=== PATIENT | female | born 2000 | race Native Hawaiian/Other Pacific Islander ===

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

== ENCOUNTER 2019-01-27 11:50 | Inpatient (IN) | payer OTHER ==
[~2019-01-27] VITALS: Ht 147.3 cm; Wt 37.6 kg
--- OUTSIDE RECORDS SUMMARY | ~2019-01-27 | XMS | Encounter Summary ---
Demographics + + + | Address | [address] | | | [place] [address] | + + + | Home Phone | | + + + | Preferred Language | Unknown | + + + | Marital Status | Single | + + + | Latter-Day Affiliation | Unknown | + + + | Race | or | + + + | Ethnic Group | Not or | + + + Author + + + | Author | [facility] | + + + | Organization | [facility] | + + + | Address | Unknown | + + + | Phone | Unavailable | + + + Support + + +---------+ + | Name | Relationship | Address | Phone | + + +---------+ + | Jolie Hudson | ECON | Unknown | Unavailable | + + +---------+ + Care Team Providers + +------+ + | Care Medical Records Director Name | Role | Phone | + +------+ + | No Pcp Per Patient | PCP | Unavailable | + +------+ + Reason for Referral PROC - Outpatient Surgery (Routine) +--------+---------+ + + + + | Status | Reason | Specialty | Diagnoses / | Referred By | Referred To | | | | | Procedures | Contact | Contact | +--------+---------+ + + + + | Closed | Coded | Otolaryngolog | Diagnoses | Hullar, | Hullar, | | | | y | Perforation | Gareth E, | Gareth E, MD | | | | | of both | MD [address] | [address] | | | | | tympanic | [address] | [address] | | | | | membranes | [address] | Rd | | | | | Conductive | [place] | | | | | hearing | [phone] | [address] | | | | | loss, | Phone: | Phone: | | | | | bilateral | [phone] | [phone] | | | | | Other | Fax: | Fax: | | | | | specified | [phone] | [phone] | | | | | disorders of [...] | | | | | | | TELEGRAPH REPEATER INSTALLER | | | | | | | [place] | | | | | | | TYMPANOPLAST | | | | | | | Y [place] | | | | | | | TYMPANOPLAS/ | | | | | | | ANTROTOMY | | | | | | | [place] | | | | | | | TYMPANOPLAS/ | | | | | | | MASTOIDEC,IN | | | | | | | TACT WALL | | | | | | | [place] | | | | | | | TYMPANOPLAST | | | | | | | Y,REBLD | | | | | | | OSSIC | | | | | | | CHAIN+PROS | | | | | | | [place] | | | | | | | TYMPANOPLAS/ | | | | | | | ANTROT,REBLD | | | | | | | OSSIC+PROST | | | | | | | [place] | | | | | | | TYMPANOPLAS/ | | | | | | | MASTOID,INTC | | | | | | | T WALL,REBLD | | | | | | | [place] EAR | | | | | | | CARTILAGE | | | | | | | GRAFT TO | | | | | | | FACE [place] | | | | | | | APPL SKIN | | | | | | | GRFT FACE | | | | | | | HNDS FT TO | | | | | | | 100 SQ CM | | | | | | | FIRST 25 S* | | | | | | | [place] CREATE | | | | | | | EARDRUM | | | | | | | OPENING,GEN | | | | | | | ANESTH 90 G | | | +--------+---------+ + + + + Reason for Visit + + + | Reason | Comments | + + + | Ear problem | new pt here for ear eval | + + + Benefits Check (Routine) +--------+--------+ + + + + | Status | Reason | Specialty | Diagnoses / | Referred By | Referred To | | | | | Procedures | Contact | Contact | +--------+--------+ + + + + | Closed | | Otolaryngolog | Diagnoses | Kentrell, | Agapito, | | | | y | Acute | MD Reyes | Gareth Arevalo MD | | | | | mastoiditis | [address] | | | | | with other | Nakul Gan | [address] | | | | | complication | [place], | Rd | | | | | s, bilateral | [place] [address] | [facility], [place] | | | | | Central | Phone: | [phone] | | | | | perforation | [phone] | Phone: | | | | | of tympanic | Fax: | [phone] | | | | | membrane, | [phone] | Fax: | | | | | bilateral | | [phone] | | | | | Mixed | [...] | | ENT OTOLOGY | | | +--------+--------+ + + + + Encounter Details +--------+---------+ [...] [address] | [facility] | (Primary Dx); | | | | [facility] | [place], [place] | Conductive hearing | | | | Mailcode: PV01 | [address] | loss, bilateral | | | | [facility] | [phone] | | | | | [place], [place] | | | | | | [address] | | | | | | [phone] | | | +--------+---------+ + + + [...] on file | | + + + + + + + | Job Start Date | Occupation | Industry | + + + + | Not on file | Not on file | Not on file | + + + + + + + + | Travel History | Travel Start | Travel End | + + + + + + | No recent travel history available. | + + documented as of this encounter Last Filed Vital Signs + + + + + | Vital Sign | Reading | Time Taken | Comments | + + + + + | Blood Pressure | - | - | | + + + + + | Pulse | - | - | | + + + + + | Temperature | - | - | | + + + + + | Respiratory Rate | - | - | | + + + + + | Oxygen Saturation | - | - | | + + + + + | Inhaled Oxygen | - | - | | | Concentration | | | | + + + + + | Weight | 39 kg (86 lb) | 10/17/2017 9:06 AM | | | | | PST | | + + + + + | Height | - | - | | + + + + + | Body Mass Index | - | - | | + + + + + documented in this encounter Progress Notes Gareth Farris MD - 10/17/2017 9:30 AM PSTFormatting of this note might be different f rom the original. Division of Otology, Neurotology, and Skull Base Surgery Department of Otolaryngology/Head and Neck Surgery [facility] Patient: Milly Kelley Referring Provider: No Referring Provider Per Patient Author: GARETH FARRIS MD Consultation Date: 10/17/2017 REASON FOR VISIT: Bilateral hearing loss. HISTORY OF PRESENT ILLNESS: History of leukemia with full-body radiation. Had ear infecti ons and tubes starting at that time, . Hearing worse on the right. PAST MEDICAL HISTORY: Past Medical History: Diagnosis Date ALL (acute lymphoid leukemia) in remission ([facility]) ALL (acute lymphoid leukemia) in remission ([facility]) Cataracts, bilateral Conductive hearing loss DM (diabetes mellitus) ([facility]) Eustachian tube disorder, bilateral Radiation adverse effect [...] Program Department of Otolaryngology-Head and Neck Surgery [address], [address] [address] tel: [phone] fax: [phone] [email or web address] documented in this encounter Plan of Treatment Not on filedocumented as of this encounter Procedures + +--------+ + + + | Procedure Name | Priori | Date/Time | Associated Diagnosis | Comments | | | ty | | | | + +--------+ + + + | [place] EAR MICROSCOPY | Routin | 10/18/2017 | Perforation of | | | EXAMINATION | e | 1:04 PM | both tympanic | | | | | PST | membranes | | | | | | Conductive hearing | | | | | | loss, bilateral | | + +--------+ + + + documented in this encounter Visit Diagnoses + + | Diagnosis | + + | Perforation of both tympanic membranes - Primary Perforation of tympanic membrane, | | unspecified | + + | Conductive hearing loss, bilateral | + + documented in this encounter"
--- OUTSIDE RECORDS SUMMARY | ~2019-01-27 | XMS | Encounter Summary ---
Demographics + + + | Address | [address] | | | [place] [address] | + + + | Home Phone | | + + + | Preferred Language | Unknown | + + + | Marital Status | Single | + + + | Roman Catholic Affiliation | Unknown | + + + | Race | or | + + + | Ethnic Group | Not or | + + + Author + + + | Author | [facility] | + + + | Organization | [facility] | + + + | Address | Unknown | + + + | Phone | Unavailable | + + + Support + + +---------+ + | Name | Relationship | Address | Phone | + + +---------+ + | Jolie Hudson | ECON | Unknown | Unavailable | + + +---------+ + Care Team Providers + +------+ + | Care Industrial Electrical Engineer Name | Role | Phone | + +------+ + | No Pcp Per Patient | PCP | Unavailable | + +------+ + Encounter Details +--------+ + + + + | Date | Type | Department | Care Team | Description | +--------+ + + + + | 09/18/ | Documentati | Otolaryngology | Otology, Ent [address] | | | 2018 | on | Otology Services at | [facility] | | | | | PPV [address] [facility] | Road [place], [place] | | | | | [address] | [address] | | | | | Mailcode: [address] | | | | | | [facility] | | | | | | [place], [place] | | | | | | [address] | | | | | | [phone] | | | +--------+ + + + + Social History + +-------+ +--------+------+ | Tobacco Use | Types | Packs/Day | Years | Date | | | | | Used | | + +-------+ +--------+------+ | Never Assessed | | | | | + +-------+ +--------+------+ + + + | Sex Assigned at [...] + + documented as of this encounter Plan of Treatment Not on filedocumented as of this encounter Visit Diagnoses Not on filedocumented in this encounter"
--- OUTSIDE RECORDS SUMMARY | ~2019-01-27 | XMS | Encounter Summary ---
Demographics + + + | Address | [address] | | | [place] [address] | + + + | Home Phone | | + + + | Preferred Language | Unknown | + + + | Marital Status | Single | + + + | Mosque Affiliation | Unknown | + + + | Race | or | + + + | Ethnic Group | Not or | + + + Author + + + | Author | [facility] | + + + | Organization | [facility] | + + + | Address | Unknown | + + + | Phone | Unavailable | + + + Support + + +---------+ + | Name | Relationship | Address | Phone | + + +---------+ + | Jolie Hudson | ECON | Unknown | Unavailable | + + +---------+ + Care Team Providers + +------+ + | Care Microsoft Dynamics Ax Developer Name | Role | Phone | + +------+ + | No Pcp Per Patient | PCP | Unavailable | + +------+ + Encounter Details +--------+ + + + + | Date | Type | Department | Care Team | Description | +--------+ + + + + | 08/14/ | Document-Sc | Health Information | Unknown . | | | 2017 | anned | Services [address] | | | | | | [address] | | | | | | Road Mailcode: | | | | | | [address] [place] [address] | | | | | | [facility] | | | | | | [place], [place] | | | | | | [address] | | | | | | [phone] | | | +--------+ + + + [...] | + +--------+ + + + | RADIOLOGY | | 08/14/2017 | | Results for this | | | | 12:00 AM | | procedure are in the | | | | PST | | results section. | + +--------+ + + + documented in this encounter Results RADIOLOGY (08/14/2017 12:00 AM PST) + + + | Narrative | Performed At | + + + | | | + + + documented in this encounter Visit Diagnoses Not on filedocumented in this encounter"
--- OUTSIDE RECORDS SUMMARY | ~2019-01-27 | XMS | Encounter Summary ---
Demographics + + + | Address | [address] | | | [place] [address] | + + + | Home Phone | | + + + | Preferred Language | Unknown | + + + | Marital Status | Single | + + + | Spiritism Affiliation | Unknown | + + + | Race | or | + + + | Ethnic Group | Not or | + + + Author + + + | Author | [facility] | + + + | Organization | [facility] | + + + | Address | Unknown | + + + | Phone | Unavailable | + + + Support + + +---------+ + | Name | Relationship | Address | Phone | + + +---------+ + | Jolie Hudson | ECON | Unknown | Unavailable | + + +---------+ + Care Team Providers + +------+ + | Care Nutrition Partner Name | Role | Phone | + +------+ + | No Pcp Per Patient | PCP | Unavailable | + +------+ + Encounter Details +--------+ + + + + | Date | Type | Department | Care Team | Description | +--------+ + + + + | 11/28/ | Document-Sc | Health Information | Unknown . | | | 2017 | anned | Services [address] | | | | | | [address] | | | | | | Road Mailcode: | | | | | | [address] [place] [address] | | | | | | [place] | | | | | | [place], [place] | | | | | | [address] | | | | | | [phone] | | | +--------+ + + + [...] + + + | RADIOLOGY | | 11/28/2016 | | Results for this | | | | 12:00 AM | | procedure are in the | | | | PDT | | results section. | + +--------+ + + + | RADIOLOGY | | 11/28/2016 | | Results for this | | | | 12:00 AM | | procedure are in the | | | | PDT | | results section. | + +--------+ + + + documented in this encounter Results RADIOLOGY (11/28/2016 12:00 AM PDT) + + + | Narrative | Performed At | + + + | | | + + + RADIOLOGY (11/28/2016 12:00 AM PDT) + + + | Narrative | Performed At | + + + | | | + + + documented in this encounter Visit Diagnoses Not on filedocumented in this encounter"
--- OUTSIDE RECORDS SUMMARY | ~2019-01-27 | XMS | Encounter Summary ---
Demographics + + + | Address | [address] | | | [place] [address] | + + + | Home Phone | | + + + | Preferred Language | Unknown | + + + | Marital Status | Single | + + + | Moravian Affiliation | Unknown | + + + | Race | or | + + + | Ethnic Group | Not or | + + + Author + + + | Author | [facility] | + + + | Organization | [facility] | + [...] Team Providers + +------+ + | Care Junior Art Director Name | Role | Phone | [...] | | 2017 | anned | Services [address] | | | | | | [address] | | | | | | Road Mailcode: | | | | | | [address] [place] [address] | | | | | | [facility] | | | | | | [place], [place] | | | | | | [address] | | | | | | [phone] | | | +--------+ + + + [...]
--- OUTSIDE RECORDS SUMMARY | ~2019-01-27 | XMS | Clinical Summary ---
Demographics + + + | Address | [address] | | | [place] [address] | + + + | Home Phone | | + + + | Preferred Language | Unknown | + + + | Marital Status | Single | + + + | Restorationist Affiliation | Unknown | + + + [...] Team Providers + +------+ + | Care Financial Report Service Sales Agent Name | Role | Phone | + +------+ + | No Pcp Per Patient | PP | Unavailable | + +------+ + Source Comments GABRIELLA is fully live on both [facility] and [facility] Allergies + + + + + [...] | + + + + + + Medications + + + +---------+------+------+-------+ | Medication | Sig | Dispensed | Refills | Star | End | Statu | | | | | | t | Date | s | | | | | | Date | | | + + + +---------+------+------+-------+ | HUMALOG KWIKPEN | inject 20 to [...] | ALL (acute lymphoid leukemia) in remission | | + + + Social History + +-------+ [...] recent travel history available. | + + Last Filed Vital Signs + [...] | | + + + + + Plan of Treatment + + + + + | Health Maintenance | Due Date | Last Done | Comments | + + + + + | Pneumococcal (Adult) | | | | | (1 of 3 - PCV13) | 8 | | | + + + + + | Influenza (Flu) | | | | | vaccination (Season | 9 | | | | Ended) | | | | + + + + + Results Not on filefrom Last 3 Months Insurance + +--------+ +--------+-------+---------+--------+ | Payer | Benefi | Subscriber | Effect | Phone | Address | Type | | | t Plan | ID | venkat | | | | | | / | | Dates | | | | | | Group | | | | | | + +--------+ +--------+-------+---------+--------+ | DELIVERY LEAD MEDICAID | DELIVERY LEAD | xxxxxxxx | | | | Medica | | | [place] | | [phone] | | | id | | | [place] | | esent | | | | + +--------+ +--------+-------+---------+--------+ + +--------+ +--------+ + + | Guarantor Name | Accoun | Relation to | Date | Phone | Billing Address | | | t Type | Patient | of | | | | | | | | | | + +--------+ +--------+ + + | Milly Kelley | Person | Self [birth year] | [address] | | | al/Fam | | 1999 | [phone] | [address] [place] | | | jackie | | | [address] (Home) | [address] | + +--------+ +--------+ + +"
--- OUTSIDE RECORDS SUMMARY | ~2019-01-27 | XMS | Clinical Summary ---
Demographics + + + | Address | [address] | | | [place] [address] | + + + | Home Phone | | + + + | Preferred Language | Unknown | + + + | Marital Status | Single | + + + | Shinto Affiliation | 1013 | + + + | Race | Unknown | + + + | Ethnic Group | Unknown | + + + Author + + + | Author | [facility] | | | and [place] | + + + | Organization | 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 | | | | | 18 | | + + + + + + | Penicillins | Hives | Low | 03/17/20 | | | | | | 14 | | + + + + + + | Sulfa Antibiotics | Hives, Shortness Of | High | 01/06/20 | Per mom Heather | | | Breath | | 18 | | + + + + + + | Insulin Degludec | Hives | Medium | 05/25/20 | Hives at injection | | | | | 18 | site | + + + + + + | Vancomycin | Other (See Comments) | | 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 | | | | | e | | (ADEKS) chewable | | | | | | | | tabletIndications: | | | | | | | | Recurrent | | | | | | | | pancreatitis | | | | | | | + + + +---------+------+------+-------+ | ergocalciferol | Take 1 capsule by | 30 | 0 | 04/3 | | Activ | | (VITAMIN D2) [id number] | mouth Once a week. | capsule | | 0/20 | | e | | units capsule | | | | 18 | | | + + + +---------+------+------+-------+ | fenofibrate | Take 1 tablet by | 30 | 0 | 04/2 | | Activ | | (LOFIBRA, TRIGLIDE) | mouth Daily. | tablet | | 6/20 | | e | | 160 mg tablet | | | | 18 | | | + + + +---------+------+------+-------+ | atorvaSTATin | Take 1 tablet by | 30 | 0 | 04/2 | | Activ | | (LIPITOR) 80 MG | mouth nightly. | tablet | | 5/20 | | e | | tablet | | | | 18 | | | + + + +---------+------+------+-------+ | ascorbic acid | Take 1 tablet by | 60 | 1 | 07/0 | | Activ | | (VITAMIN C) 500 MG | mouth 3 times daily. | tablet | | 4/20 | | e | | tablet | | | | 18 | | | + + + +---------+------+------+-------+ | cholecalciferol | Take 1 tablet by | 30 | 3 | 07/0 | | Activ | | (VITAMIN D-3) 2000 | mouth Daily. | tablet | | 5/20 | | e | | units TABS | | | | 18 | | | + + + +---------+------+------+-------+ | | Place 4 drops into | 30 mL | 0 | 07/0 | | Activ | | ciprofloxacin-dexame | the right ear 2 | | | 4/20 | | e | | thasone (CIPRODEX) | times daily. | | | 18 | | | | otic suspension | | | | | | | + + + +---------+------+------+-------+ | phenazopyridine | Take 1 tablet by | 30 | 0 | 07/0 | | Activ | | (PYRIDIUM) 200 mg | mouth 3 times daily | tablet | | 4/20 | | e | | tablet | as needed for | | | 18 | | | | | Urinary Symptoms. | | | | | | + + + +---------+------+------+-------+ | simethicone | Take 1 tablet by | 90 | 0 | 07/0 | | Activ | | (MYLICON) 80 mg | mouth 4 times daily | tablet | | 4/20 | | e | | chewable tablet | as needed for Gas. | | | 18 | | | + + + +---------+------+------+-------+ | atorvaSTATin | Take 1 tablet by | 30 | 0 | 07/0 | | Activ | | (LIPITOR) 80 MG | mouth nightly. | tablet | | 4/20 | | e | | tablet | | | | 18 | | | + + + +---------+------+------+-------+ | insulin detemir | Inject 20 Units | 15 mL | 0 | 07/0 | | Activ | | (LEVEMIR FLEXPEN) | under the skin | | | 4/20 | | e | | 100 units/mL | nightly. | | | 18 | | | | injection (pen) | | | | | | | + + + +---------+------+------+-------+ | insulin lispro | Inject 7 Units under | 15 mL | 0 | 07/0 | | Activ | | (HUMALOG KWIKPEN) | the skin 3 times | | | 4/20 | | e | | 100 units/mL | daily (before | | | 18 | | | | injection (pen) | meals). | | | | | | + + + +---------+------+------+-------+ | ONE TOUCH | by Does not apply | 100 | 11 | 07/0 | | Activ | | ULTRASOFT LANCETS | route 4 times daily. | each | | 4/20 | | e | | MISC | | | | 18 | | | + + + +---------+------+------+-------+ | glucose blood | ... | 100 | 0 | 07/0 | | Activ | | test strips strip | | each | | 4/20 | | e | | | | | | 18 | | | + + + +---------+------+------+-------+ | rosuvastatin | Take 10 mg by mouth | | 0 | | | Activ | | (CRESTOR) 10 mg | nightly. | | | | | e | | tablet | | | | | | | + + + +---------+------+------+-------+ | estradiol | Take 1 tablet by | 30 | 6 | 04/17 | 04/17 | Activ | | (ESTRACE) 1 mg | mouth Daily. | tablet | | 0/20 | 0/20 | e | | tabletIndications: | | | | 18 | 19 | | | Uncontrolled type 1 | [...] Noted Date | + + + | Diabetic ketoacidosis with coma associated with type 1 diabetes | 03/14/2018 | | mellitus | | + + + + + | Last Assessment & Plan: | + + + + + | History of acute pancreatitis | 03/14/2018 | + + + + + | Overview: recurrent; associated with elevated triglycerides | | Last Assessment & Plan: | + + + + + | Diabetic ketoacidosis without coma associated with type 1 | 01/05/2018 | | diabetes mellitus | | + + + | Abnormal renal function | 01/04/2018 | + + + | Acute pancreatitis | 01/03/2018 | + + + + + | Last Assessment & Plan: The patient has had 24 hours of | | severe abdominal pain with intractable nausea and vomiting. She | | has a history of recurrent pancreatitis and has been hospitalized | | a couple different times in the past for this. She is | | transferred from [facility] facility with elevated lipase of 3900. | | Her triglycerides are elevated at 13,000 after 4 dilutions. She | | has been transferred here for therapeutic apheresis and | | nephrology has been consulted. In the interim the patient will | | be vigorously IV fluid resuscitated. She's been placed on | | insulin drip. She will be kept nothing by mouth. Analgesia and | | antiemetics will be offered. I have also ordered a CT scan of | | the abdomen and pelvis for further characterization of the | | abdominal pain. | + + + + + | SIRS (systemic inflammatory response syndrome) | 01/03/2018 | + + + + + | Last Assessment & Plan: The patient meets qualifiers for | | systemic inflammatory response syndrome secondary to her | | pancreatitis. She is quite tachycardic and uncomfortable. Rule | | out definitive sepsis as able. Blood cultures and urine will be | | collected. | + + + + + | Noncompliance with therapeutic plan | 01/03/2018 | + + + + + | Last Assessment & Plan: Per note dictation by endocrinology | | the patient appears to be relatively noncompliant. I question | | whether there may be difficulty with comprehension of the | | therapeutic plan. Will order diabetic education while she is | | here again. | + + + + + | Hyponatremia | 01/03/2018 | + + + + + | Last Assessment & Plan: Hypovolemic hyponatremia related to | | dehydration and hyperglycemia. This appears relatively acute. | | Vigorous volume resuscitation will ensue. | + + + + + | Hypertriglyceridemia | 01/03/2018 | + + + + + | Last Assessment & Plan: | + + + + + | BLANK (acute kidney injury) | 01/03/2018 | + + + + + | Last Assessment & Plan: | + + + + + | Metabolic acidosis | 01/03/2018 | + + + | Vitamin D deficiency | 04/25/2014 | + + + + + | Last Assessment & Plan: Reinstitute vitamin D as she has been | | deficient in the past. Levels will also be reassessed. | + + + + + | Dyslipidemia | 03/24/2014 | + + + + + | Last Assessment & Plan: The patient has a long-standing | | history of dyslipidemia with elevated total cholesterol and | | elevated triglycerides. She was supposed to be taking Lipitor | | but is never filled this prescription. She was started on | | high-dose Lipitor here. We'll also add separate after she is | | starting to feel better. She will need dietary discussions | | ongoing. | + + + + + | Type I (juvenile type) diabetes mellitus without mention of | 03/17/2014 | | complication, uncontrolled | | + + + + + | Overview: ICD-10 Record update Last Assessment & Plan: | | Type I diabetic with poor compliance and hemoglobin A1c of 14. 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 | | Hemoglobin A1c has repeatedly been greater than 14. Please see | | endocrinology notes. Diabetic education will be ordered. | | Currently insulin drip will be instituted. | + + + + + | Recurrent pancreatitis | 03/17/2014 | + + + | Short stature | 03/17/2014 | + + + | Other anterior pituitary disorders | 03/17/2014 | + + + Encounters +--------+ + + + + | Date | Type | Specialty | Care Team | Description | +--------+ + + + + | 11/06/ | Telephone | | [place], | Diabetes | | 2019 | | | MD [facility] | | +--------+ + + + + from [...] | | | + +---+---+---+ + + +---------+ + | Alcohol Use | Drinks/We | oz/Week | Comments | | | ek | | | + + +---------+ + | No | | | | + + +---------+ + + + + | Sex Assigned at [...] + + + | Blood Pressure | 110/68 | 05/14/2018 1506 PDT | + + + + | Pulse | 100 | 05/14/20181505 PDT | + + + + | Temperature | 36 C (96.8 F) | 03/18/20181528 PDT | + + + + | Respiratory Rate | 18 | 03/18/20181528 PDT | + + + + | Oxygen Saturation | 98% | 03/18/20181528 PDT | + + + + | Inhaled Oxygen | - | - | | Concentration | | | + + + + | Weight | 39.8 kg (87 lb 12.8 | 05/14/20181505 PDT | | | oz) | | + + + + | Height | 151 cm (4' 11.45") | 05/14/2018 1506 PDT | + + + + | Body Mass Index | 17.47 | 05/14/20186 PDT | + + + + Plan of Treatment +--------+---------+ + + + | Date | Type | Specialty | Care Team | Description | +--------+---------+ + + + | 02/04/ | Office | | Mario Mathur, | | | 2018 | Visit | | [place] [address] | | | | | | [place] | | | | | | [address] | | | | | | | | +--------+---------+ + + + | 02/04/ | Office | | | | | 2019 | Visit | | | | +--------+---------+ + + + + + + + + | Health Maintenance | Due Date | Last Done | Comments | + + + + + | Well Child Check | | | | | | 2 | | | + + + + + | Vaccine: HPV (1 - | | | | | Female 3-dose | 4 | | | | series) | | | | + + + + + | Diabetic Eye Exam | | | | | | 7 | | | + + + + + | Diabetic Foot Exam | | | | | | 7 | | | + + + + + | Vaccine: | | | | | Dtap/Tdap/Td (1 - | 8 | | | | Tdap) | | | | + + + + + | Vaccine: | | | | | Pneumococcal 19-64 | 8 | | | | (PPSV23 only) Medium | | | | | Risk (1 of 1 - | | | | | PPSV23) | | | | + + + + + | Hemoglobin A1c | | 05/14/2018, 01/03/2018, | | | Screening | 8 | 07/17/2017, Additional history | | | | | exists | | + + + + + | Vaccine: Influenza | | | | | (Season Ended) | 9 | | | + + + + + Results Not on filefrom Last 3 Months Insurance + +--------+ +--------+ +---------+--------+ | Payer | Benefi | Subscriber | Effect | Phone | Address | Type | | | t Plan | ID | venkat | | | | | | / | | Dates | | | | | | Group | | | | | | + +--------+ +--------+ +---------+--------+ | [employer] | MODA | [id number] | | [phone] | | Medica | | MEDICAID HMO | HEALTH | | 018-Pr | 1 | | id | | | MDCD | | esent | | | | | | [place]MO [place] | | | | | | + +--------+ +--------+ +---------+--------+ | [employer] | IHS | [id number] | | | | Indemn | | SERVICE | YELLOW | | 999-Pr | | | ity | | | HAWK | | esent | | | | + +--------+ +--------+ +---------+--------+ + +--------+ +--------+ + + | Guarantor Name | Accoun | Relation to | Date | Phone | Billing Address | | | t Type | Patient | of | | | | | | | | | | + +--------+ +--------+ + + | HEATHER HUASIN | Person | Mother | [birth year] | [address] | | | al/Fam | | 1979 | [phone] | [address] [place] | | | jackie | | | 5 (Home) | [address] | + +--------+ +--------+ + + Advance Directives Patient has advance care planning documents, and code status on file. For more information, please contact:[facility] [place] [place] [address] + + + + + | Code Status | Date | Date | Comments | | | Activated | Inactivated | | + + + + + | Full Code | 03/17/2018 | 03/18/2018 | | | | 12:12 | 19:32 | | + + + + + + + + +---+ | | | | | + + + +---+ | Full Code | 03/14/2018 | 03/17/2018 | | | by default | 20:51 | 12:12 | | | - TBD | | | | + + + +---+ + + + +---+ | | | | | + + + +---+ | Full Code | 01/03/2018 | 01/07/2018 | | | | 16:31 | 13:27 | | + + + +---+
--- OUTSIDE RECORDS SUMMARY | ~2019-01-27 | XMS | Encounter Summary ---
Demographics + + + | Address | [address] | | | [place] [address] | + + + | Home Phone | | + + + | Preferred Language | Unknown | + + + | Marital Status | Single | + + + | Anabaptist Affiliation | Unknown | + + + | Race | or | + + + | Ethnic Group | Not or | + + + Author + + + | Author | [facility] | + + + | Organization | [facility] | + [...] Team Providers + +------+ + | Care Dowel Pin Man Name | Role | Phone | + [...] | | 2017 | anned | Services [address] | | | | | | [address] [place] | | | | | | Road Mailcode: | | | | | | [address] [place] [address] | | | | | | [facility] | | | | | | [place], [place] | | | | | | [address] | | | | | | [phone] | | | +--------+ + + + [...]
--- OUTSIDE RECORDS SUMMARY | ~2019-01-27 | XMS | Encounter Summary ---
Demographics + + + | Address | [address] | | | [place] [address] | + + + | Home Phone | | + + + | Preferred Language | Unknown | + + + | Marital Status | Single | + + + | Confucianist Affiliation | Unknown | + + + | Race | or | + + + | Ethnic Group | Not or | + + + Author + + + | Author | [facility] | + + + | Organization | [facility] | + [...] Team Providers + +------+ + | Care Clamshell Operator Name | Role | Phone | [...] on | Otology Services at | [facility] | | | | | PPV [address] [facility] | Road [place], [place] | | | | | [facility] [address] | [address] | | | | | Mailcode: PV01 | | | | | | [facility] | | | | | | [place], [place] | | | | | | [address] | | | | | | [phone] | | | +--------+ + + + [...]
--- OUTSIDE RECORDS SUMMARY | ~2019-01-27 | XMS | Encounter Summary ---
Demographics + + + | Address | [address] | | | [place] [address] | + + + | Home Phone | | + + + | Preferred Language | Unknown | + + + | Marital Status | Single | + + + | Voodoo Affiliation | Unknown | + + + | Race | or | + + + | Ethnic Group | Not or | + + + Author + + + | Author | [facility] | + + + | Organization | [facility] | + [...] Team Providers + +------+ + | Care Wagon Washer Name | Role | Phone | + [...] | | | | | hearing | [phone] | [address] | | | | | loss, | Phone: | Phone: | | | | | bilateral | [phone] | [phone] | | | | | Other | Fax: | Fax: | | | | | specified | [phone] | [phone] | | | | | disorders of [...] | | | | | | | BANQUET [place] COOK | | | | | | | [place] | | | | | | | TYMPANOPLAST | | | | | | | Y [place] | | | | | | | TYMPANOPLAS/ | | | | | | | ANTROTOMY | | | | | | | [place] | | | | | | | TYMPANOPLAS/ | | | | | | | MASTOIDEC,IN | | | | | | | TACT WALL | | | | | | | [place] | | | | | | | TYMPANOPLAST | | | | | | | Y,REBLD | | | | | | | OSSIC | | | | | | | CHAIN+PROS | | | | | | | [place] | | | | | | | TYMPANOPLAS/ | | | | | | | ANTROT,REBLD | | | | | | | OSSIC+PROST | | | | | | | [place] | | | | | | | TYMPANOPLAS/ | | | | | | | MASTOID,INTC | | | | | | | T WALL,REBLD | | | | | | | NC EAR | | | | | | | CARTILAGE | | | | | | | GRAFT TO | | | | | | | FACE NC | | | | | | | APPL SKIN | | | | | | | GRFT FACE | | | | | | | HNDS FT TO | | | | | | | 100 SQ CM | | | | | | | FIRST 25 S* | | | | | | | NC CREATE | | | | | | [...] | | | | | complication | [place], | Rd | | | | | s, bilateral | [place] [address] | [facility], [place] | | | | | Central | Phone: | [phone] | | | | | perforation | [phone] | Phone: | | | | | of tympanic | Fax: | [phone] | | | | | membrane, | [phone] | Fax: | | | | | bilateral | | [phone] | | | | | Mixed | [...] | PPV [address] | [facility] | (Primary Dx); | | | | [facility] | [place], [place] | Conductive hearing | | | | Mailcode: PV01 | [phone] | loss, bilateral | | | | [facility] | [phone] | | | | | [place], [place] | | | | | | [address] | | | | | | [phone] | | | +--------+---------+ + + + [...] Surgery Department of Otolaryngology/Head and Neck Surgery [facility] Patient: Milly Kelley Referring Provider: [...] (acute lymphoid leukemia) in remission ([facility]) ALL (acute lymphoid leukemia) in remission ([facility]) Cataracts, bilateral Conductive hearing loss DM (diabetes mellitus) ([facility]) Eustachian tube disorder, bilateral Radiation [...] Program Department of Otolaryngology-Head and Neck Surgery [address], [address] [address] tel: [phone] fax: [phone] [email or web address] documented in this encounter Plan of Treatment Not on filedocumented as of this encounter Procedures + +--------+ + + + | Procedure Name | Priori | Date/Time | Associated Diagnosis | Comments | | | ty | | | | + +--------+ + + + | NC EAR MICROSCOPY | Routin | 10/18/2017 | [...]
--- OUTSIDE RECORDS SUMMARY | ~2019-01-27 | XMS | Encounter Summary ---
Demographics + + + | Address | [address] | | | [place] [address] | + + + | Home Phone | | + + + | Preferred Language | Unknown | + + + | Marital Status | Single | + + + | Mandaeism Affiliation | 1013 | + + + | Race | Unknown | + + + | Ethnic Group | Unknown | + + + Author + + + | Author | [facility] | | | and [place] | + + + | Organization | [facility] | | | and [place] | + + + | Address | Unknown | + + + | Phone | Unavailable | + + + Support + + + + + | Name | Relationship | Address | Phone | + + + + + | Nino Vasquez | [place] | [address] | | | | | [place] | | | | | [address] | | + + + + + Care Team Providers + +------+ + | Care President Educational Institution Name | Role | Phone | + +------+ + | Kashif Saldana DO | PCP | | + +------+ + Reason for Visit + + + | Reason | Comments | + + + | Diabetes | | + + + Encounter Details +--------+ + + + + | Date | Type | Department | Care Team | Description | +--------+ + + + + | 11/06/ | Telephone | Pediatric | [place], | Diabetes | | 2019 | | Endocrinology & | MD [facility] [address] | | | | Diabetes [address] | | | | | [address] | [place] [address] | | | | | [place], [place] | [phone] | | | | | [address] | | | | | | [phone] | | | +--------+ + + + [...] + + documented as of this encounter Functional Status + + + + | Functional Status | Response | Date of Assessment | + + + + | Are you deaf or do you have serious | No | 03/16/2018 | | difficulty hearing? | | | + + + + | Are you blind or do you have serious | No | 03/16/2018 | | difficulty seeing, even when wearing | | | | glasses? | | | + + + + | Do you have serious difficulty walking or | No | 03/16/2018 | | climbing stairs? (5 years old or older) | | | + + + + | Do you have difficulty dressing or bathing? | No | 03/16/2018 | | (5 years old or older) | | | + + + + | Because of a physical, mental, or emotional | Yes | 03/16/2018 | | condition, do you have difficulty doing | | | | errands alone such as visiting a doctor's | | | | office or shopping? [15 years old or | | | | older)] | | | + + + + + + + + | Cognitive Status | Response | Date of Assessment | + + + + | Because of a physical, mental, or emotional | No | 03/16/2018 | | condition, do you have serious difficulty | | | | concentrating, remembering, or making | | | | decisions? (5 years old or older) | | | + + + + documented as of this encounter Plan of Treatment +--------+---------+ + + + | Date | Type | Specialty | Care Team | Description | +--------+---------+ + + + | 02/04/ | Office | Endocrinology | Mario Mathur, | | | 2018 | Visit | | [place] [address] | | | | | | [place] | | | | | | [address] | | | | | | | | +--------+---------+ + + + | 02/04/ | Office | Endocrinology | | | | 2019 | Visit | | | | +--------+---------+ + + + documented as of this encounter Visit Diagnoses Not on filedocumented in this encounter"
--- OUTSIDE RECORDS SUMMARY | ~2019-01-27 | XMS | Encounter Summary ---
Demographics + + + | Address | [address] | | | [place] [address] | + + + | Home Phone | | + + + | Preferred Language | Unknown | + + + | Marital Status | Single | + + + | Episcopalian Affiliation | Unknown | + + + | Race | or | + + + | Ethnic Group | Not or | + + + Author + + + | Author | [facility] | + + + | Organization | [facility] | + + + | Address | Unknown | + + + | Phone | Unavailable | + + + Support + + +---------+ + | Name | Relationship | Address | Phone | + + +---------+ + | Jolei Hudson | ECON | Unknown | Unavailable | + + +---------+ + Care Team Providers + +------+ + | Care Reel Film Inspector Name | Role | Phone | + [...] on | Otology Services at | [facility] | | | | | P[facility] [address] [facility] | Road [place], [place] | | | | | [facility] [address] [address] | [address] | | | | | Mailcode: PV01 | | | | | | [facility] | | | | | | [place], [place] | | | | | | [address] | | | | | | [phone] | | | +--------+ + + + [...]
--- OUTSIDE RECORDS SUMMARY | ~2019-01-27 | XMS | Encounter Summary ---
Demographics + + + | Address | [address] | | | [place] [address] | + + + | Home Phone | | + + + | Preferred Language | Unknown | + + + | Marital Status | Single | + + + | Sikh Affiliation | Unknown | + + + | Race | or | + + + | Ethnic Group | Not or | + + + Author + + + | Author | [facility] | + + + | Organization | [facility] | + + [...] Team Providers + +------+ + | Care Birthing Nurse Name | Role | Phone | + [...] | | 2017 | anned | Services [address] | | | | | | [address] | | | | | | Road Mailcode: | | | | | | [address] [place] [address] | | | | | | [facility] | | | | | | [place], [place] | | | | | | [address] | | | | | | [phone] | | | +--------+ + + + [...]
--- OUTSIDE RECORDS SUMMARY | ~2019-01-27 | XMS | Encounter Summary ---
Demographics + + + | Address | [address] | | | [place] [address] | + + + | Home Phone [...] + + | Author | [facility] | + + + | Organization | [facility] | + + + | Address | Unknown | + + + | Phone | Unavailable | + + + Support + + +---------+ + | Name | Relationship | Address | Phone | + + +---------+ + | Jolie Hudson | ECON | Unknown | Unavailable | + + +---------+ + Care Team Providers + +------+ + | Care Hand Etcher Helper Name | Role | Phone | [...] | | | | | hearing | [phone] | [phone] | | | | | loss, | Phone: | Phone: | | | | | bilateral | [phone] | [phone] | | | | | Other | Fax: | Fax: | | | | | specified | [phone] | [phone] | | | | | disorders of [...] | | | | | | | ARTIFICIAL LEATHER CALENDER OPERATOR | | | | | | | [...] | | | | | complication | [place], | Rd | | | | | s, bilateral | [place] [address] | [facility], [place] | | | | | Central | Phone: | [phone] | | | | | perforation | [phone] | Phone: | | | | | of tympanic | Fax: | [phone] | | | | | membrane, | [phone] | Fax: | | | | | bilateral | | [phone] | | | | | Mixed | [...] | [facility] [address] | [facility] | (Primary Dx); | | | | [facility] | [place], [place] | Conductive hearing | | | | Mailcode: PV01 | [phone] | loss, bilateral | | | | [facility] | [phone] | | | | | [place], [place] | | | | | | [address] | | | | | | [phone] | | | +--------+---------+ + + + [...] Surgery Department of Otolaryngology/Head and Neck Surgery [facility] Patient: Milly Kelley Referring Provider: [...] Program Department of Otolaryngology-Head and Neck Surgery [address], [address] [address] tel: [phone] fax: [phone] [email or web address] documented in this encounter Plan of Treatment [...]
--- OUTSIDE RECORDS SUMMARY | ~2019-01-27 | XMS | Encounter Summary ---
Demographics + + + | Address | [address] | | | [place] [address] | + + + | Home Phone | | + + + | Preferred Language | Unknown | + + + | Marital Status | Single | + + + | Mu-Ism Affiliation | 1013 | + + + | Race | Unknown | + + + | Ethnic Group | Unknown | + + + Author + + + | Author | [facility] | | | and [place] | + + + | Organization | [facility] | | | and [place] | + + + | Address | Unknown | + + + | Phone | Unavailable | + + + Support + + + + + | Name | Relationship | Address | Phone | + + + + + | Nino Vasquez | [place] | [address] | | | | | [place] | | | | | [address] | | + + + + + Care Team Providers + +------+ + | Care Coil Winding Machines Set Up Mechanic Name | Role | Phone | + [...] | [address] | [place] [address] | | | | | [place], [place] | [phone] | | | | | [address] | | | | | | [phone] | | | +--------+ + + + [...] [place] | | | | | | [address] | | | | | | | | +--------+---------+ + + + | 02/04/ | Office | Endocrinology | | | | 2019 | Visit | | | | +--------+---------+ + + + documented as of this encounter Visit Diagnoses Not on filedocumented in this encounter"
--- OUTSIDE RECORDS SUMMARY | ~2019-01-27 | XMS | Clinical Summary ---
Demographics + + + | Address | [address] | | | [place] [address] | + + + | Home Phone | | + + + | Preferred Language | Unknown | + + + | Marital Status | Single | + + + | Zoroastrianism Affiliation | 1013 | + + + | Race | Unknown | + + + | Ethnic Group | Unknown | + + + Author + + + | Author | [facility] | | | and [place] | + + + | Organization | [facility] | | | and [place] | + + + | Address | Unknown | + + + | Phone | Unavailable | + + + Support + + + + + | Name | Relationship | Address | Phone | + + + + + | Nino Vasquez | [place] | [address] | | | | | [place] | | | | | [address] | | + + + + + Care Team Providers + +------+ + | Care Rollway Man Name | Role | Phone | [...] | | Activ | | (VITAMIN D2) 49080 | mouth Once a week. | capsule [...] this. She is | | transferred from [facility] facility with elevated lipase of 3900. | [...] [place] | | | | | | [address] | | | | | | | [...] | [employer] | MODA | [id number] | | [phone] | | Medica | | MEDICAID HMO | HEALTH | | 018-Pr | 1 | | id | | | MDCD | | esent | | | | | | [place]MO [place] | | | | | | + +--------+ +--------+ +---------+--------+ | [facility] | IHS | [id number] | | | | Indemn | | [...] + +--------+ +--------+ + + | HEATHER HUSAIN | Person | Mother | [birth year] | [address] | | | al/Fam | | 1979 | [phone] | [address] [place] | | | jackie | | | 5 (Home) | [address] | + +--------+ +--------+ + + Advance Directives Patient has advance care planning documents, and code status on file. For more information, please contact:[facility] vane [place] [address] + + + + + | Code [...]
--- OUTSIDE RECORDS SUMMARY | ~2019-01-27 | XMS | Clinical Summary ---
Demographics + + + | Address | [address] | | | [place] [address] | + + + | Home Phone | | + + + | Preferred Language | Unknown | + + + | Marital Status | Single | + + + | Jehovah'S Witness Affiliation | Unknown | + + + [...] Team Providers + +------+ + | Care Home Service Technician Name | Role | Phone | + +------+ + | No Pcp Per Patient | PP | Unavailable | + +------+ + Source Comments GABRIELLA is fully live on both [facility] and [facility] Allergies + + + [...] | | | + +--------+ +--------+-------+---------+--------+ | DIRECTOR OF PUBLIC RELATIONS MEDICAID | DIRECTOR OF PUBLIC RELATIONS | xxxxxxxx | | | | Medica [...] Person | Self | [birth year] | [address] | | | al/Fam | | 1999 | [phone] | [address] [place] | | | jackie | | | 5 (Home) | [address] | + +--------+ +--------+ + +"
--- OUTSIDE RECORDS SUMMARY | ~2019-01-27 | XMS | Encounter Summary ---
Demographics + + + | Address | [address] | | | [place] [address] | + + + | Home Phone | | + + + | Preferred Language | Unknown | + + + | Marital Status | Single | + + + | Catholic Affiliation | Unknown | + + + | Race | or | + + + | Ethnic Group | Not or | + + + Author + + + | Author | [facility] | + + + | Organization | [facility] | + + + | Address | Unknown | + + + | Phone | Unavailable | + + + Support + + +---------+ + | Name | Relationship | Address | Phone | + + +---------+ + | Jolie Hudson | ECON | Unknown | Unavailable | + + +---------+ + Care Team Providers + +------+ + | Care Instrument/Control Technician Name | Role | Phone | [...] | | 2017 | anned | Services [address] | | | | | | [place] | | | | | | Road Mailcode: | | | | | | [address] [place] [address] | | | | | | [facility] | | | | | | [place], [place] | | | | | | [address] | | | | | | [phone] | | | +--------+ + + + [...]
--- OUTSIDE RECORDS SUMMARY | ~2019-01-27 | XMS | Clinical Summary ---
Demographics + + + | Address | [address] | | | [place] [address] | + + + | Home Phone | | + + + | Preferred Language | Unknown | + + + | Marital Status | Single | + + + | Gnosticism Affiliation | 1013 | + + + | Race | Unknown | + + + | Ethnic Group | Unknown | + + + Author + + + | Author | [facility] | | | and [place] | + + + | Organization | [facility] | | | and [place] | + + + | Address | Unknown | + + + | Phone | Unavailable | + + + Support + + + + + | Name | Relationship | Address | Phone | + + + + + | Nino Vasquez | [place] | [address] | | | | | [place] | | | | | [address] | | + + + + + Care Team Providers + +------+ + | Care Technical Buyer Name | Role | Phone | + [...] | | Activ | | (VITAMIN D2) 85148 | mouth Once a week. | capsule [...] this. She is | | transferred from [facility] facility with elevated lipase of 3900. | [...] [place] | | | | | | [address] | | | | | | | [...] | [employer] | MODA | [id number] | | [phone] | | Medica | | MEDICAID HMO | HEALTH | | 018-Pr | 1 | | id | | | MDCD | | esent | | | | | | HMO [place] | | | | | | + +--------+ +--------+ +---------+--------+ | [facility] | IHS | [id number] | | | | Indemn | | [...] Person | Mother | [birth year] | | [address] | | | al/Fam | | 1979 | [phone] | [address] [place] | | | jackie | | | 5 (Home) | [address] | + +--------+ +--------+ + + Advance Directives Patient has advance care planning documents, and code status on file. For more information, please contact:[facility] vane [place] [address] + + + + + | Code [...]
--- OUTSIDE RECORDS SUMMARY | ~2019-01-27 | XMS | Clinical Summary ---
Demographics + + + | Address | [address] | | | [place] [address] | + + + | Home Phone [...] Team Providers + +------+ + | Care Electronic Equipment Repairer Name | Role | Phone | + +------+ + | No Pcp Per Patient | PP | Unavailable | + +------+ + Source Comments GABRIELLA is fully live on both [facility] Allergies + + + + + [...] | | | + +--------+ +--------+-------+---------+--------+ | [employer] | [employer] | xxxxxxxx | | | | Medica [...] Person | Self | [birth year] | | [address] | | | al/Fam | | 1999 | [phone] | [address] [place] | | | jackie | | | 5 (Home) | [address] | + +--------+ +--------+ + +"
--- OUTSIDE RECORDS SUMMARY | ~2019-01-27 | XMS | Encounter Summary ---
Demographics + + + | Address | [address] | | | [place] [address] | + + + | Home Phone | | + + + | Preferred Language | Unknown | + + + | Marital Status | Single | + + + | Confucianist Affiliation | 1013 | + + + | Race | Unknown | + + + | Ethnic Group | Unknown | + + + Author + + + | Author | [facility] | | | and [place] | + + + | Organization | [facility] | | | and [place] | + + + | Address | Unknown | + + + | Phone | Unavailable | + + + Support + + + + + | Name | Relationship | Address | Phone | + + + + + | Nino Vasquez | [place] | [address] | | | | | [place] | | | | | [address] | | + + + + + Care Team Providers + +------+ + | Care Floorworker Name | Role | Phone | + [...] | [address] | [place] [address] | | | | | [place], [place] | [phone] | | | | | [address] | | | | | | [phone] | | | +--------+ + + + [...] [place] | | | | | | [address] | | | | | | | | +--------+---------+ + + + | 02/04/ | Office | Endocrinology | | | | 2019 | Visit | | | | +--------+---------+ + + + documented as of this encounter Visit Diagnoses Not on filedocumented in this encounter"
[~2019-01-27 11:50] MED LIST changes: +CRESTOR10 MG PO; +FENOFIBRATE160 M1 PO; +FISH OIL 1,0001 EAC2 PO; -HUMALOG100 UNIT/2; +HUMALOG100 UNIT/2 SUB-Q; +LEVEMIR100 UNIT/1 SUB-Q; +ZOFRAN4 MG PO
--- NOTE | 2019-01-27 15:28 | NUR ---
PT ARRIVED TO THE UNIT C/O PAIN IN HER LEFT ARM IV SITE R/T THE POTASSIUM IV RUNNING. DECREASED THE K+ RIDER DRIP TO 75MLS/HR AND THEN PLACED THE FLUIDED TO RUN IN PRIMARY IV LINE TO HELP DECREASE THE PAIN WITH INFUSION. PT DENIES PAIN AT THIS TIME. PT DOES HAVE CLEAR FLUID DRAINING FROM HER RIGHT EAR AT THIS TIME.
--- NOTE | 2019-01-27 16:15 | NUR ---
DR SMILEY WAS IN THE DEPARTMENT AND WE DISCUSSED THE INSULIN DRIP. WE ARE TO USE THE INSULIN DRIP CHART TO TRITATE THE DRIP. WHEN PT CBG IS LESS THAN 200 CHANGE IV FLUIDS TO D5LR AT 125MLS/HR. STARTED A 500MLS BOLUS OF LR AND WILL CHANGE FLUIDS AT THIS TIME TO LR AT 125MLS/HR TILL CBG IS LESS THAN 200.
--- NOTE | 2019-01-27 16:44 | NUR ---
PT APPEARS TO BE RESTING INBETWEEN Q 1 HOUR CGB NEEDED FOR THE INSULIN DRIP. IT REMAINS AT 4.2 UNITS/HR PER INSULIN SCALE CHART. FAMILY REMAINS AT THE BEDSIDE. PT WAS WANTING ICE CHIPS EVEN AFTER SHE HAD EMINES OF ABOUT 50MLS.
--- NOTE | 2019-01-27 17:19 | NUR ---
LAB HERE TO OBTAIN SAMPLE. PT MOTHER IS HERE ALSO AT THIS TIME. AND STONEMASON SUPERVISOR ORDER PT SOME JELLO AND SOME PUDDING ALL SUGAR FREE. EXPLAINED TO GO SLOW WITH FLUIDS AND FOOD DUE TO HER VOMETING AND NAUSEA.
--- NOTE | 2019-01-27 17:39 | NUR ---
LAB UNABLE TO OBTAIN SAMPLE SO THIS METAL FRAMER OBTAINED SAMPLE FOR THEM. 5MLS FROM LAC.
--- NOTE | 2019-01-27 18:18 | NUR ---
PT CBG UNDER 200 AT THIS TIME SO IV FLUIDS CHANGED TO D5LR, PT ALSO C/O PAIN 04/24 AND WAS MEDICATED WITH DIDLUAD 0.5MG IVP AT THIS TIME. PT TRIED TO EAT BUT BECAME NAUSEADED. TOO SOON TO MEDICATED AT THIS TIME. LEFT TRAY AT THE BEDSIDE. IN CASE SHE WANTS TO TRY LATER. PT MOTHER REMAINS AT THE BEDSIDE.
--- NOTE | 2019-01-27 20:08 | NUR ---
PATIENT SLEEPING SOUNDLY. RR 15. APPEARS COMFORTABLE. MOTHER AT BEDSIDE. PATIENT WOKE EASILY TO VOICE, DENIED ANY NEEDS. TOLERATING ROOM AIR. D5LR INFUSING AT 125ML/HR PER ORDER. CURRENT INSULIN RATE AT 5.1 UNIT/HR. NEW BLOOD GLUCOSE 228, INSULIN TITRATED 6.8 UNIT/HR. VERFIED WITH EMPERATRIZ RUDD.
--- NOTE | 2019-01-27 21:00 | NUR ---
INSULIN RATE AT 6.8 UNIT/HR. CURRENT BLOOD GLUCOSE 208. TITRATED TO 5.6 UNIT/HR. VERFIED WITH SECOND NURSE, EMPERATRIZ RUDD. PATIENT REPORTS 7/10 PAIN IN ABD AND SLIGHT NAUSEA. DILAUDID 0.5 PROVIDED WITH PRN ZOFRAN. WARM BLANKET PROVIDED. PATIENT RESTING SOUNDLY IN BED. CALL LIGHT IN REACH.
--- NOTE | 2019-01-27 22:00 | NUR ---
CURRENT BLOOD GLUCOSE 173. INSULIN INFUSING AT 5.6 UNIT/HR, TITRATED TO 4.8 UNIT/HR. VERIFIED WITH EMPERATRIZ RUDD. CHERRIE APPEARS TO BE RESTING COMFORTABLY. DENIES NEEDS. CALL LIGHT IN REACH.
--- NOTE | 2019-01-27 23:06 | NUR ---
CURRENT BLOOD GLUCOSE 142. INSULIN TITRATED FROM 4.8 UNIT/HR TO 2.7 UNIT/HR. VERIFIED WITH EVA RUDD.
--- NOTE | 2019-01-27 23:36 | NUR ---
PATIENT HAD SMALL AMOUNT OF EMESIS WITH ONGOING DRY HEAVES. PRN ZOFRAN PREVIOUSLY PROVIDED. DISCUSSED OPTIONS WITH MD FOR FURTHER TREATMENT OF NAUSEA. NEW ORDERS RECEIVED AND VERIFIED VIA REPEAT BACK. THESE INCLUDED CHANGES TO PRN PAIN MEDS TO PREVENT WORSENING OF NUASEA SYMPTOMS.
--- NOTE | 2019-01-28 00:05 | NUR ---
PATIENT SLEEPING SOUNDLY. RR 12. CURRENT BLOOD GLUCOSE 143, TITRATED INSULIN FROM 2.7 UNIT/HR TO 1.8 UNIT/HR. VERIFIED WITH EMPERATRIZ RUDD.
--- NOTE | 2019-01-28 00:59 | NUR ---
PATIENT UP TO THE BSC. PATIENT APPEARS STEADY. UA COLLECTED AND SENT TO THE LAB. PATIENT REPORTS MILD PAIN, PRN TORADOL PROVIDED. PATIENT STATES SHE HAS MILD NAUSEA NOW BUT NO EMESIS. CURRENT BLOOD GLUCOSE 141, INSULIN TITRATED FROM 1.8 UNITS/HR TO 0.9 UNITS/HR. VERIFIED WITH EVA RUDD.
--- NOTE | 2019-01-28 02:02 | NUR ---
CB, NO TITRATION OF INSULIN DRIP REQUIRED AT THIS TIME. DRIP CONTINUES AT 0.9 UNITS/HR.
--- NOTE | 2019-01-28 02:28 | NUR ---
PATIENT APPEARS TO BE SLEEPING SOUNDLY. RR 18. CALL LIGHT IN REACH.
--- NOTE | 2019-01-28 03:06 | NUR ---
PATIENT SLEEPING SOUNDLY. RR 14. CURRENT BLOOD GLUCOSE 156. INSULIN TITRATED FROM 0.9 UNIT/HR TO 1 UNIT/HR. VERIFIED WITH EMPERATRIZ RUDD.
--- NOTE | 2019-01-28 03:42 | NUR ---
ASSISTED PATIENT UP TO THE BSC. PATIENT INCONTINENT OF URINE. FRESH BED LINEN PROVIDED. ATTENDS IN PLACE. PATIENT ASSISTED BACK INTO BED. APPEARS COMFORTABLE.
--- NOTE | 2019-01-28 04:00 | NUR ---
BLOOD GLUCOSE 161. NO TITRATION REQUIRED. INSULIN CONTINUED AT 1 UNIT/HR. VERIFIED WITH SECOND NURSE, EMPERATRIZ RUDD.
--- NOTE | 2019-01-28 04:43 | NUR ---
PATIENT REPORTS 8/10 PAIN AND APPEARS RESTLESS. PRN MORPHINE AND ZOFRAN PROVIDED. PATIENT APPEARS TO BE RESTING AFTER MEDS AND WARM BLANKET PROVIDED.
--- NOTE | 2019-01-28 05:15 | NUR ---
CB, INSULIN DRIP TITRATED TO 1.2 UNITS/HR, VERIFIED WITH BLAIRE CARLTON. PT SLEEPING AT THIS TIME, DOES NOT APPEAR TO BE IN ANY DISTRESS. RESPIRATIONS EVEN AND UNLABORED, RR:13, HR:84.
--- NOTE | 2019-01-28 06:13 | NUR ---
BLOOD GLUCOSE 167, NO TITRATION REQUIRED. REMAINS AT 1.2 UNITS/HR. VERIFIED WITH EVA RUDD. PATIENT SLEPT THROUGH ASSESSMENT. VS STABLE. CALL LIGHT IN REACH.
--- NOTE | 2019-01-28 07:01 | NUR ---
CB, INSULIN DRIP TITRATED TO 1 UNIT/HR PER PROTOCOL, VERIFIED WITH BLAIRE CARLTON. PT IS CURRENTLY SLEEPING, NO APPARENT DISTRESS. RR:21, HR: 87.
--- NOTE | 2019-01-28 08:00 | NUR ---
titrated insulin drip to 1.2 units/hr per the insulin protocol.
--- NOTE | 2019-01-28 09:05 | NUR ---
IN TO ASSESS PT, PT SLEEPING UNABLE TO DO ASSESSMENT AT THIS TIME, WILL RETURN WHEN PT MORE AWAKE AND ALERT.
[2019-01-28] MEDS ORDERED: ESTRACE1 MG PO (09:26)
--- NOTE | 2019-01-28 11:03 | NUR ---
titrated insulin drip to 3.4 units/hr per insulin protocol.
--- NOTE | 2019-01-28 11:16 | NUR ---
PATIENT IS LETHARGIC AND STATES "I DON'T WANT TO FEEL THIS WAY." CONVINCED PATIENT TO DRINK SOME APPLE JUICE WHILE TAKING ORAL MEDICATION. PATIENT SWALLOWED ORAL MEDICATIONS AND IS SITTING UP IN BED WATCHING TV.
--- NOTE | 2019-01-28 11:19 | NUR ---
PATIENT HAS AMBULATED FROM BED TO BED SIDE COMMODE TWICE THIS MORNING. UPON RETURNING TO BED SHE FELL BACK ASLEEP. PATIENT STATES SHE IS IN PAIN BUT WILL NOT GRADE THE PAIN ON A 0-10 SCALE. FACE SCALE USED ON PATIENT AND 0 OUT OF 10 PAIN RECORDED. PATIENT DENIES ANY NAUSEA.
--- NOTE | 2019-01-28 12:05 | NUR ---
titrated insulin drip to 6.3 units/hr per the insulin protocol.
--- NOTE | 2019-01-28 12:15 | NUR ---
PATIENT IS SLEEPING IN THE BED WITH FAMILY IN THE ROOM. PATIENT IS AROUSABLE BUT AGITATED WHEN AROUSED. LUNCH HAS BEEN ORDERED FOR THIS PATIENT. PATIENT DOES NOT APPEAR TO BE IN ANY PAIN USING FACE SCALE ASSESSMENT.
--- NOTE | 2019-01-28 12:31 | NUR ---
PATIENT IS SITTING UP IN BED. PATIENT WAS AGITATED WHEN WOKEN UP BUT HAS SETTLED AND STARTED TO EAT LUNCH THAT WAS DELIVERED. PATIENT DENIES PAIN AND NAUSEA AT THIS TIME. FAMILY IS IN ROOM WITH PATIENT.
--- NOTE | 2019-01-28 13:00 | NUR ---
insulin titrated to 4.2 units/hour per insulin protocol.
--- NOTE | 2019-01-28 14:05 | NUR ---
titrated insulin drip to 3.6 units/hr per insulin protocol.
--- NOTE | 2019-01-28 14:11 | NUR ---
PATIENT WAS SLEEPING IN BED AND DID NOT WAKE UP WHEN CHECKING BLOOD GLUCOSE. PATIENT REFUSES TO WAKE UP. ALL VITAL SIGNS ARE WITHIN NORMAL LIMITS.
[2019-01-28] MEDS ORDERED: VITAMIN C500 M1 PO (15:37)
[2019-01-28] MEDS ORDERED: ZOFRAN4 MG PO (15:38)
--- NOTE | 2019-01-28 15:39 | NUR ---
MED REC COMPLETE
--- NOTE | 2019-01-28 15:46 | NUR ---
PT CALLED WITH CALL LIGHT. WHEN IN ROOM PT TEARFUL, CRIES "I'M SO RESTLESS, CAN'T YOU GIVE ME SOMETHING?" THIS RN INFORMED THE PT THAT THERE IS NO MEDICATION PERSCRIBED FOR RESTLESSNESS. PT CRIES, "I WANT MY MOM". ATTEMPTED TO CALL PT MOTHER ALLYSSA, LEFT A VOICEMAIL. ASSISTED PT UP TO THE CHAIR, GAVE WARM BLANKET AND POPSICLE. CHANGED PT LINENS ON BED. PT REQUESTED AND WAS GIVEN A GLASS OF APPLE JUICE. PT THEN REQUESTS TO GET BACK TO BED. CALL LIGHT WITHIN REACH.
--- NOTE | 2019-01-28 16:08 | NUR ---
PT CBG IS 144 NO INSULIN DRIP TITRATION REQUIRED AT THIS TIME, DRIP IS CURRENTLY RUNNING AT 1.8 UNITS/HR.
--- NOTE | 2019-01-28 16:33 | NUR ---
PT IS NOTED TO BEHAVE/COMMUNICATE IN THE MANOR OF A 9 YEAR OLD CHILD.
--- NOTE | 2019-01-28 17:05 | NUR ---
CBG IS 138, INSULIN DRIP TITRATED TO 0.8 UNITS/HOUR PER INSULIN PROTOCOL.
--- NOTE | 2019-01-28 17:15 | NUR ---
PATIENT IS SITTING UP IN BED TALKING WITH FAMILY. PATIENT DENIES PAIN AND NAUSEA AT THIS TIME. PATIENT ORDERED GRILLED SALMON FOR DINNER. PATIENT HAS NO OTHER REQUESTS OR CONCERNS AT THIS TIME.
--- NOTE | 2019-01-28 17:24 | NUR ---
PATIENT IS RESTING IN BED AND DENIES ANY PAIN. PATIENT COMPLAINED OF FEELING "UNCOMFORTABLE AND RESTLESS". A PILLOW WAS PLACED UNDER THE PATIENTS KNEES AND SHE STATED THAT FEELS BETTER. PATIENT IS RESTING IN BED WATCHING TV WITH FAMILY IN THE ROOM.
--- NOTE | 2019-01-28 18:07 | NUR ---
insulin drip titrated to 2.8 units/hr per insulin protocol. CBG is 206.
--- NOTE | 2019-01-28 19:45 | NUR ---
Patient ambulated to bathroom, SBA, gait steady. HR noted to be 120 with ambulation. Now resting in bed again, breathing is even and unlabored, denies further needs at this time. HR returned to 90s at rest. Patient has flat affect, does not answer most questions, unwilling to cooperate with staff. HR and BP WNL at rest, peripheral pulses well felt in all extremities. Breathing is even and unlabored, RR WNL, lungs clear, 97% SpO2 on RA. Abdomen is tender to palpation, denies pain, denies nausea. Skin intact, IV patent x2, IVF infusing per order. Call light within reach, family at bedside.
--- NOTE | 2019-01-28 20:08 | NUR ---
CBG 159, insulin gtt titrated to 1 unit/hr. Patient remains restful with eyes closed, call light within reach.
--- NOTE | 2019-01-28 21:09 | NUR ---
CBG 196, insulin gtt titrated to 1.4 units/hr. Patient remains restful with eyes closed vitals WNL. Call light within reach.
--- NOTE | 2019-01-28 22:01 | NUR ---
CBG 225, insulin gtt titrated to 3.4 units/hr. Remains restful with eyes closed, vitals WNL. Call light WNL.
--- NOTE | 2019-01-28 23:11 | NUR ---
CBG 178, insulin gtt titrated to 2.4 units/hr. Remains restful with eyes closed, vitals WNL. Call light within reach.
--- NOTE | 2019-01-29 00:10 | NUR ---
CBG 154, insulin gtt titrated to 2 units/hr. Assessment done, no acute change from previous, vitals WNL. Denies abdominal pain, no nausea. Denies needs at this time. Call light within reach.
--- NOTE | 2019-01-29 01:07 | NUR ---
CBG 148, insulin gtt titrated to 0.9 units/hr.
--- NOTE | 2019-01-29 03:10 | NUR ---
CBG 168, insulin gtt remains at 1.2 units/hr. Patient remains restful, vitals WNL. Call light within reach.
--- NOTE | 2019-01-29 05:10 | NUR ---
CBG 189, insulin gtt titrated to 1.4 units/hr. Remains restful, denies needs. Call light within reach.
--- NOTE | 2019-01-29 06:08 | NUR ---
CBG 201, insulin gtt titrated to 2.8 units/hr.
--- NOTE | 2019-01-29 07:02 | NUR ---
Insulin gtt titrated to 2.4 units/hr, CBG 165.
--- NOTE | 2019-01-29 08:05 | NUR ---
INSULIN DRIP TITRATED TO 0.8 UNITS/HR PER INSULIN PROTOCOL.
--- NOTE | 2019-01-29 08:18 | NUR ---
PATIENT IS SITTING UP IN BED EATING BREAKFAST. PATIENT WAS GIVENA WARM BLANKET UPON REQUEST. PATIENT HAS A FLAT AFFECT AND MINIMAL INTERACTION WITH STAFF. PATIENT DENIES ANY PAIN OR NAUSEA. PATIENT IS WATCHING TV WITH CALL LIGHT IN REACH AND HAS BEEN INSTRUCTED TO USE CALL LIGHT FOR ASSISTANCE.
--- NOTE | 2019-01-29 09:05 | NUR ---
INSULIN DRIP TITRATED TO 2.8 UNITS/HR PER INSULIN PROTOCOL.
--- NOTE | 2019-01-29 09:18 | NUR ---
26 UNITS LANTUS GIVEN.
--- NOTE | 2019-01-29 09:25 | NUR ---
PATIENT IS RESTING IN BED AFTER EATING BREAKFAST. PATIENT WAS CURIOUS ABOUT 9 OCLOCK MEDICATIONS. PATIENT DOES NOT WANT ANYTHING TO MAKE HER DROWSY AND SHE WAS INFOMED THAT THE MEDS SHE WAS RECEIVING CARLTON NOT MAKE HER DROWSY. PATIENT STATED THAT SHE IS HARD OF HEARING BECAUSE OF THE DRAINAGE FROM HER RIGHT EAR DUE TO AN ILLNESS. PATIENT STATES HAVING EAR DRAINAGE IN THE PAST. PATIENT DOES NOT HAVE PAIN OR NAUSEA AT THIS TIME AND NO FURTHER REQUESTS OR QUESTIONS.
--- NOTE | 2019-01-29 10:12 | NUR ---
INSULIN DRIP TITRATED TO 5.1 UNITS/HR PER INSULIN PROTOCOL.
--- NOTE | 2019-01-29 10:13 | NUR ---
PATIENT IS LAYING IN BED WATCHING TV. WARNER WAS CURIOUS WHEN SHE WOULD BE ABLE TO GO HOME. PATIENT WAS INFORMED THAT THE DR. WOULD BE IN TO ASSESS HER AND MAKE THE DECISION. PATIENT DENIES PAIN AND NAUSEA AND DOES NOT HAVE ANY FURTHER QUESTIONS OR REQUESTS.
--- NOTE | 2019-01-29 10:22 | NUR ---
PATIENT STATED SHE WANTED TO GET UP AND PERFORM ADL'S. PATIENT WAS DISCONNECTED FROM MONITOR AND INSTRUCTED TO USE CALL LIGHT WHEN BACK IN BED TO BE HOOKED BACK UP TO MONITORS. PATIENT STATED UNDERSTANDING.
--- NOTE | 2019-01-29 10:40 | NUR ---
PATIENT IS BACK IN BED AND REATTACHED TO 5 LEAD HEART MONITOR. PATIENT STATED THAT IT FELT GOOD TO GET UP AND CLEAN HER FACE AND BRUSH TEETH. PATIENT REQUESTED A CHOCOLATTE PUDDING AND NO OTHER REQUESTS. PATIENT HAS CALL LIGHT IN REACH.
--- NOTE | 2019-01-29 11:04 | NUR ---
PATIENT IS SITTING UP IN BED WATCHING TV. PATIENT WANTED TO ORDER A CRACKER TRAY BUT WAS EASILY CONVINCED TO ORDER LUNCH. PATIENT'S LUNCH ORDER WAS MADE. PATIENT WAS CURIOUS WHEN SHE COULD TRANFERED FROM CCU TO MED/SURG FLOOR AND WAS INFORMED THAT DR. RHODES WILL MAKE THAT DECISION WHEN HE MAKES HIS ROUNDS. PATIENT HAS NO FURTHER QUESTIONS OR REQUESTS AT THIS TIME.
--- NOTE | 2019-01-29 12:22 | NUR ---
PATIENT IS SITTING UP IN BED EATING LUNCH WITH FAMILY IN THE ROOM. PATIENT WAS CURIOUS IF SHE WILL BE ABLE TO GO HOME OR TO MED/SURG FLOOR. INFORMED PATIENT THAT DR. RHODES WILL MAKE THAT DECISION WHEN HE COMES TO ASSESS PATIENT.
--- NOTE | 2019-01-29 14:56 | NUR ---
CONSULT RECEIVED FOR SMALL BODY SIZE FOR AGE AND TYPE 1 DM. PATIENT HAS BEEN TYPE 1 DIABETIC SINCE 6 YRS OLD (PER PATIENT). SHE DOES COUNT CARBS AND TAKES 10 UNITS OF INSULIN BEFORE SHE EATS. SHE AND HER MOM WORK TOGETHER ON HER DIET. SHE SAYS HER WEIGHT STAYS BETWEEN 79-83 LBS. HER BLOOD SUGARS STAY IN GOOD CONTROL MOST OF THE TIME, EXCEPT WHEN SHE IS SICK. SHE ASKED IF WE HAVE ANY DIABETES CLASSES HERE. I GAVE HER A BROCHURE EXPLAINING OUR NUTRITION AND DIABETES SERVICES. SHE DOES NOT FOLLOW UP WITH A DIETITIAN REGULARLY. I TOLD HER IF SHE NEEDED SOME HELP WITH DIET AND/OR DIABETES EDUCATION, SHE CAN GIVE US A CALL.
== END 2019-01-29 15:30 | disposition home or self-care (01) | DRG 438 ==
LOC: ED 11:50 → CCU 14:19
PROVIDERS: ADMIT Internal Medicine
DX: K85.90 Acute pancreatitis without necrosis or infection, unspecified (principal); E10.10 Type 1 diabetes mellitus with ketoacidosis without coma; E78.1 Pure hyperglyceridemia; Z85.6 Personal history of leukemia; Z79.4 Long term (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; Z79.899 Other long term (current) 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; Z88.1 Allergy status to other antibiotic agents; Z88.0 Allergy status to penicillin; Z88.2 Allergy status to sulfonamides
CPT/HCPCS: 36415; 80048; 80053; 80061; 81001; 82010; 82800; 83540; 83690; 83735; 84100; 84132; 84466; 84478; 84703; 85025; 96361; 96374; 96375; 96376; 99285-25; C9113; J0780; J1170; J1650; J1815; J1885; J2270; J2405; J3475; J3480; J7030; J7040; J7060; J7120

== ENCOUNTER 2019-03-18 02:25 | Emergency (ER) | payer OTHER ==
[~2019-03-18] VITALS: Ht 147.3 cm; Wt 39.5 kg
[~2019-03-18 02:25] MED LIST changes: +ESTRACE1 MG PO; +VITAMIN C500 M1 PO
--- OUTSIDE RECORDS SUMMARY | 2019-03-18 02:28 | XMS ---
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 Jef has no Care Guidelines for this patient. [place] VISIT COUNT (12 MO.) [address] TOTAL 4 NOTE: Visits indicate total known visits. ED/[facility] [place] [place] VISIT TRACKING (12 MO.) [facility] [place] [facility] [facility] COMPLAINT: - CHEST PAIN 03/10/2019 21:41 [facility] TYPE: Emergency COMPLAINT: - CHEST PAIN 01/27/2019 11:51 [facility] TYPE: Emergency COMPLAINT: - RIGHT SIDE ABDOMENAL PAIN 10/15/2018 14:48 [facility] TYPE: Emergency COMPLAINT: - PANCREATITIS INPATIENT VISIT TRACKING (12 MO.) 03/11/2019 00:07 [facility] TYPE: Acute Care COMPLAINT: - CHEST PAIN DIAGNOSES: 0. Acute kidney failure, unspecified 2. Acidosis 3. Type 2 diabetes mellitus with hyperglycemia 4. 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 Hyperkalemia 6. Dehydration 7. Other chest pain 8. Shortness of breath 9. Pure hyperglyceridemia 10. Personal history of sudden cardiac arrest 11. Personal history of leukemia 01/27/2019 14:19 [facility] [place] TYPE: Critical Care COMPLAINT: - PANCREATITIS DIAGNOSES: - snf (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 - Personal history of leukemia - Allergy status to other antibiotic agents status - Upper abdominal pain, unspecified - Allergy status to other antibiotic agents status - Acute pancreatitis without necrosis or infection, unspecified - Allergy status to penicillin - Pure hyperglyceridemia - Type 1 diabetes mellitus with ketoacidosis without coma - Pure hyperglyceridemia - Other halfway (current) 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 - supervisor 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s (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 - Allergy status to sulfonamides status - Allergy status to penicillin - Type 1 diabetes mellitus with ketoacidosis without coma - Acute pancreatitis without necrosis or infection, unspecified - 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 - Allergy status to sulfonamides status - Personal history of leukemia 10/16/2018 14:21 [facility] [place] TYPE: Medical Surgical COMPLAINT: - PANCREATITIS DIAGNOSES: - supervisor 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s (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 - supervisor 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s (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 - Allergy status to penicillin - Acute pancreatitis without necrosis or infection, unspecified - Type 1 diabetes mellitus without complications - Allergy status to penicillin - Allergy status to other antibiotic agents status - Personal history of leukemia - Type 1 diabetes mellitus without complications - Allergy status to other antibiotic agents status - Personal history of leukemia - Pure hyperglyceridemia - Allergy status to sulfonamides status - Pure hyperglyceridemia - Allergy status to sulfonamides status [email or web address]
[2019-03-18] MEDS ORDERED: LISINOPRIL10 MG PO (02:46)
--- NOTE | 2019-03-18 11:40 | EKG ---
[facility] [address] [place], [place] [address] Signed Normal sinus rhythm Normal ECG No previous ECGs available Confirmed by KARINA SMILEY DO ([id number]) on 03/18/2019 11:39:56 AM Electronically Signed By: KARINA SMILEY DO 03/18/19 1140 PATIENT NAME: MONTSE GUTIERREZ Electrocardiogram DATE OF : 89 PHYSICIAN: KARINA SMILEY DO REPORT #: [id number] REPORT IS CONFIDENTIAL AND NOT TO BE RELEASED WITHOUT AUTHORIZATION
== END 2019-03-18 04:04 | disposition home or self-care (01) ==
LOC: ED 02:25
DX: R07.89 Other chest pain (principal); E11.9 Type 2 diabetes mellitus without complications; Z90.49 Acquired absence of other specified parts of digestive tract; Z88.0 Allergy status to penicillin; Z88.1 Allergy status to other antibiotic agents; Z88.2 Allergy status to sulfonamides; Z79.4 Long term (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; Z79.899 Other long term (current) 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
CPT/HCPCS: 71046; 80053; 83735; 84484; 85025; 85379; 93005; 93010; 96374; 99285-25; J1885

== ENCOUNTER 2021-01-18 15:45 | Emergency (ER) | payer OTHER ==
[~2021-01-18] VITALS: Ht 149.9 cm; Wt 35.4 kg
[~2021-01-18 15:45] MED LIST changes: +LISINOPRIL10 MG PO
[2021-01-18] MEDS ORDERED: MONO-LINYAH1 EACH PO (16:19)
[2021-01-18] MEDS ORDERED: ZOFRAN4 MG PO (18:32)
[2021-01-18] MEDS ORDERED: PEPCID20 MG PO (18:32)
== END 2021-01-18 18:43 | disposition home or self-care (01) ==
LOC: ED 15:45
DX: E11.65 Type 2 diabetes mellitus with hyperglycemia (principal); E86.0 Dehydration; N17.9 Acute kidney failure, unspecified; E78.1 Pure hyperglyceridemia; Z88.2 Allergy status to sulfonamides; Z88.1 Allergy status to other antibiotic agents; Z88.0 Allergy status to penicillin; Z79.899 Other long term (current) 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; Z79.4 Long term (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; E10.10 Type 1 diabetes mellitus with ketoacidosis without coma
CPT/HCPCS: 80053; 81001; 83690; 84703; 85025; 96361; 96374; 96375; 99284-25; J1885; J2405; J7030

== ENCOUNTER 2021-01-20 18:07 | Emergency (ER) | payer OTHER ==
[~2021-01-20] VITALS: Ht 149.9 cm; Wt 35.4 kg
[~2021-01-20 18:07] MED LIST changes: +MONO-LINYAH1 EACH PO; +PEPCID20 MG PO
--- OUTSIDE RECORDS SUMMARY | 2021-01-20 18:10 | XMS ---
PreManage Notification: MONTSE GUTIERREZ Security Video Control Engineer Events No recent Security Events currently on file CRITERIA MET - [facility] - 2 Visits in 30 Days CARE PROVIDERS SAUL THORPE Physician Sld Teacher 03/19/2019-Current PHONE: Unknown Jef has no Care Guidelines for this patient. Care History Medical/Surgical 03/19/2019 [facility] \T\middot;\T\nbsp; PATIENT IS A [employer] MEMBER. \T\middot;\T\nbsp; PLEASE REFER PATIENT TO [facility] FOR NON EMERGENT MEDICAL NEEDS. \T\middot;\ T\nbsp; [facility] CAN SEE PATIENTS SAME DAY FOR APTS IF PATIENT CALLS FIRST THING IN THE MORNING. E.D. VISIT COUNT (12 MO.) 1 [facility] 2 [facility] TOTAL 3 NOTE: Visits indicate total known visits. ED/UCC VISIT TRACKING (12 MO.) 01/20/2021 18:07 [facility] TYPE: Emergency COMPLAINT: - STOMACH PAIN 01/18/2021 15:46 [facility] [place] TYPE: Emergency COMPLAINT: - HIGH BLOOD SUGAR, ABD/CHEST PAIN 11/06/2020 23:42 [facility] TYPE: Emergency COMPLAINT: - BLOOD SUGAR ISSUE DIAGNOSES: 1. Calculus of bile duct without cholangitis or cholecystitis without obstruction 2. Type 2 diabetes mellitus with hyperglycemia 3. detention (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 4. Acute lymphoblastic leukemia, in remission INPATIENT VISIT TRACKING (12 MO.) No inpatient visits to display in this time frame [email or web address]
[2021-01-22] MEDS ORDERED: HYDROCODON-ACE1 EA10 PO (17:27)
[2021-01-22] MEDS ORDERED: FLOMAX0.4 MG PO (17:27)
== END 2021-01-21 00:06 | disposition home or self-care (01) ==
LOC: ED 18:07
DX: E10.65 Type 1 diabetes mellitus with hyperglycemia (principal); R33.9 Retention of urine, unspecified; E78.5 Hyperlipidemia, unspecified; Z88.2 Allergy status to sulfonamides; Z88.0 Allergy status to penicillin; Z88.1 Allergy status to other antibiotic agents; Z79.899 Other long term (current) 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; Z79.4 Long term (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; E10.10 Type 1 diabetes mellitus with ketoacidosis without coma
CPT/HCPCS: 51702; 51798; 74176; 80053; 81001; 82010; 82800; 83690; 85025; 99285-25; C9113; J1170; J1815; J2405; J7030; U0003

== ENCOUNTER 2021-01-22 14:22 | Emergency (ER) | payer OTHER ==
[~2021-01-22] VITALS: Ht 149.9 cm; Wt 35.4 kg
--- OUTSIDE RECORDS SUMMARY | 2021-01-22 14:24 | XMS ---
PreManage Notification: MONTSE GUTIERREZ Security Finishing Range Feeder Events No recent Security Events currently on file CRITERIA MET - [facility] - Has Care Guidelines - [facility] - 2 Visits in 30 Days CARE PROVIDERS SAUL THORPE Physician 03/19/2019-[facility] PHONE: Unknown [facility] 01/22/2021-[facility] PHONE: [phone] Jef has no Care Guidelines for this patient. Care History Medical/Surgical 03/19/2019 [facility] - PATIENT IS GABINOSARHA ELIGIBLE, \T\middot;\T\nbsp; PLEASE REFER PATIENT TO [facility] FOR NON EMERGENT MEDICAL NEEDS. \T\middot;\T\nbsp; [facility] CAN SEE PATIENTS SAME DAY FOR APTS IF PATIENT CALLS FIRST THING IN THE MORNING. E.D. VISIT COUNT (12 MO.) 1 [facility] [address] [facility] TOTAL 4 NOTE: Visits indicate total known visits. ED/UCC VISIT TRACKING (12 MO.) 01/22/2021 14:23 [facility] [place] TYPE: Emergency COMPLAINT: - ABDOM PAIN 01/20/2021 18:07 [facility] [place] TYPE: Emergency COMPLAINT: - STOMACH PAIN 01/18/2021 15:46 [facility] [place] TYPE: Emergency COMPLAINT: - HIGH BLOOD SUGAR, ABD/CHEST PAIN DIAGNOSES: - Other intermodal customer service (current) 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 - Dehydration - Right upper quadrant pain - Allergy status to sulfonamides - Dizziness and giddiness - Type 2 diabetes mellitus with hyperglycemia - Pure hyperglyceridemia - Acute kidney failure, unspecified - Allergy status to penicillin - MCC (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 - Allergy status to other antibiotic agents - Type 1 diabetes mellitus with ketoacidosis without coma 11/06/2020 23:42 [facility] TYPE: Emergency COMPLAINT: - BLOOD SUGAR ISSUE DIAGNOSES: 1. Calculus of bile duct without cholangitis or cholecystitis without obstruction 2. Type 2 diabetes mellitus with hyperglycemia 3. MCC (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 4. Acute lymphoblastic leukemia, in remission INPATIENT VISIT TRACKING (12 MO.) No inpatient visits to display in this time frame [email or web address]
[2021-01-22] MEDS ORDERED: HYDROCODON-ACE1 EA10 PO (17:27)
[2021-01-22] MEDS ORDERED: FLOMAX0.4 MG PO (17:27)
== END 2021-01-22 17:56 | disposition home or self-care (01) ==
LOC: ED 14:22
DX: R33.9 Retention of urine, unspecified (principal); E78.5 Hyperlipidemia, unspecified; E11.10 Type 2 diabetes mellitus with ketoacidosis without coma; Z88.2 Allergy status to sulfonamides; Z88.1 Allergy status to other antibiotic agents; Z88.0 Allergy status to penicillin; Z79.899 Other long term (current) 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; Z79.4 Long term (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
CPT/HCPCS: 51702; 51798; 81001; 99284-25

== ENCOUNTER 2021-01-29 12:46 | Emergency (ER) | payer OTHER ==
[~2021-01-29] VITALS: Ht 149.9 cm; Wt 35.4 kg
[~2021-01-29 12:46] MED LIST changes: +FLOMAX0.4 MG PO; +HYDROCODON-ACE1 EA10 PO
--- OUTSIDE RECORDS SUMMARY | 2021-01-29 12:52 | XMS ---
PreManage Notification: MONTSE GUTIERREZ Security Scene And Lighting Design Lecturer Events No recent Security Events currently on file CRITERIA MET - [facility] - Has Care Guidelines - [facility] - 2 Visits in 30 Days CARE PROVIDERS SAUL THORPE Physician Hostess Host 03/19/2019-Current PHONE: Unknown [facility] 01/22/2021-[facility] PHONE: [phone] Jef has no Care Guidelines for this patient. Care History Medical/Surgical 01/25/2021 [facility] VOIDING TRIAL SCHEDULED WITH DR CHRISTENSEN UROLOGIST 02/06/21 01/23/2021 [facility] - PATIENT UNIT OPERATOR- DR HAMMOND : NEXT APT FEBRUARY 2021-POSSIBLE PUMP -Address: [address] [place] [id number] UROLOGY REFERRAL SENT TO DR CHRISTENSEN -URGENT RE[facility] 03/19/2019 [facility] - PATIENT IS LINA ELIGIBLE, \T\middot;\T\nbsp; PLEASE REFER PATIENT TO [facility] FOR NON EMERGENT MEDICAL NEEDS. \T\middot;\T\nbsp; [facility] CAN SEE PATIENTS SAME DAY FOR APTS IF PATIENT CALLS FIRST THING IN THE MORNING. [place] VISIT COUNT (12 MO.) 1 [place] [address] [facility] [address] TOTAL 5 NOTE: Visits indicate total known visits. ED/UCC VISIT TRACKING (12 MO.) 01/29/2021 12:46 [facility] [place] TYPE: Emergency COMPLAINT: - CATHETER PROBLEM 01/22/2021 14:[address] [facility] [place] [facility] [place] TYPE: Emergency COMPLAINT: - ABDOM PAIN DIAGNOSES: - Generalized abdominal pain - Allergy status to sulfonamides - Type 2 diabetes mellitus with ketoacidosis without coma - Allergy status to other antibiotic agents - long-term (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 - Hyperlipidemia, unspecified - Retention of urine, unspecified - Allergy status to penicillin - Other penitentiary (current) 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 01/20/2021 18:[address] [facility] [place] [facility] [place] TYPE: Emergency COMPLAINT: - STOMACH PAIN DIAGNOSES: - Allergy status to penicillin - Type 1 diabetes mellitus with hyperglycemia - Retention of urine, unspecified - termite exterminator (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 - Type 1 diabetes mellitus with ketoacidosis without coma - Other penitentiary (current) 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 - Generalized abdominal pain - Allergy status to sulfonamides - Allergy status to other antibiotic agents - Hyperlipidemia, unspecified 01/18/2021 15:[address] [facility] [place] [facility] [place] TYPE: Emergency COMPLAINT: - HIGH BLOOD SUGAR, ABD/CHEST PAIN DIAGNOSES: - Other terminal operator (current) 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 - Dehydration - Right upper quadrant pain - Allergy status to sulfonamides - Dizziness and giddiness - Type 2 diabetes mellitus with hyperglycemia - Pure hyperglyceridemia - Acute kidney failure, unspecified - Allergy status to penicillin - long-term (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 - Allergy status to other antibiotic agents - Type 1 diabetes mellitus with ketoacidosis without coma 11/06/2020 23:42 [facility] TYPE: Emergency COMPLAINT: - BLOOD SUGAR ISSUE DIAGNOSES: 1. Calculus of bile duct without cholangitis or cholecystitis without obstruction 2. Type 2 diabetes mellitus with hyperglycemia 3. long-term (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 4. Acute lymphoblastic leukemia, in remission INPATIENT VISIT TRACKING (12 MO.) No inpatient visits to display in this time frame [id number]
== END 2021-01-29 14:00 | disposition home or self-care (01) ==
LOC: ED 12:46
DX: Z46.6 Encounter for fitting and adjustment of urinary device (principal); E78.5 Hyperlipidemia, unspecified; E11.10 Type 2 diabetes mellitus with ketoacidosis without coma; Z88.2 Allergy status to sulfonamides; Z88.0 Allergy status to penicillin; Z88.1 Allergy status to other antibiotic agents; Z79.899 Other long term (current) 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; Z79.4 Long term (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
CPT/HCPCS: 99283

== ENCOUNTER 2021-02-02 10:48 | Emergency (ER) | payer OTHER ==
[~2021-02-02] VITALS: Ht 149.9 cm; Wt 42.2 kg
--- OUTSIDE RECORDS SUMMARY | 2021-02-02 10:54 | XMS ---
PreManage Notification: MONTSE GUTIERREZ Security Math And Physics Instructor Events No recent Security Events currently on file CRITERIA MET - 6 ED Visits in 6 Months - [facility] - Has Care Guidelines - [facility] - 2 Visits in 30 Days CARE PROVIDERS SAUL THORPE Physician Dial Brusher 03/19/2019-Current PHONE: Unknown [facility] 01/22/2021-[facility] PHONE: [phone] Jef has no Care Guidelines for this patient. Care History Medical/Surgical 01/25/2021 [facility] VOIDING TRIAL SCHEDULED WITH DR CHRISTENSEN UROLOGIST 02/06/21 01/23/2021 [facility] - PATIENT CUT OUT AND MARKING MACHINE OPERATOR- DR HAMMOND : NEXT APT FEBRUARY 2021-POSSIBLE PUMP -Address: [address] [place] [id number] UROLOGY REFERRAL SENT TO DR CHRISTENSEN -URGENT REQUEST 01/23/21 FROM [facility] PROVIDER. 03/19/2019 [facility] - PATIENT IS LINA ELIGIBLE, \T\middot;\T\nbsp; PLEASE REFER PATIENT TO [facility] FOR NON EMERGENT MEDICAL NEEDS. \T\middot;\T\nbsp; [facility] CAN SEE PATIENTS SAME DAY FOR APTS IF PATIENT CALLS FIRST THING IN THE MORNING. E.D. VISIT COUNT (12 MO.) 1 [facility] [place] TOTAL 7 NOTE: Visits indicate total known visits. ED/UCC VISIT TRACKING (12 MO.) 02[facility]21 10[facility] COMPLAINT: - ABD PAIN 01/29/2021 21:23 [facility] [place] TYPE: Emergency COMPLAINT: - ABDOMINAL PAIN 01/29/2021 12:46 [facility] [place] TYPE: Emergency COMPLAINT: - CATHETER PROBLEM DIAGNOSES: - Hyperlipidemia, unspecified - Encounter for fitting and adjustment of urinary device - Allergy status to penicillin - Type 2 diabetes mellitus with ketoacidosis without coma - Allergy status to other antibiotic agents - Other correction (current) 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 - Allergy status to sulfonamides - FDC (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 01/22/2021 14:23 [facility] [place] TYPE: Emergency COMPLAINT: - ABDOM PAIN DIAGNOSES: - Generalized abdominal pain - Allergy status to sulfonamides - Type 2 diabetes mellitus with ketoacidosis without coma - Allergy status to other antibiotic agents - watermelon inspector (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 - Hyperlipidemia, unspecified - Retention of urine, unspecified - Allergy status to penicillin - Other correction (current) 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 01/20/2021 18:07 [facility] [place] TYPE: Emergency COMPLAINT: - STOMACH PAIN DIAGNOSES: - Allergy status to penicillin - Type 1 diabetes mellitus with hyperglycemia - Retention of urine, unspecified - watermelon inspector (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 - Type 1 diabetes mellitus with ketoacidosis without coma - Other rat exterminator (current) 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 - Generalized abdominal pain - Allergy status to sulfonamides - Allergy status to other antibiotic agents - Hyperlipidemia, unspecified 01/18/2021 15:46 [facility] TYPE: Emergency COMPLAINT: - HIGH BLOOD SUGAR, ABD/CHEST PAIN DIAGNOSES: - Other correction (current) 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 - Dehydration - Right upper quadrant pain - Allergy status to sulfonamides - Dizziness and giddiness - Type 2 diabetes mellitus with hyperglycemia - Pure hyperglyceridemia - Acute kidney failure, unspecified - Allergy status to penicillin - watermelon inspector (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 - Allergy status to other antibiotic agents - Type 1 diabetes mellitus with ketoacidosis without coma 11/06/2020 23:42 [facility] TYPE: Emergency COMPLAINT: - BLOOD SUGAR ISSUE DIAGNOSES: 1. Calculus of bile duct without cholangitis or cholecystitis without obstruction 2. Type 2 diabetes mellitus with hyperglycemia 3. FDC (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 4. Acute lymphoblastic leukemia, in remission INPATIENT VISIT TRACKING (12 MO.) No inpatient visits to display in this time frame [id number]
== END 2021-02-02 15:20 | disposition home or self-care (01) ==
LOC: ED 10:48
PROC: 4A0D7LZ Measurement of Urinary Volume, Via Natural or Artificial Opening (ICD-10-PCS; principal; 2021-02-02)
DX: E10.65 Type 1 diabetes mellitus with hyperglycemia (principal); R11.2 Nausea with vomiting, unspecified; R10.10 Upper abdominal pain, unspecified; E78.5 Hyperlipidemia, unspecified; Z88.2 Allergy status to sulfonamides; Z88.1 Allergy status to other antibiotic agents; Z79.899 Other long term (current) 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; Z79.4 Long term (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
CPT/HCPCS: 51798; 80053; 81001; 82010; 82803; 83690; 84703; 85025; 99284-25; J1815; J1885; J7030

== ENCOUNTER 2021-03-01 17:02 | Emergency (ER) | payer OTHER ==
[~2021-03-01] VITALS: Ht 149.9 cm; Wt 42.2 kg
--- OUTSIDE RECORDS SUMMARY | 2021-03-01 17:12 | XMS ---
PreManage Notification: MONTSE GUTIERREZ Security Epic Ambulatory Analyst Events No recent Security Events currently on file CRITERIA MET - [facility] - Has Care Guidelines - [facility] - 2 Visits in 30 Days - 6 ED Visits in 6 Months CARE PROVIDERS SAUL THORPE Physician Territory Sales Manager 03/19/2019-[facility] PHONE: Unknown [facility] 01/22/2021-[facility] PHONE: [phone] Jef has no Care Guidelines for this patient. Care History Medical/Surgical 02/05/2021 [facility] - [facility] CALLED AND SPOKE WITH ASP NET DEVELOPER WALDEMAR- DISCUSSED RECENT ED VISITS- PRIMARY CARE PHYSICIAN REVIEWED PATIENT RECENT ED VISITS AND DID CONTACT PATIENT-THEY HAVE INSTRUCTED PATIENT TO CONTACT CHIEF DEPUTY COURT CLERK DR HAMMOND TO SCHEDULE AND EARLIER APT IF POSSIBLE. PATIENT HAS TO MAKE THE APT FOR FOLLOW UP THE CLINIC CAN\T\#39;T SCHEDULE THE APT FOR THE PATIENT. - PATIENT HAS AN APT 02/06/[address] CHRISTENSEN. 01/25/2021 [facility] VOIDING TRIAL SCHEDULED WITH DR CHRISTENSEN UROLOGIST 02/06/21 01/23/2021 [facility] - PATIENT CHIEF DEPUTY COURT CLERK- DR HAMMOND : NEXT APT FEBRUARY 2021-POSSIBLE PUMP -Address: [address] [place] [address] UROLOGY REFERRAL SENT TO DR CHRISTENSEN -URGENT REQUEST 01/23/21 FROM [facility] PROVIDER. [place] VISIT COUNT (12 MO.) [address] [place] [address] [facility] TOTAL 8 NOTE: Visits indicate total known visits. ED/UCC VISIT TRACKING (12 MO.) 03/01/2021 17:[facility] [place] TYPE: Emergency COMPLAINT: - ABDOMINAL PAIN 02/02/2021 10:48 [facility] [place] TYPE: Emergency COMPLAINT: - ABD PAIN DIAGNOSES: - Upper abdominal pain, unspecified - Allergy status to sulfonamides - Nausea with vomiting, unspecified - terminal worker (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 - Type 1 diabetes mellitus with hyperglycemia - Hyperlipidemia, unspecified - Type 2 diabetes mellitus with ketoacidosis without coma - Type 1 diabetes mellitus with ketoacidosis without coma - Allergy status to other antibiotic agents - Type 2 diabetes mellitus with hyperglycemia - Other snf (current) 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 01/29/2021 21:23 [facility] [place] TYPE: Emergency COMPLAINT: - ABDOMINAL PAIN 01/29/2021 12:46 [facility] [place] TYPE: Emergency COMPLAINT: - CATHETER PROBLEM DIAGNOSES: - Hyperlipidemia, unspecified - Encounter for fitting and adjustment of urinary device - Allergy status to penicillin - Type 2 diabetes mellitus with ketoacidosis without coma - Allergy status to other antibiotic agents - Other terminal worker (current) 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 - Allergy status to sulfonamides - assisted (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 01/22/2021 14:23 [facility] [place] TYPE: Emergency COMPLAINT: - ABDOM PAIN DIAGNOSES: - Generalized abdominal pain - Allergy status to sulfonamides - Type 2 diabetes mellitus with ketoacidosis without coma - Allergy status to other antibiotic agents - assisted (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 - Hyperlipidemia, unspecified - Retention of urine, unspecified - Allergy status to penicillin - Other terminal worker (current) 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 01/20/2021 18:07 [facility] [place] TYPE: Emergency COMPLAINT: - STOMACH PAIN DIAGNOSES: - Allergy status to penicillin - Type 1 diabetes mellitus with hyperglycemia - Retention of urine, unspecified - terminal worker (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 - Type 1 diabetes mellitus with ketoacidosis without coma - Other snf (current) 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 - Generalized abdominal pain - Allergy status to sulfonamides - Allergy status to other antibiotic agents - Hyperlipidemia, unspecified 01/18/2021 15:46 [facility] [place] TYPE: Emergency COMPLAINT: - HIGH BLOOD SUGAR, ABD/CHEST PAIN DIAGNOSES: - Other snf (current) 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 - Dehydration - Right upper quadrant pain - Allergy status to sulfonamides - Dizziness and giddiness - Type 2 diabetes mellitus with hyperglycemia - Pure hyperglyceridemia - Acute kidney failure, unspecified - Allergy status to penicillin - assisted (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 - Allergy status to other antibiotic agents - Type 1 diabetes mellitus with ketoacidosis without coma 11/06/2020 23:42 [facility] TYPE: Emergency COMPLAINT: - BLOOD SUGAR ISSUE DIAGNOSES: 1. Calculus of bile duct without cholangitis or cholecystitis without obstruction 2. Type 2 diabetes mellitus with hyperglycemia 3. terminal worker (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 4. Acute lymphoblastic leukemia, in remission INPATIENT VISIT TRACKING (12 MO.) No inpatient visits to display in this time frame [id number]
[2021-03-01] MEDS ORDERED: PYRIDIUM200 MG PO (20:14)
[2021-03-01] MEDS ORDERED: CEPHALEXIN500 MG PO (20:14)
== END 2021-03-01 20:32 | disposition home or self-care (01) ==
LOC: ED 17:02
DX: N39.0 Urinary tract infection, site not specified (principal); E78.5 Hyperlipidemia, unspecified; Z88.2 Allergy status to sulfonamides; Z88.1 Allergy status to other antibiotic agents; Z88.0 Allergy status to penicillin; Z79.899 Other long term (current) 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; Z79.4 Long term (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
CPT/HCPCS: 51701; 51798; 81001; 84703; 87077; 87088; 87186; 99283

== ENCOUNTER 2021-05-16 02:28 | Emergency (ER) | payer OTHER ==
[~2021-05-16] VITALS: Ht 149.9 cm; Wt 42.2 kg
[~2021-05-16 02:28] MED LIST changes: +CEPHALEXIN500 MG PO; +PYRIDIUM200 MG PO
--- OUTSIDE RECORDS SUMMARY | 2021-05-16 02:30 | XMS ---
PreManage Notification: MONTSE GUTIERREZ Security Ore Feeder Events No recent Security Events currently on file CRITERIA MET - 6 ED Visits in 6 Months - [facility] - Has Care Guidelines CARE PROVIDERS SAUL THORPE Physician Supervisor Bonding 03/19/2019-[facility] PHONE: Unknown [facility] 01/22/2021-[facility] PHONE: [phone] Jef has no Care Guidelines for this patient. Care History Medical/Surgical 02/05/2021 [facility] - CHW CALLED AND SPOKE WITH DECKHAND FISHING VESSEL WALDEMAR- DISCUSSED RECENT ED VISITS- PRIMARY CARE PHYSICIAN REVIEWED PATIENT RECENT ED VISITS AND DID CONTACT PATIENT-THEY HAVE INSTRUCTED PATIENT TO CONTACT MAINFRAME CONSULTANT DR HAMMOND TO SCHEDULE AND EARLIER APT IF POSSIBLE. PATIENT HAS TO MAKE THE APT FOR FOLLOW UP THE CLINIC CAN\T\#39;T SCHEDULE THE APT FOR THE PATIENT. - PATIENT HAS AN APT 02/06/[address] CHRISTENSEN. 01/25/2021 [facility] VOIDING TRIAL SCHEDULED WITH DR CHRISTENSEN UROLOGIST 02/06/21 01/23/2021 [facility] - PATIENT MAINFRAME CONSULTANT- DR HAMMOND : NEXT February 2021-POSSIBLE PUMP -Address: [address] [place], [place] [id number] UROLOGY REFERRAL SENT TO DR CHRISTENSEN -URGENT REQUEST 01/23/21 FROM [facility] PROVIDER. [place] VISIT COUNT (12 MO.) [address] [place], [place] [address]ony [place] TOTAL 9 NOTE: Visits indicate total known visits. ED/UCC VISIT TRACKING (12 MO.) 05/16/2021 02:28 [facility] [place] TYPE: Emergency COMPLAINT: - ABDOMINAL PAIN 03/01/2021 17:02 [facility] [place] TYPE: Emergency COMPLAINT: - ABDOMINAL PAIN DIAGNOSES: - Allergy status to other antibiotic agents - Allergy status to penicillin - Allergy status to sulfonamides - Urinary tract infection, site not specified - carpet inspector (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 - Dysuria - Hyperlipidemia, unspecified - Other skilled nursing (current) 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 02/02/2021 10:48 [facility] [place] TYPE: Emergency COMPLAINT: - ABD PAIN DIAGNOSES: - Upper abdominal pain, unspecified - Allergy status to sulfonamides - Nausea with vomiting, unspecified - halfway (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 - Type 1 diabetes mellitus with hyperglycemia - Hyperlipidemia, unspecified - Type 2 diabetes mellitus with ketoacidosis without coma - Type 1 diabetes mellitus with ketoacidosis without coma - Allergy status to other antibiotic agents - Type 2 diabetes mellitus with hyperglycemia - Other skilled nursing (current) 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 01/29/2021 21:23 [facility] [place] TYPE: Emergency COMPLAINT: - ABDOMINAL PAIN 01/29/2021 12:46 [facility] [place] TYPE: Emergency COMPLAINT: - CATHETER PROBLEM DIAGNOSES: - Hyperlipidemia, unspecified - Encounter for fitting and adjustment of urinary device - Allergy status to penicillin - Type 2 diabetes mellitus with ketoacidosis without coma - Allergy status to other antibiotic agents - Other burring wheel operator (current) 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 - Allergy status to sulfonamides - carpet inspector (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 01/22/2021 14:23 [facility] [place] TYPE: Emergency COMPLAINT: - ABDOM PAIN DIAGNOSES: - Generalized abdominal pain - Allergy status to sulfonamides - Type 2 diabetes mellitus with ketoacidosis without coma - Allergy status to other antibiotic agents - carpet inspector (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 - Hyperlipidemia, unspecified - Retention of urine, unspecified - Allergy status to penicillin - Other burring wheel operator (current) 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 01/20/2021 18:07 [facility] [place] TYPE: Emergency COMPLAINT: - STOMACH PAIN DIAGNOSES: - Allergy status to penicillin - Type 1 diabetes mellitus with hyperglycemia - Retention of urine, unspecified - carpet inspector (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 - Type 1 diabetes mellitus with ketoacidosis without coma - Other skilled nursing (current) 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 - Generalized abdominal pain - Allergy status to sulfonamides - Allergy status to other antibiotic agents - Hyperlipidemia, unspecified 01/18/2021 15:46 [facility] [place] TYPE: Emergency COMPLAINT: - HIGH BLOOD SUGAR, ABD/CHEST PAIN DIAGNOSES: - Other burring wheel operator (current) 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 - Dehydration - Right upper quadrant pain - Allergy status to sulfonamides - Dizziness and giddiness - Type 2 diabetes mellitus with hyperglycemia - Pure hyperglyceridemia - Acute kidney failure, unspecified - Allergy status to penicillin - carpet inspector (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 - Allergy status to other antibiotic agents - Type 1 diabetes mellitus with ketoacidosis without coma 11/06/2020 23:42 [facility] TYPE: Emergency COMPLAINT: - BLOOD SUGAR ISSUE DIAGNOSES: 1. Calculus of bile duct without cholangitis or cholecystitis without obstruction 2. Type 2 diabetes mellitus with hyperglycemia 3. halfway (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 4. Acute lymphoblastic leukemia, in remission INPATIENT VISIT TRACKING (12 MO.) No inpatient visits to display in this time frame [id number]
== END 2021-05-16 05:32 | disposition home or self-care (01) ==
LOC: ED 02:28
DX: N28.9 Disorder of kidney and ureter, unspecified (principal); R33.9 Retention of urine, unspecified; E11.9 Type 2 diabetes mellitus without complications; E78.1 Pure hyperglyceridemia; Z88.2 Allergy status to sulfonamides; Z88.1 Allergy status to other antibiotic agents; Z88.0 Allergy status to penicillin; Z79.899 Other long term (current) 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; Z79.4 Long term (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
CPT/HCPCS: 51702; 51798; 74176; 80053; 81001; 83690; 84703; 85025; 99284-25

== ENCOUNTER 2021-07-21 20:01 | Emergency (ER) | payer OTHER ==
[~2021-07-21] VITALS: Ht 149.9 cm; Wt 45.4 kg
--- OUTSIDE RECORDS SUMMARY | 2021-07-21 20:04 | XMS ---
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 Care History Medical/Surgical 02/05/2021 [facility] - CHW CALLED AND SPOKE WITH ART GILDER WALDEMAR- DISCUSSED RECENT ED VISITS- PRIMARY CARE PHYSICIAN REVIEWED PATIENT RECENT ED VISITS AND DID CONTACT PATIENT-THEY HAVE INSTRUCTED PATIENT TO CONTACT CLAIMS EXAMINER DR HAMMOND TO SCHEDULE AND EARLIER APT IF POSSIBLE. PATIENT HAS TO MAKE THE APT FOR FOLLOW UP THE CLINIC CAN\T\#39;T SCHEDULE THE APT FOR THE PATIENT. - PATIENT HAS AN APT 02/06/[address] CHRISTENSEN. 01/25/2021 [facility] VOIDING TRIAL SCHEDULED WITH DR CHRISTENSEN UROLOGIST 02/06/21 01/23/2021 [facility] - PATIENT CLAIMS EXAMINER- DR HAMMOND : NEXT APT FEBRUARY 2021-POSSIBLE PUMP -Address: [address] [place], [place] [phone] UROLOGY REFERRAL SENT TO DR CHRISTENSEN -[facility]GENT RE[facility] (12 MO.) 1 [facility] 2 [facility] 10 [facility] TOTAL 13 NOTE: Visits indicate total known visits. ED/UCC VISIT TRACKING (12 MO.) 07[facility]21[facility]2021 [facility] COMPLAINT: - CHEST PAIN 07/13/2021 23:40 [facility] [place] TYPE: Emergency COMPLAINT: - ABD PAIN DIAGNOSES: - Allergy status to other antibiotic agents - Left upper quadrant pain - Other fpc (current) 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 - Type 2 diabetes mellitus with ketoacidosis without coma - Allergy status to sulfonamides - Hyperlipidemia, unspecified - Allergy status to narcotic agent - Urinary tract infection, site not specified - Allergy status to penicillin - Pure hyperglyceridemia - skilled nursing (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 07/13/2021 21:19 [facility] TYPE: Emergency DIAGNOSES: - abd pain 05/17/2021 17:57 [facility] TYPE: Emergency DIAGNOSES: - Abd pain - Unspecified abdominal pain - Acute cystitis without hematuria - Abdominal Pain 05/16/2021 02:28 [facility] [place] TYPE: Emergency COMPLAINT: - ABDOMINAL PAIN DIAGNOSES: - Allergy status to penicillin - Pure hyperglyceridemia - 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 - Type 2 diabetes mellitus without complications - Lower abdominal pain, unspecified - Disorder of kidney and ureter, unspecified - Allergy status to other antibiotic agents - Other fpc (current) 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 - Allergy status to sulfonamides - Retention of urine, unspecified 03/01/2021 17:02 [facility] [place] TYPE: Emergency COMPLAINT: - ABDOMINAL PAIN DIAGNOSES: - Allergy status to other antibiotic agents - Allergy status to penicillin - Allergy status to sulfonamides - Urinary tract infection, site not specified - 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 - Dysuria - Hyperlipidemia, unspecified - Other parts counterman (current) 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 02/02/2021 10:48 [facility] [place] TYPE: Emergency COMPLAINT: - ABD PAIN DIAGNOSES: - Upper abdominal pain, unspecified - Allergy status to sulfonamides - Nausea with vomiting, unspecified - skilled nursing (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 - Type 1 diabetes mellitus with hyperglycemia - Hyperlipidemia, unspecified - Type 2 diabetes mellitus with ketoacidosis without coma - Type 1 diabetes mellitus with ketoacidosis without coma - Allergy status to other antibiotic agents - Type 2 diabetes mellitus with hyperglycemia - Other fpc (current) 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 01/29/2021 21:23 [facility] [place] TYPE: Emergency COMPLAINT: - ABDOMINAL PAIN 01/29/2021 12:46 [facility] [place] TYPE: Emergency COMPLAINT: - CATHETER PROBLEM DIAGNOSES: - Hyperlipidemia, unspecified - Encounter for fitting and adjustment of urinary device - Allergy status to penicillin - Type 2 diabetes mellitus with ketoacidosis without coma - Allergy status to other antibiotic agents - Other parts counterman (current) 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 - Allergy status to sulfonamides - 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 01/22/2021 14:23 [facility] [place] TYPE: Emergency COMPLAINT: - ABDOM PAIN DIAGNOSES: - Generalized abdominal pain - Allergy status to sulfonamides - Type 2 diabetes mellitus with ketoacidosis without coma - Allergy status to other antibiotic agents - skilled nursing (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 - Hyperlipidemia, unspecified - Retention of urine, unspecified - Allergy status to penicillin - Other parts counterman (current) 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 01/20/2021 18:07 [facility] [place] TYPE: Emergency COMPLAINT: - STOMACH PAIN DIAGNOSES: - Allergy status to penicillin - Type 1 diabetes mellitus with hyperglycemia - Retention of urine, unspecified - skilled nursing (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 - Type 1 diabetes mellitus with ketoacidosis without coma - Other parts counterman (current) 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 - Generalized abdominal pain - Allergy status to sulfonamides - Allergy status to other antibiotic agents - Hyperlipidemia, unspecified 01/18/2021 15:46 [facility] TYPE: Emergency COMPLAINT: - HIGH BLOOD SUGAR, ABD/CHEST PAIN DIAGNOSES: - Other fpc (current) 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 - Dehydration - Right upper quadrant pain - Allergy status to sulfonamides - Dizziness and giddiness - Type 2 diabetes mellitus with hyperglycemia - Pure hyperglyceridemia - Acute kidney failure, unspecified - Allergy status to penicillin - 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 Calculus of bile duct without cholangitis or cholecystitis without obstruction 2. Type 2 diabetes mellitus with hyperglycemia 3. 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 Acute lymphoblastic leukemia, in remission INPATIENT VISIT TRACKING (12 MO.) No inpatient visits to display in this time frame [id number]
--- NOTE | 2021-07-23 13:40 | EKG ---
[facility] [address] [facility] [place], [place] [address] Signed Sinus tachycardia Otherwise normal ECG When compared with ECG of 18-MAR-2019 02:34, No significant change was found Confirmed by CISCO VASQUEZ MD ([id number]) on 07/23/2021 1:40:42 PM Electronically Signed By: CISCO VASQUEZ MD 07/23/21 1340 PATIENT NAME: MONTSE GUTIERREZ Electrocardiogram DATE OF : 89 PHYSICIAN: CISCO VASQUEZ MD REPORT #: [id number] REPORT IS CONFIDENTIAL AND NOT TO BE RELEASED WITHOUT AUTHORIZATION
== END 2021-07-21 22:36 | disposition home or self-care (01) ==
LOC: ED 20:01
DX: R07.89 Other chest pain (principal); E11.9 Type 2 diabetes mellitus without complications; E78.5 Hyperlipidemia, unspecified; E78.1 Pure hyperglyceridemia; Z88.2 Allergy status to sulfonamides; Z88.1 Allergy status to other antibiotic agents; Z88.0 Allergy status to penicillin; Z88.5 Allergy status to narcotic agent; Z79.899 Other long term (current) 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; Z79.4 Long term (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
CPT/HCPCS: 71045; 80053; 83605; 83735; 84484; 85025; 87040; 93005; 93010; 99285-25

== ENCOUNTER 2021-07-31 11:37 | Emergency (ER) | payer OTHER ==
[~2021-07-31] VITALS: Ht 149.9 cm; Wt 44.0 kg
--- OUTSIDE RECORDS SUMMARY | 2021-07-31 11:44 | XMS ---
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 PHONE: [phone] Jef has no Care Guidelines for this patient. Care History Medical/Surgical 02/05/2021 [facility] - CHW CALLED AND SPOKE WITH HAND TOUCH UP PAINTER WALDEMAR- DISCUSSED RECENT ED VISITS- PRIMARY CARE PHYSICIAN REVIEWED PATIENT RECENT ED VISITS AND DID CONTACT PATIENT-THEY HAVE INSTRUCTED PATIENT TO CONTACT FILLER ROOM ATTENDANT DR HAMMOND TO SCHEDULE AND EARLIER APT IF POSSIBLE. PATIENT HAS TO MAKE THE APT FOR FOLLOW UP THE CLINIC CAN\T\#39;T SCHEDULE THE APT FOR THE PATIENT. - PATIENT HAS AN APT 02/06/[address] CHRISTENSEN. 01/25/2021 [facility] VOIDING TRIAL SCHEDULED WITH DR CHRISTENSEN UROLOGIST 02/06/21 01/23/2021 [facility] - PATIENT FILLER ROOM ATTENDANT- DR HAMMOND : NEXT APT FEBRUARY 2021-POSSIBLE PUMP -Address: [address] [place], [place] [phone] UROLOGY REFERRAL SENT TO DR CHRISTENSEN -[facility] V[facility] (12 MO.) 1 [facility] 3 [facility] 11 [facility] TOTAL 15 NOTE: Visits indicate total known visits. 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 - Type 2 diabetes mellitus without complications - Allergy status to narcotic agent - Pain in left shoulder - Allergy status to sulfonamides - Hyperlipidemia, unspecified - Allergy status to penicillin - Other chest pain - Pure hyperglyceridemia 07/13/2021 23:40 [facility] [place] TYPE: Emergency COMPLAINT: - ABD PAIN DIAGNOSES: - Allergy status to other antibiotic agents - Left upper quadrant pain - Other intermission coordinator (current) 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 - Type 2 diabetes mellitus with ketoacidosis without coma - Allergy status to sulfonamides - Hyperlipidemia, unspecified - Allergy status to narcotic agent - Urinary tract infection, site not specified - Allergy status to penicillin - Pure hyperglyceridemia - termite control service representative (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 07/13/2021 [facility] DIAGNOSES: - abd pain 05/17/2021 17:57 [facility] TYPE: Emergency DIAGNOSES: - Abd pain - Unspecified abdominal pain - Acute cystitis without hematuria - Abdominal Pain 05/16/2021 02[facility] COMPLAINT: - ABDOMINAL PAIN DIAGNOSES: - Allergy status to penicillin - Pure hyperglyceridemia - group home (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 - Type 2 diabetes mellitus without complications - Lower abdominal pain, unspecified - Disorder of kidney and ureter, unspecified - Allergy status to other antibiotic agents - Other shelter (current) 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 - Allergy status to sulfonamides - Retention of urine, unspecified 03/01/2021 17:02 [facility] [place] TYPE: Emergency COMPLAINT: - ABDOMINAL PAIN DIAGNOSES: - Allergy status to other antibiotic agents - Allergy status to penicillin - Allergy status to sulfonamides - Urinary tract infection, site not specified - termite control service representative (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 - Dysuria - Hyperlipidemia, unspecified - Other shelter (current) 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 02/02/2021 10:48 [facility] [place] TYPE: Emergency COMPLAINT: - ABD PAIN DIAGNOSES: - Upper abdominal pain, unspecified - Allergy status to sulfonamides - Nausea with vomiting, unspecified - termite control service representative (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 - Type 1 diabetes mellitus with hyperglycemia - Hyperlipidemia, unspecified - Type 2 diabetes mellitus with ketoacidosis without coma - Type 1 diabetes mellitus with ketoacidosis without coma - Allergy status to other antibiotic agents - Type 2 diabetes mellitus with hyperglycemia - Other shelter (current) 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 01/29/2021 21:23 [facility] [place] TYPE: Emergency COMPLAINT: - ABDOMINAL PAIN 01/29/2021 12:46 [facility] [place] TYPE: Emergency COMPLAINT: - CATHETER PROBLEM DIAGNOSES: - Hyperlipidemia, unspecified - Encounter for fitting and adjustment of urinary device - Allergy status to penicillin - Type 2 diabetes mellitus with ketoacidosis without coma - Allergy status to other antibiotic agents - Other intermission coordinator (current) 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 - Allergy status to sulfonamides - group home (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 01/22/2021 14:23 [facility] [place] TYPE: Emergency COMPLAINT: - ABDOM PAIN DIAGNOSES: - Generalized abdominal pain - Allergy status to sulfonamides - Type 2 diabetes mellitus with ketoacidosis without coma - Allergy status to other antibiotic agents - group home (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 - Hyperlipidemia, unspecified - Retention of urine, unspecified - Allergy status to penicillin - Other shelter (current) 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 01/20/2021 18:07 [facility] [place] TYPE: Emergency COMPLAINT: - STOMACH PAIN DIAGNOSES: - Allergy status to penicillin - Type 1 diabetes mellitus with hyperglycemia - Retention of urine, unspecified - termite control service representative (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 - Type 1 diabetes mellitus with ketoacidosis without coma - Other intermission coordinator (current) 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 - Generalized abdominal pain - Allergy status to sulfonamides - Allergy status to other antibiotic agents - Hyperlipidemia, unspecified 01/18/2021 15:46 [facility] [place] TYPE: Emergency COMPLAINT: - HIGH BLOOD SUGAR, ABD/CHEST PAIN DIAGNOSES: - Other shelter (current) 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 - Dehydration - Right upper quadrant pain - Allergy status to sulfonamides - Dizziness and giddiness - Type 2 diabetes mellitus with hyperglycemia - Pure hyperglyceridemia - Acute kidney failure, unspecified - Allergy status to penicillin - group home (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 - Allergy status to other antibiotic agents - Type 1 diabetes mellitus with ketoacidosis without coma 11/06/2020 23:42 [facility] TYPE: Emergency COMPLAINT: - BLOOD SUGAR ISSUE DIAGNOSES: 1. Calculus of bile duct without cholangitis or cholecystitis without obstruction 2. Type 2 diabetes mellitus with hyperglycemia 3. 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 Acute lymphoblastic leukemia, in remission INPATIENT VISIT TRACKING (12 MO.) No inpatient visits to display in this time frame [id number]
[2021-07-31] MEDS ORDERED: REGLAN10 MG PO (16:20)
[2021-07-31] MEDS ORDERED: OMEPRAZOLE20 MG PO (16:20)
[2021-07-31] MEDS ORDERED: ONDANSETRON ODT4 MG PO (16:20)
== END 2021-07-31 16:41 | disposition home or self-care (01) ==
LOC: ED 11:37
PROC: 4A0D7LZ Measurement of Urinary Volume, Via Natural or Artificial Opening (ICD-10-PCS; principal; 2021-07-31)
DX: K29.00 Acute gastritis without bleeding (principal); E78.5 Hyperlipidemia, unspecified; E10.9 Type 1 diabetes mellitus without complications; E78.1 Pure hyperglyceridemia; Z88.2 Allergy status to sulfonamides; Z88.1 Allergy status to other antibiotic agents; Z85.6 Personal history of leukemia; Z88.5 Allergy status to narcotic agent; Z79.899 Other long term (current) 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
CPT/HCPCS: 51798; 76705; 80053; 81001; 83690; 84703; 85025; 87088; 99284-25; J1170; J2405; J2765; J7040

== ENCOUNTER 2021-09-09 20:54 | Emergency (ER) | payer OTHER ==
[~2021-09-09] VITALS: Ht 149.9 cm; Wt 48.2 kg
[~2021-09-09 20:54] MED LIST changes: +OMEPRAZOLE20 MG PO; +ONDANSETRON ODT4 MG PO; +REGLAN10 MG PO
--- OUTSIDE RECORDS SUMMARY | 2021-09-09 20:56 | XMS ---
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 Care History Medical/Surgical 02/05/2021 [facility] - CHW CALLED AND SPOKE WITH DATA DEVELOPER WALDEMAR- DISCUSSED RECENT ED VISITS- PRIMARY CARE PHYSICIAN REVIEWED PATIENT RECENT ED VISITS AND DID CONTACT PATIENT-THEY HAVE INSTRUCTED PATIENT TO CONTACT SENIOR INSTRUCTIONAL DESIGNER DR HAMMOND TO SCHEDULE AND EARLIER APT IF POSSIBLE. PATIENT HAS TO MAKE THE APT FOR FOLLOW UP THE CLINIC CAN\T\#39;T SCHEDULE THE APT FOR THE PATIENT. - PATIENT HAS AN APT 02/06/[address] CHRISTENSEN. 01/25/2021 [facility] VOIDING TRIAL SCHEDULED WITH DR CHRISTENSEN UROLOGIST 02/06/21 01/23/2021 [facility] - PATIENT SENIOR INSTRUCTIONAL DESIGNER- DR HAMMOND : NEXT February 2021-POSSIBLE PUMP -Address: [address] [place] [id number] UROLOGY REFERRAL SENT TO DR CHRISTENSEN -URGENT REQUEST 01/23/21 FROM [facility] PROVIDER. [place] VISIT COUNT (12 MO.) 1 [facility] 3 [facility] [address] [facility] [address] [facility] [place] TOTAL 16 NOTE: Visits indicate total known visits. ED/UCC VISIT TRACKING (12 MO.) 09/09/2021 20:54 [facility] [place] TYPE: Emergency COMPLAINT: - CHEST PAIN 07/31/2021 11:38 [facility] [place] TYPE: Emergency COMPLAINT: - ABDOMINAL PAIN DIAGNOSES: - Type 1 diabetes mellitus without complications - Pure hyperglyceridemia - Acute gastritis without bleeding - Allergy status to narcotic agent - Hyperlipidemia, unspecified - Personal history of leukemia - Allergy status to other antibiotic agents - Allergy status to sulfonamides - Other bag liner (current) 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 - Unspecified abdominal pain 07/27/2021 20:55 [facility] [place] TYPE: Emergency DIAGNOSES: - chest pain, left arm pain - Strain of unspecified muscle, fascia and tendon at shoulder and upper arm level, left arm, initial encounter - Chest Pain 07/21/2021 20:03 [facility] TYPE: Emergency COMPLAINT: - CHEST PAIN DIAGNOSES: - Other bag liner (current) 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 - Allergy status to other antibiotic agents - 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 - Type 2 [...] - Left upper quadrant pain - Other bag liner (current) 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 - Type 2 diabetes mellitus with ketoacidosis without coma - Allergy status to sulfonamides - Hyperlipidemia, unspecified - Allergy status to narcotic agent - Urinary tract infection, site not specified - Allergy status to penicillin - Pure hyperglyceridemia - 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 07/13/2021 21:19 [facility]: [facility] DIAGNOSES: - abd pain 05/17/2021 17:57 [facility] DIAGNOSES: - Abd pain - Unspecified abdominal pain - Acute cystitis without hematuria - Abdominal Pain 05/16/2021 02:28 [facility] [place] TYPE: Emergency COMPLAINT: - ABDOMINAL PAIN DIAGNOSES: - Allergy status to penicillin - Pure hyperglyceridemia - 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 - Type 2 diabetes mellitus without complications - Lower abdominal pain, unspecified - Disorder of kidney and ureter, unspecified - Allergy status to other antibiotic agents - Other bag liner (current) 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 - Allergy status to sulfonamides - Retention of urine, unspecified 03/01/2021 17:02 [facility] [place] TYPE: Emergency COMPLAINT: - ABDOMINAL PAIN DIAGNOSES: - Allergy status to other antibiotic agents - Allergy status to penicillin - Allergy status to sulfonamides - Urinary tract infection, site not specified - 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 - Dysuria - Hyperlipidemia, unspecified - Other bag liner (current) 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 02/02/2021 10:48 [facility] [place] TYPE: Emergency COMPLAINT: - ABD PAIN DIAGNOSES: - Upper abdominal pain, unspecified - Allergy status to sulfonamides - Nausea with vomiting, unspecified - 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 - Type 1 diabetes mellitus with hyperglycemia - Hyperlipidemia, unspecified - Type 2 diabetes mellitus with ketoacidosis without coma - Type 1 diabetes mellitus with ketoacidosis without coma - Allergy status to other antibiotic agents - Type 2 diabetes mellitus with hyperglycemia - Other bag liner (current) 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 01/29/2021 21:23 [facility] [place] TYPE: Emergency COMPLAINT: - ABDOMINAL PAIN 01/29/2021 12:46 [facility] [place] TYPE: Emergency COMPLAINT: - CATHETER PROBLEM DIAGNOSES: - Hyperlipidemia, unspecified - Encounter for fitting and adjustment of urinary device - Allergy status to penicillin - Type 2 diabetes mellitus with ketoacidosis without coma - Allergy status to other antibiotic agents - Other bag liner (current) 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 - Allergy status to sulfonamides - MCC (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 01/22/2021 14:23 [facility] [place] TYPE: Emergency COMPLAINT: - ABDOM PAIN DIAGNOSES: - Generalized abdominal pain - Allergy status to sulfonamides - Type 2 diabetes mellitus with ketoacidosis without coma - Allergy status to other antibiotic agents - MCC (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 - Hyperlipidemia, unspecified - Retention of urine, unspecified - Allergy status to penicillin - Other senior care (current) 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 01/20/2021 18:07 [facility] [place] TYPE: Emergency COMPLAINT: - STOMACH PAIN DIAGNOSES: - Allergy status to penicillin - Type 1 diabetes mellitus with hyperglycemia - Retention of urine, unspecified - MCC (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 - Type 1 diabetes mellitus with ketoacidosis without coma - Other bag liner (current) 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 - Generalized abdominal pain - Allergy status to sulfonamides - Allergy status to other antibiotic agents - Hyperlipidemia, unspecified 01/18/2021 15:46 [facility] TYPE: Emergency COMPLAINT: - HIGH BLOOD SUGAR, ABD/CHEST PAIN DIAGNOSES: - Other bag liner (current) 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 - Dehydration - Right upper quadrant pain - Allergy status to sulfonamides - Dizziness and giddiness - Type 2 diabetes mellitus with hyperglycemia - Pure hyperglyceridemia - Acute kidney failure, unspecified - Allergy status to penicillin - 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 Calculus of bile duct without cholangitis or cholecystitis without obstruction 2. Type 2 diabetes mellitus with hyperglycemia 3. MCC (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 4. Acute lymphoblastic leukemia, in remission INPATIENT VISIT TRACKING (12 MO.) No inpatient visits to display in this time frame [email or web address]
--- NOTE | 2021-09-10 18:00 | EKG ---
[facility] [address] [facility] [place], [place] [address] Signed Sinus tachycardia Otherwise normal ECG When compared with ECG of 21-JUL-2021 20:15, No significant change was found Confirmed by KARINA SMILEY DO ([id number]) on 09/10/2021 6:00:19 PM Electronically Signed By: KARINA SMILEY DO 09/10/21 1800 PATIENT NAME: GUILLERMO GUTIERREZSABRINA KAHN Electrocardiogram DATE OF : 89 PHYSICIAN: KARINA SMILEY DO REPORT #: [id number] REPORT IS CONFIDENTIAL AND NOT TO BE RELEASED WITHOUT AUTHORIZATION
== END 2021-09-09 22:48 | disposition home or self-care (01) ==
LOC: ED 20:54
DX: R07.89 Other chest pain (principal); E11.9 Type 2 diabetes mellitus without complications; E78.5 Hyperlipidemia, unspecified; Z88.2 Allergy status to sulfonamides; Z88.1 Allergy status to other antibiotic agents; Z88.0 Allergy status to penicillin; Z88.5 Allergy status to narcotic agent; Z79.899 Other long term (current) 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; Z79.4 Long term (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
CPT/HCPCS: 71046; 84484; 85379; 93005; 93010; 99285-25

== ENCOUNTER 2021-09-27 21:09 | Emergency (ER) | payer OTHER ==
[~2021-09-27] VITALS: Ht 149.9 cm; Wt 48.2 kg
--- OUTSIDE RECORDS SUMMARY | 2021-09-27 21:12 | XMS ---
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 Care History Medical/Surgical 09/24/2021 [facility] Contacted Gerri RUDDlicensed practical nurse clinic nurseLehurpp-Fvkmio-xmlhyore of recent ED visits. They will follow up with the patient. 02/05/2021 [facility] - W CALLED AND SPOKE WITH PSYCHOLOGICAL ANTHROPOLOGIST WALDEMAR- DISCUSSED RECENT ED VISITS- PRIMARY CARE PHYSICIAN REVIEWED PATIENT RECENT ED VISITS AND DID CONTACT PATIENT-THEY HAVE INSTRUCTED PATIENT TO CONTACT ROUGH CARPENTER DR HAMMOND TO SCHEDULE AND EARLIER APT IF POSSIBLE. PATIENT HAS TO MAKE THE APT FOR FOLLOW UP THE CLINIC CAN\T\#39;T SCHEDULE THE APT FOR THE PATIENT. - PATIENT HAS AN APT 02/06/[address] CHRISTENSEN. 01/25/2021 [facility] VOIDING TRIAL SCHEDULED WITH DR CHRISTENSEN UROLOGIST 02/06/21 [place] VISIT COUNT (12 MO.) 1 [facility] 3 [facility] 13 [place] TOTAL 17 NOTE: Visits indicate total known visits. ED/UCC VISIT TRACKING (12 MO.) 09/27/2021 21:10 [facility] [place] TYPE: Emergency COMPLAINT: - ALLERGIC REACTION, SOB 09/09/2021 20:54 [facility] [place] TYPE: Emergency COMPLAINT: - CHEST PAIN DIAGNOSES: - Allergy status to other antibiotic agents - Type 2 diabetes mellitus without complications - termite exterminator (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 - Other chest pain - Hyperlipidemia, unspecified - Other termite inspector (current) 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 - Allergy status to sulfonamides - Allergy status to penicillin - Allergy status to narcotic agent 07/31/2021 11:[address] [facility] [place] TYPE: Emergency COMPLAINT: - ABDOMINAL PAIN DIAGNOSES: - Type 1 diabetes mellitus without complications - Pure hyperglyceridemia - Acute gastritis without bleeding - Allergy status to narcotic agent - Hyperlipidemia, unspecified - Personal history of leukemia - Allergy status to other antibiotic agents - Allergy status to sulfonamides - Other termite inspector (current) 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 - Unspecified abdominal pain 07/27/2021 20:55 [facility] [place] TYPE: Emergency DIAGNOSES: - chest pain, left arm pain - Strain of unspecified muscle, fascia and tendon at shoulder and upper arm level, left arm, initial encounter - Chest Pain 07/21/2021 20:03 [facility] [place] TYPE: Emergency COMPLAINT: - CHEST PAIN DIAGNOSES: - Other senior living (current) 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 - Allergy status to other antibiotic agents - jail (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 - Type 2 diabetes mellitus without complications - Allergy status to narcotic agent - Pain in left shoulder - Allergy status to sulfonamides - Hyperlipidemia, unspecified - Allergy status to penicillin - Other chest pain - Pure hyperglyceridemia 07/13/2021 23:40 [facility] TYPE: Emergency COMPLAINT: - ABD PAIN DIAGNOSES: - Allergy status to other antibiotic agents - Left upper quadrant pain - Other termite inspector (current) 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 - Type 2 diabetes mellitus with ketoacidosis without coma - Allergy status to sulfonamides - Hyperlipidemia, unspecified - Allergy status to narcotic agent - Urinary tract infection, site not specified - Allergy status to penicillin - Pure hyperglyceridemia - termite exterminator (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 07/13/2021 21:19 [facility] [place] TYPE: Emergency DIAGNOSES: - abd pain 05/17/2021 17:57 [facility] [place] TYPE: Emergency DIAGNOSES: - Abd pain - Unspecified abdominal pain - Acute cystitis without hematuria - Abdominal Pain 05/16/2021 02:28 [facility] TYPE: Emergency COMPLAINT: - ABDOMINAL PAIN DIAGNOSES: - Allergy status to penicillin - Pure hyperglyceridemia - 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 exterminator (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 - Type 2 diabetes mellitus without complications - Lower abdominal pain, unspecified - Disorder of kidney and ureter, unspecified - Allergy status to other antibiotic agents - Other senior living (current) 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 - Allergy status to sulfonamides - Retention of urine, unspecified 03/01/2021 17:02 [facility] TYPE: Emergency COMPLAINT: - ABDOMINAL PAIN DIAGNOSES: - Allergy status to other antibiotic agents - Allergy status to penicillin - Allergy status to sulfonamides - Urinary tract infection, site not specified - termite exterminator (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 - Dysuria - Hyperlipidemia, unspecified - Other termite inspector (current) 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 02/02/2021 10:48 [facility] [place] TYPE: Emergency COMPLAINT: - ABD PAIN DIAGNOSES: - Upper abdominal pain, unspecified - Allergy status to sulfonamides - Nausea with vomiting, unspecified - jail (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 - Type 1 diabetes mellitus with hyperglycemia - Hyperlipidemia, unspecified - Type 2 diabetes mellitus with ketoacidosis without coma - Type 1 diabetes mellitus with ketoacidosis without coma - Allergy status to other antibiotic agents - Type 2 diabetes mellitus with hyperglycemia - Other senior living (current) 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 01/29/2021 21:23 [facility] [place] TYPE: Emergency COMPLAINT: - ABDOMINAL PAIN 01/29/2021 12:46 [facility] [place] TYPE: Emergency COMPLAINT: - CATHETER PROBLEM DIAGNOSES: - Hyperlipidemia, unspecified - Encounter for fitting and adjustment of urinary device - Allergy status to penicillin - Type 2 diabetes mellitus with ketoacidosis without coma - Allergy status to other antibiotic agents - Other termite inspector (current) 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 - Allergy status to sulfonamides - termite exterminator (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 01/22/2021 14:23 [facility] [place] TYPE: Emergency COMPLAINT: - ABDOM PAIN DIAGNOSES: - Generalized abdominal pain - Allergy status to sulfonamides - Type 2 diabetes mellitus with ketoacidosis without coma - Allergy status to other antibiotic agents - jail (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 - Hyperlipidemia, unspecified - Retention of urine, unspecified - Allergy status to penicillin - Other termite inspector (current) 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 01/20/2021 18:07 [facility] [place] TYPE: Emergency COMPLAINT: - STOMACH PAIN DIAGNOSES: - Allergy status to penicillin - Type 1 diabetes mellitus with hyperglycemia - Retention of urine, unspecified - termite exterminator (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 - Type 1 diabetes mellitus with ketoacidosis without coma - Other senior living (current) 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 - Generalized abdominal pain - Allergy status to sulfonamides - Allergy status to other antibiotic agents - Hyperlipidemia, unspecified 01/18/2021 15:46 [facility] [place] TYPE: Emergency COMPLAINT: - HIGH BLOOD SUGAR, ABD/CHEST PAIN DIAGNOSES: - Other termite inspector (current) 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 - Dehydration - Right upper quadrant pain - Allergy status to sulfonamides - Dizziness and giddiness - Type 2 diabetes mellitus with hyperglycemia - Pure hyperglyceridemia - Acute kidney failure, unspecified - Allergy status to penicillin - termite exterminator (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 - Allergy status to other antibiotic agents - Type 1 diabetes mellitus with ketoacidosis without coma 11/06/2020 23:42 [facility] TYPE: Emergency COMPLAINT: - BLOOD SUGAR ISSUE DIAGNOSES: 1. Calculus of bile duct without cholangitis or cholecystitis without obstruction 2. Type 2 diabetes mellitus with hyperglycemia 3. termite exterminator (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 4. Acute lymphoblastic leukemia, in remission INPATIENT VISIT TRACKING (12 MO.) No inpatient visits to display in this time frame [email or web address]
== END 2021-09-27 23:20 | disposition home or self-care (01) ==
LOC: ED 21:09
DX: R22.0 Localized swelling, mass and lump, head (principal); T46.4X5A Adverse effect of angiotensin-converting-enzyme inhibitors, initial encounter; E11.22 Type 2 diabetes mellitus with diabetic chronic kidney disease; E78.5 Hyperlipidemia, unspecified; N18.9 Chronic kidney disease, unspecified; Z88.2 Allergy status to sulfonamides; Z88.8 Allergy status to other drugs, medicaments and biological substances; Z88.1 Allergy status to other antibiotic agents; Z88.0 Allergy status to penicillin; Z88.5 Allergy status to narcotic agent; Z79.899 Other long term (current) 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; Z79.4 Long term (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
CPT/HCPCS: 71045; 96374; 96375; 99283-25; J1100; J1200

== ENCOUNTER 2021-10-24 21:04 | Emergency (ER) | payer OTHER ==
[~2021-10-24] VITALS: Ht 149.9 cm; Wt 46.0 kg
--- OUTSIDE RECORDS SUMMARY | 2021-10-24 21:06 | XMS ---
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 Care History Medical/Surgical 09/24/2021 [facility] Contacted Gerri RUDDdinkey driverSmcaqvd-Kfeyba-awsclmur of recent ED visits. They will follow up with the patient. 02/05/2021 [facility] - W CALLED AND SPOKE WITH BLACKJACK SUPERVISOR WALDEMAR- DISCUSSED RECENT ED VISITS- PRIMARY CARE PHYSICIAN REVIEWED PATIENT RECENT ED VISITS AND DID CONTACT PATIENT-THEY HAVE INSTRUCTED PATIENT TO CONTACT LOOP TENDER DR HAMMOND TO SCHEDULE AND EARLIER APT IF POSSIBLE. PATIENT HAS TO MAKE THE APT FOR FOLLOW UP THE CLINIC CAN\T\#39;T SCHEDULE THE APT FOR THE PATIENT. - PATIENT HAS AN APT 02/06/[address] CHRISTENSEN. 01/25/2021 [facility] VOIDING TRIAL SCHEDULED WITH DR CHRISTENSEN UROLOGIST 02/06/21 [place] VISIT COUNT (12 MO.) 1 [facility] 3 [facility] [place] [facility] 18 NOTE: Visits indicate total known visits. ED/UCC VISIT TRACKING (12 MO.) 10/24/2021 21:04 [facility] [place] [facility]: Emergency COMPLAINT: - ABD AND BACK PAIN 09/27/2021 21:10 [facility] [place] TYPE: Emergency COMPLAINT: - ALLERGIC REACTION, SOB DIAGNOSES: - Localized swelling, mass and lump, head - Allergy status to other drugs, medicaments and biological substances - Allergy status to narcotic agent - Hyperlipidemia, unspecified - Allergy status to sulfonamides - Adverse effect of suoiyyhpght-bbpqthnqxn-lbcfra inhibitors, initial encounter - Chronic kidney disease, unspecified - Other care home (current) 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 - Type 2 diabetes mellitus with diabetic chronic kidney disease - tank terminal gauger (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 - Allergy status to other antibiotic agents - Allergy status to penicillin 09/09/2021 20:54 [facility] [place] TYPE: Emergency COMPLAINT: - CHEST PAIN DIAGNOSES: - Allergy status to other antibiotic agents - Type 2 diabetes mellitus without complications - tank terminal gauger (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 - Other chest pain - Hyperlipidemia, unspecified - Other care home (current) 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 - Allergy status to sulfonamides - Allergy status to penicillin - Allergy status to narcotic agent 07/31/2021 11:38 [facility] [place] TYPE: Emergency COMPLAINT: - ABDOMINAL PAIN DIAGNOSES: - Type 1 diabetes mellitus without complications - Pure hyperglyceridemia - Acute gastritis without bleeding - Allergy status to narcotic agent - Hyperlipidemia, unspecified - Personal history of leukemia - Allergy status to other antibiotic agents - Allergy status to sulfonamides - Other care home (current) 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 - Unspecified abdominal pain 07/27/2021 20:[facility] DIAGNOSES: - chest pain, left arm pain - Strain of unspecified muscle, fascia and tendon at shoulder and upper arm level, left arm, initial encounter - Chest Pain 07/21/2021 20:03 [facility] TYPE: Emergency COMPLAINT: - CHEST PAIN DIAGNOSES: - Other 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 frame tender (current) 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 - Allergy status to other antibiotic agents - skilled nursing (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 - Type 2 [...] - Left upper quadrant pain - Other 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 frame tender (current) 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 - Type 2 diabetes mellitus with ketoacidosis without coma - Allergy status to sulfonamides - Hyperlipidemia, unspecified - Allergy status to narcotic agent - Urinary tract infection, site not specified - Allergy status to penicillin - Pure hyperglyceridemia - skilled nursing (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 07/13/2021 21:19 [facility] [place]: Emergency DIAGNOSES: - abd pain 05/17/2021 17:57 [facility] [place] [facility]: Emergency DIAGNOSES: - Abd pain - Unspecified abdominal pain - Acute cystitis without hematuria - Abdominal Pain 05/16/2021 02:28 [facility] TYPE: Emergency COMPLAINT: - ABDOMINAL PAIN DIAGNOSES: - Allergy status to penicillin - Pure hyperglyceridemia - skilled nursing (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 - Type 2 diabetes mellitus without complications - Lower abdominal pain, unspecified - Disorder of kidney and ureter, unspecified - Allergy status to other antibiotic agents - Other 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 frame tender (current) 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 - Allergy status to sulfonamides - Retention of urine, unspecified 03/01/2021 17:02 [facility] [place] TYPE: Emergency COMPLAINT: - ABDOMINAL PAIN DIAGNOSES: - Allergy status to other antibiotic agents - Allergy status to penicillin - Allergy status to sulfonamides - Urinary tract infection, site not specified - tank terminal gauger (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 - Dysuria - Hyperlipidemia, unspecified - Other 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 frame tender (current) 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 02/02/2021 10:48 W[facility] Lynch [...] 2 diabetes mellitus with hyperglycemia - Other 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 frame tender (current) 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 01/29/2021 21:23 [facility] [place] TYPE: Emergency COMPLAINT: - ABDOMINAL PAIN 01/29/2021 12:46 [facility] [place] TYPE: Emergency COMPLAINT: - CATHETER PROBLEM DIAGNOSES: - Hyperlipidemia, unspecified - Encounter for fitting and adjustment of urinary device - Allergy status to penicillin - Type 2 diabetes mellitus with ketoacidosis without coma - Allergy status to other antibiotic agents - Other 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 frame tender (current) 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 - Allergy status to sulfonamides - skilled nursing (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 01/22/2021 14:23 [facility] [place] TYPE: Emergency COMPLAINT: - ABDOM PAIN DIAGNOSES: - Generalized abdominal pain - Allergy status to sulfonamides - Type 2 diabetes mellitus with ketoacidosis without coma - Allergy status to other antibiotic agents - tank terminal gauger (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 - Hyperlipidemia, unspecified - Retention of urine, unspecified - Allergy status to penicillin - Other 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 frame tender (current) 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 01/20/2021 18:07 [facility] [place] TYPE: Emergency COMPLAINT: - STOMACH PAIN DIAGNOSES: - Allergy status to penicillin - Type 1 diabetes mellitus with hyperglycemia - Retention of urine, unspecified - skilled nursing (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 - Type 1 diabetes mellitus with ketoacidosis without coma - Other 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 frame tender (current) 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 - Generalized abdominal pain - Allergy status to sulfonamides - Allergy status to other antibiotic agents - Hyperlipidemia, unspecified 01/18/2021 15:46 [facility] [place] TYPE: Emergency COMPLAINT: - HIGH BLOOD SUGAR, ABD/CHEST PAIN DIAGNOSES: - Other 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 frame tender (current) 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 - Dehydration - Right upper quadrant pain - Allergy status to sulfonamides - Dizziness and giddiness - Type 2 diabetes mellitus with hyperglycemia - Pure hyperglyceridemia - Acute kidney failure, unspecified - Allergy status to penicillin - tank terminal gauger (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 - Allergy status to other antibiotic agents - Type 1 diabetes mellitus with ketoacidosis without coma 11/06/2020 23:42 [facility] TYPE: Emergency COMPLAINT: - BLOOD SUGAR ISSUE DIAGNOSES: 1. Calculus of bile duct without cholangitis or cholecystitis without obstruction 2. Type 2 diabetes mellitus with hyperglycemia 3. skilled nursing (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 4. Acute lymphoblastic leukemia, in remission INPATIENT VISIT TRACKING (12 MO.) No inpatient visits to display in this time frame [email or web address]
[2021-10-25] MEDS ORDERED: CEPHALEXIN500 MG PO (00:54)
== END 2021-10-25 01:10 | disposition home or self-care (01) ==
LOC: ED 21:04
DX: N39.0 Urinary tract infection, site not specified (principal); R10.12 Left upper quadrant pain; E78.5 Hyperlipidemia, unspecified; E11.22 Type 2 diabetes mellitus with diabetic chronic kidney disease; N18.9 Chronic kidney disease, unspecified; Z88.2 Allergy status to sulfonamides; Z88.5 Allergy status to narcotic agent; Z88.0 Allergy status to penicillin; Z88.1 Allergy status to other antibiotic agents; Z79.4 Long term (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; Z79.899 Other long term (current) 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
CPT/HCPCS: 36415; 74176; 80053; 81001; 83690; 84703; 85025; 87088; 96365; 96375; 99284-25; J0696; J1885

== ENCOUNTER 2021-11-02 23:59 | Emergency (ER) | payer OTHER ==
[~2021-11-02] VITALS: Ht 149.9 cm; Wt 45.8 kg
--- OUTSIDE RECORDS SUMMARY | 2021-11-03 00:02 | XMS ---
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 Care History Medical/Surgical 09/24/2021 [facility] Contacted Gerri RUDDchemical unit operatorDfrfvgn-[id number]-[id number] of recent ED visits. They will follow up with the patient. 02/05/2021 [facility] - W CALLED AND SPOKE WITH MACHINE TAPER WALDEMAR- DISCUSSED RECENT ED VISITS- PRIMARY CARE PHYSICIAN REVIEWED PATIENT RECENT ED VISITS AND DID CONTACT PATIENT-THEY HAVE INSTRUCTED PATIENT TO CONTACT MANAGER METROLOGY DR HAMMOND TO SCHEDULE AND EARLIER APT IF POSSIBLE. PATIENT HAS TO MAKE THE APT FOR FOLLOW UP THE CLINIC CAN\T\#39;T SCHEDULE THE APT FOR THE PATIENT. - PATIENT HAS AN APT 02/06/[address] CHRISTENSEN. 01/25/2021 [facility] VOIDING TRIAL SCHEDULED WITH DR CHRISTENSEN UROLOGIST 02/06/21 [place] VISIT COUNT (12 MO.) 1 [facility] 3 [facility] 15 [facility] [place] TOTAL 19 NOTE: Visits indicate total known visits. ED/UCC VISIT TRACKING (12 MO.) 11/02/2021 23:59 [facility] [place] TYPE: Emergency COMPLAINT: - CHEST PAIN 10/24/2021 21:04 [facility] [place] TYPE: Emergency COMPLAINT: - ABDOMINAL PAIN DIAGNOSES: - Allergy status to narcotic agent - Type 2 diabetes mellitus with diabetic chronic kidney disease - Allergy status to penicillin - Allergy status to other antibiotic agents - Urinary tract infection, site not specified - Other 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 designer (current) 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 - Hyperlipidemia, unspecified - shelter (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 - Left upper quadrant pain - Allergy status to sulfonamides - Chronic kidney disease, unspecified - Unspecified abdominal pain 09/27/2021 21:10 [facility] [place] TYPE: Emergency COMPLAINT: - ALLERGIC REACTION, SOB DIAGNOSES: - Localized swelling, mass and lump, head - Allergy status to other drugs, medicaments and biological substances - Allergy status to narcotic agent - Hyperlipidemia, unspecified - Allergy status to sulfonamides - Adverse effect of gdrhpsjqbea-brhkedbojh-akdtvi inhibitors, initial encounter - Chronic kidney disease, unspecified - Other group home (current) 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 - Type 2 diabetes mellitus with diabetic chronic kidney disease - shelter (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 - Allergy status to other antibiotic agents - Allergy status to penicillin 09/09/2021 20:54 [facility] [place] TYPE: Emergency COMPLAINT: - CHEST PAIN DIAGNOSES: - Allergy status to other antibiotic agents - Type 2 diabetes mellitus without complications - 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 - Other chest pain - Hyperlipidemia, unspecified - Other 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 designer (current) 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 - Allergy status to sulfonamides - Allergy status to penicillin - Allergy status to narcotic agent 07/31/2021 11:38 [facility] TYPE: Emergency COMPLAINT: - ABDOMINAL PAIN DIAGNOSES: - Type 1 diabetes mellitus without complications - Pure hyperglyceridemia - Acute gastritis without bleeding - Allergy status to narcotic agent - Hyperlipidemia, unspecified - Personal history of leukemia - Allergy status to other antibiotic agents - Allergy status to sulfonamides - Other group home (current) 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 - Unspecified abdominal pain 07/27/2021 20:55 [facility] [place] TYPE: Emergency DIAGNOSES: - chest pain, left arm pain - Strain of unspecified muscle, fascia and tendon at shoulder and upper arm level, left arm, initial encounter - Chest Pain 07/21/2021 20:03 [facility] 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 [facility] DIAGNOSES: - abd pain 05/17/2021 17:57 [facility] DIAGNOSES: - Abd pain - Unspecified abdominal pain - Acute cystitis without hematuria - Abdominal Pain 05/16/2021 02:28 [facility] [place] TYPE: Emergency COMPLAINT: - ABDOMINAL PAIN DIAGNOSES: - Allergy status to penicillin - Pure hyperglyceridemia - shelter (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 - Type 2 diabetes mellitus without complications - Lower abdominal pain, unspecified - Disorder of kidney and ureter, unspecified - Allergy status to other antibiotic agents - Other 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 designer (current) 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 - Allergy status to sulfonamides - Retention of urine, unspecified 03/01/2021 17:02 [facility] [place] TYPE: Emergency COMPLAINT: - ABDOMINAL PAIN DIAGNOSES: - Allergy status to other antibiotic agents - Allergy status to penicillin - Allergy status to sulfonamides - Urinary tract infection, site not specified - 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 - Dysuria - Hyperlipidemia, unspecified - Other 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 designer (current) 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 02/02/2021 10:48 [facility] [place] TYPE: Emergency COMPLAINT: - ABD PAIN DIAGNOSES: - Upper abdominal pain, unspecified - Allergy status to sulfonamides - Nausea with vomiting, unspecified - 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 - Type 1 diabetes mellitus with hyperglycemia - Hyperlipidemia, unspecified - Type 2 diabetes mellitus with ketoacidosis without coma - Type 1 diabetes mellitus with ketoacidosis without coma - Allergy status to other antibiotic agents - Type 2 diabetes mellitus with hyperglycemia - Other 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 designer (current) 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 01/29/2021 21:23 [facility] [place] TYPE: Emergency COMPLAINT: - ABDOMINAL PAIN 01/29/2021 12:46 [facility] [place] TYPE: Emergency COMPLAINT: - CATHETER PROBLEM DIAGNOSES: - Hyperlipidemia, unspecified - Encounter for fitting and adjustment of urinary device - Allergy status to penicillin - Type 2 diabetes mellitus with ketoacidosis without coma - Allergy status to other antibiotic agents - Other 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 designer (current) 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 - Allergy status to sulfonamides - shelter (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 01/22/2021 14:23 [facility] [place] TYPE: Emergency COMPLAINT: - ABDOM PAIN DIAGNOSES: - Generalized abdominal pain - Allergy status to sulfonamides - Type 2 diabetes mellitus with ketoacidosis without coma - Allergy status to other antibiotic agents - shelter (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 - Hyperlipidemia, unspecified - Retention of urine, unspecified - Allergy status to penicillin - Other 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 designer (current) 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 01/20/2021 18:07 [facility] [place] TYPE: Emergency COMPLAINT: - STOMACH PAIN DIAGNOSES: - Allergy status to penicillin - Type 1 diabetes mellitus with hyperglycemia - Retention of urine, unspecified - shelter (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 - Type 1 diabetes mellitus with ketoacidosis without coma - Other 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 designer (current) 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 - Generalized abdominal pain - Allergy status to sulfonamides - Allergy status to other antibiotic agents - Hyperlipidemia, unspecified 01/18/2021 15:46 [facility] [place] TYPE: Emergency COMPLAINT: - HIGH BLOOD SUGAR, ABD/CHEST PAIN DIAGNOSES: - Other 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 designer (current) 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 - Dehydration - Right upper quadrant pain - Allergy status to sulfonamides - Dizziness and giddiness - Type 2 diabetes mellitus with hyperglycemia - Pure hyperglyceridemia - Acute kidney failure, unspecified - Allergy status to penicillin - 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 Calculus of bile duct without cholangitis or cholecystitis without obstruction 2. Type 2 diabetes mellitus with hyperglycemia 3. shelter (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 4. Acute lymphoblastic leukemia, in remission INPATIENT VISIT TRACKING (12 MO.) No inpatient visits to display in this time frame [id number]
--- NOTE | 2021-11-06 13:42 | EKG ---
[facility] [address] [facility] [place] [address] Signed Normal sinus rhythm Normal ECG When compared with ECG of 09-SEP-2021 20:58, No significant change was found Confirmed by CISCO VASQUEZ MD ([id number]) on 11/06/2021 1:42:04 PM Electronically Signed By: CISCO VASQUEZ MD 11/06/212 PATIENT NAME: GUILLERMO GUTIERREZSABRINA KAHN Electrocardiogram DATE OF : 89 PHYSICIAN: CISCO VASQUEZ MD REPORT #: [id number] REPORT IS CONFIDENTIAL AND NOT TO BE RELEASED WITHOUT AUTHORIZATION
== END 2021-11-03 01:39 | disposition home or self-care (01) ==
LOC: ED 23:59
DX: R07.89 Other chest pain (principal); E11.9 Type 2 diabetes mellitus without complications; E78.5 Hyperlipidemia, unspecified; I10 Essential (primary) hypertension; Z88.2 Allergy status to sulfonamides; Z88.8 Allergy status to other drugs, medicaments and biological substances; Z88.1 Allergy status to other antibiotic agents; Z88.0 Allergy status to penicillin; Z79.899 Other long term (current) 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; Z79.4 Long term (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; Z88.5 Allergy status to narcotic agent
CPT/HCPCS: 36415; 71045; 84484; 85025; 85379; 93005; 93010; 99285-25

== ENCOUNTER 2021-11-08 00:36 | Emergency (ER) | payer OTHER ==
[~2021-11-08] VITALS: Ht 149.9 cm; Wt 46.0 kg
--- OUTSIDE RECORDS SUMMARY | 2021-11-08 00:38 | XMS ---
PreManage Notification: MONTSE GUTIERREZ Security Diabetes Nurse Events No recent Security Events currently on file CRITERIA MET - [facility] - 2 Visits in 30 Days - 6 ED Visits in 6 Months - [facility] - Has Care Guidelines CARE PROVIDERS SAUL THORPE Physician Carpenters Supervisor 03/19/2019-[facility] PHONE: Unknown [facility] 01/22/2021-[facility] PHONE: [phone] Jef has no Care Guidelines for this patient. Care History Medical/Surgical 09/24/2021 [facility] Contacted Gerri RUDDcomputer networkerBauntae-Tpfgxk-wlplwqwd of recent ED visits. They will follow up with the patient. 02/05/2021 [facility] - W CALLED AND SPOKE WITH EASEMENT WORKER WALDEMAR- DISCUSSED RECENT ED VISITS- PRIMARY CARE PHYSICIAN REVIEWED PATIENT RECENT ED VISITS AND DID CONTACT PATIENT-THEY HAVE INSTRUCTED PATIENT TO CONTACT INNOVATIONS PARAPROFESSIONAL DR HAMMOND TO SCHEDULE AND EARLIER APT IF POSSIBLE. PATIENT HAS TO MAKE THE APT FOR FOLLOW UP THE CLINIC CAN\T\#39;T SCHEDULE THE APT FOR THE PATIENT. - PATIENT HAS AN APT 02/06/[address] CHRISTENSEN. 01/25/2021 [facility] VOIDING TRIAL SCHEDULED WITH DR CHRISTENSEN UROLOGIST 02/06/21 [place] VISIT COUNT (12 MO.) 3 [facility] NOTE: Visits indicate total known visits. ED/UCC VISIT TRACKING (12 MO.) [facility] [place] [facility] COMPLAINT: - HIGH BP, DIZZY 11/02/2021 23:59 [facility] [place] TYPE: Emergency COMPLAINT: - CHEST PAIN DIAGNOSES: - Allergy status to narcotic agent - Allergy status to sulfonamides - Allergy status to penicillin - custodial (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 - Other long term care phlebotomist (current) 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 - Essential (primary) hypertension - Hyperlipidemia, unspecified - Type 2 diabetes mellitus without complications - Other chest pain - Allergy status to other drugs, medicaments and biological substances - Allergy status to other antibiotic agents 10/24/2021 21:04 [facility] [place] TYPE: Emergency COMPLAINT: - ABDOMINAL PAIN DIAGNOSES: - Allergy status to narcotic agent - Type 2 diabetes mellitus with diabetic chronic kidney disease - Allergy status to penicillin - Allergy status to other antibiotic agents - Urinary tract infection, site not specified - Other residential (current) 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 - Hyperlipidemia, unspecified - supervisor 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s (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 - Left upper [...] status to sulfonamides - Adverse effect of ogoivpnctwh-ljfawprwkh-zgmkjm inhibitors, initial encounter - Chronic kidney disease, unspecified - Other long term care phlebotomist (current) 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 - Type 2 diabetes mellitus with diabetic chronic kidney disease - custodial (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 - Allergy status to other antibiotic agents - Allergy status to penicillin 09/09/2021 20:54 [facility] [place] TYPE: Emergency COMPLAINT: - CHEST PAIN DIAGNOSES: - Allergy status to other antibiotic agents - Type 2 diabetes mellitus without complications - custodial (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 - Other chest pain - Hyperlipidemia, unspecified - Other long term care phlebotomist (current) 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 - Allergy status to [...] - Allergy status to sulfonamides - Other long term care phlebotomist (current) 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 - Unspecified abdominal pain 07/27/2021 20:55 [facility] [place] TYPE: Emergency DIAGNOSES: - chest pain, left arm pain - Strain of unspecified muscle, fascia and tendon at shoulder and upper arm level, left arm, initial encounter - Chest Pain 07/21/2021 20:03 [facility] TYPE: Emergency COMPLAINT: - CHEST PAIN DIAGNOSES: - Other residential (current) 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 - Allergy status to other antibiotic agents - supervisor 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s (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 - Type 2 [...] - Left upper quadrant pain - Other long term care phlebotomist (current) 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 - Type 2 diabetes mellitus with ketoacidosis without coma - Allergy status to sulfonamides - Hyperlipidemia, unspecified - Allergy status to narcotic agent - Urinary tract infection, site not specified - Allergy status to penicillin - Pure hyperglyceridemia - custodial (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 07/13/2021 21:19 [facility] [place] TYPE: Emergency DIAGNOSES: - abd pain 05/17/2021 17[facility] [facility] [place] [facility]: Emergency DIAGNOSES: - Abd pain - Unspecified abdominal pain - Acute cystitis without hematuria - Abdominal Pain 05/16/2021 02:28 [facility] TYPE: Emergency COMPLAINT: - ABDOMINAL PAIN DIAGNOSES: - Allergy status to penicillin - Pure hyperglyceridemia - supervisor 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s (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 - Type 2 diabetes mellitus without complications - Lower abdominal pain, unspecified - Disorder of kidney and ureter, unspecified - Allergy status to other antibiotic agents - Other residential (current) 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 - Allergy status to sulfonamides - Retention of urine, unspecified 03/01/2021 17:02 [facility] TYPE: Emergency COMPLAINT: - ABDOMINAL PAIN DIAGNOSES: - Allergy status to other antibiotic agents - Allergy status to penicillin - Allergy status to sulfonamides - Urinary tract infection, site not specified - custodial (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 - Dysuria - Hyperlipidemia, unspecified - Other residential (current) 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 02/02/2021 10:48 [facility] [place] TYPE: Emergency COMPLAINT: - ABD PAIN DIAGNOSES: - Upper abdominal pain, unspecified - Allergy status to sulfonamides - Nausea with vomiting, unspecified - custodial (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 - Type 1 diabetes mellitus with hyperglycemia - Hyperlipidemia, unspecified - Type 2 diabetes mellitus with ketoacidosis without coma - Type 1 diabetes mellitus with ketoacidosis without coma - Allergy status to other antibiotic agents - Type 2 diabetes mellitus with hyperglycemia - Other residential (current) 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 01/29/2021 21:23 [facility] [place] TYPE: Emergency COMPLAINT: - ABDOMINAL PAIN 01/29/2021 12:46 [facility] [place] TYPE: Emergency COMPLAINT: - CATHETER PROBLEM DIAGNOSES: - Hyperlipidemia, unspecified - Encounter for fitting and adjustment of urinary device - Allergy status to penicillin - Type 2 diabetes mellitus with ketoacidosis without coma - Allergy status to other antibiotic agents - Other long term care phlebotomist (current) 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 - Allergy status to sulfonamides - supervisor 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s (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 01/22/2021 14:23 [facility] [place] TYPE: Emergency COMPLAINT: - ABDOM PAIN DIAGNOSES: - Generalized abdominal pain - Allergy status to sulfonamides - Type 2 diabetes mellitus with ketoacidosis without coma - Allergy status to other antibiotic agents - supervisor 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s (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 - Hyperlipidemia, unspecified - Retention of urine, unspecified - Allergy status to penicillin - Other residential (current) 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 01/20/2021 18:07 [facility] [place] TYPE: Emergency COMPLAINT: - STOMACH PAIN DIAGNOSES: - Allergy status to penicillin - Type 1 diabetes mellitus with hyperglycemia - Retention of urine, unspecified - custodial (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 - Type 1 diabetes mellitus with ketoacidosis without coma - Other residential (current) 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 - Generalized abdominal pain - Allergy status to sulfonamides - Allergy status to other antibiotic agents - Hyperlipidemia, unspecified 01/18/2021 15:[address] [facility] [place] TYPE: Emergency COMPLAINT: - HIGH BLOOD SUGAR, ABD/CHEST PAIN DIAGNOSES: - Other residential (current) 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 - Dehydration - Right upper quadrant pain - Allergy status to sulfonamides - Dizziness and giddiness - Type 2 diabetes mellitus with hyperglycemia - Pure hyperglyceridemia - Acute kidney failure, unspecified - Allergy status to penicillin - custodial (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 - Allergy status to other antibiotic agents - Type 1 diabetes mellitus with ketoacidosis without coma INPATIENT VISIT TRACKING (12 MO.) No inpatient visits to display in this time frame [email or web address]
[2021-11-08] MEDS ORDERED: PEPCID20 MG PO (00:49)
--- NOTE | 2021-11-08 16:22 | EKG ---
[facility] [address] [facility] [address] [place], [place] [address] Signed Normal sinus rhythm Normal ECG When compared with ECG of 03-NOV-2021 00:04, No significant change was found Confirmed by KARINA SMILEY DO ([id number]) on 11/08/2021 4:22:09 PM Electronically Signed By: KARINA SMILEY DO 11/08/211621 PATIENT NAME: RASHMI GUTIERREZADDY KHAN Electrocardiogram DATE OF : 89 PHYSICIAN: KARINA SMILEY DO REPORT #: [id number] REPORT IS CONFIDENTIAL AND NOT TO BE RELEASED WITHOUT AUTHORIZATION
== END 2021-11-08 02:45 | disposition home or self-care (01) ==
LOC: ED 00:36
DX: R07.89 Other chest pain (principal); R06.00 Dyspnea, unspecified; R42 Dizziness and giddiness; E78.00 Pure hypercholesterolemia, unspecified; I10 Essential (primary) hypertension; E11.10 Type 2 diabetes mellitus with ketoacidosis without coma; E11.22 Type 2 diabetes mellitus with diabetic chronic kidney disease; I12.9 Hypertensive chronic kidney disease with stage 1 through stage 4 chronic kidney disease, or unspecified chronic kidney disease; N18.9 Chronic kidney disease, unspecified; Z88.2 Allergy status to sulfonamides; Z88.8 Allergy status to other drugs, medicaments and biological substances; Z88.0 Allergy status to penicillin; Z88.1 Allergy status to other antibiotic agents; Z88.5 Allergy status to narcotic agent; Z79.84 Long term (current) use of oral hypoglycemic drugs; Z79.899 Other long term (current) 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
CPT/HCPCS: 36415; 71046; 80053; 84484; 84703; 85025; 85379; 93005; 93010; 96374; 99285-25; A9270; J2060

== ENCOUNTER 2021-11-26 22:29 | Emergency (ER) | payer OTHER ==
[~2021-11-26] VITALS: Ht 149.9 cm; Wt 47.2 kg
--- OUTSIDE RECORDS SUMMARY | 2021-11-26 22:32 | XMS ---
PreManage Notification: MONTSE GUTIERREZ Security Code Official Events No recent Security Events currently on file CRITERIA MET - [facility] - 2 Visits in 30 Days - 6 ED Visits in 6 Months - [facility] - Has Care Guidelines CARE PROVIDERS SAUL THORPE Physician Dental Hygienist 03/19/2019-[facility] PHONE: Unknown [facility] 01/22/2021-[facility] PHONE: [phone] Jef has no Care Guidelines for this patient. Care History Medical/Surgical 09/24/2021 [facility] Contacted Gerri RUDDpowder coaterZwkvtfa-Hkeddg-kqtzrupm of recent ED visits. They will follow up with the patient. 02/05/2021 [facility] - W CALLED AND SPOKE WITH BUILDING CONSTRUCTION PROFESSOR WALDEMAR- DISCUSSED RECENT ED VISITS- PRIMARY CARE PHYSICIAN REVIEWED PATIENT RECENT ED VISITS AND DID CONTACT PATIENT-THEY HAVE INSTRUCTED PATIENT TO CONTACT PROCESSES CHEMICAL DESIGN ENGINEER DR HAMMOND TO SCHEDULE AND EARLIER APT IF POSSIBLE. PATIENT HAS TO MAKE THE APT FOR FOLLOW UP THE CLINIC CAN\T\#39;T SCHEDULE THE APT FOR THE PATIENT. - PATIENT HAS AN APT 02/06/[address] CHRISTENSEN. 01/25/2021 [facility] VOIDING TRIAL SCHEDULED WITH DR CHRISTENSEN UROLOGIST 02/06/21 [place] VISIT COUNT (12 MO.) [address] Nita Odonnell [address] [facility] [facility] TOTAL 20 NOTE: Visits indicate total known visits. ED/UCC VISIT TRACKING (12 MO.) 11/26/2021 22:29 [facility] [place]: Emergency COMPLAINT: - ABD SWELLING, URINE PROBLEM 11/08/2021 00:36 [facility] [place] TYPE: Emergency COMPLAINT: - HIGH BP, DIZZY DIAGNOSES: - Allergy status to narcotic agent - Allergy status to penicillin - Hypertensive chronic kidney disease with stage 1 through stage 4 chronic kidney disease, or unspecified chronic kidney disease - Allergy status to other drugs, medicaments and biological substances - skilled nursing (current) use of oral hypoglycemic drugs - Type 2 diabetes mellitus with ketoacidosis without coma - Other 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 (current) 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 - Allergy status to sulfonamides - Chronic kidney disease, unspecified - Other chest pain - Type 2 diabetes mellitus with diabetic chronic kidney disease - Pure hypercholesterolemia, unspecified - Essential (primary) hypertension - Allergy status to other antibiotic agents - Dizziness and giddiness - Dyspnea, unspecified 11/02/2021 23:59 [facility] [place] TYPE: Emergency COMPLAINT: - CHEST PAIN DIAGNOSES: - Allergy status to narcotic agent - Allergy status to sulfonamides - Allergy status to penicillin - skilled nursing (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 - Other 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 (current) 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 - Essential (primary) hypertension [...] tract infection, site not specified - Other intermission coordinator (current) 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 - Hyperlipidemia, unspecified - terminal manager (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 - Left upper [...] status to sulfonamides - Adverse effect of jfaoqzmhuhu-nkvjcojjys-qsbtee inhibitors, initial encounter - Chronic kidney disease, unspecified - Other intermission coordinator (current) 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 - Type 2 diabetes mellitus with diabetic chronic kidney disease - terminal manager (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 - Allergy status to other antibiotic agents - Allergy status to penicillin 09/09/2021 20:54 [facility] [place] TYPE: Emergency COMPLAINT: - CHEST PAIN DIAGNOSES: - Allergy status to other antibiotic agents - Type 2 diabetes mellitus without complications - terminal manager (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 - Other chest pain - Hyperlipidemia, unspecified - Other 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 (current) 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 - Allergy status to [...] - Allergy status to sulfonamides - Other intermission coordinator (current) 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 - Unspecified abdominal pain 07/27/2021 20:55 [facility] Nita LEÓN TYPE: Emergency DIAGNOSES: - chest pain, left arm pain - Strain of unspecified muscle, fascia and tendon at shoulder and upper arm level, left arm, initial encounter - Chest Pain 07/21/2021 20:03 WARD Price TYPE: Emergency COMPLAINT: - CHEST PAIN DIAGNOSES: - Other intermission coordinator (current) 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 - Allergy status to other antibiotic agents - terminal manager (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 - Type 2 [...] status to penicillin - Pure hyperglyceridemia - terminal manager (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 [facility]2021 [facility] DIAGNOSES: - abd pain 05/17/2021 17:57 [facility]: Emergency DIAGNOSES: - Abd pain - Unspecified abdominal pain - Acute cystitis without hematuria - Abdominal Pain 05/16/2021 02:28 [facility] [place] TYPE: Emergency COMPLAINT: - ABDOMINAL PAIN DIAGNOSES: - Allergy status to penicillin - Pure hyperglyceridemia - terminal manager (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 - Type 2 [...] Urinary tract infection, site not specified - skilled nursing (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 - Dysuria - Hyperlipidemia, unspecified - Other intermission coordinator (current) 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 02/02/2021 10:48 WARD Lynch [...] diabetes mellitus with hyperglycemia - Other 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 (current) 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 01/29/2021 21:23 [facility] [place] TYPE: Emergency COMPLAINT: - ABDOMINAL PAIN 01/29/2021 12:46 [facility] Lynch [place] TYPE: Emergency COMPLAINT: - CATHETER PROBLEM DIAGNOSES: - Hyperlipidemia, unspecified - Encounter for fitting and adjustment of urinary device - Allergy status to penicillin - Type 2 diabetes mellitus with ketoacidosis without coma - Allergy status to other antibiotic agents - Other 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 (current) 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 - Allergy status to sulfonamides - skilled nursing (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 01/22/2021 14:23 [facility] [place] TYPE: Emergency COMPLAINT: - ABDOM PAIN DIAGNOSES: - Generalized abdominal pain - Allergy status to sulfonamides - Type 2 diabetes mellitus with ketoacidosis without coma - Allergy status to other antibiotic agents - terminal manager (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 - Hyperlipidemia, unspecified - Retention of urine, unspecified - Allergy status to penicillin - Other intermission coordinator (current) 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 01/20/2021 18:07 WARD Lynch [...] SUGAR, ABD/CHEST PAIN DIAGNOSES: - Other 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 (current) 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 - Dehydration - Right upper quadrant pain - Allergy status to sulfonamides - Dizziness and giddiness - Type 2 diabetes mellitus with hyperglycemia - Pure hyperglyceridemia - Acute kidney failure, unspecified - Allergy status to penicillin - terminal manager (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 - Allergy status to other antibiotic agents - Type 1 diabetes mellitus with ketoacidosis without coma INPATIENT VISIT TRACKING (12 MO.) No inpatient visits to display in this time frame [id number]
== END 2021-11-27 00:44 | disposition home or self-care (01) ==
LOC: ED 22:29
DX: E11.9 Type 2 diabetes mellitus without complications (principal); I10 Essential (primary) hypertension; E78.5 Hyperlipidemia, unspecified; Z88.2 Allergy status to sulfonamides; Z88.8 Allergy status to other drugs, medicaments and biological substances; Z88.1 Allergy status to other antibiotic agents; Z88.5 Allergy status to narcotic agent; Z79.4 Long term (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; Z79.899 Other long term (current) 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
CPT/HCPCS: 51798; 80053; 81001; 83735; 84703; 85025; 96374; 99283-25; J2405; J7040

== ENCOUNTER 2021-12-04 20:12 | Emergency (ER) | payer OTHER ==
[~2021-12-04] VITALS: Ht 149.9 cm; Wt 46.7 kg
--- OUTSIDE RECORDS SUMMARY | 2021-12-04 20:14 | XMS ---
PreManage Notification: MONTSE GUTIERREZ Security Fermentation Operator Events No recent Security Events currently on file CRITERIA MET - [facility] - 2 Visits in 30 Days - [facility] - Has Care Guidelines - 6 ED Visits in 6 Months CARE PROVIDERS SAUL THORPE Physician Service Liaison Representative 03/19/2019-[facility] PHONE: Unknown [facility] 01/22/2021-[facility] PHONE: [phone] Jef has no Care Guidelines for this patient. Care History Medical/Surgical 09/24/2021 [facility] Contacted Gerri URDDbinder coverstitchSbmnkdp-Thlayk-czlyfhpw of recent ED visits. They will follow up with the patient. 02/05/2021 [facility] - W CALLED AND SPOKE WITH ASSEMBLER MUSICAL EQUIPMENT WALDEMAR- DISCUSSED RECENT ED VISITS- PRIMARY CARE PHYSICIAN REVIEWED PATIENT RECENT ED VISITS AND DID CONTACT PATIENT-THEY HAVE INSTRUCTED PATIENT TO CONTACT DELIVERER OUTSIDE DR HAMMOND TO SCHEDULE AND EARLIER APT IF POSSIBLE. PATIENT HAS TO MAKE THE APT FOR FOLLOW UP THE CLINIC CAN\T\#39;T SCHEDULE THE APT FOR THE PATIENT. - PATIENT HAS AN APT 02/06/[address] CHRISTENSEN. 01/25/2021 [facility] VOIDING TRIAL SCHEDULED WITH DR CHRISTENSEN UROLOGIST 02/06/21 [place] VISIT COUNT (12 MO.) [address] [facility]ita [facility]donnell [facility] T[facility] NOTE: Visits indicate total known visits. ED/UCC VISIT TRACKING (12 MO.) 12/04/2021 20:12 [facility] [place] [facility] COMPLAINT: - EYE SWELLING 11/26/2021 22:29 [facility] [place] TYPE: Emergency COMPLAINT: - ABD SWELLING, URINE PROBLEM DIAGNOSES: - Type 2 diabetes mellitus without complications - Dysuria - Hyperlipidemia, unspecified - terminologist (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 - Essential (primary) hypertension - Allergy status to other drugs, medicaments and biological substances - Allergy status to narcotic agent - Allergy status to other antibiotic agents - Allergy status to sulfonamides - Other terminal gauger supervisor (current) 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 11/08/2021 00:36 [facility] [place] TYPE: Emergency COMPLAINT: - HIGH BP, DIZZY DIAGNOSES: - Allergy status to narcotic agent - Allergy status to penicillin - Hypertensive chronic kidney disease with stage 1 through stage 4 chronic kidney disease, or unspecified chronic kidney disease - Allergy status to other drugs, medicaments and biological substances - FDC (current) use of oral hypoglycemic drugs - Type 2 diabetes mellitus with ketoacidosis without coma - Other assisted (current) 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 - Allergy status to [...] sulfonamides - Allergy status to penicillin - terminologist (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 - Other assisted (current) 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 - Essential (primary) hypertension [...] tract infection, site not specified - Other assisted (current) 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 - Hyperlipidemia, unspecified - FDC (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 - Left upper [...] status to sulfonamides - Adverse effect of bzdhuazlfib-ccxxekjttr-npouxs inhibitors, initial encounter - Chronic kidney disease, unspecified - Other terminal gauger supervisor (current) 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 - Type 2 diabetes mellitus with diabetic chronic kidney disease - FDC (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 - Allergy status to other antibiotic agents - Allergy status to penicillin 09/09/2021 20:54 [facility] Price TYPE: Emergency COMPLAINT: - CHEST PAIN DIAGNOSES: - Allergy status to other antibiotic agents - Type 2 diabetes mellitus without complications - terminologist (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 - Other chest pain - Hyperlipidemia, unspecified - Other assisted (current) 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 - Allergy status to sulfonamides - Allergy status to penicillin - Allergy status to narcotic agent 07/31/2021 11:38 WAD[facility] Price TYPE: Emergency COMPLAINT: - ABDOMINAL PAIN DIAGNOSES: - Type 1 diabetes mellitus without complications - Pure hyperglyceridemia - Acute gastritis without bleeding - Allergy status to narcotic agent - Hyperlipidemia, unspecified - Personal history of leukemia - Allergy status to other antibiotic agents - Allergy status to sulfonamides - Other terminal gauger supervisor (current) 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 - Unspecified abdominal pain 07/27/2021 20:[address] [facility] [place] LE[place]N TYPE: Emergency DIAGNOSES: - chest pain, left arm pain - Strain of unspecified muscle, fascia and tendon at shoulder and upper arm level, left arm, initial encounter - Chest Pain 07/21/2021 20:03 [facility] [place] TYPE: Emergency COMPLAINT: - CHEST PAIN DIAGNOSES: - Other assisted (current) 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 - Allergy status to other antibiotic agents - terminologist (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 - Type 2 [...] - Left upper quadrant pain - Other terminal gauger supervisor (current) 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 - Type 2 diabetes mellitus with ketoacidosis without coma - Allergy status to sulfonamides - Hyperlipidemia, unspecified - Allergy status to narcotic agent - Urinary tract infection, site not specified - Allergy status to penicillin - Pure hyperglyceridemia - terminologist (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 07/13/2021 21:19 [facility]: Emergency DIAGNOSES: - abd pain 05/17/2021 17:57 [facility]: Emergency DIAGNOSES: - Abd pain - Unspecified abdominal pain - Acute cystitis without hematuria - Abdominal Pain 05/16/2021 02:28 WARD Price TYPE: Emergency COMPLAINT: - ABDOMINAL PAIN DIAGNOSES: - Allergy status to penicillin - Pure hyperglyceridemia - FDC (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 - Type 2 diabetes mellitus without complications - Lower abdominal pain, unspecified - Disorder of kidney and ureter, unspecified - Allergy status to other antibiotic agents - Other terminal gauger supervisor (current) 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 - Allergy status to sulfonamides - Retention of urine, unspecified 03/01/2021 17:02 WARD Price TYPE: Emergency COMPLAINT: - ABDOMINAL PAIN DIAGNOSES: - Allergy status to other antibiotic agents - Allergy status to penicillin - Allergy status to sulfonamides - Urinary tract infection, site not specified - terminologist (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 - Dysuria - Hyperlipidemia, unspecified - Other terminal gauger supervisor (current) 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 02/02/2021 10:48 [facility] [place] TYPE: Emergency COMPLAINT: - ABD PAIN DIAGNOSES: - Upper abdominal pain, unspecified - Allergy status to sulfonamides - Nausea with vomiting, unspecified - terminologist (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 - Type 1 diabetes mellitus with hyperglycemia - Hyperlipidemia, unspecified - Type 2 diabetes mellitus with ketoacidosis without coma - Type 1 diabetes mellitus with ketoacidosis without coma - Allergy status to other antibiotic agents - Type 2 diabetes mellitus with hyperglycemia - Other assisted (current) 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 01/29/2021 21:23 [facility] [place] TYPE: Emergency COMPLAINT: - ABDOMINAL PAIN 01/29/2021 12:46 [facility] [place] TYPE: Emergency COMPLAINT: - CATHETER PROBLEM DIAGNOSES: - Hyperlipidemia, unspecified - Encounter for fitting and adjustment of urinary device - Allergy status to penicillin - Type 2 diabetes mellitus with ketoacidosis without coma - Allergy status to other antibiotic agents - Other terminal gauger supervisor (current) 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 - Allergy status to sulfonamides - terminologist (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 01/22/2021 14:23 [facility] [place] TYPE: Emergency COMPLAINT: - ABDOM PAIN DIAGNOSES: - Generalized abdominal pain - Allergy status to sulfonamides - Type 2 diabetes mellitus with ketoacidosis without coma - Allergy status to other antibiotic agents - terminologist (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 - Hyperlipidemia, unspecified - Retention of urine, unspecified - Allergy status to penicillin - Other assisted (current) 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 01/20/2021 18:07 [facility] [place] TYPE: Emergency COMPLAINT: - STOMACH PAIN DIAGNOSES: - Allergy status to penicillin - Type 1 diabetes mellitus with hyperglycemia - Retention of urine, unspecified - FDC (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 - Type 1 diabetes mellitus with ketoacidosis without coma - Other terminal gauger supervisor (current) 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 - Generalized abdominal pain - Allergy status to sulfonamides - Allergy status to other antibiotic agents - Hyperlipidemia, unspecified Plus 1 More Visit INPATIENT VISIT TRACKING (12 MO.) No inpatient visits to display in this time frame [id number]
[2021-12-04] MEDS ORDERED: AMLODIPINE BES2.5 MG PO (22:19)
== END 2021-12-05 01:37 | disposition home or self-care (01) ==
LOC: ED 20:12
DX: H00.015 Hordeolum externum left lower eyelid (principal); H60.92 Unspecified otitis externa, left ear; E78.2 Mixed hyperlipidemia; I12.9 Hypertensive chronic kidney disease with stage 1 through stage 4 chronic kidney disease, or unspecified chronic kidney disease; E11.22 Type 2 diabetes mellitus with diabetic chronic kidney disease; N18.9 Chronic kidney disease, unspecified; Z88.2 Allergy status to sulfonamides; Z88.0 Allergy status to penicillin; Z88.8 Allergy status to other drugs, medicaments and biological substances; Z88.1 Allergy status to other antibiotic agents; Z79.4 Long term (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; Z79.899 Other long term (current) 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
CPT/HCPCS: 99283

== ENCOUNTER 2021-12-23 14:50 | Emergency (ER) | payer OTHER ==
[~2021-12-23] VITALS: Ht 149.9 cm; Wt 43.6 kg
[~2021-12-23 14:50] MED LIST changes: +AMLODIPINE BES2.5 MG PO
--- OUTSIDE RECORDS SUMMARY | 2021-12-23 14:52 | XMS ---
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 Care History Medical/Surgical 09/24/2021 [facility] Contacted Gerri RUDDsupervisor cartographyWrxlktb-Fdkbht-rgcghqag of recent ED visits. They will follow up with the patient. 02/05/2021 [facility] - W CALLED AND SPOKE WITH NUCLEAR CARDIOLOGY TECHNOLOGIST WALDEMAR- DISCUSSED RECENT ED VISITS- PRIMARY CARE PHYSICIAN REVIEWED PATIENT RECENT ED VISITS AND DID CONTACT PATIENT-THEY HAVE INSTRUCTED PATIENT TO CONTACT BED CONTROL SPECIALIST DR HAMMOND TO SCHEDULE AND EARLIER APT IF POSSIBLE. PATIENT HAS TO MAKE THE APT FOR FOLLOW UP THE CLINIC CAN\T\#39;T SCHEDULE THE APT FOR THE PATIENT. - PATIENT HAS AN APT 02/06/[address] CHRISTENSEN. 01/25/2021 [facility] VOIDING TRIAL SCHEDULED WITH DR CHRISTENSEN UROLOGIST 02/06/21 [place] VISIT COUNT (12 MO.) 3 [facility] T[facility] NOTE: Visits indicate total known visits. 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 - Hordeolum externum left lower eyelid - Chronic kidney disease, unspecified - Allergy status to penicillin - Allergy status to other antibiotic agents - Hypertensive chronic kidney disease with stage 1 through stage 4 chronic kidney disease, or unspecified chronic kidney disease - Type 2 diabetes mellitus with diabetic chronic kidney disease - Other specified disorders of eye and adnexa - Allergy status to other drugs, medicaments and biological substances - Other rn long term care (current) 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 11/26/2021 22:29 [facility] [place] TYPE: Emergency COMPLAINT: - ABD SWELLING, URINE PROBLEM DIAGNOSES: - Type 2 diabetes mellitus without complications - Dysuria - Hyperlipidemia, unspecified - senior living (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 - Essential (primary) hypertension - Allergy status to other drugs, medicaments and biological substances - Allergy status to narcotic agent - Allergy status to other antibiotic agents - Allergy status to sulfonamides - Other rn long term care (current) 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 11/08/2021 00:36 [facility] [place] TYPE: Emergency COMPLAINT: - HIGH BP, DIZZY DIAGNOSES: - Allergy status to narcotic agent - Allergy status to penicillin - Hypertensive chronic kidney disease with stage 1 through stage 4 chronic kidney disease, or unspecified chronic kidney disease - Allergy status to other drugs, medicaments and biological substances - keno terminal operator (current) use of oral hypoglycemic drugs - Type 2 diabetes mellitus with ketoacidosis without coma - Other custodial (current) 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 - Allergy status to [...] sulfonamides - Allergy status to penicillin - senior living (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 - Other custodial (current) 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 - Essential (primary) hypertension [...] tract infection, site not specified - Other rn long term care (current) 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 - Hyperlipidemia, unspecified - keno terminal operator (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 - Left upper [...] status to sulfonamides - Adverse effect of jmlupkmydox-onkjjeraks-ymxeas inhibitors, initial encounter - Chronic kidney disease, unspecified - Other custodial (current) 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 - Type 2 diabetes mellitus with diabetic chronic kidney disease - senior living (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 - Allergy status to other antibiotic agents - Allergy status to penicillin 09/09/2021 20:54 [facility] [place] TYPE: Emergency COMPLAINT: - CHEST PAIN DIAGNOSES: - Allergy status to other antibiotic agents - Type 2 diabetes mellitus without complications - senior living (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 - Other chest pain - Hyperlipidemia, unspecified - Other rn long term care (current) 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 - Allergy status to [...] - Allergy status to sulfonamides - Other custodial (current) 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 - Unspecified abdominal pain 07/27/2021 20:55 [facility] [place]N TYPE: Emergency DIAGNOSES: - chest pain, left arm pain - Strain of unspecified muscle, fascia and tendon at shoulder and upper arm level, left arm, initial encounter - Chest Pain 07/21/2021 20:03 [facility] Price TYPE: Emergency COMPLAINT: - CHEST PAIN DIAGNOSES: - Other rn long term care (current) 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 - Allergy status to other antibiotic agents - keno terminal operator (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 - Type 2 [...] - Left upper quadrant pain - Other custodial (current) 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 - Type 2 diabetes mellitus with ketoacidosis without coma - Allergy status to sulfonamides - Hyperlipidemia, unspecified - Allergy status to narcotic agent - Urinary tract infection, site not specified - Allergy status to penicillin - Pure hyperglyceridemia - keno terminal operator (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 07/13/2021 21:19 [facility] DIAGNOSES: - abd pain 05/17/2021 17:57 [facility]: [facility] DIAGNOSES: - Abd pain - Unspecified abdominal pain - Acute cystitis without hematuria - Abdominal Pain 05/16/2021 02:28 W[facility] Price TYPE: Emergency COMPLAINT: - ABDOMINAL PAIN DIAGNOSES: - Allergy status to penicillin - Pure hyperglyceridemia - keno terminal operator (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 - Type 2 diabetes mellitus without complications - Lower abdominal pain, unspecified - Disorder of kidney and ureter, unspecified - Allergy status to other antibiotic agents - Other custodial (current) 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 - Allergy status to sulfonamides - Retention of urine, unspecified 03/01/2021 17:02 [facility] [place] TYPE: Emergency COMPLAINT: - ABDOMINAL PAIN DIAGNOSES: - Allergy status to other antibiotic agents - Allergy status to penicillin - Allergy status to sulfonamides - Urinary tract infection, site not specified - keno terminal operator (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 - Dysuria - Hyperlipidemia, unspecified - Other custodial (current) 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 02/02/2021 10:48 [facility] [place] TYPE: Emergency COMPLAINT: - ABD PAIN DIAGNOSES: - Upper abdominal pain, unspecified - Allergy status to sulfonamides - Nausea with vomiting, unspecified - keno terminal operator (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 - Type 1 diabetes mellitus with hyperglycemia - Hyperlipidemia, unspecified - Type 2 diabetes mellitus with ketoacidosis without coma - Type 1 diabetes mellitus with ketoacidosis without coma - Allergy status to other antibiotic agents - Type 2 diabetes mellitus with hyperglycemia - Other custodial (current) 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 01/29/2021 21:23 [place] [place] TYPE: Emergency COMPLAINT: - ABDOMINAL PAIN 01/29/2021 12:46 [facility] [place] TYPE: Emergency COMPLAINT: - CATHETER PROBLEM DIAGNOSES: - Hyperlipidemia, unspecified - Encounter for fitting and adjustment of urinary device - Allergy status to penicillin - Type 2 diabetes mellitus with ketoacidosis without coma - Allergy status to other antibiotic agents - Other custodial (current) 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 - Allergy status to sulfonamides - keno terminal operator (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 01/22/2021 14:23 [facility] [place] TYPE: Emergency COMPLAINT: - ABDOM PAIN DIAGNOSES: - Generalized abdominal pain - Allergy status to sulfonamides - Type 2 diabetes mellitus with ketoacidosis without coma - Allergy status to other antibiotic agents - keno terminal operator (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 - Hyperlipidemia, unspecified - Retention of urine, unspecified - Allergy status to penicillin - Other custodial (current) 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 Plus 2 More Visits INPATIENT VISIT TRACKING (12 MO.) No inpatient visits to display in this time frame [email or web address]
[2021-12-23] MEDS ORDERED: PROTONIX40 MG PO (20:51)
[2021-12-23] MEDS ORDERED: ONDANSETRON ODT8 MG PO (20:51)
== END 2021-12-23 21:16 | disposition home or self-care (01) ==
LOC: ED 14:50
DX: R10.9 Unspecified abdominal pain (principal); E11.9 Type 2 diabetes mellitus without complications; E78.5 Hyperlipidemia, unspecified; I10 Essential (primary) hypertension; Z88.2 Allergy status to sulfonamides; Z88.8 Allergy status to other drugs, medicaments and biological substances; Z88.1 Allergy status to other antibiotic agents; Z88.5 Allergy status to narcotic agent; Z79.4 Long term (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; Z79.899 Other long term (current) 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
CPT/HCPCS: 74176; 80053; 81001; 82010; 82803; 83690; 84703; 85025; 96374; 96375; 99284-25; A9270; C9803; J1885; J2405; J7030; U0003

== ENCOUNTER 2022-02-07 23:34 | Emergency (ER) | payer OTHER ==
[~2022-02-07] VITALS: Ht 149.9 cm; Wt 46.0 kg
[~2022-02-07 23:34] MED LIST changes: +ONDANSETRON ODT8 MG PO; +PROTONIX40 MG PO
--- OUTSIDE RECORDS SUMMARY | 2022-02-07 23:36 | XMS ---
PreManage Notification: MONTSE GUTIERREZ Security [employer] Events No recent Security Events currently on file CRITERIA MET - 6 ED Visits in 6 Months - [facility] - Has Care Guidelines - [facility] - 2 Visits in 30 Days CARE PROVIDERS SAUL THORPE Physician Marketing Senior Recruiter 03/19/2019-[facility] PHONE: Unknown [facility] 01/22/2021- PHONE: [phone] Jef has no Care Guidelines for this patient. Care History Medical/Surgical 09/24/2021 [facility] Contacted Gerri RUDDbleacher operatorJujtpox-Cdhqgc-npkqlgbl of recent ED visits. They will follow up with the patient. 02/05/2021 [facility] - W CALLED AND SPOKE WITH LMFT WALDEMAR- DISCUSSED RECENT ED VISITS- PRIMARY CARE PHYSICIAN REVIEWED PATIENT RECENT ED VISITS AND DID CONTACT PATIENT-THEY HAVE INSTRUCTED PATIENT TO CONTACT SUPPORT SERVICE TECH DR HAMMOND TO SCHEDULE AND EARLIER APT IF POSSIBLE. PATIENT HAS TO MAKE THE APT FOR FOLLOW UP THE CLINIC CAN\T\#39;T SCHEDULE THE APT FOR THE PATIENT. - PATIENT HAS AN APT 02/06/[address] CHRISTENSEN. 01/25/2021 [facility] VOIDING TRIAL SCHEDULED WITH DR CHRISTENSEN UROLOGIST 02/06/21 [place] VISIT COUNT (12 MO.) [address] [facility] T[facility] NOTE: Visits indicate total known visits. ED/UCC VISIT TRACKING (12 MO.) 02/07[facility]2022 23[facility] [place] [facility] COMPLAINT: - LEFT KNEE INJ 01/26/2022 15:43 [facility] [place] [facility] DIAGNOSES: - Upper abdominal pain, unspecified - Acute pancreatitis without necrosis or infection, unspecified - Tachycardia, unspecified - Abdominal Pain - Emesis 01/08/2022 15:43 [facility] Joshua [place] TYPE: Emergency DIAGNOSES: - Acute pancreatitis without necrosis or infection, unspecified - Abdominal Pain 12/23/2021 14:51 [facility] [place] TYPE: Emergency COMPLAINT: - ABD PAIN DIAGNOSES: - Allergy status to other antibiotic agents - Contact with and (suspected) exposure to COVID-19 - Hyperlipidemia, unspecified - Allergy status to narcotic agent - Type 2 diabetes mellitus without complications - FDC (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 - Unspecified abdominal pain - Allergy status to sulfonamides - 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 - Allergy status to other drugs, medicaments and biological substances - Essential (primary) hypertension 12/04/2021 20:12 [facility] [place] TYPE: Emergency COMPLAINT: - EYE SWELLING DIAGNOSES: - Mixed hyperlipidemia - Allergy status to sulfonamides - Unspecified otitis externa, left ear - FDC (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 - Hordeolum externum [...] drugs, medicaments and biological substances - Other detention (current) 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 11/26/2021 22:29 [facility] [place] TYPE: Emergency COMPLAINT: - ABD SWELLING, URINE PROBLEM DIAGNOSES: - Type 2 diabetes mellitus without complications - Dysuria - Hyperlipidemia, unspecified - FDC (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 - Essential (primary) hypertension - Allergy status to other drugs, medicaments and biological substances - Allergy status to narcotic agent - Allergy status to other antibiotic agents - Allergy status to sulfonamides - Other detention (current) 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 11/08/2021 00:36 [facility] [...] mellitus with ketoacidosis without coma - Other buttermilk drier operator (current) drug [...] sulfonamides - Allergy status to penicillin - FDC (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 - Other detention (current) 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 - Essential (primary) hypertension [...] tract infection, site not specified - 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 - Hyperlipidemia, unspecified - [...] status to sulfonamides - Adverse effect of nmdqvgsojpg-ttaqtgiqug-iqiltz inhibitors, initial encounter - Chronic kidney disease, unspecified - 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 - Type 2 diabetes mellitus with diabetic chronic kidney disease - assistant terminal manager (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 - Allergy status to other antibiotic agents - Allergy status to penicillin 09/09/2021 20:54 [facility] [place] TYPE: Emergency COMPLAINT: - CHEST PAIN DIAGNOSES: - Allergy status to other antibiotic agents - Type 2 diabetes mellitus without complications - FDC (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 - Other chest pain - Hyperlipidemia, unspecified - Other buttermilk drier operator (current) [...] - Allergy status to sulfonamides - Other detention (current) 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 - Unspecified abdominal pain 07/27[facility]2021 [facility] DIAGNOSES: - chest pain, left arm pain - Strain of unspecified muscle, fascia and tendon at shoulder and upper arm level, left arm, initial encounter - Chest Pain 07/21/2021 20:03 [facility] [place] TYPE: Emergency COMPLAINT: - CHEST PAIN DIAGNOSES: - 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 - Allergy status to other antibiotic agents - assistant terminal manager (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 - [...] - Left upper quadrant pain - Other detention (current) 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 - Type 2 diabetes mellitus with ketoacidosis without coma - Allergy status to sulfonamides - Hyperlipidemia, unspecified - Allergy status to narcotic agent - Urinary tract infection, site not specified - Allergy status to penicillin - Pure hyperglyceridemia - FDC (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 07/13/2021 21:19 [facility] DIAGNOSES: - abd pain 05/17/2021 17:57 [facility] DIAGNOSES: - Abd pain [...] status to other antibiotic agents - 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 - Allergy status to sulfonamides - Retention of urine, unspecified 03/01/2021 17:02 [facility] TYPE: Emergency COMPLAINT: - ABDOMINAL PAIN DIAGNOSES: - Allergy status to other antibiotic agents - Allergy status to penicillin - Allergy status to sulfonamides - Urinary tract infection, site not specified - assistant terminal manager (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 - Dysuria - Hyperlipidemia, unspecified - 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 INPATIENT VISIT TRACKING (12 MO.) 01/26/2022 15:43 [facility] DIAGNOSES: - Acute pancreatitis without necrosis or infection, unspecified - FDC (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 - Chronic kidney disease, stage 3b - Tachycardia, unspecified - 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 - Type 1 diabetes mellitus with hyperglycemia - Upper abdominal pain, unspecified - Chronic kidney disease, stage 3a 01/08/2022 15:43 [facility] [place] TYPE: Medical Surgical DIAGNOSES: - FDC (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 - Idiopathic acute pancreatitis without necrosis or infection - Chronic kidney disease, stage 3b - Personal history of leukemia - 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
== END 2022-02-08 00:20 | disposition home or self-care (01) ==
LOC: ED 23:34
DX: S80.02XA Contusion of left knee, initial encounter (principal); E11.9 Type 2 diabetes mellitus without complications; E78.5 Hyperlipidemia, unspecified; I12.9 Hypertensive chronic kidney disease with stage 1 through stage 4 chronic kidney disease, or unspecified chronic kidney disease; E11.22 Type 2 diabetes mellitus with diabetic chronic kidney disease; N18.9 Chronic kidney disease, unspecified; Z88.2 Allergy status to sulfonamides; Z88.8 Allergy status to other drugs, medicaments and biological substances; Z88.1 Allergy status to other antibiotic agents; Z88.0 Allergy status to penicillin; Z88.5 Allergy status to narcotic agent; Z79.899 Other long term (current) 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; Z79.4 Long term (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; W01.0XXA Fall on same level from slipping, tripping and stumbling without subsequent striking against object, initial encounter
CPT/HCPCS: 73560; 99283-25

== ENCOUNTER 2022-02-13 20:20 | Emergency (ER) | payer OTHER ==
[~2022-02-13] VITALS: Ht 149.9 cm; Wt 45.8 kg
--- OUTSIDE RECORDS SUMMARY | 2022-02-13 20:24 | XMS ---
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 PHONE: [phone] Jef has no Care Guidelines for this patient. Care History Medical/Surgical 09/24/2021 [facility] Contacted Gerri RUDDengraver letterQxblqjq-Cralio-viisbmxo of recent ED visits. They will follow up with the patient. 02/05/2021 [facility] - W CALLED AND SPOKE WITH GLUTEN SETTLING TENDER WALDEMAR- DISCUSSED RECENT ED VISITS- PRIMARY CARE PHYSICIAN REVIEWED PATIENT RECENT ED VISITS AND DID CONTACT PATIENT-THEY HAVE INSTRUCTED PATIENT TO CONTACT CARDIOLOGY PHYSICIAN DR HAMOMND TO SCHEDULE AND EARLIER APT IF POSSIBLE. PATIENT HAS TO MAKE THE APT FOR FOLLOW UP THE CLINIC CAN\T\#39;T SCHEDULE THE APT FOR THE PATIENT. - PATIENT HAS AN APT 02/06/[address] CHRISTENSEN. 01/25/2021 [facility] VOIDING TRIAL SCHEDULED WITH DR CHRISTENSEN UROLOGIST 02/06/21 [place] VISIT COUNT (12 MO.) [address] Nita Odonnell 15 [facility] TOTAL 20 NOTE: Visits indicate total known visits. ED/UCC VISIT TRACKING (12 MO.) 02/13/2022 20:21 [facility] [place] Emergency COMPLAINT: - ABD PAIN 02/07/2022 23:34 [facility] [place] TYPE: Emergency COMPLAINT: - LEFT KNEE INJ DIAGNOSES: - Allergy status to narcotic agent - Fall on same level from slipping, tripping and stumbling without subsequent striking against object, initial encounter - Hypertensive chronic kidney disease with stage 1 through stage 4 chronic kidney disease, or unspecified chronic kidney disease - alf (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 - Allergy status to other antibiotic agents - Pain in left knee - Other terminal make up operator (current) 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 - Allergy status to penicillin - Allergy status to sulfonamides - Allergy status to other drugs, medicaments and biological substances - Contusion of left knee, initial encounter - Chronic kidney disease, unspecified - Hyperlipidemia, unspecified - Type 2 diabetes mellitus with diabetic chronic kidney disease - Type 2 diabetes mellitus without complications 01/26/2022 15:43 [facility] DIAGNOSES: - Upper abdominal pain, unspecified - Acute pancreatitis without necrosis or infection, unspecified - Tachycardia, unspecified - Abdominal Pain - Emesis 01/08/2022 15:43 [facility] DIAGNOSES: - Acute pancreatitis without necrosis or infection, unspecified - Abdominal Pain 12/23/2021 14:51 [facility] [place] TYPE: Emergency COMPLAINT: - ABD PAIN DIAGNOSES: - Allergy status to other antibiotic agents - Contact with and (suspected) exposure to COVID-19 - Hyperlipidemia, unspecified - Allergy status to narcotic agent - Type 2 diabetes mellitus without complications - 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 - Unspecified abdominal pain - Allergy status to sulfonamides - Other shelter (current) 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 - Allergy status to other drugs, medicaments and biological substances - Essential (primary) hypertension 12/04/2021 20:12 [facility] [place] TYPE: Emergency COMPLAINT: - EYE SWELLING DIAGNOSES: - Mixed hyperlipidemia - Allergy status to sulfonamides - Unspecified otitis externa, left ear - alf (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 - Hordeolum externum [...] drugs, medicaments and biological substances - Other terminal make up operator (current) 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 11/26/2021 22:29 [facility] [place] TYPE: Emergency COMPLAINT: - ABD SWELLING, URINE PROBLEM DIAGNOSES: - Type 2 diabetes mellitus without complications - Dysuria - Hyperlipidemia, unspecified - alf (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 - Essential (primary) hypertension - Allergy status to other drugs, medicaments and biological substances - Allergy status to narcotic agent - Allergy status to other antibiotic agents - Allergy status to sulfonamides - Other shelter (current) 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 11/08/2021 00:36 [facility] [place] TYPE: Emergency COMPLAINT: - HIGH BP, DIZZY DIAGNOSES: - Allergy status to narcotic agent - Allergy status to penicillin - Hypertensive chronic kidney disease with stage 1 through stage 4 chronic kidney disease, or unspecified chronic kidney disease - Allergy status to other drugs, medicaments and biological substances - alf (current) use of oral hypoglycemic drugs - Type 2 diabetes mellitus with ketoacidosis without coma - Other shelter (current) 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 - [...] sulfonamides - Allergy status to penicillin - alf (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 - Other terminal make up operator (current) 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 - Essential (primary) hypertension [...] tract infection, site not specified - Other shelter (current) 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 - Hyperlipidemia, unspecified - alf (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 - Left upper [...] status to sulfonamides - Adverse effect of jajrtlxnkts-ygukgekmiu-ceysan inhibitors, initial encounter - Chronic kidney disease, unspecified - Other terminal make up operator (current) 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 - Type 2 diabetes mellitus with diabetic chronic kidney disease - 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 [facility] [place] TYPE: Emergency COMPLAINT: - ABDOMINAL PAIN DIAGNOSES: - Type 1 diabetes mellitus without complications - Pure hyperglyceridemia - Acute gastritis without bleeding - Allergy status to narcotic agent - Hyperlipidemia, unspecified - Personal history of leukemia - Allergy status to other antibiotic agents - Allergy status to sulfonamides - Other terminal make up operator (current) 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 - Unspecified abdominal pain 07/27/2021 20:55 [facility] Nita [place] TYPE: Emergency DIAGNOSES: - chest pain, left arm pain - Strain of unspecified muscle, fascia and tendon at shoulder and upper arm level, left arm, initial encounter - Chest Pain 07/21/2021 20:03 [facility] [place] TYPE: Emergency COMPLAINT: - CHEST PAIN DIAGNOSES: - Other terminal make up operator (current) 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 - Allergy status to other antibiotic agents - 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 - Type 2 [...] - Left upper quadrant pain - Other shelter (current) 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 - Type 2 diabetes mellitus with ketoacidosis without coma - Allergy status to sulfonamides - Hyperlipidemia, unspecified - Allergy status to narcotic agent - Urinary tract infection, site not specified - Allergy status to penicillin - Pure hyperglyceridemia - alf (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 07/13/2021 21:19 [facility] Nita [place] TYPE: Emergency DIAGNOSES: - abd pain 05/17/2021 17:57 [facility] [place]: Emergency DIAGNOSES: - Abd pain - Unspecified abdominal pain - Acute cystitis without hematuria - Abdominal Pain 05/16/2021 02:28 [facility] TYPE: Emergency COMPLAINT: - ABDOMINAL PAIN DIAGNOSES: - Allergy status to penicillin - Pure hyperglyceridemia - 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 - Type 2 diabetes mellitus without complications - Lower abdominal pain, unspecified - Disorder of kidney and ureter, unspecified - Allergy status to other antibiotic agents - Other terminal make up operator (current) 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 - Allergy status to sulfonamides - Retention of urine, unspecified 03/01/2021 17:02 [facility] TYPE: Emergency COMPLAINT: - ABDOMINAL PAIN DIAGNOSES: - Allergy status to other antibiotic agents - Allergy status to penicillin - Allergy status to sulfonamides - Urinary tract infection, site not specified - alf (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 - Dysuria - Hyperlipidemia, unspecified - Other shelter (current) 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 INPATIENT VISIT TRACKING (12 MO.) 01/26/2022 15:43 [facility] [place] TYPE: Surgical Services DIAGNOSES: - Acute pancreatitis without necrosis or infection, unspecified - alf (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 - Chronic kidney disease, stage 3b - Tachycardia, unspecified - 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 - Type 1 diabetes mellitus with hyperglycemia - Upper abdominal pain, unspecified - Chronic kidney disease, stage 3a 01/08/2022 15:43 [facility] DIAGNOSES: - 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
[2022-02-13] MEDS ORDERED: ONDANSETRON ODT8 MG PO (23:38)
[2022-02-14] MEDS ORDERED: CEPHALEXIN500 MG PO (00:10)
== END 2022-02-13 23:45 | disposition home or self-care (01) ==
LOC: ED 20:20
DX: K85.90 Acute pancreatitis without necrosis or infection, unspecified (principal); N39.0 Urinary tract infection, site not specified; E78.5 Hyperlipidemia, unspecified; I12.9 Hypertensive chronic kidney disease with stage 1 through stage 4 chronic kidney disease, or unspecified chronic kidney disease; E10.22 Type 1 diabetes mellitus with diabetic chronic kidney disease; N18.9 Chronic kidney disease, unspecified; Z88.1 Allergy status to other antibiotic agents; Z88.5 Allergy status to narcotic agent; Z88.2 Allergy status to sulfonamides; Z88.8 Allergy status to other drugs, medicaments and biological substances; Z79.4 Long term (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; Z79.899 Other long term (current) 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
CPT/HCPCS: 36415; 74176; 80053; 81001; 83690; 84703; 85025; 96374; 96375; 99284-25; A9270; J1170; J2405; J7030

== ENCOUNTER 2022-03-04 15:27 | Emergency (ER) | payer OTHER ==
[~2022-03-04] VITALS: Ht 149.9 cm; Wt 44.1 kg
--- OUTSIDE RECORDS SUMMARY | 2022-03-04 15:30 | XMS ---
PreManage Notification: MONTSE GUTIERREZ Security Waste Specialist Events No recent Security Events currently on file CRITERIA MET - [facility] - Has Care Guidelines - [facility] - 2 Visits in 30 Days - 6 ED Visits in 6 Months CARE PROVIDERS SAUL THORPE Physician Home Health Travel Ot 03/19/2019-[facility] PHONE: Unknown [facility] 01/22/2021-[facility] PHONE: [phone] Jef has no Care Guidelines for this patient. Care History Medical/Surgical 09/24/2021 [facility] Contacted Gerri RUDDdirect care [id number] of recent ED visits. They will follow up with the patient. 02/05/2021 [facility] - W CALLED AND SPOKE WITH PRESS SHOP SUPERVISOR WALDEMAR- DISCUSSED RECENT ED VISITS- PRIMARY CARE PHYSICIAN REVIEWED PATIENT RECENT ED VISITS AND DID CONTACT PATIENT-THEY HAVE INSTRUCTED PATIENT TO CONTACT STORES ASSISTANT DR HAMMOND TO SCHEDULE AND EARLIER APT IF POSSIBLE. PATIENT HAS TO MAKE THE APT FOR FOLLOW UP THE CLINIC CAN\T\#39;T SCHEDULE THE APT FOR THE PATIENT. - PATIENT HAS AN APT 02/06/[address] CHRISTENSEN. 01/25/2021 [facility] VOIDING TRIAL SCHEDULED WITH DR CHRISTENSEN UROLOGIST 02/06/21 [place] VISIT COUNT (12 MO.) 5 [place] [facility] NOTE: Visits indicate total known visits. ED/UCC VISIT TRACKING (12 MO.) [facility]22 [facility] [place] [facility] COMPLAINT: - ABDOMINAL PAIN 02/17/2022 03:45 [facility] [place] TYPE: Emergency COMPLAINT: - LOW BLOOD SUGARS DIAGNOSES: - Allergy status to narcotic agent - Adverse effect of insulin and oral hypoglycemic [antidiabetic] drugs, initial encounter - Allergy status to penicillin - Allergy status to other antibiotic agents - Hypoglycemia, unspecified - Allergy status to sulfonamides - Chronic kidney disease, unspecified - watermelon inspector (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 - Type 2 diabetes mellitus with hypoglycemia without coma - Hypertensive chronic kidney disease with stage 1 through stage 4 chronic kidney disease, or unspecified chronic kidney disease - Type 2 diabetes mellitus with diabetic chronic kidney disease - Allergy status to other drugs, medicaments and biological substances 02/13/2022 20:21 [facility] [place] TYPE: Emergency COMPLAINT: - ABD PAIN DIAGNOSES: - Chronic kidney disease, unspecified - Type 1 diabetes mellitus with diabetic chronic kidney disease - watermelon inspector (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 - Unspecified abdominal pain - Hyperlipidemia, unspecified - Acute pancreatitis without necrosis or infection, unspecified - Urinary tract infection, site not specified - Allergy status to sulfonamides - Allergy status to other drugs, medicaments and biological substances - Other vermin exterminator (current) 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 - Hypertensive chronic kidney disease with stage 1 through stage 4 chronic kidney disease, or unspecified chronic kidney disease - Allergy status to other antibiotic agents - Allergy status to narcotic agent 02/07/2022 23:34 [facility] [place] TYPE: Emergency COMPLAINT: - LEFT KNEE INJ DIAGNOSES: - Allergy status to narcotic agent - Fall on same level from slipping, tripping and stumbling without subsequent striking against object, initial encounter - Hypertensive chronic kidney disease with stage 1 through stage 4 chronic kidney disease, or unspecified chronic kidney disease - watermelon inspector (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 - Allergy status to other antibiotic agents - Pain in left knee - Other care home (current) 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 - Allergy status to penicillin - Allergy status to sulfonamides - Allergy status to other drugs, medicaments and biological substances - Contusion of left knee, initial encounter - Chronic kidney disease, unspecified - Hyperlipidemia, unspecified - Type 2 diabetes mellitus with diabetic chronic kidney disease - Type 2 diabetes mellitus without complications 01/26/2022 15:43 [facility] [place] TYPE: Emergency DIAGNOSES: - Upper abdominal pain, unspecified - Acute pancreatitis without necrosis or infection, unspecified - Tachycardia, unspecified - Abdominal Pain - Emesis 01/08/2022 15:[facility] [place] [facility]: [facility] DIAGNOSES: - Acute pancreatitis without necrosis or infection, unspecified - Abdominal Pain 12/23/2021 14:51 [facility] [place] TYPE: Emergency COMPLAINT: - ABD PAIN DIAGNOSES: - Allergy status to other antibiotic agents - Contact with and (suspected) exposure to COVID-19 - Hyperlipidemia, unspecified - Allergy status to narcotic agent - Type 2 diabetes mellitus without complications - watermelon inspector (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 - Unspecified abdominal pain - Allergy status to sulfonamides - Other care home (current) 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 - Allergy status to other drugs, medicaments and biological substances - Essential (primary) hypertension 12/04/2021 20:12 [facility] [place] TYPE: Emergency COMPLAINT: - EYE SWELLING DIAGNOSES: - Mixed hyperlipidemia - Allergy status to sulfonamides - Unspecified otitis externa, left ear - detention (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 - Hordeolum externum [...] drugs, medicaments and biological substances - Other care home (current) 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 11/26/2021 22:29 [facility] [place] TYPE: Emergency COMPLAINT: - ABD SWELLING, URINE PROBLEM DIAGNOSES: - Type 2 diabetes mellitus without complications - Dysuria - Hyperlipidemia, unspecified - watermelon inspector (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 - Essential (primary) hypertension - Allergy status to other drugs, medicaments and biological substances - Allergy status to narcotic agent - Allergy status to other antibiotic agents - Allergy status to sulfonamides - Other vermin exterminator (current) 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 11/08/2021 00:36 [facility] [place] TYPE: Emergency COMPLAINT: - HIGH BP, DIZZY DIAGNOSES: - Allergy status to narcotic agent - Allergy status to penicillin - Hypertensive chronic kidney disease with stage 1 through stage 4 chronic kidney disease, or unspecified chronic kidney disease - Allergy status to other drugs, medicaments and biological substances - detention (current) use of oral hypoglycemic drugs - Type 2 diabetes mellitus with ketoacidosis without coma - Other care home (current) 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 [...] sulfonamides - Allergy status to penicillin - watermelon inspector (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 - Other care home (current) 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 - Essential (primary) hypertension [...] tract infection, site not specified - Other vermin exterminator (current) 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 - Hyperlipidemia, unspecified - detention (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 - Left upper [...] status to sulfonamides - Adverse effect of gkjizmtsdpc-xswqbpkxns-bkfgvv inhibitors, initial encounter - Chronic kidney disease, unspecified - Other vermin exterminator (current) 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 - Type 2 diabetes mellitus with diabetic chronic kidney disease - detention (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 - Allergy status to other antibiotic agents - Allergy status to penicillin 09/09/2021 20:54 [facility] TYPE: Emergency COMPLAINT: - CHEST PAIN DIAGNOSES: - Allergy status to other antibiotic agents - Type 2 diabetes mellitus without complications - detention (current) use of insulin - Other chest [...] - Allergy status to sulfonamides - Other vermin exterminator (current) 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 - Unspecified abdominal pain 07/27/2021 20:55 [facility] [place] TYPE: Emergency DIAGNOSES: - chest pain, left arm pain - Strain of unspecified muscle, fascia and tendon at shoulder and upper arm level, left arm, initial encounter - Chest Pain 07/21/2021 20:03 [facility] TYPE: Emergency COMPLAINT: - CHEST PAIN DIAGNOSES: - Other vermin exterminator (current) 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 - Allergy status to other antibiotic agents - detention (current) use of insulin - Type 2 [...] - Left upper quadrant pain - Other care home (current) 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 - Type 2 diabetes mellitus with ketoacidosis without coma - Allergy status to sulfonamides - Hyperlipidemia, unspecified - Allergy status to narcotic agent - Urinary tract infection, site not specified - Allergy status to penicillin - Pure hyperglyceridemia - detention (current) use of insulin 07/13/2021 21:19 [facility] [place] TYPE: Emergency DIAGNOSES: - abd pain 05/17/2021 17:57 [facility] [facility] DIAGNOSES: - Abd pain - Unspecified abdominal pain - Acute cystitis without hematuria - Abdominal Pain Plus 1 More Visit INPATIENT VISIT TRACKING (12 MO.) 01/26/2022 15:43 [facility] [place] [facility] DIAGNOSES: - Acute pancreatitis without necrosis or infection, unspecified - watermelon inspector (current) use of insulin - Chronic kidney disease, stage 3b - Tachycardia, unspecified - 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
[2022-03-04] MEDS ORDERED: ONDANSETRON ODT4 MG PO (21:06)
[2022-03-04] MEDS ORDERED: CEFPODOXIME PR200 MG PO (21:06)
== END 2022-03-04 21:27 | disposition home or self-care (01) ==
LOC: ED 15:27
DX: N39.0 Urinary tract infection, site not specified (principal); R10.10 Upper abdominal pain, unspecified; R11.2 Nausea with vomiting, unspecified; E78.5 Hyperlipidemia, unspecified; I10 Essential (primary) hypertension; E10.22 Type 1 diabetes mellitus with diabetic chronic kidney disease; Z20.822 Contact with and (suspected) exposure to COVID-19; Z79.4 Long term (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; Z79.899 Other long term (current) 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; Z88.5 Allergy status to narcotic agent; Z88.0 Allergy status to penicillin; Z88.2 Allergy status to sulfonamides; Z88.8 Allergy status to other drugs, medicaments and biological substances
CPT/HCPCS: 76705; 80053; 81001; 82010; 82140; 82803; 83690; 84703; 85025; 87502; C9803; J0696; J1170; J2405; J2550; J7030; U0003

== ENCOUNTER 2022-03-07 00:39 | Emergency (ER) | payer OTHER ==
[~2022-03-07] VITALS: Ht 149.9 cm; Wt 43.0 kg
[~2022-03-07 00:39] MED LIST changes: +CEFPODOXIME PR200 MG PO
--- OUTSIDE RECORDS SUMMARY | 2022-03-07 00:40 | XMS ---
PreManage Notification: MONTSE GUTIERREZ Security Floor Director Events No recent Security Events currently on file CRITERIA MET - [facility] - Has Care Guidelines - [facility] - 2 Visits in 30 Days - 6 ED Visits in 6 Months CARE PROVIDERS SAUL THORPE Physician Dietary Service Aide 03/19/2019-[facility] PHONE: Unknown [facility] 01/22/2021-[facility] PHONE: [phone] Jef has no Care Guidelines for this patient. Care History Medical/Surgical 09/24/2021 [facility] Contacted Gerri RUDDpharmaceutical development [id number] of recent ED visits. They will follow up with the patient. 02/05/2021 [facility] - W CALLED AND SPOKE WITH ROLL ON MAN WALDEMAR- DISCUSSED RECENT ED VISITS- PRIMARY CARE PHYSICIAN REVIEWED PATIENT RECENT ED VISITS AND DID CONTACT PATIENT-THEY HAVE INSTRUCTED PATIENT TO CONTACT GEOSCIENCE SPECIALIST DR HAMMOND TO SCHEDULE AND EARLIER APT IF POSSIBLE. PATIENT HAS TO MAKE THE APT FOR FOLLOW UP THE CLINIC CAN\T\#39;T SCHEDULE THE APT FOR THE PATIENT. - PATIENT HAS AN APT 02/06/[address] CHRISTENSEN. 01/25/2021 [facility] VOIDING TRIAL SCHEDULED WITH DR CHRISTENSEN UROLOGIST 02/06/21 [place] VISIT COUNT (12 MO.) 5 [place] [facility] T[facility] NOTE: Visits indicate total known visits. ED/UCC VISIT TRACKING (12 MO.) 03/07/2022 00[facility]39 [facility] [place] [facility] COMPLAINT: - ABD PAIN, VOMITING 03/04/2022 15:28 [facility] [place] TYPE: Emergency COMPLAINT: - ABDOMINAL PAIN DIAGNOSES: - Allergy status to other drugs, medicaments and biological substances - Hyperlipidemia, unspecified - long term (current) use of insulin - Allergy status to penicillin - Allergy status to narcotic agent - Allergy status to sulfonamides - Essential (primary) hypertension - Other moth exterminator (current) drug therapy - Contact with and (suspected) exposure to COVID-19 - Type 1 diabetes mellitus with diabetic chronic kidney disease - Upper abdominal pain, unspecified - Nausea with vomiting, unspecified - Urinary tract infection, site not specified 02/17/2022 03:45 [facility] [place] TYPE: Emergency COMPLAINT: - LOW BLOOD SUGARS DIAGNOSES: - Allergy status to narcotic agent - Adverse effect of insulin and oral hypoglycemic [antidiabetic] drugs, initial encounter - Allergy status to penicillin - Allergy status to other antibiotic agents - Hypoglycemia, unspecified - Allergy status to sulfonamides - Chronic kidney disease, unspecified - FPC (current) use of insulin - Type 2 [...] mellitus with diabetic chronic kidney disease - long term (current) use of insulin - Unspecified abdominal pain - Hyperlipidemia, unspecified - Acute pancreatitis without necrosis or infection, unspecified - Urinary tract infection, site not specified - Allergy status to sulfonamides - Allergy status to other drugs, medicaments and biological substances - Other moth exterminator (current) drug therapy - Hypertensive chronic [...] disease, or unspecified chronic kidney disease - long term (current) use of insulin - Allergy status to other antibiotic agents - Pain in left knee - Other moth exterminator (current) drug therapy - Allergy status to penicillin - Allergy status to sulfonamides - Allergy status to other drugs, medicaments and biological substances - Contusion of left knee, initial encounter - Chronic kidney disease, unspecified - Hyperlipidemia, unspecified - Type 2 diabetes mellitus with diabetic chronic kidney disease - Type 2 diabetes mellitus without complications 01/26/2022 15:43 [facility] [place] [facility]: [facility] DIAGNOSES: - Upper abdominal pain, unspecified - Acute pancreatitis without necrosis or infection, unspecified - Tachycardia, unspecified - Abdominal Pain - Emesis 01/08/2022 15:43 [facility] [place] TYPE: Emergency DIAGNOSES: - Acute pancreatitis without necrosis or infection, unspecified - Abdominal Pain 12/23/2021 14:51 [facility] [place] TYPE: Emergency COMPLAINT: - ABD PAIN DIAGNOSES: - Allergy status to other antibiotic agents - Contact with and (suspected) exposure to COVID-19 - Hyperlipidemia, unspecified - Allergy status to narcotic agent - Type 2 diabetes mellitus without complications - FPC (current) use of insulin - Unspecified abdominal pain - Allergy status to sulfonamides - Other fci (current) drug therapy - Allergy status to other drugs, medicaments and biological substances - Essential (primary) hypertension 12/04/2021 20:12 [facility] [place] TYPE: Emergency COMPLAINT: - EYE SWELLING DIAGNOSES: - Mixed hyperlipidemia - Allergy status to sulfonamides - Unspecified otitis externa, left ear - FPC (current) use of insulin - Hordeolum externum [...] drugs, medicaments and biological substances - Other fci (current) drug therapy 11/26/2021 22:29 [facility] [place] TYPE: Emergency COMPLAINT: - ABD SWELLING, URINE PROBLEM DIAGNOSES: - Type 2 diabetes mellitus without complications - Dysuria - Hyperlipidemia, unspecified - FPC (current) use of insulin - Essential (primary) hypertension - Allergy status to other drugs, medicaments and biological substances - Allergy status to narcotic agent - Allergy status to other antibiotic agents - Allergy status to sulfonamides - Other fci (current) drug therapy 11/08/2021 00:36 [facility] [place] TYPE: Emergency COMPLAINT: - HIGH BP, DIZZY DIAGNOSES: - Allergy status to narcotic agent - Allergy status to penicillin - Hypertensive chronic kidney disease with stage 1 through stage 4 chronic kidney disease, or unspecified chronic kidney disease - Allergy status to other drugs, medicaments and biological substances - long term (current) use of oral hypoglycemic drugs - Type 2 diabetes mellitus with ketoacidosis without coma - Other moth exterminator (current) drug therapy - Allergy status [...] sulfonamides - Allergy status to penicillin - FPC (current) use of insulin - Other fci (current) drug therapy - Essential (primary) hypertension [...] tract infection, site not specified - Other moth exterminator (current) drug therapy - Hyperlipidemia, unspecified - FPC (current) use of insulin - Left upper [...] status to sulfonamides - Adverse effect of shpagkawlcv-zzlqugvuic-befeow inhibitors, initial encounter - Chronic kidney disease, unspecified - Other moth exterminator (current) drug therapy - Type 2 diabetes mellitus with diabetic chronic kidney disease - long term (current) use of insulin - Allergy status to other antibiotic agents - Allergy status to penicillin 09/09/2021 20:54 [facility] [place] TYPE: Emergency COMPLAINT: - CHEST PAIN DIAGNOSES: - Allergy status to other antibiotic agents - Type 2 diabetes mellitus without complications - FPC (current) use of insulin - Other chest pain - Hyperlipidemia, unspecified - Other moth exterminator (current) drug therapy - Allergy status [...] - Allergy status to sulfonamides - Other fci (current) drug therapy - Unspecified abdominal pain 07/27/2021 20:55 [facility] [facility] DIAGNOSES: - chest pain, left arm pain - Strain of unspecified muscle, fascia and tendon at shoulder and upper arm level, left arm, initial encounter - Chest Pain 07/21/2021 20:03 [facility] TYPE: Emergency COMPLAINT: - CHEST PAIN DIAGNOSES: - Other moth exterminator (current) drug therapy - Allergy status to other antibiotic agents - FPC (current) use of insulin - Type 2 [...] - Left upper quadrant pain - Other fci (current) drug therapy - Type 2 diabetes mellitus with ketoacidosis without coma - Allergy status to sulfonamides - Hyperlipidemia, unspecified - Allergy status to narcotic agent - Urinary tract infection, site not specified - Allergy status to penicillin - Pure hyperglyceridemia - long term (current) use of insulin 07/13/2021 21:19 [facility] [facility] DIAGNOSES: - abd pain Plus 2 More Visits INPATIENT VISIT TRACKING (12 MO.) 01/26/2022 15:43 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
[2022-03-07] MEDS ORDERED: PEPCID20 MG PO (03:06)
[2022-03-07] MEDS ORDERED: ONDANSETRON ODT4 MG PO (03:06)
== END 2022-03-07 03:42 | disposition home or self-care (01) ==
LOC: ED 00:39
DX: R10.10 Upper abdominal pain, unspecified (principal); R11.2 Nausea with vomiting, unspecified; E11.9 Type 2 diabetes mellitus without complications; E78.5 Hyperlipidemia, unspecified; I10 Essential (primary) hypertension; Z88.2 Allergy status to sulfonamides; Z88.8 Allergy status to other drugs, medicaments and biological substances; Z88.5 Allergy status to narcotic agent; Z88.1 Allergy status to other antibiotic agents; Z79.899 Other long term (current) 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; Z79.4 Long term (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
CPT/HCPCS: 36415; 80053; 81001; 82010; 82803; 83690; 84703; 85025; 96374; 96375; 96376; 99284-25; J1170; J2405

== ENCOUNTER 2022-03-12 02:19 | Emergency (ER) | payer OTHER ==
[~2022-03-12] VITALS: Ht 149.9 cm; Wt 44.0 kg
--- OUTSIDE RECORDS SUMMARY | 2022-03-12 02:23 | XMS ---
PreManage Notification: MONTSE GUTIERREZ Security 3Rd Pressman Events No recent Security Events currently on file CRITERIA MET - [facility] - 2 Visits in 30 Days - [facility] - Has Care Guidelines - 6 ED Visits in 6 Months CARE PROVIDERS SAUL THORPE Physician Steam And Gas Turbines Assembler 03/19/2019-[facility] PHONE: Unknown [facility] 01/22/2021-[facility] PHONE: [phone] Jef has no Care Guidelines for this patient. Care History Medical/Surgical 09/24/2021 [facility] Contacted Gerri RUDDputty tinter makerArzcuwj-Bdyahx-rsytugwf of recent ED visits. They will follow up with the patient. 02/05/2021 [facility] - W CALLED AND SPOKE WITH DIRECTOR OF ELEMENTARY EDUCATION WALDEMAR- DISCUSSED RECENT ED VISITS- PRIMARY CARE PHYSICIAN REVIEWED PATIENT RECENT ED VISITS AND DID CONTACT PATIENT-THEY HAVE INSTRUCTED PATIENT TO CONTACT PRECISION GRINDER DR HAMMOND TO SCHEDULE AND EARLIER APT IF POSSIBLE. PATIENT HAS TO MAKE THE APT FOR FOLLOW UP THE CLINIC CAN\T\#39;T SCHEDULE THE APT FOR THE PATIENT. - PATIENT HAS AN APT 02/06/[address] CHRISTENSEN. 01/25/2021 [facility] VOIDING TRIAL SCHEDULED WITH DR CHRISTENSEN UROLOGIST 02/06/21 [place] VISIT COUNT (12 MO.) 5 [place] [facility] NOTE: Visits indicate total known visits. ED/UCC VISIT TRACKING (12 MO.) [facility]22 [facility] [place] [facility] COMPLAINT: - URINE PROBLEM 03/07/2022 00:39 [facility] [place] TYPE: Emergency COMPLAINT: - ABD PAIN, VOMITING DIAGNOSES: - Nausea with vomiting, unspecified - Allergy status to other drugs, medicaments and biological substances - jail (current) use of insulin - Allergy status to other antibiotic agents - Type 2 diabetes mellitus without complications - Allergy status to narcotic agent - Hyperlipidemia, unspecified - Allergy status to sulfonamides - Essential (primary) hypertension - Other group home (current) drug therapy - Upper abdominal pain, unspecified 03/04/2022 15:28 [facility] [place] TYPE: Emergency COMPLAINT: - ABDOMINAL PAIN DIAGNOSES: - Allergy status to other drugs, medicaments and biological substances - Hyperlipidemia, unspecified - terminal operations supervisor (current) use of insulin - Allergy status to penicillin - Allergy status to narcotic agent - Allergy status to sulfonamides - Essential (primary) hypertension - Other filler leaf cutter long (current) drug therapy - Contact with and [...] sulfonamides - Chronic kidney disease, unspecified - jail (current) use of insulin [...] mellitus with diabetic chronic kidney disease - jail (current) use of insulin - Unspecified abdominal pain - Hyperlipidemia, unspecified - Acute pancreatitis without necrosis or infection, unspecified - Urinary tract infection, site not specified - Allergy status to sulfonamides - Allergy status to other drugs, medicaments and biological substances - Other filler leaf cutter long (current) drug therapy - Hypertensive chronic kidney [...] disease, or unspecified chronic kidney disease - jail (current) use of insulin - Allergy status to other antibiotic agents - Pain in left knee - Other group home (current) drug therapy - Allergy status to penicillin - Allergy status to sulfonamides - Allergy status to other drugs, medicaments and biological substances - Contusion of left knee, initial encounter - Chronic kidney disease, unspecified - Hyperlipidemia, unspecified - Type 2 diabetes mellitus with diabetic chronic kidney disease - Type 2 diabetes mellitus without complications [facility]22 [facility] DIAGNOSES: - Upper abdominal pain, unspecified - Acute pancreatitis without necrosis or infection, unspecified - Tachycardia, unspecified - Abdominal Pain - Emesis 01/08/2022 15:43 [facility] DIAGNOSES: - Acute pancreatitis without necrosis or infection, unspecified - Abdominal Pain 12/23/2021 14:51 [facility] TYPE: Emergency COMPLAINT: - ABD PAIN DIAGNOSES: - Allergy status to other antibiotic agents - Contact with and (suspected) exposure to COVID-19 - Hyperlipidemia, unspecified - Allergy status to narcotic agent - Type 2 diabetes mellitus without complications - terminal operations supervisor (current) use of insulin - Unspecified abdominal pain - Allergy status to sulfonamides - Other group home (current) drug therapy - Allergy status to other drugs, medicaments and biological substances - Essential (primary) hypertension 12/04/2021 20:12 [facility] [place] TYPE: Emergency COMPLAINT: - EYE SWELLING DIAGNOSES: - Mixed hyperlipidemia - Allergy status to sulfonamides - Unspecified otitis externa, left ear - terminal operations supervisor (current) use of insulin - Hordeolum externum [...] drugs, medicaments and biological substances - Other group home (current) drug therapy 11/26/2021 22:29 [facility] [place] TYPE: Emergency COMPLAINT: - ABD SWELLING, URINE PROBLEM DIAGNOSES: - Type 2 diabetes mellitus without complications - Dysuria - Hyperlipidemia, unspecified - jail (current) use of insulin - Essential (primary) hypertension - Allergy status to other drugs, medicaments and biological substances - Allergy status to narcotic agent - Allergy status to other antibiotic agents - Allergy status to sulfonamides - Other filler leaf cutter long (current) drug therapy 11/08/2021 00:36 [facility] [place] TYPE: Emergency COMPLAINT: - HIGH BP, DIZZY DIAGNOSES: - Allergy status to narcotic agent - Allergy status to penicillin - Hypertensive chronic kidney disease with stage 1 through stage 4 chronic kidney disease, or unspecified chronic kidney disease - Allergy status to other drugs, medicaments and biological substances - terminal operations supervisor (current) use of oral hypoglycemic drugs - Type 2 diabetes mellitus with ketoacidosis without coma - Other filler leaf cutter long (current) drug therapy - Allergy status to [...] sulfonamides - Allergy status to penicillin - jail (current) use of insulin - Other filler leaf cutter long (current) drug therapy - Essential (primary) hypertension [...] tract infection, site not specified - Other filler leaf cutter long (current) drug therapy - Hyperlipidemia, unspecified - jail (current) use of insulin - Left upper [...] status to sulfonamides - Adverse effect of jwcppmfosjt-jjrmovgrwv-dtfywl inhibitors, initial encounter - Chronic kidney disease, unspecified - Other filler leaf cutter long (current) drug therapy - Type 2 diabetes mellitus with diabetic chronic kidney disease - jail (current) use of insulin - Allergy status to other antibiotic agents - Allergy status to penicillin 09/09/2021 20:54 [facility] [place] TYPE: Emergency COMPLAINT: - CHEST PAIN DIAGNOSES: - Allergy status to other antibiotic agents - Type 2 diabetes mellitus without complications - terminal operations supervisor (current) use of insulin - Other chest pain - Hyperlipidemia, unspecified - Other group home (current) drug [...] therapy - Unspecified abdominal pain 07/27/2021 20:55 [facility] [place] TYPE: Emergency DIAGNOSES: - [...] chest pain - Pure hyperglyceridemia 07/13/2021 23:[address] [facility] [place] TYPE: Emergency COMPLAINT: - ABD PAIN DIAGNOSES: - Allergy status to other antibiotic agents - Left upper quadrant pain - Other group home (current) drug therapy - Type 2 diabetes mellitus with ketoacidosis without coma - Allergy status to sulfonamides - Hyperlipidemia, unspecified - Allergy status to narcotic agent - Urinary tract infection, site not specified - Allergy status to penicillin - Pure hyperglyceridemia - terminal operations supervisor (current) use of insulin Plus 3 More Visits INPATIENT VISIT TRACKING (12 MO.) 01/26/2022 15:43 [facility] [place] TYPE: Surgical Services DIAGNOSES: - Acute pancreatitis without necrosis or infection, unspecified - jail (current) use of insulin - Chronic kidney disease, stage 3b - Tachycardia, unspecified - 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 - Type 1 diabetes mellitus with hyperglycemia - Upper abdominal pain, unspecified - Chronic kidney disease, stage 3a 01/08/2022 15:43 [facility] [place] TYPE: Medical Surgical DIAGNOSES: - jail (current) use of insulin - Idiopathic acute pancreatitis without necrosis or infection - Chronic kidney disease, stage 3b - Personal history of leukemia - 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
[2022-03-12] MEDS ORDERED: DIFLUCAN150 MG PO (03:18)
== END 2022-03-12 03:45 | disposition home or self-care (01) ==
LOC: ED 02:19
DX: B37.3 Candidiasis of vulva and vagina (principal); E11.9 Type 2 diabetes mellitus without complications; E78.5 Hyperlipidemia, unspecified; I10 Essential (primary) hypertension; Z88.2 Allergy status to sulfonamides; Z88.8 Allergy status to other drugs, medicaments and biological substances; Z88.1 Allergy status to other antibiotic agents; Z88.0 Allergy status to penicillin; Z88.5 Allergy status to narcotic agent; Z79.899 Other long term (current) 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; Z79.4 Long term (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
CPT/HCPCS: 81001; 84703; 99283

== ENCOUNTER 2022-03-16 07:38 | Inpatient (IN) | payer OTHER ==
[~2022-03-16] VITALS: Ht 149.9 cm; Wt 43.5 kg
[~2022-03-16 07:38] MED LIST changes: +DIFLUCAN150 MG PO; +LEVEMIR FL100 UNIT/2 SUB-Q; -LEVEMIR100 UNIT/1 SUB-Q
--- OUTSIDE RECORDS SUMMARY | 2022-03-16 07:40 | XMS ---
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 PHONE: Unknown [facility] 01/22/2021-[facility] PHONE: [phone] Jef has no Care Guidelines for this patient. Care History Medical/Surgical 09/24/2021 [facility] Contacted Gerri RUDDfinance assistantCipkkjt-Fpvvkb-jardyxzi of recent ED visits. They will follow up with the patient. 02/05/2021 [facility] - W CALLED AND SPOKE WITH ENGLISH HORN PLAYER WALDEMAR- DISCUSSED RECENT ED VISITS- PRIMARY CARE PHYSICIAN REVIEWED PATIENT RECENT ED VISITS AND DID CONTACT PATIENT-THEY HAVE INSTRUCTED PATIENT TO CONTACT FIREARMS MODEL MAKER DR HAMMOND TO SCHEDULE AND EARLIER APT IF POSSIBLE. PATIENT HAS TO MAKE THE APT FOR FOLLOW UP THE CLINIC CAN\T\#39;T SCHEDULE THE APT FOR THE PATIENT. - PATIENT HAS AN APT 02/06/[address] CHRISTENSEN. 01/25/2021 [facility] VOIDING TRIAL SCHEDULED WITH DR CHRISTENSEN UROLOGIST 02/06/21 [place] VISIT COUNT (12 MO.) 5 [place] [facility] NOTE: Visits indicate total known visits. ED/UCC VISIT TRACKING (12 MO.) 03/16/2022 07[facility]38 [facility] [place] [facility] COMPLAINT: - ABDOMINAL PAIN 03/12/2022 02:19 [facility] [place] TYPE: Emergency COMPLAINT: - URINE PROBLEM DIAGNOSES: - Hyperlipidemia, unspecified - Allergy status to sulfonamides - Dysuria - Essential (primary) hypertension - Other exterminator helper termite (current) drug therapy - Allergy status to other antibiotic agents - Allergy status to narcotic agent - Allergy status to other drugs, medicaments and biological substances - Type 2 diabetes mellitus without complications - Candidiasis of vulva and vagina - Allergy status to penicillin - roasterman (current) use of insulin 03/07/2022 00:39 [facility] [place] TYPE: Emergency COMPLAINT: - ABD PAIN, VOMITING DIAGNOSES: - Nausea with vomiting, unspecified - Allergy status to other drugs, medicaments and biological substances - [facility] (current) use of insulin - Allergy status to other antibiotic agents - Type 2 diabetes mellitus without complications - Allergy status to narcotic agent - Hyperlipidemia, unspecified - Allergy status to sulfonamides - Essential (primary) hypertension - Other exterminator helper termite (current) drug therapy - Upper abdominal pain, unspecified 03/04/2022 15:28 [facility] [place] TYPE: Emergency COMPLAINT: - ABDOMINAL PAIN DIAGNOSES: - Allergy status to other drugs, medicaments and biological substances - Hyperlipidemia, unspecified - [facility] (current) use of insulin - Allergy status to penicillin - Allergy status to narcotic agent - Allergy status to sulfonamides - Essential (primary) hypertension - Other penitentiary (current) drug therapy - Contact with and [...] sulfonamides - Chronic kidney disease, unspecified - roasterman (current) use of insulin - Type 2 [...] mellitus with diabetic chronic kidney disease - [facility] (current) use of insulin - Unspecified abdominal pain - Hyperlipidemia, unspecified - Acute pancreatitis without necrosis or infection, unspecified - Urinary tract infection, site not specified - Allergy status to sulfonamides - Allergy status to other drugs, medicaments and biological substances - Other exterminator helper termite (current) drug therapy - Hypertensive chronic kidney disease with stage 1 through stage 4 chronic kidney disease, or unspecified chronic kidney disease - Allergy status to other antibiotic agents - Allergy status to narcotic agent 02/07/2022 23:34 [facility] TYPE: Emergency COMPLAINT: - LEFT KNEE INJ DIAGNOSES: - Allergy status to narcotic agent - Fall on same level from slipping, tripping and stumbling without subsequent striking against object, initial encounter - Hypertensive chronic kidney disease with stage 1 through stage 4 chronic kidney disease, or unspecified chronic kidney disease - roasterman (current) use of insulin - Allergy status to other antibiotic agents - Pain in left knee - Other penitentiary (current) drug therapy - Allergy status to penicillin - Allergy status to sulfonamides - Allergy status to other drugs, medicaments and biological substances - Contusion of left knee, initial encounter - Chronic kidney disease, unspecified - Hyperlipidemia, unspecified - Type 2 diabetes mellitus with diabetic chronic kidney disease - Type 2 diabetes mellitus without complications 01/26/2022 15:43 [facility] [place] TYPE: Emergency DIAGNOSES: - Upper abdominal pain, unspecified - Acute pancreatitis without necrosis or infection, unspecified - Tachycardia, unspecified - Abdominal Pain - Emesis 01/08/2022 15:43 [facility] [place] TYPE: Emergency DIAGNOSES: - Acute pancreatitis [...] - Allergy status to sulfonamides - Other penitentiary (current) drug therapy - Allergy status to other drugs, medicaments and biological substances - Essential (primary) hypertension 12/04/2021 20:12 [facility] TYPE: Emergency COMPLAINT: - EYE SWELLING DIAGNOSES: - Mixed hyperlipidemia - Allergy status to sulfonamides - Unspecified otitis externa, left ear - roasterman (current) use of insulin - Hordeolum externum [...] drugs, medicaments and biological substances - Other exterminator helper termite (current) drug therapy 11/26/2021 22:29 [facility] [...] - Allergy status to sulfonamides - Other penitentiary (current) drug therapy 11/08/2021 00:36 [facility] [place] TYPE: Emergency COMPLAINT: - HIGH BP, DIZZY DIAGNOSES: - Allergy status to narcotic agent - Allergy status to penicillin - Hypertensive chronic kidney disease with stage 1 through stage 4 chronic kidney disease, or unspecified chronic kidney disease - Allergy status to other drugs, medicaments and biological substances - FPC (current) use of oral hypoglycemic drugs - Type 2 diabetes mellitus with ketoacidosis without coma - Other exterminator helper termite (current) drug therapy - Allergy status to [...] sulfonamides - Allergy status to penicillin - roasterman (current) use of insulin - Other penitentiary (current) drug therapy - Essential (primary) hypertension [...] tract infection, site not specified - Other penitentiary (current) drug therapy - Hyperlipidemia, unspecified - roasterman (current) use of insulin - Left upper [...] status to sulfonamides - Adverse effect of xsgkjcdnliw-abqrimndme-nzbetk inhibitors, initial encounter - Chronic kidney disease, unspecified - Other penitentiary (current) drug therapy - Type 2 diabetes mellitus with diabetic chronic kidney disease - FPC (current) use of insulin - Allergy status to other antibiotic agents - Allergy status to penicillin 09/09/2021 20:54 [facility] [place] TYPE: Emergency COMPLAINT: - CHEST PAIN DIAGNOSES: - Allergy status to other antibiotic agents - Type 2 diabetes mellitus without complications - roasterman (current) use of insulin - Other chest pain - Hyperlipidemia, unspecified - Other penitentiary (current) drug therapy - Allergy status to [...] - Allergy status to sulfonamides - Other penitentiary (current) drug therapy - Unspecified abdominal pain 07/27/2021 20:55 [facility] [place] TYPE[place] Emergency DIAGNOSES: - chest pain, left arm pain - Strain of unspecified muscle, fascia and tendon at shoulder and upper arm level, left arm, initial encounter - Chest Pain 07/21/2021 20:03 [facility] TYPE: Emergency COMPLAINT: - CHEST PAIN DIAGNOSES: - Other exterminator helper termite (current) drug therapy - Allergy status to other antibiotic agents - roasterman (current) use of insulin - Type 2 diabetes mellitus without complications - Allergy status to narcotic agent - Pain in left shoulder - Allergy status to sulfonamides - Hyperlipidemia, unspecified - Allergy status to penicillin - Other chest pain - Pure hyperglyceridemia Plus 4 More Visits INPATIENT VISIT TRACKING (12 MO.) 01/26/2022 [facility] DIAGNOSES: - Acute pancreatitis without necrosis or infection, unspecified - FPC (current) use of insulin - Chronic kidney disease, stage 3b - Tachycardia, unspecified - 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
--- NOTE | 2022-03-16 12:29 | NUR ---
THIS RN ASSUMED CARE OF PT AT 1145. PT RESTING IN BED. PT ON ROOM AIR, LUNG SOUNDS CLEAR, DENIES SOB. PT RATING ABD PAIN 5/10, GIVEN 0.5MG IV DIALUDID, ABD TENDER TO PALPATE. PT WITH MILD NAUSEA, DENIES NEED FOR ANTIEMETIC, BOWEL TONES ACTIVE. CMS INTACT, WITHOUT EDEMA. IV FLUIDS STARTED LR AT 125 TO LEFT FOREARM. DISCUSSED PLAN OF CARE AND PAIN MANAGEMENT. PT PROVIDED WITH ICE CHIPS PER ORDER, TOOK SMALL SIP OF WATER WITH PROTONIX. PT DENIES OTHER NEEDS AT THIS TIME. SPOUSE SLEEPING IN RECLINING CHAIR. MESSAGE LEFT WITH [facility] FOR RECENT MEDICAL RECORDS.
--- NOTE | 2022-03-16 13:08 | NUR ---
PT REPORT OF PURITIS, RECALLS THAT SHE NEEDED BENADRYL DURING PREVIOUS ADMISSION FOR PURITIS FROM PAIN MEDICATION. DISCUSSED WITH DR. RAIN, NEW ORDER FOR IV BENADRYL. 25MG IV BENADRYL ADMINISTERED. PT DENIESOTHER NEEDS AT THIS TIME.
--- NOTE | 2022-03-16 14:50 | NUR ---
PT REPORTING 7/10 ABDOMINAL PAIN. 0.5MG DILAUDID. BLOOD SUGAR ASSESSED 171. PT REPROTS FAST DROPS IN BLOOD SUGAR AND REFUSED INSULIN. HEAT PACK PROVIDED. REPORT RECIEVED FROM GANESH RUDD. WILL BE TAKING OVER CARES. CALL LIGHT IN REACH.
[2022-03-16] MEDS ORDERED: TYLENOL325 MG PO (15:51)
--- NOTE | 2022-03-16 16:13 | NUR ---
MED REC COMPLETE
--- NOTE | 2022-03-16 16:14 | NUR ---
ROUNDED ON PT TO ASSESS BLOOD SUGAR. VALUE WAS 102. DR VASQUEZ NOTIFIED. ORDER FOR D5LR TO START AT 125ML/HR. FLUIDS STARTED. PT REPORTING 9/10 ABDOMINAL PAIN. 0.5MG DILAUDID ADMINSTERED. PT RESING IN BED NOW. DENIES FURTHER NEEDS. CALL LIGHT IN REACH
--- NOTE | 2022-03-16 18:10 | NUR ---
CALL LIGHT ANSWERED. PT REPORTING 10/10 ABDOMINAL PAIN. 1 TAB OXYCODONE ADMISNTERED. PT REPORTS ALSO SLIGHT NAUSEA. ZOFRAN GIVEN. PT AMBUALTED TO BATHROOM FOR 300ML VOID THEN BACK TO BED. BLOOD SUGAR 166. 1 UNIT INSULIN ADMISNTERED. HEAT PACK PROVIDED. WILL CONTINUE TO MONITOR. CALL LIGHT AND PERSONAL ITEMS WITHIN REACH.
--- NOTE | 2022-03-16 19:13 | NUR ---
PT REPORTS 8/10 ABD PAIN AND ITCHING. PRN PAIN AND ITCHING MEDS PROVIDED. FAMILY IN ROOM. IV WNL, IV FLUIDS INFUSING PER ORDER. NO OTHER NEEDS AT THIS TIME. CALL LIGHT IN REACH.
--- NOTE | 2022-03-16 19:36 | NUR ---
RECEIVED REPORT FROM DAY SHIFT RN. PATIENT IS RESTING IN BED. FAMILY PRESNET IN ROOM. HUANG RN IN TO ADMIN PAIN MEDICATION.
--- NOTE | 2022-03-16 21:00 | NUR ---
PATIENT ASSESMENT COMPLETED. INTAKE AND OUTPUT RECORDED. VITALS TAKEN AND RECORDED. PATIENT RATES PAIN AT A 6/10 AND DENIES THE NEED FOR PAIN MEDICATION AT THIS TIME. PATIENT PROVIDED WITH X2 WARM PACK FOR ABD. PM MEDS GIVEN PER ORDER. PATIENTS IV INFUSING PER ORDER. PRN NAUSEA MEDS GIVEN PER ORDER. ACTIVE BOWEL TONES NOTED. NO FURTHER NEEDS NOTED. CALL LIGHT IN REACH.
--- NOTE | 2022-03-16 23:05 | NUR ---
PATIENT IS RESTING IN BED WITH EYES CLOSED, RR 15. CALL LIGHT IN REACH.
--- NOTE | 2022-03-17 00:25 | NUR ---
PATIENT ASSISTED TO THE RESTROOM A SBA. PATIENT ABLE TO VOID. PATIENT IS BACK IN BED RESTING. PATIENT RATES PAIN AT A 5/10, PRN PAIN MEDICATION GIVEN PER ORDER. IV INFUSING PER ORDER. PATIENT DENIES ANY NAUSEA. NO FURTHER NEEDS NOTED. CALL LIGHT IN REACH.
--- NOTE | 2022-03-17 01:49 | NUR ---
PATIENTS VITALS TAKEN AND RECORDED. INTAKE AND OUTPUT RECORDED. BS OBTAINED AND SS GIVEN PER ORDER. PATIENT RATES PAIN AT A 4/10 AND DNEIES THE NEED FOR PAIN MEDICATION AT THIS TIME. PATIENT DENIES ANY NAUSEA. PATIENT REPORTS "ITCHING ALL OVER", PRN MEDICATION GIVEN PER ORDER. IV INFSUING PER ORDER. WARM PACKS PROVIDED FOR PATIENTS ABD PAIN. PATIENT DENIES ANY FURTHER NEEDS CALL LIGHT IN REACH. PRESENT AT THE BEDSIDE.
--- NOTE | 2022-03-17 02:20 | NUR ---
PATIENT IS RESTING IN BED WITH EYES CLSOED, RR 16. CALL LIGHT IN REACH.
--- NOTE | 2022-03-17 04:45 | NUR ---
PATIENT IS RESTING IN BED WITH EYES CLOSED, RR 16. CALL LIGHT IN REACH. ASLEEP ON COUCH.
--- NOTE | 2022-03-17 06:25 | NUR ---
PATIENTS VITALS TAKEN AND RECORDED. INTAKE AND OUTPUT RECORDED. IV INFUSING PER ORDER. AM LABS DRAWN AND SENT TO LAB. PATIENT RATES PAIN AT A 4/10, PRN PAIN MEDICATION GIVEN PER ORDER. PATIENT DENIES ANY NAUSEA. BS CHECKEDN AND SS ADMINISTERED PER ORDER. WARM PACK X2 APPLIED TO ABD PER PATIENT REQUEST. NO FURTHER NEEDS NOTED. CALL LIGHT IN REACH.
--- NOTE | 2022-03-17 08:31 | NUR ---
MORNIGN ASSESSMENT COMPLETE. ABD MILDLY DISTENDED, ACTIVE BOWEL TONES, SLIGHT TENDERNESS. PT STATES PAIN HAS IMPROVED TO 2/10. PT DENIES FUIRTHER NEEDS AT THIS TIME. CALL LIGHT WITH REACH. AT BEDSIDE.
--- NOTE | 2022-03-17 10:29 | NUR ---
PT C/O 04/24 ABD PAIN, GIVEN PRN OXYCODONE 10MG. PT DENIES FURTHER NEEDS AT THIS TIME. CALL LIGHT IN REACH.
--- NOTE | 2022-03-17 11:58 | NUR ---
ROUNDING ON PT, REQUESTED BENADRYL, EXPLAINED IT COULD NOT BE GIVEN UNTIL 1430, PT VERBALIZED UNDERSTANDING. PT STATES PAIN HAS IMPROVED. REQUESTING SHOWER LATER TODAY. DENIES FURTHER NEEDS AT THIS TIME. CALL LIGHT IN REACH.
--- NOTE | 2022-03-17 12:47 | NUR ---
pt c/o 04/24 abd pain. prn dliaudid given. pt denies nausea. denies further needs at this time. call light in reach.
--- NOTE | 2022-03-17 14:48 | NUR ---
PT C/O ITCHING AND 6/10 ABD PAIN, PRN BENADRYL AND OXYCODONE GIEVEN. PT DENIES FURTHER NEEDS AT THIS TIME. CALL LIGHT IN REACH.
--- NOTE | 2022-03-17 14:49 | NUR ---
LAB COMPLETED, SENT. PT REQUESTS AMANDA, PRIMARY RN NOTIFIED. NO OTHER NEEDS. CALL LIGHT IN REACH.
--- NOTE | 2022-03-17 16:49 | NUR ---
PT AWAKE IN BED, STATES PAIN 3/10. DENIES NEED FOR INTERVENTION OR FURTHER NEEDS AT THIS TIME. FRESH ICE WATER AND DIET SHIRA PROVIDED. CALL LIGHT IN REACH, AT BEDSIDE.
--- NOTE | 2022-03-17 17:15 | NUR ---
PT SITTING UP IN BED EATING DINNER. DENIES NEEDS AT THIS TIME. CALL LIGHT IN REACH.
--- NOTE | 2022-03-17 19:28 | NUR ---
RECEIVED REPORT FROM DAY SHIFT RN. PATIENT IS RESTING IN BED WITH EYES CLOSED, RR 17, CALL LIGHT IN REACH.
--- NOTE | 2022-03-17 20:22 | NUR ---
PATIENT IS SL FOR SHOWER. PATIENT PROVIDED WITH TOWELS AND SOAP TO SHOWER. PRESENT IN THE ROOM. PATIENT IS SHOWERING AT THIS TIME. PATIENT WILL FABRIZIO WHEN SHOWER COMPLETED.
--- NOTE | 2022-03-17 20:45 | NUR ---
PATIENT CALLED STATED SHE IS DONE OUT OF SHOWER. THIS X RAY OPERATOR WENT IN AND PICKED UP USED TOWELS AND DRIED THE BATHROOM. CHANGED BED LINEN. IN THE ROOM. V/S AND I&O'S TAKEN AND CHARTED BY PRIMARY RN ANTONIETA.. PATIENT CHECKED HER OWN BLOOD SUGAR. WARM BLANKET PROVIDED.
--- NOTE | 2022-03-17 20:45 | NUR ---
PATIENTS IV FLUIDS ARE BACK INFUSING AFTER SHOWER.
--- NOTE | 2022-03-17 21:32 | NUR ---
VITALS TAKEN AND RECORDED. INTAKE AND OUTPUT RECORDED. IV INFUSING PER ORDER. PATIENT RATES PAIN AT A 7/10, PRN PAIN MEDICATION GIVEN PER ORDER. PATIENT REPORTS NAUSEA, PRN NAUSEA MEDICATION GIVEN PER ORDER. PM MEDS GIVEN PER ORER. PATIENT ASSESMENT COMPLETED. PATIENT PROVIDED X2 WARM PACKS FOR ABD. PATIENT DENIES ANY FURTHER NEEDS. PRESENT IN THE ROOM. CALL LIGHT IN REACH.
--- NOTE | 2022-03-17 23:19 | NUR ---
PATIENT GIVEN PRN PAIN MEDICATION FOR 7/10 PAIN IN HER ABD. X2 WARM PACKS PROVIDED. PRN BENADRYL GIVEN FOR COMPLAINTS OF ITCHING. NO FURTHER NEEDS NOTED. CALL LIGHT IN REACH.
--- NOTE | 2022-03-18 00:17 | NUR ---
PATIENT IS RESTING IN BED WITH EYES CLOSED, RR 16. CALL LIGHT IN REACH. HSBAND ASLEEP ON COUCH. IV INFUSING PER ORDER.
--- NOTE | 2022-03-18 01:10 | NUR ---
TAKING OVER CARE OF PT, PT USED CALL LIGHT, C/O ITCHING, RECEIVED BENADRYL AT 2242. DIET POP GIVEN ON REQUESTS, VERY DROWSY, ALERT AND ORIENTED. IVF INFUSING W/O PROBLEMS, ROOMING IN
--- NOTE | 2022-03-18 02:34 | NUR ---
CALL LIGHT ANSWERED. WARM BLANKET AND WARM PACK PROVIDED.
--- NOTE | 2022-03-18 03:09 | NUR ---
Pt very drowsy, c/o 05/25 abd pain, medicated wth oxyodone 10mg po and tylenol 650mg po. c/o itching, will bring benadryl when due in a couple hours since she received Benadryl at 2242, explained to pt, coop. declines lotion to skin. goes back to sleep very quickly. coop with assessment. on room air. IVF infusing w/o problems. Up to BSC and voiding clear urine QS. no c/o n/v or emesis. tolerating liquids well.
--- NOTE | 2022-03-18 04:45 | NUR ---
C/O ITCHING ALL OVER, MEDICATED WITH BENADRYL 25MG IV, COOP WITH VITALS. TOLERATING LIQUIDS, NO C/O N/V
--- NOTE | 2022-03-18 05:03 | NUR ---
Has bilat hearing aids, [place]. on room air,lungs clear bilat. c/o itching all over medicated with Benadryl 25mg IV x2, mildly effective. declines lotion very drowsy most of this shift but continues to c/o chronic and constant abd pain. medicated with Dilaudid x1 and Oxycodone 10mg x2, tylenol 650mg x1 as of this time states fair to mild pain control "its better not to have pain, I do not want to feel pain"stated. IVF infusing LFA patent. Up to BSC, voiding QS. declines to walk up to br "It hurts too much, I do not like pain". has tolerating clear fluids well. no emesis. did c/o feeling nauseated at beging of shift and was medicated with zofran, no further c/o. CBG 104 at begining of shift. "I want to go home where I have what can make me feel better", no further explanation. at bedside
--- NOTE | 2022-03-18 07:20 | NUR ---
SHIFT REPORT RECEIVED SHIFT REPORT FROM BLAIRE SIMENTAL. PATIENT DENIES PAIN AT THIS TIME AND DID NOT WANT PAIN MEDICATION AND JUST WANTED TO REST. PATIENT'S ASLEEP ON THE COUCH. PATIENT HAS NO NURSING CARE NEEDS AT THIS TIME. CALL LIGHT IN REACH.
--- NOTE | 2022-03-18 08:06 | NUR ---
PATIENT HAS C/O 6/10 ABD PAIN AND GIVEN PO OXYCODONE WITH AM MEDS. AM ASSESSMENT COMPLETE. PATIENT CONTINUOUSLY ASKING WHEN THE MD WILL BE HERE SHE WANTS TO LEAVE. INFOMED THE PATIENT I WOULD LET HER KNOW SOON ARRIVES. CALL LIGHT IN REACH.
--- NOTE | 2022-03-18 09:33 | NUR ---
PATIENT CALLING AGAIN TO SEE IF ARRIVED SHE WANTS TO GO HOME. INFORMED PATIENT I WOULD LET HER KNOW SOON ARRIVED. PATIENT VERBALIZED UNDERSTANDING.
--- NOTE | 2022-03-18 10:09 | NUR ---
PATIENT RESTING QUIETLY, EYES CLOSED, RESPIRATIONS ARE REGULAR AND EVEN, CALL LIGHT IN REACH.
[2022-03-18] MEDS ORDERED: FENOFIBRATE48 MG PO (10:31)
[2022-03-18] MEDS ORDERED: OXYCODONE HCL5 MG PO (10:34)
[2022-03-18] MEDS ORDERED: PROCHLORPERAZINE5 MG PO (10:36)
--- NOTE | 2022-03-18 11:36 | NUR ---
THIS RN TRIED TO HELP PATIENT GET READY TO GO HOME, BUT PATIENT DIDN'T REALLY WANT ANY ASSISTANCE AND WAS IN A HURRY TO LEAVE. TIA, MAILROOM MANAGER ALSO TRIED TO HELP PATIENT GET HER THINGS TOGETHER AND PATIENT WAS NOT ACCEPTING ANY HELP FROM TIA EITHER. PATIENT LEFT SOME SHAMPOO AND LOTION IN THE ROOM THAT HAS BEEN DISPOSED OF BY ES AND PATIENT ALSO LEFT HER FOLLOW UP AND DC INSTRUCTIONS IN THE ROOM.
== END 2022-03-18 11:20 | disposition home or self-care (01) | DRG 439 ==
LOC: ED 07:38 → MS 10:31
PROVIDERS: ADMIT Internal Medicine; ATTEND Internal Medicine
DX: K85.00 Idiopathic acute pancreatitis without necrosis or infection (principal); N17.9 Acute kidney failure, unspecified; E78.1 Pure hyperglyceridemia; Z20.822 Contact with and (suspected) exposure to COVID-19; I12.9 Hypertensive chronic kidney disease with stage 1 through stage 4 chronic kidney disease, or unspecified chronic kidney disease; E10.22 Type 1 diabetes mellitus with diabetic chronic kidney disease; N18.32 Chronic kidney disease, stage 3b; D63.1 Anemia in chronic kidney disease; E83.42 Hypomagnesemia; H91.91 Unspecified hearing loss, right ear; E78.5 Hyperlipidemia, unspecified; Z98.890 Other specified postprocedural states; R74.01 Elevation of levels of liver transaminase levels; Z90.49 Acquired absence of other specified parts of digestive tract; Z86.14 Personal history of Methicillin resistant Staphylococcus aureus infection; Z88.0 Allergy status to penicillin; Z88.1 Allergy status to other antibiotic agents; Z88.2 Allergy status to sulfonamides; Z88.6 Allergy status to analgesic agent; Z88.8 Allergy status to other drugs, medicaments and biological substances; Z79.899 Other long term (current) 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
CPT/HCPCS: 36415; 80053; 80061; 81001; 82306; 82607; 82728; 83036; 83540; 83550; 83690; 83735; 84703; 85025; 87502; 96361; 96374; 96375; 96376; 99284-25; A9270; C9803; J0780; J1170; J1200; J1650; J1815; J2405; J3475; J7030; J7042; J7121; U0003

== ENCOUNTER 2022-03-19 06:54 | Inpatient (IN) | payer OTHER ==
[~2022-03-19] VITALS: Ht 149.9 cm; Wt 49.4 kg
[~2022-03-19 06:54] MED LIST changes: +FENOFIBRATE48 MG PO; +OXYCODONE HCL5 MG PO; +PROCHLORPERAZINE5 MG PO; +TYLENOL325 MG PO
--- OUTSIDE RECORDS SUMMARY | 2022-03-19 06:56 | XMS ---
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 Care History Medical/Surgical 09/24/2021 [facility] Contacted Gerri RUDDmarine [id number] of recent ED visits. They will follow up with the patient. 02/05/2021 [facility] - W CALLED AND SPOKE WITH PRESS TENDER INCENDIARY GRENADE WALDEMAR- DISCUSSED RECENT ED VISITS- PRIMARY CARE PHYSICIAN REVIEWED PATIENT RECENT ED VISITS AND DID CONTACT PATIENT-THEY HAVE INSTRUCTED PATIENT TO CONTACT FOOD PROCESSOR DR HAMMOND TO SCHEDULE AND EARLIER APT IF POSSIBLE. PATIENT HAS TO MAKE THE APT FOR FOLLOW UP THE CLINIC CAN\T\#39;T SCHEDULE THE APT FOR THE PATIENT. - PATIENT HAS AN APT 02/06/[address] CHRISTENSEN. 01/25/2021 [facility] VOIDING TRIAL SCHEDULED WITH DR CHRISTENSEN UROLOGIST 02/06/21 [place] VISIT COUNT (12 MO.) 5 [facility] NOTE: Visits indicate total known visits. ED/UCC VISIT TRACKING (12 MO.) 03[facility]19[facility]2022 06:55 [facility] [place] [place] COMPLAINT: - ABD PAIN, VOMITING 03/16/2022 07:38 [facility] [place] TYPE: Emergency COMPLAINT: - ABDOMINAL PAIN 03/12/2022 02:19 [facility] [place] TYPE: Emergency COMPLAINT: - URINE PROBLEM DIAGNOSES: - Hyperlipidemia, unspecified - Allergy status to sulfonamides - Dysuria - Essential (primary) hypertension - Other termite treater helper (current) drug therapy - Allergy status to other antibiotic agents - Allergy status to narcotic agent - Allergy status to other drugs, medicaments and biological substances - Type 2 diabetes mellitus without complications - Candidiasis of vulva and vagina - Allergy status to penicillin - halfway (current) use of insulin 03/07/2022 00:39 [facility] [place] TYPE: Emergency COMPLAINT: - ABD PAIN, VOMITING DIAGNOSES: - Nausea with vomiting, unspecified - Allergy status to other drugs, medicaments and biological substances - termite exterminator (current) use of insulin - Allergy status to other antibiotic agents - Type 2 diabetes mellitus without complications - Allergy status to narcotic agent - Hyperlipidemia, unspecified - Allergy status to sulfonamides - Essential (primary) hypertension - Other termite treater helper (current) drug therapy - Upper abdominal pain, unspecified 03/04/2022 15:28 [facility] [place] TYPE: Emergency COMPLAINT: - ABDOMINAL PAIN DIAGNOSES: - Allergy status to other drugs, medicaments and biological substances - Hyperlipidemia, unspecified - termite exterminator (current) use of insulin - Allergy status to penicillin - Allergy status to narcotic agent - Allergy status to sulfonamides - Essential (primary) hypertension - Other termite treater helper (current) drug therapy - Contact with and [...] sulfonamides - Chronic kidney disease, unspecified - halfway (current) use of insulin - Type 2 [...] mellitus with diabetic chronic kidney disease - termite exterminator (current) use of insulin - Unspecified abdominal pain - Hyperlipidemia, unspecified - Acute pancreatitis without necrosis or infection, unspecified - Urinary tract infection, site not specified - Allergy status to sulfonamides - Allergy status to other drugs, medicaments and biological substances - Other 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 (current) drug therapy - Hypertensive chronic kidney [...] disease, or unspecified chronic kidney disease - halfway (current) use of insulin - Allergy status to other antibiotic agents - Pain in left knee - Other 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 (current) drug therapy - Allergy status to penicillin - Allergy status to sulfonamides - Allergy status to other drugs, medicaments and biological substances - Contusion of left knee, initial encounter - Chronic kidney disease, unspecified - Hyperlipidemia, unspecified - Type 2 diabetes mellitus with diabetic chronic kidney disease - Type 2 diabetes mellitus without complications [facility] [place] [facility] DIAGNOSES: - Upper abdominal pain, unspecified - Acute pancreatitis without necrosis or infection, unspecified - Tachycardia, unspecified - Abdominal Pain - Emesis 01/08/2022 15[facility] [place] [facility] Emergency DIAGNOSES: - Acute pancreatitis without necrosis or infection, unspecified - Abdominal Pain 12/23/2021 14:51 [facility] TYPE: Emergency COMPLAINT: - ABD PAIN DIAGNOSES: - Allergy status to other antibiotic agents - Contact with and (suspected) exposure to COVID-19 - Hyperlipidemia, unspecified - Allergy status to narcotic agent - Type 2 diabetes mellitus without complications - halfway (current) use of insulin - Unspecified abdominal pain - Allergy status to sulfonamides - Other 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 (current) drug therapy - Allergy status to other drugs, medicaments and biological substances - Essential (primary) hypertension 12/04/2021 20:12 [facility] [place] TYPE: Emergency COMPLAINT: - EYE SWELLING DIAGNOSES: - Mixed hyperlipidemia - Allergy status to sulfonamides - Unspecified otitis externa, left ear - halfway (current) use of insulin - Hordeolum externum [...] drugs, medicaments and biological substances - Other 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 (current) drug therapy 11/26/2021 22:29 [facility] [place] TYPE: Emergency COMPLAINT: - ABD SWELLING, URINE PROBLEM DIAGNOSES: - Type 2 diabetes mellitus without complications - Dysuria - Hyperlipidemia, unspecified - termite exterminator (current) use of insulin - Essential (primary) hypertension - Allergy status to other drugs, medicaments and biological substances - Allergy status to narcotic agent - Allergy status to other antibiotic agents - Allergy status to sulfonamides - Other termite treater helper (current) drug therapy 11/08/2021 00:36 [facility] [place] TYPE: Emergency COMPLAINT: - HIGH BP, DIZZY DIAGNOSES: - Allergy status to narcotic agent - Allergy status to penicillin - Hypertensive chronic kidney disease with stage 1 through stage 4 chronic kidney disease, or unspecified chronic kidney disease - Allergy status to other drugs, medicaments and biological substances - termite exterminator (current) use of oral hypoglycemic drugs - [...] sulfonamides - Allergy status to penicillin - halfway (current) use of insulin - Other 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 [...] infection, site not specified - Other 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 (current) drug therapy - Hyperlipidemia, unspecified - halfway (current) use of insulin - Left upper [...] status to sulfonamides - Adverse effect of orubtbfpnxp-qrjuqpljax-hyssqt inhibitors, initial encounter - Chronic kidney disease, unspecified - Other 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 (current) drug therapy - Type 2 diabetes mellitus with diabetic chronic kidney disease - termite exterminator (current) use of insulin [...] Allergy status to sulfonamides - Other termite treater helper (current) drug therapy - Unspecified abdominal pain 07/27/2021 20:55 [facility] Nita LEÓN TYPE: Emergency DIAGNOSES: - chest pain, left arm pain - Strain of unspecified muscle, fascia and tendon at shoulder and upper arm level, left arm, initial encounter - Chest Pain Plus 5 More Visits INPATIENT VISIT TRACKING (12 MO.) 03/16/2022 10:31 [facility] [place] TYPE: Medical Surgical COMPLAINT: - ACUTE PANCREATITIS 01/26/2022 15:43 [facility] Joshua LEÓ[place] TYPE: Surgical Services DIAGNOSES: - Acute pancreatitis without necrosis or infection, unspecified - halfway (current) use of insulin - Chronic kidney disease, stage 3b - Tachycardia, unspecified - 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 - Type 1 diabetes mellitus with hyperglycemia - Upper abdominal pain, unspecified - Chronic kidney disease, stage 3a 01/08/2022 15:43 [facility] Joshua LEÓN TYPE: Medical Surgical DIAGNOSES: - halfway (current) use of insulin - Idiopathic acute pancreatitis without necrosis or infection - Chronic kidney disease, stage 3b - Personal history of leukemia - 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
--- NOTE | 2022-03-20 18:40 | CONS ---
[facility] [address], [place] [address] Signed DATE OF CONSULTATION: 03/19/2022 REQUESTING PHYSICIAN: Dr. Vasquez. PROBLEM: Left-sided colitis. HISTORY OF PRESENT ILLNESS: This 21-year-old [place] woman, who is accompanied by her mother and has been admitted to the intensive care unit. The patient was admitted to the hospital between March 16 and March 18, 2022, for pancreatitis based on elevated lipase. She has had pancreatitis in the past. She does retain her gallbladder, but there was no evidence of stones. She was evaluated and treated in [place] at that time. The patient was discharged on March 18, but within a few hours of returning began having left-sided abdominal pain. She therefore came to the emergency room, was evaluated by Dr. Casper by CT scan and found to have left-sided colitis. She was admitted for further evaluation and care under the direction of Dr. Vasquez. PAST MEDICAL HISTORY: Notable for type 1 diabetes since age 8, a recent hemoglobin A1c was 10.8. She does have chronic kidney disease stage 3, the creatinine running 1.8. She has hypertension and hyperlipidemia. 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 She recovered from that fully and has no ongoing concerns regarding leukemia. ALLERGIES: She has allergies to sulfa, lisinopril, vancomycin, amoxicillin, clindamycin, and morphine. CURRENT MEDICATIONS: Her medicines at home include amlodipine, Humalog insulin, Crestor, Pepcid, Tylenol, Zofran, oxycodone, and fluconazole. At present, her pain is entirely on the left side. REVIEW OF SYSTEMS: She denies any diarrhea or blood per rectum in recent times. She has had no hematemesis. PHYSICAL EXAMINATION: GENERAL: This is a pleasant 21-year-old woman, who looks likely stunted as regards Electronically Signed By: WENDI SUTHERLAND MD 03/20/22 1840 PATIENT NAME: MONTSE GUTIERREZ CONSULTATION DATE OF : 99 REPORT #: [id number] PHYSICIAN: WENDI SUTHERLAND MD PCP: [facility] REPORT IS CONFIDENTIAL AND NOT TO BE RELEASED WITHOUT AUTHORIZATION [facility] [address], [place] [address] Signed normal development, no doubt related to her prior chemotherapy regimen and so on. HEENT: She is hard of hearing in one ear. She has somewhat dry mucous membranes. Trachea is midline. CHEST: Clear. HEART: Regular. ABDOMEN: Nondistended. There is only mild tenderness on the left side. She has no ascites. EXTREMITIES: Showed no clubbing, cyanosis, or edema. LABORATORY STUDIES: Today showed a white count of 15.0, hematocrit 26.3, platelets 365,000. Chem profile at the time of admission showed a creatinine of 2.23, bilirubin of 0.5, alkaline phosphatase 164, albumin 3.4. Serology was negative for COVID. Urinalysis was essentially normal, except for urine protein of 100 mg/dL. She had a large amount of glucose. Tox screen was negative though oxycodone was positive. Chest x-ray and CT scan were reviewed showing concentric thickening of the descending colon on the left side, there is no evidence of free air. ASSESSMENT: The patient is postulated to have possible ischemic colitis; this may be possible. However, normally speaking, I would have expected at least some blood per rectum or other similar concurrent symptom. It is notable that she had recent hyperlipasemia and hospitalized for 2 days in [place] for presumptive pancreatitis. In most situations, such pancreatitis would be related to microlithiasis since gallbladder ultrasound was normal, however, she is known to have significant hyperlipidemia and although her recent lipid level was less than 1000 that may account for her recent pancreatitis. She seems not to have any clinical or chemical evidence of pancreatitis currently. I would recommend a bowel prep as tolerated tonight and consideration for colonoscopy tomorrow to better affirm the type of colitis noted on the CT scan. Ischemic colitis versus inflammatory bowel disease (for which she may be at increased risks) would be notably different as regards management approaches. The risks of bleeding, infection, and perforation were reviewed with the patient and her mother, who attends to her. They understand and wished to proceed. MD CHHAYA Deutsch/MODL Electronically Signed By: WENDI SUTHERLAND MD 03/20/22 1840 PATIENT NAME: MONTSE GUTIERREZ CONSULTATION DATE OF : 99 REPORT #: [id number] PHYSICIAN: WENDI SUTHERLAND MD PCP: [facility] REPORT IS CONFIDENTIAL AND NOT TO BE RELEASED WITHOUT AUTHORIZATION [facility] [address], [place] [address] Signed /[id number] cc: [facility] Dr. Tremayne Vasquez MD Copies: [facility] CISCO VASQUEZ MD ~ Electronically Signed By: WENDI SUTHERLAND MD 03/20/22 1840 PATIENT NAME: MONTSE GUTIERREZ CONSULTATION DATE OF : 99 REPORT #: [id number] PHYSICIAN: WENDI SUTHERLAND MD PCP: [facility] REPORT IS CONFIDENTIAL AND NOT TO BE RELEASED WITHOUT AUTHORIZATION
--- NOTE | 2022-03-20 18:40 | OR ---
[facility] [address], [place] [address] Signed DATE OF OPERATION: 03/20/2022 SURGEON: Wendi Sutherland MD PREOPERATIVE DIAGNOSES: 1. Left-sided colitis; anemia. 2. Long-standing type 1 diabetes and significant advanced peripheral vascular disease. POSTOPERATIVE DIAGNOSES: Inflammation and edema of left colon including sigmoid with scattered white plaques/aphthous lesions. PROCEDURE: Total colonoscopy to cecum with multiple biopsies. ANESTHESIA: Intravenous sedation, fentanyl 100 mcg and Versed 2 mg. INDICATION: This 21-year-old Ethiopian woman is admitted to the hospital by Dr. Vasquez on March 19, 2022 with a left-sided abdominal pain. She had recently been discharged from the hospital with presumed pancreatitis only two days before as manifested by significant hyperlipasemia. She is known to have elevated lipids. She has had no stones noted in the gallbladder and has not undergone cholecystectomy. A CT scan was performed under the direction of Dr. Casper showing left-sided colitis. She was also noted to have significant visceral atherosclerotic disease. She has underlying problems of type 1 diabetes with hemoglobin A1c of 10.8, kidney disease, stage IIIB, baseline creatinine 1.8, hypertension, hyperlipidemia, and severe hypertriglyceridemia and a distant history in childhood of leukemia treated with chemotherapy. She is noted to have anemia with a hemoglobin of only 6.4, and has undergone transfusion of 1 unit of blood today. Colonoscopy has been recommended to better define the type of colitis noted on the CT scan. The risks of bleeding, infection, and perforation have been reviewed with her, she understands and wished to proceed. FINDINGS: Her prep was adequate for the purpose at hand. Complete colonoscopy was undertaken to the cecum. She definitely had edema and inflammatory changes of the sigmoid and left colon, but this was not at all typical of ischemic colitis. She had scattered small white plaques variably described as aphthous lesions, but more likely plaque-like lesions. This may be medical field representative of Crohn disease, though it is uncertain. She did Electronically Signed By: WENDI SUTHERLAND MD 03/20/22 1840 PATIENT NAME: MONTSE GUTIERREZ OPERATIVE REPORT DATE OF : 99 REPORT #: [id number] PHYSICIAN: WENDI SUTHERLAND MD PCP: [facility] REPORT IS CONFIDENTIAL AND NOT TO BE RELEASED WITHOUT AUTHORIZATION [facility] [address] [place], [place] [address] Signed not have the numerous closely spaced plaques typical of pseudomembranous colitis. The rectum appeared to be spared of the plaques but did have mild inflammation. Biopsies were taken of the rectum, the cecum, the sigmoid and transverse colon. There was a small inflammatory polyp of the sigmoid, which was excised with hot snare technique. Unfortunately, that polyp specimen was lost. Good hemostasis was noted to the site of excision. PROCEDURE IN DETAIL: The patient was brought to the endoscopy suite and placed in lateral decubitus position and given intravenous sedation to the point of slurred speech and nystagmus with full cardiopulmonary monitoring. Digital rectal examination was essentially normal. An Olympus video colonoscope was passed in the rectum and manipulated throughout the colon. She was noted to have edematous changes and small plaque-like changes of the sigmoid and left colon. Aphthous type appearance was less dominant and plaque-like changes. They were not coalesced, they were not numerous, but they were definitely present in the sigmoid and left colon. Scope was advanced ultimately to the cecum. The right colon and cecum appeared reasonably normal. Biopsies were taken of the cecum and further withdrawal to the transverse colon to allow for biopsy there as well. Upon emerging the left colon, edematous changes were once again noted and small white plaque-like lesions also identified. A medical field representative of such lesion was excised and labeled as "aphthoid lesion, though in truth it was more plaque-like actually." Further withdrawal of scope showed similar findings on left colon and sigmoid. Additional biopsies were obtained. Biopsy was taken of the rectum, though it did not appear to be particularly involved. The scope was removed. The patient was taken to the recovery room in good condition. CONCLUDING DIAGNOSIS: Left-sided colitis is of uncertain etiology. This may represent Crohn's colitis. This did not have typical appearance of ischemic colitis by any means. The possibility of other considered including microscopic colitis, though more typically no significant findings are noted. I did not see anything to suggest malignancy. Not mentioned previously was hot snare polypectomy of a single inflammatory polyp of the sigmoid. This polyp was lost and unable to be retrieved despite efforts to do so. PLAN: We will discuss with Dr. Vasquez. It may be best to initiate mesalamine pending the pathology reports. We will additionally check C difficile titer and microbiology of stool on the possibility this represents an infectious etiology and less likely a pseudomembranous colitis etiology. Electronically Signed By: WENDI SUTHERLAND MD 03/20/22 1840 PATIENT NAME: MONTSE GUTIERREZ OPERATIVE REPORT DATE OF : 99 REPORT #: [id number] PHYSICIAN: WENDI SUTHERLAND MD PCP: [facility] REPORT IS CONFIDENTIAL AND NOT TO BE RELEASED WITHOUT AUTHORIZATION [address] [address] Signed MD CHHAYA Deutsch/MODL /[id number] cc: Cisco Vasquez MD [facility] Copies: CISCO VASQUEZ MD [facility] ~ Electronically Signed By: WENDI SUTHERLAND MD 03/20/22 1840 PATIENT NAME: MONTSE GUTIERREZ OPERATIVE REPORT DATE OF : 99 REPORT #: [id number] PHYSICIAN: WENDI SUTHERLAND MD PCP: [facility] REPORT IS CONFIDENTIAL AND NOT TO BE RELEASED WITHOUT AUTHORIZATION
[2022-03-22] MEDS ORDERED: METRONIDAZOLE250 MG PO (11:16)
[2022-03-22] MEDS ORDERED: FERROUS SULFAT325 M2 PO (11:16)
[2022-03-22] MEDS ORDERED: PEPCID20 MG PO (11:17)
[2022-03-22] MEDS ORDERED: DELZICOL400 M1 PO (11:18)
[2022-03-22] MEDS ORDERED: VITAMIN D21250 MCG PO (11:18)
--- NOTE | 2022-03-22 17:14 | PATH ---
[facility] [address] [place], [place] [address] Signed SPECIMEN(S): A CECUM BIOPSY SPECIMEN(S): B RIGHT COLON BIOPSY SPECIMEN(S): C LEFT COLON BIOPSY SPECIMEN(S): D LEFT COLON POLYP SPECIMEN(S): E SIGMOID BIOPSY SPECIMEN(S): F RECTAL BIOPSY SPECIMEN SOURCE: A. CECUM BIOPSY B. RIGHT COLON BIOPSY C. LEFT COLON BIOPSY D. LEFT COLON POLYP E. SIGMOID BIOPSY F. RECTAL BIOPSY CLINICAL HISTORY: Acute ischemic colitis. Postop Dx: Left sided colitis, aphthous lesion. FINAL PATHOLOGIC DIAGNOSIS: A. Colon, cecum, biopsy: - Active colitis. - Negative for granulomas, dysplasia, or malignancy. B. Colon, right, biopsy: - Focal minimal active colitis. - Negative for granulomas, dysplasia, or malignancy. C. Colon, left, biopsy: - Active colitis with mucosal ulceration and necrosis, see Comment. - Material morphologically consistent with kayexalate crystals present. - Negative for granulomas, dysplasia, or malignancy. D. Colon, left, polyp, polypectomy: - Active colitis with focal mucosal ulceration and pseudomembrane formation. - Negative for granulomas, dysplasia, or malignancy. E. Colon, sigmoid, biopsy: - Active colitis with mucosal necrosis, see Comment. - Material morphologically consistent with kayexalate crystals present. - Negative for granulomas, dysplasia, or malignancy. F. Rectum, biopsy: - Active colitis. - Negative for granulomas, dysplasia, or malignancy. COMMENT: PATIENT NAME: MONTSE GUTIERREZ PATHOLOGY DATE OF : 89 REPORT #: [id number] PHYSICIAN: LOGAN MONROE [facility] REPORT IS CONFIDENTIAL AND NOT TO BE RELEASED WITHOUT AUTHORIZATION [facility] [address] [place], [place] [address] Signed The histologic changes of the mucosa in the left and sigmoid colon biopsies (specimens C and E) are compatible with an ischemic pattern of injury. Pill material, consistent with kayexalate, are present adjacent to and within the ulcer. Kayexalate can cause an ischemic pattern of injury and may be the cause of injury or secondarily trapped within the ulcer. The differential diagnosis also includes infectious etiologies. NAL:cml:C2NR MICROSCOPIC EXAMINATION: Histologic sections of all submitted blocks are examined by light microscopy. These findings, together with the gross examination, support the pathologic diagnosis. GROSS DESCRIPTION: Six specimens are received in six containers, labeled "MB." A. The specimen, labeled "MB, cecum biopsy," is received in formalin and consists of two ulloa soft tissue fragments that measure 0.1-0.2 cm in greatest dimension. The specimen is entirely submitted in cassette (A1). B. The specimen, labeled "MB, right colon biopsy," is received in formalin and consists of four ulloa soft tissue fragments that measure 0.1-0.2 cm in greatest dimension. The specimen is entirely submitted in cassette (B1). C. The specimen, labeled "MB, left colon biopsy," is received in formalin and consists of three ulloa soft tissue fragments that measure 0.1-0.2 cm in greatest dimension. The specimen is entirely submitted in cassette (C1). D. The specimen, labeled "MB, random left colon biopsy," is received in formalin and consists of three ulloa soft tissue fragments that measure 0.2 cm in greatest dimension. The specimen is entirely submitted in cassette (D1). E. The specimen, labeled "MB, sigmoid colon biopsy," is received in formalin and consists of three ulloa soft tissue fragments that measure 0.1-0.2 cm in greatest dimension. The specimen is entirely submitted in cassette (E1). F. The specimen, labeled "MB, rectal biopsy," is received in formalin and consists of two ulloa soft tissue fragments that measure 0.2 cm in greatest dimension. The specimen is entirely submitted in cassette (F1). JS (under the direct supervision of a pathologist) PATIENT NAME: MONTSE GUTIERREZ PATHOLOGY DATE OF : [birth year] REPORT #: [id number] PHYSICIAN: LOGAN MONROE PCP: [facility] REPORT IS CONFIDENTIAL AND NOT TO BE RELEASED WITHOUT AUTHORIZATION [facility] [address] [place], [place] [address] Signed The Gross Description was prepared using a voice recognition system. The report was reviewed for accuracy; however, sound-alike word errors, addition and/or deletions may occur. If there is any question about this report, please contact Client Services. PERFORMING LABORATORY: The technical component was performed by [facility], [address] [place] [id number] (CLIA# [id number]). [facility], [address] [place] [address] [place] [address] (IA# [id number]). Diagnostician: Estefany Brannon MD Pathologist Electronically Signed 03/22/2022 Copies: ~ PATIENT NAME: MONTSE GUTIERREZ PATHOLOGY DATE OF : [birth year] REPORT #: [id number] PHYSICIAN: LOGAN MONROE PCP: [facility] REPORT IS CONFIDENTIAL AND NOT TO BE RELEASED WITHOUT AUTHORIZATION
[2022-05-23] MEDS ORDERED: PEPCID20 MG PO (01:17)
== END 2022-03-22 11:51 | disposition home or self-care (01) | DRG 386 ==
LOC: ED 06:54 → MS 10:01 → CCU 10:01 → MS 03-20 14:50
PROVIDERS: Surgery; ADMIT Internal Medicine; ATTEND Internal Medicine
PROC: 0DBH8ZX Excision of Cecum, Via Natural or Artificial Opening Endoscopic, Diagnostic (ICD-10-PCS; 2022-03-20)
PROC: 0DBN8ZX Excision of Sigmoid Colon, Via Natural or Artificial Opening Endoscopic, Diagnostic (ICD-10-PCS; 2022-03-20)
PROC: 0DBP8ZX Excision of Rectum, Via Natural or Artificial Opening Endoscopic, Diagnostic (ICD-10-PCS; 2022-03-20)
PROC: 0DBF8ZX Excision of Right Large Intestine, Via Natural or Artificial Opening Endoscopic, Diagnostic (ICD-10-PCS; 2022-03-20)
PROC: 0DBG8ZX Excision of Left Large Intestine, Via Natural or Artificial Opening Endoscopic, Diagnostic (ICD-10-PCS; 2022-03-20)
PROC: 30233N1 Transfusion of Nonautologous Red Blood Cells into Peripheral Vein, Percutaneous Approach (ICD-10-PCS; principal; 2022-03-20 10:00)
DX: K51.50 Left sided colitis without complications (principal); N17.9 Acute kidney failure, unspecified; I12.9 Hypertensive chronic kidney disease with stage 1 through stage 4 chronic kidney disease, or unspecified chronic kidney disease; E10.22 Type 1 diabetes mellitus with diabetic chronic kidney disease; E78.5 Hyperlipidemia, unspecified; Z20.822 Contact with and (suspected) exposure to COVID-19; N18.32 Chronic kidney disease, stage 3b; D63.1 Anemia in chronic kidney disease; E78.00 Pure hypercholesterolemia, unspecified; E55.9 Vitamin D deficiency, unspecified; H91.91 Unspecified hearing loss, right ear; Z97.4 Presence of external hearing-aid; Z86.14 Personal history of Methicillin resistant Staphylococcus aureus infection; Z88.0 Allergy status to penicillin; Z88.1 Allergy status to other antibiotic agents; Z88.2 Allergy status to sulfonamides; Z88.6 Allergy status to analgesic agent; Z79.4 Long term (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; Z79.891 Long term (current) use of opiate analgesic; Z79.899 Other long term (current) 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
CPT/HCPCS: 36415; 36430; 71045; 74176; 80048; 80053; 80061; 81001; 83605; 83690; 83735; 85025; 86850; 86900; 86901; 86922; 87040; 87177; 87493; 87502; 88305; 96361; 96374; 96375; 96376; 99153; 99285-25; A9270; C9113; C9803; G0500; J0696; J0780; J1170; J1200; J1650; J1815; J2250; J2405; J3010; J3475; J7030; J7121; P9016; U0003

== ENCOUNTER 2022-03-26 06:58 | Emergency (ER) | payer OTHER ==
[~2022-03-26] VITALS: Ht 149.9 cm; Wt 49.0 kg
[~2022-03-26 06:58] MED LIST changes: +DELZICOL400 M1 PO; +FERROUS SULFAT325 M2 PO; +METRONIDAZOLE250 MG PO; +VITAMIN D21250 MCG PO
--- OUTSIDE RECORDS SUMMARY | 2022-03-26 07:00 | XMS ---
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 Care History Medical/Surgical 09/24/2021 [facility] Contacted Gerri RUDDpaint mixer [id number] of recent ED visits. They will follow up with the patient. 02/05/2021 [facility] - W CALLED AND SPOKE WITH [employer] BUSINESS INTELLIGENCE DEVELOPER WALDEMAR- DISCUSSED RECENT ED VISITS- PRIMARY CARE PHYSICIAN REVIEWED PATIENT RECENT ED VISITS AND DID CONTACT PATIENT-THEY HAVE INSTRUCTED PATIENT TO CONTACT SURFACE ROOM SHOP OPTICIAN DR HAMMOND TO SCHEDULE AND EARLIER APT IF POSSIBLE. PATIENT HAS TO MAKE THE APT FOR FOLLOW UP THE CLINIC CAN\T\#39;T SCHEDULE THE APT FOR THE PATIENT. - PATIENT HAS AN APT 02/06/[address] CHRISTENSEN. 01/25/2021 [facility] VOIDING TRIAL SCHEDULED WITH DR CHRISTENSEN UROLOGIST 02/06/21 [place] [facility] ([facility] MO.) [facility] NOTE: Visits indicate total known visits. ED/UCC VISIT TRACKING (12 MO.) [facility]22 [facility] [place] [facility] COMPLAINT: - CHEST PAIN 03/19/2022 06:55 [facility] [place] TYPE: Emergency COMPLAINT: - ABD PAIN, VOMITING 03/16/2022 07:[address] [facility] [place] TYPE: Emergency COMPLAINT: - ABDOMINAL PAIN 03/12/2022 02:[address] [facility] [place] TYPE: Emergency COMPLAINT: - URINE PROBLEM DIAGNOSES: - Hyperlipidemia, unspecified - Allergy status to sulfonamides - Dysuria - Essential (primary) hypertension - Other snf (current) drug therapy - Allergy status to other antibiotic agents - Allergy status to narcotic agent - Allergy status to other drugs, medicaments and biological substances - Type 2 diabetes mellitus without complications - Candidiasis of vulva and vagina - Allergy status to penicillin - 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 frame tender (current) use of insulin 03/07/2022 00:[address] [facility] [facility] [place] TYPE: Emergency COMPLAINT: - ABD PAIN, VOMITING DIAGNOSES: - Nausea with vomiting, unspecified - Allergy status to other drugs, medicaments and biological substances - [facility]CI (current) use of insulin - Allergy status to other antibiotic agents - Type 2 diabetes mellitus without complications - Allergy status to narcotic agent - Hyperlipidemia, unspecified - Allergy status to sulfonamides - Essential (primary) hypertension - Other snf (current) drug therapy - Upper abdominal pain, unspecified 03/04/2022 15:28 [facility] [place] TYPE: Emergency COMPLAINT: - ABDOMINAL PAIN DIAGNOSES: - Allergy status to other drugs, medicaments and biological substances - Hyperlipidemia, unspecified - 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 frame tender (current) use of insulin - Allergy status to penicillin - Allergy status to narcotic agent - Allergy status to sulfonamides - Essential (primary) hypertension - Other snf (current) drug therapy - Contact with and [...] sulfonamides - Chronic kidney disease, unspecified - 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 frame tender (current) use of insulin - Type 2 [...] with diabetic chronic kidney disease - 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 frame tender (current) use of insulin - Unspecified abdominal pain - Hyperlipidemia, unspecified - Acute pancreatitis without necrosis or infection, unspecified - Urinary tract infection, site not specified - Allergy status to sulfonamides - Allergy status to other drugs, medicaments and biological substances - Other snf (current) drug therapy - Hypertensive chronic kidney [...] disease, or unspecified chronic kidney disease - [facility]CI (current) use of insulin - Allergy status to other antibiotic agents - Pain in left knee - Other termite inspector (current) drug therapy - Allergy status to penicillin - Allergy status to sulfonamides - Allergy status to other drugs, medicaments and biological substances - Contusion of left knee, initial encounter - Chronic kidney disease, unspecified - Hyperlipidemia, unspecified - Type 2 diabetes mellitus with diabetic chronic kidney disease - Type 2 diabetes mellitus without complications 01/26/2022 15:43 [facility] [place] TYPE: Emergency DIAGNOSES: - Upper abdominal pain, unspecified - Acute pancreatitis without necrosis or infection, unspecified - Tachycardia, unspecified - Abdominal Pain - Emesis 01/08/2022 15:43 [facility] [place] TYPE: Emergency DIAGNOSES: - Acute pancreatitis without necrosis or infection, unspecified - Abdominal Pain 12/23/2021 14:51 [facility] [place] TYPE: Emergency COMPLAINT: - ABD PAIN DIAGNOSES: - Allergy status to other antibiotic agents - Contact with and (suspected) exposure to COVID-19 - Hyperlipidemia, unspecified - Allergy status to narcotic agent - Type 2 diabetes mellitus without complications - [facility]CI (current) use of insulin - Unspecified abdominal pain - Allergy status to sulfonamides - Other snf (current) drug therapy - Allergy status to other drugs, medicaments and biological substances - Essential (primary) hypertension 12/04/2021 20:12 [facility] [place] TYPE: Emergency COMPLAINT: - EYE SWELLING DIAGNOSES: - Mixed hyperlipidemia - Allergy status to sulfonamides - Unspecified otitis externa, left ear - [facility]CI (current) use of insulin - Hordeolum externum [...] drugs, medicaments and biological substances - Other termite inspector (current) drug therapy 11/26/2021 22:29 [facility] [place] TYPE: Emergency COMPLAINT: - ABD SWELLING, URINE PROBLEM DIAGNOSES: - Type 2 diabetes mellitus without complications - Dysuria - Hyperlipidemia, unspecified - 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 frame tender (current) use of insulin - Essential (primary) hypertension - Allergy status to other drugs, medicaments and biological substances - Allergy status to narcotic agent - Allergy status to other antibiotic agents - Allergy status to sulfonamides - Other termite inspector (current) drug therapy 11/08/2021 00:36 [facility] [place] TYPE: Emergency COMPLAINT: - HIGH BP, DIZZY DIAGNOSES: - Allergy status to narcotic agent - Allergy status to penicillin - Hypertensive chronic kidney disease with stage 1 through stage 4 chronic kidney disease, or unspecified chronic kidney disease - Allergy status to other drugs, medicaments and biological substances - [facility] (current) use of oral hypoglycemic drugs - Type 2 diabetes mellitus with ketoacidosis without coma - Other termite inspector (current) drug therapy [...] sulfonamides - Allergy status to penicillin - [facility]CI (current) use of insulin - Other snf (current) drug therapy - Essential (primary) hypertension [...] tract infection, site not specified - Other termite inspector (current) drug therapy - Hyperlipidemia, unspecified - 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 frame tender (current) use of insulin - Left upper [...] status to sulfonamides - Adverse effect of fokvhedqtvv-bkzcswjour-vflnit inhibitors, initial encounter - Chronic kidney disease, unspecified - Other termite inspector (current) drug therapy - Type 2 diabetes mellitus with diabetic chronic kidney disease - FCI (current) use of insulin - Allergy status to other antibiotic agents - Allergy status to penicillin 09/09/2021 20:54 [facility] [place] TYPE: Emergency COMPLAINT: - CHEST PAIN DIAGNOSES: - Allergy status to other antibiotic agents - Type 2 diabetes mellitus without complications - FCI (current) use of insulin - Other chest pain - Hyperlipidemia, unspecified - Other snf (current) drug therapy - Allergy status to [...] - Allergy status to sulfonamides - Other snf (current) drug therapy - Unspecified abdominal pain Plus 6 More Visits INPATIENT VISIT TRACKING (12 MO.) 03/19/2022 10:01 [facility] [place] TYPE: Medical Surgical COMPLAINT: - ACUTE ISCHEMIC COLITIS DIAGNOSES: - 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 frame tender (current) use of opiate analgesic - Vitamin D deficiency, unspecified - Left sided colitis without complications - Unspecified hearing loss, right ear - Type 1 diabetes mellitus with diabetic chronic kidney disease - Hyperlipidemia, unspecified - Allergy status to sulfonamides - Acute kidney failure, unspecified - Allergy status to sulfonamides - Acute kidney failure, unspecified - 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 frame tender (current) use of insulin - Acute (reversible) ischemia of large intestine, extent unspecified - Contact with and (suspected) exposure to COVID-19 - Unspecified hearing loss, right ear - Allergy status to penicillin - Type 1 diabetes mellitus with diabetic chronic kidney disease - Chronic kidney disease, stage 3b - Chronic kidney disease, stage 3b - Personal history of Methicillin resistant Staphylococcus aureus infection - Allergy status to analgesic agent - Personal history of Methicillin resistant Staphylococcus aureus infection - Contact with and (suspected) exposure to COVID-19 - Anemia in chronic kidney disease - Pure hypercholesterolemia, unspecified - Left sided colitis without complications - Allergy status to other antibiotic agents - Allergy status to penicillin - Hyperlipidemia, unspecified - Anemia in chronic kidney disease - Other snf (current) drug therapy - Hypertensive chronic kidney disease with stage 1 through stage 4 chronic kidney disease, or unspecified chronic kidney disease - Presence of external hearing-aid - Presence of external hearing-aid - Allergy status to analgesic agent - Vitamin D deficiency, unspecified - Pure hypercholesterolemia, unspecified - 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 frame tender (current) use of opiate analgesic - Hypertensive chronic kidney disease with stage 1 through stage 4 chronic kidney disease, or unspecified chronic kidney disease - Allergy status to other antibiotic agents - FCI (current) use of insulin - Other snf (current) drug therapy 03/16/2022 10:[address] [facility] [place] TYPE: Medical Surgical COMPLAINT: - ACUTE PANCREATITIS DIAGNOSES: - Acquired absence of other specified parts of digestive tract - Pure hyperglyceridemia - Idiopathic acute pancreatitis without necrosis or infection - Hypomagnesemia - Acquired absence of other specified parts of digestive tract - Other termite inspector (current) drug therapy - Hyperlipidemia, unspecified - Contact with and (suspected) exposure to COVID-19 - Allergy status to other antibiotic agents - Hyperlipidemia, unspecified - Anemia in chronic kidney disease - Unspecified hearing loss, right ear - Chronic kidney disease, stage 3b - Anemia in chronic kidney disease - Unspecified hearing loss, right ear - Hypertensive chronic kidney disease with stage 1 through stage 4 chronic kidney disease, or unspecified chronic kidney disease - Allergy status to analgesic agent - Other termite inspector (current) drug therapy - Allergy status to penicillin - Hypomagnesemia - Pure hyperglyceridemia - Acute kidney failure, unspecified - Chronic kidney disease, stage 3b - Type 1 diabetes mellitus with diabetic chronic kidney disease - Allergy status to other drugs, medicaments and biological substances - Allergy status to other drugs, medicaments and biological substances - Elevation of levels of liver transaminase levels - Hypertensive chronic kidney disease with stage 1 through stage 4 chronic kidney disease, or unspecified chronic kidney disease - Personal history of Methicillin resistant Staphylococcus aureus infection - Other specified postprocedural states - Elevation of levels of liver transaminase levels - Personal history of Methicillin resistant Staphylococcus aureus infection - Allergy status to penicillin - Other specified postprocedural states - Allergy status to analgesic agent - Allergy status to sulfonamides - Contact with and (suspected) exposure to COVID-19 - Acute kidney failure, unspecified - Allergy status to sulfonamides - Allergy status to other antibiotic agents - Type 1 diabetes mellitus with diabetic chronic kidney disease 01/26/2022 15:43 [facility] [place] TYPE: Surgical Services DIAGNOSES: - Acute pancreatitis without necrosis or infection, unspecified - FCI (current) use of insulin - Chronic kidney disease, stage 3b - Tachycardia, unspecified - 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 - Type 1 diabetes mellitus with hyperglycemia - Upper abdominal pain, unspecified - Chronic kidney disease, stage 3a 01/08/2022 15:43 [facility] DIAGNOSES: - [facility]CI (current) use of insulin - Idiopathic acute pancreatitis without necrosis or infection - Chronic kidney disease, stage 3b - Personal history of leukemia - 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 - Acute pancreatitis without necrosis or infection, unspecified [email or web address]
--- NOTE | 2022-03-26 12:57 | EKG ---
[facility] [address] [facility] [place] [address] Signed Normal sinus rhythm Normal ECG When compared with ECG of 08-NOV-2021 01:01, No significant change was found Confirmed by CISCO VASQUEZ MD ([id number]) on 03/26/2022 12:56:53 PM Electronically Signed By: CISCO VASQUEZ MD 03/26/22 [id number] PATIENT NAME: MONTSE GUTIERREZRAJ Electrocardiogram DATE OF : [birth year] PHYSICIAN: CISCO VASQUEZ MD REPORT #: [id number] REPORT IS CONFIDENTIAL AND NOT TO BE RELEASED WITHOUT AUTHORIZATION
== END 2022-03-26 09:32 | disposition home or self-care (01) ==
LOC: ED 06:58
DX: R07.9 Chest pain, unspecified (principal); Z20.822 Contact with and (suspected) exposure to COVID-19; E11.22 Type 2 diabetes mellitus with diabetic chronic kidney disease; N18.32 Chronic kidney disease, stage 3b; E78.5 Hyperlipidemia, unspecified; I12.9 Hypertensive chronic kidney disease with stage 1 through stage 4 chronic kidney disease, or unspecified chronic kidney disease; Z88.2 Allergy status to sulfonamides; Z88.8 Allergy status to other drugs, medicaments and biological substances; Z88.1 Allergy status to other antibiotic agents; Z88.0 Allergy status to penicillin; Z88.5 Allergy status to narcotic agent; Z79.899 Other long term (current) 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; Z79.4 Long term (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
CPT/HCPCS: 36415; 71045; 80053; 84484; 85025; 85379; 87502; 93005; 93010; 96374; 99285-25; C9803; J1885; U0003

== ENCOUNTER 2022-04-21 07:10 | Emergency (ER) | payer OTHER ==
[~2022-04-21] VITALS: Ht 149.9 cm; Wt 46.1 kg
--- OUTSIDE RECORDS SUMMARY | 2022-04-21 07:12 | XMS ---
PreManage Notification: MONTSE GUTIERREZ [employer] Events No recent Security Events currently on file CRITERIA MET - [facility] - 2 Visits in 30 Days - [facility] - Has Care Guidelines - 6 ED Visits in 6 Months CARE PROVIDERS SAUL THORPE Physician Ticket Scheduler 03/19/2019-[facility] PHONE: Unknown [facility] 01/22/2021-[facility] PHONE: [phone] Jef has no Care Guidelines for this patient. Care History Medical/Surgical 09/24/2021 [facility] Contacted Gerri RUDDcontent [id number] of recent ED visits. They will follow up with the patient. 02/05/2021 [facility] - W CALLED AND SPOKE WITH HYDRAULIC REPAIRER WALDEMAR- DISCUSSED RECENT ED VISITS- PRIMARY CARE PHYSICIAN REVIEWED PATIENT RECENT ED VISITS AND DID CONTACT PATIENT-THEY HAVE INSTRUCTED PATIENT TO CONTACT GRADE TEACHER DR HAMMNOD TO SCHEDULE AND EARLIER APT IF POSSIBLE. PATIENT HAS TO MAKE THE APT FOR FOLLOW UP THE CLINIC CAN\T\#39;T SCHEDULE THE APT FOR THE PATIENT. - PATIENT HAS AN APT 02/06/[address] CHRISTENSEN. 01/25/2021 [facility] VOIDING TRIAL SCHEDULED WITH DR CHRISTENSEN UROLOGIST 02/06/21 [place] VISIT COUNT (12 MO.) 5 [place] [facility] T[facility] NOTE: Visits indicate total known visits. ED/UCC VISIT TRACKING (12 MO.) 04/21/2022 07:11 [facility] COMPLAINT: - ABD PAIN 03/26/2022 06:58 [facility] [place] TYPE: Emergency COMPLAINT: - CHEST PAIN DIAGNOSES: - Other jail (current) drug therapy - Allergy status to penicillin - Chest pain, unspecified - Hyperlipidemia, unspecified - Allergy status to other drugs, medicaments and biological substances - Allergy status to sulfonamides - Type 2 diabetes mellitus with diabetic chronic kidney disease - Chronic kidney disease, stage 3b - snf (current) use of insulin - Hypertensive chronic kidney disease with stage 1 through stage 4 chronic kidney disease, or unspecified chronic kidney disease - Allergy status to other antibiotic agents - Contact with and (suspected) exposure to COVID-19 - Allergy status to narcotic agent 03/19/2022 06:55 [facility] [place] TYPE: Emergency COMPLAINT: - ABD PAIN, VOMITING 03/16/2022 07:38 [facility] [place] TYPE: Emergency COMPLAINT: - ABDOMINAL PAIN 03/12/2022 02:19 [facility] [place] TYPE: Emergency COMPLAINT: - URINE PROBLEM DIAGNOSES: - Hyperlipidemia, unspecified - Allergy status to sulfonamides - Dysuria - Essential (primary) hypertension - Other bed bug exterminator (current) drug therapy - Allergy status to other antibiotic agents - Allergy status to narcotic agent - Allergy status to other drugs, medicaments and biological substances - Type 2 diabetes mellitus without complications - Candidiasis of vulva and vagina - Allergy status to penicillin - supervisor 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s (current) use of insulin 03/07/2022 00:39 [facility] [place] TYPE: Emergency COMPLAINT: - ABD PAIN, VOMITING DIAGNOSES: - Nausea with vomiting, unspecified - Allergy status to other drugs, medicaments and biological substances - snf (current) use of insulin - Allergy status to other antibiotic agents - Type 2 diabetes mellitus without complications - Allergy status to narcotic agent - Hyperlipidemia, unspecified - Allergy status to sulfonamides - Essential (primary) hypertension - Other jail (current) drug therapy - Upper abdominal pain, unspecified 03/04/2022 15:28 [facility] TYPE: Emergency COMPLAINT: - ABDOMINAL PAIN DIAGNOSES: - Allergy status to other drugs, medicaments and biological substances - Hyperlipidemia, unspecified - supervisor 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s (current) use of insulin - Allergy status to penicillin - Allergy status to narcotic agent - Allergy status to sulfonamides - Essential (primary) hypertension - Other jail (current) drug therapy - Contact with and [...] sulfonamides - Chronic kidney disease, unspecified - snf (current) use of insulin - Type 2 [...] mellitus with diabetic chronic kidney disease - supervisor 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s (current) use of insulin - Unspecified abdominal pain - Hyperlipidemia, unspecified - Acute pancreatitis without necrosis or infection, unspecified - Urinary tract infection, site not specified - Allergy status to sulfonamides - Allergy status to other drugs, medicaments and biological substances - Other jail (current) drug therapy - Hypertensive chronic kidney [...] disease, or unspecified chronic kidney disease - snf (current) use of insulin - Allergy status to other antibiotic agents - Pain in left knee - Other jail (current) drug therapy - Allergy status to penicillin - Allergy status to sulfonamides - Allergy status to other drugs, medicaments and biological substances - Contusion of left knee, initial encounter - Chronic kidney disease, unspecified - Hyperlipidemia, unspecified - Type 2 diabetes mellitus with diabetic chronic kidney disease - Type 2 diabetes mellitus without complications 01/26/2022 15:43 [facility] TYPE: Emergency DIAGNOSES: - Upper abdominal pain, unspecified - Acute pancreatitis without necrosis or infection, unspecified - Tachycardia, unspecified - Abdominal Pain - Emesis [facility]2022 15[facility] DIAGNOSES: - Acute pancreatitis without necrosis or infection, unspecified - Abdominal Pain 12/23/2021 14:51 [facility] [place] TYPE: Emergency COMPLAINT: - ABD PAIN DIAGNOSES: - Allergy status to other antibiotic agents - Contact with and (suspected) exposure to COVID-19 - Hyperlipidemia, unspecified - Allergy status to narcotic agent - Type 2 diabetes mellitus without complications - snf (current) use of insulin - Unspecified abdominal pain - Allergy status to sulfonamides - Other bed bug exterminator (current) drug therapy - Allergy status to other drugs, medicaments and biological substances - Essential (primary) hypertension 12/04/2021 20:12 [facility] TYPE: Emergency COMPLAINT: - EYE SWELLING DIAGNOSES: - Mixed hyperlipidemia - Allergy status to sulfonamides - Unspecified otitis externa, left ear - snf (current) use of insulin - Hordeolum externum [...] drugs, medicaments and biological substances - Other bed bug exterminator (current) drug therapy 11/26/2021 22:29 [facility] TYPE: Emergency COMPLAINT: - ABD SWELLING, URINE PROBLEM DIAGNOSES: - Type 2 diabetes mellitus without complications - Dysuria - Hyperlipidemia, unspecified - supervisor 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s (current) use of insulin - Essential (primary) hypertension - Allergy status to other drugs, medicaments and biological substances - Allergy status to narcotic agent - Allergy status to other antibiotic agents - Allergy status to sulfonamides - Other jail (current) drug therapy 11/08/2021 00:36 [facility] TYPE: Emergency COMPLAINT: - HIGH BP, DIZZY DIAGNOSES: - Allergy status to narcotic agent - Allergy status to penicillin - Hypertensive chronic kidney disease with stage 1 through stage 4 chronic kidney disease, or unspecified chronic kidney disease - Allergy status to other drugs, medicaments and biological substances - snf (current) use of oral hypoglycemic drugs - Type 2 diabetes mellitus with ketoacidosis without coma - Other jail (current) drug therapy - Allergy status to [...] sulfonamides - Allergy status to penicillin - snf (current) use of insulin - Other bed bug exterminator (current) drug therapy - Essential (primary) hypertension [...] tract infection, site not specified - Other bed bug exterminator (current) drug therapy - Hyperlipidemia, unspecified - snf (current) use of insulin - Left upper [...] status to sulfonamides - Adverse effect of mvdepvnpatg-eyknjcnchm-ovfrfu inhibitors, initial encounter - Chronic kidney disease, unspecified - Other bed bug exterminator (current) drug therapy - Type 2 diabetes mellitus with diabetic chronic kidney disease - supervisor 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s (current) use of insulin - Allergy status to other antibiotic agents - Allergy status to penicillin 09/09/2021 20:54 [facility] TYPE: Emergency COMPLAINT: - CHEST PAIN DIAGNOSES: - Allergy status to other antibiotic agents - Type 2 diabetes mellitus without complications - supervisor 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s (current) use of insulin - Other chest pain - Hyperlipidemia, unspecified - Other jail (current) drug therapy - Allergy status to sulfonamides - Allergy status to penicillin - Allergy status to narcotic agent Plus 7 More Visits INPATIENT VISIT TRACKING (12 MO.) 03/19/2022 10:01 [facility] TYPE: Medical Surgical COMPLAINT: - ACUTE ISCHEMIC COLITIS DIAGNOSES: - snf (current) use of opiate analgesic - Vitamin D deficiency, unspecified - Left sided colitis without complications - Unspecified hearing loss, right ear - Type 1 diabetes mellitus with diabetic chronic kidney disease - Hyperlipidemia, unspecified - Allergy status to sulfonamides - Acute kidney failure, unspecified - Allergy status to sulfonamides - Acute kidney failure, unspecified - snf (current) use of insulin - Acute (reversible) [...] Anemia in chronic kidney disease - Other bed bug exterminator (current) drug therapy - Hypertensive chronic kidney disease with stage 1 through stage 4 chronic kidney disease, or unspecified chronic kidney disease - Presence of external hearing-aid - Presence of external hearing-aid - Allergy status to analgesic agent - Vitamin D deficiency, unspecified - Pure hypercholesterolemia, unspecified - supervisor 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s (current) use of opiate analgesic - Hypertensive chronic kidney disease with stage 1 through stage 4 chronic kidney disease, or unspecified chronic kidney disease - Allergy status to other antibiotic agents - supervisor 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s (current) use of insulin - Other jail (current) drug therapy 03/16/2022 10:[address] [facility] [place] TYPE: Medical Surgical COMPLAINT: - ACUTE PANCREATITIS DIAGNOSES: - Acquired absence of other specified parts of digestive tract - Pure hyperglyceridemia - Idiopathic acute pancreatitis without necrosis or infection - Hypomagnesemia - Acquired absence of other specified parts of digestive tract - Other jail (current) drug therapy - Hyperlipidemia, unspecified - [...] Allergy status to analgesic agent - Other jail (current) drug therapy - Allergy status to [...] with diabetic chronic kidney disease 01/26/2022 15:43 [facility] DIAGNOSES: - Acute pancreatitis without necrosis or infection, unspecified - supervisor 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s (current) use of insulin - Chronic kidney disease, stage 3b - Tachycardia, unspecified - 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
[2022-04-21] MEDS ORDERED: HYDROCODON-ACE1 EA10 PO (10:21)
== END 2022-04-21 10:36 | disposition home or self-care (01) ==
LOC: ED 07:10
DX: R10.13 Epigastric pain (principal); E10.22 Type 1 diabetes mellitus with diabetic chronic kidney disease; E78.5 Hyperlipidemia, unspecified; I12.9 Hypertensive chronic kidney disease with stage 1 through stage 4 chronic kidney disease, or unspecified chronic kidney disease; E78.00 Pure hypercholesterolemia, unspecified; Z88.2 Allergy status to sulfonamides; Z88.8 Allergy status to other drugs, medicaments and biological substances; Z88.1 Allergy status to other antibiotic agents; Z88.0 Allergy status to penicillin; Z88.5 Allergy status to narcotic agent; Z79.899 Other long term (current) 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; Z79.4 Long term (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
CPT/HCPCS: 36415; 80053; 81001; 82010; 82803; 83690; 84703; 85025; 96361; 96374; 99284-25; J2405; J7030

== ENCOUNTER 2022-05-26 18:09 | Emergency (ER) | payer OTHER ==
[~2022-05-26] VITALS: Ht 149.9 cm; Wt 41.7 kg
--- OUTSIDE RECORDS SUMMARY | 2022-05-26 18:12 | XMS ---
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 Care History Medical/Surgical 09/24/2021 [facility] Contacted Gerri RUDDjboss developerAclefxn-Ksiwaw-fpsuehop of recent ED visits. They will follow up with the patient. 02/05/2021 [facility] - W CALLED AND SPOKE WITH REGISTERED PHLEBOTOMIST PART TIME WALDEMAR- DISCUSSED RECENT ED VISITS- PRIMARY CARE PHYSICIAN REVIEWED PATIENT RECENT ED VISITS AND DID CONTACT PATIENT-THEY HAVE INSTRUCTED PATIENT TO CONTACT PIZZA MAKER DR HAMMOND TO SCHEDULE AND EARLIER APT IF POSSIBLE. PATIENT HAS TO MAKE THE APT FOR FOLLOW UP THE CLINIC CAN\T\#39;T SCHEDULE THE APT FOR THE PATIENT. - PATIENT HAS AN APT 02/06/[address] CHRISTENSEN. 01/25/2021 [facility] VOIDING TRIAL SCHEDULED WITH DR CHRISTENSEN UROLOGIST 02/06/21 [facility] VISIT COUNT (12 MO.) [facility] NOTE: Visits indicate total known visits. ED/UCC VISIT TRACKING (12 MO.) 05/26[facility]2022 18:[facility] COMPLAINT: - RECTAL BLEEDING 05/22/2022 22:48 [facility] [place] TYPE: Emergency COMPLAINT: - CHEST PAIN DIAGNOSES: - Hyperlipidemia, unspecified - Allergy status to narcotic agent - Allergy status to other drugs, medicaments and biological substances - Other penitentiary (current) drug therapy - penitentiary (current) use of insulin - Other chest pain - Type 2 diabetes mellitus without complications - Allergy status to other antibiotic agents - Chest pain, unspecified - Allergy status to sulfonamides - Essential (primary) hypertension 04/21/2022 07:11 [facility] [place] TYPE: Emergency COMPLAINT: - ABD PAIN DIAGNOSES: - Allergy status to sulfonamides - Allergy status to penicillin - Epigastric pain - Allergy status to narcotic agent - Hyperlipidemia, unspecified - Hypertensive chronic kidney disease with stage 1 through stage 4 chronic kidney disease, or unspecified chronic kidney disease - Other penitentiary (current) drug therapy - Pure hypercholesterolemia, unspecified - Allergy status to other antibiotic agents - Type 1 diabetes mellitus with diabetic chronic kidney disease - penitentiary (current) use of insulin - Allergy status to other drugs, medicaments and biological substances 03/26/2022 06:58 [facility] [place] TYPE: Emergency COMPLAINT: - CHEST PAIN DIAGNOSES: - Allergy status to penicillin - penitentiary (current) use of insulin - Type 2 diabetes mellitus with diabetic chronic kidney disease - Allergy status to other drugs, medicaments and biological substances - Contact with and (suspected) exposure to COVID-19 - Chest pain, unspecified - Hypertensive chronic kidney disease with stage 1 through stage 4 chronic kidney disease, or unspecified chronic kidney disease - Other penitentiary (current) drug therapy - Chronic kidney disease, stage 3b - Allergy status to sulfonamides - Allergy status to narcotic agent - Hyperlipidemia, unspecified - Allergy status to other antibiotic agents 03/19/2022 06:55 [facility] TYPE: Emergency COMPLAINT: - ABD PAIN, VOMITING 03/16/2022 07:38 [facility] TYPE: Emergency COMPLAINT: - ABDOMINAL PAIN 03/12/2022 02:19 [facility] TYPE: Emergency COMPLAINT: - URINE PROBLEM DIAGNOSES: - Allergy status to sulfonamides - Type 2 diabetes mellitus without complications - Allergy status to narcotic agent - 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 regional forester (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) 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 - penitentiary (current) use of insulin - Dysuria - Candidiasis of vulva and vagina - Hyperlipidemia, unspecified - Allergy status to other drugs, medicaments and biological substances - Allergy status to other antibiotic agents - Essential (primary) hypertension - Allergy status to penicillin 03/07/2022 00:39 [facility] TYPE: Emergency COMPLAINT: - ABD PAIN, VOMITING DIAGNOSES: - Allergy status to other drugs, medicaments and biological substances - Essential (primary) hypertension - Hyperlipidemia, unspecified - Type 2 diabetes mellitus without complications - penitentiary (current) use of insulin - Other regional forester (current) drug therapy - Nausea with vomiting, unspecified - Allergy status to sulfonamides - Allergy status to narcotic agent - Allergy status to other antibiotic agents - Upper abdominal pain, unspecified 03/04/2022 15:28 [facility] TYPE: Emergency COMPLAINT: - ABDOMINAL PAIN DIAGNOSES: - Hyperlipidemia, unspecified - Contact with and (suspected) exposure to COVID-19 - Essential (primary) hypertension - Allergy status to narcotic agent - Nausea with vomiting, unspecified - penitentiary (current) use of insulin - Type 1 diabetes mellitus with diabetic chronic kidney disease - Allergy status to other drugs, medicaments and biological substances - Other penitentiary (current) drug therapy - Allergy status to sulfonamides - Urinary tract infection, site not specified - Allergy status to penicillin - Upper abdominal pain, unspecified 02/17/2022 03:45 [facility] [place] TYPE: Emergency COMPLAINT: - LOW BLOOD SUGARS DIAGNOSES: - Adverse effect of insulin and oral hypoglycemic [antidiabetic] drugs, initial encounter - Type 2 diabetes mellitus with hypoglycemia without coma - Chronic kidney disease, unspecified - Hypoglycemia, unspecified - Allergy status to other drugs, medicaments and biological substances - Allergy status to penicillin - Hypertensive chronic kidney disease with stage 1 through stage 4 chronic kidney disease, or unspecified chronic kidney disease - Allergy status to narcotic agent - penitentiary (current) use of insulin - Allergy status to sulfonamides - Allergy status to other antibiotic agents - Type 2 diabetes mellitus with diabetic chronic kidney disease 02/13/2022 20:21 [facility] TYPE: Emergency COMPLAINT: - ABD PAIN DIAGNOSES: - Type 1 diabetes mellitus with diabetic chronic kidney disease - Allergy status to other drugs, medicaments and biological substances - Urinary tract infection, site not specified - Hyperlipidemia, unspecified - Allergy status to other antibiotic agents - 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 - Other regional forester (current) drug therapy - Chronic kidney disease, unspecified - Allergy status to sulfonamides - Acute pancreatitis without necrosis or infection, unspecified - Allergy status to narcotic agent - Unspecified abdominal pain - Hypertensive chronic kidney disease with stage 1 through stage 4 chronic kidney disease, or unspecified chronic kidney disease 02/07/2022 23:34 [facility] TYPE: Emergency COMPLAINT: - LEFT KNEE INJ DIAGNOSES: - Fall on same level from slipping, tripping and stumbling without subsequent striking against object, initial encounter - Allergy status to sulfonamides - Other penitentiary (current) drug therapy - Type 2 diabetes mellitus with diabetic chronic kidney disease - Allergy status to other antibiotic agents - Chronic kidney disease, unspecified - Hypertensive chronic kidney disease with stage 1 through stage 4 chronic kidney disease, or unspecified chronic kidney disease - Allergy status to other drugs, medicaments and biological substances - Allergy status to narcotic agent - Allergy status to penicillin - Type 2 diabetes mellitus without complications - Pain in left knee - Hyperlipidemia, unspecified - penitentiary (current) use of insulin - Contusion of left knee, initial encounter [facility] 15[facility] DIAGNOSES: - Acute pancreatitis without necrosis or infection, unspecified - Emesis - Tachycardia, unspecified - Upper abdominal pain, unspecified - Abdominal Pain 01/08/2022 15:43 [facility] DIAGNOSES: - Abdominal Pain - Acute pancreatitis without necrosis or infection, unspecified 12/23/2021 14:51 [facility] [place] TYPE: Emergency COMPLAINT: - ABD PAIN DIAGNOSES: - Contact with and (suspected) exposure to COVID-19 - Other penitentiary (current) drug therapy - Unspecified abdominal pain - Type 2 diabetes mellitus without complications - Hyperlipidemia, unspecified - Allergy status to other drugs, medicaments and biological substances - Allergy status to other antibiotic agents - Allergy status to sulfonamides - penitentiary (current) use of insulin - Allergy status to narcotic agent - Essential (primary) hypertension 12/04/2021 20:12 [facility] [place] TYPE: Emergency COMPLAINT: - EYE SWELLING DIAGNOSES: - Allergy status to sulfonamides - Hypertensive chronic kidney disease with stage 1 through stage 4 chronic kidney disease, or unspecified chronic kidney disease - Allergy status to penicillin - Hordeolum externum left lower eyelid - Allergy status to other drugs, medicaments and biological substances - Unspecified otitis externa, left ear - Type 2 diabetes mellitus with diabetic chronic kidney disease - Mixed hyperlipidemia - Allergy status to other antibiotic agents - Chronic kidney disease, unspecified - Other regional forester (current) drug therapy - penitentiary (current) use of insulin - Other specified disorders of eye and adnexa 11/26/2021 22:29 [facility] TYPE: Emergency COMPLAINT: - ABD SWELLING, URINE PROBLEM DIAGNOSES: - Dysuria - Allergy status to sulfonamides - Allergy status to narcotic agent - Essential (primary) hypertension - Hyperlipidemia, unspecified - Other regional forester (current) drug therapy - Type 2 diabetes mellitus without complications - Allergy status to other antibiotic agents - Allergy status to other drugs, medicaments and biological substances - 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 11/08/2021 00:36 [facility] TYPE: Emergency COMPLAINT: - HIGH BP, DIZZY DIAGNOSES: - Allergy status to penicillin - Chronic kidney disease, unspecified - Dyspnea, unspecified - Other regional forester (current) drug therapy - Allergy status to other antibiotic agents - penitentiary (current) use of oral hypoglycemic drugs - Pure hypercholesterolemia, unspecified - Hypertensive chronic kidney disease with stage 1 through stage 4 chronic kidney disease, or unspecified chronic kidney disease - Other chest pain - Allergy status to narcotic agent - Allergy status to sulfonamides - Dizziness and giddiness - Type 2 diabetes mellitus with ketoacidosis without coma - Essential (primary) hypertension - Allergy status to other drugs, medicaments and biological substances - Type 2 diabetes mellitus with diabetic chronic kidney disease 11/02/2021 23:59 [facility] TYPE: Emergency COMPLAINT: - CHEST PAIN DIAGNOSES: - Allergy status to sulfonamides - Other chest pain - Hyperlipidemia, unspecified - Other regional forester (current) drug therapy - Allergy status to penicillin - Allergy status to other drugs, medicaments and biological substances - Allergy status to narcotic agent - Type 2 diabetes mellitus without complications - Essential (primary) hypertension - penitentiary (current) use of insulin - Allergy status to other antibiotic agents 10/24/2021 21:04 [facility] TYPE: Emergency COMPLAINT: - ABDOMINAL PAIN DIAGNOSES: - Type 2 diabetes mellitus with diabetic chronic kidney disease - Left upper quadrant pain - Hyperlipidemia, unspecified - Urinary tract infection, site not specified - Unspecified abdominal pain - Allergy status to penicillin - Allergy status to sulfonamides - Allergy status to narcotic agent - penitentiary (current) use of insulin - Other regional forester (current) drug therapy - Allergy status to other antibiotic agents - Chronic kidney disease, unspecified Plus 7 More Visits INPATIENT VISIT TRACKING (12 MO.) 03/19/2022 10:01 [facility] TYPE: Medical Surgical COMPLAINT: - ACUTE ISCHEMIC COLITIS DIAGNOSES: - Anemia in chronic kidney disease - Allergy status to other antibiotic agents - Unspecified hearing loss, right ear - Other penitentiary (current) drug therapy - Type 1 diabetes mellitus with diabetic chronic kidney disease - Personal history of Methicillin resistant Staphylococcus aureus infection - real estate portfolio manager (current) use of opiate analgesic - real estate portfolio manager (current) use of opiate analgesic - Hyperlipidemia, unspecified - Left sided colitis without complications - Personal history of Methicillin resistant Staphylococcus aureus infection - Vitamin D deficiency, unspecified - Acute kidney failure, unspecified - Allergy status to other antibiotic agents - Acute (reversible) ischemia of large intestine, extent unspecified - Chronic kidney disease, stage 3b - Presence of external hearing-aid - Acute kidney failure, unspecified - Pure hypercholesterolemia, unspecified - 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 - Allergy status to penicillin - Hypertensive chronic kidney disease with stage 1 through stage 4 chronic kidney disease, or unspecified chronic kidney disease - Hyperlipidemia, unspecified - Presence of external hearing-aid - Hypertensive chronic kidney disease with stage 1 through stage 4 chronic kidney disease, or unspecified chronic kidney disease - Contact with and (suspected) exposure to COVID-19 - Anemia in chronic kidney disease - Unspecified hearing loss, right ear - Allergy status to analgesic agent - Pure hypercholesterolemia, unspecified - penitentiary (current) use of insulin - Allergy status to penicillin - Vitamin D deficiency, unspecified - Chronic kidney disease, stage 3b - Allergy status to analgesic agent - Allergy status to sulfonamides - Left sided colitis without complications - Other regional forester (current) drug therapy - Type 1 diabetes mellitus with diabetic chronic kidney disease - Contact with and (suspected) exposure to COVID-19 - Allergy status to sulfonamides 03/16/2022 10:31 [facility] TYPE: Medical Surgical COMPLAINT: - ACUTE PANCREATITIS DIAGNOSES: - Chronic kidney disease, stage 3b - Allergy status to sulfonamides - Anemia in chronic kidney disease - Other specified postprocedural states - Acquired absence of other specified parts of digestive tract - Pure hyperglyceridemia - Contact with and (suspected) exposure to COVID-19 - Acquired absence of other specified parts of digestive tract - Hypertensive chronic kidney disease with stage 1 through stage 4 chronic kidney disease, or unspecified chronic kidney disease - Idiopathic acute pancreatitis without necrosis or infection - Allergy status to penicillin - Allergy status to analgesic agent - Hyperlipidemia, unspecified - Allergy status to other drugs, medicaments and biological substances - Unspecified hearing loss, right ear - Allergy status to analgesic agent - Allergy status to penicillin - Contact with and (suspected) exposure to COVID-19 - Type 1 diabetes mellitus with diabetic chronic kidney disease - Allergy status to other antibiotic agents - Unspecified hearing loss, right ear - Elevation of levels of liver transaminase levels - Other regional forester (current) drug therapy - Personal history of Methicillin resistant Staphylococcus aureus infection - Acute kidney failure, unspecified - Chronic kidney disease, stage 3b - Personal history of Methicillin resistant Staphylococcus aureus infection - Hypomagnesemia - Hypomagnesemia - Allergy status to sulfonamides - Anemia in chronic kidney disease - Elevation of levels of liver transaminase levels - Pure hyperglyceridemia - Other regional forester (current) drug therapy - Other specified postprocedural states - Allergy status to other antibiotic agents - Allergy status to other drugs, medicaments and biological substances - Type 1 diabetes mellitus with diabetic chronic kidney disease - Hypertensive chronic kidney disease with stage 1 through stage 4 chronic kidney disease, or unspecified chronic kidney disease - Acute kidney failure, unspecified - Hyperlipidemia, unspecified 01[facility]26[facility]2022 15:43 [facility] DIAGNOSES: - 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 - Upper abdominal pain, unspecified - 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 - Chronic kidney disease, stage 3b - Acute pancreatitis without necrosis or infection, unspecified - Chronic kidney disease, stage 3a - Type 1 diabetes mellitus with hyperglycemia - Tachycardia, unspecified 01/08/2022 15:43 [facility] DIAGNOSES: - Idiopathic acute pancreatitis without necrosis or infection - 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 - Chronic kidney disease, stage 3b - penitentiary (current) use of insulin - Acute pancreatitis without necrosis or infection, unspecified - Personal history of leukemia [email or web address]
== END 2022-05-26 21:55 | disposition home or self-care (01) ==
LOC: ED 18:09
DX: R30.0 Dysuria (principal); R10.9 Unspecified abdominal pain; E11.9 Type 2 diabetes mellitus without complications; I10 Essential (primary) hypertension; Z88.2 Allergy status to sulfonamides; Z88.8 Allergy status to other drugs, medicaments and biological substances; Z88.1 Allergy status to other antibiotic agents; Z88.5 Allergy status to narcotic agent; Z79.4 Long term (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
CPT/HCPCS: 36415; 74176; 80048; 81001; 84703; 85025; A9270

== ENCOUNTER 2022-06-21 12:01 | Observation (INO) | payer OTHER ==
[~2022-06-21] VITALS: Ht 149.9 cm; Wt 43.6 kg
--- OUTSIDE RECORDS SUMMARY | 2022-06-21 12:05 | XMS ---
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 PHONE: [phone] Jef has no Care Guidelines for this patient. Care History Medical/Surgical 09/24/2021 [facility] Contacted Gerri RUDDmakeup sales advisorKujosss-[id number] of recent ED visits. They will follow up with the patient. 02/05/2021 [facility] - W CALLED AND SPOKE WITH AERIAL ERECTOR WALDEMAR- DISCUSSED RECENT ED VISITS- PRIMARY CARE PHYSICIAN REVIEWED PATIENT RECENT ED VISITS AND DID CONTACT PATIENT-THEY HAVE INSTRUCTED PATIENT TO CONTACT MANAGER STORY DR HAMMOND TO SCHEDULE AND EARLIER APT IF POSSIBLE. PATIENT HAS TO MAKE THE APT FOR FOLLOW UP THE CLINIC CAN\T\#39;T SCHEDULE THE APT FOR THE PATIENT. - PATIENT HAS AN APT 02/06/[address] CHRISTENSEN. 01/25/2021 [facility] VOIDING TRIAL SCHEDULED WITH DR CHRISTENSEN UROLOGIST 02/06/21 [place] VISIT COUNT (12 MO.) 4 [facility] NOTE: Visits indicate total known visits. ED/UCC VISIT TRACKING (12 MO.) 06[facility]21/2022 12:[facility] [place] [facility] COMPLAINT: - ABD PAIN, R FLANK PAIN 06/18/2022 11:42 [facility] [place] TYPE: Emergency COMPLAINT: - ABD PAIN, HIGH SUGAR/NO INSULIN 05/26/2022 18:10 [facility] [place] TYPE: Emergency COMPLAINT: - RECTAL BLEEDING DIAGNOSES: - roasterman (current) use of insulin - Allergy status to other antibiotic agents - Unspecified abdominal pain - Allergy status to narcotic agent - Type 2 diabetes mellitus without complications - Dysuria - Essential (primary) hypertension - Allergy status to other drugs, medicaments and biological substances - Allergy status to sulfonamides 05/22/2022 22:48 [facility] [place] TYPE: Emergency COMPLAINT: - CHEST PAIN DIAGNOSES: - Chest pain, unspecified - Allergy status to sulfonamides - Essential (primary) hypertension - Hyperlipidemia, unspecified - Allergy status to narcotic agent - Allergy status to other drugs, medicaments and biological substances - Other press tender long goods (current) drug therapy - retirement (current) use of insulin - Other chest pain - Type 2 diabetes mellitus without complications - Allergy status to other antibiotic agents 04/21/2022 07:11 [facility] [place] TYPE: Emergency COMPLAINT: - ABD PAIN DIAGNOSES: - Type 1 diabetes mellitus with diabetic chronic kidney disease - roasterman (current) use of insulin - Allergy status to other drugs, medicaments and biological substances - Allergy status to sulfonamides - Allergy status to penicillin - Epigastric pain - Allergy status to narcotic agent - Hyperlipidemia, unspecified - Hypertensive chronic kidney disease with stage 1 through stage 4 chronic kidney disease, or unspecified chronic kidney disease - Other senior living (current) drug therapy - Pure hypercholesterolemia, unspecified - Allergy status to other antibiotic agents 03/26/2022 06:58 [facility] [place] TYPE: Emergency COMPLAINT: - CHEST PAIN DIAGNOSES: - Allergy status to sulfonamides - Allergy status to narcotic agent - Hyperlipidemia, unspecified - Allergy status to other antibiotic agents - Allergy status to penicillin - retirement (current) use of insulin - Type 2 diabetes mellitus with diabetic chronic kidney disease - Allergy status to other drugs, medicaments and biological substances - Contact with and (suspected) exposure to COVID-19 - Chest pain, unspecified - Hypertensive chronic kidney disease with stage 1 through stage 4 chronic kidney disease, or unspecified chronic kidney disease - Other press tender long goods (current) drug therapy - Chronic kidney disease, stage 3b 03/19/2022 06:[address] [facility] [place] TYPE: Emergency COMPLAINT: - ABD PAIN, VOMITING 03/16/2022 07:[address] [facility] [place] TYPE: Emergency COMPLAINT: - ABDOMINAL PAIN 03/12/2022 02:[address] [facility] [place] TYPE: Emergency COMPLAINT: - URINE PROBLEM DIAGNOSES: - Allergy status to other antibiotic agents - Essential (primary) hypertension - Allergy status to penicillin - Allergy status to sulfonamides - Type 2 diabetes mellitus without complications - Allergy status to narcotic agent - Other senior living (current) drug therapy - retirement (current) use of insulin - Dysuria - Candidiasis of vulva and vagina - Hyperlipidemia, unspecified - Allergy status to other drugs, medicaments and biological substances 03/07/2022 00:[address] [facility] [place] TYPE: Emergency COMPLAINT: - ABD PAIN, VOMITING DIAGNOSES: - Allergy status to narcotic agent - Allergy status to other antibiotic agents - Upper abdominal pain, unspecified - Allergy status to other drugs, medicaments and biological substances - Essential (primary) hypertension - Hyperlipidemia, unspecified - Type 2 diabetes mellitus without complications - roasterman (current) use of insulin - Other senior living (current) drug therapy - Nausea with vomiting, unspecified - Allergy status to sulfonamides 03/04/2022 15:28 [facility] [place] TYPE: Emergency COMPLAINT: - ABDOMINAL PAIN DIAGNOSES: - Allergy status to sulfonamides - Urinary tract infection, site not specified - Allergy status to penicillin - Upper abdominal pain, unspecified - Hyperlipidemia, unspecified - Contact with and (suspected) exposure to COVID-19 - Essential (primary) hypertension - Allergy status to narcotic agent - Nausea with vomiting, unspecified - roasterman (current) use of insulin - Type 1 diabetes mellitus with diabetic chronic kidney disease - Allergy status to other drugs, medicaments and biological substances - Other press tender long goods (current) drug therapy 02/17/2022 03:45 [facility] [place] TYPE: Emergency COMPLAINT: - LOW BLOOD SUGARS DIAGNOSES: - Allergy status to sulfonamides - Allergy status to other antibiotic agents - Type 2 diabetes mellitus with diabetic chronic kidney disease - Adverse effect of insulin and oral [...] - Allergy status to narcotic agent - retirement (current) use of insulin 02/13/2022 20:21 [facility] [place] TYPE: Emergency COMPLAINT: - ABD PAIN DIAGNOSES: - Acute pancreatitis without necrosis or infection, unspecified - Allergy status to narcotic agent - Unspecified abdominal pain - Hypertensive chronic kidney disease with stage 1 through stage 4 chronic kidney disease, or unspecified chronic kidney disease - Type 1 diabetes mellitus with diabetic chronic kidney disease - Allergy status to other drugs, medicaments and biological substances - Urinary tract infection, site not specified - Hyperlipidemia, unspecified - Allergy status to other antibiotic agents - retirement (current) use of insulin - Other press tender long goods (current) drug therapy - Chronic kidney disease, unspecified - Allergy status to sulfonamides 02/07/2022 23:34 [facility] [place] TYPE: Emergency COMPLAINT: - LEFT KNEE INJ DIAGNOSES: - Type 2 diabetes mellitus without complications - Pain in left knee - Hyperlipidemia, unspecified - roasterman (current) use of insulin - Contusion of left knee, initial encounter - Fall on same level from slipping, tripping and stumbling without subsequent striking against object, initial encounter - Allergy status to sulfonamides - Other senior living (current) drug therapy - Type 2 diabetes [...] narcotic agent - Allergy status to penicillin [facility] [place] [facility] DIAGNOSES: - Abdominal Pain - Acute pancreatitis without necrosis or infection, unspecified - Emesis - Tachycardia, unspecified - Upper abdominal pain, unspecified 01/08[facility]2022 15[facility] DIAGNOSES: - Abdominal Pain - Acute pancreatitis without necrosis or infection, unspecified 12/23/2021 14:51 [facility] [place] TYPE: Emergency COMPLAINT: - ABD PAIN DIAGNOSES: - retirement (current) use of insulin - Allergy status to narcotic agent - Essential (primary) hypertension - Contact with and (suspected) exposure to COVID-19 - Other press tender long goods (current) drug therapy - Unspecified abdominal pain - Type 2 diabetes mellitus without complications - Hyperlipidemia, unspecified - Allergy status to other drugs, medicaments and biological substances - Allergy status to other antibiotic agents - Allergy status to sulfonamides 12/04/2021 20:12 [facility] [place] TYPE: Emergency COMPLAINT: - EYE SWELLING DIAGNOSES: - Chronic kidney disease, unspecified - Other press tender long goods (current) drug therapy - retirement (current) use of insulin - Other specified disorders of eye and adnexa - Allergy status to sulfonamides - Hypertensive [...] - Allergy status to other antibiotic agents 11/26/2021 22:29 [facility] [place] TYPE: Emergency COMPLAINT: - ABD SWELLING, URINE PROBLEM DIAGNOSES: - Allergy status to other drugs, medicaments and biological substances - roasterman (current) use of insulin - Dysuria - Allergy status to sulfonamides - Allergy status to narcotic agent - Essential (primary) hypertension - Hyperlipidemia, unspecified - Other press tender long goods (current) drug therapy - Type 2 diabetes mellitus without complications - Allergy status to other antibiotic agents 11/08/2021 00:36 [facility] [place] TYPE: Emergency COMPLAINT: - HIGH BP, DIZZY DIAGNOSES: - Dizziness and giddiness - Type 2 diabetes mellitus with ketoacidosis without coma - Essential (primary) hypertension - Allergy status to other drugs, medicaments and biological substances - Type 2 diabetes mellitus with diabetic chronic kidney disease - Allergy status to penicillin - Chronic kidney disease, unspecified - Dyspnea, unspecified - Other press tender long goods (current) drug therapy - Allergy status to other antibiotic agents - retirement (current) use of oral hypoglycemic drugs - Pure hypercholesterolemia, unspecified - Hypertensive chronic kidney disease with stage 1 through stage 4 chronic kidney disease, or unspecified chronic kidney disease - Other chest pain - Allergy status to narcotic agent - Allergy status to sulfonamides Plus 9 More Visits INPATIENT VISIT TRACKING (12 MO.) 03/19/2022 10:01 [facility] [place] TYPE: Medical Surgical COMPLAINT: - ACUTE ISCHEMIC COLITIS DIAGNOSES: - Pure hypercholesterolemia, unspecified - roasterman (current) use of insulin - Vitamin D deficiency, unspecified - Chronic kidney disease, stage 3b - Allergy status to penicillin - Allergy status to analgesic agent - Allergy status to sulfonamides - Other senior living (current) drug therapy - Type 1 diabetes mellitus with diabetic chronic kidney disease - Left sided colitis without complications - Contact with and (suspected) exposure to COVID-19 - Allergy status to sulfonamides - Allergy status to other antibiotic agents - Unspecified hearing loss, right ear - Anemia in chronic kidney disease - Other senior living (current) drug therapy - Type 1 diabetes mellitus with diabetic chronic kidney disease - Personal history of Methicillin resistant Staphylococcus aureus infection - roasterman (current) use of opiate analgesic - retirement (current) use of opiate analgesic - Left sided colitis without complications - Personal history of Methicillin resistant Staphylococcus aureus infection - Hyperlipidemia, unspecified - Vitamin D deficiency, unspecified - Acute kidney failure, unspecified - Acute (reversible) ischemia of large intestine, extent unspecified - Chronic kidney disease, stage 3b - Allergy status to other antibiotic agents - Presence of external hearing-aid - Acute kidney failure, unspecified - retirement (current) use of insulin - Allergy status to penicillin - Pure hypercholesterolemia, unspecified - Hypertensive chronic kidney disease with stage 1 through stage 4 chronic kidney disease, or unspecified chronic kidney disease - Hyperlipidemia, unspecified - Hypertensive chronic kidney disease with stage 1 through stage 4 chronic kidney disease, or unspecified chronic kidney disease - Contact with and (suspected) exposure to COVID-19 - Presence of external hearing-aid - Anemia in chronic kidney disease - Unspecified hearing loss, right ear - Allergy status to analgesic agent 03/16/2022 10:[address] [facility] [place] TYPE: Medical Surgical COMPLAINT: - ACUTE PANCREATITIS DIAGNOSES: - Allergy status to sulfonamides - Anemia in chronic kidney disease - Pure hyperglyceridemia - Other senior living (current) drug therapy - Elevation of levels of liver transaminase levels - Other specified postprocedural states - Allergy status to other antibiotic agents - Type 1 diabetes mellitus with diabetic chronic kidney disease - Hypertensive chronic kidney disease with stage 1 through stage 4 chronic kidney disease, or unspecified chronic kidney disease - Allergy status to other drugs, medicaments and biological substances - Acute kidney failure, unspecified - Hyperlipidemia, unspecified - Allergy status to sulfonamides - Anemia in chronic kidney disease - Chronic kidney disease, stage 3b - Other specified postprocedural states - Acquired absence of other specified parts of digestive tract - Pure hyperglyceridemia - Contact with and (suspected) exposure to COVID-19 - Acquired absence of other specified parts of digestive tract - Idiopathic acute pancreatitis without necrosis or infection - Allergy status to penicillin - Hypertensive chronic kidney disease with stage 1 through stage 4 chronic kidney disease, or unspecified chronic kidney disease - Allergy status to analgesic agent - Hyperlipidemia, unspecified - Unspecified hearing loss, right ear - Allergy status to analgesic agent - Allergy status to other drugs, medicaments and biological substances - Allergy status to penicillin - Contact with and (suspected) exposure to COVID-19 - Allergy status to other antibiotic agents - Unspecified hearing loss, right ear - Type 1 diabetes mellitus with diabetic chronic kidney disease - Elevation of levels of liver transaminase levels - Other senior living (current) drug therapy - Acute kidney failure, unspecified - Chronic kidney disease, stage 3b - Personal history of Methicillin resistant Staphylococcus aureus infection - Personal history of Methicillin resistant Staphylococcus aureus infection - Hypomagnesemia - Hypomagnesemia 01/26/2022 15:43 [facility] [place] TYPE: Surgical Services DIAGNOSES: - Type 1 diabetes mellitus with hyperglycemia - Tachycardia, unspecified - retirement (current) use of insulin - Upper abdominal pain, unspecified - 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 - Chronic kidney disease, stage 3b - Acute pancreatitis without necrosis or infection, unspecified - Chronic kidney disease, stage 3a 01/08/2022 15:43 [facility] [place] TYPE: Medical Surgical DIAGNOSES: - Acute pancreatitis without necrosis or infection, unspecified - Personal history of leukemia - Idiopathic acute pancreatitis without necrosis or infection - 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
--- NOTE | 2022-06-21 17:41 | NUR ---
ADMISSION ASSESSMENT COMPLETE. PT STATES PAIN 7/10, STARTS IN BACK RADIATES TO THE ABD. PRN TYLENOL GIVEN PER [facility]. HEAT PAD PROVIDED. LUNG SOUNDS CLEAR, HR REGULAR, BOWEL TONES ACTIVE IN ALL QUADRANTS. NO EDEMA NOTED. PT HAS HEARING AIDS BILAT. HAS HEARING LOSS IN BOTH. STATES "RIGHT EAR IS THE WORST OF THE TWO". PT RESTING COMFORTABLY AFTER PAIN MEDS GIVEN. AT BEDSIDE. EDUCATED ON USE OF CALL LIGHT, AND WITHIN REACH. NO FURTHER NEEDS AT THIS TIME.
[2022-06-21] MEDS ORDERED: INSULIN LI100 UNIT/2 SUB-Q (17:56)
[2022-06-21] MEDS ORDERED: FENOFIBRATE160 MG PO (17:58)
[2022-06-21] MEDS ORDERED: VITAMIN D3125 MC1 PO (17:59)
--- NOTE | 2022-06-21 18:15 | NUR ---
DINNER TRAY ORDERED. PT RESTING IN BED, EYES CLOSED. AT BEDSIDE. CALL LIGHT WITHIN REACH.
--- NOTE | 2022-06-21 18:26 | NUR ---
NOTICED ABX WERE NOT ORDERED IN [facility]. CONTACTED CLAIRIFYING IF HE WANTED ABX GIVEN. DR. SIMMONS STATED NO ABX TONIGHT DUE TO THE ER GIVING IT TONIGHT. ALSO STATED RUN THE 250 ML/HR NORMAL SALINE FIRST THEN, RUN 125 ML/HR CONTIUNOUSLY AFTER. NO NEW ORDERS AT THIS TIME.
--- NOTE | 2022-06-21 20:05 | NUR ---
Patient resting in bed. Lab collecting blood at this time. 2 PRN norco tabs administered for abd/back pain. in room. Call light within reach.
--- NOTE | 2022-06-21 20:45 | NUR ---
in to get vs, pt up to the toliet with , accu check taken, reported to the rn, ice water filled, no furhter need at this time
--- NOTE | 2022-06-22 01:11 | NUR ---
Patient sleeping in bed. sleeping at bedside. Call light within reach of patient.
--- NOTE | 2022-06-22 02:00 | NUR ---
IN TO GET VS, PT VOIDED RECENTLY, PT C/O PAIN, RN INFORMED
--- NOTE | 2022-06-22 04:08 | NUR ---
Uneventful shift. Alert and oriented. KOTZEBUE. Complaints of abd/back pain effectively treated w/PRN norco. Itchiness resulting from nocro treated w/benedryl. Lungs clear. On RA. Bowel sounds active. Adequate I&O's. Infusing NS at rate of 125. remains at bedside. Ambulates independently.
--- NOTE | 2022-06-22 07:25 | NUR ---
RECEIEVED SHIFT REPORT. PT RESTING IN BED, EYES CLOSED. AT BEDSIDE. CALL LIGHT WITHIN REACH.
--- NOTE | 2022-06-22 08:21 | NUR ---
PT LAYING IN BED WATCHING TV. PT STATED PAIN "IS THERE" BUT RATES IT 1/. PT ALSO STATED SHE FELT ITCHY AFTER GIVIN PRN NORCO FROM THIS MORNING. BENADRYL GIVEN PER EM[facility]. CALL LIGHT WITHIN REACH. AT BEDSIDE.
--- NOTE | 2022-06-22 08:50 | NUR ---
PATIENT INDEPENDENT, SPOUSE IN ROOM. PT HAS NO OTHER NEEDS AT THIS TIME. CALL LIGHT WITHIN REACH.
--- NOTE | 2022-06-22 09:45 | NUR ---
PATIENT IN BED AFTER MEAL. PT IS INDEPENDENT IN ROOM, SPOUSE ALSO IN ROOM. PT HAS NO OTHER NEEDS AT THIS TIME. CALL LIGHT IN REACH.
[2022-06-22] MEDS ORDERED: CRESTOR10 MG PO (10:24)
[2022-06-22] MEDS ORDERED: CEFDINIR300 MG PO (10:30)
== END 2022-06-22 11:30 | disposition home or self-care (01) ==
LOC: ED 12:01 → MS 12:02
PROVIDERS: ADMIT Family Medicine; ATTEND Family Medicine
DX: E10.65 Type 1 diabetes mellitus with hyperglycemia (principal); N28.9 Disorder of kidney and ureter, unspecified; N18.9 Chronic kidney disease, unspecified; E10.22 Type 1 diabetes mellitus with diabetic chronic kidney disease; N39.0 Urinary tract infection, site not specified; Z88.2 Allergy status to sulfonamides; Z88.5 Allergy status to narcotic agent; Z88.0 Allergy status to penicillin; Z88.8 Allergy status to other drugs, medicaments and biological substances; Z20.822 Contact with and (suspected) exposure to COVID-19
CPT/HCPCS: 36415; 74176; 80048; 80053; 81001; 82010; 82803; 83036; 83690; 83735; 84703; 85025; 87077; 87088; 87502; 96361; 96365; 96372; 96375; 99285-25; A9270; C9803; G0378; J0696; J1200; J1650; J1815; J2405; J3010; J7030; U0003

== ENCOUNTER 2022-07-03 05:55 | Emergency (ER) | payer OTHER ==
[~2022-07-03] VITALS: Ht 149.9 cm; Wt 42.9 kg
[~2022-07-03 05:55] MED LIST changes: +CEFDINIR300 MG PO; +FENOFIBRATE160 MG PO; +INSULIN LI100 UNIT/2 SUB-Q; +VITAMIN D3125 MC1 PO
--- OUTSIDE RECORDS SUMMARY | 2022-07-03 05:58 | XMS ---
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 PHONE: [phone] Jef has no Care Guidelines for this patient. Care History Medical/Surgical 09/24/2021 [facility] Contacted Gerri RUDDcrew [id number] of recent ED visits. They will follow up with the patient. 02/05/2021 [facility] - W CALLED AND SPOKE WITH CURRICULUM ADVISORY TEACHER WALDEMAR- DISCUSSED RECENT ED VISITS- PRIMARY CARE PHYSICIAN REVIEWED PATIENT RECENT ED VISITS AND DID CONTACT PATIENT-THEY HAVE INSTRUCTED PATIENT TO CONTACT HEAD OF SALES DR HAMMOND TO SCHEDULE AND EARLIER APT IF POSSIBLE. PATIENT HAS TO MAKE THE APT FOR FOLLOW UP THE CLINIC CAN\T\#39;T SCHEDULE THE APT FOR THE PATIENT. - PATIENT HAS AN APT 02/06/[address] CHRISTENSEN. 01/25/2021 [facility] VOIDING TRIAL SCHEDULED WITH DR CHRISTENSEN UROLOGIST 02/06/21 [facility] VISIT COUNT (12 MO.) [facility] TOTAL 30 NOTE: Visits indicate total known visits. ED/UCC VISIT TRACKING (12 MO.) [facility] COMPLAINT: - ABD PAIN, NAUSEA 06/21/2022 12:01 [facility] [place] TYPE: Emergency COMPLAINT: - ABD PAIN, R FLANK PAIN 06/18/2022 11:42 [facility] [place] TYPE: Emergency COMPLAINT: - ABD PAIN, HIGH SUGAR/NO INSULIN 05/26/2022 18:10 [facility] [place] TYPE: Emergency COMPLAINT: - RECTAL BLEEDING DIAGNOSES: - Unspecified abdominal pain - Allergy status to narcotic agent - Type 2 diabetes mellitus without complications - Dysuria - Essential (primary) hypertension - Allergy status to other drugs, medicaments and biological substances - Allergy status to sulfonamides - FDC (current) use of insulin - Allergy status to other antibiotic agents 05/22/2022 22:48 [facility] [place] TYPE: Emergency COMPLAINT: - CHEST PAIN DIAGNOSES: - Essential (primary) hypertension - Hyperlipidemia, unspecified - Allergy status to narcotic agent - Allergy status to other drugs, medicaments and biological substances - Other termite exterminator helper (current) drug therapy - 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 accountant (current) use of insulin - Other chest pain - Type 2 diabetes mellitus without complications - Allergy status to other antibiotic agents - Chest pain, unspecified - Allergy status to sulfonamides 04/21/2022 07:11 [facility] [place] TYPE: Emergency [...] or unspecified chronic kidney disease - Other mcc (current) drug therapy - Pure hypercholesterolemia, unspecified - Allergy status to other antibiotic agents - Type 1 diabetes mellitus with diabetic chronic kidney disease - 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 accountant (current) use of insulin 03/26/2022 06:58 [facility] [place] TYPE: Emergency COMPLAINT: - CHEST PAIN DIAGNOSES: - Allergy status to other antibiotic agents - Allergy status to penicillin - FDC [...] or unspecified chronic kidney disease - Other termite exterminator helper (current) drug therapy - Chronic kidney disease, stage 3b - Allergy status to sulfonamides - Allergy status to narcotic agent - Hyperlipidemia, unspecified 03/19/2022 06:[address] [facility] [place] TYPE: Emergency COMPLAINT: - ABD PAIN, VOMITING 03/16/2022 07:[address] [facility] [place] TYPE: Emergency COMPLAINT: - ABDOMINAL PAIN 03/12/2022 02:19 [facility] TYPE: Emergency COMPLAINT: - URINE PROBLEM DIAGNOSES: - Allergy status to penicillin - Allergy status to sulfonamides - Type 2 diabetes mellitus without complications - Allergy status to narcotic agent - Other termite exterminator helper (current) drug therapy - 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 accountant (current) use of insulin - Dysuria - Candidiasis of vulva and vagina - Hyperlipidemia, unspecified - Allergy status to other drugs, medicaments and biological substances - Allergy status to other antibiotic agents - Essential (primary) hypertension 03/07/2022 00:39 [facility] [place] TYPE: Emergency COMPLAINT: - ABD PAIN, VOMITING DIAGNOSES: - Upper abdominal pain, unspecified - Allergy status to other drugs, medicaments and biological substances - Essential (primary) hypertension - Hyperlipidemia, unspecified - Type 2 diabetes mellitus without complications - 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 accountant (current) use of insulin - Other mcc (current) drug therapy - Nausea with vomiting, unspecified - Allergy status to sulfonamides - Allergy status to narcotic agent - Allergy status to other antibiotic agents 03/04/2022 15:28 [facility] [place] TYPE: Emergency COMPLAINT: - ABDOMINAL PAIN DIAGNOSES: - Upper abdominal pain, unspecified - Hyperlipidemia, unspecified - Contact with and (suspected) exposure to COVID-19 - Essential (primary) hypertension - Allergy status to narcotic agent - Nausea with vomiting, unspecified - FDC (current) use of insulin - Type 1 diabetes mellitus with diabetic chronic kidney disease - Allergy status to other drugs, medicaments and biological substances - Other termite exterminator helper (current) drug therapy - Allergy status to sulfonamides - Urinary tract infection, site not specified - Allergy status to penicillin 02/17/2022 03:45 [facility] [place] TYPE: Emergency COMPLAINT: - LOW BLOOD SUGARS DIAGNOSES: - Type 2 diabetes mellitus with [...] - Allergy status to narcotic agent - 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 accountant (current) use of insulin - Allergy status to sulfonamides - Allergy status to other antibiotic agents 02/13/2022 20:21 [facility] [place] TYPE: Emergency COMPLAINT: - ABD PAIN DIAGNOSES: - Hypertensive chronic kidney disease with stage 1 through stage 4 chronic kidney disease, or unspecified chronic kidney disease - Type 1 diabetes mellitus with diabetic chronic kidney disease - Allergy status to other drugs, medicaments and biological substances - Urinary tract infection, site not specified - Hyperlipidemia, unspecified - Allergy status to other antibiotic agents - FDC (current) use of insulin - Other mcc (current) drug therapy - Chronic kidney disease, unspecified - Allergy status to sulfonamides - Acute pancreatitis without necrosis or infection, unspecified - Allergy status to narcotic agent - Unspecified abdominal pain 02/07/2022 23:34 [facility] [place] TYPE: Emergency COMPLAINT: - LEFT KNEE INJ DIAGNOSES: - Contusion of left knee, initial encounter - Fall on same level from slipping, tripping and stumbling without subsequent striking against object, initial encounter - Allergy status to sulfonamides - Other mcc (current) drug therapy - Type 2 diabetes [...] in left knee - Hyperlipidemia, unspecified - FDC (current) use of insulin [facility] DIAGNOSES: - Acute pancreatitis without necrosis or infection, unspecified - Emesis - Tachycardia, unspecified - Upper abdominal pain, unspecified - Abdominal Pain 01/08/2022 15[facility]43 [facility] DIAGNOSES: - Abdominal Pain - Acute pancreatitis without necrosis or infection, unspecified 12/23/2021 14:51 [facility] [place] TYPE: Emergency COMPLAINT: - ABD PAIN DIAGNOSES: - Essential (primary) hypertension - Contact with and (suspected) exposure to COVID-19 - Other mcc (current) drug therapy - Unspecified abdominal pain - Type 2 diabetes mellitus without complications - Hyperlipidemia, unspecified - Allergy status to other drugs, medicaments and biological substances - Allergy status to other antibiotic agents - Allergy status to sulfonamides - FDC (current) use of insulin - Allergy status to narcotic agent 12/04/2021 20:12 [facility] [place] TYPE: Emergency COMPLAINT: - EYE SWELLING DIAGNOSES: - Other specified disorders of eye and [...] Chronic kidney disease, unspecified - Other termite exterminator helper (current) drug therapy - 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 accountant (current) use of insulin 11/26/2021 22:29 [facility] TYPE: Emergency COMPLAINT: - ABD SWELLING, URINE PROBLEM DIAGNOSES: - Dysuria - Allergy status to sulfonamides - Allergy status to narcotic agent - Essential (primary) hypertension - Hyperlipidemia, unspecified - Other mcc (current) drug therapy - Type 2 diabetes mellitus without complications - Allergy status to other antibiotic agents - Allergy status to other drugs, medicaments and biological substances - FDC (current) use of insulin Plus 10 More Visits INPATIENT VISIT TRACKING (12 MO.) 06/21/2022 12:02 [facility] [place] TYPE: Observation COMPLAINT: - ACUTE ON CHRONIC KIDNEY DISEASE, UTI 03/19/2022 10:01 [facility] [place] TYPE: Medical Surgical COMPLAINT: - ACUTE ISCHEMIC COLITIS DIAGNOSES: - Contact with and (suspected) exposure to COVID-19 - Allergy status to sulfonamides - Anemia in chronic kidney disease - Allergy status to other antibiotic agents - Unspecified hearing loss, right ear - Other mcc (current) drug therapy - Type 1 diabetes mellitus with diabetic chronic kidney disease - Personal history of Methicillin resistant Staphylococcus aureus infection - 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 accountant (current) use of opiate analgesic - 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 accountant (current) use of opiate analgesic - Hyperlipidemia, [...] failure, unspecified - Pure hypercholesterolemia, unspecified - FDC (current) use of insulin [...] analgesic agent - Pure hypercholesterolemia, unspecified - 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 accountant (current) use of insulin - Allergy status to penicillin - Vitamin D deficiency, unspecified - Chronic kidney disease, stage 3b - Allergy status to analgesic agent - Allergy status to sulfonamides - Left sided colitis without complications - Other termite exterminator helper (current) drug therapy - Type 1 diabetes mellitus with diabetic chronic kidney disease 03/16/2022 10:[address] [facility] [place] TYPE: Medical Surgical COMPLAINT: - ACUTE PANCREATITIS DIAGNOSES: - Acute kidney failure, unspecified - Hyperlipidemia, unspecified - Chronic kidney disease, stage 3b [...] levels of liver transaminase levels - Other mcc (current) drug therapy - Personal history of Methicillin resistant Staphylococcus aureus infection - Acute kidney failure, unspecified - Chronic kidney disease, stage 3b - Personal history of Methicillin resistant Staphylococcus aureus infection - Hypomagnesemia - Hypomagnesemia - Allergy status to sulfonamides - Anemia in chronic kidney disease - Elevation of levels of liver transaminase levels - Pure hyperglyceridemia - Other termite exterminator helper (current) drug therapy - Other specified postprocedural states - Allergy status to other antibiotic agents - Allergy status to other drugs, medicaments and biological substances - Type 1 diabetes mellitus with diabetic chronic kidney disease - Hypertensive chronic kidney disease with stage 1 through stage 4 chronic kidney disease, or unspecified chronic kidney disease 01/26/2022 15:43 [facility] DIAGNOSES: - 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 accountant (current) use of insulin - Upper abdominal pain, unspecified - 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 - Chronic kidney disease, stage 3b - Acute pancreatitis without necrosis or infection, unspecified - Chronic kidney disease, stage 3a - Type 1 diabetes mellitus with hyperglycemia - Tachycardia, unspecified 01/08/2022 15:43 [facility] DIAGNOSES: - Idiopathic acute pancreatitis without necrosis or infection - 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
[2022-07-03] MEDS ORDERED: NAPROSYN500 MG PO (08:47)
[2022-07-03] MEDS ORDERED: ONDANSETRON ODT4 MG PO (08:47)
== END 2022-07-03 08:57 | disposition home or self-care (01) ==
LOC: ED 05:55
DX: R10.11 Right upper quadrant pain (principal); I12.9 Hypertensive chronic kidney disease with stage 1 through stage 4 chronic kidney disease, or unspecified chronic kidney disease; E11.22 Type 2 diabetes mellitus with diabetic chronic kidney disease; N18.9 Chronic kidney disease, unspecified; Z20.822 Contact with and (suspected) exposure to COVID-19; Z88.2 Allergy status to sulfonamides; Z88.0 Allergy status to penicillin; Z88.5 Allergy status to narcotic agent; Z88.8 Allergy status to other drugs, medicaments and biological substances; Z88.1 Allergy status to other antibiotic agents; Z79.4 Long term (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; Z79.899 Other long term (current) 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
CPT/HCPCS: 36415; 76705; 80053; 81001; 83690; 84703; 85025; 87502; J2405; J3010; J7030; U0003

== ENCOUNTER 2022-07-29 08:41 | Emergency (ER) | payer OTHER ==
[~2022-07-29] VITALS: Ht 149.9 cm; Wt 40.1 kg
[~2022-07-29 08:41] MED LIST changes: +NAPROSYN500 MG PO
--- OUTSIDE RECORDS SUMMARY | 2022-07-29 08:57 | XMS ---
PreManage Notification: MONTSE GUTIERREZ Security Discovery Manager Events 1 event(s) in the past 18 months Most recent security events: Elopement at [facility] 07/08/2022 22:03 - Patient eloped before treatment completed. - Patient with suicidal and/or homicidal ideations eloped. - Patient eloped with IV in place. 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 PHONE: [phone] Jef has no Care Guidelines for this patient. Care History Medical/Surgical 09/24/2021 [facility] Contacted Gerri RUDDpreanalytics team [id number] of recent ED visits. They will follow up with the patient. 02/05/2021 [facility] - CHW CALLED AND SPOKE WITH GANTRY RIGGER WALDEMAR- DISCUSSED RECENT ED VISITS- PRIMARY CARE PHYSICIAN REVIEWED PATIENT RECENT ED VISITS AND DID CONTACT PATIENT-THEY HAVE INSTRUCTED PATIENT TO CONTACT SPECIALTY MOLDER DR HAMMOND TO SCHEDULE AND EARLIER APT IF POSSIBLE. PATIENT HAS TO MAKE THE APT FOR FOLLOW UP THE CLINIC CAN\T\#39;T SCHEDULE THE APT FOR THE PATIENT. - PATIENT HAS AN APT 02/06/[address] CHRISTENSEN. 01/25/2021 [facility] VOIDING TRIAL SCHEDULED WITH DR CHRISTENSEN UROLOGIST 02/06/21 [place] VISIT COUNT (12 MO.) 4 [facility] 27 [facility] TOTAL 31 NOTE: Visits indicate total known visits. ED/UCC VISIT TRACKING (12 MO.) 07/29/2022 08:41 [facility] [place] COMPLAINT: - UPPER ABD PAIN, NAUSEA 07/27/2022 00:25 [facility] [place] TYPE: Emergency COMPLAINT: - ABD PAIN 07/18/2022 [facility] [facility] [address] DIAGNOSES: - Unspecified abdominal pain - abd pain - Abdominal Pain 07/12/2022 11:28 [facility] [place] TYPE: Emergency DIAGNOSES: - Calculus of gallbladder without cholecystitis without obstruction - Abdominal Pain - Nausea - back,pain,abd pain, chronic kidney pain - Calculus of bile duct without cholangitis or cholecystitis without obstruction 07/08/2022 22:03 [facility] [place] TYPE: Emergency COMPLAINT: - URINE PROBLEM 07/03/2022 05:56 [facility] [place] TYPE: Emergency COMPLAINT: - ABD PAIN, NAUSEA DIAGNOSES: - [facility] (current) use of insulin - Other jail (current) drug therapy - Contact with and (suspected) exposure to COVID-19 - Allergy status to penicillin - Allergy status to other antibiotic agents - Chronic kidney disease, unspecified - Hypertensive chronic kidney disease with stage 1 through stage 4 chronic kidney disease, or unspecified chronic kidney disease - Right upper quadrant pain - Type 2 diabetes mellitus with diabetic chronic kidney disease - Allergy status to sulfonamides - Allergy status to narcotic agent - Allergy status to other drugs, medicaments and biological substances 06/21/2022 12:01 [facility] [place] TYPE: Emergency COMPLAINT: - ABD PAIN, R FLANK PAIN 06/18/2022 11:42 [facility] [place] TYPE: Emergency COMPLAINT: - ABD PAIN, HIGH SUGAR/NO INSULIN DIAGNOSES: - Hyperlipidemia, unspecified - Nausea - Allergy status to sulfonamides - Essential (primary) hypertension - Allergy status to narcotic agent - Allergy status to other drugs, medicaments and biological substances - Other terminal press operator (current) drug therapy - long term care phlebotomist (current) use of insulin - Type 1 diabetes mellitus with hyperglycemia - Allergy status to other antibiotic agents 05/26/2022 18:10 [facility] [place] TYPE: Emergency COMPLAINT: - RECTAL BLEEDING DIAGNOSES: - Allergy status to other drugs, medicaments and biological substances - Allergy status to sulfonamides - long term care phlebotomist (current) use of insulin - Allergy status to other antibiotic agents - Unspecified abdominal pain - Allergy status to narcotic agent - Type 2 diabetes mellitus without complications - Dysuria - Essential (primary) hypertension 05/22/2022 22:48 [facility] [place] TYPE: Emergency COMPLAINT: - CHEST PAIN DIAGNOSES: - Type 2 diabetes mellitus without complications - Allergy status to other antibiotic agents - Chest pain, unspecified - Allergy status to sulfonamides - Essential (primary) hypertension - Hyperlipidemia, unspecified - Allergy status to narcotic agent - Allergy status to other drugs, medicaments and biological substances - Other terminal press operator (current) drug therapy - long term care phlebotomist (current) use of insulin - Other chest pain 04/21/2022 07:11 [facility] [place] TYPE: Emergency COMPLAINT: - ABD PAIN DIAGNOSES: - Pure hypercholesterolemia, unspecified - Allergy status to other antibiotic agents - Type 1 diabetes mellitus with diabetic chronic kidney disease - long term care phlebotomist (current) use of insulin - Allergy status to other drugs, medicaments and biological substances - Allergy status to sulfonamides - Allergy status to penicillin - Epigastric pain - Allergy status to narcotic agent - Hyperlipidemia, unspecified - Hypertensive chronic kidney disease with stage 1 through stage 4 chronic kidney disease, or unspecified chronic kidney disease - Other jail (current) drug therapy 03/26/2022 06:58 [facility] [place] TYPE: Emergency COMPLAINT: - CHEST PAIN DIAGNOSES: - Other terminal press operator (current) drug therapy - Chronic kidney disease, stage 3b - Allergy status to sulfonamides - Allergy status to narcotic agent - Hyperlipidemia, unspecified - Allergy status to other antibiotic agents - Allergy status to penicillin - long term care phlebotomist (current) use of insulin - Type 2 diabetes mellitus with diabetic chronic kidney disease - Allergy status to other drugs, medicaments and biological substances - Contact with and (suspected) exposure to COVID-19 - Chest pain, unspecified - Hypertensive chronic kidney disease with stage 1 through stage 4 chronic kidney disease, or unspecified chronic kidney disease 03/19/2022 06:55 [facility] [place] COMPLAINT: - ABD PAIN, VOMITING 03/16/2022 07:38 [facility] [place]: Emergency COMPLAINT: - ABDOMINAL PAIN 03/12/2022 02:19 [facility] [place] TYPE: Emergency COMPLAINT: - URINE PROBLEM DIAGNOSES: - Hyperlipidemia, unspecified - Allergy status to other drugs, medicaments and biological substances - Allergy status to other antibiotic agents - Essential (primary) hypertension - Allergy status to penicillin - Allergy status to sulfonamides - Type 2 diabetes mellitus without complications - Allergy status to narcotic agent - Other terminal press operator (current) drug therapy - long term care phlebotomist (current) use of insulin - Dysuria - Candidiasis of vulva and vagina 03/07/2022 00:39 [facility] [place] TYPE: Emergency COMPLAINT: - ABD PAIN, VOMITING DIAGNOSES: - Nausea with vomiting, unspecified - Allergy status to sulfonamides - Allergy status to narcotic agent - Allergy status to other antibiotic agents - Upper abdominal pain, unspecified - Allergy status to other drugs, medicaments and biological substances - Essential (primary) hypertension - Hyperlipidemia, unspecified - Type 2 diabetes mellitus without complications - [facility] (current) use of insulin - Other terminal press operator (current) drug therapy 03/04/2022 15:28 [facility] [place] TYPE: Emergency [...] agent - Nausea with vomiting, unspecified - [facility] (current) use of insulin - Type 1 diabetes mellitus with diabetic chronic kidney disease 02/17/2022 03:45 [facility] [place] TYPE: Emergency COMPLAINT: - LOW BLOOD SUGARS DIAGNOSES: - Allergy status to narcotic agent - [facility] (current) use of insulin - Allergy status [...] kidney disease, or unspecified chronic kidney disease 02/13/2022 20:21 [facility] [place] TYPE: Emergency COMPLAINT: - ABD PAIN DIAGNOSES: - Chronic kidney disease, unspecified - Allergy [...] Allergy status to other antibiotic agents - [facility] (current) use of insulin - Other jail (current) drug therapy 02/07/2022 23:34 [facility] [place] TYPE: Emergency COMPLAINT: - LEFT KNEE INJ DIAGNOSES: - Allergy status to narcotic agent - Allergy status to penicillin - Type 2 diabetes mellitus without complications - Pain in left knee - Hyperlipidemia, unspecified - long term care phlebotomist (current) use of insulin - Contusion of left knee, initial encounter - Fall on same level from slipping, tripping and stumbling without subsequent striking against object, initial encounter - Allergy status to sulfonamides - Other jail (current) drug therapy - Type 2 diabetes mellitus with diabetic chronic kidney disease - Allergy status to other antibiotic agents - Chronic kidney disease, unspecified - Hypertensive chronic kidney disease with stage 1 through stage 4 chronic kidney disease, or unspecified chronic kidney disease - Allergy status to other drugs, medicaments and biological substances Plus 11 More Visits INPATIENT VISIT TRACKING (12 MO.) 06/21/2022 12:02 [facility] [place] TYPE: Observation COMPLAINT: - ACUTE ON CHRONIC KIDNEY DISEASE, UTI DIAGNOSES: - Urinary tract infection, site not specified - Type 1 diabetes mellitus with hyperglycemia - Allergy status to other drugs, medicaments and biological substances - Type 1 diabetes mellitus with diabetic chronic kidney disease - Contact with and (suspected) exposure to COVID-19 - Allergy status to narcotic agent - Allergy status to penicillin - Disorder of kidney and ureter, unspecified - Chronic kidney disease, unspecified - Allergy status to sulfonamides 03/19/2022 10:01 [facility] [place] TYPE: Medical Surgical COMPLAINT: - ACUTE ISCHEMIC COLITIS DIAGNOSES: - Presence of external hearing-aid - Hypertensive chronic kidney disease with stage 1 through stage 4 chronic kidney disease, or unspecified chronic kidney disease - Contact with and (suspected) exposure to COVID-19 - Anemia in chronic kidney disease - Unspecified hearing loss, right ear - Allergy status to analgesic agent - Pure hypercholesterolemia, unspecified - [facility] (current) use of insulin - Allergy status to penicillin - Vitamin D deficiency, unspecified - Chronic kidney disease, stage 3b - Allergy status to analgesic agent - Allergy status to sulfonamides - Left sided colitis without complications - Other jail (current) drug therapy - Type 1 diabetes mellitus with diabetic chronic kidney disease - Contact with and (suspected) exposure to COVID-19 - Allergy status to sulfonamides - Anemia in chronic kidney disease - Allergy status to other antibiotic agents - Unspecified hearing loss, right ear - Other terminal press operator (current) drug therapy - Type 1 diabetes mellitus with diabetic chronic kidney disease - Personal history of Methicillin resistant Staphylococcus aureus infection - long term care phlebotomist (current) use of opiate analgesic - long term care phlebotomist (current) use of opiate analgesic - Hyperlipidemia, [...] failure, unspecified - Pure hypercholesterolemia, unspecified - [facility] (current) use of insulin - Allergy status to penicillin - Hypertensive chronic kidney disease with stage 1 through stage 4 chronic kidney disease, or unspecified chronic kidney disease - Hyperlipidemia, unspecified 03/16/2022 10:[address] [facility] [place] TYPE: Medical Surgical COMPLAINT: - ACUTE PANCREATITIS DIAGNOSES: - Personal history of Methicillin resistant Staphylococcus aureus infection - Acute kidney failure, unspecified - Chronic kidney disease, stage 3b - Personal history of Methicillin resistant Staphylococcus aureus infection - Hypomagnesemia - Hypomagnesemia - Allergy status to sulfonamides - Anemia in chronic kidney disease - Elevation of levels of liver transaminase levels - Pure hyperglyceridemia - Other terminal press operator (current) drug therapy - Other specified postprocedural [...] levels of liver transaminase levels - Other terminal press operator (current) drug therapy 01/26/2022 15:43 [facility] [place] TYPE: Surgical Services DIAGNOSES: - Acute pancreatitis without necrosis or infection, unspecified - Chronic kidney disease, stage 3a - Type 1 diabetes mellitus with hyperglycemia - Tachycardia, unspecified - long term care phlebotomist (current) use of insulin - Upper abdominal pain, unspecified - 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 - Chronic kidney disease, stage 3b 01/08/2022 15:43 [facility] [place] TYPE: Medical Surgical DIAGNOSES: - long term care phlebotomist (current) use of insulin - Acute pancreatitis without necrosis or infection, unspecified - Personal history of leukemia - Idiopathic acute pancreatitis without necrosis or infection - 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 - Chronic kidney disease, stage 3b [email or web address]
== END 2022-07-29 11:13 | disposition home or self-care (01) ==
LOC: ED 08:41
DX: R10.10 Upper abdominal pain, unspecified (principal); E78.5 Hyperlipidemia, unspecified; I12.9 Hypertensive chronic kidney disease with stage 1 through stage 4 chronic kidney disease, or unspecified chronic kidney disease; N18.9 Chronic kidney disease, unspecified; E11.22 Type 2 diabetes mellitus with diabetic chronic kidney disease; Z88.2 Allergy status to sulfonamides; Z88.8 Allergy status to other drugs, medicaments and biological substances; Z88.0 Allergy status to penicillin; Z88.1 Allergy status to other antibiotic agents; Z88.5 Allergy status to narcotic agent; Z79.899 Other long term (current) 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; Z79.4 Long term (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
CPT/HCPCS: 36415; 80053; 83690; 84703; 85025; 96374; 96375; 99284-25; J1170; J1885; J2405; J7030

== ENCOUNTER 2022-09-22 21:54 | Emergency (ER) | payer OTHER ==
[~2022-09-22] VITALS: Ht 149.9 cm; Wt 42.5 kg
[~2022-09-22 21:54] MED LIST changes: +HUMALOG KW200 UNIT/1 SUB-Q; +KAPSPARGO SPRIN25 MG PO
--- OUTSIDE RECORDS SUMMARY | 2022-09-22 21:56 | XMS ---
PreManage Notification: MONTSE GUTIERREZ Security Service Advocate Contact Events 2 event(s) in the past 18 months Most recent security events: Elopement at [facility] 08/17/2022 17:10 - Patient eloped before treatment completed. - Patient with suicidal and/or homicidal ideations eloped. - Patient eloped with IV in place. Details: Patient LWBS. Elopement at [facility] 07/08/2022 22:03 - Patient eloped before treatment completed. - Patient with suicidal and/or homicidal ideations eloped. - Patient eloped with IV in place. Details: PATIENT LWBS CRITERIA MET - [facility] - 2 Visits in 30 Days - [facility] - [facility] - Has Care Guidelines - 6 ED Visits in 6 Months CARE PROVIDERS SAUL THORPE 03/19/2019-Current PHONE: Unknown [facility] 01/22/2021-[facility] PHONE: [phone] Jef has no Care Guidelines for this patient. Care History Medical/Surgical 09/24/2021 [facility] Contacted Gerri RUDDprogrammer [id number] of recent ED visits. They will follow up with the patient. 02/05/2021 [facility] - [facility]W CALLED AND SPOKE WITH BALL THREAD MACHINE TENDER WALDEMAR- DISCUSSED RECENT ED VISITS- PRIMARY CARE PHYSICIAN REVIEWED PATIENT RECENT ED VISITS AND DID CONTACT PATIENT-THEY HAVE INSTRUCTED PATIENT TO CONTACT CHANNEL DIRECTOR DR HAMMOND TO SCHEDULE AND EARLIER APT IF POSSIBLE. PATIENT HAS TO MAKE THE APT FOR FOLLOW UP THE CLINIC CAN\T\#39;T SCHEDULE THE APT FOR THE PATIENT. - PATIENT HAS AN APT 02/06/[address] CHRISTENSEN. 01/25/2021 [facility] VOIDING TRIAL SCHEDULED WITH DR CHRISTENSEN UROLOGIST 02/06/21 [facility] ([address] [facility]. TOTAL 34 NOTE: Visits indicate total known visits. ED/UCC VISIT TRACKING (12 MO.) 09/22/2022 21:55 [facility] [place] TYPE: Emergency COMPLAINT: - DIABETIC ISSUES 09/14/2022 10:28 [facility] [place] TYPE: Emergency COMPLAINT: - CHEST PAIN DIAGNOSES: - Hypertensive chronic kidney disease with stage 1 through stage 4 chronic kidney disease, or unspecified chronic kidney disease - Hyperlipidemia, unspecified - Chronic kidney disease, unspecified - Allergy status to other antibiotic agents - Other chest pain - Type 2 diabetes mellitus with ketoacidosis without coma - Allergy status to sulfonamides - Allergy status to other drugs, medicaments and biological substances - Allergy status to narcotic agent - Type 2 diabetes mellitus with diabetic chronic kidney disease 08/17/2022 17:10 [facility] [place] TYPE: Emergency COMPLAINT: - ABDOMINAL PAIN 08/03/2022 12:33 [facility] TYPE: Emergency COMPLAINT: - BLOOD SUGAR PROBLEM DIAGNOSES: - Hypertensive chronic kidney disease with stage 1 through stage 4 chronic kidney disease, or unspecified chronic kidney disease - Other care home (current) drug therapy - Hyperlipidemia, unspecified - Chronic kidney disease, unspecified - Allergy status to sulfonamides - Hyperkalemia - Essential (primary) hypertension - Type 2 diabetes mellitus with ketoacidosis without coma - Allergy status to other antibiotic agents - Encounter for issue of repeat prescription - Allergy status to other drugs, medicaments and biological substances - Type 2 diabetes mellitus with diabetic chronic kidney disease - Allergy status to narcotic agent [facility] DIAGNOSES: - Right upper quadrant pain - Abdominal Pain - abd, back pain 07/29/2022 08:41 [facility] TYPE: Emergency COMPLAINT: - UPPER ABD PAIN, NAUSEA DIAGNOSES: - Allergy status to other antibiotic agents - Allergy status to sulfonamides - Hyperlipidemia, unspecified - Type 2 diabetes mellitus with diabetic chronic kidney disease - Upper abdominal pain, unspecified - Allergy status to other drugs, medicaments and biological substances - Allergy status to narcotic agent - Allergy status to penicillin - Chronic kidney disease, unspecified - Hypertensive chronic kidney disease with stage 1 through stage 4 chronic kidney disease, or unspecified chronic kidney disease - care home (current) use of insulin - Other exterminator helper termite (current) drug therapy 07/27/2022 00:25 [facility] [place] TYPE: Emergency COMPLAINT: - ABD PAIN DIAGNOSES: - Calculus of bile duct without cholangitis or cholecystitis without obstruction - Allergy status to sulfonamides - Allergy status to other drugs, medicaments and biological substances - Hyperlipidemia, unspecified - Chronic kidney disease, unspecified - Allergy status to other antibiotic agents - Right upper quadrant pain - Allergy status to narcotic agent - Hypertensive chronic kidney disease with stage 1 through stage 4 chronic kidney disease, or unspecified chronic kidney disease - Other exterminator helper termite (current) drug therapy - Type 2 diabetes mellitus with diabetic chronic kidney disease - Type 2 diabetes mellitus with ketoacidosis without coma 07/18[facility]2022 11[facility] DIAGNOSES: - Abdominal Pain - Unspecified abdominal pain - abd pain 07/12/2022 11:[facility] DIAGNOSES: - back,pain,abd pain, chronic kidney pain - Calculus of bile duct without cholangitis or cholecystitis without obstruction - Calculus of gallbladder without cholecystitis without obstruction - Abdominal Pain - Nausea 07/08/2022 22:03 [facility] [place] TYPE: Emergency COMPLAINT: - URINE PROBLEM 07/03/2022 05:56 [facility] [place] TYPE: Emergency COMPLAINT: - ABD PAIN, NAUSEA DIAGNOSES: - Right upper quadrant pain - Type 2 diabetes mellitus with diabetic chronic kidney disease - Allergy status to sulfonamides - Allergy status to narcotic agent - Allergy status to other drugs, medicaments and biological substances - termite control service representative (current) use of insulin - Other exterminator helper termite (current) drug therapy - Contact with and (suspected) exposure to COVID-19 - Allergy status to penicillin - Allergy status to other antibiotic agents - Chronic kidney disease, unspecified - Hypertensive chronic kidney disease with stage 1 through stage 4 chronic kidney disease, or unspecified chronic kidney disease 06/21/2022 12:01 [facility] [place] TYPE: Emergency COMPLAINT: - ABD PAIN, R FLANK PAIN 06/18/2022 11:42 [facility] [place] [facility]: Emergency COMPLAINT: - ABD PAIN, HIGH SUGAR/NO INSULIN DIAGNOSES: - Other care home (current) drug therapy - termite control service representative (current) use of insulin - Type 1 diabetes mellitus with hyperglycemia - Allergy status to other antibiotic agents - Hyperlipidemia, unspecified - Nausea - Allergy status to sulfonamides - Essential (primary) hypertension - Allergy status to narcotic agent - Allergy status to other drugs, medicaments and biological substances 05/26/2022 18:10 [facility] [place] [facility] [place] [facility] COMPLAINT: - RECTAL BLEEDING DIAGNOSES: - Type 2 diabetes mellitus without complications - Dysuria - Essential (primary) hypertension - Allergy status to other drugs, medicaments and biological substances - Allergy status to sulfonamides - care home (current) use of insulin - Allergy status to other antibiotic agents - Unspecified abdominal pain - Allergy status to narcotic agent 05/22/2022 22:48 [facility] [place] [facility] [place] TYPE: Emergency COMPLAINT: - CHEST PAIN DIAGNOSES: - Allergy status to other drugs, medicaments and biological substances - Other care home (current) drug therapy - care home (current) use of insulin - Other chest pain - Type 2 diabetes mellitus without complications - Allergy status to other antibiotic agents - Chest pain, unspecified - Allergy status to sulfonamides - Essential (primary) hypertension - Hyperlipidemia, unspecified - Allergy status to narcotic agent 04/21/2022 07:11 [facility] [place] TYPE: Emergency COMPLAINT: - ABD PAIN DIAGNOSES: - Epigastric pain - Allergy status to narcotic agent - Hyperlipidemia, unspecified - Hypertensive chronic kidney disease with stage 1 through stage 4 chronic kidney disease, or unspecified chronic kidney disease - Other care home (current) drug therapy - Pure hypercholesterolemia, unspecified - Allergy status to other antibiotic agents - Type 1 diabetes mellitus with diabetic chronic kidney disease - care home (current) use of insulin - Allergy status to other drugs, medicaments and biological substances - Allergy status to sulfonamides - Allergy status to penicillin 03/26/2022 06:58 [facility] [place] TYPE: Emergency [...] or unspecified chronic kidney disease - Other exterminator helper termite (current) drug therapy - Chronic kidney disease, stage 3b - Allergy status to sulfonamides - Allergy status to narcotic agent - Hyperlipidemia, unspecified - Allergy status to other antibiotic agents - Allergy status to penicillin - care home (current) use of insulin 03/19/2022 06:55 [facility] [place] TYPE: Emergency COMPLAINT: - ABD PAIN, VOMITING 03/16/2022 07:[address] [facility] [place] [facility]: Emergency COMPLAINT: - ABDOMINAL PAIN 03/12/2022 02:19 [facility] [place] [facility] [place] TYPE: Emergency COMPLAINT: - URINE PROBLEM DIAGNOSES: - Allergy status to narcotic agent - Other care home (current) drug therapy - care home (current) use of insulin - Dysuria - Candidiasis of vulva and vagina - Hyperlipidemia, unspecified - Allergy status to other drugs, medicaments and biological substances - Allergy status to other antibiotic agents - Essential (primary) hypertension - Allergy status to penicillin - Allergy status to sulfonamides - Type 2 diabetes mellitus without complications Plus 14 More Visits INPATIENT VISIT TRACKING (12 MO.) 06/21/2022 12:02 [facility] [place] TYPE: Observation COMPLAINT: - ACUTE ON CHRONIC KIDNEY DISEASE, UTI DIAGNOSES: - Allergy status to penicillin - Disorder of kidney and ureter, unspecified - Chronic kidney disease, unspecified - Allergy status to sulfonamides - Urinary tract infection, site not specified - Type 1 diabetes mellitus with hyperglycemia - Allergy status to other drugs, medicaments and biological substances - Type 1 diabetes mellitus with diabetic chronic kidney disease - Contact with and (suspected) exposure to COVID-19 - Allergy status to narcotic agent 03/19/2022 10:01 [facility] [place] TYPE: Medical Surgical COMPLAINT: - ACUTE ISCHEMIC COLITIS DIAGNOSES: - termite control service representative (current) use of opiate analgesic - termite control service representative (current) use of opiate analgesic - Personal history of Methicillin resistant Staphylococcus aureus infection - Hyperlipidemia, unspecified - Left sided colitis without complications - Acute kidney failure, unspecified - Vitamin D deficiency, unspecified - Chronic kidney disease, stage 3b - Allergy status to other antibiotic agents - Acute (reversible) ischemia of large intestine, extent unspecified - Presence of external hearing-aid - Acute kidney failure, unspecified - Allergy status to penicillin - Pure hypercholesterolemia, unspecified - care home (current) use of insulin - Hypertensive chronic kidney disease with stage 1 through stage 4 chronic kidney disease, or unspecified chronic kidney disease - Hyperlipidemia, unspecified - Contact with and (suspected) exposure to COVID-19 - Presence of external hearing-aid - Hypertensive chronic kidney disease with stage 1 through stage 4 chronic kidney disease, or unspecified chronic kidney disease - Allergy status to analgesic agent - Anemia in chronic kidney disease - Unspecified hearing loss, right ear - care home (current) use of insulin - Pure hypercholesterolemia, unspecified - Chronic kidney disease, stage 3b - Allergy status to penicillin - Vitamin D deficiency, unspecified - Allergy status to sulfonamides - Allergy status to analgesic agent - Type 1 diabetes mellitus with diabetic chronic kidney disease - Left sided colitis without complications - Other exterminator helper termite (current) drug therapy - Contact with and (suspected) exposure to COVID-19 - Allergy status to sulfonamides - Unspecified hearing loss, right ear - Anemia in chronic kidney disease - Allergy status to other antibiotic agents - Personal history of Methicillin resistant Staphylococcus aureus infection - Other care home (current) drug therapy - Type 1 diabetes mellitus with diabetic chronic kidney disease 03/16/2022 10:[address] [facility] [place] TYPE: Medical Surgical COMPLAINT: - ACUTE PANCREATITIS DIAGNOSES: - Acquired absence of other specified parts of digestive tract - Contact with and (suspected) exposure to COVID-19 - Allergy status to penicillin - Hypertensive chronic kidney disease with stage 1 through stage 4 chronic kidney disease, or unspecified chronic kidney disease - Idiopathic acute pancreatitis without necrosis or infection - Hyperlipidemia, unspecified - Allergy status to analgesic agent - Allergy status to analgesic agent - Allergy status to other drugs, medicaments and biological substances - Unspecified hearing loss, right ear - Allergy status to penicillin - Contact with and (suspected) exposure to COVID-19 - Unspecified hearing loss, right ear - Type 1 diabetes mellitus with diabetic chronic kidney disease - Allergy status to other antibiotic agents - Elevation of levels of liver transaminase levels - Other care home (current) drug therapy - Chronic kidney disease, stage 3b - Personal history of Methicillin resistant Staphylococcus aureus infection - Acute kidney failure, unspecified - Hypomagnesemia - Personal history of Methicillin resistant Staphylococcus aureus infection - Hypomagnesemia - Anemia in chronic kidney disease - Allergy status to sulfonamides - Other care home (current) drug therapy - Elevation of levels of liver transaminase levels - Pure hyperglyceridemia - Allergy status to other antibiotic agents - Other specified postprocedural states - Hypertensive chronic kidney disease with stage 1 through stage 4 chronic kidney disease, or unspecified chronic kidney disease - Allergy status to other drugs, medicaments and biological substances - Type 1 diabetes mellitus with diabetic chronic kidney disease - Acute kidney failure, unspecified - Hyperlipidemia, unspecified - Anemia in chronic kidney disease - Chronic kidney disease, stage 3b - Allergy status to sulfonamides - Pure hyperglyceridemia - Other specified postprocedural states - Acquired absence of other specified parts of digestive tract 01/26/2022 15[facility]43 [facility] DIAGNOSES: - Upper abdominal pain, unspecified - 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 - Chronic kidney disease, stage 3b - Acute pancreatitis without necrosis or infection, unspecified - Chronic kidney disease, stage 3a - Type 1 diabetes mellitus with hyperglycemia - Tachycardia, unspecified - care home (current) use of insulin 01/08/2022 15:43 [facility] DIAGNOSES: - 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 - Chronic kidney disease, stage 3b - termite control service representative (current) use of insulin - Acute pancreatitis without necrosis or infection, unspecified - Personal history of leukemia - Idiopathic acute pancreatitis without necrosis or infection [email or web address]
[2022-09-23] MEDS ORDERED: ONDANSETRON ODT4 MG PO (01:47)
[2022-09-23] MEDS ORDERED: MACROBID 100 M100 MG PO (01:47)
[2022-09-24] MEDS ORDERED: NAPROXEN500 MG PO (14:25)
== END 2022-09-23 02:15 | disposition home or self-care (01) ==
LOC: ED 21:54
DX: N39.0 Urinary tract infection, site not specified (principal); E11.9 Type 2 diabetes mellitus without complications; E78.5 Hyperlipidemia, unspecified; I10 Essential (primary) hypertension; Z88.2 Allergy status to sulfonamides; Z88.1 Allergy status to other antibiotic agents; Z88.0 Allergy status to penicillin; Z88.5 Allergy status to narcotic agent; Z79.899 Other long term (current) 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; Z79.4 Long term (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; Z20.822 Contact with and (suspected) exposure to COVID-19
CPT/HCPCS: 36415; 80053; 81001; 82010; 82803; 84703; 85025; 87077; 87088; 87186; 87502; 96361; 96374; 99284-25; A9270; J2405; J7121; U0003

== ENCOUNTER 2022-10-06 04:47 | Emergency (ER) | payer OTHER ==
[~2022-10-06] VITALS: Ht 149.9 cm; Wt 42.5 kg
[~2022-10-06 04:47] MED LIST changes: +MACROBID 100 M100 MG PO; +NAPROXEN500 MG PO
--- OUTSIDE RECORDS SUMMARY | 2022-10-06 04:52 | XMS ---
PreManage Notification: MONTSE GUTIERREZ Security Scheduling Agent Events 2 event(s) in the past 18 months Most recent security events: Elopement at [facility] 08/17/2022 17:10 - Patient eloped before treatment completed. - Patient with suicidal and/or homicidal ideations eloped. - Patient eloped with IV in place. Details: Patient LWBS. Elopement at [facility] 07/08/2022 22:03 - Patient eloped before treatment completed. - Patient with suicidal and/or homicidal ideations eloped. - Patient eloped with IV in place. Details: PATIENT LWBS CRITERIA MET - 6 ED Visits in 6 Months - [facility] - 2 Visits in 30 Days - [facility] - [facility] - Has Care Guidelines CARE PROVIDERS SAUL THORPE 03/19/2019-Current PHONE: Unknown [facility] 01/22/2021-[facility] PHONE: [phone] Jef has no Care Guidelines for this patient. Care History Medical/Surgical 09/24/2021 [facility] Contacted Gerri RUDDhand i blockerIpixhee-Vrdyfw-aqwnkemy of recent ED visits. They will follow up with the patient. 02/05/2021 [facility] - CHW CALLED AND SPOKE WITH TURBINE OPERATOR WALDEMAR- DISCUSSED RECENT ED VISITS- PRIMARY CARE PHYSICIAN REVIEWED PATIENT RECENT ED VISITS AND DID CONTACT PATIENT-THEY HAVE INSTRUCTED PATIENT TO CONTACT DIPPER AND DRIER DR HAMMOND TO SCHEDULE AND EARLIER APT IF POSSIBLE. PATIENT HAS TO MAKE THE APT FOR FOLLOW UP THE CLINIC CAN\T\#39;T SCHEDULE THE APT FOR THE PATIENT. - PATIENT HAS AN APT 02/06/[address] CHRISTENSEN. 01/25/2021 [facility] VOIDING TRIAL SCHEDULED WITH DR CHRISTENSEN UROLOGIST 02/06/21 [facility] (12 MO.) [facility]. TOTAL 34 NOTE: Visits indicate total known visits. ED/UCC VISIT TRACKING (12 MO.) 10/06/2022 04:49 [facility] [place] TYPE: Emergency COMPLAINT: - N/V POSS UTI 09/22/2022 21:55 [facility] [place] TYPE: Emergency COMPLAINT: - DIABETIC ISSUES DIAGNOSES: - Allergy status to narcotic agent - Essential (primary) hypertension - medical nurse (current) use of insulin - Urinary tract infection, site not specified - Other mail carrier and clerk (current) drug therapy - Allergy status to sulfonamides - Contact with and (suspected) exposure to COVID-19 - Hyperlipidemia, unspecified - Allergy status to other antibiotic agents - Unspecified abdominal pain - Allergy status to penicillin - Type 2 diabetes mellitus without complications 09/14/2022 10:28 [facility] [place] TYPE: Emergency COMPLAINT: - CHEST PAIN DIAGNOSES: - Other chest pain - Type 2 [...] - Allergy status to other antibiotic agents 08/17/2022 17:10 [facility] TYPE: Emergency COMPLAINT: - ABDOMINAL PAIN 08/03/2022 12:33 [facility] TYPE: Emergency COMPLAINT: - BLOOD SUGAR PROBLEM DIAGNOSES: - Hyperkalemia - Essential (primary) hypertension - [...] or unspecified chronic kidney disease - Other mail carrier and clerk (current) drug therapy - Hyperlipidemia, unspecified - Chronic kidney disease, unspecified - Allergy status to sulfonamides 07/31/2022 10:[address] [place] TYPE: Emergency DIAGNOSES: - Abdominal Pain - abd, back pain - Right upper quadrant pain 07/29/2022 08:41 [facility] [place] TYPE: Emergency COMPLAINT: - UPPER ABD PAIN, NAUSEA DIAGNOSES: - Allergy status to other drugs, medicaments and biological substances - Allergy status to narcotic agent - Allergy status to penicillin - Chronic kidney disease, unspecified - Hypertensive chronic kidney disease with stage 1 through stage 4 chronic kidney disease, or unspecified chronic kidney disease - residential (current) use of insulin - Other alf (current) drug therapy - Allergy status to other antibiotic agents - Allergy status to sulfonamides - Hyperlipidemia, unspecified - Type 2 diabetes mellitus with diabetic chronic kidney disease - Upper abdominal pain, unspecified 07/27/2022 00:25 [facility] [place] TYPE: Emergency COMPLAINT: - ABD PAIN DIAGNOSES: - Allergy status to other antibiotic agents - Right upper quadrant pain - Allergy status to narcotic agent - Hypertensive chronic kidney disease with stage 1 through stage 4 chronic kidney disease, or unspecified chronic kidney disease - Other mail carrier and clerk (current) drug therapy - Type 2 diabetes mellitus with diabetic chronic kidney disease - Type 2 diabetes mellitus with ketoacidosis without coma - Calculus of bile duct without cholangitis or cholecystitis without obstruction - Allergy status to sulfonamides - Allergy status to other drugs, medicaments and biological substances - Hyperlipidemia, unspecified - Chronic kidney disease, unspecified 07/18/2022 11:06 [facility] [place] TYPE: Emergency DIAGNOSES: - Unspecified abdominal pain - abd pain - Abdominal Pain 07/12/2022 11:28 [facility] [place] TYPE: Emergency DIAGNOSES: - Calculus of gallbladder without cholecystitis without obstruction - Abdominal Pain - Nausea - back,pain,abd pain, chronic kidney pain - Calculus of bile duct without cholangitis or cholecystitis without obstruction 07/08/2022 22:03 [facility] TYPE: Emergency COMPLAINT: - URINE PROBLEM 07/03/2022 05:56 [facility] TYPE: Emergency COMPLAINT: - ABD PAIN, NAUSEA DIAGNOSES: - medical nurse (current) use of insulin - Other alf (current) drug therapy - Contact with and [...] drugs, medicaments and biological substances - Other mail carrier and clerk (current) drug therapy - medical nurse (current) use of insulin - Type 1 diabetes mellitus with hyperglycemia - Allergy status to other antibiotic agents 05/26/2022 18:10 [facility] [place] TYPE: Emergency COMPLAINT: - RECTAL BLEEDING DIAGNOSES: - Allergy status to other drugs, medicaments and biological substances - Allergy status to sulfonamides - residential (current) use of insulin - Allergy status [...] drugs, medicaments and biological substances - Other alf (current) drug therapy - residential (current) use of insulin - Other chest pain 04/21/2022 07:11 [facility] [place] TYPE: Emergency COMPLAINT: - ABD PAIN DIAGNOSES: - Pure hypercholesterolemia, unspecified - Allergy status to other antibiotic agents - Type 1 diabetes mellitus with diabetic chronic kidney disease - medical nurse (current) use of insulin - Allergy status to other drugs, medicaments and biological substances - Allergy status to sulfonamides - Allergy status to penicillin - Epigastric pain - Allergy status to narcotic agent - Hyperlipidemia, unspecified - Hypertensive chronic kidney disease with stage 1 through stage 4 chronic kidney disease, or unspecified chronic kidney disease - Other mail carrier and clerk (current) drug therapy 03/26/2022 06:58 [facility] [place] TYPE: Emergency COMPLAINT: - CHEST PAIN DIAGNOSES: - Other mail carrier and clerk (current) drug therapy - Chronic kidney disease, stage 3b - Allergy status to sulfonamides - Allergy status to narcotic agent - Hyperlipidemia, unspecified - Allergy status to other antibiotic agents - Allergy status to penicillin - residential (current) use of insulin - Type 2 diabetes mellitus with diabetic chronic kidney disease - Allergy status to other drugs, medicaments and biological substances - Contact with and (suspected) exposure to COVID-19 - Chest pain, unspecified - Hypertensive chronic kidney disease with stage 1 through stage 4 chronic kidney disease, or unspecified chronic kidney disease 03/19/2022 06:55 [facility] [place] TYPE: Emergency COMPLAINT: - ABD PAIN, VOMITING 03/16/2022 07:38 [facility] [place] TYPE: Emergency COMPLAINT: - ABDOMINAL PAIN Plus 14 More Visits INPATIENT VISIT TRACKING [...] - Unspecified hearing loss, right ear - residential (current) use of insulin - Pure hypercholesterolemia, unspecified - Chronic kidney disease, stage 3b - Allergy status to penicillin - Vitamin D deficiency, unspecified - Allergy status to sulfonamides - Allergy status to analgesic agent - Type 1 diabetes mellitus with diabetic chronic kidney disease - Left sided colitis without complications - Other mail carrier and clerk (current) drug therapy - Allergy status to sulfonamides - Contact with and (suspected) exposure to COVID-19 - Unspecified hearing loss, right ear - Anemia in chronic kidney disease - Allergy status to other antibiotic agents - Type 1 diabetes mellitus with diabetic chronic kidney disease - Personal history of Methicillin resistant Staphylococcus aureus infection - Other alf (current) drug therapy - residential (current) use of opiate analgesic - medical nurse (current) use of opiate analgesic - Personal history of Methicillin resistant Staphylococcus aureus infection - Hyperlipidemia, unspecified - Left sided colitis without complications - Acute kidney failure, unspecified - Vitamin D deficiency, unspecified - Chronic kidney disease, stage 3b - Allergy status to other antibiotic agents - Acute (reversible) ischemia of large intestine, extent unspecified - Acute kidney failure, unspecified - Presence of external hearing-aid - Allergy status to penicillin - Pure hypercholesterolemia, unspecified - residential (current) use of insulin - Hyperlipidemia, unspecified - Hypertensive chronic kidney disease with stage 1 through stage 4 chronic kidney disease, or unspecified chronic kidney disease 03/16/2022 10:[address] [...] - Allergy status to sulfonamides - Other alf (current) drug therapy - Elevation of levels [...] chronic kidney disease - Hyperlipidemia, unspecified - Acute kidney failure, unspecified - Anemia in chronic kidney disease - Chronic kidney disease, stage 3b - Allergy status to sulfonamides - Acquired absence of other specified parts of digestive tract - Pure hyperglyceridemia - Other specified postprocedural [...] - Unspecified hearing loss, right ear - Contact with and (suspected) exposure to COVID-19 - Allergy status to penicillin - Unspecified hearing loss, right ear - Type 1 diabetes mellitus with diabetic chronic kidney disease - Allergy status to other antibiotic agents - Other mail carrier and clerk (current) drug therapy - Elevation of levels of liver transaminase levels 01/26/2022 15:43 [facility] TYPE: Surgical Services DIAGNOSES: - Acute pancreatitis without necrosis or infection, unspecified - Chronic kidney disease, stage 3a - Type 1 diabetes mellitus with hyperglycemia - Tachycardia, unspecified - medical nurse (current) use of insulin - Upper abdominal pain, unspecified - 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 - Chronic kidney disease, stage 3b 01/08/2022 15:43 [facility] TYPE: Medical Surgical DIAGNOSES: - medical nurse (current) use of insulin - Acute pancreatitis without necrosis or infection, unspecified - Personal history of leukemia - Idiopathic acute pancreatitis without necrosis or infection - 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 - Chronic kidney disease, stage 3b [email or web address]
[2022-10-06] MEDS ORDERED: ONDANSETRON ODT4 MG PO (06:17)
[2022-10-06] MEDS ORDERED: DIFLUCAN150 MG PO (06:17)
== END 2022-10-06 06:50 | disposition home or self-care (01) ==
LOC: ED 04:47
DX: R30.0 Dysuria (principal); I12.9 Hypertensive chronic kidney disease with stage 1 through stage 4 chronic kidney disease, or unspecified chronic kidney disease; E11.22 Type 2 diabetes mellitus with diabetic chronic kidney disease; N18.9 Chronic kidney disease, unspecified; E78.5 Hyperlipidemia, unspecified; Z20.822 Contact with and (suspected) exposure to COVID-19; Z88.2 Allergy status to sulfonamides; Z88.8 Allergy status to other drugs, medicaments and biological substances; Z88.1 Allergy status to other antibiotic agents; Z88.0 Allergy status to penicillin; Z88.5 Allergy status to narcotic agent; Z79.899 Other long term (current) 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; Z79.4 Long term (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
CPT/HCPCS: 36415; 80048; 81001; 82010; 82803; 84703; 85025; 87502; 99284; A9270; C9803; U0003

== ENCOUNTER 2022-10-10 22:40 | Emergency (ER) | payer OTHER ==
[~2022-10-10] VITALS: Ht 149.9 cm; Wt 42.5 kg
--- OUTSIDE RECORDS SUMMARY | 2022-10-10 22:42 | XMS ---
PreManage Notification: MONTSE GUTIERREZ Security Conventional Machinist Events 2 event(s) in the past 18 months Most recent security events: Elopement at [facility] 08/17/2022 17:10 - Patient eloped before treatment completed. - Patient with suicidal and/or homicidal ideations eloped. - Patient eloped with IV in place. Details: Patient LWBS. Elopement at [facility] 07/08/2022 22:03 - Patient eloped before treatment completed. - Patient with suicidal and/or homicidal ideations eloped. - Patient eloped with IV in place. Details: PATIENT LWBS CRITERIA MET - 6 ED Visits in 6 Months - - Has Care Guidelines - - 2 Visits in 30 Days - [facility] CARE PROVIDERS SAUL THORPE Physician 03/19/2019-Current PHONE: Unknown [facility] 01/22/2021-[facility] PHONE: [phone] Jef has no Care Guidelines for this patient. Care History Medical/Surgical 09/24/2021 [facility] Contacted Gerri RUDDchair inspector and [id number]-[id number] of recent ED visits. They will follow up with the patient. 02/05/2021 [facility] - CHW CALLED AND SPOKE WITH ENFORCEMENT SAFETY OFFICER WALDEMAR- DISCUSSED RECENT ED VISITS- PRIMARY CARE PHYSICIAN REVIEWED PATIENT RECENT ED VISITS AND DID CONTACT PATIENT-THEY HAVE INSTRUCTED PATIENT TO CONTACT TALENT ACQUISITION ADMINISTRATOR DR HAMMOND TO SCHEDULE AND EARLIER APT IF POSSIBLE. PATIENT HAS TO MAKE THE APT FOR FOLLOW UP THE CLINIC CAN\T\#39;T SCHEDULE THE APT FOR THE PATIENT. - PATIENT HAS AN APT 02/06/[address] CHRISTENSEN. 01/25/2021 [facility] VOIDING TRIAL SCHEDULED WITH DR CHRISTENSEN UROLOGIST 02/06/21 [facility] VISIT COUNT (12 MO.) 5 [facility] 30 [facility]. TOTAL 35 NOTE: Visits indicate total known visits. ED/UCC VISIT TRACKING (12 MO.) 10/10/2022 22:40 [facility] [place] TYPE: Emergency COMPLAINT: - ABD PAIN, BLOOD SUGAR PROBLEM 10/06/2022 04:49 [facility] [place] TYPE: Emergency COMPLAINT: - N/V POSS UTI DIAGNOSES: - penitentiary (current) use of insulin - Dysuria - Chronic kidney disease, unspecified - Allergy status to sulfonamides - Other senior care (current) drug therapy - Hypertensive chronic kidney disease with stage 1 through stage 4 chronic kidney disease, or unspecified chronic kidney disease - Allergy status to penicillin - Type 2 diabetes mellitus with diabetic chronic kidney disease - Allergy status to narcotic agent - Hyperlipidemia, unspecified - Allergy status to other antibiotic agents - Contact with and (suspected) exposure to COVID-19 - Allergy status to other drugs, medicaments and biological substances 09/22/2022 21:55 [facility] [place] TYPE: Emergency COMPLAINT: - DIABETIC ISSUES DIAGNOSES: - Allergy status to penicillin - Type 2 diabetes mellitus without complications - Allergy status to narcotic agent - Essential (primary) hypertension - crossing gateman (current) use of insulin - Urinary tract infection, site not specified - Other sales effectiveness manager (current) drug therapy - Allergy status to sulfonamides - Contact with and (suspected) exposure to COVID-19 - Hyperlipidemia, unspecified - Allergy status to other antibiotic agents - Unspecified abdominal pain 09/14/2022 10:28 [facility] [place] TYPE: Emergency COMPLAINT: - CHEST PAIN DIAGNOSES: - Chronic kidney disease, unspecified [...] unspecified chronic kidney disease - Hyperlipidemia, unspecified 08/17/2022 17:10 [facility] [place] TYPE: Emergency COMPLAINT: - ABDOMINAL PAIN 08/03/2022 12:33 [facility] [place] TYPE: Emergency COMPLAINT: - BLOOD SUGAR PROBLEM DIAGNOSES: - Chronic kidney disease, unspecified - [...] unspecified chronic kidney disease - Other senior care (current) drug therapy - Hyperlipidemia, unspecified 07/31/2022 10:34 [facility] [place] TYPE: Emergency DIAGNOSES: - Right upper quadrant pain - Abdominal Pain - abd, back pain 07/29/2022 08:41 [facility] [place] TYPE: Emergency COMPLAINT: - UPPER ABD PAIN, NAUSEA DIAGNOSES: - Type 2 diabetes mellitus with diabetic chronic kidney disease - Upper abdominal pain, unspecified - Allergy status to other drugs, medicaments and biological substances - Allergy status to narcotic agent - Allergy status to penicillin - Chronic kidney disease, unspecified - Hypertensive chronic kidney disease with stage 1 through stage 4 chronic kidney disease, or unspecified chronic kidney disease - crossing gateman (current) use of insulin - Other senior care (current) drug therapy - Allergy status to other antibiotic agents - Allergy status to sulfonamides - Hyperlipidemia, unspecified 07/27/2022 00:25 [facility] [place] TYPE: Emergency COMPLAINT: - ABD PAIN DIAGNOSES: - Hyperlipidemia, unspecified - Chronic kidney disease, unspecified - Allergy status to other antibiotic agents - Right upper quadrant pain - Allergy status to narcotic agent - Hypertensive chronic kidney disease with stage 1 through stage 4 chronic kidney disease, or unspecified chronic kidney disease - Other sales effectiveness manager (current) drug therapy - Type 2 diabetes mellitus with diabetic chronic kidney disease - Type 2 diabetes mellitus with ketoacidosis without coma - Calculus of bile duct without cholangitis or cholecystitis without obstruction - Allergy status to sulfonamides - Allergy status to other drugs, medicaments and biological substances 07/18/2022 11:[facility] DIAGNOSES: - Abdominal Pain - Unspecified abdominal pain - abd pain 07/12/2022 11:28 [facility] [place] TYPE: Emergency DIAGNOSES: - Calculus of bile duct without cholangitis or cholecystitis without obstruction - Calculus of gallbladder without cholecystitis without obstruction - Abdominal Pain - Nausea - back,pain,abd pain, chronic kidney pain 07/08/2022 22:03 [facility] [place] TYPE: Emergency COMPLAINT: - URINE PROBLEM 07/03/2022 05:56 [facility] [place] TYPE: Emergency COMPLAINT: - ABD PAIN, NAUSEA DIAGNOSES: - Allergy status to narcotic agent - Allergy status to other drugs, medicaments and biological substances - crossing gateman (current) use of insulin - Other senior care (current) drug therapy - Contact with and [...] kidney disease - Allergy status to sulfonamides 06/21/2022 12:01 [facility] [place] TYPE: Emergency COMPLAINT: - ABD PAIN, R FLANK PAIN 06/18/2022 11:42 [facility] [place] TYPE: Emergency COMPLAINT: - ABD PAIN, HIGH SUGAR/NO INSULIN DIAGNOSES: - Type 1 diabetes mellitus with hyperglycemia - Allergy status to other antibiotic agents - Hyperlipidemia, unspecified - Nausea - Allergy status to sulfonamides - Essential (primary) hypertension - Allergy status to narcotic agent - Allergy status to other drugs, medicaments and biological substances - Other senior care (current) drug therapy - penitentiary (current) use of insulin 05/26/2022 18:10 [facility] [place] TYPE: Emergency COMPLAINT: - RECTAL BLEEDING DIAGNOSES: - Essential (primary) hypertension - Allergy status to other drugs, medicaments and biological substances - Allergy status to sulfonamides - penitentiary (current) use of insulin - Allergy status to other antibiotic agents - Unspecified abdominal pain - Allergy status to narcotic agent - Type 2 diabetes mellitus without complications - Dysuria 05/22/2022 22:48 [facility] [place] TYPE: Emergency COMPLAINT: - CHEST PAIN DIAGNOSES: - penitentiary (current) use of insulin - Other chest pain - Type 2 diabetes mellitus without complications - Allergy status to other antibiotic agents - Chest pain, unspecified - Allergy status to sulfonamides - Essential (primary) hypertension - Hyperlipidemia, unspecified - Allergy status to narcotic agent - Allergy status to other drugs, medicaments and biological substances - Other senior care (current) drug therapy 04/21/2022 07:11 [facility] [place] TYPE: Emergency COMPLAINT: - ABD PAIN DIAGNOSES: - Hypertensive chronic kidney disease with stage 1 through stage 4 chronic kidney disease, or unspecified chronic kidney disease - Other sales effectiveness manager (current) drug therapy - Pure hypercholesterolemia, unspecified - Allergy status to other antibiotic agents - Type 1 diabetes mellitus with diabetic chronic kidney disease - penitentiary (current) use of insulin - Allergy status to other drugs, medicaments and biological substances - Allergy status to sulfonamides - Allergy status to penicillin - Epigastric pain - Allergy status to narcotic agent - Hyperlipidemia, unspecified 03/26/2022 06:58 [facility] [place] TYPE: Emergency COMPLAINT: - CHEST PAIN DIAGNOSES: - Chest pain, unspecified - Hypertensive chronic kidney disease with stage 1 through stage 4 chronic kidney disease, or unspecified chronic kidney disease - Other senior care (current) drug therapy - Chronic kidney disease, stage 3b - Allergy status to sulfonamides - Allergy status to narcotic agent - Hyperlipidemia, unspecified - Allergy status to other antibiotic agents - Allergy status to penicillin - penitentiary (current) use of insulin - Type 2 diabetes mellitus with diabetic chronic kidney disease - Allergy status to other drugs, medicaments and biological substances - Contact with and (suspected) exposure to COVID-19 03/19/2022 06:55 [facility] [place] TYPE: Emergency COMPLAINT: - ABD PAIN, VOMITING Plus 15 More Visits INPATIENT VISIT TRACKING (12 MO.) 06/21/2022 12:02 [facility] [place] TYPE: Observation COMPLAINT: - ACUTE ON CHRONIC KIDNEY DISEASE, UTI DIAGNOSES: - Chronic kidney disease, unspecified - [...] - Disorder of kidney and ureter, unspecified 03/19/2022 10:01 [facility] [place] TYPE: Medical Surgical COMPLAINT: - ACUTE ISCHEMIC COLITIS DIAGNOSES: - Pure hypercholesterolemia, unspecified - penitentiary (current) [...] Left sided colitis without complications - Other sales effectiveness manager (current) drug therapy - Type 1 diabetes mellitus with diabetic chronic kidney disease - Contact with and (suspected) exposure to COVID-19 - Allergy status to sulfonamides - Anemia in chronic kidney disease - Allergy status to other antibiotic agents - Unspecified hearing loss, right ear - Other sales effectiveness manager (current) drug therapy - Type 1 diabetes mellitus with diabetic chronic kidney disease - Personal history of Methicillin resistant Staphylococcus aureus infection - crossing gateman (current) use of opiate analgesic - crossing gateman (current) use of opiate analgesic - Hyperlipidemia, [...] external hearing-aid - Acute kidney failure, unspecified 03/16/2022 10:31 [facility] [place] TYPE: Medical Surgical COMPLAINT: - ACUTE PANCREATITIS DIAGNOSES: - Type 1 diabetes mellitus with diabetic chronic kidney disease - Allergy status to other antibiotic agents - Unspecified hearing loss, right ear - Elevation of levels of liver transaminase levels - Other sales effectiveness manager (current) drug therapy - Personal history of Methicillin resistant Staphylococcus aureus infection - Acute kidney failure, unspecified - Chronic kidney disease, stage 3b - Personal history of Methicillin resistant Staphylococcus aureus infection - Hypomagnesemia - Hypomagnesemia - Allergy status to sulfonamides - Anemia in chronic kidney disease - Elevation of levels of liver transaminase levels - Pure hyperglyceridemia - Other senior care (current) drug therapy - Other specified postprocedural [...] Contact with and (suspected) exposure to COVID-19 01/26/2022 15:43 [facility] [place] TYPE: Surgical Services DIAGNOSES: - Chronic kidney disease, stage 3b - Acute pancreatitis without necrosis or infection, unspecified - Chronic kidney disease, stage 3a - Type 1 diabetes mellitus with hyperglycemia - Tachycardia, unspecified - penitentiary (current) use of insulin - Upper abdominal pain, unspecified - 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 [facility]08[facility]2022 15[facility] DIAGNOSES: - Chronic kidney disease, stage 3b - crossing gateman (current) use of insulin - Acute pancreatitis without necrosis or infection, unspecified - Personal history of leukemia - Idiopathic acute pancreatitis without necrosis or infection - 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 [id number]
[2022-10-11] MEDS ORDERED: FREESTYLE LIBR1 EAC4 SUB-Q (00:29)
--- NOTE | 2022-10-11 07:48 | EKG ---
[facility] [address] [place], [place] [address] Signed Normal sinus rhythm Normal ECG When compared with ECG of 14-SEP-2022 10:39, No significant change was found Confirmed by GUTIERREZ RAIN MD ([id number]) on 10/11/2022 7:47:48 AM Electronically Signed By: GUTIERREZ RAIN MD 10/11/22 0748 PATIENT NAME: GUILLERMO GUTIERREZSABRINA KAHN Electrocardiogram DATE OF : 89 PHYSICIAN: GUTIERREZ RAIN MD REPORT #: [id number] REPORT IS CONFIDENTIAL AND NOT TO BE RELEASED WITHOUT AUTHORIZATION
== END 2022-10-11 02:10 | disposition home or self-care (01) ==
LOC: ED 22:40
DX: E10.65 Type 1 diabetes mellitus with hyperglycemia (principal); I12.9 Hypertensive chronic kidney disease with stage 1 through stage 4 chronic kidney disease, or unspecified chronic kidney disease; E10.22 Type 1 diabetes mellitus with diabetic chronic kidney disease; N18.9 Chronic kidney disease, unspecified; E78.5 Hyperlipidemia, unspecified; Z88.2 Allergy status to sulfonamides; Z88.8 Allergy status to other drugs, medicaments and biological substances; Z88.1 Allergy status to other antibiotic agents; Z88.5 Allergy status to narcotic agent; Z79.899 Other long term (current) 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; Z79.4 Long term (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
CPT/HCPCS: 36415; 80053; 81001; 82010; 83690; 85025; 93005; 93010; 96361; 96374; 99285-25; J1815; J1885; J7030

== ENCOUNTER 2022-10-30 01:11 | Emergency (ER) | payer OTHER ==
[~2022-10-30] VITALS: Ht 149.9 cm; Wt 42.6 kg
[~2022-10-30 01:11] MED LIST changes: +FREESTYLE LIBR1 EAC4 SUB-Q
--- OUTSIDE RECORDS SUMMARY | 2022-10-30 05:04 | XMS ---
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 - Patient with suicidal and/or homicidal ideations eloped. - Patient eloped with IV in place. Details: Patient LWBS. Elopement at [facility] 07/08/2022 22:03 - Patient eloped before treatment completed. - Patient with suicidal and/or homicidal ideations eloped. - Patient eloped with IV in place. Details: PATIENT LWBS CRITERIA MET - [facility] C[facility] PROVIDERS SAUL THORPE Physician 03/19/2019-Current PHONE: Unknown [facility] 01/22/2021-[facility] PHONE: [phone] Jef has no Care Guidelines for this patient. Care History Medical/Surgical 09/24/2021 [facility] Contacted [employer] jump roll operatorSrhxkdd-Xyyild-tfrbfyia of recent ED visits. They will follow up with the patient. 02/05/2021 [facility] - [facility] CALLED AND SPOKE WITH MANAGER SOCIAL WORK WALDEMAR- DISCUSSED RECENT ED VISITS- PRIMARY CARE PHYSICIAN REVIEWED PATIENT RECENT ED VISITS AND DID CONTACT PATIENT-THEY HAVE INSTRUCTED PATIENT TO CONTACT V BELT CURER DR HAMMOND TO SCHEDULE AND EARLIER APT IF POSSIBLE. PATIENT HAS TO MAKE THE APT FOR FOLLOW UP THE CLINIC CAN\T\#39;T SCHEDULE THE APT FOR THE PATIENT. - PATIENT HAS AN APT 02/06/[address] CHRISTENSEN. 01/25/2021 [facility] VOIDING TRIAL SCHEDULED WITH DR CHRISTENSEN UROLOGIST 02/06/21 E[facility] VISIT COUNT (12 MO.) 5 [facility] 30 [facility]. TOTAL 35 NOTE: Visits indicate total known visits. ED/UCC VISIT TRACKING (12 MO.) 10/30/2022 01:11 [facility] [place] TYPE: Emergency COMPLAINT: - CHEST TIGHTNESS,LIGHT HEADED 10/10/2022 22:40 [facility] [place] TYPE: Emergency COMPLAINT: - ABD PAIN, BLOOD SUGAR PROBLEM DIAGNOSES: - Allergy status to sulfonamides - Chronic kidney disease, unspecified - Type 1 diabetes mellitus with hyperglycemia - Hyperlipidemia, unspecified - Other half-way (current) drug therapy - half-way (current) use of insulin - Unspecified abdominal pain - Allergy status to other drugs, medicaments and biological substances - Hypertensive chronic kidney disease with stage 1 through stage 4 chronic kidney disease, or unspecified chronic kidney disease - Allergy status to narcotic agent - Allergy status to other antibiotic agents - Type 1 diabetes mellitus with diabetic chronic kidney disease 10/06/2022 04:49 [facility] [place] TYPE: Emergency COMPLAINT: - N/V POSS UTI DIAGNOSES: - Allergy status to sulfonamides - Other half-way (current) drug therapy - Hypertensive chronic kidney [...] other drugs, medicaments and biological substances - rat exterminator (current) use of insulin - Dysuria - Chronic kidney disease, unspecified 09/22/2022 21:55 [facility] [place] TYPE: Emergency COMPLAINT: - DIABETIC ISSUES DIAGNOSES: - Essential (primary) hypertension - rat exterminator (current) use of insulin - Urinary tract infection, site not specified - Other half-way (current) drug therapy - Allergy status to sulfonamides - Contact with and (suspected) exposure to COVID-19 - Hyperlipidemia, unspecified - Allergy status to other antibiotic agents - Unspecified abdominal pain - Allergy status to penicillin - Type 2 diabetes mellitus without complications - Allergy status to narcotic agent 09/14/2022 10:28 [facility] [place] TYPE: Emergency COMPLAINT: - CHEST PAIN DIAGNOSES: - Type 2 diabetes mellitus with ketoacidosis [...] other antibiotic agents - Other chest pain 08/17/2022 17:10 [facility] TYPE: Emergency COMPLAINT: - ABDOMINAL PAIN 08/03/2022 12:33 [facility] TYPE: Emergency COMPLAINT: - BLOOD SUGAR PROBLEM DIAGNOSES: - Essential (primary) hypertension - Type 2 [...] or unspecified chronic kidney disease - Other long wall mining machine tender (current) drug therapy - Hyperlipidemia, unspecified - Chronic kidney disease, unspecified - Allergy status to sulfonamides - Hyperkalemia 07/31/2022 10:34 [facility] [place] TYPE: Emergency DIAGNOSES: - abd, back pain - Right upper quadrant pain - Abdominal Pain 07/29/2022 08:41 [facility] [place] TYPE: Emergency COMPLAINT: - UPPER ABD PAIN, NAUSEA DIAGNOSES: - Allergy status to narcotic agent - Allergy status to penicillin - Chronic kidney disease, unspecified - Hypertensive chronic kidney disease with stage 1 through stage 4 chronic kidney disease, or unspecified chronic kidney disease - half-way (current) use of insulin - Other half-way (current) drug therapy - Allergy status to other antibiotic agents - Allergy status to sulfonamides - Hyperlipidemia, unspecified - Type 2 diabetes mellitus with diabetic chronic kidney disease - Upper abdominal pain, unspecified - Allergy status to other drugs, medicaments and biological substances 07/27/2022 00:25 [facility] TYPE: Emergency COMPLAINT: - ABD PAIN DIAGNOSES: - Right upper quadrant pain - Allergy status to narcotic agent - Hypertensive chronic kidney disease with stage 1 through stage 4 chronic kidney disease, or unspecified chronic kidney disease - Other long wall mining machine tender (current) drug therapy - Type 2 [...] - Allergy status to other antibiotic agents 07/18/2022 11:06 [facility] [place] TYPE: Emergency DIAGNOSES: - abd pain - Abdominal Pain - Unspecified abdominal pain 07[facility]22 [facility] DIAGNOSES: - Abdominal Pain - Nausea - back,pain,abd pain, chronic kidney pain - Calculus of bile duct without cholangitis or cholecystitis without obstruction - Calculus of gallbladder without cholecystitis without obstruction 07/08/2022 22:03 [facility] TYPE: Emergency COMPLAINT: - URINE PROBLEM 07/03/2022 05:56 [facility] TYPE: Emergency COMPLAINT: - ABD PAIN, NAUSEA DIAGNOSES: - Other long wall mining machine tender (current) drug therapy - Contact with and [...] other drugs, medicaments and biological substances - half-way (current) use of insulin 06/21/2022 12:01 [facility] [place] TYPE: Emergency COMPLAINT: - ABD PAIN, R FLANK PAIN 06/18/2022 11:42 [facility] [place] TYPE: Emergency COMPLAINT: - ABD PAIN, HIGH SUGAR/NO INSULIN DIAGNOSES: - Nausea - Allergy status to sulfonamides - Essential (primary) hypertension - Allergy status to narcotic agent - Allergy status to other drugs, medicaments and biological substances - Other half-way (current) drug therapy - rat exterminator (current) use of insulin - Type 1 diabetes mellitus with hyperglycemia - Allergy status to other antibiotic agents - Hyperlipidemia, unspecified 05/26/2022 18:10 [facility] [place] TYPE: Emergency COMPLAINT: - RECTAL BLEEDING DIAGNOSES: - Allergy status to sulfonamides - rat exterminator (current) use of insulin - Allergy status to other antibiotic agents - Unspecified abdominal pain - Allergy status to narcotic agent - Type 2 diabetes mellitus without complications - Dysuria - Essential (primary) hypertension - Allergy status to other drugs, medicaments and biological substances 05/22/2022 22:48 [facility] [place] TYPE: Emergency COMPLAINT: - CHEST PAIN DIAGNOSES: - Allergy status to other antibiotic agents - Chest pain, unspecified - Allergy status to sulfonamides - Essential (primary) hypertension - Hyperlipidemia, unspecified - Allergy status to narcotic agent - Allergy status to other drugs, medicaments and biological substances - Other long wall mining machine tender (current) drug therapy - rat exterminator (current) use of insulin - Other chest pain - Type 2 diabetes mellitus without complications 04/21/2022 07:11 [facility] [place] TYPE: Emergency COMPLAINT: - ABD PAIN DIAGNOSES: - Allergy status to other antibiotic agents - Type 1 diabetes mellitus with diabetic chronic kidney disease - half-way (current) use of insulin - Allergy status to other drugs, medicaments and biological substances - Allergy status to sulfonamides - Allergy status to penicillin - Epigastric pain - Allergy status to narcotic agent - Hyperlipidemia, unspecified - Hypertensive chronic kidney disease with stage 1 through stage 4 chronic kidney disease, or unspecified chronic kidney disease - Other half-way (current) drug therapy - Pure hypercholesterolemia, unspecified 03/26/2022 06:58 [facility] [place] TYPE: Emergency COMPLAINT: - CHEST PAIN DIAGNOSES: - Chronic kidney disease, stage 3b - Allergy status to sulfonamides - Allergy status to narcotic agent - Hyperlipidemia, unspecified - Allergy status to other antibiotic agents - Allergy status to penicillin - rat exterminator (current) use of insulin - Type 2 diabetes mellitus with diabetic chronic kidney disease - Allergy status to other drugs, medicaments and biological substances - Contact with and (suspected) exposure to COVID-19 - Chest pain, unspecified - Hypertensive chronic kidney disease with stage 1 through stage 4 chronic kidney disease, or unspecified chronic kidney disease - Other half-way (current) drug therapy Plus 15 More Visits INPATIENT VISIT TRACKING (12 MO.) 06/21/2022 12:02 [facility] [place] TYPE: Observation COMPLAINT: - ACUTE ON CHRONIC KIDNEY DISEASE, UTI DIAGNOSES: - Type 1 diabetes mellitus with [...] - Urinary tract infection, site not specified 03/19/2022 10:01 [facility] [place] TYPE: Medical Surgical COMPLAINT: - ACUTE ISCHEMIC COLITIS DIAGNOSES: - Allergy status to analgesic agent - Anemia in chronic kidney disease - Unspecified hearing loss, right ear - rat exterminator (current) use of insulin - Pure hypercholesterolemia, unspecified - Chronic kidney disease, stage 3b - Allergy status to penicillin - Vitamin D deficiency, unspecified - Allergy status to sulfonamides - Allergy status to analgesic agent - Type 1 diabetes mellitus with diabetic chronic kidney disease - Left sided colitis without complications - Other long wall mining machine tender (current) drug therapy - Allergy status to sulfonamides - Contact with and (suspected) exposure to COVID-19 - Unspecified hearing loss, right ear - Anemia in chronic kidney disease - Allergy status to other antibiotic agents - Personal history of Methicillin resistant Staphylococcus aureus infection - Other long wall mining machine tender (current) drug therapy - Type 1 diabetes mellitus with diabetic chronic kidney disease - rat exterminator (current) use of opiate analgesic - half-way (current) use of opiate analgesic - Personal [...] to penicillin - Pure hypercholesterolemia, unspecified - half-way (current) use of insulin - Hypertensive chronic [...] Surgical COMPLAINT: - ACUTE PANCREATITIS DIAGNOSES: - Hypomagnesemia - Personal history of Methicillin resistant Staphylococcus aureus infection - Hypomagnesemia - Anemia in chronic kidney disease - Allergy status to sulfonamides - Other long wall mining machine tender (current) drug therapy - Elevation of levels [...] other specified parts of digestive tract - Acquired absence of other specified parts [...] levels of liver transaminase levels - Other long wall mining machine tender (current) drug therapy - Chronic kidney disease, stage 3b - Personal history of Methicillin resistant Staphylococcus aureus infection - Acute kidney failure, unspecified 01/26/2022 15:43 [facility] [place] TYPE: Surgical Services DIAGNOSES: - Chronic kidney disease, stage 3a - Type 1 diabetes mellitus with hyperglycemia - Tachycardia, unspecified - half-way (current) use of insulin - Upper abdominal pain, unspecified - 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 - Chronic kidney disease, stage 3b - Acute pancreatitis without necrosis or infection, unspecified 01/08/2022 15:43 [facility] [place] TYPE: Medical Surgical DIAGNOSES: - Acute pancreatitis without necrosis or infection, unspecified - Personal history of leukemia - Idiopathic acute pancreatitis without necrosis or infection - 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 - Chronic kidney disease, stage 3b - rat exterminator (current) use of insulin [email or web address]
--- NOTE | 2022-10-30 07:15 | EKG ---
[facility] [address] [place], [place] [address] Signed Normal sinus rhythm Normal ECG When compared with ECG of 10-OCT-2022 23:16, No significant change was found Confirmed by GUTIERREZ RAIN MD ([id number]) on 10/30/2022 7:15:32 AM Electronically Signed By: GUTIERREZ RAIN MD 10/30/22 0715 PATIENT NAME: GUILLERMO GUTIERREZSABRINA KAHN Electrocardiogram DATE OF : 89 PHYSICIAN: GUTIERREZ RAIN MD REPORT #: [id number] REPORT IS CONFIDENTIAL AND NOT TO BE RELEASED WITHOUT AUTHORIZATION
== END 2022-10-30 08:22 | disposition home or self-care (01) ==
LOC: ED 01:11
DX: R07.2 Precordial pain (principal); E87.5 Hyperkalemia; I12.9 Hypertensive chronic kidney disease with stage 1 through stage 4 chronic kidney disease, or unspecified chronic kidney disease; E11.22 Type 2 diabetes mellitus with diabetic chronic kidney disease; N18.9 Chronic kidney disease, unspecified; E11.10 Type 2 diabetes mellitus with ketoacidosis without coma; E78.00 Pure hypercholesterolemia, unspecified; Z88.2 Allergy status to sulfonamides; Z88.8 Allergy status to other drugs, medicaments and biological substances; Z88.1 Allergy status to other antibiotic agents; Z88.5 Allergy status to narcotic agent; Z79.4 Long term (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; Z79.899 Other long term (current) 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
CPT/HCPCS: 36415; 71045; 80053; 81001; 83735; 84484; 84703; 85025; 85379; 93005; 93010; 96361; 96374; 96375; 99285-25; J1200; J1815; J2270; J2405; J7030

== ENCOUNTER 2022-12-07 16:49 | Inpatient (IN) | payer OTHER ==
[~2022-12-07] VITALS: Ht 149.9 cm; Wt 43.6 kg
[~2022-12-07 16:49] MED LIST changes: +DICYCLOMINE HCL20 MG PO
--- OUTSIDE RECORDS SUMMARY | 2022-12-07 16:52 | XMS ---
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 - Patient with suicidal and/or homicidal ideations eloped. - Patient eloped with IV in place. Details: Patient LWBS. Elopement at [facility] 07/08/2022 22:03 - Patient eloped before treatment completed. - Patient with suicidal and/or homicidal ideations eloped. - Patient eloped with IV in place. Details: PATIENT LWBS CRITERIA MET - [facility] - Has Care Guidelines - 6 ED Visits in 6 Months - [facility] - [facility] - 2 Visits in 30 Days CARE PROVIDERS SAUL THORPE Physician 03/19/2019-Current PHONE: Unknown [facility] 01/22/2021-[facility] PHONE: [phone] Jef has no Care Guidelines for this patient. Care History Medical/Surgical 09/24/2021 [facility] Contacted Gerri RUDDfood operations managerHuduzyr-Cohtxq-yjzgkiqn of recent ED visits. They will follow up with the patient. 02/05/2021 [facility] - [facility] CALLED AND SPOKE WITH PASTORAL MINISTRIES PROFESSOR WALDEMAR- DISCUSSED RECENT ED VISITS- PRIMARY CARE PHYSICIAN REVIEWED PATIENT RECENT ED VISITS AND DID CONTACT PATIENT-THEY HAVE INSTRUCTED PATIENT TO CONTACT WET MILLING WHEEL OPERATOR DR HAMMOND TO SCHEDULE AND EARLIER APT IF POSSIBLE. PATIENT HAS TO MAKE THE APT FOR FOLLOW UP THE CLINIC CAN\T\#39;T SCHEDULE THE APT FOR THE PATIENT. - PATIENT HAS AN APT 02/06/[address] CHRISTENSEN. 01/25/2021 [facility] VOIDING TRIAL SCHEDULED WITH DR CHRISTENSEN UROLOGIST 02/06/21 [place] VISIT COUNT (12 MO.) 7 [facility] [address] [facility]. TOTAL 35 NOTE: Visits indicate total known visits. ED/UCC VISIT TRACKING (12 MO.) 12/07/2022 16:50 [facility] TYPE: Emergency COMPLAINT: - ABDOMINAL PAIN 11/24/2022 20:55 [facility] TYPE: Emergency COMPLAINT: - HIGH BLOOD SUGAR DIAGNOSES: - Essential (primary) hypertension - Allergy status to other drugs, medicaments and biological substances - Hyperlipidemia, unspecified - Allergy status to sulfonamides - Other chronic pain - Allergy status to penicillin - Type 2 diabetes mellitus with hyperglycemia - Allergy status to other antibiotic agents - termite control technician (current) use of insulin - Allergy status to narcotic agent - Other superintendent container terminal (current) drug therapy - Unspecified abdominal pain 11/14/2022 19:46 [facility] [place] TYPE: Emergency DIAGNOSES: - Type 2 diabetes mellitus with hyperglycemia - abd pain - Generalized abdominal pain - Abdominal Pain 11/05/2022 21:56 [facility] [place] TYPE: Emergency DIAGNOSES: - unable to urinate and back pain - Flank Pain - Unspecified abdominal pain - Type 2 diabetes mellitus with hyperglycemia 10/30/2022 01:11 [facility] [place] TYPE: Emergency COMPLAINT: - CHEST TIGHTNESS,LIGHT HEADED DIAGNOSES: - Type 2 diabetes mellitus with ketoacidosis without coma - Other residential (current) drug therapy - Hypertensive chronic kidney disease with stage 1 through stage 4 chronic kidney disease, or unspecified chronic kidney disease - Chronic kidney disease, unspecified - Allergy status to other antibiotic agents - Precordial pain - Hyperkalemia - Allergy status to narcotic agent - Type 2 diabetes mellitus with diabetic chronic kidney disease - Essential (primary) hypertension - Allergy status to sulfonamides - Allergy status to other drugs, medicaments and biological substances - Pure hypercholesterolemia, unspecified - snf (current) use of insulin - Type 2 diabetes mellitus without complications 10/10/2022 22:40 [facility] [place] TYPE: Emergency COMPLAINT: - ABD PAIN, BLOOD SUGAR PROBLEM DIAGNOSES: - Allergy status to narcotic agent - Allergy status to other antibiotic agents - Type 1 diabetes mellitus with diabetic chronic kidney disease - Allergy status to sulfonamides - Chronic kidney disease, unspecified - Type 1 diabetes mellitus with hyperglycemia - Hyperlipidemia, unspecified - Other residential (current) drug therapy - termite control technician (current) use of insulin - Unspecified abdominal pain - Allergy status to other drugs, medicaments and biological substances - Hypertensive chronic kidney disease with stage 1 through stage 4 chronic kidney disease, or unspecified chronic kidney disease 10/06/2022 04:49 [facility] [place] TYPE: Emergency COMPLAINT: - N/V POSS UTI DIAGNOSES: - snf (current) use of insulin - Dysuria - Chronic kidney disease, unspecified - Allergy status to sulfonamides - Other residential (current) drug therapy - Hypertensive chronic kidney [...] narcotic agent - Essential (primary) hypertension - snf (current) use of insulin - Urinary tract [...] or unspecified chronic kidney disease - Other superintendent container terminal (current) drug therapy - Hyperlipidemia, unspecified 07/31/2022 10:[facility] DIAGNOSES: - Right upper [...] snf (current) use of insulin - Other residential (current) drug therapy - Allergy status to other antibiotic agents - Allergy status to sulfonamides - Hyperlipidemia, unspecified 07/27/2022 00:25 [facility] TYPE: Emergency COMPLAINT: - ABD PAIN DIAGNOSES: - Hyperlipidemia, unspecified - Chronic kidney disease, unspecified - Allergy status to other antibiotic agents - Right upper quadrant pain - Allergy status to narcotic agent - Hypertensive chronic kidney disease with stage 1 through stage 4 chronic kidney disease, or unspecified chronic kidney disease - Other superintendent container terminal (current) drug therapy - Type 2 diabetes mellitus with diabetic chronic kidney disease - Type 2 diabetes mellitus with ketoacidosis without coma - Calculus of bile duct without cholangitis or cholecystitis without obstruction - Allergy status to sulfonamides - Allergy status to other drugs, medicaments and biological substances 07/18/2022 11:06 [facility] [place] TYPE: Emergency DIAGNOSES: - Abdominal Pain - Unspecified abdominal pain - abd pain 07/12/2022 11:28 [facility] [place] TYPE: Emergency DIAGNOSES: - Calculus [...] snf (current) use of insulin - Other superintendent container terminal (current) drug therapy - Contact with and [...] drugs, medicaments and biological substances - Other superintendent container terminal (current) drug therapy - snf (current) use of insulin Plus 15 More Visits INPATIENT VISIT TRACKING [...] COLITIS DIAGNOSES: - Pure hypercholesterolemia, unspecified - snf (current) use of insulin [...] analgesic agent - Pure hypercholesterolemia, unspecified - termite control technician (current) use of insulin - Allergy status to penicillin - Vitamin D deficiency, unspecified - Chronic kidney disease, stage 3b - Allergy status to analgesic agent - Allergy status to sulfonamides - Left sided colitis without complications - Other superintendent container terminal (current) drug therapy - Type 1 diabetes mellitus with diabetic chronic kidney disease - Contact with and (suspected) exposure to COVID-19 - Allergy status to sulfonamides - Anemia in chronic kidney disease - Allergy status to other antibiotic agents - Unspecified hearing loss, right ear - Other superintendent container terminal (current) drug therapy - Type 1 diabetes mellitus with diabetic chronic kidney disease - Personal history of Methicillin resistant Staphylococcus aureus infection - termite control technician (current) use of opiate analgesic - termite control technician (current) use of opiate analgesic - Hyperlipidemia, [...] levels of liver transaminase levels - Other superintendent container terminal (current) drug therapy - Personal history of Methicillin resistant Staphylococcus aureus infection - Acute kidney failure, unspecified - Chronic kidney disease, stage 3b - Personal history of Methicillin resistant Staphylococcus aureus infection - Hypomagnesemia - Hypomagnesemia - Allergy status to sulfonamides - Anemia in chronic kidney disease - Elevation of levels of liver transaminase levels - Pure hyperglyceridemia - Other residential (current) drug therapy - Other specified postprocedural [...] and (suspected) exposure to COVID-19 01/26/2022 15:43 [facility] [place] TYPE: Surgical Services DIAGNOSES: - Chronic kidney disease, stage 3b - Acute pancreatitis without necrosis or infection, unspecified - Chronic kidney disease, stage 3a - Type 1 diabetes mellitus with hyperglycemia - Tachycardia, unspecified - snf (current) use of insulin - Upper abdominal pain, unspecified - 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 01/08/2022 15:43 [facility]: Medical Surgical DIAGNOSES: - Chronic kidney disease, stage 3b - snf (current) use of insulin - Acute pancreatitis without necrosis or infection, unspecified - Personal history of leukemia - Idiopathic acute pancreatitis without necrosis or infection - 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 [email or web address]
--- NOTE | 2022-12-07 18:55 | NUR ---
PT ARRIVED TO [facility] VIA WHEELCHAIR. BEDSIDE REPORT RECIEVED FROM BLAIRE BERMAN. PT ORIENTED TO CALL LIGHT, WITHIN REACH.
--- NOTE | 2022-12-07 21:02 | NUR ---
ASSESSED PATIENT. GAVE PAIN MEDICATION PER PATIENT REPORT OF PAIN. VS STABLE.
--- NOTE | 2022-12-08 02:35 | NUR ---
PT CALLS TO USE BR, PROVIDED. URINE SAMPLE COLLECTED AND SENT TO LAB. IV FLUIDS INFUSING PER ORDER. NO OTHER NEEDS STATED AT THIS TIME. CALL LIGHT IN REACH. FAMILY IN ROOM.
--- NOTE | 2022-12-08 03:21 | NUR ---
IN ROOM TO OBTAIN VITALS AND BG. PT RESTING IN BED WITH EYES CLOSED. RR EVEN AND UNLABORED. PT RESPONDS WHEN ADDRESSED. VITALS AND I&Os COMPLETE. SLIDING SCALE INSULIN ADMINISTERED, SEE MAR. FAMILY MEMBER ON COUCH. PT RESTING IN BED WITH EYES CLOSED. RR EVEN AND UNLABORED. NO OTHER NEEDS IDENTIFIED AT THIS TIME. CALL LIGHT IN REACH.
--- NOTE | 2022-12-08 03:56 | NUR ---
PATIENT IS RESTING IN BED WITH EYES CLOSED, RR 17. CALL LIGHT IN REACH. ASLEEP ON COUCH. IV INFUSING PER ORDER.
--- NOTE | 2022-12-08 05:28 | NUR ---
PATIENT ASSESMENT COMPLETED. PATIENTS VITALS TAKEN AND RECORDED. INTAKE AND OUTPUT RECORDED. PATIENT RATES PAIN AT A 8/10, PRN MEDICATION GIVEN PER ORDER. PATIENT DENIES ANY NAUSEA. PATIENTS IV INFUSING PER ORDER. PATIENT DENIES ANY FURTHER NEEDS. CALL LIGHT IN REEACH. ASLEEP ON THE COUCH. PATIENT
--- NOTE | 2022-12-08 07:52 | NUR ---
MORNING ASSESSMENT IS COMPLETE. PATIENT REPORTS ITCHING AND HAS PREVIOUSLY HAD BENADRYL AT 0500, MENTIONED TO DR. RAIN, PATIENT IS SLEEPY, NO HIVES NOTED. 1MG IV DILAUDID GIVEN FOR 5/10 ABD PAIN. BG IS 246 WITH 5 UNITS OF INSULIN COVERAGE. SPOUSE IS SLEEPING ON THE COUCH. NO OTHER NEEDS NOTED AT THIS TIME.
--- NOTE | 2022-12-08 09:35 | NUR ---
PATIENT IS SLEEPING SOUNDLY, REGULAR RESPIRATIONS NOTED.
--- NOTE | 2022-12-08 10:24 | NUR ---
PATIENT SLEEPING WITH REGULAR RESP. VITALS DONE AND ARE STABLE. PATIENT REQUESTED PAIN AND NAUSEA MEDICATIONS.
--- NOTE | 2022-12-08 10:40 | NUR ---
PATIENT GIVEN BENADRYL IV, PRIOR TO IV DILAUDID FOR 5/10 ABD PAIN.
--- NOTE | 2022-12-08 10:48 | NUR ---
DR. RAIN IN TO SEE PATIENT. PATIENT IS HAVING 250ML FLUID BOLUS, PULSE IS 125.
--- NOTE | 2022-12-08 10:51 | NUR ---
PATIENT IS ON 1L OF OXYGEN FOR 97%
--- NOTE | 2022-12-08 11:36 | NUR ---
PATIENT UP TO BATHROOM TO VOID, NEEDS TO BE ENCOURAGED TO KEEP O2 ON.
--- NOTE | 2022-12-08 14:00 | NUR ---
PATIENT GIVEN 1400 MEDICATIONS. BG IS 176 AND COVERED WITH 3 UNITS OF INSULIN. VITALS ARE STABLE, PULSE REMAINS AT 110 AND PATIENT GIVEN 2ND DOSE OF IV METOPROLOL. BED ALARM IS ON, SPOUSE WILL BE LEAVING SOON.
--- NOTE | 2022-12-08 14:26 | NUR ---
PATIENT IS RESTING IN BED, RESPIRATIONS ARE REGULAR. PULSE IS 105 AT THIS TIME.
--- NOTE | 2022-12-08 15:24 | NUR ---
PATIENT IS SLEEPING, RESPIRATIONS ARE REGULAR.
--- NOTE | 2022-12-08 16:02 | NUR ---
PATIENT UP TO RESTROOM TO VOID, RATES ABD PAIN 9/10 AND GIVEN 0.5MG OF IV DILAUDID. 1L OF O2 IS ON FOR 97% AND PATIENT IS RESTING IN BED. BED ALARM IS ON.
--- NOTE | 2022-12-08 17:35 | NUR ---
EVENING VITALS ARE COMPLETE. PATIENT IS SLEEPING, EASILY AWAKENS. NO COMPLAINTS OF PAIN ON THIS TIME.
--- NOTE | 2022-12-08 18:09 | NUR ---
PATIENT GIVEN 25MG OF IV BENADRYL FOR ITCHING. 1L OF O2 PLACED BACK ON PATIENT. PATIENT REPORTS THAT HER PAIN, "COMES AND GOES," BUT FELL IMMEDIATELY ASLEEP.
--- NOTE | 2022-12-08 19:25 | NUR ---
REPORT RECEIVED FROM DAY SHIFT RN. PT LYING IN BED DOZING ON AND OFF. DENIES NEEDS. SpO2 99% ON RA. TELE #7. HR LOW 100'S. WHITE BOARD UPDATED. CALL LIGHT IN REACH.
--- NOTE | 2022-12-08 21:03 | NUR ---
EVENING ASSESSMENT COMPLETE. SCHEDULED MEDS ADMIN PER EMAR. PRN ADMIN FOR 5/10 ABD PAIN. PT DENIES NAUSEA. BLOOD SUGAR 84 AND PT C/O EXTERNAL VAGINAL ITCHING. DR. RAIN NOTIFIED. TELEPHONE ORDERS RECEIVED VERIFIED WITH READBACK METHOD. PT ADVANCED TO CLEAR LIQUID DIET. JUICE PROVIDED. DISCUSSED WITH PT AND MD, LONG ACTING INSULIN ADMIN PER ORDER. 1L/NC IN PLACE AFTER PRN FOR PAIN ADMIN. SpO2 HIGH 90'S. PT DENIES FURTHER NEEDS AT THIS TIME. CALL LIGHT IN REACH.
--- NOTE | 2022-12-08 22:00 | NUR ---
PT RESTING WITH EYES CLOSED. AWAKENS EASILY. NAYAN JUICE WELL. SELF-MONITORING BLOOD SUGAR CHECK BCHTVA=[id number]. PT DENIES SX OF HYPOGLYCEMIA. SUGAR FREE SODA PROVIDED PER REQUEST. BED ALARM FOR SAFETY. CALL LIGHT IN REACH.
--- NOTE | 2022-12-08 22:33 | NUR ---
CALL LIGHT ANSWERED. PT REPORTS ABD PAIN 12/23. PRN FOR PAIN AND VAGINAL ITCHING ADMIN PER EMAR. UP TO BR WITH MINIMAL SBA TO VOID. GAIT STEADY. BACK TO BED, NAYAN WELL. DENIES NAUSEA. NO FURTHER NEEDS. BED ALARM FOR SAFETY. CALL LIGHT IN REACH.
--- NOTE | 2022-12-08 23:39 | NUR ---
PT CALLS TO REQUEST SINGH ACKERMAN. NO OTHER NEEDS AT THIS TIME. CALL LIGHT IN REACH.
--- NOTE | 2022-12-09 00:19 | NUR ---
CALL LIGHT ANSWERED. PT REQUESTING "SOMETHING FOR PAIN AND ITCHING." PRN FOR 710 ABD PAIN AND ITCHING PROVIDED. 1L/NC IN PLACE. SpO2 98%. TELE #7. HR LOW 100'S. NO FURTHER NEEDS. VISITOR IN ROOM TO SPEND THE NIGHT.
--- NOTE | 2022-12-09 02:01 | NUR ---
VS AND BLOOD SUGAR OBTAINED. SCHEDULED MEDS ADMIN PER EMAR. PT DROWSY. REMOVED OXYGEN. SpO2 88% ON RA. PT C/O DRY NOSE. HUMIDIFIER ADDED. 1L/NC IN PLACE. SpO2 98%. RESPIRATIONS SHALLOW. PT REPORTS FEELING ITCHY. NO HIVES OR SKIN IRRITATION NOTED. REMINDED PT PRN FOR ITCHING WAS ADMIN APPROX TWO HOURS AGO. ICE CHIPS PROVIDED PER REQUEST. BED ALARM FOR SAFETY. VISITOR IN ROOM.
--- NOTE | 2022-12-09 02:19 | NUR ---
BED ALARM SOUNDING. PT SITTING ON SIDE OF BED. SBA TO BR TO VOID. GAIT STEADY. BACK TO BED. OXYGEN IN PLACE. BED ALARM FOR SAFETY.
--- NOTE | 2022-12-09 03:09 | NUR ---
BED ALARM SOUNDING. PT UP TO BR WITH MINIMAL SBA TO VOID AN UNMEASURED AMOUNT. BACK TO BED, NAYAN WELL. NO FURTHER NEEDS.
--- NOTE | 2022-12-09 04:14 | NUR ---
bed alarm sounding. pt at side of bed with s/o. to br to void. clean pad and mesh underwear provided. back to bed. encouraged pt to use call light for safety when oob. reports abd pain 5/10. prn for pain admin per request. warm blanket provided. no further needs. bed alarm for safety.
--- NOTE | 2022-12-09 05:30 | NUR ---
LAB IN ROOM FOR MORNING DRAW. VS AND I&O OBTAINED. PT C/O ITCHING. DISCUSSED TOO SOON FOR PRN. PT AGREEABLE TO WAIT. PT DROWSY, DOZING ON AND OFF DURING CONVERSATION. BED ALARM FOR SAFETY. S/O SLEEPING ON COUCH. CALL LIGHT IN REACH.
--- NOTE | 2022-12-09 06:18 | NUR ---
PT CALLS TO USE BR, PROVIDED. WARM BLANKET PROVIDED. PT ASKS IF SHE CAN HAVE BENADRYL SOON. PRIMARY RN NOTIFIED. NO OTHER NEEDS. CALL LIGHT IN REACH.
--- NOTE | 2022-12-09 07:20 | NUR ---
REPORT FROM BLAIRE SALDIVAR
--- NOTE | 2022-12-09 07:20 | NUR ---
PT CALLED FOR ASSISTACE TO RESTROOM. SHE WAS ABLE TO AMBULATE INDEPENDELTY TO THE BATHROOM. PT WAS ABLE TO PERFORM OWN DELGADO CARE, APPLY CREAM TO VAGINAL AREA, PERFORMED HANDWASHING. THIS YARN TEXTURE MACHINE OPERATOR CHANGED BED LINENS, DOCUMENTED VOID. PT BACK IN BED W/WARM BLAKET, BED ALARM SET. PT ASKED REQUESTED "SOMETHING FOR PAIN", RN NOTIFIED.
--- NOTE | 2022-12-09 08:31 | NUR ---
PATIENT IS SLEEPING. WILL RETURN LATER TO DO THE PATIENT ASSESSMENT.
--- NOTE | 2022-12-09 09:19 | NUR ---
PATIENT GIVEN 0.5MG OF IV DILAUDID, AND ONCE AGAIN, REMINDED TO LEAVE HER O2 1L IN PLACE.
--- NOTE | 2022-12-09 09:49 | NUR ---
PATIENT IS SALINE LOCKED FOR A SHOWER. PAIN IS 4/10
--- NOTE | 2022-12-09 09:56 | NUR ---
SPOKE TO PATIENT ABOUT THE PATIENT'S DISCHARGE PLAN. PATIENT PLANS TO GO HOME WITH HER . PATIENT HAS SUPPORTIVE PARENTS THAT CAN HELP NEEDED. PATIENT'S FOLLOW UP CARE WILL BE AT [facility]. PATIENT DOES NOT NEED DME. PATIENT STATES SHE IS ABLE TO AFFORD FOOD AND UTILITIES AND MEDICATIONS.
--- NOTE | 2022-12-09 10:03 | NUR ---
PATIENT IS UP TO THE SHOWER.
--- NOTE | 2022-12-09 10:26 | NUR ---
PT SET UP FOR SHOWER, IV/TELE COVERED, NEW GOWN/SOCKS, LINENS CHANGED, PT ABLE TO PERFORM OWN CARES. THIS TRANSPLANT COORDINATOR FIXED LEADS AFTER SHOWER. WARM BLANKETS GIVEN, PT LAYING IN BED, WATCHING TV. ASKED FOR DIET SODA, S/O IN ROOM W/PT. NO OTHER REQUESTS AT THIS TIME. CALL LIGHT IN REACH.
--- NOTE | 2022-12-09 10:43 | NUR ---
IVF RESUMED AFTER SHOWER. PATIENT REPORTED HER PAIN, "IS FINE." PATIENT IS IN BED AND WEARING HER O2.
--- NOTE | 2022-12-09 11:14 | NUR ---
PATIENT GIVEN BEEF BROTH, IS MORE AWAKE TODAY, REPORTS LESS PAIN TODAY. PATIENT WOULD LKE HER BENADRYL WHEN AVAILABLE (NOON).
--- NOTE | 2022-12-09 12:07 | NUR ---
PATIENT GIVEN 25MG OF IV BENADRYL FOR ITCHING.
--- NOTE | 2022-12-09 12:58 | NUR ---
PATIENT GIVEN 0.5MG OF IV DILAUDID FOR 5/10 ABD PAIN. PATIENT UP TO BATHROOM TO VOID WITH 1PA. WARM BLANKETS PROVIDED.
--- NOTE | 2022-12-09 14:13 | NUR ---
PT VITALS/I&O'S/CBG TAKEN & DOCUMENTED. PT BS WAS 79, B/P HIGH RN SVETA NOTIFIED OF BOTH. APPLE JUICE GIVEM W/SUGAR PER DR. PT DRANK IT, WILL RECHECK BS. NO OTHER REQUESTS AT THIS TIME. PT RESTING IN BED ALONE IN ROOM. CALL LIGHT IN REACH.
--- NOTE | 2022-12-09 14:45 | NUR ---
PATIENT HAS REQUESTED A TURKEY SANDWICH. DIET ADVANCED TO ADA. PATIENT ADVISED TO GO SLOWLY WITH THE FOOD AND MONITOR FOR INCREASED PAIN, PATIENT AGREED.
--- NOTE | 2022-12-09 16:37 | NUR ---
PATIENT TOLERATED HALF OF A TURKEY SANDWICH, HER PAIN IS 3/10. TYLENOL GIVEN FOR THIS. PATIENT MAY GET TO GO HOME TOMORROW, DISCUSSED THIS WITH PATIENT AND PATIENT UNDERSTANDS. VITICULTURIST IN TO START A NEW IV.
--- NOTE | 2022-12-09 17:53 | NUR ---
PATIENT GIVEN 25MG OF IV BENADRYL FOR ITCHING. PATIENT REPORTS THAT HER ABDOMINAL PAIN REMAINS AT 3/10 AFTER PO TYLENOL. PATIENT HAS NEW ULTRASOUND GUIDED #20 IV TO RIGHT ARM, IVF IS RESUMED. PATIENT DENIES NAUSEA. WARM BLANKETS PROVIDED.
--- NOTE | 2022-12-09 18:50 | NUR ---
PATIENT GIVEN 0.25 OF IV DILAUDID FOR 5/10 ABD PAIN.
--- NOTE | 2022-12-09 19:16 | NUR ---
REPORT RECEIVED FROM BLAIRE BANGURA. pt RESTING IN BED SLEEPING, 1L OXYGEN BY NC IN PLACE. pt AWAKENS TO RN REPLACING TELE LEAD. pt STATES "I DON'T THINK THE DILAUDID WORKED". RATES PAIN 01/22, STATES "IT'S STILL THERE". pt CLOSES EYES RN LEAVES ROOM. BED ALARM ON.
--- NOTE | 2022-12-09 20:21 | NUR ---
CALL LIGHT ANSWERED. WARM BLANKET PROVIDED. pt COMPLAINS OF 6/10 ABDOMINAL PAIN, PRN PAIN MEDICATION ADMINISTERED. EDUCATION PROVIDED. ATTEMPT TO TITRATE pt TO RA, SPO2 DROPS TO 88% ON RA. 1L OXYGEN BY NC IN PLACE. ASSESSMENT COMPLETE. SCHEDULED MEDICATIONS PROVIDED. DIET SODA PROVIDED. WARM PACK FOR ABDOMEN. SBA TO RESTROOM FOR VOID AND BACK TO BED. CALL LIGHT NEXT TO pt. BED IN LOW POSITION, BED ALARM ON.
--- NOTE | 2022-12-09 22:25 | NUR ---
CALL LIGHT ANSWERED. pt COMPLAINS OF 6/10 ABDOMINAL PAIN. REFUSES PRN TYLENOL OFFERED. PRN DILAUDID IV ADMINISTERED WNL. IVF INFUSING ORDERED. SBA TO RESTROOM AND BACK TO BED. WARM BLANKET PROVIDED. CALL LIGHT IN REACH.
--- NOTE | 2022-12-09 23:13 | NUR ---
CALL LIGHT ANSWERED. pt COMPLAINS OF NAUSEA. STATES SMALL AMT OF EMESIS, IN MOUTH. NO EMESIS NOTED. FRESH EMESIS BAG PROVIDED. CALL LIGHT IN REACH.
--- NOTE | 2022-12-10 00:03 | NUR ---
CALL LIGHT ANSWERED. PRN BENADRYL ADMINSITERED FOR REPORTED ITCHING. SBA TO RESTROOM FOR VOID AND BACK TO BED. IVF INFUSING WNL. NO ADDITIONAL REQUESTS. TRAY TABLE CLEARED. LIGHTS OFF IN ROOM. CALL LIGHT IN REACH.
--- NOTE | 2022-12-10 01:30 | NUR ---
CALL LIGHT ANSWERED. pt COMPLAINS OF 7/10 PAIN IN ABDOMEN. PRN PAIN MEDICATION ADMINISTERED. ASSESSMENT AND VS COMPLETE. IVF INFUSING WNL. RN LEAVES ROOM AND pt CALLS COMPLAINING OF NAUSEA. PRN NAUSEA MEDICATION ADMINISTERED. CALL LIGHT IN REACH.
--- NOTE | 2022-12-10 04:35 | NUR ---
PRN PAIN MEDICATION ADMINISTERED REQUESTED FOR 03/24 PAIN IN ABDOMEN AT 0405. CCU PHONED AT 0432 TO NOTIFY pt WITH SINUS BRADYCARDIA ON TELE, HR 42. IN ROOM TO CHECK ON pt. pt SLEEPING, DIFFICULTY AROUSING BY VOICE , [place] AND [place]. pt WAKES EASILY TO TOUCH. OXYGEN OFF, pt WAS UP TO RESTROOM INDEPENDENTLY. URINE EMPTIED FROM HAT. OXYGEN APPLIED, 1L BY NC. BED ALARM ON. pt DENIES ANY NEEDS. HR INCREASES TO 70S ON TELE 7. IN ROOM RESTING ON COUCH.
--- NOTE | 2022-12-10 05:39 | NUR ---
BED ALARM SOUNDING. pt STANDING AT SIDE OF BED. INTEGRATED MARKETING MANAGER IN ROOM. SBA TO RESTROOM FOR VOID. pt BACK IN BED, CLOSES EYES. APNIC BREATHING NOTED, RR 12. pt MUMBLING "THERE ARE GHOSTS AT [facility]". ASKED pt WHAT SHE WAS REFERRING TO AND SHE STATES "[facility] I'M DREAMING". pt DROWSY. WARM BLAKET PROVIDED REQUESTED. VSS. 1L OXYGEN BY NC APPLIED SPO2 DROPS TO 80S WITH OBSERVED APNEA. SPO2 INCREASES TO WNL. BED ALARM BACK ON.
--- NOTE | 2022-12-10 07:17 | NUR ---
PHONE CALL TO , NOTIFIED OF 2ND DEGREE TYPE 1 BLOCKS FROM [phone] ACCORDING TO CCU RN. TO REVIEW MEDICATIONS.
--- NOTE | 2022-12-10 07:36 | NUR ---
PT RESTING IN BED AT TIME OF SHIFT REPORT, PRESENT ON THE COUCH. CALL LIGHT AND NEEDED ITEMS AT BEDSIDE. PT MAKES NO REQUESTS OR COMPLAINTS.
--- NOTE | 2022-12-10 09:12 | NUR ---
DR RAIN IN TO SEE PT
[2022-12-10] MEDS ORDERED: HYDROCODON-ACE1 EA10 PO (09:18)
--- NOTE | 2022-12-10 09:37 | NUR ---
LEFT VM FOR PCP TO CALL US BACK TO SCHEDULE FU FOR PT
--- NOTE | 2022-12-10 10:36 | NUR ---
THIS CHARGER PRESENT FOR HOSPITALIST ASSESSMENT. ASKED PT HOW SHE IS PT INSISTS SHE WANT'S TO GO HOME. 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 COOPERATES WITH PT REQUESTS
== END 2022-12-10 10:00 | disposition home or self-care (01) | DRG 440 ==
LOC: ED 16:49 → MS 16:51
PROVIDERS: ADMIT Internal Medicine; ATTEND Internal Medicine
DX: K85.90 Acute pancreatitis without necrosis or infection, unspecified (principal); Z20.822 Contact with and (suspected) exposure to COVID-19; E78.1 Pure hyperglyceridemia; H91.91 Unspecified hearing loss, right ear; I12.9 Hypertensive chronic kidney disease with stage 1 through stage 4 chronic kidney disease, or unspecified chronic kidney disease; N18.9 Chronic kidney disease, unspecified; E10.22 Type 1 diabetes mellitus with diabetic chronic kidney disease; E87.6 Hypokalemia; Z97.4 Presence of external hearing-aid; Z86.16 Personal history of COVID-19; Z90.49 Acquired absence of other specified parts of digestive tract; Z98.818 Other dental procedure status; Z85.6 Personal history of leukemia; Z88.0 Allergy status to penicillin; Z88.1 Allergy status to other antibiotic agents; Z88.2 Allergy status to sulfonamides; Z88.6 Allergy status to analgesic agent; Z88.8 Allergy status to other drugs, medicaments and biological substances; Z79.4 Long term (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; Z79.899 Other long term (current) 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
CPT/HCPCS: 36415; 80048; 80053; 80061; 81001; 83690; 83735; 84703; 85025; 87502; 94762; 96374; 96375; 96376; A9270; C9113; G0378; J0780; J1170; J1200; J1815; J2270; J2405; J3480; J7030; J7121; U0003

== ENCOUNTER 2023-01-20 23:39 | Emergency (ER) | payer OTHER ==
[~2023-01-20] VITALS: Ht 149.9 cm; Wt 41.6 kg
[~2023-01-20 23:39] MED LIST changes: +DILAUDID2 MG PO
--- OUTSIDE RECORDS SUMMARY | 2023-01-20 23:42 | XMS ---
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 - Patient with suicidal and/or homicidal ideations eloped. - Patient eloped with IV in place. Details: Patient left AMA Elopement at [facility] 08/17/2022 17:10 - Patient eloped before treatment completed. - Patient with suicidal and/or homicidal ideations eloped. - Patient eloped with IV in place. Details: Patient LWBS. Elopement at [facility] 07/08/2022 22:03 - Patient eloped before treatment completed. - Patient with suicidal and/or homicidal ideations eloped. - Patient eloped with IV in place. Details: PATIENT LWBS CRITERIA MET - [facility] - Has Care Guidelines - [facility] - 2 Visits in 30 Days - 6 ED Visits in 6 Months - [facility] SAUL THORPE Physician 03/19/2019-Current PHONE: Unknown [facility] 01/22/2021-[facility] PHONE: [phone] Jef has no Care Guidelines for this patient. Care History Medical/Surgical 09/24/2021 [facility] Contacted Gerri RUDDemergency managerFiwocuc-[id number] of recent ED visits. They will follow up with the patient. 02/05/2021 [facility] - [facility] CALLED AND SPOKE WITH CORRECTIONAL GUARD WALDEMAR- DISCUSSED RECENT ED VISITS- PRIMARY CARE PHYSICIAN REVIEWED PATIENT RECENT ED VISITS AND DID CONTACT PATIENT-THEY HAVE INSTRUCTED PATIENT TO CONTACT DIALS INSPECTOR DR HAMMOND TO SCHEDULE AND EARLIER APT IF POSSIBLE. PATIENT HAS TO MAKE THE APT FOR FOLLOW UP THE CLINIC CAN\T\#39;T SCHEDULE THE APT FOR THE PATIENT. - PATIENT HAS AN APT 02/06/[address] CHRISTENSEN. 01/25/2021 [facility] VOIDING TRIAL SCHEDULED WITH DR CHRISTENSEN UROLOGIST 02/06/21 [facility] VISIT COUNT (12 MO.) [address] [facility]. TOTAL 36 NOTE: Visits indicate total known visits. ED/UCC VISIT TRACKING (12 MO.) 01/20/2023 23:40 [facility] [place] TYPE: Emergency COMPLAINT: - FLANK PAIN,MITCHELL TO URINATE 01/03/2023 20:27 [facility] [place] TYPE: Emergency COMPLAINT: - ABDOMINAL PAIN 01/03/2023 12:12 [facility] [place] TYPE: Emergency COMPLAINT: - ABD PAIN, FLANK PAIN BOTH SIDES DIAGNOSES: - Allergy status to narcotic agent - Allergy status to other antibiotic agents - Allergy status to other drugs, medicaments and biological substances - Allergy status to penicillin - Allergy status to sulfonamides - Chronic kidney disease, unspecified - Hypertensive chronic kidney disease with stage 1 through stage 4 chronic kidney disease, or unspecified chronic kidney disease - Procedure and treatment not carried out because of patient's decision for other reasons - Right upper quadrant pain - Type 2 diabetes mellitus with diabetic chronic kidney disease 12/07/2022 16:50 [facility] TYPE: Emergency COMPLAINT: - ABDOMINAL PAIN 11/24/2022 20:55 [facility] TYPE: Emergency COMPLAINT: - HIGH BLOOD SUGAR DIAGNOSES: - Allergy status to narcotic agent - Allergy status to other antibiotic agents - Allergy status to other drugs, medicaments and biological substances - Allergy status to penicillin - Allergy status to sulfonamides - Essential (primary) hypertension - Hyperlipidemia, unspecified - FPC (current) use of insulin - Other chronic pain - Other penitentiary (current) drug therapy - Type 2 diabetes mellitus with hyperglycemia - Unspecified abdominal pain 11/14/2022 19:46 [facility] Nita [facility] TYPE: Emergency DIAGNOSES: - Generalized abdominal pain - Type 2 diabetes mellitus with hyperglycemia - abd pain - Abdominal Pain 11/05/2022 21:56 [facility] [place] TYPE: Emergency DIAGNOSES: - Type 2 diabetes mellitus with hyperglycemia - Unspecified abdominal pain - Flank Pain - unable to urinate and back pain 10/30/2022 01:11 [facility] [place] TYPE: Emergency COMPLAINT: - CHEST TIGHTNESS,LIGHT HEADED DIAGNOSES: - Allergy status to narcotic agent - Allergy status to other antibiotic agents - Allergy status to other drugs, medicaments and biological substances - Allergy status to sulfonamides - Chronic kidney disease, unspecified - Essential (primary) hypertension - Hyperkalemia - Hypertensive chronic kidney disease with stage 1 through stage 4 chronic kidney disease, or unspecified chronic kidney disease - 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 card tender (current) use of insulin - Other penitentiary (current) drug therapy - Precordial pain - Pure hypercholesterolemia, unspecified - Type 2 diabetes mellitus with diabetic chronic kidney disease - Type 2 diabetes mellitus with ketoacidosis without coma - Type 2 diabetes mellitus without complications 10/10/2022 22:40 [facility] [place] TYPE: Emergency COMPLAINT: - ABD PAIN, BLOOD SUGAR PROBLEM DIAGNOSES: - Allergy status to narcotic agent - Allergy status to other antibiotic agents - Allergy status to other drugs, medicaments and biological substances - Allergy status to sulfonamides - Chronic kidney disease, unspecified - Hyperlipidemia, unspecified - Hypertensive chronic kidney disease with stage 1 through stage 4 chronic kidney disease, or unspecified chronic kidney disease - FPC (current) use of insulin - Other penitentiary (current) drug therapy - Type 1 diabetes mellitus with diabetic chronic kidney disease - Type 1 diabetes mellitus with hyperglycemia - Unspecified abdominal pain 10/06/2022 04:49 [facility] [place] TYPE: Emergency COMPLAINT: - N/V POSS UTI DIAGNOSES: - Allergy status to narcotic agent - Allergy status to other antibiotic agents - Allergy status to other drugs, medicaments and biological substances - Allergy status to penicillin - Allergy status to sulfonamides - Chronic kidney disease, unspecified - Contact with and (suspected) exposure to COVID-19 - Dysuria - Hyperlipidemia, unspecified - Hypertensive chronic kidney disease with stage 1 through stage 4 chronic kidney disease, or unspecified chronic kidney disease - FPC (current) use of insulin - Other termite control representative (current) drug therapy - Type 2 diabetes mellitus with diabetic chronic kidney disease 09/22/2022 21:55 [facility] [place] TYPE: Emergency COMPLAINT: - DIABETIC ISSUES DIAGNOSES: - Allergy status to narcotic agent - Allergy status to other antibiotic agents - Allergy status to penicillin - Allergy status to sulfonamides - Contact with and (suspected) exposure to COVID-19 - Essential (primary) hypertension - Hyperlipidemia, unspecified - 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 card tender (current) use of insulin - Other penitentiary (current) drug therapy - Type 2 diabetes mellitus without complications - Unspecified abdominal pain - Urinary tract infection, site not specified 09/14/2022 10:28 [facility] [place] TYPE: Emergency COMPLAINT: - CHEST PAIN DIAGNOSES: - Allergy status to narcotic agent - Allergy status to other antibiotic agents - Allergy status to other drugs, medicaments and biological substances - Allergy status to sulfonamides - Chronic kidney disease, unspecified - Hyperlipidemia, unspecified - Hypertensive chronic kidney disease with stage 1 through stage 4 chronic kidney disease, or unspecified chronic kidney disease - Other chest pain - Type 2 diabetes mellitus with diabetic chronic kidney disease - Type 2 diabetes mellitus with ketoacidosis without coma 08/17/2022 17:10 [facility] [place] TYPE: Emergency COMPLAINT: - ABDOMINAL PAIN 08/03/2022 12:33 [facility] [place] TYPE: Emergency COMPLAINT: - BLOOD SUGAR PROBLEM DIAGNOSES: - Allergy status to narcotic agent - Allergy status to other antibiotic agents - Allergy status to other drugs, medicaments and biological substances - Allergy status to sulfonamides - Chronic kidney disease, unspecified - Encounter for issue of repeat prescription - Essential (primary) hypertension - Hyperkalemia - Hyperlipidemia, unspecified - Hypertensive chronic kidney disease with stage 1 through stage 4 chronic kidney disease, or unspecified chronic kidney disease - Other termite control representative (current) drug therapy - Type 2 diabetes mellitus with diabetic chronic kidney disease - Type 2 diabetes mellitus with ketoacidosis without coma [facility] DIAGNOSES: - Right upper quadrant pain - abd, back pain - Abdominal Pain 07/29/2022 08:41 [facility] TYPE: Emergency COMPLAINT: - UPPER ABD PAIN, NAUSEA DIAGNOSES: - Allergy status to narcotic agent - Allergy status to other antibiotic agents - Allergy status to other drugs, medicaments and biological substances - Allergy status to penicillin - Allergy status to sulfonamides - Chronic kidney disease, unspecified - Hyperlipidemia, unspecified - Hypertensive chronic kidney disease with stage 1 through stage 4 chronic kidney disease, or unspecified chronic kidney disease - 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 card tender (current) use of insulin - Other termite control representative (current) drug therapy - Type 2 diabetes mellitus with diabetic chronic kidney disease - Upper abdominal pain, unspecified 07/27/2022 00:25 [facility] TYPE: Emergency COMPLAINT: - ABD PAIN DIAGNOSES: - Allergy status to narcotic agent - Allergy status to other antibiotic agents - Allergy status to other drugs, medicaments and biological substances - Allergy status to sulfonamides - Calculus of bile duct without cholangitis or cholecystitis without obstruction - Chronic kidney disease, unspecified - Hyperlipidemia, unspecified - Hypertensive chronic kidney disease with stage 1 through stage 4 chronic kidney disease, or unspecified chronic kidney disease - Other termite control representative (current) drug therapy - Right upper quadrant pain - Type 2 diabetes mellitus with diabetic chronic kidney disease - Type 2 diabetes mellitus with ketoacidosis without coma [facility] DIAGNOSES: - Unspecified abdominal pain - abd pain - Abdominal Pain 07/12/2022 11:28 [facility] DIAGNOSES: - Calculus of bile duct without cholangitis or cholecystitis without obstruction - Calculus of gallbladder without cholecystitis without obstruction - Abdominal Pain - back,pain,abd pain, chronic kidney pain - Nausea 07/08/2022 22:[address] [facility] [place] TYPE: Emergency COMPLAINT: - URINE PROBLEM Plus 16 More Visits INPATIENT VISIT TRACKING (12 MO.) 01/03/2023 20:28 [facility] [place] TYPE: Observation COMPLAINT: - ACUTE PANCREATITIS DIAGNOSES: - Acute kidney failure, unspecified - Acute pancreatitis without necrosis or infection, unspecified - Allergy status to narcotic agent - Allergy status to other antibiotic agents - Allergy status to other drugs, medicaments and biological substances - Allergy status to penicillin - Allergy status to sulfonamides - Contact with and (suspected) exposure to COVID-19 - Hyperlipidemia, unspecified - Other chronic pancreatitis - Patient's noncompliance with other medical treatment and regimen due to unspecified reason - Type 1 diabetes mellitus with ketoacidosis without coma 12/08/2022 11:00 [facility] [place] TYPE: Medical Surgical COMPLAINT: - ACUTE PANCREATITIS DIAGNOSES: - Acquired absence of other specified parts of digestive tract - Acquired absence of other specified parts of digestive tract - Acute pancreatitis without necrosis or infection, unspecified - Allergy status to analgesic agent - Allergy status to analgesic agent - Allergy status to other antibiotic agents - Allergy status to other antibiotic agents - Allergy status to other drugs, medicaments and biological substances - Allergy status to other drugs, medicaments and biological substances - Allergy status to penicillin - Allergy status to penicillin - Allergy status to sulfonamides - Allergy status to sulfonamides - Chronic kidney disease, unspecified - Chronic kidney disease, unspecified - Contact with and (suspected) exposure to COVID-19 - Contact with and (suspected) exposure to COVID-19 - Hyperlipidemia, unspecified - Hypertensive chronic kidney disease with stage 1 through stage 4 chronic kidney disease, or unspecified chronic kidney disease - Hypertensive chronic kidney disease with stage 1 through stage 4 chronic kidney disease, or unspecified chronic kidney disease - Hypokalemia - Hypokalemia - FPC (current) use of insulin - 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 card tender (current) use of insulin - Other dental procedure status - Other dental procedure status - Other penitentiary (current) drug therapy - Other penitentiary (current) drug therapy - Personal history of COVID-19 - Personal history of COVID-19 - Personal history of leukemia - Personal history of leukemia - Presence of external hearing-aid - Presence of external hearing-aid - Pure hyperglyceridemia - Pure hyperglyceridemia - Type 1 diabetes mellitus with diabetic chronic kidney disease - Type 1 diabetes mellitus with diabetic chronic kidney disease - Unspecified hearing loss, right ear - Unspecified hearing loss, right ear 06/21/2022 12:02 [facility] [place] TYPE: Observation COMPLAINT: - ACUTE ON CHRONIC KIDNEY DISEASE, UTI DIAGNOSES: - Allergy status to narcotic agent - Allergy status to other drugs, medicaments and biological substances - Allergy status to penicillin - Allergy status to sulfonamides - Chronic kidney disease, unspecified - Contact with and (suspected) exposure to COVID-19 - Disorder of kidney and ureter, unspecified - Type 1 diabetes mellitus with diabetic chronic kidney disease - Type 1 diabetes mellitus with hyperglycemia - Urinary tract infection, site not specified 03/19/2022 10:01 [facility] [place] TYPE: Medical Surgical COMPLAINT: - ACUTE ISCHEMIC COLITIS DIAGNOSES: - Acute (reversible) ischemia of large intestine, extent unspecified - Acute kidney failure, unspecified - Acute kidney failure, unspecified - Allergy status to analgesic agent - Allergy status to analgesic agent - Allergy status to other antibiotic agents - Allergy status to other antibiotic agents - Allergy status to penicillin - Allergy status to penicillin - Allergy status to sulfonamides - Allergy status to sulfonamides - Anemia in chronic kidney disease - Anemia in chronic kidney disease - Chronic kidney disease, stage 3b - Chronic kidney disease, stage 3b - Contact with and (suspected) exposure to COVID-19 - Contact with and (suspected) exposure to COVID-19 - Hyperlipidemia, unspecified - Hyperlipidemia, unspecified - Hypertensive chronic kidney disease with stage 1 through stage 4 chronic kidney disease, or unspecified chronic kidney disease - Hypertensive chronic kidney disease with stage 1 through stage 4 chronic kidney disease, or unspecified chronic kidney disease - Left sided colitis without complications - Left sided colitis without complications - 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 card tender (current) use of insulin - 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 card tender (current) use of insulin - 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 card tender (current) use of opiate analgesic - FPC (current) use of opiate analgesic - Other penitentiary (current) drug therapy - Other termite control representative (current) drug therapy - Personal history of Methicillin resistant Staphylococcus aureus infection - Personal history of Methicillin resistant Staphylococcus aureus infection - Presence of external hearing-aid - Presence of external hearing-aid - Pure hypercholesterolemia, unspecified - Pure hypercholesterolemia, unspecified - Type 1 diabetes mellitus with diabetic chronic kidney disease - Type 1 diabetes mellitus with diabetic chronic kidney disease - Unspecified hearing loss, right ear - Unspecified hearing loss, right ear - Vitamin D deficiency, unspecified - Vitamin D deficiency, unspecified 03/16/2022 10:[address] [facility] [place] TYPE: Medical Surgical COMPLAINT: - ACUTE PANCREATITIS DIAGNOSES: - Acquired absence of other specified parts of digestive tract - Acquired absence of other specified parts of digestive tract - Acute kidney failure, unspecified - Acute kidney failure, unspecified - Allergy status to analgesic agent - Allergy status to analgesic agent - Allergy status to other antibiotic agents - Allergy status to other antibiotic agents - Allergy status to other drugs, medicaments and biological substances - Allergy status to other drugs, medicaments and biological substances - Allergy status to penicillin - Allergy status to penicillin - Allergy status to sulfonamides - Allergy status to sulfonamides - Anemia in chronic kidney disease - Anemia in chronic kidney disease - Chronic kidney disease, stage 3b - Chronic kidney disease, stage 3b - Contact with and (suspected) exposure to COVID-19 - Contact with and (suspected) exposure to COVID-19 - Elevation of levels of liver transaminase levels - Elevation of levels of liver transaminase levels - Hyperlipidemia, unspecified - Hyperlipidemia, unspecified - Hypertensive chronic kidney disease with stage 1 through stage 4 chronic kidney disease, or unspecified chronic kidney disease - Hypertensive chronic kidney disease with stage 1 through stage 4 chronic kidney disease, or unspecified chronic kidney disease - Hypomagnesemia - Hypomagnesemia - Idiopathic acute pancreatitis without necrosis or infection - Other termite control representative (current) drug therapy - Other termite control representative (current) drug therapy - Other specified postprocedural states - Other specified postprocedural states - Personal history of Methicillin resistant Staphylococcus aureus infection - Personal history of Methicillin resistant Staphylococcus aureus infection - Pure hyperglyceridemia - Pure hyperglyceridemia - Type 1 diabetes mellitus with diabetic chronic kidney disease - Type 1 diabetes mellitus with diabetic chronic kidney disease - Unspecified hearing loss, right ear - Unspecified hearing loss, right ear 01/26/2022 15:43 [facility]N TYPE: Surgical Services DIAGNOSES: - Acute pancreatitis without necrosis or infection, unspecified - Chronic kidney disease, stage 3a - Chronic kidney disease, stage 3b - 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 - FPC (current) use of insulin - Tachycardia, unspecified - Type 1 diabetes mellitus with hyperglycemia - Upper abdominal pain, unspecified [email or web address]
[2023-01-21] MEDS ORDERED: CEPHALEXIN500 M1 PO (01:22)
[2023-01-21 01:34] VITALS: BP 139/96
== END 2023-01-21 01:35 | disposition home or self-care (01) ==
LOC: ED 23:39
DX: N39.0 Urinary tract infection, site not specified (principal); E11.9 Type 2 diabetes mellitus without complications; I10 Essential (primary) hypertension; Z88.0 Allergy status to penicillin; Z88.8 Allergy status to other drugs, medicaments and biological substances; Z88.5 Allergy status to narcotic agent; Z79.4 Long term (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; Z88.2 Allergy status to sulfonamides
CPT/HCPCS: 36415; 80053; 81001; 84703; 85025; 99283; A9270

== ENCOUNTER 2023-02-02 00:04 | Emergency (ER) | payer OTHER ==
[~2023-02-02] VITALS: Ht 149.9 cm; Wt 41.7 kg
[~2023-02-02 00:04] MED LIST changes: +CEPHALEXIN500 M1 PO
--- OUTSIDE RECORDS SUMMARY | 2023-02-02 00:08 | XMS ---
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 - Patient with suicidal and/or homicidal ideations eloped. - Patient eloped with IV in place. Details: Patient left AMA Elopement at [facility] 08/17/2022 17:10 - Patient eloped before treatment completed. - Patient with suicidal and/or homicidal ideations eloped. - Patient eloped with IV in place. Details: Patient LWBS. Elopement at [facility] 07/08/2022 22:03 - Patient eloped before treatment completed. - Patient with suicidal and/or homicidal ideations eloped. - Patient eloped with IV in place. Details: PATIENT LWBS CRITERIA MET - 6 ED Visits in 6 Months - [facility] - [facility] - 2 Visits in 30 Days - [facility] - Has Care Guidelines CARE PROVIDERS SAUL THORPE Physician 03/19/2019-Current PHONE: Unknown [facility] 01/22/2021-[facility] PHONE: [phone] Jef has no Care Guidelines for this patient. Care History Medical/Surgical 09/24/2021 [facility] Contacted Gerri RUDDjava mobile developerKnaobvh-Tujeuy-zwtersur of recent ED visits. They will follow up with the patient. 02/05/2021 [facility] - [facility] CALLED AND SPOKE WITH IRON PLASTIC BULLET MAKER WALDEMAR- DISCUSSED RECENT ED VISITS- PRIMARY CARE PHYSICIAN REVIEWED PATIENT RECENT ED VISITS AND DID CONTACT PATIENT-THEY HAVE INSTRUCTED PATIENT TO CONTACT ACCOUNTING POLICY CONSULTANT DR HAMMOND TO SCHEDULE AND EARLIER APT IF POSSIBLE. PATIENT HAS TO MAKE THE APT FOR FOLLOW UP THE CLINIC CAN\T\#39;T SCHEDULE THE APT FOR THE PATIENT. - PATIENT HAS AN APT 02/06/[address] CHRISTENSEN. 01/25/2021 [facility] VOIDING TRIAL SCHEDULED WITH DR CHRISTENSEN UROLOGIST 02/06/21 [place] VISIT COUNT (12 MO.) 5 [facility] 32 [facility]. TOTAL 37 NOTE: Visits indicate total known visits. ED/UCC VISIT TRACKING (12 MO.) 02/02/2023 00:06 [facility] [place] TYPE: Emergency COMPLAINT: - ABD PAIN AND HEAVY CHEST PRESSURE 01/26/2023 21:48 [facility] [place] TYPE: Emergency COMPLAINT: - FLANK PAIN DIAGNOSES: - Allergy status to narcotic agent - Allergy status to other antibiotic agents - Allergy status to other drugs, medicaments and biological substances - Allergy status to sulfonamides - Chronic kidney disease, unspecified - Hyperlipidemia, unspecified - Hypertensive chronic kidney disease with stage 1 through stage 4 chronic kidney disease, or unspecified chronic kidney disease - terminal clerk (current) use of insulin - Type 1 diabetes mellitus with diabetic chronic kidney disease - Unspecified abdominal pain 01/20/2023 23:40 [facility] [place] TYPE: Emergency COMPLAINT: - FLANK PAIN,MITCHELL TO URINATE DIAGNOSES: - Allergy status to narcotic agent - Allergy status to other drugs, medicaments and biological substances - Allergy status to penicillin - Allergy status to sulfonamides - Dysuria - Essential (primary) hypertension - nursing home (current) use of insulin - Type 2 diabetes mellitus without complications - Urinary tract infection, site not specified 01/03/2023 20:27 [facility] [place] TYPE: Emergency [...] diabetic chronic kidney disease 12/07/2022 16:50 [facility] [place] TYPE: Emergency COMPLAINT: - ABDOMINAL PAIN 11/24/2022 20:55 [facility] [place] TYPE: Emergency COMPLAINT: - HIGH BLOOD SUGAR DIAGNOSES: - Allergy status to narcotic agent - Allergy status to other antibiotic agents - Allergy status to other drugs, medicaments and biological substances - Allergy status to penicillin - Allergy status to sulfonamides - Essential (primary) hypertension - Hyperlipidemia, unspecified - nursing home (current) use of insulin - Other chronic pain - Other residential (current) drug therapy - Type 2 diabetes mellitus with hyperglycemia - Unspecified abdominal pain [facility] DIAGNOSES: - Generalized abdominal pain - Type 2 diabetes mellitus with hyperglycemia - abd pain - Abdominal Pain 11/05/2022 21:56 [facility] DIAGNOSES: - Type 2 [...] disease, or unspecified chronic kidney disease - nursing home (current) use of insulin - Other residential (current) drug therapy - Precordial pain - [...] disease, or unspecified chronic kidney disease - terminal clerk (current) use of insulin - Other keno terminal operator (current) drug therapy - Type 1 [...] disease, or unspecified chronic kidney disease - terminal clerk (current) use of insulin - Other residential (current) drug therapy - Type 2 diabetes [...] Essential (primary) hypertension - Hyperlipidemia, unspecified - nursing home (current) use of insulin - Other residential (current) drug therapy - Type 2 diabetes [...] or unspecified chronic kidney disease - Other residential (current) drug therapy - Type 2 diabetes mellitus with diabetic chronic kidney disease - Type 2 diabetes mellitus with ketoacidosis without coma 07/31/2022 10:34 [facility] DIAGNOSES: - Right upper [...] disease, or unspecified chronic kidney disease - nursing home (current) use of insulin - Other keno terminal operator (current) drug therapy - Type 2 [...] or unspecified chronic kidney disease - Other residential (current) drug therapy - Right upper quadrant pain - Type 2 diabetes mellitus with diabetic chronic kidney disease - Type 2 diabetes mellitus with ketoacidosis without coma 07/18/2022 11:06 [place] LE[facility]N TYPE: Emergency DIAGNOSES: - Unspecified abdominal pain - abd pain - Abdominal Pain Plus 17 More Visits INPATIENT VISIT TRACKING (12 MO.) [...] kidney disease - Hypokalemia - Hypokalemia - terminal clerk (current) use of insulin - terminal clerk (current) use of insulin - Other dental procedure status - Other dental procedure status - Other residential (current) drug therapy - Other residential (current) drug therapy - Personal history of [...] - Left sided colitis without complications - nursing home (current) use of insulin - terminal clerk (current) use of insulin - nursing home (current) use of opiate analgesic - terminal clerk (current) use of opiate analgesic - Other residential (current) drug therapy - Other keno terminal operator (current) drug therapy - Personal history of [...] pancreatitis without necrosis or infection - Other residential (current) drug therapy - Other keno terminal operator (current) drug therapy - Other specified [...] ear - Unspecified hearing loss, right ear [email or web address]
[2023-02-02 02:29] VITALS: BP 146/102
== END 2023-02-02 02:30 | disposition home or self-care (01) ==
LOC: ED 00:04
DX: R10.9 Unspecified abdominal pain (principal); G89.29 Other chronic pain; I12.9 Hypertensive chronic kidney disease with stage 1 through stage 4 chronic kidney disease, or unspecified chronic kidney disease; E11.22 Type 2 diabetes mellitus with diabetic chronic kidney disease; N18.9 Chronic kidney disease, unspecified; E78.5 Hyperlipidemia, unspecified; Z79.4 Long term (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; Z88.2 Allergy status to sulfonamides; Z88.8 Allergy status to other drugs, medicaments and biological substances; Z88.0 Allergy status to penicillin; Z88.1 Allergy status to other antibiotic agents; Z88.5 Allergy status to narcotic agent
CPT/HCPCS: 36415; 71046; 80053; 81001; 82010; 82800; 83690; 84703; 85025; 96374; 96375; 99284-25; J1885; J2405; J7030

== ENCOUNTER 2023-02-11 00:32 | Emergency (ER) | payer OTHER ==
[~2023-02-11] VITALS: Ht 149.9 cm; Wt 42.7 kg
--- OUTSIDE RECORDS SUMMARY | 2023-02-11 00:34 | XMS ---
PreManage Notification: MONTSE GUTIERREZ Security Traffic Recorder Events 3 event(s) in the past 18 months Most recent security events: Elopement at [facility] 01/03/2023 12:12 - Patient eloped before treatment completed. - Patient with suicidal and/or homicidal ideations eloped. - Patient eloped with IV in place. Details: Patient left AMA Elopement at [facility] 08/17/2022 17:10 - Patient eloped before treatment completed. - Patient with suicidal and/or homicidal ideations eloped. - Patient eloped with IV in place. Details: Patient LWBS. Elopement at [facility] 07/08/2022 22:03 - Patient eloped before treatment completed. - Patient with suicidal and/or homicidal ideations eloped. - Patient eloped with IV in place. Details: PATIENT LWBS CRITERIA MET - 6 ED Visits in 6 Months - [facility] - [facility] - 2 Visits in 30 Days - [facility] - Has Care Guidelines CARE PROVIDERS SAUL THORPE Physician 03/19/2019-Current PHONE: Unknown [facility] 01/22/20[facility] PHONE: [phone] Jef has no Care Guidelines for this patient. Care History Medical/Surgical 09/24/2021 [facility] Contacted Gerri RUDDhand lasterWjkrpwt-Xmaplu-xtfdcagi of recent ED visits. They will follow up with the patient. 02/05/2021 [facility] - [facility] CALLED AND SPOKE WITH CENTER RECEPTIONIST WALDEMAR- DISCUSSED RECENT ED VISITS- PRIMARY CARE PHYSICIAN REVIEWED PATIENT RECENT ED VISITS AND DID CONTACT PATIENT-THEY HAVE INSTRUCTED PATIENT TO CONTACT RETAIL SOLAR ADVISOR DR HAMMOND TO SCHEDULE AND EARLIER APT IF POSSIBLE. PATIENT HAS TO MAKE THE APT FOR FOLLOW UP THE CLINIC CAN\T\#39;T SCHEDULE THE APT FOR THE PATIENT. - PATIENT HAS AN APT 02/06/[address] CHRISTENSEN. 01/25/2021 [facility] VOIDING TRIAL SCHEDULED WITH DR CHRISTENSEN UROLOGIST 02/06/21 [place] VISIT COUNT (12 MO.) 6 [facility] 32 [facility]. TOTAL 38 NOTE: Visits indicate total known visits. ED/UCC VISIT TRACKING (12 MO.) 02/11/2023 00:33 [facility] [place] TYPE: Emergency COMPLAINT: - ABD PAIN,NAUSEA 02/07/2023 00:38 [facility] DIAGNOSES: - Generalized abdominal pain - Type 2 diabetes mellitus with hyperglycemia - Abdominal Pain - flank pain 02/02/2023 00:06 [facility] [place] TYPE: Emergency COMPLAINT: - ABD PAIN AND HEAVY CHEST PRESSURE DIAGNOSES: - Allergy status to narcotic agent - Allergy status to other antibiotic agents - Allergy status to other drugs, medicaments and biological substances - Allergy status to penicillin - Allergy status to sulfonamides - Chronic kidney disease, unspecified - Hyperlipidemia, unspecified - Hypertensive chronic kidney disease with stage 1 through stage 4 chronic kidney disease, or unspecified chronic kidney disease - 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 - Other chronic pain - Type 2 diabetes mellitus with diabetic chronic kidney disease - Unspecified abdominal pain 01/26/2023 21:48 [facility] [place] TYPE: Emergency [...] disease, or unspecified chronic kidney disease - shelter (current) use [...] - Dysuria - Essential (primary) hypertension - shelter (current) use of insulin - [...] Essential (primary) hypertension - Hyperlipidemia, unspecified - 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 - Other chronic pain - Other mcc (current) drug therapy - Type 2 diabetes mellitus with hyperglycemia - Unspecified abdominal pain 11/14/2022 19:46 [facility] [place] TYPE: Emergency DIAGNOSES: - Generalized abdominal pain - Type 2 diabetes mellitus with hyperglycemia - abd pain - Abdominal Pain 11/05/2022 21:56 [facility] [place] TYPE: Emergency DIAGNOSES: - Type 2 diabetes [...] disease, or unspecified chronic kidney disease - 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 - Other terminal carman (current) drug therapy - Precordial pain - [...] disease, or unspecified chronic kidney disease - 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 - Other terminal carman (current) drug therapy - Type 1 diabetes [...] disease, or unspecified chronic kidney disease - 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 - Other mcc [...] Essential (primary) hypertension - Hyperlipidemia, unspecified - shelter (current) use of insulin - Other mcc [...] mellitus with ketoacidosis without coma 07/31/2022 10:34 [facility] Nita LE[facility]N TYPE: Emergency DIAGNOSES: - Right [...] disease, or unspecified chronic kidney disease - shelter (current) use of insulin - Other mcc (current) drug therapy - Type 2 diabetes mellitus with diabetic chronic kidney disease - Upper abdominal pain, unspecified Plus 18 More Visits INPATIENT VISIT TRACKING (12 MO.) 01/03/2023 20:[address] [facility] [place] TYPE: Observation COMPLAINT: - ACUTE PANCREATITIS [...] kidney disease - Hypokalemia - Hypokalemia - shelter (current) use of insulin - 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 - Other dental procedure status - Other dental procedure status - Other mcc (current) drug therapy - Other terminal carman (current) drug therapy - Personal history of [...] - Left sided colitis without complications - shelter (current) use of insulin - 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 - shelter (current) use of opiate analgesic - shelter (current) use of opiate analgesic - Other mcc (current) drug therapy - Other terminal carman (current) drug therapy - Personal history of [...] pancreatitis without necrosis or infection - Other terminal carman (current) drug therapy - Other terminal carman (current) drug therapy - Other specified postprocedural [...] ear - Unspecified hearing loss, right ear [email or web address]
[2023-02-11] MEDS ORDERED: VITAFOL-OB+DHA1 EACH PO (02:06)
[2023-02-11 02:39] VITALS: BP 180/104
== END 2023-02-11 02:41 | disposition home or self-care (01) ==
LOC: ED 00:32
DX: O26.891 Other specified pregnancy related conditions, first trimester (principal); R10.12 Left upper quadrant pain; Z3A.01 Less than 8 weeks gestation of pregnancy; O10.211 Pre-existing hypertensive chronic kidney disease complicating pregnancy, first trimester; I12.9 Hypertensive chronic kidney disease with stage 1 through stage 4 chronic kidney disease, or unspecified chronic kidney disease; N18.9 Chronic kidney disease, unspecified; O24.311 Unspecified pre-existing diabetes mellitus in pregnancy, first trimester; E11.22 Type 2 diabetes mellitus with diabetic chronic kidney disease; Z88.2 Allergy status to sulfonamides; Z88.8 Allergy status to other drugs, medicaments and biological substances; Z88.1 Allergy status to other antibiotic agents; Z88.5 Allergy status to narcotic agent; Z79.4 Long term (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; Z79.899 Other long term (current) 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
CPT/HCPCS: 36415; 80053; 81001; 83690; 84702; 84703; 85025; J1170; J1200; J2405; J7121

== ENCOUNTER 2023-03-20 13:04 | Emergency (ER) | payer OTHER ==
[~2023-03-20] VITALS: Ht 149.9 cm; Wt 40.9 kg
--- OUTSIDE RECORDS SUMMARY | ~2023-03-20 | XMS | Continuity of Care Document ---
Demographics + + + | Address | [address] | | | [place] [address] | + + + | Preferred Language | Unknown | + + + | Marital Status | | + + + | Adventism Affiliation | Unknown | + + + | Race | or | + + + | Ethnic Group | Not or | + + + Author + + + | Author | [facility] [place] [facility] | + + + | Organization | [facility] | + + + | Address | [address] [place] [address] | | | [place] [address] | + + + | Phone | | + + + Care Team Providers + + + + | Care Mobile Product Manager Name | Role | Phone | + + + + Unavailable | Unavailable | + + + + Unavailable | Unavailable | + + + + Unavailable | Unavailable | + + + + Allergies and Intolerances + + + + + | date | description | facility | type | + + + + + | (no date) | Lisinopril | [facility] | | + + + + + | (no date) | Vancomycin | [facility] ([facility] | | + + + + + | (no date) | vancomycin | [facility] ([facility] | | + + + + + | (no date) | Urticaria | [facility] (unknown[facility] | [facility] | | + + + + + | (no date) | Headache | [facility] | (unknown) | | [facility] | Hospital | | + + + + + | (no date) | Mild | [facility] (unknown) | | [facility] Hospital | | + + + + + | (no date) | Clindamycin | [facility] (unknown) [facility] Hospital | | + + + + + | (no date) | clindamycin | [facility] (unknown) | | | | Hospital | | + + + + + | (no date) | Rash | [facility] | (unknown) | | | | Hospital | | + + + + + | (no date) | Amoxicillin | [facility] (unknown[facility] | [facility] Hospital | | + + + + + | (no date) | Facial swelling | [facility] (unknown) | | | [facility] Hospital | | + + + + + | (no date) | Lisinopril | [facility] (unknown[facility] | | + + + + + | (no date) | lisinopril | [facility] (unknown[facility] | | | Hospital | | + + + + + | (no date) | Hydromorphone | [facility] | (unknown) | | | | Hospital | | + + + + + | (no date) | Vancomycin | [facility] (unknown) | | [facility] | Hospital | | + + + + + | (no date) | Clindamycin | [facility] (unknown) | | | | Hospital | | + + + + + | (no date) | Fentanyl | [facility] (unknown) | | | | Hospital | | + + + + + | (no date) | Morphine | [facility] (unknown) | | | | Hospital | | + + + + + | (no date) | Clindamycin | [facility] (unknown) | | | | Hospital | | + + + + + | (no date) | Hydromorphone | [facility] (unknown) | | | | Hospital | | + + + + + | (no date) | Itching | [facility] | (unknown) | | | | Hospital | | + + + + + | (no date) | Fentanyl | [facility] (unknown) | | | | Hospital | | + + + + + | (no date) | Vancomycin | [facility] (unknown) | | | | Hospital | | + + + + + | (no date) | Morphine | [facility] (unknown) | | | | Hospital | | + + + + + | (no date) | morphine | [facility] (unknown) | | | | Hospital | | + + + + + | (no date) | Amoxicillin | [facility] (unknown) | | | | Hospital | | + + + + + | (no date) | amoxicillin | [facility] (unknown) | | | | Hospital | | + + + + + | (no date) | Morphine | [facility] (unknown) | | | | Hospital | | + + + + + | (no date) | Amoxicillin | [facility] (unknown) | | | | Hospital | | + + + + + | (no date) | Lisinopril | [facility] ([facility] | | | [facility] | | + + + + + | (no date) | Sulfa (Sulfonamide | [facility] | (unknown) | | | Antibiotics) | | | + + + + + | (no date) | lisinopril | [facility] | (unknown) | + + + + + | (no date) | morphine | [facility] | (unknown) | + + + + + | (no date) | clindamycin | [facility] | (unknown) | + + + + + | (no date) | fentanyl | [facility] | (unknown) | + + + + + | (no date) | amoxicillin | [facility] | (unknown) | + + + + + | (no date) | hydromorphone | [facility] | (unknown) | + + + + + | (no date) | vancomycin | [facility] | (unknown) | + + + + + | (no date) | Hydromorphone | [facility] ([facility] | | [facility] | | + + + + + | (no date) | Fentanyl | [facility] (unknown[facility] | | | | [facility] | | + + + + + Encounters No information. Functional Status No information. Immunizations + + + + | date | description | facility | + + + + | 2022-03-22 00:00 | No vaccine administered | [facility] | + + + + Medications + + + + | date | description | facility | + + + + | 2021-01-18 00:00 | FAMOTIDINE | [facility] | + + + + | 2022-03-22 00:00 | FAMOTIDINE | [facility] | + + + + | 2022-03-23 00:00 | FAMOTIDINE | [facility] | + + + + | 2022-03-25 00:00 | FAMOTIDINE | [facility] | + + + + | 2022-03-27 00:00 | FAMOTIDINE | [facility] | + + + + | 2022-03-28 00:00 | FAMOTIDINE | [facility] | + + + + | 2022-05-23 00:00 | FAMOTIDINE | [facility] | + + + + | 2022-06-18 00:00 | FAMOTIDINE | [facility] | + + + + | 2022-06-22 00:00 | FAMOTIDINE | [facility] | + + + + | 2022-07-03 00:00 | FAMOTIDINE | [facility] | + + + + | 2022-07-08 00:00 | FAMOTIDINE | [facility] | + + + + | 2022-07-29 00:00 | FAMOTIDINE | [facility] | + + + + | 2022-08-03 00:00 | FAMOTIDINE | [facility] | + + + + | 2022-08-05 00:00 | FAMOTIDINE | [facility] | + + + + | 2022-08-17 00:00 | FAMOTIDINE | [facility] | + + + + | 2022-09-14 00:00 | FAMOTIDINE | [facility] | + + + + | 2022-09-23 00:00 | FAMOTIDINE | [facility] | + + + + | 2022-10-08 00:00 | FAMOTIDINE | [facility] | + + + + | 2022-10-11 00:00 | FAMOTIDINE | [facility] | + + + + | 2022-10-30 00:00 | FAMOTIDINE | [facility] | + + + + | 2022-11-24 00:00 | FAMOTIDINE | [facility] | + + + + | 2022-12-10 00:00 | FAMOTIDINE | [facility] | + + + + | 2023-01-03 00:00 | FAMOTIDINE | [facility] | + + + + | 2023-01-05 00:00 | FAMOTIDINE | [facility] | + + + + | 2023-01-21 00:00 | FAMOTIDINE | [facility] | + + + + | 2023-01-27 00:00 | FAMOTIDINE | [facility] | + + + + | 2023-02-02 00:00 | FAMOTIDINE | [facility] | + + + + | 2023-02-11 00:00 | FAMOTIDINE | [facility] | + + + + | 2023-02-23 00:00 | FAMOTIDINE | [facility] | + + + + | 2023-03-05 00:00 | FAMOTIDINE | [facility] | + + + + | 2023-03-12 00:00 | FAMOTIDINE | [facility] | + + + + | 2021-01-18 00:00 | famotidine 20 MG Oral | [facility] | | | Tablet [Pepcid] | | + + + + | 2022-03-22 00:00 | famotidine 20 MG Oral | [facility] | | | Tablet [Pepcid] | | + + + + | 2022-03-07 00:00 | ONDANSETRON | [facility] | + + + + | 2022-07-03 00:00 | ONDANSETRON | [facility] | + + + + | 2022-09-23 00:00 | ONDANSETRON | [facility] | + + + + | 2022-10-06 00:00 | ONDANSETRON | [facility] | + + + + | 2022-03-07 00:00 | ondansetron 4 MG | [facility] | | | Disintegrating Oral Tablet | | + + + + | 2018-10-19 00:00 | ONDANSETRON HCL | [facility] | + + + + | 2021-01-18 00:00 | ONDANSETRON HCL | [facility] | + + + + | 2022-03-23 00:00 | ONDANSETRON HCL | [facility] | + + + + | 2022-03-25 00:00 | ONDANSETRON HCL | [facility] | + + + + | 2022-03-27 00:00 | ONDANSETRON HCL | [facility] | + + + + | 2022-03-28 00:00 | ONDANSETRON HCL | [facility] | + + + + | 2022-06-18 00:00 | ONDANSETRON HCL | [facility] | + + + + | 2022-06-22 00:00 | ONDANSETRON HCL | [facility] | + + + + | 2022-07-03 00:00 | ONDANSETRON HCL | [facility] | + + + + | 2022-07-08 00:00 | ONDANSETRON HCL | [facility] | + + + + | 2022-07-29 00:00 | ONDANSETRON HCL | [facility] | + + + + | 2022-08-03 00:00 | ONDANSETRON HCL | [facility] | + + + + | 2022-08-05 00:00 | ONDANSETRON HCL | [facility] | + + + + | 2022-08-17 00:00 | ONDANSETRON HCL | [facility] | + + + + | 2022-09-14 00:00 | ONDANSETRON HCL | [facility] | + + + + | 2022-09-23 00:00 | ONDANSETRON HCL | [facility] | + + + + | 2022-10-08 00:00 | ONDANSETRON HCL | [facility] | + + + + | 2022-10-11 00:00 | ONDANSETRON HCL | [facility] | + + + + | 2022-10-30 00:00 | ONDANSETRON HCL | [facility] | + + + + | 2022-11-24 00:00 | ONDANSETRON HCL | [facility] | + + + + | 2022-12-10 00:00 | ONDANSETRON HCL | [facility] | + + + + | 2023-01-03 00:00 | ONDANSETRON HCL | [facility] | + + + + | 2023-01-05 00:00 | ONDANSETRON HCL | [facility] | + + + + | 2023-01-21 00:00 | ONDANSETRON HCL | [facility] | + + + + | 2023-01-27 00:00 | ONDANSETRON HCL | [facility] | + + + + | 2023-02-02 00:00 | ONDANSETRON HCL | [facility] | + + + + | 2023-02-11 00:00 | ONDANSETRON HCL | [facility] | + + + + | 2023-02-23 00:00 | ONDANSETRON HCL | [facility] | + + + + | 2023-03-05 00:00 | ONDANSETRON HCL | [facility] | + + + + | 2023-03-12 00:00 | ONDANSETRON HCL | [facility] | + + + + | 2018-10-19 00:00 | ondansetron 4 MG Oral | [facility] | | | Tablet [Zofran] | | + + + + | 2021-01-18 00:00 | ondansetron 4 MG Oral | [facility] | | | Tablet [Zofran] | | + + + + | 2022-03-22 00:00 | ondansetron 4 MG Oral | [facility] | | | Tablet [Zofran] | | + + + + | 2022-03-18 00:00 | OXYCODONE HCL | [facility] | + + + + | 2022-03-18 00:00 | oxycodone hydrochloride 5 | [facility] | | | MG Oral Tablet | | + + + + | 2022-07-03 00:00 | NAPROXEN | [facility] | + + + + | 2021-03-01 00:00 | PHENAZOPYRIDINE HCL | [facility] | + + + + | 2021-07-14 00:00 | PHENAZOPYRIDINE HCL | [facility] | + + + + | 2021-03-01 00:00 | phenazopyridine | [facility] | | | hydrochloride 200 MG Oral | | | | Tablet [Pyridium] | | + + + + | 2021-07-14 00:00 | phenazopyridine | [facility] | | | hydrochloride 200 MG Oral | | | | Tablet [Pyridium] | | + + + + | 2022-03-22 00:00 | [place] 28 Day Pack | [facility] | + + + + | 2022-03-23 00:00 | NORGESTIMATE-ETHINYL | [facility] | | | ESTRADIOL | | + + + + | 2022-03-25 00:00 | NORGESTIMATE-ETHINYL | [facility] | | | ESTRADIOL | | + + + + | 2022-03-27 00:00 | NORGESTIMATE-ETHINYL | [facility] | | | ESTRADIOL | | + + + + | 2022-03-28 00:00 | NORGESTIMATE-ETHINYL | [facility] | | | ESTRADIOL | | + + + + | 2022-06-18 00:00 | NORGESTIMATE-ETHINYL | [facility] | | | ESTRADIOL | | + + + + | 2022-06-22 00:00 | NORGESTIMATE-ETHINYL | [facility] | | | ESTRADIOL | | + + + + | 2022-07-03 00:00 | NORGESTIMATE-ETHINYL | [facility] | | | ESTRADIOL | | + + + + | 2022-07-08 00:00 | NORGESTIMATE-ETHINYL | [facility] | | | ESTRADIOL | | + + + + | 2022-07-29 00:00 | NORGESTIMATE-ETHINYL | [facility] | | | ESTRADIOL | | + + + + | 2022-08-03 00:00 | NORGESTIMATE-ETHINYL | [facility] | | | ESTRADIOL | | + + + + | 2022-08-05 00:00 | NORGESTIMATE-ETHINYL | [facility] | | | ESTRADIOL | | + + + + | 2022-08-17 00:00 | NORGESTIMATE-ETHINYL | [facility] | | | ESTRADIOL | | + + + + | 2022-09-14 00:00 | NORGESTIMATE-ETHINYL | [facility] | | | ESTRADIOL | | + + + + | 2022-09-23 00:00 | NORGESTIMATE-ETHINYL | [facility] | | | ESTRADIOL | | + + + + | 2022-10-08 00:00 | NORGESTIMATE-ETHINYL | [facility] | | | ESTRADIOL | | + + + + | 2022-10-11 00:00 | NORGESTIMATE-ETHINYL | [facility] | | | ESTRADIOL | | + + + + | 2022-10-30 00:00 | NORGESTIMATE-ETHINYL | [facility] | | | ESTRADIOL | | + + + + | 2022-11-24 00:00 | NORGESTIMATE-ETHINYL | [facility] | | | ESTRADIOL | | + + + + | 2022-12-10 00:00 | NORGESTIMATE-ETHINYL | [facility] | | | ESTRADIOL | | + + + + | 2023-01-03 00:00 | NORGESTIMATE-ETHINYL | [facility] | | | ESTRADIOL | | + + + + | 2023-01-05 00:00 | NORGESTIMATE-ETHINYL | [facility] | | | ESTRADIOL | | + + + + | 2023-01-21 00:00 | NORGESTIMATE-ETHINYL | [facility] | | | ESTRADIOL | | + + + + | 2023-01-27 00:00 | NORGESTIMATE-ETHINYL | [facility] | | | ESTRADIOL | | + + + + | 2023-02-02 00:00 | NORGESTIMATE-ETHINYL | [facility] | | | ESTRADIOL | | + + + + | 2023-02-11 00:00 | NORGESTIMATE-ETHINYL | [facility] | | | ESTRADIOL | | + + + + | 2023-02-23 00:00 | NORGESTIMATE-ETHINYL | [facility] | | | ESTRADIOL | | + + + + | 2023-03-05 00:00 | NORGESTIMATE-ETHINYL | [facility] | | | ESTRADIOL | | + + + + | 2023-03-12 00:00 | NORGESTIMATE-ETHINYL | [facility] | | | ESTRADIOL | | + + + + | 2022-03-23 00:00 | ERGOCALCIFEROL (VITAMIN | [facility] | | | D2) | | + + + + | 2022-03-25 00:00 | ERGOCALCIFEROL (VITAMIN | [facility] | | | D2) | | + + + + | 2022-03-27 00:00 | ERGOCALCIFEROL (VITAMIN | [facility] | | | D2) | | + + + + | 2022-03-28 00:00 | ERGOCALCIFEROL (VITAMIN | [facility] | | | D2) | | + + + + | 2022-06-18 00:00 | ERGOCALCIFEROL (VITAMIN | [facility] | | | D2) | | + + + + | 2022-06-22 00:00 | ERGOCALCIFEROL (VITAMIN | [facility] | | | D2) | | + + + + | 2022-07-03 00:00 | ERGOCALCIFEROL (VITAMIN | [facility] | | | D2) | | + + + + | 2022-07-08 00:00 | ERGOCALCIFEROL (VITAMIN | [facility] | | | D2) | | + + + + | 2022-07-29 00:00 | ERGOCALCIFEROL (VITAMIN | [facility] | | | D2) | | + + + + | 2022-08-03 00:00 | ERGOCALCIFEROL (VITAMIN | [facility] | | | D2) | | + + + + | 2022-08-05 00:00 | ERGOCALCIFEROL (VITAMIN | [facility] | | | D2) | | + + + + | 2022-08-17 00:00 | ERGOCALCIFEROL (VITAMIN | [facility] | | | D2) | | + + + + | 2022-09-14 00:00 | ERGOCALCIFEROL (VITAMIN | [facility] | | | D2) | | + + + + | 2022-09-23 00:00 | ERGOCALCIFEROL (VITAMIN | [facility] | | | D2) | | + + + + | 2022-10-08 00:00 | ERGOCALCIFEROL (VITAMIN | [facility] | | | D2) | | + + + + | 2022-10-11 00:00 | ERGOCALCIFEROL (VITAMIN | [facility] | | | D2) | | + + + + | 2022-10-30 00:00 | ERGOCALCIFEROL (VITAMIN | [facility] | | | D2) | | + + + + | 2022-11-24 00:00 | ERGOCALCIFEROL (VITAMIN | [facility] | | | D2) | | + + + + | 2022-12-10 00:00 | ERGOCALCIFEROL (VITAMIN | [facility] | | | D2) | | + + + + | 2023-01-03 00:00 | ERGOCALCIFEROL (VITAMIN | [facility] | | | D2) | | + + + + | 2023-01-05 00:00 | ERGOCALCIFEROL (VITAMIN | [facility] | | | D2) | | + + + + | 2023-01-21 00:00 | ERGOCALCIFEROL (VITAMIN | [facility] | | | D2) | | + + + + | 2023-01-27 00:00 | ERGOCALCIFEROL (VITAMIN | [facility] | | | D2) | | + + + + | 2023-02-02 00:00 | ERGOCALCIFEROL (VITAMIN | [facility] | | | D2) | | + + + + | 2023-02-11 00:00 | ERGOCALCIFEROL (VITAMIN | [facility] | | | D2) | | + + + + | 2023-02-23 00:00 | ERGOCALCIFEROL (VITAMIN | [facility] | | | D2) | | + + + + | 2023-03-05 00:00 | ERGOCALCIFEROL (VITAMIN | [facility] | | | D2) | | + + + + | 2023-03-12 00:00 | ERGOCALCIFEROL (VITAMIN | [facility] | | | D2) | | + + + + | 2022-03-22 00:00 | Ergocalciferol (Vitamin | [facility] | | | D2) | | + + + + | 2022-03-22 00:00 | ergocalciferol 1.25 MG | [facility] | | | Oral Capsule | | + + + + | 2022-03-22 00:00 | Mesalamine | [facility] | + + + + | 2022-03-22 00:00 | mesalamine 400 MG Delayed | [facility] | | | Release Oral Capsule | | | | [Delzicol] | | + + + + | 2023-03-12 00:00 | DOXYCYCLINE HYCLATE | [facility] | + + + + | 2022-08-03 00:00 | INSULIN LISPRO | [facility] | + + + + | 2022-06-22 00:00 | Insulin Lispro | [facility] | + + + + | 2022-07-03 00:00 | Insulin Lispro | [facility] | + + + + | 2022-07-08 00:00 | Insulin Lispro | [facility] | + + + + | 2022-07-29 00:00 | Insulin Lispro | [facility] | + + + + | 2022-08-03 00:00 | Insulin Lispro | [facility] | + + + + | 2022-08-05 00:00 | Insulin Lispro | [facility] | + + + + | 2022-03-22 00:00 | 3 ML insulin lispro 100 | [facility] | | | UNT/ML Pen Injector | | | | [Humalog] | | + + + + | 2022-03-23 00:00 | INSULIN LISPRO | [facility] | + + + + | 2022-03-25 00:00 | INSULIN LISPRO | [facility] | + + + + | 2022-03-27 00:00 | INSULIN LISPRO | [facility] | + + + + | 2022-03-28 00:00 | INSULIN LISPRO | [facility] | + + + + | 2022-06-18 00:00 | INSULIN LISPRO | [facility] | + + + + | 2022-03-22 00:00 | 3 ML insulin aspart, human | [facility] | | | 100 UNT/ML Pen Injector | | | | [NovoLog] | | + + + + | 2022-03-23 00:00 | INSULIN ASPART | [facility] | + + + + | 2022-03-25 00:00 | INSULIN ASPART | [facility] | + + + + | 2022-03-27 00:00 | INSULIN ASPART | [facility] | + + + + | 2022-03-28 00:00 | INSULIN ASPART | [facility] | + + + + | 2022-06-18 00:00 | INSULIN ASPART | [facility] | + + + + | 2022-06-22 00:00 | INSULIN ASPART | [facility] | + + + + | 2022-07-03 00:00 | INSULIN ASPART | [facility] | + + + + | 2022-07-08 00:00 | INSULIN ASPART | [facility] | + + + + | 2022-07-29 00:00 | INSULIN ASPART | [facility] | + + + + | 2022-08-03 00:00 | INSULIN ASPART | [facility] | + + + + | 2022-08-05 00:00 | INSULIN ASPART | [facility] | + + + + | 2022-08-17 00:00 | INSULIN ASPART | [facility] | + + + + | 2022-09-14 00:00 | INSULIN ASPART | [facility] | + + + + | 2022-09-23 00:00 | INSULIN ASPART | [facility] | + + + + | 2022-10-08 00:00 | INSULIN ASPART | [facility] | + + + + | 2022-10-11 00:00 | INSULIN ASPART | [facility] | + + + + | 2022-10-30 00:00 | INSULIN ASPART | [facility] | + + + + | 2022-11-24 00:00 | INSULIN ASPART | [facility] | + + + + | 2022-12-10 00:00 | INSULIN ASPART | [facility] | + + + + | 2023-01-03 00:00 | INSULIN ASPART | [facility] | + + + + | 2023-01-05 00:00 | INSULIN ASPART | [facility] | + + + + | 2023-01-21 00:00 | INSULIN ASPART | [facility] | + + + + | 2023-01-27 00:00 | INSULIN ASPART | [facility] | + + + + | 2023-02-02 00:00 | INSULIN ASPART | [facility] | + + + + | 2023-02-11 00:00 | INSULIN ASPART | [facility] | + + + + | 2023-02-23 00:00 | INSULIN ASPART | [facility] | + + + + | 2023-03-05 00:00 | INSULIN ASPART | [facility] | + + + + | 2023-03-12 00:00 | INSULIN ASPART | [facility] | + + + + | 2023-01-21 00:00 | CEPHALEXIN | [facility] | + + + + | 2022-03-23 00:00 | ESTRADIOL | [facility] | + + + + | 2022-03-25 00:00 | ESTRADIOL | [facility] | + + + + | 2022-03-27 00:00 | ESTRADIOL | [facility] | + + + + | 2022-03-28 00:00 | ESTRADIOL | [facility] | + + + + | 2022-06-18 00:00 | ESTRADIOL | [facility] | + + + + | 2022-06-22 00:00 | ESTRADIOL | [facility] | + + + + | 2022-07-03 00:00 | ESTRADIOL | [facility] | + + + + | 2022-07-08 00:00 | ESTRADIOL | [facility] | + + + + | 2022-07-29 00:00 | ESTRADIOL | [facility] | + + + + | 2022-08-03 00:00 | ESTRADIOL | [facility] | + + + + | 2022-08-05 00:00 | ESTRADIOL | [facility] | + + + + | 2022-08-17 00:00 | ESTRADIOL | [facility] | + + + + | 2022-09-14 00:00 | ESTRADIOL | [facility] | + + + + | 2022-09-23 00:00 | ESTRADIOL | [facility] | + + + + | 2022-10-08 00:00 | ESTRADIOL | [facility] | + + + + | 2022-10-11 00:00 | ESTRADIOL | [facility] | + + + + | 2022-10-30 00:00 | ESTRADIOL | [facility] | + + + + | 2022-11-24 00:00 | ESTRADIOL | [facility] | + + + + | 2022-12-10 00:00 | ESTRADIOL | [facility] | + + + + | 2023-01-03 00:00 | ESTRADIOL | [facility] | + + + + | 2023-01-05 00:00 | ESTRADIOL | [facility] | + + + + | 2023-01-21 00:00 | ESTRADIOL | [facility] | + + + + | 2023-01-27 00:00 | ESTRADIOL | [facility] | + + + + | 2023-02-02 00:00 | ESTRADIOL | [facility] | + + + + | 2023-02-11 00:00 | ESTRADIOL | [facility] | + + + + | 2023-02-23 00:00 | ESTRADIOL | [facility] | + + + + | 2023-03-05 00:00 | ESTRADIOL | [facility] | + + + + | 2023-03-12 00:00 | ESTRADIOL | [facility] | + + + + | 2022-03-22 00:00 | estradiol 2 MG Oral Tablet | [facility] | | | | | + + + + | 2022-10-08 00:00 | NAPROXEN | [facility] | + + + + | 2021-07-31 00:00 | OMEPRAZOLE | [facility] | + + + + | 2021-07-31 00:00 | omeprazole 20 MG Delayed | [facility] | | | Release Oral Capsule | | + + + + | 2023-03-12 00:00 | ONDANSETRON HCL | [facility] | + + + + | 2022-06-22 00:00 | CEFDINIR | [facility] | + + + + | 2022-09-14 00:00 | Metoprolol Succinate | [facility] | + + + + | 2022-09-23 00:00 | Metoprolol Succinate | [facility] | + + + + | 2022-10-08 00:00 | Metoprolol Succinate | [facility] | + + + + | 2022-10-11 00:00 | Metoprolol Succinate | [facility] | + + + + | 2022-10-30 00:00 | Metoprolol Succinate | [facility] | + + + + | 2022-11-24 00:00 | Metoprolol Succinate | [facility] | + + + + | 2022-12-10 00:00 | Metoprolol Succinate | [facility] | + + + + | 2023-01-03 00:00 | Metoprolol Succinate | [facility] | + + + + | 2023-01-05 00:00 | Metoprolol Succinate | [facility] | + + + + | 2023-01-21 00:00 | Metoprolol Succinate | [facility] | + + + + | 2023-01-27 00:00 | Metoprolol Succinate | [facility] | + + + + | 2023-02-02 00:00 | Metoprolol Succinate | [facility] | + + + + | 2023-02-11 00:00 | Metoprolol Succinate | [facility] | + + + + | 2023-02-23 00:00 | Metoprolol Succinate | [facility] | + + + + | 2023-03-05 00:00 | Metoprolol Succinate | [facility] | + + + + | 2023-03-12 00:00 | Metoprolol Succinate | [facility] | + + + + | 2022-03-23 00:00 | ESTRADIOL | [facility] | + + + + | 2022-03-25 00:00 | ESTRADIOL | [facility] | + + + + | 2022-03-27 00:00 | ESTRADIOL | [facility] | + + + + | 2022-03-28 00:00 | ESTRADIOL | [facility] | + + + + | 2022-06-18 00:00 | ESTRADIOL | [facility] | + + + + | 2022-06-22 00:00 | ESTRADIOL | [facility] | + + + + | 2022-07-03 00:00 | ESTRADIOL | [facility] | + + + + | 2022-07-08 00:00 | ESTRADIOL | [facility] | + + + + | 2022-07-29 00:00 | ESTRADIOL | [facility] | + + + + | 2022-08-03 00:00 | ESTRADIOL | [facility] | + + + + | 2022-08-05 00:00 | ESTRADIOL | [facility] | + + + + | 2022-08-17 00:00 | ESTRADIOL | [facility] | + + + + | 2022-09-14 00:00 | ESTRADIOL | [facility] | + + + + | 2022-09-23 00:00 | ESTRADIOL | [facility] | + + + + | 2022-10-08 00:00 | ESTRADIOL | [facility] | + + + + | 2022-10-11 00:00 | ESTRADIOL | [facility] | + + + + | 2022-10-30 00:00 | ESTRADIOL | [facility] | + + + + | 2022-11-24 00:00 | ESTRADIOL | [facility] | + + + + | 2022-12-10 00:00 | ESTRADIOL | [facility] | + + + + | 2023-01-03 00:00 | ESTRADIOL | [facility] | + + + + | 2023-01-05 00:00 | ESTRADIOL | [facility] | + + + + | 2023-01-21 00:00 | ESTRADIOL | [facility] | + + + + | 2023-01-27 00:00 | ESTRADIOL | [facility] | + + + + | 2023-02-02 00:00 | ESTRADIOL | [facility] | + + + + | 2023-02-11 00:00 | ESTRADIOL | [facility] | + + + + | 2023-02-23 00:00 | ESTRADIOL | [facility] | + + + + | 2023-03-05 00:00 | ESTRADIOL | [facility] | + + + + | 2023-03-12 00:00 | ESTRADIOL | [facility] | + + + + | 2022-03-22 00:00 | estradiol 1 MG Oral Tablet | [facility] | | | [Estrace] | | + + + + | 2022-10-06 00:00 | FLUCONAZOLE | [facility] | + + + + | 2021-07-31 00:00 | METOCLOPRAMIDE HCL | [facility] | + + + + | 2021-07-31 00:00 | metoclopramide 10 MG Oral | [facility] | | | Tablet [Reglan] | | + + + + | 2022-06-22 00:00 | Cholecalciferol (Vitamin | [facility] | | | D3) | | + + + + | 2022-07-03 00:00 | Cholecalciferol (Vitamin | [facility] | | | D3) | | + + + + | 2022-07-08 00:00 | Cholecalciferol (Vitamin | [facility] | | | D3) | | + + + + | 2022-07-29 00:00 | Cholecalciferol (Vitamin | [facility] | | | D3) | | + + + + | 2022-08-03 00:00 | Cholecalciferol (Vitamin | [facility] | | | D3) | | + + + + | 2022-08-05 00:00 | Cholecalciferol (Vitamin | [facility] | | | D3) | | + + + + | 2022-03-23 00:00 | ASCORBIC ACID | [facility] | + + + + | 2022-03-25 00:00 | ASCORBIC ACID | [facility] | + + + + | 2022-03-27 00:00 | ASCORBIC ACID | [facility] | + + + + | 2022-03-28 00:00 | ASCORBIC ACID | [facility] | + + + + | 2022-06-18 00:00 | ASCORBIC ACID | [facility] | + + + + | 2022-06-22 00:00 | ASCORBIC ACID | [facility] | + + + + | 2022-07-03 00:00 | ASCORBIC ACID | [facility] | + + + + | 2022-07-08 00:00 | ASCORBIC ACID | [facility] | + + + + | 2022-07-29 00:00 | ASCORBIC ACID | [facility] | + + + + | 2022-08-03 00:00 | ASCORBIC ACID | [facility] | + + + + | 2022-08-05 00:00 | ASCORBIC ACID | [facility] | + + + + | 2022-08-17 00:00 | ASCORBIC ACID | [facility] | + + + + | 2022-09-14 00:00 | ASCORBIC ACID | [facility] | + + + + | 2022-09-23 00:00 | ASCORBIC ACID | [facility] | + + + + | 2022-10-08 00:00 | ASCORBIC ACID | [facility] | + + + + | 2022-10-11 00:00 | ASCORBIC ACID | [facility] | + + + + | 2022-10-30 00:00 | ASCORBIC ACID | [facility] | + + + + | 2022-11-24 00:00 | ASCORBIC ACID | [facility] | + + + + | 2022-12-10 00:00 | ASCORBIC ACID | [facility] | + + + + | 2023-01-03 00:00 | ASCORBIC ACID | [facility] | + + + + | 2023-01-05 00:00 | ASCORBIC ACID | [facility] | + + + + | 2023-01-21 00:00 | ASCORBIC ACID | [facility] | + + + + | 2023-01-27 00:00 | ASCORBIC ACID | [facility] | + + + + | 2023-02-02 00:00 | ASCORBIC ACID | [facility] | + + + + | 2023-02-11 00:00 | ASCORBIC ACID | [facility] | + + + + | 2023-02-23 00:00 | ASCORBIC ACID | [facility] | + + + + | 2023-03-05 00:00 | ASCORBIC ACID | [facility] | + + + + | 2023-03-12 00:00 | ASCORBIC ACID | [facility] | + + + + | 2022-03-22 00:00 | ascorbic acid 500 MG Oral | [facility] | | | Tablet | | + + + + | 2022-03-23 00:00 | AMLODIPINE BESYLATE | [facility] | + + + + | 2022-03-25 00:00 | AMLODIPINE BESYLATE | [facility] | + + + + | 2022-03-27 00:00 | AMLODIPINE BESYLATE | [facility] | + + + + | 2022-03-28 00:00 | AMLODIPINE BESYLATE | [facility] | + + + + | 2022-06-18 00:00 | AMLODIPINE BESYLATE | [facility] | + + + + | 2022-06-22 00:00 | AMLODIPINE BESYLATE | [facility] | + + + + | 2022-07-03 00:00 | AMLODIPINE BESYLATE | [facility] | + + + + | 2022-07-08 00:00 | AMLODIPINE BESYLATE | [facility] | + + + + | 2022-07-29 00:00 | AMLODIPINE BESYLATE | [facility] | + + + + | 2022-08-03 00:00 | AMLODIPINE BESYLATE | [facility] | + + + + | 2022-08-05 00:00 | AMLODIPINE BESYLATE | [facility] | + + + + | 2022-08-17 00:00 | AMLODIPINE BESYLATE | [facility] | + + + + | 2022-09-14 00:00 | AMLODIPINE BESYLATE | [facility] | + + + + | 2022-09-23 00:00 | AMLODIPINE BESYLATE | [facility] | + + + + | 2022-10-08 00:00 | AMLODIPINE BESYLATE | [facility] | + + + + | 2022-10-11 00:00 | AMLODIPINE BESYLATE | [facility] | + + + + | 2022-10-30 00:00 | AMLODIPINE BESYLATE | [facility] | + + + + | 2022-11-24 00:00 | AMLODIPINE BESYLATE | [facility] | + + + + | 2022-12-10 00:00 | AMLODIPINE BESYLATE | [facility] | + + + + | 2023-01-03 00:00 | AMLODIPINE BESYLATE | [facility] | + + + + | 2023-01-05 00:00 | AMLODIPINE BESYLATE | [facility] | + + + + | 2023-01-21 00:00 | AMLODIPINE BESYLATE | [facility] | + + + + | 2023-01-27 00:00 | AMLODIPINE BESYLATE | [facility] | + + + + | 2023-02-02 00:00 | AMLODIPINE BESYLATE | [facility] | + + + + | 2023-02-11 00:00 | AMLODIPINE BESYLATE | [facility] | + + + + | 2023-02-23 00:00 | AMLODIPINE BESYLATE | [facility] | + + + + | 2023-03-05 00:00 | AMLODIPINE BESYLATE | [facility] | + + + + | 2023-03-12 00:00 | AMLODIPINE BESYLATE | [facility] | + + + + | 2022-03-22 00:00 | amlodipine 2.5 MG Oral | [facility] | | | Tablet | | + + + + | 2021-03-01 00:00 | CEPHALEXIN | [facility] | + + + + | 2021-07-14 00:00 | CEPHALEXIN | [facility] | + + + + | 2021-10-25 00:00 | CEPHALEXIN | [facility] | + + + + | 2022-02-14 00:00 | CEPHALEXIN | [facility] | + + + + | 2021-03-01 00:00 | cephalexin 500 MG Oral | [facility] | | | Capsule | | + + + + | 2021-07-14 00:00 | cephalexin 500 MG Oral | [facility] | | | Capsule | | + + + + | 2021-10-25 00:00 | cephalexin 500 MG Oral | [facility] | | | Capsule | | + + + + | 2022-02-14 00:00 | cephalexin 500 MG Oral | [facility] | | | Capsule | | + + + + | 2022-03-22 00:00 | Ferrous Sulfate | [facility] | + + + + | 2022-03-22 00:00 | ferrous sulfate 325 MG | [facility] | | | Oral Tablet | | + + + + | 2022-02-13 00:00 | ONDANSETRON | [facility] | + + + + | 2023-01-05 00:00 | ONDANSETRON | [facility] | + + + + | 2022-02-13 00:00 | ondansetron 8 MG | [facility] | | | Disintegrating Oral Tablet | | + + + + | 2022-03-18 00:00 | PROCHLORPERAZINE MALEATE | [facility] | + + + + | 2022-03-18 00:00 | prochlorperazine 5 MG Oral | [facility] | | | Tablet | | + + + + | 2022-03-23 00:00 | ACETAMINOPHEN | [facility] | + + + + | 2022-03-25 00:00 | ACETAMINOPHEN | [facility] | + + + + | 2022-03-27 00:00 | ACETAMINOPHEN | [facility] | + + + + | 2022-03-28 00:00 | ACETAMINOPHEN | [facility] | + + + + | 2022-03-22 00:00 | acetaminophen 325 MG Oral | [facility] | | | Tablet | | + + + + | 2022-03-23 00:00 | LISINOPRIL | [facility] | + + + + | 2022-03-25 00:00 | LISINOPRIL | [facility] | + + + + | 2022-03-27 00:00 | LISINOPRIL | [facility] | + + + + | 2022-03-28 00:00 | LISINOPRIL | [facility] | + + + + | 2022-06-18 00:00 | LISINOPRIL | [facility] | + + + + 2022-06-22 00:00 | LISINOPRIL | [facility] | + + + + | 2022-07-03 00:00 | LISINOPRIL | [facility] | + + + + | 2022-07-08 00:00 | LISINOPRIL | [facility] | + + + + | 2022-07-29 00:00 | LISINOPRIL | [facility] | + + + + | 2022-08-03 00:00 | LISINOPRIL | [facility] | + + + + | 2022-08-05 00:00 | LISINOPRIL | [facility] | + + + + | 2022-08-17 00:00 | LISINOPRIL | [facility] | + + + + | 2022-09-14 00:00 | LISINOPRIL | [facility] | + + + + | 2022-09-23 00:00 | LISINOPRIL | [facility] | + + + + | 2022-10-08 00:00 | LISINOPRIL | [facility] | + + + + | 2022-10-11 00:00 | LISINOPRIL | [facility] | + + + + | 2022-10-30 00:00 | LISINOPRIL | [facility] | + + + + | 2022-11-24 00:00 | LISINOPRIL | [facility] | + + + + | 2022-12-10 00:00 | LISINOPRIL | [facility] | + + + + | 2023-01-03 00:00 | LISINOPRIL | [facility] | + + + + | 2023-01-05 00:00 | LISINOPRIL | [facility] | + + + + | 2023-01-21 00:00 | LISINOPRIL | [facility] | + + + + | 2023-01-27 00:00 | LISINOPRIL | [facility] | + + + + | 2023-02-02 00:00 | LISINOPRIL | [facility] | + + + + | 2023-02-11 00:00 | LISINOPRIL | [facility] | + + + + | 2023-02-23 00:00 | LISINOPRIL | [facility] | + + + + | 2023-03-05 00:00 | LISINOPRIL | [facility] | + + + + | 2023-03-12 00:00 | LISINOPRIL | [facility] | + + + + | 2022-03-22 00:00 | lisinopril 10 MG Oral | [facility] | | | Tablet | | + + + + | 2022-03-22 00:00 | METRONIDAZOLE | [facility] | + + + + | 2022-03-22 00:00 | metronidazole 250 MG Oral | [facility] | | | Tablet | | + + + + | 2022-06-22 00:00 | FENOFIBRATE | [facility] | + + + + | 2022-07-03 00:00 | FENOFIBRATE | [facility] | + + + + | 2022-07-08 00:00 | FENOFIBRATE | [facility] | + + + + | 2022-07-29 00:00 | FENOFIBRATE | [facility] | + + + + | 2022-08-03 00:00 | FENOFIBRATE | [facility] | + + + + | 2022-08-05 00:00 | FENOFIBRATE | [facility] | + + + + | 2022-08-17 00:00 | FENOFIBRATE | [facility] | + + + + | 2022-09-14 00:00 | FENOFIBRATE | [facility] | + + + + | 2022-09-23 00:00 | FENOFIBRATE | [facility] | + + + + | 2022-10-08 00:00 | FENOFIBRATE | [facility] | + + + + | 2022-10-11 00:00 | FENOFIBRATE | [facility] | + + + + | 2022-10-30 00:00 | FENOFIBRATE | [facility] | + + + + | 2022-11-24 00:00 | FENOFIBRATE | [facility] | + + + + | 2022-12-10 00:00 | FENOFIBRATE | [facility] | + + + + | 2023-01-03 00:00 | FENOFIBRATE | [facility] | + + + + | 2023-01-05 00:00 | FENOFIBRATE | [facility] | + + + + | 2023-01-21 00:00 | FENOFIBRATE | [facility] | + + + + | 2023-01-27 00:00 | FENOFIBRATE | [facility] | + + + + | 2023-02-02 00:00 | FENOFIBRATE | [facility] | + + + + | 2023-02-11 00:00 | FENOFIBRATE | [facility] | + + + + | 2023-02-23 00:00 | FENOFIBRATE | [facility] | + + + + | 2023-03-05 00:00 | FENOFIBRATE | [facility] | + + + + | 2023-03-12 00:00 | FENOFIBRATE | [facility] | + + + + | 2022-03-23 00:00 | Fenofibrate | [facility] | | | Nanocrystallized | | + + + + | 2022-03-25 00:00 | Fenofibrate | [facility] | | | Nanocrystallized | | + + + + | 2022-03-27 00:00 | Fenofibrate | [facility] | | | Nanocrystallized | | + + + + | 2022-03-28 00:00 | Fenofibrate | [facility] | | | Nanocrystallized | | + + + + | 2022-06-18 00:00 | Fenofibrate | [facility] | | | Nanocrystallized | | + + + + | 2022-06-22 00:00 | Fenofibrate | [facility] | | | Nanocrystallized | | + + + + | 2022-07-03 00:00 | Fenofibrate | [facility] | | | Nanocrystallized | | + + + + | 2022-07-08 00:00 | Fenofibrate | [facility] | | | Nanocrystallized | | + + + + | 2022-07-29 00:00 | Fenofibrate | [facility] | | | Nanocrystallized | | + + + + | 2022-08-03 00:00 | Fenofibrate | [facility] | | | Nanocrystallized | | + + + + | 2022-08-05 00:00 | Fenofibrate | [facility] | | | Nanocrystallized | | + + + + | 2022-08-17 00:00 | Fenofibrate | [facility] | | | Nanocrystallized | | + + + + | 2022-09-14 00:00 | Fenofibrate | [facility] | | | Nanocrystallized | | + + + + | 2022-09-23 00:00 | Fenofibrate | [facility] | | | Nanocrystallized | | + + + + | 2022-10-08 00:00 | Fenofibrate | [facility] | | | Nanocrystallized | | + + + + | 2022-10-11 00:00 | Fenofibrate | [facility] | | | Nanocrystallized | | + + + + | 2022-10-30 00:00 | Fenofibrate | [facility] | | | Nanocrystallized | | + + + + | 2022-11-24 00:00 | Fenofibrate | [facility] | | | Nanocrystallized | | + + + + | 2022-12-10 00:00 | Fenofibrate | [facility] | | | Nanocrystallized | | + + + + | 2023-01-03 00:00 | Fenofibrate | [facility] | | | Nanocrystallized | | + + + + | 2023-01-05 00:00 | Fenofibrate | [facility] | | | Nanocrystallized | | + + + + | 2023-01-21 00:00 | Fenofibrate | [facility] | | | Nanocrystallized | | + + + + | 2023-01-27 00:00 | Fenofibrate | [facility] | | | Nanocrystallized | | + + + + | 2023-02-02 00:00 | Fenofibrate | [facility] | | | Nanocrystallized | | + + + + | 2023-02-11 00:00 | Fenofibrate | [facility] | | | Nanocrystallized | | + + + + | 2023-02-23 00:00 | Fenofibrate | [facility] | | | Nanocrystallized | | + + + + | 2023-03-05 00:00 | Fenofibrate | [facility] | | | Nanocrystallized | | + + + + | 2023-03-12 00:00 | Fenofibrate | [facility] | | | Nanocrystallized | | + + + + | 2022-03-22 00:00 | fenofibrate 160 MG Oral | [facility] | | | Tablet | | + + + + | 2016-02-03 00:00 | CIPROFLOXACIN HCL/DEXAMETH | [facility] | | | | | + + + + | 2016-02-03 00:00 | ciprofloxacin 3 MG/ML / | [facility] | | | dexamethasone 1 MG/ML Otic | | | | Suspensio | | + + + + | 2022-03-18 00:00 | FENOFIBRATE | [facility] | | | NANOCRYSTALLIZED | | + + + + | 2022-03-18 00:00 | fenofibrate 48 MG Oral | [facility] | | | Tablet | | + + + + | 2022-09-23 00:00 | NITROFURANTOIN MONOHYD | [facility] | | | MACROCR | | + + + + | 2022-03-22 00:00 | 3 ML insulin glargine 100 | [facility] | | | UNT/ML Pen Injector | | | | [Lantus] | | + + + + | 2022-03-23 00:00 | INSULIN | [facility] | | | HUM. VIVIANRECAPOORVALOG | | + + + + | 2022-03-25 00:00 | INSULIN | [facility] | | | GLAALESSIAHUMOrlandoRECOrlandoANLOG | | + + + + | 2022-03-27 00:00 | INSULIN | [facility] | | | GLARGINE,HUM.REC.ANLOG | | + + + + | 2022-03-28 00:00 | INSULIN | [facility] | | | GLARGINE,HUM.REC.ANLOG | | + + + + | 2022-06-18 00:00 | INSULIN | [facility] | | | GLARGINE,HUM.REC.ANLOG | | + + + + | 2022-06-22 00:00 | INSULIN | [facility] | | | GLARGINE,HUM.REC.ANLOG | | + + + + | 2022-07-03 00:00 | INSULIN | [facility] | | | GLARGINE,HUM.REC.ANLOG | | + + + + | 2022-07-08 00:00 | INSULIN | [facility] | | | GLAFARRUKHE,HUM.REC.ANLOG | | + + + + | 2022-07-29 00:00 | INSULIN | [facility] | | | GLAFARRUKHE,HUM.REC.ANLOG | | + + + + | 2022-08-03 00:00 | INSULIN | [facility] | | | GLARDAWOODE,HUM.REC.ANLOG | | + + + + | 2022-08-05 00:00 | INSULIN | [facility] | | | GLARGINE,HUM.REC.ANLOG | | + + + + | 2022-08-17 00:00 | INSULIN | [facility] | | | [facility]ANLOG | | + + + + | 2022-09-14 00:00 | INSULIN | [facility] | | | HUM. VIVIANRECOrlandoANLOG | | + + + + | 2022-09-23 00:00 | INSULIN | [facility] | | | HUM. VIVIANRECOrlandoANLOG | | + + + + | 2022-10-08 00:00 | INSULIN | [facility] | | | HUM. VIVIANRECOrlandoANLOG | | + + + + | 2022-10-11 00:00 | INSULIN | [facility] | | | GLARGINE,HUM.REC.ANLOG | | + + + + | 2022-10-30 00:00 | INSULIN | [facility] | | | GLARGINE,HUM.REC.ANLOG | | + + + + | 2022-11-24 00:00 | INSULIN | [facility] | | | GLARGINE,HUM.REC.ANLOG | | + + + + | 2022-12-10 00:00 | INSULIN | [facility] | | | GLARGINE,HUM.REC.ANLOG | | + + + + | 2023-01-03 00:00 | INSULIN | [facility] | | | GLARGINE,HUM.REC.ANLOG | | + + + + | 2023-01-05 00:00 | INSULIN | [facility] | | | GLAFARRUKHEHUM.REC.ANLOG | | + + + + | 2023-01-21 00:00 | INSULIN | [facility] | | | GLAALESSIA,HUM.REC.ANLOG | | + + + + | 2023-01-27 00:00 | INSULIN | [facility] | | | GLAFARRUKHEHUM.REC.ANLOG | | + + + + | 2023-02-02 00:00 | INSULIN | [facility] | | | GLARGINE,HUM.REC.ANLOG | | + + + + | 2023-02-11 00:00 | INSULIN | [facility] | | | [facility] | | + + + + | 2023-02-23 00:00 | INSULIN | [facility] | | | [facility]REC[facility]ANLOG | | + + + + | 2023-03-05 00:00 | INSULIN | [facility] | | | [facility]REC[facility] | | + + + + | 2023-03-12 00:00 | INSULIN | [facility] | | | VIVIANHUMOrlandoRECOrlandoANLOG | | + + + + | 2022-03-22 00:00 | 3 ML insulin detemir 100 | [facility] | | | UNT/ML Pen Injector | | | | [Levemir] | | + + + + | 2022-03-23 00:00 | INSULIN DETEMIR | [facility] | + + + + | 2022-03-25 00:00 | INSULIN DETEMIR | [facility] | + + + + | 2022-03-27 00:00 | INSULIN DETEMIR | [facility] | + + + + | 2022-03-28 00:00 | INSULIN DETEMIR | [facility] | + + + + | 2022-06-18 00:00 | INSULIN DETEMIR | [facility] | + + + + | 2022-06-22 00:00 | INSULIN DETEMIR | [facility] | + + + + | 2022-07-03 00:00 | INSULIN DETEMIR | [facility] | + + + + | 2022-07-08 00:00 | INSULIN DETEMIR | [facility] | + + + + | 2022-07-29 00:00 | INSULIN DETEMIR | [facility] | + + + + | 2022-08-03 00:00 | INSULIN DETEMIR | [facility] | + + + + | 2022-08-05 00:00 | INSULIN DETEMIR | [facility] | + + + + | 2022-08-17 00:00 | INSULIN DETEMIR | [facility] | + + + + | 2022-09-14 00:00 | INSULIN DETEMIR | [facility] | + + + + | 2022-09-23 00:00 | INSULIN DETEMIR | [facility] | + + + + | 2022-10-08 00:00 | INSULIN DETEMIR | [facility] | + + + + | 2022-10-11 00:00 | INSULIN DETEMIR | [facility] | + + + + | 2022-10-30 00:00 | INSULIN DETEMIR | [facility] | + + + + | 2022-11-24 00:00 | INSULIN DETEMIR | [facility] | + + + + | 2022-12-10 00:00 | INSULIN DETEMIR | [facility] | + + + + | 2023-01-03 00:00 | INSULIN DETEMIR | [facility] | + + + + | 2023-01-05 00:00 | INSULIN DETEMIR | [facility] | + + + + | 2023-01-21 00:00 | INSULIN DETEMIR | [facility] | + + + + | 2023-01-27 00:00 | INSULIN DETEMIR | [facility] | + + + + | 2023-02-02 00:00 | INSULIN DETEMIR | [facility] | + + + + | 2023-02-11 00:00 | INSULIN DETEMIR | [facility] | + + + + | 2023-02-23 00:00 | INSULIN DETEMIR | [facility] | + + + + | 2023-03-05 00:00 | INSULIN DETEMIR | [facility] | + + + + | 2023-03-12 00:00 | INSULIN DETEMIR | [facility] | + + + + | 2021-01-22 00:00 | HYDROCODONE | [facility] | | | BIT/ACETAMINOPHEN | | + + + + | 2022-12-10 00:00 | HYDROCODONE | [facility] | | | BIT/ACETAMINOPHEN | | + + + + | 2021-01-22 00:00 | acetaminophen 325 MG / | [facility] | | | hydrocodone bitartrate 5 MG | | | | Oral Tabl | | + + + + | 2022-03-23 00:00 | ROSUVASTATIN CALCIUM | [facility] | + + + + | 2022-03-25 00:00 | ROSUVASTATIN CALCIUM | [facility] | + + + + | 2022-03-27 00:00 | ROSUVASTATIN CALCIUM | [facility] | + + + + | 2022-03-28 00:00 | ROSUVASTATIN CALCIUM | [facility] | + + + + | 2022-06-18 00:00 | ROSUVASTATIN CALCIUM | [facility] | + + + + | 2022-06-22 00:00 | ROSUVASTATIN CALCIUM | [facility] | + + + + | 2022-07-03 00:00 | ROSUVASTATIN CALCIUM | [facility] | + + + + | 2022-07-08 00:00 | ROSUVASTATIN CALCIUM | [facility] | + + + + | 2022-07-29 00:00 | ROSUVASTATIN CALCIUM | [facility] | + + + + | 2022-08-03 00:00 | ROSUVASTATIN CALCIUM | [facility] | + + + + | 2022-08-05 00:00 | ROSUVASTATIN CALCIUM | [facility] | + + + + | 2022-08-17 00:00 | ROSUVASTATIN CALCIUM | [facility] | + + + + | 2022-09-14 00:00 | ROSUVASTATIN CALCIUM | [facility] | + + + + | 2022-09-23 00:00 | ROSUVASTATIN CALCIUM | [facility] | + + + + | 2022-10-08 00:00 | ROSUVASTATIN CALCIUM | [facility] | + + + + | 2022-10-11 00:00 | ROSUVASTATIN CALCIUM | [facility] | + + + + | 2022-10-30 00:00 | ROSUVASTATIN CALCIUM | [facility] | + + + + | 2022-11-24 00:00 | ROSUVASTATIN CALCIUM | [facility] | + + + + | 2022-12-10 00:00 | ROSUVASTATIN CALCIUM | [facility] | + + + + | 2023-01-03 00:00 | ROSUVASTATIN CALCIUM | [facility] | + + + + | 2023-01-05 00:00 | ROSUVASTATIN CALCIUM | [facility] | + + + + | 2023-01-21 00:00 | ROSUVASTATIN CALCIUM | [facility] | + + + + | 2023-01-27 00:00 | ROSUVASTATIN CALCIUM | [facility] | + + + + | 2023-02-02 00:00 | ROSUVASTATIN CALCIUM | [facility] | + + + + | 2023-02-11 00:00 | ROSUVASTATIN CALCIUM | [facility] | + + + + | 2023-02-23 00:00 | ROSUVASTATIN CALCIUM | [facility] | + + + + | 2023-03-05 00:00 | ROSUVASTATIN CALCIUM | [facility] | + + + + | 2023-03-12 00:00 | ROSUVASTATIN CALCIUM | [facility] | + + + + | 2022-03-22 00:00 | rosuvastatin calcium 10 MG | [facility] | | | Oral Tablet [Crestor] | | + + + + | 2021-01-22 00:00 | TAMSULOSIN HCL | [facility] | + + + + | 2021-01-22 00:00 | tamsulosin hydrochloride | [facility] | | | 0.4 MG Oral Capsule | | | | [Flomax] | | + + + + | 2022-03-23 00:00 | LIPASE/PROTEASE/AMYLASE | [facility] | + + + + | 2022-03-25 00:00 | LIPASE/PROTEASE/AMYLASE | [facility] | + + + + | 2022-03-27 00:00 | LIPASE/PROTEASE/AMYLASE | [facility] | + + + + | 2022-03-28 00:00 | LIPASE/PROTEASE/AMYLASE | [facility] | + + + + | 2022-06-18 00:00 | LIPASE/PROTEASE/AMYLASE | [facility] | + + + + | 2022-06-22 00:00 | LIPASE/PROTEASE/AMYLASE | [facility] | + + + + | 2022-07-03 00:00 | LIPASE/PROTEASE/AMYLASE | [facility] | + + + + | 2022-07-08 00:00 | LIPASE/PROTEASE/AMYLASE | [facility] | + + + + | 2022-07-29 00:00 | LIPASE/PROTEASE/AMYLASE | [facility] | + + + + | 2022-08-03 00:00 | LIPASE/PROTEASE/AMYLASE | [facility] | + + + + | 2022-08-05 00:00 | LIPASE/PROTEASE/AMYLASE | [facility] | + + + + | 2022-08-17 00:00 | LIPASE/PROTEASE/AMYLASE | [facility] | + + + + | 2022-09-14 00:00 | LIPASE/PROTEASE/AMYLASE | [facility] | + + + + | 2022-09-23 00:00 | LIPASE/PROTEASE/AMYLASE | [facility] | + + + + | 2022-10-08 00:00 | LIPASE/PROTEASE/AMYLASE | [facility] | + + + + | 2022-10-11 00:00 | LIPASE/PROTEASE/AMYLASE | [facility] | + + + + | 2022-10-30 00:00 | LIPASE/PROTEASE/AMYLASE | [facility] | + + + + | 2022-11-24 00:00 | LIPASE/PROTEASE/AMYLASE | [facility] | + + + + | 2022-12-10 00:00 | LIPASE/PROTEASE/AMYLASE | [facility] | + + + + | 2023-01-03 00:00 | LIPASE/PROTEASE/AMYLASE | [facility] | + + + + | 2023-01-05 00:00 | LIPASE/PROTEASE/AMYLASE | [facility] | + + + + | 2023-01-21 00:00 | LIPASE/PROTEASE/AMYLASE | [facility] | + + + + | 2023-01-27 00:00 | LIPASE/PROTEASE/AMYLASE | [facility] | + + + + | 2023-02-02 00:00 | LIPASE/PROTEASE/AMYLASE | [facility] | + + + + | 2023-02-11 00:00 | LIPASE/PROTEASE/AMYLASE | [facility] | + + + + | 2023-02-23 00:00 | LIPASE/PROTEASE/AMYLASE | [facility] | + + + + | 2023-03-05 00:00 | LIPASE/PROTEASE/AMYLASE | [facility] | + + + + | 2023-03-12 00:00 | LIPASE/PROTEASE/AMYLASE | [facility] | + + + + | 2022-03-22 00:00 | amylase [id number] UNT / lipase | [facility] | | | 6000 UNT / protease [id number] | | | | UNT Del | | + + + + | 2023-01-05 00:00 | HYDROMORPHONE HCL | [facility] | + + + + | 2022-11-24 00:00 | DICYCLOMINE HCL | [facility] | + + + + | 2022-12-10 00:00 | DICYCLOMINE HCL | [facility] | + + + + | 2023-01-03 00:00 | DICYCLOMINE HCL | [facility] | + + + + | 2023-01-05 00:00 | DICYCLOMINE HCL | [facility] | + + + + | 2023-01-21 00:00 | DICYCLOMINE HCL | [facility] | + + + + | 2023-01-27 00:00 | DICYCLOMINE HCL | [facility] | + + + + | 2023-02-02 00:00 | DICYCLOMINE HCL | [facility] | + + + + | 2023-02-11 00:00 | DICYCLOMINE HCL | [facility] | + + + + | 2023-02-23 00:00 | DICYCLOMINE HCL | [facility] | + + + + | 2023-03-05 00:00 | DICYCLOMINE HCL | [facility] | + + + + | 2023-03-12 00:00 | DICYCLOMINE HCL | [facility] | + + + + Problems + + + + | date | description | facility | + + + + | 2014-05-31 00:00 | DKA (diabetic | [facility] | | | ketoacidoses) | | + + + + | 2014-05-31 00:00 | Sepsis | [facility] | + + + + | 2014-05-31 00:00 | Diabetes mellitus with | [facility] | | | ketoacidosis | | + + + + | 2014-05-31 00:00 | Dehydration | [facility] | + + + + | 2016-02-03 00:00 | Bilateral otitis externa | [facility] | + + + + | 2016-02-03 00:00 | Acute otitis media of both | [facility] | | | ears with perforation | | + + + + | 2018-01-03 00:00 | DKA (diabetic | [facility] | | | ketoacidoses) | | + + + + | 2018-01-03 00:00 | Diabetic ketoacidosis | [facility] | + + + + | 2018-01-03 00:00 | Hypertriglyceridemia | [facility] | + + + + | 2018-01-03 00:00 | Hypokalemia | [facility] | + + + + | 2018-01-03 00:00 | Pancreatitis | [facility] | + + + + | 2018-03-14 00:00 | DKA, type 1 | [facility] | + + + + | 2018-03-14 00:00 | Type 1 diabetes mellitus | [facility] | | | with ketoacidosis | | + + + + | 2019-03-18 00:00 | Chest wall pain | [facility] | + + + + | 2021-01-20 00:00 | Urinary retention | [facility] | + + + + | 2021-01-20 00:00 | Retention of urine | [facility] | + + + + | 2021-01-20 00:00 | Hyperglycemia | [facility] | + + + + | 2021-01-29 00:00 | Encounter for medical | [facility] | | | screening examination | | + + + + | 2021-01-29 00:00 | Encounter for Ellis | [facility] | | | catheter removal | | + + + + | 2021-02-02 00:00 | Abdominal pain | [facility] | + + + + | 2021-02-02 00:00 | Nausea and vomiting | [facility] | + + + + | 2021-03-01 00:00 | UTI (urinary tract | [facility] | | | infection) | | + + + + | 2021-03-01 00:00 | Urinary tract infection | [facility] | + + + + | 2021-07-21 00:00 | Acute chest wall pain | [facility] | + + + + | 2021-07-31 00:00 | Acute gastritis | [facility] | + + + + | [...] + + | 2021-07-31 11:38 | OTHER ASSISTED (CURRENT) | [facility] | | | DRUG [...] + + + | 2021-09-09 20:54 | 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 | [facility] | | | INSULIN | | + + + + | 2021-09-09 20:54 | OTHER ASSISTED (CURRENT) | [facility] | | | DRUG [...] 2021-09-27 00:00 | Allergic reaction caused | [facility] | | | by a drug | | + + + + | 2021-09-27 00:00 | Allergic reaction to drug | [facility] | + + + + | [...] EFFECT OF | [facility] | | | [id number]-[id number] | | | | INHIBITORS, INIT | | + + + + | 2021-09-27 21:10 | ASSISTED (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 OF | [facility] | | | INSULIN | | + + + + | 2021-09-27 21:10 | OTHER ASSISTED (CURRENT) | [facility] | | | DRUG [...] + + + | 2021-10-24 21:04 | 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 | [facility] | | | 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 | | + + + + | 2021-10-24 21:04 | OTHER ASSISTED (CURRENT) | [facility] | | | DRUG [...] + + + | 2021-11-02 23:59 | 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 | [facility] | | | 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 | | + + + + | 2021-11-02 23:59 | OTHER ASSISTED (CURRENT) | [facility] | | | DRUG [...] + | 2021-11-08 00:00 | Lightheaded | [facility] | + + + + | 2021-11-08 00:00 | Dyspnea | [facility] | + + + + | 2021-11-08 00:00 | Non-cardiac chest pain | [facility] | + + + + | 2021-11-08 00:00 | Lightheadedness | [facility] | + + + + | [...] + + + | 2021-11-08 00:36 | 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 | [facility] | | | ORAL HYPOGLYCEMIC DRUGS | | + + + + | 2021-11-08 00:36 | OTHER ASSISTED (CURRENT) | [facility] | | | DRUG [...] + + + | 2021-11-26 22:29 | 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 | [facility] | | | 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 | | + + + + | 2021-11-26 22:29 | 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) | [facility] | | | DRUG [...] + | 2021-11-27 00:00 | Hypertension | [facility] | + + + + | 2021-11-27 00:00 | Insulin dependent diabetes | [facility] | | | mellitus | | + + + + | 2021-11-27 00:00 | Resolved abdominal pain | [facility] | + + + + | [...] + + + | 2021-12-04 20:12 | ASSISTED (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 OF | [facility] | | | INSULIN | | + + + + | 2021-12-04 20:12 | OTHER ASSISTED (CURRENT) | [facility] | | | DRUG [...] 2021-12-05 00:00 | Hordeolum externum left | [facility] | | | lower eyelid | | + + + + | 2021-12-05 00:00 | Hordeolum externum of left | [facility] | | | lower eyelid | | + + + + | 2021-12-05 00:00 | Otitis externa | [facility] | + + + + | [...] + + + | 2021-12-23 14:51 | ASSISTED (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 OF | [facility] | | | INSULIN | | + + + + | 2021-12-23 14:51 | 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) | [facility] | | | DRUG [...] + + + | 2022-02-07 23:34 | ASSISTED (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 OF | [facility] | | | INSULIN | | + + + + | 2022-02-07 23:34 | 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) | [facility] | | | DRUG [...] | Contusion of left knee | [facility] | + + + + | 2022-02-13 [...] + + + | 2022-02-13 20:21 | 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 | [facility] | | | 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 | | + + + + | 2022-02-13 20:21 | OTHER ASSISTED (CURRENT) | [facility] | | | DRUG [...] 2022-02-17 00:00 | Hypoglycemia due to | [facility] | | | insulin | | + + + + | 2022-02-17 00:00 | Hypoglycemic reaction to | [facility] | | | insulin | | [...] + + + | 2022-02-17 03:45 | ASSISTED (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 OF | [facility] | | [...] + + + | 2022-03-04 15:28 | 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 | [facility] | | | 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 | | + + + + | 2022-03-04 15:28 | 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) | [facility] | | | DRUG [...] 2022-03-07 00:00 | Upper abdominal pain | [facility] | + + + + | 2022-03-07 00:00 | Pain of upper abdomen | [facility] | + + + + | [...] + + + | 2022-03-07 00:39 | ASSISTED (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 OF | [facility] | | | INSULIN | | + + + + | 2022-03-07 00:39 | OTHER ASSISTED (CURRENT) | [facility] | | | DRUG [...] 2022-03-12 00:00 | Candidiasis of genitalia | [facility] | + + + + | [...] + + + | 2022-03-12 02:19 | ASSISTED (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 OF | [facility] | | | INSULIN | | + + + + | 2022-03-12 02:19 | 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) | [facility] | | | DRUG [...] 2022-03-16 00:00 | CRI (chronic renal | [facility] | | | insufficiency) | | + + + + | 2022-03-16 00:00 | Diabetes | [facility] | + + + + | 2022-03-16 00:00 | Diabetes mellitus | [facility] | + + + + | 2022-03-16 00:00 | Chronic renal impairment | [facility] | + + + + | [...] + + | 2022-03-16 10:31 | 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) | [facility] | | | DRUG [...] 00:00 | Type 1 diabetes mellitus | [facility] | + + + + | 2022-03-19 00:00 | Colitis | [facility] | + + + + | [...] + + + | 2022-03-19 10:01 | ASSISTED (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 OF | [facility] | | | INSULIN | | + + + + | 2022-03-19 10:01 | ASSISTED (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 OF | [facility] | | | OPIATE ANALGESIC | | + + + + | 2022-03-19 10:01 | 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) | [facility] | | | DRUG [...] | 2022-03-26 00:00 | Chest pain | [facility] | + + + + | [...] + + + | 2022-03-26 06:58 | 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 | [facility] | | | INSULIN | | + + + + | 2022-03-26 06:58 | 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) | [facility] | | | DRUG [...] | 2022-04-21 00:00 | Epigastric pain | [facility] | + + + + | [...] + + + | 2022-04-21 07:11 | 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 | [facility] | | | INSULIN | | + + + + | 2022-04-21 07:11 | 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) | [facility] | | | DRUG [...] + + + | 2022-05-22 22:48 | ASSISTED (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 OF | [facility] | | | INSULIN | | + + + + | 2022-05-22 22:48 | OTHER ASSISTED (CURRENT) | [facility] | | | DRUG [...] 2022-05-23 00:00 | Atypical chest pain | [facility] | + + + + | [...] + + + | 2022-05-26 18:10 | 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 | [facility] | | [...] + + + | 2022-06-18 11:42 | ASSISTED (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 OF | [facility] | | | INSULIN | | + + + + | 2022-06-18 11:42 | OTHER ASSISTED (CURRENT) | [facility] | | | DRUG [...] 2022-06-21 00:00 | Acute kidney injury | [facility] | + + + + | [...] + | 2022-06-22 00:00 | Acidosis | [facility] | + + + + | 2022-07-03 00:00 | Right upper quadrant | [facility] | | | abdominal pain | [...] + + + | 2022-07-03 05:56 | ASSISTED (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 OF | [facility] | | | INSULIN | | + + + + | 2022-07-03 05:56 | OTHER ASSISTED (CURRENT) | [facility] | | | DRUG [...] 00:00 | Patient left without being | [facility] | | | seen | | + + + + | 2022-07-27 00:00 | Biliary colic | [facility] | + + + + | [...] + + | 2022-07-27 00:25 | 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) | [facility] | | | DRUG [...] + + + | 2022-07-29 08:41 | 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 | [facility] | | | INSULIN | | + + + + | 2022-07-29 08:41 | 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) | [facility] | | | DRUG [...] + | 2022-08-03 00:00 | Hyperkalemia | [facility] | + + + + | 2022-08-03 00:00 | Encounter for medication | [facility] | | | refill | | [...] + + | 2022-08-03 12:33 | OTHER ASSISTED (CURRENT) | [facility] | | | DRUG [...] + + + | 2022-09-22 21:55 | ASSISTED (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 OF | [facility] | | | INSULIN | | + + + + | 2022-09-22 21:55 | OTHER ASSISTED (CURRENT) | [facility] | | | DRUG [...] + | 2022-10-06 00:00 | Dysuria | [facility] | + + + + | [...] + + + | 2022-10-06 04:49 | ASSISTED (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 OF | [facility] | | | INSULIN | | + + + + | 2022-10-06 04:49 | OTHER ASSISTED (CURRENT) | [facility] | | | DRUG [...] + + + | 2022-10-10 22:40 | 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 | [facility] | | | INSULIN | | + + + + | 2022-10-10 22:40 | 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) | [facility] | | | DRUG [...] 00:00 | Type 1 diabetes mellitus | [facility] | | | with hyperglycemia | | + + + + | 2022-10-30 00:00 | Renal insufficiency | [facility] | + + + + | [...] + + + | 2022-10-30 01:11 | ASSISTED (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 OF | [facility] | | | INSULIN | | + + + + | 2022-10-30 01:11 | OTHER ASSISTED (CURRENT) | [facility] | | | DRUG [...] 2022-11-24 00:00 | Chronic abdominal pain | [facility] | + + + + | [...] + + + | 2022-11-24 20:55 | 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 | [facility] | | | INSULIN | | + + + + | 2022-11-24 20:55 | 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) | [facility] | | | DRUG [...] | 2022-12-07 00:00 | Acute pancreatitis | [facility] | + + + + | [...] + + + | 2022-12-08 11:00 | 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 | [facility] | | | INSULIN | | + + + + | 2022-12-08 11:00 | 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) | [facility] | | | DRUG [...] | 2023-01-03 00:00 | Recurrent pancreatitis | [facility] | + + + + | 2023-01-03 00:00 | Abdominal bloating | [facility] | + + + + | 2023-01-03 00:00 | Left against medical | [facility] | | | advice | | + [...] + + + | 2023-01-20 23:40 | ASSISTED (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 OF | [facility] | | [...] + + + | 2023-01-26 21:48 | 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 | [facility] | | [...] + + + | 2023-02-02 00:06 | ASSISTED (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 OF | [facility] | | [...] | 2023-02-11 00:00 | Positive blood | [facility] | | | test | | + + + + | 2023-02-11 00:00 | | [facility] | + + + + | [...] + + + | 2023-02-11 00:33 | 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 | [facility] | | | INSULIN | | + + + + | 2023-02-11 00:33 | 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) | [facility] | | | DRUG [...] + + + | 2023-02-23 00:40 | 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 | [facility] | | | INSULIN | | + + + + | 2023-02-23 00:40 | 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) | [facility] | | | DRUG [...] + + + | 2023-03-04 21:44 | 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 | [facility] | | | INSULIN | | + + + + | 2023-03-04 21:44 | OTHER ASSISTED (CURRENT) | [facility] | | | DRUG [...] 2023-03-12 00:00 | Poorly controlled diabetes | [facility] | | | mellitus | | [...] + + + | 2023-03-12 11:46 | ASSISTED (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 OF | [facility] | | [...] 00:00 | EXCISION OF RIGHT LARGE | [facility] | | | INTESTINE, ENDO, DIAGN | | + + + + | 2022-03-20 00:00 | EXCISION OF LEFT LARGE | [facility] | | | INTESTINE, ENDO, DIAGN | | + + + + | 2022-03-20 00:00 | EXCISION OF CECUM, ENDO, | [facility] | | | DIAGN | | + + + + | 2022-03-20 00:00 | EXCISION OF SIGMOID COLON, | [facility] | | | ENDO, DIAGN | | + + + + | 2022-03-20 00:00 | EXCISION OF RECTUM, ENDO, | [facility] | | | DIAGN | | + + + + | 2022-03-20 00:00 | TRANSFUSE NONAUT RED BLOOD | [facility] | | | CELLS IN PERIPH VEIN, PERC | | | | | | + + + + | 2022-03-20 00:00 | Colonoscopy with biopsy of | [facility] | | | colon | | + + + + Results/Labs +--------+--------+ + +---------+--------+ + | test | date | author | facility | value | unit | | | | | | | | | interpreta | | | | | | | | tion | +--------+--------+ + +---------+--------+ + + + | Result panel 1 | + + + + + + +---------+ + + | (unknown) | (no date) | (unknown) | [facility] | (no | (units | (unknown) | | | | [facility] | value) | unknown) | | | | | [facility] | | | | + + + + +---------+ + + + + | Result panel 2 | + + + + + + +---------+ + + | (unknown) | (no date) | (unknown) | [facility] | (no | (units | (unknown) | | | | [facility] | value) | unknown) | | | | | [facility] | | | | + + + + +---------+ + + + + | Result panel 3 | + + + + + + +---------+ + + | (unknown) | (no date) | (unknown) | [facility] | (no | (units | (unknown) | | | | | [facility] | value) | unknown) | | | | | [facility] | | | | + + + + +---------+ + + + + | Result panel 4 | + + + + + + +---------+ + + | (unknown) | (no date) | (unknown) | [facility] | (no | (units | (unknown) | | | | [facility] | value) | unknown) | | | | | [facility] | | | | + + + + +---------+ + + + + | Result panel 5 | + + + + + + +---------+ + + | (unknown) | (no date) | (unknown) | [facility] | (no | (units | (unknown) | | | | | [facility] | value) | unknown) | | | | | [facility] | | | | + + + + +---------+ + + + + | Result panel 6 | + + + + + + +---------+ + + | (unknown) | (no date) | (unknown) | [facility] | (no | (units | (unknown) | | | | | [facility] | value) | unknown) | | | | | [facility] | | | | + + + + +---------+ + + + + | Result panel 7 | + + + + + + +---------+ + + | (unknown) | (no date) | (unknown) | [facility] | (no | (units | (unknown) | | | | | [facility] | value) | unknown) | | | | | [facility] | | | | + + + + +---------+ + + + + | Result panel 8 | + + + + + + +---------+ + + | (unknown) | (no date) | (unknown) | [facility] | (no | (units | (unknown) | | | | | [facility] | value) | unknown) | | | | | [facility] | | | | + + + + +---------+ + + + + | Result panel 9 | + + + + + + +---------+ + + | (unknown) | (no date) | (unknown) | [facility] | (no | (units | (unknown) | | | | | [facility] | value) | unknown) | | | | | [facility] | | | | + + + + +---------+ + + + + | Result panel 10 | + + + + + + +---------+ + + | (unknown) | (no date) | (unknown) | [facility] | (no | (units | (unknown) | | | | | [facility] | value) | unknown) | | | | | [facility] | | | | + + + + +---------+ + + + + | Result panel 11 | + + + + + + +---------+ + + | (unknown) | (no date) | (unknown) | [facility] | (no | (units | (unknown) | | | | | [facility] | value) | unknown) | | | | | [facility] | | | | + + + + +---------+ + + + + | Result panel 12 | + + + + + + +---------+ + + | (unknown) | (no date) | (unknown) | [facility] | (no | (units | (unknown) | | | | | [facility] | value) | unknown) | | | | | [facility] | | | | + + + + +---------+ + + + + | Result panel 13 | + + + + + + +---------+ + + | (unknown) | (no date) | (unknown) | [facility] | (no | (units | (unknown) | | | | | [facility] | value) | unknown) | | | | | [facility] | | | | + + + + +---------+ + + + + | Result panel 14 | + + + + + + +---------+ + + | (unknown) | (no date) | (unknown) | [facility] | (no | (units | (unknown) | | | | | [facility] | value) | unknown) | | | | | [facility] | | | | + + + + +---------+ + + + + | Result panel 15 | + + + + + + +---------+ + + | (unknown) | (no date) | (unknown) | [facility] | (no | (units | (unknown) | | | | | [facility] | value) | unknown) | | | | | [facility] | | | | + + + + +---------+ + + + + | Result panel 16 | + + + + + + +---------+ + + | (unknown) | (no date) | (unknown) | [facility] | (no | (units | (unknown) | | | | | [facility] | value) | unknown) | | | | | [facility] | | | | + + + + +---------+ + + + + | Result panel 17 | + + + + + + +---------+ + + | (unknown) | (no date) | (unknown) | [facility] | (no | (units | (unknown) | | | | | [facility] | value) | unknown) | | | | | [facility] | | | | + + + + +---------+ + + + + | Result panel 18 | + + + + + + +---------+ + + | (unknown) | (no date) | (unknown) | [facility] | (no | (units | (unknown) | | | | | [facility] | value) | unknown) | | | | | [facility] | | | | + + + + +---------+ + + + + | Result panel 19 | + + + + + + +---------+ + + | (unknown) | (no date) | (unknown) | [facility] | (no | (units | (unknown) | | | | [facility] | value) | unknown) | | | | | [facility] | | | | + + + + +---------+ + + + + | Result panel 20 | + + + + + + +---------+ + + | (unknown) | (no date) | (unknown) | [facility] | (no | (units | (unknown) | | | | [facility] | value) | unknown) | | | | | [facility] | | | | + + + + +---------+ + + + + | Result panel 21 | + + + + + + +---------+ + + | (unknown) | (no date) | (unknown) | [facility] | (no | (units | (unknown) | | | | | [facility] | value) | unknown) | | | | | [facility] | | | | + + + + +---------+ + + + + | Result panel 22 | + + + + + + +---------+ + + | (unknown) | (no date) | (unknown) | [facility] | (no | (units | (unknown) | | | | | [facility] | value) | unknown) | | | | | [facility] | | | | + + + + +---------+ + + + + | Result panel 23 | + + + + + + +---------+ + + | (unknown) | (no date) | (unknown) | [facility] | (no | (units | (unknown) | | | | | [facility] | value) | unknown) | | | | | [facility] | | | | + + + + +---------+ + + + + | Result panel 24 | + + + + + + +---------+ + + | (unknown) | (no date) | (unknown) | [facility] | (no | (units | (unknown) | | | | [facility] | value) | unknown) | | | | [facility] | | | | + + + + +---------+ + + + + | Result panel 25 | + + + + + + +---------+ + + | (unknown) | (no date) | (unknown) | [facility] | (no | (units | (unknown) | | | | [facility] | value) | unknown) | | | | [facility] | | | | + + + + +---------+ + + + + | Result panel 26 | + + + + + + +---------+ + + | (unknown) | (no date) | (unknown) | [facility] | (no | (units | (unknown) | | | | [facility] | value) | unknown) | | | | [facility] | | | | + + + + +---------+ + + + + | Result panel 27 | + + + + + + +---------+ + + | (unknown) | (no date) | (unknown) | [facility] | (no | (units | (unknown) | | | | [facility] | value) | unknown) | | | | [facility] | | | | + + + + +---------+ + + + + | Result panel 28 | + + + + + + +---------+ + + | (unknown) | (no date) | (unknown) | [facility] | (no | (units | (unknown) | | | | [facility] | value) | unknown) | | | | [facility] | | | | + + + + +---------+ + + + + | Result panel 29 | + + + + + + +---------+ + + | (unknown) | (no date) | (unknown) | [facility] | (no | (units | (unknown) | | | | [facility] | value) | unknown) | | | | [facility] | | | | + + + + +---------+ + + + + | Result panel 30 | + + + + + + +---------+ + + | (unknown) | (no date) | (unknown) | [facility] | (no | (units | (unknown) | | | | [facility] | value) | unknown) | | | | [facility] | | | | + + + + +---------+ + + + + | Result panel 31 | + + + + + + +---------+ + + | (unknown) | (no date) | (unknown) | [facility] | (no | (units | (unknown) | | | | [facility] | value) | unknown) | | | | [facility] | | | | + + + + +---------+ + + + + | Result panel 32 | + + + + + + +---------+ + + | (unknown) | (no date) | (unknown) | [facility] | (no | (units | (unknown) | | | | [facility] | value) | unknown) | | | | [facility] | | | | + + + + +---------+ + + + + | Result panel 33 | + + + + + + +---------+ + + | (unknown) | (no date) | (unknown) | [facility] | (no | (units | (unknown) | | | | | [facility] | value) | unknown) | | | | | | [facility] | | | | + + + + +---------+ + + + + | Result panel 34 | + + + + + + +---------+ + + | (unknown) | (no date) | (unknown) | [facility] | (no | (units | (unknown) | | | | | [facility] | value) | unknown) | | | | | | [facility] | | | | + + + + +---------+ + + + + | Result panel 35 | + + + + + + +---------+ + + | (unknown) | (no date) | (unknown) | [facility] | (no | (units | (unknown) | | | | | [facility] | value) | unknown) | | | | | | [facility] | | | | + + + + +---------+ + + + + | Result panel 36 | + + + + + + +---------+ + + | (unknown) | (no date) | (unknown) | [facility] | (no | (units | (unknown) | | | | | [facility] | value) | unknown) | | | | | | [facility] | | | | + + + + +---------+ + + + + | Result panel 37 | + + + + + + +---------+ + + | (unknown) | (no date) | (unknown) | [facility] | (no | (units | (unknown) | | | | | [facility] | value) | unknown) | | | | | | [facility] | | | | + + + + +---------+ + + + + | Result panel 38 | + + + + + + +---------+ + + | (unknown) | (no date) | (unknown) | [facility] | (no | (units | (unknown) | | | | | [facility] | value) | unknown) | | | | | | [facility] | | | | + + + + +---------+ + + + + | Result panel 39 | + + + + + + +---------+ + + | (unknown) | (no date) | (unknown) | [facility] | (no | (units | (unknown) | | | | | [facility] | value) | unknown) | | | | | | [facility] | | | | + + + + +---------+ + + + + | Result panel 40 | + + + + + + +---------+ + + | (unknown) | (no date) | (unknown) | [facility] | (no | (units | (unknown) | | | | | [facility] | value) | unknown) | | | | | | [facility] | | | | + + + + +---------+ + + + + | Result panel 41 | + + + + + + +---------+ + + | (unknown) | (no date) | (unknown) | [facility] | (no | (units | (unknown) | | | | | [facility] value) | unknown) | | | | | [facility] | | | | + + + + +---------+ + + + + | Result panel 42 | + + + + + + +---------+ + + | (unknown) | (no date) | (unknown) | [facility] | (no | (units | (unknown) | | | | | [facility] value) | unknown) | | | [facility] | | | | + + + + +---------+ + + + + | Result panel 43 | + + + + + + +---------+ + + | (unknown) | (no date) | (unknown) | [facility] | (no | (units | (unknown) | | | | | [facility] | unknown) | | [facility] | | | | + + + + +---------+ + + + + | Result panel 44 | + + + + + + +---------+ + + | (unknown) | (no date) | (unknown) | [facility] | (no | (units | (unknown) | | | | | [facility] value[facility] | unknown) | | [facility] | | | | + + + + +---------+ + + + + | Result panel 45 | + + + + + + +---------+ + + | (unknown) | (no date) | (unknown) | [facility] | (no | (units | (unknown) | | | | | [facility] value) | unknown) | | [facility] | | | | + + + + +---------+ + + + + | Result panel 46 | + + + + + + +---------+ + + | (unknown) | (no date) | (unknown) | [facility] | (no | (units | (unknown) | | | | | [facility] value) | unknown) | | [facility] | | | | + + + + +---------+ + + + + | Result panel 47 | + + + + + + +---------+ + + | (unknown) | (no date) | (unknown) | [facility] | (no | (units | (unknown) | | | | | [facility] value) | unknown) | | [facility] | | | | + + + + +---------+ + + + + | Result panel 48 | + + + + + + +---------+ + + | (unknown) | (no date) | (unknown) | [facility] | (no | (units | (unknown) | | | | | [facility] value) | unknown) | | | [facility] | | | | + + + + +---------+ + + + + | Result panel 49 | + + + + + + +---------+ + + | (unknown) | (no date) | (unknown) | [facility] | (no | (units | (unknown) | | | | | [facility] value) | unknown) | | | [facility] | | | | + + + + +---------+ + + + + | Result panel 50 | + + + + + + +---------+ + + | (unknown) | (no date) | (unknown) | [facility] | (no | (units | (unknown) | | | | | [facility] value) | unknown) | | [facility] | | | | + + + + +---------+ + + + + | Result panel 51 | + + + + + + +---------+ + + | (unknown) | (no date) | (unknown) | [facility] | (no | (units | (unknown) | | | | | [facility] value) | unknown) | | | [facility] | | | | + + + + +---------+ + + + + | Result panel 52 | + + + + + + +---------+ + + | (unknown) | (no date) | (unknown) | [facility] | (no | (units | (unknown) | | | | | [facility] value) | unknown) | | | [facility] | | | | + + + + +---------+ + + + + | Result panel 53 | + + + + + + +---------+ + + | (unknown) | (no date) | (unknown) | [facility] | (no | (units | (unknown) | | | | | [facility] value) | unknown) | | | [facility] | | | | + + + + +---------+ + + + + | Result panel 54 | + + + + + + +---------+ + + | (unknown) | (no date) | (unknown) | [facility] | (no | (units | (unknown) | | | | | [facility] value) | unknown) | | [facility] | | | | + + + + +---------+ + + + + | Result panel 55 | + + + + + + +---------+ + + | (unknown) | (no date) | (unknown) | [facility] | (no | (units | (unknown) | | | | | [facility] value) | unknown) | | | [facility] | | | | + + + + +---------+ + + + + | Result panel 56 | + + + + + + +---------+ + + | (unknown) | (no date) | (unknown) | [facility] | (no | (units | (unknown) | | | | | [facility] value) | unknown) | | | [facility] | | | | + + + + +---------+ + + + + | Result panel 57 | + + + + + + +---------+ + + | (unknown) | (no date) | (unknown) | [facility] | (no | (units | (unknown) | | | | | [facility] value) | unknown) | | | [facility] | | | | + + + + +---------+ + + + + | Result panel 58 | + + + + + + +---------+ + + | (unknown) | (no date) | (unknown) | [facility] | (no | (units | (unknown) | | | | | [facility] value) | unknown) | | | [facility] | | | | + + + + +---------+ + + + + | Result panel 59 | + + + + + + +---------+ + + | (unknown) | (no date) | (unknown) | [facility] | (no | (units | (unknown) | | | | | [facility] | value) | unknown) | | | [facility] | | | | + + + + +---------+ + + + + | Result panel 60 | + + + + + + +---------+ + + | (unknown) | (no date) | (unknown) | [facility] | (no | (units | (unknown) | | | | | [facility] value) | unknown) | | | [facility] | | | | + + + + +---------+ + + + + | Result panel 61 | + + + + + + +---------+ + + | (unknown) | (no date) | (unknown) | [facility] | (no | (units | (unknown) | | | | | [facility] value) | unknown) | | | [facility] | | | | + + + + +---------+ + + + + | Result panel 62 | + + + + + + +---------+ + + | (unknown) | (no date) | (unknown) | [facility] | (no | (units | (unknown) | | | | | [facility] value) | unknown) | | | [facility] | | | | + + + + +---------+ + + + + | Result panel 63 | + + + + + + +---------+ + + | (unknown) | (no date) | (unknown) | [facility] | (no | (units | (unknown) | | | | | [facility] | value) | unknown) | | | | [facility] | | | | + + + + +---------+ + + + + | Result panel 64 | + + + + + + +---------+ + + | (unknown) | (no date) | (unknown) | [facility] | (no | (units | (unknown) | | | | | [facility] value) | unknown) | | | | [facility] | | | | + + + + +---------+ + + + + | Result panel 65 | + + + + + + +---------+ + + | (unknown) | (no date) | (unknown) | [facility] | (no | (units | (unknown) | | | | | [facility] value) | unknown) | | [facility] | | | | + + + + +---------+ + + + + | Result panel 66 | + + + + + + +---------+ + + | (unknown) | (no date) | (unknown) | [facility] | (no | (units | (unknown) | | | | | [facility] value) | unknown) | | | | [facility] | | | | + + + + +---------+ + + + + | Result panel 67 | + + + + + + +---------+ + + | (unknown) | (no date) | (unknown) | [facility] | (no | (units | (unknown) | | | | | [facility] | value) | unknown) | | [facility] | | | | + + + + +---------+ + + + + | Result panel 68 | + + + + + + +---------+ + + | (unknown) | (no date) | (unknown) | [facility] | (no | (units | (unknown) | | | | | [facility] | value) | unknown) | | | [facility] | | | | + + + + +---------+ + + + + | Result panel 69 | + + + + + + +---------+ + + | (unknown) | (no date) | (unknown) | [facility] | (no | (units | (unknown) | | | | | [facility] | value) | unknown) | | | [facility] | | | | + + + + +---------+ + + + + | Result panel 70 | + + + + + + +---------+ + + | (unknown) | (no date) | (unknown) | [facility] | (no | (units | (unknown) | | | | | [facility] value) | unknown) | | | | [facility] | | | | + + + + +---------+ + + + + | Result panel 71 | + + + + + + +---------+ + + | (unknown) | (no date) | (unknown) | [facility] | (no | (units | (unknown) | | | | | [facility] value) | unknown) | | | [facility] | | | | + + + + +---------+ + + + + | Result panel 72 | + + + + + + +---------+ + + | (unknown) | (no date) | (unknown) | [facility] | (no | (units | (unknown) | | | | | [facility] value) | unknown) | | | | [facility] | | | | + + + + +---------+ + + + + | Result panel 73 | + + + + + + +---------+ + + | (unknown) | (no date) | (unknown) | [facility] | (no | (units | (unknown) | | | | | [facility] value) | unknown) | | | [facility] | | | | + + + + +---------+ + + + + | Result panel 74 | + + + + + + +---------+ + + | (unknown) | (no date) | (unknown) | [facility] | (no | (units | (unknown) | | | | | [facility] | value) | unknown) | | | | [facility] | | | | + + + + +---------+ + + + + | Result panel 75 | + + + + + + +---------+ + + | (unknown) | (no date) | (unknown) | [facility] | (no | (units | (unknown) | | | | | [facility] value) | unknown) | | [facility] | [facility] | | | | + + + + +---------+ + + + + | Result panel 76 | + + + + + + +---------+ + + | (unknown) | (no date) | (unknown) | [facility] | (no | (units | (unknown) | | | | | [facility] | value) | unknown) | | | | [facility] | | | | + + + + +---------+ + + + + | Result panel 77 | + + + + + + +---------+ + + | (unknown) | (no date) | (unknown) | [facility] | (no | (units | (unknown) | | | | | [facility] | value) | unknown) | | [facility] | [facility] | | | | + + + + +---------+ + + + + | Result panel 78 | + + + + + + +---------+ + + | (unknown) | (no date) | (unknown) | [facility] | (no | (units | (unknown) | | | | | [facility] | value) | unknown) | | | | [facility] | | | | + + + + +---------+ + + + + | Result panel 79 | + + + + + + +---------+ + + | (unknown) | (no date) | (unknown) | [facility] | (no | (units | (unknown) | | | | | [facility] | value) | unknown) | | | | [facility] | | | | + + + + +---------+ + + + + | Result panel 80 | + + + + + + +---------+ + + | (unknown) | (no date) | (unknown) | [facility] | (no | (units | (unknown) | | | | | [facility] | value) | unknown) | | | | [facility] | | | | + + + + +---------+ + + + + | Result panel 81 | + + + + + + +---------+ + + | (unknown) | (no date) | (unknown) | [facility] | (no | (units | (unknown) | | | | | [facility] | value) | unknown) | | [facility] | | | | + + + + +---------+ + + + + | Result panel 82 | + + + + + + +---------+ + + | (unknown) | (no date) | (unknown) | [facility] | (no | (units | (unknown) | | | | | [facility] | value) | unknown) | | | | [facility] | | | | + + + + +---------+ + + + + | Result panel 83 | + + + + + + +---------+ + + | (unknown) | (no date) | (unknown) | [facility] | (no | (units | (unknown) | | | | | [facility] | value) | unknown) | | | | [facility] | | | | + + + + +---------+ + + + + | Result panel 84 | + + + + + + +---------+ + + | (unknown) | (no date) | (unknown) | [facility] | (no | (units | (unknown) | | | | | [facility] | value) | unknown) | | | | [facility] | | | | + + + + +---------+ + + + + | Result panel 85 | + + + + + + +---------+ + + | (unknown) | (no date) | (unknown) | [facility] | (no | (units | (unknown) | | | | | [facility] | value) | unknown) | | | | [facility] | | | | + + + + +---------+ + + + + | Result panel 86 | + + + + + + +---------+ + + | (unknown) | (no date) | (unknown) | [facility] | (no | (units | (unknown) | | | | | [facility] value) | unknown) | | | | [facility] | | | | + + + + +---------+ + + + + | Result panel 87 | + + + + + + +---------+ + + | (unknown) | (no date) | (unknown) | [facility] | (no | (units | (unknown) | | | | | [facility] value) | unknown) | | | | [facility] | | | | + + + + +---------+ + + + + | Result panel 88 | + + + + + + +---------+ + + | (unknown) | (no date) | (unknown) | [facility] | (no | (units | (unknown) | | | | | [facility] | value) | unknown) | | | | [facility] | | | | + + + + +---------+ + + + + | Result panel 89 | + + + + + + +---------+ + + | (unknown) | (no date) | (unknown) | [facility] | (no | (units | (unknown) | | | | | [facility] | value) | unknown) | | [facility] | | | | + + + + +---------+ + + + + | Result panel 90 | + + + + + + +---------+ + + | (unknown) | (no date) | (unknown) | [facility] | (no | (units | (unknown) | | | | | [facility] | value) | unknown) | | [facility] | | | | + + + + +---------+ + + + + | Result panel 91 | + + + + + + +---------+ + + | (unknown) | (no date) | (unknown) | [facility] | (no | (units | (unknown) | | | | | [facility] value) | unknown) | | [facility] | | | | + + + + +---------+ + + + + | Result panel 92 | + + + + + + +---------+ + + | (unknown) | (no date) | (unknown) | [facility] | (no | (units | (unknown) | | | | | [facility] | value) | unknown) | | | | [facility] | | | | + + + + +---------+ + + + + | Result panel 93 | + + + + + + +---------+ + + | (unknown) | (no date) | (unknown) | [facility] | (no | (units | (unknown) | | | | | [facility] | value) | unknown) | | | | [facility] | | | | + + + + +---------+ + + + + | Result panel 94 | + + + + + + +---------+ + + | (unknown) | (no date) | (unknown) | [facility] | (no | (units | (unknown) | | | | | [facility] value) | unknown) | | | | [facility] | | | | + + + + +---------+ + + + + | Result panel 95 | + + + + + + +---------+ + + | (unknown) | (no date) | (unknown) | [facility] | (no | (units | (unknown) | | | | | [facility] value) | unknown) | [facility] | | | | + + + + +---------+ + + + + | Result panel 96 | + + + + + + +---------+ + + | (unknown) | (no date) | (unknown) | [facility] | (no | (units | (unknown) | | | | | [facility] value) | unknown) | | | | [facility] | | | | + + + + +---------+ + + + + | Result panel 97 | + + + + + + +---------+ + + | (unknown) | (no date) | (unknown) | [facility] | (no | (units | (unknown) | | | | | [facility] value) | unknown) | | | [facility] | | | | + + + + +---------+ + + + + | Result panel 98 | + + + + + + +---------+ + + | (unknown) | (no date) | (unknown) | [facility] | (no | (units | (unknown) | | | | | [facility] | value) | unknown) | | | | [facility] | | | | + + + + +---------+ + + + + | Result panel 99 | + + + + + + +---------+ + + | (unknown) | (no date) | (unknown) | [facility] | (no | (units | (unknown) | | | | | [facility] value) | unknown) | | | [facility] | | | | + + + + +---------+ + + + + | Result panel 100 | + + + + + + +---------+ + + | (unknown) | (no date) | (unknown) | [facility] | (no | (units | (unknown) | | | | | [facility] value) | unknown) | | | [facility] | | | | + + + + +---------+ + + + + | Result panel 101 | + + + + + + +---------+ + + | (unknown) | (no date) | (unknown) | [facility] | (no | (units | (unknown) | | | | | [facility] value) | unknown) | | | [facility] | | | | + + + + +---------+ + + + + | Result panel 102 | + + + + + + +---------+ + + | (unknown) | (no date) | (unknown) | [facility] | (no | (units | (unknown) | | | | | [facility] value) | unknown) | | | | [facility] | | | | + + + + +---------+ + + + + | Result panel 103 | + + + + + + +---------+ + + | (unknown) | (no date) | (unknown) | [facility] | (no | (units | (unknown) | | | | | [facility] | value) | unknown) | | [facility] | | | | + + + + +---------+ + + + + | Result panel 104 | + + + + + + +---------+ + + | (unknown) | (no date) | (unknown) | [facility] | (no | (units | (unknown) | | | | | [facility] | value) | unknown) | | | [facility] | | | | + + + + +---------+ + + + + | Result panel 105 | + + + + + + +---------+ + + | (unknown) | (no date) | (unknown) | [facility] | (no | (units | (unknown) | | | | | [facility] | value) | unknown) | | | [facility] | | | | + + + + +---------+ + + + + | Result panel 106 | + + + + + + +---------+ + + | (unknown) | (no date) | (unknown) | [facility] | (no | (units | (unknown) | | | | | [facility] value) | unknown) | | | [facility] | | | | + + + + +---------+ + + + + | Result panel 107 | + + + + + + +---------+ + + | (unknown) | (no date) | (unknown) | [facility] | (no | (units | (unknown) | | | | | [facility] | value) | unknown) | | | | [facility] | | | | + + + + +---------+ + + + + | Result panel 108 | + + + + + + +---------+ + + | (unknown) | (no date) | (unknown) | [facility] | (no | (units | (unknown) | | | | | [facility] | value) | unknown) | | | | [facility] | | | | + + + + +---------+ + + + + | Result panel 109 | + + + + + + +---------+ + + | (unknown) | (no date) | (unknown) | [facility] | (no | (units | (unknown) | | | | | [facility] value) | unknown) | | | [facility] | | | | + + + + +---------+ + + + + | Result panel 110 | + + + + + + +---------+ + + | (unknown) | (no date) | (unknown) | [facility] | (no | (units | (unknown) | | | | | [facility] value) | unknown) | | | [facility] | | | | + + + + +---------+ + + + + | Result panel 111 | + + + + + + +---------+ + + | (unknown) | (no date) | (unknown) | [facility] | (no | (units | (unknown) | | | | | [facility] | value) | unknown) | | | [facility] | | | | + + + + +---------+ + + + + | Result panel 112 | + + + + + + +---------+ + + | (unknown) | (no date) | (unknown) | [facility] | (no | (units | (unknown) | | | | | [facility] value) | unknown) | | | [facility] | | | | + + + + +---------+ + + + + | Result panel 113 | + + + + + + +---------+ + + | (unknown) | (no date) | (unknown) | [facility] | (no | (units | (unknown) | | | | | [facility] | value) | unknown) | | | [facility] | | | | + + + + +---------+ + + + + | Result panel 114 | + + + + + + +---------+ + + | (unknown) | (no date) | (unknown) | [facility] | (no | (units | (unknown) | | | | | [facility] | value) | unknown) | | | [facility] | | | | + + + + +---------+ + + + + | Result panel 115 | + + + + + + +---------+ + + | (unknown) | (no date) | (unknown) | [facility] | (no | (units | (unknown) | | | | | [facility] value) | unknown) | | | [facility] | | | | + + + + +---------+ + + + + | Result panel 116 | + + + + + + +---------+ + + | (unknown) | (no date) | (unknown) | [facility] | (no | (units | (unknown) | | | | | [facility] value) | unknown) | | | [facility] | | | | + + + + +---------+ + + + + | Result panel 117 | + + + + + + +---------+ + + | (unknown) | (no date) | (unknown) | [facility] | (no | (units | (unknown) | | | | | [facility] | value) | unknown) | | | [facility] | | | | + + + + +---------+ + + + + | Result panel 118 | + + + + + + +---------+ + + | (unknown) | (no date) | (unknown) | [facility] | (no | (units | (unknown) | | | | | [facility] | value) | unknown) | | | [facility] | | | | + + + + +---------+ + + + + | Result panel 119 | + + + + + + +---------+ + + | (unknown) | (no date) | (unknown) | [facility] | (no | (units | (unknown) | | | | | [facility] | value) | unknown) | | | | [facility] | | | | + + + + +---------+ + + + + | Result panel 120 | + + + + + + +---------+ + + | (unknown) | (no date) | (unknown) | [facility] | (no | (units | (unknown) | | | | | [facility] | value) | unknown) | | | | [facility] | | | | + + + + +---------+ + + + + | Result panel 121 | + + + + + + +---------+ + + | (unknown) | (no date) | (unknown) | [facility] | (no | (units | (unknown) | | | | | [facility] | value) | unknown) | | | | [facility] | | | | + + + + +---------+ + + + + | Result panel 122 | + + + + + + +---------+ + + | (unknown) | (no date) | (unknown) | [facility] | (no | (units | (unknown) | | | | | [facility] | value) | unknown) | | | | [facility] | | | | + + + + +---------+ + + + + | Result panel 123 | + + + + + + +---------+ + + | (unknown) | (no date) | (unknown) | [facility] | (no | (units | (unknown) | | | | | [facility] | value) | unknown) | | | | [facility] | | | | + + + + +---------+ + + + + | Result panel 124 | + + + + + + +---------+ + + | (unknown) | (no date) | (unknown) | [facility] | (no | (units | (unknown) | | | | | [facility] | value) | unknown) | | | | [facility] | | | | + + + + +---------+ + + + + | Result panel 125 | + + + + + + +---------+ + + | (unknown) | (no date) | (unknown) | [facility] | (no | (units | (unknown) | | | | | [facility] | value) | unknown) | | | [facility] | | | | + + + + +---------+ + + + + | Result panel 126 | + + + + + + +---------+ + + | (unknown) | (no date) | (unknown) | [facility] | (no | (units | (unknown) | | | | | [facility] | value) | unknown) | | | | [facility] | | | | + + + + +---------+ + + + + | Result panel 127 | + + + + + + +---------+ + + | (unknown) | (no date) | (unknown) | [facility] | (no | (units | (unknown) | | | | | [facility] | value) | unknown) | | | | [facility] | | | | + + + + +---------+ + + + + | Result panel 128 | + + + + + + +---------+ + + | (unknown) | (no date) | (unknown) | [facility] | (no | (units | (unknown) | | | | | [facility] | value) | unknown) | | | | [facility] | | | | + + + + +---------+ + + + + | Result panel 129 | + + + + + + +---------+ + + | (unknown) | (no date) | (unknown) | [facility] | (no | (units | (unknown) | | | | | [facility] | value) | unknown) | | | | [facility] | | | | + + + + +---------+ + + + + | Result panel 130 | + + + + + + +---------+ + + | (unknown) | (no date) | (unknown) | [facility] | (no | (units | (unknown) | | | | | [facility] | value) | unknown) | | | | [facility] | | | | + + + + +---------+ + + + + | Result panel 131 | + + + + + + +---------+ + + | (unknown) | (no date) | (unknown) | [facility] | (no | (units | (unknown) | | | | | [facility] | value) | unknown) | | [facility] | [facility] | | | | + + + + +---------+ + + + + | Result panel 132 | + + + + + + +---------+ + + | (unknown) | (no date) | (unknown) | [facility] | (no | (units | (unknown) | | | | | [facility] | value) | unknown) | | | | [facility] | | | | + + + + +---------+ + + + + | Result panel 133 | + + + + + + +---------+ + + | (unknown) | (no date) | (unknown) | [facility] | (no | (units | (unknown) | | | | | [facility] | value) | unknown) | | [facility] | | | | + + + + +---------+ + + + + | Result panel 134 | + + + + + + +---------+ + + | (unknown) | (no date) | (unknown) | [facility] | (no | (units | (unknown) | | | | | [facility] | value) | unknown) | | | | [facility] | | | | + + + + +---------+ + + + + | Result panel 135 | + + + + + + +---------+ + + | (unknown) | (no date) | (unknown) | [facility] | (no | (units | (unknown) | | | | | [facility] | value) | unknown) | | | [facility] | | | | + + + + +---------+ + + + + | Result panel 136 | + + + + + + +---------+ + + | (unknown) | (no date) | (unknown) | [facility] | (no | (units | (unknown) | | | | | [facility] | value) | unknown) | | | | [facility] | | | | + + + + +---------+ + + + + | Result panel 137 | + + + + + + +---------+ + + | (unknown) | (no date) | (unknown) | [facility] | (no | (units | (unknown) | | | | | [facility] | value) | unknown) | | | | [facility] | | | | + + + + +---------+ + + + + | Result panel 138 | + + + + + + +---------+ + + | (unknown) | (no date) | (unknown) | [facility] | (no | (units | (unknown) | | | | | [facility] | value) | unknown) | [facility] | | [facility] | | | | + + + + +---------+ + + + + | Result panel 139 | + + + + + + +---------+ + + | (unknown) | (no date) | (unknown) | [facility] | (no | (units | (unknown) | | | | | [facility] | value) | unknown) | | [facility] | | | | + + + + +---------+ + + + + | Result panel 140 | + + + + + + +---------+ + + | (unknown) | (no date) | (unknown) | [facility] | (no | (units | (unknown) | | | | | [facility] | value) | unknown) | | [facility] | | | | + + + + +---------+ + + + + | Result panel 141 | + + + + + + +---------+ + + | (unknown) | (no date) | (unknown) | [facility] | (no | (units | (unknown) | | | | | [facility] | value) | unknown) | [facility] | [facility] | | | | + + + + +---------+ + + + + | Result panel 142 | + + + + + + +---------+ + + | (unknown) | (no date) | (unknown) | [facility] | (no | (units | (unknown) | | | | | [facility] | value) | unknown) | | [facility] | | | | + + + + +---------+ + + + + | Result panel 143 | + + + + + + +---------+ + + | (unknown) | (no date) | (unknown) | [facility] | (no | (units | (unknown) | | | | | [facility] | value) | unknown) | | | | [facility] | | | | + + + + +---------+ + + + + | Result panel 144 | + + + + + + +---------+ + + | (unknown) | (no date) | (unknown) | [facility] | (no | (units | (unknown) | | | | | [facility] | value) | unknown) | [facility] | [facility] | | | | + + + + +---------+ + + + + | Result panel 145 | + + + + + + +---------+ + + | (unknown) | (no date) | (unknown) | [facility] | (no | (units | (unknown) | | | | | [facility] | value) | unknown) | | | | | | [facility] | | | | + + + + +---------+ + + + + | Result panel 146 | + + + + + + +---------+ + + | (unknown) | (no date) | (unknown) | [facility] | (no | (units | (unknown) | | | | | [facility] | value) | unknown) | | | | | | [facility] | | | | + + + + +---------+ + + + + | Result panel 147 | + + + + + + +---------+ + + | (unknown) | (no date) | (unknown) | [facility] | (no | (units | (unknown) | | | | | [facility] | value) | unknown) | | | | | | [facility] | | | | + + + + +---------+ + + + + | Result panel 148 | + + + + + + +---------+ + + | (unknown) | (no date) | (unknown) | [facility] | (no | (units | (unknown) | | | | | [facility] | value) | unknown) | | | | | | [facility] | | | | + + + + +---------+ + + + + | Result panel 149 | + + + + + + +---------+ + + | (unknown) | (no date) | (unknown) | [facility] | (no | (units | (unknown) | | | | | [facility] | value) | unknown) | | | | | | [facility] | | | | + + + + +---------+ + + + + | Result panel 150 | + + + + + + +---------+ + + | (unknown) | (no date) | (unknown) | [facility] | (no | (units | (unknown) | | | | | [facility] | value) | unknown) | | | | | [facility] | | | | + + + + +---------+ + + + + | Result panel 151 | + + + + + + +---------+ + + | (unknown) | (no date) | (unknown) | [facility] | (no | (units | (unknown) | | | | | [facility] | value) | unknown) | | | | | | [facility] | | | | + + + + +---------+ + + + + | Result panel 152 | + + + + + + +---------+ + + | (unknown) | (no date) | (unknown) | [facility] | (no | (units | (unknown) | | | | | [facility] | value) | unknown) | | | | | | [facility] | | | | + + + + +---------+ + + + + | Result panel 153 | + + + + + + +---------+ + + | (unknown) | (no date) | (unknown) | [facility] | (no | (units | (unknown) | | | | [facility] value[facility] | unknown) | | | [facility] | | | | + + + + +---------+ + + + + | Result panel 154 | + + + + + + +---------+ + + | (unknown) | (no date) | (unknown) | [facility] | (no | (units | (unknown) | | | | [facility] value) | unknown) | | [facility] | | | | + + + + +---------+ + + + + | Result panel 155 | + + + + + + +---------+ + + | (unknown) | (no date) | (unknown) | [facility] | (no | (units | (unknown) | | | | [facility] value) | unknown) | | [facility] | | | | + + + + +---------+ + + + + | Result panel 156 | + + + + + + +---------+ + + | (unknown) | (no date) | (unknown) | [facility] | (no | (units | (unknown) | | | | [facility] value) | unknown) | | [facility] | | | | + + + + +---------+ + + + + | Result panel 157 | + + + + + + +---------+ + + | (unknown) | (no date) | (unknown) | [facility] | (no | (units | (unknown) | | | | [facility] value) | unknown) | | [facility] | | | | + + + + +---------+ + + + + | Result panel 158 | + + + + + + +---------+ + + | (unknown) | (no date) | (unknown) | [facility] | (no | (units | (unknown) | | | | [facility] value) | unknown) | [facility] | | | | + + + + +---------+ + + + + | Result panel 159 | + + + + + + +---------+ + + | (unknown) | (no date) | (unknown) | [facility] | (no | (units | (unknown) | | | | [facility] value) | unknown) | | [facility] | | | | + + + + +---------+ + + + + | Result panel 160 | + + + + + + +---------+ + + | (unknown) | (no date) | (unknown) | [facility] | (no | (units | (unknown) | | | | [facility] value) | unknown) | [facility] | | | | + + + + +---------+ + + + + | Result panel 161 | + + + + + + +---------+ + + | (unknown) | (no date) | (unknown) | [facility] | (no | (units | (unknown) | | | | [facility] value) | unknown) | [facility] | | | | + + + + +---------+ + + + + | Result panel 162 | + + + + + + +---------+ + + | (unknown) | (no date) | (unknown) | [facility] | (no | (units | (unknown) | | | | [facility] value) | unknown) | [facility] | | | | + + + + +---------+ + + + + | Result panel 163 | + + + + + + +---------+ + + | (unknown) | (no date) | (unknown) | [facility] | (no | (units | (unknown) | | | | [facility] value) | unknown) | [facility] | | | | + + + + +---------+ + + + + | Result panel 164 | + + + + + + +---------+ + + | (unknown) | (no date) | (unknown) | [facility] | (no | (units | (unknown) | | | | [facility] value) | unknown) | | [facility] | | | | + + + + +---------+ + + + + | Result panel 165 | + + + + + + +---------+ + + | (unknown) | (no date) | (unknown) | [facility] | (no | (units | (unknown) | | | | | [facility] value) | unknown) | | [facility] | | | | + + + + +---------+ + + + + | Result panel 166 | + + + + + + +---------+ + + | (unknown) | (no date) | (unknown) | [facility] | (no | (units | (unknown) | | | | | [facility] value) | unknown) | | | [facility] | | | | + + + + +---------+ + + + + | Result panel 167 | + + + + + + +---------+ + + | (unknown) | (no date) | (unknown) | [facility] | (no | (units | (unknown) | | | | | [facility] value) | unknown) | | | [facility] | | | | + + + + +---------+ + + + + | Result panel 168 | + + + + + + +---------+ + + | (unknown) | (no date) | (unknown) | [facility] | (no | (units | (unknown) | | | | | [facility] | value) | unknown) | [facility] | | | | + + + + +---------+ + + + + | Result panel 169 | + + + + + + +---------+ + + | (unknown) | (no date) | (unknown) | [facility] | (no | (units | (unknown) | | | | | [facility] | value) | unknown) | | | [facility] | | | | + + + + +---------+ + + + + | Result panel 170 | + + + + + + +---------+ + + | (unknown) | (no date) | (unknown) | [facility] | (no | (units | (unknown) | | | | | [facility] | value) | unknown) | | | [facility] | | | | + + + + +---------+ + + + + | Result panel 171 | + + + + + + +---------+ + + | (unknown) | (no date) | (unknown) | [facility] | (no | (units | (unknown) | | | | | [facility] | value) | unknown) | | [facility] | | | | + + + + +---------+ + + + + | Result panel 172 | + + + + + + +---------+ + + | (unknown) | (no date) | (unknown) | [facility] | (no | (units | (unknown) | | | | | [facility] value) | unknown) | [facility] | [facility] | | | | + + + + +---------+ + + + + | Result panel 173 | + + + + + + +---------+ + + | (unknown) | (no date) | (unknown) | [facility] | (no | (units | (unknown) | | | | | [facility] | value) | unknown) | | | [facility] | | | | + + + + +---------+ + + + + | Result panel 174 | + + + + + + +---------+ + + | (unknown) | (no date) | (unknown) | [facility] | (no | (units | (unknown) | | | | | [facility] | value) | unknown) | | | [facility] | | | | + + + + +---------+ + + + + | Result panel 175 | + + + + + + +---------+ + + | (unknown) | (no date) | (unknown) | [facility] | (no | (units | (unknown) | | | | | [facility] | value) | unknown) | | | | [facility] | | | | + + + + +---------+ + + + + | Result panel 176 | + + + + + + +---------+ + + | (unknown) | (no date) | (unknown) | [facility] | (no | (units | (unknown) | | | | | [facility] | value) | unknown) | | [facility] | | | | + + + + +---------+ + + + + | Result panel 177 | + + + + + + +---------+ + + | (unknown) | (no date) | (unknown) | [facility] | (no | (units | (unknown) | | | | | [facility] | value) | unknown) | | | [facility] | | | | + + + + +---------+ + + + + | Result panel 178 | + + + + + + +---------+ + + | (unknown) | (no date) | (unknown) | [facility] | (no | (units | (unknown) | | | | | [facility] | value) | unknown) | | | [facility] | | | | + + + + +---------+ + + + + | Result panel 179 | + + + + + + +---------+ + + | (unknown) | (no date) | (unknown) | [facility] | (no | (units | (unknown) | | | | | [facility] | value) | unknown) | | | | [facility] | | | | + + + + +---------+ + + + + | Result panel 180 | + + + + + + +---------+ + + | (unknown) | (no date) | (unknown) | [facility] | (no | (units | (unknown) | | | | | [facility] | value) | unknown) | | [facility] | | | | + + + + +---------+ + + + + | Result panel 181 | + + + + + + +---------+ + + | (unknown) | (no date) | (unknown) | [facility] | (no | (units | (unknown) | | | | | [facility] | value) | unknown) | | | [facility] | | | | + + + + +---------+ + + + + | Result panel 182 | + + + + + + +---------+ + + | (unknown) | (no date) | (unknown) | [facility] | (no | (units | (unknown) | | | | | [facility] | value) | unknown) | | [facility] | | | | + + + + +---------+ + + + + | Result panel 183 | + + + + + + +---------+ + + | (unknown) | (no date) | (unknown) | [facility] | (no | (units | (unknown) | | | | | [facility] | value) | unknown) | | | | [facility] | | | | + + + + +---------+ + + + + | Result panel 184 | + + + + + + +---------+ + + | (unknown) | (no date) | (unknown) | [facility] | (no | (units | (unknown) | | | | | [facility] | value) | unknown) | | | | [facility] | | | | + + + + +---------+ + + + + | Result panel 185 | + + + + + + +---------+ + + | (unknown) | (no date) | (unknown) | [facility] | (no | (units | (unknown) | | | | | [facility] | value) | unknown) | | [facility] | [facility] | | | | + + + + +---------+ + + + + | Result panel 186 | + + + + + + +---------+ + + | (unknown) | (no date) | (unknown) | [facility] | (no | (units | (unknown) | | | | | [facility] | value) | unknown) | | | | [facility] | | | | + + + + +---------+ + + + + | Result panel 187 | + + + + + + +---------+ + + | (unknown) | (no date) | (unknown) | [facility] | (no | (units | (unknown) | | | | | [facility] | value) | unknown) | | | | [facility] | | | | + + + + +---------+ + + + + | Result panel 188 | + + + + + + +---------+ + + | (unknown) | (no date) | (unknown) | [facility] | (no | (units | (unknown) | | | | | [facility] | value) | unknown) | | | | [facility] | | | | + + + + +---------+ + + + + | Result panel 189 | + + + + + + +---------+ + + | (unknown) | (no date) | (unknown) | [facility] | (no | (units | (unknown) | | | | | [facility] | value) | unknown) | | [facility] | [facility] | | | | + + + + +---------+ + + + + | Result panel 190 | + + + + + + +---------+ + + | (unknown) | (no date) | (unknown) | [facility] | (no | (units | (unknown) | | | | | [facility] | value) | unknown) | | [facility] | | | | + + + + +---------+ + + + + | Result panel 191 | + + + + + + +---------+ + + | (unknown) | (no date) | (unknown) | [facility] | (no | (units | (unknown) | | | | | [facility] | value) | unknown) | [facility] | [facility] | | | | + + + + +---------+ + + + + | Result panel 192 | + + + + + + +---------+ + + | (unknown) | (no date) | (unknown) | [facility] | (no | (units | (unknown) | | | | | [facility] | value) | unknown) | | | | [facility] | | | | + + + + +---------+ + + + + | Result panel 193 | + + + + + + +---------+ + + | (unknown) | (no date) | (unknown) | [facility] | (no | (units | (unknown) | | | | | [facility] | value) | unknown) | | [facility] | [facility] | | | | + + + + +---------+ + + + + | Result panel 194 | + + + + + + +---------+ + + | (unknown) | (no date) | (unknown) | [facility] | (no | (units | (unknown) | | | | | [facility] | value) | unknown) | | | | [facility] | | | | + + + + +---------+ + + + + | Result panel 195 | + + + + + + +---------+ + + | (unknown) | (no date) | (unknown) | [facility] | (no | (units | (unknown) | | | | | [facility] | value) | unknown) | | | | [facility] | | | | + + + + +---------+ + + + + | Result panel 196 | + + + + + + +---------+ + + | (unknown) | (no date) | (unknown) | [facility] | (no | (units | (unknown) | | | | | [facility] | value) | unknown) | | | | | [facility] | | | | + + + + +---------+ + + + + | Result panel 197 | + + + + + + +---------+ + + | (unknown) | (no date) | (unknown) | [facility] | (no | (units | (unknown) | | | | | [facility] | value) | unknown) | | | | | [facility] | | | | + + + + +---------+ + + + + | Result panel 198 | + + + + + + +---------+ + + | (unknown) | (no date) | (unknown) | [facility] | (no | (units | (unknown) | | | | | [facility] | value) | unknown) | | | | | [facility] | | | | + + + + +---------+ + + + + | Result panel 199 | + + + + + + +---------+ + + | (unknown) | (no date) | (unknown) | [facility] | (no | (units | (unknown) | | | | | [facility] | value) | unknown) | | | | [facility] | | | | + + + + +---------+ + + + + | Result panel 200 | + + + + + + +---------+ + + | (unknown) | (no date) | (unknown) | [facility] | (no | (units | (unknown) | | | | | [facility] | value) | unknown) | | | | [facility] | | | | + + + + +---------+ + + + + | Result panel 201 | + + + + + + +---------+ + + | (unknown) | (no date) | (unknown) | [facility] | (no | (units | (unknown) | | | | | [facility] | value) | unknown) | | | | [facility] | | | | + + + + +---------+ + + + + | Result panel 202 | + + + + + + +---------+ + + | (unknown) | (no date) | (unknown) | [facility] | (no | (units | (unknown) | | | | | [facility] | value) | unknown) | | | | [facility] | | | | + + + + +---------+ + + + + | Result panel 203 | + + + + + + +---------+ + + | (unknown) | (no date) | (unknown) | [facility] | (no | (units | (unknown) | | | | | [facility] | value) | unknown) | | | | | [facility] | | | | + + + + +---------+ + + + + | Result panel 204 | + + + + + + +---------+ + + | (unknown) | (no date) | (unknown) | [facility] | (no | (units | (unknown) | | | | | [facility] | value) | unknown) | | | | [facility] | | | | + + + + +---------+ + + + + | Result panel 205 | + + + + + + +---------+ + + | (unknown) | (no date) | (unknown) | [facility] | (no | (units | (unknown) | | | | | [facility] | value) | unknown) | | | | [facility] | | | | + + + + +---------+ + + + + | Result panel 206 | + + + + + + +---------+ + + | (unknown) | (no date) | (unknown) | [facility] | (no | (units | (unknown) | | | | | [facility] | value) | unknown) | | | | [facility] | | | | + + + + +---------+ + + + + | Result panel 207 | + + + + + + +---------+ + + | (unknown) | (no date) | (unknown) | [facility] | (no | (units | (unknown) | | | | | [facility] | value) | unknown) | | | | [facility] | | | | + + + + +---------+ + + + + | Result panel 208 | + + + + + + +---------+ + + | (unknown) | (no date) | (unknown) | [facility] | (no | (units | (unknown) | | | | | [facility] | value) | unknown) | | | | [facility] | | | | + + + + +---------+ + + + + | Result panel 209 | + + + + + + +---------+ + + | (unknown) | (no date) | (unknown) | [facility] | (no | (units | (unknown) | | | | | [facility] | value) | unknown) | | | | [facility] | | | | + + + + +---------+ + + + + | Result panel 210 | + + + + + + +---------+ + + | (unknown) | (no date) | (unknown) | [facility] | (no | (units | (unknown) | | | | | [facility] | value) | unknown) | | [facility] | [facility] | | | | + + + + +---------+ + + + + | Result panel 211 | + + + + + + +---------+ + + | (unknown) | (no date) | (unknown) | [facility] | (no | (units | (unknown) | | | | | [facility] | value) | unknown) | | | | [facility] | | | | + + + + +---------+ + + + + | Result panel 212 | + + + + + + +---------+ + + | (unknown) | (no date) | (unknown) | [facility] | (no | (units | (unknown) | | | | | [facility] | value) | unknown) | | [facility] | [facility] | | | | + + + + +---------+ + + + + | Result panel 213 | + + + + + + +---------+ + + | (unknown) | (no date) | (unknown) | [facility] | (no | (units | (unknown) | | | | | [facility] | value) | unknown) | | | | [facility] | | | | + + + + +---------+ + + + + | Result panel 214 | + + + + + + +---------+ + + | (unknown) | (no date) | (unknown) | [facility] | (no | (units | (unknown) | | | | | [facility] | value) | unknown) | | | | [facility] | | | | + + + + +---------+ + + + + | Result panel 215 | + + + + + + +---------+ + + | (unknown) | (no date) | (unknown) | [facility] | (no | (units | (unknown) | | | | | [facility] | value) | unknown) | | | | [facility] | | | | + + + + +---------+ + + + + | Result panel 216 | + + + + + + +---------+ + + | (unknown) | (no date) | (unknown) | [facility] | (no | (units | (unknown) | | | | | [facility] | value) | unknown) | | | [facility] | | | | + + + + +---------+ + + + + | Result panel 217 | + + + + + + +---------+ + + | (unknown) | (no date) | (unknown) | [facility] | (no | (units | (unknown) | | | | | [facility] | value) | unknown) | | | | [facility] | | | | + + + + +---------+ + + + + | Result panel 218 | + + + + + + +---------+ + + | (unknown) | (no date) | (unknown) | [facility] | (no | (units | (unknown) | | | | | [facility] | value) | unknown) | | | | [facility] | | | | + + + + +---------+ + + + + | Result panel 219 | + + + + + + +---------+ + + | (unknown) | (no date) | (unknown) | [facility] | (no | (units | (unknown) | | | | | [facility] | value) | unknown) | | | | [facility] | | | | + + + + +---------+ + + + + | Result panel 220 | + + + + + + +---------+ + + | (unknown) | (no date) | (unknown) | [facility] | (no | (units | (unknown) | | | | | [facility] | value) | unknown) | | | | [facility] | | | | + + + + +---------+ + + + + | Result panel 221 | + + + + + + +---------+ + + | (unknown) | (no date) | (unknown) | [facility] | (no | (units | (unknown) | | | | | [facility] | value) | unknown) | | | [facility] | | | | + + + + +---------+ + + + + | Result panel 222 | + + + + + + +---------+ + + | (unknown) | (no date) | (unknown) | [facility] | (no | (units | (unknown) | | | | | [facility] | value) | unknown) | | | | [facility] | | | | + + + + +---------+ + + + + | Result panel 223 | + + + + + + +---------+ + + | (unknown) | (no date) | (unknown) | [facility] | (no | (units | (unknown) | | | | | [facility] | value) | unknown) | [facility] | [facility] | | | | + + + + +---------+ + + + + | Result panel 224 | + + + + + + +---------+ + + | (unknown) | (no date) | (unknown) | [facility] | (no | (units | (unknown) | | | | | [facility] | value) | unknown) | | | | [facility] | | | | + + + + +---------+ + + + + | Result panel 225 | + + + + + + +---------+ + + | (unknown) | (no date) | (unknown) | [facility] | (no | (units | (unknown) | | | | | [facility] | value) | unknown) | | | | [facility] | | | | + + + + +---------+ + + + + | Result panel 226 | + + + + + + +---------+ + + | (unknown) | (no date) | (unknown) | [facility] | (no | (units | (unknown) | | | | | [facility] | value) | unknown) | | | | [facility] | | | | + + + + +---------+ + + + + | Result panel 227 | + + + + + + +---------+ + + | (unknown) | (no date) | (unknown) | [facility] | (no | (units | (unknown) | | | | | [facility] | value) | unknown) | | [facility] | [facility] | | | | + + + + +---------+ + + + + | Result panel 228 | + + + + + + +---------+ + + | (unknown) | (no date) | (unknown) | [facility] | (no | (units | (unknown) | | | | | [facility] | value) | unknown) | | | | [facility] | | | | + + + + +---------+ + + + + | Result panel 229 | + + + + + + +---------+ + + | (unknown) | (no date) | (unknown) | [facility] | (no | (units | (unknown) | | | | | [facility] | value) | unknown) | | | | [facility] | | | | + + + + +---------+ + + + + | Result panel 230 | + + + + + + +---------+ + + | (unknown) | (no date) | (unknown) | [facility] | (no | (units | (unknown) | | | | | [facility] | value) | unknown) | | | | [facility] | | | | + + + + +---------+ + + + + | Result panel 231 | + + + + + + +---------+ + + | (unknown) | (no date) | (unknown) | [facility] | (no | (units | (unknown) | | | | | [facility] | value) | unknown) | | | | [facility] | | | | + + + + +---------+ + + + + | Result panel 232 | + + + + + + +---------+ + + | (unknown) | (no date) | (unknown) | [facility] | (no | (units | (unknown) | | | | | [facility] | value) | unknown) | | | | [facility] | | | | + + + + +---------+ + + + + | Result panel 233 | + + + + + + +---------+ + + | (unknown) | (no date) | (unknown) | [facility] | (no | (units | (unknown) | | | | | [facility] | value) | unknown) | | | | [facility] | | | | + + + + +---------+ + + + + | Result panel 234 | + + + + + + +---------+ + + | (unknown) | (no date) | (unknown) | [facility] | (no | (units | (unknown) | | | | | [facility] | value) | unknown) | | | | [facility] | | | | + + + + +---------+ + + + + | Result panel 235 | + + + + + + +---------+ + + | (unknown) | (no date) | (unknown) | [facility] | (no | (units | (unknown) | | | | | [facility] | value) | unknown) | | | | [facility] | | | | + + + + +---------+ + + + + | Result panel 236 | + + + + + + +---------+ + + | (unknown) | (no date) | (unknown) | [facility] | (no | (units | (unknown) | | | | | [facility] | value) | unknown) | | | | [facility] | | | | + + + + +---------+ + + + + | Result panel 237 | + + + + + + +---------+ + + | (unknown) | (no date) | (unknown) | [facility] | (no | (units | (unknown) | | | | | [facility] | value) | unknown) | | | | [facility] | | | | + + + + +---------+ + + + + | Result panel 238 | + + + + + + +---------+ + + | (unknown) | (no date) | (unknown) | [facility] | (no | (units | (unknown) | | | | | [facility] | value) | unknown) | | | | [facility] | | | | + + + + +---------+ + + + + | Result panel 239 | + + + + + + +---------+ + + | (unknown) | (no date) | (unknown) | [facility] | (no | (units | (unknown) | | | | | [facility] | value) | unknown) | | | | [facility] | | | | + + + + +---------+ + + + + | Result panel 240 | + + + + + + +---------+ + + | (unknown) | (no date) | (unknown) | [facility] | (no | (units | (unknown) | | | | | [facility] | value) | unknown) | | | | [facility] | | | | + + + + +---------+ + + + + | Result panel 241 | + + + + + + +---------+ + + | (unknown) | (no date) | (unknown) | [facility] | (no | (units | (unknown) | | | | | [facility] | value) | unknown) | | | | [facility] | | | | + + + + +---------+ + + + + | Result panel 242 | + + + + + + +---------+ + + | (unknown) | (no date) | (unknown) | [facility] | (no | (units | (unknown) | | | | | [facility] | value) | unknown) | | | | [facility] | | | | + + + + +---------+ + + + + | Result panel 243 | + + + + + + +---------+ + + | (unknown) | (no date) | (unknown) | [facility] | (no | (units | (unknown) | | | | | [facility] | value) | unknown) | | | | [facility] | | | | + + + + +---------+ + + + + | Result panel 244 | + + + + + + +---------+ + + | (unknown) | (no date) | (unknown) | [facility] | (no | (units | (unknown) | | | | | [facility] | value) | unknown) | | | | [facility] | | | | + + + + +---------+ + + + + | Result panel 245 | + + + + + + +---------+ + + | (unknown) | (no date) | (unknown) | [facility] | (no | (units | (unknown) | | | | | [facility] | value) | unknown) | | | | [facility] | | | | + + + + +---------+ + + + + | Result panel 246 | + + + + + + +---------+ + + | (unknown) | (no date) | (unknown) | [facility] | (no | (units | (unknown) | | | | | [facility] | value) | unknown) | | | | [facility] | | | | + + + + +---------+ + + + + | Result panel 247 | + + + + + + +---------+ + + | (unknown) | (no date) | (unknown) | [facility] | (no | (units | (unknown) | | | | | [facility] | value) | unknown) | | | | [facility] | | | | + + + + +---------+ + + + + | Result panel 248 | + + + + + + +---------+ + + | (unknown) | (no date) | (unknown) | [facility] | (no | (units | (unknown) | | | | | [facility] | value) | unknown) | | | | [facility] | | | | + + + + +---------+ + + + + | Result panel 249 | + + + + + + +---------+ + + | (unknown) | (no date) | (unknown) | [facility] | (no | (units | (unknown) | | | | | [facility] | value) | unknown) | | | | [facility] | | | | + + + + +---------+ + + + + | Result panel 250 | + + + + + + +---------+ + + | (unknown) | (no date) | (unknown) | [facility] | (no | (units | (unknown) | | | | | [facility] | value) | unknown) | | | | [facility] | | | | + + + + +---------+ + + + + | Result panel 251 | + + + + + + +---------+ + + | (unknown) | (no date) | (unknown) | [facility] | (no | (units | (unknown) | | | | | [facility] | value) | unknown) | | | | [facility] | | | | + + + + +---------+ + + + + | Result panel 252 | + + + + + + +---------+ + + | (unknown) | (no date) | (unknown) | [facility] | (no | (units | (unknown) | | | | | [facility] | value) | unknown) | [facility] | | [facility] | | | | + + + + +---------+ + + + + | Result panel 253 | + + + + + + +---------+ + + | (unknown) | (no date) | (unknown) | [facility] | (no | (units | (unknown) | | | | | [facility] | value) | unknown) | | | | [facility] | | | | + + + + +---------+ + + + + | Result panel 254 | + + + + + + +---------+ + + | (unknown) | (no date) | (unknown) | [facility] | (no | (units | (unknown) | | | | | [facility] | value) | unknown) | | | | [facility] | | | | + + + + +---------+ + + + + | Result panel 255 | + + + + + + +---------+ + + | (unknown) | (no date) | (unknown) | [facility] | (no | (units | (unknown) | | | | | [facility] | value) | unknown) | [facility] | | | | + + + + +---------+ + + + + | Result panel 256 | + + + + + + +---------+ + + | (unknown) | (no date) | (unknown) | [facility] | (no | (units | (unknown) | | | | | [facility] | value) | unknown) | | | | | | [facility] | | | | + + + + +---------+ + + + + | Result panel 257 | + + + + + + +---------+ + + | (unknown) | (no date) | (unknown) | [facility] | (no | (units | (unknown) | | | | | [facility] | value) | unknown) | | | | | | [facility] | | | | + + + + +---------+ + + + + | Result panel 258 | + + + + + + +---------+ + + | (unknown) | (no date) | (unknown) | [facility] | (no | (units | (unknown) | | | | | [facility] | value) | unknown) | | | | | | [facility] | | | | + + + + +---------+ + + + + | Result panel 259 | + + + + + + +---------+ + + | (unknown) | (no date) | (unknown) | [facility] | (no | (units | (unknown) | | | | | [facility] | value) | unknown) | | | | | | [facility] | | | | + + + + +---------+ + + + + | Result panel 260 | + + + + + + +---------+ + + | (unknown) | (no date) | (unknown) | [facility] | (no | (units | (unknown) | | | | | [facility] | value) | unknown) | | | | | | [facility] | | | | + + + + +---------+ + + + + | Result panel 261 | + + + + + + +---------+ + + | (unknown) | (no date) | (unknown) | [facility] | (no | (units | (unknown) | | | | | [facility] | value) | unknown) | | | | | | [facility] | | | | + + + + +---------+ + + + + | Result panel 262 | + + + + + + +---------+ + + | (unknown) | (no date) | (unknown) | [facility] | (no | (units | (unknown) | | | | | [facility] | value) | unknown) | | | | | | [facility] | | | | + + + + +---------+ + + + + | Result panel 263 | + + + + + + +---------+ + + | (unknown) | (no date) | (unknown) | [facility] | (no | (units | (unknown) | | | | | [facility] | value) | unknown) | | | | | | [facility] | | | | + + + + +---------+ + + + + | Result panel 264 | + + + + + + +---------+ + + | (unknown) | (no date) | (unknown) | [facility] | (no | (units | (unknown) | | | | [facility] value) | unknown) | | | [facility] | | | | + + + + +---------+ + + + + | Result panel 265 | + + + + + + +---------+ + + | (unknown) | (no date) | (unknown) | [facility] | (no | (units | (unknown) | | | | | [facility] | value) | unknown) | | | | [facility] | | | | + + + + +---------+ + + + + | Result panel 266 | + + + + + + +---------+ + + | (unknown) | (no date) | (unknown) | [facility] | (no | (units | (unknown) | | | | | [facility] | value) | unknown) | | | [facility] | | | | + + + + +---------+ + + + + | Result panel 267 | + + + + + + +---------+ + + | (unknown) | (no date) | (unknown) | [facility] | (no | (units | (unknown) | | | | | [facility] | value) | unknown) | | | | [facility] | | | | + + + + +---------+ + + + + | Result panel 268 | + + + + + + +---------+ + + | (unknown) | (no date) | (unknown) | [facility] | (no | (units | (unknown) | | | | | [facility] | value) | unknown) | | | [facility] | | | | + + + + +---------+ + + + + | Result panel 269 | + + + + + + +---------+ + + | (unknown) | (no date) | (unknown) | [facility] | (no | (units | (unknown) | | | | | [facility] | value) | unknown) | | | [facility] | | | | + + + + +---------+ + + + + | Result panel 270 | + + + + + + +---------+ + + | (unknown) | (no date) | (unknown) | [facility] | (no | (units | (unknown) | | | | | [facility] | value) | unknown) | | | [facility] | | | | + + + + +---------+ + + + + | Result panel 271 | + + + + + + +---------+ + + | (unknown) | (no date) | (unknown) | [facility] | (no | (units | (unknown) | | | | | [facility] | value) | unknown) | | | [facility] | | | | + + + + +---------+ + + + + | Result panel 272 | + + + + + + +---------+ + + | (unknown) | (no date) | (unknown) | [facility] | (no | (units | (unknown) | | | | | [facility] | value) | unknown) | | | [facility] | | | | + + + + +---------+ + + + + | Result panel 273 | + + + + + + +---------+ + + | (unknown) | (no date) | (unknown) | [facility] | (no | (units | (unknown) | | | | | [facility] | value) | unknown) | | | [facility] | | | | + + + + +---------+ + + + + | Result panel 274 | + + + + + + +---------+ + + | (unknown) | (no date) | (unknown) | [facility] | (no | (units | (unknown) | | | | | [facility] | value) | unknown) | | | [facility] | | | | + + + + +---------+ + + + + | Result panel 275 | + + + + + + +---------+ + + | (unknown) | (no date) | (unknown) | [facility] | (no | (units | (unknown) | | | | | [facility] | value) | unknown) | | | | [facility] | | | | + + + + +---------+ + + + + | Result panel 276 | + + + + + + +---------+ + + | (unknown) | (no date) | (unknown) | [facility] | (no | (units | (unknown) | | | | | [facility] | value) | unknown) | | | | [facility] | | | | + + + + +---------+ + + + + | Result panel 277 | + + + + + + +---------+ + + | (unknown) | (no date) | (unknown) | [facility] | (no | (units | (unknown) | | | | | [facility] | value) | unknown) | | | | [facility] | | | | + + + + +---------+ + + + + | Result panel 278 | + + + + + + +---------+ + + | (unknown) | (no date) | (unknown) | [facility] | (no | (units | (unknown) | | | | | [facility] | value) | unknown) | | | | [facility] | | | | + + + + +---------+ + + + + | Result panel 279 | + + + + + + +---------+ + + | (unknown) | (no date) | (unknown) | [facility] | (no | (units | (unknown) | | | | | [facility] | value) | unknown) | | | | [facility] | | | | + + + + +---------+ + + + + | Result panel 280 | + + + + + + +---------+ + + | (unknown) | (no date) | (unknown) | [facility] | (no | (units | (unknown) | | | | | [facility] | value) | unknown) | | [facility] | [facility] | | | | + + + + +---------+ + + + + | Result panel 281 | + + + + + + +---------+ + + | (unknown) | (no date) | (unknown) | [facility] | (no | (units | (unknown) | | | | | [facility] | value) | unknown) | | | [facility] | | | | + + + + +---------+ + + + + | Result panel 282 | + + + + + + +---------+ + + | (unknown) | (no date) | (unknown) | [facility] | (no | (units | (unknown) | | | | | [facility] | value) | unknown) | [facility] | | | | + + + + +---------+ + + + + | Result panel 283 | + + + + + + +---------+ + + | (unknown) | (no date) | (unknown) | [facility] | (no | (units | (unknown) | | | | | [facility] | value) | unknown) | | [facility] | | | | + + + + +---------+ + + + + | Result panel 284 | + + + + + + +---------+ + + | (unknown) | (no date) | (unknown) | [facility] | (no | (units | (unknown) | | | | | [facility] | value) | unknown) | | | | [facility] | | | | + + + + +---------+ + + + + | Result panel 285 | + + + + + + +---------+ + + | (unknown) | (no date) | (unknown) | [facility] | (no | (units | (unknown) | | | | | [facility] | value) | unknown) | [facility] | [facility] | | | | + + + + +---------+ + + + + | Result panel 286 | + + + + + + +---------+ + + | (unknown) | (no date) | (unknown) | [facility] | (no | (units | (unknown) | | | | | [facility] | value) | unknown) | [facility] | | [facility] | | | | + + + + +---------+ + + + + | Result panel 287 | + + + + + + +---------+ + + | (unknown) | (no date) | (unknown) | [facility] | (no | (units | (unknown) | | | | | [facility] | value) | unknown) | | | | [facility] | | | | + + + + +---------+ + + + + | Result panel 288 | + + + + + + +---------+ + + | (unknown) | (no date) | (unknown) | [facility] | (no | (units | (unknown) | | | | | [facility] | value) | unknown) | | | | [facility] | | | | + + + + +---------+ + + + + | Result panel 289 | + + + + + + +---------+ + + | (unknown) | (no date) | (unknown) | [facility] | (no | (units | (unknown) | | | | | [facility] | value) | unknown) | [facility] | | [facility] | | | | + + + + +---------+ + + + + | Result panel 290 | + + + + + + +---------+ + + | (unknown) | (no date) | (unknown) | [facility] | (no | (units | (unknown) | | | | | [facility] | value) | unknown) | [facility] | | [facility] | | | | + + + + +---------+ + + + + | Result panel 291 | + + + + + + +---------+ + + | (unknown) | (no date) | (unknown) | [facility] | (no | (units | (unknown) | | | | | [facility] | value) | unknown) | | | | [facility] | | | | + + + + +---------+ + + + + | Result panel 292 | + + + + + + +---------+ + + | (unknown) | (no date) | (unknown) | [facility] | (no | (units | (unknown) | | | | | [facility] | value) | unknown) | | | | [facility] | | | | + + + + +---------+ + + + + | Result panel 293 | + + + + + + +---------+ + + | (unknown) | (no date) | (unknown) | [facility] | (no | (units | (unknown) | | | | | [facility] | value) | unknown) | | | | [facility] | | | | + + + + +---------+ + + + + | Result panel 294 | + + + + + + +---------+ + + | (unknown) | (no date) | (unknown) | [facility] | (no | (units | (unknown) | | | | | [facility] | value) | unknown) | | | | | [facility] | | | | + + + + +---------+ + + + + | Result panel 295 | + + + + + + +---------+ + + | (unknown) | (no date) | (unknown) | [facility] | (no | (units | (unknown) | | | | | [facility] | value) | unknown) | | | | | [facility] | | | | + + + + +---------+ + + + + | Result panel 296 | + + + + + + +---------+ + + | (unknown) | (no date) | (unknown) | [facility] | (no | (units | (unknown) | | | | | [facility] | value) | unknown) | | | | [facility] | | | | + + + + +---------+ + + + + | Result panel 297 | + + + + + + +---------+ + + | (unknown) | (no date) | (unknown) | [facility] | (no | (units | (unknown) | | | | | [facility] | value) | unknown) | | | | | [facility] | | | | + + + + +---------+ + + + + | Result panel 298 | + + + + + + +---------+ + + | (unknown) | (no date) | (unknown) | [facility] | (no | (units | (unknown) | | | | | [facility] | value) | unknown) | | | | [facility] | | | | + + + + +---------+ + + + + | Result panel 299 | + + + + + + +---------+ + + | (unknown) | (no date) | (unknown) | [facility] | (no | (units | (unknown) | | | | | [facility] | value) | unknown) | | | | | [facility] | | | | + + + + +---------+ + + + + | Result panel 300 | + + + + + + +---------+ + + | (unknown) | (no date) | (unknown) | [facility] | (no | (units | (unknown) | | | | | [facility] | value) | unknown) | | [facility] | [facility] | | | | + + + + +---------+ + + + + | Result panel 301 | + + + + + + +---------+ + + | (unknown) | (no date) | (unknown) | [facility] | (no | (units | (unknown) | | | | | [facility] | value) | unknown) | | [facility] | [facility] | | | | + + + + +---------+ + + + + | Result panel 302 | + + + + + + +---------+ + + | (unknown) | (no date) | (unknown) | [facility] | (no | (units | (unknown) | | | | | [facility] | value) | unknown) | | [facility] | [facility] | | | | + + + + +---------+ + + + + | Result panel 303 | + + + + + + +---------+ + + | (unknown) | (no date) | (unknown) | [facility] | (no | (units | (unknown) | | | | | [facility] | value) | unknown) | [facility] | | [facility] | | | | + + + + +---------+ + + + + | Result panel 304 | + + + + + + +---------+ + + | (unknown) | (no date) | (unknown) | [facility] | (no | (units | (unknown) | | | | | [facility] | value) | unknown) | | [facility] | [facility] | | | | + + + + +---------+ + + + + | Result panel 305 | + + + + + + +---------+ + + | (unknown) | (no date) | (unknown) | [facility] | (no | (units | (unknown) | | | | | [facility] | value) | unknown) | | | | [facility] | | | | + + + + +---------+ + + + + | Result panel 306 | + + + + + + +---------+ + + | (unknown) | (no date) | (unknown) | [facility] | (no | (units | (unknown) | | | | | [facility] | value) | unknown) | | [facility] | [facility] | | | | + + + + +---------+ + + + + | Result panel 307 | + + + + + + +---------+ + + | (unknown) | (no date) | (unknown) | [facility] | (no | (units | (unknown) | | | | | [facility] | value) | unknown) | | | | | [facility] | | | | + + + + +---------+ + + + + | Result panel 308 | + + + + + + +---------+ + + | (unknown) | (no date) | (unknown) | [facility] | (no | (units | (unknown) | | | | | [facility] | value) | unknown) | | | | | [facility] | | | | + + + + +---------+ + + + + | Result panel 309 | + + + + + + +---------+ + + | (unknown) | (no date) | (unknown) | [facility] | (no | (units | (unknown) | | | | | [facility] | value) | unknown) | | | | [facility] | | | | + + + + +---------+ + + + + | Result panel 310 | + + + + + + +---------+ + + | (unknown) | (no date) | (unknown) | [facility] | (no | (units | (unknown) | | | | | [facility] | value) | unknown) | [facility] | [facility] | | | | + + + + +---------+ + + + + | Result panel 311 | + + + + + + +---------+ + + | (unknown) | (no date) | (unknown) | [facility] | (no | (units | (unknown) | | | | | [facility] | value) | unknown) | [facility] | | [facility] | | | | + + + + +---------+ + + + + | Result panel 312 | + + + + + + +---------+ + + | (unknown) | (no date) | (unknown) | [facility] | (no | (units | (unknown) | | | | | [facility] | value) | unknown) | | | | [facility] | | | | + + + + +---------+ + + + + | Result panel 313 | + + + + + + +---------+ + + | (unknown) | (no date) | (unknown) | [facility] | (no | (units | (unknown) | | | | | [facility] | value) | unknown) | | [facility] | [facility] | | | | + + + + +---------+ + + + + | Result panel 314 | + + + + + + +---------+ + + | (unknown) | (no date) | (unknown) | [facility] | (no | (units | (unknown) | | | | | [facility] | value) | unknown) | | | | | [facility] | | | | + + + + +---------+ + + + + | Result panel 315 | + + + + + + +---------+ + + | (unknown) | (no date) | (unknown) | [facility] | (no | (units | (unknown) | | | | | [facility] | value) | unknown) | | | | [facility] | | | | + + + + +---------+ + + + + | Result panel 316 | + + + + + + +---------+ + + | (unknown) | (no date) | (unknown) | [facility] | (no | (units | (unknown) | | | | | [facility] | value) | unknown) | | | | | [facility] | | | | + + + + +---------+ + + + + | Result panel 317 | + + + + + + +---------+ + + | (unknown) | (no date) | (unknown) | [facility] | (no | (units | (unknown) | | | | | [facility] | value) | unknown) | | | | [facility] | | | | + + + + +---------+ + + + + | Result panel 318 | + + + + + + +---------+ + + | (unknown) | (no date) | (unknown) | [facility] | (no | (units | (unknown) | | | | | [facility] | value) | unknown) | | | | [facility] | | | | + + + + +---------+ + + + + | Result panel 319 | + + + + + + +---------+ + + | (unknown) | (no date) | (unknown) | [facility] | (no | (units | (unknown) | | | | | [facility] | value) | unknown) | | | | | [facility] | | | | + + + + +---------+ + + + + | Result panel 320 | + + + + + + +---------+ + + | (unknown) | (no date) | (unknown) | [facility] | (no | (units | (unknown) | | | | | [facility] | value) | unknown) | | | | | [facility] | | | | + + + + +---------+ + + + + | Result panel 321 | + + + + + + +---------+ + + | (unknown) | (no date) | (unknown) | [facility] | (no | (units | (unknown) | | | | | [facility] | value) | unknown) | | | | [facility] | | | | + + + + +---------+ + + + + | Result panel 322 | + + + + + + +---------+ + + | (unknown) | (no date) | (unknown) | [facility] | (no | (units | (unknown) | | | | | [facility] | value) | unknown) | | | | | [facility] | | | | + + + + +---------+ + + + + | Result panel 323 | + + + + + + +---------+ + + | (unknown) | (no date) | (unknown) | [facility] | (no | (units | (unknown) | | | | | [facility] | value) | unknown) | | | | [facility] | | | | + + + + +---------+ + + + + | Result panel 324 | + + + + + + +---------+ + + | (unknown) | (no date) | (unknown) | [facility] | (no | (units | (unknown) | | | | | [facility] | value) | unknown) | | | | [facility] | | | | + + + + +---------+ + + + + | Result panel 325 | + + + + + + +---------+ + + | (unknown) | (no date) | (unknown) | [facility] | (no | (units | (unknown) | | | | | [facility] | value) | unknown) | | | | | [facility] | | | | + + + + +---------+ + + + + | Result panel 326 | + + + + + + +---------+ + + | (unknown) | (no date) | (unknown) | [facility] | (no | (units | (unknown) | | | | | [facility] | value) | unknown) | [facility] | | [facility] | | | | + + + + +---------+ + + + + | Result panel 327 | + + + + + + +---------+ + + | (unknown) | (no date) | (unknown) | [facility] | (no | (units | (unknown) | | | | | [facility] | value) | unknown) | | | | | [facility] | | | | + + + + +---------+ + + + + | Result panel 328 | + + + + + + +---------+ + + | (unknown) | (no date) | (unknown) | [facility] | (no | (units | (unknown) | | | | | [facility] | value) | unknown) | | | | [facility] | | | | + + + + +---------+ + + + + | Result panel 329 | + + + + + + +---------+ + + | (unknown) | (no date) | (unknown) | [facility] | (no | (units | (unknown) | | | | | [facility] | value) | unknown) | | | | [facility] | | | | + + + + +---------+ + + + + | Result panel 330 | + + + + + + +---------+ + + | (unknown) | (no date) | (unknown) | [facility] | (no | (units | (unknown) | | | | | [facility] | value) | unknown) | | | | | [facility] | | | | + + + + +---------+ + + + + | Result panel 331 | + + + + + + +---------+ + + | (unknown) | (no date) | (unknown) | [facility] | (no | (units | (unknown) | | | | | [facility] | value) | unknown) | | | | [facility] | | | | + + + + +---------+ + + + + | Result panel 332 | + + + + + + +---------+ + + | (unknown) | (no date) | (unknown) | [facility] | (no | (units | (unknown) | | | | | [facility] | value) | unknown) | | | | [facility] | | | | + + + + +---------+ + + + + | Result panel 333 | + + + + + + +---------+ + + | (unknown) | (no date) | (unknown) | [facility] | (no | (units | (unknown) | | | | | [facility] | value) | unknown) | | | | [facility] | | | | + + + + +---------+ + + + + | Result panel 334 | + + + + + + +---------+ + + | (unknown) | (no date) | (unknown) | [facility] | (no | (units | (unknown) | | | | | [facility] | value) | unknown) | | | | [facility] | | | | + + + + +---------+ + + + + | Result panel 335 | + + + + + + +---------+ + + | (unknown) | (no date) | (unknown) | [facility] | (no | (units | (unknown) | | | | | [facility] | value) | unknown) | | | | [facility] | | | | + + + + +---------+ + + + + | Result panel 336 | + + + + + + +---------+ + + | (unknown) | (no date) | (unknown) | [facility] | (no | (units | (unknown) | | | | | [facility] | value) | unknown) | | | | [facility] | | | | + + + + +---------+ + + + + | Result panel 337 | + + + + + + +---------+ + + | (unknown) | (no date) | (unknown) | [facility] | (no | (units | (unknown) | | | | | [facility] | value) | unknown) | | | | [facility] | | | | + + + + +---------+ + + + + | Result panel 338 | + + + + + + +---------+ + + | (unknown) | (no date) | (unknown) | [facility] | (no | (units | (unknown) | | | | | [facility] | value) | unknown) | | | | [facility] | | | | + + + + +---------+ + + + + | Result panel 339 | + + + + + + +---------+ + + | (unknown) | (no date) | (unknown) | [facility] | (no | (units | (unknown) | | | | | [facility] | value) | unknown) | | [facility] | [facility] | | | | + + + + +---------+ + + + + | Result panel 340 | + + + + + + +---------+ + + | (unknown) | (no date) | (unknown) | [facility] | (no | (units | (unknown) | | | | | [facility] | value) | unknown) | [facility] | | [facility] | | | | + + + + +---------+ + + + + | Result panel 341 | + + + + + + +---------+ + + | (unknown) | (no date) | (unknown) | [facility] | (no | (units | (unknown) | | | | | [facility] | value) | unknown) | | | | [facility] | | | | + + + + +---------+ + + + + | Result panel 342 | + + + + + + +---------+ + + | (unknown) | (no date) | (unknown) | [facility] | (no | (units | (unknown) | | | | | [facility] | value) | unknown) | | | | [facility] | | | | + + + + +---------+ + + + + | Result panel 343 | + + + + + + +---------+ + + | (unknown) | (no date) | (unknown) | [facility] | (no | (units | (unknown) | | | | | [facility] | value) | unknown) | | | | [facility] | | | | + + + + +---------+ + + + + | Result panel 344 | + + + + + + +---------+ + + | (unknown) | (no date) | (unknown) | [facility] | (no | (units | (unknown) | | | | | [facility] | value) | unknown) | | | | | [facility] | | | | + + + + +---------+ + + + + | Result panel 345 | + + + + + + +---------+ + + | (unknown) | (no date) | (unknown) | [facility] | (no | (units | (unknown) | | | | | [facility] | value) | unknown) | | | | [facility] | | | | + + + + +---------+ + + + + | Result panel 346 | + + + + + + +---------+ + + | (unknown) | (no date) | (unknown) | [facility] | (no | (units | (unknown) | | | | | [facility] | value) | unknown) | | | | [facility] | | | | + + + + +---------+ + + + + | Result panel 347 | + + + + + + +---------+ + + | (unknown) | (no date) | (unknown) | [facility] | (no | (units | (unknown) | | | | | [facility] | value) | unknown) | | | | | [facility] | | | | + + + + +---------+ + + + + | Result panel 348 | + + + + + + +---------+ + + | (unknown) | (no date) | (unknown) | [facility] | (no | (units | (unknown) | | | | | [facility] | value) | unknown) | | | | [facility] | | | | + + + + +---------+ + + + + | Result panel 349 | + + + + + + +---------+ + + | (unknown) | (no date) | (unknown) | [facility] | (no | (units | (unknown) | | | | | [facility] | value) | unknown) | | | | | [facility] | | | | + + + + +---------+ + + + + | Result panel 350 | + + + + + + +---------+ + + | (unknown) | (no date) | (unknown) | [facility] | (no | (units | (unknown) | | | | | [facility] | value) | unknown) | | | | | [facility] | | | | + + + + +---------+ + + + + | Result panel 351 | + + + + + + +---------+ + + | (unknown) | (no date) | (unknown) | [facility] | (no | (units | (unknown) | | | | | [facility] | value) | unknown) | | | | | [facility] | | | | + + + + +---------+ + + + + | Result panel 352 | + + + + + + +---------+ + + | (unknown) | (no date) | (unknown) | [facility] | (no | (units | (unknown) | | | | | [facility] | value) | unknown) | | | | | [facility] | | | | + + + + +---------+ + + + + | Result panel 353 | + + + + + + +---------+ + + | (unknown) | (no date) | (unknown) | [facility] | (no | (units | (unknown) | | | | | [facility] | value) | unknown) | | | | | [facility] | | | | + + + + +---------+ + + + + | Result panel 354 | + + + + + + +---------+ + + | (unknown) | (no date) | (unknown) | [facility] | (no | (units | (unknown) | | | | | [facility] | value) | unknown) | | [facility] | [facility] | | | | + + + + +---------+ + + + + | Result panel 355 | + + + + + + +---------+ + + | (unknown) | (no date) | (unknown) | [facility] | (no | (units | (unknown) | | | | | [facility] | value) | unknown) | | | | | [facility] | | | | + + + + +---------+ + + + + | Result panel 356 | + + + + + + +---------+ + + | (unknown) | (no date) | (unknown) | [facility] | (no | (units | (unknown) | | | | | [facility] | value) | unknown) | | | | | [facility] | | | | + + + + +---------+ + + + + | Result panel 357 | + + + + + + +---------+ + + | (unknown) | (no date) | (unknown) | [facility] | (no | (units | (unknown) | | | | | [facility] | value) | unknown) | | | | | [facility] | | | | + + + + +---------+ + + + + | Result panel 358 | + + + + + + +---------+ + + | (unknown) | (no date) | (unknown) | [facility] | (no | (units | (unknown) | | | | | [facility] | value) | unknown) | | [facility] | | [facility] | | | | + + + + +---------+ + + + + | Result panel 359 | + + + + + + +---------+ + + | (unknown) | (no date) | (unknown) | [facility] | (no | (units | (unknown) | | | | | [facility] | value) | unknown) | | | | | [facility] | | | | + + + + +---------+ + + + + | Result panel 360 | + + + + + + +---------+ + + | (unknown) | (no date) | (unknown) | [facility] | (no | (units | (unknown) | | | | | [facility] | value) | unknown) | | | | | [facility] | | | | + + + + +---------+ + + + + | Result panel 361 | + + + + + + +---------+ + + | (unknown) | (no date) | (unknown) | [facility] | (no | (units | (unknown) | | | | | [facility] | value) | unknown) | | | | | [facility] | | | | + + + + +---------+ + + + + | Result panel 362 | + + + + + + +---------+ + + | (unknown) | (no date) | (unknown) | [facility] | (no | (units | (unknown) | | | | | [facility] | value) | unknown) | [facility] | | [facility] | | | | + + + + +---------+ + + + + | Result panel 363 | + + + + + + +---------+ + + | (unknown) | (no date) | (unknown) | [facility] | (no | (units | (unknown) | | | | | [facility] | value) | unknown) | [facility] | | | [facility] | | | | + + + + +---------+ + + + + | Result panel 364 | + + + + + + +---------+ + + | (unknown) | (no date) | (unknown) | [facility] | (no | (units | (unknown) | | | | | [facility] | value) | unknown) | | | | | [facility] | | | | + + + + +---------+ + + + + | Result panel 365 | + + + + + + +---------+ + + | (unknown) | (no date) | (unknown) | [facility] | (no | (units | (unknown) | | | | | [facility] | value) | unknown) | | | | | [facility] | | | | + + + + +---------+ + + + + | Result panel 366 | + + + + + + +---------+ + + | (unknown) | (no date) | (unknown) | [facility] | (no | (units | (unknown) | | | | | [facility] | value) | unknown) | | | | | [facility] | | | | + + + + +---------+ + + + + | Result panel 367 | + + + + + + +---------+ + + | (unknown) | (no date) | (unknown) | [facility] | (no | (units | (unknown) | | | | | [facility] | value) | unknown) | | | | | | [facility] | | | | + + + + +---------+ + + + + | Result panel 368 | + + + + + + +---------+ + + | (unknown) | (no date) | (unknown) | [facility] | (no | (units | (unknown) | | | | | [facility] | value) | unknown) | | | | | | [facility] | | | | + + + + +---------+ + + + + | Result panel 369 | + + + + + + +---------+ + + | (unknown) | (no date) | (unknown) | [facility] | (no | (units | (unknown) | | | | | [facility] | value) | unknown) | | | | | | [facility] | | | | + + + + +---------+ + + + + | Result panel 370 | + + + + + + +---------+ + + | (unknown) | (no date) | (unknown) | [facility] | (no | (units | (unknown) | | | | | [facility] | value) | unknown) | | | | | | [facility] | | | | + + + + +---------+ + + + + | Result panel 371 | + + + + + + +---------+ + + | (unknown) | (no date) | (unknown) | [facility] | (no | (units | (unknown) | | | | | [facility] | value) | unknown) | | | | | | [facility] | | | | + + + + +---------+ + + + + | Result panel 372 | + + + + + + +---------+ + + | (unknown) | (no date) | (unknown) | [facility] | (no | (units | (unknown) | | | | | [facility] | value) | unknown) | | | | | | [facility] | | | | + + + + +---------+ + + + + | Result panel 373 | + + + + + + +---------+ + + | (unknown) | (no date) | (unknown) | [facility] | (no | (units | (unknown) | | | | | [facility] | value) | unknown) | | | | | [facility] | | | | + + + + +---------+ + + + + | Result panel 374 | + + + + + + +---------+ + + | (unknown) | (no date) | (unknown) | [facility] | (no | (units | (unknown) | | | | | [facility] | value) | unknown) | | | | | | [facility] | | | | + + + + +---------+ + + + + | Result panel 375 | + + + + + + +---------+ + + | (unknown) | (no date) | (unknown) | [facility] | (no | (units | (unknown) | | | | [facility] value[facility] | unknown) | | | [facility] | | | | + + + + +---------+ + + + + | Result panel 376 | + + + + + + +---------+ + + | (unknown) | (no date) | (unknown) | [facility] | (no | (units | (unknown) | | | | | [facility] | value) | unknown) | | | [facility] | | | | + + + + +---------+ + + + + | Result panel 377 | + + + + + + +---------+ + + | (unknown) | (no date) | (unknown) | [facility] | (no | (units | (unknown) | | | | | [facility] | value) | unknown) | | | [facility] | | | | + + + + +---------+ + + + + | Result panel 378 | + + + + + + +---------+ + + | (unknown) | (no date) | (unknown) | [facility] | (no | (units | (unknown) | | | | | [facility] | value) | unknown) | | | [facility] | | | | + + + + +---------+ + + + + | Result panel 379 | + + + + + + +---------+ + + | (unknown) | (no date) | (unknown) | [facility] | (no | (units | (unknown) | | | | | [facility] | value) | unknown) | | | [facility] | | | | + + + + +---------+ + + + + | Result panel 380 | + + + + + + +---------+ + + | (unknown) | (no date) | (unknown) | [facility] | (no | (units | (unknown) | | | | | [facility] | value) | unknown) | | | [facility] | | | | + + + + +---------+ + + + + | Result panel 381 | + + + + + + +---------+ + + | (unknown) | (no date) | (unknown) | [facility] | (no | (units | (unknown) | | | | | [facility] | value) | unknown) | | | [facility] | | | | + + + + +---------+ + + + + | Result panel 382 | + + + + + + +---------+ + + | (unknown) | (no date) | (unknown) | [facility] | (no | (units | (unknown) | | | | | [facility] | value) | unknown) | | | [facility] | | | | + + + + +---------+ + + + + | Result panel 383 | + + + + + + +---------+ + + | (unknown) | (no date) | (unknown) | [facility] | (no | (units | (unknown) | | | | | [facility] | value) | unknown) | | | [facility] | | | | + + + + +---------+ + + + + | Result panel 384 | + + + + + + +---------+ + + | (unknown) | (no date) | (unknown) | [facility] | (no | (units | (unknown) | | | | | [facility] value) | unknown) | | | [facility] | | | | + + + + +---------+ + + + + | Result panel 385 | + + + + + + +---------+ + + | (unknown) | (no date) | (unknown) | [facility] | (no | (units | (unknown) | | | | | [facility] value) | unknown) | | | [facility] | | | | + + + + +---------+ + + + + | Result panel 386 | + + + + + + +---------+ + + | (unknown) | (no date) | (unknown) | [facility] | (no | (units | (unknown) | | | | | [facility] | value) | unknown) | | | [facility] | | | | + + + + +---------+ + + + + | Result panel 387 | + + + + + + +---------+ + + | (unknown) | (no date) | (unknown) | [facility] | (no | (units | (unknown) | | | | | [facility] | value) | unknown) | | | [facility] | | | | + + + + +---------+ + + + + | Result panel 388 | + + + + + + +---------+ + + | (unknown) | (no date) | (unknown) | [facility] | (no | (units | (unknown) | | | | | [facility] | value) | unknown) | | | | [facility] | | | | + + + + +---------+ + + + + | Result panel 389 | + + + + + + +---------+ + + | (unknown) | (no date) | (unknown) | [facility] | (no | (units | (unknown) | | | | | [facility] | value) | unknown) | | | | [facility] | | | | + + + + +---------+ + + + + | Result panel 390 | + + + + + + +---------+ + + | (unknown) | (no date) | (unknown) | [facility] | (no | (units | (unknown) | | | | | [facility] | value) | unknown) | | | [facility] | | | | + + + + +---------+ + + + + | Result panel 391 | + + + + + + +---------+ + + | (unknown) | (no date) | (unknown) | [facility] | (no | (units | (unknown) | | | | | [facility] | value) | unknown) | | [facility] | [facility] | | | | + + + + +---------+ + + + + | Result panel 392 | + + + + + + +---------+ + + | (unknown) | (no date) | (unknown) | [facility] | (no | (units | (unknown) | | | | | [facility] | value) | unknown) | [facility] | | | | + + + + +---------+ + + + + | Result panel 393 | + + + + + + +---------+ + + | (unknown) | (no date) | (unknown) | [facility] | (no | (units | (unknown) | | | | | [facility] | value) | unknown) | | | [facility] | | | | + + + + +---------+ + + + + | Result panel 394 | + + + + + + +---------+ + + | (unknown) | (no date) | (unknown) | [facility] | (no | (units | (unknown) | | | | | [facility] | value) | unknown) | | [facility] | | | | + + + + +---------+ + + + + | Result panel 395 | + + + + + + +---------+ + + | (unknown) | (no date) | (unknown) | [facility] | (no | (units | (unknown) | | | | | [facility] | value) | unknown) | | | [facility] | | | | + + + + +---------+ + + + + | Result panel 396 | + + + + + + +---------+ + + | (unknown) | (no date) | (unknown) | [facility] | (no | (units | (unknown) | | | | | [facility] | value) | unknown) | | | | [facility] | | | | + + + + +---------+ + + + + | Result panel 397 | + + + + + + +---------+ + + | (unknown) | (no date) | (unknown) | [facility] | (no | (units | (unknown) | | | | | [facility] | value) | unknown) | | | | [facility] | | | | + + + + +---------+ + + + + | Result panel 398 | + + + + + + +---------+ + + | (unknown) | (no date) | (unknown) | [facility] | (no | (units | (unknown) | | | | | [facility] | value) | unknown) | | | | [facility] | | | | + + + + +---------+ + + + + | Result panel 399 | + + + + + + +---------+ + + | (unknown) | (no date) | (unknown) | [facility] | (no | (units | (unknown) | | | | | [facility] | value) | unknown) | [facility] | | [facility] | | | | + + + + +---------+ + + + + | Result panel 400 | + + + + + + +---------+ + + | (unknown) | (no date) | (unknown) | [facility] | (no | (units | (unknown) | | | | | [facility] | value) | unknown) | | | | [facility] | | | | + + + + +---------+ + + + + | Result panel 401 | + + + + + + +---------+ + + | (unknown) | (no date) | (unknown) | [facility] | (no | (units | (unknown) | | | | | [facility] | value) | unknown) | | | | | [facility] | | | | + + + + +---------+ + + + + | Result panel 402 | + + + + + + +---------+ + + | (unknown) | (no date) | (unknown) | [facility] | (no | (units | (unknown) | | | | | [facility] | value) | unknown) | | [facility] | [facility] | | | | + + + + +---------+ + + + + | Result panel 403 | + + + + + + +---------+ + + | (unknown) | (no date) | (unknown) | [facility] | (no | (units | (unknown) | | | | | [facility] | value) | unknown) | | | | [facility] | | | | + + + + +---------+ + + + + | Result panel 404 | + + + + + + +---------+ + + | (unknown) | (no date) | (unknown) | [facility] | (no | (units | (unknown) | | | | | [facility] | value) | unknown) | | | | [facility] | | | | + + + + +---------+ + + + + | Result panel 405 | + + + + + + +---------+ + + | (unknown) | (no date) | (unknown) | [facility] | (no | (units | (unknown) | | | | | [facility] | value) | unknown) | | | | | [facility] | | | | + + + + +---------+ + + + + | Result panel 406 | + + + + + + +---------+ + + | (unknown) | (no date) | (unknown) | [facility] | (no | (units | (unknown) | | | | | [facility] | value) | unknown) | | | | [facility] | | | | + + + + +---------+ + + + + | Result panel 407 | + + + + + + +---------+ + + | (unknown) | (no date) | (unknown) | [facility] | (no | (units | (unknown) | | | | | [facility] | value) | unknown) | | | | [facility] | | | | + + + + +---------+ + + + + | Result panel 408 | + + + + + + +---------+ + + | (unknown) | (no date) | (unknown) | [facility] | (no | (units | (unknown) | | | | | [facility] | value) | unknown) | | | | [facility] | | | | + + + + +---------+ + + + + | Result panel 409 | + + + + + + +---------+ + + | (unknown) | (no date) | (unknown) | [facility] | (no | (units | (unknown) | | | | | [facility] | value) | unknown) | | | | [facility] | | | | + + + + +---------+ + + + + | Result panel 410 | + + + + + + +---------+ + + | (unknown) | (no date) | (unknown) | [facility] | (no | (units | (unknown) | | | | | [facility] | value) | unknown) | | | | | [facility] | | | | + + + + +---------+ + + + + | Result panel 411 | + + + + + + +---------+ + + | (unknown) | (no date) | (unknown) | [facility] | (no | (units | (unknown) | | | | | [facility] | value) | unknown) | | | | [facility] | | | | + + + + +---------+ + + + + | Result panel 412 | + + + + + + +---------+ + + | (unknown) | (no date) | (unknown) | [facility] | (no | (units | (unknown) | | | | | [facility] | value) | unknown) | | | | | [facility] | | | | + + + + +---------+ + + + + | Result panel 413 | + + + + + + +---------+ + + | (unknown) | (no date) | (unknown) | [facility] | (no | (units | (unknown) | | | | | [facility] | value) | unknown) | | [facility] | [facility] | | | | + + + + +---------+ + + + + | Result panel 414 | + + + + + + +---------+ + + | (unknown) | (no date) | (unknown) | [facility] | (no | (units | (unknown) | | | | | [facility] | value) | unknown) | | [facility] | [facility] | | | | + + + + +---------+ + + + + | Result panel 415 | + + + + + + +---------+ + + | (unknown) | (no date) | (unknown) | [facility] | (no | (units | (unknown) | | | | | [facility] | value) | unknown) | | | | [facility] | | | | + + + + +---------+ + + + + | Result panel 416 | + + + + + + +---------+ + + | (unknown) | (no date) | (unknown) | [facility] | (no | (units | (unknown) | | | | | [facility] | value) | unknown) | | | | [facility] | | | | + + + + +---------+ + + + + | Result panel 417 | + + + + + + +---------+ + + | (unknown) | (no date) | (unknown) | [facility] | (no | (units | (unknown) | | | | | [facility] | value) | unknown) | | | | [facility] | | | | + + + + +---------+ + + + + | Result panel 418 | + + + + + + +---------+ + + | (unknown) | (no date) | (unknown) | [facility] | (no | (units | (unknown) | | | | | [facility] | value) | unknown) | | | | | [facility] | | | | + + + + +---------+ + + + + | Result panel 419 | + + + + + + +---------+ + + | (unknown) | (no date) | (unknown) | [facility] | (no | (units | (unknown) | | | | | [facility] | value) | unknown) | | | | | [facility] | | | | + + + + +---------+ + + + + | Result panel 420 | + + + + + + +---------+ + + | (unknown) | (no date) | (unknown) | [facility] | (no | (units | (unknown) | | | | | [facility] | value) | unknown) | | | | | [facility] | | | | + + + + +---------+ + + + + | Result panel 421 | + + + + + + +---------+ + + | (unknown) | (no date) | (unknown) | [facility] | (no | (units | (unknown) | | | | | [facility] | value) | unknown) | [facility] | | [facility] | | | | + + + + +---------+ + + + + | Result panel 422 | + + + + + + +---------+ + + | (unknown) | (no date) | (unknown) | [facility] | (no | (units | (unknown) | | | | | [facility] | value) | unknown) | | [facility] | [facility] | | | | + + + + +---------+ + + + + | Result panel 423 | + + + + + + +---------+ + + | (unknown) | (no date) | (unknown) | [facility] | (no | (units | (unknown) | | | | | [facility] | value) | unknown) | [facility] | | [facility] | | | | + + + + +---------+ + + + + | Result panel 424 | + + + + + + +---------+ + + | (unknown) | (no date) | (unknown) | [facility] | (no | (units | (unknown) | | | | | [facility] | value) | unknown) | | [facility] | [facility] | | | | + + + + +---------+ + + + + | Result panel 425 | + + + + + + +---------+ + + | (unknown) | (no date) | (unknown) | [facility] | (no | (units | (unknown) | | | | | [facility] | value) | unknown) | | [facility] | [facility] | | | | + + + + +---------+ + + + + | Result panel 426 | + + + + + + +---------+ + + | (unknown) | (no date) | (unknown) | [facility] | (no | (units | (unknown) | | | | | [facility] | value) | unknown) | | | | [facility] | | | | + + + + +---------+ + + + + | Result panel 427 | + + + + + + +---------+ + + | (unknown) | (no date) | (unknown) | [facility] | (no | (units | (unknown) | | | | | [facility] | value) | unknown) | | | | | [facility] | | | | + + + + +---------+ + + + + | Result panel 428 | + + + + + + +---------+ + + | (unknown) | (no date) | (unknown) | [facility] | (no | (units | (unknown) | | | | | [facility] | value) | unknown) | | | | [facility] | | | | + + + + +---------+ + + + + | Result panel 429 | + + + + + + +---------+ + + | (unknown) | (no date) | (unknown) | [facility] | (no | (units | (unknown) | | | | | [facility] | value) | unknown) | | | | [facility] | | | | + + + + +---------+ + + + + | Result panel 430 | + + + + + + +---------+ + + | (unknown) | (no date) | (unknown) | [facility] | (no | (units | (unknown) | | | | | [facility] | value) | unknown) | | | | | [facility] | | | | + + + + +---------+ + + + + | Result panel 431 | + + + + + + +---------+ + + | (unknown) | (no date) | (unknown) | [facility] | (no | (units | (unknown) | | | | | [facility] | value) | unknown) | | | | [facility] | | | | + + + + +---------+ + + + + | Result panel 432 | + + + + + + +---------+ + + | (unknown) | (no date) | (unknown) | [facility] | (no | (units | (unknown) | | | | | [facility] | value) | unknown) | | | | | [facility] | | | | + + + + +---------+ + + + + | Result panel 433 | + + + + + + +---------+ + + | (unknown) | (no date) | (unknown) | [facility] | (no | (units | (unknown) | | | | | [facility] | value) | unknown) | | | | | [facility] | | | | + + + + +---------+ + + + + | Result panel 434 | + + + + + + +---------+ + + | (unknown) | (no date) | (unknown) | [facility] | (no | (units | (unknown) | | | | | [facility] | value) | unknown) | | | | [facility] | | | | + + + + +---------+ + + + + | Result panel 435 | + + + + + + +---------+ + + | (unknown) | (no date) | (unknown) | [facility] | (no | (units | (unknown) | | | | | [facility] | value) | unknown) | | | | [facility] | | | | + + + + +---------+ + + + + | Result panel 436 | + + + + + + +---------+ + + | (unknown) | (no date) | (unknown) | [facility] | (no | (units | (unknown) | | | | | [facility] | value) | unknown) | | | | [facility] | | | | + + + + +---------+ + + + + | Result panel 437 | + + + + + + +---------+ + + | (unknown) | (no date) | (unknown) | [facility] | (no | (units | (unknown) | | | | | [facility] | value) | unknown) | | | | [facility] | | | | + + + + +---------+ + + + + | Result panel 438 | + + + + + + +---------+ + + | (unknown) | (no date) | (unknown) | [facility] | (no | (units | (unknown) | | | | | [facility] | value) | unknown) | | | | [facility] | | | | + + + + +---------+ + + + + | Result panel 439 | + + + + + + +---------+ + + | (unknown) | (no date) | (unknown) | [facility] | (no | (units | (unknown) | | | | | [facility] | value) | unknown) | | [facility] | [facility] | | | | + + + + +---------+ + + + + | Result panel 440 | + + + + + + +---------+ + + | (unknown) | (no date) | (unknown) | [facility] | (no | (units | (unknown) | | | | | [facility] | value) | unknown) | | | | [facility] | | | | + + + + +---------+ + + + + | Result panel 441 | + + + + + + +---------+ + + | (unknown) | (no date) | (unknown) | [facility] | (no | (units | (unknown) | | | | | [facility] | value) | unknown) | | | | | [facility] | | | | + + + + +---------+ + + + + | Result panel 442 | + + + + + + +---------+ + + | (unknown) | (no date) | (unknown) | [facility] | (no | (units | (unknown) | | | | | [facility] | value) | unknown) | | | | [facility] | | | | + + + + +---------+ + + + + | Result panel 443 | + + + + + + +---------+ + + | (unknown) | (no date) | (unknown) | [facility] | (no | (units | (unknown) | | | | | [facility] | value) | unknown) | | | | [facility] | | | | + + + + +---------+ + + + + | Result panel 444 | + + + + + + +---------+ + + | (unknown) | (no date) | (unknown) | [facility] | (no | (units | (unknown) | | | | | [facility] | value) | unknown) | [facility] | | | | + + + + +---------+ + + + + | Result panel 445 | + + + + + + +---------+ + + | (unknown) | (no date) | (unknown) | [facility] | (no | (units | (unknown) | | | | | [facility] | value) | unknown) | | | | [facility] | | | | + + + + +---------+ + + + + | Result panel 446 | + + + + + + +---------+ + + | (unknown) | (no date) | (unknown) | [facility] | (no | (units | (unknown) | | | | | [facility] | value) | unknown) | | [facility] | | | | + + + + +---------+ + + + + | Result panel 447 | + + + + + + +---------+ + + | (unknown) | (no date) | (unknown) | [facility] | (no | (units | (unknown) | | | | | [facility] | value) | unknown) | | | | | [facility] | | | | + + + + +---------+ + + + + | Result panel 448 | + + + + + + +---------+ + + | (unknown) | (no date) | (unknown) | [facility] | (no | (units | (unknown) | | | | | [facility] | value) | unknown) | | | | [facility] | | | | + + + + +---------+ + + + + | Result panel 449 | + + + + + + +---------+ + + | (unknown) | (no date) | (unknown) | [facility] | (no | (units | (unknown) | | | | | [facility] | value) | unknown) | | | | [facility] | | | | + + + + +---------+ + + + + | Result panel 450 | + + + + + + +---------+ + + | (unknown) | (no date) | (unknown) | [facility] | (no | (units | (unknown) | | | | | [facility] | value) | unknown) | | [facility] | [facility] | | | | + + + + +---------+ + + + + | Result panel 451 | + + + + + + +---------+ + + | (unknown) | (no date) | (unknown) | [facility] | (no | (units | (unknown) | | | | | [facility] | value) | unknown) | | | | [facility] | | | | + + + + +---------+ + + + + | Result panel 452 | + + + + + + +---------+ + + | (unknown) | (no date) | (unknown) | [facility] | (no | (units | (unknown) | | | | | [facility] | value) | unknown) | | | | [facility] | | | | + + + + +---------+ + + + + | Result panel 453 | + + + + + + +---------+ + + | (unknown) | (no date) | (unknown) | [facility] | (no | (units | (unknown) | | | | | [facility] | value) | unknown) | | | | | [facility] | | | | + + + + +---------+ + + + + | Result panel 454 | + + + + + + +---------+ + + | (unknown) | (no date) | (unknown) | [facility] | (no | (units | (unknown) | | | | | [facility] | value) | unknown) | | | | [facility] | | | | + + + + +---------+ + + + + | Result panel 455 | + + + + + + +---------+ + + | (unknown) | (no date) | (unknown) | [facility] | (no | (units | (unknown) | | | | | [facility] | value) | unknown) | | | | [facility] | | | | + + + + +---------+ + + + + | Result panel 456 | + + + + + + +---------+ + + | (unknown) | (no date) | (unknown) | [facility] | (no | (units | (unknown) | | | | | [facility] | value) | unknown) | [facility] | | [facility] | | | | + + + + +---------+ + + + + | Result panel 457 | + + + + + + +---------+ + + | (unknown) | (no date) | (unknown) | [facility] | (no | (units | (unknown) | | | | | [facility] | value) | unknown) | | | | [facility] | | | | + + + + +---------+ + + + + | Result panel 458 | + + + + + + +---------+ + + | (unknown) | (no date) | (unknown) | [facility] | (no | (units | (unknown) | | | | | [facility] | value) | unknown) | | | | [facility] | | | | + + + + +---------+ + + + + | Result panel 459 | + + + + + + +---------+ + + | (unknown) | (no date) | (unknown) | [facility] | (no | (units | (unknown) | | | | | [facility] | value) | unknown) | | [facility] | [facility] | | | | + + + + +---------+ + + + + | Result panel 460 | + + + + + + +---------+ + + | (unknown) | (no date) | (unknown) | [facility] | (no | (units | (unknown) | | | | | [facility] | value) | unknown) | | | | | [facility] | | | | + + + + +---------+ + + + + | Result panel 461 | + + + + + + +---------+ + + | (unknown) | (no date) | (unknown) | [facility] | (no | (units | (unknown) | | | | | [facility] | value) | unknown) | | | | | [facility] | | | | + + + + +---------+ + + + + | Result panel 462 | + + + + + + +---------+ + + | (unknown) | (no date) | (unknown) | [facility] | (no | (units | (unknown) | | | | | [facility] | value) | unknown) | | | | | [facility] | | | | + + + + +---------+ + + + + | Result panel 463 | + + + + + + +---------+ + + | (unknown) | (no date) | (unknown) | [facility] | (no | (units | (unknown) | | | | | [facility] | value) | unknown) | | | | | [facility] | | | | + + + + +---------+ + + + + | Result panel 464 | + + + + + + +---------+ + + | (unknown) | (no date) | (unknown) | [facility] | (no | (units | (unknown) | | | | | [facility] | value) | unknown) | | | | | [facility] | | | | + + + + +---------+ + + + + | Result panel 465 | + + + + + + +---------+ + + | (unknown) | (no date) | (unknown) | [facility] | (no | (units | (unknown) | | | | | [facility] | value) | unknown) | | | | [facility] | | | | + + + + +---------+ + + + + | Result panel 466 | + + + + + + +---------+ + + | (unknown) | (no date) | (unknown) | [facility] | (no | (units | (unknown) | | | | | [facility] | value) | unknown) | | [facility] | [facility] | | | | + + + + +---------+ + + + + | Result panel 467 | + + + + + + +---------+ + + | (unknown) | (no date) | (unknown) | [facility] | (no | (units | (unknown) | | | | | [facility] | value) | unknown) | | [facility] | [facility] | | | | + + + + +---------+ + + + + | Result panel 468 | + + + + + + +---------+ + + | (unknown) | (no date) | (unknown) | [facility] | (no | (units | (unknown) | | | | | [facility] | value) | unknown) | | | | | [facility] | | | | + + + + +---------+ + + + + | Result panel 469 | + + + + + + +---------+ + + | (unknown) | (no date) | (unknown) | [facility] | (no | (units | (unknown) | | | | | [facility] | value) | unknown) | | | | [facility] | | | | + + + + +---------+ + + + + | Result panel 470 | + + + + + + +---------+ + + | (unknown) | (no date) | (unknown) | [facility] | (no | (units | (unknown) | | | | | [facility] | value) | unknown) | | | | | [facility] | | | | + + + + +---------+ + + + + | Result panel 471 | + + + + + + +---------+ + + | (unknown) | (no date) | (unknown) | [facility] | (no | (units | (unknown) | | | | | [facility] | value) | unknown) | | | | [facility] | | | | + + + + +---------+ + + + + | Result panel 472 | + + + + + + +---------+ + + | (unknown) | (no date) | (unknown) | [facility] | (no | (units | (unknown) | | | | | [facility] | value) | unknown) | | [facility] | [facility] | | | | + + + + +---------+ + + + + | Result panel 473 | + + + + + + +---------+ + + | (unknown) | (no date) | (unknown) | [facility] | (no | (units | (unknown) | | | | | [facility] | value) | unknown) | | | | [facility] | | | | + + + + +---------+ + + + + | Result panel 474 | + + + + + + +---------+ + + | (unknown) | (no date) | (unknown) | [facility] | (no | (units | (unknown) | | | | | [facility] | value) | unknown) | | | | [facility] | | | | + + + + +---------+ + + + + | Result panel 475 | + + + + + + +---------+ + + | (unknown) | (no date) | (unknown) | [facility] | (no | (units | (unknown) | | | | | [facility] | value) | unknown) | | [facility] | [facility] | | | | + + + + +---------+ + + + + | Result panel 476 | + + + + + + +---------+ + + | (unknown) | (no date) | (unknown) | [facility] | (no | (units | (unknown) | | | | | [facility] | value) | unknown) | | | | [facility] | | | | + + + + +---------+ + + + + | Result panel 477 | + + + + + + +---------+ + + | (unknown) | (no date) | (unknown) | [facility] | (no | (units | (unknown) | | | | | [facility] | value) | unknown) | | [facility] | [facility] | | | | + + + + +---------+ + + + + | Result panel 478 | + + + + + + +---------+ + + | (unknown) | (no date) | (unknown) | [facility] | (no | (units | (unknown) | | | | | [facility] | value) | unknown) | | | | | | [facility] | | | | + + + + +---------+ + + + + | Result panel 479 | + + + + + + +---------+ + + | (unknown) | (no date) | (unknown) | [facility] | (no | (units | (unknown) | | | | | [facility] | value) | unknown) | | | | | [facility] | | | | + + + + +---------+ + + + + | Result panel 480 | + + + + + + +---------+ + + | (unknown) | (no date) | (unknown) | [facility] | (no | (units | (unknown) | | | | | [facility] | value) | unknown) | | | | | [facility] | | | | + + + + +---------+ + + + + | Result panel 481 | + + + + + + +---------+ + + | (unknown) | (no date) | (unknown) | [facility] | (no | (units | (unknown) | | | | | [facility] | value) | unknown) | | | | | [facility] | | | | + + + + +---------+ + + + + | Result panel 482 | + + + + + + +---------+ + + | (unknown) | (no date) | (unknown) | [facility] | (no | (units | (unknown) | | | | | [facility] | value) | unknown) | | | | | [facility] | | | | + + + + +---------+ + + + + | Result panel 483 | + + + + + + +---------+ + + | (unknown) | (no date) | (unknown) | [facility] | (no | (units | (unknown) | | | | | [facility] | value) | unknown) | | | | | [facility] | | | | + + + + +---------+ + + + + | Result panel 484 | + + + + + + +---------+ + + | (unknown) | (no date) | (unknown) | [facility] | (no | (units | (unknown) | | | | | [facility] | value) | unknown) | | | | | [facility] | | | | + + + + +---------+ + + + + | Result panel 485 | + + + + + + +---------+ + + | (unknown) | (no date) | (unknown) | [facility] | (no | (units | (unknown) | | | | | [facility] | value) | unknown) | | | | | [facility] | | | | + + + + +---------+ + + + + | Result panel 486 | + + + + + + +---------+ + + | (unknown) | (no date) | (unknown) | [facility] | (no | (units | (unknown) | | | | [facility] value[facility] | unknown) | | | [facility] | | | | + + + + +---------+ + + + + | Result panel 487 | + + + + + + +---------+ + + | (unknown) | (no date) | (unknown) | [facility] | (no | (units | (unknown) | | | | | [facility] | value) | unknown) | | | [facility] | | | | + + + + +---------+ + + + + | Result panel 488 | + + + + + + +---------+ + + | (unknown) | (no date) | (unknown) | [facility] | (no | (units | (unknown) | | | | | [facility] | value) | unknown) | | | [facility] | | | | + + + + +---------+ + + + + | Result panel 489 | + + + + + + +---------+ + + | (unknown) | (no date) | (unknown) | [facility] | (no | (units | (unknown) | | | | | [facility] | value) | unknown) | | | [facility] | | | | + + + + +---------+ + + + + | Result panel 490 | + + + + + + +---------+ + + | (unknown) | (no date) | (unknown) | [facility] | (no | (units | (unknown) | | | | | [facility] | value) | unknown) | | | [facility] | | | | + + + + +---------+ + + + + | Result panel 491 | + + + + + + +---------+ + + | (unknown) | (no date) | (unknown) | [facility] | (no | (units | (unknown) | | | | | [facility] | value) | unknown) | | | [facility] | | | | + + + + +---------+ + + + + | Result panel 492 | + + + + + + +---------+ + + | (unknown) | (no date) | (unknown) | [facility] | (no | (units | (unknown) | | | | | [facility] | value) | unknown) | | | [facility] | | | | + + + + +---------+ + + + + | Result panel 493 | + + + + + + +---------+ + + | (unknown) | (no date) | (unknown) | [facility] | (no | (units | (unknown) | | | | | [facility] | value) | unknown) | | | [facility] | | | | + + + + +---------+ + + + + | Result panel 494 | + + + + + + +---------+ + + | (unknown) | (no date) | (unknown) | [facility] | (no | (units | (unknown) | | | | | [facility] | value) | unknown) | | | [facility] | | | | + + + + +---------+ + + + + | Result panel 495 | + + + + + + +---------+ + + | (unknown) | (no date) | (unknown) | [facility] | (no | (units | (unknown) | | | | | [facility] value) | unknown) | | | [facility] | | | | + + + + +---------+ + + + + | Result panel 496 | + + + + + + +---------+ + + | (unknown) | (no date) | (unknown) | [facility] | (no | (units | (unknown) | | | | | [facility] value) | unknown) | | | [facility] | | | | + + + + +---------+ + + + + | Result panel 497 | + + + + + + +---------+ + + | (unknown) | (no date) | (unknown) | [facility] | (no | (units | (unknown) | | | | | [facility] | value) | unknown) | | | [facility] | | | | + + + + +---------+ + + + + | Result panel 498 | + + + + + + +---------+ + + | (unknown) | (no date) | (unknown) | [facility] | (no | (units | (unknown) | | | | | [facility] | value) | unknown) | | | | [facility] | | | | + + + + +---------+ + + + + | Result panel 499 | + + + + + + +---------+ + + | (unknown) | (no date) | (unknown) | [facility] | (no | (units | (unknown) | | | | | [facility] | value) | unknown) | | | | [facility] | | | | + + + + +---------+ + + + + | Result panel 500 | + + + + + + +---------+ + + | (unknown) | (no date) | (unknown) | [facility] | (no | (units | (unknown) | | | | | [facility] | value) | unknown) | | [facility] | [facility] | | | | + + + + +---------+ + + + + | Result panel 501 | + + + + + + +---------+ + + | (unknown) | (no date) | (unknown) | [facility] | (no | (units | (unknown) | | | | | [facility] | value) | unknown) | | | | [facility] | | | | + + + + +---------+ + + + + | Result panel 502 | + + + + + + +---------+ + + | (unknown) | (no date) | (unknown) | [facility] | (no | (units | (unknown) | | | | | [facility] | value) | unknown) | | | | [facility] | | | | + + + + +---------+ + + + + | Result panel 503 | + + + + + + +---------+ + + | (unknown) | (no date) | (unknown) | [facility] | (no | (units | (unknown) | | | | | [facility] | value) | unknown) | | | [facility] | | | | + + + + +---------+ + + + + | Result panel 504 | + + + + + + +---------+ + + | (unknown) | (no date) | (unknown) | [facility] | (no | (units | (unknown) | | | | | [facility] | value) | unknown) | | [facility] | | | | + + + + +---------+ + + + + | Result panel 505 | + + + + + + +---------+ + + | (unknown) | (no date) | (unknown) | [facility] | (no | (units | (unknown) | | | | | [facility] | value) | unknown) | [facility] | [facility] | | | | + + + + +---------+ + + + + | Result panel 506 | + + + + + + +---------+ + + | (unknown) | (no date) | (unknown) | [facility] | (no | (units | (unknown) | | | | | [facility] | value) | unknown) | | | | [facility] | | | | + + + + +---------+ + + + + | Result panel 507 | + + + + + + +---------+ + + | (unknown) | (no date) | (unknown) | [facility] | (no | (units | (unknown) | | | | | [facility] | value) | unknown) | | | | [facility] | | | | + + + + +---------+ + + + + | Result panel 508 | + + + + + + +---------+ + + | (unknown) | (no date) | (unknown) | [facility] | (no | (units | (unknown) | | | | | [facility] | value) | unknown) | [facility] | | [facility] | | | | + + + + +---------+ + + + + | Result panel 509 | + + + + + + +---------+ + + | (unknown) | (no date) | (unknown) | [facility] | (no | (units | (unknown) | | | | | [facility] | value) | unknown) | | | | [facility] | | | | + + + + +---------+ + + + + | Result panel 510 | + + + + + + +---------+ + + | (unknown) | (no date) | (unknown) | [facility] | (no | (units | (unknown) | | | | | [facility] | value) | unknown) | | | | [facility] | | | | + + + + +---------+ + + + + | Result panel 511 | + + + + + + +---------+ + + | (unknown) | (no date) | (unknown) | [facility] | (no | (units | (unknown) | | | | | [facility] | value) | unknown) | | | | [facility] | | | | + + + + +---------+ + + + + | Result panel 512 | + + + + + + +---------+ + + | (unknown) | (no date) | (unknown) | [facility] | (no | (units | (unknown) | | | | | [facility] | value) | unknown) | | | | | [facility] | | | | + + + + +---------+ + + + + | Result panel 513 | + + + + + + +---------+ + + | (unknown) | (no date) | (unknown) | [facility] | (no | (units | (unknown) | | | | | [facility] | value) | unknown) | | | | | [facility] | | | | + + + + +---------+ + + + + | Result panel 514 | + + + + + + +---------+ + + | (unknown) | (no date) | (unknown) | [facility] | (no | (units | (unknown) | | | | | [facility] | value) | unknown) | | | | [facility] | | | | + + + + +---------+ + + + + | Result panel 515 | + + + + + + +---------+ + + | (unknown) | (no date) | (unknown) | [facility] | (no | (units | (unknown) | | | | | [facility] | value) | unknown) | | | | [facility] | | | | + + + + +---------+ + + + + | Result panel 516 | + + + + + + +---------+ + + | (unknown) | (no date) | (unknown) | [facility] | (no | (units | (unknown) | | | | | [facility] | value) | unknown) | | | | | [facility] | | | | + + + + +---------+ + + + + | Result panel 517 | + + + + + + +---------+ + + | (unknown) | (no date) | (unknown) | [facility] | (no | (units | (unknown) | | | | | [facility] | value) | unknown) | | | | [facility] | | | | + + + + +---------+ + + + + | Result panel 518 | + + + + + + +---------+ + + | (unknown) | (no date) | (unknown) | [facility] | (no | (units | (unknown) | | | | | [facility] | value) | unknown) | | | | | [facility] | | | | + + + + +---------+ + + + + | Result panel 519 | + + + + + + +---------+ + + | (unknown) | (no date) | (unknown) | [facility] | (no | (units | (unknown) | | | | | [facility] | value) | unknown) | | | | [facility] | | | | + + + + +---------+ + + + + | Result panel 520 | + + + + + + +---------+ + + | (unknown) | (no date) | (unknown) | [facility] | (no | (units | (unknown) | | | | | [facility] | value) | unknown) | | [facility] | [facility] | | | | + + + + +---------+ + + + + | Result panel 521 | + + + + + + +---------+ + + | (unknown) | (no date) | (unknown) | [facility] | (no | (units | (unknown) | | | | | [facility] | value) | unknown) | | | | | [facility] | | | | + + + + +---------+ + + + + | Result panel 522 | + + + + + + +---------+ + + | (unknown) | (no date) | (unknown) | [facility] | (no | (units | (unknown) | | | | | [facility] | value) | unknown) | | | | | [facility] | | | | + + + + +---------+ + + + + | Result panel 523 | + + + + + + +---------+ + + | (unknown) | (no date) | (unknown) | [facility] | (no | (units | (unknown) | | | | | [facility] | value) | unknown) | | | | | [facility] | | | | + + + + +---------+ + + + + | Result panel 524 | + + + + + + +---------+ + + | (unknown) | (no date) | (unknown) | [facility] | (no | (units | (unknown) | | | | | [facility] | value) | unknown) | | | | | [facility] | | | | + + + + +---------+ + + + + | Result panel 525 | + + + + + + +---------+ + + | (unknown) | (no date) | (unknown) | [facility] | (no | (units | (unknown) | | | | | [facility] | value) | unknown) | | | | | [facility] | | | | + + + + +---------+ + + + + | Result panel 526 | + + + + + + +---------+ + + | (unknown) | (no date) | (unknown) | [facility] | (no | (units | (unknown) | | | | | [facility] | value) | unknown) | | | | [facility] | | | | + + + + +---------+ + + + + | Result panel 527 | + + + + + + +---------+ + + | (unknown) | (no date) | (unknown) | [facility] | (no | (units | (unknown) | | | | | [facility] | value) | unknown) | | | | [facility] | | | | + + + + +---------+ + + + + | Result panel 528 | + + + + + + +---------+ + + | (unknown) | (no date) | (unknown) | [facility] | (no | (units | (unknown) | | | | | [facility] | value) | unknown) | | | | [facility] | | | | + + + + +---------+ + + + + | Result panel 529 | + + + + + + +---------+ + + | (unknown) | (no date) | (unknown) | [facility] | (no | (units | (unknown) | | | | | [facility] | value) | unknown) | [facility] | | | [facility] | | | | + + + + +---------+ + + + + | Result panel 530 | + + + + + + +---------+ + + | (unknown) | (no date) | (unknown) | [facility] | (no | (units | (unknown) | | | | | [facility] | value) | unknown) | | | | | [facility] | | | | + + + + +---------+ + + + + | Result panel 531 | + + + + + + +---------+ + + | (unknown) | (no date) | (unknown) | [facility] | (no | (units | (unknown) | | | | | [facility] | value) | unknown) | | | | | [facility] | | | | + + + + +---------+ + + + + | Result panel 532 | + + + + + + +---------+ + + | (unknown) | (no date) | (unknown) | [facility] | (no | (units | (unknown) | | | | | [facility] | value) | unknown) | | | | | [facility] | | | | + + + + +---------+ + + + + | Result panel 533 | + + + + + + +---------+ + + | (unknown) | (no date) | (unknown) | [facility] | (no | (units | (unknown) | | | | | [facility] | value) | unknown) | | | | | [facility] | | | | + + + + +---------+ + + + + | Result panel 534 | + + + + + + +---------+ + + | (unknown) | (no date) | (unknown) | [facility] | (no | (units | (unknown) | | | | | [facility] | value) | unknown) | | | | | [facility] | | | | + + + + +---------+ + + + + | Result panel 535 | + + + + + + +---------+ + + | (unknown) | (no date) | (unknown) | [facility] | (no | (units | (unknown) | | | | | [facility] | value) | unknown) | | [facility] | [facility] | | | | + + + + +---------+ + + + + | Result panel 536 | + + + + + + +---------+ + + | (unknown) | (no date) | (unknown) | [facility] | (no | (units | (unknown) | | | | | [facility] | value) | unknown) | | [facility] | [facility] | | | | + + + + +---------+ + + + + | Result panel 537 | + + + + + + +---------+ + + | (unknown) | (no date) | (unknown) | [facility] | (no | (units | (unknown) | | | | | [facility] | value) | unknown) | [facility] | | [facility] | | | | + + + + +---------+ + + + + | Result panel 538 | + + + + + + +---------+ + + | (unknown) | (no date) | (unknown) | [facility] | (no | (units | (unknown) | | | | | [facility] | value) | unknown) | | | | | [facility] | | | | + + + + +---------+ + + + + | Result panel 539 | + + + + + + +---------+ + + | (unknown) | (no date) | (unknown) | [facility] | (no | (units | (unknown) | | | | | [facility] | value) | unknown) | | | | | [facility] | | | | + + + + +---------+ + + + + | Result panel 540 | + + + + + + +---------+ + + | (unknown) | (no date) | (unknown) | [facility] | (no | (units | (unknown) | | | | | [facility] | value) | unknown) | | | | [facility] | | | | + + + + +---------+ + + + + | Result panel 541 | + + + + + + +---------+ + + | (unknown) | (no date) | (unknown) | [facility] | (no | (units | (unknown) | | | | | [facility] | value) | unknown) | | | | | [facility] | | | | + + + + +---------+ + + + + | Result panel 542 | + + + + + + +---------+ + + | (unknown) | (no date) | (unknown) | [facility] | (no | (units | (unknown) | | | | | [facility] | value) | unknown) | | | | | [facility] | | | | + + + + +---------+ + + + + | Result panel 543 | + + + + + + +---------+ + + | (unknown) | (no date) | (unknown) | [facility] | (no | (units | (unknown) | | | | | [facility] | value) | unknown) | | | | | [facility] | | | | + + + + +---------+ + + + + | Result panel 544 | + + + + + + +---------+ + + | (unknown) | (no date) | (unknown) | [facility] | (no | (units | (unknown) | | | | | [facility] | value) | unknown) | | | | | [facility] | | | | + + + + +---------+ + + + + | Result panel 545 | + + + + + + +---------+ + + | (unknown) | (no date) | (unknown) | [facility] | (no | (units | (unknown) | | | | | [facility] | value) | unknown) | | | | | [facility] | | | | + + + + +---------+ + + + + | Result panel 546 | + + + + + + +---------+ + + | (unknown) | (no date) | (unknown) | [facility] | (no | (units | (unknown) | | | | | [facility] | value) | unknown) | | | | | [facility] | | | | + + + + +---------+ + + + + | Result panel 547 | + + + + + + +---------+ + + | (unknown) | (no date) | (unknown) | [facility] | (no | (units | (unknown) | | | | | [facility] | value) | unknown) | | | | | [facility] | | | | + + + + +---------+ + + + + | Result panel 548 | + + + + + + +---------+ + + | (unknown) | (no date) | (unknown) | [facility] | (no | (units | (unknown) | | | | | [facility] | value) | unknown) | | | | | [facility] | | | | + + + + +---------+ + + + + | Result panel 549 | + + + + + + +---------+ + + | (unknown) | (no date) | (unknown) | [facility] | (no | (units | (unknown) | | | | | [facility] | value) | unknown) | | | | [facility] | | | | + + + + +---------+ + + + + | Result panel 550 | + + + + + + +---------+ + + | (unknown) | (no date) | (unknown) | [facility] | (no | (units | (unknown) | | | | | [facility] | value) | unknown) | | | | [facility] | | | | + + + + +---------+ + + + + | Result panel 551 | + + + + + + +---------+ + + | (unknown) | (no date) | (unknown) | [facility] | (no | (units | (unknown) | | | | | [facility] | value) | unknown) | | | | [facility] | | | | + + + + +---------+ + + + + | Result panel 552 | + + + + + + +---------+ + + | (unknown) | (no date) | (unknown) | [facility] | (no | (units | (unknown) | | | | | [facility] | value) | unknown) | | | | | [facility] | | | | + + + + +---------+ + + + + | Result panel 553 | + + + + + + +---------+ + + | (unknown) | (no date) | (unknown) | [facility] | (no | (units | (unknown) | | | | | [facility] | value) | unknown) | | | | [facility] | | | | + + + + +---------+ + + + + | Result panel 554 | + + + + + + +---------+ + + | (unknown) | (no date) | (unknown) | [facility] | (no | (units | (unknown) | | | | | [facility] | value) | unknown) | | | | [facility] | | | | + + + + +---------+ + + + + | Result panel 555 | + + + + + + +---------+ + + | (unknown) | (no date) | (unknown) | [facility] | (no | (units | (unknown) | | | | | [facility] | value) | unknown) | | | | [facility] | | | | + + + + +---------+ + + + + | Result panel 556 | + + + + + + +---------+ + + | (unknown) | (no date) | (unknown) | [facility] | (no | (units | (unknown) | | | | | [facility] | value) | unknown) | | | | [facility] | | | | + + + + +---------+ + + + + | Result panel 557 | + + + + + + +---------+ + + | (unknown) | (no date) | (unknown) | [facility] | (no | (units | (unknown) | | | | | [facility] | value) | unknown) | [facility] | | [facility] | | | | + + + + +---------+ + + + + | Result panel 558 | + + + + + + +---------+ + + | (unknown) | (no date) | (unknown) | [facility] | (no | (units | (unknown) | | | | | [facility] | value) | unknown) | | | | [facility] | | | | + + + + +---------+ + + + + | Result panel 559 | + + + + + + +---------+ + + | (unknown) | (no date) | (unknown) | [facility] | (no | (units | (unknown) | | | | | [facility] | value) | unknown) | [facility] | | [facility] | | | | + + + + +---------+ + + + + | Result panel 560 | + + + + + + +---------+ + + | (unknown) | (no date) | (unknown) | [facility] | (no | (units | (unknown) | | | | | [facility] | value) | unknown) | | | | | [facility] | | | | + + + + +---------+ + + + + | Result panel 561 | + + + + + + +---------+ + + | (unknown) | (no date) | (unknown) | [facility] | (no | (units | (unknown) | | | | | [facility] | value) | unknown) | [facility] | | [facility] | | | | + + + + +---------+ + + + + | Result panel 562 | + + + + + + +---------+ + + | (unknown) | (no date) | (unknown) | [facility] | (no | (units | (unknown) | | | | | [facility] | value) | unknown) | | | | [facility] | | | | + + + + +---------+ + + + + | Result panel 563 | + + + + + + +---------+ + + | (unknown) | (no date) | (unknown) | [facility] | (no | (units | (unknown) | | | | | [facility] | value) | unknown) | [facility] | | [facility] | | | | + + + + +---------+ + + + + | Result panel 564 | + + + + + + +---------+ + + | (unknown) | (no date) | (unknown) | [facility] | (no | (units | (unknown) | | | | | [facility] | value) | unknown) | | | | | [facility] | | | | + + + + +---------+ + + + + | Result panel 565 | + + + + + + +---------+ + + | (unknown) | (no date) | (unknown) | [facility] | (no | (units | (unknown) | | | | | [facility] | value) | unknown) | | | | | [facility] | | | | + + + + +---------+ + + + + | Result panel 566 | + + + + + + +---------+ + + | (unknown) | (no date) | (unknown) | [facility] | (no | (units | (unknown) | | | | | [facility] | value) | unknown) | [facility] | | [facility] | | | | + + + + +---------+ + + + + | Result panel 567 | + + + + + + +---------+ + + | (unknown) | (no date) | (unknown) | [facility] | (no | (units | (unknown) | | | | | [facility] | value) | unknown) | | | | | [facility] | | | | + + + + +---------+ + + + + | Result panel 568 | + + + + + + +---------+ + + | (unknown) | (no date) | (unknown) | [facility] | (no | (units | (unknown) | | | | | [facility] | value) | unknown) | | [facility] | [facility] | | | | + + + + +---------+ + + + + | Result panel 569 | + + + + + + +---------+ + + | (unknown) | (no date) | (unknown) | [facility] | (no | (units | (unknown) | | | | | [facility] | value) | unknown) | | | | | [facility] | | | | + + + + +---------+ + + + + | Result panel 570 | + + + + + + +---------+ + + | (unknown) | (no date) | (unknown) | [facility] | (no | (units | (unknown) | | | | | [facility] | value) | unknown) | | | | | [facility] | | | | + + + + +---------+ + + + + | Result panel 571 | + + + + + + +---------+ + + | (unknown) | (no date) | (unknown) | [facility] | (no | (units | (unknown) | | | | | [facility] | value) | unknown) | | [facility] | [facility] | | | | + + + + +---------+ + + + + | Result panel 572 | + + + + + + +---------+ + + | (unknown) | (no date) | (unknown) | [facility] | (no | (units | (unknown) | | | | | [facility] | value) | unknown) | | | | | [facility] | | | | + + + + +---------+ + + + + | Result panel 573 | + + + + + + +---------+ + + | (unknown) | (no date) | (unknown) | [facility] | (no | (units | (unknown) | | | | | [facility] | value) | unknown) | | | | | [facility] | | | | + + + + +---------+ + + + + | Result panel 574 | + + + + + + +---------+ + + | (unknown) | (no date) | (unknown) | [facility] | (no | (units | (unknown) | | | | | [facility] | value) | unknown) | | | | | [facility] | | | | + + + + +---------+ + + + + | Result panel 575 | + + + + + + +---------+ + + | (unknown) | (no date) | (unknown) | [facility] | (no | (units | (unknown) | | | | | [facility] | value) | unknown) | | | | | [facility] | | | | + + + + +---------+ + + + + | Result panel 576 | + + + + + + +---------+ + + | (unknown) | (no date) | (unknown) | [facility] | (no | (units | (unknown) | | | | | [facility] | value) | unknown) | | [facility] | | [facility] | | | | + + + + +---------+ + + + + | Result panel 577 | + + + + + + +---------+ + + | (unknown) | (no date) | (unknown) | [facility] | (no | (units | (unknown) | | | | | [facility] | value) | unknown) | | | | | [facility] | | | | + + + + +---------+ + + + + | Result panel 578 | + + + + + + +---------+ + + | (unknown) | (no date) | (unknown) | [facility] | (no | (units | (unknown) | | | | | [facility] | value) | unknown) | | | | | [facility] | | | | + + + + +---------+ + + + + | Result panel 579 | + + + + + + +---------+ + + | (unknown) | (no date) | (unknown) | [facility] | (no | (units | (unknown) | | | | | [facility] | value) | unknown) | | | | | [facility] | | | | + + + + +---------+ + + + + | Result panel 580 | + + + + + + +---------+ + + | (unknown) | (no date) | (unknown) | [facility] | (no | (units | (unknown) | | | | | [facility] | value) | unknown) | | | | | [facility] | | | | + + + + +---------+ + + + + | Result panel 581 | + + + + + + +---------+ + + | (unknown) | (no date) | (unknown) | [facility] | (no | (units | (unknown) | | | | | [facility] | value) | unknown) | | | | | [facility] | | | | + + + + +---------+ + + + + | Result panel 582 | + + + + + + +---------+ + + | (unknown) | (no date) | (unknown) | [facility] | (no | (units | (unknown) | | | | | [facility] | value) | unknown) | | | | | [facility] | | | | + + + + +---------+ + + + + | Result panel 583 | + + + + + + +---------+ + + | (unknown) | (no date) | (unknown) | [facility] | (no | (units | (unknown) | | | | | [facility] | value) | unknown) | | [facility] | [facility] | | | | + + + + +---------+ + + + + | Result panel 584 | + + + + + + +---------+ + + | (unknown) | (no date) | (unknown) | [facility] | (no | (units | (unknown) | | | | | [facility] | value) | unknown) | [facility] | [facility] | | | | + + + + +---------+ + + + + | Result panel 585 | + + + + + + +---------+ + + | (unknown) | (no date) | (unknown) | [facility] | (no | (units | (unknown) | | | | | [facility] | value) | unknown) | | | | | [facility] | | | | + + + + +---------+ + + + + | Result panel 586 | + + + + + + +---------+ + + | (unknown) | (no date) | (unknown) | [facility] | (no | (units | (unknown) | | | | | [facility] | value) | unknown) | | [facility] | | [facility] | | | | + + + + +---------+ + + + + | Result panel 587 | + + + + + + +---------+ + + | (unknown) | (no date) | (unknown) | [facility] | (no | (units | (unknown) | | | | | [facility] | value) | unknown) | | | | | [facility] | | | | + + + + +---------+ + + + + | Result panel 588 | + + + + + + +---------+ + + | (unknown) | (no date) | (unknown) | [facility] | (no | (units | (unknown) | | | | | [facility] | value) | unknown) | | | | | [facility] | | | | + + + + +---------+ + + + + | Result panel 589 | + + + + + + +---------+ + + | (unknown) | (no date) | (unknown) | [facility] | (no | (units | (unknown) | | | | | [facility] | value) | unknown) | | | | | | [facility] | | | | + + + + +---------+ + + + + | Result panel 590 | + + + + + + +---------+ + + | (unknown) | (no date) | (unknown) | [facility] | (no | (units | (unknown) | | | | | [facility] | value) | unknown) | | | | | | [facility] | | | | + + + + +---------+ + + + + | Result panel 591 | + + + + + + +---------+ + + | (unknown) | (no date) | (unknown) | [facility] | (no | (units | (unknown) | | | | | [facility] | value) | unknown) | | | | | | [facility] | | | | + + + + +---------+ + + + + | Result panel 592 | + + + + + + +---------+ + + | (unknown) | (no date) | (unknown) | [facility] | (no | (units | (unknown) | | | | | [facility] | value) | unknown) | | | | | | [facility] | | | | + + + + +---------+ + + + + | Result panel 593 | + + + + + + +---------+ + + | (unknown) | (no date) | (unknown) | [facility] | (no | (units | (unknown) | | | | | [facility] | value) | unknown) | | | | | | [facility] | | | | + + + + +---------+ + + + + | Result panel 594 | + + + + + + +---------+ + + | (unknown) | (no date) | (unknown) | [facility] | (no | (units | (unknown) | | | | | [facility] | value) | unknown) | | | | | | [facility] | | | | + + + + +---------+ + + + + | Result panel 595 | + + + + + + +---------+ + + | (unknown) | (no date) | (unknown) | [facility] | (no | (units | (unknown) | | | | | [facility] | value) | unknown) | | | | | | [facility] | | | | + + + + +---------+ + + + + | Result panel 596 | + + + + + + +---------+ + + | (unknown) | (no date) | (unknown) | [facility] | (no | (units | (unknown) | | | | | [facility] | value) | unknown) | | | | | | [facility] | | | | + + + + +---------+ + + + + | Result panel 597 | + + + + + + +---------+ + + | (unknown) | (no date) | (unknown) | [facility] | (no | (units | (unknown) | | | | [facility] value) | unknown) | | | | [facility] | | | | + + + + +---------+ + + + + | Result panel 598 | + + + + + + +---------+ + + | (unknown) | (no date) | (unknown) | [facility] | (no | (units | (unknown) | | | | | [facility] | value) | unknown) | | | | | [facility] | | | | + + + + +---------+ + + + + | Result panel 599 | + + + + + + +---------+ + + | (unknown) | (no date) | (unknown) | [facility] | (no | (units | (unknown) | | | | | [facility] | value) | unknown) | | | | [facility] | | | | + + + + +---------+ + + + + | Result panel 600 | + + + + + + +---------+ + + | (unknown) | (no date) | (unknown) | [facility] | (no | (units | (unknown) | | | | | [facility] | value) | unknown) | | | | [facility] | | | | + + + + +---------+ + + + + | Result panel 601 | + + + + + + +---------+ + + | (unknown) | (no date) | (unknown) | [facility] | (no | (units | (unknown) | | | | | [facility] | value) | unknown) | | | | [facility] | | | | + + + + +---------+ + + + + | Result panel 602 | + + + + + + +---------+ + + | (unknown) | (no date) | (unknown) | [facility] | (no | (units | (unknown) | | | | | [facility] | value) | unknown) | | | | [facility] | | | | + + + + +---------+ + + + + | Result panel 603 | + + + + + + +---------+ + + | (unknown) | (no date) | (unknown) | [facility] | (no | (units | (unknown) | | | | | [facility] | value) | unknown) | | | | [facility] | | | | + + + + +---------+ + + + + | Result panel 604 | + + + + + + +---------+ + + | (unknown) | (no date) | (unknown) | [facility] | (no | (units | (unknown) | | | | | [facility] | value) | unknown) | | | | [facility] | | | | + + + + +---------+ + + + + | Result panel 605 | + + + + + + +---------+ + + | (unknown) | (no date) | (unknown) | [facility] | (no | (units | (unknown) | | | | | [facility] | value) | unknown) | | | | [facility] | | | | + + + + +---------+ + + + + | Result panel 606 | + + + + + + +---------+ + + | (unknown) | (no date) | (unknown) | [facility] | (no | (units | (unknown) | | | | | [facility] | value) | unknown) | | | [facility] | | | | + + + + +---------+ + + + + | Result panel 607 | + + + + + + +---------+ + + | (unknown) | (no date) | (unknown) | [facility] | (no | (units | (unknown) | | | | | [facility] | value) | unknown) | | | | | [facility] | | | | + + + + +---------+ + + + + | Result panel 608 | + + + + + + +---------+ + + | (unknown) | (no date) | (unknown) | [facility] | (no | (units | (unknown) | | | | | [facility] | value) | unknown) | | [facility] | [facility] | | | | + + + + +---------+ + + + + | Result panel 609 | + + + + + + +---------+ + + | (unknown) | (no date) | (unknown) | [facility] | (no | (units | (unknown) | | | | | [facility] | value) | unknown) | | | | [facility] | | | | + + + + +---------+ + + + + | Result panel 610 | + + + + + + +---------+ + + | (unknown) | (no date) | (unknown) | [facility] | (no | (units | (unknown) | | | | | [facility] | value) | unknown) | | | | | [facility] | | | | + + + + +---------+ + + + + | Result panel 611 | + + + + + + +---------+ + + | (unknown) | (no date) | (unknown) | [facility] | (no | (units | (unknown) | | | | | [facility] | value) | unknown) | [facility] | | | [facility] | | | | + + + + +---------+ + + + + | Result panel 612 | + + + + + + +---------+ + + | (unknown) | (no date) | (unknown) | [facility] | (no | (units | (unknown) | | | | | [facility] | value) | unknown) | | | | | [facility] | | | | + + + + +---------+ + + + + | Result panel 613 | + + + + + + +---------+ + + | (unknown) | (no date) | (unknown) | [facility] | (no | (units | (unknown) | | | | | [facility] | value) | unknown) | | | | | [facility] | | | | + + + + +---------+ + + + + | Result panel 614 | + + + + + + +---------+ + + | (unknown) | (no date) | (unknown) | [facility] | (no | (units | (unknown) | | | | | [facility] | value) | unknown) | | | | | [facility] | | | | + + + + +---------+ + + + + | Result panel 615 | + + + + + + +---------+ + + | (unknown) | (no date) | (unknown) | [facility] | (no | (units | (unknown) | | | | | [facility] | value) | unknown) | | | | [facility] | | | | + + + + +---------+ + + + + | Result panel 616 | + + + + + + +---------+ + + | (unknown) | (no date) | (unknown) | [facility] | (no | (units | (unknown) | | | | | [facility] | value) | unknown) | [facility] | | [facility] | | | | + + + + +---------+ + + + + | Result panel 617 | + + + + + + +---------+ + + | (unknown) | (no date) | (unknown) | [facility] | (no | (units | (unknown) | | | | | [facility] | value) | unknown) | | | | [facility] | | | | + + + + +---------+ + + + + | Result panel 618 | + + + + + + +---------+ + + | (unknown) | (no date) | (unknown) | [facility] | (no | (units | (unknown) | | | | | [facility] | value) | unknown) | | | | | [facility] | | | | + + + + +---------+ + + + + | Result panel 619 | + + + + + + +---------+ + + | (unknown) | (no date) | (unknown) | [facility] | (no | (units | (unknown) | | | | | [facility] | value) | unknown) | | | | | [facility] | | | | + + + + +---------+ + + + + | Result panel 620 | + + + + + + +---------+ + + | (unknown) | (no date) | (unknown) | [facility] | (no | (units | (unknown) | | | | | [facility] | value) | unknown) | | | | | [facility] | | | | + + + + +---------+ + + + + | Result panel 621 | + + + + + + +---------+ + + | (unknown) | (no date) | (unknown) | [facility] | (no | (units | (unknown) | | | | | [facility] | value) | unknown) | | | | | [facility] | | | | + + + + +---------+ + + + + | Result panel 622 | + + + + + + +---------+ + + | (unknown) | (no date) | (unknown) | [facility] | (no | (units | (unknown) | | | | | [facility] | value) | unknown) | | | | | [facility] | | | | + + + + +---------+ + + + + | Result panel 623 | + + + + + + +---------+ + + | (unknown) | (no date) | (unknown) | [facility] | (no | (units | (unknown) | | | | | [facility] | value) | unknown) | | | | | [facility] | | | | + + + + +---------+ + + + + | Result panel 624 | + + + + + + +---------+ + + | (unknown) | (no date) | (unknown) | [facility] | (no | (units | (unknown) | | | | | [facility] | value) | unknown) | | | | | [facility] | | | | + + + + +---------+ + + + + | Result panel 625 | + + + + + + +---------+ + + | (unknown) | (no date) | (unknown) | [facility] | (no | (units | (unknown) | | | | | [facility] | value) | unknown) | | [facility] | [facility] | | | | + + + + +---------+ + + + + | Result panel 626 | + + + + + + +---------+ + + | (unknown) | (no date) | (unknown) | [facility] | (no | (units | (unknown) | | | | | [facility] | value) | unknown) | | | | | [facility] | | | | + + + + +---------+ + + + + | Result panel 627 | + + + + + + +---------+ + + | (unknown) | (no date) | (unknown) | [facility] | (no | (units | (unknown) | | | | | [facility] | value) | unknown) | | | | | [facility] | | | | + + + + +---------+ + + + + | Result panel 628 | + + + + + + +---------+ + + | (unknown) | (no date) | (unknown) | [facility] | (no | (units | (unknown) | | | | | [facility] | value) | unknown) | | | | | [facility] | | | | + + + + +---------+ + + + + | Result panel 629 | + + + + + + +---------+ + + | (unknown) | (no date) | (unknown) | [facility] | (no | (units | (unknown) | | | | | [facility] | value) | unknown) | | | | | [facility] | | | | + + + + +---------+ + + + + | Result panel 630 | + + + + + + +---------+ + + | (unknown) | (no date) | (unknown) | [facility] | (no | (units | (unknown) | | | | | [facility] | value) | unknown) | [facility] | | | [facility] | | | | + + + + +---------+ + + + + | Result panel 631 | + + + + + + +---------+ + + | (unknown) | (no date) | (unknown) | [facility] | (no | (units | (unknown) | | | | | [facility] | value) | unknown) | | | | | [facility] | | | | + + + + +---------+ + + + + | Result panel 632 | + + + + + + +---------+ + + | (unknown) | (no date) | (unknown) | [facility] | (no | (units | (unknown) | | | | | [facility] | value) | unknown) | | | | | [facility] | | | | + + + + +---------+ + + + + | Result panel 633 | + + + + + + +---------+ + + | (unknown) | (no date) | (unknown) | [facility] | (no | (units | (unknown) | | | | | [facility] | value) | unknown) | | | | | [facility] | | | | + + + + +---------+ + + + + | Result panel 634 | + + + + + + +---------+ + + | (unknown) | (no date) | (unknown) | [facility] | (no | (units | (unknown) | | | | | [facility] | value) | unknown) | | | | | [facility] | | | | + + + + +---------+ + + + + | Result panel 635 | + + + + + + +---------+ + + | (unknown) | (no date) | (unknown) | [facility] | (no | (units | (unknown) | | | | | [facility] | value) | unknown) | | | | | [facility] | | | | + + + + +---------+ + + + + | Result panel 636 | + + + + + + +---------+ + + | (unknown) | (no date) | (unknown) | [facility] | (no | (units | (unknown) | | | | | [facility] | value) | unknown) | | | | | [facility] | | | | + + + + +---------+ + + + + | Result panel 637 | + + + + + + +---------+ + + | (unknown) | (no date) | (unknown) | [facility] | (no | (units | (unknown) | | | | | [facility] | value) | unknown) | | | | | [facility] | | | | + + + + +---------+ + + + + | Result panel 638 | + + + + + + +---------+ + + | (unknown) | (no date) | (unknown) | [facility] | (no | (units | (unknown) | | | | | [facility] | value) | unknown) | | | | | [facility] | | | | + + + + +---------+ + + + + | Result panel 639 | + + + + + + +---------+ + + | (unknown) | (no date) | (unknown) | [facility] | (no | (units | (unknown) | | | | | [facility] | value) | unknown) | | | | | [facility] | | | | + + + + +---------+ + + + + | Result panel 640 | + + + + + + +---------+ + + | (unknown) | (no date) | (unknown) | [facility] | (no | (units | (unknown) | | | | | [facility] | value) | unknown) | | | | | [facility] | | | | + + + + +---------+ + + + + | Result panel 641 | + + + + + + +---------+ + + | (unknown) | (no date) | (unknown) | [facility] | (no | (units | (unknown) | | | | | [facility] | value) | unknown) | | | | | [facility] | | | | + + + + +---------+ + + + + | Result panel 642 | + + + + + + +---------+ + + | (unknown) | (no date) | (unknown) | [facility] | (no | (units | (unknown) | | | | | [facility] | value) | unknown) | | | | | [facility] | | | | + + + + +---------+ + + + + | Result panel 643 | + + + + + + +---------+ + + | (unknown) | (no date) | (unknown) | [facility] | (no | (units | (unknown) | | | | | [facility] | value) | unknown) | | | | | [facility] | | | | + + + + +---------+ + + + + | Result panel 644 | + + + + + + +---------+ + + | (unknown) | (no date) | (unknown) | [facility] | (no | (units | (unknown) | | | | | [facility] | value) | unknown) | | | | | [facility] | | | | + + + + +---------+ + + + + | Result panel 645 | + + + + + + +---------+ + + | (unknown) | (no date) | (unknown) | [facility] | (no | (units | (unknown) | | | | | [facility] | value) | unknown) | | | | | [facility] | | | | + + + + +---------+ + + + + | Result panel 646 | + + + + + + +---------+ + + | (unknown) | (no date) | (unknown) | [facility] | (no | (units | (unknown) | | | | | [facility] | value) | unknown) | | | | [facility] | | | | + + + + +---------+ + + + + | Result panel 647 | + + + + + + +---------+ + + | (unknown) | (no date) | (unknown) | [facility] | (no | (units | (unknown) | | | | | [facility] | value) | unknown) | | | | | [facility] | | | | + + + + +---------+ + + + + | Result panel 648 | + + + + + + +---------+ + + | (unknown) | (no date) | (unknown) | [facility] | (no | (units | (unknown) | | | | | [facility] | value) | unknown) | | | | | [facility] | | | | + + + + +---------+ + + + + | Result panel 649 | + + + + + + +---------+ + + | (unknown) | (no date) | (unknown) | [facility] | (no | (units | (unknown) | | | | | [facility] | value) | unknown) | | | | | [facility] | | | | + + + + +---------+ + + + + | Result panel 650 | + + + + + + +---------+ + + | (unknown) | (no date) | (unknown) | [facility] | (no | (units | (unknown) | | | | | [facility] | value) | unknown) | | | | | [facility] | | | | + + + + +---------+ + + + + | Result panel 651 | + + + + + + +---------+ + + | (unknown) | (no date) | (unknown) | [facility] | (no | (units | (unknown) | | | | | [facility] | value) | unknown) | | | | | [facility] | | | | + + + + +---------+ + + + + | Result panel 652 | + + + + + + +---------+ + + | (unknown) | (no date) | (unknown) | [facility] | (no | (units | (unknown) | | | | | [facility] | value) | unknown) | | | | [facility] | | | | + + + + +---------+ + + + + | Result panel 653 | + + + + + + +---------+ + + | (unknown) | (no date) | (unknown) | [facility] | (no | (units | (unknown) | | | | | [facility] | value) | unknown) | | | | | [facility] | | | | + + + + +---------+ + + + + | Result panel 654 | + + + + + + +---------+ + + | (unknown) | (no date) | (unknown) | [facility] | (no | (units | (unknown) | | | | | [facility] | value) | unknown) | | | | | [facility] | | | | + + + + +---------+ + + + + | Result panel 655 | + + + + + + +---------+ + + | (unknown) | (no date) | (unknown) | [facility] | (no | (units | (unknown) | | | | | [facility] | value) | unknown) | | | | | [facility] | | | | + + + + +---------+ + + + + | Result panel 656 | + + + + + + +---------+ + + | (unknown) | (no date) | (unknown) | [facility] | (no | (units | (unknown) | | | | | [facility] | value) | unknown) | | | | | [facility] | | | | + + + + +---------+ + + + + | Result panel 657 | + + + + + + +---------+ + + | (unknown) | (no date) | (unknown) | [facility] | (no | (units | (unknown) | | | | | [facility] | value) | unknown) | | | | | [facility] | | | | + + + + +---------+ + + + + | Result panel 658 | + + + + + + +---------+ + + | (unknown) | (no date) | (unknown) | [facility] | (no | (units | (unknown) | | | | | [facility] | value) | unknown) | | | | | [facility] | | | | + + + + +---------+ + + + + | Result panel 659 | + + + + + + +---------+ + + | (unknown) | (no date) | (unknown) | [facility] | (no | (units | (unknown) | | | | | [facility] | value) | unknown) | [facility] | | | [facility] | | | | + + + + +---------+ + + + + | Result panel 660 | + + + + + + +---------+ + + | (unknown) | (no date) | (unknown) | [facility] | (no | (units | (unknown) | | | | | [facility] | value) | unknown) | | | | | [facility] | | | | + + + + +---------+ + + + + | Result panel 661 | + + + + + + +---------+ + + | (unknown) | (no date) | (unknown) | [facility] | (no | (units | (unknown) | | | | | [facility] | value) | unknown) | | | | | [facility] | | | | + + + + +---------+ + + + + | Result panel 662 | + + + + + + +---------+ + + | (unknown) | (no date) | (unknown) | [facility] | (no | (units | (unknown) | | | | | [facility] | value) | unknown) | | | | | [facility] | | | | + + + + +---------+ + + + + | Result panel 663 | + + + + + + +---------+ + + | (unknown) | (no date) | (unknown) | [facility] | (no | (units | (unknown) | | | | | [facility] | value) | unknown) | | | | | [facility] | | | | + + + + +---------+ + + + + | Result panel 664 | + + + + + + +---------+ + + | (unknown) | (no date) | (unknown) | [facility] | (no | (units | (unknown) | | | | | [facility] | value) | unknown) | | | | | [facility] | | | | + + + + +---------+ + + + + | Result panel 665 | + + + + + + +---------+ + + | (unknown) | (no date) | (unknown) | [facility] | (no | (units | (unknown) | | | | | [facility] | value) | unknown) | | | | | [facility] | | | | + + + + +---------+ + + + + | Result panel 666 | + + + + + + +---------+ + + | (unknown) | (no date) | (unknown) | [facility] | (no | (units | (unknown) | | | | | [facility] | value) | unknown) | [facility] | | [facility] | | | | + + + + +---------+ + + + + | Result panel 667 | + + + + + + +---------+ + + | (unknown) | (no date) | (unknown) | [facility] | (no | (units | (unknown) | | | | | [facility] | value) | unknown) | | | | | [facility] | | | | + + + + +---------+ + + + + | Result panel 668 | + + + + + + +---------+ + + | (unknown) | (no date) | (unknown) | [facility] | (no | (units | (unknown) | | | | | [facility] | value) | unknown) | | | | | [facility] | | | | + + + + +---------+ + + + + | Result panel 669 | + + + + + + +---------+ + + | (unknown) | (no date) | (unknown) | [facility] | (no | (units | (unknown) | | | | | [facility] | value) | unknown) | | | | | [facility] | | | | + + + + +---------+ + + + + | Result panel 670 | + + + + + + +---------+ + + | (unknown) | (no date) | (unknown) | [facility] | (no | (units | (unknown) | | | | | [facility] | value) | unknown) | | | | | [facility] | | | | + + + + +---------+ + + + + | Result panel 671 | + + + + + + +---------+ + + | (unknown) | (no date) | (unknown) | [facility] | (no | (units | (unknown) | | | | | [facility] | value) | unknown) | | | | [facility] | | | | + + + + +---------+ + + + + | Result panel 672 | + + + + + + +---------+ + + | (unknown) | (no date) | (unknown) | [facility] | (no | (units | (unknown) | | | | | [facility] | value) | unknown) | [facility] | | [facility] | | | | + + + + +---------+ + + + + | Result panel 673 | + + + + + + +---------+ + + | (unknown) | (no date) | (unknown) | [facility] | (no | (units | (unknown) | | | | | [facility] | value) | unknown) | | | | | [facility] | | | | + + + + +---------+ + + + + | Result panel 674 | + + + + + + +---------+ + + | (unknown) | (no date) | (unknown) | [facility] | (no | (units | (unknown) | | | | | [facility] | value) | unknown) | | | | | [facility] | | | | + + + + +---------+ + + + + | Result panel 675 | + + + + + + +---------+ + + | (unknown) | (no date) | (unknown) | [facility] | (no | (units | (unknown) | | | | | [facility] | value) | unknown) | | | | | [facility] | | | | + + + + +---------+ + + + + | Result panel 676 | + + + + + + +---------+ + + | (unknown) | (no date) | (unknown) | [facility] | (no | (units | (unknown) | | | | | [facility] | value) | unknown) | | | | | [facility] | | | | + + + + +---------+ + + + + | Result panel 677 | + + + + + + +---------+ + + | (unknown) | (no date) | (unknown) | [facility] | (no | (units | (unknown) | | | | | [facility] | value) | unknown) | | [facility] | [facility] | | | | + + + + +---------+ + + + + | Result panel 678 | + + + + + + +---------+ + + | (unknown) | (no date) | (unknown) | [facility] | (no | (units | (unknown) | | | | | [facility] | value) | unknown) | | | | | [facility] | | | | + + + + +---------+ + + + + | Result panel 679 | + + + + + + +---------+ + + | (unknown) | (no date) | (unknown) | [facility] | (no | (units | (unknown) | | | | | [facility] | value) | unknown) | | | | [facility] | | | | + + + + +---------+ + + + + | Result panel 680 | + + + + + + +---------+ + + | (unknown) | (no date) | (unknown) | [facility] | (no | (units | (unknown) | | | | | [facility] | value) | unknown) | | | | | [facility] | | | | + + + + +---------+ + + + + | Result panel 681 | + + + + + + +---------+ + + | (unknown) | (no date) | (unknown) | [facility] | (no | (units | (unknown) | | | | | [facility] | value) | unknown) | | | | | [facility] | | | | + + + + +---------+ + + + + | Result panel 682 | + + + + + + +---------+ + + | (unknown) | (no date) | (unknown) | [facility] | (no | (units | (unknown) | | | | | [facility] | value) | unknown) | | | | | [facility] | | | | + + + + +---------+ + + + + | Result panel 683 | + + + + + + +---------+ + + | (unknown) | (no date) | (unknown) | [facility] | (no | (units | (unknown) | | | | | [facility] | value) | unknown) | | | | | [facility] | | | | + + + + +---------+ + + + + | Result panel 684 | + + + + + + +---------+ + + | (unknown) | (no date) | (unknown) | [facility] | (no | (units | (unknown) | | | | | [facility] | value) | unknown) | | | | | [facility] | | | | + + + + +---------+ + + + + | Result panel 685 | + + + + + + +---------+ + + | (unknown) | (no date) | (unknown) | [facility] | (no | (units | (unknown) | | | | | [facility] | value) | unknown) | | | | | [facility] | | | | + + + + +---------+ + + + + | Result panel 686 | + + + + + + +---------+ + + | (unknown) | (no date) | (unknown) | [facility] | (no | (units | (unknown) | | | | | [facility] | value) | unknown) | [facility] | | | [facility] | | | | + + + + +---------+ + + + + | Result panel 687 | + + + + + + +---------+ + + | (unknown) | (no date) | (unknown) | [facility] | (no | (units | (unknown) | | | | | [facility] | value) | unknown) | | | | | [facility] | | | | + + + + +---------+ + + + + | Result panel 688 | + + + + + + +---------+ + + | (unknown) | (no date) | (unknown) | [facility] | (no | (units | (unknown) | | | | | [facility] | value) | unknown) | | | | | [facility] | | | | + + + + +---------+ + + + + | Result panel 689 | + + + + + + +---------+ + + | (unknown) | (no date) | (unknown) | [facility] | (no | (units | (unknown) | | | | | [facility] | value) | unknown) | | | | | [facility] | | | | + + + + +---------+ + + + + | Result panel 690 | + + + + + + +---------+ + + | (unknown) | (no date) | (unknown) | [facility] | (no | (units | (unknown) | | | | | [facility] | value) | unknown) | | | | | [facility] | | | | + + + + +---------+ + + + + | Result panel 691 | + + + + + + +---------+ + + | (unknown) | (no date) | (unknown) | [facility] | (no | (units | (unknown) | | | | | [facility] | value) | unknown) | [facility] | | | [facility] | | | | + + + + +---------+ + + + + | Result panel 692 | + + + + + + +---------+ + + | (unknown) | (no date) | (unknown) | [facility] | (no | (units | (unknown) | | | | | [facility] | value) | unknown) | | | | | [facility] | | | | + + + + +---------+ + + + + | Result panel 693 | + + + + + + +---------+ + + | (unknown) | (no date) | (unknown) | [facility] | (no | (units | (unknown) | | | | | [facility] | value) | unknown) | | | | | [facility] | | | | + + + + +---------+ + + + + | Result panel 694 | + + + + + + +---------+ + + | (unknown) | (no date) | (unknown) | [facility] | (no | (units | (unknown) | | | | | [facility] | value) | unknown) | [facility] | | | [facility] | | | | + + + + +---------+ + + + + | Result panel 695 | + + + + + + +---------+ + + | (unknown) | (no date) | (unknown) | [facility] | (no | (units | (unknown) | | | | | [facility] | value) | unknown) | | | | | [facility] | | | | + + + + +---------+ + + + + | Result panel 696 | + + + + + + +---------+ + + | (unknown) | (no date) | (unknown) | [facility] | (no | (units | (unknown) | | | | | [facility] | value) | unknown) | [facility] | [facility] | | | | + + + + +---------+ + + + + | Result panel 697 | + + + + + + +---------+ + + | (unknown) | (no date) | (unknown) | [facility] | (no | (units | (unknown) | | | | | [facility] | value) | unknown) | | | | [facility] | | | | + + + + +---------+ + + + + | Result panel 698 | + + + + + + +---------+ + + | (unknown) | (no date) | (unknown) | [facility] | (no | (units | (unknown) | | | | | [facility] | value) | unknown) | [facility] | [facility] | | | | + + + + +---------+ + + + + | Result panel 699 | + + + + + + +---------+ + + | (unknown) | (no date) | (unknown) | [facility] | (no | (units | (unknown) | | | | | [facility] | value) | unknown) | | | | [facility] | | | | + + + + +---------+ + + + + | Result panel 700 | + + + + + + +---------+ + + | (unknown) | (no date) | (unknown) | [facility] | (no | (units | (unknown) | | | | | [facility] | value) | unknown) | | | | | | [facility] | | | | + + + + +---------+ + + + + | Result panel 701 | + + + + + + +---------+ + + | (unknown) | (no date) | (unknown) | [facility] | (no | (units | (unknown) | | | | | [facility] | value) | unknown) | | | | | | [facility] | | | | + + + + +---------+ + + + + | Result panel 702 | + + + + + + +---------+ + + | (unknown) | (no date) | (unknown) | [facility] | (no | (units | (unknown) | | | | | [facility] | value) | unknown) | | | | | [facility] | | | | + + + + +---------+ + + + + | Result panel 703 | + + + + + + +---------+ + + | (unknown) | (no date) | (unknown) | [facility] | (no | (units | (unknown) | | | | | [facility] | value) | unknown) | | | | | [facility] | | | | + + + + +---------+ + + + + | Result panel 704 | + + + + + + +---------+ + + | (unknown) | (no date) | (unknown) | [facility] | (no | (units | (unknown) | | | | | [facility] | value) | unknown) | | | | | | [facility] | | | | + + + + +---------+ + + + + | Result panel 705 | + + + + + + +---------+ + + | (unknown) | (no date) | (unknown) | [facility] | (no | (units | (unknown) | | | | | [facility] | value) | unknown) | | | | | [facility] | | | | + + + + +---------+ + + + + | Result panel 706 | + + + + + + +---------+ + + | (unknown) | (no date) | (unknown) | [facility] | (no | (units | (unknown) | | | | | [facility] | value) | unknown) | | | | | [facility] | | | | + + + + +---------+ + + + + | Result panel 707 | + + + + + + +---------+ + + | (unknown) | (no date) | (unknown) | [facility] | (no | (units | (unknown) | | | | | [facility] | value) | unknown) | | | | | | [facility] | | | | + + + + +---------+ + + + + | Result panel 708 | + + + + + + +---------+ + + | (unknown) | (no date) | (unknown) | [facility] | (no | (units | (unknown) | | | | | [facility] value) | unknown) | | | | | [facility] | | | | + + + + +---------+ + + + + | Result panel 709 | + + + + + + +---------+ + + | (unknown) | (no date) | (unknown) | [facility] | (no | (units | (unknown) | | | | | [facility] | value) | unknown) | | | [facility] | | | | + + + + +---------+ + + + + | Result panel 710 | + + + + + + +---------+ + + | (unknown) | (no date) | (unknown) | [facility] | (no | (units | (unknown) | | | | | [facility] value) | unknown) | | | [facility] | | | | + + + + +---------+ + + + + | Result panel 711 | + + + + + + +---------+ + + | (unknown) | (no date) | (unknown) | [facility] | (no | (units | (unknown) | | | | | [facility] | value) | unknown) | | | [facility] | | | | + + + + +---------+ + + + + | Result panel 712 | + + + + + + +---------+ + + | (unknown) | (no date) | (unknown) | [facility] | (no | (units | (unknown) | | | | | [facility] | value) | unknown) | | | [facility] | | | | + + + + +---------+ + + + + | Result panel 713 | + + + + + + +---------+ + + | (unknown) | (no date) | (unknown) | [facility] | (no | (units | (unknown) | | | | | [facility] | value) | unknown) | | | [facility] | | | | + + + + +---------+ + + + + | Result panel 714 | + + + + + + +---------+ + + | (unknown) | (no date) | (unknown) | [facility] | (no | (units | (unknown) | | | | | [facility] | value) | unknown) | | | [facility] | | | | + + + + +---------+ + + + + | Result panel 715 | + + + + + + +---------+ + + | (unknown) | (no date) | (unknown) | [facility] | (no | (units | (unknown) | | | | | [facility] | value) | unknown) | | | [facility] | | | | + + + + +---------+ + + + + | Result panel 716 | + + + + + + +---------+ + + | (unknown) | (no date) | (unknown) | [facility] | (no | (units | (unknown) | | | | | [facility] | value) | unknown) | | | [facility] | | | | + + + + +---------+ + + + + | Result panel 717 | + + + + + + +---------+ + + | (unknown) | (no date) | (unknown) | [facility] | (no | (units | (unknown) | | | | | [facility] value) | unknown) | | | [facility] | | | | + + + + +---------+ + + + + | Result panel 718 | + + + + + + +---------+ + + | (unknown) | (no date) | (unknown) | [facility] | (no | (units | (unknown) | | | | | [facility] | value) | unknown) | | | [facility] | | | | + + + + +---------+ + + + + | Result panel 719 | + + + + + + +---------+ + + | (unknown) | (no date) | (unknown) | [facility] | (no | (units | (unknown) | | | | | [facility] value) | unknown) | | | [facility] | | | | + + + + +---------+ + + + + | Result panel 720 | + + + + + + +---------+ + + | (unknown) | (no date) | (unknown) | [facility] | (no | (units | (unknown) | | | | | [facility] | value) | unknown) | [facility] | | | | + + + + +---------+ + + + + | Result panel 721 | + + + + + + +---------+ + + | (unknown) | (no date) | (unknown) | [facility] | (no | (units | (unknown) | | | | | [facility] | value) | unknown) | | | [facility] | | | | + + + + +---------+ + + + + | Result panel 722 | + + + + + + +---------+ + + | (unknown) | (no date) | (unknown) | [facility] | (no | (units | (unknown) | | | | | [facility] | value) | unknown) | | | | [facility] | | | | + + + + +---------+ + + + + | Result panel 723 | + + + + + + +---------+ + + | (unknown) | (no date) | (unknown) | [facility] | (no | (units | (unknown) | | | | | [facility] | value) | unknown) | | [facility] | | | | + + + + +---------+ + + + + | Result panel 724 | + + + + + + +---------+ + + | (unknown) | (no date) | (unknown) | [facility] | (no | (units | (unknown) | | | | | [facility] | value) | unknown) | | [facility] | [facility] | | | | + + + + +---------+ + + + + | Result panel 725 | + + + + + + +---------+ + + | (unknown) | (no date) | (unknown) | [facility] | (no | (units | (unknown) | | | | | [facility] | value) | unknown) | | | [facility] | | | | + + + + +---------+ + + + + | Result panel 726 | + + + + + + +---------+ + + | (unknown) | (no date) | (unknown) | [facility] | (no | (units | (unknown) | | | | | [facility] | value) | unknown) | | | [facility] | | | | + + + + +---------+ + + + + | Result panel 727 | + + + + + + +---------+ + + | (unknown) | (no date) | (unknown) | [facility] | (no | (units | (unknown) | | | | | [facility] | value) | unknown) | | | [facility] | | | | + + + + +---------+ + + + + | Result panel 728 | + + + + + + +---------+ + + | (unknown) | (no date) | (unknown) | [facility] | (no | (units | (unknown) | | | | | [facility] | value) | unknown) | | | | [facility] | | | | + + + + +---------+ + + + + | Result panel 729 | + + + + + + +---------+ + + | (unknown) | (no date) | (unknown) | [facility] | (no | (units | (unknown) | | | | | [facility] | value) | unknown) | | | | [facility] | | | | + + + + +---------+ + + + + | Result panel 730 | + + + + + + +---------+ + + | (unknown) | (no date) | (unknown) | [facility] | (no | (units | (unknown) | | | | | [facility] | value) | unknown) | | | | [facility] | | | | + + + + +---------+ + + + + | Result panel 731 | + + + + + + +---------+ + + | (unknown) | (no date) | (unknown) | [facility] | (no | (units | (unknown) | | | | | [facility] | value) | unknown) | | | | [facility] | | | | + + + + +---------+ + + + + | Result panel 732 | + + + + + + +---------+ + + | (unknown) | (no date) | (unknown) | [facility] | (no | (units | (unknown) | | | | | [facility] | value) | unknown) | | | | [facility] | | | | + + + + +---------+ + + + + | Result panel 733 | + + + + + + +---------+ + + | (unknown) | (no date) | (unknown) | [facility] | (no | (units | (unknown) | | | | | [facility] | value) | unknown) | | | | [facility] | | | | + + + + +---------+ + + + + | Result panel 734 | + + + + + + +---------+ + + | (unknown) | (no date) | (unknown) | [facility] | (no | (units | (unknown) | | | | | [facility] | value) | unknown) | | | | [facility] | | | | + + + + +---------+ + + + + | Result panel 735 | + + + + + + +---------+ + + | (unknown) | (no date) | (unknown) | [facility] | (no | (units | (unknown) | | | | | [facility] | value) | unknown) | | [facility] | | | | + + + + +---------+ + + + + | Result panel 736 | + + + + + + +---------+ + + | (unknown) | (no date) | (unknown) | [facility] | (no | (units | (unknown) | | | | | [facility] | value) | unknown) | | | | [facility] | | | | + + + + +---------+ + + + + | Result panel 737 | + + + + + + +---------+ + + | (unknown) | (no date) | (unknown) | [facility] | (no | (units | (unknown) | | | | | [facility] | value) | unknown) | | | | [facility] | | | | + + + + +---------+ + + + + | Result panel 738 | + + + + + + +---------+ + + | (unknown) | (no date) | (unknown) | [facility] | (no | (units | (unknown) | | | | | [facility] | value) | unknown) | | | | [facility] | | | | + + + + +---------+ + + + + | Result panel 739 | + + + + + + +---------+ + + | (unknown) | (no date) | (unknown) | [facility] | (no | (units | (unknown) | | | | | [facility] | value) | unknown) | | [facility] | [facility] | | | | + + + + +---------+ + + + + | Result panel 740 | + + + + + + +---------+ + + | (unknown) | (no date) | (unknown) | [facility] | (no | (units | (unknown) | | | | | [facility] | value) | unknown) | | | | | [facility] | | | | + + + + +---------+ + + + + | Result panel 741 | + + + + + + +---------+ + + | (unknown) | (no date) | (unknown) | [facility] | (no | (units | (unknown) | | | | | [facility] | value) | unknown) | | [facility] | [facility] | | | | + + + + +---------+ + + + + | Result panel 742 | + + + + + + +---------+ + + | (unknown) | (no date) | (unknown) | [facility] | (no | (units | (unknown) | | | | | [facility] | value) | unknown) | | | | [facility] | | | | + + + + +---------+ + + + + | Result panel 743 | + + + + + + +---------+ + + | (unknown) | (no date) | (unknown) | [facility] | (no | (units | (unknown) | | | | | [facility] | value) | unknown) | | | | | [facility] | | | | + + + + +---------+ + + + + | Result panel 744 | + + + + + + +---------+ + + | (unknown) | (no date) | (unknown) | [facility] | (no | (units | (unknown) | | | | | [facility] | value) | unknown) | [facility] | | [facility] | | | | + + + + +---------+ + + + + | Result panel 745 | + + + + + + +---------+ + + | (unknown) | (no date) | (unknown) | [facility] | (no | (units | (unknown) | | | | | [facility] | value) | unknown) | | | | [facility] | | | | + + + + +---------+ + + + + | Result panel 746 | + + + + + + +---------+ + + | (unknown) | (no date) | (unknown) | [facility] | (no | (units | (unknown) | | | | | [facility] | value) | unknown) | | | | [facility] | | | | + + + + +---------+ + + + + | Result panel 747 | + + + + + + +---------+ + + | (unknown) | (no date) | (unknown) | [facility] | (no | (units | (unknown) | | | | | [facility] | value) | unknown) | | [facility] | | | | + + + + +---------+ + + + + | Result panel 748 | + + + + + + +---------+ + + | (unknown) | (no date) | (unknown) | [facility] | (no | (units | (unknown) | | | | | [facility] | value) | unknown) | | | | [facility] | | | | + + + + +---------+ + + + + | Result panel 749 | + + + + + + +---------+ + + | (unknown) | (no date) | (unknown) | [facility] | (no | (units | (unknown) | | | | | [facility] | value) | unknown) | [facility] | | [facility] | | | | + + + + +---------+ + + + + | Result panel 750 | + + + + + + +---------+ + + | (unknown) | (no date) | (unknown) | [facility] | (no | (units | (unknown) | | | | | [facility] | value) | unknown) | | | | [facility] | | | | + + + + +---------+ + + + + | Result panel 751 | + + + + + + +---------+ + + | (unknown) | (no date) | (unknown) | [facility] | (no | (units | (unknown) | | | | | [facility] | value) | unknown) | | | | [facility] | | | | + + + + +---------+ + + + + | Result panel 752 | + + + + + + +---------+ + + | (unknown) | (no date) | (unknown) | [facility] | (no | (units | (unknown) | | | | | [facility] | value) | unknown) | | | | | [facility] | | | | + + + + +---------+ + + + + | Result panel 753 | + + + + + + +---------+ + + | (unknown) | (no date) | (unknown) | [facility] | (no | (units | (unknown) | | | | | [facility] | value) | unknown) | | [facility] | [facility] | | | | + + + + +---------+ + + + + | Result panel 754 | + + + + + + +---------+ + + | (unknown) | (no date) | (unknown) | [facility] | (no | (units | (unknown) | | | | | [facility] | value) | unknown) | | | | [facility] | | | | + + + + +---------+ + + + + | Result panel 755 | + + + + + + +---------+ + + | (unknown) | (no date) | (unknown) | [facility] | (no | (units | (unknown) | | | | | [facility] | value) | unknown) | | | | [facility] | | | | + + + + +---------+ + + + + | Result panel 756 | + + + + + + +---------+ + + | (unknown) | (no date) | (unknown) | [facility] | (no | (units | (unknown) | | | | | [facility] | value) | unknown) | [facility] | | [facility] | | | | + + + + +---------+ + + + + | Result panel 757 | + + + + + + +---------+ + + | (unknown) | (no date) | (unknown) | [facility] | (no | (units | (unknown) | | | | | [facility] | value) | unknown) | | [facility] | [facility] | | | | + + + + +---------+ + + + + | Result panel 758 | + + + + + + +---------+ + + | (unknown) | (no date) | (unknown) | [facility] | (no | (units | (unknown) | | | | | [facility] | value) | unknown) | | | | [facility] | | | | + + + + +---------+ + + + + | Result panel 759 | + + + + + + +---------+ + + | (unknown) | (no date) | (unknown) | [facility] | (no | (units | (unknown) | | | | | [facility] | value) | unknown) | | | | [facility] | | | | + + + + +---------+ + + + + | Result panel 760 | + + + + + + +---------+ + + | (unknown) | (no date) | (unknown) | [facility] | (no | (units | (unknown) | | | | | [facility] | value) | unknown) | | | | [facility] | | | | + + + + +---------+ + + + + | Result panel 761 | + + + + + + +---------+ + + | (unknown) | (no date) | (unknown) | [facility] | (no | (units | (unknown) | | | | | [facility] | value) | unknown) | | | | [facility] | | | | + + + + +---------+ + + + + | Result panel 762 | + + + + + + +---------+ + + | (unknown) | (no date) | (unknown) | [facility] | (no | (units | (unknown) | | | | | [facility] | value) | unknown) | | | | [facility] | | | | + + + + +---------+ + + + + | Result panel 763 | + + + + + + +---------+ + + | (unknown) | (no date) | (unknown) | [facility] | (no | (units | (unknown) | | | | | [facility] | value) | unknown) | | | | [facility] | | | | + + + + +---------+ + + + + | Result panel 764 | + + + + + + +---------+ + + | (unknown) | (no date) | (unknown) | [facility] | (no | (units | (unknown) | | | | | [facility] | value) | unknown) | | | | [facility] | | | | + + + + +---------+ + + + + | Result panel 765 | + + + + + + +---------+ + + | (unknown) | (no date) | (unknown) | [facility] | (no | (units | (unknown) | | | | | [facility] | value) | unknown) | | | | [facility] | | | | + + + + +---------+ + + + + | Result panel 766 | + + + + + + +---------+ + + | (unknown) | (no date) | (unknown) | [facility] | (no | (units | (unknown) | | | | | [facility] | value) | unknown) | | | | [facility] | | | | + + + + +---------+ + + + + | Result panel 767 | + + + + + + +---------+ + + | (unknown) | (no date) | (unknown) | [facility] | (no | (units | (unknown) | | | | | [facility] | value) | unknown) | | | | [facility] | | | | + + + + +---------+ + + + + | Result panel 768 | + + + + + + +---------+ + + | (unknown) | (no date) | (unknown) | [facility] | (no | (units | (unknown) | | | | | [facility] | value) | unknown) | | | | [facility] | | | | + + + + +---------+ + + + + | Result panel 769 | + + + + + + +---------+ + + | (unknown) | (no date) | (unknown) | [facility] | (no | (units | (unknown) | | | | | [facility] | value) | unknown) | [facility] | [facility] | | | | + + + + +---------+ + + + + | Result panel 770 | + + + + + + +---------+ + + | (unknown) | (no date) | (unknown) | [facility] | (no | (units | (unknown) | | | | | [facility] | value) | unknown) | | | | [facility] | | | | + + + + +---------+ + + + + | Result panel 771 | + + + + + + +---------+ + + | (unknown) | (no date) | (unknown) | [facility] | (no | (units | (unknown) | | | | | [facility] | value) | unknown) | | | | [facility] | | | | + + + + +---------+ + + + + | Result panel 772 | + + + + + + +---------+ + + | (unknown) | (no date) | (unknown) | [facility] | (no | (units | (unknown) | | | | | [facility] | value) | unknown) | | | | [facility] | | | | + + + + +---------+ + + + + | Result panel 773 | + + + + + + +---------+ + + | (unknown) | (no date) | (unknown) | [facility] | (no | (units | (unknown) | | | | | [facility] | value) | unknown) | | | | [facility] | | | | + + + + +---------+ + + + + | Result panel 774 | + + + + + + +---------+ + + | (unknown) | (no date) | (unknown) | [facility] | (no | (units | (unknown) | | | | | [facility] | value) | unknown) | | | | [facility] | | | | + + + + +---------+ + + + + | Result panel 775 | + + + + + + +---------+ + + | (unknown) | (no date) | (unknown) | [facility] | (no | (units | (unknown) | | | | | [facility] | value) | unknown) | | | | [facility] | | | | + + + + +---------+ + + + + | Result panel 776 | + + + + + + +---------+ + + | (unknown) | (no date) | (unknown) | [facility] | (no | (units | (unknown) | | | | | [facility] | value) | unknown) | | | | [facility] | | | | + + + + +---------+ + + + + | Result panel 777 | + + + + + + +---------+ + + | (unknown) | (no date) | (unknown) | [facility] | (no | (units | (unknown) | | | | | [facility] | value) | unknown) | | | | [facility] | | | | + + + + +---------+ + + + + | Result panel 778 | + + + + + + +---------+ + + | (unknown) | (no date) | (unknown) | [facility] | (no | (units | (unknown) | | | | | [facility] | value) | unknown) | | | | [facility] | | | | + + + + +---------+ + + + + | Result panel 779 | + + + + + + +---------+ + + | (unknown) | (no date) | (unknown) | [facility] | (no | (units | (unknown) | | | | | [facility] | value) | unknown) | | | | [facility] | | | | + + + + +---------+ + + + + | Result panel 780 | + + + + + + +---------+ + + | (unknown) | (no date) | (unknown) | [facility] | (no | (units | (unknown) | | | | | [facility] | value) | unknown) | | | | [facility] | | | | + + + + +---------+ + + + + | Result panel 781 | + + + + + + +---------+ + + | (unknown) | (no date) | (unknown) | [facility] | (no | (units | (unknown) | | | | | [facility] | value) | unknown) | | | | [facility] | | | | + + + + +---------+ + + + + | Result panel 782 | + + + + + + +---------+ + + | (unknown) | (no date) | (unknown) | [facility] | (no | (units | (unknown) | | | | | [facility] | value) | unknown) | | | | [facility] | | | | + + + + +---------+ + + + + | Result panel 783 | + + + + + + +---------+ + + | (unknown) | (no date) | (unknown) | [facility] | (no | (units | (unknown) | | | | | [facility] | value) | unknown) | | | | [facility] | | | | + + + + +---------+ + + + + | Result panel 784 | + + + + + + +---------+ + + | (unknown) | (no date) | (unknown) | [facility] | (no | (units | (unknown) | | | | | [facility] | value) | unknown) | | | | [facility] | | | | + + + + +---------+ + + + + | Result panel 785 | + + + + + + +---------+ + + | (unknown) | (no date) | (unknown) | [facility] | (no | (units | (unknown) | | | | | [facility] | value) | unknown) | | | | [facility] | | | | + + + + +---------+ + + + + | Result panel 786 | + + + + + + +---------+ + + | (unknown) | (no date) | (unknown) | [facility] | (no | (units | (unknown) | | | | | [facility] | value) | unknown) | | | | [facility] | | | | + + + + +---------+ + + + + | Result panel 787 | + + + + + + +---------+ + + | (unknown) | (no date) | (unknown) | [facility] | (no | (units | (unknown) | | | | | [facility] | value) | unknown) | | | | [facility] | | | | + + + + +---------+ + + + + | Result panel 788 | + + + + + + +---------+ + + | (unknown) | (no date) | (unknown) | [facility] | (no | (units | (unknown) | | | | | [facility] | value) | unknown) | | [facility] | | | | + + + + +---------+ + + + + | Result panel 789 | + + + + + + +---------+ + + | (unknown) | (no date) | (unknown) | [facility] | (no | (units | (unknown) | | | | | [facility] | value) | unknown) | | | | [facility] | | | | + + + + +---------+ + + + + | Result panel 790 | + + + + + + +---------+ + + | (unknown) | (no date) | (unknown) | [facility] | (no | (units | (unknown) | | | | | [facility] | value) | unknown) | | | | [facility] | | | | + + + + +---------+ + + + + | Result panel 791 | + + + + + + +---------+ + + | (unknown) | (no date) | (unknown) | [facility] | (no | (units | (unknown) | | | | | [facility] | value) | unknown) | | | | [facility] | | | | + + + + +---------+ + + + + | Result panel 792 | + + + + + + +---------+ + + | (unknown) | (no date) | (unknown) | [facility] | (no | (units | (unknown) | | | | | [facility] | value) | unknown) | | | | [facility] | | | | + + + + +---------+ + + + + | Result panel 793 | + + + + + + +---------+ + + | (unknown) | (no date) | (unknown) | [facility] | (no | (units | (unknown) | | | | | [facility] | value) | unknown) | | | | [facility] | | | | + + + + +---------+ + + + + | Result panel 794 | + + + + + + +---------+ + + | (unknown) | (no date) | (unknown) | [facility] | (no | (units | (unknown) | | | | | [facility] | value) | unknown) | | | | [facility] | | | | + + + + +---------+ + + + + | Result panel 795 | + + + + + + +---------+ + + | (unknown) | (no date) | (unknown) | [facility] | (no | (units | (unknown) | | | | | [facility] | value) | unknown) | | | | [facility] | | | | + + + + +---------+ + + + + | Result panel 796 | + + + + + + +---------+ + + | (unknown) | (no date) | (unknown) | [facility] | (no | (units | (unknown) | | | | | [facility] | value) | unknown) | [facility] | | [facility] | | | | + + + + +---------+ + + + + | Result panel 797 | + + + + + + +---------+ + + | (unknown) | (no date) | (unknown) | [facility] | (no | (units | (unknown) | | | | | [facility] | value) | unknown) | | | | [facility] | | | | + + + + +---------+ + + + + | Result panel 798 | + + + + + + +---------+ + + | (unknown) | (no date) | (unknown) | [facility] | (no | (units | (unknown) | | | | | [facility] | value) | unknown) | | | | [facility] | | | | + + + + +---------+ + + + + | Result panel 799 | + + + + + + +---------+ + + | (unknown) | (no date) | (unknown) | [facility] | (no | (units | (unknown) | | | | | [facility] | value) | unknown) | | | | [facility] | | | | + + + + +---------+ + + + + | Result panel 800 | + + + + + + +---------+ + + | (unknown) | (no date) | (unknown) | [facility] | (no | (units | (unknown) | | | | | [facility] | value) | unknown) | | | | [facility] | | | | + + + + +---------+ + + + + | Result panel 801 | + + + + + + +---------+ + + | (unknown) | (no date) | (unknown) | [facility] | (no | (units | (unknown) | | | | | [facility] | value) | unknown) | | | | [facility] | | | | + + + + +---------+ + + + + | Result panel 802 | + + + + + + +---------+ + + | (unknown) | (no date) | (unknown) | [facility] | (no | (units | (unknown) | | | | | [facility] | value) | unknown) | | | | [facility] | | | | + + + + +---------+ + + + + | Result panel 803 | + + + + + + +---------+ + + | (unknown) | (no date) | (unknown) | [facility] | (no | (units | (unknown) | | | | | [facility] | value) | unknown) | | | | [facility] | | | | + + + + +---------+ + + + + | Result panel 804 | + + + + + + +---------+ + + | (unknown) | (no date) | (unknown) | [facility] | (no | (units | (unknown) | | | | | [facility] | value) | unknown) | | | | [facility] | | | | + + + + +---------+ + + + + | Result panel 805 | + + + + + + +---------+ + + | (unknown) | (no date) | (unknown) | [facility] | (no | (units | (unknown) | | | | | [facility] | value) | unknown) | | | | [facility] | | | | + + + + +---------+ + + + + | Result panel 806 | + + + + + + +---------+ + + | (unknown) | (no date) | (unknown) | [facility] | (no | (units | (unknown) | | | | | [facility] | value) | unknown) | | | | [facility] | | | | + + + + +---------+ + + + + | Result panel 807 | + + + + + + +---------+ + + | (unknown) | (no date) | (unknown) | [facility] | (no | (units | (unknown) | | | | | [facility] | value) | unknown) | | | | [facility] | | | | + + + + +---------+ + + + + | Result panel 808 | + + + + + + +---------+ + + | (unknown) | (no date) | (unknown) | [facility] | (no | (units | (unknown) | | | | | [facility] | value) | unknown) | [facility] | | | | + + + + +---------+ + + + + | Result panel 809 | + + + + + + +---------+ + + | (unknown) | (no date) | (unknown) | [facility] | (no | (units | (unknown) | | | | | [facility] | value) | unknown) | | | | [facility] | | | | + + + + +---------+ + + + + | Result panel 810 | + + + + + + +---------+ + + | (unknown) | (no date) | (unknown) | [facility] | (no | (units | (unknown) | | | | | [facility] | value) | unknown) | | | | | | [facility] | | | | + + + + +---------+ + + + + | Result panel 811 | + + + + + + +---------+ + + | (unknown) | (no date) | (unknown) | [facility] | (no | (units | (unknown) | | | | | [facility] | value) | unknown) | | | | | | [facility] | | | | + + + + +---------+ + + + + | Result panel 812 | + + + + + + +---------+ + + | (unknown) | (no date) | (unknown) | [facility] | (no | (units | (unknown) | | | | | [facility] | value) | unknown) | | | | | | [facility] | | | | + + + + +---------+ + + + + | Result panel 813 | + + + + + + +---------+ + + | (unknown) | (no date) | (unknown) | [facility] | (no | (units | (unknown) | | | | | [facility] | value) | unknown) | | | | | | [facility] | | | | + + + + +---------+ + + + + | Result panel 814 | + + + + + + +---------+ + + | (unknown) | (no date) | (unknown) | [facility] | (no | (units | (unknown) | | | | | [facility] | value) | unknown) | | | | | [facility] | | | | + + + + +---------+ + + + + | Result panel 815 | + + + + + + +---------+ + + | (unknown) | (no date) | (unknown) | [facility] | (no | (units | (unknown) | | | | | [facility] | value) | unknown) | | | | | | [facility] | | | | + + + + +---------+ + + + + | Result panel 816 | + + + + + + +---------+ + + | (unknown) | (no date) | (unknown) | [facility] | (no | (units | (unknown) | | | | | [facility] | value) | unknown) | | | | | | [facility] | | | | + + + + +---------+ + + + + | Result panel 817 | + + + + + + +---------+ + + | (unknown) | (no date) | (unknown) | [facility] | (no | (units | (unknown) | | | | | [facility] | value) | unknown) | | | | | | [facility] | | | | + + + + +---------+ + + + + | Result panel 818 | + + + + + + +---------+ + + | (unknown) | (no date) | (unknown) | [facility] | (no | (units | (unknown) | | | | | [facility] | value) | unknown) | | | | | | [facility] | | | | + + + + +---------+ + + + + | Result panel 819 | + + + + + + +---------+ + + | (unknown) | (no date) | (unknown) | [facility] | (no | (units | (unknown) | | | | | [facility] value) | unknown) | | | | | [facility] | | | | + + + + +---------+ + + + + | Result panel 820 | + + + + + + +---------+ + + | (unknown) | (no date) | (unknown) | [facility] | (no | (units | (unknown) | | | | | [facility] | value) | unknown) | | | | [facility] | | | | + + + + +---------+ + + + + | Result panel 821 | + + + + + + +---------+ + + | (unknown) | (no date) | (unknown) | [facility] | (no | (units | (unknown) | | | | | [facility] value) | unknown) | | [facility] | | | | + + + + +---------+ + + + + | Result panel 822 | + + + + + + +---------+ + + | (unknown) | (no date) | (unknown) | [facility] | (no | (units | (unknown) | | | | | [facility] value) | unknown) | | | [facility] | | | | + + + + +---------+ + + + + | Result panel 823 | + + + + + + +---------+ + + | (unknown) | (no date) | (unknown) | [facility] | (no | (units | (unknown) | | | | | [facility] value) | unknown) | [facility] | | | | + + + + +---------+ + + + + | Result panel 824 | + + + + + + +---------+ + + | (unknown) | (no date) | (unknown) | [facility] | (no | (units | (unknown) | | | | | [facility] | value) | unknown) | | | [facility] | | | | + + + + +---------+ + + + + | Result panel 825 | + + + + + + +---------+ + + | (unknown) | (no date) | (unknown) | [facility] | (no | (units | (unknown) | | | | | [facility] value) | unknown) | | | [facility] | | | | + + + + +---------+ + + + + | Result panel 826 | + + + + + + +---------+ + + | (unknown) | (no date) | (unknown) | [facility] | (no | (units | (unknown) | | | | | [facility] | value) | unknown) | | | [facility] | | | | + + + + +---------+ + + + + | Result panel 827 | + + + + + + +---------+ + + | (unknown) | (no date) | (unknown) | [facility] | (no | (units | (unknown) | | | | | [facility] value) | unknown) | | [facility] | | | | + + + + +---------+ + + + + | Result panel 828 | + + + + + + +---------+ + + | (unknown) | (no date) | (unknown) | [facility] | (no | (units | (unknown) | | | | | [facility] value) | unknown) | | [facility] | | | | + + + + +---------+ + + + + | Result panel 829 | + + + + + + +---------+ + + | (unknown) | (no date) | (unknown) | [facility] | (no | (units | (unknown) | | | | | [facility] value) | unknown) | | | | [facility] | | | | + + + + +---------+ + + + + | Result panel 830 | + + + + + + +---------+ + + | (unknown) | (no date) | (unknown) | [facility] | (no | (units | (unknown) | | | | | [facility] value) | unknown) | | [facility] | | | | + + + + +---------+ + + + + | Result panel 831 | + + + + + + +---------+ + + | (unknown) | (no date) | (unknown) | [facility] | (no | (units | (unknown) | | | | | [facility] value) | unknown) | | [facility] | | | | + + + + +---------+ + + + + | Result panel 832 | + + + + + + +---------+ + + | (unknown) | (no date) | (unknown) | [facility] | (no | (units | (unknown) | | | | | [facility] value) | unknown) | | | [facility] | | | | + + + + +---------+ + + + + | Result panel 833 | + + + + + + +---------+ + + | (unknown) | (no date) | (unknown) | [facility] | (no | (units | (unknown) | | | | | [facility] value) | unknown) | [facility] | | | | + + + + +---------+ + + + + | Result panel 834 | + + + + + + +---------+ + + | (unknown) | (no date) | (unknown) | [facility] | (no | (units | (unknown) | | | | | [facility] | value) | unknown) | | [facility] | | | | + + + + +---------+ + + + + | Result panel 835 | + + + + + + +---------+ + + | (unknown) | (no date) | (unknown) | [facility] | (no | (units | (unknown) | | | | | [facility] | value) | unknown) | | | [facility] | | | | + + + + +---------+ + + + + | Result panel 836 | + + + + + + +---------+ + + | (unknown) | (no date) | (unknown) | [facility] | (no | (units | (unknown) | | | | | [facility] | value) | unknown) | | | [facility] | | | | + + + + +---------+ + + + + | Result panel 837 | + + + + + + +---------+ + + | (unknown) | (no date) | (unknown) | [facility] | (no | (units | (unknown) | | | | | [facility] value) | unknown) | [facility] | | | | + + + + +---------+ + + + + | Result panel 838 | + + + + + + +---------+ + + | (unknown) | (no date) | (unknown) | [facility] | (no | (units | (unknown) | | | | | [facility] | value) | unknown) | | | | | [facility] | | | | + + + + +---------+ + + + + | Result panel 839 | + + + + + + +---------+ + + | (unknown) | (no date) | (unknown) | [facility] | (no | (units | (unknown) | | | | | [facility] value) | unknown) | | | [facility] | | | | + + + + +---------+ + + + + | Result panel 840 | + + + + + + +---------+ + + | (unknown) | (no date) | (unknown) | [facility] | (no | (units | (unknown) | | | | | [facility] | value) | unknown) | | [facility] | | | | + + + + +---------+ + + + + | Result panel 841 | + + + + + + +---------+ + + | (unknown) | (no date) | (unknown) | [facility] | (no | (units | (unknown) | | | | | [facility] | value) | unknown) | | | | [facility] | | | | + + + + +---------+ + + + + | Result panel 842 | + + + + + + +---------+ + + | (unknown) | (no date) | (unknown) | [facility] | (no | (units | (unknown) | | | | | [facility] | value) | unknown) | [facility] | [facility] | | | | + + + + +---------+ + + + + | Result panel 843 | + + + + + + +---------+ + + | (unknown) | (no date) | (unknown) | [facility] | (no | (units | (unknown) | | | | | [facility] | value) | unknown) | | | | [facility] | | | | + + + + +---------+ + + + + | Result panel 844 | + + + + + + +---------+ + + | (unknown) | (no date) | (unknown) | [facility] | (no | (units | (unknown) | | | | | [facility] | value) | unknown) | | | [facility] | | | | + + + + +---------+ + + + + | Result panel 845 | + + + + + + +---------+ + + | (unknown) | (no date) | (unknown) | [facility] | (no | (units | (unknown) | | | | | [facility] | value) | unknown) | | | | [facility] | | | | + + + + +---------+ + + + + | Result panel 846 | + + + + + + +---------+ + + | (unknown) | (no date) | (unknown) | [facility] | (no | (units | (unknown) | | | | | [facility] | value) | unknown) | | | | [facility] | | | | + + + + +---------+ + + + + | Result panel 847 | + + + + + + +---------+ + + | (unknown) | (no date) | (unknown) | [facility] | (no | (units | (unknown) | | | | | [facility] | value) | unknown) | | | [facility] | | | | + + + + +---------+ + + + + | Result panel 848 | + + + + + + +---------+ + + | (unknown) | (no date) | (unknown) | [facility] | (no | (units | (unknown) | | | | | [facility] | value) | unknown) | | | [facility] | | | | + + + + +---------+ + + + + | Result panel 849 | + + + + + + +---------+ + + | (unknown) | (no date) | (unknown) | [facility] | (no | (units | (unknown) | | | | | [facility] | value) | unknown) | | | | [facility] | | | | + + + + +---------+ + + + + | Result panel 850 | + + + + + + +---------+ + + | (unknown) | (no date) | (unknown) | [facility] | (no | (units | (unknown) | | | | | [facility] | value) | unknown) | | | | [facility] | | | | + + + + +---------+ + + + + | Result panel 851 | + + + + + + +---------+ + + | (unknown) | (no date) | (unknown) | [facility] | (no | (units | (unknown) | | | | | [facility] | value) | unknown) | | | | [facility] | | | | + + + + +---------+ + + + + | Result panel 852 | + + + + + + +---------+ + + | (unknown) | (no date) | (unknown) | [facility] | (no | (units | (unknown) | | | | | [facility] | value) | unknown) | | | | [facility] | | | | + + + + +---------+ + + + + | Result panel 853 | + + + + + + +---------+ + + | (unknown) | (no date) | (unknown) | [facility] | (no | (units | (unknown) | | | | | [facility] | value) | unknown) | | | | [facility] | | | | + + + + +---------+ + + + + | Result panel 854 | + + + + + + +---------+ + + | (unknown) | (no date) | (unknown) | [facility] | (no | (units | (unknown) | | | | | [facility] | value) | unknown) | | | | [facility] | | | | + + + + +---------+ + + + + | Result panel 855 | + + + + + + +---------+ + + | (unknown) | (no date) | (unknown) | [facility] | (no | (units | (unknown) | | | | | [facility] | value) | unknown) | [facility] | | | | + + + + +---------+ + + + + | Result panel 856 | + + + + + + +---------+ + + | (unknown) | (no date) | (unknown) | [facility] | (no | (units | (unknown) | | | | | [facility] | value) | unknown) | | | | [facility] | | | | + + + + +---------+ + + + + | Result panel 857 | + + + + + + +---------+ + + | (unknown) | (no date) | (unknown) | [facility] | (no | (units | (unknown) | | | | | [facility] | value) | unknown) | | [facility] | [facility] | | | | + + + + +---------+ + + + + | Result panel 858 | + + + + + + +---------+ + + | (unknown) | (no date) | (unknown) | [facility] | (no | (units | (unknown) | | | | | [facility] | value) | unknown) | | | | [facility] | | | | + + + + +---------+ + + + + | Result panel 859 | + + + + + + +---------+ + + | (unknown) | (no date) | (unknown) | [facility] | (no | (units | (unknown) | | | | | [facility] | value) | unknown) | | | | [facility] | | | | + + + + +---------+ + + + + | Result panel 860 | + + + + + + +---------+ + + | (unknown) | (no date) | (unknown) | [facility] | (no | (units | (unknown) | | | | | [facility] | value) | unknown) | | | | [facility] | | | | + + + + +---------+ + + + + | Result panel 861 | + + + + + + +---------+ + + | (unknown) | (no date) | (unknown) | [facility] | (no | (units | (unknown) | | | | | [facility] | value) | unknown) | | | | [facility] | | | | + + + + +---------+ + + + + | Result panel 862 | + + + + + + +---------+ + + | (unknown) | (no date) | (unknown) | [facility] | (no | (units | (unknown) | | | | | [facility] | value) | unknown) | | | | [facility] | | | | + + + + +---------+ + + + + | Result panel 863 | + + + + + + +---------+ + + | (unknown) | (no date) | (unknown) | [facility] | (no | (units | (unknown) | | | | | [facility] | value) | unknown) | | | | | [facility] | | | | + + + + +---------+ + + + + | Result panel 864 | + + + + + + +---------+ + + | (unknown) | (no date) | (unknown) | [facility] | (no | (units | (unknown) | | | | | [facility] | value) | unknown) | [facility] | | | | + + + + +---------+ + + + + | Result panel 865 | + + + + + + +---------+ + + | (unknown) | (no date) | (unknown) | [facility] | (no | (units | (unknown) | | | | | [facility] | value) | unknown) | | | | [facility] | | | | + + + + +---------+ + + + + | Result panel 866 | + + + + + + +---------+ + + | (unknown) | (no date) | (unknown) | [facility] | (no | (units | (unknown) | | | | | [facility] | value) | unknown) | | | | [facility] | | | | + + + + +---------+ + + + + | Result panel 867 | + + + + + + +---------+ + + | (unknown) | (no date) | (unknown) | [facility] | (no | (units | (unknown) | | | | | [facility] | value) | unknown) | | [facility] | [facility] | | | | + + + + +---------+ + + + + | Result panel 868 | + + + + + + +---------+ + + | (unknown) | (no date) | (unknown) | [facility] | (no | (units | (unknown) | | | | [facility] | value) | unknown) | | | | | [facility] | | | | + + + + +---------+ + + + + | Result panel 869 | + + + + + + +---------+ + + | (unknown) | (no date) | (unknown) | [facility] | (no | (units | (unknown) | | | | | [facility] value) | unknown) | | | [facility] | | | | + + + + +---------+ + + + + | Result panel 870 | + + + + + + +---------+ + + | (unknown) | (no date) | (unknown) | [facility] | (no | (units | (unknown) | | | | | [facility] | value) | unknown) | | | | [facility] | | | | + + + + +---------+ + + + + | Result panel 871 | + + + + + + +---------+ + + | (unknown) | (no date) | (unknown) | [facility] | (no | (units | (unknown) | | | | | [facility] | value) | unknown) | | | | [facility] | | | | + + + + +---------+ + + + + | Result panel 872 | + + + + + + +---------+ + + | (unknown) | (no date) | (unknown) | [facility] | (no | (units | (unknown) | | | | | [facility] | value) | unknown) | | | | [facility] | | | | + + + + +---------+ + + + + | Result panel 873 | + + + + + + +---------+ + + | (unknown) | (no date) | (unknown) | [facility] | (no | (units | (unknown) | | | | | [facility] | value) | unknown) | | [facility] | [facility] | | | | + + + + +---------+ + + + + | Result panel 874 | + + + + + + +---------+ + + | (unknown) | (no date) | (unknown) | [facility] | (no | (units | (unknown) | | | | | [facility] | value) | unknown) | [facility] | | [facility] | | | | + + + + +---------+ + + + + | Result panel 875 | + + + + + + +---------+ + + | (unknown) | (no date) | (unknown) | [facility] | (no | (units | (unknown) | | | | | [facility] | value) | unknown) | | [facility] | [facility] | | | | + + + + +---------+ + + + + | Result panel 876 | + + + + + + +---------+ + + | (unknown) | (no date) | (unknown) | [facility] | (no | (units | (unknown) | | | | | [facility] | value) | unknown) | [facility] | | | | + + + + +---------+ + + + + | Result panel 877 | + + + + + + +---------+ + + | (unknown) | (no date) | (unknown) | [facility] | (no | (units | (unknown) | | | | | [facility] | value) | unknown) | | [facility] | [facility] | | | | + + + + +---------+ + + + + | Result panel 878 | + + + + + + +---------+ + + | (unknown) | (no date) | (unknown) | [facility] | (no | (units | (unknown) | | | | | [facility] | value) | unknown) | | | | [facility] | | | | + + + + +---------+ + + + + | Result panel 879 | + + + + + + +---------+ + + | (unknown) | (no date) | (unknown) | [facility] | (no | (units | (unknown) | | | | | [facility] | value) | unknown) | | [facility] | [facility] | | | | + + + + +---------+ + + + + | Result panel 880 | + + + + + + +---------+ + + | (unknown) | (no date) | (unknown) | [facility] | (no | (units | (unknown) | | | | | [facility] | value) | unknown) | [facility] | [facility] | | | | + + + + +---------+ + + + + | Result panel 881 | + + + + + + +---------+ + + | (unknown) | (no date) | (unknown) | [facility] | (no | (units | (unknown) | | | | | [facility] | value) | unknown) | | | | [facility] | | | | + + + + +---------+ + + + + | Result panel 882 | + + + + + + +---------+ + + | (unknown) | (no date) | (unknown) | [facility] | (no | (units | (unknown) | | | | | [facility] | value) | unknown) | | | | [facility] | | | | + + + + +---------+ + + + + | Result panel 883 | + + + + + + +---------+ + + | (unknown) | (no date) | (unknown) | [facility] | (no | (units | (unknown) | | | | | [facility] | value) | unknown) | | | | | [facility] | | | | + + + + +---------+ + + + + | Result panel 884 | + + + + + + +---------+ + + | (unknown) | (no date) | (unknown) | [facility] | (no | (units | (unknown) | | | | | [facility] | value) | unknown) | | | | | [facility] | | | | + + + + +---------+ + + + + | Result panel 885 | + + + + + + +---------+ + + | (unknown) | (no date) | (unknown) | [facility] | (no | (units | (unknown) | | | | | [facility] | value) | unknown) | | | | | [facility] | | | | + + + + +---------+ + + + + | Result panel 886 | + + + + + + +---------+ + + | (unknown) | (no date) | (unknown) | [facility] | (no | (units | (unknown) | | | | | [facility] | value) | unknown) | | | | | [facility] | | | | + + + + +---------+ + + + + | Result panel 887 | + + + + + + +---------+ + + | (unknown) | (no date) | (unknown) | [facility] | (no | (units | (unknown) | | | | | [facility] | value) | unknown) | | | | [facility] | | | | + + + + +---------+ + + + + | Result panel 888 | + + + + + + +---------+ + + | (unknown) | (no date) | (unknown) | [facility] | (no | (units | (unknown) | | | | | [facility] | value) | unknown) | | | | [facility] | | | | + + + + +---------+ + + + + | Result panel 889 | + + + + + + +---------+ + + | (unknown) | (no date) | (unknown) | [facility] | (no | (units | (unknown) | | | | | [facility] | value) | unknown) | [facility] | | [facility] | | | | + + + + +---------+ + + + + | Result panel 890 | + + + + + + +---------+ + + | (unknown) | (no date) | (unknown) | [facility] | (no | (units | (unknown) | | | | | [facility] | value) | unknown) | | | | [facility] | | | | + + + + +---------+ + + + + | Result panel 891 | + + + + + + +---------+ + + | (unknown) | (no date) | (unknown) | [facility] | (no | (units | (unknown) | | | | | [facility] | value) | unknown) | | | | [facility] | | | | + + + + +---------+ + + + + | Result panel 892 | + + + + + + +---------+ + + | (unknown) | (no date) | (unknown) | [facility] | (no | (units | (unknown) | | | | | [facility] | value) | unknown) | | | | [facility] | | | | + + + + +---------+ + + + + | Result panel 893 | + + + + + + +---------+ + + | (unknown) | (no date) | (unknown) | [facility] | (no | (units | (unknown) | | | | | [facility] | value) | unknown) | [facility] | | [facility] | | | | + + + + +---------+ + + + + | Result panel 894 | + + + + + + +---------+ + + | (unknown) | (no date) | (unknown) | [facility] | (no | (units | (unknown) | | | | | [facility] | value) | unknown) | | | | [facility] | | | | + + + + +---------+ + + + + | Result panel 895 | + + + + + + +---------+ + + | (unknown) | (no date) | (unknown) | [facility] | (no | (units | (unknown) | | | | | [facility] | value) | unknown) | | | | [facility] | | | | + + + + +---------+ + + + + | Result panel 896 | + + + + + + +---------+ + + | (unknown) | (no date) | (unknown) | [facility] | (no | (units | (unknown) | | | | | [facility] | value) | unknown) | | | | [facility] | | | | + + + + +---------+ + + + + | Result panel 897 | + + + + + + +---------+ + + | (unknown) | (no date) | (unknown) | [facility] | (no | (units | (unknown) | | | | | [facility] | value) | unknown) | [facility] | [facility] | | | | + + + + +---------+ + + + + | Result panel 898 | + + + + + + +---------+ + + | (unknown) | (no date) | (unknown) | [facility] | (no | (units | (unknown) | | | | | [facility] | value) | unknown) | | [facility] | [facility] | | | | + + + + +---------+ + + + + | Result panel 899 | + + + + + + +---------+ + + | (unknown) | (no date) | (unknown) | [facility] | (no | (units | (unknown) | | | | | [facility] | value) | unknown) | | | | [facility] | | | | + + + + +---------+ + + + + | Result panel 900 | + + + + + + +---------+ + + | (unknown) | (no date) | (unknown) | [facility] | (no | (units | (unknown) | | | | | [facility] | value) | unknown) | | | | [facility] | | | | + + + + +---------+ + + + + | Result panel 901 | + + + + + + +---------+ + + | (unknown) | (no date) | (unknown) | [facility] | (no | (units | (unknown) | | | | | [facility] | value) | unknown) | [facility] | [facility] | | | | + + + + +---------+ + + + + | Result panel 902 | + + + + + + +---------+ + + | (unknown) | (no date) | (unknown) | [facility] | (no | (units | (unknown) | | | | | [facility] | value) | unknown) | | | | [facility] | | | | + + + + +---------+ + + + + | Result panel 903 | + + + + + + +---------+ + + | (unknown) | (no date) | (unknown) | [facility] | (no | (units | (unknown) | | | | | [facility] | value) | unknown) | | | | [facility] | | | | + + + + +---------+ + + + + | Result panel 904 | + + + + + + +---------+ + + | (unknown) | (no date) | (unknown) | [facility] | (no | (units | (unknown) | | | | | [facility] | value) | unknown) | [facility] | | [facility] | | | | + + + + +---------+ + + + + | Result panel 905 | + + + + + + +---------+ + + | (unknown) | (no date) | (unknown) | [facility] | (no | (units | (unknown) | | | | | [facility] | value) | unknown) | | | | [facility] | | | | + + + + +---------+ + + + + | Result panel 906 | + + + + + + +---------+ + + | (unknown) | (no date) | (unknown) | [facility] | (no | (units | (unknown) | | | | | [facility] | value) | unknown) | [facility] | | | [facility] | | | | + + + + +---------+ + + + + | Result panel 907 | + + + + + + +---------+ + + | (unknown) | (no date) | (unknown) | [facility] | (no | (units | (unknown) | | | | | [facility] | value) | unknown) | | [facility] | | [facility] | | | | + + + + +---------+ + + + + | Result panel 908 | + + + + + + +---------+ + + | (unknown) | (no date) | (unknown) | [facility] | (no | (units | (unknown) | | | | | [facility] | value) | unknown) | | [facility] | [facility] | | | | + + + + +---------+ + + + + | Result panel 909 | + + + + + + +---------+ + + | (unknown) | (no date) | (unknown) | [facility] | (no | (units | (unknown) | | | | | [facility] | value) | unknown) | | | | | [facility] | | | | + + + + +---------+ + + + + | Result panel 910 | + + + + + + +---------+ + + | (unknown) | (no date) | (unknown) | [facility] | (no | (units | (unknown) | | | | | [facility] | value) | unknown) | | | | | [facility] | | | | + + + + +---------+ + + + + | Result panel 911 | + + + + + + +---------+ + + | (unknown) | (no date) | (unknown) | [facility] | (no | (units | (unknown) | | | | | [facility] | value) | unknown) | | [facility] | [facility] | | | | + + + + +---------+ + + + + | Result panel 912 | + + + + + + +---------+ + + | (unknown) | (no date) | (unknown) | [facility] | (no | (units | (unknown) | | | | | [facility] | value) | unknown) | | | | | [facility] | | | | + + + + +---------+ + + + + | Result panel 913 | + + + + + + +---------+ + + | (unknown) | (no date) | (unknown) | [facility] | (no | (units | (unknown) | | | | | [facility] | value) | unknown) | | | | | [facility] | | | | + + + + +---------+ + + + + | Result panel 914 | + + + + + + +---------+ + + | (unknown) | (no date) | (unknown) | [facility] | (no | (units | (unknown) | | | | | [facility] | value) | unknown) | | | | [facility] | | | | + + + + +---------+ + + + + | Result panel 915 | + + + + + + +---------+ + + | (unknown) | (no date) | (unknown) | [facility] | (no | (units | (unknown) | | | | | [facility] | value) | unknown) | | | | | [facility] | | | | + + + + +---------+ + + + + | Result panel 916 | + + + + + + +---------+ + + | (unknown) | (no date) | (unknown) | [facility] | (no | (units | (unknown) | | | | | [facility] | value) | unknown) | [facility] | | | | + + + + +---------+ + + + + | Result panel 917 | + + + + + + +---------+ + + | (unknown) | (no date) | (unknown) | [facility] | (no | (units | (unknown) | | | | | [facility] | value) | unknown) | | | | [facility] | | | | + + + + +---------+ + + + + | Result panel 918 | + + + + + + +---------+ + + | (unknown) | (no date) | (unknown) | [facility] | (no | (units | (unknown) | | | | | [facility] | value) | unknown) | | | | [facility] | | | | + + + + +---------+ + + + + | Result panel 919 | + + + + + + +---------+ + + | (unknown) | (no date) | (unknown) | [facility] | (no | (units | (unknown) | | | | | [facility] | value) | unknown) | | | | | [facility] | | | | + + + + +---------+ + + + + | Result panel 920 | + + + + + + +---------+ + + | (unknown) | (no date) | (unknown) | [facility] | (no | (units | (unknown) | | | | | [facility] | value) | unknown) | | | | | [facility] | | | | + + + + +---------+ + + + + | Result panel 921 | + + + + + + +---------+ + + | (unknown) | (no date) | (unknown) | [facility] | (no | (units | (unknown) | | | | | [facility] | value) | unknown) | | | | | | [facility] | | | | + + + + +---------+ + + + + | Result panel 922 | + + + + + + +---------+ + + | (unknown) | (no date) | (unknown) | [facility] | (no | (units | (unknown) | | | | | [facility] | value) | unknown) | | | | | [facility] | | | | + + + + +---------+ + + + + | Result panel 923 | + + + + + + +---------+ + + | (unknown) | (no date) | (unknown) | [facility] ([facility] | [facility] | ([facility]) | [facility] | value) | unknown) | | [facility] | | [facility] | | | | + + + + +---------+ + + + + | Result panel 924 | + + + + + + +---------+ + + | (unknown) | (no date) | (unknown) | [facility] | (no | (units | (unknown) | | | | | [facility] | value) | unknown) | | | | | [facility] | | | | + + + + +---------+ + + + + | Result panel 925 | + + + + + + +---------+ + + | (unknown) | (no date) | (unknown) | [facility] | (no | (units | (unknown) | | | | | [facility] | value) | unknown) | | | | | [facility] | | | | + + + + +---------+ + + + + | Result panel 926 | + + + + + + +---------+ + + | (unknown) | (no date) | (unknown) | [facility] | (no | (units | (unknown) | | | | | [facility] | value) | unknown) | | | | | | [facility] | | | | + + + + +---------+ + + + + | Result panel 927 | + + + + + + +---------+ + + | (unknown) | (no date) | (unknown) | [facility] | (no | (units | (unknown) | | | | | [facility] | value) | unknown) | | | | | | [facility] | | | | + + + + +---------+ + + + + | Result panel 928 | + + + + + + +---------+ + + | (unknown) | (no date) | (unknown) | [facility] | (no | (units | (unknown) | | | | | [facility] | value) | unknown) | | | | | | [facility] | | | | + + + + +---------+ + + + + | Result panel 929 | + + + + + + +---------+ + + | (unknown) | (no date) | (unknown) | [facility] | (no | (units | (unknown) | | | | | [facility] | value) | unknown) | | | | | | [facility] | | | | + + + + +---------+ + + + + | Result panel 930 | + + + + + + +---------+ + + | (unknown) | (no date) | (unknown) | [facility] | (no | (units | (unknown) | | | | | [facility] value) | unknown) | | | | | [facility] | | | | + + + + +---------+ + + + + | Result panel 931 | + + + + + + +---------+ + + | (unknown) | (no date) | (unknown) | [facility] | (no | (units | (unknown) | | | | | [facility] | value) | unknown) | | | | [facility] | | | | + + + + +---------+ + + + + | Result panel 932 | + + + + + + +---------+ + + | (unknown) | (no date) | (unknown) | [facility] | (no | (units | (unknown) | | | | | [facility] | value) | unknown) | | | | [facility] | | | | + + + + +---------+ + + + + | Result panel 933 | + + + + + + +---------+ + + | (unknown) | (no date) | (unknown) | [facility] | (no | (units | (unknown) | | | | | [facility] | value) | unknown) | | | | [facility] | | | | + + + + +---------+ + + + + | Result panel 934 | + + + + + + +---------+ + + | (unknown) | (no date) | (unknown) | [facility] | (no | (units | (unknown) | | | | | [facility] | value) | unknown) | | | | [facility] | | | | + + + + +---------+ + + + + | Result panel 935 | + + + + + + +---------+ + + | (unknown) | (no date) | (unknown) | [facility] | (no | (units | (unknown) | | | | | [facility] | value) | unknown) | | | [facility] | | | | + + + + +---------+ + + + + | Result panel 936 | + + + + + + +---------+ + + | (unknown) | (no date) | (unknown) | [facility] | (no | (units | (unknown) | | | | | [facility] | value) | unknown) | | | | [facility] | | | | + + + + +---------+ + + + + | Result panel 937 | + + + + + + +---------+ + + | (unknown) | (no date) | (unknown) | [facility] | (no | (units | (unknown) | | | | | [facility] | value) | unknown) | | | | | [facility] | | | | + + + + +---------+ + + + + | Result panel 938 | + + + + + + +---------+ + + | (unknown) | (no date) | (unknown) | [facility] | (no | (units | (unknown) | | | | | [facility] | value) | unknown) | | | | [facility] | | | | + + + + +---------+ + + + + | Result panel 939 | + + + + + + +---------+ + + | (unknown) | (no date) | (unknown) | [facility] | (no | (units | (unknown) | | | | | [facility] | value) | unknown) | | | | [facility] | | | | + + + + +---------+ + + + + | Result panel 940 | + + + + + + +---------+ + + | (unknown) | (no date) | (unknown) | [facility] | (no | (units | (unknown) | | | | | [facility] | value) | unknown) | | | | | [facility] | | | | + + + + +---------+ + + + + | Result panel 941 | + + + + + + +---------+ + + | (unknown) | (no date) | (unknown) | [facility] | (no | (units | (unknown) | | | | | [facility] | value) | unknown) | | | | [facility] | | | | + + + + +---------+ + + + + | Result panel 942 | + + + + + + +---------+ + + | (unknown) | (no date) | (unknown) | [facility] | (no | (units | (unknown) | | | | | [facility] | value) | unknown) | | | | [facility] | | | | + + + + +---------+ + + + + | Result panel 943 | + + + + + + +---------+ + + | (unknown) | (no date) | (unknown) | [facility] | (no | (units | (unknown) | | | | | [facility] | value) | unknown) | | | | [facility] | | | | + + + + +---------+ + + + + | Result panel 944 | + + + + + + +---------+ + + | (unknown) | (no date) | (unknown) | [facility] | (no | (units | (unknown) | | | | | [facility] | value) | unknown) | | [facility] | [facility] | | | | + + + + +---------+ + + + + | Result panel 945 | + + + + + + +---------+ + + | (unknown) | (no date) | (unknown) | [facility] | (no | (units | (unknown) | | | | | [facility] | value) | unknown) | | | | [facility] | | | | + + + + +---------+ + + + + | Result panel 946 | + + + + + + +---------+ + + | (unknown) | (no date) | (unknown) | [facility] | (no | (units | (unknown) | | | | | [facility] | value) | unknown) | | | | | [facility] | | | | + + + + +---------+ + + + + | Result panel 947 | + + + + + + +---------+ + + | (unknown) | (no date) | (unknown) | [facility] | (no | (units | (unknown) | | | | | [facility] | value) | unknown) | | | | [facility] | | | | + + + + +---------+ + + + + | Result panel 948 | + + + + + + +---------+ + + | (unknown) | (no date) | (unknown) | [facility] | (no | (units | (unknown) | | | | | [facility] | value) | unknown) | | | | [facility] | | | | + + + + +---------+ + + + + | Result panel 949 | + + + + + + +---------+ + + | (unknown) | (no date) | (unknown) | [facility] | (no | (units | (unknown) | | | | | [facility] | value) | unknown) | | | | [facility] | | | | + + + + +---------+ + + + + | Result panel 950 | + + + + + + +---------+ + + | (unknown) | (no date) | (unknown) | [facility] | (no | (units | (unknown) | | | | | [facility] | value) | unknown) | | | | [facility] | | | | + + + + +---------+ + + + + | Result panel 951 | + + + + + + +---------+ + + | (unknown) | (no date) | (unknown) | [facility] | (no | (units | (unknown) | | | | | [facility] | value) | unknown) | | | | | [facility] | | | | + + + + +---------+ + + + + | Result panel 952 | + + + + + + +---------+ + + | (unknown) | (no date) | (unknown) | [facility] | (no | (units | (unknown) | | | | | [facility] | value) | unknown) | | | | | [facility] | | | | + + + + +---------+ + + + + | Result panel 953 | + + + + + + +---------+ + + | (unknown) | (no date) | (unknown) | [facility] | (no | (units | (unknown) | | | | | [facility] | value) | unknown) | | | | | [facility] | | | | + + + + +---------+ + + + + | Result panel 954 | + + + + + + +---------+ + + | (unknown) | (no date) | (unknown) | [facility] | (no | (units | (unknown) | | | | | [facility] | value) | unknown) | [facility] | | [facility] | | | | + + + + +---------+ + + + + | Result panel 955 | + + + + + + +---------+ + + | (unknown) | (no date) | (unknown) | [facility] | (no | (units | (unknown) | | | | | [facility] | value) | unknown) | | | | [facility] | | | | + + + + +---------+ + + + + | Result panel 956 | + + + + + + +---------+ + + | (unknown) | (no date) | (unknown) | [facility] | (no | (units | (unknown) | | | | | [facility] | value) | unknown) | | | | [facility] | | | | + + + + +---------+ + + + + | Result panel 957 | + + + + + + +---------+ + + | (unknown) | (no date) | (unknown) | [facility] | (no | (units | (unknown) | | | | | [facility] | value) | unknown) | | | | | [facility] | | | | + + + + +---------+ + + + + | Result panel 958 | + + + + + + +---------+ + + | (unknown) | (no date) | (unknown) | [facility] | (no | (units | (unknown) | | | | | [facility] | value) | unknown) | | | | | [facility] | | | | + + + + +---------+ + + + + | Result panel 959 | + + + + + + +---------+ + + | (unknown) | (no date) | (unknown) | [facility] | (no | (units | (unknown) | | | | | [facility] | value) | unknown) | | | | | [facility] | | | | + + + + +---------+ + + + + | Result panel 960 | + + + + + + +---------+ + + | (unknown) | (no date) | (unknown) | [facility] | (no | (units | (unknown) | | | | | [facility] | value) | unknown) | | | | | [facility] | | | | + + + + +---------+ + + + + | Result panel 961 | + + + + + + +---------+ + + | (unknown) | (no date) | (unknown) | [facility] | (no | (units | (unknown) | | | | | [facility] | value) | unknown) | | | | | [facility] | | | | + + + + +---------+ + + + + | Result panel 962 | + + + + + + +---------+ + + | (unknown) | (no date) | (unknown) | [facility] | (no | (units | (unknown) | | | | | [facility] | value) | unknown) | | | | | [facility] | | | | + + + + +---------+ + + + + | Result panel 963 | + + + + + + +---------+ + + | (unknown) | (no date) | (unknown) | [facility] | (no | (units | (unknown) | | | | | [facility] | value) | unknown) | | | | | [facility] | | | | + + + + +---------+ + + + + | Result panel 964 | + + + + + + +---------+ + + | (unknown) | (no date) | (unknown) | [facility] | (no | (units | (unknown) | | | | | [facility] | value) | unknown) | | | | | [facility] | | | | + + + + +---------+ + + + + | Result panel 965 | + + + + + + +---------+ + + | (unknown) | (no date) | (unknown) | [facility] | (no | (units | (unknown) | | | | | [facility] | value) | unknown) | | | | | [facility] | | | | + + + + +---------+ + + + + | Result panel 966 | + + + + + + +---------+ + + | (unknown) | (no date) | (unknown) | [facility] | (no | (units | (unknown) | | | | | [facility] | value) | unknown) | | [facility] | [facility] | | | | + + + + +---------+ + + + + | Result panel 967 | + + + + + + +---------+ + + | (unknown) | (no date) | (unknown) | [facility] | (no | (units | (unknown) | | | | | [facility] | value) | unknown) | | | | | [facility] | | | | + + + + +---------+ + + + + | Result panel 968 | + + + + + + +---------+ + + | (unknown) | (no date) | (unknown) | [facility] | (no | (units | (unknown) | | | | | [facility] | value) | unknown) | | | | | [facility] | | | | + + + + +---------+ + + + + | Result panel 969 | + + + + + + +---------+ + + | (unknown) | (no date) | (unknown) | [facility] | (no | (units | (unknown) | | | | | [facility] | value) | unknown) | | | | [facility] | | | | + + + + +---------+ + + + + | Result panel 970 | + + + + + + +---------+ + + | (unknown) | (no date) | (unknown) | [facility] | (no | (units | (unknown) | | | | | [facility] | value) | unknown) | | [facility] | [facility] | | | | + + + + +---------+ + + + + | Result panel 971 | + + + + + + +---------+ + + | (unknown) | (no date) | (unknown) | [facility] | (no | (units | (unknown) | | | | | [facility] | value) | unknown) | | | | [facility] | | | | + + + + +---------+ + + + + | Result panel 972 | + + + + + + +---------+ + + | (unknown) | (no date) | (unknown) | [facility] | (no | (units | (unknown) | | | | | [facility] | value) | unknown) | | | | | [facility] | | | | + + + + +---------+ + + + + | Result panel 973 | + + + + + + +---------+ + + | (unknown) | (no date) | (unknown) | [facility] | (no | (units | (unknown) | | | | | [facility] | value) | unknown) | | | | | [facility] | | | | + + + + +---------+ + + + + | Result panel 974 | + + + + + + +---------+ + + | (unknown) | (no date) | (unknown) | [facility] | (no | (units | (unknown) | | | | | [facility] | value) | unknown) | [facility] | | | [facility] | | | | + + + + +---------+ + + + + | Result panel 975 | + + + + + + +---------+ + + | (unknown) | (no date) | (unknown) | [facility] | (no | (units | (unknown) | | | | | [facility] | value) | unknown) | [facility] | | [facility] | | | | + + + + +---------+ + + + + | Result panel 976 | + + + + + + +---------+ + + | (unknown) | (no date) | (unknown) | [facility] | (no | (units | (unknown) | | | | | [facility] | value) | unknown) | | | | | [facility] | | | | + + + + +---------+ + + + + | Result panel 977 | + + + + + + +---------+ + + | (unknown) | (no date) | (unknown) | [facility] | (no | (units | (unknown) | | | | | [facility] | value) | unknown) | | | | | [facility] | | | | + + + + +---------+ + + + + | Result panel 978 | + + + + + + +---------+ + + | (unknown) | (no date) | (unknown) | [facility] | (no | (units | (unknown) | | | | | [facility] | value) | unknown) | | | | | [facility] | | | | + + + + +---------+ + + + + | Result panel 979 | + + + + + + +---------+ + + | (unknown) | (no date) | (unknown) | [facility] | (no | (units | (unknown) | | | | | [facility] | value) | unknown) | | [facility] | [facility] | | | | + + + + +---------+ + + + + | Result panel 980 | + + + + + + +---------+ + + | (unknown) | (no date) | (unknown) | [facility] | (no | (units | (unknown) | | | | | [facility] | value) | unknown) | [facility] | [facility] | | | | + + + + +---------+ + + + + | Result panel 981 | + + + + + + +---------+ + + | (unknown) | (no date) | (unknown) | [facility] | (no | (units | (unknown) | | | | | [facility] | value) | unknown) | [facility] | | [facility] | | | | + + + + +---------+ + + + + | Result panel 982 | + + + + + + +---------+ + + | (unknown) | (no date) | (unknown) | [facility] | (no | (units | (unknown) | | | | | [facility] | value) | unknown) | | [facility] | [facility] | | | | + + + + +---------+ + + + + | Result panel 983 | + + + + + + +---------+ + + | (unknown) | (no date) | (unknown) | [facility] | (no | (units | (unknown) | | | | | [facility] | value) | unknown) | | | | | [facility] | | | | + + + + +---------+ + + + + | Result panel 984 | + + + + + + +---------+ + + | (unknown) | (no date) | (unknown) | [facility] | (no | (units | (unknown) | | | | | [facility] | value) | unknown) | [facility] | | [facility] | | | | + + + + +---------+ + + + + | Result panel 985 | + + + + + + +---------+ + + | (unknown) | (no date) | (unknown) | [facility] | (no | (units | (unknown) | | | | | [facility] | value) | unknown) | [facility] | | [facility] | | | | + + + + +---------+ + + + + | Result panel 986 | + + + + + + +---------+ + + | (unknown) | (no date) | (unknown) | [facility] | (no | (units | (unknown) | | | | | [facility] | value) | unknown) | | | | [facility] | | | | + + + + +---------+ + + + + | Result panel 987 | + + + + + + +---------+ + + | (unknown) | (no date) | (unknown) | [facility] | (no | (units | (unknown) | | | | | [facility] | value) | unknown) | | | | [facility] | | | | + + + + +---------+ + + + + | Result panel 988 | + + + + + + +---------+ + + | (unknown) | (no date) | (unknown) | [facility] | (no | (units | (unknown) | | | | | [facility] | value) | unknown) | | | | [facility] | | | | + + + + +---------+ + + + + | Result panel 989 | + + + + + + +---------+ + + | (unknown) | (no date) | (unknown) | [facility] | (no | (units | (unknown) | | | | | [facility] | value) | unknown) | | | | [facility] | | | | + + + + +---------+ + + + + | Result panel 990 | + + + + + + +---------+ + + | (unknown) | (no date) | (unknown) | [facility] | (no | (units | (unknown) | | | | | [facility] | value) | unknown) | | | | [facility] | | | | + + + + +---------+ + + + + | Result panel 991 | + + + + + + +---------+ + + | (unknown) | (no date) | (unknown) | [facility] | (no | (units | (unknown) | | | | | [facility] | value) | unknown) | | | | | [facility] | | | | + + + + +---------+ + + + + | Result panel 992 | + + + + + + +---------+ + + | (unknown) | (no date) | (unknown) | [facility] | (no | (units | (unknown) | | | | | [facility] | value) | unknown) | | | | [facility] | | | | + + + + +---------+ + + + + | Result panel 993 | + + + + + + +---------+ + + | (unknown) | (no date) | (unknown) | [facility] | (no | (units | (unknown) | | | | | [facility] | value) | unknown) | | | | [facility] | | | | + + + + +---------+ + + + + | Result panel 994 | + + + + + + +---------+ + + | (unknown) | (no date) | (unknown) | [facility] | (no | (units | (unknown) | | | | | [facility] | value) | unknown) | [facility] | [facility] | | | | + + + + +---------+ + + + + | Result panel 995 | + + + + + + +---------+ + + | (unknown) | (no date) | (unknown) | [facility] | (no | (units | (unknown) | | | | | [facility] | value) | unknown) | [facility] | | | [facility] | | | | + + + + +---------+ + + + + | Result panel 996 | + + + + + + +---------+ + + | (unknown) | (no date) | (unknown) | [facility] | (no | (units | (unknown) | | | | | [facility] | value) | unknown) | | | | | [facility] | | | | + + + + +---------+ + + + + | Result panel 997 | + + + + + + +---------+ + + | (unknown) | (no date) | (unknown) | [facility] | (no | (units | (unknown) | | | | | [facility] | value) | unknown) | [facility] | | [facility] | | | | + + + + +---------+ + + + + | Result panel 998 | + + + + + + +---------+ + + | (unknown) | (no date) | (unknown) | [facility] | (no | (units | (unknown) | | | | | [facility] | value) | unknown) | | | | [facility] | | | | + + + + +---------+ + + + + | Result panel 999 | + + + + + + +---------+ + + | (unknown) | (no date) | (unknown) | [facility] | (no | (units | (unknown) | | | | | [facility] | value) | unknown) | | | | | [facility] | | | | + + + + +---------+ + + + + | Result panel 1000 | + + + + + + +---------+ + + | (unknown) | (no date) | (unknown) | [facility] | (no | (units | (unknown) | | | | | [facility] | value) | unknown) | | | | [facility] | | | | + + + + +---------+ + + + + | Result panel 1001 | + + + + + + +---------+ + + | (unknown) | (no date) | (unknown) | [facility] | (no | (units | (unknown) | | | | | [facility] | value) | unknown) | | | | | [facility] | | | | + + + + +---------+ + + + + | Result panel 1002 | + + + + + + +---------+ + + | (unknown) | (no date) | (unknown) | [facility] | (no | (units | (unknown) | | | | | [facility] | value) | unknown) | | | | [facility] | | | | + + + + +---------+ + + + + | Result panel 1003 | + + + + + + +---------+ + + | (unknown) | (no date) | (unknown) | [facility] | (no | (units | (unknown) | | | | | [facility] | value) | unknown) | | | | [facility] | | | | + + + + +---------+ + + + + | Result panel 1004 | + + + + + + +---------+ + + | (unknown) | (no date) | (unknown) | [facility] | (no | (units | (unknown) | | | | | [facility] | value) | unknown) | | | | | [facility] | | | | + + + + +---------+ + + + + | Result panel 1005 | + + + + + + +---------+ + + | (unknown) | (no date) | (unknown) | [facility] | (no | (units | (unknown) | | | | | [facility] | value) | unknown) | | | | | [facility] | | | | + + + + +---------+ + + + + | Result panel 1006 | + + + + + + +---------+ + + | (unknown) | (no date) | (unknown) | [facility] | (no | (units | (unknown) | | | | | [facility] | value) | unknown) | | [facility] | [facility] | | | | + + + + +---------+ + + + + | Result panel 1007 | + + + + + + +---------+ + + | (unknown) | (no date) | (unknown) | [facility] | (no | (units | (unknown) | | | | | [facility] | value) | unknown) | | | | | [facility] | | | | + + + + +---------+ + + + + | Result panel 1008 | + + + + + + +---------+ + + | (unknown) | (no date) | (unknown) | [facility] | (no | (units | (unknown) | | | | | [facility] | value) | unknown) | | | | [facility] | | | | + + + + +---------+ + + + + | Result panel 1009 | + + + + + + +---------+ + + | (unknown) | (no date) | (unknown) | [facility] | (no | (units | (unknown) | | | | | [facility] | value) | unknown) | | | | | [facility] | | | | + + + + +---------+ + + + + | Result panel 1010 | + + + + + + +---------+ + + | (unknown) | (no date) | (unknown) | [facility] | (no | (units | (unknown) | | | | | [facility] | value) | unknown) | | | | | [facility] | | | | + + + + +---------+ + + + + | Result panel 1011 | + + + + + + +---------+ + + | (unknown) | (no date) | (unknown) | [facility] | (no | (units | (unknown) | | | | | [facility] | value) | unknown) | | [facility] | [facility] | | | | + + + + +---------+ + + + + | Result panel 1012 | + + + + + + +---------+ + + | (unknown) | (no date) | (unknown) | [facility] | (no | (units | (unknown) | | | | | [facility] | value) | unknown) | | | | | [facility] | | | | + + + + +---------+ + + + + | Result panel 1013 | + + + + + + +---------+ + + | (unknown) | (no date) | (unknown) | [facility] | (no | (units | (unknown) | | | | | [facility] | value) | unknown) | | [facility] | [facility] | | | | + + + + +---------+ + + + + | Result panel 1014 | + + + + + + +---------+ + + | (unknown) | (no date) | (unknown) | [facility] | (no | (units | (unknown) | | | | | [facility] | value) | unknown) | [facility] | | [facility] | | | | + + + + +---------+ + + + + | Result panel 1015 | + + + + + + +---------+ + + | (unknown) | (no date) | (unknown) | [facility] | (no | (units | (unknown) | | | | | [facility] | value) | unknown) | | | | | [facility] | | | | + + + + +---------+ + + + + | Result panel 1016 | + + + + + + +---------+ + + | (unknown) | (no date) | (unknown) | [facility] | (no | (units | (unknown) | | | | | [facility] | value) | unknown) | | | | [facility] | | | | + + + + +---------+ + + + + | Result panel 1017 | + + + + + + +---------+ + + | (unknown) | (no date) | (unknown) | [facility] | (no | (units | (unknown) | | | | | [facility] | value) | unknown) | | | | | [facility] | | | | + + + + +---------+ + + + + | Result panel 1018 | + + + + + + +---------+ + + | (unknown) | (no date) | (unknown) | [facility] | (no | (units | (unknown) | | | | | [facility] | value) | unknown) | | | | | [facility] | | | | + + + + +---------+ + + + + | Result panel 1019 | + + + + + + +---------+ + + | (unknown) | (no date) | (unknown) | [facility] | (no | (units | (unknown) | | | | | [facility] | value) | unknown) | | [facility] | | [facility] | | | | + + + + +---------+ + + + + | Result panel 1020 | + + + + + + +---------+ + + | (unknown) | (no date) | (unknown) | [facility] | (no | (units | (unknown) | | | | | [facility] | value) | unknown) | | | | | [facility] | | | | + + + + +---------+ + + + + | Result panel 1021 | + + + + + + +---------+ + + | (unknown) | (no date) | (unknown) | [facility] | (no | (units | (unknown) | | | | | [facility] | value) | unknown) | | [facility] | [facility] | | | | + + + + +---------+ + + + + | Result panel 1022 | + + + + + + +---------+ + + | (unknown) | (no date) | (unknown) | [facility] | (no | (units | (unknown) | | | | | [facility] | value) | unknown) | | | | [facility] | | | | + + + + +---------+ + + + + | Result panel 1023 | + + + + + + +---------+ + + | (unknown) | (no date) | (unknown) | [facility] | (no | (units | (unknown) | | | | | [facility] | value) | unknown) | | | | | [facility] | | | | + + + + +---------+ + + + + | Result panel 1024 | + + + + + + +---------+ + + | (unknown) | (no date) | (unknown) | [facility] | (no | (units | (unknown) | | | | | [facility] | value) | unknown) | | | | | [facility] | | | | + + + + +---------+ + + + + | Result panel 1025 | + + + + + + +---------+ + + | (unknown) | (no date) | (unknown) | [facility] | (no | (units | (unknown) | | | | | [facility] | value) | unknown) | | | | | [facility] | | | | + + + + +---------+ + + + + | Result panel 1026 | + + + + + + +---------+ + + | (unknown) | (no date) | (unknown) | [facility] | (no | (units | (unknown) | | | | | [facility] | value) | unknown) | | | | [facility] | | | | + + + + +---------+ + + + + | Result panel 1027 | + + + + + + +---------+ + + | (unknown) | (no date) | (unknown) | [facility] | (no | (units | (unknown) | | | | | [facility] | value) | unknown) | | [facility] | [facility] | | | | + + + + +---------+ + + + + | Result panel 1028 | + + + + + + +---------+ + + | (unknown) | (no date) | (unknown) | [facility] | (no | (units | (unknown) | | | | | [facility] | value) | unknown) | | | | [facility] | | | | + + + + +---------+ + + + + | Result panel 1029 | + + + + + + +---------+ + + | (unknown) | (no date) | (unknown) | [facility] | (no | (units | (unknown) | | | | | [facility] | value) | unknown) | | [facility] | [facility] | | | | + + + + +---------+ + + + + | Result panel 1030 | + + + + + + +---------+ + + | (unknown) | (no date) | (unknown) | [facility] | (no | (units | (unknown) | | | | | [facility] | value) | unknown) | | | | | [facility] | | | | + + + + +---------+ + + + + | Result panel 1031 | + + + + + + +---------+ + + | (unknown) | (no date) | (unknown) | [facility] | (no | (units | (unknown) | | | | | [facility] | value) | unknown) | | | | | [facility] | | | | + + + + +---------+ + + + + | Result panel 1032 | + + + + + + +---------+ + + | (unknown) | (no date) | (unknown) | [facility] | (no | (units | (unknown) | | | | | [facility] | value) | unknown) | [facility] | | | | [facility] | | | | + + + + +---------+ + + + + | Result panel 1033 | + + + + + + +---------+ + + | (unknown) | (no date) | (unknown) | [facility] | (no | (units | (unknown) | | | | | [facility] | value) | unknown) | | | | | | [facility] | | | | + + + + +---------+ + + + + | Result panel 1034 | + + + + + + +---------+ + + | (unknown) | (no date) | (unknown) | [facility] | (no | (units | (unknown) | | | | | [facility] | value) | unknown) | | | | | [facility] | | | | + + + + +---------+ + + + + | Result panel 1035 | + + + + + + +---------+ + + | (unknown) | (no date) | (unknown) | [facility] | (no | (units | (unknown) | | | | | [facility] | value) | unknown) | | | | | [facility] | | | | + + + + +---------+ + + + + | Result panel 1036 | + + + + + + +---------+ + + | (unknown) | (no date) | (unknown) | [facility] | (no | (units | (unknown) | | | | | [facility] | value) | unknown) | | | | | [facility] | | | | + + + + +---------+ + + + + | Result panel 1037 | + + + + + + +---------+ + + | (unknown) | (no date) | (unknown) | [facility] | (no | (units | (unknown) | | | | | [facility] | value) | unknown) | | | | | [facility] | | | | + + + + +---------+ + + + + | Result panel 1038 | + + + + + + +---------+ + + | (unknown) | (no date) | (unknown) | [facility] | (no | (units | (unknown) | | | | | [facility] | value) | unknown) | | | | | [facility] | | | | + + + + +---------+ + + + + | Result panel 1039 | + + + + + + +---------+ + + | (unknown) | (no date) | (unknown) | [facility] | (no | (units | (unknown) | | | | | [facility] | value) | unknown) | | | | | | [facility] | | | | + + + + +---------+ + + + + | Result panel 1040 | + + + + + + +---------+ + + | (unknown) | (no date) | (unknown) | [facility] | (no | (units | (unknown) | | | | | [facility] | value) | unknown) | | | | | | [facility] | | | | + + + + +---------+ + + + + | Result panel 1041 | + + + + + + +---------+ + + | (unknown) | (no date) | (unknown) | [facility] | (no | (units | (unknown) | | | | | [facility] | unknown) | | | | | [facility] | | | | + + + + +---------+ + + + + | Result panel 1042 | + + + + + + +---------+ + + | (unknown) | (no date) | (unknown) | [facility] | (no | (units | (unknown) | | | | | [facility] value) | unknown) | | | [facility] | | | | + + + + +---------+ + + + + | Result panel 1043 | + + + + + + +---------+ + + | (unknown) | (no date) | (unknown) | [facility] | (no | (units | (unknown) | | | | | [facility] | unknown) | [facility] | | | | + + + + +---------+ + + + + | Result panel 1044 | + + + + + + +---------+ + + | (unknown) | (no date) | (unknown) | [facility] | (no | (units | (unknown) | | | | | [facility] | unknown) | [facility] | | | | + + + + +---------+ + + + + | Result panel 1045 | + + + + + + +---------+ + + | (unknown) | (no date) | (unknown) | [facility] | (no | (units | (unknown) | | | | | [facility]) | unknown) | [facility] | | | | + + + + +---------+ + + + + | Result panel 1046 | + + + + + + +---------+ + + | (unknown) | (no date) | (unknown) | [facility] | (no | (units | (unknown) | | | | | [facility]) | unknown) | [facility] | | | | + + + + +---------+ + + + + | Result panel 1047 | + + + + + + +---------+ + + | (unknown) | (no date) | (unknown) | [facility] | (no | (units | (unknown) | | | | | [facility]) | unknown) | [facility] | | | | + + + + +---------+ + + + + | Result panel 1048 | + + + + + + +---------+ + + | (unknown) | (no date) | (unknown) | [facility] | (no | (units | (unknown) | | | | | [facility] value) | unknown) | | [facility] | | | | + + + + +---------+ + + + + | Result panel 1049 | + + + + + + +---------+ + + | (unknown) | (no date) | (unknown) | [facility] | (no | (units | (unknown) | | | | | [facility]) | unknown) | [facility] | | | | + + + + +---------+ + + + + | Result panel 1050 | + + + + + + +---------+ + + | (unknown) | (no date) | (unknown) | [facility] | (no | (units | (unknown) | | | | | [facility] | unknown) | [facility] | | | | + + + + +---------+ + + + + | Result panel 1051 | + + + + + + +---------+ + + | (unknown) | (no date) | (unknown) | [facility] | (no | (units | (unknown) | | | | | [facility]) | unknown) | [facility] | | | | + + + + +---------+ + + + + | Result panel 1052 | + + + + + + +---------+ + + | (unknown) | (no date) | (unknown) | [facility] | (no | (units | (unknown) | | | | | [facility]) | unknown) | [facility] | | | | + + + + +---------+ + + + + | Result panel 1053 | + + + + + + +---------+ + + | (unknown) | (no date) | (unknown) | [facility] | (no | (units | (unknown) | | | | | [facility] | unknown) | [facility] | | | | + + + + +---------+ + + + + | Result panel 1054 | + + + + + + +---------+ + + | (unknown) | (no date) | (unknown) | [facility] | (no | (units | (unknown) | | | | | [facility] | unknown) | [facility] | | | | + + + + +---------+ + + + + | Result panel 1055 | + + + + + + +---------+ + + | (unknown) | (no date) | (unknown) | [facility] | (no | (units | (unknown) | | | | | [facility] | unknown) | [facility] | | | | + + + + +---------+ + + + + | Result panel 1056 | + + + + + + +---------+ + + | (unknown) | (no date) | (unknown) | [facility] | (no | (units | (unknown) | | | | | [facility] value) | unknown) | [facility] | [facility] | | | | + + + + +---------+ + + + + | Result panel 1057 | + + + + + + +---------+ + + | (unknown) | (no date) | (unknown) | [facility] | (no | (units | (unknown) | | | | | [facility] value) | unknown) | | [facility] | | | | + + + + +---------+ + + + + | Result panel 1058 | + + + + + + +---------+ + + | (unknown) | (no date) | (unknown) | [facility] | (no | (units | (unknown) | | | | | [facility] value) | unknown) | [facility] | [facility] | | | | + + + + +---------+ + + + + | Result panel 1059 | + + + + + + +---------+ + + | (unknown) | (no date) | (unknown) | [facility] | (no | (units | (unknown) | | | | | [facility] value) | unknown) | [facility] | [facility] | | | | + + + + +---------+ + + + + | Result panel 1060 | + + + + + + +---------+ + + | (unknown) | (no date) | (unknown) | [facility] | (no | (units | (unknown) | | | | | [facility] value) | unknown) | | | [facility] | | | | + + + + +---------+ + + + + | Result panel 1061 | + + + + + + +---------+ + + | (unknown) | (no date) | (unknown) | [facility] | (no | (units | (unknown) | | | | | [facility] value[facility] | unknown) | | | [facility] | | | | + + + + +---------+ + + + + | Result panel 1062 | + + + + + + +---------+ + + | (unknown) | (no date) | (unknown) | [facility] | (no | (units | (unknown) | | | | | [facility] value) | unknown) | [facility] | [facility] | | | | + + + + +---------+ + + + + | Result panel 1063 | + + + + + + +---------+ + + | (unknown) | (no date) | (unknown) | [facility] | (no | (units | (unknown) | | | | | [facility] value) | unknown) | | | [facility] | | | | + + + + +---------+ + + + + | Result panel 1064 | + + + + + + +---------+ + + | (unknown) | (no date) | (unknown) | [facility] | (no | (units | (unknown) | | | | | [facility] value) | unknown) | [facility] | [facility] | | | | + + + + +---------+ + + + + | Result panel 1065 | + + + + + + +---------+ + + | (unknown) | (no date) | (unknown) | [facility] | (no | (units | (unknown) | | | | | [facility] value) | unknown) | | | [facility] | | | | + + + + +---------+ + + + + | Result panel 1066 | + + + + + + +---------+ + + | (unknown) | (no date) | (unknown) | [facility] | (no | (units | (unknown) | | | | | [facility] value) | unknown) | | | [facility] | | | | + + + + +---------+ + + + + | Result panel 1067 | + + + + + + +---------+ + + | (unknown) | (no date) | (unknown) | [facility] | (no | (units | (unknown) | | | | | [facility] value) | unknown) | | | [facility] | | | | + + + + +---------+ + + + + | Result panel 1068 | + + + + + + +---------+ + + | (unknown) | (no date) | (unknown) | [facility] | (no | (units | (unknown) | | | | | [facility] value) | unknown) | [facility] | [facility] | | | | + + + + +---------+ + + + + | Result panel 1069 | + + + + + + +---------+ + + | (unknown) | (no date) | (unknown) | [facility] | (no | (units | (unknown) | | | | | [facility] value) | unknown) | [facility] | | | | + + + + +---------+ + + + + | Result panel 1070 | + + + + + + +---------+ + + | (unknown) | (no date) | (unknown) | [facility] | (no | (units | (unknown) | | | | | [facility] value) | unknown) | | | [facility] | | | | + + + + +---------+ + + + + | Result panel 1071 | + + + + + + +---------+ + + | (unknown) | (no date) | (unknown) | [facility] | (no | (units | (unknown) | | | | | [facility] value) | unknown) | | [facility] | | | | + + + + +---------+ + + + + | Result panel 1072 | + + + + + + +---------+ + + | (unknown) | (no date) | (unknown) | [facility] | (no | (units | (unknown) | | | | | [facility] value) | unknown) | | [facility] | | | | + + + + +---------+ + + + + | Result panel 1073 | + + + + + + +---------+ + + | (unknown) | (no date) | (unknown) | [facility] | (no | (units | (unknown) | | | | | [facility] value) | unknown) | [facility] | | | | + + + + +---------+ + + + + | Result panel 1074 | + + + + + + +---------+ + + | (unknown) | (no date) | (unknown) | [facility] | (no | (units | (unknown) | | | | | [facility] value) | unknown) | | | [facility] | | | | + + + + +---------+ + + + + | Result panel 1075 | + + + + + + +---------+ + + | (unknown) | (no date) | (unknown) | [facility] | (no | (units | (unknown) | | | | | [facility] value) | unknown) | | [facility] | | | | + + + + +---------+ + + + + | Result panel 1076 | + + + + + + +---------+ + + | (unknown) | (no date) | (unknown) | [facility] | (no | (units | (unknown) | | | | | [facility] value) | unknown) | [facility] | | [facility] | | | | + + + + +---------+ + + + + | Result panel 1077 | + + + + + + +---------+ + + | (unknown) | (no date) | (unknown) | [facility] | (no | (units | (unknown) | | | | | [facility] value) | unknown) | | | [facility] | | | | + + + + +---------+ + + + + | Result panel 1078 | + + + + + + +---------+ + + | (unknown) | (no date) | (unknown) | [facility] | (no | (units | (unknown) | | | | | [facility] value) | unknown) | | | [facility] | | | | + + + + +---------+ + + + + | Result panel 1079 | + + + + + + +---------+ + + | (unknown) | (no date) | (unknown) | [facility] | (no | (units | (unknown) | | | | | [facility] value) | unknown) | [facility] | [facility] | | | | + + + + +---------+ + + + + | Result panel 1080 | + + + + + + +---------+ + + | (unknown) | (no date) | (unknown) | [facility] | (no | (units | (unknown) | | | | | [facility] | value) | unknown) | | | | [facility] | | | | + + + + +---------+ + + + + | Result panel 1081 | + + + + + + +---------+ + + | (unknown) | (no date) | (unknown) | [facility] | (no | (units | (unknown) | | | | | [facility] value) | unknown) | | | [facility] | | | | + + + + +---------+ + + + + | Result panel 1082 | + + + + + + +---------+ + + | (unknown) | (no date) | (unknown) | [facility] | (no | (units | (unknown) | | | | | [facility] | value) | unknown) | | | [facility] | | | | + + + + +---------+ + + + + | Result panel 1083 | + + + + + + +---------+ + + | (unknown) | (no date) | (unknown) | [facility] | (no | (units | (unknown) | | | | | [facility] | value) | unknown) | | | | [facility] | | | | + + + + +---------+ + + + + | Result panel 1084 | + + + + + + +---------+ + + | (unknown) | (no date) | (unknown) | [facility] | (no | (units | (unknown) | | | | | [facility] | value) | unknown) | | | | [facility] | | | | + + + + +---------+ + + + + | Result panel 1085 | + + + + + + +---------+ + + | (unknown) | (no date) | (unknown) | [facility] | (no | (units | (unknown) | | | | | [facility] value) | unknown) | | | [facility] | | | | + + + + +---------+ + + + + | Result panel 1086 | + + + + + + +---------+ + + | (unknown) | (no date) | (unknown) | [facility] | (no | (units | (unknown) | | | | | [facility] value) | unknown) | | | | [facility] | | | | + + + + +---------+ + + + + | Result panel 1087 | + + + + + + +---------+ + + | (unknown) | (no date) | (unknown) | [facility] | (no | (units | (unknown) | | | | | [facility] value) | unknown) | [facility] | [facility] | | | | + + + + +---------+ + + + + | Result panel 1088 | + + + + + + +---------+ + + | (unknown) | (no date) | (unknown) | [facility] | (no | (units | (unknown) | | | | | [facility] value) | unknown) | | | | [facility] | | | | + + + + +---------+ + + + + | Result panel 1089 | + + + + + + +---------+ + + | (unknown) | (no date) | (unknown) | [facility] | (no | (units | (unknown) | | | | | [facility] value) | unknown) | | [facility] | | | | + + + + +---------+ + + + + | Result panel 1090 | + + + + + + +---------+ + + | (unknown) | (no date) | (unknown) | [facility] | (no | (units | (unknown) | | | | | [facility] value) | unknown) | [facility] | | | | + + + + +---------+ + + + + | Result panel 1091 | + + + + + + +---------+ + + | (unknown) | (no date) | (unknown) | [facility] | (no | (units | (unknown) | | | | | [facility] value) | unknown) | | | [facility] | | | | + + + + +---------+ + + + + | Result panel 1092 | + + + + + + +---------+ + + | (unknown) | (no date) | (unknown) | [facility] | (no | (units | (unknown) | | | | | [facility] value) | unknown) | [facility] | [facility] | | | | + + + + +---------+ + + + + | Result panel 1093 | + + + + + + +---------+ + + | (unknown) | (no date) | (unknown) | [facility] | (no | (units | (unknown) | | | | | [facility] value) | unknown) | | | [facility] | | | | + + + + +---------+ + + + + | Result panel 1094 | + + + + + + +---------+ + + | (unknown) | (no date) | (unknown) | [facility] | (no | (units | (unknown) | | | | | [facility] value) | unknown) | | | [facility] | | | | + + + + +---------+ + + + + | Result panel 1095 | + + + + + + +---------+ + + | (unknown) | (no date) | (unknown) | [facility] | (no | (units | (unknown) | | | | | [facility] value) | unknown) | [facility] | [facility] | | | | + + + + +---------+ + + + + | Result panel 1096 | + + + + + + +---------+ + + | (unknown) | (no date) | (unknown) | [facility] | (no | (units | (unknown) | | | | | [facility] value) | unknown) | | | [facility] | | | | + + + + +---------+ + + + + | Result panel 1097 | + + + + + + +---------+ + + | (unknown) | (no date) | (unknown) | [facility] | (no | (units | (unknown) | | | | | [facility] value) | unknown) | [facility] | [facility] | | | | + + + + +---------+ + + + + | Result panel 1098 | + + + + + + +---------+ + + | (unknown) | (no date) | (unknown) | [facility] | (no | (units | (unknown) | | | | | [facility] value) | unknown) | [facility] | | | | + + + + +---------+ + + + + | Result panel 1099 | + + + + + + +---------+ + + | (unknown) | (no date) | (unknown) | [facility] | (no | (units | (unknown) | | | | | [facility] value) | unknown) | [facility] | | | | + + + + +---------+ + + + + | Result panel 1100 | + + + + + + +---------+ + + | (unknown) | (no date) | (unknown) | [facility] | (no | (units | (unknown) | | | | | [facility] value) | unknown) | [facility] | [facility] | | | | + + + + +---------+ + + + + | Result panel 1101 | + + + + + + +---------+ + + | (unknown) | (no date) | (unknown) | [facility] | (no | (units | (unknown) | | | | | [facility] value) | unknown) | | [facility] | | | | + + + + +---------+ + + + + | Result panel 1102 | + + + + + + +---------+ + + | (unknown) | (no date) | (unknown) | [facility] | (no | (units | (unknown) | | | | | [facility] value) | unknown) | | | [facility] | | | | + + + + +---------+ + + + + | Result panel 1103 | + + + + + + +---------+ + + | (unknown) | (no date) | (unknown) | [facility] | (no | (units | (unknown) | | | | | [facility] value) | unknown) | | | [facility] | | | | + + + + +---------+ + + + + | Result panel 1104 | + + + + + + +---------+ + + | (unknown) | (no date) | (unknown) | [facility] | (no | (units | (unknown) | | | | | [facility] value) | unknown) | [facility] | [facility] | | | | + + + + +---------+ + + + + | Result panel 1105 | + + + + + + +---------+ + + | (unknown) | (no date) | (unknown) | [facility] | (no | (units | (unknown) | | | | | [facility] value) | unknown) | [facility] | | | | + + + + +---------+ + + + + | Result panel 1106 | + + + + + + +---------+ + + | (unknown) | (no date) | (unknown) | [facility] | (no | (units | (unknown) | | | | | [facility] value) | unknown) | [facility] | | [facility] | | | | + + + + +---------+ + + + + | Result panel 1107 | + + + + + + +---------+ + + | (unknown) | (no date) | (unknown) | [facility] | (no | (units | (unknown) | | | | | [facility] value) | unknown) | [facility] | [facility] | | | | + + + + +---------+ + + + + | Result panel 1108 | + + + + + + +---------+ + + | (unknown) | (no date) | (unknown) | [facility] | (no | (units | (unknown) | | | | | [facility] value) | unknown) | | | [facility] | | | | + + + + +---------+ + + + + | Result panel 1109 | + + + + + + +---------+ + + | (unknown) | (no date) | (unknown) | [facility] | (no | (units | (unknown) | | | | | [facility] value) | unknown) | | | [facility] | | | | + + + + +---------+ + + + + | Result panel 1110 | + + + + + + +---------+ + + | (unknown) | (no date) | (unknown) | [facility] | (no | (units | (unknown) | | | | | [facility] value) | unknown) | | | [facility] | | | | + + + + +---------+ + + + + | Result panel 1111 | + + + + + + +---------+ + + | (unknown) | (no date) | (unknown) | [facility] | (no | (units | (unknown) | | | | | [facility] value) | unknown) | | | [facility] | | | | + + + + +---------+ + + + + | Result panel 1112 | + + + + + + +---------+ + + | (unknown) | (no date) | (unknown) | [facility] | (no | (units | (unknown) | | | | | [facility] value) | unknown) | [facility] | [facility] | | | | + + + + +---------+ + + + + | Result panel 1113 | + + + + + + +---------+ + + | (unknown) | (no date) | (unknown) | [facility] | (no | (units | (unknown) | | | | | [facility] value) | unknown) | | [facility] | | | | + + + + +---------+ + + + + | Result panel 1114 | + + + + + + +---------+ + + | (unknown) | (no date) | (unknown) | [facility] | (no | (units | (unknown) | | | | | [facility] value) | unknown) | | [facility] | | | | + + + + +---------+ + + + + | Result panel 1115 | + + + + + + +---------+ + + | (unknown) | (no date) | (unknown) | [facility] | (no | (units | (unknown) | | | | | [facility] value) | unknown) | | | [facility] | | | | + + + + +---------+ + + + + | Result panel 1116 | + + + + + + +---------+ + + | (unknown) | (no date) | (unknown) | [facility] | (no | (units | (unknown) | | | | | [facility] value) | unknown) | [facility] | [facility] | | | | + + + + +---------+ + + + + | Result panel 1117 | + + + + + + +---------+ + + | (unknown) | (no date) | (unknown) | [facility] | (no | (units | (unknown) | | | | | [facility] value) | unknown) | [facility] | | | | + + + + +---------+ + + + + | Result panel 1118 | + + + + + + +---------+ + + | (unknown) | (no date) | (unknown) | [facility] | (no | (units | (unknown) | | | | | [facility] value) | unknown) | | [facility] | | | | + + + + +---------+ + + + + | Result panel 1119 | + + + + + + +---------+ + + | (unknown) | (no date) | (unknown) | [facility] | (no | (units | (unknown) | | | | | [facility] | value) | unknown) | | | [facility] | | | | + + + + +---------+ + + + + | Result panel 1120 | + + + + + + +---------+ + + | (unknown) | (no date) | (unknown) | [facility] | (no | (units | (unknown) | | | | | [facility] value) | unknown) | | [facility] | [facility] | | | | + + + + +---------+ + + + + | Result panel 1121 | + + + + + + +---------+ + + | (unknown) | (no date) | (unknown) | [facility] | (no | (units | (unknown) | | | | | [facility] | value) | unknown) | | | | [facility] | | | | + + + + +---------+ + + + + | Result panel 1122 | + + + + + + +---------+ + + | (unknown) | (no date) | (unknown) | [facility] | (no | (units | (unknown) | | | | | [facility] value) | unknown) | | | [facility] | | | | + + + + +---------+ + + + + | Result panel 1123 | + + + + + + +---------+ + + | (unknown) | (no date) | (unknown) | [facility] | (no | (units | (unknown) | | | | | [facility] | value) | unknown) | | | [facility] | | | | + + + + +---------+ + + + + | Result panel 1124 | + + + + + + +---------+ + + | (unknown) | (no date) | (unknown) | [facility] | (no | (units | (unknown) | | | | | [facility] | value) | unknown) | | | [facility] | | | | + + + + +---------+ + + + + | Result panel 1125 | + + + + + + +---------+ + + | (unknown) | (no date) | (unknown) | [facility] | (no | (units | (unknown) | | | | | [facility] | value) | unknown) | | | | [facility] | | | | + + + + +---------+ + + + + | Result panel 1126 | + + + + + + +---------+ + + | (unknown) | (no date) | (unknown) | [facility] | (no | (units | (unknown) | | | | | [facility] | value) | unknown) | | | | [facility] | | | | + + + + +---------+ + + + + | Result panel 1127 | + + + + + + +---------+ + + | (unknown) | (no date) | (unknown) | [facility] | (no | (units | (unknown) | | | | | [facility] | value) | unknown) | | | | [facility] | | | | + + + + +---------+ + + + + | Result panel 1128 | + + + + + + +---------+ + + | (unknown) | (no date) | (unknown) | [facility] | (no | (units | (unknown) | | | | | [facility] | value) | unknown) | | | | [facility] | | | | + + + + +---------+ + + + + | Result panel 1129 | + + + + + + +---------+ + + | (unknown) | (no date) | (unknown) | [facility] | (no | (units | (unknown) | | | | | [facility] | value) | unknown) | | | | [facility] | | | | + + + + +---------+ + + + + | Result panel 1130 | + + + + + + +---------+ + + | (unknown) | (no date) | (unknown) | [facility] | (no | (units | (unknown) | | | | | [facility] | value) | unknown) | | [facility] | | | | + + + + +---------+ + + + + | Result panel 1131 | + + + + + + +---------+ + + | (unknown) | (no date) | (unknown) | [facility] | (no | (units | (unknown) | | | | | [facility] | value) | unknown) | | | [facility] | | | | + + + + +---------+ + + + + | Result panel 1132 | + + + + + + +---------+ + + | (unknown) | (no date) | (unknown) | [facility] | (no | (units | (unknown) | | | | | [facility] value) | unknown) | | | | [facility] | | | | + + + + +---------+ + + + + | Result panel 1133 | + + + + + + +---------+ + + | (unknown) | (no date) | (unknown) | [facility] | (no | (units | (unknown) | | | | | [facility] | value) | unknown) | | | | [facility] | | | | + + + + +---------+ + + + + | Result panel 1134 | + + + + + + +---------+ + + | (unknown) | (no date) | (unknown) | [facility] | (no | (units | (unknown) | | | | | [facility] value) | unknown) | | | | [facility] | | | | + + + + +---------+ + + + + | Result panel 1135 | + + + + + + +---------+ + + | (unknown) | (no date) | (unknown) | [facility] | (no | (units | (unknown) | | | | | [facility] value) | unknown) | | | [facility] | | | | + + + + +---------+ + + + + | Result panel 1136 | + + + + + + +---------+ + + | (unknown) | (no date) | (unknown) | [facility] | (no | (units | (unknown) | | | | | [facility] | value) | unknown) | | [facility] | | | | + + + + +---------+ + + + + | Result panel 1137 | + + + + + + +---------+ + + | (unknown) | (no date) | (unknown) | [facility] | (no | (units | (unknown) | | | | | [facility] value) | unknown) | [facility] | [facility] | | | | + + + + +---------+ + + + + | Result panel 1138 | + + + + + + +---------+ + + | (unknown) | (no date) | (unknown) | [facility] | (no | (units | (unknown) | | | | | [facility] value) | unknown) | | [facility] | | | | + + + + +---------+ + + + + | Result panel 1139 | + + + + + + +---------+ + + | (unknown) | (no date) | (unknown) | [facility] | (no | (units | (unknown) | | | | | [facility] value) | unknown) | | | | [facility] | | | | + + + + +---------+ + + + + | Result panel 1140 | + + + + + + +---------+ + + | (unknown) | (no date) | (unknown) | [facility] | (no | (units | (unknown) | | | | | [facility] value) | unknown) | | | [facility] | | | | + + + + +---------+ + + + + | Result panel 1141 | + + + + + + +---------+ + + | (unknown) | (no date) | (unknown) | [facility] | (no | (units | (unknown) | | | | | [facility] value) | unknown) | | [facility] | | | | + + + + +---------+ + + + + | Result panel 1142 | + + + + + + +---------+ + + | (unknown) | (no date) | (unknown) | [facility] | (no | (units | (unknown) | | | | | [facility] value) | unknown) | | | [facility] | | | | + + + + +---------+ + + + + | Result panel 1143 | + + + + + + +---------+ + + | (unknown) | (no date) | (unknown) | [facility] | (no | (units | (unknown) | | | | | [facility] | value) | unknown) | | | | | | [facility] | | | | + + + + +---------+ + + + + | Result panel 1144 | + + + + + + +---------+ + + | (unknown) | (no date) | (unknown) | [facility] | (no | (units | (unknown) | | | | | [facility] | value) | unknown) | | | | | [facility] | | | | + + + + +---------+ + + + + | Result panel 1145 | + + + + + + +---------+ + + | (unknown) | (no date) | (unknown) | [facility] | (no | (units | (unknown) | | | | | [facility] | value) | unknown) | | | | | [facility] | | | | + + + + +---------+ + + + + | Result panel 1146 | + + + + + + +---------+ + + | (unknown) | (no date) | (unknown) | [facility] | (no | (units | (unknown) | | | | | [facility] | value) | unknown) | | | | | [facility] | | | | + + + + +---------+ + + + + | Result panel 1147 | + + + + + + +---------+ + + | (unknown) | (no date) | (unknown) | [facility] | (no | (units | (unknown) | | | | | [facility] | value) | unknown) | | | | | [facility] | | | | + + + + +---------+ + + + + | Result panel 1148 | + + + + + + +---------+ + + | (unknown) | (no date) | (unknown) | [facility] | (no | (units | (unknown) | | | | | [facility] | value) | unknown) | | | | | | [facility] | | | | + + + + +---------+ + + + + | Result panel 1149 | + + + + + + +---------+ + + | (unknown) | (no date) | (unknown) | [facility] | (no | (units | (unknown) | | | | | [facility] | value) | unknown) | | | | | [facility] | | | | + + + + +---------+ + + + + | Result panel 1150 | + + + + + + +---------+ + + | (unknown) | (no date) | (unknown) | [facility] | (no | (units | (unknown) | | | | | [facility] | value) | unknown) | | | | | | [facility] | | | | + + + + +---------+ + + + + | Result panel 1151 | + + + + + + +---------+ + + | (unknown) | (no date) | (unknown) | [facility] | (no | (units | (unknown) | | | | | [facility] | value) | unknown) | | | | | | [facility] | | | | + + + + +---------+ + + + + | Result panel 1152 | + + + + + + +---------+ + + | (unknown) | (no date) | (unknown) | [facility] | (no | (units | (unknown) | | | | [facility] value) | unknown) | | | [facility] | | | | + + + + +---------+ + + + + | Result panel 1153 | + + + + + + +---------+ + + | (unknown) | (no date) | (unknown) | [facility] | (no | (units | (unknown) | | | | | [facility] | value) | unknown) | | | [facility] | | | | + + + + +---------+ + + + + | Result panel 1154 | + + + + + + +---------+ + + | (unknown) | (no date) | (unknown) | [facility] | (no | (units | (unknown) | | | | | [facility] | value) | unknown) | | | [facility] | | | | + + + + +---------+ + + + + | Result panel 1155 | + + + + + + +---------+ + + | (unknown) | (no date) | (unknown) | [facility] | (no | (units | (unknown) | | | | | [facility] | value) | unknown) | | | [facility] | | | | + + + + +---------+ + + + + | Result panel 1156 | + + + + + + +---------+ + + | (unknown) | (no date) | (unknown) | [facility] | (no | (units | (unknown) | | | | | [facility] | value) | unknown) | | | [facility] | | | | + + + + +---------+ + + + + | Result panel 1157 | + + + + + + +---------+ + + | (unknown) | (no date) | (unknown) | [facility] | (no | (units | (unknown) | | | | | [facility] | value) | unknown) | | | | [facility] | | | | + + + + +---------+ + + + + | Result panel 1158 | + + + + + + +---------+ + + | (unknown) | (no date) | (unknown) | [facility] | (no | (units | (unknown) | | | | | [facility] | value) | unknown) | | | | [facility] | | | | + + + + +---------+ + + + + | Result panel 1159 | + + + + + + +---------+ + + | (unknown) | (no date) | (unknown) | [facility] | (no | (units | (unknown) | | | | | [facility] | value) | unknown) | | | | [facility] | | | | + + + + +---------+ + + + + | Result panel 1160 | + + + + + + +---------+ + + | (unknown) | (no date) | (unknown) | [facility] | (no | (units | (unknown) | | | | | [facility] | value) | unknown) | | | | [facility] | | | | + + + + +---------+ + + + + | Result panel 1161 | + + + + + + +---------+ + + | (unknown) | (no date) | (unknown) | [facility] | (no | (units | (unknown) | | | | | [facility] | value) | unknown) | | | | [facility] | | | | + + + + +---------+ + + + + | Result panel 1162 | + + + + + + +---------+ + + | (unknown) | (no date) | (unknown) | [facility] | (no | (units | (unknown) | | | | | [facility] | value) | unknown) | | | | [facility] | | | | + + + + +---------+ + + + + | Result panel 1163 | + + + + + + +---------+ + + | (unknown) | (no date) | (unknown) | [facility] | (no | (units | (unknown) | | | | | [facility] | value) | unknown) | | | | [facility] | | | | + + + + +---------+ + + + + | Result panel 1164 | + + + + + + +---------+ + + | (unknown) | (no date) | (unknown) | [facility] | (no | (units | (unknown) | | | | | [facility] | value) | unknown) | | | | [facility] | | | | + + + + +---------+ + + + + | Result panel 1165 | + + + + + + +---------+ + + | (unknown) | (no date) | (unknown) | [facility] | (no | (units | (unknown) | | | | | [facility] | value) | unknown) | | | | [facility] | | | | + + + + +---------+ + + + + | Result panel 1166 | + + + + + + +---------+ + + | (unknown) | (no date) | (unknown) | [facility] | (no | (units | (unknown) | | | | | [facility] | value) | unknown) | | | | [facility] | | | | + + + + +---------+ + + + + | Result panel 1167 | + + + + + + +---------+ + + | (unknown) | (no date) | (unknown) | [facility] | (no | (units | (unknown) | | | | | [facility] | value) | unknown) | | | | [facility] | | | | + + + + +---------+ + + + + | Result panel 1168 | + + + + + + +---------+ + + | (unknown) | (no date) | (unknown) | [facility] | (no | (units | (unknown) | | | | | [facility] | value) | unknown) | | | | [facility] | | | | + + + + +---------+ + + + + | Result panel 1169 | + + + + + + +---------+ + + | (unknown) | (no date) | (unknown) | [facility] | (no | (units | (unknown) | | | | | [facility] | value) | unknown) | | | | [facility] | | | | + + + + +---------+ + + + + | Result panel 1170 | + + + + + + +---------+ + + | (unknown) | (no date) | (unknown) | [facility] | (no | (units | (unknown) | | | | | [facility] | value) | unknown) | | | | [facility] | | | | + + + + +---------+ + + + + | Result panel 1171 | + + + + + + +---------+ + + | (unknown) | (no date) | (unknown) | [facility] | (no | (units | (unknown) | | | | | [facility] | value) | unknown) | | | | [facility] | | | | + + + + +---------+ + + + + | Result panel 1172 | + + + + + + +---------+ + + | (unknown) | (no date) | (unknown) | [facility] | (no | (units | (unknown) | | | | | [facility] | value) | unknown) | [facility] | | [facility] | | | | + + + + +---------+ + + + + | Result panel 1173 | + + + + + + +---------+ + + | (unknown) | (no date) | (unknown) | [facility] | (no | (units | (unknown) | | | | | [facility] | value) | unknown) | [facility] | | [facility] | | | | + + + + +---------+ + + + + | Result panel 1174 | + + + + + + +---------+ + + | (unknown) | (no date) | (unknown) | [facility] | (no | (units | (unknown) | | | | | [facility] | value) | unknown) | [facility] | | [facility] | | | | + + + + +---------+ + + + + | Result panel 1175 | + + + + + + +---------+ + + | (unknown) | (no date) | (unknown) | [facility] | (no | (units | (unknown) | | | | | [facility] | value) | unknown) | | [facility] | [facility] | | | | + + + + +---------+ + + + + | Result panel 1176 | + + + + + + +---------+ + + | (unknown) | (no date) | (unknown) | [facility] | (no | (units | (unknown) | | | | | [facility] | value) | unknown) | | | | | [facility] | | | | + + + + +---------+ + + + + | Result panel 1177 | + + + + + + +---------+ + + | (unknown) | (no date) | (unknown) | [facility] | (no | (units | (unknown) | | | | | [facility] | value) | unknown) | [facility] | [facility] | | | | + + + + +---------+ + + + + | Result panel 1178 | + + + + + + +---------+ + + | (unknown) | (no date) | (unknown) | [facility] | (no | (units | (unknown) | | | | | [facility] | value) | unknown) | | | | [facility] | | | | + + + + +---------+ + + + + | Result panel 1179 | + + + + + + +---------+ + + | (unknown) | (no date) | (unknown) | [facility] | (no | (units | (unknown) | | | | | [facility] | value) | unknown) | | | | | [facility] | | | | + + + + +---------+ + + + + | Result panel 1180 | + + + + + + +---------+ + + | (unknown) | (no date) | (unknown) | [facility] | (no | (units | (unknown) | | | | | [facility] | value) | unknown) | | | | | [facility] | | | | + + + + +---------+ + + + + | Result panel 1181 | + + + + + + +---------+ + + | (unknown) | (no date) | (unknown) | [facility] | (no | (units | (unknown) | | | | | [facility] | value) | unknown) | | | | | [facility] | | | | + + + + +---------+ + + + + | Result panel 1182 | + + + + + + +---------+ + + | (unknown) | (no date) | (unknown) | [facility] | (no | (units | (unknown) | | | | | [facility] | value) | unknown) | | | | | [facility] | | | | + + + + +---------+ + + + + | Result panel 1183 | + + + + + + +---------+ + + | (unknown) | (no date) | (unknown) | [facility] | (no | (units | (unknown) | | | | | [facility] | value) | unknown) | | | | | [facility] | | | | + + + + +---------+ + + + + | Result panel 1184 | + + + + + + +---------+ + + | (unknown) | (no date) | (unknown) | [facility] | (no | (units | (unknown) | | | | | [facility] | value) | unknown) | | [facility] | | [facility] | | | | + + + + +---------+ + + + + | Result panel 1185 | + + + + + + +---------+ + + | (unknown) | (no date) | (unknown) | [facility] | (no | (units | (unknown) | | | | | [facility] | value) | unknown) | | | | | [facility] | | | | + + + + +---------+ + + + + | Result panel 1186 | + + + + + + +---------+ + + | (unknown) | (no date) | (unknown) | [facility] | (no | (units | (unknown) | | | | | [facility] | value) | unknown) | | [facility] | | [facility] | | | | + + + + +---------+ + + + + | Result panel 1187 | + + + + + + +---------+ + + | (unknown) | (no date) | (unknown) | [facility] | (no | (units | (unknown) | | | | | [facility] | value) | unknown) | [facility] | | [facility] | | | | + + + + +---------+ + + + + | Result panel 1188 | + + + + + + +---------+ + + | (unknown) | (no date) | (unknown) | [facility] | (no | (units | (unknown) | | | | | [facility] | value) | unknown) | | | | | [facility] | | | | + + + + +---------+ + + + + | Result panel 1189 | + + + + + + +---------+ + + | (unknown) | (no date) | (unknown) | [facility] | (no | (units | (unknown) | | | | | [facility] | value) | unknown) | | | | | [facility] | | | | + + + + +---------+ + + + + | Result panel 1190 | + + + + + + +---------+ + + | (unknown) | (no date) | (unknown) | [facility] | (no | (units | (unknown) | | | | | [facility] | value) | unknown) | | [facility] | | [facility] | | | | + + + + +---------+ + + + + | Result panel 1191 | + + + + + + +---------+ + + | (unknown) | (no date) | (unknown) | [facility] | (no | (units | (unknown) | | | | | [facility] | value) | unknown) | | | | | [facility] | | | | + + + + +---------+ + + + + | Result panel 1192 | + + + + + + +---------+ + + | (unknown) | (no date) | (unknown) | [facility] | (no | (units | (unknown) | | | | | [facility] | value) | unknown) | | | | | [facility] | | | | + + + + +---------+ + + + + | Result panel 1193 | + + + + + + +---------+ + + | (unknown) | (no date) | (unknown) | [facility] | (no | (units | (unknown) | | | | | [facility] | value) | unknown) | | | | | [facility] | | | | + + + + +---------+ + + + + | Result panel 1194 | + + + + + + +---------+ + + | (unknown) | (no date) | (unknown) | [facility] | (no | (units | (unknown) | | | | | [facility] | value) | unknown) | | | | | [facility] | | | | + + + + +---------+ + + + + | Result panel 1195 | + + + + + + +---------+ + + | (unknown) | (no date) | (unknown) | [facility] | (no | (units | (unknown) | | | | | [facility] | value) | unknown) | | | | | [facility] | | | | + + + + +---------+ + + + + | Result panel 1196 | + + + + + + +---------+ + + | (unknown) | (no date) | (unknown) | [facility] | (no | (units | (unknown) | | | | | [facility] | value) | unknown) | | | | | [facility] | | | | + + + + +---------+ + + + + | Result panel 1197 | + + + + + + +---------+ + + | (unknown) | (no date) | (unknown) | [facility] | (no | (units | (unknown) | | | | | [facility] | value) | unknown) | | | | | [facility] | | | | + + + + +---------+ + + + + | Result panel 1198 | + + + + + + +---------+ + + | (unknown) | (no date) | (unknown) | [facility] | (no | (units | (unknown) | | | | | [facility] | value) | unknown) | | | | | [facility] | | | | + + + + +---------+ + + + + | Result panel 1199 | + + + + + + +---------+ + + | (unknown) | (no date) | (unknown) | [facility] | (no | (units | (unknown) | | | | | [facility] | value) | unknown) | | | | | [facility] | | | | + + + + +---------+ + + + + | Result panel 1200 | + + + + + + +---------+ + + | (unknown) | (no date) | (unknown) | [facility] | (no | (units | (unknown) | | | | | [facility] | value) | unknown) | | | | | [facility] | | | | + + + + +---------+ + + + + | Result panel 1201 | + + + + + + +---------+ + + | (unknown) | (no date) | (unknown) | [facility] | (no | (units | (unknown) | | | | | [facility] | value) | unknown) | | | | | [facility] | | | | + + + + +---------+ + + + + | Result panel 1202 | + + + + + + +---------+ + + | (unknown) | (no date) | (unknown) | [facility] | (no | (units | (unknown) | | | | | [facility] | value) | unknown) | | | | | [facility] | | | | + + + + +---------+ + + + + | Result panel 1203 | + + + + + + +---------+ + + | (unknown) | (no date) | (unknown) | [facility] | (no | (units | (unknown) | | | | | [facility] | value) | unknown) | [facility] | | | [facility] | | | | + + + + +---------+ + + + + | Result panel 1204 | + + + + + + +---------+ + + | (unknown) | (no date) | (unknown) | [facility] | (no | (units | (unknown) | | | | | [facility] | value) | unknown) | | | | | [facility] | | | | + + + + +---------+ + + + + | Result panel 1205 | + + + + + + +---------+ + + | (unknown) | (no date) | (unknown) | [facility] | (no | (units | (unknown) | | | | | [facility] | value) | unknown) | | | | | [facility] | | | | + + + + +---------+ + + + + | Result panel 1206 | + + + + + + +---------+ + + | (unknown) | (no date) | (unknown) | [facility] | (no | (units | (unknown) | | | | | [facility] | value) | unknown) | | | | | [facility] | | | | + + + + +---------+ + + + + | Result panel 1207 | + + + + + + +---------+ + + | (unknown) | (no date) | (unknown) | [facility] | (no | (units | (unknown) | | | | | [facility] | value) | unknown) | | | | | [facility] | | | | + + + + +---------+ + + + + | Result panel 1208 | + + + + + + +---------+ + + | (unknown) | (no date) | (unknown) | [facility] | (no | (units | (unknown) | | | | | [facility] | value) | unknown) | | | | | [facility] | | | | + + + + +---------+ + + + + | Result panel 1209 | + + + + + + +---------+ + + | (unknown) | (no date) | (unknown) | [facility] | (no | (units | (unknown) | | | | [facility] | value) | unknown) | | | | | [facility] | | | | + + + + +---------+ + + + + | Result panel 1210 | + + + + + + +---------+ + + | (unknown) | (no date) | (unknown) | [facility] | (no | (units | (unknown) | | | | | [facility] | value) | unknown) | [facility] | | | [facility] | | | | + + + + +---------+ + + + + | Result panel 1211 | + + + + + + +---------+ + + | (unknown) | (no date) | (unknown) | [facility] | (no | (units | (unknown) | | | | | [facility] | value) | unknown) | | [facility] | | [facility] | | | | + + + + +---------+ + + + + | Result panel 1212 | + + + + + + +---------+ + + | (unknown) | (no date) | (unknown) | [facility] | (no | (units | (unknown) | | | | | [facility] | value) | unknown) | | [facility] | [facility] | | | | + + + + +---------+ + + + + | Result panel 1213 | + + + + + + +---------+ + + | (unknown) | (no date) | (unknown) | [facility] | (no | (units | (unknown) | | | | | [facility] | value) | unknown) | | | | | [facility] | | | | + + + + +---------+ + + + + | Result panel 1214 | + + + + + + +---------+ + + | (unknown) | (no date) | (unknown) | [facility] | (no | (units | (unknown) | | | | | [facility] | value) | unknown) | [facility] | | [facility] | | | | + + + + +---------+ + + + + | Result panel 1215 | + + + + + + +---------+ + + | (unknown) | (no date) | (unknown) | [facility] | (no | (units | (unknown) | | | | | [facility] | value) | unknown) | | | | | [facility] | | | | + + + + +---------+ + + + + | Result panel 1216 | + + + + + + +---------+ + + | (unknown) | (no date) | (unknown) | [facility] | (no | (units | (unknown) | | | | | [facility] | value) | unknown) | | | | | [facility] | | | | + + + + +---------+ + + + + | Result panel 1217 | + + + + + + +---------+ + + | (unknown) | (no date) | (unknown) | [facility] | (no | (units | (unknown) | | | | | [facility] | value) | unknown) | | | | | [facility] | | | | + + + + +---------+ + + + + | Result panel 1218 | + + + + + + +---------+ + + | (unknown) | (no date) | (unknown) | [facility] | (no | (units | (unknown) | | | | | [facility] | value) | unknown) | | | | | [facility] | | | | + + + + +---------+ + + + + | Result panel 1219 | + + + + + + +---------+ + + | (unknown) | (no date) | (unknown) | [facility] | (no | (units | (unknown) | | | | | [facility] | value) | unknown) | | | | | [facility] | | | | + + + + +---------+ + + + + | Result panel 1220 | + + + + + + +---------+ + + | (unknown) | (no date) | (unknown) | [facility] | (no | (units | (unknown) | | | | | [facility] | value) | unknown) | | | | | [facility] | | | | + + + + +---------+ + + + + | Result panel 1221 | + + + + + + +---------+ + + | (unknown) | (no date) | (unknown) | [facility] | (no | (units | (unknown) | | | | | [facility] | value) | unknown) | | | | | [facility] | | | | + + + + +---------+ + + + + | Result panel 1222 | + + + + + + +---------+ + + | (unknown) | (no date) | (unknown) | [facility] | (no | (units | (unknown) | | | | | [facility] | value) | unknown) | | | | | [facility] | | | | + + + + +---------+ + + + + | Result panel 1223 | + + + + + + +---------+ + + | (unknown) | (no date) | (unknown) | [facility] | (no | (units | (unknown) | | | | | [facility] | value) | unknown) | [facility] | | [facility] | | | | + + + + +---------+ + + + + | Result panel 1224 | + + + + + + +---------+ + + | (unknown) | (no date) | (unknown) | [facility] | (no | (units | (unknown) | | | | | [facility] | value) | unknown) | | | | | [facility] | | | | + + + + +---------+ + + + + | Result panel 1225 | + + + + + + +---------+ + + | (unknown) | (no date) | (unknown) | [facility] | (no | (units | (unknown) | | | | | [facility] | value) | unknown) | | | | | [facility] | | | | + + + + +---------+ + + + + | Result panel 1226 | + + + + + + +---------+ + + | (unknown) | (no date) | (unknown) | [facility] | (no | (units | (unknown) | | | | | [facility] | value) | unknown) | | | | | [facility] | | | | + + + + +---------+ + + + + | Result panel 1227 | + + + + + + +---------+ + + | (unknown) | (no date) | (unknown) | [facility] | (no | (units | (unknown) | | | | | [facility] | value) | unknown) | | | | | [facility] | | | | + + + + +---------+ + + + + | Result panel 1228 | + + + + + + +---------+ + + | (unknown) | (no date) | (unknown) | [facility] | (no | (units | (unknown) | | | | | [facility] | value) | unknown) | | | | | [facility] | | | | + + + + +---------+ + + + + | Result panel 1229 | + + + + + + +---------+ + + | (unknown) | (no date) | (unknown) | [facility] | (no | (units | (unknown) | | | | | [facility] | value) | unknown) | | | | | [facility] | | | | + + + + +---------+ + + + + | Result panel 1230 | + + + + + + +---------+ + + | (unknown) | (no date) | (unknown) | [facility] | (no | (units | (unknown) | | | | | [facility] | value) | unknown) | | | | | [facility] | | | | + + + + +---------+ + + + + | Result panel 1231 | + + + + + + +---------+ + + | (unknown) | (no date) | (unknown) | [facility] | (no | (units | (unknown) | | | | | [facility] | value) | unknown) | | | | | [facility] | | | | + + + + +---------+ + + + + | Result panel 1232 | + + + + + + +---------+ + + | (unknown) | (no date) | (unknown) | [facility] | (no | (units | (unknown) | | | | | [facility] | value) | unknown) | | | | | [facility] | | | | + + + + +---------+ + + + + | Result panel 1233 | + + + + + + +---------+ + + | (unknown) | (no date) | (unknown) | [facility] | (no | (units | (unknown) | | | | | [facility] | value) | unknown) | | | | | [facility] | | | | + + + + +---------+ + + + + | Result panel 1234 | + + + + + + +---------+ + + | (unknown) | (no date) | (unknown) | [facility] | (no | (units | (unknown) | | | | | [facility] | value) | unknown) | | | | | [facility] | | | | + + + + +---------+ + + + + | Result panel 1235 | + + + + + + +---------+ + + | (unknown) | (no date) | (unknown) | [facility] | (no | (units | (unknown) | | | | | [facility] | value) | unknown) | | | | | [facility] | | | | + + + + +---------+ + + + + | Result panel 1236 | + + + + + + +---------+ + + | (unknown) | (no date) | (unknown) | [facility] | (no | (units | (unknown) | | | | | [facility] | value) | unknown) | | | | | [facility] | | | | + + + + +---------+ + + + + | Result panel 1237 | + + + + + + +---------+ + + | (unknown) | (no date) | (unknown) | [facility] | (no | (units | (unknown) | | | | | [facility] | value) | unknown) | | | | | [facility] | | | | + + + + +---------+ + + + + | Result panel 1238 | + + + + + + +---------+ + + | (unknown) | (no date) | (unknown) | [facility] | (no | (units | (unknown) | | | | | [facility] | value) | unknown) | [facility] | | | [facility] | | | | + + + + +---------+ + + + + | Result panel 1239 | + + + + + + +---------+ + + | (unknown) | (no date) | (unknown) | [facility] | (no | (units | (unknown) | | | | | [facility] | value) | unknown) | | | | | [facility] | | | | + + + + +---------+ + + + + | Result panel 1240 | + + + + + + +---------+ + + | (unknown) | (no date) | (unknown) | [facility] | (no | (units | (unknown) | | | | | [facility] | value) | unknown) | | | | | [facility] | | | | + + + + +---------+ + + + + | Result panel 1241 | + + + + + + +---------+ + + | (unknown) | (no date) | (unknown) | [facility] | (no | (units | (unknown) | | | | | [facility] | value) | unknown) | | | | | [facility] | | | | + + + + +---------+ + + + + | Result panel 1242 | + + + + + + +---------+ + + | (unknown) | (no date) | (unknown) | [facility] | (no | (units | (unknown) | | | | | [facility] | value) | unknown) | | [facility] | | [facility] | | | | + + + + +---------+ + + + + | Result panel 1243 | + + + + + + +---------+ + + | (unknown) | (no date) | (unknown) | [facility] | (no | (units | (unknown) | | | | | [facility] | value) | unknown) | | | | | [facility] | | | | + + + + +---------+ + + + + | Result panel 1244 | + + + + + + +---------+ + + | (unknown) | (no date) | (unknown) | [facility] | (no | (units | (unknown) | | | | | [facility] | value) | unknown) | | | | | [facility] | | | | + + + + +---------+ + + + + | Result panel 1245 | + + + + + + +---------+ + + | (unknown) | (no date) | (unknown) | [facility] | (no | (units | (unknown) | | | | | [facility] | value) | unknown) | | | | | [facility] | | | | + + + + +---------+ + + + + | Result panel 1246 | + + + + + + +---------+ + + | (unknown) | (no date) | (unknown) | [facility] | (no | (units | (unknown) | | | | | [facility] | value) | unknown) | | | | | [facility] | | | | + + + + +---------+ + + + + | Result panel 1247 | + + + + + + +---------+ + + | (unknown) | (no date) | (unknown) | [facility] | (no | (units | (unknown) | | | | | [facility] | value) | unknown) | | | | | [facility] | | | | + + + + +---------+ + + + + | Result panel 1248 | + + + + + + +---------+ + + | (unknown) | (no date) | (unknown) | [facility] | (no | (units | (unknown) | | | | | [facility] | value) | unknown) | | | | | [facility] | | | | + + + + +---------+ + + + + | Result panel 1249 | + + + + + + +---------+ + + | (unknown) | (no date) | (unknown) | [facility] | (no | (units | (unknown) | | | | | [facility] | value) | unknown) | [facility] | | [facility] | | | | + + + + +---------+ + + + + | Result panel 1250 | + + + + + + +---------+ + + | (unknown) | (no date) | (unknown) | [facility] | (no | (units | (unknown) | | | | | [facility] | value) | unknown) | | | | | [facility] | | | | + + + + +---------+ + + + + | Result panel 1251 | + + + + + + +---------+ + + | (unknown) | (no date) | (unknown) | [facility] | (no | (units | (unknown) | | | | | [facility] | value) | unknown) | | | | | [facility] | | | | + + + + +---------+ + + + + | Result panel 1252 | + + + + + + +---------+ + + | (unknown) | (no date) | (unknown) | [facility] | (no | (units | (unknown) | | | | | [facility] | value) | unknown) | | | | | [facility] | | | | + + + + +---------+ + + + + | Result panel 1253 | + + + + + + +---------+ + + | (unknown) | (no date) | (unknown) | [facility] | (no | (units | (unknown) | | | | | [facility] | value) | unknown) | | | | | [facility] | | | | + + + + +---------+ + + + + | Result panel 1254 | + + + + + + +---------+ + + | (unknown) | (no date) | (unknown) | [facility] | (no | (units | (unknown) | | | | | [facility] | value) | unknown) | | | | | | [facility] | | | | + + + + +---------+ + + + + | Result panel 1255 | + + + + + + +---------+ + + | (unknown) | (no date) | (unknown) | [facility] | (no | (units | (unknown) | | | | | [facility] | value) | unknown) | | | | | [facility] | | | | + + + + +---------+ + + + + | Result panel 1256 | + + + + + + +---------+ + + | (unknown) | (no date) | (unknown) | [facility] | (no | (units | (unknown) | | | | | [facility] | value) | unknown) | | | | | [facility] | | | | + + + + +---------+ + + + + | Result panel 1257 | + + + + + + +---------+ + + | (unknown) | (no date) | (unknown) | [facility] | (no | (units | (unknown) | | | | | [facility] | value) | unknown) | | | | | [facility] | | | | + + + + +---------+ + + + + | Result panel 1258 | + + + + + + +---------+ + + | (unknown) | (no date) | (unknown) | [facility] | (no | (units | (unknown) | | | | | [facility] | value) | unknown) | | | | | [facility] | | | | + + + + +---------+ + + + + | Result panel 1259 | + + + + + + +---------+ + + | (unknown) | (no date) | (unknown) | [facility] | (no | (units | (unknown) | | | | | [facility] | value) | unknown) | | | | | | [facility] | | | | + + + + +---------+ + + + + | Result panel 1260 | + + + + + + +---------+ + + | (unknown) | (no date) | (unknown) | [facility] | (no | (units | (unknown) | | | | | [facility] | value) | unknown) | | | | | | [facility] | | | | + + + + +---------+ + + + + | Result panel 1261 | + + + + + + +---------+ + + | (unknown) | (no date) | (unknown) | [facility] | (no | (units | (unknown) | | | | | [facility] | value) | unknown) | | | | | | [facility] | | | | + + + + +---------+ + + + + | Result panel 1262 | + + + + + + +---------+ + + | (unknown) | (no date) | (unknown) | [facility] | (no | (units | (unknown) | | | | | [facility] | value) | unknown) | | | [facility] | | | | + + + + +---------+ + + + + | Result panel 1263 | + + + + + + +---------+ + + | (unknown) | (no date) | (unknown) | [facility] | (no | (units | (unknown) | | | | [facility] | value) | unknown) | | | | | [facility] | | | | + + + + +---------+ + + + + | Result panel 1264 | + + + + + + +---------+ + + | (unknown) | (no date) | (unknown) | [facility] | (no | (units | (unknown) | | | | | [facility] | value) | unknown) | | | | [facility] | | | | + + + + +---------+ + + + + | Result panel 1265 | + + + + + + +---------+ + + | (unknown) | (no date) | (unknown) | [facility] | (no | (units | (unknown) | | | | [facility] | value) | unknown) | | [facility] | | | | + + + + +---------+ + + + + | Result panel 1266 | + + + + + + +---------+ + + | (unknown) | (no date) | (unknown) | [facility] | (no | (units | (unknown) | | | | | [facility] | value) | unknown) | | [facility] | | | | + + + + +---------+ + + + + | Result panel 1267 | + + + + + + +---------+ + + | (unknown) | (no date) | (unknown) | [facility] | (no | (units | (unknown) | | | | | [facility] | value) | unknown) | | [facility] | | | | + + + + +---------+ + + + + | Result panel 1268 | + + + + + + +---------+ + + | (unknown) | (no date) | (unknown) | [facility] | (no | (units | (unknown) | | | | | [facility] | value) | unknown) | | [facility] | | | | + + + + +---------+ + + + + | Result panel 1269 | + + + + + + +---------+ + + | (unknown) | (no date) | (unknown) | [facility] | (no | (units | (unknown) | | | | | [facility] | value) | unknown) | | | [facility] | | | | + + + + +---------+ + + + + | Result panel 1270 | + + + + + + +---------+ + + | (unknown) | (no date) | (unknown) | [facility] | (no | (units | (unknown) | | | | | [facility] | value) | unknown) | | | | [facility] | | | | + + + + +---------+ + + + + | Result panel 1271 | + + + + + + +---------+ + + | (unknown) | (no date) | (unknown) | [facility] | (no | (units | (unknown) | | | | | [facility] | value) | unknown) | | | [facility] | | | | + + + + +---------+ + + + + | Result panel 1272 | + + + + + + +---------+ + + | (unknown) | (no date) | (unknown) | [facility] | (no | (units | (unknown) | | | | | [facility] | value) | unknown) | | | | [facility] | | | | + + + + +---------+ + + + + | Result panel 1273 | + + + + + + +---------+ + + | (unknown) | (no date) | (unknown) | [facility] | (no | (units | (unknown) | | | | | [facility] | value) | unknown) | | | | [facility] | | | | + + + + +---------+ + + + + | Result panel 1274 | + + + + + + +---------+ + + | (unknown) | (no date) | (unknown) | [facility] | (no | (units | (unknown) | | | | | [facility] | value) | unknown) | | | | [facility] | | | | + + + + +---------+ + + + + | Result panel 1275 | + + + + + + +---------+ + + | (unknown) | (no date) | (unknown) | [facility] | (no | (units | (unknown) | | | | | [facility] | value) | unknown) | | | | [facility] | | | | + + + + +---------+ + + + + | Result panel 1276 | + + + + + + +---------+ + + | (unknown) | (no date) | (unknown) | [facility] | (no | (units | (unknown) | | | | | [facility] | value) | unknown) | | | [facility] | | | | + + + + +---------+ + + + + | Result panel 1277 | + + + + + + +---------+ + + | (unknown) | (no date) | (unknown) | [facility] | (no | (units | (unknown) | | | | | [facility] | value) | unknown) | | | | [facility] | | | | + + + + +---------+ + + + + | Result panel 1278 | + + + + + + +---------+ + + | (unknown) | (no date) | (unknown) | [facility] | (no | (units | (unknown) | | | | | [facility] | value) | unknown) | | | | [facility] | | | | + + + + +---------+ + + + + | Result panel 1279 | + + + + + + +---------+ + + | (unknown) | (no date) | (unknown) | [facility] | (no | (units | (unknown) | | | | | [facility] | value) | unknown) | | | | [facility] | | | | + + + + +---------+ + + + + | Result panel 1280 | + + + + + + +---------+ + + | (unknown) | (no date) | (unknown) | [facility] | (no | (units | (unknown) | | | | | [facility] | value) | unknown) | | | [facility] | | | | + + + + +---------+ + + + + | Result panel 1281 | + + + + + + +---------+ + + | (unknown) | (no date) | (unknown) | [facility] | (no | (units | (unknown) | | | | | [facility] | value) | unknown) | [facility] | | [facility] | | | | + + + + +---------+ + + + + | Result panel 1282 | + + + + + + +---------+ + + | (unknown) | (no date) | (unknown) | [facility] | (no | (units | (unknown) | | | | | [facility] | value) | unknown) | [facility] | | | | + + + + +---------+ + + + + | Result panel 1283 | + + + + + + +---------+ + + | (unknown) | (no date) | (unknown) | [facility] | (no | (units | (unknown) | | | | | [facility] | value) | unknown) | | [facility] | | | | + + + + +---------+ + + + + | Result panel 1284 | + + + + + + +---------+ + + | (unknown) | (no date) | (unknown) | [facility] | (no | (units | (unknown) | | | | | [facility] | value) | unknown) | | | | [facility] | | | | + + + + +---------+ + + + + | Result panel 1285 | + + + + + + +---------+ + + | (unknown) | (no date) | (unknown) | [facility] | (no | (units | (unknown) | | | | | [facility] | value) | unknown) | | [facility] | | | | + + + + +---------+ + + + + | Result panel 1286 | + + + + + + +---------+ + + | (unknown) | (no date) | (unknown) | [facility] | (no | (units | (unknown) | | | | | [facility] | value) | unknown) | [facility] | | [facility] | | | | + + + + +---------+ + + + + | Result panel 1287 | + + + + + + +---------+ + + | (unknown) | (no date) | (unknown) | [facility] | (no | (units | (unknown) | | | | | [facility] | value) | unknown) | | | | [facility] | | | | + + + + +---------+ + + + + | Result panel 1288 | + + + + + + +---------+ + + | (unknown) | (no date) | (unknown) | [facility] | (no | (units | (unknown) | | | | | [facility] | value) | unknown) | | | | [facility] | | | | + + + + +---------+ + + + + | Result panel 1289 | + + + + + + +---------+ + + | (unknown) | (no date) | (unknown) | [facility] | (no | (units | (unknown) | | | | | [facility] | value) | unknown) | | | | [facility] | | | | + + + + +---------+ + + + + | Result panel 1290 | + + + + + + +---------+ + + | (unknown) | (no date) | (unknown) | [facility] | (no | (units | (unknown) | | | | | [facility] | value) | unknown) | | | | [facility] | | | | + + + + +---------+ + + + + | Result panel 1291 | + + + + + + +---------+ + + | (unknown) | (no date) | (unknown) | [facility] | (no | (units | (unknown) | | | | | [facility] | value) | unknown) | | | | | [facility] | | | | + + + + +---------+ + + + + | Result panel 1292 | + + + + + + +---------+ + + | (unknown) | (no date) | (unknown) | [facility] | (no | (units | (unknown) | | | | | [facility] | value) | unknown) | | | | | [facility] | | | | + + + + +---------+ + + + + | Result panel 1293 | + + + + + + +---------+ + + | (unknown) | (no date) | (unknown) | [facility] | (no | (units | (unknown) | | | | | [facility] | value) | unknown) | | | | | [facility] | | | | + + + + +---------+ + + + + | Result panel 1294 | + + + + + + +---------+ + + | (unknown) | (no date) | (unknown) | [facility] | (no | (units | (unknown) | | | | | [facility] | value) | unknown) | | | | | [facility] | | | | + + + + +---------+ + + + + | Result panel 1295 | + + + + + + +---------+ + + | (unknown) | (no date) | (unknown) | [facility] | (no | (units | (unknown) | | | | | [facility] | value) | unknown) | [facility] | | [facility] | | | | + + + + +---------+ + + + + | Result panel 1296 | + + + + + + +---------+ + + | (unknown) | (no date) | (unknown) | [facility] | (no | (units | (unknown) | | | | | [facility] | value) | unknown) | | | | | [facility] | | | | + + + + +---------+ + + + + | Result panel 1297 | + + + + + + +---------+ + + | (unknown) | (no date) | (unknown) | [facility] | (no | (units | (unknown) | | | | | [facility] | value) | unknown) | [facility] | | [facility] | | | | + + + + +---------+ + + + + | Result panel 1298 | + + + + + + +---------+ + + | (unknown) | (no date) | (unknown) | [facility] | (no | (units | (unknown) | | | | | [facility] | value) | unknown) | | | | | [facility] | | | | + + + + +---------+ + + + + | Result panel 1299 | + + + + + + +---------+ + + | (unknown) | (no date) | (unknown) | [facility] | (no | (units | (unknown) | | | | | [facility] | value) | unknown) | | | | | [facility] | | | | + + + + +---------+ + + + + | Result panel 1300 | + + + + + + +---------+ + + | (unknown) | (no date) | (unknown) | [facility] | (no | (units | (unknown) | | | | | [facility] | value) | unknown) | [facility] | | [facility] | | | | + + + + +---------+ + + + + | Result panel 1301 | + + + + + + +---------+ + + | (unknown) | (no date) | (unknown) | [facility] | (no | (units | (unknown) | | | | | [facility] | value) | unknown) | | | | | [facility] | | | | + + + + +---------+ + + + + | Result panel 1302 | + + + + + + +---------+ + + | (unknown) | (no date) | (unknown) | [facility] | (no | (units | (unknown) | | | | | [facility] | value) | unknown) | | | | | [facility] | | | | + + + + +---------+ + + + + | Result panel 1303 | + + + + + + +---------+ + + | (unknown) | (no date) | (unknown) | [facility] | (no | (units | (unknown) | | | | | [facility] | value) | unknown) | | | | [facility] | | | | + + + + +---------+ + + + + | Result panel 1304 | + + + + + + +---------+ + + | (unknown) | (no date) | (unknown) | [facility] | (no | (units | (unknown) | | | | | [facility] | value) | unknown) | | [facility] | [facility] | | | | + + + + +---------+ + + + + | Result panel 1305 | + + + + + + +---------+ + + | (unknown) | (no date) | (unknown) | [facility] | (no | (units | (unknown) | | | | | [facility] | value) | unknown) | | | | | [facility] | | | | + + + + +---------+ + + + + | Result panel 1306 | + + + + + + +---------+ + + | (unknown) | (no date) | (unknown) | [facility] | (no | (units | (unknown) | | | | | [facility] | value) | unknown) | | | | | [facility] | | | | + + + + +---------+ + + + + | Result panel 1307 | + + + + + + +---------+ + + | (unknown) | (no date) | (unknown) | [facility] | (no | (units | (unknown) | | | | | [facility] | value) | unknown) | | | | [facility] | | | | + + + + +---------+ + + + + | Result panel 1308 | + + + + + + +---------+ + + | (unknown) | (no date) | (unknown) | [facility] | (no | (units | (unknown) | | | | | [facility] | value) | unknown) | | | | | [facility] | | | | + + + + +---------+ + + + + | Result panel 1309 | + + + + + + +---------+ + + | (unknown) | (no date) | (unknown) | [facility] | (no | (units | (unknown) | | | | | [facility] | value) | unknown) | | | | | [facility] | | | | + + + + +---------+ + + + + | Result panel 1310 | + + + + + + +---------+ + + | (unknown) | (no date) | (unknown) | [facility] | (no | (units | (unknown) | | | | | [facility] | value) | unknown) | | | | | [facility] | | | | + + + + +---------+ + + + + | Result panel 1311 | + + + + + + +---------+ + + | (unknown) | (no date) | (unknown) | [facility] | (no | (units | (unknown) | | | | | [facility] | value) | unknown) | | | | | [facility] | | | | + + + + +---------+ + + + + | Result panel 1312 | + + + + + + +---------+ + + | (unknown) | (no date) | (unknown) | [facility] | (no | (units | (unknown) | | | | | [facility] | value) | unknown) | | | | | [facility] | | | | + + + + +---------+ + + + + | Result panel 1313 | + + + + + + +---------+ + + | (unknown) | (no date) | (unknown) | [facility] | (no | (units | (unknown) | | | | | [facility] | value) | unknown) | | | | [facility] | | | | + + + + +---------+ + + + + | Result panel 1314 | + + + + + + +---------+ + + | (unknown) | (no date) | (unknown) | [facility] | (no | (units | (unknown) | | | | | [facility] | value) | unknown) | [facility] | | [facility] | | | | + + + + +---------+ + + + + | Result panel 1315 | + + + + + + +---------+ + + | (unknown) | (no date) | (unknown) | [facility] | (no | (units | (unknown) | | | | | [facility] | value) | unknown) | | [facility] | [facility] | | | | + + + + +---------+ + + + + | Result panel 1316 | + + + + + + +---------+ + + | (unknown) | (no date) | (unknown) | [facility] | (no | (units | (unknown) | | | | | [facility] | value) | unknown) | | | | | [facility] | | | | + + + + +---------+ + + + + | Result panel 1317 | + + + + + + +---------+ + + | (unknown) | (no date) | (unknown) | [facility] | (no | (units | (unknown) | | | | | [facility] | value) | unknown) | | | | | [facility] | | | | + + + + +---------+ + + + + | Result panel 1318 | + + + + + + +---------+ + + | (unknown) | (no date) | (unknown) | [facility] | (no | (units | (unknown) | | | | | [facility] | value) | unknown) | | | | | [facility] | | | | + + + + +---------+ + + + + | Result panel 1319 | + + + + + + +---------+ + + | (unknown) | (no date) | (unknown) | [facility] | (no | (units | (unknown) | | | | | [facility] | value) | unknown) | | | | | [facility] | | | | + + + + +---------+ + + + + | Result panel 1320 | + + + + + + +---------+ + + | (unknown) | (no date) | (unknown) | [facility] | (no | (units | (unknown) | | | | | [facility] | value) | unknown) | | | | | [facility] | | | | + + + + +---------+ + + + + | Result panel 1321 | + + + + + + +---------+ + + | (unknown) | (no date) | (unknown) | [facility] | (no | (units | (unknown) | | | | | [facility] | value) | unknown) | [facility] | | [facility] | | | | + + + + +---------+ + + + + | Result panel 1322 | + + + + + + +---------+ + + | (unknown) | (no date) | (unknown) | [facility] | (no | (units | (unknown) | | | | | [facility] | value) | unknown) | [facility] | | [facility] | | | | + + + + +---------+ + + + + | Result panel 1323 | + + + + + + +---------+ + + | (unknown) | (no date) | (unknown) | [facility] | (no | (units | (unknown) | | | | | [facility] | value) | unknown) | | [facility] | [facility] | | | | + + + + +---------+ + + + + | Result panel 1324 | + + + + + + +---------+ + + | (unknown) | (no date) | (unknown) | [facility] | (no | (units | (unknown) | | | | | [facility] | value) | unknown) | | | | | [facility] | | | | + + + + +---------+ + + + + | Result panel 1325 | + + + + + + +---------+ + + | (unknown) | (no date) | (unknown) | [facility] | (no | (units | (unknown) | | | | | [facility] | value) | unknown) | | | | | [facility] | | | | + + + + +---------+ + + + + | Result panel 1326 | + + + + + + +---------+ + + | (unknown) | (no date) | (unknown) | [facility] | (no | (units | (unknown) | | | | | [facility] | value) | unknown) | | | | | [facility] | | | | + + + + +---------+ + + + + | Result panel 1327 | + + + + + + +---------+ + + | (unknown) | (no date) | (unknown) | [facility] | (no | (units | (unknown) | | | | | [facility] | value) | unknown) | | | | | [facility] | | | | + + + + +---------+ + + + + | Result panel 1328 | + + + + + + +---------+ + + | (unknown) | (no date) | (unknown) | [facility] | (no | (units | (unknown) | | | | | [facility] | value) | unknown) | | | | | [facility] | | | | + + + + +---------+ + + + + | Result panel 1329 | + + + + + + +---------+ + + | (unknown) | (no date) | (unknown) | [facility] | (no | (units | (unknown) | | | | | [facility] | value) | unknown) | | | | | [facility] | | | | + + + + +---------+ + + + + | Result panel 1330 | + + + + + + +---------+ + + | (unknown) | (no date) | (unknown) | [facility] | (no | (units | (unknown) | | | | | [facility] | value) | unknown) | | | | | [facility] | | | | + + + + +---------+ + + + + | Result panel 1331 | + + + + + + +---------+ + + | (unknown) | (no date) | (unknown) | [facility] | (no | (units | (unknown) | | | | | [facility] | value) | unknown) | | | | | [facility] | | | | + + + + +---------+ + + + + | Result panel 1332 | + + + + + + +---------+ + + | (unknown) | (no date) | (unknown) | [facility] | (no | (units | (unknown) | | | | | [facility] | value) | unknown) | | | | | [facility] | | | | + + + + +---------+ + + + + | Result panel 1333 | + + + + + + +---------+ + + | (unknown) | (no date) | (unknown) | [facility] | (no | (units | (unknown) | | | | | [facility] | value) | unknown) | | | | | [facility] | | | | + + + + +---------+ + + + + | Result panel 1334 | + + + + + + +---------+ + + | (unknown) | (no date) | (unknown) | [facility] | (no | (units | (unknown) | | | | | [facility] | value) | unknown) | | | | | [facility] | | | | + + + + +---------+ + + + + | Result panel 1335 | + + + + + + +---------+ + + | (unknown) | (no date) | (unknown) | [facility] | (no | (units | (unknown) | | | | | [facility] | value) | unknown) | | | | | [facility] | | | | + + + + +---------+ + + + + | Result panel 1336 | + + + + + + +---------+ + + | (unknown) | (no date) | (unknown) | [facility] | (no | (units | (unknown) | | | | | [facility] | value) | unknown) | | | | | [facility] | | | | + + + + +---------+ + + + + | Result panel 1337 | + + + + + + +---------+ + + | (unknown) | (no date) | (unknown) | [facility] | (no | (units | (unknown) | | | | | [facility] | value) | unknown) | | | | | [facility] | | | | + + + + +---------+ + + + + | Result panel 1338 | + + + + + + +---------+ + + | (unknown) | (no date) | (unknown) | [facility] | (no | (units | (unknown) | | | | | [facility] | value) | unknown) | [facility] | | | [facility] | | | | + + + + +---------+ + + + + | Result panel 1339 | + + + + + + +---------+ + + | (unknown) | (no date) | (unknown) | [facility] | (no | (units | (unknown) | | | | | [facility] | value) | unknown) | | | | | [facility] | | | | + + + + +---------+ + + + + | Result panel 1340 | + + + + + + +---------+ + + | (unknown) | (no date) | (unknown) | [facility] | (no | (units | (unknown) | | | | | [facility] | value) | unknown) | | [facility] | | [facility] | | | | + + + + +---------+ + + + + | Result panel 1341 | + + + + + + +---------+ + + | (unknown) | (no date) | (unknown) | [facility] | (no | (units | (unknown) | | | | | [facility] | value) | unknown) | | [facility] | | [facility] | | | | + + + + +---------+ + + + + | Result panel 1342 | + + + + + + +---------+ + + | (unknown) | (no date) | (unknown) | [facility] | (no | (units | (unknown) | | | | | [facility] | value) | unknown) | [facility] | | | [facility] | | | | + + + + +---------+ + + + + | Result panel 1343 | + + + + + + +---------+ + + | (unknown) | (no date) | (unknown) | [facility] | (no | (units | (unknown) | | | | | [facility] | value) | unknown) | | | | | [facility] | | | | + + + + +---------+ + + + + | Result panel 1344 | + + + + + + +---------+ + + | (unknown) | (no date) | (unknown) | [facility] | (no | (units | (unknown) | | | | | [facility] | value) | unknown) | | | | | [facility] | | | | + + + + +---------+ + + + + | Result panel 1345 | + + + + + + +---------+ + + | (unknown) | (no date) | (unknown) | [facility] | (no | (units | (unknown) | | | | | [facility] | value) | unknown) | | | | | [facility] | | | | + + + + +---------+ + + + + | Result panel 1346 | + + + + + + +---------+ + + | (unknown) | (no date) | (unknown) | [facility] | (no | (units | (unknown) | | | | | [facility] | value) | unknown) | | | | | [facility] | | | | + + + + +---------+ + + + + | Result panel 1347 | + + + + + + +---------+ + + | (unknown) | (no date) | (unknown) | [facility] | (no | (units | (unknown) | | | | | [facility] | value) | unknown) | | | | | [facility] | | | | + + + + +---------+ + + + + | Result panel 1348 | + + + + + + +---------+ + + | (unknown) | (no date) | (unknown) | [facility] | (no | (units | (unknown) | | | | | [facility] | value) | unknown) | | | | | [facility] | | | | + + + + +---------+ + + + + | Result panel 1349 | + + + + + + +---------+ + + | (unknown) | (no date) | (unknown) | [facility] | (no | (units | (unknown) | | | | | [facility] | value) | unknown) | | | | | [facility] | | | | + + + + +---------+ + + + + | Result panel 1350 | + + + + + + +---------+ + + | (unknown) | (no date) | (unknown) | [facility] | (no | (units | (unknown) | | | | | [facility] | value) | unknown) | | [facility] | | [facility] | | | | + + + + +---------+ + + + + | Result panel 1351 | + + + + + + +---------+ + + | (unknown) | (no date) | (unknown) | [facility] | (no | (units | (unknown) | | | | | [facility] | value) | unknown) | | | | | [facility] | | | | + + + + +---------+ + + + + | Result panel 1352 | + + + + + + +---------+ + + | (unknown) | (no date) | (unknown) | [facility] | (no | (units | (unknown) | | | | | [facility] | value) | unknown) | | [facility] | | [facility] | | | | + + + + +---------+ + + + + | Result panel 1353 | + + + + + + +---------+ + + | (unknown) | (no date) | (unknown) | [facility] | (no | (units | (unknown) | | | | | [facility] | value) | unknown) | [facility] | | | [facility] | | | | + + + + +---------+ + + + + | Result panel 1354 | + + + + + + +---------+ + + | (unknown) | (no date) | (unknown) | [facility] | (no | (units | (unknown) | | | | | [facility] | value) | unknown) | | | | | [facility] | | | | + + + + +---------+ + + + + | Result panel 1355 | + + + + + + +---------+ + + | (unknown) | (no date) | (unknown) | [facility] | (no | (units | (unknown) | | | | | [facility] | value) | unknown) | | | | | [facility] | | | | + + + + +---------+ + + + + | Result panel 1356 | + + + + + + +---------+ + + | (unknown) | (no date) | (unknown) | [facility] | (no | (units | (unknown) | | | | | [facility] | value) | unknown) | | | | | [facility] | | | | + + + + +---------+ + + + + | Result panel 1357 | + + + + + + +---------+ + + | (unknown) | (no date) | (unknown) | [facility] | (no | (units | (unknown) | | | | | [facility] | value) | unknown) | | | | | [facility] | | | | + + + + +---------+ + + + + | Result panel 1358 | + + + + + + +---------+ + + | (unknown) | (no date) | (unknown) | [facility] | (no | (units | (unknown) | | | | | [facility] | value) | unknown) | [facility] | | [facility] | | | | + + + + +---------+ + + + + | Result panel 1359 | + + + + + + +---------+ + + | (unknown) | (no date) | (unknown) | [facility] | (no | (units | (unknown) | | | | | [facility] | value) | unknown) | | | | | [facility] | | | | + + + + +---------+ + + + + | Result panel 1360 | + + + + + + +---------+ + + | (unknown) | (no date) | (unknown) | [facility] | (no | (units | (unknown) | | | | | [facility] | value) | unknown) | [facility] | [facility] | | | | + + + + +---------+ + + + + | Result panel 1361 | + + + + + + +---------+ + + | (unknown) | (no date) | (unknown) | [facility] | (no | (units | (unknown) | | | | | [facility] | value) | unknown) | | | | [facility] | | | | + + + + +---------+ + + + + | Result panel 1362 | + + + + + + +---------+ + + | (unknown) | (no date) | (unknown) | [facility] | (no | (units | (unknown) | | | | | [facility] | value) | unknown) | | [facility] | [facility] | | | | + + + + +---------+ + + + + | Result panel 1363 | + + + + + + +---------+ + + | (unknown) | (no date) | (unknown) | [facility] | (no | (units | (unknown) | | | | | [facility] | value) | unknown) | | [facility] | [facility] | | | | + + + + +---------+ + + + + | Result panel 1364 | + + + + + + +---------+ + + | (unknown) | (no date) | (unknown) | [facility] | (no | (units | (unknown) | | | | | [facility] | value) | unknown) | | | | | | [facility] | | | | + + + + +---------+ + + + + | Result panel 1365 | + + + + + + +---------+ + + | (unknown) | (no date) | (unknown) | [facility] | (no | (units | (unknown) | | | | | [facility] | value) | unknown) | | | | | | [facility] | | | | + + + + +---------+ + + + + | Result panel 1366 | + + + + + + +---------+ + + | (unknown) | (no date) | (unknown) | [facility] | (no | (units | (unknown) | | | | | [facility] | value) | unknown) | | | | | [facility] | | | | + + + + +---------+ + + + + | Result panel 1367 | + + + + + + +---------+ + + | (unknown) | (no date) | (unknown) | [facility] | (no | (units | (unknown) | | | | | [facility] | value) | unknown) | | | | | [facility] | | | | + + + + +---------+ + + + + | Result panel 1368 | + + + + + + +---------+ + + | (unknown) | (no date) | (unknown) | [facility] | (no | (units | (unknown) | | | | | [facility] | value) | unknown) | | | | | [facility] | | | | + + + + +---------+ + + + + | Result panel 1369 | + + + + + + +---------+ + + | (unknown) | (no date) | (unknown) | [facility] | (no | (units | (unknown) | | | | | [facility] | value) | unknown) | | | | | [facility] | | | | + + + + +---------+ + + + + | Result panel 1370 | + + + + + + +---------+ + + | (unknown) | (no date) | (unknown) | [facility] | (no | (units | (unknown) | | | | | [facility] | value) | unknown) | | | | | [facility] | | | | + + + + +---------+ + + + + | Result panel 1371 | + + + + + + +---------+ + + | (unknown) | (no date) | (unknown) | [facility] | (no | (units | (unknown) | | | | | [facility] | value) | unknown) | | | | | [facility] | | | | + + + + +---------+ + + + + | Result panel 1372 | + + + + + + +---------+ + + | (unknown) | (no date) | (unknown) | [facility] | (no | (units | (unknown) | | | | | [facility] | value) | unknown) | | | | | | [facility] | | | | + + + + +---------+ + + + + | Result panel 1373 | + + + + + + +---------+ + + | (unknown) | (no date) | (unknown) | [facility] | (no | (units | (unknown) | | | | [facility] value) | unknown) | | | | [facility] | | | | + + + + +---------+ + + + + | Result panel 1374 | + + + + + + +---------+ + + | (unknown) | (no date) | (unknown) | [facility] | (no | (units | (unknown) | | | | | [facility] | value) | unknown) | | | [facility] | | | | + + + + +---------+ + + + + | Result panel 1375 | + + + + + + +---------+ + + | (unknown) | (no date) | (unknown) | [facility] | (no | (units | (unknown) | | | | | [facility] value) | unknown) | | [facility] | | | | + + + + +---------+ + + + + | Result panel 1376 | + + + + + + +---------+ + + | (unknown) | (no date) | (unknown) | [facility] | (no | (units | (unknown) | | | | | [facility] | value) | unknown) | | [facility] | | | | + + + + +---------+ + + + + | Result panel 1377 | + + + + + + +---------+ + + | (unknown) | (no date) | (unknown) | [facility] | (no | (units | (unknown) | | | | | [facility] | value) | unknown) | | | [facility] | | | | + + + + +---------+ + + + + | Result panel 1378 | + + + + + + +---------+ + + | (unknown) | (no date) | (unknown) | [facility] | (no | (units | (unknown) | | | | | [facility] value) | unknown) | | | [facility] | | | | + + + + +---------+ + + + + | Result panel 1379 | + + + + + + +---------+ + + | (unknown) | (no date) | (unknown) | [facility] | (no | (units | (unknown) | | | | | [facility] value) | unknown) | | | [facility] | | | | + + + + +---------+ + + + + | Result panel 1380 | + + + + + + +---------+ + + | (unknown) | (no date) | (unknown) | [facility] | (no | (units | (unknown) | | | | | [facility] | value) | unknown) | | | [facility] | | | | + + + + +---------+ + + + + | Result panel 1381 | + + + + + + +---------+ + + | (unknown) | (no date) | (unknown) | [facility] | (no | (units | (unknown) | | | | | [facility] | value) | unknown) | | | [facility] | | | | + + + + +---------+ + + + + | Result panel 1382 | + + + + + + +---------+ + + | (unknown) | (no date) | (unknown) | [facility] | (no | (units | (unknown) | | | | | [facility] | value) | unknown) | | | [facility] | | | | + + + + +---------+ + + + + | Result panel 1383 | + + + + + + +---------+ + + | (unknown) | (no date) | (unknown) | [facility] | (no | (units | (unknown) | | | | | [facility] | value) | unknown) | | | [facility] | | | | + + + + +---------+ + + + + | Result panel 1384 | + + + + + + +---------+ + + | (unknown) | (no date) | (unknown) | [facility] | (no | (units | (unknown) | | | | | [facility] | value) | unknown) | | | [facility] | | | | + + + + +---------+ + + + + | Result panel 1385 | + + + + + + +---------+ + + | (unknown) | (no date) | (unknown) | [facility] | (no | (units | (unknown) | | | | | [facility] | value) | unknown) | | | [facility] | | | | + + + + +---------+ + + + + | Result panel 1386 | + + + + + + +---------+ + + | (unknown) | (no date) | (unknown) | [facility] | (no | (units | (unknown) | | | | | [facility] | value) | unknown) | | [facility] | | | | + + + + +---------+ + + + + | Result panel 1387 | + + + + + + +---------+ + + | (unknown) | (no date) | (unknown) | [facility] | (no | (units | (unknown) | | | | | [facility] | value) | unknown) | | [facility] | | | | + + + + +---------+ + + + + | Result panel 1388 | + + + + + + +---------+ + + | (unknown) | (no date) | (unknown) | [facility] | (no | (units | (unknown) | | | | | [facility] | value) | unknown) | | [facility] | | | | + + + + +---------+ + + + + | Result panel 1389 | + + + + + + +---------+ + + | (unknown) | (no date) | (unknown) | [facility] | (no | (units | (unknown) | | | | | [facility] | value) | unknown) | [facility] | [facility] | | | | + + + + +---------+ + + + + | Result panel 1390 | + + + + + + +---------+ + + | (unknown) | (no date) | (unknown) | [facility] | (no | (units | (unknown) | | | | | [facility] | value) | unknown) | | [facility] | | | | + + + + +---------+ + + + + | Result panel 1391 | + + + + + + +---------+ + + | (unknown) | (no date) | (unknown) | [facility] | (no | (units | (unknown) | | | | | [facility] | value) | unknown) | [facility] | [facility] | | | | + + + + +---------+ + + + + | Result panel 1392 | + + + + + + +---------+ + + | (unknown) | (no date) | (unknown) | [facility] | (no | (units | (unknown) | | | | | [facility] | value) | unknown) | | | | [facility] | | | | + + + + +---------+ + + + + | Result panel 1393 | + + + + + + +---------+ + + | (unknown) | (no date) | (unknown) | [facility] | (no | (units | (unknown) | | | | | [facility] | value) | unknown) | [facility] | [facility] | | | | + + + + +---------+ + + + + | Result panel 1394 | + + + + + + +---------+ + + | (unknown) | (no date) | (unknown) | [facility] | (no | (units | (unknown) | | | | | [facility] | value) | unknown) | | | | [facility] | | | | + + + + +---------+ + + + + | Result panel 1395 | + + + + + + +---------+ + + | (unknown) | (no date) | (unknown) | [facility] | (no | (units | (unknown) | | | | | [facility] | value) | unknown) | | | | [facility] | | | | + + + + +---------+ + + + + | Result panel 1396 | + + + + + + +---------+ + + | (unknown) | (no date) | (unknown) | [facility] | (no | (units | (unknown) | | | | | [facility] | value) | unknown) | | | | [facility] | | | | + + + + +---------+ + + + + | Result panel 1397 | + + + + + + +---------+ + + | (unknown) | (no date) | (unknown) | [facility] | (no | (units | (unknown) | | | | | [facility] | value) | unknown) | [facility] | | [facility] | | | | + + + + +---------+ + + + + | Result panel 1398 | + + + + + + +---------+ + + | (unknown) | (no date) | (unknown) | [facility] | (no | (units | (unknown) | | | | | [facility] | value) | unknown) | | | | [facility] | | | | + + + + +---------+ + + + + | Result panel 1399 | + + + + + + +---------+ + + | (unknown) | (no date) | (unknown) | [facility] | (no | (units | (unknown) | | | | | [facility] | value) | unknown) | | | | [facility] | | | | + + + + +---------+ + + + + | Result panel 1400 | + + + + + + +---------+ + + | (unknown) | (no date) | (unknown) | [facility] | (no | (units | (unknown) | | | | | [facility] | value) | unknown) | | | | [facility] | | | | + + + + +---------+ + + + + | Result panel 1401 | + + + + + + +---------+ + + | (unknown) | (no date) | (unknown) | [facility] | (no | (units | (unknown) | | | | | [facility] | value) | unknown) | | | | [facility] | | | | + + + + +---------+ + + + + | Result panel 1402 | + + + + + + +---------+ + + | (unknown) | (no date) | (unknown) | [facility] | (no | (units | (unknown) | | | | | [facility] | value) | unknown) | [facility] | | [facility] | | | | + + + + +---------+ + + + + | Result panel 1403 | + + + + + + +---------+ + + | (unknown) | (no date) | (unknown) | [facility] | (no | (units | (unknown) | | | | | [facility] | value) | unknown) | | | | | [facility] | | | | + + + + +---------+ + + + + | Result panel 1404 | + + + + + + +---------+ + + | (unknown) | (no date) | (unknown) | [facility] | (no | (units | (unknown) | | | | | [facility] | value) | unknown) | | | | | [facility] | | | | + + + + +---------+ + + + + | Result panel 1405 | + + + + + + +---------+ + + | (unknown) | (no date) | (unknown) | [facility] | (no | (units | (unknown) | | | | | [facility] | value) | unknown) | | [facility] | [facility] | | | | + + + + +---------+ + + + + | Result panel 1406 | + + + + + + +---------+ + + | (unknown) | (no date) | (unknown) | [facility] | (no | (units | (unknown) | | | | | [facility] | value) | unknown) | | [facility] | [facility] | | | | + + + + +---------+ + + + + | Result panel 1407 | + + + + + + +---------+ + + | (unknown) | (no date) | (unknown) | [facility] | (no | (units | (unknown) | | | | | [facility] | value) | unknown) | | | | | [facility] | | | | + + + + +---------+ + + + + | Result panel 1408 | + + + + + + +---------+ + + | (unknown) | (no date) | (unknown) | [facility] | (no | (units | (unknown) | | | | | [facility] | value) | unknown) | | | | | [facility] | | | | + + + + +---------+ + + + + | Result panel 1409 | + + + + + + +---------+ + + | (unknown) | (no date) | (unknown) | [facility] | (no | (units | (unknown) | | | | | [facility] | value) | unknown) | | | | [facility] | | | | + + + + +---------+ + + + + | Result panel 1410 | + + + + + + +---------+ + + | (unknown) | (no date) | (unknown) | [facility] | (no | (units | (unknown) | | | | | [facility] | value) | unknown) | | | | [facility] | | | | + + + + +---------+ + + + + | Result panel 1411 | + + + + + + +---------+ + + | (unknown) | (no date) | (unknown) | [facility] | (no | (units | (unknown) | | | | | [facility] | value) | unknown) | | | | | [facility] | | | | + + + + +---------+ + + + + | Result panel 1412 | + + + + + + +---------+ + + | (unknown) | (no date) | (unknown) | [facility] | (no | (units | (unknown) | | | | | [facility] | value) | unknown) | | | | | [facility] | | | | + + + + +---------+ + + + + | Result panel 1413 | + + + + + + +---------+ + + | (unknown) | (no date) | (unknown) | [facility] | (no | (units | (unknown) | | | | | [facility] | value) | unknown) | | | | | [facility] | | | | + + + + +---------+ + + + + | Result panel 1414 | + + + + + + +---------+ + + | (unknown) | (no date) | (unknown) | [facility] | (no | (units | (unknown) | | | | | [facility] | value) | unknown) | | | | | [facility] | | | | + + + + +---------+ + + + + | Result panel 1415 | + + + + + + +---------+ + + | (unknown) | (no date) | (unknown) | [facility] | (no | (units | (unknown) | | | | | [facility] | value) | unknown) | | | | [facility] | | | | + + + + +---------+ + + + + | Result panel 1416 | + + + + + + +---------+ + + | (unknown) | (no date) | (unknown) | [facility] | (no | (units | (unknown) | | | | | [facility] | value) | unknown) | | | | | [facility] | | | | + + + + +---------+ + + + + | Result panel 1417 | + + + + + + +---------+ + + | (unknown) | (no date) | (unknown) | [facility] | (no | (units | (unknown) | | | | | [facility] | value) | unknown) | | | | | [facility] | | | | + + + + +---------+ + + + + | Result panel 1418 | + + + + + + +---------+ + + | (unknown) | (no date) | (unknown) | [facility] | (no | (units | (unknown) | | | | | [facility] | value) | unknown) | | | | [facility] | | | | + + + + +---------+ + + + + | Result panel 1419 | + + + + + + +---------+ + + | (unknown) | (no date) | (unknown) | [facility] | (no | (units | (unknown) | | | | | [facility] | value) | unknown) | | | | | [facility] | | | | + + + + +---------+ + + + + | Result panel 1420 | + + + + + + +---------+ + + | (unknown) | (no date) | (unknown) | [facility] | (no | (units | (unknown) | | | | | [facility] | value) | unknown) | | | | [facility] | | | | + + + + +---------+ + + + + | Result panel 1421 | + + + + + + +---------+ + + | (unknown) | (no date) | (unknown) | [facility] | (no | (units | (unknown) | | | | | [facility] | value) | unknown) | | [facility] | [facility] | | | | + + + + +---------+ + + + + | Result panel 1422 | + + + + + + +---------+ + + | (unknown) | (no date) | (unknown) | [facility] | (no | (units | (unknown) | | | | | [facility] | value) | unknown) | | | | | [facility] | | | | + + + + +---------+ + + + + | Result panel 1423 | + + + + + + +---------+ + + | (unknown) | (no date) | (unknown) | [facility] | (no | (units | (unknown) | | | | | [facility] | value) | unknown) | | | | [facility] | | | | + + + + +---------+ + + + + | Result panel 1424 | + + + + + + +---------+ + + | (unknown) | (no date) | (unknown) | [facility] | (no | (units | (unknown) | | | | | [facility] | value) | unknown) | | | | [facility] | | | | + + + + +---------+ + + + + | Result panel 1425 | + + + + + + +---------+ + + | (unknown) | (no date) | (unknown) | [facility] | (no | (units | (unknown) | | | | | [facility] | value) | unknown) | | | | [facility] | | | | + + + + +---------+ + + + + | Result panel 1426 | + + + + + + +---------+ + + | (unknown) | (no date) | (unknown) | [facility] | (no | (units | (unknown) | | | | | [facility] | value) | unknown) | | | | [facility] | | | | + + + + +---------+ + + + + | Result panel 1427 | + + + + + + +---------+ + + | (unknown) | (no date) | (unknown) | [facility] | (no | (units | (unknown) | | | | | [facility] | value) | unknown) | | | | [facility] | | | | + + + + +---------+ + + + + | Result panel 1428 | + + + + + + +---------+ + + | (unknown) | (no date) | (unknown) | [facility] | (no | (units | (unknown) | | | | | [facility] | value) | unknown) | | | | [facility] | | | | + + + + +---------+ + + + + | Result panel 1429 | + + + + + + +---------+ + + | (unknown) | (no date) | (unknown) | [facility] | (no | (units | (unknown) | | | | | [facility] | value) | unknown) | [facility] | [facility] | | | | + + + + +---------+ + + + + | Result panel 1430 | + + + + + + +---------+ + + | (unknown) | (no date) | (unknown) | [facility] | (no | (units | (unknown) | | | | | [facility] | value) | unknown) | [facility] | | | | + + + + +---------+ + + + + | Result panel 1431 | + + + + + + +---------+ + + | (unknown) | (no date) | (unknown) | [facility] | (no | (units | (unknown) | | | | | [facility] | value) | unknown) | | | | [facility] | | | | + + + + +---------+ + + + + | Result panel 1432 | + + + + + + +---------+ + + | (unknown) | (no date) | (unknown) | [facility] | (no | (units | (unknown) | | | | | [facility] | value) | unknown) | | | | [facility] | | | | + + + + +---------+ + + + + | Result panel 1433 | + + + + + + +---------+ + + | (unknown) | (no date) | (unknown) | [facility] | (no | (units | (unknown) | | | | | [facility] | value) | unknown) | | | [facility] | | | | + + + + +---------+ + + + + | Result panel 1434 | + + + + + + +---------+ + + | (unknown) | (no date) | (unknown) | [facility] | (no | (units | (unknown) | | | | | [facility] | value) | unknown) | | | | [facility] | | | | + + + + +---------+ + + + + | Result panel 1435 | + + + + + + +---------+ + + | (unknown) | (no date) | (unknown) | [facility] | (no | (units | (unknown) | | | | | [facility] | value) | unknown) | | | | | [facility] | | | | + + + + +---------+ + + + + | Result panel 1436 | + + + + + + +---------+ + + | (unknown) | (no date) | (unknown) | [facility] | (no | (units | (unknown) | | | | | [facility] | value) | unknown) | | | | [facility] | | | | + + + + +---------+ + + + + | Result panel 1437 | + + + + + + +---------+ + + | (unknown) | (no date) | (unknown) | [facility] | (no | (units | (unknown) | | | | | [facility] | value) | unknown) | | | | | [facility] | | | | + + + + +---------+ + + + + | Result panel 1438 | + + + + + + +---------+ + + | (unknown) | (no date) | (unknown) | [facility] | (no | (units | (unknown) | | | | | [facility] | value) | unknown) | | | | | [facility] | | | | + + + + +---------+ + + + + | Result panel 1439 | + + + + + + +---------+ + + | (unknown) | (no date) | (unknown) | [facility] | (no | (units | (unknown) | | | | | [facility] | value) | unknown) | | | | [facility] | | | | + + + + +---------+ + + + + | Result panel 1440 | + + + + + + +---------+ + + | (unknown) | (no date) | (unknown) | [facility] | (no | (units | (unknown) | | | | | [facility] | value) | unknown) | | | | [facility] | | | | + + + + +---------+ + + + + | Result panel 1441 | + + + + + + +---------+ + + | (unknown) | (no date) | (unknown) | [facility] | (no | (units | (unknown) | | | | | [facility] | value) | unknown) | | | | [facility] | | | | + + + + +---------+ + + + + | Result panel 1442 | + + + + + + +---------+ + + | (unknown) | (no date) | (unknown) | [facility] | (no | (units | (unknown) | | | | | [facility] | value) | unknown) | | | | [facility] | | | | + + + + +---------+ + + + + | Result panel 1443 | + + + + + + +---------+ + + | (unknown) | (no date) | (unknown) | [facility] | (no | (units | (unknown) | | | | | [facility] | value) | unknown) | [facility] | | [facility] | | | | + + + + +---------+ + + + + | Result panel 1444 | + + + + + + +---------+ + + | (unknown) | (no date) | (unknown) | [facility] | (no | (units | (unknown) | | | | | [facility] | value) | unknown) | | | | [facility] | | | | + + + + +---------+ + + + + | Result panel 1445 | + + + + + + +---------+ + + | (unknown) | (no date) | (unknown) | [facility] | (no | (units | (unknown) | | | | | [facility] | value) | unknown) | | | | [facility] | | | | + + + + +---------+ + + + + | Result panel 1446 | + + + + + + +---------+ + + | (unknown) | (no date) | (unknown) | [facility] | (no | (units | (unknown) | | | | | [facility] | value) | unknown) | | | | [facility] | | | | + + + + +---------+ + + + + | Result panel 1447 | + + + + + + +---------+ + + | (unknown) | (no date) | (unknown) | [facility] | (no | (units | (unknown) | | | | | [facility] | value) | unknown) | | | | | [facility] | | | | + + + + +---------+ + + + + | Result panel 1448 | + + + + + + +---------+ + + | (unknown) | (no date) | (unknown) | [facility] | (no | (units | (unknown) | | | | | [facility] | value) | unknown) | | | | [facility] | | | | + + + + +---------+ + + + + | Result panel 1449 | + + + + + + +---------+ + + | (unknown) | (no date) | (unknown) | [facility] | (no | (units | (unknown) | | | | | [facility] | value) | unknown) | | | | [facility] | | | | + + + + +---------+ + + + + | Result panel 1450 | + + + + + + +---------+ + + | (unknown) | (no date) | (unknown) | [facility] | (no | (units | (unknown) | | | | | [facility] | value) | unknown) | | | | | [facility] | | | | + + + + +---------+ + + + + | Result panel 1451 | + + + + + + +---------+ + + | (unknown) | (no date) | (unknown) | [facility] | (no | (units | (unknown) | | | | | [facility] | value) | unknown) | | | | [facility] | | | | + + + + +---------+ + + + + | Result panel 1452 | + + + + + + +---------+ + + | (unknown) | (no date) | (unknown) | [facility] | (no | (units | (unknown) | | | | | [facility] | value) | unknown) | [facility] | | [facility] | | | | + + + + +---------+ + + + + | Result panel 1453 | + + + + + + +---------+ + + | (unknown) | (no date) | (unknown) | [facility] | (no | (units | (unknown) | | | | | [facility] | value) | unknown) | | | | [facility] | | | | + + + + +---------+ + + + + | Result panel 1454 | + + + + + + +---------+ + + | (unknown) | (no date) | (unknown) | [facility] | (no | (units | (unknown) | | | | | [facility] | value) | unknown) | [facility] | | [facility] | | | | + + + + +---------+ + + + + | Result panel 1455 | + + + + + + +---------+ + + | (unknown) | (no date) | (unknown) | [facility] | (no | (units | (unknown) | | | | | [facility] | value) | unknown) | | [facility] | [facility] | | | | + + + + +---------+ + + + + | Result panel 1456 | + + + + + + +---------+ + + | (unknown) | (no date) | (unknown) | [facility] | (no | (units | (unknown) | | | | | [facility] | value) | unknown) | [facility] | | [facility] | | | | + + + + +---------+ + + + + | Result panel 1457 | + + + + + + +---------+ + + | (unknown) | (no date) | (unknown) | [facility] | (no | (units | (unknown) | | | | | [facility] | value) | unknown) | | | | [facility] | | | | + + + + +---------+ + + + + | Result panel 1458 | + + + + + + +---------+ + + | (unknown) | (no date) | (unknown) | [facility] | (no | (units | (unknown) | | | | | [facility] | value) | unknown) | | | | | [facility] | | | | + + + + +---------+ + + + + | Result panel 1459 | + + + + + + +---------+ + + | (unknown) | (no date) | (unknown) | [facility] | (no | (units | (unknown) | | | | | [facility] | value) | unknown) | | | | | [facility] | | | | + + + + +---------+ + + + + | Result panel 1460 | + + + + + + +---------+ + + | (unknown) | (no date) | (unknown) | [facility] | (no | (units | (unknown) | | | | | [facility] | value) | unknown) | | | | | [facility] | | | | + + + + +---------+ + + + + | Result panel 1461 | + + + + + + +---------+ + + | (unknown) | (no date) | (unknown) | [facility] | (no | (units | (unknown) | | | | | [facility] | value) | unknown) | | | | | [facility] | | | | + + + + +---------+ + + + + | Result panel 1462 | + + + + + + +---------+ + + | (unknown) | (no date) | (unknown) | [facility] | (no | (units | (unknown) | | | | | [facility] | value) | unknown) | | | | | [facility] | | | | + + + + +---------+ + + + + | Result panel 1463 | + + + + + + +---------+ + + | (unknown) | (no date) | (unknown) | [facility] | (no | (units | (unknown) | | | | | [facility] | value) | unknown) | | | | [facility] | | | | + + + + +---------+ + + + + | Result panel 1464 | + + + + + + +---------+ + + | (unknown) | (no date) | (unknown) | [facility] | (no | (units | (unknown) | | | | | [facility] | value) | unknown) | | | | [facility] | | | | + + + + +---------+ + + + + | Result panel 1465 | + + + + + + +---------+ + + | (unknown) | (no date) | (unknown) | [facility] | (no | (units | (unknown) | | | | | [facility] | value) | unknown) | | | | [facility] | | | | + + + + +---------+ + + + + | Result panel 1466 | + + + + + + +---------+ + + | (unknown) | (no date) | (unknown) | [facility] | (no | (units | (unknown) | | | | | [facility] | value) | unknown) | | | | [facility] | | | | + + + + +---------+ + + + + | Result panel 1467 | + + + + + + +---------+ + + | (unknown) | (no date) | (unknown) | [facility] | (no | (units | (unknown) | | | | | [facility] | value) | unknown) | | | | [facility] | | | | + + + + +---------+ + + + + | Result panel 1468 | + + + + + + +---------+ + + | (unknown) | (no date) | (unknown) | [facility] | (no | (units | (unknown) | | | | | [facility] | value) | unknown) | | | | [facility] | | | | + + + + +---------+ + + + + | Result panel 1469 | + + + + + + +---------+ + + | (unknown) | (no date) | (unknown) | [facility] | (no | (units | (unknown) | | | | | [facility] | value) | unknown) | | | | [facility] | | | | + + + + +---------+ + + + + | Result panel 1470 | + + + + + + +---------+ + + | (unknown) | (no date) | (unknown) | [facility] | (no | (units | (unknown) | | | | | [facility] | value) | unknown) | | | | [facility] | | | | + + + + +---------+ + + + + | Result panel 1471 | + + + + + + +---------+ + + | (unknown) | (no date) | (unknown) | [facility] | (no | (units | (unknown) | | | | | [facility] | value) | unknown) | | | | | [facility] | | | | + + + + +---------+ + + + + | Result panel 1472 | + + + + + + +---------+ + + | (unknown) | (no date) | (unknown) | [facility] | (no | (units | (unknown) | | | | | [facility] | value) | unknown) | | [facility] | [facility] | | | | + + + + +---------+ + + + + | Result panel 1473 | + + + + + + +---------+ + + | (unknown) | (no date) | (unknown) | [facility] | (no | (units | (unknown) | | | | | [facility] | value) | unknown) | | [facility] | [facility] | | | | + + + + +---------+ + + + + | Result panel 1474 | + + + + + + +---------+ + + | (unknown) | (no date) | (unknown) | [facility] | (no | (units | (unknown) | | | | | [facility] | value) | unknown) | | [facility] | [facility] | | | | + + + + +---------+ + + + + | Result panel 1475 | + + + + + + +---------+ + + | (unknown) | (no date) | (unknown) | [facility] | (no | (units | (unknown) | | | | | [facility] | value) | unknown) | | | | | | [facility] | | | | + + + + +---------+ + + + + | Result panel 1476 | + + + + + + +---------+ + + | (unknown) | (no date) | (unknown) | [facility] | (no | (units | (unknown) | | | | | [facility] | value) | unknown) | | | | | | [facility] | | | | + + + + +---------+ + + + + | Result panel 1477 | + + + + + + +---------+ + + | (unknown) | (no date) | (unknown) | [facility] | (no | (units | (unknown) | | | | | [facility] | value) | unknown) | | | | | | [facility] | | | | + + + + +---------+ + + + + | Result panel 1478 | + + + + + + +---------+ + + | (unknown) | (no date) | (unknown) | [facility] | (no | (units | (unknown) | | | | | [facility] | value) | unknown) | | | | | | [facility] | | | | + + + + +---------+ + + + + | Result panel 1479 | + + + + + + +---------+ + + | (unknown) | (no date) | (unknown) | [facility] | (no | (units | (unknown) | | | | | [facility] | value) | unknown) | | | | | | [facility] | | | | + + + + +---------+ + + + + | Result panel 1480 | + + + + + + +---------+ + + | (unknown) | (no date) | (unknown) | [facility] | (no | (units | (unknown) | | | | | [facility] | value) | unknown) | | | | | | [facility] | | | | + + + + +---------+ + + + + | Result panel 1481 | + + + + + + +---------+ + + | (unknown) | (no date) | (unknown) | [facility] | (no | (units | (unknown) | | | | | [facility] | value) | unknown) | | | | | | [facility] | | | | + + + + +---------+ + + + + | Result panel 1482 | + + + + + + +---------+ + + | (unknown) | (no date) | (unknown) | [facility] | (no | (units | (unknown) | | | | | [facility] | value) | unknown) | | | | | | [facility] | | | | + + + + +---------+ + + + + | Result panel 1483 | + + + + + + +---------+ + + | (unknown) | (no date) | (unknown) | [facility] | (no | (units | (unknown) | | | | | [facility] | value) | unknown) | | | | | | [facility] | | | | + + + + +---------+ + + + + | Result panel 1484 | + + + + + + +---------+ + + | (unknown) | (no date) | (unknown) | [facility] | (no | (units | (unknown) | | | | [facility] value[facility] | unknown) | | [facility] | | | | + + + + +---------+ + + + + | Result panel 1485 | + + + + + + +---------+ + + | (unknown) | (no date) | (unknown) | [facility] | (no | (units | (unknown) | | | | | [facility] | value) | unknown) | | [facility] | | | | + + + + +---------+ + + + + | Result panel 1486 | + + + + + + +---------+ + + | (unknown) | (no date) | (unknown) | [facility] | (no | (units | (unknown) | | | | [facility] | value) | unknown) | | [facility] | | | | + + + + +---------+ + + + + | Result panel 1487 | + + + + + + +---------+ + + | (unknown) | (no date) | (unknown) | [facility] | (no | (units | (unknown) | | | | [facility] | value) | unknown) | | [facility] | | | | + + + + +---------+ + + + + | Result panel 1488 | + + + + + + +---------+ + + | (unknown) | (no date) | (unknown) | [facility] | (no | (units | (unknown) | | | | | [facility] | value) | unknown) | | [facility] | | | | + + + + +---------+ + + + + | Result panel 1489 | + + + + + + +---------+ + + | (unknown) | (no date) | (unknown) | [facility] | (no | (units | (unknown) | | | | | [facility] | value) | unknown) | | | [facility] | | | | + + + + +---------+ + + + + | Result panel 1490 | + + + + + + +---------+ + + | (unknown) | (no date) | (unknown) | [facility] | (no | (units | (unknown) | | | | | [facility] | value) | unknown) | | [facility] | | | | + + + + +---------+ + + + + | Result panel 1491 | + + + + + + +---------+ + + | (unknown) | (no date) | (unknown) | [facility] | (no | (units | (unknown) | | | | | [facility] | value) | unknown) | | | [facility] | | | | + + + + +---------+ + + + + | Result panel 1492 | + + + + + + +---------+ + + | (unknown) | (no date) | (unknown) | [facility] | (no | (units | (unknown) | | | | | [facility] | value) | unknown) | | [facility] | | | | + + + + +---------+ + + + + | Result panel 1493 | + + + + + + +---------+ + + | (unknown) | (no date) | (unknown) | [facility] | (no | (units | (unknown) | | | | [facility] | value) | unknown) | | | | [facility] | | | | + + + + +---------+ + + + + | Result panel 1494 | + + + + + + +---------+ + + | (unknown) | (no date) | (unknown) | [facility] | (no | (units | (unknown) | | | | | [facility] value) | unknown) | | [facility] | | | | + + + + +---------+ + + + + | Result panel 1495 | + + + + + + +---------+ + + | (unknown) | (no date) | (unknown) | [facility] | (no | (units | (unknown) | | | | | [facility] | value) | unknown) | | | [facility] | | | | + + + + +---------+ + + + + | Result panel 1496 | + + + + + + +---------+ + + | (unknown) | (no date) | (unknown) | [facility] | (no | (units | (unknown) | | | | | [facility] | value) | unknown) | | | [facility] | | | | + + + + +---------+ + + + + | Result panel 1497 | + + + + + + +---------+ + + | (unknown) | (no date) | (unknown) | [facility] | (no | (units | (unknown) | | | | | [facility] | value) | unknown) | [facility] | | | | + + + + +---------+ + + + + | Result panel 1498 | + + + + + + +---------+ + + | (unknown) | (no date) | (unknown) | [facility] | (no | (units | (unknown) | | | | | [facility] | value) | unknown) | | | | [facility] | | | | + + + + +---------+ + + + + | Result panel 1499 | + + + + + + +---------+ + + | (unknown) | (no date) | (unknown) | [facility] | (no | (units | (unknown) | | | | | [facility] | value) | unknown) | | | [facility] | | | | + + + + +---------+ + + + + | Result panel 1500 | + + + + + + +---------+ + + | (unknown) | (no date) | (unknown) | [facility] | (no | (units | (unknown) | | | | | [facility] | value) | unknown) | | [facility] | | | | + + + + +---------+ + + + + | Result panel 1501 | + + + + + + +---------+ + + | (unknown) | (no date) | (unknown) | [facility] | (no | (units | (unknown) | | | | | [facility] | value) | unknown) | | [facility] | | | | + + + + +---------+ + + + + | Result panel 1502 | + + + + + + +---------+ + + | (unknown) | (no date) | (unknown) | [facility] | (no | (units | (unknown) | | | | | [facility] | value) | unknown) | [facility] | [facility] | | | | + + + + +---------+ + + + + | Result panel 1503 | + + + + + + +---------+ + + | (unknown) | (no date) | (unknown) | [facility] | (no | (units | (unknown) | | | | | [facility] | value) | unknown) | | | | [facility] | | | | + + + + +---------+ + + + + | Result panel 1504 | + + + + + + +---------+ + + | (unknown) | (no date) | (unknown) | [facility] | (no | (units | (unknown) | | | | | [facility] | value) | unknown) | | | | [facility] | | | | + + + + +---------+ + + + + | Result panel 1505 | + + + + + + +---------+ + + | (unknown) | (no date) | (unknown) | [facility] | (no | (units | (unknown) | | | | | [facility] | value) | unknown) | | | | [facility] | | | | + + + + +---------+ + + + + | Result panel 1506 | + + + + + + +---------+ + + | (unknown) | (no date) | (unknown) | [facility] | (no | (units | (unknown) | | | | | [facility] | value) | unknown) | | | | [facility] | | | | + + + + +---------+ + + + + | Result panel 1507 | + + + + + + +---------+ + + | (unknown) | (no date) | (unknown) | [facility] | (no | (units | (unknown) | | | | | [facility] | value) | unknown) | | | | [facility] | | | | + + + + +---------+ + + + + | Result panel 1508 | + + + + + + +---------+ + + | (unknown) | (no date) | (unknown) | [facility] | (no | (units | (unknown) | | | | | [facility] | value) | unknown) | | | | | [facility] | | | | + + + + +---------+ + + + + | Result panel 1509 | + + + + + + +---------+ + + | (unknown) | (no date) | (unknown) | [facility] | (no | (units | (unknown) | | | | | [facility] | value) | unknown) | [facility] | | [facility] | | | | + + + + +---------+ + + + + | Result panel 1510 | + + + + + + +---------+ + + | (unknown) | (no date) | (unknown) | [facility] | (no | (units | (unknown) | | | | | [facility] | value) | unknown) | | | | [facility] | | | | + + + + +---------+ + + + + | Result panel 1511 | + + + + + + +---------+ + + | (unknown) | (no date) | (unknown) | [facility] | (no | (units | (unknown) | | | | | [facility] | value) | unknown) | | | | [facility] | | | | + + + + +---------+ + + + + | Result panel 1512 | + + + + + + +---------+ + + | (unknown) | (no date) | (unknown) | [facility] | (no | (units | (unknown) | | | | | [facility] | value) | unknown) | | | | | [facility] | | | | + + + + +---------+ + + + + | Result panel 1513 | + + + + + + +---------+ + + | (unknown) | (no date) | (unknown) | [facility] | (no | (units | (unknown) | | | | | [facility] | value) | unknown) | | | | [facility] | | | | + + + + +---------+ + + + + | Result panel 1514 | + + + + + + +---------+ + + | (unknown) | (no date) | (unknown) | [facility] | (no | (units | (unknown) | | | | | [facility] | value) | unknown) | | | | | [facility] | | | | + + + + +---------+ + + + + | Result panel 1515 | + + + + + + +---------+ + + | (unknown) | (no date) | (unknown) | [facility] | (no | (units | (unknown) | | | | | [facility] | value) | unknown) | | | | [facility] | | | | + + + + +---------+ + + + + | Result panel 1516 | + + + + + + +---------+ + + | (unknown) | (no date) | (unknown) | [facility] | (no | (units | (unknown) | | | | | [facility] | value) | unknown) | | [facility] | [facility] | | | | + + + + +---------+ + + + + | Result panel 1517 | + + + + + + +---------+ + + | (unknown) | (no date) | (unknown) | [facility] | (no | (units | (unknown) | | | | | [facility] | value) | unknown) | | | | [facility] | | | | + + + + +---------+ + + + + | Result panel 1518 | + + + + + + +---------+ + + | (unknown) | (no date) | (unknown) | [facility] | (no | (units | (unknown) | | | | | [facility] | value) | unknown) | [facility] | | [facility] | | | | + + + + +---------+ + + + + | Result panel 1519 | + + + + + + +---------+ + + | (unknown) | (no date) | (unknown) | [facility] | (no | (units | (unknown) | | | | | [facility] | value) | unknown) | [facility] | | [facility] | | | | + + + + +---------+ + + + + | Result panel 1520 | + + + + + + +---------+ + + | (unknown) | (no date) | (unknown) | [facility] | (no | (units | (unknown) | | | | | [facility] | value) | unknown) | | | | [facility] | | | | + + + + +---------+ + + + + | Result panel 1521 | + + + + + + +---------+ + + | (unknown) | (no date) | (unknown) | [facility] | (no | (units | (unknown) | | | | | [facility] | value) | unknown) | | [facility] | [facility] | | | | + + + + +---------+ + + + + | Result panel 1522 | + + + + + + +---------+ + + | (unknown) | (no date) | (unknown) | [facility] | (no | (units | (unknown) | | | | | [facility] | value) | unknown) | | | | [facility] | | | | + + + + +---------+ + + + + | Result panel 1523 | + + + + + + +---------+ + + | (unknown) | (no date) | (unknown) | [facility] | (no | (units | (unknown) | | | | | [facility] | value) | unknown) | | | | [facility] | | | | + + + + +---------+ + + + + | Result panel 1524 | + + + + + + +---------+ + + | (unknown) | (no date) | (unknown) | [facility] | (no | (units | (unknown) | | | | | [facility] | value) | unknown) | | | | [facility] | | | | + + + + +---------+ + + + + | Result panel 1525 | + + + + + + +---------+ + + | (unknown) | (no date) | (unknown) | [facility] | (no | (units | (unknown) | | | | | [facility] | value) | unknown) | | | | [facility] | | | | + + + + +---------+ + + + + | Result panel 1526 | + + + + + + +---------+ + + | (unknown) | (no date) | (unknown) | [facility] | (no | (units | (unknown) | | | | | [facility] | value) | unknown) | | | | | [facility] | | | | + + + + +---------+ + + + + | Result panel 1527 | + + + + + + +---------+ + + | (unknown) | (no date) | (unknown) | [facility] | (no | (units | (unknown) | | | | | [facility] | value) | unknown) | | | | | [facility] | | | | + + + + +---------+ + + + + | Result panel 1528 | + + + + + + +---------+ + + | (unknown) | (no date) | (unknown) | [facility] | (no | (units | (unknown) | | | | | [facility] | value) | unknown) | | | | | [facility] | | | | + + + + +---------+ + + + + | Result panel 1529 | + + + + + + +---------+ + + | (unknown) | (no date) | (unknown) | [facility] | (no | (units | (unknown) | | | | | [facility] | value) | unknown) | | | | [facility] | | | | + + + + +---------+ + + + + | Result panel 1530 | + + + + + + +---------+ + + | (unknown) | (no date) | (unknown) | [facility] | (no | (units | (unknown) | | | | | [facility] | value) | unknown) | | | | [facility] | | | | + + + + +---------+ + + + + | Result panel 1531 | + + + + + + +---------+ + + | (unknown) | (no date) | (unknown) | [facility] | (no | (units | (unknown) | | | | | [facility] | value) | unknown) | [facility] | | [facility] | | | | + + + + +---------+ + + + + | Result panel 1532 | + + + + + + +---------+ + + | (unknown) | (no date) | (unknown) | [facility] | (no | (units | (unknown) | | | | | [facility] | value) | unknown) | | | | [facility] | | | | + + + + +---------+ + + + + | Result panel 1533 | + + + + + + +---------+ + + | (unknown) | (no date) | (unknown) | [facility] | (no | (units | (unknown) | | | | | [facility] | value) | unknown) | | | | [facility] | | | | + + + + +---------+ + + + + | Result panel 1534 | + + + + + + +---------+ + + | (unknown) | (no date) | (unknown) | [facility] | (no | (units | (unknown) | | | | | [facility] | value) | unknown) | [facility] | | [facility] | | | | + + + + +---------+ + + + + | Result panel 1535 | + + + + + + +---------+ + + | (unknown) | (no date) | (unknown) | [facility] | (no | (units | (unknown) | | | | | [facility] | value) | unknown) | | | | | [facility] | | | | + + + + +---------+ + + + + | Result panel 1536 | + + + + + + +---------+ + + | (unknown) | (no date) | (unknown) | [facility] | (no | (units | (unknown) | | | | | [facility] | value) | unknown) | [facility] | | [facility] | | | | + + + + +---------+ + + + + | Result panel 1537 | + + + + + + +---------+ + + | (unknown) | (no date) | (unknown) | [facility] | (no | (units | (unknown) | | | | | [facility] | value) | unknown) | [facility] | | [facility] | | | | + + + + +---------+ + + + + | Result panel 1538 | + + + + + + +---------+ + + | (unknown) | (no date) | (unknown) | [facility] | (no | (units | (unknown) | | | | | [facility] | value) | unknown) | | | | | [facility] | | | | + + + + +---------+ + + + + | Result panel 1539 | + + + + + + +---------+ + + | (unknown) | (no date) | (unknown) | [facility] | (no | (units | (unknown) | | | | | [facility] | value) | unknown) | | [facility] | [facility] | | | | + + + + +---------+ + + + + | Result panel 1540 | + + + + + + +---------+ + + | (unknown) | (no date) | (unknown) | [facility] | (no | (units | (unknown) | | | | | [facility] | value) | unknown) | [facility] | | [facility] | | | | + + + + +---------+ + + + + | Result panel 1541 | + + + + + + +---------+ + + | (unknown) | (no date) | (unknown) | [facility] | (no | (units | (unknown) | | | | | [facility] | value) | unknown) | | | | [facility] | | | | + + + + +---------+ + + + + | Result panel 1542 | + + + + + + +---------+ + + | (unknown) | (no date) | (unknown) | [facility] | (no | (units | (unknown) | | | | | [facility] | value) | unknown) | | | | [facility] | | | | + + + + +---------+ + + + + | Result panel 1543 | + + + + + + +---------+ + + | (unknown) | (no date) | (unknown) | [facility] | (no | (units | (unknown) | | | | | [facility] | value) | unknown) | | | | [facility] | | | | + + + + +---------+ + + + + | Result panel 1544 | + + + + + + +---------+ + + | (unknown) | (no date) | (unknown) | [facility] | (no | (units | (unknown) | | | | | [facility] | value) | unknown) | | | | [facility] | | | | + + + + +---------+ + + + + | Result panel 1545 | + + + + + + +---------+ + + | (unknown) | (no date) | (unknown) | [facility] | (no | (units | (unknown) | | | | | [facility] | value) | unknown) | | | | [facility] | | | | + + + + +---------+ + + + + | Result panel 1546 | + + + + + + +---------+ + + | (unknown) | (no date) | (unknown) | [facility] | (no | (units | (unknown) | | | | | [facility] | value) | unknown) | | | | [facility] | | | | + + + + +---------+ + + + + | Result panel 1547 | + + + + + + +---------+ + + | (unknown) | (no date) | (unknown) | [facility] | (no | (units | (unknown) | | | | | [facility] | value) | unknown) | | | | [facility] | | | | + + + + +---------+ + + + + | Result panel 1548 | + + + + + + +---------+ + + | (unknown) | (no date) | (unknown) | [facility] | (no | (units | (unknown) | | | | | [facility] | value) | unknown) | | | | | [facility] | | | | + + + + +---------+ + + + + | Result panel 1549 | + + + + + + +---------+ + + | (unknown) | (no date) | (unknown) | [facility] | (no | (units | (unknown) | | | | | [facility] | value) | unknown) | | | | | [facility] | | | | + + + + +---------+ + + + + | Result panel 1550 | + + + + + + +---------+ + + | (unknown) | (no date) | (unknown) | [facility] | (no | (units | (unknown) | | | | | [facility] | value) | unknown) | | | | [facility] | | | | + + + + +---------+ + + + + | Result panel 1551 | + + + + + + +---------+ + + | (unknown) | (no date) | (unknown) | [facility] | (no | (units | (unknown) | | | | | [facility] | value) | unknown) | | | | | [facility] | | | | + + + + +---------+ + + + + | Result panel 1552 | + + + + + + +---------+ + + | (unknown) | (no date) | (unknown) | [facility] | (no | (units | (unknown) | | | | | [facility] | value) | unknown) | [facility] | | [facility] | | | | + + + + +---------+ + + + + | Result panel 1553 | + + + + + + +---------+ + + | (unknown) | (no date) | (unknown) | [facility] | (no | (units | (unknown) | | | | | [facility] | value) | unknown) | | | | [facility] | | | | + + + + +---------+ + + + + | Result panel 1554 | + + + + + + +---------+ + + | (unknown) | (no date) | (unknown) | [facility] | (no | (units | (unknown) | | | | | [facility] | value) | unknown) | | [facility] | | | | + + + + +---------+ + + + + | Result panel 1555 | + + + + + + +---------+ + + | (unknown) | (no date) | (unknown) | [facility] | (no | (units | (unknown) | | | | | [facility] | value) | unknown) | | | | [facility] | | | | + + + + +---------+ + + + + | Result panel 1556 | + + + + + + +---------+ + + | (unknown) | (no date) | (unknown) | [facility] | (no | (units | (unknown) | | | | | [facility] | value) | unknown) | | | | [facility] | | | | + + + + +---------+ + + + + | Result panel 1557 | + + + + + + +---------+ + + | (unknown) | (no date) | (unknown) | [facility] | (no | (units | (unknown) | | | | | [facility] | value) | unknown) | | | | [facility] | | | | + + + + +---------+ + + + + | Result panel 1558 | + + + + + + +---------+ + + | (unknown) | (no date) | (unknown) | [facility] | (no | (units | (unknown) | | | | | [facility] | value) | unknown) | [facility] | | [facility] | | | | + + + + +---------+ + + + + | Result panel 1559 | + + + + + + +---------+ + + | (unknown) | (no date) | (unknown) | [facility] | (no | (units | (unknown) | | | | | [facility] | value) | unknown) | [facility] | | [facility] | | | | + + + + +---------+ + + + + | Result panel 1560 | + + + + + + +---------+ + + | (unknown) | (no date) | (unknown) | [facility] | (no | (units | (unknown) | | | | | [facility] | value) | unknown) | | [facility] | [facility] | | | | + + + + +---------+ + + + + | Result panel 1561 | + + + + + + +---------+ + + | (unknown) | (no date) | (unknown) | [facility] | (no | (units | (unknown) | | | | | [facility] | value) | unknown) | | | | | [facility] | | | | + + + + +---------+ + + + + | Result panel 1562 | + + + + + + +---------+ + + | (unknown) | (no date) | (unknown) | [facility] | (no | (units | (unknown) | | | | | [facility] | value) | unknown) | | | | [facility] | | | | + + + + +---------+ + + + + | Result panel 1563 | + + + + + + +---------+ + + | (unknown) | (no date) | (unknown) | [facility] | (no | (units | (unknown) | | | | | [facility] | value) | unknown) | | | | [facility] | | | | + + + + +---------+ + + + + | Result panel 1564 | + + + + + + +---------+ + + | (unknown) | (no date) | (unknown) | [facility] | (no | (units | (unknown) | | | | | [facility] | value) | unknown) | | | | [facility] | | | | + + + + +---------+ + + + + | Result panel 1565 | + + + + + + +---------+ + + | (unknown) | (no date) | (unknown) | [facility] | (no | (units | (unknown) | | | | | [facility] | value) | unknown) | [facility] | | [facility] | | | | + + + + +---------+ + + + + | Result panel 1566 | + + + + + + +---------+ + + | (unknown) | (no date) | (unknown) | [facility] | (no | (units | (unknown) | | | | | [facility] | value) | unknown) | | | | [facility] | | | | + + + + +---------+ + + + + | Result panel 1567 | + + + + + + +---------+ + + | (unknown) | (no date) | (unknown) | [facility] | (no | (units | (unknown) | | | | | [facility] | value) | unknown) | | | | [facility] | | | | + + + + +---------+ + + + + | Result panel 1568 | + + + + + + +---------+ + + | (unknown) | (no date) | (unknown) | [facility] | (no | (units | (unknown) | | | | | [facility] | value) | unknown) | | | | | [facility] | | | | + + + + +---------+ + + + + | Result panel 1569 | + + + + + + +---------+ + + | (unknown) | (no date) | (unknown) | [facility] | (no | (units | (unknown) | | | | | [facility] | value) | unknown) | | | | | [facility] | | | | + + + + +---------+ + + + + | Result panel 1570 | + + + + + + +---------+ + + | (unknown) | (no date) | (unknown) | [facility] | (no | (units | (unknown) | | | | | [facility] | value) | unknown) | | [facility] | [facility] | | | | + + + + +---------+ + + + + | Result panel 1571 | + + + + + + +---------+ + + | (unknown) | (no date) | (unknown) | [facility] | (no | (units | (unknown) | | | | | [facility] | value) | unknown) | [facility] | | [facility] | | | | + + + + +---------+ + + + + | Result panel 1572 | + + + + + + +---------+ + + | (unknown) | (no date) | (unknown) | [facility] | (no | (units | (unknown) | | | | | [facility] | value) | unknown) | | | | [facility] | | | | + + + + +---------+ + + + + | Result panel 1573 | + + + + + + +---------+ + + | (unknown) | (no date) | (unknown) | [facility] | (no | (units | (unknown) | | | | | [facility] | value) | unknown) | | [facility] | [facility] | | | | + + + + +---------+ + + + + | Result panel 1574 | + + + + + + +---------+ + + | (unknown) | (no date) | (unknown) | [facility] | (no | (units | (unknown) | | | | | [facility] | value) | unknown) | | | | [facility] | | | | + + + + +---------+ + + + + | Result panel 1575 | + + + + + + +---------+ + + | (unknown) | (no date) | (unknown) | [facility] | (no | (units | (unknown) | | | | | [facility] | value) | unknown) | [facility] | | [facility] | | | | + + + + +---------+ + + + + | Result panel 1576 | + + + + + + +---------+ + + | (unknown) | (no date) | (unknown) | [facility] | (no | (units | (unknown) | | | | | [facility] | value) | unknown) | | | | [facility] | | | | + + + + +---------+ + + + + | Result panel 1577 | + + + + + + +---------+ + + | (unknown) | (no date) | (unknown) | [facility] | (no | (units | (unknown) | | | | | [facility] | value) | unknown) | | | | [facility] | | | | + + + + +---------+ + + + + | Result panel 1578 | + + + + + + +---------+ + + | (unknown) | (no date) | (unknown) | [facility] | (no | (units | (unknown) | | | | | [facility] | value) | unknown) | | | | [facility] | | | | + + + + +---------+ + + + + | Result panel 1579 | + + + + + + +---------+ + + | (unknown) | (no date) | (unknown) | [facility] | (no | (units | (unknown) | | | | | [facility] | value) | unknown) | [facility] | | [facility] | | | | + + + + +---------+ + + + + | Result panel 1580 | + + + + + + +---------+ + + | (unknown) | (no date) | (unknown) | [facility] | (no | (units | (unknown) | | | | | [facility] | value) | unknown) | | | | [facility] | | | | + + + + +---------+ + + + + | Result panel 1581 | + + + + + + +---------+ + + | (unknown) | (no date) | (unknown) | [facility] | (no | (units | (unknown) | | | | | [facility] | value) | unknown) | | | | [facility] | | | | + + + + +---------+ + + + + | Result panel 1582 | + + + + + + +---------+ + + | (unknown) | (no date) | (unknown) | [facility] | (no | (units | (unknown) | | | | | [facility] | value) | unknown) | | [facility] | [facility] | | | | + + + + +---------+ + + + + | Result panel 1583 | + + + + + + +---------+ + + | (unknown) | (no date) | (unknown) | [facility] | (no | (units | (unknown) | | | | | [facility] | value) | unknown) | [facility] | | | | + + + + +---------+ + + + + | Result panel 1584 | + + + + + + +---------+ + + | (unknown) | (no date) | (unknown) | [facility] | (no | (units | (unknown) | | | | | [facility] | value) | unknown) | | | | [facility] | | | | + + + + +---------+ + + + + | Result panel 1585 | + + + + + + +---------+ + + | (unknown) | (no date) | (unknown) | [facility] | (no | (units | (unknown) | | | | | [facility] | value) | unknown) | | | | [facility] | | | | + + + + +---------+ + + + + | Result panel 1586 | + + + + + + +---------+ + + | (unknown) | (no date) | (unknown) | [facility] | (no | (units | (unknown) | | | | | [facility] | value) | unknown) | | | | | | [facility] | | | | + + + + +---------+ + + + + | Result panel 1587 | + + + + + + +---------+ + + | (unknown) | (no date) | (unknown) | [facility] | (no | (units | (unknown) | | | | | [facility] | value) | unknown) | | | | | | [facility] | | | | + + + + +---------+ + + + + | Result panel 1588 | + + + + + + +---------+ + + | (unknown) | (no date) | (unknown) | [facility] | (no | (units | (unknown) | | | | | [facility] | value) | unknown) | | | | | [facility] | | | | + + + + +---------+ + + + + | Result panel 1589 | + + + + + + +---------+ + + | (unknown) | (no date) | (unknown) | [facility] | (no | (units | (unknown) | | | | | [facility] | value) | unknown) | | | | | [facility] | | | | + + + + +---------+ + + + + | Result panel 1590 | + + + + + + +---------+ + + | (unknown) | (no date) | (unknown) | [facility] | (no | (units | (unknown) | | | | | [facility] | value) | unknown) | | | | | | [facility] | | | | + + + + +---------+ + + + + | Result panel 1591 | + + + + + + +---------+ + + | (unknown) | (no date) | (unknown) | [facility] | (no | (units | (unknown) | | | | | [facility] | value) | unknown) | | | | | [facility] | | | | + + + + +---------+ + + + + | Result panel 1592 | + + + + + + +---------+ + + | (unknown) | (no date) | (unknown) | [facility] | (no | (units | (unknown) | | | | | [facility] | value) | unknown) | | | | | [facility] | | | | + + + + +---------+ + + + + | Result panel 1593 | + + + + + + +---------+ + + | (unknown) | (no date) | (unknown) | [facility] | (no | (units | (unknown) | | | | | [facility] | value) | unknown) | | | | | | [facility] | | | | + + + + +---------+ + + + + | Result panel 1594 | + + + + + + +---------+ + + | (unknown) | (no date) | (unknown) | [facility] | (no | (units | (unknown) | | | | | [facility] value[facility] | unknown) | | | | | [facility] | | | | + + + + +---------+ + + + + | Result panel 1595 | + + + + + + +---------+ + + | (unknown) | (no date) | (unknown) | [facility] | (no | (units | (unknown) | | | | | [facility] | value) | unknown) | | | [facility] | | | | + + + + +---------+ + + + + | Result panel 1596 | + + + + + + +---------+ + + | (unknown) | (no date) | (unknown) | [facility] | (no | (units | (unknown) | | | | | [facility] value[facility] | unknown) | | [facility] | | | | + + + + +---------+ + + + + | Result panel 1597 | + + + + + + +---------+ + + | (unknown) | (no date) | (unknown) | [facility] | (no | (units | (unknown) | | | | | [facility] value[facility] | unknown) | | [facility] | | | | + + + + +---------+ + + + + | Result panel 1598 | + + + + + + +---------+ + + | (unknown) | (no date) | (unknown) | [facility] | (no | (units | (unknown) | | | | | [facility] value) | unknown) | | [facility] | | | | + + + + +---------+ + + + + | Result panel 1599 | + + + + + + +---------+ + + | (unknown) | (no date) | (unknown) | [facility] | (no | (units | (unknown) | | | | | [facility] value) | unknown) | | | [facility] | | | | + + + + +---------+ + + + + | Result panel 1600 | + + + + + + +---------+ + + | (unknown) | (no date) | (unknown) | [facility] | (no | (units | (unknown) | | | | | [facility] value) | unknown) | | | [facility] | | | | + + + + +---------+ + + + + | Result panel 1601 | + + + + + + +---------+ + + | (unknown) | (no date) | (unknown) | [facility] | (no | (units | (unknown) | | | | | [facility] | value) | unknown) | | | [facility] | | | | + + + + +---------+ + + + + | Result panel 1602 | + + + + + + +---------+ + + | (unknown) | (no date) | (unknown) | [facility] | (no | (units | (unknown) | | | | | [facility] | value) | unknown) | | | [facility] | | | | + + + + +---------+ + + + + | Result panel 1603 | + + + + + + +---------+ + + | (unknown) | (no date) | (unknown) | [facility] | (no | (units | (unknown) | | | | | [facility]) | unknown) | | | [facility] | | | | + + + + +---------+ + + + + | Result panel 1604 | + + + + + + +---------+ + + | (unknown) | (no date) | (unknown) | [facility] | (no | (units | (unknown) | | | | | [facility] value) | unknown) | | | [facility] | | | | + + + + +---------+ + + + + | Result panel 1605 | + + + + + + +---------+ + + | (unknown) | (no date) | (unknown) | [facility] | (no | (units | (unknown) | | | | | [facility] value) | unknown) | | | [facility] | | | | + + + + +---------+ + + + + | Result panel 1606 | + + + + + + +---------+ + + | (unknown) | (no date) | (unknown) | [facility] | (no | (units | (unknown) | | | | | [facility] value) | unknown) | | | [facility] | | | | + + + + +---------+ + + + + | Result panel 1607 | + + + + + + +---------+ + + | (unknown) | (no date) | (unknown) | [facility] | (no | (units | (unknown) | | | | | [facility] value) | unknown) | | | [facility] | | | | + + + + +---------+ + + + + | Result panel 1608 | + + + + + + +---------+ + + | (unknown) | (no date) | (unknown) | [facility] | (no | (units | (unknown) | | | | | [facility] | value) | unknown) | | | | [facility] | | | | + + + + +---------+ + + + + | Result panel 1609 | + + + + + + +---------+ + + | (unknown) | (no date) | (unknown) | [facility] | (no | (units | (unknown) | | | | | [facility] | value) | unknown) | | | [facility] | | | | + + + + +---------+ + + + + | Result panel 1610 | + + + + + + +---------+ + + | (unknown) | (no date) | (unknown) | [facility] | (no | (units | (unknown) | | | | | [facility] value) | unknown) | | [facility] | | | | + + + + +---------+ + + + + | Result panel 1611 | + + + + + + +---------+ + + | (unknown) | (no date) | (unknown) | [facility] | (no | (units | (unknown) | | | | | [facility] | value) | unknown) | | | [facility] | | | | + + + + +---------+ + + + + | Result panel 1612 | + + + + + + +---------+ + + | (unknown) | (no date) | (unknown) | [facility] | (no | (units | (unknown) | | | | | [facility] value) | unknown) | | | [facility] | | | | + + + + +---------+ + + + + | Result panel 1613 | + + + + + + +---------+ + + | (unknown) | (no date) | (unknown) | [facility] | (no | (units | (unknown) | | | | | [facility] value) | unknown) | | [facility] | | | | + + + + +---------+ + + + + | Result panel 1614 | + + + + + + +---------+ + + | (unknown) | (no date) | (unknown) | [facility] | (no | (units | (unknown) | | | | | [facility] value) | unknown) | | | [facility] | | | | + + + + +---------+ + + + + | Result panel 1615 | + + + + + + +---------+ + + | (unknown) | (no date) | (unknown) | [facility] | (no | (units | (unknown) | | | | | [facility] | value) | unknown) | | | | [facility] | | | | + + + + +---------+ + + + + | Result panel 1616 | + + + + + + +---------+ + + | (unknown) | (no date) | (unknown) | [facility] | (no | (units | (unknown) | | | | | [facility] value) | unknown) | [facility] | | | | + + + + +---------+ + + + + | Result panel 1617 | + + + + + + +---------+ + + | (unknown) | (no date) | (unknown) | [facility] | (no | (units | (unknown) | | | | | [facility] | value) | unknown) | | | | [facility] | | | | + + + + +---------+ + + + + | Result panel 1618 | + + + + + + +---------+ + + | (unknown) | (no date) | (unknown) | [facility] | (no | (units | (unknown) | | | | | [facility] | value) | unknown) | [facility] | | [facility] | | | | + + + + +---------+ + + + + | Result panel 1619 | + + + + + + +---------+ + + | (unknown) | (no date) | (unknown) | [facility] | (no | (units | (unknown) | | | | | [facility] value) | unknown) | [facility] | [facility] | | | | + + + + +---------+ + + + + | Result panel 1620 | + + + + + + +---------+ + + | (unknown) | (no date) | (unknown) | [facility] | (no | (units | (unknown) | | | | | [facility] | value) | unknown) | [facility] | | | | + + + + +---------+ + + + + | Result panel 1621 | + + + + + + +---------+ + + | (unknown) | (no date) | (unknown) | [facility] | (no | (units | (unknown) | | | | | [facility] value) | unknown) | | [facility] | | | | + + + + +---------+ + + + + | Result panel 1622 | + + + + + + +---------+ + + | (unknown) | (no date) | (unknown) | [facility] | (no | (units | (unknown) | | | | | [facility] value) | unknown) | | [facility] | | | | + + + + +---------+ + + + + | Result panel 1623 | + + + + + + +---------+ + + | (unknown) | (no date) | (unknown) | [facility] | (no | (units | (unknown) | | | | | [facility] | value) | unknown) | | | | [facility] | | | | + + + + +---------+ + + + + | Result panel 1624 | + + + + + + +---------+ + + | (unknown) | (no date) | (unknown) | [facility] | (no | (units | (unknown) | | | | | [facility] value) | unknown) | | | | [facility] | | | | + + + + +---------+ + + + + | Result panel 1625 | + + + + + + +---------+ + + | (unknown) | (no date) | (unknown) | [facility] | (no | (units | (unknown) | | | | | [facility] | value) | unknown) | | | | [facility] | | | | + + + + +---------+ + + + + | Result panel 1626 | + + + + + + +---------+ + + | (unknown) | (no date) | (unknown) | [facility] | (no | (units | (unknown) | | | | | [facility] | value) | unknown) | | [facility] | [facility] | | | | + + + + +---------+ + + + + | Result panel 1627 | + + + + + + +---------+ + + | (unknown) | (no date) | (unknown) | [facility] | (no | (units | (unknown) | | | | | [facility] value) | unknown) | | [facility] | [facility] | | | | + + + + +---------+ + + + + | Result panel 1628 | + + + + + + +---------+ + + | (unknown) | (no date) | (unknown) | [facility] | (no | (units | (unknown) | | | | | [facility] | value) | unknown) | | | | [facility] | | | | + + + + +---------+ + + + + | Result panel 1629 | + + + + + + +---------+ + + | (unknown) | (no date) | (unknown) | [facility] | (no | (units | (unknown) | | | | | [facility] | value) | unknown) | | | | [facility] | | | | + + + + +---------+ + + + + | Result panel 1630 | + + + + + + +---------+ + + | (unknown) | (no date) | (unknown) | [facility] | (no | (units | (unknown) | | | | | [facility] | value) | unknown) | [facility] | | | | + + + + +---------+ + + + + | Result panel 1631 | + + + + + + +---------+ + + | (unknown) | (no date) | (unknown) | [facility] | (no | (units | (unknown) | | | | | [facility] | value) | unknown) | | | | [facility] | | | | + + + + +---------+ + + + + | Result panel 1632 | + + + + + + +---------+ + + | (unknown) | (no date) | (unknown) | [facility] | (no | (units | (unknown) | | | | | [facility] | value) | unknown) | | | | [facility] | | | | + + + + +---------+ + + + + | Result panel 1633 | + + + + + + +---------+ + + | (unknown) | (no date) | (unknown) | [facility] | (no | (units | (unknown) | | | | | [facility] value) | unknown) | | [facility] | | | | + + + + +---------+ + + + + | Result panel 1634 | + + + + + + +---------+ + + | (unknown) | (no date) | (unknown) | [facility] | (no | (units | (unknown) | | | | | [facility] | value) | unknown) | | | | [facility] | | | | + + + + +---------+ + + + + | Result panel 1635 | + + + + + + +---------+ + + | (unknown) | (no date) | (unknown) | [facility] | (no | (units | (unknown) | | | | | [facility] | value) | unknown) | | | | [facility] | | | | + + + + +---------+ + + + + | Result panel 1636 | + + + + + + +---------+ + + | (unknown) | (no date) | (unknown) | [facility] | (no | (units | (unknown) | | | | | [facility] | value) | unknown) | | | | [facility] | | | | + + + + +---------+ + + + + | Result panel 1637 | + + + + + + +---------+ + + | (unknown) | (no date) | (unknown) | [facility] | (no | (units | (unknown) | | | | | [facility] | value) | unknown) | | | | [facility] | | | | + + + + +---------+ + + + + | Result panel 1638 | + + + + + + +---------+ + + | (unknown) | (no date) | (unknown) | [facility] | (no | (units | (unknown) | | | | | [facility] | value) | unknown) | | | | [facility] | | | | + + + + +---------+ + + + + | Result panel 1639 | + + + + + + +---------+ + + | (unknown) | (no date) | (unknown) | [facility] | (no | (units | (unknown) | | | | | [facility] | value) | unknown) | | | | [facility] | | | | + + + + +---------+ + + + + | Result panel 1640 | + + + + + + +---------+ + + | (unknown) | (no date) | (unknown) | [facility] | (no | (units | (unknown) | | | | | [facility] | value) | unknown) | | | | [facility] | | | | + + + + +---------+ + + + + | Result panel 1641 | + + + + + + +---------+ + + | (unknown) | (no date) | (unknown) | [facility] | (no | (units | (unknown) | | | | | [facility] | value) | unknown) | | | | [facility] | | | | + + + + +---------+ + + + + | Result panel 1642 | + + + + + + +---------+ + + | (unknown) | (no date) | (unknown) | [facility] | (no | (units | (unknown) | | | | | [facility] | value) | unknown) | [facility] | [facility] | | | | + + + + +---------+ + + + + | Result panel 1643 | + + + + + + +---------+ + + | (unknown) | (no date) | (unknown) | [facility] | (no | (units | (unknown) | | | | | [facility] value) | unknown) | | | | [facility] | | | | + + + + +---------+ + + + + | Result panel 1644 | + + + + + + +---------+ + + | (unknown) | (no date) | (unknown) | [facility] | (no | (units | (unknown) | | | | | [facility] | value) | unknown) | [facility] | | | | + + + + +---------+ + + + + | Result panel 1645 | + + + + + + +---------+ + + | (unknown) | (no date) | (unknown) | [facility] | (no | (units | (unknown) | | | | | [facility] | value) | unknown) | | [facility] | [facility] | | | | + + + + +---------+ + + + + | Result panel 1646 | + + + + + + +---------+ + + | (unknown) | (no date) | (unknown) | [facility] | (no | (units | (unknown) | | | | | [facility] | value) | unknown) | | | | [facility] | | | | + + + + +---------+ + + + + | Result panel 1647 | + + + + + + +---------+ + + | (unknown) | (no date) | (unknown) | [facility] | (no | (units | (unknown) | | | | | [facility] value) | unknown) | | [facility] | | | | + + + + +---------+ + + + + | Result panel 1648 | + + + + + + +---------+ + + | (unknown) | (no date) | (unknown) | [facility] | (no | (units | (unknown) | | | | | [facility] value) | unknown) | [facility] | [facility] | | | | + + + + +---------+ + + + + | Result panel 1649 | + + + + + + +---------+ + + | (unknown) | (no date) | (unknown) | [facility] | (no | (units | (unknown) | | | | | [facility] | value) | unknown) | | | | [facility] | | | | + + + + +---------+ + + + + | Result panel 1650 | + + + + + + +---------+ + + | (unknown) | (no date) | (unknown) | [facility] | (no | (units | (unknown) | | | | | [facility] value) | unknown) | | [facility] | [facility] | | | | + + + + +---------+ + + + + | Result panel 1651 | + + + + + + +---------+ + + | (unknown) | (no date) | (unknown) | [facility] | (no | (units | (unknown) | | | | | [facility] | value) | unknown) | | | [facility] | | | | + + + + +---------+ + + + + | Result panel 1652 | + + + + + + +---------+ + + | (unknown) | (no date) | (unknown) | [facility] | (no | (units | (unknown) | | | | | [facility] value) | unknown) | | | [facility] | | | | + + + + +---------+ + + + + | Result panel 1653 | + + + + + + +---------+ + + | (unknown) | (no date) | (unknown) | [facility] | (no | (units | (unknown) | | | | | [facility] value) | unknown) | | | [facility] | | | | + + + + +---------+ + + + + | Result panel 1654 | + + + + + + +---------+ + + | (unknown) | (no date) | (unknown) | [facility] | (no | (units | (unknown) | | | | | [facility] value) | unknown) | | | [facility] | | | | + + + + +---------+ + + + + | Result panel 1655 | + + + + + + +---------+ + + | (unknown) | (no date) | (unknown) | [facility] | (no | (units | (unknown) | | | | | [facility] | value) | unknown) | | | [facility] | | | | + + + + +---------+ + + + + | Result panel 1656 | + + + + + + +---------+ + + | (unknown) | (no date) | (unknown) | [facility] | (no | (units | (unknown) | | | | | [facility] | value) | unknown) | | | | [facility] | | | | + + + + +---------+ + + + + | Result panel 1657 | + + + + + + +---------+ + + | (unknown) | (no date) | (unknown) | [facility] | (no | (units | (unknown) | | | | | [facility] | value) | unknown) | | | | [facility] | | | | + + + + +---------+ + + + + | Result panel 1658 | + + + + + + +---------+ + + | (unknown) | (no date) | (unknown) | [facility] | (no | (units | (unknown) | | | | | [facility] | value) | unknown) | | | | [facility] | | | | + + + + +---------+ + + + + | Result panel 1659 | + + + + + + +---------+ + + | (unknown) | (no date) | (unknown) | [facility] | (no | (units | (unknown) | | | | | [facility] | value) | unknown) | | | | [facility] | | | | + + + + +---------+ + + + + | Result panel 1660 | + + + + + + +---------+ + + | (unknown) | (no date) | (unknown) | [facility] | (no | (units | (unknown) | | | | | [facility] | value) | unknown) | | | | [facility] | | | | + + + + +---------+ + + + + | Result panel 1661 | + + + + + + +---------+ + + | (unknown) | (no date) | (unknown) | [facility] | (no | (units | (unknown) | | | | | [facility] | value) | unknown) | [facility] | | | | + + + + +---------+ + + + + | Result panel 1662 | + + + + + + +---------+ + + | (unknown) | (no date) | (unknown) | [facility] | (no | (units | (unknown) | | | | | [facility] value) | unknown) | | | | [facility] | | | | + + + + +---------+ + + + + | Result panel 1663 | + + + + + + +---------+ + + | (unknown) | (no date) | (unknown) | [facility] | (no | (units | (unknown) | | | | | [facility] | value) | unknown) | | | | [facility] | | | | + + + + +---------+ + + + + | Result panel 1664 | + + + + + + +---------+ + + | (unknown) | (no date) | (unknown) | [facility] | (no | (units | (unknown) | | | | | [facility] | value) | unknown) | | | | [facility] | | | | + + + + +---------+ + + + + | Result panel 1665 | + + + + + + +---------+ + + | (unknown) | (no date) | (unknown) | [facility] | (no | (units | (unknown) | | | | | [facility] value) | unknown) | | | [facility] | | | | + + + + +---------+ + + + + | Result panel 1666 | + + + + + + +---------+ + + | (unknown) | (no date) | (unknown) | [facility] | (no | (units | (unknown) | | | | | [facility] | value) | unknown) | [facility] | | [facility] | | | | + + + + +---------+ + + + + | Result panel 1667 | + + + + + + +---------+ + + | (unknown) | (no date) | (unknown) | [facility] | (no | (units | (unknown) | | | | | [facility] value) | unknown) | | | | [facility] | | | | + + + + +---------+ + + + + | Result panel 1668 | + + + + + + +---------+ + + | (unknown) | (no date) | (unknown) | [facility] | (no | (units | (unknown) | | | | | [facility] | value) | unknown) | | | | [facility] | | | | + + + + +---------+ + + + + | Result panel 1669 | + + + + + + +---------+ + + | (unknown) | (no date) | (unknown) | [facility] | (no | (units | (unknown) | | | | | [facility] | value) | unknown) | | | | [facility] | | | | + + + + +---------+ + + + + | Result panel 1670 | + + + + + + +---------+ + + | (unknown) | (no date) | (unknown) | [facility] | (no | (units | (unknown) | | | | | [facility] | value) | unknown) | | [facility] | [facility] | | | | + + + + +---------+ + + + + | Result panel 1671 | + + + + + + +---------+ + + | (unknown) | (no date) | (unknown) | [facility] | (no | (units | (unknown) | | | | | [facility] | value) | unknown) | | | | [facility] | | | | + + + + +---------+ + + + + | Result panel 1672 | + + + + + + +---------+ + + | (unknown) | (no date) | (unknown) | [facility] | (no | (units | (unknown) | | | | | [facility] | value) | unknown) | [facility] | [facility] | | | | + + + + +---------+ + + + + | Result panel 1673 | + + + + + + +---------+ + + | (unknown) | (no date) | (unknown) | [facility] | (no | (units | (unknown) | | | | | [facility] | value) | unknown) | | | | [facility] | | | | + + + + +---------+ + + + + | Result panel 1674 | + + + + + + +---------+ + + | (unknown) | (no date) | (unknown) | [facility] | (no | (units | (unknown) | | | | | [facility] | value) | unknown) | | | | [facility] | | | | + + + + +---------+ + + + + | Result panel 1675 | + + + + + + +---------+ + + | (unknown) | (no date) | (unknown) | [facility] | (no | (units | (unknown) | | | | | [facility] | value) | unknown) | | [facility] | [facility] | | | | + + + + +---------+ + + + + | Result panel 1676 | + + + + + + +---------+ + + | (unknown) | (no date) | (unknown) | [facility] | (no | (units | (unknown) | | | | | [facility] | value) | unknown) | | | | [facility] | | | | + + + + +---------+ + + + + | Result panel 1677 | + + + + + + +---------+ + + | (unknown) | (no date) | (unknown) | [facility] | (no | (units | (unknown) | | | | | [facility] | value) | unknown) | [facility] | [facility] | | | | + + + + +---------+ + + + + | Result panel 1678 | + + + + + + +---------+ + + | (unknown) | (no date) | (unknown) | [facility] | (no | (units | (unknown) | | | | | [facility] | value) | unknown) | | | | [facility] | | | | + + + + +---------+ + + + + | Result panel 1679 | + + + + + + +---------+ + + | (unknown) | (no date) | (unknown) | [facility] | (no | (units | (unknown) | | | | | [facility] | value) | unknown) | | | | [facility] | | | | + + + + +---------+ + + + + | Result panel 1680 | + + + + + + +---------+ + + | (unknown) | (no date) | (unknown) | [facility] | (no | (units | (unknown) | | | | | [facility] | value) | unknown) | | | | [facility] | | | | + + + + +---------+ + + + + | Result panel 1681 | + + + + + + +---------+ + + | (unknown) | (no date) | (unknown) | [facility] | (no | (units | (unknown) | | | | | [facility] | value) | unknown) | | | | [facility] | | | | + + + + +---------+ + + + + | Result panel 1682 | + + + + + + +---------+ + + | (unknown) | (no date) | (unknown) | [facility] | (no | (units | (unknown) | | | | | [facility] | value) | unknown) | | [facility] | [facility] | | | | + + + + +---------+ + + + + | Result panel 1683 | + + + + + + +---------+ + + | (unknown) | (no date) | (unknown) | [facility] | (no | (units | (unknown) | | | | | [facility] | value) | unknown) | | | | [facility] | | | | + + + + +---------+ + + + + | Result panel 1684 | + + + + + + +---------+ + + | (unknown) | (no date) | (unknown) | [facility] | (no | (units | (unknown) | | | | | [facility] | value) | unknown) | | | | [facility] | | | | + + + + +---------+ + + + + | Result panel 1685 | + + + + + + +---------+ + + | (unknown) | (no date) | (unknown) | [facility] | (no | (units | (unknown) | | | | | [facility] | value) | unknown) | | | | [facility] | | | | + + + + +---------+ + + + + | Result panel 1686 | + + + + + + +---------+ + + | (unknown) | (no date) | (unknown) | [facility] | (no | (units | (unknown) | | | | | [facility] | value) | unknown) | | [facility] | [facility] | | | | + + + + +---------+ + + + + | Result panel 1687 | + + + + + + +---------+ + + | (unknown) | (no date) | (unknown) | [facility] | (no | (units | (unknown) | | | | | [facility] | value) | unknown) | [facility] | | [facility] | | | | + + + + +---------+ + + + + | Result panel 1688 | + + + + + + +---------+ + + | (unknown) | (no date) | (unknown) | [facility] | (no | (units | (unknown) | | | | | [facility] | value) | unknown) | | | | [facility] | | | | + + + + +---------+ + + + + | Result panel 1689 | + + + + + + +---------+ + + | (unknown) | (no date) | (unknown) | [facility] | (no | (units | (unknown) | | | | | [facility] | value) | unknown) | | | | [facility] | | | | + + + + +---------+ + + + + | Result panel 1690 | + + + + + + +---------+ + + | (unknown) | (no date) | (unknown) | [facility] | (no | (units | (unknown) | | | | | [facility] | value) | unknown) | | | | [facility] | | | | + + + + +---------+ + + + + | Result panel 1691 | + + + + + + +---------+ + + | (unknown) | (no date) | (unknown) | [facility] | (no | (units | (unknown) | | | | | [facility] | value) | unknown) | | [facility] | | | | + + + + +---------+ + + + + | Result panel 1692 | + + + + + + +---------+ + + | (unknown) | (no date) | (unknown) | [facility] | (no | (units | (unknown) | | | | | [facility] | value) | unknown) | [facility] | | [facility] | | | | + + + + +---------+ + + + + | Result panel 1693 | + + + + + + +---------+ + + | (unknown) | (no date) | (unknown) | [facility] | (no | (units | (unknown) | | | | | [facility] | value) | unknown) | [facility] | | [facility] | | | | + + + + +---------+ + + + + | Result panel 1694 | + + + + + + +---------+ + + | (unknown) | (no date) | (unknown) | [facility] | (no | (units | (unknown) | | | | | [facility] | value) | unknown) | | | | [facility] | | | | + + + + +---------+ + + + + | Result panel 1695 | + + + + + + +---------+ + + | (unknown) | (no date) | (unknown) | [facility] | (no | (units | (unknown) | | | | | [facility] | value) | unknown) | | | | [facility] | | | | + + + + +---------+ + + + + | Result panel 1696 | + + + + + + +---------+ + + | (unknown) | (no date) | (unknown) | [facility] | (no | (units | (unknown) | | | | | [facility] | value) | unknown) | | | | | | [facility] | | | | + + + + +---------+ + + + + | Result panel 1697 | + + + + + + +---------+ + + | (unknown) | (no date) | (unknown) | [facility] | (no | (units | (unknown) | | | | | [facility] | value) | unknown) | | | | | [facility] | | | | + + + + +---------+ + + + + | Result panel 1698 | + + + + + + +---------+ + + | (unknown) | (no date) | (unknown) | [facility] | (no | (units | (unknown) | | | | | [facility] | value) | unknown) | | | | | [facility] | | | | + + + + +---------+ + + + + | Result panel 1699 | + + + + + + +---------+ + + | (unknown) | (no date) | (unknown) | [facility] | (no | (units | (unknown) | | | | | [facility] | value) | unknown) | | | | | [facility] | | | | + + + + +---------+ + + + + | Result panel 1700 | + + + + + + +---------+ + + | (unknown) | (no date) | (unknown) | [facility] | (no | (units | (unknown) | | | | | [facility] | value) | unknown) | | | | | [facility] | | | | + + + + +---------+ + + + + | Result panel 1701 | + + + + + + +---------+ + + | (unknown) | (no date) | (unknown) | [facility] | (no | (units | (unknown) | | | | | [facility] | value) | unknown) | | | | | [facility] | | | | + + + + +---------+ + + + + | Result panel 1702 | + + + + + + +---------+ + + | (unknown) | (no date) | (unknown) | [facility] | (no | (units | (unknown) | | | | | [facility] | value) | unknown) | | | | | [facility] | | | | + + + + +---------+ + + + + | Result panel 1703 | + + + + + + +---------+ + + | (unknown) | (no date) | (unknown) | [facility] | (no | (units | (unknown) | | | | | [facility] | value) | unknown) | | | | | [facility] | | | | + + + + +---------+ + + + + | Result panel 1704 | + + + + + + +---------+ + + | (unknown) | (no date) | (unknown) | [facility] | (no | (units | (unknown) | | | | | [facility] | value) | unknown) | | | | | | [facility] | | | | + + + + +---------+ + + + + | Result panel 1705 | + + + + + + +---------+ + + | (unknown) | (no date) | (unknown) | [facility] | (no | (units | (unknown) | | | | [facility] value[facility] | unknown) | | [facility] | | | | + + + + +---------+ + + + + | Result panel 1706 | + + + + + + +---------+ + + | (unknown) | (no date) | (unknown) | [facility] | (no | (units | (unknown) | | | | | [facility] | value) | unknown) | | | [facility] | | | | + + + + +---------+ + + + + | Result panel 1707 | + + + + + + +---------+ + + | (unknown) | (no date) | (unknown) | [facility] | (no | (units | (unknown) | | | | | [facility] value) | unknown) | | [facility] | | | | + + + + +---------+ + + + + | Result panel 1708 | + + + + + + +---------+ + + | (unknown) | (no date) | (unknown) | [facility] | (no | (units | (unknown) | | | | | [facility] value) | unknown) | | [facility] | | | | + + + + +---------+ + + + + | Result panel 1709 | + + + + + + +---------+ + + | (unknown) | (no date) | (unknown) | [facility] | (no | (units | (unknown) | | | | | [facility] | value) | unknown) | | [facility] | | | | + + + + +---------+ + + + + | Result panel 1710 | + + + + + + +---------+ + + | (unknown) | (no date) | (unknown) | [facility] | (no | (units | (unknown) | | | | | [facility] value) | unknown) | | [facility] | | | | + + + + +---------+ + + + + | Result panel 1711 | + + + + + + +---------+ + + | (unknown) | (no date) | (unknown) | [facility] | (no | (units | (unknown) | | | | | [facility] value) | unknown) | | [facility] | | | | + + + + +---------+ + + + + | Result panel 1712 | + + + + + + +---------+ + + | (unknown) | (no date) | (unknown) | [facility] | (no | (units | (unknown) | | | | | [facility] | value) | unknown) | | | [facility] | | | | + + + + +---------+ + + + + | Result panel 1713 | + + + + + + +---------+ + + | (unknown) | (no date) | (unknown) | [facility] | (no | (units | (unknown) | | | | | [facility] | value) | unknown) | | | [facility] | | | | + + + + +---------+ + + + + | Result panel 1714 | + + + + + + +---------+ + + | (unknown) | (no date) | (unknown) | [facility] | (no | (units | (unknown) | | | | | [facility] value) | unknown) | | | [facility] | | | | + + + + +---------+ + + + + | Result panel 1715 | + + + + + + +---------+ + + | (unknown) | (no date) | (unknown) | [facility] | (no | (units | (unknown) | | | | | [facility] | value) | unknown) | | | [facility] | | | | + + + + +---------+ + + + + | Result panel 1716 | + + + + + + +---------+ + + | (unknown) | (no date) | (unknown) | [facility] | (no | (units | (unknown) | | | | | [facility] | value) | unknown) | | | [facility] | | | | + + + + +---------+ + + + + | Result panel 1717 | + + + + + + +---------+ + + | (unknown) | (no date) | (unknown) | [facility] | (no | (units | (unknown) | | | | | [facility] value) | unknown) | [facility] | | | | + + + + +---------+ + + + + | Result panel 1718 | + + + + + + +---------+ + + | (unknown) | (no date) | (unknown) | [facility] | (no | (units | (unknown) | | | | | [facility] | value) | unknown) | | | [facility] | | | | + + + + +---------+ + + + + | Result panel 1719 | + + + + + + +---------+ + + | (unknown) | (no date) | (unknown) | [facility] | (no | (units | (unknown) | | | | | [facility] | value) | unknown) | | | [facility] | | | | + + + + +---------+ + + + + | Result panel 1720 | + + + + + + +---------+ + + | (unknown) | (no date) | (unknown) | [facility] | (no | (units | (unknown) | | | | | [facility] | value) | unknown) | | [facility] | | | | + + + + +---------+ + + + + | Result panel 1721 | + + + + + + +---------+ + + | (unknown) | (no date) | (unknown) | [facility] | (no | (units | (unknown) | | | | | [facility] | value) | unknown) | | | [facility] | | | | + + + + +---------+ + + + + | Result panel 1722 | + + + + + + +---------+ + + | (unknown) | (no date) | (unknown) | [facility] | (no | (units | (unknown) | | | | | [facility] | value) | unknown) | | | [facility] | | | | + + + + +---------+ + + + + | Result panel 1723 | + + + + + + +---------+ + + | (unknown) | (no date) | (unknown) | [facility] | (no | (units | (unknown) | | | | | [facility] | value) | unknown) | | | [facility] | | | | + + + + +---------+ + + + + | Result panel 1724 | + + + + + + +---------+ + + | (unknown) | (no date) | (unknown) | [facility] | (no | (units | (unknown) | | | | | [facility] | value) | unknown) | | [facility] | | | | + + + + +---------+ + + + + | Result panel 1725 | + + + + + + +---------+ + + | (unknown) | (no date) | (unknown) | [facility] | (no | (units | (unknown) | | | | | [facility] | value) | unknown) | | [facility] | | | | + + + + +---------+ + + + + | Result panel 1726 | + + + + + + +---------+ + + | (unknown) | (no date) | (unknown) | [facility] | (no | (units | (unknown) | | | | | [facility] | value) | unknown) | | | | [facility] | | | | + + + + +---------+ + + + + | Result panel 1727 | + + + + + + +---------+ + + | (unknown) | (no date) | (unknown) | [facility] | (no | (units | (unknown) | | | | | [facility] | value) | unknown) | | [facility] | | | | + + + + +---------+ + + + + | Result panel 1728 | + + + + + + +---------+ + + | (unknown) | (no date) | (unknown) | [facility] | (no | (units | (unknown) | | | | | [facility] | value) | unknown) | [facility] | [facility] | | | | + + + + +---------+ + + + + | Result panel 1729 | + + + + + + +---------+ + + | (unknown) | (no date) | (unknown) | [facility] | (no | (units | (unknown) | | | | | [facility] | value) | unknown) | | | [facility] | | | | + + + + +---------+ + + + + | Result panel 1730 | + + + + + + +---------+ + + | (unknown) | (no date) | (unknown) | [facility] | (no | (units | (unknown) | | | | | [facility] | value) | unknown) | [facility] | | | | + + + + +---------+ + + + + | Result panel 1731 | + + + + + + +---------+ + + | (unknown) | (no date) | (unknown) | [facility] | (no | (units | (unknown) | | | | | [facility] | value) | unknown) | | | | [facility] | | | | + + + + +---------+ + + + + | Result panel 1732 | + + + + + + +---------+ + + | (unknown) | (no date) | (unknown) | [facility] | (no | (units | (unknown) | | | | | [facility] | value) | unknown) | | | [facility] | | | | + + + + +---------+ + + + + | Result panel 1733 | + + + + + + +---------+ + + | (unknown) | (no date) | (unknown) | [facility] | (no | (units | (unknown) | | | | | [facility] | value) | unknown) | | | | [facility] | | | | + + + + +---------+ + + + + | Result panel 1734 | + + + + + + +---------+ + + | (unknown) | (no date) | (unknown) | [facility] | (no | (units | (unknown) | | | | | [facility] | value) | unknown) | | [facility] | | | | + + + + +---------+ + + + + | Result panel 1735 | + + + + + + +---------+ + + | (unknown) | (no date) | (unknown) | [facility] | (no | (units | (unknown) | | | | | [facility] | value) | unknown) | | | | | [facility] | | | | + + + + +---------+ + + + + | Result panel 1736 | + + + + + + +---------+ + + | (unknown) | (no date) | (unknown) | [facility] | (no | (units | (unknown) | | | | | [facility] | value) | unknown) | [facility] | [facility] | | | | + + + + +---------+ + + + + | Result panel 1737 | + + + + + + +---------+ + + | (unknown) | (no date) | (unknown) | [facility] | (no | (units | (unknown) | | | | | [facility] | value) | unknown) | [facility] | [facility] | | | | + + + + +---------+ + + + + | Result panel 1738 | + + + + + + +---------+ + + | (unknown) | (no date) | (unknown) | [facility] | (no | (units | (unknown) | | | | | [facility] | value) | unknown) | | | | [facility] | | | | + + + + +---------+ + + + + | Result panel 1739 | + + + + + + +---------+ + + | (unknown) | (no date) | (unknown) | [facility] | (no | (units | (unknown) | | | | | [facility] | value) | unknown) | | [facility] | [facility] | | | | + + + + +---------+ + + + + | Result panel 1740 | + + + + + + +---------+ + + | (unknown) | (no date) | (unknown) | [facility] | (no | (units | (unknown) | | | | | [facility] | value) | unknown) | | [facility] | [facility] | | | | + + + + +---------+ + + + + | Result panel 1741 | + + + + + + +---------+ + + | (unknown) | (no date) | (unknown) | [facility] | (no | (units | (unknown) | | | | | [facility] | value) | unknown) | | | | [facility] | | | | + + + + +---------+ + + + + | Result panel 1742 | + + + + + + +---------+ + + | (unknown) | (no date) | (unknown) | [facility] | (no | (units | (unknown) | | | | | [facility] | value) | unknown) | [facility] | | [facility] | | | | + + + + +---------+ + + + + | Result panel 1743 | + + + + + + +---------+ + + | (unknown) | (no date) | (unknown) | [facility] | (no | (units | (unknown) | | | | | [facility] | value) | unknown) | | | | | [facility] | | | | + + + + +---------+ + + + + | Result panel 1744 | + + + + + + +---------+ + + | (unknown) | (no date) | (unknown) | [facility] | (no | (units | (unknown) | | | | | [facility] | value) | unknown) | | | | [facility] | | | | + + + + +---------+ + + + + | Result panel 1745 | + + + + + + +---------+ + + | (unknown) | (no date) | (unknown) | [facility] | (no | (units | (unknown) | | | | | [facility] | value) | unknown) | | | | [facility] | | | | + + + + +---------+ + + + + | Result panel 1746 | + + + + + + +---------+ + + | (unknown) | (no date) | (unknown) | [facility] | (no | (units | (unknown) | | | | | [facility] | value) | unknown) | | | | | [facility] | | | | + + + + +---------+ + + + + | Result panel 1747 | + + + + + + +---------+ + + | (unknown) | (no date) | (unknown) | [facility] | (no | (units | (unknown) | | | | | [facility] | value) | unknown) | | | | | [facility] | | | | + + + + +---------+ + + + + | Result panel 1748 | + + + + + + +---------+ + + | (unknown) | (no date) | (unknown) | [facility] | (no | (units | (unknown) | | | | | [facility] | value) | unknown) | | | | [facility] | | | | + + + + +---------+ + + + + | Result panel 1749 | + + + + + + +---------+ + + | (unknown) | (no date) | (unknown) | [facility] | (no | (units | (unknown) | | | | | [facility] | value) | unknown) | | | | | [facility] | | | | + + + + +---------+ + + + + | Result panel 1750 | + + + + + + +---------+ + + | (unknown) | (no date) | (unknown) | [facility] | (no | (units | (unknown) | | | | | [facility] | value) | unknown) | | | | [facility] | | | | + + + + +---------+ + + + + | Result panel 175 | + + + + + + +---------+ + + | (unknown) | (no date) | (unknown) | [facility] | (no | (units | (unknown) | | | | | [facility] | value) | unknown) | | | | [facility] | | | | + + + + +---------+ + + + + | Result panel 175 | + + + + + + +---------+ + + | (unknown) | (no date) | (unknown) | [facility] | (no | (units | (unknown) | | | | | [facility] | value) | unknown) | | | | [facility] | | | | + + + + +---------+ + + + + | Result panel 1753 | + + + + + + +---------+ + + | (unknown) | (no date) | (unknown) | [facility] | (no | (units | (unknown) | | | | | [facility] | value) | unknown) | | | | [facility] | | | | + + + + +---------+ + + + + | Result panel 1754 | + + + + + + +---------+ + + | (unknown) | (no date) | (unknown) | [facility] | (no | (units | (unknown) | | | | | [facility] | value) | unknown) | | | | [facility] | | | | + + + + +---------+ + + + + | Result panel 1755 | + + + + + + +---------+ + + | (unknown) | (no date) | (unknown) | [facility] | (no | (units | (unknown) | | | | | [facility] | value) | unknown) | | | | | [facility] | | | | + + + + +---------+ + + + + | Result panel 1756 | + + + + + + +---------+ + + | (unknown) | (no date) | (unknown) | [facility] | (no | (units | (unknown) | | | | | [facility] | value) | unknown) | [facility] | | [facility] | | | | + + + + +---------+ + + + + | Result panel 1757 | + + + + + + +---------+ + + | (unknown) | (no date) | (unknown) | [facility] | (no | (units | (unknown) | | | | | [facility] | value) | unknown) | | | | [facility] | | | | + + + + +---------+ + + + + | Result panel 1758 | + + + + + + +---------+ + + | (unknown) | (no date) | (unknown) | [facility] | (no | (units | (unknown) | | | | | [facility] | value) | unknown) | | | | [facility] | | | | + + + + +---------+ + + + + | Result panel 1759 | + + + + + + +---------+ + + | (unknown) | (no date) | (unknown) | [facility] | (no | (units | (unknown) | | | | | [facility] | value) | unknown) | | | | [facility] | | | | + + + + +---------+ + + + + | Result panel 1760 | + + + + + + +---------+ + + | (unknown) | (no date) | (unknown) | [facility] | (no | (units | (unknown) | | | | | [facility] | value) | unknown) | | | | [facility] | | | | + + + + +---------+ + + + + | Result panel 1761 | + + + + + + +---------+ + + | (unknown) | (no date) | (unknown) | [facility] | (no | (units | (unknown) | | | | | [facility] | value) | unknown) | [facility] | | [facility] | | | | + + + + +---------+ + + + + | Result panel 1762 | + + + + + + +---------+ + + | (unknown) | (no date) | (unknown) | [facility] | (no | (units | (unknown) | | | | | [facility] | value) | unknown) | | | | [facility] | | | | + + + + +---------+ + + + + | Result panel 1763 | + + + + + + +---------+ + + | (unknown) | (no date) | (unknown) | [facility] | (no | (units | (unknown) | | | | | [facility] | value) | unknown) | | | | [facility] | | | | + + + + +---------+ + + + + | Result panel 1764 | + + + + + + +---------+ + + | (unknown) | (no date) | (unknown) | [facility] | (no | (units | (unknown) | | | | | [facility] | value) | unknown) | | | | [facility] | | | | + + + + +---------+ + + + + | Result panel 1765 | + + + + + + +---------+ + + | (unknown) | (no date) | (unknown) | [facility] | (no | (units | (unknown) | | | | | [facility] | value) | unknown) | [facility] | [facility] | | | | + + + + +---------+ + + + + | Result panel 1766 | + + + + + + +---------+ + + | (unknown) | (no date) | (unknown) | [facility] | (no | (units | (unknown) | | | | | [facility] | value) | unknown) | | | [facility] | | | | + + + + +---------+ + + + + | Result panel 1767 | + + + + + + +---------+ + + | (unknown) | (no date) | (unknown) | [facility] | (no | (units | (unknown) | | | | | [facility] | value) | unknown) | | | | [facility] | | | | + + + + +---------+ + + + + | Result panel 1768 | + + + + + + +---------+ + + | (unknown) | (no date) | (unknown) | [facility] | (no | (units | (unknown) | | | | | [facility] | value) | unknown) | | | | | [facility] | | | | + + + + +---------+ + + + + | Result panel 1769 | + + + + + + +---------+ + + | (unknown) | (no date) | (unknown) | [facility] | (no | (units | (unknown) | | | | | [facility] | value) | unknown) | | | | | [facility] | | | | + + + + +---------+ + + + + | Result panel 1770 | + + + + + + +---------+ + + | (unknown) | (no date) | (unknown) | [facility] | (no | (units | (unknown) | | | | | [facility] | value) | unknown) | | | | | [facility] | | | | + + + + +---------+ + + + + | Result panel 1771 | + + + + + + +---------+ + + | (unknown) | (no date) | (unknown) | [facility] | (no | (units | (unknown) | | | | | [facility] | value) | unknown) | | | | [facility] | | | | + + + + +---------+ + + + + | Result panel 1772 | + + + + + + +---------+ + + | (unknown) | (no date) | (unknown) | [facility] | (no | (units | (unknown) | | | | | [facility] | value) | unknown) | | | | [facility] | | | | + + + + +---------+ + + + + | Result panel 1773 | + + + + + + +---------+ + + | (unknown) | (no date) | (unknown) | [facility] | (no | (units | (unknown) | | | | | [facility] | value) | unknown) | | | | [facility] | | | | + + + + +---------+ + + + + | Result panel 1774 | + + + + + + +---------+ + + | (unknown) | (no date) | (unknown) | [facility] | (no | (units | (unknown) | | | | | [facility] | value) | unknown) | | | | [facility] | | | | + + + + +---------+ + + + + | Result panel 1775 | + + + + + + +---------+ + + | (unknown) | (no date) | (unknown) | [facility] | (no | (units | (unknown) | | | | | [facility] | value) | unknown) | | | | [facility] | | | | + + + + +---------+ + + + + | Result panel 1776 | + + + + + + +---------+ + + | (unknown) | (no date) | (unknown) | [facility] | (no | (units | (unknown) | | | | | [facility] | value) | unknown) | | [facility] | [facility] | | | | + + + + +---------+ + + + + | Result panel 1777 | + + + + + + +---------+ + + | (unknown) | (no date) | (unknown) | [facility] | (no | (units | (unknown) | | | | | [facility] | value) | unknown) | | | | [facility] | | | | + + + + +---------+ + + + + | Result panel 1778 | + + + + + + +---------+ + + | (unknown) | (no date) | (unknown) | [facility] | (no | (units | (unknown) | | | | | [facility] | value) | unknown) | [facility] | | [facility] | | | | + + + + +---------+ + + + + | Result panel 1779 | + + + + + + +---------+ + + | (unknown) | (no date) | (unknown) | [facility] | (no | (units | (unknown) | | | | | [facility] | value) | unknown) | | | | [facility] | | | | + + + + +---------+ + + + + | Result panel 1780 | + + + + + + +---------+ + + | (unknown) | (no date) | (unknown) | [facility] | (no | (units | (unknown) | | | | | [facility] | value) | unknown) | | | | [facility] | | | | + + + + +---------+ + + + + | Result panel 1781 | + + + + + + +---------+ + + | (unknown) | (no date) | (unknown) | [facility] | (no | (units | (unknown) | | | | | [facility] | value) | unknown) | | [facility] | [facility] | | | | + + + + +---------+ + + + + | Result panel 1782 | + + + + + + +---------+ + + | (unknown) | (no date) | (unknown) | [facility] | (no | (units | (unknown) | | | | | [facility] | value) | unknown) | | | | [facility] | | | | + + + + +---------+ + + + + | Result panel 1783 | + + + + + + +---------+ + + | (unknown) | (no date) | (unknown) | [facility] | (no | (units | (unknown) | | | | | [facility] | value) | unknown) | | | | [facility] | | | | + + + + +---------+ + + + + | Result panel 1784 | + + + + + + +---------+ + + | (unknown) | (no date) | (unknown) | [facility] | (no | (units | (unknown) | | | | | [facility] | value) | unknown) | | | | [facility] | | | | + + + + +---------+ + + + + | Result panel 1785 | + + + + + + +---------+ + + | (unknown) | (no date) | (unknown) | [facility] | (no | (units | (unknown) | | | | | [facility] | value) | unknown) | | | | [facility] | | | | + + + + +---------+ + + + + | Result panel 1786 | + + + + + + +---------+ + + | (unknown) | (no date) | (unknown) | [facility] | (no | (units | (unknown) | | | | | [facility] | value) | unknown) | | | | [facility] | | | | + + + + +---------+ + + + + | Result panel 1787 | + + + + + + +---------+ + + | (unknown) | (no date) | (unknown) | [facility] | (no | (units | (unknown) | | | | | [facility] | value) | unknown) | | | | | [facility] | | | | + + + + +---------+ + + + + | Result panel 1788 | + + + + + + +---------+ + + | (unknown) | (no date) | (unknown) | [facility] | (no | (units | (unknown) | | | | | [facility] | value) | unknown) | | | | | [facility] | | | | + + + + +---------+ + + + + | Result panel 1789 | + + + + + + +---------+ + + | (unknown) | (no date) | (unknown) | [facility] | (no | (units | (unknown) | | | | | [facility] | value) | unknown) | | | | | [facility] | | | | + + + + +---------+ + + + + | Result panel 1790 | + + + + + + +---------+ + + | (unknown) | (no date) | (unknown) | [facility] | (no | (units | (unknown) | | | | | [facility] | value) | unknown) | | | | | [facility] | | | | + + + + +---------+ + + + + | Result panel 1791 | + + + + + + +---------+ + + | (unknown) | (no date) | (unknown) | [facility] | (no | (units | (unknown) | | | | | [facility] | value) | unknown) | | | | [facility] | | | | + + + + +---------+ + + + + | Result panel 1792 | + + + + + + +---------+ + + | (unknown) | (no date) | (unknown) | [facility] | (no | (units | (unknown) | | | | | [facility] | value) | unknown) | | | | | [facility] | | | | + + + + +---------+ + + + + | Result panel 1793 | + + + + + + +---------+ + + | (unknown) | (no date) | (unknown) | [facility] | (no | (units | (unknown) | | | | | [facility] | value) | unknown) | | | | | [facility] | | | | + + + + +---------+ + + + + | Result panel 1794 | + + + + + + +---------+ + + | (unknown) | (no date) | (unknown) | [facility] | (no | (units | (unknown) | | | | | [facility] | value) | unknown) | | | | [facility] | | | | + + + + +---------+ + + + + | Result panel 1795 | + + + + + + +---------+ + + | (unknown) | (no date) | (unknown) | [facility] | (no | (units | (unknown) | | | | | [facility] | value) | unknown) | [facility] | | [facility] | | | | + + + + +---------+ + + + + | Result panel 1796 | + + + + + + +---------+ + + | (unknown) | (no date) | (unknown) | [facility] | (no | (units | (unknown) | | | | | [facility] | value) | unknown) | | | | | [facility] | | | | + + + + +---------+ + + + + | Result panel 1797 | + + + + + + +---------+ + + | (unknown) | (no date) | (unknown) | [facility] | (no | (units | (unknown) | | | | | [facility] | value) | unknown) | [facility] | | [facility] | | | | + + + + +---------+ + + + + | Result panel 1798 | + + + + + + +---------+ + + | (unknown) | (no date) | (unknown) | [facility] | (no | (units | (unknown) | | | | | [facility] | value) | unknown) | | | | | [facility] | | | | + + + + +---------+ + + + + | Result panel 1799 | + + + + + + +---------+ + + | (unknown) | (no date) | (unknown) | [facility] | (no | (units | (unknown) | | | | | [facility] | value) | unknown) | | | | | [facility] | | | | + + + + +---------+ + + + + | Result panel 1800 | + + + + + + +---------+ + + | (unknown) | (no date) | (unknown) | [facility] | (no | (units | (unknown) | | | | | [facility] | value) | unknown) | [facility] | | [facility] | | | | + + + + +---------+ + + + + | Result panel 1801 | + + + + + + +---------+ + + | (unknown) | (no date) | (unknown) | [facility] | (no | (units | (unknown) | | | | | [facility] | value) | unknown) | | | | [facility] | | | | + + + + +---------+ + + + + | Result panel 1802 | + + + + + + +---------+ + + | (unknown) | (no date) | (unknown) | [facility] | (no | (units | (unknown) | | | | | [facility] | value) | unknown) | | | | [facility] | | | | + + + + +---------+ + + + + | Result panel 1803 | + + + + + + +---------+ + + | (unknown) | (no date) | (unknown) | [facility] | (no | (units | (unknown) | | | | | [facility] | value) | unknown) | | [facility] | [facility] | | | | + + + + +---------+ + + + + | Result panel 1804 | + + + + + + +---------+ + + | (unknown) | (no date) | (unknown) | [facility] | (no | (units | (unknown) | | | | | [facility] | value) | unknown) | [facility] | | [facility] | | | | + + + + +---------+ + + + + | Result panel 1805 | + + + + + + +---------+ + + | (unknown) | (no date) | (unknown) | [facility] | (no | (units | (unknown) | | | | | [facility] | value) | unknown) | | | | [facility] | | | | + + + + +---------+ + + + + | Result panel 1806 | + + + + + + +---------+ + + | (unknown) | (no date) | (unknown) | [facility] | (no | (units | (unknown) | | | | | [facility] | value) | unknown) | | | | | [facility] | | | | + + + + +---------+ + + + + | Result panel 1807 | + + + + + + +---------+ + + | (unknown) | (no date) | (unknown) | [facility] | (no | (units | (unknown) | | | | | [facility] | value) | unknown) | | | | | | [facility] | | | | + + + + +---------+ + + + + | Result panel 1808 | + + + + + + +---------+ + + | (unknown) | (no date) | (unknown) | [facility] | (no | (units | (unknown) | | | | | [facility] | value) | unknown) | | | | | [facility] | | | | + + + + +---------+ + + + + | Result panel 1809 | + + + + + + +---------+ + + | (unknown) | (no date) | (unknown) | [facility] | (no | (units | (unknown) | | | | | [facility] | value) | unknown) | | | | | [facility] | | | | + + + + +---------+ + + + + | Result panel 1810 | + + + + + + +---------+ + + | (unknown) | (no date) | (unknown) | [facility] | (no | (units | (unknown) | | | | | [facility] | value) | unknown) | | | | | [facility] | | | | + + + + +---------+ + + + + | Result panel 1811 | + + + + + + +---------+ + + | (unknown) | (no date) | (unknown) | [facility] | (no | (units | (unknown) | | | | | [facility] | value) | unknown) | | | | | [facility] | | | | + + + + +---------+ + + + + | Result panel 1812 | + + + + + + +---------+ + + | (unknown) | (no date) | (unknown) | [facility] | (no | (units | (unknown) | | | | | [facility] | value) | unknown) | | | | | | [facility] | | | | + + + + +---------+ + + + + | Result panel 1813 | + + + + + + +---------+ + + | (unknown) | (no date) | (unknown) | [facility] | (no | (units | (unknown) | | | | | [facility] | value) | unknown) | | | | | | [facility] | | | | + + + + +---------+ + + + + | Result panel 1814 | + + + + + + +---------+ + + | (unknown) | (no date) | (unknown) | [facility] | (no | (units | (unknown) | | | | | [facility] | value) | unknown) | | | | | | [facility] | | | | + + + + +---------+ + + + + | Result panel 1815 | + + + + + + +---------+ + + | (unknown) | (no date) | (unknown) | [facility] | (no | (units | (unknown) | | | | | [facility] | value) | unknown) | | | | | [facility] | | | | + + + + +---------+ + + + + | Result panel 181 | + + + + + + +---------+ + + | (unknown) | (no date) | (unknown) | [facility] | (no | (units | (unknown) | | | | [facility] value) | unknown) | | | | | [facility] | | | | + + + + +---------+ + + + + | Result panel 181 | + + + + + + +---------+ + + | (unknown) | (no date) | (unknown) | [facility] | (no | (units | (unknown) | | | | [facility] | value) | unknown) | | | | | [facility] | | | | + + + + +---------+ + + + + | Result panel 1818 | + + + + + + +---------+ + + | (unknown) | (no date) | (unknown) | [facility] | (no | (units | (unknown) | | | | [facility] | value) | unknown) | | | | [facility] | | | | + + + + +---------+ + + + + | Result panel 181 | + + + + + + +---------+ + + | (unknown) | (no date) | (unknown) | [facility] | (no | (units | (unknown) | | | | [facility] | value) | unknown) | | | | | [facility] | | | | + + + + +---------+ + + + + | Result panel 1820 | + + + + + + +---------+ + + | (unknown) | (no date) | (unknown) | [facility] | (no | (units | (unknown) | | | | [facility] | value) | unknown) | | | | [facility] | | | | + + + + +---------+ + + + + | Result panel 1821 | + + + + + + +---------+ + + | (unknown) | (no date) | (unknown) | [facility] | (no | (units | (unknown) | | | | [facility] | value) | unknown) | | | [facility] | | | | + + + + +---------+ + + + + | Result panel 1822 | + + + + + + +---------+ + + | (unknown) | (no date) | (unknown) | [facility] | (no | (units | (unknown) | | | | [facility] value) | unknown) | | | [facility] | | | | + + + + +---------+ + + + + | Result panel 1823 | + + + + + + +---------+ + + | (unknown) | (no date) | (unknown) | [facility] | (no | (units | (unknown) | | | | [facility] | value) | unknown) | | | | [facility] | | | | + + + + +---------+ + + + + | Result panel 1824 | + + + + + + +---------+ + + | (unknown) | (no date) | (unknown) | [facility] | (no | (units | (unknown) | | | | [facility] | value) | unknown) | | | | [facility] | | | | + + + + +---------+ + + + + | Result panel 1825 | + + + + + + +---------+ + + | (unknown) | (no date) | (unknown) | [facility] | (no | (units | (unknown) | | | | [facility] | value) | unknown) | | | | | [facility] | | | | + + + + +---------+ + + + + | Result panel 1826 | + + + + + + +---------+ + + | (unknown) | (no date) | (unknown) | [facility] | (no | (units | (unknown) | | | | [facility] | value) | unknown) | | | | [facility] | | | | + + + + +---------+ + + + + | Result panel 1827 | + + + + + + +---------+ + + | (unknown) | (no date) | (unknown) | [facility] | (no | (units | (unknown) | | | | [facility] | value) | unknown) | | | | [facility] | | | | + + + + +---------+ + + + + | Result panel 1828 | + + + + + + +---------+ + + | (unknown) | (no date) | (unknown) | [facility] | (no | (units | (unknown) | | | | [facility] | value) | unknown) | | | | [facility] | | | | + + + + +---------+ + + + + | Result panel 1829 | + + + + + + +---------+ + + | (unknown) | (no date) | (unknown) | [facility] | (no | (units | (unknown) | | | | [facility] | value) | unknown) | | | | [facility] | | | | + + + + +---------+ + + + + | Result panel 1830 | + + + + + + +---------+ + + | (unknown) | (no date) | (unknown) | [facility] | (no | (units | (unknown) | | | | [facility] | value) | unknown) | | | | [facility] | | | | + + + + +---------+ + + + + | Result panel 1831 | + + + + + + +---------+ + + | (unknown) | (no date) | (unknown) | [facility] | (no | (units | (unknown) | | | | [facility] | value) | unknown) | | | | [facility] | | | | + + + + +---------+ + + + + | Result panel 1832 | + + + + + + +---------+ + + | (unknown) | (no date) | (unknown) | [facility] | (no | (units | (unknown) | | | | [facility] | value) | unknown) | | | | [facility] | | | | + + + + +---------+ + + + + | Result panel 1833 | + + + + + + +---------+ + + | (unknown) | (no date) | (unknown) | [facility] | (no | (units | (unknown) | | | | [facility] | value) | unknown) | | | | [facility] | | | | + + + + +---------+ + + + + | Result panel 1834 | + + + + + + +---------+ + + | (unknown) | (no date) | (unknown) | [facility] | (no | (units | (unknown) | | | | [facility] | value) | unknown) | | | | [facility] | | | | + + + + +---------+ + + + + | Result panel 1835 | + + + + + + +---------+ + + | (unknown) | (no date) | (unknown) | [facility] | (no | (units | (unknown) | | | | [facility] value) | unknown) | | | [facility] | | | | + + + + +---------+ + + + + | Result panel 1836 | + + + + + + +---------+ + + | (unknown) | (no date) | (unknown) | [facility] | (no | (units | (unknown) | | | | [facility] value) | unknown) | | | [facility] | | | | + + + + +---------+ + + + + | Result panel 1837 | + + + + + + +---------+ + + | (unknown) | (no date) | (unknown) | [facility] | (no | (units | (unknown) | | | | [facility] | value) | unknown) | | | [facility] | | | | + + + + +---------+ + + + + | Result panel 1838 | + + + + + + +---------+ + + | (unknown) | (no date) | (unknown) | [facility] | (no | (units | (unknown) | | | | [facility] | value) | unknown) | | | | [facility] | | | | + + + + +---------+ + + + + | Result panel 1839 | + + + + + + +---------+ + + | (unknown) | (no date) | (unknown) | [facility] | (no | (units | (unknown) | | | | [facility] | value) | unknown) | | | [facility] | | | | + + + + +---------+ + + + + | Result panel 1840 | + + + + + + +---------+ + + | (unknown) | (no date) | (unknown) | [facility] | (no | (units | (unknown) | | | | [facility] | value) | unknown) | | | [facility] | | | | + + + + +---------+ + + + + | Result panel 1841 | + + + + + + +---------+ + + | (unknown) | (no date) | (unknown) | [facility] | (no | (units | (unknown) | | | | [facility] | value) | unknown) | | [facility] | | | | + + + + +---------+ + + + + | Result panel 1842 | + + + + + + +---------+ + + | (unknown) | (no date) | (unknown) | [facility] | (no | (units | (unknown) | | | | [facility] | value) | unknown) | | | [facility] | | | | + + + + +---------+ + + + + | Result panel 1843 | + + + + + + +---------+ + + | (unknown) | (no date) | (unknown) | [facility] | (no | (units | (unknown) | | | | [facility] value) | unknown) | | [facility] | | | | + + + + +---------+ + + + + | Result panel 1844 | + + + + + + +---------+ + + | (unknown) | (no date) | (unknown) | [facility] | (no | (units | (unknown) | | | | [facility] | value) | unknown) | | | | [facility] | | | | + + + + +---------+ + + + + | Result panel 1845 | + + + + + + +---------+ + + | (unknown) | (no date) | (unknown) | [facility] | (no | (units | (unknown) | | | | [facility] value) | unknown) | | | [facility] | | | | + + + + +---------+ + + + + | Result panel 1846 | + + + + + + +---------+ + + | (unknown) | (no date) | (unknown) | [facility] | (no | (units | (unknown) | | | | [facility] value) | unknown) | | | | [facility] | | | | + + + + +---------+ + + + + | Result panel 1847 | + + + + + + +---------+ + + | (unknown) | (no date) | (unknown) | [facility] | (no | (units | (unknown) | | | | [facility] | value) | unknown) | | | | [facility] | | | | + + + + +---------+ + + + + | Result panel 1848 | + + + + + + +---------+ + + | (unknown) | (no date) | (unknown) | [facility] | (no | (units | (unknown) | | | | [facility] value) | unknown) | | | | [facility] | | | | + + + + +---------+ + + + + | Result panel 1849 | + + + + + + +---------+ + + | (unknown) | (no date) | (unknown) | [facility] | (no | (units | (unknown) | | | | [facility] | value) | unknown) | | | | [facility] | | | | + + + + +---------+ + + + + | Result panel 1850 | + + + + + + +---------+ + + | (unknown) | (no date) | (unknown) | [facility] | (no | (units | (unknown) | | | | [facility] value) | unknown) | | | | [facility] | | | | + + + + +---------+ + + + + | Result panel 1851 | + + + + + + +---------+ + + | (unknown) | (no date) | (unknown) | [facility] | (no | (units | (unknown) | | | | [facility] | value) | unknown) | | | | [facility] | | | | + + + + +---------+ + + + + | Result panel 185 | + + + + + + +---------+ + + | (unknown) | (no date) | (unknown) | [facility] | (no | (units | (unknown) | | | | [facility] | value) | unknown) | | | | [facility] | | | | + + + + +---------+ + + + + | Result panel 185 | + + + + + + +---------+ + + | (unknown) | (no date) | (unknown) | [facility] | (no | (units | (unknown) | | | | [facility] | value) | unknown) | | | | [facility] | | | | + + + + +---------+ + + + + | Result panel 185 | + + + + + + +---------+ + + | (unknown) | (no date) | (unknown) | [facility] | (no | (units | (unknown) | | | | [facility] | value) | unknown) | | | | [facility] | | | | + + + + +---------+ + + + + | Result panel 1855 | + + + + + + +---------+ + + | (unknown) | (no date) | (unknown) | [facility] | (no | (units | (unknown) | | | | [facility] | value) | unknown) | | | [facility] | | | | + + + + +---------+ + + + + | Result panel 1856 | + + + + + + +---------+ + + | (unknown) | (no date) | (unknown) | [facility] | (no | (units | (unknown) | | | | [facility] | value) | unknown) | | | [facility] | | | | + + + + +---------+ + + + + | Result panel 1857 | + + + + + + +---------+ + + | (unknown) | (no date) | (unknown) | [facility] | (no | (units | (unknown) | | | | [facility] | value) | unknown) | [facility] | [facility] | | | | + + + + +---------+ + + + + | Result panel 1858 | + + + + + + +---------+ + + | (unknown) | (no date) | (unknown) | [facility] | (no | (units | (unknown) | | | | [facility] value) | unknown) | [facility] | | | | + + + + +---------+ + + + + | Result panel 1859 | + + + + + + +---------+ + + | (unknown) | (no date) | (unknown) | [facility] | (no | (units | (unknown) | | | | [facility] value) | unknown) | [facility] | [facility] | | | | + + + + +---------+ + + + + | Result panel 1860 | + + + + + + +---------+ + + | (unknown) | (no date) | (unknown) | [facility] | (no | (units | (unknown) | | | | [facility] | value) | unknown) | | | | [facility] | | | | + + + + +---------+ + + + + | Result panel 1861 | + + + + + + +---------+ + + | (unknown) | (no date) | (unknown) | [facility] | (no | (units | (unknown) | | | | [facility] value) | unknown) | | | [facility] | | | | + + + + +---------+ + + + + | Result panel 1862 | + + + + + + +---------+ + + | (unknown) | (no date) | (unknown) | [facility] | (no | (units | (unknown) | | | | [facility] | value) | unknown) | | | [facility] | | | | + + + + +---------+ + + + + | Result panel 1863 | + + + + + + +---------+ + + | (unknown) | (no date) | (unknown) | [facility] | (no | (units | (unknown) | | | | [facility] | value) | unknown) | | | | [facility] | | | | + + + + +---------+ + + + + | Result panel 1864 | + + + + + + +---------+ + + | (unknown) | (no date) | (unknown) | [facility] | (no | (units | (unknown) | | | | [facility] | value) | unknown) | | | [facility] | | | | + + + + +---------+ + + + + | Result panel 1865 | + + + + + + +---------+ + + | (unknown) | (no date) | (unknown) | [facility] | (no | (units | (unknown) | | | | [facility] value) | unknown) | | | [facility] | | | | + + + + +---------+ + + + + | Result panel 1866 | + + + + + + +---------+ + + | (unknown) | (no date) | (unknown) | [facility] | (no | (units | (unknown) | | | | [facility] value) | unknown) | | | [facility] | | | | + + + + +---------+ + + + + | Result panel 1867 | + + + + + + +---------+ + + | (unknown) | (no date) | (unknown) | [facility] | (no | (units | (unknown) | | | | [facility] | value) | unknown) | | | [facility] | | | | + + + + +---------+ + + + + | Result panel 1868 | + + + + + + +---------+ + + | (unknown) | (no date) | (unknown) | [facility] | (no | (units | (unknown) | | | | [facility] value) | unknown) | | | [facility] | | | | + + + + +---------+ + + + + | Result panel 1869 | + + + + + + +---------+ + + | (unknown) | (no date) | (unknown) | [facility] | (no | (units | (unknown) | | | | [facility] value) | unknown) | [facility] | | | | + + + + +---------+ + + + + | Result panel 1870 | + + + + + + +---------+ + + | (unknown) | (no date) | (unknown) | [facility] | (no | (units | (unknown) | | | | [facility] value) | unknown) | | | [facility] | | | | + + + + +---------+ + + + + | Result panel 1871 | + + + + + + +---------+ + + | (unknown) | (no date) | (unknown) | [facility] | (no | (units | (unknown) | | | | [facility] value) | unknown) | | | [facility] | | | | + + + + +---------+ + + + + | Result panel 1872 | + + + + + + +---------+ + + | (unknown) | (no date) | (unknown) | [facility] | (no | (units | (unknown) | | | | [facility] value) | unknown) | | [facility] | | | | + + + + +---------+ + + + + | Result panel 1873 | + + + + + + +---------+ + + | (unknown) | (no date) | (unknown) | [facility] | (no | (units | (unknown) | | | | [facility] value) | unknown) | | [facility] | | | | + + + + +---------+ + + + + | Result panel 1874 | + + + + + + +---------+ + + | (unknown) | (no date) | (unknown) | [facility] | (no | (units | (unknown) | | | | [facility] value) | unknown) | | [facility] | | | | + + + + +---------+ + + + + | Result panel 1875 | + + + + + + +---------+ + + | (unknown) | (no date) | (unknown) | [facility] | (no | (units | (unknown) | | | | [facility] value[facility] | unknown) | | [facility] | | | | + + + + +---------+ + + + + | Result panel 1876 | + + + + + + +---------+ + + | (unknown) | (no date) | (unknown) | [facility] | (no | (units | (unknown) | | | | [facility] value[facility] | unknown) | | | [facility] | | | | + + + + +---------+ + + Social History + + + + | date | description | facility | + + + + | 2022-03-22 00:00 | Never smoker | [facility] | + + + + Vital Signs [...] 89 | lb | + + + +---------+"
--- OUTSIDE RECORDS SUMMARY | ~2023-03-20 | XMS | Continuity of Care Document ---
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 | Role | Phone | [...] | (no date) | Urticaria | [facility] (unknown[facility] | | + + + + + | (no date) | Headache | [facility] (unknown[facility] | [facility] | | + + + + + | (no date) | Mild | [facility] (unknown) | | [facility] | Hospital | | + + + + + | (no date) | Clindamycin | [facility] (unknown[facility] Hospital | | + + + + + | (no date) | clindamycin | [facility] (unknown[facility] Hospital | | + + + + + | (no date) | Rash | [facility] (unknown) | | | | Hospital | | + + + + + | (no date) | Amoxicillin | [facility] (unknown[facility] | [facility] | Hospital | | + + + + + | (no date) | Facial swelling | [facility] (unknown[facility] | [facility] | | + + + + + | (no date) | Lisinopril | [facility] ([facility] | | + + + + + | (no date) | lisinopril | [facility] ([facility] | | + + + + + | (no date) | Hydromorphone | [facility] (unknown[facility] | | | [facility] | | + + + + + | (no date) | Vancomycin | [facility] (unknown) [facility] | Hospital | | + + + + + | (no date) | Clindamycin | [facility] (unknown) [facility] | [facility] Hospital | | + + + + + | (no date) | Fentanyl | [facility] (unknown[facility] | Hospital | | + + + + + | (no date) | Morphine | [facility] (unknown[facility] Hospital | | + + + + + | (no date) | Clindamycin | [facility] (unknown[facility] | [facility] Hospital | | + + + + + | (no date) | Hydromorphone | [facility] (unknown[facility] | | + + + + + | (no date) | Itching | [facility] (unknown) | | | [facility] Hospital | | + + + + + | (no date) | Fentanyl | [facility] (unknown[facility] | | + + + + + | (no date) | Vancomycin | [facility] (unknown[facility] | | + + + + + | (no date) | Morphine | [facility] (unknown[facility] | | + + + + + | (no date) | morphine | [facility] (unknown[facility] | | + + + + + | (no date) | Amoxicillin | [facility] (unknown[facility] | | + + + + + | (no date) | amoxicillin | [facility] (unknown) | | | | Hospital | | + + + + + | (no date) | Morphine | [facility] (unknown) | | | | Hospital | | + + + + + | (no date) | Amoxicillin | [facility] | (unknown) | | | | Hospital [...] 2022-03-22 00:00 | No vaccine administered | [facility] | + + + + Medications + + + + | date | description | facility | + + + + | 2021-01-18 00:00 | FAMOTIDINE | [facility] | + + + + | 2022-03-22 00:00 | FAMOTIDINE | [facility] | + + + + | 2022-03-23 00:00 | FAMOTIDINE | [facility] | + + + + | 2022-03-25 00:00 | FAMOTIDINE | [facility] | + + + + | 2022-03-27 00:00 | FAMOTIDINE | [facility] | + + + + | 2022-03-28 00:00 | FAMOTIDINE | [facility] | + + + + | 2022-05-23 00:00 | FAMOTIDINE | [facility] | + + + + | 2022-06-18 00:00 | FAMOTIDINE | [facility] | + + + + | 2022-06-22 00:00 | FAMOTIDINE | [facility] | + + + + | 2022-07-03 00:00 | FAMOTIDINE | [facility] | + + + + | 2022-07-08 00:00 | FAMOTIDINE | [facility] | + + + + | 2022-07-29 00:00 | FAMOTIDINE | [facility] | + + + + | 2022-08-03 00:00 | FAMOTIDINE | [facility] | + + + + | 2022-08-05 00:00 | FAMOTIDINE | [facility] | + + + + | 2022-08-17 00:00 | FAMOTIDINE | [facility] | + + + + | 2022-09-14 00:00 | FAMOTIDINE | [facility] | + + + + | 2022-09-23 00:00 | FAMOTIDINE | [facility] | + + + + | 2022-10-08 00:00 | FAMOTIDINE | [facility] | + + + + | 2022-10-11 00:00 | FAMOTIDINE | [facility] | + + + + | 2022-10-30 00:00 | FAMOTIDINE | [facility] | + + + + | 2022-11-24 00:00 | FAMOTIDINE | [facility] | + + + + | 2022-12-10 00:00 | FAMOTIDINE | [facility] | + + + + | 2023-01-03 00:00 | FAMOTIDINE | [facility] | + + + + | 2023-01-05 00:00 | FAMOTIDINE | [facility] | + + + + | 2023-01-21 00:00 | FAMOTIDINE | [facility] | + + + + | 2023-01-27 00:00 | FAMOTIDINE | [facility] | + + + + | 2023-02-02 00:00 | FAMOTIDINE | [facility] | + + + + | 2023-02-11 00:00 | FAMOTIDINE | [facility] | + + + + | 2023-02-23 00:00 | FAMOTIDINE | [facility] | + + + + | 2023-03-05 00:00 | FAMOTIDINE | [facility] | + + + + | 2023-03-12 00:00 | FAMOTIDINE | [facility] | + + + + | 2021-01-18 00:00 | famotidine 20 MG Oral | [facility] | | | Tablet [Pepcid] | | + + + + | 2022-03-22 00:00 | famotidine 20 MG Oral | [facility] | | | Tablet [Pepcid] | | + + + + | 2022-03-07 00:00 | ONDANSETRON | [facility] | + + + + | 2022-07-03 00:00 | ONDANSETRON | [facility] | + + + + | 2022-09-23 00:00 | ONDANSETRON | [facility] | + + + + | 2022-10-06 00:00 | ONDANSETRON | [facility] | + + + + | 2022-03-07 00:00 | ondansetron 4 MG | [facility] | | | Disintegrating Oral Tablet | | + + + + | 2018-10-19 00:00 | ONDANSETRON HCL | [facility] | + + + + | 2021-01-18 00:00 | ONDANSETRON HCL | [facility] | + + + + | 2022-03-23 00:00 | ONDANSETRON HCL | [facility] | + + + + | 2022-03-25 00:00 | ONDANSETRON HCL | [facility] | + + + + | 2022-03-27 00:00 | ONDANSETRON HCL | [facility] | + + + + | 2022-03-28 00:00 | ONDANSETRON HCL | [facility] | + + + + | 2022-06-18 00:00 | ONDANSETRON HCL | [facility] | + + + + | 2022-06-22 00:00 | ONDANSETRON HCL | [facility] | + + + + | 2022-07-03 00:00 | ONDANSETRON HCL | [facility] | + + + + | 2022-07-08 00:00 | ONDANSETRON HCL | [facility] | + + + + | 2022-07-29 00:00 | ONDANSETRON HCL | [facility] | + + + + | 2022-08-03 00:00 | ONDANSETRON HCL | [facility] | + + + + | 2022-08-05 00:00 | ONDANSETRON HCL | [facility] | + + + + | 2022-08-17 00:00 | ONDANSETRON HCL | [facility] | + + + + | 2022-09-14 00:00 | ONDANSETRON HCL | [facility] | + + + + | 2022-09-23 00:00 | ONDANSETRON HCL | [facility] | + + + + | 2022-10-08 00:00 | ONDANSETRON HCL | [facility] | + + + + | 2022-10-11 00:00 | ONDANSETRON HCL | [facility] | + + + + | 2022-10-30 00:00 | ONDANSETRON HCL | [facility] | + + + + | 2022-11-24 00:00 | ONDANSETRON HCL | [facility] | + + + + | 2022-12-10 00:00 | ONDANSETRON HCL | [facility] | + + + + | 2023-01-03 00:00 | ONDANSETRON HCL | [facility] | + + + + | 2023-01-05 00:00 | ONDANSETRON HCL | [facility] | + + + + | 2023-01-21 00:00 | ONDANSETRON HCL | [facility] | + + + + | 2023-01-27 00:00 | ONDANSETRON HCL | [facility] | + + + + | 2023-02-02 00:00 | ONDANSETRON HCL | [facility] | + + + + | 2023-02-11 00:00 | ONDANSETRON HCL | [facility] | + + + + | 2023-02-23 00:00 | ONDANSETRON HCL | [facility] | + + + + | 2023-03-05 00:00 | ONDANSETRON HCL | [facility] | + + + + | 2023-03-12 00:00 | ONDANSETRON HCL | [facility] | + + + + | 2018-10-19 00:00 | ondansetron 4 MG Oral | [facility] | | | Tablet [Zofran] | | + + + + | 2021-01-18 00:00 | ondansetron 4 MG Oral | [facility] | | | Tablet [Zofran] | | + + + + | 2022-03-22 00:00 | ondansetron 4 MG Oral | [facility] | | | Tablet [Zofran] | | + + + + | 2022-03-18 00:00 | OXYCODONE HCL | [facility] | + + + + | 2022-03-18 00:00 | oxycodone hydrochloride 5 | [facility] | | | MG Oral Tablet | | + + + + | 2022-07-03 00:00 | NAPROXEN | [facility] | + + + + | 2021-03-01 00:00 | PHENAZOPYRIDINE HCL | [facility] | + + + + | 2021-07-14 00:00 | PHENAZOPYRIDINE HCL | [facility] | + + + + | 2021-03-01 00:00 | phenazopyridine | [facility] | | | hydrochloride 200 MG Oral | | | | Tablet [Pyridium] | | + + + + | 2021-07-14 00:00 | phenazopyridine | [facility] | | | hydrochloride 200 MG Oral | | | | Tablet [Pyridium] | | + + + + | 2022-03-22 00:00 | Ness-Linyah 28 Day Pack | [facility] | + + + + | 2022-03-23 00:00 | NORGESTIMATE-ETHINYL | [facility] | | | ESTRADIOL | | + + + + | 2022-03-25 00:00 | NORGESTIMATE-ETHINYL | [facility] | | | ESTRADIOL | | + + + + | 2022-03-27 00:00 | NORGESTIMATE-ETHINYL | [facility] | | | ESTRADIOL | | + + + + | 2022-03-28 00:00 | NORGESTIMATE-ETHINYL | [facility] | | | ESTRADIOL | | + + + + | 2022-06-18 00:00 | NORGESTIMATE-ETHINYL | [facility] | | | ESTRADIOL | | + + + + | 2022-06-22 00:00 | NORGESTIMATE-ETHINYL | [facility] | | | ESTRADIOL | | + + + + | 2022-07-03 00:00 | NORGESTIMATE-ETHINYL | [facility] | | | ESTRADIOL | | + + + + | 2022-07-08 00:00 | NORGESTIMATE-ETHINYL | [facility] | | | ESTRADIOL | | + + + + | 2022-07-29 00:00 | NORGESTIMATE-ETHINYL | [facility] | | | ESTRADIOL | | + + + + | 2022-08-03 00:00 | NORGESTIMATE-ETHINYL | [facility] | | | ESTRADIOL | | + + + + | 2022-08-05 00:00 | NORGESTIMATE-ETHINYL | [facility] | | | ESTRADIOL | | + + + + | 2022-08-17 00:00 | NORGESTIMATE-ETHINYL | [facility] | | | ESTRADIOL | | + + + + | 2022-09-14 00:00 | NORGESTIMATE-ETHINYL | [facility] | | | ESTRADIOL | | + + + + | 2022-09-23 00:00 | NORGESTIMATE-ETHINYL | [facility] | | | ESTRADIOL | | + + + + | 2022-10-08 00:00 | NORGESTIMATE-ETHINYL | [facility] | | | ESTRADIOL | | + + + + | 2022-10-11 00:00 | NORGESTIMATE-ETHINYL | [facility] | | | ESTRADIOL | | + + + + | 2022-10-30 00:00 | NORGESTIMATE-ETHINYL | [facility] | | | ESTRADIOL | | + + + + | 2022-11-24 00:00 | NORGESTIMATE-ETHINYL | [facility] | | | ESTRADIOL | | + + + + | 2022-12-10 00:00 | NORGESTIMATE-ETHINYL | [facility] | | | ESTRADIOL | | + + + + | 2023-01-03 00:00 | NORGESTIMATE-ETHINYL | [facility] | | | ESTRADIOL | | + + + + | 2023-01-05 00:00 | NORGESTIMATE-ETHINYL | [facility] | | | ESTRADIOL | | + + + + | 2023-01-21 00:00 | NORGESTIMATE-ETHINYL | [facility] | | | ESTRADIOL | | + + + + | 2023-01-27 00:00 | NORGESTIMATE-ETHINYL | [facility] | | | ESTRADIOL | | + + + + | 2023-02-02 00:00 | NORGESTIMATE-ETHINYL | [facility] | | | ESTRADIOL | | + + + + | 2023-02-11 00:00 | NORGESTIMATE-ETHINYL | [facility] | | | ESTRADIOL | | + + + + | 2023-02-23 00:00 | NORGESTIMATE-ETHINYL | [facility] | | | ESTRADIOL | | + + + + | 2023-03-05 00:00 | NORGESTIMATE-ETHINYL | [facility] | | | ESTRADIOL | | + + + + | 2023-03-12 00:00 | NORGESTIMATE-ETHINYL | [facility] | | | ESTRADIOL | | + + + + | 2022-03-23 00:00 | ERGOCALCIFEROL (VITAMIN | [facility] | | | D2) | | + + + + | 2022-03-25 00:00 | ERGOCALCIFEROL (VITAMIN | [facility] | | | D2) | | + + + + | 2022-03-27 00:00 | ERGOCALCIFEROL (VITAMIN | [facility] | | | D2) | | + + + + | 2022-03-28 00:00 | ERGOCALCIFEROL (VITAMIN | [facility] | | | D2) | | + + + + | 2022-06-18 00:00 | ERGOCALCIFEROL (VITAMIN | [facility] | | | D2) | | + + + + | 2022-06-22 00:00 | ERGOCALCIFEROL (VITAMIN | [facility] | | | D2) | | + + + + | 2022-07-03 00:00 | ERGOCALCIFEROL (VITAMIN | [facility] | | | D2) | | + + + + | 2022-07-08 00:00 | ERGOCALCIFEROL (VITAMIN | [facility] | | | D2) | | + + + + | 2022-07-29 00:00 | ERGOCALCIFEROL (VITAMIN | [facility] | | | D2) | | + + + + | 2022-08-03 00:00 | ERGOCALCIFEROL (VITAMIN | [facility] | | | D2) | | + + + + | 2022-08-05 00:00 | ERGOCALCIFEROL (VITAMIN | [facility] | | | D2) | | + + + + | 2022-08-17 00:00 | ERGOCALCIFEROL (VITAMIN | [facility] | | | D2) | | + + + + | 2022-09-14 00:00 | ERGOCALCIFEROL (VITAMIN | [facility] | | | D2) | | + + + + | 2022-09-23 00:00 | ERGOCALCIFEROL (VITAMIN | [facility] | | | D2) | | + + + + | 2022-10-08 00:00 | ERGOCALCIFEROL (VITAMIN | [facility] | | | D2) | | + + + + | 2022-10-11 00:00 | ERGOCALCIFEROL (VITAMIN | [facility] | | | D2) | | + + + + | 2022-10-30 00:00 | ERGOCALCIFEROL (VITAMIN | [facility] | | | D2) | | + + + + | 2022-11-24 00:00 | ERGOCALCIFEROL (VITAMIN | [facility] | | | D2) | | + + + + | 2022-12-10 00:00 | ERGOCALCIFEROL (VITAMIN | [facility] | | | D2) | | + + + + | 2023-01-03 00:00 | ERGOCALCIFEROL (VITAMIN | [facility] | | | D2) | | + + + + | 2023-01-05 00:00 | ERGOCALCIFEROL (VITAMIN | [facility] | | | D2) | | + + + + | 2023-01-21 00:00 | ERGOCALCIFEROL (VITAMIN | [facility] | | | D2) | | + + + + | 2023-01-27 00:00 | ERGOCALCIFEROL (VITAMIN | [facility] | | | D2) | | + + + + | 2023-02-02 00:00 | ERGOCALCIFEROL (VITAMIN | [facility] | | | D2) | | + + + + | 2023-02-11 00:00 | ERGOCALCIFEROL (VITAMIN | [facility] | | | D2) | | + + + + | 2023-02-23 00:00 | ERGOCALCIFEROL (VITAMIN | [facility] | | | D2) | | + + + + | 2023-03-05 00:00 | ERGOCALCIFEROL (VITAMIN | [facility] | | | D2) | | + + + + | 2023-03-12 00:00 | ERGOCALCIFEROL (VITAMIN | [facility] | | | D2) | | + + + + | 2022-03-22 00:00 | Ergocalciferol (Vitamin | [facility] | | | D2) | | + + + + | 2022-03-22 00:00 | ergocalciferol 1.25 MG | [facility] | | | Oral Capsule | | + + + + | 2022-03-22 00:00 | Mesalamine | [facility] | + + + + | 2022-03-22 00:00 | mesalamine 400 MG Delayed | [facility] | | | Release Oral Capsule | | | | [Delzicol] | | + + + + | 2023-03-12 00:00 | DOXYCYCLINE HYCLATE | [facility] | + + + + | 2022-08-03 00:00 | INSULIN LISPRO | [facility] | + + + + | 2022-06-22 00:00 | Insulin Lispro | [facility] | + + + + | 2022-07-03 00:00 | Insulin Lispro | [facility] | + + + + | 2022-07-08 00:00 | Insulin Lispro | [facility] | + + + + | 2022-07-29 00:00 | Insulin Lispro | [facility] | + + + + | 2022-08-03 00:00 | Insulin Lispro | [facility] | + + + + | 2022-08-05 00:00 | Insulin Lispro | [facility] | + + + + | 2022-03-22 00:00 | 3 ML insulin lispro 100 | [facility] | | | UNT/ML Pen Injector | | | | [Humalog] | | + + + + | 2022-03-23 00:00 | INSULIN LISPRO | [facility] | + + + + | 2022-03-25 00:00 | INSULIN LISPRO | [facility] | + + + + | 2022-03-27 00:00 | INSULIN LISPRO | [facility] | + + + + | 2022-03-28 00:00 | INSULIN LISPRO | [facility] | + + + + | 2022-06-18 00:00 | INSULIN LISPRO | [facility] | + + + + | 2022-03-22 00:00 | 3 ML insulin aspart, human | [facility] | | | 100 UNT/ML Pen Injector | | | | [NovoLog] | | + + + + | 2022-03-23 00:00 | INSULIN ASPART | [facility] | + + + + | 2022-03-25 00:00 | INSULIN ASPART | [facility] | + + + + | 2022-03-27 00:00 | INSULIN ASPART | [facility] | + + + + | 2022-03-28 00:00 | INSULIN ASPART | [facility] | + + + + | 2022-06-18 00:00 | INSULIN ASPART | [facility] | + + + + | 2022-06-22 00:00 | INSULIN ASPART | [facility] | + + + + | 2022-07-03 00:00 | INSULIN ASPART | [facility] | + + + + | 2022-07-08 00:00 | INSULIN ASPART | [facility] | + + + + | 2022-07-29 00:00 | INSULIN ASPART | [facility] | + + + + | 2022-08-03 00:00 | INSULIN ASPART | [facility] | + + + + | 2022-08-05 00:00 | INSULIN ASPART | [facility] | + + + + | 2022-08-17 00:00 | INSULIN ASPART | [facility] | + + + + | 2022-09-14 00:00 | INSULIN ASPART | [facility] | + + + + | 2022-09-23 00:00 | INSULIN ASPART | [facility] | + + + + | 2022-10-08 00:00 | INSULIN ASPART | [facility] | + + + + | 2022-10-11 00:00 | INSULIN ASPART | [facility] | + + + + | 2022-10-30 00:00 | INSULIN ASPART | [facility] | + + + + | 2022-11-24 00:00 | INSULIN ASPART | [facility] | + + + + | 2022-12-10 00:00 | INSULIN ASPART | [facility] | + + + + | 2023-01-03 00:00 | INSULIN ASPART | [facility] | + + + + | 2023-01-05 00:00 | INSULIN ASPART | [facility] | + + + + | 2023-01-21 00:00 | INSULIN ASPART | [facility] | + + + + | 2023-01-27 00:00 | INSULIN ASPART | [facility] | + + + + | 2023-02-02 00:00 | INSULIN ASPART | [facility] | + + + + | 2023-02-11 00:00 | INSULIN ASPART | [facility] | + + + + | 2023-02-23 00:00 | INSULIN ASPART | [facility] | + + + + | 2023-03-05 00:00 | INSULIN ASPART | [facility] | + + + + | 2023-03-12 00:00 | INSULIN ASPART | [facility] | + + + + | 2023-01-21 00:00 | CEPHALEXIN | [facility] | + + + + | 2022-03-23 00:00 | ESTRADIOL | [facility] | + + + + | 2022-03-25 00:00 | ESTRADIOL | [facility] | + + + + | 2022-03-27 00:00 | ESTRADIOL | [facility] | + + + + | 2022-03-28 00:00 | ESTRADIOL | [facility] | + + + + | 2022-06-18 00:00 | ESTRADIOL | [facility] | + + + + | 2022-06-22 00:00 | ESTRADIOL | [facility] | + + + + | 2022-07-03 00:00 | ESTRADIOL | [facility] | + + + + | 2022-07-08 00:00 | ESTRADIOL | [facility] | + + + + | 2022-07-29 00:00 | ESTRADIOL | [facility] | + + + + | 2022-08-03 00:00 | ESTRADIOL | [facility] | + + + + | 2022-08-05 00:00 | ESTRADIOL | [facility] | + + + + | 2022-08-17 00:00 | ESTRADIOL | [facility] | + + + + | 2022-09-14 00:00 | ESTRADIOL | [facility] | + + + + | 2022-09-23 00:00 | ESTRADIOL | [facility] | + + + + | 2022-10-08 00:00 | ESTRADIOL | [facility] | + + + + | 2022-10-11 00:00 | ESTRADIOL | [facility] | + + + + | 2022-10-30 00:00 | ESTRADIOL | [facility] | + + + + | 2022-11-24 00:00 | ESTRADIOL | [facility] | + + + + | 2022-12-10 00:00 | ESTRADIOL | [facility] | + + + + | 2023-01-03 00:00 | ESTRADIOL | [facility] | + + + + | 2023-01-05 00:00 | ESTRADIOL | [facility] | + + + + | 2023-01-21 00:00 | ESTRADIOL | [facility] | + + + + | 2023-01-27 00:00 | ESTRADIOL | [facility] | + + + + | 2023-02-02 00:00 | ESTRADIOL | [facility] | + + + + | 2023-02-11 00:00 | ESTRADIOL | [facility] | + + + + | 2023-02-23 00:00 | ESTRADIOL | [facility] | + + + + | 2023-03-05 00:00 | ESTRADIOL | [facility] | + + + + | 2023-03-12 00:00 | ESTRADIOL | [facility] | + + + + | 2022-03-22 00:00 | estradiol 2 MG Oral Tablet | [facility] | | | | | + + + + | 2022-10-08 00:00 | NAPROXEN | [facility] | + + + + | 2021-07-31 00:00 | OMEPRAZOLE | [facility] | + + + + | 2021-07-31 00:00 | omeprazole 20 MG Delayed | [facility] [facility] | | | Release Oral Capsule | | + + + + | 2023-03-12 00:00 | ONDANSETRON HCL | [facility] | + + + + | 2022-06-22 00:00 | CEFDINIR | [facility] | + + + + | 2022-09-14 00:00 | Metoprolol Succinate | [facility] | + + + + | 2022-09-23 00:00 | Metoprolol Succinate | [facility] | + + + + | 2022-10-08 00:00 | Metoprolol Succinate | [facility] | + + + + | 2022-10-11 00:00 | Metoprolol Succinate | [facility] | + + + + | 2022-10-30 00:00 | Metoprolol Succinate | [facility] | + + + + | 2022-11-24 00:00 | Metoprolol Succinate | [facility] | + + + + | 2022-12-10 00:00 | Metoprolol Succinate | [facility] | + + + + | 2023-01-03 00:00 | Metoprolol Succinate | [facility] | + + + + | 2023-01-05 00:00 | Metoprolol Succinate | [facility] | + + + + | 2023-01-21 00:00 | Metoprolol Succinate | [facility] | + + + + | 2023-01-27 00:00 | Metoprolol Succinate | [facility] | + + + + | 2023-02-02 00:00 | Metoprolol Succinate | [facility] | + + + + | 2023-02-11 00:00 | Metoprolol Succinate | [facility] | + + + + | 2023-02-23 00:00 | Metoprolol Succinate | [facility] | + + + + | 2023-03-05 00:00 | Metoprolol Succinate | [facility] | + + + + | 2023-03-12 00:00 | Metoprolol Succinate | [facility] | + + + + | 2022-03-23 00:00 | ESTRADIOL | [facility] | + + + + | 2022-03-25 00:00 | ESTRADIOL | [facility] | + + + + | 2022-03-27 00:00 | ESTRADIOL | [facility] | + + + + | 2022-03-28 00:00 | ESTRADIOL | [facility] | + + + + | 2022-06-18 00:00 | ESTRADIOL | [facility] | + + + + | 2022-06-22 00:00 | ESTRADIOL | [facility] | + + + + | 2022-07-03 00:00 | ESTRADIOL | [facility] | + + + + | 2022-07-08 00:00 | ESTRADIOL | [facility] | + + + + | 2022-07-29 00:00 | ESTRADIOL | [facility] | + + + + | 2022-08-03 00:00 | ESTRADIOL | [facility] | + + + + | 2022-08-05 00:00 | ESTRADIOL | [facility] | + + + + | 2022-08-17 00:00 | ESTRADIOL | [facility] | + + + + | 2022-09-14 00:00 | ESTRADIOL | [facility] | + + + + | 2022-09-23 00:00 | ESTRADIOL | [facility] | + + + + | 2022-10-08 00:00 | ESTRADIOL | [facility] | + + + + | 2022-10-11 00:00 | ESTRADIOL | [facility] | + + + + | 2022-10-30 00:00 | ESTRADIOL | [facility] | + + + + | 2022-11-24 00:00 | ESTRADIOL | [facility] | + + + + | 2022-12-10 00:00 | ESTRADIOL | [facility] | + + + + | 2023-01-03 00:00 | ESTRADIOL | [facility] | + + + + | 2023-01-05 00:00 | ESTRADIOL | [facility] | + + + + | 2023-01-21 00:00 | ESTRADIOL | [facility] | + + + + | 2023-01-27 00:00 | ESTRADIOL | [facility] | + + + + | 2023-02-02 00:00 | ESTRADIOL | [facility] | + + + + | 2023-02-11 00:00 | ESTRADIOL | [facility] | + + + + | 2023-02-23 00:00 | ESTRADIOL | [facility] | + + + + | 2023-03-05 00:00 | ESTRADIOL | [facility] | + + + + | 2023-03-12 00:00 | ESTRADIOL | [facility] | + + + + | 2022-03-22 00:00 | estradiol 1 MG Oral Tablet | [facility] | | | [Estrace] | | + + + + | 2022-10-06 00:00 | FLUCONAZOLE | [facility] | + + + + | 2021-07-31 00:00 | METOCLOPRAMIDE HCL | [facility] | + + + + | 2021-07-31 00:00 | metoclopramide 10 MG Oral | [facility] | | | Tablet [Reglan] | | + + + + | 2022-06-22 00:00 | Cholecalciferol (Vitamin | [facility] | | | D3) | | + + + + | 2022-07-03 00:00 | Cholecalciferol (Vitamin | [facility] | | | D3) | | + + + + | 2022-07-08 00:00 | Cholecalciferol (Vitamin | [facility] | | | D3) | | + + + + | 2022-07-29 00:00 | Cholecalciferol (Vitamin | [facility] | | | D3) | | + + + + | 2022-08-03 00:00 | Cholecalciferol (Vitamin | [facility] | | | D3) | | + + + + | 2022-08-05 00:00 | Cholecalciferol (Vitamin | [facility] | | | D3) | | + + + + | 2022-03-23 00:00 | ASCORBIC ACID | [facility] | + + + + | 2022-03-25 00:00 | ASCORBIC ACID | [facility] | + + + + | 2022-03-27 00:00 | ASCORBIC ACID | [facility] | + + + + | 2022-03-28 00:00 | ASCORBIC ACID | [facility] | + + + + | 2022-06-18 00:00 | ASCORBIC ACID | [facility] | + + + + | 2022-06-22 00:00 | ASCORBIC ACID | [facility] | + + + + | 2022-07-03 00:00 | ASCORBIC ACID | [facility] | + + + + | 2022-07-08 00:00 | ASCORBIC ACID | [facility] | + + + + | 2022-07-29 00:00 | ASCORBIC ACID | [facility] | + + + + | 2022-08-03 00:00 | ASCORBIC ACID | [facility] | + + + + | 2022-08-05 00:00 | ASCORBIC ACID | [facility] | + + + + | 2022-08-17 00:00 | ASCORBIC ACID | [facility] | + + + + | 2022-09-14 00:00 | ASCORBIC ACID | [facility] | + + + + | 2022-09-23 00:00 | ASCORBIC ACID | [facility] | + + + + | 2022-10-08 00:00 | ASCORBIC ACID | [facility] | + + + + | 2022-10-11 00:00 | ASCORBIC ACID | [facility] | + + + + | 2022-10-30 00:00 | ASCORBIC ACID | [facility] | + + + + | 2022-11-24 00:00 | ASCORBIC ACID | [facility] | + + + + | 2022-12-10 00:00 | ASCORBIC ACID | [facility] | + + + + | 2023-01-03 00:00 | ASCORBIC ACID | [facility] | + + + + | 2023-01-05 00:00 | ASCORBIC ACID | [facility] | + + + + | 2023-01-21 00:00 | ASCORBIC ACID | [facility] | + + + + | 2023-01-27 00:00 | ASCORBIC ACID | [facility] | + + + + | 2023-02-02 00:00 | ASCORBIC ACID | [facility] | + + + + | 2023-02-11 00:00 | ASCORBIC ACID | [facility] | + + + + | 2023-02-23 00:00 | ASCORBIC ACID | [facility] | + + + + | 2023-03-05 00:00 | ASCORBIC ACID | [facility] | + + + + | 2023-03-12 00:00 | ASCORBIC ACID | [facility] | + + + + | 2022-03-22 00:00 | ascorbic acid 500 MG Oral | [facility] | | | Tablet | | + + + + | 2022-03-23 00:00 | AMLODIPINE BESYLATE | [facility] | + + + + | 2022-03-25 00:00 | AMLODIPINE BESYLATE | [facility] | + + + + | 2022-03-27 00:00 | AMLODIPINE BESYLATE | [facility] | + + + + | 2022-03-28 00:00 | AMLODIPINE BESYLATE | [facility] | + + + + | 2022-06-18 00:00 | AMLODIPINE BESYLATE | [facility] | + + + + | 2022-06-22 00:00 | AMLODIPINE BESYLATE | [facility] | + + + + | 2022-07-03 00:00 | AMLODIPINE BESYLATE | [facility] | + + + + | 2022-07-08 00:00 | AMLODIPINE BESYLATE | [facility] | + + + + | 2022-07-29 00:00 | AMLODIPINE BESYLATE | [facility] | + + + + | 2022-08-03 00:00 | AMLODIPINE BESYLATE | [facility] | + + + + | 2022-08-05 00:00 | AMLODIPINE BESYLATE | [facility] | + + + + | 2022-08-17 00:00 | AMLODIPINE BESYLATE | [facility] | + + + + | 2022-09-14 00:00 | AMLODIPINE BESYLATE | [facility] | + + + + | 2022-09-23 00:00 | AMLODIPINE BESYLATE | [facility] | + + + + | 2022-10-08 00:00 | AMLODIPINE BESYLATE | [facility] | + + + + | 2022-10-11 00:00 | AMLODIPINE BESYLATE | [facility] | + + + + | 2022-10-30 00:00 | AMLODIPINE BESYLATE | [facility] | + + + + | 2022-11-24 00:00 | AMLODIPINE BESYLATE | [facility] | + + + + | 2022-12-10 00:00 | AMLODIPINE BESYLATE | [facility] | + + + + | 2023-01-03 00:00 | AMLODIPINE BESYLATE | [facility] | + + + + | 2023-01-05 00:00 | AMLODIPINE BESYLATE | [facility] | + + + + | 2023-01-21 00:00 | AMLODIPINE BESYLATE | [facility] | + + + + | 2023-01-27 00:00 | AMLODIPINE BESYLATE | [facility] | + + + + | 2023-02-02 00:00 | AMLODIPINE BESYLATE | [facility] | + + + + | 2023-02-11 00:00 | AMLODIPINE BESYLATE | [facility] | + + + + | 2023-02-23 00:00 | AMLODIPINE BESYLATE | [facility] | + + + + | 2023-03-05 00:00 | AMLODIPINE BESYLATE | [facility] | + + + + | 2023-03-12 00:00 | AMLODIPINE BESYLATE | [facility] | + + + + | 2022-03-22 00:00 | amlodipine 2.5 MG Oral | [facility] | | | Tablet | | + + + + | 2021-03-01 00:00 | CEPHALEXIN | [facility] | + + + + | 2021-07-14 00:00 | CEPHALEXIN | [facility] | + + + + | 2021-10-25 00:00 | CEPHALEXIN | [facility] | + + + + | 2022-02-14 00:00 | CEPHALEXIN | [facility] | + + + + | 2021-03-01 00:00 | cephalexin 500 MG Oral | [facility] | | | Capsule | | + + + + | 2021-07-14 00:00 | cephalexin 500 MG Oral | [facility] | | | Capsule | | + + + + | 2021-10-25 00:00 | cephalexin 500 MG Oral | [facility] | | | Capsule | | + + + + | 2022-02-14 00:00 | cephalexin 500 MG Oral | [facility] | | | Capsule | | + + + + | 2022-03-22 00:00 | Ferrous Sulfate | [facility] | + + + + | 2022-03-22 00:00 | ferrous sulfate 325 MG | [facility] | | | Oral Tablet | | + + + + | 2022-02-13 00:00 | ONDANSETRON | [facility] | + + + + | 2023-01-05 00:00 | ONDANSETRON | [facility] | + + + + | 2022-02-13 00:00 | ondansetron 8 MG | [facility] | | | Disintegrating Oral Tablet | | + + + + | 2022-03-18 00:00 | PROCHLORPERAZINE MALEATE | [facility] | + + + + | 2022-03-18 00:00 | prochlorperazine 5 MG Oral | [facility] | | | Tablet | | + + + + | 2022-03-23 00:00 | ACETAMINOPHEN | [facility] | + + + + | 2022-03-25 00:00 | ACETAMINOPHEN | [facility] | + + + + | 2022-03-27 00:00 | ACETAMINOPHEN | [facility] | + + + + | 2022-03-28 00:00 | ACETAMINOPHEN | [facility] | + + + + | 2022-03-22 00:00 | acetaminophen 325 MG Oral | [facility] | | | Tablet | | + + + + | 2022-03-23 00:00 | LISINOPRIL | [facility] | + + + + | 2022-03-25 00:00 | LISINOPRIL | [facility] | + + + + | 2022-03-27 00:00 | LISINOPRIL | [facility] | + + + + | 2022-03-28 00:00 | LISINOPRIL | [facility] | + + + + | 2022-06-18 00:00 | LISINOPRIL | [facility] | + + + + 2022-06-22 00:00 | LISINOPRIL | [facility] | + + + + | 2022-07-03 00:00 | LISINOPRIL | [facility] | + + + + | 2022-07-08 00:00 | LISINOPRIL | [facility] | + + + + | 2022-07-29 00:00 | LISINOPRIL | [facility] | + + + + | 2022-08-03 00:00 | LISINOPRIL | [facility] | + + + + | 2022-08-05 00:00 | LISINOPRIL | [facility] | + + + + | 2022-08-17 00:00 | LISINOPRIL | [facility] | + + + + | 2022-09-14 00:00 | LISINOPRIL | [facility] | + + + + | 2022-09-23 00:00 | LISINOPRIL | [facility] | + + + + | 2022-10-08 00:00 | LISINOPRIL | [facility] | + + + + | 2022-10-11 00:00 | LISINOPRIL | [facility] | + + + + | 2022-10-30 00:00 | LISINOPRIL | [facility] | + + + + | 2022-11-24 00:00 | LISINOPRIL | [facility] | + + + + | 2022-12-10 00:00 | LISINOPRIL | [facility] | + + + + | 2023-01-03 00:00 | LISINOPRIL | [facility] | + + + + | 2023-01-05 00:00 | LISINOPRIL | [facility] | + + + + | 2023-01-21 00:00 | LISINOPRIL | [facility] | + + + + | 2023-01-27 00:00 | LISINOPRIL | [facility] | + + + + | 2023-02-02 00:00 | LISINOPRIL | [facility] | + + + + | 2023-02-11 00:00 | LISINOPRIL | [facility] | + + + + | 2023-02-23 00:00 | LISINOPRIL | [facility] | + + + + | 2023-03-05 00:00 | LISINOPRIL | [facility] | + + + + | 2023-03-12 00:00 | LISINOPRIL | [facility] | + + + + | 2022-03-22 00:00 | lisinopril 10 MG Oral | [facility] | | | Tablet | | + + + + | 2022-03-22 00:00 | METRONIDAZOLE | [facility] | + + + + | 2022-03-22 00:00 | metronidazole 250 MG Oral | [facility] | | | Tablet | | + + + + | 2022-06-22 00:00 | FENOFIBRATE | [facility] | + + + + | 2022-07-03 00:00 | FENOFIBRATE | [facility] | + + + + | 2022-07-08 00:00 | FENOFIBRATE | [facility] | + + + + | 2022-07-29 00:00 | FENOFIBRATE | [facility] | + + + + | 2022-08-03 00:00 | FENOFIBRATE | [facility] | + + + + | 2022-08-05 00:00 | FENOFIBRATE | [facility] | + + + + | 2022-08-17 00:00 | FENOFIBRATE | [facility] | + + + + | 2022-09-14 00:00 | FENOFIBRATE | [facility] | + + + + | 2022-09-23 00:00 | FENOFIBRATE | [facility] | + + + + | 2022-10-08 00:00 | FENOFIBRATE | [facility] | + + + + | 2022-10-11 00:00 | FENOFIBRATE | [facility] | + + + + | 2022-10-30 00:00 | FENOFIBRATE | [facility] | + + + + | 2022-11-24 00:00 | FENOFIBRATE | [facility] | + + + + | 2022-12-10 00:00 | FENOFIBRATE | [facility] | + + + + | 2023-01-03 00:00 | FENOFIBRATE | [facility] | + + + + | 2023-01-05 00:00 | FENOFIBRATE | [facility] | + + + + | 2023-01-21 00:00 | FENOFIBRATE | [facility] | + + + + | 2023-01-27 00:00 | FENOFIBRATE | [facility] | + + + + | 2023-02-02 00:00 | FENOFIBRATE | [facility] | + + + + | 2023-02-11 00:00 | FENOFIBRATE | [facility] | + + + + | 2023-02-23 00:00 | FENOFIBRATE | [facility] | + + + + | 2023-03-05 00:00 | FENOFIBRATE | [facility] | + + + + | 2023-03-12 00:00 | FENOFIBRATE | [facility] | + + + + | 2022-03-23 00:00 | Fenofibrate | [facility] | | | Nanocrystallized | | + + + + | 2022-03-25 00:00 | Fenofibrate | [facility] | | | Nanocrystallized | | + + + + | 2022-03-27 00:00 | Fenofibrate | [facility] | | | Nanocrystallized | | + + + + | 2022-03-28 00:00 | Fenofibrate | [facility] | | | Nanocrystallized | | + + + + | 2022-06-18 00:00 | Fenofibrate | [facility] | | | Nanocrystallized | | + + + + | 2022-06-22 00:00 | Fenofibrate | [facility] | | | Nanocrystallized | | + + + + | 2022-07-03 00:00 | Fenofibrate | [facility] | | | Nanocrystallized | | + + + + | 2022-07-08 00:00 | Fenofibrate | [facility] | | | Nanocrystallized | | + + + + | 2022-07-29 00:00 | Fenofibrate | [facility] | | | Nanocrystallized | | + + + + | 2022-08-03 00:00 | Fenofibrate | [facility] | | | Nanocrystallized | | + + + + | 2022-08-05 00:00 | Fenofibrate | [facility] | | | Nanocrystallized | | + + + + | 2022-08-17 00:00 | Fenofibrate | [facility] | | | Nanocrystallized | | + + + + | 2022-09-14 00:00 | Fenofibrate | [facility] | | | Nanocrystallized | | + + + + | 2022-09-23 00:00 | Fenofibrate | [facility] | | | Nanocrystallized | | + + + + | 2022-10-08 00:00 | Fenofibrate | [facility] | | | Nanocrystallized | | + + + + | 2022-10-11 00:00 | Fenofibrate | [facility] | | | Nanocrystallized | | + + + + | 2022-10-30 00:00 | Fenofibrate | [facility] | | | Nanocrystallized | | + + + + | 2022-11-24 00:00 | Fenofibrate | [facility] | | | Nanocrystallized | | + + + + | 2022-12-10 00:00 | Fenofibrate | [facility] | | | Nanocrystallized | | + + + + | 2023-01-03 00:00 | Fenofibrate | [facility] | | | Nanocrystallized | | + + + + | 2023-01-05 00:00 | Fenofibrate | [facility] | | | Nanocrystallized | | + + + + | 2023-01-21 00:00 | Fenofibrate | [facility] | | | Nanocrystallized | | + + + + | 2023-01-27 00:00 | Fenofibrate | [facility] | | | Nanocrystallized | | + + + + | 2023-02-02 00:00 | Fenofibrate | [facility] | | | Nanocrystallized | | + + + + | 2023-02-11 00:00 | Fenofibrate | [facility] | | | Nanocrystallized | | + + + + | 2023-02-23 00:00 | Fenofibrate | [facility] | | | Nanocrystallized | | + + + + | 2023-03-05 00:00 | Fenofibrate | [facility] | | | Nanocrystallized | | + + + + | 2023-03-12 00:00 | Fenofibrate | [facility] | | | Nanocrystallized | | + + + + | 2022-03-22 00:00 | fenofibrate 160 MG Oral | [facility] | | | Tablet | | + + + + | 2016-02-03 00:00 | CIPROFLOXACIN HCL/DEXAMETH | [facility] | | | | | + + + + | 2016-02-03 00:00 | ciprofloxacin 3 MG/ML / | [facility] | | | dexamethasone 1 MG/ML Otic | | | | Suspensio | | + + + + | 2022-03-18 00:00 | FENOFIBRATE | [facility] | | | NANOCRYSTALLIZED | | + + + + | 2022-03-18 00:00 | fenofibrate 48 MG Oral | [facility] | | | Tablet | | + + + + | 2022-09-23 00:00 | NITROFURANTOIN MONOHYD | [facility] | | | MACROCR | | + + + + | 2022-03-22 00:00 | 3 ML insulin glargine 100 | [facility] | | | UNT/ML Pen Injector | | | | [Lantus] | | + + + + | 2022-03-23 00:00 | INSULIN | [facility] | | | HUM. VIVIANRECAPOORVALOG | | + + + + | 2022-03-25 00:00 | INSULIN | [facility] | | | GLAALESSIAHUMOrlandoRECOrlandoANLOG | | + + + + | 2022-03-27 00:00 | INSULIN | [facility] | | | GLARGINE,HUM.REC.ANLOG | | + + + + | 2022-03-28 00:00 | INSULIN | [facility] | | | GLARGINE,HUM.REC.ANLOG | | + + + + | 2022-06-18 00:00 | INSULIN | [facility] | | | GLARGINE,HUM.REC.ANLOG | | + + + + | 2022-06-22 00:00 | INSULIN | [facility] | | | GLARGINE,HUM.REC.ANLOG | | + + + + | 2022-07-03 00:00 | INSULIN | [facility] | | | GLARGINE,HUM.REC.ANLOG | | + + + + | 2022-07-08 00:00 | INSULIN | [facility] | | | GLAFARRUKHE,HUM.REC.ANLOG | | + + + + | 2022-07-29 00:00 | INSULIN | [facility] | | | GLAFARRUKHE,HUM.REC.ANLOG | | + + + + | 2022-08-03 00:00 | INSULIN | [facility] | | | GLARDAWOODE,HUM.REC.ANLOG | | + + + + | 2022-08-05 00:00 | INSULIN | [facility] | | | GLARGINE,HUM.REC.ANLOG | | + + + + | 2022-08-17 00:00 | INSULIN | [facility] | | | GLAALESSIADR. [facility]landoREC[facility]landoANLOG | | + + + + | 2022-09-14 00:00 | INSULIN | [facility] | | | HUM. VIVIANRECOrlandoANLOG | | + + + + | 2022-09-23 00:00 | INSULIN | [facility] | | | HUM. VIVIANRECOrlandoANLOG | | + + + + | 2022-10-08 00:00 | INSULIN | [facility] | | | HUM. VIVIANRECOrlandoANLOG | | + + + + | 2022-10-11 00:00 | INSULIN | [facility] | | | GLARGINE,HUM.REC.ANLOG | | + + + + | 2022-10-30 00:00 | INSULIN | [facility] | | | GLARGINE,HUM.REC.ANLOG | | + + + + | 2022-11-24 00:00 | INSULIN | [facility] | | | GLARGINE,HUM.REC.ANLOG | | + + + + | 2022-12-10 00:00 | INSULIN | [facility] | | | GLARGINE,HUM.REC.ANLOG | | + + + + | 2023-01-03 00:00 | INSULIN | [facility] | | | GLARGINE,HUM.REC.ANLOG | | + + + + | 2023-01-05 00:00 | INSULIN | [facility] | | | GLAFARRUKHEHUM.[email or web address] | | + + + + | 2023-01-21 00:00 | INSULIN | [facility] | | | GLAALESSIA,HUM.REC.ANLOG | | + + + + | 2023-01-27 00:00 | INSULIN | [facility] | | | GLAFARURKHEHUM.REC.ANLOG | | + + + + | 2023-02-02 00:00 | INSULIN | [facility] | | | GLARGINE,HUM.REC.ANLOG | | + + + + | 2023-02-11 00:00 | INSULIN | [facility] | | | [facility] | | + + + + | 2023-02-23 00:00 | INSULIN | [facility] | | | [facility]LOG | | + + + + | 2023-03-05 00:00 | INSULIN | [facility] | | | [facility]REC[facility]LOG | | + + + + | 2023-03-12 00:00 | INSULIN | [facility] | | | VIVIANHUMOrlandoRECOr[place]ANLOG | | + + + + | 2022-03-22 00:00 | 3 ML insulin detemir 100 | [facility] | | | UNT/ML Pen Injector | | | | [Levemir] | | + + + + | 2022-03-23 00:00 | INSULIN DETEMIR | [facility] | + + + + | 2022-03-25 00:00 | INSULIN DETEMIR | [facility] | + + + + | 2022-03-27 00:00 | INSULIN DETEMIR | [facility] | + + + + | 2022-03-28 00:00 | INSULIN DETEMIR | [facility] | + + + + | 2022-06-18 00:00 | INSULIN DETEMIR | [facility] | + + + + | 2022-06-22 00:00 | INSULIN DETEMIR | [facility] | + + + + | 2022-07-03 00:00 | INSULIN DETEMIR | [facility] | + + + + | 2022-07-08 00:00 | INSULIN DETEMIR | [facility] | + + + + | 2022-07-29 00:00 | INSULIN DETEMIR | [facility] | + + + + | 2022-08-03 00:00 | INSULIN DETEMIR | [facility] | + + + + | 2022-08-05 00:00 | INSULIN DETEMIR | [facility] | + + + + | 2022-08-17 00:00 | INSULIN DETEMIR | [facility] | + + + + | 2022-09-14 00:00 | INSULIN DETEMIR | [facility] | + + + + | 2022-09-23 00:00 | INSULIN DETEMIR | [facility] | + + + + | 2022-10-08 00:00 | INSULIN DETEMIR | [facility] | + + + + | 2022-10-11 00:00 | INSULIN DETEMIR | [facility] | + + + + | 2022-10-30 00:00 | INSULIN DETEMIR | [facility] | + + + + | 2022-11-24 00:00 | INSULIN DETEMIR | [facility] | + + + + | 2022-12-10 00:00 | INSULIN DETEMIR | [facility] | + + + + | 2023-01-03 00:00 | INSULIN DETEMIR | [facility] | + + + + | 2023-01-05 00:00 | INSULIN DETEMIR | [facility] | + + + + | 2023-01-21 00:00 | INSULIN DETEMIR | [facility] | + + + + | 2023-01-27 00:00 | INSULIN DETEMIR | [facility] | + + + + | 2023-02-02 00:00 | INSULIN DETEMIR | [facility] | + + + + | 2023-02-11 00:00 | INSULIN DETEMIR | [facility] | + + + + | 2023-02-23 00:00 | INSULIN DETEMIR | [facility] | + + + + | 2023-03-05 00:00 | INSULIN DETEMIR | [facility] | + + + + | 2023-03-12 00:00 | INSULIN DETEMIR | [facility] | + + + + | 2021-01-22 00:00 | HYDROCODONE | [facility] | | | BIT/ACETAMINOPHEN | | + + + + | 2022-12-10 00:00 | HYDROCODONE | [facility] | | | BIT/ACETAMINOPHEN | | + + + + | 2021-01-22 00:00 | acetaminophen 325 MG / | [facility] | | | hydrocodone bitartrate 5 MG | | | | Oral Tabl | | + + + + | 2022-03-23 00:00 | ROSUVASTATIN CALCIUM | [facility] | + + + + | 2022-03-25 00:00 | ROSUVASTATIN CALCIUM | [facility] | + + + + | 2022-03-27 00:00 | ROSUVASTATIN CALCIUM | [facility] | + + + + | 2022-03-28 00:00 | ROSUVASTATIN CALCIUM | [facility] | + + + + | 2022-06-18 00:00 | ROSUVASTATIN CALCIUM | [facility] | + + + + | 2022-06-22 00:00 | ROSUVASTATIN CALCIUM | [facility] | + + + + | 2022-07-03 00:00 | ROSUVASTATIN CALCIUM | [facility] | + + + + | 2022-07-08 00:00 | ROSUVASTATIN CALCIUM | [facility] | + + + + | 2022-07-29 00:00 | ROSUVASTATIN CALCIUM | [facility] | + + + + | 2022-08-03 00:00 | ROSUVASTATIN CALCIUM | [facility] | + + + + | 2022-08-05 00:00 | ROSUVASTATIN CALCIUM | [facility] | + + + + | 2022-08-17 00:00 | ROSUVASTATIN CALCIUM | [facility] | + + + + | 2022-09-14 00:00 | ROSUVASTATIN CALCIUM | [facility] | + + + + | 2022-09-23 00:00 | ROSUVASTATIN CALCIUM | [facility] | + + + + | 2022-10-08 00:00 | ROSUVASTATIN CALCIUM | [facility] | + + + + | 2022-10-11 00:00 | ROSUVASTATIN CALCIUM | [facility] | + + + + | 2022-10-30 00:00 | ROSUVASTATIN CALCIUM | [facility] | + + + + | 2022-11-24 00:00 | ROSUVASTATIN CALCIUM | [facility] | + + + + | 2022-12-10 00:00 | ROSUVASTATIN CALCIUM | [facility] | + + + + | 2023-01-03 00:00 | ROSUVASTATIN CALCIUM | [facility] | + + + + | 2023-01-05 00:00 | ROSUVASTATIN CALCIUM | [facility] | + + + + | 2023-01-21 00:00 | ROSUVASTATIN CALCIUM | [facility] | + + + + | 2023-01-27 00:00 | ROSUVASTATIN CALCIUM | [facility] | + + + + | 2023-02-02 00:00 | ROSUVASTATIN CALCIUM | [facility] | + + + + | 2023-02-11 00:00 | ROSUVASTATIN CALCIUM | [facility] | + + + + | 2023-02-23 00:00 | ROSUVASTATIN CALCIUM | [facility] | + + + + | 2023-03-05 00:00 | ROSUVASTATIN CALCIUM | [facility] | + + + + | 2023-03-12 00:00 | ROSUVASTATIN CALCIUM | [facility] | + + + + | 2022-03-22 00:00 | rosuvastatin calcium 10 MG | [facility] | | | Oral Tablet [Crestor] | | + + + + | 2021-01-22 00:00 | TAMSULOSIN HCL | [facility] | + + + + | 2021-01-22 00:00 | tamsulosin hydrochloride | [facility] | | | 0.4 MG Oral Capsule | | | | [Flomax] | | + + + + | 2022-03-23 00:00 | LIPASE/PROTEASE/AMYLASE | [facility] | + + + + | 2022-03-25 00:00 | LIPASE/PROTEASE/AMYLASE | [facility] | + + + + | 2022-03-27 00:00 | LIPASE/PROTEASE/AMYLASE | [facility] | + + + + | 2022-03-28 00:00 | LIPASE/PROTEASE/AMYLASE | [facility] | + + + + | 2022-06-18 00:00 | LIPASE/PROTEASE/AMYLASE | [facility] | + + + + | 2022-06-22 00:00 | LIPASE/PROTEASE/AMYLASE | [facility] | + + + + | 2022-07-03 00:00 | LIPASE/PROTEASE/AMYLASE | [facility] | + + + + | 2022-07-08 00:00 | LIPASE/PROTEASE/AMYLASE | [facility] | + + + + | 2022-07-29 00:00 | LIPASE/PROTEASE/AMYLASE | [facility] | + + + + | 2022-08-03 00:00 | LIPASE/PROTEASE/AMYLASE | [facility] | + + + + | 2022-08-05 00:00 | LIPASE/PROTEASE/AMYLASE | [facility] | + + + + | 2022-08-17 00:00 | LIPASE/PROTEASE/AMYLASE | [facility] | + + + + | 2022-09-14 00:00 | LIPASE/PROTEASE/AMYLASE | [facility] | + + + + | 2022-09-23 00:00 | LIPASE/PROTEASE/AMYLASE | [facility] | + + + + | 2022-10-08 00:00 | LIPASE/PROTEASE/AMYLASE | [facility] | + + + + | 2022-10-11 00:00 | LIPASE/PROTEASE/AMYLASE | [facility] | + + + + | 2022-10-30 00:00 | LIPASE/PROTEASE/AMYLASE | [facility] | + + + + | 2022-11-24 00:00 | LIPASE/PROTEASE/AMYLASE | [facility] | + + + + | 2022-12-10 00:00 | LIPASE/PROTEASE/AMYLASE | [facility] | + + + + | 2023-01-03 00:00 | LIPASE/PROTEASE/AMYLASE | [facility] | + + + + | 2023-01-05 00:00 | LIPASE/PROTEASE/AMYLASE | [facility] | + + + + | 2023-01-21 00:00 | LIPASE/PROTEASE/AMYLASE | [facility] | + + + + | 2023-01-27 00:00 | LIPASE/PROTEASE/AMYLASE | [facility] | + + + + | 2023-02-02 00:00 | LIPASE/PROTEASE/AMYLASE | [facility] | + + + + | 2023-02-11 00:00 | LIPASE/PROTEASE/AMYLASE | [facility] | + + + + | 2023-02-23 00:00 | LIPASE/PROTEASE/AMYLASE | [facility] | + + + + | 2023-03-05 00:00 | LIPASE/PROTEASE/AMYLASE | [facility] | + + + + | 2023-03-12 00:00 | LIPASE/PROTEASE/AMYLASE | [facility] | + + + + | 2022-03-22 00:00 | amylase 96320 UNT / lipase | [facility] | | | 6000 UNT / protease [id number] | | | | UNT Del | | + + + + | 2023-01-05 00:00 | HYDROMORPHONE HCL | [facility] | + + + + | 2022-11-24 00:00 | DICYCLOMINE HCL | [facility] | + + + + | 2022-12-10 00:00 | DICYCLOMINE HCL | [facility] | + + + + | 2023-01-03 00:00 | DICYCLOMINE HCL | [facility] | + + + + | 2023-01-05 00:00 | DICYCLOMINE HCL | [facility] | + + + + | 2023-01-21 00:00 | DICYCLOMINE HCL | [facility] | + + + + | 2023-01-27 00:00 | DICYCLOMINE HCL | [facility] | + + + + | 2023-02-02 00:00 | DICYCLOMINE HCL | [facility] | + + + + | 2023-02-11 00:00 | DICYCLOMINE HCL | [facility] | + + + + | 2023-02-23 00:00 | DICYCLOMINE HCL | [facility] | + + + + | 2023-03-05 00:00 | DICYCLOMINE HCL | [facility] | + + + + | 2023-03-12 00:00 | DICYCLOMINE HCL | [facility] | + + + + Problems + + + + | date | description | facility | + + + + | 2014-05-31 00:00 | DKA (diabetic | [facility] | | | ketoacidoses) | | + + + + | 2014-05-31 00:00 | Sepsis | [facility] | + + + + | 2014-05-31 00:00 | Diabetes mellitus with | [facility] | | | ketoacidosis | | + + + + | 2014-05-31 00:00 | Dehydration | [facility] | + + + + | 2016-02-03 00:00 | Bilateral otitis externa | [facility] | + + + + | 2016-02-03 00:00 | Acute otitis media of both | [facility] | | | ears with perforation | | + + + + | 2018-01-03 00:00 | DKA (diabetic | [facility] | | | ketoacidoses) | | + + + + | 2018-01-03 00:00 | Diabetic ketoacidosis | [facility] | + + + + | 2018-01-03 00:00 | Hypertriglyceridemia | [facility] | + + + + | 2018-01-03 00:00 | Hypokalemia | [facility] | + + + + | 2018-01-03 00:00 | Pancreatitis | [facility] | + + + + | 2018-03-14 00:00 | DKA, type 1 | [facility] | + + + + | 2018-03-14 00:00 | Type 1 diabetes mellitus | [facility] | | | with ketoacidosis | | + + + + | 2019-03-18 00:00 | Chest wall pain | [facility] | + + + + | 2021-01-20 00:00 | Urinary retention | [facility] | + + + + | 2021-01-20 00:00 | Retention of urine | [facility] | + + + + | 2021-01-20 00:00 | Hyperglycemia | [facility] | + + + + | 2021-01-29 00:00 | Encounter for medical | [facility] | | | screening examination | | + + + + | 2021-01-29 00:00 | Encounter for Ellis | [facility] | | | catheter removal | | + + + + | 2021-02-02 00:00 | Abdominal pain | [facility] | + + + + | 2021-02-02 00:00 | Nausea and vomiting | [facility] | + + + + | 2021-03-01 00:00 | UTI (urinary tract | [facility] | | | infection) | | + + + + | 2021-03-01 00:00 | Urinary tract infection | [facility] | + + + + | 2021-07-21 00:00 | Acute chest wall pain | [facility] | + + + + | 2021-07-31 00:00 | Acute gastritis | [facility] | + + + + [...] + + | 2021-07-31 11:38 | OTHER SKILLED NURSING (CURRENT) | [facility] [...] + + + | 2021-09-09 20:54 | LEADER WRITER (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 OF | [facility] | | [...] 2021-09-27 00:00 | Allergic reaction caused | [facility] | | | by a drug | | + + + + | 2021-09-27 00:00 | Allergic reaction to drug | [facility] | + + + + [...] EFFECT OF | [facility] | | | VOFJZRVHM-RZCDFVK-JALDXY | | | | INHIBITORS, INIT | | + + + + | 2021-09-27 21:10 | SKILLED NURSING (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 OF | [facility] | | | INSULIN | | + + + + | 2021-09-27 21:10 | OTHER SKILLED NURSING (CURRENT) | [facility] [...] + + + | 2021-10-24 21:04 | LEADER WRITER (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 OF | [facility] | | [...] + + + | 2021-11-02 23:59 | LEADER WRITER (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 OF | [facility] | | [...] + | 2021-11-08 00:00 | Lightheaded | [facility] | + + + + | 2021-11-08 00:00 | Dyspnea | [facility] | + + + + | 2021-11-08 00:00 | Non-cardiac chest pain | [facility] | + + + + | 2021-11-08 00:00 | Lightheadedness | [facility] | + + + + [...] + + + | 2021-11-08 00:36 | LEADER WRITER (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 OF | [facility] | | | ORAL HYPOGLYCEMIC DRUGS | | + + + + | 2021-11-08 00:36 | OTHER SKILLED NURSING (CURRENT) | [facility] [...] + + + | 2021-11-26 22:29 | LEADER WRITER (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 OF | [facility] | | | INSULIN | | + + + + | 2021-11-26 22:29 | OTHER LEADER WRITER (CURRENT) | [facility] | | | DRUG [...] + | 2021-11-27 00:00 | Hypertension | [facility] | + + + + | 2021-11-27 00:00 | Insulin dependent diabetes | [facility] | | | mellitus | | + + + + | 2021-11-27 00:00 | Resolved abdominal pain | [facility] | + + + + [...] + + + | 2021-12-04 20:12 | SKILLED NURSING (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 OF | [...] 2021-12-05 00:00 | Hordeolum externum left | [facility] | | | lower eyelid | | + + + + | 2021-12-05 00:00 | Hordeolum externum of left | [facility] | | | lower eyelid | | + + + + | 2021-12-05 00:00 | Otitis externa | [facility] | + + + + [...] + + + | 2021-12-23 14:51 | SKILLED NURSING (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 OF | [facility] | | | INSULIN | | + + + + | 2021-12-23 14:51 | OTHER LEADER WRITER (CURRENT) | [facility] | | | DRUG [...] + + + | 2022-02-07 23:34 | SKILLED NURSING (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 OF | [facility] | | | INSULIN | | + + + + | 2022-02-07 23:34 | OTHER LEADER WRITER (CURRENT) | [facility] | | | DRUG [...] | [facility] | + + + + | 2022-02-13 [...] + + + | 2022-02-13 20:21 | LEADER WRITER (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 OF | [facility] | | [...] 2022-02-17 00:00 | Hypoglycemia due to | [facility] | | | insulin | | + + + + | 2022-02-17 00:00 | Hypoglycemic reaction to | [facility] | | | insulin | [...] + + + | 2022-02-17 03:45 | SKILLED NURSING (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 OF | [...] + + + | 2022-03-04 15:28 | LEADER WRITER (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 OF | [facility] | | | INSULIN | | + + + + | 2022-03-04 15:28 | OTHER LEADER WRITER (CURRENT) | [facility] | | | DRUG [...] 2022-03-07 00:00 | Upper abdominal pain | [facility] | + + + + | 2022-03-07 00:00 | Pain of upper abdomen | [facility] | + + + + [...] + + | 2022-03-07 00:39 | OTHER SKILLED NURSING (CURRENT) | [facility] [...] 2022-03-12 00:00 | Candidiasis of genitalia | [facility] | + + + + [...] + + + | 2022-03-12 02:19 | SKILLED NURSING (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 OF | [facility] | | | INSULIN | | + + + + | 2022-03-12 02:19 | OTHER LEADER WRITER (CURRENT) | [facility] | | | DRUG [...] 2022-03-16 00:00 | CRI (chronic renal | [facility] | | | insufficiency) | | + + + + | 2022-03-16 00:00 | Diabetes | [facility] | + + + + | 2022-03-16 00:00 | Diabetes mellitus | [facility] | + + + + | 2022-03-16 00:00 | Chronic renal impairment | [facility] | + + + + [...] + + | 2022-03-16 10:31 | OTHER LEADER WRITER (CURRENT) | [facility] | | | DRUG [...] 00:00 | Type 1 diabetes mellitus | [facility] | + + + + | 2022-03-19 00:00 | Colitis | [facility] | + + + + [...] + + | 2022-03-19 10:01 | OTHER LEADER WRITER (CURRENT) | [facility] | | | DRUG [...] | 2022-03-26 00:00 | Chest pain | [facility] | + + + + [...] + + + | 2022-03-26 06:58 | LEADER WRITER (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 OF | [facility] | | | INSULIN | | + + + + | 2022-03-26 06:58 | OTHER LEADER WRITER (CURRENT) | [facility] | | | DRUG [...] | 2022-04-21 00:00 | Epigastric pain | [facility] | + + + + [...] + + + | 2022-04-21 07:11 | LEADER WRITER (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 OF | [facility] | | | INSULIN | | + + + + | 2022-04-21 07:11 | OTHER LEADER WRITER (CURRENT) | [facility] | | | DRUG [...] 2022-05-23 00:00 | Atypical chest pain | [facility] | + + + + [...] + + + | 2022-05-26 18:10 | LEADER WRITER (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 OF | [facility] | | [...] + + + | 2022-06-18 11:42 | SKILLED NURSING (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 OF | [...] 2022-06-21 00:00 | Acute kidney injury | [facility] | + + + + [...] + | 2022-06-22 00:00 | Acidosis | [facility] | + + + + | 2022-07-03 00:00 | Right upper quadrant | [facility] | | | abdominal pain [...] + + | 2022-07-03 05:56 | OTHER SKILLED NURSING (CURRENT) | [facility] [...] | [facility] | | | seen | | + + + + | 2022-07-27 00:00 | Biliary colic | [facility] | + + + + [...] + + | 2022-07-27 00:25 | OTHER LEADER WRITER (CURRENT) | [facility] | | | DRUG [...] + + + | 2022-07-29 08:41 | LEADER WRITER (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 OF | [facility] | | | INSULIN | | + + + + | 2022-07-29 08:41 | OTHER LEADER WRITER (CURRENT) | [facility] | | | DRUG [...] + | 2022-08-03 00:00 | Hyperkalemia | [facility] | + + + + | 2022-08-03 00:00 | Encounter for medication | [facility] | | | refill | [...] + + | 2022-08-03 12:33 | OTHER SKILLED NURSING (CURRENT) | [facility] [...] + + + | 2022-09-22 21:55 | SKILLED NURSING (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 OF | [...] + | 2022-10-06 00:00 | Dysuria | [facility] | + + + + [...] + + + | 2022-10-10 22:40 | LEADER WRITER (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 OF | [facility] | | | INSULIN | | + + + + | 2022-10-10 22:40 | OTHER LEADER WRITER (CURRENT) | [facility] | | | DRUG [...] 00:00 | Type 1 diabetes mellitus | [facility] | | | with hyperglycemia | | + + + + | 2022-10-30 00:00 | Renal insufficiency | [facility] | + + + + [...] + + + | 2022-10-30 01:11 | SKILLED NURSING (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 OF | [...] 2022-11-24 00:00 | Chronic abdominal pain | [facility] | + + + + [...] + + + | 2022-11-24 20:55 | LEADER WRITER (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 OF | [facility] | | | INSULIN | | + + + + | 2022-11-24 20:55 | OTHER LEADER WRITER (CURRENT) | [facility] | | | DRUG [...] | 2022-12-07 00:00 | Acute pancreatitis | [facility] | + + + + [...] + + + | 2022-12-08 11:00 | LEADER WRITER (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 OF | [facility] | | | INSULIN | | + + + + | 2022-12-08 11:00 | OTHER LEADER WRITER (CURRENT) | [facility] | | | DRUG [...] | 2023-01-03 00:00 | Recurrent pancreatitis | [facility] | + + + + | 2023-01-03 00:00 | Abdominal bloating | [facility] | + + + + | 2023-01-03 00:00 | Left against medical | [facility] | | | advice | | + [...] + + + | 2023-01-26 21:48 | LEADER WRITER (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 OF | [facility] | | [...] + + + | 2023-02-02 00:06 | SKILLED NURSING (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 OF | [...] | 2023-02-11 00:00 | Positive blood | [facility] | | | test | | + + + + | 2023-02-11 00:00 | | [facility] | + + + + [...] + + + | 2023-02-11 00:33 | LEADER WRITER (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 OF | [facility] | | | INSULIN | | + + + + | 2023-02-11 00:33 | OTHER LEADER WRITER (CURRENT) | [facility] | | | DRUG [...] + + + | 2023-02-23 00:40 | LEADER WRITER (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 OF | [facility] | | | INSULIN | | + + + + | 2023-02-23 00:40 | OTHER LEADER WRITER (CURRENT) | [facility] | | | DRUG [...] + + + | 2023-03-04 21:44 | LEADER WRITER (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 OF | [facility] | | | INSULIN | | + + + + | 2023-03-04 21:44 | OTHER SKILLED NURSING (CURRENT) | [facility] [...] 2023-03-12 00:00 | Poorly controlled diabetes | [facility] | | | mellitus | [...] + + + | 2023-03-12 11:46 | SKILLED NURSING (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 OF | [...] 00:00 | EXCISION OF RIGHT LARGE | [facility] | | | INTESTINE, ENDO, DIAGN | | + + + + | 2022-03-20 00:00 | EXCISION OF LEFT LARGE | [facility] | | | INTESTINE, ENDO, DIAGN | | + + + + | 2022-03-20 00:00 | EXCISION OF CECUM, ENDO, | [facility] | | | DIAGN | | + + + + | 2022-03-20 00:00 | EXCISION OF SIGMOID COLON, | [facility] | | | ENDO, DIAGN | | + + + + | 2022-03-20 00:00 | EXCISION OF RECTUM, ENDO, | [facility] | | | DIAGN | | + + + + | 2022-03-20 00:00 | TRANSFUSE NONAUT RED BLOOD | [facility] | | | CELLS IN PERIPH VEIN, PERC | | | | | | + + + + | 2022-03-20 00:00 | Colonoscopy with biopsy of | [facility] | | | colon | [...] | [facility] | + + + + Vital Signs [...]
[~2023-03-20 13:04] MED LIST changes: +DOXYCYCLINE HY100 MG PO; +ONDANSETRON HCL4 MG PO; +VITAFOL-OB+DHA1 EACH PO
--- OUTSIDE RECORDS SUMMARY | 2023-03-20 13:06 | XMS ---
PreManage Notification: MONTSE GUTIERREZ Security Control Technician Events 3 event(s) in the past 18 months Most recent security events: Elopement at [facility] 01/03/2023 12:12 - Patient eloped before treatment completed. - Patient with suicidal and/or homicidal ideations eloped. - Patient eloped with IV in place. Details: Patient left AMA Elopement at [facility] 08/17/2022 17:10 - Patient eloped before treatment completed. - Patient with suicidal and/or homicidal ideations eloped. - Patient eloped with IV in place. Details: Patient LWBS. Elopement at [facility] 07/08/2022 22:03 - Patient eloped before treatment completed. - Patient with suicidal and/or homicidal ideations eloped. - Patient eloped with IV in place. Details: PATIENT LWBS CRITERIA MET - 6 ED Visits in 6 Months - [facility] - [facility] - 2 Visits in 30 Days - [facility] - Has Care Guidelines CARE PROVIDERS SAUL THORPE Physician 03/19/2019-Current PHONE: Unknown [facility] 01/22/2021-[facility] PHONE: [phone] Jef has no Care Guidelines for this patient. Care History Medical/Surgical 09/24/2021 [facility] Contacted Gerri RUDDassistant professor of mathematicsBdxteao-Neuhwn-puxdaolx of recent ED visits. They will follow up with the patient. 02/05/2021 [facility] - [facility] CALLED AND SPOKE WITH REGULATORY AFFAIRS MANAGER WALDEMAR- DISCUSSED RECENT ED VISITS- PRIMARY CARE PHYSICIAN REVIEWED PATIENT RECENT ED VISITS AND DID CONTACT PATIENT-THEY HAVE INSTRUCTED PATIENT TO CONTACT PREFITTER DR HAMMOND TO SCHEDULE AND EARLIER APT IF POSSIBLE. PATIENT HAS TO MAKE THE APT FOR FOLLOW UP THE CLINIC CAN\T\#39;T SCHEDULE THE APT FOR THE PATIENT. - PATIENT HAS AN APT 02/06/[address] CHRISTENSEN. 01/25/2021 [facility] VOIDING TRIAL SCHEDULED WITH DR CHRISTENSEN UROLOGIST 02/06/21 [place] VISIT COUNT (12 MO.) 6 [facility] 29 [facility]. TOTAL 35 NOTE: Visits indicate total known visits. ED/UCC VISIT TRACKING (12 MO.) 03/20/2023 13:05 [facility] [place] TYPE: Emergency COMPLAINT: - ABD PAIN, RECTAL BLEEDING, BACK PAIN 03/12/2023 11:46 [facility] [place] TYPE: Emergency COMPLAINT: - ABD PAIN, NAUSEA, HIGH BLOOD SUGAR DIAGNOSES: - Acute kidney failure, unspecified - Allergy status to narcotic agent - Allergy status to other antibiotic agents - Allergy status to sulfonamides - Chronic kidney disease, unspecified - Contact with and (suspected) exposure to COVID-19 - Dehydration - Hypertensive chronic kidney disease with stage 1 through stage 4 chronic kidney disease, or unspecified chronic kidney disease - terminal operations supervisor (current) use of insulin - Nausea - Type 1 diabetes mellitus with diabetic chronic kidney disease - Type 1 diabetes mellitus with hyperglycemia 03/04/2023 21:44 [facility] [place] TYPE: Emergency COMPLAINT: - ABD PAIN DIAGNOSES: - Allergy status to narcotic agent - Allergy status to other antibiotic agents - Allergy status to other drugs, medicaments and biological substances - Allergy status to sulfonamides - Essential (primary) hypertension - terminal operations supervisor (current) use of insulin - Other chronic pain - Other long term care social worker (current) drug therapy - Right lower quadrant pain - Type 2 diabetes mellitus with hyperglycemia 02/23/2023 00:40 [facility] [place] TYPE: Emergency COMPLAINT: - [...] disease, or unspecified chronic kidney disease - correction (current) use of insulin - Other detention (current) drug therapy - Type 1 diabetes mellitus with diabetic chronic kidney disease - Type 1 diabetes mellitus with hyperglycemia 02/11/2023 00:33 [facility] [place] TYPE: Emergency COMPLAINT: - ABD PAIN,NAUSEA DIAGNOSES: - Allergy status to narcotic agent - Allergy status to other antibiotic agents - Allergy status to other drugs, medicaments and biological substances - Allergy status to sulfonamides - Chronic kidney disease, unspecified - Hypertensive chronic kidney disease with stage 1 through stage 4 chronic kidney disease, or unspecified chronic kidney disease - Left upper quadrant pain - Less than 8 weeks gestation of - correction (current) use of insulin - Other long term care social worker (current) drug therapy - Other specified related conditions, first trimester - Pre-existing hypertensive chronic kidney disease complicating , first trimester - Type 2 diabetes mellitus with diabetic chronic kidney disease - Unspecified pre-existing diabetes mellitus in , first trimester 02/07/2023 00:38 [facility] [place] TYPE: Emergency DIAGNOSES: - Generalized abdominal pain - Type 2 diabetes mellitus with hyperglycemia - Abdominal Pain - flank pain 02/02/2023 00:06 [facility] TYPE: Emergency COMPLAINT: - ABD PAIN AND [...] disease, or unspecified chronic kidney disease - correction (current) use of insulin - Other chronic pain - Type 2 diabetes mellitus with diabetic chronic kidney disease - Unspecified abdominal pain 01/26/2023 21:48 [facility] [place] TYPE: Emergency COMPLAINT: - FLANK PAIN [...] or unspecified chronic kidney disease - terminal operations supervisor (current) use of insulin - Type 1 [...] - Dysuria - Essential (primary) hypertension - terminal operations supervisor (current) use of insulin - Type 2 diabetes mellitus without complications - Urinary tract infection, site not specified 01/03/2023 20:27 [facility] [place] TYPE: Emergency COMPLAINT: - ABDOMINAL PAIN [...] Essential (primary) hypertension - Hyperlipidemia, unspecified - terminal operations supervisor (current) use of insulin - Other chronic pain - Other detention (current) drug therapy - Type 2 diabetes mellitus with hyperglycemia - Unspecified abdominal pain 11/14/2022 19:46 [facility] [place] TYPE: Emergency DIAGNOSES: - Generalized abdominal pain - Type 2 diabetes mellitus with hyperglycemia - abd pain - Abdominal Pain 11/05/2022 21:56 [facility] [place] TYPE: Emergency DIAGNOSES: - Type 2 diabetes mellitus with hyperglycemia - Unspecified abdominal pain - Flank Pain - unable to urinate and back pain 10/30/2022 01:11 [facility] TYPE: Emergency COMPLAINT: - CHEST TIGHTNESS,LIGHT HEADED [...] or unspecified chronic kidney disease - terminal operations supervisor (current) use of insulin - Other detention (current) drug therapy - Precordial pain - [...] or unspecified chronic kidney disease - terminal operations supervisor (current) use of insulin - Other long term care social worker (current) drug therapy - Type 1 diabetes [...] or unspecified chronic kidney disease - terminal operations supervisor (current) use of insulin - Other detention [...] Essential (primary) hypertension - Hyperlipidemia, unspecified - terminal operations supervisor (current) use of insulin - Other long term care social worker (current) drug therapy - Type 2 diabetes [...] 2 diabetes mellitus with ketoacidosis without coma Plus 15 More Visits INPATIENT VISIT TRACKING [...] kidney disease - Hypokalemia - Hypokalemia - correction (current) use of insulin - correction (current) use of insulin - Other dental procedure status - Other dental procedure status - Other detention (current) drug therapy - Other detention (current) drug therapy - Personal history of [...] - Urinary tract infection, site not specified [email or web address]
[2023-03-20] MEDS ORDERED: ONDANSETRON ODT8 MG PO (19:06)
[2023-03-20 19:25] VITALS: BP 129/91
== END 2023-03-20 19:28 | disposition home or self-care (01) ==
LOC: ED 13:04
DX: K85.90 Acute pancreatitis without necrosis or infection, unspecified (principal); Z88.2 Allergy status to sulfonamides; Z88.8 Allergy status to other drugs, medicaments and biological substances; Z88.5 Allergy status to narcotic agent; Z88.0 Allergy status to penicillin; Z88.1 Allergy status to other antibiotic agents; Z79.4 Long term (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; Z79.899 Other long term (current) 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
CPT/HCPCS: 36415; 80053; 81001; 83690; 84703; 85025; 96361; 96374; 96375; 96376; 99284 25; A9270; J1170; J1200; J1815; J2405; J2765; J7030

== ENCOUNTER 2023-04-09 01:29 | Observation (INO) | payer OTHER ==
[~2023-04-09] VITALS: Ht 149.9 cm; Wt 44.0 kg
[2023-04-09] VITALS (8 sets, daily range): BP systolic 104–130; BP diastolic 78–96
--- OUTSIDE RECORDS SUMMARY | 2023-04-09 01:32 | XMS ---
PreManage Notification: MONTSE GUTIERREZ Security Kardex Clerk Events 3 event(s) in the past 18 months Most recent security events: Elopement at [facility] 01/03/2023 12:12 - Patient eloped before treatment completed. - Patient with suicidal and/or homicidal ideations eloped. - Patient eloped with IV in place. Details: Patient left AMA Elopement at [facility] 08/17/2022 17:10 - Patient eloped before treatment completed. - Patient with suicidal and/or homicidal ideations eloped. - Patient eloped with IV in place. Details: Patient LWBS. Elopement at [facility] 07/08/2022 22:03 - Patient eloped before treatment completed. - Patient with suicidal and/or homicidal ideations eloped. - Patient eloped with IV in place. Details: PATIENT LWBS CRITERIA MET - 6 ED Visits in [address] [facility] - 2 Visits in 30 Days CARE PROVIDERS SAUL THORPE 03/19/2019-[facility] PHONE: Unknown [facility] 01/22/2021-[facility] PHONE: [phone] Jef has no Care Guidelines for this patient. Care History Medical/Surgical 09/24/2021 [facility] Contacted Gerri RUDDcigar head puncherMiwxqsl-Irghve-sbxsqqyi of recent ED visits. They will follow up with the patient. 02/05/2021 [facility] - [facility] CALLED AND SPOKE WITH PRIMER CHARGER WALDEMAR- DISCUSSED RECENT ED VISITS- PRIMARY CARE PHYSICIAN REVIEWED PATIENT RECENT ED VISITS AND DID CONTACT PATIENT-THEY HAVE INSTRUCTED PATIENT TO CONTACT GLASS PROCESSING WORKER DR HAMMOND TO SCHEDULE AND EARLIER APT IF POSSIBLE. PATIENT HAS TO MAKE THE APT FOR FOLLOW UP THE CLINIC CAN\T\#39;T SCHEDULE THE APT FOR THE PATIENT. - PATIENT HAS AN APT 02/06/[address] CHRISTENSEN. 01/25/2021 [facility] VOIDING TRIAL SCHEDULED WITH DR CHRISTENSEN UROLOGIST 02/06/21 [facility] 30 [facility] TOTAL 36 NOTE: Visits indicate total known visits. ED/UCC VISIT TRACKING (12 MO.) 04/09/2023 01:30 [facility] [place] TYPE: Emergency COMPLAINT: - ABD PAIN 04/08/2023 00:[address] [facility] [facility] [place] TYPE: Emergency COMPLAINT: - ABD PAIN,BACK PAIN 03/20/2023 13:[address] [facility] [address] [place] TYPE: Emergency COMPLAINT: - ABD PAIN, RECTAL BLEEDING, BACK PAIN DIAGNOSES: - Acute pancreatitis without necrosis or infection, unspecified - Allergy status to narcotic agent - Allergy status to other antibiotic agents - Allergy status to other drugs, medicaments and biological substances - Allergy status to penicillin - Allergy status to sulfonamides - ferry terminal supervisor (current) use of insulin - Other senior living (current) drug therapy - Upper abdominal pain, unspecified 03/12/2023 11:46 [facility] [place] TYPE: Emergency [...] disease, or unspecified chronic kidney disease - [facility] (current) use of insulin - Nausea - [...] to sulfonamides - Essential (primary) hypertension - ferry terminal supervisor (current) use of insulin - Other chronic pain - Other buttermaker (current) drug therapy - Right lower quadrant [...] disease, or unspecified chronic kidney disease - [facility] (current) use of insulin - Other buttermaker (current) drug therapy - Type 1 diabetes mellitus with diabetic chronic kidney disease - Type 1 diabetes mellitus with hyperglycemia 02/11/2023 00:33 [facility] TYPE: Emergency COMPLAINT: - ABD PAIN,NAUSEA DIAGNOSES: [...] Less than 8 weeks gestation of - ferry terminal supervisor (current) use of insulin - Other senior living (current) drug therapy - Other specified related conditions, first trimester - Pre-existing hypertensive chronic kidney disease complicating , first trimester - Type 2 diabetes mellitus with diabetic chronic kidney disease - Unspecified pre-existing diabetes mellitus in , first trimester 02/07/2023 00:38 [place] [facility] TYPE: Emergency DIAGNOSES: - Generalized abdominal [...] disease, or unspecified chronic kidney disease - ferry terminal supervisor (current) use of insulin - Other [...] disease, or unspecified chronic kidney disease - ferry terminal supervisor (current) use of insulin - Type [...] - Dysuria - Essential (primary) hypertension - ferry terminal supervisor (current) use of insulin - Type [...] diabetic chronic kidney disease 12/07/2022 16:50 [facility] [place] TYPE: Emergency COMPLAINT: - ABDOMINAL PAIN 11/24/2022 20:55 [facility] [place] [facility] TYPE: Emergency COMPLAINT: - HIGH BLOOD SUGAR DIAGNOSES: - Allergy status to narcotic agent - Allergy status to other antibiotic agents - Allergy status to other drugs, medicaments and biological substances - Allergy status to penicillin - Allergy status to sulfonamides - Essential (primary) hypertension - Hyperlipidemia, unspecified - [facility] (current) use of insulin - Other chronic pain - Other senior living (current) drug therapy - Type 2 diabetes mellitus with hyperglycemia - Unspecified abdominal pain [facility] DIAGNOSES: - Generalized abdominal pain - Type 2 diabetes mellitus with hyperglycemia - abd pain - Abdominal Pain 11/05/2022 21:56 [facility] TYPE: Emergency DIAGNOSES: - Type 2 [...] disease, or unspecified chronic kidney disease - ferry terminal supervisor (current) use of insulin - Other buttermaker (current) drug therapy - Precordial pain - [...] disease, or unspecified chronic kidney disease - [facility] (current) use of insulin - Other senior [...] disease, or unspecified chronic kidney disease - ferry terminal supervisor (current) use of insulin - Other buttermaker (current) drug therapy - Type 2 diabetes mellitus with diabetic chronic kidney disease Plus 16 More Visits INPATIENT VISIT TRACKING [...] kidney disease - Hypokalemia - Hypokalemia - ferry terminal supervisor (current) use of insulin - ferry terminal supervisor (current) use of insulin - Other dental procedure status - Other dental procedure status - Other senior living (current) drug therapy - Other senior living (current) drug therapy - Personal history of [...] - Urinary tract infection, site not specified [email or web address]
--- NOTE | 2023-04-09 07:30 | NUR ---
REPORT RECIEVED FROM POWDER BLENDER AND POURER RN. PATIENT RESTING IN BED WITH SIGNIFICANT OTHER IN THE ROOM. PATIENT REMAINS ON AN INSULIN GTT. WILL CHECK BLOOD SUGAR AT 0800 AND IF LESS THAN 200'S WILL DC THE INSULIN GTT AND TRANSITION TO EVERY 2 HOUR CHECKS.
--- NOTE | 2023-04-09 07:49 | NUR ---
PT IS A NEW ADMIT TO ICU. PT IS A&O X 4 WITH A GCS OF 15. V/S ASSESSED, PIV PATENT, AND PT PLACED ON OUTSIDE PRODUCTION INSPECTOR. SAFETY CHECKS PERFORMED AND CALL LIGHT PLACED IN PTS HAND. LAST LABS OBTAINED AT 0235. MD CONSULTED AND NEW LABS ORDERED. PT REMAINS ON INSULINE GTT AT 1 U/H. PT HAS BEEN ST, NORMOTENSIVE AND A-FEBRILE. PT ABLE TO STAND AND WALK TO BATHROOM. PT WITH UNMEASURED VOID.
--- NOTE | 2023-04-09 08:15 | NUR ---
PATIENTS BLOOD SUGAR CHECKED AND INSULIN GTT STOPPED AT THIS TIME PER MD VERBAL ORDER. WILL TRANSITION PATIENT TO SUB-Q INSULIN.
--- NOTE | 2023-04-09 09:14 | NUR ---
PATIENT RESTING, REFUSED BREAKFAST AT THIS TIME. S/O IN ROOM CALL LIGHT NAD PERSONAL ITEMS IN EASY REACH
--- NOTE | 2023-04-09 09:30 | NUR ---
GI COCKTAIL AND BENEDRYL GIVEN THIS AM PER MD VERBAL ORDERS. PATIENT REMAINS ITCHY FROM PRN PAIN MEDICATIONS. PATIENT STATES THIS IS A NORMAL ISSUES FOR HER AND PAIN MEDICATIONS. PATIENTS BLOOD SUGAR WAS 110 AT 0800. GTT STOPPED AND TRANSITIONED PATIENT TO A 60 CARB DIET PER MD AND SUB Q INSULIN. AWAITING ORDERS FOR INSULIN SUB-Q. MD WANTS TO DO SIMILAR INSULIN TREATMENT PATIENT DOES AT HOME WITH SLIDING SCALE INSULIN AND CARB COUNTING INSULIN. WILL MONITOR PATIENTS BLOOD SUGAR EVERY 2 HOURS FOR 2 CHECKS AND IF PATIENTS BLOOD SUGAR REMAINS STABLE WILL TRANSITION TO EVERY 4HR CHECKS PER MD. PATIENT IS ALERT AND ORIENTED. PATIENT HAS HEARING AIDS AT BEDSIDE. PATIENT REPORTS 8/10 ACUTE/CHRONIC PAIN. PATIENT FALLS ASLEEP UPON STAFF ENTERING/EXITING THE ROOM. FOOD PROVIDED FOR PATIENT AND PATIENT DENIES WANTING TO EAT ANTHING AT THSI TIME. JUICE GIVEN AT 0800 PER PATIENTS REQUEST OF FEELING LOW ON HER BLOOD SUGAR. PATIENT BOWELS ACTIVE. BREATH SOUNDS CLEAR. NO OTHER NEEDS AT THIS TIME.
--- NOTE | 2023-04-09 10:26 | NUR ---
PT REQUESTING PAIN MEDS. GIVEN 0.5 MG OF IV DILAUDID ON IV PUMP
--- NOTE | 2023-04-09 11:30 | NUR ---
PATIENT RESTING IN BED. BLOOD SUGAR CHECKED. INSULIN GIVEN PER ORDERS. PATIENT RESTING IN BED. SIGNIFICANT OTHER AT THE BESIDE.
--- NOTE | 2023-04-09 12:34 | NUR ---
PATIENT IS SLEEPING.MANAGER RN WILL CHECK BACK LATER TO DO A DISCHARGE NEEDS ASSESSMENT.
--- NOTE | 2023-04-09 13:23 | NUR ---
PATIENTS BLOOD SUGAR 200'S. PATIENT WILL TRANSITION TO Q4 HRS AT THIS TIME. PATIENT STARTED ON LONG ACTING INSULIN PER MD VERBAL ORDERS. PATIENT EATING LUNCH AT THIS TIME. PATIENT WANTING TO GO HOME THIS EVENING. MD UPDATED.
--- NOTE | 2023-04-09 14:10 | NUR ---
PT REQUESTS BENADRYL FOR ITCHING.
--- NOTE | 2023-04-09 14:31 | NUR ---
SPOKE TO PATIENT ABOUT THE DISCHARGE PLAN. PATIENT PLANS TO GO HOME WITH HER . PATIENT HAS FRIENDS AND FAMILY THAT CAN HELP IF NEEDED.PATIENT CAN DO HER OWN ADLS. PATIENT DOES NOT USE ANY DME.PATIENT STATES SHE HAS DM SUPPLIES. PATIENT CAN AFFORD FOOD AND HOUSING. PATIENT DOES NOT HAVE STAIRS TO CLIMB TO GET INTO THE PATIENT'S HOUSE. PATIENT'S WILL TRANSPORT PATIENT NEEDED. PATIENT WILL FOLLOW UP AT [facility] INSTRUCTED ON DISCHARGE. PATIENT MAY GO HOME THIS PM.
--- NOTE | 2023-04-09 15:10 | NUR ---
PATIENT UP TO THE BATHROOM ON HER OWN AND TOELRATED WELL. PATIENT DENIES ANY NEEDS AT THIS TIME. KARLO WORKING ON APTS FOR DISCHARGE.
--- NOTE | 2023-04-09 16:15 | NUR ---
TORRES IN TO DISCUSS PLAN OF CARE WITH PATIENT. IV FLUIDS STOPPED WILL HAVE PATIENT GET UP AND WALK AROUND. AFTERNOON LABS BETTER. MD DISCUSSED PLAN OF DISCHARGE WITH PATIENT. FOLLOW-UP APPTS MADE.
--- NOTE | 2023-04-09 17:15 | NUR ---
PATIENT BLOOD SUGAR DOWN TO 79. PATIENT AWAKE AND ALERT. PATIENT DOES NOT FEEL LOW. PATIENT AWAITING DINNER. ORANGE JUICE GIVEN AT THIS TIME. WILL RECHECK BS.
--- NOTE | 2023-04-09 17:21 | NUR ---
DISCHARTGE VITALS CHARTED, PATIENT SITTING AT SIDE OF BED. S/O IN CHAIR.
--- NOTE | 2023-04-09 17:47 | NUR ---
BLOOD SUGAR RE-CHECK IS 112. PATIENT READY TO DC. NOTIFIED MD TORRES. WILL PLACE DC ORDERS.
--- NOTE | 2023-04-09 18:15 | NUR ---
REVIEWED PATIENT DISCHARGE INSRUCTIONS WITH PATIENT AND HER . PATIENT AGREEABLE TO PLAN OF CARE. NO CHANGES TO HER MEDICATIONS. PATIENT WILL FOLLOW-UP WITH PRIMARY CARE AND GLAZE CARRIER TOMORROW. ENCOURAGED PATIENT TO TALK WITH MDS ABOUT HER INTERMIT. ABD PAIN. NO OTHER NEEDS AT THIS TIME. PATIENT DRESSED. IV DCD AND AKIL MANAGER OF COMPENSATION IN TO TAKE PATIENT TO THE FRONT VIA WHEELCHAIR. ALL BELONGINGS SENT WITH PATIENT.
== END 2023-04-09 18:15 | disposition home or self-care (01) ==
LOC: ED 01:29 → CCU 01:31
PROVIDERS: ADMIT Internal Medicine; ATTEND Internal Medicine
DX: E10.65 Type 1 diabetes mellitus with hyperglycemia (principal); Z88.2 Allergy status to sulfonamides; Z88.1 Allergy status to other antibiotic agents; Z88.5 Allergy status to narcotic agent; R10.9 Unspecified abdominal pain
CPT/HCPCS: 36415; 80048; 80053; 81001; 82010; 83690; 83735; 85025; 96361; 96374; 96375; 96376; 99284-25; A9270; G0378; J1170; J1200; J1815; J2405; J7030; J7121

== ENCOUNTER 2023-04-22 00:27 | Observation (INO) | payer OTHER | END 2023-04-23 16:20 | disposition home or self-care (01) | LOC: ED 00:27 → MS 00:28 | PROVIDERS: ADMIT Internal Medicine | DX: E10.65 Type 1 diabetes mellitus with hyperglycemia (principal); K85.90 Acute pancreatitis without necrosis or infection, unspecified; E87.1 Hypo-osmolality and hyponatremia; I12.9 Hypertensive chronic kidney disease with stage 1 through stage 4 chronic kidney disease, or unspecified chronic kidney disease; E10.22 Type 1 diabetes mellitus with diabetic chronic kidney disease; N18.9 Chronic kidney disease, unspecified; Z88.2 Allergy status to sulfonamides; Z88.1 Allergy status to other antibiotic agents; Z88.0 Allergy status to penicillin; Z88.8 Allergy status to other drugs, medicaments and biological substances; Z79.4 Long term (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; Z79.899 Other long term (current) 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 ==

== ENCOUNTER 2023-05-05 21:18 | Emergency (ER) | payer OTHER ==
[~2023-05-05] VITALS: Ht 149.9 cm; Wt 40.6 kg
--- OUTSIDE RECORDS SUMMARY | ~2023-05-05 | XMS | Continuity of Care Document ---
Demographics + + + | Address | [address] | | | [place] [address] | + + + | Preferred Language | Unknown | + + + | Marital Status | | + + + | Hoahaoism Affiliation | Unknown | + + + | Race | or | + + + | Ethnic Group | Not or | + + + Author + + + | Author | [facility] | + + + | Organization | [facility] | + + + | Address | [address] [place] [address] | | | [place] [address] | + + + | Phone | | + + + Care Team Providers + + + + | Care Dredge Pipe Installer Name | Role | Phone | [...] + | 2023-03-20 00:00 | FAMOTIDINE | [facility] | + + + + | 2023-04-08 00:00 | FAMOTIDINE | [facility] | + + + + | 2023-04-09 00:00 | FAMOTIDINE | [facility] [...] | 2023-03-20 00:00 | ONDANSETRON HCL | [facility] | + + + + | 2023-04-08 00:00 | ONDANSETRON HCL | [facility] | + + + + | 2023-04-09 00:00 | ONDANSETRON HCL | [facility] | + + + + | 2018-10-19 00:00 | ondansetron 4 MG Oral | [facility] | | | Tablet [Zofran] | [...] + + + | 2022-03-22 00:00 | Cotton-Linyah 28 Day Pack | [facility] [...] + | 2022-10-11 00:00 | NORGESTIMATE-ETHINYL | [facility] [...] + | 2023-03-20 00:00 | NORGESTIMATE-ETHINYL | [facility] | | | ESTRADIOL | | + + + + | 2023-04-08 00:00 | NORGESTIMATE-ETHINYL | [facility] | | | ESTRADIOL | | + + + + | 2023-04-09 00:00 | NORGESTIMATE-ETHINYL | [facility] [...] | 2022-06-18 00:00 | ERGOCALCIFEROL (VITAMIN | [facility] | | | D2) | | [...] | 2023-03-20 00:00 | ERGOCALCIFEROL (VITAMIN | [facility] | | | D2) | | + + + + | 2023-04-08 00:00 | ERGOCALCIFEROL (VITAMIN | [facility] | | | D2) | | + + + + | 2023-04-09 00:00 | ERGOCALCIFEROL (VITAMIN | [facility] [...] | 2022-03-27 00:00 | INSULIN ASPART | [facility] | + + + + | [...] | 2023-03-20 00:00 | INSULIN ASPART | [facility] | + + + + | 2023-04-08 00:00 | INSULIN ASPART | [facility] | + + + + | 2023-04-09 00:00 | INSULIN ASPART | [facility] [...] + | 2023-03-20 00:00 | ESTRADIOL | [facility] | + + + + | 2023-04-08 00:00 | ESTRADIOL | [facility] | + + + + | 2023-04-09 00:00 | ESTRADIOL | [facility] [...] | 2023-03-20 00:00 | Metoprolol Succinate | [facility] | + + + + | 2023-04-08 00:00 | Metoprolol Succinate | [facility] | + + + + | 2023-04-09 00:00 | Metoprolol Succinate | [facility] [...] + | 2023-03-20 00:00 | ESTRADIOL | [facility] | + + + + | 2023-04-08 00:00 | ESTRADIOL | [facility] | + + + + | 2023-04-09 00:00 | ESTRADIOL | [facility] [...] | 2023-03-20 00:00 | ASCORBIC ACID | [facility] | + + + + | 2023-04-08 00:00 | ASCORBIC ACID | [facility] | + + + + | 2023-04-09 00:00 | ASCORBIC ACID | [facility] [...] | 2023-03-20 00:00 | AMLODIPINE BESYLATE | [facility] | + + + + | 2023-04-08 00:00 | AMLODIPINE BESYLATE | [facility] | + + + + | 2023-04-09 00:00 | AMLODIPINE BESYLATE | [facility] [...] + | 2023-03-20 00:00 | ONDANSETRON | [facility] | + + + + | 2023-03-20 00:00 | ONDANSETRON | [facility] | + + + + 2022-06-18 00:00 | LISINOPRIL | [facility] | + + + + | 2022-06-22 00:00 | LISINOPRIL | [facility] [...] + | 2023-03-20 00:00 | LISINOPRIL | [facility] | + + + + | 2023-04-08 00:00 | LISINOPRIL | [facility] | + + + + | 2023-04-09 00:00 | LISINOPRIL | [facility] [...] + | 2023-03-20 00:00 | FENOFIBRATE | [facility] | + + + + | 2023-04-08 00:00 | FENOFIBRATE | [facility] | + + + + | 2023-04-09 00:00 | FENOFIBRATE | [facility] [...] + | 2023-03-20 00:00 | Fenofibrate | [facility] | | | Nanocrystallized | | + + + + | 2023-04-08 00:00 | Fenofibrate | [facility] | | | Nanocrystallized | | + + + + | 2023-04-09 00:00 | Fenofibrate | [facility] [...] | [facility] | | | GLARGINE,HUM.REC.CARLINLOG | | + + + + | 2022-03-25 00:00 | INSULIN | [facility] | | | [facility] | | + + + + | 2022-03-27 00:00 | INSULIN | [facility] | | | [facility] | | + + + [...] | [facility] | | | GLAAviGINE,HUM.REC.ANLOG | | + + + + | [...] | [facility] | | | [facility] | | + + + + | 2022-10-11 00:00 | INSULIN | [facility] | | | [facility] | | + + + + | 2022-10-30 00:00 | INSULIN | [facility] | | | [facility] | | + + + + | 2022-11-24 00:00 | INSULIN | [facility] | | | VIVIANHUM.RECOrlandoANLOG | | [...] | [facility] | | | GLAALESSIAHUM.REC.ANLOG | | + + + + | 2023-02-11 00:00 | INSULIN | [facility] | | | [facility] | | + + + + | 2023-02-23 00:00 | INSULIN | [facility] | | | GLAFARRUKHEHUM.REC.ANLOG | | + + + + | 2023-03-05 00:00 | INSULIN | [facility] | | | GLARDAWOODEHUM.REC.ANLOG | | + + + + | 2023-03-12 00:00 | INSULIN | [facility] | | | GLARGINE,[facility].REC[facility] | | + + + + | 2023-03-20 00:00 | INSULIN | [facility] | | | GLARGINE,[facility].REC.AN[facility] | | + + + + | 2023-04-08 00:00 | INSULIN | [facility] | | | GLARGINE,[facility] | | + + + + | 2023-04-09 00:00 | INSULIN | [facility] [...] | 2023-03-20 00:00 | INSULIN DETEMIR | [facility] | + + + + | 2023-04-08 00:00 | INSULIN DETEMIR | [facility] | + + + + | 2023-04-09 00:00 | INSULIN DETEMIR | [facility] | + + + + 2022-12-10 00:00 | ROSUVASTATIN CALCIUM | [facility] [...] | 2023-03-20 00:00 | ROSUVASTATIN CALCIUM | [facility] | + + + + | 2023-04-08 00:00 | ROSUVASTATIN CALCIUM | [facility] | + + + + | 2023-04-09 00:00 | ROSUVASTATIN CALCIUM | [facility] [...] + | 2023-03-12 00:00 | LIPASE/PROTEASE/AMYLASE | [facility] | + + + + | 2023-03-20 00:00 | LIPASE/PROTEASE/AMYLASE | [facility] | + + + + | 2023-04-08 00:00 | LIPASE/PROTEASE/AMYLASE | [facility] | + + + + | 2023-04-09 00:00 | LIPASE/PROTEASE/AMYLASE | [facility] | + + + + | 2022-03-22 00:00 | amylase [id number] UNT / lipase | [facility] | | | 6000 UNT / protease [id number] | | | | UNT Del | [...] | 2023-03-20 00:00 | DICYCLOMINE HCL | [facility] | + + + + | 2023-04-08 00:00 | DICYCLOMINE HCL | [facility] | + + + + | 2023-04-09 00:00 | DICYCLOMINE HCL | [facility] [...] + + | 2021-07-31 11:38 | OTHER BOILER REPAIR SUPERVISOR (CURRENT) | [facility] | | | DRUG [...] + + + | 2021-09-09 20:54 | BOILER REPAIR SUPERVISOR (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 OF | [facility] | | | INSULIN | | + + + + | 2021-09-09 20:54 | OTHER RESIDENTIAL (CURRENT) | [facility] | | | DRUG [...] EFFECT OF | [facility] | | | [id number] | | | | INHIBITORS, INIT | | + + + + | 2021-09-27 21:10 | BOILER REPAIR SUPERVISOR (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 OF | [facility] | | | INSULIN | | + + + + | 2021-09-27 21:10 | OTHER BOILER REPAIR SUPERVISOR (CURRENT) | [facility] | | | DRUG [...] + + + | 2021-10-24 21:04 | RESIDENTIAL (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 OF | [facility] | | | INSULIN | | + + + + | 2021-10-24 21:04 | OTHER RESIDENTIAL (CURRENT) | [facility] | | | DRUG [...] + + + | 2021-11-02 23:59 | RESIDENTIAL (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 OF | [facility] | | | INSULIN | | + + + + | 2021-11-02 23:59 | OTHER RESIDENTIAL (CURRENT) | [facility] | | | DRUG [...] + + + | 2021-11-08 00:00 | Abelino | [facility] | + + [...] + | 2021-11-08 00:00 | Lightheadedness | [facility] | + + + + | 2021-11-08 [...] + + + | 2021-11-08 00:36 | BOILER REPAIR SUPERVISOR (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 OF | [facility] | | | ORAL HYPOGLYCEMIC DRUGS | | + + + + | 2021-11-08 00:36 | OTHER BOILER REPAIR SUPERVISOR (CURRENT) | [facility] | | | DRUG [...] + + + | 2021-11-26 22:29 | RESIDENTIAL (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 OF | [facility] | | | INSULIN | | + + + + | 2021-11-26 22:29 | OTHER RESIDENTIAL (CURRENT) | [facility] | | | DRUG [...] + + + | 2021-12-04 20:12 | BOILER REPAIR SUPERVISOR (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 OF | [facility] | | | INSULIN | | + + + + | 2021-12-04 20:12 | OTHER RESIDENTIAL (CURRENT) | [facility] | | | DRUG [...] 2021-12-05 00:00 | Hordeolum externum left | [facility] | | | lower eyelid | | [...] + + + | 2021-12-23 14:51 | BOILER REPAIR SUPERVISOR (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 OF | [facility] | | | INSULIN | | + + + + | 2021-12-23 14:51 | OTHER BOILER REPAIR SUPERVISOR (CURRENT) | [facility] | | | DRUG [...] + + + | 2022-02-07 23:34 | BOILER REPAIR SUPERVISOR (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 OF | [facility] | | | INSULIN | | + + + + | 2022-02-07 23:34 | OTHER BOILER REPAIR SUPERVISOR (CURRENT) | [facility] | | | DRUG [...] 00:00 | Contusion of left knee | [facility] | + + + + | 2022-02-08 00:00 | Contusion of left knee | [facility] | + + [...] + + + | 2022-02-13 20:21 | BOILER REPAIR SUPERVISOR (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 OF | [facility] | | | INSULIN | | + + + + | 2022-02-13 20:21 | OTHER RESIDENTIAL (CURRENT) | [facility] | | | DRUG [...] + + + | 2022-02-17 03:45 | BOILER REPAIR SUPERVISOR (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 OF | [facility] | | [...] + + + | 2022-03-04 15:28 | RESIDENTIAL (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 OF | [facility] | | | INSULIN | | + + + + | 2022-03-04 15:28 | OTHER BOILER REPAIR SUPERVISOR (CURRENT) | [facility] | | | DRUG [...] + + + | 2022-03-07 00:39 | RESIDENTIAL (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 OF | [facility] | | | INSULIN | | + + + + | 2022-03-07 00:39 | OTHER BOILER REPAIR SUPERVISOR (CURRENT) | [facility] | | | DRUG [...] + + + | 2022-03-12 02:19 | BOILER REPAIR SUPERVISOR (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 OF | [facility] | | | INSULIN | | + + + + | 2022-03-12 02:19 | OTHER RESIDENTIAL (CURRENT) | [facility] | | | DRUG [...] + + | 2022-03-16 10:31 | OTHER BOILER REPAIR SUPERVISOR (CURRENT) | [facility] | | | DRUG [...] + + + | 2022-03-19 10:01 | RESIDENTIAL (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 OF | [facility] | | | INSULIN | | + + + + | 2022-03-19 10:01 | RESIDENTIAL (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 OF | [facility] | | | OPIATE ANALGESIC | | + + + + | 2022-03-19 10:01 | OTHER BOILER REPAIR SUPERVISOR (CURRENT) | [facility] | | | DRUG [...] + + + | 2022-03-26 06:58 | BOILER REPAIR SUPERVISOR (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 OF | [facility] | | | INSULIN | | + + + + | 2022-03-26 06:58 | OTHER BOILER REPAIR SUPERVISOR (CURRENT) | [facility] | | | DRUG [...] + + + | 2022-04-21 07:11 | BOILER REPAIR SUPERVISOR (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 OF | [facility] | | | INSULIN | | + + + + | 2022-04-21 07:11 | OTHER BOILER REPAIR SUPERVISOR (CURRENT) | [facility] | | | DRUG [...] + + + | 2022-05-22 22:48 | RESIDENTIAL (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 OF | [facility] | | | INSULIN | | + + + + | 2022-05-22 22:48 | OTHER RESIDENTIAL (CURRENT) | [facility] | | | DRUG [...] + + + | 2022-05-26 18:10 | RESIDENTIAL (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 OF | [facility] | | [...] + + + | 2022-06-18 11:42 | BOILER REPAIR SUPERVISOR (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 OF | [facility] | | | INSULIN | | + + + + | 2022-06-18 11:42 | OTHER RESIDENTIAL (CURRENT) | [facility] | | | DRUG [...] + | 2022-06-22 00:00 | Acidosis | [facility] | + + + + | 2022-06-22 [...] + + + | 2022-07-03 05:56 | RESIDENTIAL (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 OF | [facility] | | | INSULIN | | + + + + | 2022-07-03 05:56 | OTHER BOILER REPAIR SUPERVISOR (CURRENT) | [facility] | | | DRUG [...] 00:00 | Patient left without being | [facility] | | | seen | | + + + + | 2022-07-08 00:00 | Patient left without being | [facility] | | | seen | | [...] + + | 2022-07-27 00:25 | OTHER BOILER REPAIR SUPERVISOR (CURRENT) | [facility] | | | DRUG [...] + + + | 2022-07-29 08:41 | BOILER REPAIR SUPERVISOR (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 OF | [facility] | | | INSULIN | | + + + + | 2022-07-29 08:41 | OTHER BOILER REPAIR SUPERVISOR (CURRENT) | [facility] | | | DRUG [...] + + | 2022-08-03 12:33 | OTHER BOILER REPAIR SUPERVISOR (CURRENT) | [facility] | | | DRUG [...] + + + | 2022-09-22 21:55 | BOILER REPAIR SUPERVISOR (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 OF | [facility] | | | INSULIN | | + + + + | 2022-09-22 21:55 | OTHER RESIDENTIAL (CURRENT) | [facility] | | | DRUG [...] + + + | 2022-10-06 04:49 | RESIDENTIAL (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 OF | [facility] | | | [facility]ULIN | | + + + + | 2022-10-06 04:49 | OTHER RESIDENTIAL (CURRENT) | [facility] | | | DRUG [...] + + + | 2022-10-10 22:40 | BOILER REPAIR SUPERVISOR (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 OF | [facility] | | | [facility]ULIN | | + + + + | 2022-10-10 22:40 | OTHER RESIDENTIAL (CURRENT) | [facility] | | | DRUG [...] + + + | 2022-10-30 01:11 | BOILER REPAIR SUPERVISOR (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 OF | [facility] | | | INSULIN | | + + + + | 2022-10-30 01:11 | OTHER RESIDENTIAL (CURRENT) | [facility] | | | DRUG [...] + + + | 2022-11-24 20:55 | BOILER REPAIR SUPERVISOR (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 OF | [facility] | | | INSULIN | | + + + + | 2022-11-24 20:55 | OTHER RESIDENTIAL (CURRENT) | [facility] | | | DRUG [...] + + + | 2022-12-08 11:00 | BOILER REPAIR SUPERVISOR (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 OF | [facility] | | | INSULIN | | + + + + | 2022-12-08 11:00 | OTHER BOILER REPAIR SUPERVISOR (CURRENT) | [facility] | | | DRUG [...] 2023-01-03 00:00 | Left against medical | [facility] | | | advice | | + + + + | 2023-01-03 00:00 | Left against medical | [facility] | | | advice | | [...] + + + | 2023-01-20 23:40 | RESIDENTIAL (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 OF | [facility] | | [...] + + + | 2023-01-26 21:48 | RESIDENTIAL (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 OF | [facility] | | [...] + + + | 2023-02-02 00:06 | BOILER REPAIR SUPERVISOR (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 OF | [facility] | | [...] + + + | 2023-02-11 00:33 | BOILER REPAIR SUPERVISOR (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 OF | [facility] | | | INSULIN | | + + + + | 2023-02-11 00:33 | OTHER RESIDENTIAL (CURRENT) | [facility] | | | DRUG [...] + + + | 2023-02-23 00:40 | BOILER REPAIR SUPERVISOR (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 OF | [facility] | | | [facility]ULIN | | + + + + | 2023-02-23 00:40 | OTHER BOILER REPAIR SUPERVISOR (CURRENT) | [facility] | | | DRUG [...] + + + | 2023-03-04 21:44 | RESIDENTIAL (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 OF | [facility] | | | [facility]ULIN | | + + + + | 2023-03-04 21:44 | OTHER BOILER REPAIR SUPERVISOR (CURRENT) | [facility] | | | DRUG [...] + + + | 2023-03-12 11:46 | BOILER REPAIR SUPERVISOR (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 OF | [facility] | | [...] + + + | 2023-03-20 13:05 | RESIDENTIAL (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 OF | [facility] | | | INSULIN | | + + + + | 2023-03-20 13:05 | OTHER RESIDENTIAL (CURRENT) | [facility] | | | DRUG [...] + + + | 2023-04-08 00:15 | RESIDENTIAL (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 OF | [facility] | | [...] + + + | 2023-04-22 00:28 | BOILER REPAIR SUPERVISOR (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 OF | [facility] | | | INSULIN | | + + + + | 2023-04-22 00:28 | OTHER BOILER REPAIR SUPERVISOR (CURRENT) | [facility] | | | DRUG [...] | | (unavailable | | [facility] | [phone] | | | | ) | | [...] | | (unavailable | | [facility] | [phone] | | | | ) | | [...] | | (unavailable | | [facility] | [phone] | | | | ) | | [...] | | (unavailable | | [facility] | [phone] | | | | ) | | [...] (missing) | | erythrocyte | 06:08 | [facility] | | | | | distribution | | migel | | | | | width | [...] | | | | | | | Iraqi | | | | | | + [...] NEGATIVE | (missing) | (missing) | | [id number] | 07:45 | [facility] | | | [...] (missing) | | (unavailable | 07:45 | [facility] | | | | | [...] (missing) | | (unavailable | 07:35 | [facility] | | | | | [...] (missing) | | (unavailable | 06:12 | [facility] | | | | | [...] 1028 | + + + + + +--------+ [...] 1035 | + + + + + +-------+ + + | | 2022-09-14 | [facility] | 358 | (missing) | (missing) | | (unavailable | 11:00:08 | [facility] | | | | + + + +-------+ + + + + | Result panel 1036 | + + + + + +--------+ [...] 1039 | + + + + + +-------+ [...] 1041 | + + + + + +-------+---------+ + | | 2022-09-14 | [facility] | 424 | mg/dL | (missing) | | (unavailable | 11:00:08 | [facility] | | | | + + + +-------+---------+ + + + | Result panel 1042 | + + + + + +------+---------+ + | | 2022-09-14 | [facility] | 30 | mg/dL | (missing) | | (unavailable | 11:00:08 | [facility] | | | | + + + +------+---------+ + + + | Result panel 1043 | + + + + + +--------+---------+ + | | 2022-09-14 | [facility] | 1.85 | mg/dL | (missing) | | (unavailable | 11:00:08 | [facility] | | | | + + + +--------+---------+ + + + | Result panel 1044 | + + + + + +------+ + + | | 2022-09-14 | [facility] | 39 | (missing) | (missing) | | (unavailable | 11:00:08 | [facility] | | | | + + + +------+ + + + + | Result panel 1045 | + + + + + +---------+ + + | | 2022-09-14 | [facility] | 16.21 | (missing) | (missing) | | (unavailable | 11:00:08 | [facility] | | | | + + + +---------+ + + + + | Result panel 1046 | + + + + + +-------+ [...] 1049 | + + + + + +------+ + + | | 2022-09-14 | [facility] | 22 | (missing) | (missing) | | (unavailable | 11:00:08 | [facility] | | | | + + + +------+ + + + + | Result panel 1050 | + + + + + +--------+ + + | | 2022-09-14 | [facility] | 15.0 | (missing) | (missing) | | (unavailable | 11::08 | [facility] | | | | + + + +--------+ + + + + | Result panel 1051 | + + + + + +-------+---------+ + | | 2022-09-14 | [facility] | 9.2 | mg/dL | (missing) | | (unavailable | 11:00:08 | [facility] | | | | + + + +-------+---------+ + + + | Result panel 1052 | + + + + + +-------+ [...] 1055 | + + + + + +--------+ + + | | 2022-09-14 | [facility] | 0.82 | (missing) | (missing) | | (unavailable | 11:00:08 | [facility] | | | | + + + +--------+ + + + + | Result panel 1056 | + + + + + +-------+ + + | | 2022-09-14 | [facility] | 0.3 | (missing) | (missing) | | (unavailable | 11:00:08 | [facility] | | | | + + + +-------+ + + + + | Result panel 1057 | + + + + + +------+ [...] 1059 | + + + + + +-------+ [...] (missing) | | (unavailable | 00:01:08 | [facility] | | | | | [...] (missing) | (missing) | | (unavailable | 00:: | [facility] | | | | | [...] 1132 | + + + + + +---------+ [...] 1136 | + + + + + +---------+ [...] 1138 | + + + + + +-------+ + + | | 2022-10-06 | [facility] | 6.0 | (missing) | (missing) | | (unavailable | 05:00:08 | [facility] | | | | + + + +-------+ + + + + | Result panel 1139 | + + + + + +-------+ [...] 1143 | + + + + + +-------+ + + | | 2022-10-06 | [facility] | 2-3 | (missing) | (missing) | | (unavailable | 05:00:08 | [facility] | | | | + + + +-------+ + + + + | Result panel 1144 | + + + + + +-------+ + + | | 2022-10-06 | [facility] | 0-1 | (missing) | (missing) | | (unavailable | 05:00:08 | [facility] | | | | + + + +-------+ + + + + | Result panel 1145 | + + + + + +-----+ + + | | 2022-10-06 | [facility] | 0 | (missing) | (missing) | | (unavailable | 05:00:08 | [facility] | | | | + + + +-----+ + + + + | Result panel 1146 | + + + + + +------+ [...] 1162 | + + + + + +-------+ + + | | 2022-10-06 | [facility] | 6.5 | (missing) | (missing) | | (unavailable | 05:40:08 | [facility] | | | | + + + +-------+ + + + + | Result panel 1163 | + + + + + +--------+ + + | | 2022-10-06 | [facility] | 3.50 | (missing) | (missing) | | (unavailable | 05:40:08 | [facility] | | | | + + + +--------+ + + + + | Result panel 1164 | + + + + + +--------+ [...] 1170 | + + + + + +-------+ [...] 1172 | + + + + + +--------+ + + | | 2022-10-06 | [facility] | 39.7 | (missing) | (missing) | | (unavailable | 05:40:08 | [facility] | | | | + + + +--------+ + + + + | Result panel 1173 | + + + + + +-------+ + + | | 2022-10-06 | [facility] | 6.6 | (missing) | (missing) | | (unavailable | 05:40:08 | [facility] | | | | + + + +-------+ + + + + | Result panel 1174 | + + + + + +-------+ [...] 1176 | + + + + + +---------+ + + | | 2022-10-06 | [facility] | 7.301 | (missing) | (missing) | | (unavailable | 05:40:08 | [facility] | | | | + + + +---------+ + + + + | Result panel 1177 | + + + + + +-------+---------+ + | | 2022-10-06 | [facility] | 474 | mg/dL | (missing) | | (unavailable | 05:40:08 | [facility] | | | | + + + +-------+---------+ + + + | Result panel 1178 | + + + + + +------+---------+ + | | 2022-10-06 | [facility] | 47 | mg/dL | (missing) | | (unavailable | 05:40:08 | [facility] | | | | + + + +------+---------+ + + + | Result panel 1179 | + + + + + +--------+---------+ + | | 2022-10-06 | [facility] | 1.96 | mg/dL | (missing) | | (unavailable | 05:40:08 | [facility] | | | | + + + +--------+---------+ + + + | Result panel 1180 | + + + + + +------+ + + | | 2022-10-06 | [facility] | 36 | (missing) | (missing) | | (unavailable | 05:40:08 | [facility] | | | | + + + +------+ + + + + | Result panel 1181 | + + + + + +---------+ + + | | 2022-10-06 | [facility] | 23.97 | (missing) | (missing) | | (unavailable | 05:40:08 | [facility] | | | | + + + +---------+ + + + + | Result panel 1182 | + + + + + +-------+ + + | | 2022-10-06 | [facility] | 130 | (missing) | (missing) | | (unavailable | 05:40:08 | [facility] | | | | + + + +-------+ + + + + | Result panel 1183 | + + + + + +-------+ + + | | 2022-10-06 | [facility] | 4.4 | (missing) | (missing) | | (unavailable | 05:40:08 | [facility] | | | | + + + +-------+ + + + + | Result panel 1184 | + + + + + +------+ + + | | 2022-10-06 | [facility] | 98 | (missing) | (missing) | | (unavailable | 05:40:08 | [facility] | | | | + + + +------+ + + + + | Result panel 1185 | + + + + + +------+ + + | | 2022-10-06 | [facility] | 21 | (missing) | (missing) | | (unavailable | 05:40:08 | [facility] | | | | + + + +------+ + + + + | Result panel 1186 | + + + + + +--------+ + + | | 2022-10-06 | [facility] | 15.4 | (missing) | (missing) | | (unavailable | 05:40:08 | [facility] | | | | + + + +--------+ + + + + | Result panel 1187 | + + + + + +-------+---------+ + | | 2022-10-06 | [facility] | 9.1 | mg/dL | (missing) | | (unavailable | 05:40:08 | [facility] | | | | + + + +-------+---------+ + + + | Result panel 1188 [...] 1189 | + + + + + +---------+ + + | | 2022-10-06 | [facility] | 7.301 | (missing) | (missing) | | (unavailable | 05:40:08 | [facility] | | | | + + + +---------+ + + + + | Result panel 1190 | + + + + + +---------+ [...] 1192 | + + + + + +------+ + + | | 2022-10-10 | [facility] | 97 | (missing) | (missing) | | (unavailable | 23:38:08 | [facility] | | | | + + + +------+ + + + + | Result panel 1193 | + + + + + +------+ [...] 1195 | + + + + + +-------+---------+ + | | 2022-10-10 | [facility] | 9.2 | mg/dL | (missing) | | (unavailable | 23:38:08 | [facility] | | | | + + + +-------+---------+ + + + | Result panel 1196 | + + + + + +-------+ + + | | 2022-10-10 | [facility] | 8.5 | (missing) | (missing) | | (unavailable | 23:38:08 | [facility] | | | | + + + +-------+ + + + + | Result panel 1197 | + + + + + +-------+ + + | | 2022-10-10 | [facility] | 3.8 | (missing) | (missing) | | (unavailable | 23:38:08 | [facility] | | | | + + + +-------+ + + + + | Result panel 1198 | + + + + + +-------+ + + | | 2022-10-10 | [facility] | 4.7 | (missing) | (missing) | | (unavailable | 23:38:08 | [facility] | | | | + + + +-------+ + + + + | Result panel 1199 | + + + + + +--------+ + + | | 2022-10-10 | [facility] | 0.81 | (missing) | (missing) | | (unavailable | 23:38:08 | [facility] | | | | + + + +--------+ + + + + | Result panel 1200 | + + + + + +-------+ + + | | 2022-10-10 | [facility] | 0.3 | (missing) | (missing) | | (unavailable | 23:38:08 | [facility] | | | | + + + +-------+ + + + + | Result panel 1201 | + + + + + +------+ + + | | 2022-10-10 | [facility] | 30 | (missing) | (missing) | | (unavailable | 23:38:08 | [facility] | | | | + + + +------+ + + + + | Result panel 1202 | + + + + + +------+ [...] 1206 | + + + + + +-------+ [...] 1208 | + + + + + +-------+ + + | | 2022-10-10 | [facility] | 6.0 | (missing) | (missing) | | (unavailable | 23:38:08 | [facility] | | | | + + + +-------+ + + + + | Result panel 1209 | + + + + + +--------+ + + | | 2022-10-10 | [facility] | 3.74 | (missing) | (missing) | | (unavailable | 23:38:08 | [facility] | | | | + + + +--------+ + + + + | Result panel 1210 | + + + + + +--------+ + + | | 2022-10-10 | [facility] | 10.7 | (missing) | (missing) | | (unavailable | 23:38:08 | [facility] | | | | + + + +--------+ + + + + | Result panel 1211 | + + + + + +--------+ + + | | 2022-10-10 | [facility] | 33.9 | (missing) | (missing) | | (unavailable | 23:38:08 | [facility] | | | | + + + +--------+ + + + + | Result panel 1212 | + + + + + +--------+ + + | | 2022-10-10 | [facility] | 90.6 | (missing) | (missing) | | (unavailable | 23:38:08 | [facility] | | | + + + +--------+ + + + + | Result panel 1213 | + + + + + +--------+ [...] 1215 | + + + + + +--------+ + + | | 2022-10-10 | [facility] | 14.7 | (missing) | (missing) | | (unavailable | 23:38:08 | [facility] | | | + + + +--------+ + + + + | Result panel 1216 | + + + + + +-------+ + + | | 2022-10-10 | [facility] | 361 | (missing) | (missing) | | (unavailable | 23:38:08 | [facility] | | | + + + +-------+ + + + + | Result panel 1217 | + + + + + +--------+ + + | | 2022-10-10 | [facility] | 51.9 | (missing) | (missing) | | (unavailable | 23:38:08 | [facility] | | | + + + +--------+ + + + + | Result panel 1218 | + + + + + +--------+ + + | | 2022-10-10 | [facility] | 37.8 | (missing) | (missing) | | (unavailable | 23:38:08 | [facility] | | | + + + +--------+ + + + + | Result panel 1219 | + + + + + +-------+ [...] 1221 | + + + + + +-------+ + + | | 2022-10-10 | [facility] | 0.8 | (missing) | (missing) | | (unavailable | 23:38:08 | [facility] | | | + + + +-------+ + + + + | Result panel 1222 | + + + + + +-------+---------+ + | | 2022-10-10 | [facility] | 476 | mg/dL | (missing) | | (unavailable | 23:38:08 | [facility] | | | + + + +-------+---------+ + + + | Result panel 1223 | + + + + + +------+---------+ + | | 2022-10-10 | [facility] | 33 | mg/dL | (missing) | | (unavailable | 23:38:08 | [facility] | | | + + + +------+---------+ + + + | Result panel 1224 | + + + + + +--------+---------+ + | | 2022-10-10 | [facility] | 1.95 | mg/dL | (missing) | | (unavailable | 23:38:08 | [facility] | | | + + + +--------+---------+ + + + | Result panel 1225 | + + + + + +------+ + + | | 2022-10-10 | [facility] | 36 | (missing) | (missing) | | (unavailable | 23:38:08 | [facility] | | | + + + +------+ + + + + | Result panel 1226 | + + + + + +---------+ + + | | 2022-10-10 | [facility] | 16.92 | (missing) | (missing) | | (unavailable | 23:38:08 | [facility] | | | + + + +---------+ + + + + | Result panel 1227 | + + + + + +-------+ [...] (missing) | (missing) | | (unavailable | 00:: | [facility] | | | | | [...] mg/dL | (missing) | | (unavailable | 01::07 [...] 1280 | + + + + + +-------+ + + | | 2022-10-30 | [facility] | 7.3 | (missing) | (missing) | | (unavailable | 01:26:08 | [facility] | | | | + + + +-------+ + + + + | Result panel 1281 | + + + + + +--------+ + + | | 2022-10-30 | [facility] | 3.67 | (missing) | (missing) | | (unavailable | 01:26:08 | [facility] | | | | + + + +--------+ + + + + | Result panel 1282 | + + + + + +--------+ + + | | 2022-10-30 | [facility] | 11.1 | (missing) | (missing) | | (unavailable | 01:26:08 | [facility] | | | + + + +--------+ + + + + | Result panel 1283 | + + + + + +--------+ [...] 1288 | + + + + + +-------+ [...] 1292 | + + + + + +-------+ + + | | 2022-10-30 | [facility] | 1.4 | (missing) | (missing) | | (unavailable | ::08 | [facility] | | | + + + +-------+ + + + + | Result panel 1293 | + + + + + +-------+ [...] 1295 | + + + + + +-------+---------+ + | | 2022-10-30 | [facility] | 2.3 | mg/dL | (missing) | | (unavailable | 01::08 | [facility] | | | | + + + +-------+---------+ + + + | Result panel 1296 [...] 1303 | + + + + + +---------+ + + | | 2022-10-30 | [facility] | CLEAR | (missing) | (missing) | | (unavailable | 02:00:08 | [facility] | | | | + + + +---------+ + + + + | Result panel 1304 | + + + + + +---------+ [...] 1309 | + + + + + +-------+ + + | | 2022-10-30 | [facility] | 7.0 | (missing) | (missing) | | (unavailable | ::08 | [facility] | | | | + + + +-------+ + + + + | Result panel 1310 | + + + + + +-------+ [...] 1314 | + + + + + +-------+ + + | | 2022-10-30 | [facility] | 2-3 | (missing) | (missing) | | (unavailable | 02:00:08 | [facility] | | | | + + + +-------+ + + + + | Result panel 1315 | + + + + + +-------+ [...] 1320 | + + + + + +------+ [...] (missing) | | (unavailable | 06:38:08 | [facility] | | | | | [...] (missing) | | (unavailable | 02:30:07 | [facility] | | | | | [...] (missing) | (missing) | | (unavailable | 14:: | [facility] | | | | | [...] (missing) | | (unavailable | 05:35:07 | [facility] | | | | | ) | [...] 1623 | + + + + + +-------+ [...] 1657 | + + + + + +--------+ [...] +------+---------+ + + + | Result panel 1672 | + + + + + +--------+---------+ [...] 168 | + + + + + +--------+ [...] 1687 | + + + + + +------+ + + | | 2023-01-21 | [facility] | 32 | (missing) | (missing) | | (unavailable | 00:35:07 | [facility] | | | | + + + +------+ + + + + | Result panel 1688 | + + + + + +-------+ [...] 1693 | + + + + + +--------+ [...] 1711 | + + + + + +-------+ [...] (missing) | | (unavailable | 01:00:07 | [facility] | | | | | [...] 1750 | + + + + + +--------+ [...] (missing) | (missing) | | (unavailable | 01:: | [facility] | | | | [...] (missing) | (missing) | | (unavailable | 01:: | [facility] | | | | | [...] 177 | + + + + + +---------+ [...] 1782 | + + + + + +---------+ [...] 1784 | + + + + + +-------+ + + | | 2023-02-02 | [facility] | 3.5 | (missing) | (missing) | | (unavailable | 01:00:07 | [facility] | | | | + + + +-------+ + + + + | Result panel 1785 | + + + + + +------+ [...] 179 | + + + + + +--------+ [...] 1794 | + + + + + +------+ + + | | 2023-02-02 | [facility] | 29 | (missing) | (missing) | | (unavailable | 01:00:07 | [facility] | | | | + + + +------+ + + + + | Result panel 1795 | + + + + + +------+ [...] 1816 | + + + + + + [...] (missing) | (missing) | | (unavailable | 01:07 | [facility] | | | | + + + +--------+ + + + + | Result panel 182 | + + + + + +-------+ + + | | 2023-02-11 | [facility] | 9.8 | (missing) | (missing) | | (unavailable | 01:07 | [facility] | | | | | [...] 183 | + + + + + +--------+ [...] +-------+---------+ + + + | Result panel 1841 | + + + + + +------+---------+ + | | 2023-02-11 | [facility] | 34 | mg/dL | (missing) | | (unavailable | 01:11:07 | [facility] | | | | + + + +------+---------+ + + + | Result panel 1842 | + + + + + +--------+---------+ [...] 185 | + + + + + +-------+---------+ [...] 1861 | + + + + + +-----+ [...] 1864 | + + + + + +---------+ [...] 186 | + + + + + +-------+ [...] +--------+---------+ + + + | Result panel 1882 | + + + + + +------+ [...] + + + + | Result panel 1895 | + + + + + +-------+ [...] + + + + | Result panel 1913 | + + + + + + [...] (missing) | (missing) | | (unavailable | 11::07 | [facility] | | | | | [...] +-------+---------+ + + + | Result panel 193 [...] + + + + | Result panel 1936 | + + + + + +------+ [...] + + + + | Result panel 1947 | + + + + + +-------+ [...] (missing) | | (unavailable | 22:11:07 | [facility] | | | | | [...] + + + + | Result panel 1958 | + + + + + + [...] (missing) | (missing) | | (unavailable | :23:07 | [facility] | | | | | [...] 1979 | + + + + + +-------+ + + | | 2023-03-12 | [facility] | 5.6 | (missing) | (missing) | | (unavailable | 12:47:07 | [facility] | | | | + + + +-------+ + + + + | Result panel 1980 | + + + + + +--------+ [...] 1987 | + + + + + +-------+ [...] + + + + | Result panel 1990 | + + + + + +-------+ + + | | 2023-03-12 | [facility] | 5.6 | (missing) | (missing) | | (unavailable | 12:47:07 | [facility] | | | | + + + +-------+ + + + + | Result panel 1990 | + + + + + +-------+ [...] 1995 | + + + + + +--------+ [...] 1997 | + + + + + +------+ [...] 1999 | + + + + + +-------+ [...] 2001 | + + + + + + [...] + + + + | Result panel 2008 | + + + + + + [...] (missing) | | (unavailable | 14:12:07 | [facility] | | | | | [...] +-------+---------+ + + + | Result panel 2044 | + + + + + +------+---------+ [...] 2055 | + + + + + +---------+ + + | | 2023-03-20 | [facility] | CLEAR | (missing) | (missing) | | (unavailable | 13:50:07 | [facility] | | | | + + + +---------+ + + + + | Result panel 2056 | + + + + + + [...] 2058 | + + + + + +---------+ [...] 2060 | + + + + + + + + + | | 2023-03-20 | [facility] | TRACE-I | (missing) | (missing) | | (unavailable | 13:50:07 | [facility] | | | | + + + + + + + + + | Result panel 2061 | + + + + + +-------+ [...] 2063 | + + + + + + [...] + + + + | Result panel 2065 | + + + + + + + + + | | 2023-03-20 | [facility] | NEGATIVE | (missing) | (missing) | | (unavailable | 13:50:07 | [facility] | | | | + + + + + + + + + | Result panel 2066 | + + + + + +-------+ [...] 2068 | + + + + + + [...] 2072 | + + + + + +------+ + + | | 2023-03-20 | [facility] | No | (missing) | (missing) | | (unavailable | 13:50:07 | [facility] | | | | + + + +------+ + + + + | Result panel 2073 | + + + + + + [...] + + + + | Result panel 2080 | + + + + + +--------+ [...] +-------+---------+ + + + | Result panel 209 | + + + + + +------+---------+ [...] + + + + | Result panel 2096 | + + + + + +-------+ [...] 210 | + + + + + +-------+---------+ [...] + + + + | Result panel 2106 | + + + + + +-------+ [...] + + + + | Result panel 2112 | + + + + + +-------+ + + | | 2023-03-20 | [facility] | 314 | (missing) | (missing) | | (unavailable | 16:55:07 | [facility] | | | + + + +-------+ + + + + | Result panel 2113 | + + + + + +--------+ [...] 211 | + + + + + +------+ [...] 2117 | + + + + + +---------+ + + | | 2023-04-08 | [facility] | CLEAR | (missing) | (missing) | | (unavailable | 01:17:07 | [facility] | | | | + + + +---------+ + + + + | Result panel 2118 | + + + + + + [...] 212 | + + + + + +---------+ [...] 2126 | + + + + + + + + + | | 2023-04-08 | [facility] | NORMAL | (missing) | (missing) | | (unavailable | 01::07 | [facility] | | | | + + + + + + + + + | Result panel 2126 | + + + + + + [...] 2130 | + + + + + +---------+ [...] 2132 | + + + + + + + + + | | 2023-04-08 | [facility] | NONE SEEN | (missing) | (missing) | | (unavailable | 01:17:07 | [facility] | | | | + + + + + + + + + | Result panel 2133 | + + + + + + + + + | | 2023-04-08 | [facility] | NEGATIVE | (missing) | (missing) | | (unavailable | 02:05:07 | [facility] | | | | + + + + + + + + + | Result panel 2134 | + + + + + +-------+---------+ + | | 2023-04-08 | [facility] | 388 | mg/dL | (missing) | | (unavailable | 02::07 | [facility] | | | | + + + +-------+---------+ + + + | Result panel 2135 | + + + + + +------+---------+ + | | 2023-04-08 | [facility] | 44 | mg/dL | (missing) | | (unavailable | 02:05:07 | [facility] | | | | + + + +------+---------+ + + + | Result panel 2136 | + + + + + +--------+---------+ + | | 2023-04-08 | [facility] | 2.11 | mg/dL | (missing) | | (unavailable | 02:05:07 | [facility] | | | + + + +--------+---------+ + + + | Result panel 2137 | + + + + + +------+ [...] + + + + | Result panel 2140 | + + + + + +-------+ + + | | 2023-04-08 | [facility] | 4.0 | (missing) | (missing) | | (unavailable | 02:05:07 | [facility] | | | + + + +-------+ + + + + | Result panel 2141 | + + + + + +------+ [...] (missing) | (missing) | | (unavailable | 02: | [facility] | | | | + + + +--------+ + + + + | Result panel 2144 | + + + + + +-------+---------+ + | | 2023-04-08 | [facility] | 8.8 | mg/dL | (missing) | | (unavailable | : | [facility] | | | | + + + +-------+---------+ + + + | Result panel 2145 | + + + + + +-------+---------+ + | | 2023-04-08 | [facility] | 2.1 | mg/dL | (missing) | | (unavailable | 02: | [facility] | | | | + + + +-------+---------+ + + + | Result panel 214 | + + + + + +-------+ + + | | 2023-04-08 | [facility] | 7.7 | (missing) | (missing) | | (unavailable | 02:: | [facility] | | | | [...] 2148 | + + + + + +-------+ + + | | 2023-04-08 | [facility] | 4.1 | (missing) | (missing) | | (unavailable | 02::07 | [facility] | | | | + + + +-------+ + + + + | Result panel 2149 | + + + + + +--------+ + + | | 2023-04-08 | [facility] | 0.88 | (missing) | (missing) | | (unavailable | 02:05:07 | [facility] | | | | + + + +--------+ + + + + | Result panel 2150 | + + + + + +-------+ + + | | 2023-04-08 | [facility] | 0.3 | (missing) | (missing) | | (unavailable | 02:05:07 | [facility] | | | | + + + +-------+ + + + + | Result panel 2151 | + + + + + +------+ [...] 2154 | + + + + + +-------+ [...] (missing) | (missing) | | (unavailable | 02:34: | [facility] | | | | + + + +-------+ + + + + | Result panel 216 | + + + + + +-------+ + + | | 2023-04-08 | [facility] | 1.1 | (missing) | (missing) | | (unavailable | 02:: | [facility] | | | | [...] (missing) | (missing) | | (unavailable | 02:: | [facility] | | | | [...] + + + + | Result panel 2173 | + + + + + +--------+ [...] 2199 | + + + + + +--------+ [...] + + + + | Result panel 2201 | + + + + + +--------+ [...] 2204 | + + + + + +-------+ [...] + + + + | Result panel 2205 | + + + + + +--------+ [...] + + + + | Result panel 2208 | + + + + + +-------+ + + | | 2023-04-09 | [facility] | 0.7 | (missing) | (missing) | | (unavailable | 06:44:07 | [facility] | | | | + + + +-------+ + + + + | Result panel 2210 | + + + + + +-------+---------+ + | | 2023-04-09 | [facility] | 1.8 | mg/dL | (missing) | | (unavailable | :44:07 | [facility] | | | | + + + +-------+---------+ + + + | Result panel 2211 | + + + + + +-------+ + + | | 2023-04-09 | [facility] | 7.2 | (missing) | (missing) | | (unavailable | :44:07 | [facility] | | | + + + +-------+ + + + + | Result panel 2212 | + + + + + +--------+ [...] 2214 | + + + + + +-------+---------+ + | | 2023-04-09 | [facility] | 260 | mg/dL | (missing) | | (unavailable | 14:10:07 | [facility] | | | | + + + +-------+---------+ + + + | Result panel 2215 | + + + + + +------+---------+ + | | 2023-04-09 | [facility] | 35 | mg/dL | (missing) | | (unavailable | 14:10:07 | [facility] | | | | + + + +------+---------+ + + + | Result panel 2216 | + + + + + +--------+---------+ + | | 2023-04-09 | [facility] | 2.34 | mg/dL | (missing) | | (unavailable | 14:10:07 [facility] | | | | + + + +--------+---------+ + + + | Result panel 2217 | + + + + + +------+ + + | | 2023-04-09 | [facility] | 29 | (missing) | (missing) | | (unavailable | 14:10:07 | [facility] | | | | + + + +------+ + + + + | Result panel 2218 | + + + + + +---------+ [...] 2221 | + + + + + +-------+ + + | | 2023-04-09 | [facility] | 101 | (missing) | (missing) | | (unavailable | 14:10:07 | [facility] | | | | + + + +-------+ + + + + | Result panel 2222 | + + + + + +------+ + + | | 2023-04-09 | [facility] | 21 | (missing) | (missing) | | (unavailable | 14:10:07 [facility] | | | | + + + +------+ + + + + | Result panel 2223 | + + + + + +--------+ + + | | 2023-04-09 | [facility] | 16.4 | (missing) | (missing) | | (unavailable | 14:10:07 [facility] | | | | + + + +--------+ + + + + | Result panel 2224 [...] + +------+ + + + + | Rh blood [...] | trans packed | | [facility] | [phone] | | | | RBC | | [...] 2022-03-22 00:00 | Never smoker | [facility] | + + + + Vital Signs [...] 97 | lb | + + + +---------+"
--- OUTSIDE RECORDS SUMMARY | ~2023-05-05 | XMS | Continuity of Care Document ---
Demographics + + + | Address | [address] | | | [place] [address] | + + + | Preferred Language | Unknown | + + + | Marital Status | | + + + | Episcopalian Affiliation | Unknown | + + + | Race | or | + + + | Ethnic Group | Not or | + + + Author + + + | Author | [facility] | + + + | Organization | [facility] | + + + | Address | [address] [place] [address] | | | [place] [address] | + + + | Phone | | + + + Care Team Providers + + + + | Care Production Dispatcher Name | Role | Phone | + [...] 2022-03-22 00:00 | No vaccine administered | [facility] | + + + + Medications + + + + | date | description | facility | + + + + | 2021-01-18 00:00 | FAMOTIDINE | [facility] | + + + + | 2021-01-18 00:00 | FAMOTIDINE | [facility] | + + + + | 2022-03-22 00:00 | FAMOTIDINE | [facility] | + + + + | 2022-03-23 00:00 | FAMOTIDINE | [facility] | + + + + | 2022-03-25 00:00 | FAMOTIDINE | [facility] | + + + + | 2022-03-27 00:00 | FAMOTIDINE | [facility] | + + + + | 2022-03-28 00:00 | FAMOTIDINE | [facility] | + + + + | 2022-05-23 00:00 | FAMOTIDINE | [facility] | + + + + | 2022-06-18 00:00 | FAMOTIDINE | [facility] | + + + + | 2022-06-22 00:00 | FAMOTIDINE | [facility] | + + + + | 2022-07-03 00:00 | FAMOTIDINE | [facility] | + + + + | 2022-07-08 00:00 | FAMOTIDINE | [facility] | + + + + | 2022-07-29 00:00 | FAMOTIDINE | [facility] | + + + + | 2022-08-03 00:00 | FAMOTIDINE | [facility] | + + + + | 2022-08-05 00:00 | FAMOTIDINE | [facility] | + + + + | 2022-08-17 00:00 | FAMOTIDINE | [facility] | + + + + | 2022-09-14 00:00 | FAMOTIDINE | [facility] | + + + + | 2022-09-23 00:00 | FAMOTIDINE | [facility] | + + + + | 2022-10-08 00:00 | FAMOTIDINE | [facility] | + + + + | 2022-10-11 00:00 | FAMOTIDINE | [facility] | + + + + | 2022-10-30 00:00 | FAMOTIDINE | [facility] | + + + + | 2022-11-24 00:00 | FAMOTIDINE | [facility] | + + + + | 2022-12-10 00:00 | FAMOTIDINE | [facility] | + + + + | 2023-01-03 00:00 | FAMOTIDINE | [facility] | + + + + | 2023-01-05 00:00 | FAMOTIDINE | [facility] | + + + + | 2023-01-21 00:00 | FAMOTIDINE | [facility] | + + + + | 2023-01-27 00:00 | FAMOTIDINE | [facility] | + + + + | 2023-02-02 00:00 | FAMOTIDINE | [facility] | + + + + | 2023-02-11 00:00 | FAMOTIDINE | [facility] | + + + + | 2023-02-23 00:00 | FAMOTIDINE | [facility] | + + + + | 2023-03-05 00:00 | FAMOTIDINE | [facility] | + + + + | 2023-03-12 00:00 | FAMOTIDINE | [facility] | + + + + | 2023-03-20 00:00 | FAMOTIDINE | [facility] | + + + + | 2023-04-08 00:00 | FAMOTIDINE | [facility] | + + + + | 2023-04-09 00:00 | FAMOTIDINE | [facility] | + + + + | 2021-01-18 00:00 | famotidine 20 MG Oral | [facility] | | | Tablet [Pepcid] | | + + + + | 2022-03-22 00:00 | famotidine 20 MG Oral | [facility] | | | Tablet [Pepcid] | | + + + + | 2022-03-07 00:00 | ONDANSETRON | [facility] | + + + + | 2022-07-03 00:00 | ONDANSETRON | [facility] | + + + + | 2022-09-23 00:00 | ONDANSETRON | [facility] | + + + + | 2022-10-06 00:00 | ONDANSETRON | [facility] | + + + + | 2022-03-07 00:00 | ondansetron 4 MG | [facility] | | | Disintegrating Oral Tablet | | + + + + | 2018-10-19 00:00 | ONDANSETRON HCL | [facility] | + + + + | 2018-10-19 00:00 | ONDANSETRON HCL | [facility] | + + + + | 2021-01-18 00:00 | ONDANSETRON HCL | [facility] | + + + + | 2021-01-18 00:00 | ONDANSETRON HCL | [facility] | + + + + | 2022-03-23 00:00 | ONDANSETRON HCL | [facility] | + + + + | 2022-03-25 00:00 | ONDANSETRON HCL | [facility] | + + + + | 2022-03-27 00:00 | ONDANSETRON HCL | [facility] | + + + + | 2022-03-28 00:00 | ONDANSETRON HCL | [facility] | + + + + | 2022-06-18 00:00 | ONDANSETRON HCL | [facility] | + + + + | 2022-06-22 00:00 | ONDANSETRON HCL | [facility] | + + + + | 2022-07-03 00:00 | ONDANSETRON HCL | [facility] | + + + + | 2022-07-08 00:00 | ONDANSETRON HCL | [facility] | + + + + | 2022-07-29 00:00 | ONDANSETRON HCL | [facility] | + + + + | 2022-08-03 00:00 | ONDANSETRON HCL | [facility] | + + + + | 2022-08-05 00:00 | ONDANSETRON HCL | [facility] | + + + + | 2022-08-17 00:00 | ONDANSETRON HCL | [facility] | + + + + | 2022-09-14 00:00 | ONDANSETRON HCL | [facility] | + + + + | 2022-09-23 00:00 | ONDANSETRON HCL | [facility] | + + + + | 2022-10-08 00:00 | ONDANSETRON HCL | [facility] | + + + + | 2022-10-11 00:00 | ONDANSETRON HCL | [facility] | + + + + | 2022-10-30 00:00 | ONDANSETRON HCL | [facility] | + + + + | 2022-11-24 00:00 | ONDANSETRON HCL | [facility] | + + + + | 2022-12-10 00:00 | ONDANSETRON HCL | [facility] | + + + + | 2023-01-03 00:00 | ONDANSETRON HCL | [facility] | + + + + | 2023-01-05 00:00 | ONDANSETRON HCL | [facility] | + + + + | 2023-01-21 00:00 | ONDANSETRON HCL | [facility] | + + + + | 2023-01-27 00:00 | ONDANSETRON HCL | [facility] | + + + + | 2023-02-02 00:00 | ONDANSETRON HCL | [facility] | + + + + | 2023-02-11 00:00 | ONDANSETRON HCL | [facility] | + + + + | 2023-02-23 00:00 | ONDANSETRON HCL | [facility] | + + + + | 2023-03-05 00:00 | ONDANSETRON HCL | [facility] | + + + + | 2023-03-12 00:00 | ONDANSETRON HCL | [facility] | + + + + | 2023-03-20 00:00 | ONDANSETRON HCL | [facility] | + + + + | 2023-04-08 00:00 | ONDANSETRON HCL | [facility] | + + + + | 2023-04-09 00:00 | ONDANSETRON HCL | [facility] | + + + + | 2018-10-19 00:00 | ondansetron 4 MG Oral | [facility] | | | Tablet [Zofran] | | + + + + | 2021-01-18 00:00 | ondansetron 4 MG Oral | [facility] | | | Tablet [Zofran] | | + + + + | 2022-03-22 00:00 | ondansetron 4 MG Oral | [facility] | | | Tablet [Zofran] | | + + + + | 2022-03-18 00:00 | OXYCODONE HCL | [facility] | + + + + | 2022-03-18 00:00 | oxycodone hydrochloride 5 | [facility] | | | MG Oral Tablet | | + + + + | 2022-07-03 00:00 | NAPROXEN | [facility] | + + + + | 2022-07-03 00:00 | NAPROXEN | [facility] | + + + + | 2021-03-01 00:00 | PHENAZOPYRIDINE HCL | [facility] | + + + + | 2021-03-01 00:00 | PHENAZOPYRIDINE HCL | [facility] | + + + + | 2021-07-14 00:00 | PHENAZOPYRIDINE HCL | [facility] | + + + + | 2021-07-14 00:00 | PHENAZOPYRIDINE HCL | [facility] | + + + + | 2021-03-01 00:00 | phenazopyridine | [facility] | | | hydrochloride 200 MG Oral | | | | Tablet [Pyridium] | | + + + + | 2021-07-14 00:00 | phenazopyridine | [facility] | | | hydrochloride 200 MG Oral | | | | Tablet [Pyridium] | | + + + + | 2022-03-22 00:00 | [place] [facility] Day [facility] | [facility] | + + + + | 2022-03-23 00:00 | NORGESTIMATE-ETHINYL | [facility] | | | ESTRADIOL | | + + + + | 2022-03-25 00:00 | NORGESTIMATE-ETHINYL | [facility] | | | ESTRADIOL | | + + + + | 2022-03-27 00:00 | NORGESTIMATE-ETHINYL | [facility] | | | ESTRADIOL | | + + + + | 2022-03-28 00:00 | NORGESTIMATE-ETHINYL | [facility] | | | ESTRADIOL | | + + + + | 2022-06-18 00:00 | NORGESTIMATE-ETHINYL | [facility] | | | ESTRADIOL | | + + + + | 2022-06-22 00:00 | NORGESTIMATE-ETHINYL | [facility] | | | ESTRADIOL | | + + + + | 2022-07-03 00:00 | NORGESTIMATE-ETHINYL | [facility] | | | ESTRADIOL | | + + + + | 2022-07-08 00:00 | NORGESTIMATE-ETHINYL | [facility] | | | ESTRADIOL | | + + + + | 2022-07-29 00:00 | NORGESTIMATE-ETHINYL | [facility] | | | ESTRADIOL | | + + + + | 2022-08-03 00:00 | NORGESTIMATE-ETHINYL | [facility] | | | ESTRADIOL | | + + + + | 2022-08-05 00:00 | NORGESTIMATE-ETHINYL | [facility] | | | ESTRADIOL | | + + + + | 2022-08-17 00:00 | NORGESTIMATE-ETHINYL | [facility] | | | ESTRADIOL | | + + + + | 2022-09-14 00:00 | NORGESTIMATE-ETHINYL | [facility] | | | ESTRADIOL | | + + + + | 2022-09-23 00:00 | NORGESTIMATE-ETHINYL | [facility] | | | ESTRADIOL | | + + + + | 2022-10-08 00:00 | NORGESTIMATE-ETHINYL | [facility] | | | ESTRADIOL | | + + + + | 2022-10-11 00:00 | NORGESTIMATE-ETHINYL | [facility] | | | ESTRADIOL | | + + + + | 2022-10-30 00:00 | NORGESTIMATE-ETHINYL | [facility] | | | ESTRADIOL | | + + + + | 2022-11-24 00:00 | NORGESTIMATE-ETHINYL | [facility] | | | ESTRADIOL | | + + + + | 2022-12-10 00:00 | NORGESTIMATE-ETHINYL | [facility] | | | ESTRADIOL | | + + + + | 2023-01-03 00:00 | NORGESTIMATE-ETHINYL | [facility] | | | ESTRADIOL | | + + + + | 2023-01-05 00:00 | NORGESTIMATE-ETHINYL | [facility] | | | ESTRADIOL | | + + + + | 2023-01-21 00:00 | NORGESTIMATE-ETHINYL | [facility] | | | ESTRADIOL | | + + + + | 2023-01-27 00:00 | NORGESTIMATE-ETHINYL | [facility] | | | ESTRADIOL | | + + + + | 2023-02-02 00:00 | NORGESTIMATE-ETHINYL | [facility] | | | ESTRADIOL | | + + + + | 2023-02-11 00:00 | NORGESTIMATE-ETHINYL | [facility] | | | ESTRADIOL | | + + + + | 2023-02-23 00:00 | NORGESTIMATE-ETHINYL | [facility] | | | ESTRADIOL | | + + + + | 2023-03-05 00:00 | NORGESTIMATE-ETHINYL | [facility] | | | ESTRADIOL | | + + + + | 2023-03-12 00:00 | NORGESTIMATE-ETHINYL | [facility] | | | ESTRADIOL | | + + + + | 2023-03-20 00:00 | NORGESTIMATE-ETHINYL | [facility] | | | ESTRADIOL | | + + + + | 2023-04-08 00:00 | NORGESTIMATE-ETHINYL | [facility] | | | ESTRADIOL | | + + + + | 2023-04-09 00:00 | NORGESTIMATE-ETHINYL | [facility] | | | ESTRADIOL | | + + + + | 2022-03-23 00:00 | ERGOCALCIFEROL (VITAMIN | [facility] | | | D2) | | + + + + | 2022-03-25 00:00 | ERGOCALCIFEROL (VITAMIN | [facility] | | | D2) | | + + + + | 2022-03-27 00:00 | ERGOCALCIFEROL (VITAMIN | [facility] | | | D2) | | + + + + | 2022-03-28 00:00 | ERGOCALCIFEROL (VITAMIN | [facility] | | | D2) | | + + + + | 2022-06-18 00:00 | ERGOCALCIFEROL (VITAMIN | [facility] | | | D2) | | + + + + | 2022-06-22 00:00 | ERGOCALCIFEROL (VITAMIN | [facility] | | | D2) | | + + + + | 2022-07-03 00:00 | ERGOCALCIFEROL (VITAMIN | [facility] | | | D2) | | + + + + | 2022-07-08 00:00 | ERGOCALCIFEROL (VITAMIN | [facility] | | | D2) | | + + + + | 2022-07-29 00:00 | ERGOCALCIFEROL (VITAMIN | [facility] | | | D2) | | + + + + | 2022-08-03 00:00 | ERGOCALCIFEROL (VITAMIN | [facility] | | | D2) | | + + + + | 2022-08-05 00:00 | ERGOCALCIFEROL (VITAMIN | [facility] | | | D2) | | + + + + | 2022-08-17 00:00 | ERGOCALCIFEROL (VITAMIN | [facility] | | | D2) | | + + + + | 2022-09-14 00:00 | ERGOCALCIFEROL (VITAMIN | [facility] | | | D2) | | + + + + | 2022-09-23 00:00 | ERGOCALCIFEROL (VITAMIN | [facility] | | | D2) | | + + + + | 2022-10-08 00:00 | ERGOCALCIFEROL (VITAMIN | [facility] | | | D2) | | + + + + | 2022-10-11 00:00 | ERGOCALCIFEROL (VITAMIN | [facility] | | | D2) | | + + + + | 2022-10-30 00:00 | ERGOCALCIFEROL (VITAMIN | [facility] | | | D2) | | + + + + | 2022-11-24 00:00 | ERGOCALCIFEROL (VITAMIN | [facility] | | | D2) | | + + + + | 2022-12-10 00:00 | ERGOCALCIFEROL (VITAMIN | [facility] | | | D2) | | + + + + | 2023-01-03 00:00 | ERGOCALCIFEROL (VITAMIN | [facility] | | | D2) | | + + + + | 2023-01-05 00:00 | ERGOCALCIFEROL (VITAMIN | [facility] | | | D2) | | + + + + | 2023-01-21 00:00 | ERGOCALCIFEROL (VITAMIN | [facility] | | | D2) | | + + + + | 2023-01-27 00:00 | ERGOCALCIFEROL (VITAMIN | [facility] | | | D2) | | + + + + | 2023-02-02 00:00 | ERGOCALCIFEROL (VITAMIN | [facility] | | | D2) | | + + + + | 2023-02-11 00:00 | ERGOCALCIFEROL (VITAMIN | [facility] | | | D2) | | + + + + | 2023-02-23 00:00 | ERGOCALCIFEROL (VITAMIN | [facility] | | | D2) | | + + + + | 2023-03-05 00:00 | ERGOCALCIFEROL (VITAMIN | [facility] | | | D2) | | + + + + | 2023-03-12 00:00 | ERGOCALCIFEROL (VITAMIN | [facility] | | | D2) | | + + + + | 2023-03-20 00:00 | ERGOCALCIFEROL (VITAMIN | [facility] | | | D2) | | + + + + | 2023-04-08 00:00 | ERGOCALCIFEROL (VITAMIN | [facility] | | | D2) | | + + + + | 2023-04-09 00:00 | ERGOCALCIFEROL (VITAMIN | [facility] | | | D2) | | + + + + | 2022-03-22 00:00 | Ergocalciferol (Vitamin | [facility] | | | D2) | | + + + + | 2022-03-22 00:00 | ergocalciferol 1.25 MG | [facility] | | | Oral Capsule | | + + + + | 2022-03-22 00:00 | Mesalamine | [facility] | + + + + | 2022-03-22 00:00 | mesalamine 400 MG Delayed | [facility] | | | Release Oral Capsule | | | | [Delzicol] | | + + + + | 2023-03-12 00:00 | DOXYCYCLINE HYCLATE | [facility] | + + + + | 2023-03-12 00:00 | DOXYCYCLINE HYCLATE | [facility] | + + + + | 2022-08-03 00:00 | INSULIN LISPRO | [facility] | + + + + | 2022-08-03 00:00 | INSULIN LISPRO | [facility] | + + + + | 2022-06-22 00:00 | Insulin Lispro | [facility] | + + + + | 2022-07-03 00:00 | Insulin Lispro | [facility] | + + + + | 2022-07-08 00:00 | Insulin Lispro | [facility] | + + + + | 2022-07-29 00:00 | Insulin Lispro | [facility] | + + + + | 2022-08-03 00:00 | Insulin Lispro | [facility] | + + + + | 2022-08-05 00:00 | Insulin Lispro | [facility] | + + + + | 2022-03-22 00:00 | 3 ML insulin lispro 100 | [facility] | | | UNT/ML Pen Injector | | | | [Humalog] | | + + + + | 2022-03-23 00:00 | INSULIN LISPRO | [facility] | + + + + | 2022-03-25 00:00 | INSULIN LISPRO | [facility] | + + + + | 2022-03-27 00:00 | INSULIN LISPRO | [facility] | + + + + | 2022-03-28 00:00 | INSULIN LISPRO | [facility] | + + + + | 2022-06-18 00:00 | INSULIN LISPRO | [facility] | + + + + | 2022-03-22 00:00 | 3 ML insulin aspart, human | [facility] | | | 100 UNT/ML Pen Injector | | | | [NovoLog] | | + + + + | 2022-03-23 00:00 | INSULIN ASPART | [facility] | + + + + | 2022-03-25 00:00 | INSULIN ASPART | [facility] | + + + + | 2022-03-27 00:00 | INSULIN ASPART | [facility] | + + + + | 2022-03-28 00:00 | INSULIN ASPART | [facility] | + + + + | 2022-06-18 00:00 | INSULIN ASPART | [facility] | + + + + | 2022-06-22 00:00 | INSULIN ASPART | [facility] | + + + + | 2022-07-03 00:00 | INSULIN ASPART | [facility] | + + + + | 2022-07-08 00:00 | INSULIN ASPART | [facility] | + + + + | 2022-07-29 00:00 | INSULIN ASPART | [facility] | + + + + | 2022-08-03 00:00 | INSULIN ASPART | [facility] | + + + + | 2022-08-05 00:00 | INSULIN ASPART | [facility] | + + + + | 2022-08-17 00:00 | INSULIN ASPART | [facility] | + + + + | 2022-09-14 00:00 | INSULIN ASPART | [facility] | + + + + | 2022-09-23 00:00 | INSULIN ASPART | [facility] | + + + + | 2022-10-08 00:00 | INSULIN ASPART | [facility] | + + + + | 2022-10-11 00:00 | INSULIN ASPART | [facility] | + + + + | 2022-10-30 00:00 | INSULIN ASPART | [facility] | + + + + | 2022-11-24 00:00 | INSULIN ASPART | [facility] | + + + + | 2022-12-10 00:00 | INSULIN ASPART | [facility] | + + + + | 2023-01-03 00:00 | INSULIN ASPART | [facility] | + + + + | 2023-01-05 00:00 | INSULIN ASPART | [facility] | + + + + | 2023-01-21 00:00 | INSULIN ASPART | [facility] | + + + + | 2023-01-27 00:00 | INSULIN ASPART | [facility] | + + + + | 2023-02-02 00:00 | INSULIN ASPART | [facility] | + + + + | 2023-02-11 00:00 | INSULIN ASPART | [facility] | + + + + | 2023-02-23 00:00 | INSULIN ASPART | [facility] | + + + + | 2023-03-05 00:00 | INSULIN ASPART | [facility] | + + + + | 2023-03-12 00:00 | INSULIN ASPART | [facility] | + + + + | 2023-03-20 00:00 | INSULIN ASPART | [facility] | + + + + | 2023-04-08 00:00 | INSULIN ASPART | [facility] | + + + + | 2023-04-09 00:00 | INSULIN ASPART | [facility] | + + + + | 2023-01-21 00:00 | CEPHALEXIN | [facility] | + + + + | 2022-03-23 00:00 | ESTRADIOL | [facility] | + + + + | 2022-03-25 00:00 | ESTRADIOL | [facility] | + + + + | 2022-03-27 00:00 | ESTRADIOL | [facility] | + + + + | 2022-03-28 00:00 | ESTRADIOL | [facility] | + + + + | 2022-06-18 00:00 | ESTRADIOL | [facility] | + + + + | 2022-06-22 00:00 | ESTRADIOL | [facility] | + + + + | 2022-07-03 00:00 | ESTRADIOL | [facility] | + + + + | 2022-07-08 00:00 | ESTRADIOL | [facility] | + + + + | 2022-07-29 00:00 | ESTRADIOL | [facility] | + + + + | 2022-08-03 00:00 | ESTRADIOL | [facility] | + + + + | 2022-08-05 00:00 | ESTRADIOL | [facility] | + + + + | 2022-08-17 00:00 | ESTRADIOL | [facility] | + + + + | 2022-09-14 00:00 | ESTRADIOL | [facility] | + + + + | 2022-09-23 00:00 | ESTRADIOL | [facility] | + + + + | 2022-10-08 00:00 | ESTRADIOL | [facility] | + + + + | 2022-10-11 00:00 | ESTRADIOL | [facility] | + + + + | 2022-10-30 00:00 | ESTRADIOL | [facility] | + + + + | 2022-11-24 00:00 | ESTRADIOL | [facility] | + + + + | 2022-12-10 00:00 | ESTRADIOL | [facility] | + + + + | 2023-01-03 00:00 | ESTRADIOL | [facility] | + + + + | 2023-01-05 00:00 | ESTRADIOL | [facility] | + + + + | 2023-01-21 00:00 | ESTRADIOL | [facility] | + + + + | 2023-01-27 00:00 | ESTRADIOL | [facility] | + + + + | 2023-02-02 00:00 | ESTRADIOL | [facility] | + + + + | 2023-02-11 00:00 | ESTRADIOL | [facility] | + + + + | 2023-02-23 00:00 | ESTRADIOL | [facility] | + + + + | 2023-03-05 00:00 | ESTRADIOL | [facility] | + + + + | 2023-03-12 00:00 | ESTRADIOL | [facility] | + + + + | 2023-03-20 00:00 | ESTRADIOL | [facility] | + + + + | 2023-04-08 00:00 | ESTRADIOL | [facility] | + + + + | 2023-04-09 00:00 | ESTRADIOL | [facility] | + + + + | 2022-03-22 00:00 | estradiol 2 MG Oral Tablet | [facility] | | | | | + + + + | 2022-10-08 00:00 | NAPROXEN | [facility] | + + + + | 2021-07-31 00:00 | OMEPRAZOLE | [facility] | + + + + | 2021-07-31 00:00 | OMEPRAZOLE | [facility] | + + + + | 2021-07-31 00:00 | omeprazole 20 MG Delayed | [facility] | | | Release Oral Capsule | | + + + + | 2023-03-12 00:00 | ONDANSETRON HCL | [facility] | + + + + | 2023-03-12 00:00 | ONDANSETRON HCL | [facility] | + + + + | 2022-06-22 00:00 | CEFDINIR | [facility] | + + + + | 2022-06-22 00:00 | CEFDINIR | [facility] | + + + + | 2022-09-14 00:00 | Metoprolol Succinate | [facility] | + + + + | 2022-09-23 00:00 | Metoprolol Succinate | [facility] | + + + + | 2022-10-08 00:00 | Metoprolol Succinate | [facility] | + + + + | 2022-10-11 00:00 | Metoprolol Succinate | [facility] | + + + + | 2022-10-30 00:00 | Metoprolol Succinate | [facility] | + + + + | 2022-11-24 00:00 | Metoprolol Succinate | [facility] | + + + + | 2022-12-10 00:00 | Metoprolol Succinate | [facility] | + + + + | 2023-01-03 00:00 | Metoprolol Succinate | [facility] | + + + + | 2023-01-05 00:00 | Metoprolol Succinate | [facility] | + + + + | 2023-01-21 00:00 | Metoprolol Succinate | [facility] | + + + + | 2023-01-27 00:00 | Metoprolol Succinate | [facility] | + + + + | 2023-02-02 00:00 | Metoprolol Succinate | [facility] | + + + + | 2023-02-11 00:00 | Metoprolol Succinate | [facility] | + + + + | 2023-02-23 00:00 | Metoprolol Succinate | [facility] | + + + + | 2023-03-05 00:00 | Metoprolol Succinate | [facility] | + + + + | 2023-03-12 00:00 | Metoprolol Succinate | [facility] | + + + + | 2023-03-20 00:00 | Metoprolol Succinate | [facility] | + + + + | 2023-04-08 00:00 | Metoprolol Succinate | [facility] | + + + + | 2023-04-09 00:00 | Metoprolol Succinate | [facility] | + + + + | 2022-03-23 00:00 | ESTRADIOL | [facility] | + + + + | 2022-03-25 00:00 | ESTRADIOL | [facility] | + + + + | 2022-03-27 00:00 | ESTRADIOL | [facility] | + + + + | 2022-03-28 00:00 | ESTRADIOL | [facility] | + + + + | 2022-06-18 00:00 | ESTRADIOL | [facility] | + + + + | 2022-06-22 00:00 | ESTRADIOL | [facility] | + + + + | 2022-07-03 00:00 | ESTRADIOL | [facility] | + + + + | 2022-07-08 00:00 | ESTRADIOL | [facility] | + + + + | 2022-07-29 00:00 | ESTRADIOL | [facility] | + + + + | 2022-08-03 00:00 | ESTRADIOL | [facility] | + + + + | 2022-08-05 00:00 | ESTRADIOL | [facility] | + + + + | 2022-08-17 00:00 | ESTRADIOL | [facility] | + + + + | 2022-09-14 00:00 | ESTRADIOL | [facility] | + + + + | 2022-09-23 00:00 | ESTRADIOL | [facility] | + + + + | 2022-10-08 00:00 | ESTRADIOL | [facility] | + + + + | 2022-10-11 00:00 | ESTRADIOL | [facility] | + + + + | 2022-10-30 00:00 | ESTRADIOL | [facility] | + + + + | 2022-11-24 00:00 | ESTRADIOL | [facility] | + + + + | 2022-12-10 00:00 | ESTRADIOL | [facility] | + + + + | 2023-01-03 00:00 | ESTRADIOL | [facility] | + + + + | 2023-01-05 00:00 | ESTRADIOL | [facility] | + + + + | 2023-01-21 00:00 | ESTRADIOL | [facility] | + + + + | 2023-01-27 00:00 | ESTRADIOL | [facility] | + + + + | 2023-02-02 00:00 | ESTRADIOL | [facility] | + + + + | 2023-02-11 00:00 | ESTRADIOL | [facility] | + + + + | 2023-02-23 00:00 | ESTRADIOL | [facility] | + + + + | 2023-03-05 00:00 | ESTRADIOL | [facility] | + + + + | 2023-03-12 00:00 | ESTRADIOL | [facility] | + + + + | 2023-03-20 00:00 | ESTRADIOL | [facility] | + + + + | 2023-04-08 00:00 | ESTRADIOL | [facility] | + + + + | 2023-04-09 00:00 | ESTRADIOL | [facility] | + + + + | 2022-03-22 00:00 | estradiol 1 MG Oral Tablet | [facility] | | | [Estrace] | | + + + + | 2022-10-06 00:00 | FLUCONAZOLE | [facility] | + + + + | 2021-07-31 00:00 | METOCLOPRAMIDE HCL | [facility] | + + + + | 2021-07-31 00:00 | METOCLOPRAMIDE HCL | [facility] | + + + + | 2021-07-31 00:00 | metoclopramide 10 MG Oral | [facility] | | | Tablet [Reglan] | | + + + + | 2022-06-22 00:00 | Cholecalciferol (Vitamin | [facility] | | | D3) | | + + + + | 2022-07-03 00:00 | Cholecalciferol (Vitamin | [facility] | | | D3) | | + + + + | 2022-07-08 00:00 | Cholecalciferol (Vitamin | [facility] | | | D3) | | + + + + | 2022-07-29 00:00 | Cholecalciferol (Vitamin | [facility] | | | D3) | | + + + + | 2022-08-03 00:00 | Cholecalciferol (Vitamin | [facility] | | | D3) | | + + + + | 2022-08-05 00:00 | Cholecalciferol (Vitamin | [facility] | | | D3) | | + + + + | 2022-03-23 00:00 | ASCORBIC ACID | [facility] | + + + + | 2022-03-25 00:00 | ASCORBIC ACID | [facility] | + + + + | 2022-03-27 00:00 | ASCORBIC ACID | [facility] | + + + + | 2022-03-28 00:00 | ASCORBIC ACID | [facility] | + + + + | 2022-06-18 00:00 | ASCORBIC ACID | [facility] | + + + + | 2022-06-22 00:00 | ASCORBIC ACID | [facility] | + + + + | 2022-07-03 00:00 | ASCORBIC ACID | [facility] | + + + + | 2022-07-08 00:00 | ASCORBIC ACID | [facility] | + + + + | 2022-07-29 00:00 | ASCORBIC ACID | [facility] | + + + + | 2022-08-03 00:00 | ASCORBIC ACID | [facility] | + + + + | 2022-08-05 00:00 | ASCORBIC ACID | [facility] | + + + + | 2022-08-17 00:00 | ASCORBIC ACID | [facility] | + + + + | 2022-09-14 00:00 | ASCORBIC ACID | [facility] | + + + + | 2022-09-23 00:00 | ASCORBIC ACID | [facility] | + + + + | 2022-10-08 00:00 | ASCORBIC ACID | [facility] | + + + + | 2022-10-11 00:00 | ASCORBIC ACID | [facility] | + + + + | 2022-10-30 00:00 | ASCORBIC ACID | [facility] | + + + + | 2022-11-24 00:00 | ASCORBIC ACID | [facility] | + + + + | 2022-12-10 00:00 | ASCORBIC ACID | [facility] | + + + + | 2023-01-03 00:00 | ASCORBIC ACID | [facility] | + + + + | 2023-01-05 00:00 | ASCORBIC ACID | [facility] | + + + + | 2023-01-21 00:00 | ASCORBIC ACID | [facility] | + + + + | 2023-01-27 00:00 | ASCORBIC ACID | [facility] | + + + + | 2023-02-02 00:00 | ASCORBIC ACID | [facility] | + + + + | 2023-02-11 00:00 | ASCORBIC ACID | [facility] | + + + + | 2023-02-23 00:00 | ASCORBIC ACID | [facility] | + + + + | 2023-03-05 00:00 | ASCORBIC ACID | [facility] | + + + + | 2023-03-12 00:00 | ASCORBIC ACID | [facility] | + + + + | 2023-03-20 00:00 | ASCORBIC ACID | [facility] | + + + + | 2023-04-08 00:00 | ASCORBIC ACID | [facility] | + + + + | 2023-04-09 00:00 | ASCORBIC ACID | [facility] | + + + + | 2022-03-22 00:00 | ascorbic acid 500 MG Oral | [facility] | | | Tablet | | + + + + | 2022-03-23 00:00 | AMLODIPINE BESYLATE | [facility] | + + + + | 2022-03-25 00:00 | AMLODIPINE BESYLATE | [facility] | + + + + | 2022-03-27 00:00 | AMLODIPINE BESYLATE | [facility] | + + + + | 2022-03-28 00:00 | AMLODIPINE BESYLATE | [facility] | + + + + | 2022-06-18 00:00 | AMLODIPINE BESYLATE | [facility] | + + + + | 2022-06-22 00:00 | AMLODIPINE BESYLATE | [facility] | + + + + | 2022-07-03 00:00 | AMLODIPINE BESYLATE | [facility] | + + + + | 2022-07-08 00:00 | AMLODIPINE BESYLATE | [facility] | + + + + | 2022-07-29 00:00 | AMLODIPINE BESYLATE | [facility] | + + + + | 2022-08-03 00:00 | AMLODIPINE BESYLATE | [facility] | + + + + | 2022-08-05 00:00 | AMLODIPINE BESYLATE | [facility] | + + + + | 2022-08-17 00:00 | AMLODIPINE BESYLATE | [facility] | + + + + | 2022-09-14 00:00 | AMLODIPINE BESYLATE | [facility] | + + + + | 2022-09-23 00:00 | AMLODIPINE BESYLATE | [facility] | + + + + | 2022-10-08 00:00 | AMLODIPINE BESYLATE | [facility] | + + + + | 2022-10-11 00:00 | AMLODIPINE BESYLATE | [facility] | + + + + | 2022-10-30 00:00 | AMLODIPINE BESYLATE | [facility] | + + + + | 2022-11-24 00:00 | AMLODIPINE BESYLATE | [facility] | + + + + | 2022-12-10 00:00 | AMLODIPINE BESYLATE | [facility] | + + + + | 2023-01-03 00:00 | AMLODIPINE BESYLATE | [facility] | + + + + | 2023-01-05 00:00 | AMLODIPINE BESYLATE | [facility] | + + + + | 2023-01-21 00:00 | AMLODIPINE BESYLATE | [facility] | + + + + | 2023-01-27 00:00 | AMLODIPINE BESYLATE | [facility] | + + + + | 2023-02-02 00:00 | AMLODIPINE BESYLATE | [facility] | + + + + | 2023-02-11 00:00 | AMLODIPINE BESYLATE | [facility] | + + + + | 2023-02-23 00:00 | AMLODIPINE BESYLATE | [facility] | + + + + | 2023-03-05 00:00 | AMLODIPINE BESYLATE | [facility] | + + + + | 2023-03-12 00:00 | AMLODIPINE BESYLATE | [facility] | + + + + | 2023-03-20 00:00 | AMLODIPINE BESYLATE | [facility] | + + + + | 2023-04-08 00:00 | AMLODIPINE BESYLATE | [facility] | + + + + | 2023-04-09 00:00 | AMLODIPINE BESYLATE | [facility] | + + + + | 2022-03-22 00:00 | amlodipine 2.5 MG Oral | [facility] | | | Tablet | | + + + + | 2021-03-01 00:00 | CEPHALEXIN | [facility] | + + + + | 2021-03-01 00:00 | CEPHALEXIN | [facility] | + + + + | 2021-07-14 00:00 | CEPHALEXIN | [facility] | + + + + | 2021-07-14 00:00 | CEPHALEXIN | [facility] | + + + + | 2021-10-25 00:00 | CEPHALEXIN | [facility] | + + + + | 2021-10-25 00:00 | CEPHALEXIN | [facility] | + + + + | 2022-02-14 00:00 | CEPHALEXIN | [facility] | + + + + | 2022-02-14 00:00 | CEPHALEXIN | [facility] | + + + + | 2021-03-01 00:00 | cephalexin 500 MG Oral | [facility] | | | Capsule | | + + + + | 2021-07-14 00:00 | cephalexin 500 MG Oral | [facility] | | | Capsule | | + + + + | 2021-10-25 00:00 | cephalexin 500 MG Oral | [facility] | | | Capsule | | + + + + | 2022-02-14 00:00 | cephalexin 500 MG Oral | [facility] | | | Capsule | | + + + + | 2022-03-22 00:00 | Ferrous Sulfate | [facility] | + + + + | 2022-03-22 00:00 | ferrous sulfate 325 MG | [facility] | | | Oral Tablet | | + + + + | 2022-02-13 00:00 | ONDANSETRON | [facility] | + + + + | 2022-02-13 00:00 | ONDANSETRON | [facility] | + + + + | 2023-01-05 00:00 | ONDANSETRON | [facility] | + + + + | 2023-03-20 00:00 | ONDANSETRON | [facility] | + + + + | 2023-03-20 00:00 | ONDANSETRON | [facility] | + + + + | 2022-02-13 00:00 | ondansetron 8 MG | [facility] | | | Disintegrating Oral Tablet | | + + + + | 2022-03-18 00:00 | PROCHLORPERAZINE MALEATE | [facility] | + + + + | 2022-03-18 00:00 | prochlorperazine 5 MG Oral | [facility] | | | Tablet | | + + + + | 2022-03-23 00:00 | ACETAMINOPHEN | [facility] | + + + + | 2022-03-25 00:00 | ACETAMINOPHEN | [facility] | + + + + | 2022-03-27 00:00 | ACETAMINOPHEN | [facility] | + + + + | 2022-03-28 00:00 | ACETAMINOPHEN | [facility] | + + + + | 2022-03-22 00:00 | acetaminophen 325 MG Oral | [facility] | | | Tablet | | + + + + | 2022-03-23 00:00 | LISINOPRIL | [facility] | + + + + | 2022-03-25 00:00 | LISINOPRIL | [facility] | + + + + | 2022-03-27 00:00 | LISINOPRIL | [facility] | + + + + | 2022-03-28 00:00 | LISINOPRIL | [facility] | + + + + 2022-06-18 00:00 | LISINOPRIL | [facility] | + + + + | 2022-06-22 00:00 | LISINOPRIL | [facility] | + + + + | 2022-07-03 00:00 | LISINOPRIL | [facility] | + + + + | 2022-07-08 00:00 | LISINOPRIL | [facility] | + + + + | 2022-07-29 00:00 | LISINOPRIL | [facility] | + + + + | 2022-08-03 00:00 | LISINOPRIL | [facility] | + + + + | 2022-08-05 00:00 | LISINOPRIL | [facility] | + + + + | 2022-08-17 00:00 | LISINOPRIL | [facility] | + + + + | 2022-09-14 00:00 | LISINOPRIL | [facility] | + + + + | 2022-09-23 00:00 | LISINOPRIL | [facility] | + + + + | 2022-10-08 00:00 | LISINOPRIL | [facility] | + + + + | 2022-10-11 00:00 | LISINOPRIL | [facility] | + + + + | 2022-10-30 00:00 | LISINOPRIL | [facility] | + + + + | 2022-11-24 00:00 | LISINOPRIL | [facility] | + + + + | 2022-12-10 00:00 | LISINOPRIL | [facility] | + + + + | 2023-01-03 00:00 | LISINOPRIL | [facility] | + + + + | 2023-01-05 00:00 | LISINOPRIL | [facility] | + + + + | 2023-01-21 00:00 | LISINOPRIL | [facility] | + + + + | 2023-01-27 00:00 | LISINOPRIL | [facility] | + + + + | 2023-02-02 00:00 | LISINOPRIL | [facility] | + + + + | 2023-02-11 00:00 | LISINOPRIL | [facility] | + + + + | 2023-02-23 00:00 | LISINOPRIL | [facility] | + + + + | 2023-03-05 00:00 | LISINOPRIL | [facility] | + + + + | 2023-03-12 00:00 | LISINOPRIL | [facility] | + + + + | 2023-03-20 00:00 | LISINOPRIL | [facility] | + + + + | 2023-04-08 00:00 | LISINOPRIL | [facility] | + + + + | 2023-04-09 00:00 | LISINOPRIL | [facility] | + + + + | 2022-03-22 00:00 | lisinopril 10 MG Oral | [facility] | | | Tablet | | + + + + | 2022-03-22 00:00 | METRONIDAZOLE | [facility] | + + + + | 2022-03-22 00:00 | metronidazole 250 MG Oral | [facility] | | | Tablet | | + + + + | 2022-06-22 00:00 | FENOFIBRATE | [facility] | + + + + | 2022-07-03 00:00 | FENOFIBRATE | [facility] | + + + + | 2022-07-08 00:00 | FENOFIBRATE | [facility] | + + + + | 2022-07-29 00:00 | FENOFIBRATE | [facility] | + + + + | 2022-08-03 00:00 | FENOFIBRATE | [facility] | + + + + | 2022-08-05 00:00 | FENOFIBRATE | [facility] | + + + + | 2022-08-17 00:00 | FENOFIBRATE | [facility] | + + + + | 2022-09-14 00:00 | FENOFIBRATE | [facility] | + + + + | 2022-09-23 00:00 | FENOFIBRATE | [facility] | + + + + | 2022-10-08 00:00 | FENOFIBRATE | [facility] | + + + + | 2022-10-11 00:00 | FENOFIBRATE | [facility] | + + + + | 2022-10-30 00:00 | FENOFIBRATE | [facility] | + + + + | 2022-11-24 00:00 | FENOFIBRATE | [facility] | + + + + | 2022-12-10 00:00 | FENOFIBRATE | [facility] | + + + + | 2023-01-03 00:00 | FENOFIBRATE | [facility] | + + + + | 2023-01-05 00:00 | FENOFIBRATE | [facility] | + + + + | 2023-01-21 00:00 | FENOFIBRATE | [facility] | + + + + | 2023-01-27 00:00 | FENOFIBRATE | [facility] | + + + + | 2023-02-02 00:00 | FENOFIBRATE | [facility] | + + + + | 2023-02-11 00:00 | FENOFIBRATE | [facility] | + + + + | 2023-02-23 00:00 | FENOFIBRATE | [facility] | + + + + | 2023-03-05 00:00 | FENOFIBRATE | [facility] | + + + + | 2023-03-12 00:00 | FENOFIBRATE | [facility] | + + + + | 2023-03-20 00:00 | FENOFIBRATE | [facility] | + + + + | 2023-04-08 00:00 | FENOFIBRATE | [facility] | + + + + | 2023-04-09 00:00 | FENOFIBRATE | [facility] | + + + + | 2022-03-23 00:00 | Fenofibrate | [facility] | | | Nanocrystallized | | + + + + | 2022-03-25 00:00 | Fenofibrate | [facility] | | | Nanocrystallized | | + + + + | 2022-03-27 00:00 | Fenofibrate | [facility] | | | Nanocrystallized | | + + + + | 2022-03-28 00:00 | Fenofibrate | [facility] | | | Nanocrystallized | | + + + + | 2022-06-18 00:00 | Fenofibrate | [facility] | | | Nanocrystallized | | + + + + | 2022-06-22 00:00 | Fenofibrate | [facility] | | | Nanocrystallized | | + + + + | 2022-07-03 00:00 | Fenofibrate | [facility] | | | Nanocrystallized | | + + + + | 2022-07-08 00:00 | Fenofibrate | [facility] | | | Nanocrystallized | | + + + + | 2022-07-29 00:00 | Fenofibrate | [facility] | | | Nanocrystallized | | + + + + | 2022-08-03 00:00 | Fenofibrate | [facility] | | | Nanocrystallized | | + + + + | 2022-08-05 00:00 | Fenofibrate | [facility] | | | Nanocrystallized | | + + + + | 2022-08-17 00:00 | Fenofibrate | [facility] | | | Nanocrystallized | | + + + + | 2022-09-14 00:00 | Fenofibrate | [facility] | | | Nanocrystallized | | + + + + | 2022-09-23 00:00 | Fenofibrate | [facility] | | | Nanocrystallized | | + + + + | 2022-10-08 00:00 | Fenofibrate | [facility] | | | Nanocrystallized | | + + + + | 2022-10-11 00:00 | Fenofibrate | [facility] | | | Nanocrystallized | | + + + + | 2022-10-30 00:00 | Fenofibrate | [facility] | | | Nanocrystallized | | + + + + | 2022-11-24 00:00 | Fenofibrate | [facility] | | | Nanocrystallized | | + + + + | 2022-12-10 00:00 | Fenofibrate | [facility] | | | Nanocrystallized | | + + + + | 2023-01-03 00:00 | Fenofibrate | [facility] | | | Nanocrystallized | | + + + + | 2023-01-05 00:00 | Fenofibrate | [facility] | | | Nanocrystallized | | + + + + | 2023-01-21 00:00 | Fenofibrate | [facility] | | | Nanocrystallized | | + + + + | 2023-01-27 00:00 | Fenofibrate | [facility] | | | Nanocrystallized | | + + + + | 2023-02-02 00:00 | Fenofibrate | [facility] | | | Nanocrystallized | | + + + + | 2023-02-11 00:00 | Fenofibrate | [facility] | | | Nanocrystallized | | + + + + | 2023-02-23 00:00 | Fenofibrate | [facility] | | | Nanocrystallized | | + + + + | 2023-03-05 00:00 | Fenofibrate | [facility] | | | Nanocrystallized | | + + + + | 2023-03-12 00:00 | Fenofibrate | [facility] | | | Nanocrystallized | | + + + + | 2023-03-20 00:00 | Fenofibrate | [facility] | | | Nanocrystallized | | + + + + | 2023-04-08 00:00 | Fenofibrate | [facility] | | | Nanocrystallized | | + + + + | 2023-04-09 00:00 | Fenofibrate | [facility] | | | Nanocrystallized | | + + + + | 2022-03-22 00:00 | fenofibrate 160 MG Oral | [facility] | | | Tablet | | + + + + | 2016-02-03 00:00 | CIPROFLOXACIN HCL/DEXAMETH | [facility] | | | | | + + + + | 2016-02-03 00:00 | CIPROFLOXACIN HCL/DEXAMETH | [facility] | | | | | + + + + | 2016-02-03 00:00 | ciprofloxacin 3 MG/ML / | [facility] | | | dexamethasone 1 MG/ML Otic | | | | Suspensio | | + + + + | 2022-03-18 00:00 | FENOFIBRATE | [facility] | | | NANOCRYSTALLIZED | | + + + + | 2022-03-18 00:00 | fenofibrate 48 MG Oral | [facility] | | | Tablet | | + + + + | 2022-09-23 00:00 | NITROFURANTOIN MONOHYD | [facility] | | | MACROCR | | + + + + | 2022-03-22 00:00 | 3 ML insulin glargine 100 | [facility] | | | UNT/ML Pen Injector | | | | [Lantus] | | + + + + | 2022-03-23 00:00 | INSULIN | [facility] | | | GLARGINE,HUM.REC.CARLINLOG | | + + + + | 2022-03-25 00:00 | INSULIN | [facility] | | | [facility] | | + + + + | 2022-03-27 00:00 | INSULIN | [facility] | | | [facility] | | + + + + | 2022-03-28 00:00 | INSULIN | [facility] | | | HUM. VIV[place]REC[place]ANLOG | | + + + + | 2022-06-18 00:00 | INSULIN | [facility] | | | HUM. VIV[place]LOG | | + + + + | 2022-06-22 00:00 | INSULIN | [facility] | | | GLARGINE,HUM.REC.ANLOG | | + + + + | 2022-07-03 00:00 | INSULIN | [facility] | | | GLARGINE,HUM.REC.ANLOG | | + + + + | 2022-07-08 00:00 | INSULIN | [facility] | | | GLARGINE,HUM.REC.ANLOG | | + + + + | 2022-07-29 00:00 | INSULIN | [facility] | | | GLARGINE,HUM.REC.ANLOG | | + + + + | 2022-08-03 00:00 | INSULIN | [facility] | | | GLARGINE,HUM.REC.ANLOG | | + + + + | 2022-08-05 00:00 | INSULIN | [facility] | | | GLAAviGINE,HUM.REC.ANLOG | | + + + + | 2022-08-17 00:00 | INSULIN | [facility] | | | GLARDAWOODE,HUM.REC.ANLOG | | + + + + | 2022-09-14 00:00 | INSULIN | [facility] | | | GLARDAWOODE,HUM.REC.ANLOG | | + + + + | 2022-09-23 00:00 | INSULIN | [facility] | | | GLARGINE,HUM.REC.ANLOG | | + + + + | 2022-10-08 00:00 | INSULIN | [facility] | | | [facility] | | + + + + | 2022-10-11 00:00 | INSULIN | [facility] | | | [facility] | | + + + + | 2022-10-30 00:00 | INSULIN | [facility] | | | [facility] | | + + + + | 2022-11-24 00:00 | INSULIN | [facility] | | | VIVIAN[facility].REC[place]LOG | | + + + + | 2022-12-10 00:00 | INSULIN | [facility] | | | [place],HUM.REC.ANLOG | | + + + + | 2023-01-03 00:00 | INSULIN | [facility] | | | GLARGINE,HUM.REC.ANLOG | | + + + + | 2023-01-05 00:00 | INSULIN | [facility] | | | GLARGINE,HUM.REC.ANLOG | | + + + + | 2023-01-21 00:00 | INSULIN | [facility] | | | GLARGINE,HUM.REC.ANLOG | | + + + + | 2023-01-27 00:00 | INSULIN | [facility] | | | GLARGINE,HUM.REC.ANLOG | | + + + + | 2023-02-02 00:00 | INSULIN | [facility] | | | GLAALESSIAHUM.REC.ANLOG | | + + + + | 2023-02-11 00:00 | INSULIN | [facility] | | [facility] | | + + + + | 2023-02-23 00:00 | INSULIN | [facility] | | | GLAFARR[place]HEHUM.REC.ANLOG | | + + + + | 2023-03-05 00:00 | INSULIN | [facility] | | | GLARDAWOODEHUM.REC.ANLOG | | + + + + | 2023-03-12 00:00 | INSULIN | [facility] | | | GLARGINE,[facility].REC.ANLOG | | + + + + | 2023-03-20 00:00 | INSULIN | [facility] | | | GLARGINE,[facility].REC.ANLOG | | + + + + | 2023-04-08 00:00 | INSULIN | [facility] | | | GLARGINE,[facility].REC.ANLOG | | + + + + | 2023-04-09 00:00 | INSULIN | [facility] | | | GLARGINE,HUM.REC.ANLOG | | + + + + | 2022-03-22 00:00 | 3 ML insulin detemir 100 | [facility] | | | UNT/ML Pen Injector | | | | [Levemir] | | + + + + | 2022-03-23 00:00 | INSULIN DETEMIR | [facility] | + + + + | 2022-03-25 00:00 | INSULIN DETEMIR | [facility] | + + + + | 2022-03-27 00:00 | INSULIN DETEMIR | [facility] | + + + + | 2022-03-28 00:00 | INSULIN DETEMIR | [facility] | + + + + | 2022-06-18 00:00 | INSULIN DETEMIR | [facility] | + + + + | 2022-06-22 00:00 | INSULIN DETEMIR | [facility] | + + + + | 2022-07-03 00:00 | INSULIN DETEMIR | [facility] | + + + + | 2022-07-08 00:00 | INSULIN DETEMIR | [facility] | + + + + | 2022-07-29 00:00 | INSULIN DETEMIR | [facility] | + + + + | 2022-08-03 00:00 | INSULIN DETEMIR | [facility] | + + + + | 2022-08-05 00:00 | INSULIN DETEMIR | [facility] | + + + + | 2022-08-17 00:00 | INSULIN DETEMIR | [facility] | + + + + | 2022-09-14 00:00 | INSULIN DETEMIR | [facility] | + + + + | 2022-09-23 00:00 | INSULIN DETEMIR | [facility] | + + + + | 2022-10-08 00:00 | INSULIN DETEMIR | [facility] | + + + + | 2022-10-11 00:00 | INSULIN DETEMIR | [facility] | + + + + | 2022-10-30 00:00 | INSULIN DETEMIR | [facility] | + + + + | 2022-11-24 00:00 | INSULIN DETEMIR | [facility] | + + + + | 2022-12-10 00:00 | INSULIN DETEMIR | [facility] | + + + + | 2023-01-03 00:00 | INSULIN DETEMIR | [facility] | + + + + | 2023-01-05 00:00 | INSULIN DETEMIR | [facility] | + + + + | 2023-01-21 00:00 | INSULIN DETEMIR | [facility] | + + + + | 2023-01-27 00:00 | INSULIN DETEMIR | [facility] | + + + + | 2023-02-02 00:00 | INSULIN DETEMIR | [facility] | + + + + | 2023-02-11 00:00 | INSULIN DETEMIR | [facility] | + + + + | 2023-02-23 00:00 | INSULIN DETEMIR | [facility] | + + + + | 2023-03-05 00:00 | INSULIN DETEMIR | [facility] | + + + + | 2023-03-12 00:00 | INSULIN DETEMIR | [facility] | + + + + | 2023-03-20 00:00 | INSULIN DETEMIR | [facility] | + + + + | 2023-04-08 00:00 | INSULIN DETEMIR | [facility] | + + + + | 2023-04-09 00:00 | INSULIN DETEMIR | [facility] | + + + + | 2021-01-22 00:00 | HYDROCODONE | [facility] | | | BIT/ACETAMINOPHEN | | + + + + | 2021-01-22 00:00 | HYDROCODONE | [facility] | | | BIT/ACETAMINOPHEN | | + + + + | 2022-12-10 00:00 | HYDROCODONE | [facility] | | | BIT/ACETAMINOPHEN | | + + + + | 2021-01-22 00:00 | acetaminophen 325 MG / | [facility] | | | hydrocodone bitartrate 5 MG | | | | Oral Tabl | | + + + + | 2022-03-23 00:00 | ROSUVASTATIN CALCIUM | [facility] | + + + + | 2022-03-25 00:00 | ROSUVASTATIN CALCIUM | [facility] | + + + + | 2022-03-27 00:00 | ROSUVASTATIN CALCIUM | [facility] | + + + + | 2022-03-28 00:00 | ROSUVASTATIN CALCIUM | [facility] | + + + + | 2022-06-18 00:00 | ROSUVASTATIN CALCIUM | [facility] | + + + + | 2022-06-22 00:00 | ROSUVASTATIN CALCIUM | [facility] | + + + + | 2022-06-22 00:00 | ROSUVASTATIN CALCIUM | [facility] | + + + + | 2022-07-03 00:00 | ROSUVASTATIN CALCIUM | [facility] | + + + + | 2022-07-08 00:00 | ROSUVASTATIN CALCIUM | [facility] | + + + + | 2022-07-29 00:00 | ROSUVASTATIN CALCIUM | [facility] | + + + + | 2022-08-03 00:00 | ROSUVASTATIN CALCIUM | [facility] | + + + + | 2022-08-05 00:00 | ROSUVASTATIN CALCIUM | [facility] | + + + + | 2022-08-17 00:00 | ROSUVASTATIN CALCIUM | [facility] | + + + + | 2022-09-14 00:00 | ROSUVASTATIN CALCIUM | [facility] | + + + + | 2022-09-23 00:00 | ROSUVASTATIN CALCIUM | [facility] | + + + + | 2022-10-08 00:00 | ROSUVASTATIN CALCIUM | [facility] | + + + + | 2022-10-11 00:00 | ROSUVASTATIN CALCIUM | [facility] | + + + + | 2022-10-30 00:00 | ROSUVASTATIN CALCIUM | [facility] | + + + + | 2022-11-24 00:00 | ROSUVASTATIN CALCIUM | [facility] | + + + + 2022-12-10 00:00 | ROSUVASTATIN CALCIUM | [facility] | + + + + | 2023-01-03 00:00 | ROSUVASTATIN CALCIUM | [facility] | + + + + | 2023-01-05 00:00 | ROSUVASTATIN CALCIUM | [facility] | + + + + | 2023-01-21 00:00 | ROSUVASTATIN CALCIUM | [facility] | + + + + | 2023-01-27 00:00 | ROSUVASTATIN CALCIUM | [facility] | + + + + | 2023-02-02 00:00 | ROSUVASTATIN CALCIUM | [facility] | + + + + | 2023-02-11 00:00 | ROSUVASTATIN CALCIUM | [facility] | + + + + | 2023-02-23 00:00 | ROSUVASTATIN CALCIUM | [facility] | + + + + | 2023-03-05 00:00 | ROSUVASTATIN CALCIUM | [facility] | + + + + | 2023-03-12 00:00 | ROSUVASTATIN CALCIUM | [facility] | + + + + | 2023-03-20 00:00 | ROSUVASTATIN CALCIUM | [facility] | + + + + | 2023-04-08 00:00 | ROSUVASTATIN CALCIUM | [facility] | + + + + | 2023-04-09 00:00 | ROSUVASTATIN CALCIUM | [facility] | + + + + | 2022-03-22 00:00 | rosuvastatin calcium 10 MG | [facility] | | | Oral Tablet [Crestor] | | + + + + | 2021-01-22 00:00 | TAMSULOSIN HCL | [facility] | + + + + | 2021-01-22 00:00 | TAMSULOSIN HCL | [facility] | + + + + | 2021-01-22 00:00 | tamsulosin hydrochloride | [facility] | | | 0.4 MG Oral Capsule | | | | [Flomax] | | + + + + | 2022-03-23 00:00 | LIPASE/PROTEASE/AMYLASE | [facility] | + + + + | 2022-03-25 00:00 | LIPASE/PROTEASE/AMYLASE | [facility] | + + + + | 2022-03-27 00:00 | LIPASE/PROTEASE/AMYLASE | [facility] | + + + + | 2022-03-28 00:00 | LIPASE/PROTEASE/AMYLASE | [facility] | + + + + | 2022-06-18 00:00 | LIPASE/PROTEASE/AMYLASE | [facility] | + + + + | 2022-06-22 00:00 | LIPASE/PROTEASE/AMYLASE | [facility] | + + + + | 2022-07-03 00:00 | LIPASE/PROTEASE/AMYLASE | [facility] | + + + + | 2022-07-08 00:00 | LIPASE/PROTEASE/AMYLASE | [facility] | + + + + | 2022-07-29 00:00 | LIPASE/PROTEASE/AMYLASE | [facility] | + + + + | 2022-08-03 00:00 | LIPASE/PROTEASE/AMYLASE | [facility] | + + + + | 2022-08-05 00:00 | LIPASE/PROTEASE/AMYLASE | [facility] | + + + + | 2022-08-17 00:00 | LIPASE/PROTEASE/AMYLASE | [facility] | + + + + | 2022-09-14 00:00 | LIPASE/PROTEASE/AMYLASE | [facility] | + + + + | 2022-09-23 00:00 | LIPASE/PROTEASE/AMYLASE | [facility] | + + + + | 2022-10-08 00:00 | LIPASE/PROTEASE/AMYLASE | [facility] | + + + + | 2022-10-11 00:00 | LIPASE/PROTEASE/AMYLASE | [facility] | + + + + | 2022-10-30 00:00 | LIPASE/PROTEASE/AMYLASE | [facility] | + + + + | 2022-11-24 00:00 | LIPASE/PROTEASE/AMYLASE | [facility] | + + + + | 2022-12-10 00:00 | LIPASE/PROTEASE/AMYLASE | [facility] | + + + + | 2023-01-03 00:00 | LIPASE/PROTEASE/AMYLASE | [facility] | + + + + | 2023-01-05 00:00 | LIPASE/PROTEASE/AMYLASE | [facility] | + + + + | 2023-01-21 00:00 | LIPASE/PROTEASE/AMYLASE | [facility] | + + + + | 2023-01-27 00:00 | LIPASE/PROTEASE/AMYLASE | [facility] | + + + + | 2023-02-02 00:00 | LIPASE/PROTEASE/AMYLASE | [facility] | + + + + | 2023-02-11 00:00 | LIPASE/PROTEASE/AMYLASE | [facility] | + + + + | 2023-02-23 00:00 | LIPASE/PROTEASE/AMYLASE | [facility] | + + + + | 2023-03-05 00:00 | LIPASE/PROTEASE/AMYLASE | [facility] | + + + + | 2023-03-12 00:00 | LIPASE/PROTEASE/AMYLASE | [facility] | + + + + | 2023-03-20 00:00 | LIPASE/PROTEASE/AMYLASE | [facility] | + + + + | 2023-04-08 00:00 | LIPASE/PROTEASE/AMYLASE | [facility] | + + + + | 2023-04-09 00:00 | LIPASE/PROTEASE/AMYLASE | [facility] | + + + + | 2022-03-22 00:00 | amylase [id number] UNT / lipase | [facility] | | | 6000 UNT / protease [id number] | | | | UNT Del | | + + + + | 2023-01-05 00:00 | HYDROMORPHONE HCL | [facility] | + + + + | 2022-11-24 00:00 | DICYCLOMINE HCL | [facility] | + + + + | 2022-12-10 00:00 | DICYCLOMINE HCL | [facility] | + + + + | 2023-01-03 00:00 | DICYCLOMINE HCL | [facility] | + + + + | 2023-01-05 00:00 | DICYCLOMINE HCL | [facility] | + + + + | 2023-01-21 00:00 | DICYCLOMINE HCL | [facility] | + + + + | 2023-01-27 00:00 | DICYCLOMINE HCL | [facility] | + + + + | 2023-02-02 00:00 | DICYCLOMINE HCL | [facility] | + + + + | 2023-02-11 00:00 | DICYCLOMINE HCL | [facility] | + + + + | 2023-02-23 00:00 | DICYCLOMINE HCL | [facility] | + + + + | 2023-03-05 00:00 | DICYCLOMINE HCL | [facility] | + + + + | 2023-03-12 00:00 | DICYCLOMINE HCL | [facility] | + + + + | 2023-03-20 00:00 | DICYCLOMINE HCL | [facility] | + + + + | 2023-04-08 00:00 | DICYCLOMINE HCL | [facility] | + + + + | 2023-04-09 00:00 | DICYCLOMINE HCL | [facility] | + + + + Problems + + + + | date | description | facility | + + + + | 2014-05-31 00:00 | DKA (diabetic | [facility] | | | ketoacidoses) | | + + + + | 2014-05-31 00:00 | Sepsis | [facility] | + + + + | 2014-05-31 00:00 | Sepsis | [facility] | + + + + | 2014-05-31 00:00 | Diabetes mellitus with | [facility] | | | ketoacidosis | | + + + + | 2014-05-31 00:00 | Diabetes mellitus with | [facility] | | | ketoacidosis | | + + + + | 2014-05-31 00:00 | Dehydration | [facility] | + + + + | 2014-05-31 00:00 | Dehydration | [facility] | + + + + | 2016-02-03 00:00 | Bilateral otitis externa | [facility] | + + + + | 2016-02-03 00:00 | Bilateral otitis externa | [facility] | + + + + | 2016-02-03 00:00 | Acute otitis media of both | [facility] | | | ears with perforation | | + + + + | 2016-02-03 00:00 | Acute otitis media of both | [facility] | | | ears with perforation | | + + + + | 2018-01-03 00:00 | DKA (diabetic | [facility] | | | ketoacidoses) | | + + + + | 2018-01-03 00:00 | Diabetic ketoacidosis | [facility] | + + + + | 2018-01-03 00:00 | Diabetic ketoacidosis | [facility] | + + + + | 2018-01-03 00:00 | Hypertriglyceridemia | [facility] | + + + + | 2018-01-03 00:00 | Hypertriglyceridemia | [facility] | + + + + | 2018-01-03 00:00 | Hypokalemia | [facility] | + + + + | 2018-01-03 00:00 | Hypokalemia | [facility] | + + + + | 2018-01-03 00:00 | Pancreatitis | [facility] | + + + + | 2018-01-03 00:00 | Pancreatitis | [facility] | + + + + | 2018-03-14 00:00 | DKA, type 1 | [facility] | + + + + | 2018-03-14 00:00 | Type 1 diabetes mellitus | [facility] | | | with ketoacidosis | | + + + + | 2018-03-14 00:00 | Type 1 diabetes mellitus | [facility] | | | with ketoacidosis | | + + + + | 2019-03-18 00:00 | Chest wall pain | [facility] | + + + + | 2019-03-18 00:00 | Chest wall pain | [facility] | + + + + | 2021-01-20 00:00 | Urinary retention | [facility] | + + + + | 2021-01-20 00:00 | Retention of urine | [facility] | + + + + | 2021-01-20 00:00 | Retention of urine | [facility] | + + + + | 2021-01-20 00:00 | Hyperglycemia | [facility] | + + + + | 2021-01-20 00:00 | Hyperglycemia | [facility] | + + + + | 2021-01-29 00:00 | Encounter for medical | [facility] | | | screening examination | | + + + + | 2021-01-29 00:00 | Encounter for medical | [facility] | | | screening examination | | + + + + | 2021-01-29 00:00 | Encounter for Ellis | [facility] | | | catheter removal | | + + + + | 2021-01-29 00:00 | Encounter for Ellis | [facility] | | | catheter removal | | + + + + | 2021-02-02 00:00 | Abdominal pain | [facility] | + + + + | 2021-02-02 00:00 | Abdominal pain | [facility] | + + + + | 2021-02-02 00:00 | Nausea and vomiting | [facility] | + + + + | 2021-02-02 00:00 | Nausea and vomiting | [facility] | + + + + | 2021-03-01 00:00 | UTI (urinary tract | [facility] | | | infection) | | + + + + | 2021-03-01 00:00 | Urinary tract infection | [facility] | + + + + | 2021-03-01 00:00 | Urinary tract infection | [facility] | + + + + | 2021-07-21 00:00 | Acute chest wall pain | [facility] | + + + + | 2021-07-21 00:00 | Acute chest wall pain | [facility] | + + + + | 2021-07-31 00:00 | Acute gastritis | [facility] | + + + + | 2021-07-31 00:00 | Acute gastritis | [facility] | + + + + | [...] + + | 2021-07-31 11:38 | 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) | [facility] | | | 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 [...] + + + | 2021-09-09 20:54 | 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 | [facility] | | | INSULIN | | + + + + | 2021-09-09 20:54 | OTHER SKILLED NURSING (CURRENT) | [facility] | | | DRUG [...] 2021-09-27 00:00 | Allergic reaction caused | [facility] | | | by a drug | | + + + + | 2021-09-27 00:00 | Allergic reaction to drug | [facility] | + + + + | 2021-09-27 00:00 | Allergic reaction to drug | [facility] | + + + + | [...] EFFECT OF | [facility] | | | [id number] | | | | INHIBITORS, INIT | | + + + + | 2021-09-27 21:10 | 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 | [facility] | | | INSULIN | | + + + + | 2021-09-27 21:10 | 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) | [facility] | | | DRUG [...] + + + | 2021-10-24 21:04 | SKILLED NURSING (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 OF | [facility] | | | INSULIN | | + + + + | 2021-10-24 21:04 | OTHER SKILLED NURSING (CURRENT) | [facility] | | | DRUG [...] + + + | 2021-11-02 23:59 | SKILLED NURSING (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 OF | [facility] | | | INSULIN | | + + + + | 2021-11-02 23:59 | OTHER SKILLED NURSING (CURRENT) | [facility] | | | DRUG [...] + | 2021-11-08 00:00 | Abelino | [facility] | + + + + | 2021-11-08 00:00 | Dyspnea | [facility] | + + + + | 2021-11-08 00:00 | Dyspnea | [facility] | + + + + | 2021-11-08 00:00 | Non-cardiac chest pain | [facility] | + + + + | 2021-11-08 00:00 | Non-cardiac chest pain | [facility] | + + + + | 2021-11-08 00:00 | Lightheadedness | [facility] | + + + + | 2021-11-08 00:00 | Lightheadedness | [facility] | + + + + [...] + + + | 2021-11-08 00:36 | 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 | [facility] | | | ORAL HYPOGLYCEMIC DRUGS | | + + + + | 2021-11-08 00:36 | 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) | [facility] | | | DRUG [...] + + + | 2021-11-26 22:29 | SKILLED NURSING (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 OF | [facility] | | | INSULIN | | + + + + | 2021-11-26 22:29 | OTHER SKILLED NURSING (CURRENT) | [facility] | | | DRUG [...] 2021-11-27 00:00 | Insulin dependent diabetes | [facility] | | | mellitus | | + + + + | 2021-11-27 00:00 | Hypertension | [facility] | + + + + | 2021-11-27 00:00 | Hypertension | [facility] | + + + + | 2021-11-27 00:00 | Insulin dependent diabetes | [facility] | | | mellitus | | + + + + | 2021-11-27 00:00 | Resolved abdominal pain | [facility] | + + + + | 2021-11-27 00:00 | Resolved abdominal pain | [facility] | + + + + | [...] + + + | 2021-12-04 20:12 | 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 | [facility] | | | INSULIN | | + + + + | 2021-12-04 20:12 | OTHER SKILLED NURSING (CURRENT) | [facility] | | | DRUG [...] 00:00 | Hordeolum externum left | [facility] | | | lower eyelid | | + + + + | 2021-12-05 00:00 | Hordeolum externum of left | [facility] | | | lower eyelid | | + + + + | 2021-12-05 00:00 | Hordeolum externum of left | [facility] | | | lower eyelid | | + + + + | 2021-12-05 00:00 | Otitis externa | [facility] | + + + + | 2021-12-05 00:00 | Otitis externa | [facility] | + + + + | [...] + + + | 2021-12-23 14:51 | 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 | [facility] | | | INSULIN | | + + + + | 2021-12-23 14:51 | 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) | [facility] | | | DRUG [...] + + + | 2022-02-07 23:34 | 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 | [facility] | | | INSULIN | | + + + + | 2022-02-07 23:34 | 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) | [facility] | | | DRUG [...] 00:00 | Contusion of left knee | [facility] | + + + + | 2022-02-08 00:00 | Contusion of left knee | [facility] | + + + + | [...] + + + | 2022-02-13 20:21 | 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 | [facility] | | | INSULIN | | + + + + | 2022-02-13 20:21 | OTHER SKILLED NURSING (CURRENT) | [facility] | | | DRUG [...] 2022-02-17 00:00 | Hypoglycemia due to | [facility] | | | insulin | | + + + + | 2022-02-17 00:00 | Hypoglycemic reaction to | [facility] | | | insulin | | + + + + | 2022-02-17 00:00 | Hypoglycemic reaction to | [facility] | | | insulin | | [...] + + + | 2022-02-17 03:45 | 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 | [facility] | | [...] + + + | 2022-03-04 15:28 | SKILLED NURSING (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 OF | [facility] | | | INSULIN | | + + + + | 2022-03-04 15:28 | 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) | [facility] | | | DRUG [...] 2022-03-07 00:00 | Upper abdominal pain | [facility] | + + + + | 2022-03-07 00:00 | Pain of upper abdomen | [facility] | + + + + | 2022-03-07 00:00 | Pain of upper abdomen | [facility] | + + + + | [...] + + + | 2022-03-07 00:39 | SKILLED NURSING (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 OF | [facility] | | | INSULIN | | + + + + | 2022-03-07 00:39 | 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) | [facility] | | | DRUG [...] 2022-03-12 00:00 | Candidiasis of genitalia | [facility] | + + + + | 2022-03-12 00:00 | Candidiasis of genitalia | [facility] | + + + + | [...] + + + | 2022-03-12 02:19 | 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 | [facility] | | | INSULIN | | + + + + | 2022-03-12 02:19 | OTHER SKILLED NURSING (CURRENT) | [facility] | | | DRUG [...] 2022-03-16 00:00 | CRI (chronic renal | [facility] | | | insufficiency) | | + + + + | 2022-03-16 00:00 | Diabetes | [facility] | + + + + | 2022-03-16 00:00 | Diabetes mellitus | [facility] | + + + + | 2022-03-16 00:00 | Diabetes mellitus | [facility] | + + + + | 2022-03-16 00:00 | Chronic renal impairment | [facility] | + + + + | 2022-03-16 00:00 | Chronic renal impairment | [facility] | + + + + | [...] + + | 2022-03-16 10:31 | 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) | [facility] | | | DRUG [...] 00:00 | Type 1 diabetes mellitus | [facility] | + + + + | 2022-03-19 00:00 | Type 1 diabetes mellitus | [facility] | + + + + | 2022-03-19 00:00 | Colitis | [facility] | + + + + | 2022-03-19 00:00 | Colitis | [facility] | + + + + | [...] + + + | 2022-03-19 10:01 | SKILLED NURSING (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 OF | [facility] | | | INSULIN | | + + + + | 2022-03-19 10:01 | SKILLED NURSING (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 OF | [facility] | | | OPIATE ANALGESIC | | + + + + | 2022-03-19 10:01 | 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) | [facility] | | | DRUG [...] | 2022-03-26 00:00 | Chest pain | [facility] | + + + + | 2022-03-26 00:00 | Chest pain | [facility] | + + + + | [...] + + + | 2022-03-26 06:58 | 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 | [facility] | | | INSULIN | | + + + + | 2022-03-26 06:58 | 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) | [facility] | | | DRUG [...] | 2022-04-21 00:00 | Epigastric pain | [facility] | + + + + | 2022-04-21 00:00 | Epigastric pain | [facility] | + + + + | [...] + + + | 2022-04-21 07:11 | 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 | [facility] | | | INSULIN | | + + + + | 2022-04-21 07:11 | 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) | [facility] | | | DRUG [...] + + + | 2022-05-22 22:48 | SKILLED NURSING (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 OF | [facility] | | | INSULIN | | + + + + | 2022-05-22 22:48 | OTHER SKILLED NURSING (CURRENT) | [facility] | | | DRUG [...] 2022-05-23 00:00 | Atypical chest pain | [facility] | + + + + | 2022-05-23 00:00 | Atypical chest pain | [facility] | + + + + | [...] + + + | 2022-05-26 18:10 | SKILLED NURSING (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 OF | [facility] | | [...] + + + | 2022-06-18 11:42 | 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 | [facility] | | | INSULIN | | + + + + | 2022-06-18 11:42 | OTHER SKILLED NURSING (CURRENT) | [facility] | | | DRUG [...] 2022-06-21 00:00 | Acute kidney injury | [facility] | + + + + | 2022-06-21 00:00 | Acute kidney injury | [facility] | + + + + | [...] | 2022-06-22 00:00 | Acidosis | [facility] | + + + + | 2022-06-22 00:00 | Acidosis | [facility] | + + + + | 2022-07-03 00:00 | Right upper quadrant | [facility] | | | abdominal pain | | + + + + | 2022-07-03 00:00 | Right upper quadrant | [facility] | | | abdominal pain | [...] + + + | 2022-07-03 05:56 | SKILLED NURSING (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 OF | [facility] | | | INSULIN | | + + + + | 2022-07-03 05:56 | 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) | [facility] | | | DRUG [...] 00:00 | Patient left without being | [facility] | | | seen | | + + + + | 2022-07-08 00:00 | Patient left without being | [facility] | | | seen | | + + + + | 2022-07-27 00:00 | Biliary colic | [facility] | + + + + | 2022-07-27 00:00 | Biliary colic | [facility] | + + + + | [...] + + | 2022-07-27 00:25 | 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) | [facility] | | | DRUG [...] + + + | 2022-07-29 08:41 | 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 | [facility] | | | INSULIN | | + + + + | 2022-07-29 08:41 | 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) | SAH | | | DRUG [...] + | 2022-08-03 00:00 | Hyperkalemia | [facility] | + + + + | 2022-08-03 00:00 | Hyperkalemia | [facility] | + + + + | 2022-08-03 00:00 | Encounter for medication | [facility] | | | refill | | + + + + | 2022-08-03 00:00 | Encounter for medication | [facility] | | | refill | | [...] + + | 2022-08-03 12:33 | 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) | [facility] | | | DRUG [...] + + + | 2022-09-22 21:55 | 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 | [facility] | | | INSULIN | | + + + + | 2022-09-22 21:55 | OTHER SKILLED NURSING (CURRENT) | [facility] | | | DRUG [...] + | 2022-10-06 00:00 | Dysuria | [facility] | + + + + | 2022-10-06 00:00 | Dysuria | [facility] | + + + + | [...] + + + | 2022-10-06 04:49 | SKILLED NURSING (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 OF | [facility] | | | INSULIN | | + + + + | 2022-10-06 04:49 | OTHER SKILLED NURSING (CURRENT) | [facility] | | | DRUG [...] + + + | 2022-10-10 22:40 | 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 | [facility] | | | INSULIN | | + + + + | 2022-10-10 22:40 | OTHER SKILLED NURSING (CURRENT) | [facility] | | | DRUG [...] 00:00 | Type 1 diabetes mellitus | [facility] | | | with hyperglycemia | | + + + + | 2022-10-11 00:00 | Type 1 diabetes mellitus | [facility] | | | with hyperglycemia | | + + + + | 2022-10-30 00:00 | Renal insufficiency | [facility] | + + + + | 2022-10-30 00:00 | Renal insufficiency | [facility] | + + + + | [...] + + + | 2022-10-30 01:11 | 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 | [facility] | | | INSULIN | | + + + + | 2022-10-30 01:11 | OTHER SKILLED NURSING (CURRENT) | [facility] | | | DRUG [...] 2022-11-24 00:00 | Chronic abdominal pain | [facility] | + + + + | 2022-11-24 00:00 | Chronic abdominal pain | [facility] | + + + + | [...] + + + | 2022-11-24 20:55 | 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 | [facility] | | | INSULIN | | + + + + | 2022-11-24 20:55 | OTHER SKILLED NURSING (CURRENT) | [facility] | | | DRUG [...] | 2022-12-07 00:00 | Acute pancreatitis | [facility] | + + + + | 2022-12-07 00:00 | Acute pancreatitis | [facility] | + + + + | [...] + + + | 2022-12-08 11:00 | 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 | [facility] | | | INSULIN | | + + + + | 2022-12-08 11:00 | 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) | [facility] | | | DRUG [...] | 2023-01-03 00:00 | Recurrent pancreatitis | [facility] | + + + + | 2023-01-03 00:00 | Recurrent pancreatitis | [facility] | + + + + | 2023-01-03 00:00 | Abdominal bloating | [facility] | + + + + | 2023-01-03 00:00 | Abdominal bloating | [facility] | + + + + | 2023-01-03 00:00 | Left against medical | [facility] | | | advice | | + + + + | 2023-01-03 00:00 | Left against medical | [facility] | | | advice | | [...] + + + | 2023-01-20 23:40 | SKILLED NURSING (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 OF | [facility] | | [...] + + + | 2023-01-26 21:48 | SKILLED NURSING (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 OF | [facility] | | [...] + + + | 2023-02-02 00:06 | 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 | [facility] | | [...] | 2023-02-11 00:00 | Positive blood | [facility] | | | test | | + + + + | 2023-02-11 00:00 | Positive blood | [facility] | | | test | | + + + + | 2023-02-11 00:00 | | [facility] | + + + + | 2023-02-11 00:00 | | [facility] | + + + + | [...] + + + | 2023-02-11 00:33 | 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 | [facility] | | | INSULIN | | + + + + | 2023-02-11 00:33 | OTHER SKILLED NURSING (CURRENT) | [facility] | | | DRUG [...] + + + | 2023-02-23 00:40 | 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 | [facility] | | | INSULIN | | + + + + | 2023-02-23 00:40 | 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) | [facility] | | | DRUG [...] + + + | 2023-03-04 21:44 | SKILLED NURSING (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 OF | [facility] | | | INSULIN | | + + + + | 2023-03-04 21:44 | 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) | [facility] | | | DRUG [...] 2023-03-12 00:00 | Poorly controlled diabetes | [facility] | | | mellitus | | + + + + | 2023-03-12 00:00 | Poorly controlled diabetes | [facility] | | | mellitus | | [...] + + + | 2023-03-12 11:46 | 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 | [facility] | | [...] + + + | 2023-03-20 13:05 | SKILLED NURSING (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 OF | [facility] | | | INSULIN | | + + + + | 2023-03-20 13:05 | OTHER SKILLED NURSING (CURRENT) | [facility] | | | DRUG [...] + + + | 2023-04-08 00:15 | SKILLED NURSING (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 OF | [facility] | | [...] + + + | 2023-04-22 00:28 | 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 | [facility] | | | INSULIN | | + + + + | 2023-04-22 00:28 | 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) | [facility] | | | DRUG [...] 00:00 | EXCISION OF RIGHT LARGE | [facility] | | | INTESTINE, ENDO, DIAGN | | + + + + | 2022-03-20 00:00 | EXCISION OF LEFT LARGE | [facility] | | | INTESTINE, ENDO, DIAGN | | + + + + | 2022-03-20 00:00 | EXCISION OF CECUM, ENDO, | [facility] | | | DIAGN | | + + + + | 2022-03-20 00:00 | EXCISION OF SIGMOID COLON, | [facility] | | | ENDO, DIAGN | | + + + + | 2022-03-20 00:00 | EXCISION OF RECTUM, ENDO, | [facility] | | | DIAGN | | + + + + | 2022-03-20 00:00 | TRANSFUSE NONAUT RED BLOOD | [facility] | | | CELLS IN PERIPH VEIN, PERC | | | | | | + + + + | 2022-03-20 00:00 | Colonoscopy with biopsy of | [facility] | | | colon | | [...] | (missing) | | (unavailable | | [facility] | | | | ) | | [facility] | | | | + + + + + + + + + | Result panel 5 | + + + + + + + + + | | (no date) | [facility] | | (missing) | (missing) | | (unavailable | | Andrea | [phone] | | | | ) | | [...] | | (unavailable | | Andrea | [phone] | | | | ) | | [...] | | (unavailable | | Andrea | [phone] | | | | ) | | [...] | | (unavailable | | Andrea | [phone] | | | | ) | | [...] | | | | | | | Norwegian | | | | | | + [...] (missing) | | plasma | 06:08 | Andera | | | | | sodium | [...] NEGATIVE | (missing) | (missing) | | [id number] | 07:45 | Andrea | | | [...] (missing) | | (unavailable | 07:45 | Nadrea | | | [...] (missing) | | (unavailable | 12:20 | nAdrea | | | | | [...] (missing) | | (unavailable | 13:00 | Andrae | | | | | [...] (missing) | | (unavailable | 06:30 | Nadrea | | | | | [...] (missing) | | (unavailable | 05:20:08 | Andera | | | | | [...] (missing) | | (unavailable | 22:11:07 | Andrae | | | | | [...] (missing) | | (unavailable | 13:50:07 | Nadrea | | | | | [...] | trans packed | | Andrea | [phone] | | | | RBC | | [...] 2022-03-22 00:00 | Never smoker | [facility] | + + + + [...]
[~2023-05-05 21:18] MED LIST changes: -FENOFIBRATE160 MG PO; +FENOFIBRATE54 MG PO; +IRON325 M1 PO; -KAPSPARGO SPRIN25 MG PO; +TOPROL XL25 MG PO
--- OUTSIDE RECORDS SUMMARY | 2023-05-05 21:20 | XMS ---
PreManage Notification: MONTSE GUTIERREZ Security Track Laying Supervisor Events 3 event(s) in the past 18 months Most recent security events: Elopement at [facility] 01/03/2023 12:12 - Patient eloped before treatment completed. - Patient with suicidal and/or homicidal ideations eloped. - Patient eloped with IV in place. Details: Patient left AMA Elopement at [facility] 08/17/2022 17:10 - Patient eloped before treatment completed. - Patient with suicidal and/or homicidal ideations eloped. - Patient eloped with IV in place. Details: Patient LWBS. Elopement at [facility] 07/08/2022 22:03 - Patient eloped before treatment completed. - Patient with suicidal and/or homicidal ideations eloped. - Patient eloped with IV in place. Details: PATIENT LWBS CRITERIA MET - 6 ED Visits in 6 Months - [facility] - 2 Visits in [address] - [facility] - 3 Facilities in 90 Days CARE PROVIDERS JORDEN HAYWOOD Nurse Practitioner: Family 04/21/2023-Current PHONE: [phone] SAUL THORPE Physician Concrete Curer 03/19/2019-Current PHONE: Unknown [facility] 01/22/2021-[facility] PHONE: [phone] Jef has no Care Guidelines for this patient. Care History Medical/Surgical 09/24/2021 [facility] Contacted [facility] order processing [id number] of recent ED visits. They will follow up with the patient. 02/05/2021 [facility] - [facility] CALLED AND SPOKE WITH SEO MANAGER WALDEMAR- DISCUSSED RECENT ED VISITS- PRIMARY CARE PHYSICIAN REVIEWED PATIENT RECENT ED VISITS AND DID CONTACT PATIENT-THEY HAVE INSTRUCTED PATIENT TO CONTACT KINDERGARTEN PARAPROFESSIONAL DR HAMMOND TO SCHEDULE AND EARLIER APT IF POSSIBLE. PATIENT HAS TO MAKE THE APT FOR FOLLOW UP THE CLINIC CAN\T\#39;T SCHEDULE THE APT FOR THE PATIENT. - PATIENT HAS AN APT 02/06/[address] CHRISTENSEN. 01/25/2021 [facility] VOIDING TRIAL SCHEDULED WITH DR CHRISTENSEN UROLOGIST 02/06/21 [facility] V[facility] (12 MO.) [address] TOTAL 38 NOTE: Visits indicate total known visits. ED/UCC VISIT TRACKING (12 MO.) 05/05/2023 21:[address] [facility] [address] TYPE: Emergency COMPLAINT: - FLANK PAIN 04/22/2023 00:[address] [facility] [address] TYPE: Emergency COMPLAINT: - ABD PAIN 04/18/2023 17:16 [facility] TYPE: Emergency DIAGNOSES: - Acute pancreatitis without necrosis or infection, unspecified - Abdominal Pain 04/09/2023 01:30 [facility] [place] TYPE: Emergency COMPLAINT: - ABD PAIN 04/08/2023 00:15 [facility] [place] TYPE: Emergency COMPLAINT: - ABD PAIN,BACK PAIN DIAGNOSES: - Allergy status to narcotic agent - Allergy status to other antibiotic agents - Allergy status to other drugs, medicaments and biological substances - Allergy status to sulfonamides - Chronic kidney disease, unspecified - Hyperlipidemia, unspecified - Hypertensive chronic kidney disease with stage 1 through stage 4 chronic kidney disease, or unspecified chronic kidney disease - skilled nursing (current) use of insulin - Right upper quadrant pain - Type 1 diabetes mellitus with diabetic chronic kidney disease 03/20/2023 13:05 [facility] [place] TYPE: Emergency COMPLAINT: - ABD PAIN, RECTAL BLEEDING, BACK PAIN DIAGNOSES: - Acute pancreatitis without necrosis or infection, unspecified - Allergy status to narcotic agent - Allergy status to other antibiotic agents - Allergy status to other drugs, medicaments and biological substances - Allergy status to penicillin - Allergy status to sulfonamides - surface plate finisher (current) use of insulin - Other barkeep (current) drug therapy - Upper abdominal pain, [...] disease, or unspecified chronic kidney disease - skilled nursing (current) use of insulin - Nausea - [...] to sulfonamides - Essential (primary) hypertension - surface plate finisher (current) use of insulin - Other chronic pain - Other 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 (current) drug therapy - Right lower quadrant [...] disease, or unspecified chronic kidney disease - skilled nursing (current) use of insulin - Other 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 (current) drug therapy - Type 1 diabetes [...] Less than 8 weeks gestation of - skilled nursing (current) use of insulin - Other barkeep (current) drug therapy - Other specified related conditions, first trimester - Pre-existing hypertensive chronic kidney disease complicating , first trimester - Type 2 diabetes mellitus with diabetic chronic kidney disease - Unspecified pre-existing diabetes mellitus in , first trimester [facility] DIAGNOSES: - Generalized abdominal [...] disease, or unspecified chronic kidney disease - surface plate finisher (current) use of insulin - Other chronic [...] disease, or unspecified chronic kidney disease - skilled nursing (current) use of insulin [...] - Dysuria - Essential (primary) hypertension - skilled nursing (current) use of insulin [...] with diabetic chronic kidney disease 12/07/2022 16:50 [facility] [place] [facility] TYPE: Emergency COMPLAINT: - ABDOMINAL PAIN 11/24/2022 20:55 [facility] [facility] TYPE: Emergency COMPLAINT: - HIGH BLOOD SUGAR DIAGNOSES: - Allergy status to narcotic agent - Allergy status to other antibiotic agents - Allergy status to other drugs, medicaments and biological substances - Allergy status to penicillin - Allergy status to sulfonamides - Essential (primary) hypertension - Hyperlipidemia, unspecified - surface plate finisher (current) use of insulin - Other chronic pain - Other barkeep (current) drug therapy - Type 2 diabetes mellitus with hyperglycemia - Unspecified abdominal pain 11/14/2022 19:46 [facility] TYPE: Emergency DIAGNOSES: - Generalized abdominal pain - Type 2 diabetes mellitus with hyperglycemia - abd pain - Abdominal Pain 11/05/2022 21:56 [facility] TYPE: Emergency DIAGNOSES: - Type 2 diabetes mellitus with hyperglycemia - Unspecified abdominal pain - Flank Pain - unable to urinate and back pain Plus 18 More Visits INPATIENT VISIT TRACKING (12 MO.) 04/22/2023 00:28 [facility] [place] TYPE: Observation COMPLAINT: - HHS DIAGNOSES: - Acute pancreatitis without necrosis or infection, unspecified - Allergy status to other antibiotic agents - Allergy status to other drugs, medicaments and biological substances - Allergy status to penicillin - Allergy status to sulfonamides - Chronic kidney disease, unspecified - Hypertensive chronic kidney disease with stage 1 through stage 4 chronic kidney disease, or unspecified chronic kidney disease - Hypo-osmolality and hyponatremia - skilled nursing (current) use of insulin - Other 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 (current) drug therapy - Type 1 diabetes mellitus with diabetic chronic kidney disease - Type 1 diabetes mellitus with hyperglycemia 04/09/2023 01:31 [facility] [place] TYPE: Observation COMPLAINT: - HYPEROSMOLAR HYPERGLYCEMIA DIAGNOSES: - Allergy status to narcotic agent - Allergy status to other antibiotic agents - Allergy status to sulfonamides - Type 1 diabetes mellitus with hyperglycemia - Unspecified abdominal pain 01/03/2023 20:28 [facility] [place] TYPE: Observation [...] kidney disease - Hypokalemia - Hypokalemia - surface plate finisher (current) use of insulin - skilled nursing (current) use of insulin - Other dental procedure status - Other dental procedure status - Other barkeep (current) drug therapy - Other barkeep (current) drug therapy - Personal history of [...] - Urinary tract infection, site not specified [email or web address]
[2023-05-05 21:47] LABS: BILIRUBIN, URINE NEGATIVE (negative); BLOOD/HGB, URINE TRACE-I (Negative); KETONE, URINE TRACE (Negative); LEUK ESTERASE, URINE NEGATIVE (negative); NITRITE, URINE NEGATIVE (negative)
[2023-05-05 21:53] LABS: EPITHELIAL CELLS, URINE SQUAMOUS 2+ /lpf (0-1+)
[2023-05-05 21:54] LABS: BACTERIA, URINE RARE /hpf (negative); CASTS, URINE NONE SEEN \\lpf; CRYSTALS, URINE NONE SEEN (0-1+); REFLEX CULTURE, URINE No (No)
[2023-05-05] MEDS ORDERED: PYRIDIUM100 MG PO (22:45)
[2023-05-05 22:51] VITALS: BP 136/106
== END 2023-05-05 22:54 | disposition home or self-care (01) ==
LOC: ED 21:18
PROVIDERS: Internal Medicine
DX: R30.0 Dysuria (principal); R10.9 Unspecified abdominal pain; I12.9 Hypertensive chronic kidney disease with stage 1 through stage 4 chronic kidney disease, or unspecified chronic kidney disease; E11.22 Type 2 diabetes mellitus with diabetic chronic kidney disease; N18.9 Chronic kidney disease, unspecified; Z88.2 Allergy status to sulfonamides; Z88.1 Allergy status to other antibiotic agents; Z88.5 Allergy status to narcotic agent; Z88.8 Allergy status to other drugs, medicaments and biological substances; Z88.0 Allergy status to penicillin; Z79.4 Long term (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; Z79.899 Other long term (current) 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
CPT/HCPCS: 80053; 81001; 83690; 84703; 85025; A9270

== ENCOUNTER 2023-05-07 18:28 | Observation (INO) | payer OTHER ==
[~2023-05-07] VITALS: Ht 149.9 cm; Wt 39.0 kg
--- OUTSIDE RECORDS SUMMARY | ~2023-05-07 | XMS | Continuity of Care Document ---
Demographics + + + | Address | [address] | | | [place] [address] | + + + | Preferred Language | Unknown | + + + | Marital Status | | + + + | Jew Affiliation | Unknown | + + + | Race | or | + + + | Ethnic Group | Not or | + + + Author + + + | Author | [facility] | + + + | Organization | [facility] | + + + | Address | [address] [place] [address] | | | [place] [address] | + + + | Phone | | + + + Care Team Providers + + + + | Care Brim Presser Name | Role | Phone | + + + + Unavailable | Unavailable | + + + + Unavailable | Unavailable | + + + + Unavailable | Unavailable | + + + + Unavailable | Unavailable | + + + + Allergies and Intolerances + + + + + + | date | description | facility | reaction | severity | + + + + + + | (no date) | Lisinopril | [facility] | (no reaction) | (no severity) | [facility] | | + + + + + + | (no date) | Vancomycin | [facility] | (no reaction) | (no severity) | | [facility] | | | + + + + + + | (no date) | vancomycin | [facility] | (no reaction) | (no severity) | | [facility] | | | + + + + + + | (no date) | Urticaria | [facility] | (no reaction) | (no severity) | [facility] | | + + + + + + | (no date) | Headache | [facility] | (no reaction) | (no severity) | [facility] | | + + + + + + | (no date) | Mild | [facility] | (no reaction) | (no severity) | [facility] | | | + + + + + + | (no date) | Clindamycin | [facility] | (no reaction) | (no severity) | [facility] | | + + + + + + | (no date) | clindamycin | [facility] | (no reaction) | (no severity) | [facility] | | + + + + + + | (no date) | Rash | [facility] | (no reaction) | (no severity) | [facility] | | + + + + + + | (no date) | Amoxicillin | [facility] | (no reaction) | (no severity) | [facility] | | + + + + + + | (no date) | Facial | [facility] | (no reaction) | (no severity) | | | swelling | [facility] | | | + + + + + + | (no date) | Lisinopril | [facility] | (no reaction) | (no severity) | [facility] | | | + + + + + + | (no date) | lisinopril | [facility] | (no reaction) | (no severity) | [facility] | | + + + + + + | (no date) | Hydromorphone | [facility] | (no reaction) | (no severity) | [facility] | | + + + + + + | (no date) | Vancomycin | [facility] | (no reaction) | (no severity) | | [facility] | | + + + + + + | (no date) | Clindamycin | [facility] | (no reaction) | (no severity) | | [facility] | | + + + + + + | (no date) | Fentanyl | [facility] | (no reaction) | (no severity) | | [facility] | | + + + + + + | (no date) | Morphine | [facility] | (no reaction) | (no severity) | | [facility] | | + + + + + + | (no date) | Clindamycin | [facility] | (no reaction) | (no severity) | | [facility] | | + + + + + + | (no date) | Hydromorphone | [facility] | (no reaction) | (no severity) | | [facility] | | + + + + + + | (no date) | Itching | [facility] | (no reaction) | (no severity) | | [facility] | | | + + + + + + | (no date) | Fentanyl | [facility] | (no reaction) | (no severity) | | [facility] | | | + + + + + + | (no date) | Vancomycin | [facility] | (no reaction) | (no severity) | | [facility] | | | + + + + + + | (no date) | Morphine | [facility] | (no reaction) | (no severity) | | [facility] | | | + + + + + + | (no date) | morphine | [facility] | (no reaction) | (no severity) | | [facility] | | | + + + + + + | (no date) | Amoxicillin | [facility] | (no reaction) | (no severity) | | [facility] | | | + + + + + + | (no date) | amoxicillin | [facility] | (no reaction) | (no severity) | | [facility] | | | + + + + + + | (no date) | Morphine | [facility] | (no reaction) | (no severity) | | [facility] | | | + + + + + + | (no date) | Amoxicillin | [facility] | (no reaction) | (no severity) | | [facility] | | | + + + + + + | (no date) | Lisinopril | [facility] | (no reaction) | (no severity) | | [facility] | | | + + + + + + | (no date) | Sulfa | [facility] | (no reaction) | (no severity) | | | (Sulfonamide | | | | | | Antibiotics) | | | | + + + + + + | (no date) | lisinopril | [facility] | (no reaction) | (no severity) | + + + + + + | (no date) | morphine | [facility] | (no reaction) | (no severity) | + + + + + + | (no date) | clindamycin | [facility] | (no reaction) | (no severity) | + + + + + + | (no date) | fentanyl | [facility] | (no reaction) | (no severity) | + + + + + + | (no date) | amoxicillin | [facility] | (no reaction) | (no severity) | + + + + + + | (no date) | hydromorphone | [facility] | (no reaction) | (no severity) | + + + + + + | (no date) | vancomycin | [facility] | (no reaction) | (no severity) | + + + + + + | (no date) | Hydromorphone | [facility] | (no reaction) | (no severity) | [facility] | | | + + + + + + | (no date) | Fentanyl | [facility] | (no reaction) | (no severity) | | [facility] | | | + + + + + + Encounters No information. Functional Status No information. Immunizations + + + + | date | description | facility | + + + + | 2022-03-22 00:00 | No vaccine administered | [facility] | + + + + Medications + + + + | date | description | facility | + + + + | 2021-01-18 00:00 | FAMOTIDINE | [facility] | + + + + | 2021-01-18 00:00 | FAMOTIDINE | [facility] | + + + + | 2022-03-22 00:00 | FAMOTIDINE | [facility] | + + + + | 2022-03-23 00:00 | FAMOTIDINE | [facility] | + + + + | 2022-03-25 00:00 | FAMOTIDINE | [facility] | + + + + | 2022-03-27 00:00 | FAMOTIDINE | [facility] | + + + + | 2022-03-28 00:00 | FAMOTIDINE | [facility] | + + + + | 2022-05-23 00:00 | FAMOTIDINE | [facility] | + + + + | 2022-06-18 00:00 | FAMOTIDINE | [facility] | + + + + | 2022-06-22 00:00 | FAMOTIDINE | [facility] | + + + + | 2022-07-03 00:00 | FAMOTIDINE | [facility] | + + + + | 2022-07-08 00:00 | FAMOTIDINE | [facility] | + + + + | 2022-07-29 00:00 | FAMOTIDINE | [facility] | + + + + | 2022-08-03 00:00 | FAMOTIDINE | [facility] | + + + + | 2022-08-05 00:00 | FAMOTIDINE | [facility] | + + + + | 2022-08-17 00:00 | FAMOTIDINE | [facility] | + + + + | 2022-09-14 00:00 | FAMOTIDINE | [facility] | + + + + | 2022-09-23 00:00 | FAMOTIDINE | [facility] | + + + + | 2022-10-08 00:00 | FAMOTIDINE | [facility] | + + + + | 2022-10-11 00:00 | FAMOTIDINE | [facility] | + + + + | 2022-10-30 00:00 | FAMOTIDINE | [facility] | + + + + | 2022-11-24 00:00 | FAMOTIDINE | [facility] | + + + + | 2022-12-10 00:00 | FAMOTIDINE | [facility] | + + + + | 2023-01-03 00:00 | FAMOTIDINE | [facility] | + + + + | 2023-01-05 00:00 | FAMOTIDINE | [facility] | + + + + | 2023-01-21 00:00 | FAMOTIDINE | [facility] | + + + + | 2023-01-27 00:00 | FAMOTIDINE | [facility] | + + + + | 2023-02-02 00:00 | FAMOTIDINE | [facility] | + + + + | 2023-02-11 00:00 | FAMOTIDINE | [facility] | + + + + | 2023-02-23 00:00 | FAMOTIDINE | [facility] | + + + + | 2023-03-05 00:00 | FAMOTIDINE | [facility] | + + + + | 2023-03-12 00:00 | FAMOTIDINE | [facility] | + + + + | 2023-03-20 00:00 | FAMOTIDINE | [facility] | + + + + | 2023-04-08 00:00 | FAMOTIDINE | [facility] | + + + + | 2023-04-09 00:00 | FAMOTIDINE | [facility] | + + + + | 2023-05-05 00:00 | FAMOTIDINE | [facility] | + + + + | 2021-01-18 00:00 | famotidine 20 MG Oral | [facility] | | | Tablet [Pepcid] | | + + + + | 2022-03-22 00:00 | famotidine 20 MG Oral | [facility] | | | Tablet [Pepcid] | | + + + + | 2022-03-07 00:00 | ONDANSETRON | [facility] | + + + + | 2022-07-03 00:00 | ONDANSETRON | [facility] | + + + + | 2022-09-23 00:00 | ONDANSETRON | [facility] | + + + + | 2022-10-06 00:00 | ONDANSETRON | [facility] | + + + + | 2022-03-07 00:00 | ondansetron 4 MG | [facility] | | | Disintegrating Oral Tablet | | + + + + | 2018-10-19 00:00 | ONDANSETRON HCL | [facility] | + + + + | 2018-10-19 00:00 | ONDANSETRON HCL | [facility] | + + + + | 2021-01-18 00:00 | ONDANSETRON HCL | [facility] | + + + + | 2021-01-18 00:00 | ONDANSETRON HCL | [facility] | + + + + | 2022-03-23 00:00 | ONDANSETRON HCL | [facility] | + + + + | 2022-03-25 00:00 | ONDANSETRON HCL | [facility] | + + + + | 2022-03-27 00:00 | ONDANSETRON HCL | [facility] | + + + + | 2022-03-28 00:00 | ONDANSETRON HCL | [facility] | + + + + | 2022-06-18 00:00 | ONDANSETRON HCL | [facility] | + + + + | 2022-06-22 00:00 | ONDANSETRON HCL | [facility] | + + + + | 2022-07-03 00:00 | ONDANSETRON HCL | [facility] | + + + + | 2022-07-08 00:00 | ONDANSETRON HCL | [facility] | + + + + | 2022-07-29 00:00 | ONDANSETRON HCL | [facility] | + + + + | 2022-08-03 00:00 | ONDANSETRON HCL | [facility] | + + + + | 2022-08-05 00:00 | ONDANSETRON HCL | [facility] | + + + + | 2022-08-17 00:00 | ONDANSETRON HCL | [facility] | + + + + | 2022-09-14 00:00 | ONDANSETRON HCL | [facility] | + + + + | 2022-09-23 00:00 | ONDANSETRON HCL | [facility] | + + + + | 2022-10-08 00:00 | ONDANSETRON HCL | [facility] | + + + + | 2022-10-11 00:00 | ONDANSETRON HCL | [facility] | + + + + | 2022-10-30 00:00 | ONDANSETRON HCL | [facility] | + + + + | 2022-11-24 00:00 | ONDANSETRON HCL | [facility] | + + + + | 2022-12-10 00:00 | ONDANSETRON HCL | [facility] | + + + + | 2023-01-03 00:00 | ONDANSETRON HCL | [facility] | + + + + | 2023-01-05 00:00 | ONDANSETRON HCL | [facility] | + + + + | 2023-01-21 00:00 | ONDANSETRON HCL | [facility] | + + + + | 2023-01-27 00:00 | ONDANSETRON HCL | [facility] | + + + + | 2023-02-02 00:00 | ONDANSETRON HCL | [facility] | + + + + | 2023-02-11 00:00 | ONDANSETRON HCL | [facility] | + + + + | 2023-02-23 00:00 | ONDANSETRON HCL | [facility] | + + + + | 2023-03-05 00:00 | ONDANSETRON HCL | [facility] | + + + + | 2023-03-12 00:00 | ONDANSETRON HCL | [facility] | + + + + | 2023-03-20 00:00 | ONDANSETRON HCL | [facility] | + + + + | 2023-04-08 00:00 | ONDANSETRON HCL | [facility] | + + + + | 2023-04-09 00:00 | ONDANSETRON HCL | [facility] | + + + + | 2023-05-05 00:00 | ONDANSETRON HCL | [facility] | + + + + | 2018-10-19 00:00 | ondansetron 4 MG Oral | [facility] | | | Tablet [Zofran] | | + + + + | 2021-01-18 00:00 | ondansetron 4 MG Oral | [facility] | | | Tablet [Zofran] | | + + + + | 2022-03-22 00:00 | ondansetron 4 MG Oral | [facility] | | | Tablet [Zofran] | | + + + + | 2022-03-18 00:00 | OXYCODONE HCL | [facility] | + + + + | 2022-03-18 00:00 | oxycodone hydrochloride 5 | [facility] | | | MG Oral Tablet | | + + + + | 2022-07-03 00:00 | NAPROXEN | [facility] | + + + + | 2022-07-03 00:00 | NAPROXEN | [facility] | + + + + | 2023-05-05 00:00 | PHENAZOPYRIDINE HCL | [facility] | + + + + | 2021-03-01 00:00 | PHENAZOPYRIDINE HCL | [facility] | + + + + | 2021-03-01 00:00 | PHENAZOPYRIDINE HCL | [facility] | + + + + | 2021-07-14 00:00 | PHENAZOPYRIDINE HCL | [facility] | + + + + | 2021-07-14 00:00 | PHENAZOPYRIDINE HCL | [facility] | + + + + | 2021-03-01 00:00 | phenazopyridine | [facility] | | | hydrochloride 200 MG Oral | | | | Tablet [Pyridium] | | + + + + | 2021-07-14 00:00 | phenazopyridine | [facility] | | | hydrochloride 200 MG Oral | | | | Tablet [Pyridium] | | + + + + | 2022-03-22 00:00 | [place] 28 Day [facility] | [facility] | + + + + | 2022-03-23 00:00 | NORGESTIMATE-ETHINYL | [facility] | | | ESTRADIOL | | + + + + | 2022-03-25 00:00 | NORGESTIMATE-ETHINYL | [facility] | | | ESTRADIOL | | + + + + | 2022-03-27 00:00 | NORGESTIMATE-ETHINYL | [facility] | | | ESTRADIOL | | + + + + | 2022-03-28 00:00 | NORGESTIMATE-ETHINYL | [facility] | | | ESTRADIOL | | + + + + | 2022-06-18 00:00 | NORGESTIMATE-ETHINYL | [facility] | | | ESTRADIOL | | + + + + | 2022-06-22 00:00 | NORGESTIMATE-ETHINYL | [facility] | | | ESTRADIOL | | + + + + | 2022-07-03 00:00 | NORGESTIMATE-ETHINYL | [facility] | | | ESTRADIOL | | + + + + | 2022-07-08 00:00 | NORGESTIMATE-ETHINYL | [facility] | | | ESTRADIOL | | + + + + | 2022-07-29 00:00 | NORGESTIMATE-ETHINYL | [facility] | | | ESTRADIOL | | + + + + | 2022-08-03 00:00 | NORGESTIMATE-ETHINYL | [facility] | | | ESTRADIOL | | + + + + | 2022-08-05 00:00 | NORGESTIMATE-ETHINYL | [facility] | | | ESTRADIOL | | + + + + | 2022-08-17 00:00 | NORGESTIMATE-ETHINYL | [facility] | | | ESTRADIOL | | + + + + | 2022-09-14 00:00 | NORGESTIMATE-ETHINYL | [facility] | | | ESTRADIOL | | + + + + | 2022-09-23 00:00 | NORGESTIMATE-ETHINYL | [facility] | | | ESTRADIOL | | + + + + | 2022-10-08 00:00 | NORGESTIMATE-ETHINYL | [facility] | | | ESTRADIOL | | + + + + | 2022-10-11 00:00 | NORGESTIMATE-ETHINYL | [facility] | | | ESTRADIOL | | + + + + | 2022-10-30 00:00 | NORGESTIMATE-ETHINYL | [facility] | | | ESTRADIOL | | + + + + | 2022-11-24 00:00 | NORGESTIMATE-ETHINYL | [facility] | | | ESTRADIOL | | + + + + | 2022-12-10 00:00 | NORGESTIMATE-ETHINYL | [facility] | | | ESTRADIOL | | + + + + | 2023-01-03 00:00 | NORGESTIMATE-ETHINYL | [facility] | | | ESTRADIOL | | + + + + | 2023-01-05 00:00 | NORGESTIMATE-ETHINYL | [facility] | | | ESTRADIOL | | + + + + | 2023-01-21 00:00 | NORGESTIMATE-ETHINYL | [facility] | | | ESTRADIOL | | + + + + | 2023-01-27 00:00 | NORGESTIMATE-ETHINYL | [facility] | | | ESTRADIOL | | + + + + | 2023-02-02 00:00 | NORGESTIMATE-ETHINYL | [facility] | | | ESTRADIOL | | + + + + | 2023-02-11 00:00 | NORGESTIMATE-ETHINYL | [facility] | | | ESTRADIOL | | + + + + | 2023-02-23 00:00 | NORGESTIMATE-ETHINYL | [facility] | | | ESTRADIOL | | + + + + | 2023-03-05 00:00 | NORGESTIMATE-ETHINYL | [facility] | | | ESTRADIOL | | + + + + | 2023-03-12 00:00 | NORGESTIMATE-ETHINYL | [facility] | | | ESTRADIOL | | + + + + | 2023-03-20 00:00 | NORGESTIMATE-ETHINYL | [facility] | | | ESTRADIOL | | + + + + | 2023-04-08 00:00 | NORGESTIMATE-ETHINYL | [facility] | | | ESTRADIOL | | + + + + | 2023-04-09 00:00 | NORGESTIMATE-ETHINYL | [facility] | | | ESTRADIOL | | + + + + | 2023-05-05 00:00 | NORGESTIMATE-ETHINYL | [facility] | | | ESTRADIOL | | + + + + | 2022-03-23 00:00 | ERGOCALCIFEROL (VITAMIN | [facility] | | | D2) | | + + + + | 2022-03-25 00:00 | ERGOCALCIFEROL (VITAMIN | [facility] | | | D2) | | + + + + | 2022-03-27 00:00 | ERGOCALCIFEROL (VITAMIN | [facility] | | | D2) | | + + + + | 2022-03-28 00:00 | ERGOCALCIFEROL (VITAMIN | [facility] | | | D2) | | + + + + | 2022-06-18 00:00 | ERGOCALCIFEROL (VITAMIN | [facility] | | | D2) | | + + + + | 2022-06-22 00:00 | ERGOCALCIFEROL (VITAMIN | [facility] | | | D2) | | + + + + | 2022-07-03 00:00 | ERGOCALCIFEROL (VITAMIN | [facility] | | | D2) | | + + + + | 2022-07-08 00:00 | ERGOCALCIFEROL (VITAMIN | [facility] | | | D2) | | + + + + | 2022-07-29 00:00 | ERGOCALCIFEROL (VITAMIN | [facility] | | | D2) | | + + + + | 2022-08-03 00:00 | ERGOCALCIFEROL (VITAMIN | [facility] | | | D2) | | + + + + | 2022-08-05 00:00 | ERGOCALCIFEROL (VITAMIN | [facility] | | | D2) | | + + + + | 2022-08-17 00:00 | ERGOCALCIFEROL (VITAMIN | [facility] | | | D2) | | + + + + | 2022-09-14 00:00 | ERGOCALCIFEROL (VITAMIN | [facility] | | | D2) | | + + + + | 2022-09-23 00:00 | ERGOCALCIFEROL (VITAMIN | [facility] | | | D2) | | + + + + | 2022-10-08 00:00 | ERGOCALCIFEROL (VITAMIN | [facility] | | | D2) | | + + + + | 2022-10-11 00:00 | ERGOCALCIFEROL (VITAMIN | [facility] | | | D2) | | + + + + | 2022-10-30 00:00 | ERGOCALCIFEROL (VITAMIN | [facility] | | | D2) | | + + + + | 2022-11-24 00:00 | ERGOCALCIFEROL (VITAMIN | [facility] | | | D2) | | + + + + | 2022-12-10 00:00 | ERGOCALCIFEROL (VITAMIN | [facility] | | | D2) | | + + + + | 2023-01-03 00:00 | ERGOCALCIFEROL (VITAMIN | [facility] | | | D2) | | + + + + | 2023-01-05 00:00 | ERGOCALCIFEROL (VITAMIN | [facility] | | | D2) | | + + + + | 2023-01-21 00:00 | ERGOCALCIFEROL (VITAMIN | [facility] | | | D2) | | + + + + | 2023-01-27 00:00 | ERGOCALCIFEROL (VITAMIN | [facility] | | | D2) | | + + + + | 2023-02-02 00:00 | ERGOCALCIFEROL (VITAMIN | [facility] | | | D2) | | + + + + | 2023-02-11 00:00 | ERGOCALCIFEROL (VITAMIN | [facility] | | | D2) | | + + + + | 2023-02-23 00:00 | ERGOCALCIFEROL (VITAMIN | [facility] | | | D2) | | + + + + | 2023-03-05 00:00 | ERGOCALCIFEROL (VITAMIN | [facility] | | | D2) | | + + + + | 2023-03-12 00:00 | ERGOCALCIFEROL (VITAMIN | [facility] | | | D2) | | + + + + | 2023-03-20 00:00 | ERGOCALCIFEROL (VITAMIN | [facility] | | | D2) | | + + + + | 2023-04-08 00:00 | ERGOCALCIFEROL (VITAMIN | [facility] | | | D2) | | + + + + | 2023-04-09 00:00 | ERGOCALCIFEROL (VITAMIN | [facility] | | | D2) | | + + + + | 2023-05-05 00:00 | ERGOCALCIFEROL (VITAMIN | [facility] | | | D2) | | + + + + | 2022-03-22 00:00 | Ergocalciferol (Vitamin | [facility] | | | D2) | | + + + + | 2022-03-22 00:00 | ergocalciferol 1.25 MG | [facility] | | | Oral Capsule | | + + + + | 2022-03-22 00:00 | Mesalamine | [facility] | + + + + | 2022-03-22 00:00 | mesalamine 400 MG Delayed | [facility] | | | Release Oral Capsule | | | | [Delzicol] | | + + + + | 2023-03-12 00:00 | DOXYCYCLINE HYCLATE | [facility] | + + + + | 2023-03-12 00:00 | DOXYCYCLINE HYCLATE | [facility] | + + + + | 2022-08-03 00:00 | INSULIN LISPRO | [facility] | + + + + | 2022-08-03 00:00 | INSULIN LISPRO | [facility] | + + + + | 2022-06-22 00:00 | Insulin Lispro | [facility] | + + + + | 2022-07-03 00:00 | Insulin Lispro | [facility] | + + + + | 2022-07-08 00:00 | Insulin Lispro | [facility] | + + + + | 2022-07-29 00:00 | Insulin Lispro | [facility] | + + + + | 2022-08-03 00:00 | Insulin Lispro | [facility] | + + + + | 2022-08-05 00:00 | Insulin Lispro | [facility] | + + + + | 2023-05-05 00:00 | Insulin Lispro | [facility] | + + + + | 2022-03-22 00:00 | 3 ML insulin lispro 100 | [facility] | | | UNT/ML Pen Injector | | | | [Humalog] | | + + + + | 2022-03-23 00:00 | INSULIN LISPRO | [facility] | + + + + | 2022-03-25 00:00 | INSULIN LISPRO | [facility] | + + + + | 2022-03-27 00:00 | INSULIN LISPRO | [facility] | + + + + | 2022-03-28 00:00 | INSULIN LISPRO | [facility] | + + + + | 2022-06-18 00:00 | INSULIN LISPRO | [facility] | + + + + | 2022-03-22 00:00 | 3 ML insulin aspart, human | [facility] | | | 100 UNT/ML Pen Injector | | | | [NovoLog] | | + + + + | 2022-03-23 00:00 | INSULIN ASPART | [facility] | + + + + | 2022-03-25 00:00 | INSULIN ASPART | [facility] | + + + + | 2022-03-27 00:00 | INSULIN ASPART | [facility] | + + + + | 2022-03-28 00:00 | INSULIN ASPART | [facility] | + + + + | 2022-06-18 00:00 | INSULIN ASPART | [facility] | + + + + | 2022-06-22 00:00 | INSULIN ASPART | [facility] | + + + + | 2022-07-03 00:00 | INSULIN ASPART | [facility] | + + + + | 2022-07-08 00:00 | INSULIN ASPART | [facility] | + + + + | 2022-07-29 00:00 | INSULIN ASPART | [facility] | + + + + | 2022-08-03 00:00 | INSULIN ASPART | [facility] | + + + + | 2022-08-05 00:00 | INSULIN ASPART | [facility] | + + + + | 2022-08-17 00:00 | INSULIN ASPART | [facility] | + + + + | 2022-09-14 00:00 | INSULIN ASPART | [facility] | + + + + | 2022-09-23 00:00 | INSULIN ASPART | [facility] | + + + + | 2022-10-08 00:00 | INSULIN ASPART | [facility] | + + + + | 2022-10-11 00:00 | INSULIN ASPART | [facility] | + + + + | 2022-10-30 00:00 | INSULIN ASPART | [facility] | + + + + | 2022-11-24 00:00 | INSULIN ASPART | [facility] | + + + + | 2022-12-10 00:00 | INSULIN ASPART | [facility] | + + + + | 2023-01-03 00:00 | INSULIN ASPART | [facility] | + + + + | 2023-01-05 00:00 | INSULIN ASPART | [facility] | + + + + | 2023-01-21 00:00 | INSULIN ASPART | [facility] | + + + + | 2023-01-27 00:00 | INSULIN ASPART | [facility] | + + + + | 2023-02-02 00:00 | INSULIN ASPART | [facility] | + + + + | 2023-02-11 00:00 | INSULIN ASPART | [facility] | + + + + | 2023-02-23 00:00 | INSULIN ASPART | [facility] | + + + + | 2023-03-05 00:00 | INSULIN ASPART | [facility] | + + + + | 2023-03-12 00:00 | INSULIN ASPART | [facility] | + + + + | 2023-03-20 00:00 | INSULIN ASPART | [facility] | + + + + | 2023-04-08 00:00 | INSULIN ASPART | [facility] | + + + + | 2023-04-09 00:00 | INSULIN ASPART | [facility] | + + + + | 2023-05-05 00:00 | INSULIN ASPART | [facility] | + + + + | 2023-01-21 00:00 | CEPHALEXIN | [facility] | + + + + | 2022-03-23 00:00 | ESTRADIOL | [facility] [facility] | + + + + | 2022-03-25 00:00 | ESTRADIOL | [facility] | + + + + | 2022-03-27 00:00 | ESTRADIOL | [facility] | + + + + | 2022-03-28 00:00 | ESTRADIOL | [facility] | + + + + | 2022-06-18 00:00 | ESTRADIOL | [facility] | + + + + | 2022-06-22 00:00 | ESTRADIOL | [facility] | + + + + | 2022-07-03 00:00 | ESTRADIOL | [facility] | + + + + | 2022-07-08 00:00 | ESTRADIOL | [facility] | + + + + | 2022-07-29 00:00 | ESTRADIOL | [facility] | + + + + | 2022-08-03 00:00 | ESTRADIOL | [facility] | + + + + | 2022-08-05 00:00 | ESTRADIOL | [facility] | + + + + | 2022-08-17 00:00 | ESTRADIOL | [facility] | + + + + | 2022-09-14 00:00 | ESTRADIOL | [facility] | + + + + | 2022-09-23 00:00 | ESTRADIOL | [facility] | + + + + | 2022-10-08 00:00 | ESTRADIOL | [facility] | + + + + | 2022-10-11 00:00 | ESTRADIOL | [facility] | + + + + | 2022-10-30 00:00 | ESTRADIOL | [facility] | + + + + | 2022-11-24 00:00 | ESTRADIOL | [facility] | + + + + | 2022-12-10 00:00 | ESTRADIOL | [facility] | + + + + | 2023-01-03 00:00 | ESTRADIOL | [facility] | + + + + | 2023-01-05 00:00 | ESTRADIOL | [facility] | + + + + | 2023-01-21 00:00 | ESTRADIOL | [facility] | + + + + | 2023-01-27 00:00 | ESTRADIOL | [facility] | + + + + | 2023-02-02 00:00 | ESTRADIOL | [facility] | + + + + | 2023-02-11 00:00 | ESTRADIOL | [facility] | + + + + | 2023-02-23 00:00 | ESTRADIOL | [facility] | + + + + | 2023-03-05 00:00 | ESTRADIOL | [facility] | + + + + | 2023-03-12 00:00 | ESTRADIOL | [facility] | + + + + | 2023-03-20 00:00 | ESTRADIOL | [facility] | + + + + | 2023-04-08 00:00 | ESTRADIOL | [facility] | + + + + | 2023-04-09 00:00 | ESTRADIOL | [facility] | + + + + | 2023-05-05 00:00 | ESTRADIOL | [facility] | + + + + | 2022-03-22 00:00 | estradiol 2 MG Oral Tablet | [facility] | | | | | + + + + | 2022-10-08 00:00 | NAPROXEN | [facility] | + + + + | 2021-07-31 00:00 | OMEPRAZOLE | [facility] | + + + + | 2021-07-31 00:00 | OMEPRAZOLE | [facility] | + + + + | 2021-07-31 00:00 | omeprazole 20 MG Delayed | [facility] | | | Release Oral Capsule | | + + + + | 2023-03-12 00:00 | ONDANSETRON HCL | [facility] | + + + + | 2023-03-12 00:00 | ONDANSETRON HCL | [facility] | + + + + | 2022-06-22 00:00 | CEFDINIR | [facility] | + + + + | 2022-06-22 00:00 | CEFDINIR | [facility] | + + + + | 2022-09-14 00:00 | Metoprolol Succinate | [facility] | + + + + | 2022-09-23 00:00 | Metoprolol Succinate | [facility] | + + + + | 2022-10-08 00:00 | Metoprolol Succinate | [facility] | + + + + | 2022-10-11 00:00 | Metoprolol Succinate | [facility] | + + + + | 2022-10-30 00:00 | Metoprolol Succinate | [facility] | + + + + | 2022-11-24 00:00 | Metoprolol Succinate | [facility] | + + + + | 2022-12-10 00:00 | Metoprolol Succinate | [facility] | + + + + | 2023-01-03 00:00 | Metoprolol Succinate | [facility] | + + + + | 2023-01-05 00:00 | Metoprolol Succinate | [facility] | + + + + | 2023-01-21 00:00 | Metoprolol Succinate | [facility] | + + + + | 2023-01-27 00:00 | Metoprolol Succinate | [facility] | + + + + | 2023-02-02 00:00 | Metoprolol Succinate | [facility] | + + + + | 2023-02-11 00:00 | Metoprolol Succinate | [facility] | + + + + | 2023-02-23 00:00 | Metoprolol Succinate | [facility] | + + + + | 2023-03-05 00:00 | Metoprolol Succinate | [facility] | + + + + | 2023-03-12 00:00 | Metoprolol Succinate | [facility] | + + + + | 2023-03-20 00:00 | Metoprolol Succinate | [facility] | + + + + | 2023-04-08 00:00 | Metoprolol Succinate | [facility] | + + + + | 2023-04-09 00:00 | Metoprolol Succinate | [facility] | + + + + | 2022-03-23 00:00 | ESTRADIOL | [facility] | + + + + | 2022-03-25 00:00 | ESTRADIOL | [facility] | + + + + | 2022-03-27 00:00 | ESTRADIOL | [facility] | + + + + | 2022-03-28 00:00 | ESTRADIOL | [facility] | + + + + | 2022-06-18 00:00 | ESTRADIOL | [facility] | + + + + | 2022-06-22 00:00 | ESTRADIOL | [facility] | + + + + | 2022-07-03 00:00 | ESTRADIOL | [facility] | + + + + | 2022-07-08 00:00 | ESTRADIOL | [facility] | + + + + | 2022-07-29 00:00 | ESTRADIOL | [facility] | + + + + | 2022-08-03 00:00 | ESTRADIOL | [facility] | + + + + | 2022-08-05 00:00 | ESTRADIOL | [facility] | + + + + | 2022-08-17 00:00 | ESTRADIOL | [facility] | + + + + | 2022-09-14 00:00 | ESTRADIOL | [facility] | + + + + | 2022-09-23 00:00 | ESTRADIOL | [facility] | + + + + | 2022-10-08 00:00 | ESTRADIOL | [facility] | + + + + | 2022-10-11 00:00 | ESTRADIOL | [facility] | + + + + | 2022-10-30 00:00 | ESTRADIOL | [facility] | + + + + | 2022-11-24 00:00 | ESTRADIOL | [facility] | + + + + | 2022-12-10 00:00 | ESTRADIOL | [facility] | + + + + | 2023-01-03 00:00 | ESTRADIOL | [facility] | + + + + | 2023-01-05 00:00 | ESTRADIOL | [facility] | + + + + | 2023-01-21 00:00 | ESTRADIOL | [facility] | + + + + | 2023-01-27 00:00 | ESTRADIOL | [facility] | + + + + | 2023-02-02 00:00 | ESTRADIOL | [facility] | + + + + | 2023-02-11 00:00 | ESTRADIOL | [facility] | + + + + | 2023-02-23 00:00 | ESTRADIOL | [facility] | + + + + | 2023-03-05 00:00 | ESTRADIOL | [facility] | + + + + | 2023-03-12 00:00 | ESTRADIOL | [facility] | + + + + | 2023-03-20 00:00 | ESTRADIOL | [facility] | + + + + | 2023-04-08 00:00 | ESTRADIOL | [facility] | + + + + | 2023-04-09 00:00 | ESTRADIOL | [facility] | + + + + | 2023-05-05 00:00 | ESTRADIOL | [facility] | + + + + | 2022-03-22 00:00 | estradiol 1 MG Oral Tablet | [facility] | | | [Estrace] | | + + + + | 2022-10-06 00:00 | FLUCONAZOLE | [facility] | + + + + | 2021-07-31 00:00 | METOCLOPRAMIDE HCL | [facility] | + + + + | 2021-07-31 00:00 | METOCLOPRAMIDE HCL | [facility] | + + + + | 2021-07-31 00:00 | metoclopramide 10 MG Oral | [facility] | | | Tablet [Reglan] | | + + + + | 2022-06-22 00:00 | Cholecalciferol (Vitamin | [facility] | | | D3) | | + + + + | 2022-07-03 00:00 | Cholecalciferol (Vitamin | [facility] | | | D3) | | + + + + | 2022-07-08 00:00 | Cholecalciferol (Vitamin | [facility] | | | D3) | | + + + + | 2022-07-29 00:00 | Cholecalciferol (Vitamin | [facility] | | | D3) | | + + + + | 2022-08-03 00:00 | Cholecalciferol (Vitamin | [facility] | | | D3) | | + + + + | 2022-08-05 00:00 | Cholecalciferol (Vitamin | [facility] | | | D3) | | + + + + | 2022-03-23 00:00 | ASCORBIC ACID | [facility] | + + + + | 2022-03-25 00:00 | ASCORBIC ACID | [facility] | + + + + | 2022-03-27 00:00 | ASCORBIC ACID | [facility] | + + + + | 2022-03-28 00:00 | ASCORBIC ACID | [facility] | + + + + | 2022-06-18 00:00 | ASCORBIC ACID | [facility] | + + + + | 2022-06-22 00:00 | ASCORBIC ACID | [facility] | + + + + | 2022-07-03 00:00 | ASCORBIC ACID | [facility] | + + + + | 2022-07-08 00:00 | ASCORBIC ACID | [facility] | + + + + | 2022-07-29 00:00 | ASCORBIC ACID | [facility] | + + + + | 2022-08-03 00:00 | ASCORBIC ACID | [facility] | + + + + | 2022-08-05 00:00 | ASCORBIC ACID | [facility] | + + + + | 2022-08-17 00:00 | ASCORBIC ACID | [facility] | + + + + | 2022-09-14 00:00 | ASCORBIC ACID | [facility] | + + + + | 2022-09-23 00:00 | ASCORBIC ACID | [facility] | + + + + | 2022-10-08 00:00 | ASCORBIC ACID | [facility] | + + + + | 2022-10-11 00:00 | ASCORBIC ACID | [facility] | + + + + | 2022-10-30 00:00 | ASCORBIC ACID | [facility] | + + + + | 2022-11-24 00:00 | ASCORBIC ACID | [facility] | + + + + | 2022-12-10 00:00 | ASCORBIC ACID | [facility] | + + + + | 2023-01-03 00:00 | ASCORBIC ACID | [facility] | + + + + | 2023-01-05 00:00 | ASCORBIC ACID | [facility] | + + + + | 2023-01-21 00:00 | ASCORBIC ACID | [facility] | + + + + | 2023-01-27 00:00 | ASCORBIC ACID | [facility] | + + + + | 2023-02-02 00:00 | ASCORBIC ACID | [facility] | + + + + | 2023-02-11 00:00 | ASCORBIC ACID | [facility] | + + + + | 2023-02-23 00:00 | ASCORBIC ACID | [facility] | + + + + | 2023-03-05 00:00 | ASCORBIC ACID | [facility] | + + + + | 2023-03-12 00:00 | ASCORBIC ACID | [facility] | + + + + | 2023-03-20 00:00 | ASCORBIC ACID | [facility] | + + + + | 2023-04-08 00:00 | ASCORBIC ACID | [facility] | + + + + | 2023-04-09 00:00 | ASCORBIC ACID | [facility] | + + + + | 2023-05-05 00:00 | ASCORBIC ACID | [facility] | + + + + | 2022-03-22 00:00 | ascorbic acid 500 MG Oral | [facility] | | | Tablet | | + + + + | 2022-03-23 00:00 | AMLODIPINE BESYLATE | [facility] | + + + + | 2022-03-25 00:00 | AMLODIPINE BESYLATE | [facility] | + + + + | 2022-03-27 00:00 | AMLODIPINE BESYLATE | [facility] | + + + + | 2022-03-28 00:00 | AMLODIPINE BESYLATE | [facility] | + + + + | 2022-06-18 00:00 | AMLODIPINE BESYLATE | [facility] | + + + + | 2022-06-22 00:00 | AMLODIPINE BESYLATE | [facility] | + + + + | 2022-07-03 00:00 | AMLODIPINE BESYLATE | [facility] | + + + + | 2022-07-08 00:00 | AMLODIPINE BESYLATE | [facility] | + + + + | 2022-07-29 00:00 | AMLODIPINE BESYLATE | [facility] | + + + + | 2022-08-03 00:00 | AMLODIPINE BESYLATE | [facility] | + + + + | 2022-08-05 00:00 | AMLODIPINE BESYLATE | [facility] | + + + + | 2022-08-17 00:00 | AMLODIPINE BESYLATE | [facility] | + + + + | 2022-09-14 00:00 | AMLODIPINE BESYLATE | [facility] | + + + + | 2022-09-23 00:00 | AMLODIPINE BESYLATE | [facility] | + + + + | 2022-10-08 00:00 | AMLODIPINE BESYLATE | [facility] | + + + + | 2022-10-11 00:00 | AMLODIPINE BESYLATE | [facility] | + + + + | 2022-10-30 00:00 | AMLODIPINE BESYLATE | [facility] | + + + + | 2022-11-24 00:00 | AMLODIPINE BESYLATE | [facility] | + + + + | 2022-12-10 00:00 | AMLODIPINE BESYLATE | [facility] | + + + + | 2023-01-03 00:00 | AMLODIPINE BESYLATE | [facility] | + + + + | 2023-01-05 00:00 | AMLODIPINE BESYLATE | [facility] | + + + + | 2023-01-21 00:00 | AMLODIPINE BESYLATE | [facility] | + + + + | 2023-01-27 00:00 | AMLODIPINE BESYLATE | [facility] | + + + + | 2023-02-02 00:00 | AMLODIPINE BESYLATE | [facility] | + + + + | 2023-02-11 00:00 | AMLODIPINE BESYLATE | [facility] | + + + + | 2023-02-23 00:00 | AMLODIPINE BESYLATE | [facility] | + + + + | 2023-03-05 00:00 | AMLODIPINE BESYLATE | [facility] | + + + + | 2023-03-12 00:00 | AMLODIPINE BESYLATE | [facility] | + + + + | 2023-03-20 00:00 | AMLODIPINE BESYLATE | [facility] | + + + + | 2023-04-08 00:00 | AMLODIPINE BESYLATE | [facility] | + + + + | 2023-04-09 00:00 | AMLODIPINE BESYLATE | [facility] | + + + + | 2023-05-05 00:00 | AMLODIPINE BESYLATE | [facility] | + + + + | 2022-03-22 00:00 | amlodipine 2.5 MG Oral | [facility] | | | Tablet | | + + + + | 2021-03-01 00:00 | CEPHALEXIN | [facility] | + + + + | 2021-03-01 00:00 | CEPHALEXIN | [facility] | + + + + | 2021-07-14 00:00 | CEPHALEXIN | [facility] | + + + + | 2021-07-14 00:00 | CEPHALEXIN | [facility] | + + + + | 2021-10-25 00:00 | CEPHALEXIN | [facility] | + + + + | 2021-10-25 00:00 | CEPHALEXIN | [facility] | + + + + | 2022-02-14 00:00 | CEPHALEXIN | [facility] | + + + + | 2022-02-14 00:00 | CEPHALEXIN | [facility] | + + + + | 2021-03-01 00:00 | cephalexin 500 MG Oral | [facility] | | | Capsule | | + + + + | 2021-07-14 00:00 | cephalexin 500 MG Oral | [facility] | | | Capsule | | + + + + | 2021-10-25 00:00 | cephalexin 500 MG Oral | [facility] | | | Capsule | | + + + + | 2022-02-14 00:00 | cephalexin 500 MG Oral | [facility] | | | Capsule | | + + + + | 2023-05-05 00:00 | FERROUS SULFATE | [facility] | + + + + | 2022-03-22 00:00 | Ferrous Sulfate | [facility] | + + + + | 2022-03-22 00:00 | ferrous sulfate 325 MG | [facility] | | | Oral Tablet | | + + + + | 2022-02-13 00:00 | ONDANSETRON | [facility] | + + + + | 2022-02-13 00:00 | ONDANSETRON | [facility] | + + + + | 2023-01-05 00:00 | ONDANSETRON | [facility] | + + + + | 2023-03-20 00:00 | ONDANSETRON | [facility] | + + + + | 2023-03-20 00:00 | ONDANSETRON | [facility] | + + + + | 2023-05-05 00:00 | ONDANSETRON | [facility] | + + + + | 2022-02-13 00:00 | ondansetron 8 MG | [facility] | | | Disintegrating Oral Tablet | | + + + + | 2022-03-18 00:00 | PROCHLORPERAZINE MALEATE | [facility] | + + + + | 2022-03-18 00:00 | prochlorperazine 5 MG Oral | [facility] | | | Tablet | | + + + + | 2022-03-23 00:00 | ACETAMINOPHEN | [facility] | + + + + | 2022-03-25 00:00 | ACETAMINOPHEN | [facility] | + + + + | 2022-03-27 00:00 | ACETAMINOPHEN | [facility] | + + + + | 2022-03-28 00:00 | ACETAMINOPHEN | [facility] | + + + + | 2022-03-22 00:00 | acetaminophen 325 MG Oral | [facility] | | | Tablet | | + + + + | 2022-03-23 00:00 | LISINOPRIL | [facility] | + + + + | 2022-03-25 00:00 | LISINOPRIL | [facility] | + + + + | 2022-03-27 00:00 | LISINOPRIL | [facility] | + + + + | 2022-03-28 00:00 | LISINOPRIL | [facility] | + + + + | 2022-06-18 00:00 | LISINOPRIL | [facility] | + + + + | 2022-06-22 00:00 | LISINOPRIL | [facility] | + + + + | 2022-07-03 00:00 | LISINOPRIL | [facility] | + + + + | 2022-07-08 00:00 | LISINOPRIL | [facility] | + + + + | 2022-07-29 00:00 | LISINOPRIL | [facility] | + + + + | 2022-08-03 00:00 | LISINOPRIL | [facility] | + + + + | 2022-08-05 00:00 | LISINOPRIL | [facility] | + + + + | 2022-08-17 00:00 | LISINOPRIL | [facility] | + + + + | 2022-09-14 00:00 | LISINOPRIL | [facility] | + + + + | 2022-09-23 00:00 | LISINOPRIL | [facility] | + + + + | 2022-10-08 00:00 | LISINOPRIL | [facility] | + + + + | 2022-10-11 00:00 | LISINOPRIL | [facility] | + + + + | 2022-10-30 00:00 | LISINOPRIL | [facility] | + + + + | 2022-11-24 00:00 | LISINOPRIL | [facility] | + + + + | 2022-12-10 00:00 | LISINOPRIL | [facility] | + + + + | 2023-01-03 00:00 | LISINOPRIL | [facility] | + + + + | 2023-01-05 00:00 | LISINOPRIL | [facility] | + + + + | 2023-01-21 00:00 | LISINOPRIL | [facility] | + + + + | 2023-01-27 00:00 | LISINOPRIL | [facility] | + + + + | 2023-02-02 00:00 | LISINOPRIL | [facility] | + + + + | 2023-02-11 00:00 | LISINOPRIL | [facility] | + + + + | 2023-02-23 00:00 | LISINOPRIL | [facility] | + + + + | 2023-03-05 00:00 | LISINOPRIL | [facility] | + + + + | 2023-03-12 00:00 | LISINOPRIL | [facility] | + + + + | 2023-03-20 00:00 | LISINOPRIL | [facility] | + + + + | 2023-04-08 00:00 | LISINOPRIL | [facility] | + + + + | 2023-04-09 00:00 | LISINOPRIL | [facility] | + + + + | 2023-05-05 00:00 | LISINOPRIL | [facility] | + + + + | 2022-03-22 00:00 | lisinopril 10 MG Oral | [facility] | | | Tablet | | + + + + | 2022-03-22 00:00 | METRONIDAZOLE | [facility] | + + + + | 2022-03-22 00:00 | metronidazole 250 MG Oral | [facility] | | | Tablet | | + + + + | 2022-06-22 00:00 | FENOFIBRATE | [facility] | + + + + | 2022-07-03 00:00 | FENOFIBRATE | [facility] | + + + + | 2022-07-08 00:00 | FENOFIBRATE | [facility] | + + + + | 2022-07-29 00:00 | FENOFIBRATE | [facility] | + + + + | 2022-08-03 00:00 | FENOFIBRATE | [facility] | + + + + | 2022-08-05 00:00 | FENOFIBRATE | [facility] | + + + + | 2022-08-17 00:00 | FENOFIBRATE | [facility] | + + + + | 2022-09-14 00:00 | FENOFIBRATE | [facility] | + + + + | 2022-09-23 00:00 | FENOFIBRATE | [facility] | + + + + | 2022-10-08 00:00 | FENOFIBRATE | [facility] | + + + + | 2022-10-11 00:00 | FENOFIBRATE | [facility] | + + + + | 2022-10-30 00:00 | FENOFIBRATE | [facility] | + + + + | 2022-11-24 00:00 | FENOFIBRATE | [facility] | + + + + | 2022-12-10 00:00 | FENOFIBRATE | [facility] | + + + + | 2023-01-03 00:00 | FENOFIBRATE | [facility] | + + + + | 2023-01-05 00:00 | FENOFIBRATE | [facility] | + + + + | 2023-01-21 00:00 | FENOFIBRATE | [facility] | + + + + | 2023-01-27 00:00 | FENOFIBRATE | [facility] | + + + + | 2023-02-02 00:00 | FENOFIBRATE | [facility] | + + + + | 2023-02-11 00:00 | FENOFIBRATE | [facility] | + + + + | 2023-02-23 00:00 | FENOFIBRATE | [facility] | + + + + | 2023-03-05 00:00 | FENOFIBRATE | [facility] | + + + + | 2023-03-12 00:00 | FENOFIBRATE | [facility] | + + + + | 2023-03-20 00:00 | FENOFIBRATE | [facility] | + + + + | 2023-04-08 00:00 | FENOFIBRATE | [facility] | + + + + | 2023-04-09 00:00 | FENOFIBRATE | [facility] | + + + + | 2022-03-23 00:00 | Fenofibrate | [facility] | | | Nanocrystallized | | + + + + | 2022-03-25 00:00 | Fenofibrate | [facility] | | | Nanocrystallized | | + + + + | 2022-03-27 00:00 | Fenofibrate | [facility] | | | Nanocrystallized | | + + + + | 2022-03-28 00:00 | Fenofibrate | [facility] | | | Nanocrystallized | | + + + + | 2022-06-18 00:00 | Fenofibrate | [facility] | | | Nanocrystallized | | + + + + | 2022-06-22 00:00 | Fenofibrate | [facility] | | | Nanocrystallized | | + + + + | 2022-07-03 00:00 | Fenofibrate | [facility] | | | Nanocrystallized | | + + + + | 2022-07-08 00:00 | Fenofibrate | [facility] | | | Nanocrystallized | | + + + + | 2022-07-29 00:00 | Fenofibrate | [facility] | | | Nanocrystallized | | + + + + | 2022-08-03 00:00 | Fenofibrate | [facility] | | | Nanocrystallized | | + + + + | 2022-08-05 00:00 | Fenofibrate | [facility] | | | Nanocrystallized | | + + + + | 2022-08-17 00:00 | Fenofibrate | [facility] | | | Nanocrystallized | | + + + + | 2022-09-14 00:00 | Fenofibrate | [facility] | | | Nanocrystallized | | + + + + | 2022-09-23 00:00 | Fenofibrate | [facility] | | | Nanocrystallized | | + + + + | 2022-10-08 00:00 | Fenofibrate | [facility] | | | Nanocrystallized | | + + + + | 2022-10-11 00:00 | Fenofibrate | [facility] | | | Nanocrystallized | | + + + + | 2022-10-30 00:00 | Fenofibrate | [facility] | | | Nanocrystallized | | + + + + | 2022-11-24 00:00 | Fenofibrate | [facility] | | | Nanocrystallized | | + + + + | 2022-12-10 00:00 | Fenofibrate | [facility] | | | Nanocrystallized | | + + + + | 2023-01-03 00:00 | Fenofibrate | [facility] | | | Nanocrystallized | | + + + + | 2023-01-05 00:00 | Fenofibrate | [facility] | | | Nanocrystallized | | + + + + | 2023-01-21 00:00 | Fenofibrate | [facility] | | | Nanocrystallized | | + + + + | 2023-01-27 00:00 | Fenofibrate | [facility] | | | Nanocrystallized | | + + + + | 2023-02-02 00:00 | Fenofibrate | [facility] | | | Nanocrystallized | | + + + + | 2023-02-11 00:00 | Fenofibrate | [facility] | | | Nanocrystallized | | + + + + | 2023-02-23 00:00 | Fenofibrate | [facility] | | | Nanocrystallized | | + + + + | 2023-03-05 00:00 | Fenofibrate | [facility] | | | Nanocrystallized | | + + + + | 2023-03-12 00:00 | Fenofibrate | [facility] | | | Nanocrystallized | | + + + + | 2023-03-20 00:00 | Fenofibrate | [facility] | | | Nanocrystallized | | + + + + | 2023-04-08 00:00 | Fenofibrate | [facility] | | | Nanocrystallized | | + + + + | 2023-04-09 00:00 | Fenofibrate | [facility] | | | Nanocrystallized | | + + + + | 2023-05-05 00:00 | Fenofibrate | [facility] | | | Nanocrystallized | | + + + + | 2022-03-22 00:00 | fenofibrate 160 MG Oral | [facility] | | | Tablet | | + + + + | 2023-05-05 00:00 | FENOFIBRATE | [facility] | + + + + | 2016-02-03 00:00 | CIPROFLOXACIN HCL/DEXAMETH | [facility] | | | | | + + + + | 2016-02-03 00:00 | CIPROFLOXACIN HCL/DEXAMETH | [facility] | | | | | + + + + | 2016-02-03 00:00 | ciprofloxacin 3 MG/ML / | [facility] | | | dexamethasone 1 MG/ML Otic | | | | Suspensio | | + + + + | 2022-03-18 00:00 | FENOFIBRATE | [facility] | | | NANOCRYSTALLIZED | | + + + + | 2022-03-18 00:00 | fenofibrate 48 MG Oral | [facility] | | | Tablet | | + + + + | 2022-09-23 00:00 | NITROFURANTOIN MONOHYD | [facility] | | | MACROCR | | + + + + | 2022-03-22 00:00 | 3 ML insulin glargine 100 | [facility] | | | UNT/ML Pen Injector | | | | [Lantus] | | + + + + | 2022-03-23 00:00 | INSULIN | [facility] | | | [facility] | | + + + + | 2022-03-25 00:00 | INSULIN | [facility] | | | [place],[facility].REC.ANLOG | | + + + + | 2022-03-27 00:00 | INSULIN | [facility] | | | [place],[facility].REC.ANLOG | | + + + + | 2022-03-28 00:00 | INSULIN | [facility] | | | GLARGINE,HUM.REC.ANLOG | | + + + + | 2022-06-18 00:00 | INSULIN | [facility] | | | GLARGINE,HUM.REC.ANLOG | | + + + + | 2022-06-22 00:00 | INSULIN | [facility] | | | GLARGINE,HUM.REC.ANLOG | | + + + + | 2022-07-03 00:00 | INSULIN | [facility] | | | GLARGINE,HUM.REC.ANLOG | | + + + + | 2022-07-08 00:00 | INSULIN | [facility] | | | GLARGINE,HUM.REC.ANLOG | | + + + + | 2022-07-29 00:00 | INSULIN | [facility] | | | [place] | | + + + + | 2022-08-03 00:00 | INSULIN | [facility] | | | [place] | | + + + + | 2022-08-05 00:00 | INSULIN | [facility] | | | [place]UM[place] | | + + + + | 2022-08-17 00:00 | INSULIN | [facility] | | | [place] | | + + + + | 2022-09-14 00:00 | INSULIN | [facility] | | | GLARGINE,HUM.REC.ANLOG | | + + + + | 2022-09-23 00:00 | INSULIN | [facility] | | | GLARGINE,HUM.REC.ANLOG | | + + + + | 2022-10-08 00:00 | INSULIN | [facility] | | | GLARG[place],[facility].REC.ANLOG | | + + + + | 2022-10-11 00:00 | INSULIN | [facility] | | | GLARGINE,HUM.REC.ANLOG | | + + + + | 2022-10-30 00:00 | INSULIN | [facility] | | | GLARGINE,HUM.REC.ANLOG | | + + + + | 2022-11-24 00:00 | INSULIN | [facility] | | | GLARGINE,HUM.REC.ANLOG | | + + + + | 2022-12-10 00:00 | INSULIN | [facility] | | | GLARGINE,HUM.REC.ANLOG | | + + + + | 2023-01-03 00:00 | INSULIN | [facility] | | | GLARGINE,HUM.REC.ANLOG | | + + + + | 2023-01-05 00:00 | INSULIN | [facility] | | | GLARGINE,HUM.REC.ANLOG | | + + + + | 2023-01-21 00:00 | INSULIN | [facility] | | | [facility] | | + + + + | 2023-01-27 00:00 | INSULIN | [facility] | | | HUM. [place] | | + + + + | 2023-02-02 00:00 | INSULIN | [facility] | | | HUM. [place] | | + + + + | 2023-02-11 00:00 | INSULIN | [facility] | | | [place] | | + + + + | 2023-02-23 00:00 | INSULIN | [facility] | | | GLARGINE,HUM.REC.ANLOG | | + + + + | 2023-03-05 00:00 | INSULIN | [facility] | | | GLARGINE,HUM.REC.ANLOG | | + + + + | 2023-03-12 00:00 | INSULIN | [facility] | | | GLARGINE,HUM.REC.ANLOG | | + + + + | 2023-03-20 00:00 | INSULIN | [facility] | | | GLARGINE,HUM.REC.ANLOG | | + + + + | 2023-04-08 00:00 | INSULIN | [facility] | | | GLARGINE,HUM.REC.ANLOG | | + + + + | 2023-04-09 00:00 | INSULIN | [facility] | | | GLAALESSIA,HUM.REC.ANLOG | | + + + + | 2023-05-05 00:00 | INSULIN | [facility] | | | [place],HUM.REC.ANLOG | | + + + + | 2022-03-22 00:00 | 3 ML insulin detemir 100 | [facility] | | | UNT/ML Pen Injector | | | | [Levemir] | | + + + + | 2022-03-23 00:00 | INSULIN DETEMIR | [facility] | + + + + | 2022-03-25 00:00 | INSULIN DETEMIR | [facility] | + + + + | 2022-03-27 00:00 | INSULIN DETEMIR | [facility] | + + + + | 2022-03-28 00:00 | INSULIN DETEMIR | [facility] | + + + + | 2022-06-18 00:00 | INSULIN DETEMIR | [facility] | + + + + | 2022-06-22 00:00 | INSULIN DETEMIR | [facility] | + + + + | 2022-07-03 00:00 | INSULIN DETEMIR | [facility] | + + + + | 2022-07-08 00:00 | INSULIN DETEMIR | [facility] | + + + + | 2022-07-29 00:00 | INSULIN DETEMIR | [facility] | + + + + | 2022-08-03 00:00 | INSULIN DETEMIR | [facility] | + + + + | 2022-08-05 00:00 | INSULIN DETEMIR | [facility] | + + + + | 2022-08-17 00:00 | INSULIN DETEMIR | [facility] | + + + + | 2022-09-14 00:00 | INSULIN DETEMIR | [facility] | + + + + | 2022-09-23 00:00 | INSULIN DETEMIR | [facility] | + + + + | 2022-10-08 00:00 | INSULIN DETEMIR | [facility] | + + + + | 2022-10-11 00:00 | INSULIN DETEMIR | [facility] | + + + + | 2022-10-30 00:00 | INSULIN DETEMIR | [facility] | + + + + | 2022-11-24 00:00 | INSULIN DETEMIR | [facility] | + + + + | 2022-12-10 00:00 | INSULIN DETEMIR | [facility] | + + + + | 2023-01-03 00:00 | INSULIN DETEMIR | [facility] | + + + + | 2023-01-05 00:00 | INSULIN DETEMIR | [facility] | + + + + | 2023-01-21 00:00 | INSULIN DETEMIR | [facility] | + + + + | 2023-01-27 00:00 | INSULIN DETEMIR | [facility] | + + + + | 2023-02-02 00:00 | INSULIN DETEMIR | [facility] | + + + + | 2023-02-11 00:00 | INSULIN DETEMIR | [facility] | + + + + | 2023-02-23 00:00 | INSULIN DETEMIR | [facility] | + + + + | 2023-03-05 00:00 | INSULIN DETEMIR | [facility] | + + + + | 2023-03-12 00:00 | INSULIN DETEMIR | [facility] | + + + + | 2023-03-20 00:00 | INSULIN DETEMIR | [facility] | + + + + | 2023-04-08 00:00 | INSULIN DETEMIR | [facility] | + + + + | 2023-04-09 00:00 | INSULIN DETEMIR | [facility] | + + + + | 2023-05-05 00:00 | INSULIN DETEMIR | [facility] | + + + + | 2021-01-22 00:00 | HYDROCODONE | [facility] | | | BIT/ACETAMINOPHEN | | + + + + | 2021-01-22 00:00 | HYDROCODONE | [facility] | | | BIT/ACETAMINOPHEN | | + + + + | 2022-12-10 00:00 | HYDROCODONE | [facility] | | | BIT/ACETAMINOPHEN | | + + + + | 2021-01-22 00:00 | acetaminophen 325 MG / | [facility] | | | hydrocodone bitartrate 5 MG | | | | Oral Tabl | | + + + + | 2022-03-23 00:00 | ROSUVASTATIN CALCIUM | [facility] | + + + + | 2022-03-25 00:00 | ROSUVASTATIN CALCIUM | [facility] | + + + + | 2022-03-27 00:00 | ROSUVASTATIN CALCIUM | [facility] | + + + + | 2022-03-28 00:00 | ROSUVASTATIN CALCIUM | [facility] | + + + + | 2022-06-18 00:00 | ROSUVASTATIN CALCIUM | [facility] | + + + + | 2022-06-22 00:00 | ROSUVASTATIN CALCIUM | [facility] | + + + + | 2022-06-22 00:00 | ROSUVASTATIN CALCIUM | [facility] | + + + + | 2022-07-03 00:00 | ROSUVASTATIN CALCIUM | [facility] | + + + + | 2022-07-08 00:00 | ROSUVASTATIN CALCIUM | [facility] | + + + + | 2022-07-29 00:00 | ROSUVASTATIN CALCIUM | [facility] | + + + + | 2022-08-03 00:00 | ROSUVASTATIN CALCIUM | [facility] | + + + + | 2022-08-05 00:00 | ROSUVASTATIN CALCIUM | [facility] | + + + + | 2022-08-17 00:00 | ROSUVASTATIN CALCIUM | [facility] | + + + + | 2022-09-14 00:00 | ROSUVASTATIN CALCIUM | [facility] | + + + + | 2022-09-23 00:00 | ROSUVASTATIN CALCIUM | [facility] | + + + + | 2022-10-08 00:00 | ROSUVASTATIN CALCIUM | [facility] | + + + + | 2022-10-11 00:00 | ROSUVASTATIN CALCIUM | [facility] | + + + + | 2022-10-30 00:00 | ROSUVASTATIN CALCIUM | [facility] | + + + + | 2022-11-24 00:00 | ROSUVASTATIN CALCIUM | [facility] | + + + + | 2022-12-10 00:00 | ROSUVASTATIN CALCIUM | [facility] | + + + + | 2023-01-03 00:00 | ROSUVASTATIN CALCIUM | [facility] | + + + + | 2023-01-05 00:00 | ROSUVASTATIN CALCIUM | [facility] | + + + + | 2023-01-21 00:00 | ROSUVASTATIN CALCIUM | [facility] | + + + + | 2023-01-27 00:00 | ROSUVASTATIN CALCIUM | [facility] | + + + + | 2023-02-02 00:00 | ROSUVASTATIN CALCIUM | [facility] | + + + + | 2023-02-11 00:00 | ROSUVASTATIN CALCIUM | [facility] | + + + + | 2023-02-23 00:00 | ROSUVASTATIN CALCIUM | [facility] | + + + + | 2023-03-05 00:00 | ROSUVASTATIN CALCIUM | [facility] | + + + + | 2023-03-12 00:00 | ROSUVASTATIN CALCIUM | [facility] | + + + + | 2023-03-20 00:00 | ROSUVASTATIN CALCIUM | [facility] | + + + + | 2023-04-08 00:00 | ROSUVASTATIN CALCIUM | [facility] | + + + + | 2023-04-09 00:00 | ROSUVASTATIN CALCIUM | [facility] | + + + + | 2023-05-05 00:00 | ROSUVASTATIN CALCIUM | [facility] | + + + + | 2022-03-22 00:00 | rosuvastatin calcium 10 MG | [facility] | | | Oral Tablet [Crestor] | | + + + + | 2021-01-22 00:00 | TAMSULOSIN HCL | [facility] | + + + + | 2021-01-22 00:00 | TAMSULOSIN HCL | [facility] | + + + + | 2021-01-22 00:00 | tamsulosin hydrochloride | [facility] | | | 0.4 MG Oral Capsule | | | | [Flomax] | | + + + + | 2022-03-23 00:00 | LIPASE/PROTEASE/AMYLASE | [facility] | + + + + | 2022-03-25 00:00 | LIPASE/PROTEASE/AMYLASE | [facility] | + + + + | 2022-03-27 00:00 | LIPASE/PROTEASE/AMYLASE | [facility] | + + + + | 2022-03-28 00:00 | LIPASE/PROTEASE/AMYLASE | [facility] | + + + + | 2022-06-18 00:00 | LIPASE/PROTEASE/AMYLASE | [facility] | + + + + | 2022-06-22 00:00 | LIPASE/PROTEASE/AMYLASE | [facility] | + + + + | 2022-07-03 00:00 | LIPASE/PROTEASE/AMYLASE | [facility] | + + + + | 2022-07-08 00:00 | LIPASE/PROTEASE/AMYLASE | [facility] | + + + + | 2022-07-29 00:00 | LIPASE/PROTEASE/AMYLASE | [facility] | + + + + | 2022-08-03 00:00 | LIPASE/PROTEASE/AMYLASE | [facility] | + + + + | 2022-08-05 00:00 | LIPASE/PROTEASE/AMYLASE | [facility] | + + + + | 2022-08-17 00:00 | LIPASE/PROTEASE/AMYLASE | [facility] | + + + + | 2022-09-14 00:00 | LIPASE/PROTEASE/AMYLASE | [facility] | + + + + | 2022-09-23 00:00 | LIPASE/PROTEASE/AMYLASE | [facility] | + + + + | 2022-10-08 00:00 | LIPASE/PROTEASE/AMYLASE | [facility] | + + + + | 2022-10-11 00:00 | LIPASE/PROTEASE/AMYLASE | [facility] | + + + + | 2022-10-30 00:00 | LIPASE/PROTEASE/AMYLASE | [facility] | + + + + | 2022-11-24 00:00 | LIPASE/PROTEASE/AMYLASE | [facility] | + + + + | 2022-12-10 00:00 | LIPASE/PROTEASE/AMYLASE | [facility] | + + + + | 2023-01-03 00:00 | LIPASE/PROTEASE/AMYLASE | [facility] | + + + + | 2023-01-05 00:00 | LIPASE/PROTEASE/AMYLASE | [facility] | + + + + | 2023-01-21 00:00 | LIPASE/PROTEASE/AMYLASE | [facility] | + + + + | 2023-01-27 00:00 | LIPASE/PROTEASE/AMYLASE | [facility] | + + + + | 2023-02-02 00:00 | LIPASE/PROTEASE/AMYLASE | [facility] | + + + + | 2023-02-11 00:00 | LIPASE/PROTEASE/AMYLASE | [facility] | + + + + | 2023-02-23 00:00 | LIPASE/PROTEASE/AMYLASE | [facility] | + + + + | 2023-03-05 00:00 | LIPASE/PROTEASE/AMYLASE | [facility] | + + + + | 2023-03-12 00:00 | LIPASE/PROTEASE/AMYLASE | [facility] | + + + + | 2023-03-20 00:00 | LIPASE/PROTEASE/AMYLASE | [facility] | + + + + | 2023-04-08 00:00 | LIPASE/PROTEASE/AMYLASE | [facility] | + + + + | 2023-04-09 00:00 | LIPASE/PROTEASE/AMYLASE | [facility] | + + + + | 2023-05-05 00:00 | LIPASE/PROTEASE/AMYLASE | [facility] | + + + + | 2022-03-22 00:00 | amylase [id number] UNT / lipase | [facility] | | | 6000 UNT / protease [id number] | | | | UNT Del | | + + + + | 2023-05-05 00:00 | METOPROLOL SUCCINATE | [facility] | + + + + | 2023-01-05 00:00 | HYDROMORPHONE HCL | [facility] | + + + + | 2022-11-24 00:00 | DICYCLOMINE HCL | [facility] | + + + + | 2022-12-10 00:00 | DICYCLOMINE HCL | [facility] | + + + + | 2023-01-03 00:00 | DICYCLOMINE HCL | [facility] | + + + + | 2023-01-05 00:00 | DICYCLOMINE HCL | [facility] | + + + + | 2023-01-21 00:00 | DICYCLOMINE HCL | [facility] | + + + + | 2023-01-27 00:00 | DICYCLOMINE HCL | [facility] | + + + + | 2023-02-02 00:00 | DICYCLOMINE HCL | [facility] | + + + + | 2023-02-11 00:00 | DICYCLOMINE HCL | [facility] | + + + + | 2023-02-23 00:00 | DICYCLOMINE HCL | [facility] | + + + + | 2023-03-05 00:00 | DICYCLOMINE HCL | [facility] | + + + + | 2023-03-12 00:00 | DICYCLOMINE HCL | [facility] | + + + + | 2023-03-20 00:00 | DICYCLOMINE HCL | [facility] | + + + + | 2023-04-08 00:00 | DICYCLOMINE HCL | [facility] | + + + + | 2023-04-09 00:00 | DICYCLOMINE HCL | [facility] | + + + + | 2023-05-05 00:00 | DICYCLOMINE HCL | [facility] | + + + + Problems + + + + | date | description | facility | + + + + | 2014-05-31 00:00 | DKA (diabetic | [facility] | | | ketoacidoses) | | + + + + | 2014-05-31 00:00 | Sepsis | [facility] | + + + + | 2014-05-31 00:00 | Sepsis | [facility] | + + + + | 2014-05-31 00:00 | Diabetes mellitus with | [facility] | | | ketoacidosis | | + + + + | 2014-05-31 00:00 | Diabetes mellitus with | [facility] | | | ketoacidosis | | + + + + | 2014-05-31 00:00 | Dehydration | [facility] | + + + + | 2014-05-31 00:00 | Dehydration | [facility] | + + + + | 2016-02-03 00:00 | Bilateral otitis externa | [facility] | + + + + | 2016-02-03 00:00 | Bilateral otitis externa | [facility] | + + + + | 2016-02-03 00:00 | Acute otitis media of both | [facility] | | | ears with perforation | | + + + + | 2016-02-03 00:00 | Acute otitis media of both | [facility] | | | ears with perforation | | + + + + | 2018-01-03 00:00 | DKA (diabetic | [facility] | | | ketoacidoses) | | + + + + | 2018-01-03 00:00 | Diabetic ketoacidosis | [facility] | + + + + | 2018-01-03 00:00 | Diabetic ketoacidosis | [facility] | + + + + | 2018-01-03 00:00 | Hypertriglyceridemia | [facility] | + + + + | 2018-01-03 00:00 | Hypertriglyceridemia | [facility] | + + + + | 2018-01-03 00:00 | Hypokalemia | [facility] | + + + + | 2018-01-03 00:00 | Hypokalemia | [facility] | + + + + | 2018-01-03 00:00 | Pancreatitis | [facility] | + + + + | 2018-01-03 00:00 | Pancreatitis | [facility] | + + + + | 2018-03-14 00:00 | DKA, type 1 | [facility] | + + + + | 2018-03-14 00:00 | Type 1 diabetes mellitus | [facility] | | | with ketoacidosis | | + + + + | 2018-03-14 00:00 | Type 1 diabetes mellitus | [facility] | | | with ketoacidosis | | + + + + | 2019-03-18 00:00 | Chest wall pain | [facility] | + + + + | 2019-03-18 00:00 | Chest wall pain | [facility] | + + + + | 2021-01-20 00:00 | Urinary retention | [facility] | + + + + | 2021-01-20 00:00 | Retention of urine | [facility] | + + + + | 2021-01-20 00:00 | Retention of urine | [facility] | + + + + | 2021-01-20 00:00 | Hyperglycemia | [facility] | + + + + | 2021-01-20 00:00 | Hyperglycemia | [facility] | + + + + | 2021-01-29 00:00 | Encounter for medical | [facility] | | | screening examination | | + + + + | 2021-01-29 00:00 | Encounter for medical | [facility] | | | screening examination | | + + + + | 2021-01-29 00:00 | Encounter for Ellis | [facility] | | | catheter removal | | + + + + | 2021-01-29 00:00 | Encounter for Ellis | [facility] | | | catheter removal | | + + + + | 2021-02-02 00:00 | Abdominal pain | [facility] | + + + + | 2021-02-02 00:00 | Abdominal pain | [facility] | + + + + | 2021-02-02 00:00 | Nausea and vomiting | [facility] | + + + + | 2021-02-02 00:00 | Nausea and vomiting | [facility] | + + + + | 2021-03-01 00:00 | UTI (urinary tract | [facility] | | | infection) | | + + + + | 2021-03-01 00:00 | Urinary tract infection | [facility] | + + + + | 2021-03-01 00:00 | Urinary tract infection | [facility] | + + + + | 2021-07-21 00:00 | Acute chest wall pain | [facility] | + + + + | 2021-07-21 00:00 | Acute chest wall pain | [facility] | + + + + | 2021-07-31 00:00 | Acute gastritis | [facility] | + + + + | 2021-07-31 00:00 | Acute gastritis | [facility] | + + + + | 2021-07-31 11:38 | TYPE 1 DIABETES MELLITUS | [facility] | | | WITHOUT COMPLICATIONS | | + + + + | 2021-07-31 11:38 | PURE HYPERGLYCERIDEMIA | [facility] | + + + + | 2021-07-31 11:38 | HYPERLIPIDEMIA, | [facility] | | | UNSPECIFIED | | + + + + | 2021-07-31 11:38 | ACUTE GASTRITIS WITHOUT | [facility] | | | BLEEDING | | + + + + | 2021-07-31 11:38 | UNSPECIFIED ABDOMINAL PAIN | [facility] | | | | | + + + + | 2021-07-31 11:38 | OTHER USP (CURRENT) | [facility] | | | DRUG THERAPY | | + + + + | 2021-07-31 11:38 | PERSONAL HISTORY OF | [facility] | | | LEUKEMIA | | + + + + | 2021-07-31 11:38 | ALLERGY STATUS TO OTHER | [facility] | | | ANTIBIOTIC AGENTS STATUS | | + + + + | 2021-07-31 11:38 | ALLERGY STATUS TO | [facility] | | | SULFONAMIDES STATUS | | + + + + | 2021-07-31 11:38 | ALLERGY STATUS TO NARCOTIC | [facility] | | | AGENT STATUS | | + + + + | 2021-09-09 20:54 | TYPE 2 DIABETES MELLITUS | [facility] | | | WITHOUT COMPLICATIONS | | + + + + | 2021-09-09 20:54 | HYPERLIPIDEMIA, | [facility] | | | UNSPECIFIED | | + + + + | 2021-09-09 20:54 | OTHER CHEST PAIN | [facility] | + + + + | 2021-09-09 20:54 | USP (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 OF | [facility] | | | INSULIN | | + + + + | 2021-09-09 20:54 | OTHER YARD SWITCHER (CURRENT) | [facility] | | | DRUG THERAPY | | + + + + | 2021-09-09 20:54 | ALLERGY STATUS TO | [facility] | | | PENICILLIN | | + + + + | 2021-09-09 20:54 | ALLERGY STATUS TO OTHER | [facility] | | | ANTIBIOTIC AGENTS STATUS | | + + + + | 2021-09-09 20:54 | ALLERGY STATUS TO | [facility] | | | SULFONAMIDES STATUS | | + + + + | 2021-09-09 20:54 | ALLERGY STATUS TO NARCOTIC | [facility] | | | AGENT STATUS | | + + + + | 2021-09-27 00:00 | Allergic reaction caused | [facility] | | | by a drug | | + + + + | 2021-09-27 00:00 | Allergic reaction to drug | [facility] | + + + + | 2021-09-27 00:00 | Allergic reaction to drug | [facility] | + + + + | 2021-09-27 21:10 | TYPE 2 DIABETES MELLITUS W | [facility] | | | DIABETIC CHRONIC KIDNEY | | + + + + | 2021-09-27 21:10 | HYPERLIPIDEMIA, | [facility] | | | UNSPECIFIED | | + + + + | 2021-09-27 21:10 | CHRONIC KIDNEY DISEASE, | [facility] | | | UNSPECIFIED | | + + + + | 2021-09-27 21:10 | LOCALIZED SWELLING, MASS | [facility] | | | AND LUMP, HEAD | | + + + + | 2021-09-27 21:10 | ADVERSE EFFECT OF | [facility] | | | [id number] | | | | INHIBITORS, INIT | | + + + + | 2021-09-27 21:10 | YARD SWITCHER (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 OF | [facility] | | | INSULIN | | + + + + | 2021-09-27 21:10 | OTHER YARD SWITCHER (CURRENT) | [facility] | | | DRUG THERAPY | | + + + + | 2021-09-27 21:10 | ALLERGY STATUS TO | [facility] | | | PENICILLIN | | + + + + | 2021-09-27 21:10 | ALLERGY STATUS TO OTHER | [facility] | | | ANTIBIOTIC AGENTS STATUS | | + + + + | 2021-09-27 21:10 | ALLERGY STATUS TO | [facility] | | | SULFONAMIDES STATUS | | + + + + | 2021-09-27 21:10 | ALLERGY STATUS TO NARCOTIC | [facility] | | | AGENT STATUS | | + + + + | 2021-09-27 21:10 | ALLERGY STATUS TO OTH | [facility] | | | DRUG/MEDS/BIOL SUBST STATUS | | | | | | + + + + | 2021-10-24 21:04 | TYPE 2 DIABETES MELLITUS W | [facility] | | | DIABETIC CHRONIC KIDNEY | | + + + + | 2021-10-24 21:04 | HYPERLIPIDEMIA, | [facility] | | | UNSPECIFIED | | + + + + | 2021-10-24 21:04 | CHRONIC KIDNEY DISEASE, | [facility] | | | UNSPECIFIED | | + + + + | 2021-10-24 21:04 | URINARY TRACT INFECTION, | [facility] | | | SITE NOT SPECIFIED | | + + + + | 2021-10-24 21:04 | LEFT UPPER QUADRANT PAIN | [facility] | + + + + | 2021-10-24 21:04 | UNSPECIFIED ABDOMINAL PAIN | [facility] | | | | | + + + + | 2021-10-24 21:04 | USP (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 OF | [facility] | | | INSULIN | | + + + + | 2021-10-24 21:04 | OTHER YARD SWITCHER (CURRENT) | [facility] | | | DRUG THERAPY | | + + + + | 2021-10-24 21:04 | ALLERGY STATUS TO | [facility] | | | PENICILLIN | | + + + + | 2021-10-24 21:04 | ALLERGY STATUS TO OTHER | [facility] | | | ANTIBIOTIC AGENTS STATUS | | + + + + | 2021-10-24 21:04 | ALLERGY STATUS TO | [facility] | | | SULFONAMIDES STATUS | | + + + + | 2021-10-24 21:04 | ALLERGY STATUS TO NARCOTIC | [facility] | | | AGENT STATUS | | + + + + | 2021-11-02 23:59 | TYPE 2 DIABETES MELLITUS | [facility] | | | WITHOUT COMPLICATIONS | | + + + + | 2021-11-02 23:59 | HYPERLIPIDEMIA, | [facility] | | | UNSPECIFIED | | + + + + | 2021-11-02 23:59 | Essential (primary) | [facility] | | | hypertension | | + + + + | 2021-11-02 23:59 | OTHER CHEST PAIN | [facility] | + + + + | 2021-11-02 23:59 | USP (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 OF | [facility] | | | INSULIN | | + + + + | 2021-11-02 23:59 | OTHER USP (CURRENT) | [facility] | | | DRUG THERAPY | | + + + + | 2021-11-02 23:59 | ALLERGY STATUS TO | [facility] | | | PENICILLIN | | + + + + | 2021-11-02 23:59 | ALLERGY STATUS TO OTHER | [facility] | | | ANTIBIOTIC AGENTS STATUS | | + + + + | 2021-11-02 23:59 | ALLERGY STATUS TO | [facility] | | | SULFONAMIDES STATUS | | + + + + | 2021-11-02 23:59 | ALLERGY STATUS TO NARCOTIC | [facility] | | | AGENT STATUS | | + + + + | 2021-11-02 23:59 | ALLERGY STATUS TO OTH | [facility] | | | DRUG/MEDS/BIOL SUBST STATUS | | | | | | + + + + | 2021-11-08 00:00 | Lightheaded | [facility] | + + + + | 2021-11-08 00:00 | Dyspnea | [facility] | + + + + | 2021-11-08 00:00 | Dyspnea | [facility] | + + + + | 2021-11-08 00:00 | Non-cardiac chest pain | [facility] | + + + + | 2021-11-08 00:00 | Non-cardiac chest pain | [facility] | + + + + | 2021-11-08 00:00 | Lightheadedness | [facility] | + + + + | 2021-11-08 00:00 | Lightheadedness | [facility] | + + + + | 2021-11-08 00:36 | TYPE 2 DIABETES MELLITUS | [facility] | | | WITH KETOACIDOSIS WITHOUT | | + + + + | 2021-11-08 00:36 | TYPE 2 DIABETES MELLITUS W | [facility] | | | DIABETIC CHRONIC KIDNEY | | + + + + | 2021-11-08 00:36 | PURE HYPERCHOLESTEROLEMIA, | [facility] | | | UNSPECIFIED | | + + + + | 2021-11-08 00:36 | Essential (primary) | [facility] | | | hypertension | | + + + + | 2021-11-08 00:36 | HYPERTENSIVE CHRONIC | [facility] | | | KIDNEY DISEASE W [facility] | | | | 1-4/UNSP | | + + + + | 2021-11-08 00:36 | CHRONIC KIDNEY DISEASE, | [facility] | | | UNSPECIFIED | | + + + + | 2021-11-08 00:36 | DYSPNEA, UNSPECIFIED | [facility] | + + + + | 2021-11-08 00:36 | OTHER CHEST PAIN | [facility] | + + + + | 2021-11-08 00:36 | Dizziness and giddiness | [facility] | + + + + | 2021-11-08 00:36 | USP (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 OF | [facility] | | | ORAL HYPOGLYCEMIC DRUGS | | + + + + | 2021-11-08 00:36 | OTHER YARD SWITCHER (CURRENT) | [facility] | | | DRUG THERAPY | | + + + + | 2021-11-08 00:36 | ALLERGY STATUS TO | [facility] | | | PENICILLIN | | + + + + | 2021-11-08 00:36 | ALLERGY STATUS TO OTHER | [facility] | | | ANTIBIOTIC AGENTS STATUS | | + + + + | 2021-11-08 00:36 | ALLERGY STATUS TO | [facility] | | | SULFONAMIDES STATUS | | + + + + | 2021-11-08 00:36 | ALLERGY STATUS TO NARCOTIC | [facility] | | | AGENT STATUS | | + + + + | 2021-11-08 00:36 | ALLERGY STATUS TO OTH | [facility] | | | DRUG/MEDS/BIOL SUBST STATUS | | | | | | + + + + | 2021-11-26 22:29 | TYPE 2 DIABETES MELLITUS | [facility] | | | WITHOUT COMPLICATIONS | | + + + + | 2021-11-26 22:29 | HYPERLIPIDEMIA, | [facility] | | | UNSPECIFIED | | + + + + | 2021-11-26 22:29 | Essential (primary) | [facility] | | | hypertension | | + + + + | 2021-11-26 22:29 | DYSURIA | [facility] | + + + + | 2021-11-26 22:29 | YARD SWITCHER (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 OF | [facility] | | | INSULIN | | + + + + | 2021-11-26 22:29 | OTHER USP (CURRENT) | [facility] | | | DRUG THERAPY | | + + + + | 2021-11-26 22:29 | ALLERGY STATUS TO OTHER | [facility] | | | ANTIBIOTIC AGENTS STATUS | | + + + + | 2021-11-26 22:29 | ALLERGY STATUS TO | [facility] | | | SULFONAMIDES STATUS | | + + + + | 2021-11-26 22:29 | ALLERGY STATUS TO NARCOTIC | [facility] | | | AGENT STATUS | | + + + + | 2021-11-26 22:29 | ALLERGY STATUS TO OTH | [facility] | | | DRUG/MEDS/BIOL SUBST STATUS | | | | | | + + + + | 2021-11-27 00:00 | Insulin dependent diabetes | [facility] | | | mellitus | | + + + + | 2021-11-27 00:00 | Hypertension | [facility] | + + + + | 2021-11-27 00:00 | Hypertension | [facility] | + + + + | 2021-11-27 00:00 | Insulin dependent diabetes | [facility] | | | mellitus | | + + + + | 2021-11-27 00:00 | Resolved abdominal pain | [facility] | + + + + | 2021-11-27 00:00 | Resolved abdominal pain | [facility] | + + + + | 2021-12-04 20:12 | TYPE 2 DIABETES MELLITUS W | [facility] | | | DIABETIC CHRONIC KIDNEY | | + + + + | 2021-12-04 20:12 | MIXED HYPERLIPIDEMIA | [facility] | + + + + | 2021-12-04 20:12 | HORDEOLUM EXTERNUM LEFT | [facility] | | | LOWER EYELID | | + + + + | 2021-12-04 20:12 | OTHER SPECIFIED DISORDERS | [facility] | | | OF EYE AND ADNEXA | | + + + + | 2021-12-04 20:12 | UNSPECIFIED OTITIS | [facility] | | | EXTERNA, LEFT EAR | | + + + + | 2021-12-04 20:12 | HYPERTENSIVE CHRONIC | [facility] | | | KIDNEY DISEASE W STG | | | | 1-4/UNSP | | + + + + | 2021-12-04 20:12 | CHRONIC KIDNEY DISEASE, | [facility] | | | UNSPECIFIED | | + + + + | 2021-12-04 20:12 | USP (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 OF | [facility] | | | INSULIN | | + + + + | 2021-12-04 20:12 | OTHER YARD SWITCHER (CURRENT) | [facility] | | | DRUG THERAPY | | + + + + | 2021-12-04 20:12 | ALLERGY STATUS TO | [facility] | | | PENICILLIN | | + + + + | 2021-12-04 20:12 | ALLERGY STATUS TO OTHER | [facility] | | | ANTIBIOTIC AGENTS STATUS | | + + + + | 2021-12-04 20:12 | ALLERGY STATUS TO | [facility] | | | SULFONAMIDES STATUS | | + + + + | 2021-12-04 20:12 | ALLERGY STATUS TO OTH | [facility] | | | DRUG/MEDS/BIOL SUBST STATUS | | | | | | + + + + | 2021-12-05 00:00 | Hordeolum externum left | [facility] | | | lower eyelid | | + + + + | 2021-12-05 00:00 | Hordeolum externum of left | [facility] | | | lower eyelid | | + + + + | 2021-12-05 00:00 | Hordeolum externum of left | [facility] | | | lower eyelid | | + + + + | 2021-12-05 00:00 | Otitis externa | [facility] | + + + + | 2021-12-05 00:00 | Otitis externa | [facility] | + + + + | 2021-12-23 14:51 | TYPE 2 DIABETES MELLITUS | [facility] | | | WITHOUT COMPLICATIONS | | + + + + | 2021-12-23 14:51 | HYPERLIPIDEMIA, | [facility] | | | UNSPECIFIED | | + + + + | 2021-12-23 14:51 | Essential (primary) | [facility] | | | hypertension | | + + + + | 2021-12-23 14:51 | UNSPECIFIED ABDOMINAL PAIN | [facility] | | | | | + + + + | 2021-12-23 14:51 | YARD SWITCHER (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 OF | [facility] | | | INSULIN | | + + + + | 2021-12-23 14:51 | OTHER USP (CURRENT) | [facility] | | | DRUG THERAPY | | + + + + | 2021-12-23 14:51 | ALLERGY STATUS TO OTHER | [facility] | | | ANTIBIOTIC AGENTS STATUS | | + + + + | 2021-12-23 14:51 | ALLERGY STATUS TO | [facility] | | | SULFONAMIDES STATUS | | + + + + | 2021-12-23 14:51 | ALLERGY STATUS TO NARCOTIC | [facility] | | | AGENT STATUS | | + + + + | 2021-12-23 14:51 | ALLERGY STATUS TO OTH | [facility] | | | DRUG/MEDS/BIOL SUBST STATUS | | | | | | + + + + | 2022-02-07 23:34 | TYPE 2 DIABETES MELLITUS W | [facility] | | | DIABETIC CHRONIC KIDNEY | | + + + + | 2022-02-07 23:34 | TYPE 2 DIABETES MELLITUS | [facility] | | | WITHOUT COMPLICATIONS | | + + + + | 2022-02-07 23:34 | HYPERLIPIDEMIA, | [facility] | | | UNSPECIFIED | | + + + + | 2022-02-07 23:34 | HYPERTENSIVE CHRONIC | [facility] | | | KIDNEY DISEASE W STG | | | | 1-4/UNSP | | + + + + | 2022-02-07 23:34 | PAIN IN LEFT KNEE | [facility] | + + + + | 2022-02-07 23:34 | CHRONIC KIDNEY DISEASE, | [facility] | | | UNSPECIFIED | | + + + + | 2022-02-07 23:34 | CONTUSION OF LEFT KNEE, | [facility] | | | INITIAL ENCOUNTER | | + + + + | 2022-02-07 23:34 | FALL SAME LEV FROM | [facility] | | | SLIP/TRIP W/O STRIKE | | | | AGAINST OB | | + + + + | 2022-02-07 23:34 | USP (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 OF | [facility] | | | INSULIN | | + + + + | 2022-02-07 23:34 | OTHER USP (CURRENT) | [facility] | | | DRUG THERAPY | | + + + + | 2022-02-07 23:34 | ALLERGY STATUS TO | [facility] | | | PENICILLIN | | + + + + | 2022-02-07 23:34 | ALLERGY STATUS TO OTHER | [facility] | | | ANTIBIOTIC AGENTS STATUS | | + + + + | 2022-02-07 23:34 | ALLERGY STATUS TO | [facility] | | | SULFONAMIDES STATUS | | + + + + | 2022-02-07 23:34 | ALLERGY STATUS TO NARCOTIC | [facility] | | | AGENT STATUS | | + + + + | 2022-02-07 23:34 | ALLERGY STATUS TO OTH | [facility] | | | DRUG/MEDS/BIOL SUBST STATUS | | | | | | + + + + | 2022-02-08 00:00 | Contusion of left knee | [facility] | + + + + | 2022-02-08 00:00 | Contusion of left knee | [facility] | + + + + | 2022-02-13 20:21 | TYPE 1 DIABETES MELLITUS W | [facility] | | | DIABETIC CHRONIC KIDNEY | | + + + + | 2022-02-13 20:21 | HYPERLIPIDEMIA, | [facility] | | | UNSPECIFIED | | + + + + | 2022-02-13 20:21 | HYPERTENSIVE CHRONIC | [facility] | | | KIDNEY DISEASE W STG | | | | 1-4/UNSP | | + + + + | 2022-02-13 20:21 | ACUTE PANCREATITIS WITHOUT | [facility] | | | NECROSIS OR INFECTION, | | + + + + | 2022-02-13 20:21 | CHRONIC KIDNEY DISEASE, | [facility] | | | UNSPECIFIED | | + + + + | 2022-02-13 20:21 | URINARY TRACT INFECTION, | [facility] | | | SITE NOT SPECIFIED | | + + + + | 2022-02-13 20:21 | UNSPECIFIED ABDOMINAL PAIN | [facility] | | | | | + + + + | 2022-02-13 20:21 | USP (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 OF | [facility] | | | INSULIN | | + + + + | 2022-02-13 20:21 | OTHER YARD SWITCHER (CURRENT) | [facility] | | | DRUG THERAPY | | + + + + | 2022-02-13 20:21 | ALLERGY STATUS TO OTHER | [facility] | | | ANTIBIOTIC AGENTS STATUS | | + + + + | 2022-02-13 20:21 | ALLERGY STATUS TO | [facility] | | | SULFONAMIDES STATUS | | + + + + | 2022-02-13 20:21 | ALLERGY STATUS TO NARCOTIC | [facility] | | | AGENT STATUS | | + + + + | 2022-02-13 20:21 | ALLERGY STATUS TO OTH | [facility] | | | DRUG/MEDS/BIOL SUBST STATUS | | | | | | + + + + | 2022-02-17 00:00 | Hypoglycemia due to | [facility] | | | insulin | | + + + + | 2022-02-17 00:00 | Hypoglycemic reaction to | [facility] | | | insulin | | + + + + | 2022-02-17 00:00 | Hypoglycemic reaction to | [facility] | | | insulin | | + + + + | 2022-02-17 03:45 | TYPE 2 DIABETES MELLITUS W | [facility] | | | DIABETIC CHRONIC KIDNEY | | + + + + | 2022-02-17 03:45 | TYPE 2 DIABETES MELLITUS | [facility] | | | WITH HYPOGLYCEMIA WITHOUT | | + + + + | 2022-02-17 03:45 | HYPOGLYCEMIA, UNSPECIFIED | [facility] | + + + + | 2022-02-17 03:45 | HYPERTENSIVE CHRONIC | [facility] | | | KIDNEY DISEASE W STG | | | | 1-4/UNSP | | + + + + | 2022-02-17 03:45 | CHRONIC KIDNEY DISEASE, | [facility] | | | UNSPECIFIED | | + + + + | 2022-02-17 03:45 | ADVERSE EFFECT OF INSULIN | [facility] | | | AND ORAL HYPOGLYCEMIC DR | | + + + + | 2022-02-17 03:45 | USP (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 OF | [facility] | | | INSULIN | | + + + + | 2022-02-17 03:45 | ALLERGY STATUS TO | [facility] | | | PENICILLIN | | + + + + | 2022-02-17 03:45 | ALLERGY STATUS TO OTHER | [facility] | | | ANTIBIOTIC AGENTS STATUS | | + + + + | 2022-02-17 03:45 | ALLERGY STATUS TO | [facility] | | | SULFONAMIDES STATUS | | + + + + | 2022-02-17 03:45 | ALLERGY STATUS TO NARCOTIC | [facility] | | | AGENT STATUS | | + + + + | 2022-02-17 03:45 | ALLERGY STATUS TO OTH | [facility] | | | DRUG/MEDS/BIOL SUBST STATUS | | | | | | + + + + | 2022-03-04 15:28 | TYPE 1 DIABETES MELLITUS W | [facility] | | | DIABETIC CHRONIC KIDNEY | | + + + + | 2022-03-04 15:28 | HYPERLIPIDEMIA, | [facility] | | | UNSPECIFIED | | + + + + | 2022-03-04 15:28 | Essential (primary) | [facility] | | | hypertension | | + + + + | 2022-03-04 15:28 | URINARY TRACT INFECTION, | [facility] | | | SITE NOT SPECIFIED | | + + + + | 2022-03-04 15:28 | UPPER ABDOMINAL PAIN, | [facility] | | | UNSPECIFIED | | + + + + | 2022-03-04 15:28 | NAUSEA WITH VOMITING, | [facility] | | | UNSPECIFIED | | + + + + | 2022-03-04 15:28 | YARD SWITCHER (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 OF | [facility] | | | INSULIN | | + + + + | 2022-03-04 15:28 | OTHER USP (CURRENT) | [facility] | | | DRUG THERAPY | | + + + + | 2022-03-04 15:28 | ALLERGY STATUS TO | [facility] | | | PENICILLIN | | + + + + | 2022-03-04 15:28 | ALLERGY STATUS TO | [facility] | | | SULFONAMIDES STATUS | | + + + + | 2022-03-04 15:28 | ALLERGY STATUS TO NARCOTIC | [facility] | | | AGENT STATUS | | + + + + | 2022-03-04 15:28 | ALLERGY STATUS TO OTH | [facility] | | | DRUG/MEDS/BIOL SUBST STATUS | | | | | | + + + + | 2022-03-07 00:00 | Upper abdominal pain | [facility] | + + + + | 2022-03-07 00:00 | Pain of upper abdomen | [facility] | + + + + | 2022-03-07 00:00 | Pain of upper abdomen | [facility] | + + + + | 2022-03-07 00:39 | TYPE 2 DIABETES MELLITUS | [facility] | | | WITHOUT COMPLICATIONS | | + + + + | 2022-03-07 00:39 | HYPERLIPIDEMIA, | [facility] | | | UNSPECIFIED | | + + + + | 2022-03-07 00:39 | Essential (primary) | [facility] | | | hypertension | | + + + + | 2022-03-07 00:39 | UPPER ABDOMINAL PAIN, | [facility] | | | UNSPECIFIED | | + + + + | 2022-03-07 00:39 | NAUSEA WITH VOMITING, | [facility] | | | UNSPECIFIED | | + + + + | 2022-03-07 00:39 | USP (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 OF | [facility] | | | INSULIN | | + + + + | 2022-03-07 00:39 | OTHER USP (CURRENT) | [facility] | | | DRUG THERAPY | | + + + + | 2022-03-07 00:39 | ALLERGY STATUS TO OTHER | [facility] | | | ANTIBIOTIC AGENTS STATUS | | + + + + | 2022-03-07 00:39 | ALLERGY STATUS TO | [facility] | | | SULFONAMIDES STATUS | | + + + + | 2022-03-07 00:39 | ALLERGY STATUS TO NARCOTIC | [facility] | | | AGENT STATUS | | + + + + | 2022-03-07 00:39 | ALLERGY STATUS TO OTH | [facility] | | | DRUG/MEDS/BIOL SUBST STATUS | | | | | | + + + + | 2022-03-12 00:00 | Candidiasis of genitalia | [facility] | + + + + | 2022-03-12 00:00 | Candidiasis of genitalia | [facility] | + + + + | 2022-03-12 02:19 | CANDIDIASIS OF VULVA AND | [facility] | | | VAGINA | | + + + + | 2022-03-12 02:19 | TYPE 2 DIABETES MELLITUS | [facility] | | | WITHOUT COMPLICATIONS | | + + + + | 2022-03-12 02:19 | HYPERLIPIDEMIA, | [facility] | | | UNSPECIFIED | | + + + + | 2022-03-12 02:19 | Essential (primary) | [facility] | | | hypertension | | + + + + | 2022-03-12 02:19 | DYSURIA | [facility] | + + + + | 2022-03-12 02:19 | USP (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 OF | [facility] | | | INSULIN | | + + + + | 2022-03-12 02:19 | OTHER YARD SWITCHER (CURRENT) | [facility] | | | DRUG THERAPY | | + + + + | 2022-03-12 02:19 | ALLERGY STATUS TO | [facility] | | | PENICILLIN | | + + + + | 2022-03-12 02:19 | ALLERGY STATUS TO OTHER | [facility] | | | ANTIBIOTIC AGENTS STATUS | | + + + + | 2022-03-12 02:19 | ALLERGY STATUS TO | [facility] | | | SULFONAMIDES STATUS | | + + + + | 2022-03-12 02:19 | ALLERGY STATUS TO NARCOTIC | [facility] | | | AGENT STATUS | | + + + + | 2022-03-12 02:19 | ALLERGY STATUS TO OTH | [facility] | | | DRUG/MEDS/BIOL SUBST STATUS | | | | | | + + + + | 2022-03-16 00:00 | CRI (chronic renal | [facility] | | | insufficiency) | | + + + + | 2022-03-16 00:00 | Diabetes | [facility] | + + + + | 2022-03-16 00:00 | Diabetes mellitus | [facility] | + + + + | 2022-03-16 00:00 | Diabetes mellitus | [facility] | + + + + | 2022-03-16 00:00 | Chronic renal impairment | [facility] | + + + + | 2022-03-16 00:00 | Chronic renal impairment | [facility] | + + + + | 2022-03-16 10:31 | ANEMIA IN CHRONIC KIDNEY | [facility] | | | DISEASE | | + + + + | 2022-03-16 10:31 | TYPE 1 DIABETES MELLITUS W | [facility] | | | DIABETIC CHRONIC KIDNEY | | + + + + | 2022-03-16 10:31 | PURE HYPERGLYCERIDEMIA | [facility] | + + + + | 2022-03-16 10:31 | HYPERLIPIDEMIA, | [facility] | | | UNSPECIFIED | | + + + + | 2022-03-16 10:31 | HYPOMAGNESEMIA | [facility] | + + + + | 2022-03-16 10:31 | UNSPECIFIED HEARING LOSS, | [facility] | | | RIGHT EAR | | + + + + | 2022-03-16 10:31 | HYPERTENSIVE CHRONIC | [facility] | | | KIDNEY DISEASE W STG | | | | 1-4/UNSP | | + + + + | 2022-03-16 10:31 | IDIOPATHIC ACUTE | [facility] | | | PANCREATITIS WITHOUT | | | | NECROSIS OR INFECTION | | + + + + | 2022-03-16 10:31 | ACUTE KIDNEY FAILURE, | [facility] | | | UNSPECIFIED | | + + + + | 2022-03-16 10:31 | OTHER YARD SWITCHER (CURRENT) | [facility] | | | DRUG THERAPY | | + + + + | 2022-03-16 10:31 | PERSONAL HISTORY OF | [facility] | | | METHICILLIN RESIS STAPH | | | | INFECT | | + + + + | 2022-03-16 10:31 | ALLERGY STATUS TO | [facility] | | | PENICILLIN | | + + + + | 2022-03-16 10:31 | ALLERGY STATUS TO OTHER | [facility] | | | ANTIBIOTIC AGENTS STATUS | | + + + + | 2022-03-16 10:31 | ALLERGY STATUS TO | [facility] | | | SULFONAMIDES STATUS | | + + + + | 2022-03-16 10:31 | ALLERGY STATUS TO | [facility] | | | ANALGESIC AGENT STATUS | | + + + + | 2022-03-16 10:31 | ALLERGY STATUS TO OTH | [facility] | | | DRUG/MEDS/BIOL SUBST STATUS | | | | | | + + + + | 2022-03-16 10:31 | ACQUIRED ABSENCE OF OTHER | [facility] | | | SPECIFIED PARTS OF DIGES | | + + + + | 2022-03-16 10:31 | OTHER SPECIFIED | [facility] | | | POSTPROCEDURAL STATES | | + + + + | 2022-03-19 00:00 | Type 1 diabetes mellitus | [facility] | + + + + | 2022-03-19 00:00 | Type 1 diabetes mellitus | [facility] | + + + + | 2022-03-19 00:00 | Colitis | [facility] | + + + + | 2022-03-19 00:00 | Colitis | [facility] | + + + + | 2022-03-19 10:01 | ANEMIA IN CHRONIC KIDNEY | [facility] | | | DISEASE | | + + + + | 2022-03-19 10:01 | TYPE 1 DIABETES MELLITUS W | [facility] | | | DIABETIC CHRONIC KIDNEY | | + + + + | 2022-03-19 10:01 | VITAMIN D DEFICIENCY, | [facility] | | | UNSPECIFIED | | + + + + | 2022-03-19 10:01 | PURE HYPERCHOLESTEROLEMIA, | [facility] | | | UNSPECIFIED | | + + + + | 2022-03-19 10:01 | HYPERLIPIDEMIA, | [facility] | | | UNSPECIFIED | | + + + + | 2022-03-19 10:01 | UNSPECIFIED HEARING LOSS, | [facility] | | | RIGHT EAR | | + + + + | 2022-03-19 10:01 | HYPERTENSIVE CHRONIC | [facility] | | | KIDNEY DISEASE W STG | | | | 1-4/UNSP | | + + + + | 2022-03-19 10:01 | LEFT SIDED COLITIS WITHOUT | [facility] | | | COMPLICATIONS | | + + + + | 2022-03-19 10:01 | ACUTE ISCHEMIA OF LARGE | [facility] | | | INTESTINE, EXTENT | | | | UNSPECIFIED | | + + + + | 2022-03-19 10:01 | ACUTE KIDNEY FAILURE, | [facility] | | | UNSPECIFIED | | + + + + | 2022-03-19 10:01 | YARD SWITCHER (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 OF | [facility] | | | INSULIN | | + + + + | 2022-03-19 10:01 | USP (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 OF | [facility] | | | OPIATE ANALGESIC | | + + + + | 2022-03-19 10:01 | OTHER YARD SWITCHER (CURRENT) | [facility] | | | DRUG THERAPY | | + + + + | 2022-03-19 10:01 | PERSONAL HISTORY OF | [facility] | | | METHICILLIN RESIS STAPH | | | | INFECT | | + + + + | 2022-03-19 10:01 | ALLERGY STATUS TO | [facility] | | | PENICILLIN | | + + + + | 2022-03-19 10:01 | ALLERGY STATUS TO OTHER | [facility] | | | ANTIBIOTIC AGENTS STATUS | | + + + + | 2022-03-19 10:01 | ALLERGY STATUS TO | [facility] | | | SULFONAMIDES STATUS | | + + + + | 2022-03-19 10:01 | ALLERGY STATUS TO | [facility] | | | ANALGESIC AGENT STATUS | | + + + + | 2022-03-19 10:01 | PRESENCE OF EXTERNAL | [facility] | | | HEARING-AID | | + + + + | 2022-03-26 00:00 | Chest pain | [facility] | + + + + | 2022-03-26 00:00 | Chest pain | [facility] | + + + + | 2022-03-26 06:58 | TYPE 2 DIABETES MELLITUS W | [facility] | | | DIABETIC CHRONIC KIDNEY | | + + + + | 2022-03-26 06:58 | HYPERLIPIDEMIA, | [facility] | | | UNSPECIFIED | | + + + + | 2022-03-26 06:58 | HYPERTENSIVE CHRONIC | [facility] | | | KIDNEY DISEASE W STG | | | | 1-4/UNSP | | + + + + | 2022-03-26 06:58 | CHEST PAIN, UNSPECIFIED | [facility] | + + + + | 2022-03-26 06:58 | YARD SWITCHER (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 OF | [facility] | | | INSULIN | | + + + + | 2022-03-26 06:58 | OTHER YARD SWITCHER (CURRENT) | [facility] | | | DRUG THERAPY | | + + + + | 2022-03-26 06:58 | ALLERGY STATUS TO | [facility] | | | PENICILLIN | | + + + + | 2022-03-26 06:58 | ALLERGY STATUS TO OTHER | [facility] | | | ANTIBIOTIC AGENTS STATUS | | + + + + | 2022-03-26 06:58 | ALLERGY STATUS TO | [facility] | | | SULFONAMIDES STATUS | | + + + + | 2022-03-26 06:58 | ALLERGY STATUS TO NARCOTIC | [facility] | | | AGENT STATUS | | + + + + | 2022-03-26 06:58 | ALLERGY STATUS TO OTH | [facility] | | | DRUG/MEDS/BIOL SUBST STATUS | | | | | | + + + + | 2022-04-21 00:00 | Epigastric pain | [facility] | + + + + | 2022-04-21 00:00 | Epigastric pain | [facility] | + + + + | 2022-04-21 07:11 | TYPE 1 DIABETES MELLITUS W | [facility] | | | DIABETIC CHRONIC KIDNEY | | + + + + | 2022-04-21 07:11 | PURE HYPERCHOLESTEROLEMIA, | [facility] | | | UNSPECIFIED | | + + + + | 2022-04-21 07:11 | HYPERLIPIDEMIA, | [facility] | | | UNSPECIFIED | | + + + + | 2022-04-21 07:11 | HYPERTENSIVE CHRONIC | [facility] | | | KIDNEY DISEASE W STG | | | | 1-4/UNSP | | + + + + | 2022-04-21 07:11 | EPIGASTRIC PAIN | [facility] | + + + + | 2022-04-21 07:11 | YARD SWITCHER (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 OF | [facility] | | | INSULIN | | + + + + | 2022-04-21 07:11 | OTHER USP (CURRENT) | [facility] | | | DRUG THERAPY | | + + + + | 2022-04-21 07:11 | ALLERGY STATUS TO | [facility] | | | PENICILLIN | | + + + + | 2022-04-21 07:11 | ALLERGY STATUS TO OTHER | [facility] | | | ANTIBIOTIC AGENTS STATUS | | + + + + | 2022-04-21 07:11 | ALLERGY STATUS TO | [facility] | | | SULFONAMIDES STATUS | | + + + + | 2022-04-21 07:11 | ALLERGY STATUS TO NARCOTIC | [facility] | | | AGENT STATUS | | + + + + | 2022-04-21 07:11 | ALLERGY STATUS TO OTH | [facility] | | | DRUG/MEDS/BIOL SUBST STATUS | | | | | | + + + + | 2022-05-22 22:48 | TYPE 2 DIABETES MELLITUS | [facility] | | | WITHOUT COMPLICATIONS | | + + + + | 2022-05-22 22:48 | HYPERLIPIDEMIA, | [facility] | | | UNSPECIFIED | | + + + + | 2022-05-22 22:48 | Essential (primary) | [facility] | | | hypertension | | + + + + | 2022-05-22 22:48 | OTHER CHEST PAIN | [facility] | + + + + | 2022-05-22 22:48 | CHEST PAIN, UNSPECIFIED | [facility] | + + + + | 2022-05-22 22:48 | YARD SWITCHER (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 OF | [facility] | | | INSULIN | | + + + + | 2022-05-22 22:48 | OTHER USP (CURRENT) | [facility] | | | DRUG THERAPY | | + + + + | 2022-05-22 22:48 | ALLERGY STATUS TO OTHER | [facility] | | | ANTIBIOTIC AGENTS STATUS | | + + + + | 2022-05-22 22:48 | ALLERGY STATUS TO | [facility] | | | SULFONAMIDES STATUS | | + + + + | 2022-05-22 22:48 | ALLERGY STATUS TO NARCOTIC | [facility] | | | AGENT STATUS | | + + + + | 2022-05-22 22:48 | ALLERGY STATUS TO OTH | [facility] | | | DRUG/MEDS/BIOL SUBST STATUS | | | | | | + + + + | 2022-05-23 00:00 | Atypical chest pain | [facility] | + + + + | 2022-05-23 00:00 | Atypical chest pain | [facility] | + + + + | 2022-05-26 18:10 | TYPE 2 DIABETES MELLITUS | [facility] | | | WITHOUT COMPLICATIONS | | + + + + | 2022-05-26 18:10 | Essential (primary) | [facility] | | | hypertension | | + + + + | 2022-05-26 18:10 | UNSPECIFIED ABDOMINAL PAIN | [facility] | | | | | + + + + | 2022-05-26 18:10 | DYSURIA | [facility] | + + + + | 2022-05-26 18:10 | USP (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 OF | [facility] | | | INSULIN | | + + + + | 2022-05-26 18:10 | ALLERGY STATUS TO OTHER | [facility] | | | ANTIBIOTIC AGENTS STATUS | | + + + + | 2022-05-26 18:10 | ALLERGY STATUS TO | [facility] | | | SULFONAMIDES STATUS | | + + + + | 2022-05-26 18:10 | ALLERGY STATUS TO NARCOTIC | [facility] | | | AGENT STATUS | | + + + + | 2022-05-26 18:10 | ALLERGY STATUS TO OTH | [facility] | | | DRUG/MEDS/BIOL SUBST STATUS | | | | | | + + + + | 2022-06-18 11:42 | TYPE 1 DIABETES MELLITUS | [facility] | | | WITH HYPERGLYCEMIA | | + + + + | 2022-06-18 11:42 | HYPERLIPIDEMIA, | [facility] | | | UNSPECIFIED | | + + + + | 2022-06-18 11:42 | Essential (primary) | [facility] | | | hypertension | | + + + + | 2022-06-18 11:42 | NAUSEA | [facility] | + + + + | 2022-06-18 11:42 | YARD SWITCHER (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 OF | [facility] | | | INSULIN | | + + + + | 2022-06-18 11:42 | OTHER USP (CURRENT) | [facility] | | | DRUG THERAPY | | + + + + | 2022-06-18 11:42 | ALLERGY STATUS TO OTHER | [facility] | | | ANTIBIOTIC AGENTS STATUS | | + + + + | 2022-06-18 11:42 | ALLERGY STATUS TO | [facility] | | | SULFONAMIDES STATUS | | + + + + | 2022-06-18 11:42 | ALLERGY STATUS TO NARCOTIC | [facility] | | | AGENT STATUS | | + + + + | 2022-06-18 11:42 | ALLERGY STATUS TO OTH | [facility] | | | DRUG/MEDS/BIOL SUBST STATUS | | | | | | + + + + | 2022-06-21 00:00 | Acute kidney injury | [facility] | + + + + | 2022-06-21 00:00 | Acute kidney injury | [facility] | + + + + | 2022-06-21 12:02 | TYPE 1 DIABETES MELLITUS W | [facility] | | | DIABETIC CHRONIC KIDNEY | | + + + + | 2022-06-21 12:02 | TYPE 1 DIABETES MELLITUS | [facility] | | | WITH HYPERGLYCEMIA | | + + + + | 2022-06-21 12:02 | CHRONIC KIDNEY DISEASE, | [facility] | | | UNSPECIFIED | | + + + + | 2022-06-21 12:02 | DISORDER OF KIDNEY AND | [facility] | | | URETER, UNSPECIFIED | | + + + + | 2022-06-21 12:02 | URINARY TRACT INFECTION, | [facility] | | | SITE NOT SPECIFIED | | + + + + | 2022-06-21 12:02 | ALLERGY STATUS TO | [facility] | | | PENICILLIN | | + + + + | 2022-06-21 12:02 | ALLERGY STATUS TO | [facility] | | | SULFONAMIDES STATUS | | + + + + | 2022-06-21 12:02 | ALLERGY STATUS TO NARCOTIC | [facility] | | | AGENT STATUS | | + + + + | 2022-06-21 12:02 | ALLERGY STATUS TO OTH | [facility] | | | DRUG/MEDS/BIOL SUBST STATUS | | | | | | + + + + | 2022-06-22 00:00 | Acidosis | [facility] | + + + + | 2022-06-22 00:00 | Acidosis | [facility] | + + + + | 2022-07-03 00:00 | Right upper quadrant | [facility] | | | abdominal pain | | + + + + | 2022-07-03 00:00 | Right upper quadrant | [facility] | | | abdominal pain | | + + + + | 2022-07-03 05:56 | TYPE 2 DIABETES MELLITUS W | [facility] | | | DIABETIC CHRONIC KIDNEY | | + + + + | 2022-07-03 05:56 | HYPERTENSIVE CHRONIC | [facility] | | | KIDNEY DISEASE W [facility] | | | | 1-4/UNSP | | + + + + | 2022-07-03 05:56 | CHRONIC KIDNEY DISEASE, | [facility] | | | UNSPECIFIED | | + + + + | 2022-07-03 05:56 | RIGHT UPPER QUADRANT PAIN | [facility] | + + + + | 2022-07-03 05:56 | USP (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 OF | [facility] | | | INSULIN | | + + + + | 2022-07-03 05:56 | OTHER YARD SWITCHER (CURRENT) | [facility] | | | DRUG THERAPY | | + + + + | 2022-07-03 05:56 | ALLERGY STATUS TO | [facility] | | | PENICILLIN | | + + + + | 2022-07-03 05:56 | ALLERGY STATUS TO OTHER | [facility] | | | ANTIBIOTIC AGENTS STATUS | | + + + + | 2022-07-03 05:56 | ALLERGY STATUS TO | [facility] | | | SULFONAMIDES STATUS | | + + + + | 2022-07-03 05:56 | ALLERGY STATUS TO NARCOTIC | [facility] | | | AGENT STATUS | | + + + + | 2022-07-03 05:56 | ALLERGY STATUS TO OTH | [facility] | | | DRUG/MEDS/BIOL SUBST STATUS | | | | | | + + + + | 2022-07-08 00:00 | Patient left without being | [facility] | | | seen | | + + + + | 2022-07-08 00:00 | Patient left without being | [facility] | | | seen | | + + + + | 2022-07-27 00:00 | Biliary colic | [facility] | + + + + | 2022-07-27 00:00 | Biliary colic | [facility] | + + + + | 2022-07-27 00:25 | TYPE 2 DIABETES MELLITUS | [facility] | | | WITH KETOACIDOSIS WITHOUT | | + + + + | 2022-07-27 00:25 | TYPE 2 DIABETES MELLITUS W | [facility] | | | DIABETIC CHRONIC KIDNEY | | + + + + | 2022-07-27 00:25 | HYPERLIPIDEMIA, | [facility] | | | UNSPECIFIED | | + + + + | 2022-07-27 00:25 | HYPERTENSIVE CHRONIC | [facility] | | | KIDNEY DISEASE W [facility] | | | | 1-4/UNSP | | + + + + | 2022-07-27 00:25 | CALCULUS OF BILE DUCT W/O | [facility] | | | CHOLANGITIS OR CHOLECYST | | + + + + | 2022-07-27 00:25 | CHRONIC KIDNEY DISEASE, | [facility] | | | UNSPECIFIED | | + + + + | 2022-07-27 00:25 | RIGHT UPPER QUADRANT PAIN | [facility] | + + + + | 2022-07-27 00:25 | OTHER YARD SWITCHER (CURRENT) | [facility] | | | DRUG THERAPY | | + + + + | 2022-07-27 00:25 | ALLERGY STATUS TO OTHER | [facility] | | | ANTIBIOTIC AGENTS STATUS | | + + + + | 2022-07-27 00:25 | ALLERGY STATUS TO | [facility] | | | SULFONAMIDES STATUS | | + + + + | 2022-07-27 00:25 | ALLERGY STATUS TO NARCOTIC | [facility] | | | AGENT STATUS | | + + + + | 2022-07-27 00:25 | ALLERGY STATUS TO OTH | [facility] | | | DRUG/MEDS/BIOL SUBST STATUS | | | | | | + + + + | 2022-07-29 08:41 | TYPE 2 DIABETES MELLITUS W | [facility] | | | DIABETIC CHRONIC KIDNEY | | + + + + | 2022-07-29 08:41 | HYPERLIPIDEMIA, | [facility] | | | UNSPECIFIED | | + + + + | 2022-07-29 08:41 | HYPERTENSIVE CHRONIC | [facility] | | | KIDNEY DISEASE W STG | | | | 1-4/UNSP | | + + + + | 2022-07-29 08:41 | CHRONIC KIDNEY DISEASE, | [facility] | | | UNSPECIFIED | | + + + + | 2022-07-29 08:41 | UPPER ABDOMINAL PAIN, | [facility] | | | UNSPECIFIED | | + + + + | 2022-07-29 08:41 | USP (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 OF | [facility] | | | INSULIN | | + + + + | 2022-07-29 08:41 | OTHER USP (CURRENT) | [facility] | | | DRUG THERAPY | | + + + + | 2022-07-29 08:41 | ALLERGY STATUS TO | [facility] | | | PENICILLIN | | + + + + | 2022-07-29 08:41 | ALLERGY STATUS TO OTHER | [facility] | | | ANTIBIOTIC AGENTS STATUS | | + + + + | 2022-07-29 08:41 | ALLERGY STATUS TO | [facility] | | | SULFONAMIDES STATUS | | + + + + | 2022-07-29 08:41 | ALLERGY STATUS TO NARCOTIC | [facility] | | | AGENT STATUS | | + + + + | 2022-07-29 08:41 | ALLERGY STATUS TO OTH | [facility] | | | DRUG/MEDS/BIOL SUBST STATUS | | | | | | + + + + | 2022-08-01 10:10 | EPIGASTRIC PAIN | [facility] | + + + + | 2022-08-03 00:00 | Hyperkalemia | [facility] | + + + + | 2022-08-03 00:00 | Hyperkalemia | [facility] | + + + + | 2022-08-03 00:00 | Encounter for medication | [facility] | | | refill | | + + + + | 2022-08-03 00:00 | Encounter for medication | [facility] | | | refill | | + + + + | 2022-08-03 12:33 | TYPE 2 DIABETES MELLITUS | [facility] | | | WITH KETOACIDOSIS WITHOUT | | + + + + | 2022-08-03 12:33 | TYPE 2 DIABETES MELLITUS W | [facility] | | | DIABETIC CHRONIC KIDNEY | | + + + + | 2022-08-03 12:33 | HYPERLIPIDEMIA, | [facility] | | | UNSPECIFIED | | + + + + | 2022-08-03 12:33 | HYPERKALEMIA | [facility] | + + + + | 2022-08-03 12:33 | Essential (primary) | [facility] | | | hypertension | | + + + + | 2022-08-03 12:33 | HYPERTENSIVE CHRONIC | [facility] | | | KIDNEY DISEASE W STG | | | | 1-4/UNSP | | + + + + | 2022-08-03 12:33 | CHRONIC KIDNEY DISEASE, | [facility] | | | UNSPECIFIED | | + + + + | 2022-08-03 12:33 | ENCOUNTER FOR ISSUE OF | [facility] | | | REPEAT PRESCRIPTION | | + + + + | 2022-08-03 12:33 | OTHER USP (CURRENT) | [facility] | | | DRUG THERAPY | | + + + + | 2022-08-03 12:33 | ALLERGY STATUS TO OTHER | [facility] | | | ANTIBIOTIC AGENTS STATUS | | + + + + | 2022-08-03 12:33 | ALLERGY STATUS TO | [facility] | | | SULFONAMIDES STATUS | | + + + + | 2022-08-03 12:33 | ALLERGY STATUS TO NARCOTIC | [facility] | | | AGENT STATUS | | + + + + | 2022-08-03 12:33 | ALLERGY STATUS TO OTH | [facility] | | | DRUG/MEDS/BIOL SUBST STATUS | | | | | | + + + + | 2022-08-15 11:31 | EPIGASTRIC PAIN | [facility] | + + + + | 2022-08-15 11:31 | ENCOUNTER FOR | [facility] | | | PREPROCEDURAL LABORATORY | | | | EXAMINATION | | + + + + | 2022-09-14 10:28 | TYPE 2 DIABETES MELLITUS | [facility] | | | WITH KETOACIDOSIS WITHOUT | | + + + + | 2022-09-14 10:28 | TYPE 2 DIABETES MELLITUS W | [facility] | | | DIABETIC CHRONIC KIDNEY | | + + + + | 2022-09-14 10:28 | HYPERLIPIDEMIA, | [facility] | | | UNSPECIFIED | | + + + + | 2022-09-14 10:28 | HYPERTENSIVE CHRONIC | [facility] | | | KIDNEY DISEASE W STG | | | | 1-4/UNSP | | + + + + | 2022-09-14 10:28 | CHRONIC KIDNEY DISEASE, | [facility] | | | UNSPECIFIED | | + + + + | 2022-09-14 10:28 | OTHER CHEST PAIN | [facility] | + + + + | 2022-09-14 10:28 | ALLERGY STATUS TO OTHER | [facility] | | | ANTIBIOTIC AGENTS STATUS | | + + + + | 2022-09-14 10:28 | ALLERGY STATUS TO | [facility] | | | SULFONAMIDES STATUS | | + + + + | 2022-09-14 10:28 | ALLERGY STATUS TO NARCOTIC | [facility] | | | AGENT STATUS | | + + + + | 2022-09-14 10:28 | ALLERGY STATUS TO OTH | [facility] | | | DRUG/MEDS/BIOL SUBST STATUS | | | | | | + + + + | 2022-09-17 15:09 | CHRONIC CHOLECYSTITIS | [facility] | + + + + | 2022-09-17 15:09 | ENCOUNTER FOR | [facility] | | | PREPROCEDURAL LABORATORY | | | | EXAMINATION | | + + + + | 2022-09-22 21:55 | TYPE 2 DIABETES MELLITUS | [facility] | | | WITHOUT COMPLICATIONS | | + + + + | 2022-09-22 21:55 | HYPERLIPIDEMIA, | [facility] | | | UNSPECIFIED | | + + + + | 2022-09-22 21:55 | Essential (primary) | [facility] | | | hypertension | | + + + + | 2022-09-22 21:55 | URINARY TRACT INFECTION, | [facility] | | | SITE NOT SPECIFIED | | + + + + | 2022-09-22 21:55 | UNSPECIFIED ABDOMINAL PAIN | [facility] | | | | | + + + + | 2022-09-22 21:55 | USP (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 OF | [facility] | | | INSULIN | | + + + + | 2022-09-22 21:55 | OTHER USP (CURRENT) | [facility] | | | DRUG THERAPY | | + + + + | 2022-09-22 21:55 | ALLERGY STATUS TO | [facility] | | | PENICILLIN | | + + + + | 2022-09-22 21:55 | ALLERGY STATUS TO OTHER | [facility] | | | ANTIBIOTIC AGENTS STATUS | | + + + + | 2022-09-22 21:55 | ALLERGY STATUS TO | [facility] | | | SULFONAMIDES STATUS | | + + + + | 2022-09-22 21:55 | ALLERGY STATUS TO NARCOTIC | [facility] | | | AGENT STATUS | | + + + + | 2022-10-06 00:00 | Dysuria | [facility] | + + + + | 2022-10-06 00:00 | Dysuria | [facility] | + + + + | 2022-10-06 04:49 | TYPE 2 DIABETES MELLITUS W | [facility] | | | DIABETIC CHRONIC KIDNEY | | + + + + | 2022-10-06 04:49 | HYPERLIPIDEMIA, | [facility] | | | UNSPECIFIED | | + + + + | 2022-10-06 04:49 | HYPERTENSIVE CHRONIC | [facility] | | | KIDNEY DISEASE W STG | | | | 1-4/UNSP | | + + + + | 2022-10-06 04:49 | CHRONIC KIDNEY DISEASE, | [facility] | | | UNSPECIFIED | | + + + + | 2022-10-06 04:49 | DYSURIA | [facility] | + + + + | 2022-10-06 04:49 | USP (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 OF | [facility] | | | INSULIN | | + + + + | 2022-10-06 04:49 | OTHER YARD SWITCHER (CURRENT) | [facility] | | | DRUG THERAPY | | + + + + | 2022-10-06 04:49 | ALLERGY STATUS TO | [facility] | | | PENICILLIN | | + + + + | 2022-10-06 04:49 | ALLERGY STATUS TO OTHER | [facility] | | | ANTIBIOTIC AGENTS STATUS | | + + + + | 2022-10-06 04:49 | ALLERGY STATUS TO | [facility] | | | SULFONAMIDES STATUS | | + + + + | 2022-10-06 04:49 | ALLERGY STATUS TO NARCOTIC | [facility] | | | AGENT STATUS | | + + + + | 2022-10-06 04:49 | ALLERGY STATUS TO OTH | [facility] | | | DRUG/MEDS/BIOL SUBST STATUS | | | | | | + + + + | 2022-10-10 22:40 | TYPE 1 DIABETES MELLITUS W | [facility] | | | DIABETIC CHRONIC KIDNEY | | + + + + | 2022-10-10 22:40 | TYPE 1 DIABETES MELLITUS | [facility] | | | WITH HYPERGLYCEMIA | | + + + + | 2022-10-10 22:40 | HYPERLIPIDEMIA, | [facility] | | | UNSPECIFIED | | + + + + | 2022-10-10 22:40 | HYPERTENSIVE CHRONIC | [facility] | | | KIDNEY DISEASE W STG | | | | 1-4/UNSP | | + + + + | 2022-10-10 22:40 | CHRONIC KIDNEY DISEASE, | [facility] | | | UNSPECIFIED | | + + + + | 2022-10-10 22:40 | UNSPECIFIED ABDOMINAL PAIN | [facility] | | | | | + + + + | 2022-10-10 22:40 | USP (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 OF | [facility] | | | INSULIN | | + + + + | 2022-10-10 22:40 | OTHER USP (CURRENT) | [facility] | | | DRUG THERAPY | | + + + + | 2022-10-10 22:40 | ALLERGY STATUS TO OTHER | [facility] | | | ANTIBIOTIC AGENTS STATUS | | + + + + | 2022-10-10 22:40 | ALLERGY STATUS TO | [facility] | | | SULFONAMIDES STATUS | | + + + + | 2022-10-10 22:40 | ALLERGY STATUS TO NARCOTIC | [facility] | | | AGENT STATUS | | + + + + | 2022-10-10 22:40 | ALLERGY STATUS TO OTH | [facility] | | | DRUG/MEDS/BIOL SUBST STATUS | | | | | | + + + + | 2022-10-11 00:00 | Type 1 diabetes mellitus | [facility] | | | with hyperglycemia | | + + + + | 2022-10-11 00:00 | Type 1 diabetes mellitus | [facility] | | | with hyperglycemia | | + + + + | 2022-10-30 00:00 | Renal insufficiency | [facility] | + + + + | 2022-10-30 00:00 | Renal insufficiency | [facility] | + + + + | 2022-10-30 01:11 | TYPE 2 DIABETES MELLITUS | [facility] | | | WITH KETOACIDOSIS WITHOUT | | + + + + | 2022-10-30 01:11 | TYPE 2 DIABETES MELLITUS W | [facility] | | | DIABETIC CHRONIC KIDNEY | | + + + + | 2022-10-30 01:11 | PURE HYPERCHOLESTEROLEMIA, | [facility] | | | UNSPECIFIED | | + + + + | 2022-10-30 01:11 | HYPERKALEMIA | [facility] | + + + + | 2022-10-30 01:11 | HYPERTENSIVE CHRONIC | [facility] | | | KIDNEY DISEASE W STG | | | | 1-4/UNSP | | + + + + | 2022-10-30 01:11 | CHRONIC KIDNEY DISEASE, | [facility] | | | UNSPECIFIED | | + + + + | 2022-10-30 01:11 | PRECORDIAL PAIN | [facility] | + + + + | 2022-10-30 01:11 | YARD SWITCHER (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 OF | [facility] | | | INSULIN | | + + + + | 2022-10-30 01:11 | OTHER YARD SWITCHER (CURRENT) | [facility] | | | DRUG THERAPY | | + + + + | 2022-10-30 01:11 | ALLERGY STATUS TO OTHER | [facility] | | | ANTIBIOTIC AGENTS STATUS | | + + + + | 2022-10-30 01:11 | ALLERGY STATUS TO | [facility] | | | SULFONAMIDES STATUS | | + + + + | 2022-10-30 01:11 | ALLERGY STATUS TO NARCOTIC | [facility] | | | AGENT STATUS | | + + + + | 2022-10-30 01:11 | ALLERGY STATUS TO OTH | [facility] | | | DRUG/MEDS/BIOL SUBST STATUS | | | | | | + + + + | 2022-11-13 09:00 | CHRONIC CHOLECYSTITIS | [facility] | + + + + | 2022-11-24 00:00 | Chronic abdominal pain | [facility] | + + + + | 2022-11-24 00:00 | Chronic abdominal pain | [facility] | + + + + | 2022-11-24 20:55 | TYPE 2 DIABETES MELLITUS | [facility] | | | WITH HYPERGLYCEMIA | | + + + + | 2022-11-24 20:55 | HYPERLIPIDEMIA, | [facility] | | | UNSPECIFIED | | + + + + | 2022-11-24 20:55 | OTHER CHRONIC PAIN | [facility] | + + + + | 2022-11-24 20:55 | Essential (primary) | [facility] | | | hypertension | | + + + + | 2022-11-24 20:55 | UNSPECIFIED ABDOMINAL PAIN | [facility] | | | | | + + + + | 2022-11-24 20:55 | USP (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 OF | [facility] | | | INSULIN | | + + + + | 2022-11-24 20:55 | OTHER YARD SWITCHER (CURRENT) | [facility] | | | DRUG THERAPY | | + + + + | 2022-11-24 20:55 | ALLERGY STATUS TO | [facility] | | | PENICILLIN | | + + + + | 2022-11-24 20:55 | ALLERGY STATUS TO OTHER | [facility] | | | ANTIBIOTIC AGENTS STATUS | | + + + + | 2022-11-24 20:55 | ALLERGY STATUS TO | [facility] | | | SULFONAMIDES STATUS | | + + + + | 2022-11-24 20:55 | ALLERGY STATUS TO NARCOTIC | [facility] | | | AGENT STATUS | | + + + + | 2022-11-24 20:55 | ALLERGY STATUS TO OTH | [facility] | | | DRUG/MEDS/BIOL SUBST STATUS | | | | | | + + + + | 2022-12-07 00:00 | Acute pancreatitis | [facility] | + + + + | 2022-12-07 00:00 | Acute pancreatitis | [facility] | + + + + | 2022-12-08 11:00 | TYPE 1 DIABETES MELLITUS W | [facility] | | | DIABETIC CHRONIC KIDNEY | | + + + + | 2022-12-08 11:00 | PURE HYPERGLYCERIDEMIA | [facility] | + + + + | 2022-12-08 11:00 | HYPOKALEMIA | [facility] | + + + + | 2022-12-08 11:00 | UNSPECIFIED HEARING LOSS, | [facility] | | | RIGHT EAR | | + + + + | 2022-12-08 11:00 | HYPERTENSIVE CHRONIC | [facility] | | | KIDNEY DISEASE W STG | | | | 1-4/UNSP | | + + + + | 2022-12-08 11:00 | ACUTE PANCREATITIS WITHOUT | [facility] | | | NECROSIS OR INFECTION, | | | | UNSP | | + + + + | 2022-12-08 11:00 | CHRONIC KIDNEY DISEASE, | [facility] | | | UNSPECIFIED | | + + + + | 2022-12-08 11:00 | USP (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 OF | [facility] | | | INSULIN | | + + + + | 2022-12-08 11:00 | OTHER YARD SWITCHER (CURRENT) | [facility] | | | DRUG THERAPY | | + + + + | 2022-12-08 11:00 | PERSONAL HISTORY OF | [facility] | | | LEUKEMIA | | + + + + | 2022-12-08 11:00 | ALLERGY STATUS TO | [facility] | | | PENICILLIN | | + + + + | 2022-12-08 11:00 | ALLERGY STATUS TO OTHER | [facility] | | | ANTIBIOTIC AGENTS STATUS | | + + + + | 2022-12-08 11:00 | ALLERGY STATUS TO | [facility] | | | SULFONAMIDES STATUS | | + + + + | 2022-12-08 11:00 | ALLERGY STATUS TO | [facility] | | | ANALGESIC AGENT STATUS | | + + + + | 2022-12-08 11:00 | ALLERGY STATUS TO OTH | [facility] | | | DRUG/MEDS/BIOL SUBST STATUS | | | | | | + + + + | 2022-12-08 11:00 | ACQUIRED ABSENCE OF OTHER | [facility] | | | SPECIFIED PARTS OF DIGES | | + + + + | 2022-12-08 11:00 | PRESENCE OF EXTERNAL | [facility] | | | HEARING-AID | | + + + + | 2022-12-08 11:00 | OTHER DENTAL PROCEDURE | [facility] | | | STATUS | | + + + + | 2023-01-03 00:00 | Recurrent pancreatitis | [facility] | + + + + | 2023-01-03 00:00 | Recurrent pancreatitis | [facility] | + + + + | 2023-01-03 00:00 | Abdominal bloating | [facility] | + + + + | 2023-01-03 00:00 | Abdominal bloating | [facility] | + + + + | 2023-01-03 00:00 | Left against medical | [facility] | | | advice | | + + + + | 2023-01-03 00:00 | Left against medical | [facility] | | | advice | | + + + + | 2023-01-03 12:12 | TYPE 2 DIABETES MELLITUS W | [facility] | | | DIABETIC CHRONIC KIDNEY | | + + + + | 2023-01-03 12:12 | HYPERTENSIVE CHRONIC | [facility] | | | KIDNEY DISEASE W STG | | | | 1-4/UNSP | | + + + + | 2023-01-03 12:12 | CHRONIC KIDNEY DISEASE, | [facility] | | | UNSPECIFIED | | + + + + | 2023-01-03 12:12 | RIGHT UPPER QUADRANT PAIN | [facility] | + + + + | 2023-01-03 12:12 | PROC/TRTMT NOT CRD OUT BEC | [facility] | | | PT DECISION FOR OTH FIFI | | + + + + | 2023-01-03 12:12 | ALLERGY STATUS TO | [facility] | | | PENICILLIN | | + + + + | 2023-01-03 12:12 | ALLERGY STATUS TO OTHER | [facility] | | | ANTIBIOTIC AGENTS STATUS | | + + + + | 2023-01-03 12:12 | ALLERGY STATUS TO | [facility] | | | SULFONAMIDES STATUS | | + + + + | 2023-01-03 12:12 | ALLERGY STATUS TO NARCOTIC | [facility] | | | AGENT STATUS | | + + + + | 2023-01-03 12:12 | ALLERGY STATUS TO OTH | [facility] | | | DRUG/MEDS/BIOL SUBST STATUS | | | | | | + + + + | 2023-01-03 20:28 | TYPE 1 DIABETES MELLITUS | [facility] | | | WITH KETOACIDOSIS WITHOUT | | + + + + | 2023-01-03 20:28 | HYPERLIPIDEMIA, | [facility] | | | UNSPECIFIED | | + + + + | 2023-01-03 20:28 | ACUTE PANCREATITIS WITHOUT | [facility] | | | NECROSIS OR INFECTION, | | | | UNSP | | + + + + | 2023-01-03 20:28 | OTHER CHRONIC PANCREATITIS | [facility] | | | | | + + + + | 2023-01-03 20:28 | ACUTE KIDNEY FAILURE, | [facility] | | | UNSPECIFIED | | + + + + | 2023-01-03 20:28 | ALLERGY STATUS TO | [facility] | | | PENICILLIN | | + + + + | 2023-01-03 20:28 | ALLERGY STATUS TO OTHER | [facility] | | | ANTIBIOTIC AGENTS STATUS | | + + + + | 2023-01-03 20:28 | ALLERGY STATUS TO | [facility] | | | SULFONAMIDES STATUS | | + + + + | 2023-01-03 20:28 | ALLERGY STATUS TO NARCOTIC | [facility] | | | AGENT STATUS | | + + + + | 2023-01-03 20:28 | ALLERGY STATUS TO OTH | [facility] | | | DRUG/MEDS/BIOL SUBST STATUS | | | | | | + + + + | 2023-01-03 20:28 | PT NONCOMPL WITH OTHER MED | [facility] | | | TRTMT AND REGIMEN D/T U | | + + + + | 2023-01-20 23:40 | TYPE 2 DIABETES MELLITUS | [facility] | | | WITHOUT COMPLICATIONS | | + + + + | 2023-01-20 23:40 | Essential (primary) | [facility] | | | hypertension | | + + + + | 2023-01-20 23:40 | URINARY TRACT INFECTION, | [facility] | | | SITE NOT SPECIFIED | | + + + + | 2023-01-20 23:40 | DYSURIA | [facility] | + + + + | 2023-01-20 23:40 | USP (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 OF | [facility] | | | INSULIN | | + + + + | 2023-01-20 23:40 | ALLERGY STATUS TO | [facility] | | | PENICILLIN | | + + + + | 2023-01-20 23:40 | ALLERGY STATUS TO | [facility] | | | SULFONAMIDES STATUS | | + + + + | 2023-01-20 23:40 | ALLERGY STATUS TO NARCOTIC | [facility] | | | AGENT STATUS | | + + + + | 2023-01-20 23:40 | ALLERGY STATUS TO OTH | [facility] | | | DRUG/MEDS/BIOL SUBST STATUS | | | | | | + + + + | 2023-01-26 21:48 | TYPE 1 DIABETES MELLITUS W | [facility] | | | DIABETIC CHRONIC KIDNEY | | + + + + | 2023-01-26 21:48 | HYPERLIPIDEMIA, | [facility] | | | UNSPECIFIED | | + + + + | 2023-01-26 21:48 | HYPERTENSIVE CHRONIC | [facility] | | | KIDNEY DISEASE W STG | | | | 1-4/UNSP | | + + + + | 2023-01-26 21:48 | CHRONIC KIDNEY DISEASE, | [facility] | | | UNSPECIFIED | | + + + + | 2023-01-26 21:48 | UNSPECIFIED ABDOMINAL PAIN | [facility] | | | | | + + + + | 2023-01-26 21:48 | USP (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 OF | [facility] | | | INSULIN | | + + + + | 2023-01-26 21:48 | ALLERGY STATUS TO OTHER | [facility] | | | ANTIBIOTIC AGENTS STATUS | | + + + + | 2023-01-26 21:48 | ALLERGY STATUS TO | [facility] | | | SULFONAMIDES STATUS | | + + + + | 2023-01-26 21:48 | ALLERGY STATUS TO NARCOTIC | [facility] | | | AGENT STATUS | | + + + + | 2023-01-26 21:48 | ALLERGY STATUS TO OTH | [facility] | | | DRUG/MEDS/BIOL SUBST STATUS | | | | | | + + + + | 2023-02-02 00:06 | TYPE 2 DIABETES MELLITUS W | [facility] | | | DIABETIC CHRONIC KIDNEY | | + + + + | 2023-02-02 00:06 | HYPERLIPIDEMIA, | [facility] | | | UNSPECIFIED | | + + + + | 2023-02-02 00:06 | OTHER CHRONIC PAIN | [facility] | + + + + | 2023-02-02 00:06 | HYPERTENSIVE CHRONIC | [facility] | | | KIDNEY DISEASE W STG | | | | 1-4/UNSP | | + + + + | 2023-02-02 00:06 | CHRONIC KIDNEY DISEASE, | [facility] | | | UNSPECIFIED | | + + + + | 2023-02-02 00:06 | UNSPECIFIED ABDOMINAL PAIN | [facility] | | | | | + + + + | 2023-02-02 00:06 | USP (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 OF | [facility] | | | INSULIN | | + + + + | 2023-02-02 00:06 | ALLERGY STATUS TO | [facility] | | | PENICILLIN | | + + + + | 2023-02-02 00:06 | ALLERGY STATUS TO OTHER | [facility] | | | ANTIBIOTIC AGENTS STATUS | | + + + + | 2023-02-02 00:06 | ALLERGY STATUS TO | [facility] | | | SULFONAMIDES STATUS | | + + + + | 2023-02-02 00:06 | ALLERGY STATUS TO NARCOTIC | [facility] | | | AGENT STATUS | | + + + + | 2023-02-02 00:06 | ALLERGY STATUS TO OTH | [facility] | | | DRUG/MEDS/BIOL SUBST STATUS | | | | | | + + + + | 2023-02-11 00:00 | Positive blood | [facility] | | | test | | + + + + | 2023-02-11 00:00 | Positive blood | [facility] | | | test | | + + + + | 2023-02-11 00:00 | | [facility] | + + + + | 2023-02-11 00:00 | | [facility] | + + + + | 2023-02-11 00:33 | TYPE 2 DIABETES MELLITUS W | [facility] | | | DIABETIC CHRONIC KIDNEY | | + + + + | 2023-02-11 00:33 | HYPERTENSIVE CHRONIC | [facility] | | | KIDNEY DISEASE W STG | | | | 1-4/UNSP | | + + + + | 2023-02-11 00:33 | CHRONIC KIDNEY DISEASE, | [facility] | | | UNSPECIFIED | | + + + + | 2023-02-11 00:33 | PRE-EXIST HYP CHRONIC | [facility] | | | KIDNEY DISEASE COMP PREG, | | | | FI | | + + + + | 2023-02-11 00:33 | UNSP PRE-EXISTING DIABETES | [facility] | | | IN , FIRST TRI | | + + + + | 2023-02-11 00:33 | OTH RELATED | [facility] | | | CONDITIONS, FIRST TRIMESTER | | | | | | + + + + | 2023-02-11 00:33 | LEFT UPPER QUADRANT PAIN | [facility] | + + + + | 2023-02-11 00:33 | LESS THAN 8 WEEKS | [facility] | | | GESTATION OF | | + + + + | 2023-02-11 00:33 | YARD SWITCHER (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 OF | [facility] | | | INSULIN | | + + + + | 2023-02-11 00:33 | OTHER USP (CURRENT) | [facility] | | | DRUG THERAPY | | + + + + | 2023-02-11 00:33 | ALLERGY STATUS TO OTHER | [facility] | | | ANTIBIOTIC AGENTS STATUS | | + + + + | 2023-02-11 00:33 | ALLERGY STATUS TO | [facility] | | | SULFONAMIDES STATUS | | + + + + | 2023-02-11 00:33 | ALLERGY STATUS TO NARCOTIC | [facility] | | | AGENT STATUS | | + + + + | 2023-02-11 00:33 | ALLERGY STATUS TO OTH | [facility] | | | DRUG/MEDS/BIOL SUBST STATUS | | | | | | + + + + | 2023-02-23 00:40 | TYPE 1 DIABETES MELLITUS W | [facility] | | | DIABETIC CHRONIC KIDNEY | | + + + + | 2023-02-23 00:40 | TYPE 1 DIABETES MELLITUS | [facility] | | | WITH HYPERGLYCEMIA | | + + + + | 2023-02-23 00:40 | HYPERLIPIDEMIA, | [facility] | | | UNSPECIFIED | | + + + + | 2023-02-23 00:40 | HYPERTENSIVE CHRONIC | [facility] | | | KIDNEY DISEASE W STG | | | | 1-4/UNSP | | + + + + | 2023-02-23 00:40 | CHRONIC KIDNEY DISEASE, | [facility] | | | UNSPECIFIED | | + + + + | 2023-02-23 00:40 | YARD SWITCHER (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 OF | [facility] | | | INSULIN | | + + + + | 2023-02-23 00:40 | OTHER YARD SWITCHER (CURRENT) | [facility] | | | DRUG THERAPY | | + + + + | 2023-02-23 00:40 | ALLERGY STATUS TO | [facility] | | | PENICILLIN | | + + + + | 2023-02-23 00:40 | ALLERGY STATUS TO OTHER | [facility] | | | ANTIBIOTIC AGENTS STATUS | | + + + + | 2023-02-23 00:40 | ALLERGY STATUS TO | [facility] | | | SULFONAMIDES STATUS | | + + + + | 2023-02-23 00:40 | ALLERGY STATUS TO NARCOTIC | [facility] | | | AGENT STATUS | | + + + + | 2023-02-23 00:40 | ALLERGY STATUS TO OTH | [facility] | | | DRUG/MEDS/BIOL SUBST STATUS | | | | | | + + + + | 2023-03-04 21:44 | TYPE 2 DIABETES MELLITUS | [facility] | | | WITH HYPERGLYCEMIA | | + + + + | 2023-03-04 21:44 | OTHER CHRONIC PAIN | [facility] | + + + + | 2023-03-04 21:44 | Essential (primary) | [facility] | | | hypertension | | + + + + | 2023-03-04 21:44 | RIGHT LOWER QUADRANT PAIN | [facility] | + + + + | 2023-03-04 21:44 | YARD SWITCHER (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 OF | [facility] | | | INSULIN | | + + + + | 2023-03-04 21:44 | OTHER YARD SWITCHER (CURRENT) | [facility] | | | DRUG THERAPY | | + + + + | 2023-03-04 21:44 | ALLERGY STATUS TO OTHER | [facility] | | | ANTIBIOTIC AGENTS STATUS | | + + + + | 2023-03-04 21:44 | ALLERGY STATUS TO | [facility] | | | SULFONAMIDES STATUS | | + + + + | 2023-03-04 21:44 | ALLERGY STATUS TO NARCOTIC | [facility] | | | AGENT STATUS | | + + + + | 2023-03-04 21:44 | ALLERGY STATUS TO OTH | [facility] | | | DRUG/MEDS/BIOL SUBST STATUS | | | | | | + + + + | 2023-03-12 00:00 | Poorly controlled diabetes | [facility] | | | mellitus | | + + + + | 2023-03-12 00:00 | Poorly controlled diabetes | [facility] | | | mellitus | | + + + + | [...] + + + | 2023-03-12 11:46 | USP (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 OF | [facility] | | [...] + + + | 2023-03-20 13:05 | USP (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 OF | [facility] | | | INSULIN | | + + + + | 2023-03-20 13:05 | OTHER USP (CURRENT) | [facility] | | | DRUG [...] + + + | 2023-04-08 00:15 | YARD SWITCHER (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 OF | [facility] | | [...] | | + + + + | 2023-04-10 00:00 | Uncontrolled type 1 | 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 | + + + + | 2023-04-22 [...] + + + | 2023-04-22 00:28 | USP (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 OF | [facility] | | | INSULIN | | + + + + | 2023-04-22 00:28 | OTHER USP (CURRENT) | [facility] | | | DRUG [...] | + + + + | 2023-05-05 00:00 | Flank pain | [facility] | + + + + | 2023-05-05 [...] + + + | 2023-05-05 21:18 | USP (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 OF | [facility] | | | INSULIN | | + + + + | 2023-05-05 21:18 | OTHER USP (CURRENT) | [facility] | | | DRUG [...] | | | + + + + Procedures + + + + | date | description | facility | + + + + | 2022-03-20 00:00 | EXCISION OF RIGHT LARGE | [facility] | | | INTESTINE, ENDO, DIAGN | | + + + + | 2022-03-20 00:00 | EXCISION OF LEFT LARGE | [facility] | | | INTESTINE, ENDO, DIAGN | | + + + + | 2022-03-20 00:00 | EXCISION OF CECUM, ENDO, | [facility] | | | DIAGN | | + + + + | 2022-03-20 00:00 | EXCISION OF SIGMOID COLON, | [facility] | | | ENDO, DIAGN | | + + + + | 2022-03-20 00:00 | EXCISION OF RECTUM, ENDO, | [facility] | | | DIAGN | | + + + + | 2022-03-20 00:00 | TRANSFUSE NONAUT RED BLOOD | [facility] | | | CELLS IN PERIPH VEIN, PERC | | | | | | + + + + | 2022-03-20 00:00 | Colonoscopy with biopsy of | [facility] | | | colon | | + + + + Results/Labs +--------+--------+ +---------+--------+---------+ | test | date | facility | value | unit | notes | +--------+--------+ +---------+--------+---------+ + + | Result panel 1 | + + + + + +-----+ + + | | (no date) | [facility] | A | (missing) | (missing) | | (unavailable | [facility] | | | | + + + +-----+ + + + + | Result panel 2 | + + + + + + + + + | | (no date) | [facility] | POSITIVE | (missing) | (missing) | | (unavailable | [facility] | | | | + + + + + + + + + | Result panel 3 | + + + + + + + + + | | (no date) | [facility] | COMPATIBLE | (missing) | (missing) | | (unavailable | [facility] | | | | + + + + + + + + + | Result panel 4 | + + + + + + + + + | | (no date) | [facility] | COMPATIBLE | (missing) | (missing) | | (unavailable | [facility] | | | | + + + + + + + + + | Result panel 5 | + + + + + + + + + | | (no date) | [facility] | | (missing) | (missing) | | (unavailable | [facility] [phone] | | | | ) | | [facility] | 00D | | | + + + + + + + + + | Result panel 6 | + + + + + + + + + | | (no date) | [facility] | BLOOD IN | (missing) | (missing) | | (unavailable | [facility] LAB [facility] | | [facility] | | | | + + + + + + + + + | Result panel 7 | + + + + + +-----+ + + | | (no date) | [facility] | A | (missing) | (missing) | | (unavailable | [facility] | | | | + + + +-----+ + + + + | Result panel 8 | + + + + + + + + + | | (no date) | [facility] | POSITIVE | (missing) | (missing) | | (unavailable | [facility] | | | | + + + + + + + + + | Result panel 9 | + + + + + + + + + | | (no date) | [facility] | COMPATIBLE | (missing) | (missing) | | (unavailable | [facility] | | | | + + + + + + + + + | Result panel 10 | + + + + + + + + + | | (no date) | [facility] | COMPATIBLE | (missing) | (missing) | | (unavailable | [facility] | | | | + + + + + + + + + | Result panel 11 | + + + + + + + + + | | (no date) | [facility] | | (missing) | (missing) | | (unavailable | | [facility] [phone] | | | | ) | | [facility] | 00D | | | + + + + + + + + + | Result panel 12 | + + + + + + + + + | | (no date) | [facility] | BLOOD IN | (missing) | (missing) | | (unavailable | | [facility] | | | | + + + + + + + + + | Result panel 13 | + + + + + +-----+ + + | | (no date) | [facility] | A | (missing) | (missing) | | (unavailable | | [facility] | | | | + + + +-----+ + + + + | Result panel 14 | + + + + + + + + + | | (no date) | [facility] | POSITIVE | (missing) | (missing) | | (unavailable | | [facility] | | | | + + + + + + + + + | Result panel 15 | + + + + + + + + + | | (no date) | [facility] | COMPATIBLE | (missing) | (missing) | | (unavailable | | [facility] | | | | + + + + + + + + + | Result panel 16 | + + + + + + + + + | | (no date) | [facility] | COMPATIBLE | (missing) | (missing) | | (unavailable | | [facility] | | | | + + + + + + + + + | Result panel 17 | + + + + + + + + + | | (no date) | [facility] | | (missing) | (missing) | | (unavailable | | [facility] [phone] | | | | ) | | [facility] | 00D | | | + + + + + + + + + | Result panel 18 | + + + + + + + + + | | (no date) | [facility] | BLOOD IN | (missing) | (missing) | | (unavailable | | [facility] | | | | + + + + + + + + + | Result panel 19 | + + + + + +-----+ + + | | (no date) | [facility] | A | (missing) | (missing) | | (unavailable | | [facility] | | | | + + + +-----+ + + + + | Result panel 20 | + + + + + + + + + | | (no date) | [facility] | POSITIVE | (missing) | (missing) | | (unavailable | | [facility] | | | | + + + + + + + + + | Result panel 21 | + + + + + + + + + | | (no date) | [facility] | COMPATIBLE | (missing) | (missing) | | (unavailable | | [facility] | | | | + + + + + + + + + | Result panel 22 | + + + + + + + + + | | (no date) | [facility] | COMPATIBLE | (missing) | (missing) | | (unavailable | | [facility] | | | | + + + + + + + + + | Result panel 23 | + + + + + + + + + | | (no date) | [facility] | | (missing) | (missing) | | (unavailable | | [facility] | [phone] | | | | ) | | [facility] | 00D | | | + + + + + + + + + | Result panel 24 | + + + + + + + + + | | (no date) | [facility] | BLOOD IN | (missing) | (missing) | | (unavailable | | [facility] | | | | + + + + + + + + + | Result panel 25 | + + + + + +--------+ + + | Blood pH | 2018-10-15 | [facility] | 7.41 | (missing) | (missing) | | | 14:54 | [facility] | | | | + + + +--------+ + + + + | Result panel 26 | + + + + + +--------+ + + | Blood | 2018-10-15 | [facility] | 44.3 | (missing) | (missing) | | partial | 14:54 | [facility] | | | | | pressure of | | Hospital | | | | | carbon | | | | | | | dioxide | | | | | | | measurement | | | | | | + + + +--------+ + + + + | Result panel 27 | + + + + + +------+ + + | Blood | 2018-10-15 | [facility] | 79 | (missing) | (missing) | | partial | 14:54 | [facility] | | | | | pressure of | | Hospital | | | | | oxygen | | | | | | | measurement | | | | | | + + + +------+ + + + + | Result panel 28 | + + + + + +--------+ + + | Blood | 2018-10-15 | [facility] | 27.2 | (missing) | (missing) | | bicarbonate | 14:54 | [facility] | | | | | measurement | | Hospital | | | | | (moles/volum | | | | | | | e) | | | | | | + + + +--------+ + + + + | Result panel 29 | + + + + + +-------+ + + | Blood base | 2018-10-15 | [facility] | 2.7 | (missing) | (missing) | | excess by | 14:54 | [facility] | | | | calculation | | Hospital | | | | + + + +-------+ + + + + | Result panel 30 | + + + + + +--------+ + + | Whole blood | 2018-10-15 | [facility] | 97.0 | (missing) | (missing) | | oxygen | 14:54 | [facility] | | | | | saturation | | Hospital | | | | | measurement | | | | | | + + + +--------+ + + + + | Result panel 31 | + + + + + + + + + | Oxygen | 2018-10-15 | [facility] | ROOM AIR | (missing) | (missing) | | therapy | 14:54 | [facility] | | | | + + + + + + + + + | Result panel 32 | + + + + + +--------+ + + | Blood | 2018-10-15 | [facility] | 28.6 | (missing) | (missing) | | carbon | 14:54 | [facility] | | | | | dioxide, | | Hospital | | | | | total | | | | | | | measurement | | | | | | | (moles/volum | | | | | | | e) | | | | | | + + + +--------+ + + + + | Result panel 33 | + + + + + + + + + | Specimen | 2018-10-15 | [facility] | VENOUS | (missing) | (missing) | | type | 14:54 | [facility] | | | | + + + + + + + + + | Result panel 34 | + + + + + +-------+ + + | Serum or | 2018-10-15 | [facility] | 6.1 | (missing) | (missing) | | plasma | 14:54 | [facility] | | | | | protein | | Hospital | | | | | measurement | | | | | | | (mass/volume | | | | | | | ) | | | | | | + + + +-------+ + + + + | Result panel 35 | + + + + + +-------+ + + | Serum or | 2018-10-15 | [facility] | 3.4 | (missing) | (missing) | | plasma | 14:54 | [facility] | | | | | albumin | | Hospital | | | | | measurement | | | | | | | (mass/volume | | | | | | | ) | | | | | | + + + +-------+ + + + + | Result panel 36 | + + + + + +-------+ + + | Serum | 2018-10-15 | [facility] | 2.7 | (missing) | (missing) | | globulin | 14:54 | [facility] | | | | | measurement | | Hospital | | | | | (mass/volume | | | | | | | ) | | | | | | + + + +-------+ + + + + | Result panel 37 | + + + + + +-------+ + + | Serum or | 2018-10-15 | [facility] | 1.3 | (missing) | (missing) | | plasma | 14:54 | [facility] | | | | | albumin/glob | | Hospital | | | | | ulin mass | | | | | | | ratio | | | | | | + + + +-------+ + + + + | Result panel 38 | + + + + + +-------+ + + | Serum or | 2018-10-15 | [facility] | 0.3 | (missing) | (missing) | | plasma total | 14:54 | [facility] | | | | | bilirubin | | Hospital | | | | | measurement | | | | | | | (mass/volume | | | | | | | ) | | | | | | + + + +-------+ + + + + | Result panel 39 | + + + + + +------+ + + | Serum or | 2018-10-15 | [facility] | 19 | (missing) | (missing) | | plasma | 14:54 | [facility] | | | | | aspartate | | Hospital | | | | | aminotransfe | | | | | | | rase | | | | | | | measurement | | | | | | | (enzymatic | | | | | | | activity/vol | | | | | | | ume) | | | | | | + + + +------+ + + + + | Result panel 40 | + + + + + +------+ + + | Serum or | 2018-10-15 | [facility] | 17 | (missing) | (missing) | | plasma | 14:54 | [facility] | | | | | alanine | | Hospital | | | | | aminotransfe | | | | | | | rase | | | | | | | measurement | | | | | | | (enzymatic | | | | | | | activity/vol | | | | | | | ume) | | | | | | + + + +------+ + + + + | Result panel 41 | + + + + + +------+ + + | Serum or | 2018-10-15 | [facility] | 94 | (missing) | (missing) | | plasma | 14:54 | [facility] | | | | | alkaline | | Hospital | | | | | phosphatase | | | | | | | measurement | | | | | | | (enzymatic | | | | | | | activity/vol | | | | | | | ume) | | | | | | + + + +------+ + + + + | Result panel 42 | + + + + + + + + + | Serum or | 2018-10-15 | [facility] | NEGATIVE | (missing) | (missing) | | plasma | 14:54 | [facility] | | | | | acetone | | Hospital | | | | | detection by | | | | | | | screening | | | | | | | method | | | | | | + + + + + + + + + | Result panel 43 | + + + + + + + + + | Serum or | 2018-10-15 | [facility] | NEGATIVE | (missing) | (missing) | | plasma | 14:54 | [facility] | | | | | choriogonado | | Hospital | | | | | tropin | | | | | | | ( | | | | | | | test) | | | | | | | detection | | | | | | + + + + + + + + + | Result panel 44 | + + + + + + + + + | Color of | 2018-10-15 | [facility] | YELLOW | (missing) | (missing) | | Urine by | 18:15 | [facility] | | | | | Auto | | Hospital | | | | + + + + + + + + + | Result panel 45 | + + + + + +---------+ + + | Character | 2018-10-15 | [facility] | CLEAR | (missing) | (missing) | | of Urine | 18:15 | [facility] | | | [facility] | | | | + + + +---------+ + + + + | Result panel 46 | + + + + + +---------+ + + | Glucose | 2018-10-15 | [facility] | LARGE | (missing) | (missing) | | [Presence] | 18:15 | [facility] | | | | | in Urine by | | Hospital | | | | | Test strip | | | | | | + + + +---------+ + + + + | Result panel 47 | + + + + + + + + + | Urine total | 2018-10-15 | [facility] | NEGATIVE | (missing) | (missing) | | bilirubin | 18:15 | [facility] | | | | | detection by | | Hospital | | | | | test strip | | | | | | + + + + + + + + + | Result panel 48 | + + + + + + + + + | Urine | 2018-10-15 | [facility] | NEGATIVE | (missing) | (missing) | | ketones | 18:15 | [facility] | | | | | detection by | | Hospital | | | | | test strip | | | | | | + + + + + + + + + | Result panel 49 | + + + + + +---------+ + + | Specific | 2018-10-15 | [facility] | 1.011 | (missing) | (missing) | | gravity ur | 18:15 | [facility] | | | | | dipstick | | Hospital | | | | + + + +---------+ + + + + | Result panel 50 | + + + + + + + + + | Urine | 2018-10-15 | [facility] | NEGATIVE | (missing) | (missing) | | hemoglobin | 18:15 | [facility] | | | | | detection by | | Hospital | | | | | test strip | | | | | | + + + + + + + + + | Result panel 51 | + + + + + +-----+ + + | Urine pH | 2018-10-15 | [facility] | 6 | (missing) | (missing) | | measurement | 18:15 | [facility] | | | | | by test | | Hospital | | | | | strip | | | | | | + + + +-----+ + + + + | Result panel 52 | + + + + + +------+ + + | Protein | 2018-10-15 | [facility] | 30 | (missing) | (missing) | | urine test | 18:15 | [facility] | | | | | strip | | Hospital | | | | + + + +------+ + + + + | Result panel 53 | + + + + + + + + + | | 2018-10-15 | [facility] | NORMAL | (missing) | (missing) | | Urobilinogen | 18:15 | [facility] | | | | | | [facility] | | | | | [Mass/volume | | | | | | | ] in Urine | | | | | | | by Test | | | | | | | strip | | | | | | + + + + + + + + + | Result panel 54 | + + + + + + + + + | Urine | 2018-10-15 | [facility] | NEGATIVE | (missing) | (missing) | | nitrite | 18:15 | [facility] | | | | | detection by | | Hospital | | | | | test strip | | | | | | + + + + + + + + + | Result panel 55 | + + + + + +---------+ + + | Urine | 2018-10-15 | [facility] | SMALL | (missing) | (missing) | | leukocyte | 18:15 | [facility] | | | | | esterase | | Hospital | | | | | detection by | | | | | | | dipstick | | | | | | + + + +---------+ + + + + | Result panel 56 | + + + + + +-----+ + + | RBC #/area | 2018-10-15 | [facility] | 0 | (missing) | (missing) | | UrnS HPF | 18:15 | [facility] | | | | | [facility] | | | | + + + +-----+ + + + + | Result panel 57 | + + + + + +-----+ + + | Automated | 2018-10-15 | [facility] | 2 | (missing) | (missing) | | urine | 18:15 | [facility] | | | | | sediment | | Hospital | | | | | leukocyte | | | | | | | count by | | | | | | | microscopy | | | | | | | (number/high | | | | | | | power | | | | | | | field) | | | | | | + + + +-----+ + + + + | Result panel 58 | + + + + + + + + + | Automated | 2018-10-15 | [facility] | SQUAMOUS 1+ | (missing) | (missing) | | urine | 18:15 | [facility] | | | | | sediment | | Hospital | | | | | epithelial | | | | | | | cell count | | | | | | | by | | | | | | | microscopy | | | | | | | (number/high | | | | | | | power | | | | | | | field) | | | | | | + + + + + + + + + | Result panel 59 | + + + + + + + + + | Crystal | 2018-10-15 | [facility] | NEGATIVE | (missing) | (missing) | | typing in | 18:15 | [facility] | | | | | urine | | Hospital | | | | | sediment by | | | | | | | light | | | | | | | microscopy | | | | | | + + + + + + + + + | Result panel 60 | + + + + + +------+ + + | Automated | 2018-10-15 | [facility] | 1+ | (missing) | (missing) | | urine | 18:15 | [facility] | | | | | sediment | | Hospital | | | | | bacteria | | | | | | | count by | | | | | | | microscopy | | | | | | | (number/high | | | | | | | power | | | | | | | field) | | | | | | + + + +------+ + + + + | Result panel 61 | + + + + + + + + + | Automated | 2018-10-15 | [facility] | NEGATIVE | (missing) | (missing) | | casts count | 18:15 | [facility] | | | | | in urine | | Hospital | | | | | sediment by | | | | | | | microscopy | | | | | | | low power | | | | | | | field | | | | | | | (number/area | | | | | | | ) | | | | | | + + + + + + + + + | Result panel 62 | + + + + + + + + + | Urn Spec | 2018-10-15 | [facility] | CLEAN CATCH | (missing) | (missing) | | Collect Meth | 18:15 | [facility] | | | | | Ur | | Hospital | | | | + + + + + + + + + | Result panel 63 | + + + + + +--------+ + + | Serum or | 2018-10-17 | [facility] | 2187 | (missing) | (missing) | | plasma | 06:00 | [facility] | | | | | lipase | | Hospital | | | | | measurement | | | | | | | (enzymatic | | | | | | | activity/vol | | | | | | | ume) | | | | | | + + + +--------+ + + + + | Result panel 64 | + + + + + +-------+ + + | Serum or | 2018-10-18 | [facility] | 4.6 | (missing) | (missing) | | plasma | 05:30 | [facility] | | | | | phosphate | | Hospital | | | | | measurement | | | | | | | (mass/volume | | | | | | | ) | | | | | | + + + +-------+ + + + + | Result panel 65 | + + + + + +-------+ + + | Serum or | 2018-10-18 | [facility] | 546 | (missing) | (missing) | | plasma | 05:30 | [facility] | | | | | triglyceride | | Hospital | | | | | measurement | | | | | | | | | | | | | | (mass/volume | | | | | | | ) | | | | | | + + + +-------+ + + + + | Result panel 66 | + + + + + +-------+ + + | Blood | 2018-10-19 | [facility] | 4.8 | (missing) | (missing) | | leukocytes | 06:08 | [facility] | | | | | automated | | Hospital | | | | | count | | | | | | | (number/volu | | | | | | | me) | | | | | | + + + +-------+ + + + + | Result panel 67 | + + + + + +--------+ + + | Blood | 2018-10-19 | [facility] | 3.34 | (missing) | (missing) | | erythrocytes | 06:08 | [facility] | | | | | automated | | Hospital | | | | | count | | | | | | | (number/volu | | | | | | | me) | | | | | | + + + +--------+ + + + + | Result panel 68 | + + + + + +-------+ + + | Blood | 2018-10-19 | [facility] | 9.8 | (missing) | (missing) | | hemoglobin | 06:08 | [facility] | | | | | measurement | | Hospital | | | | | (mass/volume | | | | | | | ) | | | | | | + + + +-------+ + + + + | Result panel 69 | + + + + + +--------+ + + | Automated | 2018-10-19 | [facility] | 29.4 | (missing) | (missing) | | blood | 06:08 | [facility] | | | | hematocrit | | Hospital | | | | + + + +--------+ + + + + | Result panel 70 | + + + + + +--------+ + + | Automated | 2018-10-19 | [facility] | 87.3 | (missing) | (missing) | | erythrocyte | 06:08 | [facility] | | | | | mean | | Hospital | | | | | corpuscular | | | | | | | volume | | | | | | + + + +--------+ + + + + | Result panel 71 | + + + + + +------+ + + | Automated | 2018-10-19 | [facility] | 29 | (missing) | (missing) | | erythrocyte | 06:08 | [facility] | | | | | mean | | Hospital | | | | | corpuscular | | | | | | | hemoglobin | | | | | | | (mass per | | | | | | | erythrocyte) | | | | | | | | | | | | | + + + +------+ + + + + | Result panel 72 | + + + + + +------+ + + | Automated | 2018-10-19 | [facility] | 33 | (missing) | (missing) | | erythrocyte | 06:08 | [facility] | | | | | mean | | Hospital | | | | | corpuscular | | | | | | | hemoglobin | | | | | | | concentratio | | | | | | | n | | | | | | | measurement | | | | | | | (mass/volume | | | | | | | ) | | | | | | + + + +------+ + + + + | Result panel 73 | + + + + + +--------+ + + | Automated | 2018-10-19 | [facility] | 14.6 | (missing) | (missing) | | erythrocyte | 06:08 | [facility] | | | | | distribution | | Hospital | | | | | width | | | | | | + + + +--------+ + + + + | Result panel 74 | + + + + + +-------+ + + | Automated | 2018-10-19 | [facility] | 300 | (missing) | (missing) | | blood | 06:08 | [facility] | | | | | platelet | | Hospital | | | | | count | | | | | | | (count/volum | | | | | | | e) | | | | | | + + + +-------+ + + + + | Result panel 75 | + + + + + +--------+ + + | Automated | 2018-10-19 | [facility] | 46.6 | (missing) | (missing) | | blood | 06:08 | [facility] | | | | | neutrophil | | Hospital | | | | | count as | | | | | | | percentage | | | | | | | of total | | | | | | | leukocytes | | | | | | + + + +--------+ + + + + | Result panel 76 | + + + + + +--------+ + + | Automated | 2018-10-19 | [facility] | 41.4 | (missing) | (missing) | | blood | 06:08 | [facility] | | | | | lymphocyte | | Hospital | | | | | count as | | | | | | | percentage | | | | | | | ot total | | | | | | | leukocytes | | | | | | + + + +--------+ + + + + | Result panel 77 | + + + + + +-------+ + + | Automated | 2018-10-19 | [facility] | 9.3 | (missing) | (missing) | | blood | 06:08 | [facility] | | | | | monocyte | | Hospital | | | | | count as | | | | | | | percentage | | | | | | | of total | | | | | | | leukocytes | | | | | | + + + +-------+ + + + + | Result panel 78 | + + + + + +-------+ + + | Automated | 2018-10-19 | [facility] | 2.4 | (missing) | (missing) | | blood | 06:08 | [facility] | | | | | eosinophil | | Hospital | | | | | count as | | | | | | | percentage | | | | | | | of total | | | | | | | leukocytes | | | | | | + + + +-------+ + + + + | Result panel 79 | + + + + + +-------+ + + | Automated | 2018-10-19 | [facility] | 0.7 | (missing) | (missing) | | blood | 06:08 | [facility] | | | | | basophil | | Hospital | | | | | count as | | | | | | | percentage | | | | | | | of total | | | | | | | leukocytes | | | | | | + + + +-------+ + + + + | Result panel 80 | + + + + + +-------+ + + | Serum or | 2018-10-19 | [facility] | 228 | (missing) | (missing) | | plasma | 06:08 | [facility] | | | | | glucose | | Hospital | | | | | measurement | | | | | | | (mass/volume | | | | | | | ) | | | | | | + + + +-------+ + + + + | Result panel 81 | + + + + + +------+ + + | Serum or | 2018-10-19 | [facility] | 19 | (missing) | (missing) | | plasma urea | 06:08 | [facility] | | | | | nitrogen | | Hospital | | | | | measurement | | | | | | | (mass/volume | | | | | | | ) | | | | | | + + + +------+ + + + + | Result panel 82 | + + + + + +--------+ + + | Serum or | 2018-10-19 | [facility] | 0.79 | (missing) | (missing) | | plasma | 06:08 | [facility] | | | | | creatinine | | Hospital | | | | | measurement | | | | | | | (mass/volume | | | | | | | ) | | | | | | + + + +--------+ + + + + | Result panel 83 | + + + + + +------+ + + | Estimated | 2018-10-19 | [facility] | 94 | (missing) | (missing) | | glomerular | 06:08 | [facility] | | | | | filtration | | Hospital | | | | | rate (GFR) | | | | | | | non- | | | | | | | [facility] | | | | | | + + + +------+ + + + + | Result panel 84 | + + + + + +--------+ + + | Serum or | 2018-10-19 | [facility] | 24.1 | (missing) | (missing) | | plasma urea | 06:08 | [facility] | | | | | nitrogen/cre | | Hospital | | | | | atinine mass | | | | | | | ratio | | | | | | + + + +--------+ + + + + | Result panel 85 | + + + + + +-------+ + + | Serum or | 2018-10-19 | [facility] | 138 | (missing) | (missing) | | plasma | 06:08 | [facility] | | | | | sodium | | Hospital | | | | | measurement | | | | | | | (moles/volum | | | | | | | e) | | | | | | + + + +-------+ + + + + | Result panel 86 | + + + + + +-------+ + + | Serum or | 2018-10-19 | [facility] | 4.2 | (missing) | (missing) | | plasma | 06:08 | [facility] | | | | | potassium | | Hospital | | | | | measurement | | | | | | | (moles/volum | | | | | | | e) | | | | | | + + + +-------+ + + + + | Result panel 87 | + + + + + +-------+ + + | Serum or | 2018-10-19 | [facility] | 101 | (missing) | (missing) | | plasma | 06:08 | [facility] | | | | | chloride | | Hospital | | | | | measurement | | | | | | | (moles/volum | | | | | | | e) | | | | | | + + + +-------+ + + + + | Result panel 88 | + + + + + +------+ + + | Serum or | 2018-10-19 | [facility] | 30 | (missing) | (missing) | | plasma | 06:08 | [facility] | | | | | carbon | | Hospital | | | | | dioxide, | | | | | | | total | | | | | | | measurement | | | | | | | (moles/volum | | | | | | | e) | | | | | | + + + +------+ + + + + | Result panel 89 | + + + + + +--------+ + + | Serum or | 2018-10-19 | [facility] | 11.2 | (missing) | (missing) | | plasma anion | 06:08 | [facility] | | | | | gap 4 | | Hospital | | | | + + + +--------+ + + + + | Result panel 90 | + + + + + +-------+ + + | Serum or | 2018-10-19 | [facility] | 8.8 | (missing) | (missing) | | plasma | 06:08 | [facility] | | | | | calcium | | Hospital | | | | | measurement | | | | | | | (mass/volume | | | | | | | ) | | | | | | + + + +-------+ + + + + | Result panel 91 | + + + + + +-------+ + + | Serum or | 2018-10-19 | [facility] | 2.0 | (missing) | (missing) | | plasma | 06:08 | [facility] | | | | | magnesium | | Hospital | | | | | measurement | | | | | | | (mass/volume | | | | | | | ) | | | | | | + + + +-------+ + + + + | Result panel 92 | + + + + + +-------+ + + | Glucose | 2018-10-19 | [facility] | 226 | (missing) | (missing) | | Bld-mCnc | 08:06 | [facility] | | [facility] | | | | + + + +-------+ + + + + | Result panel 93 | + + + + + + + + + | | 2021-11-08 | [facility] | < 0.27 | (missing) | (missing) | | (unavailable | 01:34 | [facility] | | [facility] | ) | | [facility] | | | | + + + + + + + + + | Result panel 94 | + + + + + +-------+ + + | | 2021-11-08 | [facility] | 8.4 | (missing) | (missing) | | (unavailable | 01:34 | [facility] | | [facility] | ) | | [facility] | | | | + + + +-------+ + + + + | Result panel 95 | + + + + + + + + + | Fibrin | 2021-11-08 | [facility] | < 0.27 | (missing) | (missing) | | D-dimer FEU | 01:34 | [facility] | | | | | [Mass/volume | | Hospital | | | | | ] in | | | | | | | Platelet | | | | | | | poor plasma | | | | | | | by | | | | | | | Immunoassay | | | | | | + + + + + + + + + | Result panel 96 | + + + + + +-------+ + + | Serum or | 2021-11-08 | [facility] | 8.4 | (missing) | (missing) | | plasma | 01:34 | [facility] | | | | | cardiac | | Hospital | | | | | troponin I | | | | | | | measurement | | | | | | | by high | | | | | | | senstivity | | | | | | | method | | | | | | | (mass/volume | | | | | | | ) | | | | | | + + + +-------+ + + + + | Result panel 97 | + + + + + + + + + | | 2021-11-08 | [facility] | < 0.27 | (missing) | (missing) | | (unavailable | 01:34 | [facility] | [facility] ) | | [facility] | | | | + + + + + + + + + | Result panel 98 | + + + + + +-------+ + + | | 2021-11-08 | [facility] | 8.4 | (missing) | (missing) | | (unavailable | 01:34 | [facility] | | [facility] | ) | | [facility] | | | | + + + +-------+ + + + + | Result panel 99 | + + + + + + + + + | Bacterial | 2022-03-04 | [facility] | SEE | (missing) | (missing) | | urine | 17:10 | [facility] | SEPARATE | | | | culture | | Hospital | REPORT | | | + + + + + + + + + | Result panel 100 | + + + + + +--------+ + + | Venous | 2022-03-07 | [facility] | 7.34 | (missing) | (missing) | | whole blood | 01:50 | [facility] | | | | pH | | [facility] | | | | | measurement | | | | | | + + + +--------+ + + + + | Result panel 101 | + + + + + + + + + | Serum or | 2022-03-07 | [facility] | NEGATIVE | (missing) | (missing) | | plasma | 01:50 | [facility] | | | | acetone | | Hospital | | | | | detection by | | | | | | | screening | | | | | | | method | | | | | | + + + + + + + + + | Result panel 102 | + + + + + +--------+ + + | | 2022-03-07 | [facility] | 7.34 | (missing) | (missing) | | (unavailable | 01:50 | [facility] | | | | + + + +--------+ + + + + | Result panel 103 | + + + + + + + + + | | 2022-03-07 | [facility] | NEGATIVE | (missing) | (missing) | | (unavailable | 01:50 | [facility] | | | | + + + + + + + + + | Result panel 104 | + + + + + +--------+ + + | | 2022-03-07 | [facility] | 7.34 | (missing) | (missing) | | (unavailable | 01:50 | [facility] | | | | + + + +--------+ + + + + | Result panel 105 | + + + + + + + + + | | 2022-03-07 | [facility] | NEGATIVE | (missing) | (missing) | | (unavailable | 01:50 | [facility] | | | | + + + + + + + + + | Result panel 106 | + + + + + +--------+ + + | | 2022-03-07 | [facility] | 7.34 | (missing) | (missing) | | (unavailable | 01:50 | [facility] | | | | + + + +--------+ + + + + | Result panel 107 | + + + + + + + + + | | 2022-03-07 | [facility] | NEGATIVE | (missing) | (missing) | | (unavailable | 01:50 | [facility] | | | | + + + + + + + + + | Result panel 108 | + + + + + +--------+ + + | | 2022-03-07 | [facility] | 7.34 | (missing) | (missing) | | (unavailable | 01:50 | [facility] | | | | + + + +--------+ + + + + | Result panel 109 | + + + + + + + + + | | 2022-03-07 | [facility] | NEGATIVE | (missing) | (missing) | | (unavailable | 01:50 | [facility] | | | | + + + + + + + + + | Result panel 110 | + + + + + + + + + | Urine human | 2022-03-12 | [facility] | NEGATIVE | (missing) | (missing) | | chorionic | 02:30 | [facility] | | | | gonadotropin | | Hospital | | | | | (hCG) | | | | | | | detection | | | | | | + + + + + + + + + | Result panel 111 | + + + + + + + + + | | 2022-03-12 | [facility] | NEGATIVE | (missing) | (missing) | | (unavailable | 02:30 | [facility] ) | | [facility] | | | | + + + + + + + + + | Result panel 112 | + + + + + + + + + | | 2022-03-12 | [facility] | NEGATIVE | (missing) | (missing) | | (unavailable | 02:30 | [facility] | | | | + + + + + + + + + | Result panel 113 | + + + + + + + + + | | 2022-03-12 | [facility] | NEGATIVE | (missing) | (missing) | | (unavailable | 02:30 | [facility] | | | | + + + + + + + + + | Result panel 114 | + + + + + + + + + | | 2022-03-12 | [facility] | NEGATIVE | (missing) | (missing) | | (unavailable | 02:30 | [facility] | | | | + + + + + + + + + | Result panel 115 | + + + + + + + + + | Serum or | 2022-03-16 | [facility] | NEGATIVE | (missing) | (missing) | | plasma | 08:30 | [facility] | | choriogonado | | [facility] | | | | | tropin | | | | | | | ( | | | | | | | test) | | | | | | | detection | | | | | | + + + + + + + + + | Result panel 116 | + + + + + + + + + | | 2022-03-16 | [facility] | NEGATIVE | (missing) | (missing) | | (unavailable | 08:30 | [facility] | | | | + + + + + + + + + | Result panel 117 | + + + + + + + + + | | 2022-03-16 | [facility] | NEGATIVE | (missing) | (missing) | | (unavailable | 08:30 | [facility] | | | | + + + + + + + + + | Result panel 118 | + + + + + + + + + | | 2022-03-16 | [facility] | NEGATIVE | (missing) | (missing) | | (unavailable | 08:30 | [facility] | | | | + + + + + + + + + | Result panel 119 | + + + + + + + + + | | 2022-03-16 | [facility] | NEGATIVE | (missing) | (missing) | | (unavailable | 08:30 | [facility] | | | | + + + + + + + + + | Result panel 120 | + + + + + +--------+ + + | Hgb A1c % | 2022-03-17 | [facility] | 10.8 | (missing) | (missing) | | | 06:00 | [facility] | | | | + + + +--------+ + + + + | Result panel 121 | + + + + + +--------+ + + | | 2022-03-17 | [facility] | 10.8 | (missing) | (missing) | | (unavailable | 06:00 | [facility] | | | | + + + +--------+ + + + + | Result panel 122 | + + + + + +--------+ + + | | 2022-03-17 | [facility] | 10.8 | (missing) | (missing) | | (unavailable | 06:00 | [facility] | | | | + + + +--------+ + + + + | Result panel 123 | + + + + + +--------+ + + | | 2022-03-17 | [facility] | 10.8 | (missing) | (missing) | | (unavailable | 06:00 | [facility] | | | | + + + +--------+ + + + + | Result panel 124 | + + + + + +--------+ + + | | 2022-03-17 | [facility] | 10.8 | (missing) | (missing) | | (unavailable | 06:00 | [facility] | | | | + + + +--------+ + + + + | Result panel 125 | + + + + + + + + + | Serum or | 2022-03-17 | [facility] | SEE SCANNED | (missing) | (missing) | | plasma iron | 14:36 | [facility]PORT | | | | measurement | | Hospital | | | | | (mass/volume | | | | | | | ) | | | | | | + + + + + + + + + | Result panel 126 | + + + + + + + + + | | 2022-03-17 | [facility] | SEE SCANNED | (missing) | (missing) | | Cyanocobalam | 14:36 | [facility] | | | in | | Hospital | | | | | measurement | | | | | | + + + + + + + + + | Result panel 127 | + + + + + + + + + | Serum or | 2022-03-17 | [facility] | SEE SCANNED | (missing) | (missing) | | plasma | 14:36 | [facility] | | | | ferritin | | Hospital | | | | | measurement | | | | | | | (mass/volume | | | | | | | ) | | | | | | + + + + + + + + + | Result panel 128 | + + + + + + + + + | Serum or | 2022-03-17 | [facility] | SEE SCANNED | (missing) | (missing) | | plasma | 14:36 | [facility]PORT | | | | calcidiol | | Hospital | | | | | measurement | | | | | | | (mass/volume | | | | | | | ) | | | | | | + + + + + + + + + | Result panel 129 | + + + + + + + + + | | 2022-03-17 | [facility] | SEE SCANNED | (missing) | (missing) | | (unavailable | 14:36 | [facility] ) | | [facility] | | | | + + + + + + + + + | Result panel 130 | + + + + + + + + + | | 2022-03-17 | [facility] | SEE SCANNED | (missing) | (missing) | | (unavailable | 14:36 | [facility] ) | | [facility] | | | | + + + + + + + + + | Result panel 131 | + + + + + + + + + | | 2022-03-17 | [facility] | SEE SCANNED | (missing) | (missing) | | (unavailable | 14:36 | [facility] ) | | [facility] | | | | + + + + + + + + + | Result panel 132 | + + + + + + + + + | | 2022-03-17 | [facility] | SEE SCANNED | (missing) | (missing) | | (unavailable | 14:36 | [facility] ) | | [facility] | | | | + + + + + + + + + | Result panel 133 | + + + + + + + + + | | 2022-03-17 | [facility] | SEE SCANNED | (missing) | (missing) | | (unavailable | 14:36 | [facility] ) | | [facility] | | | | + + + + + + + + + | Result panel 134 | + + + + + + + + + | | 2022-03-17 | [facility] | SEE SCANNED | (missing) | (missing) | | (unavailable | 14:36 | [facility] ) | | [facility] | | | | + + + + + + + + + | Result panel 135 | + + + + + + + + + | | 2022-03-17 | [facility] | SEE SCANNED | (missing) | (missing) | | (unavailable | 14:36 | [facility] ) | | [facility] | | | | + + + + + + + + + | Result panel 136 | + + + + + + + + + | | 2022-03-17 | [facility] | SEE SCANNED | (missing) | (missing) | | (unavailable | 14:36 | [facility] ) | | [facility] | | | | + + + + + + + + + | Result panel 137 | + + + + + + + + + | | 2022-03-17 | [facility] | SEE SCANNED | (missing) | (missing) | | (unavailable | 14:36 | [facility] ) | | [facility] | | | | + + + + + + + + + | Result panel 138 | + + + + + + + + + | | 2022-03-17 | [facility] | SEE SCANNED | (missing) | (missing) | | (unavailable | 14:36 | [facility] ) | | [facility] | | | | + + + + + + + + + | Result panel 139 | + + + + + + + + + | | 2022-03-17 | [facility] | SEE SCANNED | (missing) | (missing) | | (unavailable | 14:36 | [facility] ) | | [facility] | | | | + + + + + + + + + | Result panel 140 | + + + + + + + + + | | 2022-03-17 | [facility] | SEE SCANNED | (missing) | (missing) | | (unavailable | 14:36 | [facility] ) | | [facility] | | | | + + + + + + + + + | Result panel 141 | + + + + + + + + + | | 2022-03-17 | [facility] | SEE SCANNED | (missing) | (missing) | | (unavailable | 14:36 | [facility] ) | | [facility] | | | | + + + + + + + + + | Result panel 142 | + + + + + + + + + | | 2022-03-17 | [facility] | SEE SCANNED | (missing) | (missing) | | (unavailable | 14:36 | [facility] ) | | [facility] | | | | + + + + + + + + + | Result panel 143 | + + + + + + + + + | | 2022-03-17 | [facility] | SEE SCANNED | (missing) | (missing) | | (unavailable | 14:36 | [facility] ) | | [facility] | | | | + + + + + + + + + | Result panel 144 | + + + + + + + + + | | 2022-03-17 | [facility] | SEE SCANNED | (missing) | (missing) | | (unavailable | 14:36 | [facility] ) | | [facility] | | | | + + + + + + + + + | Result panel 145 | + + + + + +-------+ + + | Serum or | 2022-03-19 | [facility] | 236 | (missing) | (missing) | | plasma | 07:10 | [facility] | | | | cholesterol | | Hospital | | | | | measurement | | | | | | | (mass/volume | | | | | | | ) | | | | | | + + + +-------+ + + + + | Result panel 146 | + + + + + +------+ + + | Serum or | 2022-03-19 | [facility] | 31 | (missing) | (missing) | | plasma | 07:10 | [facility] | | | | cholesterol | | Hospital | | | | | in HDL | | | | | | | measurement | | | | | | | (mass/volume | | | | | | | ) | | | | | | + + + +------+ + + + + | Result panel 147 | + + + + + + + + + | Serum or | 2022-03-19 | [facility] | 205.00 | (missing) | (missing) | | plasma | 07:10 | [facility] | | | | cholesterol | | [facility] | | | | | non HDL | | | | | | | measurement | | | | | | | (mass/volume | | | | | | | ) | | | | | | + + + + + + + + + | Result panel 148 | + + + + + +-------+ + + | Serum or | 2022-03-19 | [facility] | 131 | (missing) | (missing) | | plasma | 07:10 | [facility] | | | | cholesterol | | [facility] | | | | | in LDL | | | | | | | measurement | | | | | | | by | | | | | | | calculation | | | | | | | (mass/volume | | | | | | | ) | | | | | | + + + +-------+ + + + + | Result panel 149 | + + + + + +-------+ + + | Serum or | 2022-03-19 | [facility] | 7.6 | (missing) | (missing) | | plasma total | 07:10 | [facility] | | | | | cholesterol/ | | | | | | | cholesterol | | | | | | | in HDL mass | | | | | | | ratio | | | | | | + + + +-------+ + + + + | Result panel 150 | + + + + + +------+ + + | Serum or | 2022-03-19 | [facility] | 73 | (missing) | (missing) | | plasma | 07:10 | [facility] | | | | cholesterol | | Hospital | | | | | in VLDL | | | | | | | measurement | | | | | | | by | | | | | | | calculation | | | | | | | (mass/volume | | | | | | | ) | | | | | | + + + +------+ + + + + | Result panel 151 | + + + + + +-------+ + + | Serum or | 2022-03-19 | [facility] | 369 | (missing) | (missing) | | plasma | 07:10 | [facility] | | | | triglyceride | | Hospital | | | | | measurement | | | | | | | | | | | | | | (mass/volume | | | | | | | ) | | | | | | + + + +-------+ + + + + | Result panel 152 | + + + + + +-------+ + + | Serum or | 2022-03-19 | [facility] | 827 | (missing) | (missing) | | plasma | 07:10 | [facility] | | | | lipase | | Hospital | | | | | measurement | | | | | | | (enzymatic | | | | | | | activity/vol | | | | | | | ume) | | | | | | + + + +-------+ + + + + | Result panel 153 | + + + + + +--------+ + + | Serum or | 2022-03-19 | [facility] | <0.3 | (missing) | (missing) | | plasma | 07:10 | [facility] | | | | lactate | | Hospital | | | | | measurement | | | | | | | (moles/volum | | | | | | | e) | | | | | | + + + +--------+ + + + + | Result panel 154 | + + + + + +-------+---------+ + | | 2022-03-19 | [facility] | 236 | mg/dL | (missing) | | (unavailable | 07:10 | [facility] | | | | + + + +-------+---------+ + + + | Result panel 155 | + + + + + +------+ + + | | 2022-03-19 | [facility] | 31 | (missing) | (missing) | | (unavailable | 07:10 | [facility] | | | | + + + +------+ + + + + | Result panel 156 | + + + + + + + + + | | 2022-03-19 | [facility] | 205.00 | (missing) | (missing) | | (unavailable | 07:10 | [facility] | | | | + + + + + + + + + | Result panel 157 | + + + + + +-------+---------+ + | | 2022-03-19 | [facility] | 131 | mg/dL | (missing) | | (unavailable | 07:10 | [facility] | | | | + + + +-------+---------+ + + + | Result panel 158 | + + + + + +-------+ + + | | 2022-03-19 | [facility] | 7.6 | (missing) | (missing) | | (unavailable | 07:10 | [facility] | | | | + + + +-------+ + + + + | Result panel 159 | + + + + + +------+ + + | | 2022-03-19 | [facility] | 73 | (missing) | (missing) | | (unavailable | 07:10 | [facility] | | | | + + + +------+ + + + + | Result panel 160 | + + + + + +-------+ + + | | 2022-03-19 | [facility] | 369 | (missing) | (missing) | | (unavailable | 07:10 | [facility] | | | | + + + +-------+ + + + + | Result panel 161 | + + + + + +-------+ + + | | 2022-03-19 | [facility] | 827 | (missing) | (missing) | | (unavailable | 07:10 | [facility] | | | | + + + +-------+ + + + + | Result panel 162 | + + + + + +--------+ + + | | 2022-03-19 | [facility] | <0.3 | (missing) | (missing) | | (unavailable | 07:10 | [facility] | | | | + + + +--------+ + + + + | Result panel 163 | + + + + + +-------+---------+ + | | 2022-03-19 | [facility] | 236 | mg/dL | (missing) | | (unavailable | 07:10 | [facility] | | | | + + + +-------+---------+ + + + | Result panel 164 | + + + + + +------+ + + | | 2022-03-19 | [facility] | 31 | (missing) | (missing) | | (unavailable | 07:10 | [facility] | | | | + + + +------+ + + + + | Result panel 165 | + + + + + + + + + | | 2022-03-19 | [facility] | 205.00 | (missing) | (missing) | | (unavailable | 07:10 | [facility] | | | | + + + + + + + + + | Result panel 166 | + + + + + +-------+---------+ + | | 2022-03-19 | [facility] | 131 | mg/dL | (missing) | | (unavailable | 07:10 | [facility] | | | | + + + +-------+---------+ + + + | Result panel 167 | + + + + + +-------+ + + | | 2022-03-19 | [facility] | 7.6 | (missing) | (missing) | | (unavailable | 07:10 | [facility] | | | | + + + +-------+ + + + + | Result panel 168 | + + + + + +------+ + + | | 2022-03-19 | [facility] | 73 | (missing) | (missing) | | (unavailable | 07:10 | [facility] | | | | + + + +------+ + + + + | Result panel 169 | + + + + + +-------+ + + | | 2022-03-19 | [facility] | 369 | (missing) | (missing) | | (unavailable | 07:10 | [facility] | | | | + + + +-------+ + + + + | Result panel 170 | + + + + + +-------+ + + | | 2022-03-19 | [facility] | 827 | (missing) | (missing) | | (unavailable | 07:10 | [facility] | | | | + + + +-------+ + + + + | Result panel 171 | + + + + + +--------+ + + | | 2022-03-19 | [facility] | <0.3 | (missing) | (missing) | | (unavailable | 07:10 | [facility] | | | | + + + +--------+ + + + + | Result panel 172 | + + + + + +-------+---------+ + | | 2022-03-19 | [facility] | 236 | mg/dL | (missing) | | (unavailable | 07:10 | [facility] | | | | + + + +-------+---------+ + + + | Result panel 173 | + + + + + +------+ + + | | 2022-03-19 | [facility] | 31 | (missing) | (missing) | | (unavailable | 07:10 | [facility] | | | | + + + +------+ + + + + | Result panel 174 | + + + + + + + + + | | 2022-03-19 | [facility] | 205.00 | (missing) | (missing) | | (unavailable | 07:10 | [facility] | | | | + + + + + + + + + | Result panel 175 | + + + + + +-------+---------+ + | | 2022-03-19 | [facility] | 131 | mg/dL | (missing) | | (unavailable | 07:10 | [facility] | | | | + + + +-------+---------+ + + + | Result panel 176 | + + + + + +-------+ + + | | 2022-03-19 | [facility] | 7.6 | (missing) | (missing) | | (unavailable | 07:10 | [facility] | | | | + + + +-------+ + + + + | Result panel 177 | + + + + + +------+ + + | | 2022-03-19 | [facility] | 73 | (missing) | (missing) | | (unavailable | 07:10 | [facility] | | | | + + + +------+ + + + + | Result panel 178 | + + + + + +-------+ + + | | 2022-03-19 | [facility] | 369 | (missing) | (missing) | | (unavailable | 07:10 | [facility] | | | | + + + +-------+ + + + + | Result panel 179 | + + + + + +-------+ + + | | 2022-03-19 | [facility] | 827 | (missing) | (missing) | | (unavailable | 07:10 | [facility] | | | | + + + +-------+ + + + + | Result panel 180 | + + + + + +--------+ + + | | 2022-03-19 | [facility] | <0.3 | (missing) | (missing) | | (unavailable | 07:10 | [facility] | | | | + + + +--------+ + + + + | Result panel 181 | + + + + + +-------+---------+ + | | 2022-03-19 | [facility] | 236 | mg/dL | (missing) | | (unavailable | 07:10 | [facility] | | | | + + + +-------+---------+ + + + | Result panel 182 | + + + + + +------+ + + | | 2022-03-19 | [facility] | 31 | (missing) | (missing) | | (unavailable | 07:10 | [facility] | | | | + + + +------+ + + + + | Result panel 183 | + + + + + + + + + | | 2022-03-19 | [facility] | 205.00 | (missing) | (missing) | | (unavailable | 07:10 | [facility] | | | | + + + + + + + + + | Result panel 184 | + + + + + +-------+---------+ + | | 2022-03-19 | [facility] | 131 | mg/dL | (missing) | | (unavailable | 07:10 | [facility] | | | | + + + +-------+---------+ + + + | Result panel 185 | + + + + + +-------+ + + | | 2022-03-19 | [facility] | 7.6 | (missing) | (missing) | | (unavailable | 07:10 | [facility] | | | | + + + +-------+ + + + + | Result panel 186 | + + + + + +------+ + + | | 2022-03-19 | [facility] | 73 | (missing) | (missing) | | (unavailable | 07:10 | [facility] | | | | + + + +------+ + + + + | Result panel 187 | + + + + + +-------+ + + | | 2022-03-19 | [facility] | 369 | (missing) | (missing) | | (unavailable | 07:10 | [facility] | | | | + + + +-------+ + + + + | Result panel 188 | + + + + + +-------+ + + | | 2022-03-19 | [facility] | 827 | (missing) | (missing) | | (unavailable | 07:10 | [facility] | | | | + + + +-------+ + + + + | Result panel 189 | + + + + + +--------+ + + | | 2022-03-19 | [facility] | <0.3 | (missing) | (missing) | | (unavailable | 07:10 | [facility] | | | | + + + +--------+ + + + + | Result panel 190 | + + + + + + + + + | Respiratory | 2022-03-19 | [facility] | NEGATIVE | (missing) | (missing) | | specimen | 07:11 | [facility] | | | | 2019 novel | | Hospital | | | | | coronavirus | | | | | | | RNA | | | | | | | detection | | | | | | + + + + + + + + + | Result panel 191 | + + + + + + + + + | Influenza | 2022-03-19 | [facility] | NEGATIVE | (missing) | (missing) | | virus A RNA | 07:11 | [facility] | | | | [Presence] | | Hospital | | | | | in | | | | | | | Respiratory | | | | | | | specimen by | | | | | | | [facility] | | | | | | | withprobe | | | | | | | detection | | | | | | + + + + + + + + + | Result panel 192 | + + + + + + + + + | Influenza | 2022-03-19 | [facility] | NEGATIVE | (missing) | (missing) | | virus B RNA | 07:11 | [facility] | [facility]Presence] | | Hospital | | | | | in | | | | | | | Respiratory | | | | | | | specimen by | | | | | | | [facility] | | | | | | | withprobe | | | | | | | detection | | | | | | + + + + + + + + + | Result panel 193 | + + + + + + + + + | Respiratory | 2022-03-19 | [facility] | NEGATIVE | (missing) | (missing) | | syncytial | 07:11 | [facility] | | | | | virus (RSV) | | Hospital | | | | | RNA | | | | | | | detection by | | | | | | | probe and | | | | | | | target | | | | | | | amplificatio | | | | | | | n method in | | | | | | | culture | | | | | | | isolate | | | | | | + + + + + + + + + | Result panel 194 | + + + + + + + + + | | 2022-03-19 | [facility] | NEGATIVE | (missing) | (missing) | | (unavailable | 07:11 | [facility] | | | | + + + + + + + + + | Result panel 195 | + + + + + + + + + | | 2022-03-19 | [facility] | NEGATIVE | (missing) | (missing) | | (unavailable | 07:11 | [facility] | | | | + + + + + + + + + | Result panel 196 | + + + + + + + + + | | 2022-03-19 | [facility] | NEGATIVE | (missing) | (missing) | | (unavailable | 07:11 | [facility] ) | | [facility] | | | | + + + + + + + + + | Result panel 197 | + + + + + + + + + | | 2022-03-19 | [facility] | NEGATIVE | (missing) | (missing) | | (unavailable | 07:11 | [facility] | | | | + + + + + + + + + | Result panel 198 | + + + + + + + + + | | 2022-03-19 | [facility] | NEGATIVE | (missing) | (missing) | | (unavailable | 07:11 | [facility] ) [facility] | [facility] | | | | + + + + + + + + + | Result panel 199 | + + + + + + + + + | | 2022-03-19 | [facility] | NEGATIVE | (missing) | (missing) | | (unavailable | 07:11 | [facility] ) [facility] | | | | + + + + + + + + + | Result panel 200 | + + + + + + + + + | | 2022-03-19 | [facility] | NEGATIVE | (missing) | (missing) | | (unavailable | 07:11 | [facility] ) | | [facility] | | | | + + + + + + + + + | Result panel 201 | + + + + + + + + + | | 2022-03-19 | [facility] | NEGATIVE | (missing) | (missing) | | (unavailable | 07:11 | [facility] ) | | [facility] | | | | + + + + + + + + + | Result panel 202 | + + + + + + + + + | Color of | 2022-03-19 | [facility] | YELLOW | (missing) | (missing) | | Urine by | 07:45 | [facility] | | | | | Auto | | Hospital | | | | + + + + + + + + + | Result panel 203 | + + + + + +---------+ + + | Character | 2022-03-19 | [facility] | CLEAR | (missing) | (missing) | | of Urine | 07:45 | [facility] | | [facility] | | | | + + + +---------+ + + + + | Result panel 204 | + + + + + +---------+ + + | Glucose | 2022-03-19 | [facility] | LARGE | (missing) | (missing) | | [Presence] | 07:45 | [facility] | | | | | in Urine by | | Hospital | | | | | Test strip | | | | | | + + + +---------+ + + + + | Result panel 205 | + + + + + + + + + | Urine total | 2022-03-19 | [facility] | NEGATIVE | (missing) | (missing) | | bilirubin | 07:45 | [facility] | | | | | detection by | | Hospital | | | | | test strip | | | | | | + + + + + + + + + | Result panel 206 | + + + + + + + + + | Urine | 2022-03-19 | [facility] | NEGATIVE | (missing) | (missing) | | ketones | 07:45 | [facility] | | | | | detection by | | Hospital | | | | | test strip | | | | | | + + + + + + + + + | Result panel 207 | + + + + + +---------+ + + | Specific | 2022-03-19 | [facility] | 1.015 | (missing) | (missing) | | gravity ur | 07:45 | [facility] | | | | dipstick | | Hospital | | | | + + + +---------+ + + + + | Result panel 208 | + + + + + + + + + | Urine | 2022-03-19 | [facility] | TRACE-I | (missing) | (missing) | | hemoglobin | 07:45 | [facility] | | | | | detection by | | Hospital | | | | | test strip | | | | | | + + + + + + + + + | Result panel 209 | + + + + + +-------+ + + | Urine pH | 2022-03-19 | [facility] | 7.0 | (missing) | (missing) | | measurement | 07:45 | [facility] | | | | | by test | | Hospital | | | | | strip | | | | | | + + + +-------+ + + + + | Result panel 210 | + + + + + +-------+ + + | Protein | 2022-03-19 | [facility] | 100 | (missing) | (missing) | | urine test | 07:45 | [facility] | | | | strip | | Hospital | | | | + + + +-------+ + + + + | Result panel 211 | + + + + + + + + + | | 2022-03-19 | [facility] | NORMAL | (missing) | (missing) | | Urobilinogen | 07:45 | [facility] | | | [facility] | | | | | [Mass/volume | | | | | | | ] in Urine | | | | | | | by Test | | | | | | | strip | | | | | | + + + + + + + + + | Result panel 212 | + + + + + + + + + | Urine | 2022-03-19 | [facility] | NEGATIVE | (missing) | (missing) | | nitrite | 07:45 | [facility] | | | | | detection by | | Hospital | | | | | test strip | | | | | | + + + + + + + + + | Result panel 213 | + + + + + + + + + | Urine | 2022-03-19 | [facility] | NEGATIVE | (missing) | (missing) | | leukocyte | 07:45 | [facility] | | | | | esterase | | Hospital | | | | | detection by | | | | | | | dipstick | | | | | | + + + + + + + + + | Result panel 214 | + + + + + +-------+ + + | Automated | 2022-03-19 | [facility] | 2-3 | (missing) | (missing) | | urine | 07:45 | [facility] | | | | | sediment | | Hospital | | | | | erythrocyte | | | | | | | count by | | | | | | | microscopy | | | | | | | (number/high | | | | | | | power | | | | | | | field) | | | | | | + + + +-------+ + + + + | Result panel 215 | + + + + + +-------+ + + | Automated | 2022-03-19 | [facility] | 0-1 | (missing) | (missing) | | urine | 07:45 | [facility] | | | | | sediment | | Hospital | | | | | leukocyte | | | | | | | count by | | | | | | | microscopy | | | | | | | (number/high | | | | | | | power | | | | | | | field) | | | | | | + + + +-------+ + + + + | Result panel 216 | + + + + + + + + + | Automated | 2022-03-19 | [facility] | SQUAMOUS 2+ | (missing) | (missing) | | urine | 07:45 | [facility] | | | | | sediment | | Hospital | | | | | epithelial | | | | | | | cell count | | | | | | | by | | | | | | | microscopy | | | | | | | (number/high | | | | | | | power | | | | | | | field) | | | | | | + + + + + + + + + | Result panel 217 | + + + + + + + + + | [place] | 2022-03-19 | [facility] | NONE SEEN | (missing) | (missing) | | typing in | 07:45 | [facility] | | | | | urine | | Hospital | | | | | sediment by | | | | | | | light | | | | | | | microscopy | | | | | | + + + + + + + + + | Result panel 218 | + + + + + + + + + | Automated | 2022-03-19 | [facility] | NONE SEEN | (missing) | (missing) | | urine | 07:45 | [facility] | | | | | sediment | | Hospital | | | | | bacteria | | | | | | | count by | | | | | | | microscopy | | | | | | | (number/high | | | | | | | power | | | | | | | field) | | | | | | + + + + + + + + + | Result panel 219 | + + + + + + + + + | Automated | 2022-03-19 | [facility] | NONE SEEN | (missing) | (missing) | | casts count | 07:45 | [facility] | | | | | in urine | | Hospital | | | | | sediment by | | | | | | | microscopy | | | | | | | low power | | | | | | | field | | | | | | | (number/area | | | | | | | ) | | | | | | + + + + + + + + + | Result panel 220 | + + + + + +------+ + + | Reflexive | 2022-03-19 | [facility] | No | (missing) | (missing) | | urine | 07:45 | [facility] | | | | | bacterial | | Hospital | | | | | culture | | | | | | + + + +------+ + + + + | Result panel 221 | + + + + + + + + + | Urinalysis | 2022-03-19 | [facility] | CLEAN CATCH | (missing) | (missing) | | specimen | 07:45 | [facility] collection [facility] | | | | | method | | | | | | + + + + + + + + + | Result panel 222 | + + + + + + + + + | Urine | 2022-03-19 | [facility] | NEGATIVE | (missing) | (missing) | | [id number] | 07:45 | [facility] | | | | ahydrocannab | | Hospital | | | | | inol (THC) | | | | | | | detection | | | | | | + + + + + + + + + | Result panel 223 | + + + + + + + + + | Urine | 2022-03-19 | [facility] | NEGATIVE | (missing) | (missing) | | amphetamines | 07:45 | [facility] detection | | Hospital | | | | | by screening | | | | | | | method | | | | | | + + + + + + + + + | Result panel 224 | + + + + + + + + + | Urine | 2022-03-19 | [facility] | NEGATIVE | (missing) | (missing) | | barbiturates | 07:45 | [facility] detection | | Hospital | | | | | by screening | | | | | | | method | | | | | | + + + + + + + + + | Result panel 225 | + + + + + + + + + | Urine | 2022-03-19 | [facility] | NEGATIVE | (missing) | (missing) | | benzodiazepi | 07:45 | [facility] | | | adry | | Hospital | | | | | detection by | | | | | | | screening | | | | | | | method | | | | | | + + + + + + + + + | Result panel 226 | + + + + + + + + + | Urine | 2022-03-19 | [facility] | NEGATIVE | (missing) | (missing) | | cocaine | 07:45 | [facility] detection | | [facility] | | | | + + + + + + + + + | Result panel 227 | + + + + + + + + + | Screening | 2022-03-19 | [facility] | NEGATIVE | (missing) | (missing) | | urine | 07:45 | [facility] | | | | | tricyclic | | Hospital | | | | | antidepressa | | | | | | | nts | | | | | | | detection | | | | | | + + + + + + + + + | Result panel 228 | + + + + + + + + + | Urine | 2022-03-19 | [facility] | NEGATIVE | (missing) | (missing) | | phencyclidin | 07:45 | [facility] | | | e detection | | Hospital | | | | | by screening | | | | | | | method | | | | | | + + + + + + + + + | Result panel 229 | + + + + + + + + + | Urine | 2022-03-19 | [facility] | NEGATIVE | (missing) | (missing) | | opiates | 07:45 | [facility] | | | | detection by | | Hospital | | | | | screening | | | | | | | method | | | | | | + + + + + + + + + | Result panel 230 | + + + + + + + + + | Urine | 2022-03-19 | [facility] | NEGATIVE | (missing) | (missing) | | methadone | 07:45 | [facility] | | | | detection by | | Hospital | | | | | screening | | | | | | | method | | | | | | + + + + + + + + + | Result panel 231 | + + + + + + + + + | Urine | 2022-03-19 | [facility] | NEGATIVE | (missing) | (missing) | | methamphetam | 07:45 | [facility] | | | ine | | Hospital | | | | | detection by | | | | | | | screening | | | | | | | method | | | | | | + + + + + + + + + | Result panel 232 | + + + + + + + + + | Urine | 2022-03-19 | [facility] | POSITIVE | (missing) | (missing) | | methylenedio | 07:45 | [facility] | | | | | xymethamphet | | Hospital | | | | | amine | | | | | | | detection by | | | | | | | screening | | | | | | | method | | | | | | + + + + + + + + + | Result panel 233 | + + + + + + + + + | Urine | 2022-03-19 | [facility] | NEGATIVE | (missing) | (missing) | | methylenedio | 07:45 | [facility] | | | | | xymethamphet | | Hospital | | | | | amine | | | | | | | detection by | | | | | | | screening | | | | | | | method | | | | | | + + + + + + + + + | Result panel 234 | + + + + + + + + + | Urine | 2022-03-19 | [facility] | NEGATIVE | (missing) | (missing) | | buprenorphin | 07:45 | [facility] | | | | e detection | | Hospital | | | | + + + + + + + + + | Result panel 235 | + + + + + + + + + | | 2022-03-19 | [facility] | YELLOW | (missing) | (missing) | | (unavailable | 07:45 | [facility] | | [facility] | | | | + + + + + + + + + | Result panel 236 | + + + + + +---------+ + + | | 2022-03-19 | [facility] | CLEAR | (missing) | (missing) | | (unavailable | 07:45 | [facility] | | | | + + + +---------+ + + + + | Result panel 237 | + + + + + +---------+ + + | | 2022-03-19 | [facility] | LARGE | (missing) | (missing) | | (unavailable | 07:45 | [facility] ) | | [facility] | | | | + + + +---------+ + + + + | Result panel 238 | + + + + + + + + + | | 2022-03-19 | [facility] | NEGATIVE | (missing) | (missing) | | (unavailable | 07:45 | [facility] ) [facility] | [facility] | | | | + + + + + + + + + | Result panel 239 | + + + + + + + + + | | 2022-03-19 | [facility] | NEGATIVE | (missing) | (missing) | | (unavailable | 07:45 | [facility] | [facility] | | | | + + + + + + + + + | Result panel 240 | + + + + + +---------+ + + | | 2022-03-19 | [facility] | 1.015 | (missing) | (missing) | | (unavailable | 07:45 | [facility] ) [facility] | [facility] | | | | + + + +---------+ + + + + | Result panel 241 | + + + + + + + + + | | 2022-03-19 | [facility] | TRACE-I | (missing) | (missing) | | (unavailable | 07:45 | [facility] | | | | + + + + + + + + + | Result panel 242 | + + + + + +-------+ + + | | 2022-03-19 | [facility] | 7.0 | (missing) | (missing) | | (unavailable | 07:45 | [facility] | | | | + + + +-------+ + + + + | Result panel 243 | + + + + + +-------+ + + | | 2022-03-19 | [facility] | 100 | (missing) | (missing) | | (unavailable | 07:45 | [facility] | | | | + + + +-------+ + + + + | Result panel 244 | + + + + + + + + + | | 2022-03-19 | [facility] | NORMAL | (missing) | (missing) | | (unavailable | 07:45 | [facility] | | | | + + + + + + + + + | Result panel 245 | + + + + + + + + + | | 2022-03-19 | [facility] | NEGATIVE | (missing) | (missing) | | (unavailable | 07:45 | [facility] | | | | + + + + + + + + + | Result panel 246 | + + + + + + + + + | | 2022-03-19 | [facility] | NEGATIVE | (missing) | (missing) | | (unavailable | 07:45 | [facility] | | | | + + + + + + + + + | Result panel 247 | + + + + + +-------+ + + | | 2022-03-19 | [facility] | 2-3 | (missing) | (missing) | | (unavailable | 07:45 | [facility] | | | | + + + +-------+ + + + + | Result panel 248 | + + + + + +-------+ + + | | 2022-03-19 | [facility] | 0-1 | (missing) | (missing) | | (unavailable | 07:45 | [facility] | | | | + + + +-------+ + + + + | Result panel 249 | + + + + + + + + + | | 2022-03-19 | [facility] | SQUAMOUS 2+ | (missing) | (missing) | | (unavailable | 07:45 | [facility] | | | | + + + + + + + + + | Result panel 250 | + + + + + + + + + | | 2022-03-19 | [facility] | NONE SEEN | (missing) | (missing) | | (unavailable | 07:45 | [facility] | | | | + + + + + + + + + | Result panel 251 | + + + + + + + + + | | 2022-03-19 | [facility] | NONE SEEN | (missing) | (missing) | | (unavailable | 07:45 | [facility] | | | | + + + + + + + + + | Result panel 252 | + + + + + + + + + | | 2022-03-19 | [facility] | NONE SEEN | (missing) | (missing) | | (unavailable | 07:45 | [facility] | | | | + + + + + + + + + | Result panel 253 | + + + + + +------+ + + | | 2022-03-19 | [facility] | No | (missing) | (missing) | | (unavailable | 07:45 | [facility] | | | | + + + +------+ + + + + | Result panel 254 | + + + + + + + + + | | 2022-03-19 | [facility] | CLEAN CATCH | (missing) | (missing) | | (unavailable | 07:45 | [facility] | | | | + + + + + + + + + | Result panel 255 | + + + + + + + + + | | 2022-03-19 | [facility] | NEGATIVE | (missing) | (missing) | | (unavailable | 07:45 | [facility] | | | | + + + + + + + + + | Result panel 256 | + + + + + + + + + | | 2022-03-19 | [facility] | NEGATIVE | (missing) | (missing) | | (unavailable | 07:45 | [facility] | | | | + + + + + + + + + | Result panel 257 | + + + + + + + + + | | 2022-03-19 | [facility] | NEGATIVE | (missing) | (missing) | | (unavailable | 07:45 | [facility] | | | | + + + + + + + + + | Result panel 258 | + + + + + + + + + | | 2022-03-19 | [facility] | NEGATIVE | (missing) | (missing) | | (unavailable | 07:45 | [facility] | | | | + + + + + + + + + | Result panel 259 | + + + + + + + + + | | 2022-03-19 | [facility] | NEGATIVE | (missing) | (missing) | | (unavailable | 07:45 | [facility] | | | | + + + + + + + + + | Result panel 260 | + + + + + + + + + | | 2022-03-19 | [facility] | NEGATIVE | (missing) | (missing) | | (unavailable | 07:45 | [facility] | | | | + + + + + + + + + | Result panel 261 | + + + + + + + + + | | 2022-03-19 | [facility] | NEGATIVE | (missing) | (missing) | | (unavailable | 07:45 | [facility] | | | | + + + + + + + + + | Result panel 262 | + + + + + + + + + | | 2022-03-19 | [facility] | NEGATIVE | (missing) | (missing) | | (unavailable | 07:45 | [facility] | | | | + + + + + + + + + | Result panel 263 | + + + + + + + + + | | 2022-03-19 | [facility] | NEGATIVE | (missing) | (missing) | | (unavailable | 07:45 | [facility] | | | | + + + + + + + + + | Result panel 264 | + + + + + + + + + | | 2022-03-19 | [facility] | NEGATIVE | (missing) | (missing) | | (unavailable | 07:45 | [facility] | | | | + + + + + + + + + | Result panel 265 | + + + + + + + + + | | 2022-03-19 | [facility] | POSITIVE | (missing) | (missing) | | (unavailable | 07:45 | [facility] | | | | + + + + + + + + + | Result panel 266 | + + + + + + + + + | | 2022-03-19 | [facility] | NEGATIVE | (missing) | (missing) | | (unavailable | 07:45 | [facility] | | | | + + + + + + + + + | Result panel 267 | + + + + + + + + + | | 2022-03-19 | [facility] | NEGATIVE | (missing) | (missing) | | (unavailable | 07:45 | [facility] | | | | + + + + + + + + + | Result panel 268 | + + + + + + + + + | | 2022-03-19 | [facility] | YELLOW | (missing) | (missing) | | (unavailable | 07:45 | [facility] | | | | + + + + + + + + + | Result panel 269 | + + + + + +---------+ + + | | 2022-03-19 | [facility] | CLEAR | (missing) | (missing) | | (unavailable | 07:45 | [facility] | | | | + + + +---------+ + + + + | Result panel 270 | + + + + + +---------+ + + | | 2022-03-19 | [facility] | LARGE | (missing) | (missing) | | (unavailable | 07:45 | [facility] | | | | + + + +---------+ + + + + | Result panel 271 | + + + + + + + + + | | 2022-03-19 | [facility] | NEGATIVE | (missing) | (missing) | | (unavailable | 07:45 | [facility] | | | | + + + + + + + + + | Result panel 272 | + + + + + + + + + | | 2022-03-19 | [facility] | NEGATIVE | (missing) | (missing) | | (unavailable | 07:45 | [facility] | | | | + + + + + + + + + | Result panel 273 | + + + + + +---------+ + + | | 2022-03-19 | [facility] | 1.015 | (missing) | (missing) | | (unavailable | 07:45 | [facility] | | | | + + + +---------+ + + + + | Result panel 274 | + + + + + + + + + | | 2022-03-19 | [facility] | TRACE-I | (missing) | (missing) | | (unavailable | 07:45 | [facility] | | | | + + + + + + + + + | Result panel 275 | + + + + + +-------+ + + | | 2022-03-19 | [facility] | 7.0 | (missing) | (missing) | | (unavailable | 07:45 | [facility] | | | | + + + +-------+ + + + + | Result panel 276 | + + + + + +-------+ + + | | 2022-03-19 | [facility] | 100 | (missing) | (missing) | | (unavailable | 07:45 | [facility] | | | | + + + +-------+ + + + + | Result panel 277 | + + + + + + + + + | | 2022-03-19 | [facility] | NORMAL | (missing) | (missing) | | (unavailable | 07:45 | [facility] | | | | + + + + + + + + + | Result panel 278 | + + + + + + + + + | | 2022-03-19 | [facility] | NEGATIVE | (missing) | (missing) | | (unavailable | 07:45 | [facility] | | | | + + + + + + + + + | Result panel 279 | + + + + + + + + + | | 2022-03-19 | [facility] | NEGATIVE | (missing) | (missing) | | (unavailable | 07:45 | [facility] | | | | + + + + + + + + + | Result panel 280 | + + + + + +-------+ + + | | 2022-03-19 | [facility] | 2-3 | (missing) | (missing) | | (unavailable | 07:45 | [facility] | | | | + + + +-------+ + + + + | Result panel 281 | + + + + + +-------+ + + | | 2022-03-19 | [facility] | 0-1 | (missing) | (missing) | | (unavailable | 07:45 | [facility] | | | | + + + +-------+ + + + + | Result panel 282 | + + + + + + + + + | | 2022-03-19 | [facility] | SQUAMOUS 2+ | (missing) | (missing) | | (unavailable | 07:45 | [facility] | | | | + + + + + + + + + | Result panel 283 | + + + + + + + + + | | 2022-03-19 | [facility] | NONE SEEN | (missing) | (missing) | | (unavailable | 07:45 | [facility] | | | | + + + + + + + + + | Result panel 284 | + + + + + + + + + | | 2022-03-19 | [facility] | NONE SEEN | (missing) | (missing) | | (unavailable | 07:45 | [facility] | | | | + + + + + + + + + | Result panel 285 | + + + + + + + + + | | 2022-03-19 | [facility] | NONE SEEN | (missing) | (missing) | | (unavailable | 07:45 | [facility] | | | | + + + + + + + + + | Result panel 286 | + + + + + +------+ + + | | 2022-03-19 | [facility] | No | (missing) | (missing) | | (unavailable | 07:45 | [facility] | | | | + + + +------+ + + + + | Result panel 287 | + + + + + + + + + | | 2022-03-19 | [facility] | CLEAN CATCH | (missing) | (missing) | | (unavailable | 07:45 | [facility] | | | | + + + + + + + + + | Result panel 288 | + + + + + + + + + | | 2022-03-19 | [facility] | NEGATIVE | (missing) | (missing) | | (unavailable | 07:45 | [facility] | | | | + + + + + + + + + | Result panel 289 | + + + + + + + + + | | 2022-03-19 | [facility] | NEGATIVE | (missing) | (missing) | | (unavailable | 07:45 | [facility] | | | | + + + + + + + + + | Result panel 290 | + + + + + + + + + | | 2022-03-19 | [facility] | NEGATIVE | (missing) | (missing) | | (unavailable | 07:45 | [facility] | | | | + + + + + + + + + | Result panel 291 | + + + + + + + + + | | 2022-03-19 | [facility] | NEGATIVE | (missing) | (missing) | | (unavailable | 07:45 | [facility] | | | | + + + + + + + + + | Result panel 292 | + + + + + + + + + | | 2022-03-19 | [facility] | NEGATIVE | (missing) | (missing) | | (unavailable | 07:45 | [facility] | | | | + + + + + + + + + | Result panel 293 | + + + + + + + + + | | 2022-03-19 | [facility] | NEGATIVE | (missing) | (missing) | | (unavailable | 07:45 | [facility] | | | | + + + + + + + + + | Result panel 294 | + + + + + + + + + | | 2022-03-19 | [facility] | NEGATIVE | (missing) | (missing) | | (unavailable | 07:45 | [facility] | | | | + + + + + + + + + | Result panel 295 | + + + + + + + + + | | 2022-03-19 | [facility] | NEGATIVE | (missing) | (missing) | | (unavailable | 07:45 | [facility] | | | | + + + + + + + + + | Result panel 296 | + + + + + + + + + | | 2022-03-19 | [facility] | NEGATIVE | (missing) | (missing) | | (unavailable | 07:45 | [facility] | | | | + + + + + + + + + | Result panel 297 | + + + + + + + + + | | 2022-03-19 | [facility] | NEGATIVE | (missing) | (missing) | | (unavailable | 07:45 | [facility] | | | | + + + + + + + + + | Result panel 298 | + + + + + + + + + | | 2022-03-19 | [facility] | POSITIVE | (missing) | (missing) | | (unavailable | 07:45 | [facility] | | | | + + + + + + + + + | Result panel 299 | + + + + + + + + + | | 2022-03-19 | [facility] | NEGATIVE | (missing) | (missing) | | (unavailable | 07:45 | [facility] | | | | + + + + + + + + + | Result panel 300 | + + + + + + + + + | | 2022-03-19 | [facility] | NEGATIVE | (missing) | (missing) | | (unavailable | 07:45 | [facility] | | | | + + + + + + + + + | Result panel 301 | + + + + + + + + + | | 2022-03-19 | [facility] | YELLOW | (missing) | (missing) | | (unavailable | 07:45 | [facility] | | | | + + + + + + + + + | Result panel 302 | + + + + + +---------+ + + | | 2022-03-19 | [facility] | CLEAR | (missing) | (missing) | | (unavailable | 07:45 | [facility] | | | | + + + +---------+ + + + + | Result panel 303 | + + + + + +---------+ + + | | 2022-03-19 | [facility] | LARGE | (missing) | (missing) | | (unavailable | 07:45 | [facility] | | | | + + + +---------+ + + + + | Result panel 304 | + + + + + + + + + | | 2022-03-19 | [facility] | NEGATIVE | (missing) | (missing) | | (unavailable | 07:45 | [facility] | | | | + + + + + + + + + | Result panel 305 | + + + + + + + + + | | 2022-03-19 | [facility] | NEGATIVE | (missing) | (missing) | | (unavailable | 07:45 | [facility] | | | | + + + + + + + + + | Result panel 306 | + + + + + +---------+ + + | | 2022-03-19 | [facility] | 1.015 | (missing) | (missing) | | (unavailable | 07:45 | [facility] | | | | + + + +---------+ + + + + | Result panel 307 | + + + + + + + + + | | 2022-03-19 | [facility] | TRACE-I | (missing) | (missing) | | (unavailable | 07:45 | [facility] | | | | + + + + + + + + + | Result panel 308 | + + + + + +-------+ + + | | 2022-03-19 | [facility] | 7.0 | (missing) | (missing) | | (unavailable | 07:45 | [facility] | | | | + + + +-------+ + + + + | Result panel 309 | + + + + + +-------+ + + | | 2022-03-19 | [facility] | 100 | (missing) | (missing) | | (unavailable | 07:45 | [facility] | | | | + + + +-------+ + + + + | Result panel 310 | + + + + + + + + + | | 2022-03-19 | [facility] | NORMAL | (missing) | (missing) | | (unavailable | 07:45 | [facility] | | | | + + + + + + + + + | Result panel 311 | + + + + + + + + + | | 2022-03-19 | [facility] | NEGATIVE | (missing) | (missing) | | (unavailable | 07:45 | [facility] | | | | + + + + + + + + + | Result panel 312 | + + + + + + + + + | | 2022-03-19 | [facility] | NEGATIVE | (missing) | (missing) | | (unavailable | 07:45 | [facility] | | | | + + + + + + + + + | Result panel 313 | + + + + + +-------+ + + | | 2022-03-19 | [facility] | 2-3 | (missing) | (missing) | | (unavailable | 07:45 | [facility] | | | | + + + +-------+ + + + + | Result panel 314 | + + + + + +-------+ + + | | 2022-03-19 | [facility] | 0-1 | (missing) | (missing) | | (unavailable | 07:45 | [facility] | | | | + + + +-------+ + + + + | Result panel 315 | + + + + + + + + + | | 2022-03-19 | [facility] | SQUAMOUS 2+ | (missing) | (missing) | | (unavailable | 07:45 | [facility] | | | | + + + + + + + + + | Result panel 316 | + + + + + + + + + | | 2022-03-19 | [facility] | NONE SEEN | (missing) | (missing) | | (unavailable | 07:45 | [facility] | | | | + + + + + + + + + | Result panel 317 | + + + + + + + + + | | 2022-03-19 | [facility] | NONE SEEN | (missing) | (missing) | | (unavailable | 07:45 | [facility] | | | | + + + + + + + + + | Result panel 318 | + + + + + + + + + | | 2022-03-19 | [facility] | NONE SEEN | (missing) | (missing) | | (unavailable | 07:45 | [facility] | | | | + + + + + + + + + | Result panel 319 | + + + + + +------+ + + | | 2022-03-19 | [facility] | No | (missing) | (missing) | | (unavailable | 07:45 | [facility] | | | | + + + +------+ + + + + | Result panel 320 | + + + + + + + + + | | 2022-03-19 | [facility] | CLEAN CATCH | (missing) | (missing) | | (unavailable | 07:45 | [facility] | | | | + + + + + + + + + | Result panel 321 | + + + + + + + + + | | 2022-03-19 | [facility] | NEGATIVE | (missing) | (missing) | | (unavailable | 07:45 | [facility] | | | | + + + + + + + + + | Result panel 322 | + + + + + + + + + | | 2022-03-19 | [facility] | NEGATIVE | (missing) | (missing) | | (unavailable | 07:45 | [facility] | | | | + + + + + + + + + | Result panel 323 | + + + + + + + + + | | 2022-03-19 | [facility] | NEGATIVE | (missing) | (missing) | | (unavailable | 07:45 | [facility] | | | | + + + + + + + + + | Result panel 324 | + + + + + + + + + | | 2022-03-19 | [facility] | NEGATIVE | (missing) | (missing) | | (unavailable | 07:45 | [facility] | | | | + + + + + + + + + | Result panel 325 | + + + + + + + + + | | 2022-03-19 | [facility] | NEGATIVE | (missing) | (missing) | | (unavailable | 07:45 | [facility] | | | | + + + + + + + + + | Result panel 326 | + + + + + + + + + | | 2022-03-19 | [facility] | NEGATIVE | (missing) | (missing) | | (unavailable | 07:45 | [facility] | | | | + + + + + + + + + | Result panel 327 | + + + + + + + + + | | 2022-03-19 | [facility] | NEGATIVE | (missing) | (missing) | | (unavailable | 07:45 | [facility] | | | | + + + + + + + + + | Result panel 328 | + + + + + + + + + | | 2022-03-19 | [facility] | NEGATIVE | (missing) | (missing) | | (unavailable | 07:45 | [facility] | | | | + + + + + + + + + | Result panel 329 | + + + + + + + + + | | 2022-03-19 | [facility] | NEGATIVE | (missing) | (missing) | | (unavailable | 07:45 | [facility] | | | | + + + + + + + + + | Result panel 330 | + + + + + + + + + | | 2022-03-19 | [facility] | NEGATIVE | (missing) | (missing) | | (unavailable | 07:45 | [facility] | | | | + + + + + + + + + | Result panel 331 | + + + + + + + + + | | 2022-03-19 | [facility] | POSITIVE | (missing) | (missing) | | (unavailable | 07:45 | [facility] | | | | + + + + + + + + + | Result panel 332 | + + + + + + + + + | | 2022-03-19 | [facility] | NEGATIVE | (missing) | (missing) | | (unavailable | 07:45 | [facility] | | | | + + + + + + + + + | Result panel 333 | + + + + + + + + + | | 2022-03-19 | [facility] | NEGATIVE | (missing) | (missing) | | (unavailable | 07:45 | [facility] | | | | + + + + + + + + + | Result panel 334 | + + + + + + + + + | | 2022-03-19 | [facility] | YELLOW | (missing) | (missing) | | (unavailable | 07:45 | [facility] | | | | + + + + + + + + + | Result panel 335 | + + + + + +---------+ + + | | 2022-03-19 | [facility] | CLEAR | (missing) | (missing) | | (unavailable | 07:45 | [facility] | | | | + + + +---------+ + + + + | Result panel 336 | + + + + + +---------+ + + | | 2022-03-19 | [facility] | LARGE | (missing) | (missing) | | (unavailable | 07:45 | [facility] | | | | + + + +---------+ + + + + | Result panel 337 | + + + + + + + + + | | 2022-03-19 | [facility] | NEGATIVE | (missing) | (missing) | | (unavailable | 07:45 | [facility] | | | | + + + + + + + + + | Result panel 338 | + + + + + + + + + | | 2022-03-19 | [facility] | NEGATIVE | (missing) | (missing) | | (unavailable | 07:45 | [facility] | | | | + + + + + + + + + | Result panel 339 | + + + + + +---------+ + + | | 2022-03-19 | [facility] | 1.015 | (missing) | (missing) | | (unavailable | 07:45 | [facility] | | | | + + + +---------+ + + + + | Result panel 340 | + + + + + + + + + | | 2022-03-19 | [facility] | TRACE-I | (missing) | (missing) | | (unavailable | 07:45 | [facility] | | | | + + + + + + + + + | Result panel 341 | + + + + + +-------+ + + | | 2022-03-19 | [facility] | 7.0 | (missing) | (missing) | | (unavailable | 07:45 | [facility] | | | | + + + +-------+ + + + + | Result panel 342 | + + + + + +-------+ + + | | 2022-03-19 | [facility] | 100 | (missing) | (missing) | | (unavailable | 07:45 | [facility] | | | | + + + +-------+ + + + + | Result panel 343 | + + + + + + + + + | | 2022-03-19 | [facility] | NORMAL | (missing) | (missing) | | (unavailable | 07:45 | [facility] | | | | + + + + + + + + + | Result panel 344 | + + + + + + + + + | | 2022-03-19 | [facility] | NEGATIVE | (missing) | (missing) | | (unavailable | 07:45 | [facility] | | | | + + + + + + + + + | Result panel 345 | + + + + + + + + + | | 2022-03-19 | [facility] | NEGATIVE | (missing) | (missing) | | (unavailable | 07:45 | [facility] | | | | + + + + + + + + + | Result panel 346 | + + + + + +-------+ + + | | 2022-03-19 | [facility] | 2-3 | (missing) | (missing) | | (unavailable | 07:45 | [facility] | | | | + + + +-------+ + + + + | Result panel 347 | + + + + + +-------+ + + | | 2022-03-19 | [facility] | 0-1 | (missing) | (missing) | | (unavailable | 07:45 | [facility] | | | | + + + +-------+ + + + + | Result panel 348 | + + + + + + + + + | | 2022-03-19 | [facility] | SQUAMOUS 2+ | (missing) | (missing) | | (unavailable | 07:45 | [facility] | | | | + + + + + + + + + | Result panel 349 | + + + + + + + + + | | 2022-03-19 | [facility] | NONE SEEN | (missing) | (missing) | | (unavailable | 07:45 | [facility] | | | | + + + + + + + + + | Result panel 350 | + + + + + + + + + | | 2022-03-19 | [facility] | NONE SEEN | (missing) | (missing) | | (unavailable | 07:45 | [facility] | | | | + + + + + + + + + | Result panel 351 | + + + + + + + + + | | 2022-03-19 | [facility] | NONE SEEN | (missing) | (missing) | | (unavailable | 07:45 | [facility] | | | | + + + + + + + + + | Result panel 352 | + + + + + +------+ + + | | 2022-03-19 | [facility] | No | (missing) | (missing) | | (unavailable | 07:45 | [facility] | | | | + + + +------+ + + + + | Result panel 353 | + + + + + + + + + | | 2022-03-19 | [facility] | CLEAN CATCH | (missing) | (missing) | | (unavailable | 07:45 | [facility] | | | | + + + + + + + + + | Result panel 354 | + + + + + + + + + | | 2022-03-19 | [facility] | NEGATIVE | (missing) | (missing) | | (unavailable | 07:45 | [facility] | | | | + + + + + + + + + | Result panel 355 | + + + + + + + + + | | 2022-03-19 | [facility] | NEGATIVE | (missing) | (missing) | | (unavailable | 07:45 | [facility] | | | | + + + + + + + + + | Result panel 356 | + + + + + + + + + | | 2022-03-19 | [facility] | NEGATIVE | (missing) | (missing) | | (unavailable | 07:45 | [facility] | | | | + + + + + + + + + | Result panel 357 | + + + + + + + + + | | 2022-03-19 | [facility] | NEGATIVE | (missing) | (missing) | | (unavailable | 07:45 | [facility] | | | | + + + + + + + + + | Result panel 358 | + + + + + + + + + | | 2022-03-19 | [facility] | NEGATIVE | (missing) | (missing) | | (unavailable | 07:45 | [facility] | | | | + + + + + + + + + | Result panel 359 | + + + + + + + + + | | 2022-03-19 | [facility] | NEGATIVE | (missing) | (missing) | | (unavailable | 07:45 | [facility] | | | | + + + + + + + + + | Result panel 360 | + + + + + + + + + | | 2022-03-19 | [facility] | NEGATIVE | (missing) | (missing) | | (unavailable | 07:45 | [facility] | | | | + + + + + + + + + | Result panel 361 | + + + + + + + + + | | 2022-03-19 | [facility] | NEGATIVE | (missing) | (missing) | | (unavailable | 07:45 | [facility] | | | | + + + + + + + + + | Result panel 362 | + + + + + + + + + | | 2022-03-19 | [facility] | NEGATIVE | (missing) | (missing) | | (unavailable | 07:45 | [facility] | | | | + + + + + + + + + | Result panel 363 | + + + + + + + + + | | 2022-03-19 | [facility] | NEGATIVE | (missing) | (missing) | | (unavailable | 07:45 | [facility] | | | | + + + + + + + + + | Result panel 364 | + + + + + + + + + | | 2022-03-19 | [facility] | POSITIVE | (missing) | (missing) | | (unavailable | 07:45 | [facility] | | | | + + + + + + + + + | Result panel 365 | + + + + + + + + + | | 2022-03-19 | [facility] | NEGATIVE | (missing) | (missing) | | (unavailable | 07:45 | [facility] | | | | + + + + + + + + + | Result panel 366 | + + + + + + + + + | | 2022-03-19 | [facility] | NEGATIVE | (missing) | (missing) | | (unavailable | 07:45 | [facility] | | | | + + + + + + + + + | Result panel 367 | + + + + + +-------+ + + | Serum or | 2022-03-20 | [facility] | 1.5 | (missing) | (missing) | | plasma | 05:11 | [facility] | | | | magnesium | | [facility] | | | | | measurement | | | | | | | (mass/volume | | | | | | | ) | | | | | | + + + +-------+ + + + + | Result panel 368 | + + + + + +-------+ + + | Serum or | 2022-03-20 | [facility] | 6.1 | (missing) | (missing) | | plasma | 05:11 | [facility] | | | protein | | [facility] | | | | | measurement | | | | | | | (mass/volume | | | | | | | ) | | | | | | + + + +-------+ + + + + | Result panel 369 | + + + + + +-------+ + + | Serum or | 2022-03-20 | [facility] | 2.5 | (missing) | (missing) | | plasma | 05:11 | [facility] | | | albumin | | [facility] | | | | | measurement | | | | | | | (mass/volume | | | | | | | ) | | | | | | + + + +-------+ + + + + | Result panel 370 | + + + + + +-------+ + + | Serum | 2022-03-20 | [facility] | 3.6 | (missing) | (missing) | | globulin | 05:11 | [facility] | measurement | | [facility] | | | | | (mass/volume | | | | | | | ) | | | | | | + + + +-------+ + + + + | Result panel 371 | + + + + + +--------+ + + | Serum or | 2022-03-20 | [facility] | 0.69 | (missing) | (missing) | | plasma | 05:11 | [facility] | | | | albumin/glob | | [facility] | | | | | ulin mass | | | | | | | ratio | | | | | | + + + +--------+ + + + + | Result panel 372 | + + + + + +-------+ + + | Serum or | 2022-03-20 | [facility] | 0.3 | (missing) | (missing) | | plasma total | 05:11 | [facility] | | | | bilirubin | | [facility] | | | | | measurement | | | | | | | (mass/volume | | | | | | | ) | | | | | | + + + +-------+ + + + + | Result panel 373 | + + + + + +------+ + + | Serum or | 2022-03-20 | [facility] | 36 | (missing) | (missing) | | plasma | 05:11 | [facility] | | | | aspartate | | Hospital | | | | | aminotransfe | | | | | | | rase | | | | | | | measurement | | | | | | | (enzymatic | | | | | | | activity/vol | | | | | | | ume) | | | | | | + + + +------+ + + + + | Result panel 374 | + + + + + +------+ + + | Serum or | 2022-03-20 | [facility] | 33 | (missing) | (missing) | | plasma | 05:11 | [facility] | | | | alanine | | [facility] | | | | | aminotransfe | | | | | | | rase | | | | | | | measurement | | | | | | | (enzymatic | | | | | | | activity/vol | | | | | | | ume) | | | | | | + + + +------+ + + + + | Result panel 375 | + + + + + +-------+ + + | Serum or | 2022-03-20 | [facility] | 132 | (missing) | (missing) | | plasma | 05:11 | [facility] | | | | alkaline | | [facility] | | | | | phosphatase | | | | | | | measurement | | | | | | | (enzymatic | | | | | | | activity/vol | | | | | | | ume) | | | | | | + + + +-------+ + + + + | Result panel 376 | + + + + + +-------+---------+ + | | 2022-03-20 | [facility] | 1.5 | mg/dL | (missing) | | (unavailable | 05:11 | [facility] | | | | + + + +-------+---------+ + + + | Result panel 377 | + + + + + +-------+ + + | | 2022-03-20 | [facility] | 6.1 | (missing) | (missing) | | (unavailable | 05:11 | [facility] | | | | + + + +-------+ + + + + | Result panel 378 | + + + + + +-------+ + + | | 2022-03-20 | [facility] | 2.5 | (missing) | (missing) | | (unavailable | 05:11 | [facility] | | | | + + + +-------+ + + + + | Result panel 379 | + + + + + +-------+ + + | | 2022-03-20 | [facility] | 3.6 | (missing) | (missing) | | (unavailable | 05:11 | [facility] | | | | + + + +-------+ + + + + | Result panel 380 | + + + + + +--------+ + + | | 2022-03-20 | [facility] | 0.69 | (missing) | (missing) | | (unavailable | 05:11 | [facility] | | | | + + + +--------+ + + + + | Result panel 381 | + + + + + +-------+ + + | | 2022-03-20 | [facility] | 0.3 | (missing) | (missing) | | (unavailable | 05:11 | [facility] | | | | + + + +-------+ + + + + | Result panel 382 | + + + + + +------+ + + | | 2022-03-20 | [facility] | 36 | (missing) | (missing) | | (unavailable | 05:11 | [facility] | | | | + + + +------+ + + + + | Result panel 383 | + + + + + +------+ + + | | 2022-03-20 | [facility] | 33 | (missing) | (missing) | | (unavailable | 05:11 | [facility] | | | | + + + +------+ + + + + | Result panel 384 | + + + + + +-------+ + + | | 2022-03-20 | [facility] | 132 | (missing) | (missing) | | (unavailable | 05:11 | [facility] | | | | + + + +-------+ + + + + | Result panel 385 | + + + + + +-------+---------+ + | | 2022-03-20 | [facility] | 1.5 | mg/dL | (missing) | | (unavailable | 05:11 | [facility] | | | | + + + +-------+---------+ + + + | Result panel 386 | + + + + + +-------+ + + | | 2022-03-20 | [facility] | 6.1 | (missing) | (missing) | | (unavailable | 05:11 | [facility] | | | | + + + +-------+ + + + + | Result panel 387 | + + + + + +-------+ + + | | 2022-03-20 | [facility] | 2.5 | (missing) | (missing) | | (unavailable | 05:11 | [facility] | | | | + + + +-------+ + + + + | Result panel 388 | + + + + + +-------+ + + | | 2022-03-20 | [facility] | 3.6 | (missing) | (missing) | | (unavailable | 05:11 | [facility] | | | | + + + +-------+ + + + + | Result panel 389 | + + + + + +--------+ + + | | 2022-03-20 | [facility] | 0.69 | (missing) | (missing) | | (unavailable | 05:11 | [facility] | | | | + + + +--------+ + + + + | Result panel 390 | + + + + + +-------+ + + | | 2022-03-20 | [facility] | 0.3 | (missing) | (missing) | | (unavailable | 05:11 | [facility] | | | | + + + +-------+ + + + + | Result panel 391 | + + + + + +------+ + + | | 2022-03-20 | [facility] | 36 | (missing) | (missing) | | (unavailable | 05:11 | [facility] | | | | + + + +------+ + + + + | Result panel 392 | + + + + + +------+ + + | | 2022-03-20 | [facility] | 33 | (missing) | (missing) | | (unavailable | 05:11 | [facility] | | | | + + + +------+ + + + + | Result panel 393 | + + + + + +-------+ + + | | 2022-03-20 | [facility] | 132 | (missing) | (missing) | | (unavailable | 05:11 | [facility] | | | | + + + +-------+ + + + + | Result panel 394 | + + + + + +-------+---------+ + | | 2022-03-20 | [facility] | 1.5 | mg/dL | (missing) | | (unavailable | 05:11 | [facility] | | | | + + + +-------+---------+ + + + | Result panel 395 | + + + + + +-------+---------+ + | | 2022-03-20 | [facility] | 1.5 | mg/dL | (missing) | | (unavailable | 05:11 | [facility] | | | | + + + +-------+---------+ + + + | Result panel 396 | + + + + + + + + + | Serum or | 2022-03-20 | [facility] | NEGATIVE | (missing) | (missing) | | plasma | 08:20 | [facility] | | | indirect | | [facility] | | | | | antiglobulin | | | | | | | test using | | | | | | | poly | | | | | | | specific | | | | | | | reagent | | | | | | + + + + + + + + + | Result panel 397 | + + + + + + + + + | | 2022-03-20 | [facility] | NEGATIVE | (missing) | (missing) | | (unavailable | 08:20 | [facility] | | | | + + + + + + + + + | Result panel 398 | + + + + + + + + + | | 2022-03-20 | [facility] | NEGATIVE | (missing) | (missing) | | (unavailable | 08:20 | [facility] | | | | + + + + + + + + + | Result panel 399 | + + + + + + + + + | | 2022-03-20 | [facility] | NEGATIVE | (missing) | (missing) | | (unavailable | 08:20 | [facility] | | | | + + + + + + + + + | Result panel 400 | + + + + + + + + + | | 2022-03-20 | [facility] | NEGATIVE | (missing) | (missing) | | (unavailable | 08:20 | [facility] | | | | + + + + + + + + + | Result panel 401 | + + + + + +-------+ + + | Blood | 2022-03-21 | [facility] | 7.2 | (missing) | (missing) | | leukocytes | 05:15 | [facility] | | | | automated | | [facility] | | | | | count | | | | | | | (number/volu | | | | | | | me) | | | | | | + + + +-------+ + + + + | Result panel 402 | + + + + + +--------+ + + | Blood | 2022-03-21 | [facility] | 3.16 | (missing) | (missing) | | erythrocytes | 05:15 | [facility] automated [facility] | | | | | count | | | | | | | (number/volu | | | | | | | me) | | | | | | + + + +--------+ + + + + | Result panel 403 | + + + + + +-------+ + + | Blood | 2022-03-21 | [facility] | 9.3 | (missing) | (missing) | | hemoglobin | 05:15 | [facility] | | [facility] measurement | | [facility] | | | | | (mass/volume | | | | | | | ) | | | | | | + + + +-------+ + + + + | Result panel 404 | + + + + + +--------+ + + | Automated | 2022-03-21 | [facility] | 28.2 | (missing) | (missing) | | blood | 05:15 | [facility] | | | hematocrit | | [facility] | | | | + + + +--------+ + + + + | Result panel 405 | + + + + + +--------+ + + | Automated | 2022-03-21 | [facility] | 89.0 | (missing) | (missing) | | erythrocyte | 05:15 | [facility] | | | | mean | | [facility] | | | | | corpuscular | | | | | | | volume | | | | | | + + + +--------+ + + + + | Result panel 406 | + + + + + +--------+ + + | Automated | 2022-03-21 | [facility] | 29.3 | (missing) | (missing) | | erythrocyte | 05:15 | [facility] | | | | mean | | [facility] | | | | | corpuscular | | | | | | | hemoglobin | | | | | | | (mass per | | | | | | | erythrocyte) | | | | | | | | | | | | | + + + +--------+ + + + + | Result panel 407 | + + + + + +--------+ + + | Automated | 2022-03-21 | [facility] | 32.9 | (missing) | (missing) | | erythrocyte | 05:15 | [facility] | | | | mean | | [facility] | | | | | corpuscular | | | | | | | hemoglobin | | | | | | | concentratio | | | | | | | n | | | | | | | measurement | | | | | | | (mass/volume | | | | | | | ) | | | | | | + + + +--------+ + + + + | Result panel 408 | + + + + + +--------+ + + | Automated | 2022-03-21 | [facility] | 15.6 | (missing) | (missing) | | erythrocyte | 05:15 | [facility] | | | | distribution | | [facility] | | | | | width | | | | | | + + + +--------+ + + + + | Result panel 409 | + + + + + +-------+ + + | Automated | 2022-03-21 | [facility] | 330 | (missing) | (missing) | | blood | 05:15 | [facility] | | | | platelet | | [facility] | | | | | count | | | | | | | (count/volum | | | | | | | e) | | | | | | + + + +-------+ + + + + | Result panel 410 | + + + + + +--------+ + + | Automated | 2022-03-21 | [facility] | 69.9 | (missing) | (missing) | | blood | 05:15 | [facility] | | | | neutrophil | | [facility] | | | | | count as | | | | | | | percentage | | | | | | | of total | | | | | | | leukocytes | | | | | | + + + +--------+ + + + + | Result panel 411 | + + + + + +--------+ + + | Automated | 2022-03-21 | [facility] | 17.8 | (missing) | (missing) | | blood | 05:15 | [facility] | | | | lymphocyte | | [facility] | | | | | count as | | | | | | | percentage | | | | | | | ot total | | | | | | | leukocytes | | | | | | + + + +--------+ + + + + | Result panel 412 | + + + + + +-------+ + + | Automated | 2022-03-21 | [facility] | 7.6 | (missing) | (missing) | | blood | 05:15 | [facility] | | | | monocyte | | [facility] | | | | | count as | | | | | | | percentage | | | | | | | of total | | | | | | | leukocytes | | | | | | + + + +-------+ + + + + | Result panel 413 | + + + + + +-------+ + + | Automated | 2022-03-21 | [facility] | 4.1 | (missing) | (missing) | | blood | 05:15 | [facility] | | | | eosinophil | | Hospital | | | | | count as | | | | | | | percentage | | | | | | | of total | | | | | | | leukocytes | | | | | | + + + +-------+ + + + + | Result panel 414 | + + + + + +-------+ + + | Automated | 2022-03-21 | [facility] | 0.6 | (missing) | (missing) | | blood | 05:15 | [facility] | | | | basophil | | [facility] | | | | | count as | | | | | | | percentage | | | | | | | of total | | | | | | | leukocytes | | | | | | + + + +-------+ + + + + | Result panel 415 | + + + + + +-------+ + + | Serum or | 2022-03-21 | [facility] | 124 | (missing) | (missing) | | plasma | 05:15 | [facility] | | | | glucose | | [facility] | | | | | measurement | | | | | | | (mass/volume | | | | | | | ) | | | | | | + + + +-------+ + + + + | Result panel 416 | + + + + + +-----+ + + | Serum or | 2022-03-21 | [facility] | 8 | (missing) | (missing) | | plasma urea | 05:15 | [facility] | | | | nitrogen | | [facility] | | | | | measurement | | | | | | | (mass/volume | | | | | | | ) | | | | | | + + + +-----+ + + + + | Result panel 417 | + + + + + +--------+ + + | Serum or | 2022-03-21 | [facility] | 1.59 | (missing) | (missing) | | plasma | 05:15 | [facility] | | | | creatinine | | [facility] | | | | | measurement | | | | | | | (mass/volume | | | | | | | ) | | | | | | + + + +--------+ + + + + | Result panel 418 | + + + + + +------+ + + | Glomerular | 2022-03-21 | [facility] | 47 | (missing) | (missing) | | filtration | 05:15 | [facility] | | | | | rate/1.73 sq | | Hospital | | | | | M.predicted | | | | | | | [Volume | | | | | | | Rate/Area] | | | | | | | inSerum, | | | | | | | Plasma or | | | | | | | Blood by | | | | | | | Creatinine-b | | | | | | | ased formula | | | | | | | (CKD-EPI | | | | | | | 2020) | | | | | | + + + +------+ + + + + | Result panel 419 | + + + + + +--------+ + + | Serum or | 2022-03-21 | [facility] | 5.03 | (missing) | (missing) | | plasma urea | 05:15 | [facility] | | | | nitrogen/cre | | Hospital | | | | | atinine mass | | | | | | | ratio | | | | | | + + + +--------+ + + + + | Result panel 420 | + + + + + +-------+ + + | Serum or | 2022-03-21 | [facility] | 142 | (missing) | (missing) | | plasma | 05:15 | [facility] | | | | sodium | | [facility] | | | | | measurement | | | | | | | (moles/volum | | | | | | | e) | | | | | | + + + +-------+ + + + + | Result panel 421 | + + + + + +-------+ + + | Serum or | 2022-03-21 | [facility] | 3.5 | (missing) | (missing) | | plasma | 05:15 | [facility] | | | | potassium | | [facility] | | | | | measurement | | | | | | | (moles/volum | | | | | | | e) | | | | | | + + + +-------+ + + + + | Result panel 422 | + + + + + +-------+ + + | Serum or | 2022-03-21 | [facility] | 109 | (missing) | (missing) | | plasma | 05:15 | [facility] | | | | chloride | | [facility] | | | | | measurement | | | | | | | (moles/volum | | | | | | | e) | | | | | | + + + +-------+ + + + + | Result panel 423 | + + + + + +------+ + + | Serum or | 2022-03-21 | [facility] | 24 | (missing) | (missing) | | plasma | 05:15 | [facility] | | | | | carbon | | Hospital | | | | | dioxide, | | | | | | | total | | | | | | | measurement | | | | | | | (moles/volum | | | | | | | e) | | | | | | + + + +------+ + + + + | Result panel 424 | + + + + + +--------+ + + | Serum or | 2022-03-21 | [facility] | 12.5 | (missing) | (missing) | | plasma anion | 05:15 | [facility] | | | | gap 4 | | [facility] | | | | + + + +--------+ + + + + | Result panel 425 | + + + + + +-------+ + + | Serum or | 2022-03-21 | [facility] | 8.6 | (missing) | (missing) | | plasma | 05:15 | [facility] | | | | calcium | | [facility] | | | | | measurement | | | | | | | (mass/volume | | | | | | | ) | | | | | | + + + +-------+ + + + + | Result panel 426 | + + + + + +-------+ + + | | 2022-03-21 | [facility] | 7.2 | (missing) | (missing) | | (unavailable | 05:15 | [facility] | | | | + + + +-------+ + + + + | Result panel 427 | + + + + + +--------+ + + | | 2022-03-21 | [facility] | 3.16 | (missing) | (missing) | | (unavailable | 05:15 | [facility] | | | | + + + +--------+ + + + + | Result panel 428 | + + + + + +-------+ + + | | 2022-03-21 | [facility] | 9.3 | (missing) | (missing) | | (unavailable | 05:15 | [facility] | | | | + + + +-------+ + + + + | Result panel 429 | + + + + + +--------+ + + | | 2022-03-21 | [facility] | 28.2 | (missing) | (missing) | | (unavailable | 05:15 | [facility] | | | | + + + +--------+ + + + + | Result panel 430 | + + + + + +--------+ + + | | 2022-03-21 | [facility] | 89.0 | (missing) | (missing) | | (unavailable | 05:15 | [facility] | | | | + + + +--------+ + + + + | Result panel 431 | + + + + + +--------+ + + | | 2022-03-21 | [facility] | 29.3 | (missing) | (missing) | | (unavailable | 05:15 | [facility] | | | | + + + +--------+ + + + + | Result panel 432 | + + + + + +--------+ + + | | 2022-03-21 | [facility] | 32.9 | (missing) | (missing) | | (unavailable | 05:15 | [facility] | | | | + + + +--------+ + + + + | Result panel 433 | + + + + + +--------+ + + | | 2022-03-21 | [facility] | 15.6 | (missing) | (missing) | | (unavailable | 05:15 | [facility] | | | | + + + +--------+ + + + + | Result panel 434 | + + + + + +-------+ + + | | 2022-03-21 | [facility] | 330 | (missing) | (missing) | | (unavailable | 05:15 | [facility] | | | | + + + +-------+ + + + + | Result panel 435 | + + + + + +--------+ + + | | 2022-03-21 | [facility] | 69.9 | (missing) | (missing) | | (unavailable | 05:15 | [facility] | | | | + + + +--------+ + + + + | Result panel 436 | + + + + + +--------+ + + | | 2022-03-21 | [facility] | 17.8 | (missing) | (missing) | | (unavailable | 05:15 | [facility] | | | | + + + +--------+ + + + + | Result panel 437 | + + + + + +-------+ + + | | 2022-03-21 | [facility] | 7.6 | (missing) | (missing) | | (unavailable | 05:15 | [facility] | | | | + + + +-------+ + + + + | Result panel 438 | + + + + + +-------+ + + | | 2022-03-21 | [facility] | 4.1 | (missing) | (missing) | | (unavailable | 05:15 | [facility] | | | | + + + +-------+ + + + + | Result panel 439 | + + + + + +-------+ + + | | 2022-03-21 | [facility] | 0.6 | (missing) | (missing) | | (unavailable | 05:15 | [facility] | | | | + + + +-------+ + + + + | Result panel 440 | + + + + + +-------+---------+ + | | 2022-03-21 | [facility] | 124 | mg/dL | (missing) | | (unavailable | 05:15 | [facility] | | | | + + + +-------+---------+ + + + | Result panel 441 | + + + + + +-----+---------+ + | | 2022-03-21 | [facility] | 8 | mg/dL | (missing) | | (unavailable | 05:15 | [facility] | | | | + + + +-----+---------+ + + + | Result panel 442 | + + + + + +--------+---------+ + | | 2022-03-21 | [facility] | 1.59 | mg/dL | (missing) | | (unavailable | 05:15 | [facility] | | | | + + + +--------+---------+ + + + | Result panel 443 | + + + + + +------+ + + | | 2022-03-21 | [facility] | 47 | (missing) | (missing) | | (unavailable | 05:15 | [facility] | | | | + + + +------+ + + + + | Result panel 444 | + + + + + +--------+ + + | | 2022-03-21 | [facility] | 5.03 | (missing) | (missing) | | (unavailable | 05:15 | [facility] | | | | + + + +--------+ + + + + | Result panel 445 | + + + + + +-------+ + + | | 2022-03-21 | [facility] | 142 | (missing) | (missing) | | (unavailable | 05:15 | [facility] | | | | + + + +-------+ + + + + | Result panel 446 | + + + + + +-------+ + + | | 2022-03-21 | [facility] | 3.5 | (missing) | (missing) | | (unavailable | 05:15 | [facility] | | | | + + + +-------+ + + + + | Result panel 447 | + + + + + +-------+ + + | | 2022-03-21 | [facility] | 109 | (missing) | (missing) | | (unavailable | 05:15 | [facility] | | | | + + + +-------+ + + + + | Result panel 448 | + + + + + +------+ + + | | 2022-03-21 | [facility] | 24 | (missing) | (missing) | | (unavailable | 05:15 | [facility] | | | | + + + +------+ + + + + | Result panel 449 | + + + + + +--------+ + + | | 2022-03-21 | [facility] | 12.5 | (missing) | (missing) | | (unavailable | 05:15 | [facility] | | | | + + + +--------+ + + + + | Result panel 450 | + + + + + +-------+---------+ + | | 2022-03-21 | [facility] | 8.6 | mg/dL | (missing) | | (unavailable | 05:15 | [facility] | | | | + + + +-------+---------+ + + + | Result panel 451 | + + + + + +-------+ + + | | 2022-03-22 | [facility] | 163 | (missing) | (missing) | | (unavailable | 07:51 | [facility] | | | | + + + +-------+ + + + + | Result panel 452 | + + + + + +-------+ + + | | 2022-03-22 | [facility] | 163 | (missing) | (missing) | | (unavailable | 07:51 | [facility] | | | | + + + +-------+ + + + + | Result panel 453 | + + + + + +-------+ + + | | 2022-03-22 | [facility] | 163 | (missing) | (missing) | | (unavailable | 07:51 | [facility] | | | | + + + +-------+ + + + + | Result panel 454 | + + + + + +-------+ + + | | 2022-03-22 | [facility] | 163 | (missing) | (missing) | | (unavailable | 07:51 | [facility] | | | | + + + +-------+ + + + + | Result panel 455 | + + + + + +-------+ + + | | 2022-03-26 | [facility] | 5.9 | (missing) | (missing) | | (unavailable | 07:35 | [facility] | | | | + + + +-------+ + + + + | Result panel 456 | + + + + + +--------+ + + | | 2022-03-26 | [facility] | 3.95 | (missing) | (missing) | | (unavailable | 07:35 | [facility] | | | + + + +--------+ + + + + | Result panel 457 | + + + + + +--------+ + + | | 2022-03-26 | [facility] | 11.4 | (missing) | (missing) | | (unavailable | 07:35 | [facility] | | | + + + +--------+ + + + + | Result panel 458 | + + + + + +--------+ + + | | 2022-03-26 | [facility] | 35.2 | (missing) | (missing) | | (unavailable | 07:35 | [facility] | | | + + + +--------+ + + + + | Result panel 459 | + + + + + +--------+ + + | | 2022-03-26 | [facility] | 89.2 | (missing) | (missing) | | (unavailable | 07:35 | [facility] | | | + + + +--------+ + + + + | Result panel 460 | + + + + + +--------+ + + | | 2022-03-26 | [facility] | 28.8 | (missing) | (missing) | | (unavailable | 07:35 | [facility] | | | + + + +--------+ + + + + | Result panel 461 | + + + + + +--------+ + + | | 2022-03-26 | [facility] | 32.3 | (missing) | (missing) | | (unavailable | 07:35 | [facility] | | | + + + +--------+ + + + + | Result panel 462 | + + + + + +--------+ + + | | 2022-03-26 | [facility] | 15.5 | (missing) | (missing) | | (unavailable | 07:35 | [facility] | | | + + + +--------+ + + + + | Result panel 463 | + + + + + +-------+ + + | | 2022-03-26 | [facility] | 716 | (missing) | (missing) | | (unavailable | 07:35 | [facility] | | | + + + +-------+ + + + + | Result panel 464 | + + + + + +--------+ + + | | 2022-03-26 | [facility] | 44.4 | (missing) | (missing) | | (unavailable | 07:35 | [facility] | | | + + + +--------+ + + + + | Result panel 465 | + + + + + +--------+ + + | | 2022-03-26 | [facility] | 43.2 | (missing) | (missing) | | (unavailable | 07:35 | [facility] | | | + + + +--------+ + + + + | Result panel 466 | + + + + + +-------+ + + | | 2022-03-26 | [facility] | 8.9 | (missing) | (missing) | | (unavailable | 07:35 | [facility] | | | + + + +-------+ + + + + | Result panel 467 | + + + + + +-------+ + + | | 2022-03-26 | [facility] | 2.4 | (missing) | (missing) | | (unavailable | 07:35 | [facility] | | | + + + +-------+ + + + + | Result panel 468 | + + + + + +-------+ + + | | 2022-03-26 | [facility] | 1.1 | (missing) | (missing) | | (unavailable | 07:35 | [facility] | | | + + + +-------+ + + + + | Result panel 469 | + + + + + +--------+ + + | | 2022-03-26 | [facility] | 0.38 | (missing) | (missing) | | (unavailable | 07:35 | [facility] | | | + + + +--------+ + + + + | Result panel 470 | + + + + + +-------+---------+ + | | 2022-03-26 | [facility] | 342 | mg/dL | (missing) | | (unavailable | 07:35 | [facility] | | | + + + +-------+---------+ + + + | Result panel 471 | + + + + + +------+---------+ + | | 2022-03-26 | [facility] | 25 | mg/dL | (missing) | | (unavailable | 07:35 | [facility] | | | + + + +------+---------+ + + + | Result panel 472 | + + + + + +--------+---------+ + | | 2022-03-26 | [facility] | 1.97 | mg/dL | (missing) | | (unavailable | 07:35 | [facility] | | | + + + +--------+---------+ + + + | Result panel 473 | + + + + + +------+ + + | | 2022-03-26 | [facility] | 36 | (missing) | (missing) | | (unavailable | 07:35 | [facility] | | | + + + +------+ + + + + | Result panel 474 | + + + + + +---------+ + + | | 2022-03-26 | [facility] | 12.69 | (missing) | (missing) | | (unavailable | 07:35 | [facility] | | | + + + +---------+ + + + + | Result panel 475 | + + + + + +-------+ + + | | 2022-03-26 | [facility] | 131 | (missing) | (missing) | | (unavailable | 07:35 | [facility] | | | + + + +-------+ + + + + | Result panel 476 | + + + + + +-------+ + + | | 2022-03-26 | [facility] | 4.5 | (missing) | (missing) | | (unavailable | 07:35 | [facility] | | | + + + +-------+ + + + + | Result panel 477 | + + + + + +------+ + + | | 2022-03-26 | [facility] | 99 | (missing) | (missing) | | (unavailable | 07:35 | [facility] | | | + + + +------+ + + + + | Result panel 478 | + + + + + +------+ + + | | 2022-03-26 | [facility] | 22 | (missing) | (missing) | | (unavailable | 07:35 | [facility] | | | + + + +------+ + + + + | Result panel 479 | + + + + + +--------+ + + | | 2022-03-26 | [facility] | 14.5 | (missing) | (missing) | | (unavailable | 07:35 | [facility] | | | + + + +--------+ + + + + | Result panel 480 | + + + + + +-------+---------+ + | | 2022-03-26 | [facility] | 9.4 | mg/dL | (missing) | | (unavailable | 07:35 | [facility] | | | + + + +-------+---------+ + + + | Result panel 481 | + + + + + +-------+ + + | | 2022-03-26 | [facility] | 7.8 | (missing) | (missing) | | (unavailable | 07:35 | [facility] | | | + + + +-------+ + + + + | Result panel 482 | + + + + + +-------+ + + | | 2022-03-26 | [facility] | 3.5 | (missing) | (missing) | | (unavailable | 07:35 | [facility] | | | + + + +-------+ + + + + | Result panel 483 | + + + + + +-------+ + + | | 2022-03-26 | [facility] | 4.3 | (missing) | (missing) | | (unavailable | 07:35 | [facility] | | | + + + +-------+ + + + + | Result panel 484 | + + + + + +--------+ + + | | 2022-03-26 | [facility] | 0.81 | (missing) | (missing) | | (unavailable | 07:35 | [facility] | | | + + + +--------+ + + + + | Result panel 485 | + + + + + +-------+ + + | | 2022-03-26 | [facility] | 0.3 | (missing) | (missing) | | (unavailable | 07:35 | [facility] | | | + + + +-------+ + + + + | Result panel 486 | + + + + + +------+ + + | | 2022-03-26 | [facility] | 54 | (missing) | (missing) | | (unavailable | 07:35 | [facility] | | | + + + +------+ + + + + | Result panel 487 | + + + + + +------+ + + | | 2022-03-26 | [facility] | 28 | (missing) | (missing) | | (unavailable | 07:35 | [facility] | | | + + + +------+ + + + + | Result panel 488 | + + + + + +-------+ + + | | 2022-03-26 | [facility] | 190 | (missing) | (missing) | | (unavailable | 07:35 | [facility] | | | + + + +-------+ + + + + | Result panel 489 | + + + + + +-------+ + + | | 2022-03-26 | [facility] | 5.2 | (missing) | (missing) | | (unavailable | 07:35 | [facility] | | | + + + +-------+ + + + + | Result panel 490 | + + + + + +-------+ + + | | 2022-03-26 | [facility] | 5.9 | (missing) | (missing) | | (unavailable | 07:35 | [facility] | | | + + + +-------+ + + + + | Result panel 491 | + + + + + +--------+ + + | | 2022-03-26 | [facility] | 3.95 | (missing) | (missing) | | (unavailable | 07:35 | [facility] | | | + + + +--------+ + + + + | Result panel 492 | + + + + + +--------+ + + | | 2022-03-26 | [facility] | 11.4 | (missing) | (missing) | | (unavailable | 07:35 | [facility] | | | + + + +--------+ + + + + | Result panel 493 | + + + + + +--------+ + + | | 2022-03-26 | [facility] | 35.2 | (missing) | (missing) | | (unavailable | 07:35 | [facility] | | | + + + +--------+ + + + + | Result panel 494 | + + + + + +--------+ + + | | 2022-03-26 | [facility] | 89.2 | (missing) | (missing) | | (unavailable | 07:35 | [facility] | | | + + + +--------+ + + + + | Result panel 495 | + + + + + +--------+ + + | | 2022-03-26 | [facility] | 28.8 | (missing) | (missing) | | (unavailable | 07:35 | [facility] | | | + + + +--------+ + + + + | Result panel 496 | + + + + + +--------+ + + | | 2022-03-26 | [facility] | 32.3 | (missing) | (missing) | | (unavailable | 07:35 | [facility] | | | + + + +--------+ + + + + | Result panel 497 | + + + + + +--------+ + + | | 2022-03-26 | [facility] | 15.5 | (missing) | (missing) | | (unavailable | 07:35 | [facility] | | | + + + +--------+ + + + + | Result panel 498 | + + + + + +-------+ + + | | 2022-03-26 | [facility] | 716 | (missing) | (missing) | | (unavailable | 07:35 | [facility] | | | + + + +-------+ + + + + | Result panel 499 | + + + + + +--------+ + + | | 2022-03-26 | [facility] | 44.4 | (missing) | (missing) | | (unavailable | 07:35 | [facility] | | | + + + +--------+ + + + + | Result panel 500 | + + + + + +--------+ + + | | 2022-03-26 | [facility] | 43.2 | (missing) | (missing) | | (unavailable | 07:35 | [facility] | | | + + + +--------+ + + + + | Result panel 501 | + + + + + +-------+ + + | | 2022-03-26 | [facility] | 8.9 | (missing) | (missing) | | (unavailable | 07:35 | [facility] | | | + + + +-------+ + + + + | Result panel 502 | + + + + + +-------+ + + | | 2022-03-26 | [facility] | 2.4 | (missing) | (missing) | | (unavailable | 07:35 | [facility] | | | + + + +-------+ + + + + | Result panel 503 | + + + + + +-------+ + + | | 2022-03-26 | [facility] | 1.1 | (missing) | (missing) | | (unavailable | 07:35 | [facility] | | | + + + +-------+ + + + + | Result panel 504 | + + + + + +--------+ + + | | 2022-03-26 | [facility] | 0.38 | (missing) | (missing) | | (unavailable | 07:35 | [facility] | | | + + + +--------+ + + + + | Result panel 505 | + + + + + +-------+---------+ + | | 2022-03-26 | [facility] | 342 | mg/dL | (missing) | | (unavailable | 07:35 | [facility] | | | + + + +-------+---------+ + + + | Result panel 506 | + + + + + +------+---------+ + | | 2022-03-26 | [facility] | 25 | mg/dL | (missing) | | (unavailable | 07:35 | [facility] | | | + + + +------+---------+ + + + | Result panel 507 | + + + + + +--------+---------+ + | | 2022-03-26 | [facility] | 1.97 | mg/dL | (missing) | | (unavailable | 07:35 | [facility] | | | + + + +--------+---------+ + + + | Result panel 508 | + + + + + +------+ + + | | 2022-03-26 | [facility] | 36 | (missing) | (missing) | | (unavailable | 07:35 | [facility] | | | + + + +------+ + + + + | Result panel 509 | + + + + + +---------+ + + | | 2022-03-26 | [facility] | 12.69 | (missing) | (missing) | | (unavailable | 07:35 | [facility] | | | + + + +---------+ + + + + | Result panel 510 | + + + + + +-------+ + + | | 2022-03-26 | [facility] | 131 | (missing) | (missing) | | (unavailable | 07:35 | [facility] | | | + + + +-------+ + + + + | Result panel 511 | + + + + + +-------+ + + | | 2022-03-26 | [facility] | 4.5 | (missing) | (missing) | | (unavailable | 07:35 | [facility] | | | + + + +-------+ + + + + | Result panel 512 | + + + + + +------+ + + | | 2022-03-26 | [facility] | 99 | (missing) | (missing) | | (unavailable | 07:35 | [facility] | | | + + + +------+ + + + + | Result panel 513 | + + + + + +------+ + + | | 2022-03-26 | [facility] | 22 | (missing) | (missing) | | (unavailable | 07:35 | [facility] | | | + + + +------+ + + + + | Result panel 514 | + + + + + +--------+ + + | | 2022-03-26 | [facility] | 14.5 | (missing) | (missing) | | (unavailable | 07:35 | [facility] | | | + + + +--------+ + + + + | Result panel 515 | + + + + + +-------+---------+ + | | 2022-03-26 | [facility] | 9.4 | mg/dL | (missing) | | (unavailable | 07:35 | [facility] | | | + + + +-------+---------+ + + + | Result panel 516 | + + + + + +-------+ + + | | 2022-03-26 | [facility] | 7.8 | (missing) | (missing) | | (unavailable | 07:35 | [facility] | | | + + + +-------+ + + + + | Result panel 517 | + + + + + +-------+ + + | | 2022-03-26 | [facility] | 3.5 | (missing) | (missing) | | (unavailable | 07:35 | [facility] | | | + + + +-------+ + + + + | Result panel 518 | + + + + + +-------+ + + | | 2022-03-26 | [facility] | 4.3 | (missing) | (missing) | | (unavailable | 07:35 | [facility] | | | + + + +-------+ + + + + | Result panel 519 | + + + + + +--------+ + + | | 2022-03-26 | [facility] | 0.81 | (missing) | (missing) | | (unavailable | 07:35 | [facility] | | | + + + +--------+ + + + + | Result panel 520 | + + + + + +-------+ + + | | 2022-03-26 | [facility] | 0.3 | (missing) | (missing) | | (unavailable | 07:35 | [facility] | | | + + + +-------+ + + + + | Result panel 521 | + + + + + +------+ + + | | 2022-03-26 | [facility] | 54 | (missing) | (missing) | | (unavailable | 07:35 | [facility] | | | + + + +------+ + + + + | Result panel 522 | + + + + + +------+ + + | | 2022-03-26 | [facility] | 28 | (missing) | (missing) | | (unavailable | 07:35 | [facility] | | | | + + + +------+ + + + + | Result panel 523 | + + + + + +-------+ + + | | 2022-03-26 | [facility] | 190 | (missing) | (missing) | | (unavailable | 07:35 | [facility] | | | + + + +-------+ + + + + | Result panel 524 | + + + + + +-------+ + + | | 2022-03-26 | [facility] | 5.2 | (missing) | (missing) | | (unavailable | 07:35 | [facility] | | | + + + +-------+ + + + + | Result panel 525 | + + + + + + + + + | | 2022-03-26 | [facility] | NEGATIVE | (missing) | (missing) | | (unavailable | 07:52 | [facility] | | | | + + + + + + + + + | Result panel 526 | + + + + + + + + + | | 2022-03-26 | [facility] | NEGATIVE | (missing) | (missing) | | (unavailable | 07:52 | [facility] | | | + + + + + + + + + | Result panel 527 | + + + + + + + + + | | 2022-03-26 | [facility] | NEGATIVE | (missing) | (missing) | | (unavailable | 07:52 | [facility] | | | + + + + + + + + + | Result panel 528 | + + + + + + + + + | | 2022-03-26 | [facility] | NEGATIVE | (missing) | (missing) | | (unavailable | 07:52 | [facility] | | | + + + + + + + + + | Result panel 529 | + + + + + + + + + | | 2022-03-26 | [facility] | NEGATIVE | (missing) | (missing) | | (unavailable | 07:52 | [facility] | | | + + + + + + + + + | Result panel 530 | + + + + + + + + + | | 2022-03-26 | [facility] | NEGATIVE | (missing) | (missing) | | (unavailable | 07:52 | [facility] | | | + + + + + + + + + | Result panel 531 | + + + + + + + + + | | 2022-03-26 | [facility] | NEGATIVE | (missing) | (missing) | | (unavailable | 07:52 | [facility] | | | + + + + + + + + + | Result panel 532 | + + + + + + + + + | | 2022-03-26 | [facility] | NEGATIVE | (missing) | (missing) | | (unavailable | 07:52 | [facility] | | | + + + + + + + + + | Result panel 533 | + + + + + +-------+ + + | | 2022-05-22 | [facility] | 4.5 | (missing) | (missing) | | (unavailable | 23:20 | [facility] | | | + + + +-------+ + + + + | Result panel 534 | + + + + + + + + + | | 2022-05-22 | [facility] | NEGATIVE | (missing) | (missing) | | (unavailable | 23:20 | [facility] | | | + + + + + + + + + | Result panel 535 | + + + + + +-------+ + + | | 2022-06-18 | [facility] | 7.3 | (missing) | (missing) | | (unavailable | 12:20 | [facility] | | | + + + +-------+ + + + + | Result panel 536 | + + + + + +--------+ + + | | 2022-06-18 | [facility] | 3.49 | (missing) | (missing) | | (unavailable | 12:20 | [facility] | | | + + + +--------+ + + + + | Result panel 537 | + + + + + +--------+ + + | | 2022-06-18 | [facility] | 10.4 | (missing) | (missing) | | (unavailable | 12:20 | [facility] | | | + + + +--------+ + + + + | Result panel 538 | + + + + + +--------+ + + | | 2022-06-18 | [facility] | 32.7 | (missing) | (missing) | | (unavailable | 12:20 | [facility] | | | + + + +--------+ + + + + | Result panel 539 | + + + + + +--------+ + + | | 2022-06-18 | [facility] | 93.7 | (missing) | (missing) | | (unavailable | 12:20 [facility] | | | | + + + +--------+ + + + + | Result panel 540 | + + + + + +--------+ + + | | 2022-06-18 | [facility] | 29.8 | (missing) | (missing) | | (unavailable | 12:20 | [facility] | | | + + + +--------+ + + + + | Result panel 541 | + + + + + +--------+ + + | | 2022-06-18 | [facility] | 31.8 | (missing) | (missing) | | (unavailable | 12:20 | [facility] | | | + + + +--------+ + + + + | Result panel 542 | + + + + + +--------+ + + | | 2022-06-18 | [facility] | 15.3 | (missing) | (missing) | | (unavailable | 12:20 | [facility] | | | + + + +--------+ + + + + | Result panel 543 | + + + + + +-------+ + + | | 2022-06-18 | [facility] | 410 | (missing) | (missing) | | (unavailable | 12:20 | [facility] | | | + + + +-------+ + + + + | Result panel 544 | + + + + + +--------+ + + | | 2022-06-18 | [facility] | 78.2 | (missing) | (missing) | | (unavailable | 12:20 | [facility] | | | + + + +--------+ + + + + | Result panel 545 | + + + + + +--------+ + + | | 2022-06-18 | [facility] | 15.9 | (missing) | (missing) | | (unavailable | 12:20 | [facility] | | | + + + +--------+ + + + + | Result panel 546 | + + + + + +-------+ + + | | 2022-06-18 | [facility] | 4.4 | (missing) | (missing) | | (unavailable | 12:20 | [facility] | | | + + + +-------+ + + + + | Result panel 547 | + + + + + +-------+ + + | | 2022-06-18 | [facility] | 0.6 | (missing) | (missing) | | (unavailable | 12:20 | [facility] | | | + + + +-------+ + + + + | Result panel 548 | + + + + + +-------+ + + | | 2022-06-18 | [facility] | 0.9 | (missing) | (missing) | | (unavailable | 12:20 | [facility] | | | | + + + +-------+ + + + + | Result panel 549 | + + + + + +---------+ + + | | 2022-06-18 | [facility] | 7.339 | (missing) | (missing) | | (unavailable | 12:20 | [facility] | | | | + + + +---------+ + + + + | Result panel 550 | + + + + + +-------+---------+ + | | 2022-06-18 | [facility] | 690 | mg/dL | (missing) | | (unavailable | 12:20 | [facility] | | | | + + + +-------+---------+ + + + | Result panel 551 | + + + + + +------+---------+ + | | 2022-06-18 | [facility] | 43 | mg/dL | (missing) | | (unavailable | 12:20 | [facility] | | | | + + + +------+---------+ + + + | Result panel 552 | + + + + + +--------+---------+ + | | 2022-06-18 | [facility] | 1.98 | mg/dL | (missing) | | (unavailable | 12:20 | [facility] | | | | + + + +--------+---------+ + + + | Result panel 553 | + + + + + +------+ + + | | 2022-06-18 | [facility] | 36 | (missing) | (missing) | | (unavailable | 12:20 | [facility] | | | | + + + +------+ + + + + | Result panel 554 | + + + + + +---------+ + + | | 2022-06-18 | [facility] | 21.71 | (missing) | (missing) | | (unavailable | 12:20 | [facility] | | | | + + + +---------+ + + + + | Result panel 555 | + + + + + +-------+ + + | | 2022-06-18 | [facility] | 128 | (missing) | (missing) | | (unavailable | 12:20 | [facility] | | | | + + + +-------+ + + + + | Result panel 556 | + + + + + +-------+ + + | | 2022-06-18 | [facility] | 5.4 | (missing) | (missing) | | (unavailable | 12:20 | [facility] | | | | + + + +-------+ + + + + | Result panel 557 | + + + + + +------+ + + | | 2022-06-18 | [facility] | 93 | (missing) | (missing) | | (unavailable | 12:20 | [facility] | | | | + + + +------+ + + + + | Result panel 558 | + + + + + +------+ + + | | 2022-06-18 | [facility] | 22 | (missing) | (missing) | | (unavailable | 12:20 | [facility] | | | | + + + +------+ + + + + | Result panel 559 | + + + + + +--------+ + + | | 2022-06-18 | [facility] | 18.4 | (missing) | (missing) | | (unavailable | 12:20 | [facility] | | | + + + +--------+ + + + + | Result panel 560 | + + + + + +-------+---------+ + | | 2022-06-18 | [facility] | 9.3 | mg/dL | (missing) | | (unavailable | 12:20 | [facility] | | | | + + + +-------+---------+ + + + | Result panel 561 | + + + + + +-------+ + + | | 2022-06-18 | [facility] | 8.8 | (missing) | (missing) | | (unavailable | 12:20 | [facility] | | | | + + + +-------+ + + + + | Result panel 562 | + + + + + +-------+ + + | | 2022-06-18 | [facility] | 4.1 | (missing) | (missing) | | (unavailable | 12:20 | [facility] | | | | + + + +-------+ + + + + | Result panel 563 | + + + + + +-------+ + + | | 2022-06-18 | [facility] | 4.7 | (missing) | (missing) | | (unavailable | 12:20 | [facility] | | | | + + + +-------+ + + + + | Result panel 564 | + + + + + +--------+ + + | | 2022-06-18 | [facility] | 0.87 | (missing) | (missing) | | (unavailable | 12:20 | [facility] | | | | + + + +--------+ + + + + | Result panel 565 | + + + + + +-------+ + + | | 2022-06-18 | [facility] | 0.4 | (missing) | (missing) | | (unavailable | 12:20 | [facility] | | | | + + + +-------+ + + + + | Result panel 566 | + + + + + +------+ + + | | 2022-06-18 | [facility] | 72 | (missing) | (missing) | | (unavailable | 12:20 [facility] | | | | + + + +------+ + + + + | Result panel 567 | + + + + + +------+ + + | | 2022-06-18 | [facility] | 74 | (missing) | (missing) | | (unavailable | 12:20 | [facility] | | | | + + + +------+ + + + + | Result panel 568 | + + + + + +-------+ + + | | 2022-06-18 | [facility] | 223 | (missing) | (missing) | | (unavailable | 12:20 | [facility] | | | | + + + +-------+ + + + + | Result panel 569 | + + + + + +-----+ + + | | 2022-06-18 | [facility] | 8 | (missing) | (missing) | | (unavailable | 12:20 | [facility] | | | | + + + +-----+ + + + + | Result panel 570 | + + + + + + + + + | | 2022-06-18 | [facility] | YELLOW | (missing) | (missing) | | (unavailable | 13:00 | [facility] | | | | + + + + + + + + + | Result panel 571 | + + + + + +---------+ + + | | 2022-06-18 | [facility] | CLEAR | (missing) | (missing) | | (unavailable | 13:00 | [facility] | | | | + + + +---------+ + + + + | Result panel 572 | + + + + + + + + + | | 2022-06-18 | [facility] | >=1000 | (missing) | (missing) | | (unavailable | 13:00 | [facility] | | | | + + + + + + + + + | Result panel 573 | + + + + + + + + + | | 2022-06-18 | [facility] | NEGATIVE | (missing) | (missing) | | (unavailable | 13:00 | [facility] | | | | + + + + + + + + + | Result panel 574 | + + + + + +---------+ + + | | 2022-06-18 | [facility] | TRACE | (missing) | (missing) | | (unavailable | 13:00 | [facility] | | | | + + + +---------+ + + + + | Result panel 575 | + + + + + +---------+ + + | | 2022-06-18 | [facility] | 1.015 | (missing) | (missing) | | (unavailable | 13:00 | [facility] | | | | + + + +---------+ + + + + | Result panel 576 | + + + + + + + + + | | 2022-06-18 | [facility] | TRACE-I | (missing) | (missing) | | (unavailable | 13:00 | [facility] | | | | + + + + + + + + + | Result panel 577 | + + + + + +-------+ + + | | 2022-06-18 | [facility] | 7.0 | (missing) | (missing) | | (unavailable | 13:00 | [facility] | | | | + + + +-------+ + + + + | Result panel 578 | + + + + + +------+ + + | | 2022-06-18 | [facility] | 30 | (missing) | (missing) | | (unavailable | 13:00 | [facility] | | | | + + + +------+ + + + + | Result panel 579 | + + + + + + + + + | | 2022-06-18 | [facility] | NORMAL | (missing) | (missing) | | (unavailable | 13:00 | [facility] | | | + + + + + + + + + | Result panel 580 | + + + + + + + + + | | 2022-06-18 | [facility] | NEGATIVE | (missing) | (missing) | | (unavailable | 13:00 | [facility] | | | + + + + + + + + + | Result panel 581 | + + + + + + + + + | | 2022-06-18 | [facility] | NEGATIVE | (missing) | (missing) | | (unavailable | 13:00 [facility] | | | + + + + + + + + + | Result panel 582 | + + + + + +-------+ + + | | 2022-06-18 | [facility] | 2-3 | (missing) | (missing) | | (unavailable | 13:00 [facility] | | | + + + +-------+ + + + + | Result panel 583 | + + + + + +-------+ + + | | 2022-06-18 | [facility] | 0-1 | (missing) | (missing) | | (unavailable | 13:00 [facility] | | | + + + +-------+ + + + + | Result panel 584 | + + + + + + + + + | | 2022-06-18 | [facility] | SQUAMOUS 1+ | (missing) | (missing) | | (unavailable | 13:00 [facility] | | | + + + + + + + + + | Result panel 585 | + + + + + + + + + | | 2022-06-18 | [facility] | NONE SEEN | (missing) | (missing) | | (unavailable | 13:00 [facility] | | | + + + + + + + + + | Result panel 586 | + + + + + + + + + | | 2022-06-18 | [facility] | NONE SEEN | (missing) | (missing) | | (unavailable | 13:00 [facility] | | | + + + + + + + + + | Result panel 587 | + + + + + +------+ + + | | 2022-06-18 | [facility] | No | (missing) | (missing) | | (unavailable | 13:00 [facility] | | | + + + +------+ + + + + | Result panel 588 | + + + + + + + + + | | 2022-06-18 | [facility] | CLEAN CATCH | (missing) | (missing) | | (unavailable | 13:00 [facility] | | | + + + + + + + + + | Result panel 589 | + + + + + + + + + | | 2022-06-18 | [facility] | NEGATIVE | (missing) | (missing) | | (unavailable | 13:00 [facility] | | | + + + + + + + + + | Result panel 590 | + + + + + + + + + | | 2022-06-18 | [facility] | NEGATIVE | (missing) | (missing) | | (unavailable | 13:00 | [facility] | | | + + + + + + + + + | Result panel 591 | + + + + + +---------+ + + | | 2022-06-21 | [facility] | 7.271 | (missing) | (missing) | | (unavailable | 12:29 | [facility] | | | + + + +---------+ + + + + | Result panel 592 | + + + + + + + + + | | 2022-06-21 | [facility] | NEGATIVE | (missing) | (missing) | | (unavailable | 12:29 | [facility] | | | + + + + + + + + + | Result panel 593 | + + + + + + + + + | | 2022-06-21 | [facility] | NEGATIVE | (missing) | (missing) | | (unavailable | 12:29 | [facility] | | | + + + + + + + + + | Result panel 594 | + + + + + +---------+ + + | | 2022-06-21 | [facility] | 7.271 | (missing) | (missing) | | (unavailable | 12:29 | [facility] | | | + + + +---------+ + + + + | Result panel 595 | + + + + + + + + + | | 2022-06-21 | [facility] | NEGATIVE | (missing) | (missing) | | (unavailable | 12:29 | [facility] | | | + + + + + + + + + | Result panel 596 | + + + + + + + + + | | 2022-06-21 | [facility] | NEGATIVE | (missing) | (missing) | | (unavailable | 12:29 | [facility] | | | + + + + + + + + + | Result panel 597 | + + + + + +---------+ + + | | 2022-06-21 | [facility] | 7.271 | (missing) | (missing) | | (unavailable | 12:29 | [facility] | | | + + + +---------+ + + + + | Result panel 598 | + + + + + +-------+ + + | | 2022-06-21 | [facility] | 149 | (missing) | (missing) | | (unavailable | 12:29 | [facility] | | | + + + +-------+ + + + + | Result panel 599 | + + + + + + + + + | | 2022-06-21 | [facility] | NEGATIVE | (missing) | (missing) | | (unavailable | 12:29 | [facility] | | | + + + + + + + + + | Result panel 600 | + + + + + + + + + | | 2022-06-21 | [facility] | NEGATIVE | (missing) | (missing) | | (unavailable | 12:29 | [facility] | | | + + + + + + + + + | Result panel 601 | + + + + + + + + + | | 2022-06-21 | [facility] | NEGATIVE | (missing) | (missing) | | (unavailable | 13:15 | [facility] | | | + + + + + + + + + | Result panel 602 | + + + + + + + + + | | 2022-06-21 | [facility] | NEGATIVE | (missing) | (missing) | | (unavailable | 13:15 | [facility] | | | + + + + + + + + + | Result panel 603 | + + + + + + + + + | | 2022-06-21 | [facility] | NEGATIVE | (missing) | (missing) | | (unavailable | 13:15 | [facility] | | | + + + + + + + + + | Result panel 604 | + + + + + + + + + | | 2022-06-21 | [facility] | YELLOW | (missing) | (missing) | | (unavailable | 14:07 | [facility] | | | + + + + + + + + + | Result panel 605 | + + + + + +---------+ + + | | 2022-06-21 | [facility] | CLEAR | (missing) | (missing) | | (unavailable | 14:07 | [facility] | | | + + + +---------+ + + + + | Result panel 606 | + + + + + + + + + | | 2022-06-21 | [facility] | >=1000 | (missing) | (missing) | | (unavailable | :07 | [facility] | | | + + + + + + + + + | Result panel 607 | + + + + + + + + + | | 2022-06-21 | [facility] | NEGATIVE | (missing) | (missing) | | (unavailable | :07 | [facility] | | | + + + + + + + + + | Result panel 608 | + + + + + + + + + | | 2022-06-21 | [facility] | NEGATIVE | (missing) | (missing) | | (unavailable | :07 | [facility] | | | + + + + + + + + + | Result panel 609 | + + + + + +---------+ + + | | 2022-06-21 | [facility] | 1.015 | (missing) | (missing) | | (unavailable | : | [facility] | | | + + + +---------+ + + + + | Result panel 610 | + + + + + + + + + | | 2022-06-21 | [facility] | TRACE-L | (missing) | (missing) | | (unavailable | 14:07 | [facility] | | | + + + + + + + + + | Result panel 611 | + + + + + +-------+ + + | | 2022-06-21 | [facility] | 6.0 | (missing) | (missing) | | (unavailable | 14:07 | [facility] | | | + + + +-------+ + + + + | Result panel 612 | + + + + + +------+ + + | | 2022-06-21 | [facility] | 30 | (missing) | (missing) | | (unavailable | :07 | [facility] | | | + + + +------+ + + + + | Result panel 613 | + + + + + + + + + | | 2022-06-21 | [facility] | NORMAL | (missing) | (missing) | | (unavailable | 14:07 | [facility] | | | + + + + + + + + + | Result panel 614 | + + + + + + + + + | | 2022-06-21 | [facility] | NEGATIVE | (missing) | (missing) | | (unavailable | :07 | [facility] | | | + + + + + + + + + | Result panel 615 | + + + + + + + + + | | 2022-06-21 | [facility] | NEGATIVE | (missing) | (missing) | | (unavailable | 14:07 | [facility] | | | + + + + + + + + + | Result panel 616 | + + + + + +-------+ + + | | 2022-06-21 | [facility] | 2-3 | (missing) | (missing) | | (unavailable | 14:07 [facility] | | | + + + +-------+ + + + + | Result panel 617 | + + + + + +---------+ + + | | 2022-06-21 | [facility] | 41-50 | (missing) | (missing) | | (unavailable | 14:07 | [facility] | | | + + + +---------+ + + + + | Result panel 618 | + + + + + + + + + | | 2022-06-21 | [facility] | SQUAMOUS 1+ | (missing) | (missing) | | (unavailable | 14:07 | [facility] | | | + + + + + + + + + | Result panel 619 | + + + + + + + + + | | 2022-06-21 | [facility] | NONE SEEN | (missing) | (missing) | | (unavailable | 14:07 [facility] | | | + + + + + + + + + | Result panel 620 | + + + + + +------+ + + | | 2022-06-21 | [facility] | 1+ | (missing) | (missing) | | (unavailable | 14:07 [facility] | | | + + + +------+ + + + + | Result panel 621 | + + + + + + + + + | | 2022-06-21 | [facility] | NONE SEEN | (missing) | (missing) | | (unavailable | 14:07 [facility] | | | + + + + + + + + + | Result panel 622 | + + + + + +-------+ + + | | 2022-06-21 | [facility] | Yes | (missing) | (missing) | | (unavailable | 14:07 | [facility] | | | + + + +-------+ + + + + | Result panel 623 | + + + + + + + + + | | 2022-06-21 | [facility] | CLEAN CATCH | (missing) | (missing) | | (unavailable | 14:07 | [facility] | | | + + + + + + + + + | Result panel 624 | + + + + + +-------+---------+ + | | 2022-06-22 | [facility] | 2.8 | mg/dL | (missing) | | (unavailable | 05:18 | [facility] | | | + + + +-------+---------+ + + + | Result panel 625 | + + + + + +--------+ + + | | 2022-06-22 | [facility] | 10.8 | (missing) | (missing) | | (unavailable | 05:18 | [facility] | | | + + + +--------+ + + + + | Result panel 626 | + + + + + +-------+---------+ + | | 2022-06-22 | [facility] | 2.8 | mg/dL | (missing) | | (unavailable | 05:18 | [facility] | | | + + + +-------+---------+ + + + | Result panel 627 | + + + + + +--------+ + + | | 2022-06-22 | [facility] | 10.8 | (missing) | (missing) | | (unavailable | 05:18 | [facility] | | | + + + +--------+ + + + + | Result panel 628 | + + + + + +-------+ + + | | 2022-06-22 | [facility] | 4.9 | (missing) | (missing) | | (unavailable | 05:18 | [facility] | | | + + + +-------+ + + + + | Result panel 629 | + + + + + +--------+ + + | | 2022-06-22 | [facility] | 2.81 | (missing) | (missing) | | (unavailable | 05:18 | [facility] | | | + + + +--------+ + + + + | Result panel 630 | + + + + + +-------+ + + | | 2022-06-22 | [facility] | 8.6 | (missing) | (missing) | | (unavailable | 05:18 | [facility] | | | + + + +-------+ + + + + | Result panel 631 | + + + + + +--------+ + + | | 2022-06-22 | [facility] | 26.0 | (missing) | (missing) | | (unavailable | 05:18 [facility] | | | + + + +--------+ + + + + | Result panel 632 | + + + + + +--------+ + + | | 2022-06-22 | [facility] | 92.3 | (missing) | (missing) | | (unavailable | 05:18 | [facility] | | | + + + +--------+ + + + + | Result panel 633 | + + + + + +--------+ + + | | 2022-06-22 | [facility] | 30.5 | (missing) | (missing) | | (unavailable | 05:18 [facility] | | | + + + +--------+ + + + + | Result panel 634 | + + + + + +--------+ + + | | 2022-06-22 | [facility] | 33.0 | (missing) | (missing) | | (unavailable | 05:18 | [facility] | | | + + + +--------+ + + + + | Result panel 635 | + + + + + +--------+ + + | | 2022-06-22 | [facility] | 15.0 | (missing) | (missing) | | (unavailable | 05:18 | [facility] | | | + + + +--------+ + + + + | Result panel 636 | + + + + + +-------+ + + | | 2022-06-22 | [facility] | 338 | (missing) | (missing) | | (unavailable | 05:18 | [facility] | | | + + + +-------+ + + + + | Result panel 637 | + + + + + +--------+ + + | | 2022-06-22 | [facility] | 65.7 | (missing) | (missing) | | (unavailable | 05:18 | [facility] | | | + + + +--------+ + + + + | Result panel 638 | + + + + + +--------+ + + | | 2022-06-22 | [facility] | 23.7 | (missing) | (missing) | | (unavailable | 05:18 [facility] | | | + + + +--------+ + + + + | Result panel 639 | + + + + + +-------+ + + | | 2022-06-22 | [facility] | 7.9 | (missing) | (missing) | | (unavailable | 05:18 | [facility] | | | + + + +-------+ + + + + | Result panel 640 | + + + + + +-------+ + + | | 2022-06-22 | [facility] | 2.2 | (missing) | (missing) | | (unavailable | 05:18 | [facility] | | | + + + +-------+ + + + + | Result panel 641 | + + + + + +-------+ + + | | 2022-06-22 | [facility] | 0.5 | (missing) | (missing) | | (unavailable | 05:18 | [facility] | | | + + + +-------+ + + + + | Result panel 642 | + + + + + +-------+---------+ + | | 2022-06-22 | [facility] | 177 | mg/dL | (missing) | | (unavailable | 05:18 | [facility] | | | + + + +-------+---------+ + + + | Result panel 643 | + + + + + +------+---------+ + | | 2022-06-22 | [facility] | 29 | mg/dL | (missing) | | (unavailable | 05:18 | [facility] | | | + + + +------+---------+ + + + | Result panel 644 | + + + + + +--------+---------+ + | | 2022-06-22 | [facility] | 1.54 | mg/dL | (missing) | | (unavailable | 05:18 [facility] | | | + + + +--------+---------+ + + + | Result panel 645 | + + + + + +------+ + + | | 2022-06-22 | [facility] | 48 | (missing) | (missing) | | (unavailable | 05:18 | [facility] | | | + + + +------+ + + + + | Result panel 646 | + + + + + +---------+ + + | | 2022-06-22 | [facility] | 18.83 | (missing) | (missing) | | (unavailable | 05:18 | [facility] | | | + + + +---------+ + + + + | Result panel 647 | + + + + + +-------+ + + | | 2022-06-22 | [facility] | 141 | (missing) | (missing) | | (unavailable | 05:18 | [facility] | | | + + + +-------+ + + + + | Result panel 648 | + + + + + +-------+ + + | | 2022-06-22 | [facility] | 4.6 | (missing) | (missing) | | (unavailable | 05:18 [facility] | | | + + + +-------+ + + + + | Result panel 649 | + + + + + +-------+ + + | | 2022-06-22 | [facility] | 110 | (missing) | (missing) | | (unavailable | 05:18 | [facility] | | | + + + +-------+ + + + + | Result panel 650 | + + + + + +------+ + + | | 2022-06-22 | [facility] | 21 | (missing) | (missing) | | (unavailable | 05:18 [facility] | | | + + + +------+ + + + + | Result panel 651 | + + + + + +--------+ + + | | 2022-06-22 | [facility] | 14.6 | (missing) | (missing) | | (unavailable | 05:18 [facility] | | | + + + +--------+ + + + + | Result panel 652 | + + + + + +-------+---------+ + | | 2022-06-22 | [facility] | 8.2 | mg/dL | (missing) | | (unavailable | 05:18 [facility] | | | + + + +-------+---------+ + + + | Result panel 653 | + + + + + +-------+---------+ + | | 2022-06-22 | [facility] | 2.8 | mg/dL | (missing) | | (unavailable | 05:18 [facility] | | | + + + +-------+---------+ + + + | Result panel 654 | + + + + + +-------+ + + | | 2022-06-22 | [facility] | 6.4 | (missing) | (missing) | | (unavailable | 05:18 [facility] | | | + + + +-------+ + + + + | Result panel 655 | + + + + + +-------+ + + | | 2022-06-22 | [facility] | 3.0 | (missing) | (missing) | | (unavailable | 05:18 [facility] | | | + + + +-------+ + + + + | Result panel 656 | + + + + + +-------+ + + | | 2022-06-22 | [facility] | 3.4 | (missing) | (missing) | | (unavailable | 05:18 [facility] | | | + + + +-------+ + + + + | Result panel 657 | + + + + + +--------+ + + | | 2022-06-22 | [facility] | 0.88 | (missing) | (missing) | | (unavailable | 05:18 [facility] | | | + + + +--------+ + + + + | Result panel 658 | + + + + + +-------+ + + | | 2022-06-22 | [facility] | 0.2 | (missing) | (missing) | | (unavailable | 05:18 [facility] | | | + + + +-------+ + + + + | Result panel 659 | + + + + + +------+ + + | | 2022-06-22 | [facility] | 30 | (missing) | (missing) | | (unavailable | 05:18 [facility] | | | + + + +------+ + + + + | Result panel 660 | + + + + + +------+ + + | | 2022-06-22 | [facility] | 42 | (missing) | (missing) | | (unavailable | 05:18 [facility] | | | + + + +------+ + + + + | Result panel 661 | + + + + + +-------+ + + | | 2022-06-22 | [facility] | 147 | (missing) | (missing) | | (unavailable | 05:18 [facility] | | | + + + +-------+ + + + + | Result panel 662 | + + + + + +--------+ + + | | 2022-06-22 | [facility] | 10.8 | (missing) | (missing) | | (unavailable | 05:18 [facility] | | | + + + +--------+ + + + + | Result panel 663 | + + + + + +-------+ + + | | 2022-06-22 | [facility] | 227 | (missing) | (missing) | | (unavailable | 07:26 | [facility] | | | + + + +-------+ + + + + | Result panel 664 | + + + + + +-------+ + + | | 2022-06-22 | [facility] | 227 | (missing) | (missing) | | (unavailable | 07:26 | [facility] | | | + + + +-------+ + + + + | Result panel 665 | + + + + + +-------+ + + | | 2022-06-22 | [facility] | 227 | (missing) | (missing) | | (unavailable | 07:26 | [facility] | | | + + + +-------+ + + + + | Result panel 666 | + + + + + + + + + | | 2022-07-03 | [facility] | NEGATIVE | (missing) | (missing) | | (unavailable | 06:05 | [facility] | | | + + + + + + + + + | Result panel 667 | + + + + + + + + + | | 2022-07-03 | [facility] | NEGATIVE | (missing) | (missing) | | (unavailable | 06:05 | [facility] | | | + + + + + + + + + | Result panel 668 | + + + + + + + + + | | 2022-07-03 | [facility] | NEGATIVE | (missing) | (missing) | | (unavailable | 06:05 | [facility] | | | + + + + + + + + + | Result panel 669 | + + + + + + + + + | | 2022-07-03 | [facility] | NEGATIVE | (missing) | (missing) | | (unavailable | 06:05 | [facility] | | | + + + + + + + + + | Result panel 670 | + + + + + + + + + | | 2022-07-03 | [facility] | NEGATIVE | (missing) | (missing) | | (unavailable | 06:05 | [facility] | | | + + + + + + + + + | Result panel 671 | + + + + + + + + + | | 2022-07-03 | [facility] | NEGATIVE | (missing) | (missing) | | (unavailable | 06:05 | [facility] | | | + + + + + + + + + | Result panel 672 | + + + + + + + + + | | 2022-07-03 | [facility] | NEGATIVE | (missing) | (missing) | | (unavailable | 06:05 | [facility] | | | + + + + + + + + + | Result panel 673 | + + + + + + + + + | | 2022-07-03 | [facility] | NEGATIVE | (missing) | (missing) | | (unavailable | 06:05 | [facility] | | | + + + + + + + + + | Result panel 674 | + + + + + + + + + | | 2022-07-03 | [facility] | NEGATIVE | (missing) | (missing) | | (unavailable | 06:05 | [facility] | | | + + + + + + + + + | Result panel 675 | + + + + + + + + + | | 2022-07-03 | [facility] | NEGATIVE | (missing) | (missing) | | (unavailable | 06:05 | [facility] | | | + + + + + + + + + | Result panel 676 | + + + + + + + + + | | 2022-07-03 | [facility] | NEGATIVE | (missing) | (missing) | | (unavailable | 06:05 | [facility] | | | + + + + + + + + + | Result panel 677 | + + + + + + + + + | | 2022-07-03 | [facility] | NEGATIVE | (missing) | (missing) | | (unavailable | 06:05 | [facility] | | | + + + + + + + + + | Result panel 678 | + + + + + +-------+ + + | | 2022-07-03 | [facility] | 6.3 | (missing) | (missing) | | (unavailable | 06:12 | [facility] | | | + + + +-------+ + + + + | Result panel 679 | + + + + + +--------+ + + | | 2022-07-03 | [facility] | 3.51 | (missing) | (missing) | | (unavailable | 06:12 | [facility] | | | + + + +--------+ + + + + | Result panel 680 | + + + + + +--------+ + + | | 2022-07-03 | [facility] | 10.4 | (missing) | (missing) | | (unavailable | 06:12 [facility] | | | + + + +--------+ + + + + | Result panel 681 | + + + + + +--------+ + + | | 2022-07-03 | [facility] | 32.9 | (missing) | (missing) | | (unavailable | 06:12 [facility] | | | + + + +--------+ + + + + | Result panel 682 | + + + + + +--------+ + + | | 2022-07-03 | [facility] | 93.7 | (missing) | (missing) | | (unavailable | 06:12 [facility] | | | + + + +--------+ + + + + | Result panel 683 | + + + + + +--------+ + + | | 2022-07-03 | [facility] | 29.7 | (missing) | (missing) | | (unavailable | 06:12 | [facility] | | | + + + +--------+ + + + + | Result panel 684 | + + + + + +--------+ + + | | 2022-07-03 | [facility] | 31.7 | (missing) | (missing) | | (unavailable | 06:12 | [facility] | | | + + + +--------+ + + + + | Result panel 685 | + + + + + +--------+ + + | | 2022-07-03 | [facility] | 15.1 | (missing) | (missing) | | (unavailable | 06:12 | [facility] | | | + + + +--------+ + + + + | Result panel 686 | + + + + + +-------+ + + | | 2022-07-03 | [facility] | 396 | (missing) | (missing) | | (unavailable | 06:12 | [facility] | | | + + + +-------+ + + + + | Result panel 687 | + + + + + +--------+ + + | | 2022-07-03 | [facility] | 47.2 | (missing) | (missing) | | (unavailable | 06:12 [facility] | | | + + + +--------+ + + + + | Result panel 688 | + + + + + +--------+ + + | | 2022-07-03 | [facility] | 41.8 | (missing) | (missing) | | (unavailable | 06:12 | [facility] | | | | + + + +--------+ + + + + | Result panel 689 | + + + + + +-------+ + + | | 2022-07-03 | [facility] | 7.6 | (missing) | (missing) | | (unavailable | 06:12 | [facility] | | | | + + + +-------+ + + + + | Result panel 690 | + + + + + +-------+ + + | | 2022-07-03 | [facility] | 2.8 | (missing) | (missing) | | (unavailable | 06:12 | [facility] | | | | + + + +-------+ + + + + | Result panel 691 | + + + + + +-------+ + + | | 2022-07-03 | [facility] | 0.6 | (missing) | (missing) | | (unavailable | 06:12 | [facility] | | | | + + + +-------+ + + + + | Result panel 692 | + + + + + +-------+---------+ + | | 2022-07-03 | [facility] | 392 | mg/dL | (missing) | | (unavailable | 06:12 | [facility] | | | | + + + +-------+---------+ + + + | Result panel 693 | + + + + + +------+---------+ + | | 2022-07-03 | [facility] | 28 | mg/dL | (missing) | | (unavailable | 06:12 | [facility] | | | | + + + +------+---------+ + + + | Result panel 694 | + + + + + +--------+---------+ + | | 2022-07-03 | [facility] | 1.58 | mg/dL | (missing) | | (unavailable | 06:12 | [facility] | | | | + + + +--------+---------+ + + + | Result panel 695 | + + + + + +------+ + + | | 2022-07-03 | [facility] | 47 | (missing) | (missing) | | (unavailable | 06:12 | [facility] | | | | + + + +------+ + + + + | Result panel 696 | + + + + + +---------+ + + | | 2022-07-03 | [facility] | 17.72 | (missing) | (missing) | | (unavailable | 06:12 | [facility] | | | | + + + +---------+ + + + + | Result panel 697 | + + + + + +-------+ + + | | 2022-07-03 | [facility] | 135 | (missing) | (missing) | | (unavailable | 06:12 | [facility] | | | | + + + +-------+ + + + + | Result panel 698 | + + + + + +-------+ + + | | 2022-07-03 | [facility] | 4.8 | (missing) | (missing) | | (unavailable | 06:12 | [facility] | | | | + + + +-------+ + + + + | Result panel 699 | + + + + + +-------+ + + | | 2022-07-03 | [facility] | 104 | (missing) | (missing) | | (unavailable | 06:12 | [facility] | | | | + + + +-------+ + + + + | Result panel 700 | + + + + + +------+ + + | | 2022-07-03 | [facility] | 19 | (missing) | (missing) | | (unavailable | 06:12 | [facility] | | | | + + + +------+ + + + + | Result panel 701 | + + + + + +--------+ + + | | 2022-07-03 | [facility] | 16.8 | (missing) | (missing) | | (unavailable | 06:12 | [facility] | | | | + + + +--------+ + + + + | Result panel 702 | + + + + + +-------+---------+ + | | 2022-07-03 | [facility] | 9.0 | mg/dL | (missing) | | (unavailable | 06:12 | [facility] | | | | + + + +-------+---------+ + + + | Result panel 703 | + + + + + +-------+ + + | | 2022-07-03 | [facility] | 7.7 | (missing) | (missing) | | (unavailable | 06:12 | [facility] | | | | + + + +-------+ + + + + | Result panel 704 | + + + + + +-------+ + + | | 2022-07-03 | [facility] | 3.5 | (missing) | (missing) | | (unavailable | 06:12 | [facility] | | | | + + + +-------+ + + + + | Result panel 705 | + + + + + +-------+ + + | | 2022-07-03 | [facility] | 4.2 | (missing) | (missing) | | (unavailable | 06:12 | [facility] | | | | + + + +-------+ + + + + | Result panel 706 | + + + + + +--------+ + + | | 2022-07-03 | [facility] | 0.83 | (missing) | (missing) | | (unavailable | 06:12 | [facility] | | | | + + + +--------+ + + + + | Result panel 707 | + + + + + +-------+ + + | | 2022-07-03 | [facility] | 0.2 | (missing) | (missing) | | (unavailable | 06:12 | [facility] | | | + + + +-------+ + + + + | Result panel 708 | + + + + + +------+ + + | | 2022-07-03 | [facility] | 33 | (missing) | (missing) | | (unavailable | 06:12 | [facility] | | | + + + +------+ + + + + | Result panel 709 | + + + + + +------+ + + | | 2022-07-03 | [facility] | 50 | (missing) | (missing) | | (unavailable | 06:12 | [facility] | | | + + + +------+ + + + + | Result panel 710 | + + + + + +-------+ + + | | 2022-07-03 | [facility] | 184 | (missing) | (missing) | | (unavailable | 06:12 | [facility] | | | + + + +-------+ + + + + | Result panel 711 | + + + + + +-------+ + + | | 2022-07-03 | [facility] | 181 | (missing) | (missing) | | (unavailable | 06:12 | [facility] | | | + + + +-------+ + + + + | Result panel 712 | + + + + + +-------+ + + | | 2022-07-03 | [facility] | 6.3 | (missing) | (missing) | | (unavailable | 06:12 | [facility] | | | + + + +-------+ + + + + | Result panel 713 | + + + + + +--------+ + + | | 2022-07-03 | [facility] | 3.51 | (missing) | (missing) | | (unavailable | 06:12 | [facility] | | | + + + +--------+ + + + + | Result panel 714 | + + + + + +--------+ + + | | 2022-07-03 | [facility] | 10.4 | (missing) | (missing) | | (unavailable | 06:12 | [facility] | | | + + + +--------+ + + + + | Result panel 715 | + + + + + +--------+ + + | | 2022-07-03 | [facility] | 32.9 | (missing) | (missing) | | (unavailable | 06:12 | [facility] | | | + + + +--------+ + + + + | Result panel 716 | + + + + + +--------+ + + | | 2022-07-03 | [facility] | 93.7 | (missing) | (missing) | | (unavailable | 06:12 | [facility] | | | + + + +--------+ + + + + | Result panel 717 | + + + + + +--------+ + + | | 2022-07-03 | [facility] | 29.7 | (missing) | (missing) | | (unavailable | 06:12 | [facility] | | | + + + +--------+ + + + + | Result panel 718 | + + + + + +--------+ + + | | 2022-07-03 | [facility] | 31.7 | (missing) | (missing) | | (unavailable | 06:12 | [facility] | | | + + + +--------+ + + + + | Result panel 719 | + + + + + +--------+ + + | | 2022-07-03 | [facility] | 15.1 | (missing) | (missing) | | (unavailable | 06:12 | [facility] | | | + + + +--------+ + + + + | Result panel 720 | + + + + + +-------+ + + | | 2022-07-03 | [facility] | 396 | (missing) | (missing) | | (unavailable | 06:12 | [facility] | | | + + + +-------+ + + + + | Result panel 721 | + + + + + +--------+ + + | | 2022-07-03 | [facility] | 47.2 | (missing) | (missing) | | (unavailable | 06:12 | [facility] | | | + + + +--------+ + + + + | Result panel 722 | + + + + + +--------+ + + | | 2022-07-03 | [facility] | 41.8 | (missing) | (missing) | | (unavailable | 06:12 | [facility] | | | + + + +--------+ + + + + | Result panel 723 | + + + + + +-------+ + + | | 2022-07-03 | [facility] | 7.6 | (missing) | (missing) | | (unavailable | 06:12 | [facility] | | | + + + +-------+ + + + + | Result panel 724 | + + + + + +-------+ + + | | 2022-07-03 | [facility] | 2.8 | (missing) | (missing) | | (unavailable | 06:12 | [facility] | | | + + + +-------+ + + + + | Result panel 725 | + + + + + +-------+ + + | | 2022-07-03 | [facility] | 0.6 | (missing) | (missing) | | (unavailable | 06:12 | [facility] | | | + + + +-------+ + + + + | Result panel 726 | + + + + + +-------+---------+ + | | 2022-07-03 | [facility] | 392 | mg/dL | (missing) | | (unavailable | 06:12 | [facility] | | | + + + +-------+---------+ + + + | Result panel 727 | + + + + + +------+---------+ + | | 2022-07-03 | [facility] | 28 | mg/dL | (missing) | | (unavailable | 06:12 | [facility] | | | + + + +------+---------+ + + + | Result panel 728 | + + + + + +--------+---------+ + | | 2022-07-03 | [facility] | 1.58 | mg/dL | (missing) | | (unavailable | 06:12 | [facility] | | | + + + +--------+---------+ + + + | Result panel 729 | + + + + + +------+ + + | | 2022-07-03 | [facility] | 47 | (missing) | (missing) | | (unavailable | 06:12 | [facility] | | | + + + +------+ + + + + | Result panel 730 | + + + + + +---------+ + + | | 2022-07-03 | [facility] | 17.72 | (missing) | (missing) | | (unavailable | 06:12 | [facility] | | | + + + +---------+ + + + + | Result panel 731 | + + + + + +-------+ + + | | 2022-07-03 | [facility] | 135 | (missing) | (missing) | | (unavailable | 06:12 | [facility] | | | + + + +-------+ + + + + | Result panel 732 | + + + + + +-------+ + + | | 2022-07-03 | [facility] | 4.8 | (missing) | (missing) | | (unavailable | 06:12 | [facility] | | | + + + +-------+ + + + + | Result panel 733 | + + + + + +-------+ + + | | 2022-07-03 | [facility] | 104 | (missing) | (missing) | | (unavailable | 06:12 | [facility] | | | + + + +-------+ + + + + | Result panel 734 | + + + + + +------+ + + | | 2022-07-03 | [facility] | 19 | (missing) | (missing) | | (unavailable | 06:12 | [facility] | | | + + + +------+ + + + + | Result panel 735 | + + + + + +--------+ + + | | 2022-07-03 | [facility] | 16.8 | (missing) | (missing) | | (unavailable | 06:12 | [facility] | | | + + + +--------+ + + + + | Result panel 736 | + + + + + +-------+---------+ + | | 2022-07-03 | [facility] | 9.0 | mg/dL | (missing) | | (unavailable | 06:12 | [facility] | | | + + + +-------+---------+ + + + | Result panel 737 | + + + + + +-------+ + + | | 2022-07-03 | [facility] | 7.7 | (missing) | (missing) | | (unavailable | 06:12 | [facility] | | | + + + +-------+ + + + + | Result panel 738 | + + + + + +-------+ + + | | 2022-07-03 | [facility] | 3.5 | (missing) | (missing) | | (unavailable | 06:12 | [facility] | | | + + + +-------+ + + + + | Result panel 739 | + + + + + +-------+ + + | | 2022-07-03 | [facility] | 4.2 | (missing) | (missing) | | (unavailable | 06:12 | [facility] | | | + + + +-------+ + + + + | Result panel 740 | + + + + + +--------+ + + | | 2022-07-03 | [facility] | 0.83 | (missing) | (missing) | | (unavailable | 06:12 | [facility] | | | + + + +--------+ + + + + | Result panel 741 | + + + + + +-------+ + + | | 2022-07-03 | [facility] | 0.2 | (missing) | (missing) | | (unavailable | 06:12 | [facility] | | | + + + +-------+ + + + + | Result panel 742 | + + + + + +------+ + + | | 2022-07-03 | [facility] | 33 | (missing) | (missing) | | (unavailable | 06:12 | [facility] | | | + + + +------+ + + + + | Result panel 743 | + + + + + +------+ + + | | 2022-07-03 | [facility] | 50 | (missing) | (missing) | | (unavailable | 06:12 | [facility] | | | + + + +------+ + + + + | Result panel 744 | + + + + + +-------+ + + | | 2022-07-03 | [facility] | 184 | (missing) | (missing) | | (unavailable | 06:12 | [facility] | | | + + + +-------+ + + + + | Result panel 745 | + + + + + +-------+ + + | | 2022-07-03 | [facility] | 181 | (missing) | (missing) | | (unavailable | 06:12 | [facility] | | | + + + +-------+ + + + + | Result panel 746 | + + + + + + + + + | | 2022-07-03 | [facility] | YELLOW | (missing) | (missing) | | (unavailable | 06:30 | [facility] | | | + + + + + + + + + | Result panel 747 | + + + + + +---------+ + + | | 2022-07-03 | [facility] | CLEAR | (missing) | (missing) | | (unavailable | 06:30 | [facility] | | | + + + +---------+ + + + + | Result panel 748 | + + + + + + + + + | | 2022-07-03 | [facility] | >=1000 | (missing) | (missing) | | (unavailable | 06:30 | [facility] | | | + + + + + + + + + | Result panel 749 | + + + + + + + + + | | 2022-07-03 | [facility] | NEGATIVE | (missing) | (missing) | | (unavailable | 06:30 | [facility] | | | + + + + + + + + + | Result panel 750 | + + + + + + + + + | | 2022-07-03 | [facility] | NEGATIVE | (missing) | (missing) | | (unavailable | 06:30 | [facility] | | | + + + + + + + + + | Result panel 751 | + + + + + +---------+ + + | | 2022-07-03 | [facility] | 1.015 | (missing) | (missing) | | (unavailable | 06:30 | [facility] | | | + + + +---------+ + + + + | Result panel 752 | + + + + + + + + + | | 2022-07-03 | [facility] | TRACE-I | (missing) | (missing) | | (unavailable | 06:30 | [facility] | | | + + + + + + + + + | Result panel 753 | + + + + + +-------+ + + | | 2022-07-03 | [facility] | 6.0 | (missing) | (missing) | | (unavailable | 06:30 | [facility] | | | + + + +-------+ + + + + | Result panel 754 | + + + + + +------+ + + | | 2022-07-03 | [facility] | 30 | (missing) | (missing) | | (unavailable | 06:30 | [facility] | | | + + + +------+ + + + + | Result panel 755 | + + + + + + + + + | | 2022-07-03 | [facility] | NORMAL | (missing) | (missing) | | (unavailable | 06:30 | [facility] | | | + + + + + + + + + | Result panel 756 | + + + + + + + + + | | 2022-07-03 | [facility] | NEGATIVE | (missing) | (missing) | | (unavailable | 06:30 | [facility] | | | + + + + + + + + + | Result panel 757 | + + + + + + + + + | | 2022-07-03 | [facility] | NEGATIVE | (missing) | (missing) | | (unavailable | 06:30 | [facility] | | | + + + + + + + + + | Result panel 758 | + + + + + +-------+ + + | | 2022-07-03 | [facility] | 4-6 | (missing) | (missing) | | (unavailable | 06:30 | [facility] | | | + + + +-------+ + + + + | Result panel 759 | + + + + + +-------+ + + | | 2022-07-03 | [facility] | 0-1 | (missing) | (missing) | | (unavailable | 06:30 | [facility] | | | + + + +-------+ + + + + | Result panel 760 | + + + + + + + + + | | 2022-07-03 | [facility] | SQUAMOUS 1+ | (missing) | (missing) | | (unavailable | 06:30 | [facility] | | | + + + + + + + + + | Result panel 761 | + + + + + + + + + | | 2022-07-03 | [facility] | NONE SEEN | (missing) | (missing) | | (unavailable | 06:30 | [facility] | | | + + + + + + + + + | Result panel 762 | + + + + + + + + + | | 2022-07-03 | [facility] | NONE SEEN | (missing) | (missing) | | (unavailable | 06:30 | [facility] | | | + + + + + + + + + | Result panel 763 | + + + + + + + + + | | 2022-07-03 | [facility] | NONE SEEN | (missing) | (missing) | | (unavailable | 06:30 | [facility] | | | + + + + + + + + + | Result panel 764 | + + + + + +------+ + + | | 2022-07-03 | [facility] | No | (missing) | (missing) | | (unavailable | 06:30 | [facility] | | | + + + +------+ + + + + | Result panel 765 | + + + + + + + + + | | 2022-07-03 | [facility] | CLEAN CATCH | (missing) | (missing) | | (unavailable | 06:30 | [facility] | | | | + + + + + + + + + | Result panel 766 | + + + + + + + + + | | 2022-07-03 | [facility] | NEGATIVE | (missing) | (missing) | | (unavailable | 06:30 | [facility] | | | | + + + + + + + + + | Result panel 767 | + + + + + + + + + | | 2022-07-03 | [facility] | YELLOW | (missing) | (missing) | | (unavailable | 06:30 | [facility] | | | | + + + + + + + + + | Result panel 768 | + + + + + +---------+ + + | | 2022-07-03 | [facility] | CLEAR | (missing) | (missing) | | (unavailable | 06:30 | [facility] | | | | + + + +---------+ + + + + | Result panel 769 | + + + + + + + + + | | 2022-07-03 | [facility] | >=1000 | (missing) | (missing) | | (unavailable | 06:30 | [facility] | | | + + + + + + + + + | Result panel 770 | + + + + + + + + + | | 2022-07-03 | [facility] | NEGATIVE | (missing) | (missing) | | (unavailable | 06:30 | [facility] | | | | + + + + + + + + + | Result panel 771 | + + + + + + + + + | | 2022-07-03 | [facility] | NEGATIVE | (missing) | (missing) | | (unavailable | 06:30 | [facility] | | | | + + + + + + + + + | Result panel 772 | + + + + + +---------+ + + | | 2022-07-03 | [facility] | 1.015 | (missing) | (missing) | | (unavailable | 06:30 | [facility] | | | | + + + +---------+ + + + + | Result panel 773 | + + + + + + + + + | | 2022-07-03 | [facility] | TRACE-I | (missing) | (missing) | | (unavailable | 06:30 | [facility] | | | + + + + + + + + + | Result panel 774 | + + + + + +-------+ + + | | 2022-07-03 | [facility] | 6.0 | (missing) | (missing) | | (unavailable | 06:30 | [facility] | | | + + + +-------+ + + + + | Result panel 775 | + + + + + +------+ + + | | 2022-07-03 | [facility] | 30 | (missing) | (missing) | | (unavailable | 06:30 | [facility] | | | + + + +------+ + + + + | Result panel 776 | + + + + + + + + + | | 2022-07-03 | [facility] | NORMAL | (missing) | (missing) | | (unavailable | 06:30 | [facility] | | | | + + + + + + + + + | Result panel 777 | + + + + + + + + + | | 2022-07-03 | [facility] | NEGATIVE | (missing) | (missing) | | (unavailable | 06:30 | [facility] | | | + + + + + + + + + | Result panel 778 | + + + + + + + + + | | 2022-07-03 | [facility] | NEGATIVE | (missing) | (missing) | | (unavailable | 06:30 | [facility] | | | + + + + + + + + + | Result panel 779 | + + + + + +-------+ + + | | 2022-07-03 | [facility] | 4-6 | (missing) | (missing) | | (unavailable | 06:30 | [facility] | | | + + + +-------+ + + + + | Result panel 780 | + + + + + +-------+ + + | | 2022-07-03 | [facility] | 0-1 | (missing) | (missing) | | (unavailable | 06:30 | [facility] | | | + + + +-------+ + + + + | Result panel 781 | + + + + + + + + + | | 2022-07-03 | [facility] | SQUAMOUS 1+ | (missing) | (missing) | | (unavailable | 06:30 | [facility] | | | | + + + + + + + + + | Result panel 782 | + + + + + + + + + | | 2022-07-03 | [facility] | NONE SEEN | (missing) | (missing) | | (unavailable | 06:30 | [facility] | | | + + + + + + + + + | Result panel 783 | + + + + + + + + + | | 2022-07-03 | [facility] | NONE SEEN | (missing) | (missing) | | (unavailable | 06:30 | [facility] | | | + + + + + + + + + | Result panel 784 | + + + + + + + + + | | 2022-07-03 | [facility] | NONE SEEN | (missing) | (missing) | | (unavailable | 06:30 | [facility] | | | + + + + + + + + + | Result panel 785 | + + + + + +------+ + + | | 2022-07-03 | [facility] | No | (missing) | (missing) | | (unavailable | 06:30 | [facility] | | | + + + +------+ + + + + | Result panel 786 | + + + + + + + + + | | 2022-07-03 | [facility] | CLEAN CATCH | (missing) | (missing) | | (unavailable | 06:30 | [facility] | | | | + + + + + + + + + | Result panel 787 | + + + + + + + + + | | 2022-07-03 | [facility] | NEGATIVE | (missing) | (missing) | | (unavailable | 06:30 | [facility] | | | + + + + + + + + + | Result panel 788 | + + + + + +------+ + + | | 2022-07-27 | [facility] | No | (missing) | (missing) | | (unavailable | 01:45 | [facility] | | | + + + +------+ + + + + | Result panel 789 | + + + + + + + + + | | 2022-07-27 | [facility] | NEGATIVE | (missing) | (missing) | | (unavailable | 01:45 | [facility] | | | + + + + + + + + + | Result panel 790 | + + + + + +------+ + + | | 2022-07-27 | [facility] | No | (missing) | (missing) | | (unavailable | 01:45 | [facility] | | | + + + +------+ + + + + | Result panel 791 | + + + + + + + + + | | 2022-07-27 | [facility] | NEGATIVE | (missing) | (missing) | | (unavailable | 01:45 | [facility] | | | | + + + + + + + + + | Result panel 792 | + + + + + +------+ + + | | 2022-07-27 | [facility] | No | (missing) | (missing) | | (unavailable | 01:45 | [facility] | | | + + + +------+ + + + + | Result panel 793 | + + + + + + + + + | | 2022-07-27 | [facility] | NEGATIVE | (missing) | (missing) | | (unavailable | 01:45 | [facility] | | | + + + + + + + + + | Result panel 794 | + + + + + +------+ + + | | 2022-07-27 | [facility] | No | (missing) | (missing) | | (unavailable | 01:45:08 | [facility] | | | | + + + +------+ + + + + | Result panel 795 | + + + + + +-------+ + + | | 2022-07-27 | [facility] | 279 | (missing) | (missing) | | (unavailable | 02:25 | [facility] | | | | + + + +-------+ + + + + | Result panel 796 | + + + + + +-------+ + + | | 2022-07-29 | [facility] | 8.3 | (missing) | (missing) | | (unavailable | 09:00 | [facility] | | | | + + + +-------+ + + + + | Result panel 797 | + + + + + +--------+ + + | | 2022-07-29 | [facility] | 3.51 | (missing) | (missing) | | (unavailable | 09:00 | [facility] | | | | + + + +--------+ + + + + | Result panel 798 | + + + + + +--------+ + + | | 2022-07-29 | [facility] | 10.7 | (missing) | (missing) | | (unavailable | 09:00 | [facility] | | | | + + + +--------+ + + + + | Result panel 799 | + + + + + +--------+ + + | | 2022-07-29 | [facility] | 32.7 | (missing) | (missing) | | (unavailable | 09:00 | [facility] | | | + + + +--------+ + + + + | Result panel 800 | + + + + + +--------+ + + | | 2022-07-29 | [facility] | 93.2 | (missing) | (missing) | | (unavailable | 09:00 | [facility] | | | + + + +--------+ + + + + | Result panel 801 | + + + + + +--------+ + + | | 2022-07-29 | [facility] | 30.5 | (missing) | (missing) | | (unavailable | 09:00 | [facility] | | | + + + +--------+ + + + + | Result panel 802 | + + + + + +--------+ + + | | 2022-07-29 | [facility] | 32.7 | (missing) | (missing) | | (unavailable | 09:00 | [facility] | | | + + + +--------+ + + + + | Result panel 803 | + + + + + +--------+ + + | | 2022-07-29 | [facility] | 14.2 | (missing) | (missing) | | (unavailable | 09:00 | [facility] | | | + + + +--------+ + + + + | Result panel 804 | + + + + + +-------+ + + | | 2022-07-29 | [facility] | 418 | (missing) | (missing) | | (unavailable | 09:00 | [facility] | | | + + + +-------+ + + + + | Result panel 805 | + + + + + +--------+ + + | | 2022-07-29 | [facility] | 61.2 | (missing) | (missing) | | (unavailable | 09:00 | [facility] | | | | + + + +--------+ + + + + | Result panel 806 | + + + + + +--------+ + + | | 2022-07-29 | [facility] | 29.1 | (missing) | (missing) | | (unavailable | 09:00 | [facility] | | | | + + + +--------+ + + + + | Result panel 807 | + + + + + +-------+ + + | | 2022-07-29 | [facility] | 6.5 | (missing) | (missing) | | (unavailable | 09:00 | [facility] | | | + + + +-------+ + + + + | Result panel 808 | + + + + + +-------+ + + | | 2022-07-29 | [facility] | 1.9 | (missing) | (missing) | | (unavailable | 09:00 | [facility] | | | | + + + +-------+ + + + + | Result panel 809 | + + + + + +-------+ + + | | 2022-07-29 | [facility] | 1.3 | (missing) | (missing) | | (unavailable | 09:00 | [facility] | | | | + + + +-------+ + + + + | Result panel 810 | + + + + + +-------+---------+ + | | 2022-07-29 | [facility] | 338 | mg/dL | (missing) | | (unavailable | 09:00 | [facility] | | | | + + + +-------+---------+ + + + | Result panel 811 | + + + + + +------+---------+ + | | 2022-07-29 | [facility] | 29 | mg/dL | (missing) | | (unavailable | 09:00 | [facility] | | | | + + + +------+---------+ + + + | Result panel 812 | + + + + + +--------+---------+ + | | 2022-07-29 | [facility] | 1.98 | mg/dL | (missing) | | (unavailable | 09:00 | [facility] | | | | + + + +--------+---------+ + + + | Result panel 813 | + + + + + +------+ + + | | 2022-07-29 | [facility] | 36 | (missing) | (missing) | | (unavailable | 09:00 | [facility] | | | | + + + +------+ + + + + | Result panel 814 | + + + + + +---------+ + + | | 2022-07-29 | [facility] | 14.64 | (missing) | (missing) | | (unavailable | 09:00 | [facility] | | | | + + + +---------+ + + + + | Result panel 815 | + + + + + +-------+ + + | | 2022-07-29 | [facility] | 133 | (missing) | (missing) | | (unavailable | 09:00 | [facility] | | | | + + + +-------+ + + + + | Result panel 816 | + + + + + +-------+ + + | | 2022-07-29 | [facility] | 4.2 | (missing) | (missing) | | (unavailable | 09:00 | [facility] | | | | + + + +-------+ + + + + | Result panel 817 | + + + + + +-------+ + + | | 2022-07-29 | [facility] | 100 | (missing) | (missing) | | (unavailable | 09:00 | [facility] | | | | + + + +-------+ + + + + | Result panel 818 | + + + + + +------+ + + | | 2022-07-29 | [facility] | 20 | (missing) | (missing) | | (unavailable | 09:00 | [facility] | | | | + + + +------+ + + + + | Result panel 819 | + + + + + +--------+ + + | | 2022-07-29 | [facility] | 17.2 | (missing) | (missing) | | (unavailable | 09:00 | [facility] | | | | + + + +--------+ + + + + | Result panel 820 | + + + + + +-------+---------+ + | | 2022-07-29 | [facility] | 9.0 | mg/dL | (missing) | | (unavailable | 09:00 | [facility] | | | | + + + +-------+---------+ + + + | Result panel 821 | + + + + + +-------+ + + | | 2022-07-29 | [facility] | 8.3 | (missing) | (missing) | | (unavailable | 09:00 | [facility] | | | | + + + +-------+ + + + + | Result panel 822 | + + + + + +-------+ + + | | 2022-07-29 | [facility] | 3.6 | (missing) | (missing) | | (unavailable | 09:00 | [facility] | | | | + + + +-------+ + + + + | Result panel 823 | + + + + + +-------+ + + | | 2022-07-29 | [facility] | 4.7 | (missing) | (missing) | | (unavailable | 09:00 | [facility] | | | | + + + +-------+ + + + + | Result panel 824 | + + + + + +--------+ + + | | 2022-07-29 | [facility] | 0.77 | (missing) | (missing) | | (unavailable | 09:00 | [facility] | | | | + + + +--------+ + + + + | Result panel 825 | + + + + + +-------+ + + | | 2022-07-29 | [facility] | 0.3 | (missing) | (missing) | | (unavailable | 09:00 | [facility] | | | | + + + +-------+ + + + + | Result panel 826 | + + + + + +------+ + + | | 2022-07-29 | [facility] | 35 | (missing) | (missing) | | (unavailable | 09:00 | [facility] | | | | + + + +------+ + + + + | Result panel 827 | + + + + + +------+ + + | | 2022-07-29 | [facility] | 50 | (missing) | (missing) | | (unavailable | 09:00 | [facility] | | | | + + + +------+ + + + + | Result panel 828 | + + + + + +-------+ + + | | 2022-07-29 | [facility] | 212 | (missing) | (missing) | | (unavailable | 09:00 | [facility] | | | | + + + +-------+ + + + + | Result panel 829 | + + + + + +------+ + + | | 2022-07-29 | [facility] | 76 | (missing) | (missing) | | (unavailable | 09:00 | [facility] | | | | + + + +------+ + + + + | Result panel 830 | + + + + + + + + + | | 2022-07-29 | [facility] | NEGATIVE | (missing) | (missing) | | (unavailable | 09:00 | [facility] | | | | + + + + + + + + + | Result panel 831 | + + + + + + + + + | | 2022-07-29 | [facility] | YELLOW | (missing) | (missing) | | (unavailable | 09:30 | [facility] | | | + + + + + + + + + | Result panel 832 | + + + + + +---------+ + + | | 2022-07-29 | [facility] | CLEAR | (missing) | (missing) | | (unavailable | 09:30 | [facility] | | | | + + + +---------+ + + + + | Result panel 833 | + + + + + + + + + | | 2022-07-29 | [facility] | >=1000 | (missing) | (missing) | | (unavailable | 09:30 | [facility] | | | + + + + + + + + + | Result panel 834 | + + + + + + + + + | | 2022-07-29 | [facility] | NEGATIVE | (missing) | (missing) | | (unavailable | 09:30 | [facility] | | | + + + + + + + + + | Result panel 835 | + + + + + +---------+ + + | | 2022-07-29 | [facility] | TRACE | (missing) | (missing) | | (unavailable | 09:30 | [facility] | | | + + + +---------+ + + + + | Result panel 836 | + + + + + +---------+ + + | | 2022-07-29 | [facility] | 1.015 | (missing) | (missing) | | (unavailable | 09:30 | [facility] | | | + + + +---------+ + + + + | Result panel 837 | + + + + + + + + + | | 2022-07-29 | [facility] | TRACE-I | (missing) | (missing) | | (unavailable | 09:30 | [facility] | | | + + + + + + + + + | Result panel 838 | + + + + + +-------+ + + | | 2022-07-29 | [facility] | 6.0 | (missing) | (missing) | | (unavailable | 09:30 | [facility] | | | + + + +-------+ + + + + | Result panel 839 | + + + + + +------+ + + | | 2022-07-29 | [facility] | 30 | (missing) | (missing) | | (unavailable | 09:30 | [facility] | | | + + + +------+ + + + + | Result panel 840 | + + + + + + + + + | | 2022-07-29 | [facility] | NORMAL | (missing) | (missing) | | (unavailable | 09:30 | [facility] | | | + + + + + + + + + | Result panel 841 | + + + + + + + + + | | 2022-07-29 | [facility] | NEGATIVE | (missing) | (missing) | | (unavailable | 09:30 | [facility] | | | + + + + + + + + + | Result panel 842 | + + + + + + + + + | | 2022-07-29 | [facility] | NEGATIVE | (missing) | (missing) | | (unavailable | 09:30 | [facility] | | | + + + + + + + + + | Result panel 843 | + + + + + +-------+ + + | | 2022-07-29 | [facility] | 2-3 | (missing) | (missing) | | (unavailable | 09:30 | [facility] | | | + + + +-------+ + + + + | Result panel 844 | + + + + + +-------+ + + | | 2022-07-29 | [facility] | 0-1 | (missing) | (missing) | | (unavailable | 09:30 | [facility] | | | + + + +-------+ + + + + | Result panel 845 | + + + + + + + + + | | 2022-07-29 | [facility] | SQUAMOUS 1+ | (missing) | (missing) | | (unavailable | 09:30 | [facility] | | | + + + + + + + + + | Result panel 846 | + + + + + + + + + | | 2022-07-29 | [facility] | NONE SEEN | (missing) | (missing) | | (unavailable | 09:30 | [facility] | | | + + + + + + + + + | Result panel 847 | + + + + + + + + + | | 2022-07-29 | [facility] | NONE SEEN | (missing) | (missing) | | (unavailable | 09:30 | [facility] | | | + + + + + + + + + | Result panel 848 | + + + + + + + + + | | 2022-07-29 | [facility] | NONE SEEN | (missing) | (missing) | | (unavailable | 09:30 | [facility] | | | + + + + + + + + + | Result panel 849 | + + + + + + + + + | | 2022-07-29 | [facility] | CLEAN CATCH | (missing) | (missing) | | (unavailable | 09:30 | [facility] | | | + + + + + + + + + | Result panel 850 | + + + + + + + + + | | 2022-07-29 | [facility] | YELLOW | (missing) | (missing) | | (unavailable | 09:30 | [facility] | | | + + + + + + + + + | Result panel 851 | + + + + + +---------+ + + | | 2022-07-29 | [facility] | CLEAR | (missing) | (missing) | | (unavailable | 09:30 | [facility] | | | + + + +---------+ + + + + | Result panel 852 | + + + + + + + + + | | 2022-07-29 | [facility] | >=1000 | (missing) | (missing) | | (unavailable | 09:30 | [facility] | | | + + + + + + + + + | Result panel 853 | + + + + + + + + + | | 2022-07-29 | [facility] | NEGATIVE | (missing) | (missing) | | (unavailable | 09:30 | [facility] | | | + + + + + + + + + | Result panel 854 | + + + + + +---------+ + + | | 2022-07-29 | [facility] | TRACE | (missing) | (missing) | | (unavailable | 09:30 | [facility] | | | + + + +---------+ + + + + | Result panel 855 | + + + + + +---------+ + + | | 2022-07-29 | [facility] | 1.015 | (missing) | (missing) | | (unavailable | 09:30 | [facility] | | | + + + +---------+ + + + + | Result panel 856 | + + + + + + + + + | | 2022-07-29 | [facility] | TRACE-I | (missing) | (missing) | | (unavailable | 09:30 | [facility] | | | + + + + + + + + + | Result panel 857 | + + + + + +-------+ + + | | 2022-07-29 | [facility] | 6.0 | (missing) | (missing) | | (unavailable | 09:30 | [facility] | | | + + + +-------+ + + + + | Result panel 858 | + + + + + +------+ + + | | 2022-07-29 | [facility] | 30 | (missing) | (missing) | | (unavailable | 09:30 | [facility] | | | + + + +------+ + + + + | Result panel 859 | + + + + + + + + + | | 2022-07-29 | [facility] | NORMAL | (missing) | (missing) | | (unavailable | 09:30 | [facility] | | | + + + + + + + + + | Result panel 860 | + + + + + + + + + | | 2022-07-29 | [facility] | NEGATIVE | (missing) | (missing) | | (unavailable | 09:30 | [facility] | | | + + + + + + + + + | Result panel 861 | + + + + + + + + + | | 2022-07-29 | [facility] | NEGATIVE | (missing) | (missing) | | (unavailable | 09:30 | [facility] | | | + + + + + + + + + | Result panel 862 | + + + + + +-------+ + + | | 2022-07-29 | [facility] | 2-3 | (missing) | (missing) | | (unavailable | 09:30 | [facility] | | | + + + +-------+ + + + + | Result panel 863 | + + + + + +-------+ + + | | 2022-07-29 | [facility] | 0-1 | (missing) | (missing) | | (unavailable | 09:30 | [facility] | | | + + + +-------+ + + + + | Result panel 864 | + + + + + + + + + | | 2022-07-29 | [facility] | SQUAMOUS 1+ | (missing) | (missing) | | (unavailable | 09:30 | [facility] | | | + + + + + + + + + | Result panel 865 | + + + + + + + + + | | 2022-07-29 | [facility] | NONE SEEN | (missing) | (missing) | | (unavailable | 09:30 | [facility] | | | + + + + + + + + + | Result panel 866 | + + + + + + + + + | | 2022-07-29 | [facility] | NONE SEEN | (missing) | (missing) | | (unavailable | 09:30 | [facility] | | | + + + + + + + + + | Result panel 867 | + + + + + + + + + | | 2022-07-29 | [facility] | NONE SEEN | (missing) | (missing) | | (unavailable | 09:30 | [facility] | | | + + + + + + + + + | Result panel 868 | + + + + + + + + + | | 2022-07-29 | [facility] | CLEAN CATCH | (missing) | (missing) | | (unavailable | 09:30 | [facility] | | | + + + + + + + + + | Result panel 869 | + + + + + + + + + | | 2022-07-29 | [facility] | YELLOW | (missing) | (missing) | | (unavailable | 09:30 | [facility] | | | + + + + + + + + + | Result panel 870 | + + + + + +---------+ + + | | 2022-07-29 | [facility] | CLEAR | (missing) | (missing) | | (unavailable | 09:30 | [facility] | | | + + + +---------+ + + + + | Result panel 871 | + + + + + + + + + | | 2022-07-29 | [facility] | >=1000 | (missing) | (missing) | | (unavailable | 09:30 | [facility] | | | + + + + + + + + + | Result panel 872 | + + + + + + + + + | | 2022-07-29 | [facility] | NEGATIVE | (missing) | (missing) | | (unavailable | 09:30 | [facility] | | | + + + + + + + + + | Result panel 873 | + + + + + +---------+ + + | | 2022-07-29 | [facility] | TRACE | (missing) | (missing) | | (unavailable | 09:30 | [facility] | | | + + + +---------+ + + + + | Result panel 874 | + + + + + +---------+ + + | | 2022-07-29 | [facility] | 1.015 | (missing) | (missing) | | (unavailable | 09:30 | [facility] | | | + + + +---------+ + + + + | Result panel 875 | + + + + + + + + + | | 2022-07-29 | [facility] | TRACE-I | (missing) | (missing) | | (unavailable | 09:30 | [facility] | | | + + + + + + + + + | Result panel 876 | + + + + + +-------+ + + | | 2022-07-29 | [facility] | 6.0 | (missing) | (missing) | | (unavailable | 09:30 | [facility] | | | + + + +-------+ + + + + | Result panel 877 | + + + + + +------+ + + | | 2022-07-29 | [facility] | 30 | (missing) | (missing) | | (unavailable | 09:30 | [facility] | | | + + + +------+ + + + + | Result panel 878 | + + + + + + + + + | | 2022-07-29 | [facility] | NORMAL | (missing) | (missing) | | (unavailable | 09:30 | [facility] | | | + + + + + + + + + | Result panel 879 | + + + + + + + + + | | 2022-07-29 | [facility] | NEGATIVE | (missing) | (missing) | | (unavailable | 09:30 | [facility] | | | + + + + + + + + + | Result panel 880 | + + + + + + + + + | | 2022-07-29 | [facility] | NEGATIVE | (missing) | (missing) | | (unavailable | 09:30 | [facility] | | | + + + + + + + + + | Result panel 881 | + + + + + +-------+ + + | | 2022-07-29 | [facility] | 2-3 | (missing) | (missing) | | (unavailable | 09:30 | [facility] | | | + + + +-------+ + + + + | Result panel 882 | + + + + + +-------+ + + | | 2022-07-29 | [facility] | 0-1 | (missing) | (missing) | | (unavailable | 09:30 | [facility] | | | + + + +-------+ + + + + | Result panel 883 | + + + + + + + + + | | 2022-07-29 | [facility] | SQUAMOUS 1+ | (missing) | (missing) | | (unavailable | 09:30 | [facility] | | | + + + + + + + + + | Result panel 884 | + + + + + + + + + | | 2022-07-29 | [facility] | NONE SEEN | (missing) | (missing) | | (unavailable | 09:30 | [facility] | | | + + + + + + + + + | Result panel 885 | + + + + + + + + + | | 2022-07-29 | [facility] | NONE SEEN | (missing) | (missing) | | (unavailable | 09:30 | [facility] | | | + + + + + + + + + | Result panel 886 | + + + + + + + + + | | 2022-07-29 | [facility] | NONE SEEN | (missing) | (missing) | | (unavailable | 09:30 | [facility] | | | + + + + + + + + + | Result panel 887 | + + + + + + + + + | | 2022-07-29 | [facility] | CLEAN CATCH | (missing) | (missing) | | (unavailable | 09:30 | [facility] | | | + + + + + + + + + | Result panel 888 | + + + + + + + + + | | 2022-07-29 | [facility] | YELLOW | (missing) | (missing) | | (unavailable | 09:30:08 | [facility] | | | + + + + + + + + + | Result panel 889 | + + + + + +---------+ + + | | 2022-07-29 | [facility] | CLEAR | (missing) | (missing) | | (unavailable | 09:30:08 | [facility] | | | + + + +---------+ + + + + | Result panel 890 | + + + + + + + + + | | 2022-07-29 | [facility] | >=1000 | (missing) | (missing) | | (unavailable | 09:30:08 | [facility] | | | + + + + + + + + + | Result panel 891 | + + + + + + + + + | | 2022-07-29 | [facility] | NEGATIVE | (missing) | (missing) | | (unavailable | 09:30:08 | [facility] | | | | + + + + + + + + + | Result panel 892 | + + + + + +---------+ + + | | 2022-07-29 | [facility] | TRACE | (missing) | (missing) | | (unavailable | 09:30:08 | [facility] | | | + + + +---------+ + + + + | Result panel 893 | + + + + + +---------+ + + | | 2022-07-29 | [facility] | 1.015 | (missing) | (missing) | | (unavailable | 09:30:08 | [facility] | | | + + + +---------+ + + + + | Result panel 894 | + + + + + + + + + | | 2022-07-29 | [facility] | TRACE-I | (missing) | (missing) | | (unavailable | 09:30:08 | [facility] | | | + + + + + + + + + | Result panel 895 | + + + + + +-------+ + + | | 2022-07-29 | [facility] | 6.0 | (missing) | (missing) | | (unavailable | 09:30:08 | [facility] | | | + + + +-------+ + + + + | Result panel 896 | + + + + + +------+ + + | | 2022-07-29 | [facility] | 30 | (missing) | (missing) | | (unavailable | 09:30:08 | [facility] | | | + + + +------+ + + + + | Result panel 897 | + + + + + + + + + | | 2022-07-29 | [facility] | NORMAL | (missing) | (missing) | | (unavailable | 09:30:08 | [facility] | | | + + + + + + + + + | Result panel 898 | + + + + + + + + + | | 2022-07-29 | [facility] | NEGATIVE | (missing) | (missing) | | (unavailable | 09:30:08 | [facility] | | | + + + + + + + + + | Result panel 899 | + + + + + + + + + | | 2022-07-29 | [facility] | NEGATIVE | (missing) | (missing) | | (unavailable | 09:30:08 | [facility] | | | | + + + + + + + + + | Result panel 900 | + + + + + +-------+ + + | | 2022-07-29 | [facility] | 2-3 | (missing) | (missing) | | (unavailable | 09:30:08 | [facility] | | | + + + +-------+ + + + + | Result panel 901 | + + + + + +-------+ + + | | 2022-07-29 | [facility] | 0-1 | (missing) | (missing) | | (unavailable | 09:30:08 | [facility] | | | + + + +-------+ + + + + | Result panel 902 | + + + + + + + + + | | 2022-07-29 | [facility] | SQUAMOUS 1+ | (missing) | (missing) | | (unavailable | 09:30:08 | [facility] | | | | + + + + + + + + + | Result panel 903 | + + + + + + + + + | | 2022-07-29 | [facility] | NONE SEEN | (missing) | (missing) | | (unavailable | 09:30:08 | [facility] | | | + + + + + + + + + | Result panel 904 | + + + + + + + + + | | 2022-07-29 | [facility] | NONE SEEN | (missing) | (missing) | | (unavailable | 09:30:08 | [facility] | | | + + + + + + + + + | Result panel 905 | + + + + + + + + + | | 2022-07-29 | [facility] | NONE SEEN | (missing) | (missing) | | (unavailable | 09:30:08 | [facility] | | | + + + + + + + + + | Result panel 906 | + + + + + + + + + | | 2022-07-29 | [facility] | CLEAN CATCH | (missing) | (missing) | | (unavailable | 09:30:08 | [facility] | | | + + + + + + + + + | Result panel 907 | + + + + + +-------+ + + | | 2022-08-03 | [facility] | 381 | (missing) | (missing) | | (unavailable | 12:43 | [facility] | | | | + + + +-------+ + + + + | Result panel 908 | + + + + + +-------+ + + | | 2022-08-03 | [facility] | 381 | (missing) | (missing) | | (unavailable | 12:43 | [facility] | | | + + + +-------+ + + + + | Result panel 909 | + + + + + +-------+ + + | | 2022-08-03 | [facility] | 381 | (missing) | (missing) | | (unavailable | 12:43:08 | [facility] | | | + + + +-------+ + + + + | Result panel 910 | + + + + + +-------+ + + | | 2022-08-03 | [facility] | 8.3 | (missing) | (missing) | | (unavailable | 14:34 | [facility] | | | + + + +-------+ + + + + | Result panel 911 | + + + + + +--------+ + + | | 2022-08-03 | [facility] | 3.48 | (missing) | (missing) | | (unavailable | 14:34 | [facility] | | | + + + +--------+ + + + + | Result panel 912 | + + + + + +--------+ + + | | 2022-08-03 | [facility] | 10.4 | (missing) | (missing) | | (unavailable | 14:34 | [facility] | | | + + + +--------+ + + + + | Result panel 913 | + + + + + +--------+ + + | | 2022-08-03 | [facility] | 32.2 | (missing) | (missing) | | (unavailable | 14:34 | [facility] | | | + + + +--------+ + + + + | Result panel 914 | + + + + + +--------+ + + | | 2022-08-03 | [facility] | 92.5 | (missing) | (missing) | | (unavailable | 14:34 | [facility] | | | + + + +--------+ + + + + | Result panel 915 | + + + + + +--------+ + + | | 2022-08-03 | [facility] | 29.8 | (missing) | (missing) | | (unavailable | 14:34 | [facility] | | | + + + +--------+ + + + + | Result panel 916 | + + + + + +--------+ + + | | 2022-08-03 | [facility] | 32.3 | (missing) | (missing) | | (unavailable | 14:34 | [facility] | | | + + + +--------+ + + + + | Result panel 917 | + + + + + +--------+ + + | | 2022-08-03 | [facility] | 13.8 | (missing) | (missing) | | (unavailable | 14:34 | [facility] | | | + + + +--------+ + + + + | Result panel 918 | + + + + + +-------+ + + | | 2022-08-03 | [facility] | 447 | (missing) | (missing) | | (unavailable | 14:34 | [facility] | | | + + + +-------+ + + + + | Result panel 919 | + + + + + +--------+ + + | | 2022-08-03 | [facility] | 62.5 | (missing) | (missing) | | (unavailable | 14:34 | [facility] | | | + + + +--------+ + + + + | Result panel 920 | + + + + + +--------+ + + | | 2022-08-03 | [facility] | 29.8 | (missing) | (missing) | | (unavailable | 14:34 | [facility] | | | + + + +--------+ + + + + | Result panel 921 | + + + + + +-------+ + + | | 2022-08-03 | [facility] | 5.5 | (missing) | (missing) | | (unavailable | 14:34 | [facility] | | | + + + +-------+ + + + + | Result panel 922 | + + + + + +-------+ + + | | 2022-08-03 | [facility] | 1.2 | (missing) | (missing) | | (unavailable | 14:34 | [facility] | | | + + + +-------+ + + + + | Result panel 923 | + + + + + +-------+ + + | | 2022-08-03 | [facility] | 1.0 | (missing) | (missing) | | (unavailable | 14:34 | [facility] | | | + + + +-------+ + + + + | Result panel 924 | + + + + + +--------+ + + | | 2022-08-03 | [facility] | 7.32 | (missing) | (missing) | | (unavailable | 14:34 | [facility] | | | + + + +--------+ + + + + | Result panel 925 | + + + + + +-------+---------+ + | | 2022-08-03 | [facility] | 299 | mg/dL | (missing) | | (unavailable | 14:34 | [facility] | | | + + + +-------+---------+ + + + | Result panel 926 | + + + + + +------+---------+ + | | 2022-08-03 | [facility] | 32 | mg/dL | (missing) | | (unavailable | 14:34 | [facility] | | | | + + + +------+---------+ + + + | Result panel 927 | + + + + + +--------+---------+ + | | 2022-08-03 | [facility] | 2.02 | mg/dL | (missing) | | (unavailable | 14:34 | [facility] | | | | + + + +--------+---------+ + + + | Result panel 928 | + + + + + +------+ + + | | 2022-08-03 | [facility] | 35 | (missing) | (missing) | | (unavailable | 14:34 | [facility] | | | + + + +------+ + + + + | Result panel 929 | + + + + + +---------+ + + | | 2022-08-03 | [facility] | 15.84 | (missing) | (missing) | | (unavailable | 14:34 | [facility] | | | | + + + +---------+ + + + + | Result panel 930 | + + + + + +-------+ + + | | 2022-08-03 | [facility] | 136 | (missing) | (missing) | | (unavailable | 14:34 | [facility] | | | + + + +-------+ + + + + | Result panel 931 | + + + + + +-------+ + + | | 2022-08-03 | [facility] | 5.3 | (missing) | (missing) | | (unavailable | 14:34 | [facility] | | | + + + +-------+ + + + + | Result panel 932 | + + + + + +-------+ + + | | 2022-08-03 | [facility] | 100 | (missing) | (missing) | | (unavailable | 14:34 | [facility] | | | + + + +-------+ + + + + | Result panel 933 | + + + + + +------+ + + | | 2022-08-03 | [facility] | 21 | (missing) | (missing) | | (unavailable | 14:34 | [facility] | | | + + + +------+ + + + + | Result panel 934 | + + + + + +--------+ + + | | 2022-08-03 | [facility] | 20.3 | (missing) | (missing) | | (unavailable | 14:34 | [facility] | | | + + + +--------+ + + + + | Result panel 935 | + + + + + +-------+---------+ + | | 2022-08-03 | [facility] | 9.3 | mg/dL | (missing) | | (unavailable | 14:34 | [facility] | | | | + + + +-------+---------+ + + + | Result panel 936 | + + + + + +-------+ + + | | 2022-08-03 | [facility] | 8.4 | (missing) | (missing) | | (unavailable | 14:34 | [facility] | | | | + + + +-------+ + + + + | Result panel 937 | + + + + + +-------+ + + | | 2022-08-03 | [facility] | 3.7 | (missing) | (missing) | | (unavailable | 14:34 | [facility] | | | | + + + +-------+ + + + + | Result panel 938 | + + + + + +-------+ + + | | 2022-08-03 | [facility] | 4.7 | (missing) | (missing) | | (unavailable | 14:34 | [facility] | | | | + + + +-------+ + + + + | Result panel 939 | + + + + + +--------+ + + | | 2022-08-03 | [facility] | 0.79 | (missing) | (missing) | | (unavailable | 14:34 | [facility] | | | | + + + +--------+ + + + + | Result panel 940 | + + + + + +-------+ + + | | 2022-08-03 | [facility] | 0.2 | (missing) | (missing) | | (unavailable | 14:34 | [facility] | | | | + + + +-------+ + + + + | Result panel 941 | + + + + + +------+ + + | | 2022-08-03 | [facility] | 43 | (missing) | (missing) | | (unavailable | 14:34 | [facility] | | | | + + + +------+ + + + + | Result panel 942 | + + + + + +------+ + + | | 2022-08-03 | [facility] | 42 | (missing) | (missing) | | (unavailable | 14:34 | [facility] | | | | + + + +------+ + + + + | Result panel 943 | + + + + + +-------+ + + | | 2022-08-03 | [facility] | 197 | (missing) | (missing) | | (unavailable | 14:34 | [facility] | | | | + + + +-------+ + + + + | Result panel 944 | + + + + + +------+ + + | | 2022-08-03 | [facility] | 98 | (missing) | (missing) | | (unavailable | 14:34 | [facility] | | | | + + + +------+ + + + + | Result panel 945 | + + + + + + + + + | | 2022-08-03 | [facility] | NEGATIVE | (missing) | (missing) | | (unavailable | 14:34 | [facility] | | | | + + + + + + + + + | Result panel 946 | + + + + + +-------+ + + | | 2022-08-03 | [facility] | 8.3 | (missing) | (missing) | | (unavailable | 14:34 | [facility] | | | | + + + +-------+ + + + + | Result panel 947 | + + + + + +--------+ + + | | 2022-08-03 | [facility] | 3.48 | (missing) | (missing) | | (unavailable | 14:34 | [facility] | | | | + + + +--------+ + + + + | Result panel 948 | + + + + + +--------+ + + | | 2022-08-03 | [facility] | 10.4 | (missing) | (missing) | | (unavailable | 14:34 | [facility] | | | | + + + +--------+ + + + + | Result panel 949 | + + + + + +--------+ + + | | 2022-08-03 | [facility] | 32.2 | (missing) | (missing) | | (unavailable | 14:34 | [facility] | | | | + + + +--------+ + + + + | Result panel 950 | + + + + + +--------+ + + | | 2022-08-03 | [facility] | 92.5 | (missing) | (missing) | | (unavailable | 14:34 | [facility] | | | | + + + +--------+ + + + + | Result panel 951 | + + + + + +--------+ + + | | 2022-08-03 | [facility] | 29.8 | (missing) | (missing) | | (unavailable | 14:34 | [facility] | | | | + + + +--------+ + + + + | Result panel 952 | + + + + + +--------+ + + | | 2022-08-03 | [facility] | 32.3 | (missing) | (missing) | | (unavailable | 14:34 | [facility] | | | | + + + +--------+ + + + + | Result panel 953 | + + + + + +--------+ + + | | 2022-08-03 | [facility] | 13.8 | (missing) | (missing) | | (unavailable | 14:34 | [facility] | | | | + + + +--------+ + + + + | Result panel 954 | + + + + + +-------+ + + | | 2022-08-03 | [facility] | 447 | (missing) | (missing) | | (unavailable | 14:34 | [facility] | | | | + + + +-------+ + + + + | Result panel 955 | + + + + + +--------+ + + | | 2022-08-03 | [facility] | 62.5 | (missing) | (missing) | | (unavailable | 14:34 | [facility] | | | | + + + +--------+ + + + + | Result panel 956 | + + + + + +--------+ + + | | 2022-08-03 | [facility] | 29.8 | (missing) | (missing) | | (unavailable | 14:34 | [facility] | | | | + + + +--------+ + + + + | Result panel 957 | + + + + + +-------+ + + | | 2022-08-03 | [facility] | 5.5 | (missing) | (missing) | | (unavailable | 14:34 | [facility] | | | | + + + +-------+ + + + + | Result panel 958 | + + + + + +-------+ + + | | 2022-08-03 | [facility] | 1.2 | (missing) | (missing) | | (unavailable | 14:34 | [facility] | | | + + + +-------+ + + + + | Result panel 959 | + + + + + +-------+ + + | | 2022-08-03 | [facility] | 1.0 | (missing) | (missing) | | (unavailable | 14:34 | [facility] | | | + + + +-------+ + + + + | Result panel 960 | + + + + + +--------+ + + | | 2022-08-03 | [facility] | 7.32 | (missing) | (missing) | | (unavailable | 14:34 | [facility] | | | + + + +--------+ + + + + | Result panel 961 | + + + + + +-------+---------+ + | | 2022-08-03 | [facility] | 299 | mg/dL | (missing) | | (unavailable | 14:34 | [facility] | | | + + + +-------+---------+ + + + | Result panel 962 | + + + + + +------+---------+ + | | 2022-08-03 | [facility] | 32 | mg/dL | (missing) | | (unavailable | 14:34 | [facility] | | | + + + +------+---------+ + + + | Result panel 963 | + + + + + +--------+---------+ + | | 2022-08-03 | [facility] | 2.02 | mg/dL | (missing) | | (unavailable | 14:34 | [facility] | | | + + + +--------+---------+ + + + | Result panel 964 | + + + + + +------+ + + | | 2022-08-03 | [facility] | 35 | (missing) | (missing) | | (unavailable | 14:34 | [facility] | | | + + + +------+ + + + + | Result panel 965 | + + + + + +---------+ + + | | 2022-08-03 | [facility] | 15.84 | (missing) | (missing) | | (unavailable | 14:34 | [facility] | | | + + + +---------+ + + + + | Result panel 966 | + + + + + +-------+ + + | | 2022-08-03 | [facility] | 136 | (missing) | (missing) | | (unavailable | 14:34 | [facility] | | | + + + +-------+ + + + + | Result panel 967 | + + + + + +-------+ + + | | 2022-08-03 | [facility] | 5.3 | (missing) | (missing) | | (unavailable | 14:34 | [facility] | | | + + + +-------+ + + + + | Result panel 968 | + + + + + +-------+ + + | | 2022-08-03 | [facility] | 100 | (missing) | (missing) | | (unavailable | 14:34 | [facility] | | | + + + +-------+ + + + + | Result panel 969 | + + + + + +------+ + + | | 2022-08-03 | [facility] | 21 | (missing) | (missing) | | (unavailable | 14:34 | [facility] | | | + + + +------+ + + + + | Result panel 970 | + + + + + +--------+ + + | | 2022-08-03 | [facility] | 20.3 | (missing) | (missing) | | (unavailable | 14:34 | [facility] | | | + + + +--------+ + + + + | Result panel 971 | + + + + + +-------+---------+ + | | 2022-08-03 | [facility] | 9.3 | mg/dL | (missing) | | (unavailable | 14:34 | [facility] | | | + + + +-------+---------+ + + + | Result panel 972 | + + + + + +-------+ + + | | 2022-08-03 | [facility] | 8.4 | (missing) | (missing) | | (unavailable | 14:34 | [facility] | | | + + + +-------+ + + + + | Result panel 973 | + + + + + +-------+ + + | | 2022-08-03 | [facility] | 3.7 | (missing) | (missing) | | (unavailable | 14:34 | [facility] | | | + + + +-------+ + + + + | Result panel 974 | + + + + + +-------+ + + | | 2022-08-03 | [facility] | 4.7 | (missing) | (missing) | | (unavailable | 14:34 | [facility] | | | + + + +-------+ + + + + | Result panel 975 | + + + + + +--------+ + + | | 2022-08-03 | [facility] | 0.79 | (missing) | (missing) | | (unavailable | 14:34 | [facility] | | | + + + +--------+ + + + + | Result panel 976 | + + + + + +-------+ + + | | 2022-08-03 | [facility] | 0.2 | (missing) | (missing) | | (unavailable | 14:34 | [facility] | | | + + + +-------+ + + + + | Result panel 977 | + + + + + +------+ + + | | 2022-08-03 | [facility] | 43 | (missing) | (missing) | | (unavailable | 14:34 | [facility] | | | + + + +------+ + + + + | Result panel 978 | + + + + + +------+ + + | | 2022-08-03 | [facility] | 42 | (missing) | (missing) | | (unavailable | 14:34 | [facility] | | | + + + +------+ + + + + | Result panel 979 | + + + + + +-------+ + + | | 2022-08-03 | [facility] | 197 | (missing) | (missing) | | (unavailable | 14:34 | [facility] | | | + + + +-------+ + + + + | Result panel 980 | + + + + + +------+ + + | | 2022-08-03 | [facility] | 98 | (missing) | (missing) | | (unavailable | 14:34 | [facility] | | | + + + +------+ + + + + | Result panel 981 | + + + + + + + + + | | 2022-08-03 | [facility] | NEGATIVE | (missing) | (missing) | | (unavailable | 14:34 | [facility] | | | + + + + + + + + + | Result panel 982 | + + + + + +--------+ + + | | 2022-08-03 | [facility] | 7.32 | (missing) | (missing) | | (unavailable | 14:34:08 | [facility] | | | + + + +--------+ + + + + | Result panel 983 | + + + + + +------+ + + | | 2022-08-03 | [facility] | 98 | (missing) | (missing) | | (unavailable | 14:34:08 | [facility] | | | + + + +------+ + + + + | Result panel 984 | + + + + + + + + + | | 2022-08-03 | [facility] | NEGATIVE | (missing) | (missing) | | (unavailable | 14:34:08 [facility] | | | + + + + + + + + + | Result panel 985 | + + + + + + + + + | | 2022-08-03 | [facility] | NEGATIVE | (missing) | (missing) | | (unavailable | 14:48 | [facility] | | | + + + + + + + + + | Result panel 986 | + + + + + + + + + | | 2022-08-03 | [facility] | NEGATIVE | (missing) | (missing) | | (unavailable | 14:48 | [facility] | | | + + + + + + + + + | Result panel 987 | + + + + + + + + + | | 2022-08-03 | [facility] | NEGATIVE | (missing) | (missing) | | (unavailable | 14:48:08 | [facility] | | | + + + + + + + + + | Result panel 988 | + + + + + +-------+ + + | | 2022-08-15 | [facility] | 7.5 | (missing) | (missing) | | (unavailable | 12::08 | [facility] | | | + + + +-------+ + + + + | Result panel 989 | + + + + + +--------+ + + | | 2022-08-15 | [facility] | 3.56 | (missing) | (missing) | | (unavailable | 12:30:08 | [facility] | | | + + + +--------+ + + + + | Result panel 990 | + + + + + +--------+ + + | | 2022-08-15 | [facility] | 10.5 | (missing) | (missing) | | (unavailable | 12:30:08 | [facility] | | | + + + +--------+ + + + + | Result panel 991 | + + + + + +--------+ + + | | 2022-08-15 | [facility] | 32.7 | (missing) | (missing) | | (unavailable | 12:30:08 [facility] | | | + + + +--------+ + + + + | Result panel 992 | + + + + + +--------+ + + | | 2022-08-15 | [facility] | 92.0 | (missing) | (missing) | | (unavailable | 12:30:08 [facility] | | | + + + +--------+ + + + + | Result panel 993 | + + + + + +--------+ + + | | 2022-08-15 | [facility] | 29.6 | (missing) | (missing) | | (unavailable | 12:30:08 [facility] | | | + + + +--------+ + + + + | Result panel 994 | + + + + + +--------+ + + | | 2022-08-15 | [facility] | 32.2 | (missing) | (missing) | | (unavailable | 12:30:08 [facility] | | | + + + +--------+ + + + + | Result panel 995 | + + + + + +--------+ + + | | 2022-08-15 | [facility] | 13.6 | (missing) | (missing) | | (unavailable | 12:30:08 [facility] | | | + + + +--------+ + + + + | Result panel 996 | + + + + + +-------+ + + | | 2022-08-15 | [facility] | 397 | (missing) | (missing) | | (unavailable | 12:30:08 [facility] | | | + + + +-------+ + + + + | Result panel 997 | + + + + + +--------+ + + | | 2022-08-15 | [facility] | 51.9 | (missing) | (missing) | | (unavailable | 12:30:08 [facility] | | | + + + +--------+ + + + + | Result panel 998 | + + + + + +--------+ + + | | 2022-08-15 | [facility] | 36.0 | (missing) | (missing) | | (unavailable | 12:30:08 [facility] | | | + + + +--------+ + + + + | Result panel 999 | + + + + + +-------+ + + | | 2022-08-15 | [facility] | 9.4 | (missing) | (missing) | | (unavailable | 12:30:08 [facility] | | | + + + +-------+ + + + + | Result panel 1000 | + + + + + +-------+ + + | | 2022-08-15 | [facility] | 2.2 | (missing) | (missing) | | (unavailable | 12:30:08 [facility] | | | + + + +-------+ + + + + | Result panel 1001 | + + + + + +-------+ + + | | 2022-08-15 | [facility] | 0.5 | (missing) | (missing) | | (unavailable | 12:30:08 [facility] | | | + + + +-------+ + + + + | Result panel 1002 | + + + + + +-------+---------+ + | | 2022-08-15 | [facility] | 100 | mg/dL | (missing) | | (unavailable | :08 | [facility] | | | + + + +-------+---------+ + + + | Result panel 1003 | + + + + + +------+---------+ + | | 2022-08-15 | [facility] | 29 | mg/dL | (missing) | | (unavailable | 12:30:08 | [facility] | | | + + + +------+---------+ + + + | Result panel 1004 | + + + + + +--------+---------+ + | | 2022-08-15 | [facility] | 1.83 | mg/dL | (missing) | | (unavailable | 12:08 | [facility] | | | + + + +--------+---------+ + + + | Result panel 1005 | + + + + + +------+ + + | | 2022-08-15 | [facility] | 39 | (missing) | (missing) | | (unavailable | 12:30:08 [facility] | | | + + + +------+ + + + + | Result panel 1006 | + + + + + +---------+ + + | | 2022-08-15 | [facility] | 15.84 | (missing) | (missing) | | (unavailable | 12:30:08 [facility] | | | + + + +---------+ + + + + | Result panel 1007 | + + + + + +-------+ + + | | 2022-08-15 | [facility] | 139 | (missing) | (missing) | | (unavailable | 12:30:08 [facility] | | | + + + +-------+ + + + + | Result panel 1008 | + + + + + +-------+ + + | | 2022-08-15 | [facility] | 4.4 | (missing) | (missing) | | (unavailable | 12:30:08 | [facility] | | | + + + +-------+ + + + + | Result panel 1009 | + + + + + +-------+ + + | | 2022-08-15 | [facility] | 104 | (missing) | (missing) | | (unavailable | 12:30:08 | [facility] | | | + + + +-------+ + + + + | Result panel 1010 | + + + + + +------+ + + | | 2022-08-15 | [facility] | 25 | (missing) | (missing) | | (unavailable | 12:30:08 [facility] | | | + + + +------+ + + + + | Result panel 1011 | + + + + + +--------+ + + | | 2022-08-15 | [facility] | 14.4 | (missing) | (missing) | | (unavailable | 12:30:08 [facility] | | | + + + +--------+ + + + + | Result panel 1012 | + + + + + +-------+---------+ + | | 2022-08-15 | [facility] | 9.4 | mg/dL | (missing) | | (unavailable | 12:30:08 [facility] | | | + + + +-------+---------+ + + + | Result panel 1013 | + + + + + +-------+ + + | | 2022-08-15 | [facility] | 8.2 | (missing) | (missing) | | (unavailable | 12:30:08 [facility] | | | + + + +-------+ + + + + | Result panel 1014 | + + + + + +-------+ + + | | 2022-08-15 | [facility] | 4.0 | (missing) | (missing) | | (unavailable | 12:30:08 [facility] | | | + + + +-------+ + + + + | Result panel 1015 | + + + + + +-------+ + + | | 2022-08-15 | [facility] | 4.2 | (missing) | (missing) | | (unavailable | 12:30:08 [facility] | | | + + + +-------+ + + + + | Result panel 1016 | + + + + + +--------+ + + | | 2022-08-15 | [facility] | 0.95 | (missing) | (missing) | | (unavailable | 12:30:08 [facility] | | | + + + +--------+ + + + + | Result panel 1017 | + + + + + +-------+ + + | | 2022-08-15 | [facility] | 0.2 | (missing) | (missing) | | (unavailable | 12:30:08 [facility] | | | + + + +-------+ + + + + | Result panel 1018 | + + + + + +------+ + + | | 2022-08-15 | [facility] | 30 | (missing) | (missing) | | (unavailable | 12:30:08 [facility] | | | + + + +------+ + + + + | Result panel 1019 | + + + + + +------+ + + | | 2022-08-15 | [facility] | 45 | (missing) | (missing) | | (unavailable | 12:08 | [facility] | | | | + + + +------+ + + + + | Result panel 1020 | + + + + + +-------+ + + | | 2022-08-15 | [facility] | 214 | (missing) | (missing) | | (unavailable | 12:30:08 [facility] | | | + + + +-------+ + + + + | Result panel 1021 | + + + + + + + + + | | 2022-08-15 | [facility] | NEGATIVE | (missing) | (missing) | | (unavailable | 12:36:08 [facility] | | | + + + + + + + + + | Result panel 1022 | + + + + + + + + + | | 2022-08-15 | [facility] | NEGATIVE | (missing) | (missing) | | (unavailable | 12:36:08 | [facility] | | | | + + + + + + + + + | Result panel 1023 | + + + + + +-------+ + + | | 2022-09-14 | [facility] | 6.7 | (missing) | (missing) | | (unavailable | 11:00:08 | [facility] | | | + + + +-------+ + + + + | Result panel 1024 | + + + + + +-------+ + + | | 2022-09-14 | [facility] | 124 | (missing) | (missing) | | (unavailable | 11:00:08 | [facility] | | | + + + +-------+ + + + + | Result panel 1025 | + + + + + +-------+ + + | | 2022-09-14 | [facility] | 6.7 | (missing) | (missing) | | (unavailable | 11:00:08 [facility] | | | + + + +-------+ + + + + | Result panel 1026 | + + + + + +-------+ + + | | 2022-09-14 | [facility] | 124 | (missing) | (missing) | | (unavailable | 11::08 | [facility] | | | + + + +-------+ + + + + | Result panel 1027 | + + + + + +-------+ + + | | 2022-09-14 | [facility] | 6.7 | (missing) | (missing) | | (unavailable | 11:00:08 [facility] | | | + + + +-------+ + + + + | Result panel 1028 | + + + + + +-------+ + + | | 2022-09-14 | [facility] | 5.4 | (missing) | (missing) | | (unavailable | 11:00:08 [facility] | | | + + + +-------+ + + + + | Result panel 1029 | + + + + + +--------+ + + | | 2022-09-14 | [facility] | 3.61 | (missing) | (missing) | | (unavailable | 11:00:08 [facility] | | | + + + +--------+ + + + + | Result panel 1030 | + + + + + +--------+ + + | | 2022-09-14 | [facility] | 10.7 | (missing) | (missing) | | (unavailable | 11:00:08 [facility] | | | + + + +--------+ + + + + | Result panel 1031 | + + + + + +--------+ + + | | 2022-09-14 | [facility] | 32.3 | (missing) | (missing) | | (unavailable | 11:00:08 [facility] | | | + + + +--------+ + + + + | Result panel 1032 | + + + + + +--------+ + + | | 2022-09-14 | [facility] | 89.6 | (missing) | (missing) | | (unavailable | 11:00:08 [facility] | | | + + + +--------+ + + + + | Result panel 1033 | + + + + + +--------+ + + | | 2022-09-14 | [facility] | 29.6 | (missing) | (missing) | | (unavailable | 11:00:08 [facility] | | | + + + +--------+ + + + + | Result panel 1034 | + + + + + +--------+ + + | | 2022-09-14 | [facility] | 33.1 | (missing) | (missing) | | (unavailable | 11:00:08 [facility] | | | + + + +--------+ + + + + | Result panel 1035 | + + + + + +--------+ + + | | 2022-09-14 | [facility] | 13.8 | (missing) | (missing) | | (unavailable | 11:00:08 [facility] | | | + + + +--------+ + + + + | Result panel 1036 | + + + + + +-------+ + + | | 2022-09-14 | [facility] | 358 | (missing) | (missing) | | (unavailable | 11:00:08 [facility] | | | + + + +-------+ + + + + | Result panel 1037 | + + + + + +--------+ + + | | 2022-09-14 | [facility] | 48.7 | (missing) | (missing) | | (unavailable | 11:00:08 [facility] | | | + + + +--------+ + + + + | Result panel 1038 | + + + + + +--------+ + + | | 2022-09-14 | [facility] | 34.1 | (missing) | (missing) | | (unavailable | 11:00:08 [facility] | | | + + + +--------+ + + + + | Result panel 1039 | + + + + + +--------+ + + | | 2022-09-14 | [facility] | 12.7 | (missing) | (missing) | | (unavailable | 11:00:08 [facility] | | | + + + +--------+ + + + + | Result panel 1040 | + + + + + +-------+ + + | | 2022-09-14 | [facility] | 2.8 | (missing) | (missing) | | (unavailable | 11:00:08 [facility] | | | + + + +-------+ + + + + | Result panel 104 | + + + + + +-------+ + + | | 2022-09-14 | [facility] | 1.7 | (missing) | (missing) | | (unavailable | 11:00:08 [facility] | | | + + + +-------+ + + + + | Result panel 1042 | + + + + + +-------+---------+ + | | 2022-09-14 | [facility] | 424 | mg/dL | (missing) | | (unavailable | 08 | [facility] | | | | + + + +-------+---------+ + + + | Result panel 1043 | + + + + + +------+---------+ + | | 2022-09-14 | [facility] | 30 | mg/dL | (missing) | | (unavailable | 08 | [facility] | | | | + + + +------+---------+ + + + | Result panel 1044 | + + + + + +--------+---------+ + | | 2022-09-14 | [facility] | 1.85 | mg/dL | (missing) | | (unavailable | ::08 | [facility] | | | | + + + +--------+---------+ + + + | Result panel 1045 | + + + + + +------+ + + | | 2022-09-14 | [facility] | 39 | (missing) | (missing) | | (unavailable | 11::08 | [facility] | | | + + + +------+ + + + + | Result panel 1046 | + + + + + +---------+ + + | | 2022-09-14 | [facility] | 16.21 | (missing) | (missing) | | (unavailable | 11:00:08 [facility] | | | + + + +---------+ + + + + | Result panel 1047 | + + + + + +-------+ + + | | 2022-09-14 | [facility] | 135 | (missing) | (missing) | | (unavailable | 11:00:08 [facility] | | | | + + + +-------+ + + + + | Result panel 1048 | + + + + + +-------+ + + | | 2022-09-14 | [facility] | 4.0 | (missing) | (missing) | | (unavailable | 11:00:08 [facility] | | | + + + +-------+ + + + + | Result panel 1049 | + + + + + +-------+ + + | | 2022-09-14 | [facility] | 102 | (missing) | (missing) | | (unavailable | 11:00:08 [facility] | | | | + + + +-------+ + + + + | Result panel 1050 | + + + + + +------+ + + | | 2022-09-14 | [facility] | 22 | (missing) | (missing) | | (unavailable | 11:00:08 [facility] | | | | + + + +------+ + + + + | Result panel 1051 | + + + + + +--------+ + + | | 2022-09-14 | [facility] | 15.0 | (missing) | (missing) | | (unavailable | 11:00:08 [facility] | | | + + + +--------+ + + + + | Result panel 1052 | + + + + + +-------+---------+ + | | 2022-09-14 | [facility] | 9.2 | mg/dL | (missing) | | (unavailable | 11::08 | [facility] | | | | + + + +-------+---------+ + + + | Result panel 1053 | + + + + + +-------+ + + | | 2022-09-14 | [facility] | 8.2 | (missing) | (missing) | | (unavailable | 11:00:08 [facility] | | | + + + +-------+ + + + + | Result panel 1054 | + + + + + +-------+ + + | | 2022-09-14 | [facility] | 3.7 | (missing) | (missing) | | (unavailable | 11::08 | [facility] | | | | + + + +-------+ + + + + | Result panel 1055 | + + + + + +-------+ + + | | 2022-09-14 | [facility] | 4.5 | (missing) | (missing) | | (unavailable | 11:00:08 [facility] | | | + + + +-------+ + + + + | Result panel 1056 | + + + + + +--------+ + + | | 2022-09-14 | [facility] | 0.82 | (missing) | (missing) | | (unavailable | 11:00:08 [facility] | | | + + + +--------+ + + + + | Result panel 1057 | + + + + + +-------+ + + | | 2022-09-14 | [facility] | 0.3 | (missing) | (missing) | | (unavailable | 11:00:08 [facility] | | | + + + +-------+ + + + + | Result panel 1058 | + + + + + +------+ + + | | 2022-09-14 | [facility] | 37 | (missing) | (missing) | | (unavailable | 11::08 | [facility] | | | + + + +------+ + + + + | Result panel 1059 | + + + + + +------+ + + | | 2022-09-14 | [facility] | 33 | (missing) | (missing) | | (unavailable | 11::08 | [facility] | | | | + + + +------+ + + + + | Result panel 1060 | + + + + + +-------+ + + | | 2022-09-14 | [facility] | 220 | (missing) | (missing) | | (unavailable | 11::08 | [facility] | | | | + + + +-------+ + + + + | Result panel 1061 | + + + + + +-------+ + + | | 2022-09-14 | [facility] | 124 | (missing) | (missing) | | (unavailable | 11:00:08 [facility] | | | + + + +-------+ + + + + | Result panel 1062 | + + + + + +-------+ + + | | 2022-09-14 | [facility] | 6.7 | (missing) | (missing) | | (unavailable | 11:00:08 [facility] | | | | + + + +-------+ + + + + | Result panel 106 | + + + + + +-------+ + + | | 2022-09-22 | [facility] | 6.8 | (missing) | (missing) | | (unavailable | 23:44:08 [facility] | | | | + + + +-------+ + + + + | Result panel 1064 | + + + + + +--------+ + + | | 2022-09-22 | [facility] | 3.63 | (missing) | (missing) | | (unavailable | 23:44:08 | [facility] | | | | + + + +--------+ + + + + | Result panel 1065 | + + + + + +--------+ + + | | 2022-09-22 | [facility] | 10.5 | (missing) | (missing) | | (unavailable | 23:44:08 | [facility] | | | | + + + +--------+ + + + + | Result panel 1066 | + + + + + +--------+ + + | | 2022-09-22 | [facility] | 32.9 | (missing) | (missing) | | (unavailable | 23:44:08 | [facility] | | | | + + + +--------+ + + + + | Result panel 1067 | + + + + + +--------+ + + | | 2022-09-22 | [facility] | 90.6 | (missing) | (missing) | | (unavailable | 23:44:08 | [facility] | | | | + + + +--------+ + + + + | Result panel 1068 | + + + + + +--------+ + + | | 2022-09-22 | [facility] | 29.0 | (missing) | (missing) | | (unavailable | 23:44:08 | [facility] | | | | + + + +--------+ + + + + | Result panel 1069 | + + + + + +--------+ + + | | 2022-09-22 | [facility] | 32.0 | (missing) | (missing) | | (unavailable | 23:44:08 | [facility] | | | | + + + +--------+ + + + + | Result panel 1070 | + + + + + +--------+ + + | | 2022-09-22 | [facility] | 13.7 | (missing) | (missing) | | (unavailable | 23:44:08 | [facility] | | | | + + + +--------+ + + + + | Result panel 1071 | + + + + + +-------+ + + | | 2022-09-22 | [facility] | 274 | (missing) | (missing) | | (unavailable | 23:44:08 | [facility] | | | | + + + +-------+ + + + + | Result panel 107 | + + + + + +--------+ + + | | 2022-09-22 | [facility] | 45.9 | (missing) | (missing) | | (unavailable | 23:44:08 | [facility] | | | | + + + +--------+ + + + + | Result panel 107 | + + + + + +--------+ + + | | 2022-09-22 | [facility] | 44.2 | (missing) | (missing) | | (unavailable | 23:44:08 | [facility] | | | | + + + +--------+ + + + + | Result panel 1074 | + + + + + +-------+ + + | | 2022-09-22 | [facility] | 6.8 | (missing) | (missing) | | (unavailable | 23:44:08 | [facility] | | | | + + + +-------+ + + + + | Result panel 1075 | + + + + + +-------+ + + | | 2022-09-22 | [facility] | 2.0 | (missing) | (missing) | | (unavailable | 23:44:08 | [facility] | | | | + + + +-------+ + + + + | Result panel 1076 | + + + + + +-------+ + + | | 2022-09-22 | [facility] | 1.1 | (missing) | (missing) | | (unavailable | 23:44:08 | [facility] | | | | + + + +-------+ + + + + | Result panel 1077 | + + + + + +-------+ + + | | 2022-09-23 | [facility] | 8.7 | (missing) | (missing) | | (unavailable | 00::08 | [facility] | | | | + + + +-------+ + + + + | Result panel 1078 | + + + + + +-------+ + + | | 2022-09-23 | [facility] | 3.9 | (missing) | (missing) | | (unavailable | 00::08 | [facility] | | | | + + + +-------+ + + + + | Result panel 1079 | + + + + + +-------+ + + | | 2022-09-23 | [facility] | 4.8 | (missing) | (missing) | | (unavailable | 00:01:08 | [facility] | | | | + + + +-------+ + + + + | Result panel 1080 | + + + + + +--------+ + + | | 2022-09-23 | [facility] | 0.81 | (missing) | (missing) | | (unavailable | 00:01:08 | [facility] | | | | + + + +--------+ + + + + | Result panel 1081 | + + + + + +-------+ + + | | 2022-09-23 | [facility] | 0.3 | (missing) | (missing) | | (unavailable | 00:01:08 | [facility] | | | + + + +-------+ + + + + | Result panel 1082 | + + + + + +------+ + + | | 2022-09-23 | [facility] | 24 | (missing) | (missing) | | (unavailable | 00:01:08 | [facility] | | | + + + +------+ + + + + | Result panel 1083 | + + + + + +------+ + + | | 2022-09-23 | [facility] | 28 | (missing) | (missing) | | (unavailable | 00:01:08 | [facility] | | | + + + +------+ + + + + | Result panel 1084 | + + + + + +-------+ + + | | 2022-09-23 | [facility] | 224 | (missing) | (missing) | | (unavailable | 00:01:08 | [facility] | | | + + + +-------+ + + + + | Result panel 1085 | + + + + + +---------+ + + | | 2022-09-23 | [facility] | 7.330 | (missing) | (missing) | | (unavailable | 00:08 | [facility] | | | + + + +---------+ + + + + | Result panel 1086 | + + + + + +-------+---------+ + | | 2022-09-23 | [facility] | 318 | mg/dL | (missing) | | (unavailable | 00::08 | [facility] | | | + + + +-------+---------+ + + + | Result panel 1087 | + + + + + +------+---------+ + | | 2022-09-23 | [facility] | 29 | mg/dL | (missing) | | (unavailable | 00:08 | [facility] | | | + + + +------+---------+ + + + | Result panel 1088 | + + + + + +--------+---------+ + | | 2022-09-23 | [facility] | 2.23 | mg/dL | (missing) | | (unavailable | 00::08 | [facility] | | | + + + +--------+---------+ + + + | Result panel 1089 | + + + + + +------+ + + | | 2022-09-23 | [facility] | 31 | (missing) | (missing) | | (unavailable | 00:01:08 | [facility] | | | + + + +------+ + + + + | Result panel 1090 | + + + + + +---------+ + + | | 2022-09-23 | [facility] | 13.00 | (missing) | (missing) | | (unavailable | 00:01:08 | [facility] | | | + + + +---------+ + + + + | Result panel 1091 | + + + + + +-------+ + + | | 2022-09-23 | [facility] | 133 | (missing) | (missing) | | (unavailable | 00:01:08 | [facility] | | | + + + +-------+ + + + + | Result panel 1092 | + + + + + +-------+ + + | | 2022-09-23 | [facility] | 4.7 | (missing) | (missing) | | (unavailable | 00:01:08 | [facility] | | | + + + +-------+ + + + + | Result panel 1093 | + + + + + +------+ + + | | 2022-09-23 | [facility] | 99 | (missing) | (missing) | | (unavailable | 00:01:08 | [facility] | | | + + + +------+ + + + + | Result panel 1094 | + + + + + +------+ + + | | 2022-09-23 | [facility] | 19 | (missing) | (missing) | | (unavailable | 00:01:08 | [facility] | | | + + + +------+ + + + + | Result panel 1095 | + + + + + +--------+ + + | | 2022-09-23 | [facility] | 19.7 | (missing) | (missing) | | (unavailable | 00:01:08 | [facility] | | | + + + +--------+ + + + + | Result panel 1096 | + + + + + +-------+---------+ + | | 2022-09-23 | [facility] | 9.6 | mg/dL | (missing) | | (unavailable | 00:01:08 | [facility] | | | + + + +-------+---------+ + + + | Result panel 1097 | + + + + + +-------+ + + | | 2022-09-23 | [facility] | 8.7 | (missing) | (missing) | | (unavailable | 00:01:08 | [facility] | | | + + + +-------+ + + + + | Result panel 1098 | + + + + + +-------+ + + | | 2022-09-23 | [facility] | 3.9 | (missing) | (missing) | | (unavailable | 00:01:08 | [facility] | | | + + + +-------+ + + + + | Result panel 1099 | + + + + + +-------+ + + | | 2022-09-23 | [facility] | 4.8 | (missing) | (missing) | | (unavailable | 00:01:08 | [facility] | | | + + + +-------+ + + + + | Result panel 1100 | + + + + + +--------+ + + | | 2022-09-23 | [facility] | 0.81 | (missing) | (missing) | | (unavailable | :: | [facility] | | | + + + +--------+ + + + + | Result panel 1101 | + + + + + +-------+ + + | | 2022-09-23 | [facility] | 0.3 | (missing) | (missing) | | (unavailable | 00::08 | [facility] | | | + + + +-------+ + + + + | Result panel 1102 | + + + + + +------+ + + | | 2022-09-23 | [facility] | 24 | (missing) | (missing) | | (unavailable | ::08 | [facility] | | | + + + +------+ + + + + | Result panel 1103 | + + + + + +------+ + + | | 2022-09-23 | [facility] | 28 | (missing) | (missing) | | (unavailable | 00::08 | [facility] | | | + + + +------+ + + + + | Result panel 1104 | + + + + + +-------+ + + | | 2022-09-23 | [facility] | 224 | (missing) | (missing) | | (unavailable | 00:01:08 | [facility] | | | + + + +-------+ + + + + | Result panel 1105 | + + + + + + + + + | | 2022-09-23 | [facility] | NEGATIVE | (missing) | (missing) | | (unavailable | 00:01:08 | [facility] | | | + + + + + + + + + | Result panel 1106 | + + + + + +------+ + + | | 2022-09-23 | [facility] | 3+ | (missing) | (missing) | | (unavailable | 00:20:08 | [facility] | | | + + + +------+ + + + + | Result panel 1107 | + + + + + + + + + | | 2022-09-23 | [facility] | CLEAN CATCH | (missing) | (missing) | | (unavailable | 00:20:08 | [facility] | | | + + + + + + + + + | Result panel 1108 | + + + + + + + + + | | 2022-09-23 | [facility] | YELLOW | (missing) | (missing) | | (unavailable | 00:20:08 | [facility] | | | + + + + + + + + + | Result panel 1109 | + + + + + + + + + | | 2022-09-23 | [facility] | SL CLOUDY | (missing) | (missing) | | (unavailable | 00:20:08 | [facility] | | | | + + + + + + + + + | Result panel 1110 | + + + + + + + + + | | 2022-09-23 | [facility] | >=1000 | (missing) | (missing) | | (unavailable | 00:20:08 | [facility] | | | + + + + + + + + + | Result panel 1111 | + + + + + + + + + | | 2022-09-23 | [facility] | NEGATIVE | (missing) | (missing) | | (unavailable | 00:20:08 | [facility] | | | | + + + + + + + + + | Result panel 1112 | + + + + + +---------+ + + | | 2022-09-23 | [facility] | TRACE | (missing) | (missing) | | (unavailable | 00:20:08 | [facility] | | | | + + + +---------+ + + + + | Result panel 1113 | + + + + + +---------+ + + | | 2022-09-23 | [facility] | 1.015 | (missing) | (missing) | | (unavailable | 00:20:08 | [facility] | | | + + + +---------+ + + + + | Result panel 1114 | + + + + + + + + + | | 2022-09-23 | [facility] | TRACE-L | (missing) | (missing) | | (unavailable | 00:20:08 | [facility] | | | + + + + + + + + + | Result panel 1115 | + + + + + +-------+ + + | | 2022-09-23 | [facility] | 6.0 | (missing) | (missing) | | (unavailable | 00:20:08 | [facility] | | | + + + +-------+ + + + + | Result panel 1116 | + + + + + +-------+ + + | | 2022-09-23 | [facility] | 100 | (missing) | (missing) | | (unavailable | 00:20:08 | [facility] | | | + + + +-------+ + + + + | Result panel 1117 | + + + + + + + + + | | 2022-09-23 | [facility] | NORMAL | (missing) | (missing) | | (unavailable | 00:20:08 | [facility] | | | | + + + + + + + + + | Result panel 1118 | + + + + + + + + + | | 2022-09-23 | [facility] | POSITIVE | (missing) | (missing) | | (unavailable | 00:20:08 | [facility] | | | | + + + + + + + + + | Result panel 1119 | + + + + + + + + + | | 2022-09-23 | [facility] | NEGATIVE | (missing) | (missing) | | (unavailable | 00:20:08 | [facility] | | | + + + + + + + + + | Result panel 1120 | + + + + + +-------+ + + | | 2022-09-23 | [facility] | 2-3 | (missing) | (missing) | | (unavailable | 00:20:08 | [facility] | | | + + + +-------+ + + + + | Result panel 1121 | + + + + + +---------+ + + | | 2022-09-23 | [facility] | 12-20 | (missing) | (missing) | | (unavailable | 00:20:08 | [facility] | | | + + + +---------+ + + + + | Result panel 1122 | + + + + + +-----+ + + | | 2022-09-23 | [facility] | 0 | (missing) | (missing) | | (unavailable | 00:20:08 | [facility] | | | + + + +-----+ + + + + | Result panel 1123 | + + + + + +------+ + + | | 2022-09-23 | [facility] | 3+ | (missing) | (missing) | | (unavailable | 00:20:08 | [facility] | | | + + + +------+ + + + + | Result panel 1124 | + + + + + +-------+ + + | | 2022-09-23 | [facility] | Yes | (missing) | (missing) | | (unavailable | 00:20:08 | [facility] | | | + + + +-------+ + + + + | Result panel 1125 | + + + + + + + + + | | 2022-09-23 | [facility] | CLEAN CATCH | (missing) | (missing) | | (unavailable | 00:20:08 | [facility] | | | | + + + + + + + + + | Result panel 1126 | + + + + + + + + + | | 2022-09-23 | [facility] | NEGATIVE | (missing) | (missing) | | (unavailable | 00:20:08 | [facility] | | | + + + + + + + + + | Result panel 1127 | + + + + + + + + + | | 2022-09-23 | [facility] | NEGATIVE | (missing) | (missing) | | (unavailable | 00:32:08 | [facility] | | | + + + + + + + + + | Result panel 1128 | + + + + + + + + + | | 2022-09-23 | [facility] | NEGATIVE | (missing) | (missing) | | (unavailable | 00:32:08 | [facility] | | | + + + + + + + + + | Result panel 1129 | + + + + + + + + + | | 2022-09-23 | [facility] | NEGATIVE | (missing) | (missing) | | (unavailable | 00:32:08 | [facility] | | | + + + + + + + + + | Result panel 1130 | + + + + + + + + + | | 2022-09-23 | [facility] | NEGATIVE | (missing) | (missing) | | (unavailable | 00:32:08 | [facility] | | | + + + + + + + + + | Result panel 1131 | + + + + + + + + + | | 2022-10-06 | [facility] | NEGATIVE | (missing) | (missing) | | (unavailable | 05:00:08 | [facility] | | | + + + + + + + + + | Result panel 1132 | + + + + + + + + + | | 2022-10-06 | [facility] | NEGATIVE | (missing) | (missing) | | (unavailable | 05:00:08 | [facility] | | | | + + + + + + + + + | Result panel 1133 | + + + + + + + + + | | 2022-10-06 | [facility] | YELLOW | (missing) | (missing) | | (unavailable | 05:00:08 | [facility] | | | | + + + + + + + + + | Result panel 1134 | + + + + + +---------+ + + | | 2022-10-06 | [facility] | CLEAR | (missing) | (missing) | | (unavailable | 05:00:08 | [facility] | | | + + + +---------+ + + + + | Result panel 1135 | + + + + + + + + + | | 2022-10-06 | [facility] | >=1000 | (missing) | (missing) | | (unavailable | 05:00:08 | [facility] | | | + + + + + + + + + | Result panel 1136 | + + + + + + + + + | | 2022-10-06 | [facility] | NEGATIVE | (missing) | (missing) | | (unavailable | 05:00:08 | [facility] | | | | + + + + + + + + + | Result panel 1137 | + + + + + + + + + | | 2022-10-06 | [facility] | NEGATIVE | (missing) | (missing) | | (unavailable | 05:00:08 | [facility] | | | | + + + + + + + + + | Result panel 1138 | + + + + + +---------+ + + | | 2022-10-06 | [facility] | 1.015 | (missing) | (missing) | | (unavailable | 05:00:08 | [facility] | | | + + + +---------+ + + + + | Result panel 1139 | + + + + + + + + + | | 2022-10-06 | [facility] | TRACE-I | (missing) | (missing) | | (unavailable | 05:00:08 | [facility] | | | | + + + + + + + + + | Result panel 1140 | + + + + + +-------+ + + | | 2022-10-06 | [facility] | 6.0 | (missing) | (missing) | | (unavailable | 05:00:08 | [facility] | | | + + + +-------+ + + + + | Result panel 1141 | + + + + + +-------+ + + | | 2022-10-06 | [facility] | 100 | (missing) | (missing) | | (unavailable | 05:00:08 | [facility] | | | | + + + +-------+ + + + + | Result panel 1142 | + + + + + + + + + | | 2022-10-06 | [facility] | NORMAL | (missing) | (missing) | | (unavailable | 05:00:08 | [facility] | | | | + + + + + + + + + | Result panel 1143 | + + + + + + + + + | | 2022-10-06 | [facility] | NEGATIVE | (missing) | (missing) | | (unavailable | 05:00:08 | [facility] | | | | + + + + + + + + + | Result panel 1144 | + + + + + + + + + | | 2022-10-06 | [facility] | NEGATIVE | (missing) | (missing) | | (unavailable | 05:00:08 | [facility] | | | | + + + + + + + + + | Result panel 1145 | + + + + + +-------+ + + | | 2022-10-06 | [facility] | 2-3 | (missing) | (missing) | | (unavailable | 05:00:08 | [facility] | | | + + + +-------+ + + + + | Result panel 1146 | + + + + + +-------+ + + | | 2022-10-06 | [facility] | 0-1 | (missing) | (missing) | | (unavailable | 05:00:08 | [facility] | | | | + + + +-------+ + + + + | Result panel 1147 | + + + + + +-----+ + + | | 2022-10-06 | [facility] | 0 | (missing) | (missing) | | (unavailable | 05:00:08 | [facility] | | | | + + + +-----+ + + + + | Result panel 1148 | + + + + + +------+ + + | | 2022-10-06 | [facility] | No | (missing) | (missing) | | (unavailable | 05:00:08 [facility] | | | | + + + +------+ + + + + | Result panel 1149 | + + + + + + + + + | | 2022-10-06 | [facility] | NEGATIVE | (missing) | (missing) | | (unavailable | 05:00:08 | [facility] | | | | + + + + + + + + + | Result panel 1150 | + + + + + + + + + | | 2022-10-06 | [facility] | NEGATIVE | (missing) | (missing) | | (unavailable | 05:20:08 | [facility] | | | | + + + + + + + + + | Result panel 1151 | + + + + + + + + + | | 2022-10-06 | [facility] | NEGATIVE | (missing) | (missing) | | (unavailable | 05:20:08 | [facility] | | | | + + + + + + + + + | Result panel 1152 | + + + + + + + + + | | 2022-10-06 | [facility] | NEGATIVE | (missing) | (missing) | | (unavailable | 05:20:08 | [facility] | | | | + + + + + + + + + | Result panel 1153 | + + + + + + + + + | | 2022-10-06 | [facility] | NEGATIVE | (missing) | (missing) | | (unavailable | 05:20:08 | [facility] | | | | + + + + + + + + + | Result panel 1154 | + + + + + + + + + | | 2022-10-06 | [facility] | NEGATIVE | (missing) | (missing) | | (unavailable | 05:20:08 | [facility] | | | | + + + + + + + + + | Result panel 1155 | + + + + + + + + + | | 2022-10-06 | [facility] | NEGATIVE | (missing) | (missing) | | (unavailable | 05:20:08 | [facility] | | | | + + + + + + + + + | Result panel 1156 | + + + + + + + + + | | 2022-10-06 | [facility] | NEGATIVE | (missing) | (missing) | | (unavailable | 05:20:08 | [facility] | | | | + + + + + + + + + | Result panel 1157 | + + + + + + + + + | | 2022-10-06 | [facility] | NEGATIVE | (missing) | (missing) | | (unavailable | 05:20:08 | [facility] | | | | + + + + + + + + + | Result panel 1158 | + + + + + + + + + | | 2022-10-06 | [facility] | NEGATIVE | (missing) | (missing) | | (unavailable | 05:20:08 [facility] | | | | + + + + + + + + + | Result panel 1159 | + + + + + + + + + | | 2022-10-06 | [facility] | NEGATIVE | (missing) | (missing) | | (unavailable | 05:20:08 | [facility] | | | | + + + + + + + + + | Result panel 1160 | + + + + + + + + + | | 2022-10-06 | [facility] | NEGATIVE | (missing) | (missing) | | (unavailable | 05:20:08 | [facility] | | | | + + + + + + + + + | Result panel 1161 | + + + + + + + + + | | 2022-10-06 | [facility] | NEGATIVE | (missing) | (missing) | | (unavailable | 05:20:08 | [facility] | | | | + + + + + + + + + | Result panel 1162 | + + + + + +---------+ + + | | 2022-10-06 | [facility] | 7.301 | (missing) | (missing) | | (unavailable | 05:40:08 | [facility] | | | + + + +---------+ + + + + | Result panel 1163 | + + + + + +---------+ + + | | 2022-10-06 | [facility] | 7.301 | (missing) | (missing) | | (unavailable | 05:40:08 | [facility] | | | | + + + +---------+ + + + + | Result panel 1164 | + + + + + +-------+ + + | | 2022-10-06 | [facility] | 6.5 | (missing) | (missing) | | (unavailable | 05:40:08 [facility] | | | + + + +-------+ + + + + | Result panel 1165 | + + + + + +--------+ + + | | 2022-10-06 | [facility] | 3.50 | (missing) | (missing) | | (unavailable | 05:40:08 [facility] | | | + + + +--------+ + + + + | Result panel 1166 | + + + + + +--------+ + + | | 2022-10-06 | [facility] | 10.2 | (missing) | (missing) | | (unavailable | 05:40:08 [facility] | | | + + + +--------+ + + + + | Result panel 1167 | + + + + + +--------+ + + | | 2022-10-06 | [facility] | 31.9 | (missing) | (missing) | | (unavailable | 05:40:08 [facility] | | | + + + +--------+ + + + + | Result panel 1168 | + + + + + +--------+ + + | | 2022-10-06 | [facility] | 91.2 | (missing) | (missing) | | (unavailable | 05:40:08 [facility] | | | + + + +--------+ + + + + | Result panel 1169 | + + + + + +--------+ + + | | 2022-10-06 | [facility] | 29.3 | (missing) | (missing) | | (unavailable | 05:40:08 [facility] | | | + + + +--------+ + + + + | Result panel 1170 | + + + + + +--------+ + + | | 2022-10-06 | [facility] | 32.1 | (missing) | (missing) | | (unavailable | 05:40:08 [facility] | | | + + + +--------+ + + + + | Result panel 1171 | + + + + + +--------+ + + | | 2022-10-06 | [facility] | 14.2 | (missing) | (missing) | | (unavailable | 05:40:08 [facility] | | | + + + +--------+ + + + + | Result panel 1172 | + + + + + +-------+ + + | | 2022-10-06 | [facility] | 362 | (missing) | (missing) | | (unavailable | 05:40:08 [facility] | | | + + + +-------+ + + + + | Result panel 1173 | + + + + + +--------+ + + | | 2022-10-06 | [facility] | 51.4 | (missing) | (missing) | | (unavailable | 05:40:08 [facility] | | | + + + +--------+ + + + + | Result panel 1174 | + + + + + +--------+ + + | | 2022-10-06 | [facility] | 39.7 | (missing) | (missing) | | (unavailable | 05:40:08 [facility] | | | + + + +--------+ + + + + | Result panel 1175 | + + + + + +-------+ + + | | 2022-10-06 | [facility] | 6.6 | (missing) | (missing) | | (unavailable | 05:40:08 [facility] | | | + + + +-------+ + + + + | Result panel 1176 | + + + + + +-------+ + + | | 2022-10-06 | [facility] | 1.7 | (missing) | (missing) | | (unavailable | 05:40:08 [facility] | | | + + + +-------+ + + + + | Result panel 1177 | + + + + + +-------+ + + | | 2022-10-06 | [facility] | 0.6 | (missing) | (missing) | | (unavailable | 05:40:08 [facility] | | | + + + +-------+ + + + + | Result panel 1178 | + + + + + +---------+ + + | | 2022-10-06 | [facility] | 7.301 | (missing) | (missing) | | (unavailable | 05:40:08 [facility] | | | | + + + +---------+ + + + + | Result panel 1179 | + + + + + +-------+---------+ + | | 2022-10-06 | [facility] | 474 | mg/dL | (missing) | | (unavailable | 05:40:08 [facility] | | | | + + + +-------+---------+ + + + | Result panel 1180 | + + + + + +------+---------+ + | | 2022-10-06 | [facility] | 47 | mg/dL | (missing) | | (unavailable | 05:40:08 [facility] | | | | + + + +------+---------+ + + + | Result panel 1181 | + + + + + +--------+---------+ + | | 2022-10-06 | [facility] | 1.96 | mg/dL | (missing) | | (unavailable | 05:40:08 [facility] | | | | + + + +--------+---------+ + + + | Result panel 1182 | + + + + + +------+ + + | | 2022-10-06 | [facility] | 36 | (missing) | (missing) | | (unavailable | 05:40:08 [facility] | | | | + + + +------+ + + + + | Result panel 1183 | + + + + + +---------+ + + | | 2022-10-06 | [facility] | 23.97 | (missing) | (missing) | | (unavailable | 05:40:08 [facility] | | | | + + + +---------+ + + + + | Result panel 1184 | + + + + + +-------+ + + | | 2022-10-06 | [facility] | 130 | (missing) | (missing) | | (unavailable | 05:40:08 [facility] | | | | + + + +-------+ + + + + | Result panel 1185 | + + + + + +-------+ + + | | 2022-10-06 | [facility] | 4.4 | (missing) | (missing) | | (unavailable | 05:40:08 [facility] | | | | + + + +-------+ + + + + | Result panel 1186 | + + + + + +------+ + + | | 2022-10-06 | [facility] | 98 | (missing) | (missing) | | (unavailable | 05:40:08 [facility] | | | | + + + +------+ + + + + | Result panel 1187 | + + + + + +------+ + + | | 2022-10-06 | [facility] | 21 | (missing) | (missing) | | (unavailable | 05:40:08 | [facility] | | | | + + + +------+ + + + + | Result panel 1188 | + + + + + +--------+ + + | | 2022-10-06 | [facility] | 15.4 | (missing) | (missing) | | (unavailable | 05:40:08 | [facility] | | | | + + + +--------+ + + + + | Result panel 1189 | + + + + + +-------+---------+ + | | 2022-10-06 | [facility] | 9.1 | mg/dL | (missing) | | (unavailable | 05:40:08 | [facility] | | | | + + + +-------+---------+ + + + | Result panel 1190 | + + + + + + + + + | | 2022-10-06 | [facility] | NEGATIVE | (missing) | (missing) | | (unavailable | 05:40:08 | [facility] | | | | + + + + + + + + + | Result panel 1191 | + + + + + +-------+ + + | | 2022-10-10 | [facility] | 6.0 | (missing) | (missing) | | (unavailable | 23:38:08 | [facility] | | | | + + + +-------+ + + + + | Result panel 1192 | + + + + + +--------+ + + | | 2022-10-10 | [facility] | 3.74 | (missing) | (missing) | | (unavailable | 23:38:08 | [facility] | | | | + + + +--------+ + + + + | Result panel 1193 | + + + + + +--------+ + + | | 2022-10-10 | [facility] | 10.7 | (missing) | (missing) | | (unavailable | 23:38:08 | [facility] | | | | + + + +--------+ + + + + | Result panel 1194 | + + + + + +--------+ + + | | 2022-10-10 | [facility] | 33.9 | (missing) | (missing) | | (unavailable | 23:38:08 | [facility] | | | | + + + +--------+ + + + + | Result panel 1195 | + + + + + +--------+ + + | | 2022-10-10 | [facility] | 90.6 | (missing) | (missing) | | (unavailable | 23:38:08 | [facility] | | | | + + + +--------+ + + + + | Result panel 1196 | + + + + + +--------+ + + | | 2022-10-10 | [facility] | 28.8 | (missing) | (missing) | | (unavailable | 23:38:08 | [facility] | | | | + + + +--------+ + + + + | Result panel 1197 | + + + + + +--------+ + + | | 2022-10-10 | [facility] | 31.7 | (missing) | (missing) | | (unavailable | 23:38:08 | [facility] | | | | + + + +--------+ + + + + | Result panel 1198 | + + + + + +--------+ + + | | 2022-10-10 | [facility] | 14.7 | (missing) | (missing) | | (unavailable | 23:38:08 | [facility] | | | | + + + +--------+ + + + + | Result panel 1199 | + + + + + +-------+ + + | | 2022-10-10 | [facility] | 361 | (missing) | (missing) | | (unavailable | 23:38:08 | [facility] | | | | + + + +-------+ + + + + | Result panel 1200 | + + + + + +--------+ + + | | 2022-10-10 | [facility] | 51.9 | (missing) | (missing) | | (unavailable | 23:38:08 | [facility] | | | | + + + +--------+ + + + + | Result panel 1201 | + + + + + +--------+ + + | | 2022-10-10 | [facility] | 37.8 | (missing) | (missing) | | (unavailable | 23:38:08 | [facility] | | | | + + + +--------+ + + + + | Result panel 1202 | + + + + + +-------+ + + | | 2022-10-10 | [facility] | 6.9 | (missing) | (missing) | | (unavailable | 23:38:08 | [facility] | | | | + + + +-------+ + + + + | Result panel 1203 | + + + + + +-------+ + + | | 2022-10-10 | [facility] | 2.6 | (missing) | (missing) | | (unavailable | 23:38:08 | [facility] | | | | + + + +-------+ + + + + | Result panel 1204 | + + + + + +-------+ + + | | 2022-10-10 | [facility] | 0.8 | (missing) | (missing) | | (unavailable | 23:38:08 [facility] | | | | + + + +-------+ + + + + | Result panel 1205 | + + + + + +-------+---------+ + | | 2022-10-10 | [facility] | 476 | mg/dL | (missing) | | (unavailable | 23:38:08 [facility] | | | | + + + +-------+---------+ + + + | Result panel 1206 | + + + + + +------+---------+ + | | 2022-10-10 | [facility] | 33 | mg/dL | (missing) | | (unavailable | 23:38:08 [facility] | | | + + + +------+---------+ + + + | Result panel 1207 | + + + + + +--------+---------+ + | | 2022-10-10 | [facility] | 1.95 | mg/dL | (missing) | | (unavailable | 23:38:08 [facility] | | | + + + +--------+---------+ + + + | Result panel 1208 | + + + + + +------+ + + | | 2022-10-10 | [facility] | 36 | (missing) | (missing) | | (unavailable | 23:38:08 [facility] | | | + + + +------+ + + + + | Result panel 1209 | + + + + + +---------+ + + | | 2022-10-10 | [facility] | 16.92 | (missing) | (missing) | | (unavailable | 23:38:08 [facility] | | | + + + +---------+ + + + + | Result panel 1210 | + + + + + +-------+ + + | | 2022-10-10 | [facility] | 135 | (missing) | (missing) | | (unavailable | 23:38:08 [facility] | | | + + + +-------+ + + + + | Result panel 1211 | + + + + + +-------+ + + | | 2022-10-10 | [facility] | 4.3 | (missing) | (missing) | | (unavailable | 23:38:08 [facility] | | | + + + +-------+ + + + + | Result panel 1212 | + + + + + +------+ + + | | 2022-10-10 | [facility] | 97 | (missing) | (missing) | | (unavailable | 23:38:08 [facility] | | | + + + +------+ + + + + | Result panel 1213 | + + + + + +------+ + + | | 2022-10-10 | [facility] | 21 | (missing) | (missing) | | (unavailable | 23:38:08 [facility] | | | + + + +------+ + + + + | Result panel 1214 | + + + + + +--------+ + + | | 2022-10-10 | [facility] | 21.3 | (missing) | (missing) | | (unavailable | 23:38:08 [facility] | | | + + + +--------+ + + + + | Result panel 1215 | + + + + + +-------+---------+ + | | 2022-10-10 | [facility] | 9.2 | mg/dL | (missing) | | (unavailable | 23:38:08 [facility] | | | + + + +-------+---------+ + + + | Result panel 121 | + + + + + +-------+ + + | | 2022-10-10 | [facility] | 8.5 | (missing) | (missing) | | (unavailable | 23:38:08 [facility] | | | + + + +-------+ + + + + | Result panel 1217 | + + + + + +-------+ + + | | 2022-10-10 | [facility] | 3.8 | (missing) | (missing) | | (unavailable | 23:38:08 [facility] | | | + + + +-------+ + + + + | Result panel 1218 | + + + + + +-------+ + + | | 2022-10-10 | [facility] | 4.7 | (missing) | (missing) | | (unavailable | 23:38:08 [facility] | | | + + + +-------+ + + + + | Result panel 1219 | + + + + + +--------+ + + | | 2022-10-10 | [facility] | 0.81 | (missing) | (missing) | | (unavailable | 23:38:08 [facility] | | | + + + +--------+ + + + + | Result panel 1220 | + + + + + +-------+ + + | | 2022-10-10 | [facility] | 0.3 | (missing) | (missing) | | (unavailable | 23:38:08 [facility] | | | + + + +-------+ + + + + | Result panel 1221 | + + + + + +------+ + + | | 2022-10-10 | [facility] | 30 | (missing) | (missing) | | (unavailable | 23:38:08 [facility] | | | + + + +------+ + + + + | Result panel 1222 | + + + + + +------+ + + | | 2022-10-10 | [facility] | 33 | (missing) | (missing) | | (unavailable | 23:38:08 [facility] | | | + + + +------+ + + + + | Result panel 1223 | + + + + + +-------+ + + | | 2022-10-10 | [facility] | 212 | (missing) | (missing) | | (unavailable | 23:38:08 [facility] | | | + + + +-------+ + + + + | Result panel 1224 | + + + + + +-------+ + + | | 2022-10-10 | [facility] | 100 | (missing) | (missing) | | (unavailable | 23:38:08 [facility] | | | + + + +-------+ + + + + | Result panel 1225 | + + + + + + + + + | | 2022-10-10 | [facility] | NEGATIVE | (missing) | (missing) | | (unavailable | 23:38:08 [facility] | | | + + + + + + + + + | Result panel 1226 | + + + + + +-------+ + + | | 2022-10-10 | [facility] | 100 | (missing) | (missing) | | (unavailable | 23:38:08 [facility] | | | + + + +-------+ + + + + | Result panel 1227 | + + + + + + + + + | | 2022-10-10 | [facility] | NEGATIVE | (missing) | (missing) | | (unavailable | 23:38:08 [facility] | | | + + + + + + + + + | Result panel 1228 | + + + + + + + + + | | 2022-10-11 | [facility] | YELLOW | (missing) | (missing) | | (unavailable | 00:06:08 [facility] | | | + + + + + + + + + | Result panel 1229 | + + + + + +---------+ + + | | 2022-10-11 | [facility] | CLEAR | (missing) | (missing) | | (unavailable | 00:06:08 [facility] | | | + + + +---------+ + + + + | Result panel 1230 | + + + + + + + + + | | 2022-10-11 | [facility] | >=1000 | (missing) | (missing) | | (unavailable | 00:06:08 [facility] | | | + + + + + + + + + | Result panel 1231 | + + + + + + + + + | | 2022-10-11 | [facility] | NEGATIVE | (missing) | (missing) | | (unavailable | 00:06:08 [facility] | | | + + + + + + + + + | Result panel 1232 | + + + + + + + + + | | 2022-10-11 | [facility] | NEGATIVE | (missing) | (missing) | | (unavailable | 00:06:08 [facility] | | | + + + + + + + + + | Result panel 1233 | + + + + + +---------+ + + | | 2022-10-11 | [facility] | 1.010 | (missing) | (missing) | | (unavailable | 00:06:08 [facility] | | | + + + +---------+ + + + + | Result panel 1234 | + + + + + + + + + | | 2022-10-11 | [facility] | TRACE-I | (missing) | (missing) | | (unavailable | 00:06:08 [facility] | | | + + + + + + + + + | Result panel 1235 | + + + + + +-------+ + + | | 2022-10-11 | [facility] | 6.0 | (missing) | (missing) | | (unavailable | 00:06:08 [facility] | | | + + + +-------+ + + + + | Result panel 1236 | + + + + + +-------+ + + | | 2022-10-11 | [facility] | 100 | (missing) | (missing) | | (unavailable | 00:06:08 [facility] | | | + + + +-------+ + + + + | Result panel 1237 | + + + + + + + + + | | 2022-10-11 | [facility] | NORMAL | (missing) | (missing) | | (unavailable | 00:06:08 [facility] | | | + + + + + + + + + | Result panel 1238 | + + + + + + + + + | | 2022-10-11 | [facility] | NEGATIVE | (missing) | (missing) | | (unavailable | 00:06:08 [facility] | | | + + + + + + + + + | Result panel 1239 | + + + + + + + + + | | 2022-10-11 | [facility] | NEGATIVE | (missing) | (missing) | | (unavailable | 00:06:08 [facility] | | | + + + + + + + + + | Result panel 1240 | + + + + + +-------+ + + | | 2022-10-11 | [facility] | 2-3 | (missing) | (missing) | | (unavailable | 00:06:08 [facility] | | | + + + +-------+ + + + + | Result panel 1241 | + + + + + +---------+ + + | | 2022-10-11 | [facility] | 12-20 | (missing) | (missing) | | (unavailable | 00:06:08 [facility] | | | + + + +---------+ + + + + | Result panel 1242 | + + + + + + + + + | | 2022-10-11 | [facility] | SQUAMOUS 1+ | (missing) | (missing) | | (unavailable | 00:06:08 | [facility] | | | + + + + + + + + + | Result panel 1243 | + + + + + + + + + | | 2022-10-11 | [facility] | NONE SEEN | (missing) | (missing) | | (unavailable | 00:06:08 [facility] | | | + + + + + + + + + | Result panel 1244 | + + + + + +--------+ + + | | 2022-10-11 | [facility] | RARE | (missing) | (missing) | | (unavailable | 00:06:08 [facility] | | | + + + +--------+ + + + + | Result panel 1245 | + + + + + + + + + | | 2022-10-11 | [facility] | NONE SEEN | (missing) | (missing) | | (unavailable | 00::08 | [facility] | | | + + + + + + + + + | Result panel 1246 | + + + + + +-------+ + + | | 2022-10-11 | [facility] | Yes | (missing) | (missing) | | (unavailable | 00:06:08 | [facility] | | | + + + +-------+ + + + + | Result panel 1247 | + + + + + + + + + | | 2022-10-11 | [facility] | CLEAN CATCH | (missing) | (missing) | | (unavailable | 00:06:08 | [facility] | | | + + + + + + + + + | Result panel 1248 | + + + + + + + + + | | 2022-10-11 | [facility] | NEGATIVE | (missing) | (missing) | | (unavailable | 00:06:08 [facility] | | | + + + + + + + + + | Result panel 1249 | + + + + + + + + + | | 2022-10-11 | [facility] | NEGATIVE | (missing) | (missing) | | (unavailable | 00:06:08 | [facility] | | | + + + + + + + + + | Result panel 1250 | + + + + + + + + + | | 2022-10-11 | [facility] | NEGATIVE | (missing) | (missing) | | (unavailable | 00:06:08 [facility] | | | + + + + + + + + + | Result panel 1251 | + + + + + + + + + | | 2022-10-11 | [facility] | NEGATIVE | (missing) | (missing) | | (unavailable | 00:06:08 [facility] | | | + + + + + + + + + | Result panel 1252 | + + + + + + + + + | | 2022-10-11 | [facility] | NEGATIVE | (missing) | (missing) | | (unavailable | 00:06:08 [facility] | | | + + + + + + + + + | Result panel 1253 | + + + + + + + + + | | 2022-10-11 | [facility] | NEGATIVE | (missing) | (missing) | | (unavailable | 00:06:08 [facility] | | | + + + + + + + + + | Result panel 1254 | + + + + + + + + + | | 2022-10-11 | [facility] | NEGATIVE | (missing) | (missing) | | (unavailable | 00:06:08 [facility] | | | + + + + + + + + + | Result panel 1255 | + + + + + + + + + | | 2022-10-11 | [facility] | NEGATIVE | (missing) | (missing) | | (unavailable | 00:06:08 [facility] | | | + + + + + + + + + | Result panel 1256 | + + + + + + + + + | | 2022-10-11 | [facility] | NEGATIVE | (missing) | (missing) | | (unavailable | 00:06:08 [facility] | | | | + + + + + + + + + | Result panel 1257 | + + + + + + + + + | | 2022-10-11 | [facility] | NEGATIVE | (missing) | (missing) | | (unavailable | 00:06:08 [facility] | | | + + + + + + + + + | Result panel 1258 | + + + + + + + + + | | 2022-10-11 | [facility] | NEGATIVE | (missing) | (missing) | | (unavailable | 00:06:08 [facility] | | | + + + + + + + + + | Result panel 1259 | + + + + + + + + + | | 2022-10-11 | [facility] | NEGATIVE | (missing) | (missing) | | (unavailable | 00::08 | [facility] | | | + + + + + + + + + | Result panel 1260 | + + + + + + + + + | | 2022-10-11 | [facility] | NEGATIVE | (missing) | (missing) | | (unavailable | 00:06:08 [facility] | | | + + + + + + + + + | Result panel 1261 | + + + + + + + + + | | 2022-10-11 | [facility] | NEGATIVE | (missing) | (missing) | | (unavailable | 00:06:08 [facility] | | | + + + + + + + + + | Result panel 1262 | + + + + + + + + + | | 2022-10-11 | [facility] | NEGATIVE | (missing) | (missing) | | (unavailable | 00:06:08 [facility] | | | | + + + + + + + + + | Result panel 1263 | + + + + + + + + + | | 2022-10-11 | [facility] | NEGATIVE | (missing) | (missing) | | (unavailable | 00:06:08 [facility] | | | | + + + + + + + + + | Result panel 1264 | + + + + + + + + + | | 2022-10-11 | [facility] | NEGATIVE | (missing) | (missing) | | (unavailable | 00:06:08 [facility] | | | | + + + + + + + + + | Result panel 1265 | + + + + + + + + + | | 2022-10-11 | [facility] | NEGATIVE | (missing) | (missing) | | (unavailable | 00:06:08 [facility] | | | | + + + + + + + + + | Result panel 1266 | + + + + + + + + + | | 2022-10-11 | [facility] | NEGATIVE | (missing) | (missing) | | (unavailable | 00:06:08 [facility] | | | | + + + + + + + + + | Result panel 1267 | + + + + + + + + + | | 2022-10-11 | [facility] | NEGATIVE | (missing) | (missing) | | (unavailable | 00:06:08 [facility] | | | | + + + + + + + + + | Result panel 1268 | + + + + + + + + + | | 2022-10-11 | [facility] | NEGATIVE | (missing) | (missing) | | (unavailable | 00:06:08 [facility] | | | | + + + + + + + + + | Result panel 1269 | + + + + + + + + + | | 2022-10-11 | [facility] | NEGATIVE | (missing) | (missing) | | (unavailable | 00:06:08 [facility] | | | | + + + + + + + + + | Result panel 1270 | + + + + + + + + + | | 2022-10-11 | [facility] | NEGATIVE | (missing) | (missing) | | (unavailable | 00:06:08 [facility] | | | | + + + + + + + + + | Result panel 1271 | + + + + + + + + + | | 2022-10-11 | [facility] | NEGATIVE | (missing) | (missing) | | (unavailable | 00::08 | [facility] | | | | + + + + + + + + + | Result panel 1272 | + + + + + + + + + | | 2022-10-11 | [facility] | NEGATIVE | (missing) | (missing) | | (unavailable | 00:06:08 [facility] | | | | + + + + + + + + + | Result panel 1273 | + + + + + + + + + | | 2022-10-11 | [facility] | NEGATIVE | (missing) | (missing) | | (unavailable | 00:06:08 [facility] | | | + + + + + + + + + | Result panel 1274 | + + + + + +-------+ + + | | 2022-10-11 | [facility] | 318 | (missing) | (missing) | | (unavailable | 01:40:08 | [facility] | | | + + + +-------+ + + + + | Result panel 1275 | + + + + + +-------+ + + | | 2022-10-11 | [facility] | 318 | (missing) | (missing) | | (unavailable | 01:40:08 [facility] | | | + + + +-------+ + + + + | Result panel 1276 | + + + + + + + + + | | 2022-10-30 | [facility] | < 0.27 | (missing) | (missing) | | (unavailable | 01:26:07 [facility] | | | + + + + + + + + + | Result panel 1277 | + + + + + +-------+---------+ + | | 2022-10-30 | [facility] | 2.3 | mg/dL | (missing) | | (unavailable | 01:26:07 [facility] | | | + + + +-------+---------+ + + + | Result panel 1278 | + + + + + +-------+ + + | | 2022-10-30 | [facility] | 9.5 | (missing) | (missing) | | (unavailable | 01:26:07 [facility] | | | + + + +-------+ + + + + | Result panel 1279 | + + + + + + + + + | | 2022-10-30 | [facility] | NEGATIVE | (missing) | (missing) | | (unavailable | 01:26:07 [facility] | | | | + + + + + + + + + | Result panel 1280 | + + + + + +-------+---------+ + | | 2022-10-30 | [facility] | 2.3 | mg/dL | (missing) | | (unavailable | 01:26:08 [facility] | | | + + + +-------+---------+ + + + | Result panel 1281 | + + + + + +-------+ + + | | 2022-10-30 | [facility] | 9.5 | (missing) | (missing) | | (unavailable | 01:26:08 [facility] | | | + + + +-------+ + + + + | Result panel 1282 | + + + + + + + + + | | 2022-10-30 | [facility] | NEGATIVE | (missing) | (missing) | | (unavailable | 01:26:08 [facility] | | | + + + + + + + + + | Result panel 1283 | + + + + + +-------+ + + | | 2022-10-30 | [facility] | 7.3 | (missing) | (missing) | | (unavailable | 01:26:08 [facility] | | | + + + +-------+ + + + + | Result panel 1284 | + + + + + +--------+ + + | | 2022-10-30 | [facility] | 3.67 | (missing) | (missing) | | (unavailable | 01:26:08 [facility] | | | + + + +--------+ + + + + | Result panel 1285 | + + + + + +--------+ + + | | 2022-10-30 | [facility] | 11.1 | (missing) | (missing) | | (unavailable | 01:26:08 [facility] | | | + + + +--------+ + + + + | Result panel 1286 | + + + + + +--------+ + + | | 2022-10-30 | [facility] | 32.9 | (missing) | (missing) | | (unavailable | 01:26:08 [facility] | | | + + + +--------+ + + + + | Result panel 1287 | + + + + + +--------+ + + | | 2022-10-30 | [facility] | 89.6 | (missing) | (missing) | | (unavailable | 01:26:08 [facility] | | | + + + +--------+ + + + + | Result panel 1288 | + + + + + +--------+ + + | | 2022-10-30 | [facility] | 30.2 | (missing) | (missing) | | (unavailable | 01:26:08 [facility] | | | + + + +--------+ + + + + | Result panel 1289 | + + + + + +--------+ + + | | 2022-10-30 | [facility] | 33.7 | (missing) | (missing) | | (unavailable | 01:26:08 [facility] | | | + + + +--------+ + + + + | Result panel 1290 | + + + + + +--------+ + + | | 2022-10-30 | [facility] | 14.9 | (missing) | (missing) | | (unavailable | 01:26:08 [facility] | | | + + + +--------+ + + + + | Result panel 1291 | + + + + + +-------+ + + | | 2022-10-30 | [facility] | 375 | (missing) | (missing) | | (unavailable | 01:26:08 [facility] | | | + + + +-------+ + + + + | Result panel 1292 | + + + + + +--------+ + + | | 2022-10-30 | [facility] | 48.3 | (missing) | (missing) | | (unavailable | ::08 | [facility] | | | | + + + +--------+ + + + + | Result panel 1293 | + + + + + +--------+ + + | | 2022-10-30 | [facility] | 41.1 | (missing) | (missing) | | (unavailable | 01::08 | [facility] | | | + + + +--------+ + + + + | Result panel 1294 | + + + + + +-------+ + + | | 2022-10-30 | [facility] | 8.2 | (missing) | (missing) | | (unavailable | 01:26:08 [facility] | | | + + + +-------+ + + + + | Result panel 1295 | + + + + + +-------+ + + | | 2022-10-30 | [facility] | 1.4 | (missing) | (missing) | | (unavailable | 01::08 | [facility] | | | | + + + +-------+ + + + + | Result panel 1296 | + + + + + +-------+ + + | | 2022-10-30 | [facility] | 1.0 | (missing) | (missing) | | (unavailable | 01::08 | [facility] | | | | + + + +-------+ + + + + | Result panel 1297 | + + + + + + + + + | | 2022-10-30 | [facility] | < 0.27 | (missing) | (missing) | | (unavailable | 01::08 | [facility] | | | | + + + + + + + + + | Result panel 1298 | + + + + + + + + + | | 2022-10-30 | [facility] | NONE SEEN | (missing) | (missing) | | (unavailable | 02:00:07 | [facility] | | | | + + + + + + + + + | Result panel 1299 | + + + + + + + + + | | 2022-10-30 | [facility] | NONE SEEN | (missing) | (missing) | | (unavailable | 02:00:07 | [facility] | | | | + + + + + + + + + | Result panel 1300 | + + + + + + + + + | | 2022-10-30 | [facility] | NONE SEEN | (missing) | (missing) | | (unavailable | 02:00:07 [facility] | | | | + + + + + + + + + | Result panel 1301 | + + + + + + + + + | | 2022-10-30 | [facility] | CLEAN CATCH | (missing) | (missing) | | (unavailable | 02:00:07 | [facility] | | | | + + + + + + + + + | Result panel 1302 | + + + + + + + + + | | 2022-10-30 | [facility] | NONE SEEN | (missing) | (missing) | | (unavailable | 02:00:08 [facility] | | | | + + + + + + + + + | Result panel 1303 | + + + + + +------+ + + | | 2022-10-30 | [facility] | No | (missing) | (missing) | | (unavailable | 02:00:08 [facility] | | | | + + + +------+ + + + + | Result panel 1304 | + + + + + + + + + | | 2022-10-30 | [facility] | CLEAN CATCH | (missing) | (missing) | | (unavailable | 02:00:08 | [facility] | | | | + + + + + + + + + | Result panel 1305 | + + + + + + + + + | | 2022-10-30 | [facility] | YELLOW | (missing) | (missing) | | (unavailable | 02:00:08 [facility] | | | | + + + + + + + + + | Result panel 1306 | + + + + + +---------+ + + | | 2022-10-30 | [facility] | CLEAR | (missing) | (missing) | | (unavailable | 02:00:08 [facility] | | | + + + +---------+ + + + + | Result panel 1307 | + + + + + +---------+ + + | | 2022-10-30 | [facility] | LARGE | (missing) | (missing) | | (unavailable | 02::08 | [facility] | | | | + + + +---------+ + + + + | Result panel 1308 | + + + + + + + + + | | 2022-10-30 | [facility] | NEGATIVE | (missing) | (missing) | | (unavailable | 02:00:08 [facility] | | | | + + + + + + + + + | Result panel 1309 | + + + + + +---------+ + + | | 2022-10-30 | [facility] | TRACE | (missing) | (missing) | | (unavailable | 02:00:08 [facility] | | | | + + + +---------+ + + + + | Result panel 1310 | + + + + + +---------+ + + | | 2022-10-30 | [facility] | 1.015 | (missing) | (missing) | | (unavailable | 02:00:08 | [facility] | | | | + + + +---------+ + + + + | Result panel 1311 | + + + + + + + + + | | 2022-10-30 | [facility] | TRACE-I | (missing) | (missing) | | (unavailable | 02::08 | [facility] | | | | + + + + + + + + + | Result panel 1312 | + + + + + +-------+ + + | | 2022-10-30 | [facility] | 7.0 | (missing) | (missing) | | (unavailable | 02:00:08 | [facility] | | | | + + + +-------+ + + + + | Result panel 1313 | + + + + + +-------+ + + | | 2022-10-30 | [facility] | 100 | (missing) | (missing) | | (unavailable | 02:00:08 | [facility] | | | | + + + +-------+ + + + + | Result panel 1314 | + + + + + + + + + | | 2022-10-30 | [facility] | NORMAL | (missing) | (missing) | | (unavailable | 02:00:08 | [facility] | | | | + + + + + + + + + | Result panel 1315 | + + + + + + + + + | | 2022-10-30 | [facility] | NEGATIVE | (missing) | (missing) | | (unavailable | 02:00:08 | [facility] | | | | + + + + + + + + + | Result panel 1316 | + + + + + + + + + | | 2022-10-30 | [facility] | NEGATIVE | (missing) | (missing) | | (unavailable | 02:00:08 | [facility] | | | | + + + + + + + + + | Result panel 1317 | + + + + + +-------+ + + | | 2022-10-30 | [facility] | 2-3 | (missing) | (missing) | | (unavailable | 02:00:08 | [facility] | | | | + + + +-------+ + + + + | Result panel 1318 | + + + + + +-------+ + + | | 2022-10-30 | [facility] | 0-1 | (missing) | (missing) | | (unavailable | 02:00:08 | [facility] | | | | + + + +-------+ + + + + | Result panel 1319 | + + + + + + + + + | | 2022-10-30 | [facility] | SQUAMOUS 2+ | (missing) | (missing) | | (unavailable | 02:00:08 | [facility] | | | | + + + + + + + + + | Result panel 1320 | + + + + + + + + + | | 2022-10-30 | [facility] | NONE SEEN | (missing) | (missing) | | (unavailable | 02:00:08 | [facility] | | | | + + + + + + + + + | Result panel 1321 | + + + + + + + + + | | 2022-10-30 | [facility] | NONE SEEN | (missing) | (missing) | | (unavailable | 02:00:08 | [facility] | | | | + + + + + + + + + | Result panel 1322 | + + + + + +-------+---------+ + | | 2022-10-30 | [facility] | 270 | mg/dL | (missing) | | (unavailable | 06:38:08 | [facility] | | | | + + + +-------+---------+ + + + | Result panel 1323 | + + + + + +------+---------+ + | | 2022-10-30 | [facility] | 38 | mg/dL | (missing) | | (unavailable | :38:08 | [facility] | | | | + + + +------+---------+ + + + | Result panel 1324 | + + + + + +--------+---------+ + | | 2022-10-30 | [facility] | 2.83 | mg/dL | (missing) | | (unavailable | 06:38:08 | [facility] | | | | + + + +--------+---------+ + + + | Result panel 1325 | + + + + + +------+ + + | | 2022-10-30 | [facility] | 23 | (missing) | (missing) | | (unavailable | 06:38:08 | [facility] | | | | + + + +------+ + + + + | Result panel 1326 | + + + + + +---------+ + + | | 2022-10-30 | [facility] | 13.42 | (missing) | (missing) | | (unavailable | 06:38:08 | [facility] | | | | + + + +---------+ + + + + | Result panel 1327 | + + + + + +-------+ + + | | 2022-10-30 | [facility] | 139 | (missing) | (missing) | | (unavailable | 06:38:08 | [facility] | | | | + + + +-------+ + + + + | Result panel 1328 | + + + + + +-------+ + + | | 2022-10-30 | [facility] | 4.4 | (missing) | (missing) | | (unavailable | 06:38:08 | [facility] | | | | + + + +-------+ + + + + | Result panel 1329 | + + + + + +-------+ + + | | 2022-10-30 | [facility] | 104 | (missing) | (missing) | | (unavailable | 06:38:08 | [facility] | | | + + + +-------+ + + + + | Result panel 1330 | + + + + + +------+ + + | | 2022-10-30 | [facility] | 22 | (missing) | (missing) | | (unavailable | 06:38:08 | [facility] | | | + + + +------+ + + + + | Result panel 1331 | + + + + + +--------+ + + | | 2022-10-30 | [facility] | 17.4 | (missing) | (missing) | | (unavailable | 06:38:08 [facility] | | | + + + +--------+ + + + + | Result panel 1332 | + + + + + +-------+---------+ + | | 2022-10-30 | [facility] | 7.6 | mg/dL | (missing) | | (unavailable | 06:38:08 [facility] | | | + + + +-------+---------+ + + + | Result panel 1333 | + + + + + +-------+ + + | | 2022-10-30 | [facility] | 6.2 | (missing) | (missing) | | (unavailable | 06:38:08 [facility] | | | + + + +-------+ + + + + | Result panel 1334 | + + + + + +-------+ + + | | 2022-10-30 | [facility] | 2.9 | (missing) | (missing) | | (unavailable | 06:38:08 | [facility] | | | + + + +-------+ + + + + | Result panel 1335 | + + + + + +-------+ + + | | 2022-10-30 | [facility] | 3.3 | (missing) | (missing) | | (unavailable | 06:38:08 [facility] | | | + + + +-------+ + + + + | Result panel 1336 | + + + + + +--------+ + + | | 2022-10-30 | [facility] | 0.88 | (missing) | (missing) | | (unavailable | 06:38:08 [facility] | | + + + +--------+ + + + + | Result panel 1337 | + + + + + +-------+ + + | | 2022-10-30 | [facility] | 0.2 | (missing) | (missing) | | (unavailable | 06:38:08 [facility] | | + + + +-------+ + + + + | Result panel 1338 | + + + + + +------+ + + | | 2022-10-30 | [facility] | 19 | (missing) | (missing) | | (unavailable | 06:38:08 | [facility] | | | + + + +------+ + + + + | Result panel 1339 | + + + + + +------+ + + | | 2022-10-30 | [facility] | 22 | (missing) | (missing) | | (unavailable | 06:38:08 | [facility] | | | + + + +------+ + + + + | Result panel 1340 | + + + + + +-------+ + + | | 2022-10-30 | [facility] | 169 | (missing) | (missing) | | (unavailable | 06:38:08 | [facility] | | | + + + +-------+ + + + + | Result panel 1341 | + + + + + + + + + | | 2022-11-24 | [facility] | YELLOW | (missing) | (missing) | | (unavailable | 21:02:07 | [facility] | | | + + + + + + + + + | Result panel 1342 | + + + + + +---------+ + + | | 2022-11-24 | [facility] | CLEAR | (missing) | (missing) | | (unavailable | 21:02:07 | [facility] | | | + + + +---------+ + + + + | Result panel 1343 | + + + + + + + + + | | 2022-11-24 | [facility] | >=1000 | (missing) | (missing) | | (unavailable | 21:02:07 | [facility] | | | + + + + + + + + + | Result panel 1344 | + + + + + + + + + | | 2022-11-24 | [facility] | NEGATIVE | (missing) | (missing) | | (unavailable | 21:02:07 | [facility] | | | + + + + + + + + + | Result panel 1345 | + + + + + +---------+ + + | | 2022-11-24 | [facility] | TRACE | (missing) | (missing) | | (unavailable | 21:02:07 [facility] | | | + + + +---------+ + + + + | Result panel 1346 | + + + + + +---------+ + + | | 2022-11-24 | [facility] | 1.010 | (missing) | (missing) | | (unavailable | 21:02:07 [facility] | | | + + + +---------+ + + + + | Result panel 1347 | + + + + + + + + + | | 2022-11-24 | [facility] | TRACE-L | (missing) | (missing) | | (unavailable | 21:02:07 [facility] | | | + + + + + + + + + | Result panel 1348 | + + + + + +-------+ + + | | 2022-11-24 | [facility] | 6.0 | (missing) | (missing) | | (unavailable | 21:02:07 [facility] | | | + + + +-------+ + + + + | Result panel 1349 | + + + + + +-------+ + + | | 2022-11-24 | [facility] | 100 | (missing) | (missing) | | (unavailable | 21:02:07 [facility] | | | + + + +-------+ + + + + | Result panel 1350 | + + + + + + + + + | | 2022-11-24 | [facility] | NORMAL | (missing) | (missing) | | (unavailable | 21:02:07 [facility] | | | + + + + + + + + + | Result panel 1351 | + + + + + + + + + | | 2022-11-24 | [facility] | NEGATIVE | (missing) | (missing) | | (unavailable | 21:02:07 [facility] | | | + + + + + + + + + | Result panel 1352 | + + + + + + + + + | | 2022-11-24 | [facility] | NEGATIVE | (missing) | (missing) | | (unavailable | 21:02:07 [facility] | | | + + + + + + + + + | Result panel 1353 | + + + + + +-------+ + + | | 2022-11-24 | [facility] | 2-3 | (missing) | (missing) | | (unavailable | ::07 | [facility] | | | + + + +-------+ + + + + | Result panel 1354 | + + + + + +-------+ + + | | 2022-11-24 | [facility] | 0-1 | (missing) | (missing) | | (unavailable | ::07 | [facility] | | | + + + +-------+ + + + + | Result panel 1355 | + + + + + + + + + | | 2022-11-24 | [facility] | SQUAMOUS 1+ | (missing) | (missing) | | (unavailable | 21:02:07 [facility] | | | + + + + + + + + + | Result panel 1356 | + + + + + +------+ + + | | 2022-11-24 | [facility] | No | (missing) | (missing) | | (unavailable | 21:02:07 [facility] | | | + + + +------+ + + + + | Result panel 1357 | + + + + + + + + + | | 2022-11-24 | [facility] | NEGATIVE | (missing) | (missing) | | (unavailable | 21:02:07 [facility] | | | + + + + + + + + + | Result panel 1358 | + + + + + + + + + | | 2022-11-24 | [facility] | NEGATIVE | (missing) | (missing) | | (unavailable | 21:15:07 [facility] | | | + + + + + + + + + | Result panel 1359 | + + + + + +-------+ + + | | 2022-11-24 | [facility] | 7.7 | (missing) | (missing) | | (unavailable | 21:15:07 [facility] | | | + + + +-------+ + + + + | Result panel 1360 | + + + + + +--------+ + + | | 2022-11-24 | [facility] | 3.61 | (missing) | (missing) | | (unavailable | 21:15:07 [facility] | | | + + + +--------+ + + + + | Result panel 1361 | + + + + + +--------+ + + | | 2022-11-24 | [facility] | 10.6 | (missing) | (missing) | | (unavailable | 21:15:07 [facility] | | | + + + +--------+ + + + + | Result panel 1362 | + + + + + +--------+ + + | | 2022-11-24 | [facility] | 32.7 | (missing) | (missing) | | (unavailable | 21:15:07 [facility] | | | + + + +--------+ + + + + | Result panel 1363 | + + + + + +--------+ + + | | 2022-11-24 | [facility] | 90.5 | (missing) | (missing) | | (unavailable | 21:15:07 [facility] | | | + + + +--------+ + + + + | Result panel 1364 | + + + + + +--------+ + + | | 2022-11-24 | [facility] | 29.4 | (missing) | (missing) | | (unavailable | 21:15:07 [facility] | | | + + + +--------+ + + + + | Result panel 1365 | + + + + + +--------+ + + | | 2022-11-24 | [facility] | 32.4 | (missing) | (missing) | | (unavailable | 21:15:07 [facility] | | + + + +--------+ + + + + | Result panel 1366 | + + + + + +--------+ + + | | 2022-11-24 | [facility] | 14.5 | (missing) | (missing) | | (unavailable | 21:15:07 [facility] | | | + + + +--------+ + + + + | Result panel 1367 | + + + + + +-------+ + + | | 2022-11-24 | [facility] | 417 | (missing) | (missing) | | (unavailable | 21:15:07 [facility] | | + + + +-------+ + + + + | Result panel 1368 | + + + + + +--------+ + + | | 2022-11-24 | [facility] | 59.7 | (missing) | (missing) | | (unavailable | 21:15:07 [facility] | | + + + +--------+ + + + + | Result panel 1369 | + + + + + +--------+ + + | | 2022-11-24 | [facility] | 30.5 | (missing) | (missing) | | (unavailable | 21:15:07 [facility] | | + + + +--------+ + + + + | Result panel 1370 | + + + + + +-------+ + + | | 2022-11-24 | [facility] | 6.4 | (missing) | (missing) | | (unavailable | 21:15:07 [facility] | | | + + + +-------+ + + + + | Result panel 1371 | + + + + + +-------+ + + | | 2022-11-24 | [facility] | 1.5 | (missing) | (missing) | | (unavailable | 21:15:07 [facility] | | | + + + +-------+ + + + + | Result panel 1372 | + + + + + +-------+ + + | | 2022-11-24 | [facility] | 1.9 | (missing) | (missing) | | (unavailable | 21::07 | [facility] | | | + + + +-------+ + + + + | Result panel 1373 | + + + + + +-------+---------+ + | | 2022-11-24 | [facility] | 575 | mg/dL | (missing) | | (unavailable | 21:15:07 [facility] | | | + + + +-------+---------+ + + + | Result panel 1374 | + + + + + +------+---------+ + | | 2022-11-24 | [facility] | 44 | mg/dL | (missing) | | (unavailable | 21:15:07 [facility] | | | + + + +------+---------+ + + + | Result panel 1375 | + + + + + +--------+---------+ + | | 2022-11-24 | [facility] | 2.66 | mg/dL | (missing) | | (unavailable | 21:15:07 [facility] | | | + + + +--------+---------+ + + + | Result panel 1376 | + + + + + +------+ + + | | 2022-11-24 | [facility] | 25 | (missing) | (missing) | | (unavailable | 21:15:07 [facility] | | | + + + +------+ + + + + | Result panel 1377 | + + + + + +---------+ + + | | 2022-11-24 | [facility] | 16.54 | (missing) | (missing) | | (unavailable | 21:15:07 [facility] | | + + + +---------+ + + + + | Result panel 1378 | + + + + + +-------+ + + | | 2022-11-24 | [facility] | 125 | (missing) | (missing) | | (unavailable | 21:15:07 [facility] | | | + + + +-------+ + + + + | Result panel 1379 | + + + + + +-------+ + + | | 2022-11-24 | [facility] | 4.8 | (missing) | (missing) | | (unavailable | 21:15:07 [facility] | | | + + + +-------+ + + + + | Result panel 1380 | + + + + + +------+ + + | | 2022-11-24 | [facility] | 89 | (missing) | (missing) | | (unavailable | 21:15:07 [facility] | | | + + + +------+ + + + + | Result panel 1381 | + + + + + +------+ + + | | 2022-11-24 | [facility] | 22 | (missing) | (missing) | | (unavailable | 21:15:07 [facility] | | | + + + +------+ + + + + | Result panel 1382 | + + + + + +--------+ + + | | 2022-11-24 | [facility] | 18.8 | (missing) | (missing) | | (unavailable | 21:15:07 [facility] | | + + + +--------+ + + + + | Result panel 1383 | + + + + + +-------+---------+ + | | 2022-11-24 | [facility] | 8.7 | mg/dL | (missing) | | (unavailable | 21:15:07 [facility] | | | + + + +-------+---------+ + + + | Result panel 1384 | + + + + + +-------+ + + | | 2022-11-24 | [facility] | 8.8 | (missing) | (missing) | | (unavailable | 21:15:07 [facility] | | | + + + +-------+ + + + + | Result panel 1385 | + + + + + +-------+ + + | | 2022-11-24 | [facility] | 4.0 | (missing) | (missing) | | (unavailable | 21:15:07 [facility] | | | + + + +-------+ + + + + | Result panel 1386 | + + + + + +-------+ + + | | 2022-11-24 | [facility] | 4.8 | (missing) | (missing) | | (unavailable | 21:15:07 [facility] | | | + + + +-------+ + + + + | Result panel 1387 | + + + + + +--------+ + + | | 2022-11-24 | [facility] | 0.83 | (missing) | (missing) | | (unavailable | 21:15:07 [facility] | | | + + + +--------+ + + + + | Result panel 1388 | + + + + + +-------+ + + | | 2022-11-24 | [facility] | 0.4 | (missing) | (missing) | | (unavailable | 21:15:07 [facility] | | | + + + +-------+ + + + + | Result panel 1389 | + + + + + +------+ + + | | 2022-11-24 | [facility] | 50 | (missing) | (missing) | | (unavailable | 21:15:07 [facility] | | | + + + +------+ + + + + | Result panel 1390 | + + + + + +------+ + + | | 2022-11-24 | [facility] | 40 | (missing) | (missing) | | (unavailable | 21:15:07 [facility] | | | + + + +------+ + + + + | Result panel 1391 | + + + + + +-------+ + + | | 2022-11-24 | [facility] | 227 | (missing) | (missing) | | (unavailable | 21:15:07 [facility] | | | + + + +-------+ + + + + | Result panel 1392 | + + + + + +-------+ + + | | 2022-11-24 | [facility] | 162 | (missing) | (missing) | | (unavailable | 21:15:07 [facility] | | | + + + +-------+ + + + + | Result panel 1393 | + + + + + + + + + | | 2022-11-24 | [facility] | NEGATIVE | (missing) | (missing) | | (unavailable | 21:15:07 [facility] | | | + + + + + + + + + | Result panel 1394 | + + + + + +-------+ + + | | 2022-11-24 | [facility] | 310 | (missing) | (missing) | | (unavailable | 23:29:07 [facility] | | | + + + +-------+ + + + + | Result panel 1395 | + + + + + +-------+ + + | | 2022-12-07 | [facility] | 9.3 | (missing) | (missing) | | (unavailable | 17:00:07 [facility] | | | + + + +-------+ + + + + | Result panel 1396 | + + + + + +-------+ + + | | 2022-12-07 | [facility] | 4.1 | (missing) | (missing) | | (unavailable | 17:00:07 [facility] | | | + + + +-------+ + + + + | Result panel 1397 | + + + + + +-------+ + + | | 2022-12-07 | [facility] | 5.2 | (missing) | (missing) | | (unavailable | 17:00:07 [facility] | | | + + + +-------+ + + + + | Result panel 1398 | + + + + + +--------+ + + | | 2022-12-07 | [facility] | 0.79 | (missing) | (missing) | | (unavailable | 17:00:07 [facility] | | | + + + +--------+ + + + + | Result panel 1399 | + + + + + +-------+ + + | | 2022-12-07 | [facility] | 0.2 | (missing) | (missing) | | (unavailable | 17:00:07 [facility] | | | + + + +-------+ + + + + | Result panel 1400 | + + + + + +------+ + + | | 2022-12-07 | [facility] | 25 | (missing) | (missing) | | (unavailable | 17:00:07 [facility] | | | + + + +------+ + + + + | Result panel 1401 | + + + + + +------+ + + | | 2022-12-07 | [facility] | 10 | (missing) | (missing) | | (unavailable | 17::07 | [facility] | | | + + + +------+ + + + + | Result panel 1402 | + + + + + +-------+ + + | | 2022-12-07 | [facility] | 231 | (missing) | (missing) | | (unavailable | 17:00:07 [facility] | | | + + + +-------+ + + + + | Result panel 1403 | + + + + + + + + + | | 2022-12-07 | [facility] | NEGATIVE | (missing) | (missing) | | (unavailable | 17:00:07 [facility] | | | + + + + + + + + + | Result panel 1404 | + + + + + + + + + | | 2022-12-07 | [facility] | NEGATIVE | (missing) | (missing) | | (unavailable | 17:41:07 [facility] | | | + + + + + + + + + | Result panel 1405 | + + + + + + + + + | | 2022-12-07 | [facility] | NEGATIVE | (missing) | (missing) | | (unavailable | 17:41:07 [facility] | | | + + + + + + + + + | Result panel 1406 | + + + + + + + + + | | 2022-12-07 | [facility] | NEGATIVE | (missing) | (missing) | | (unavailable | 17:41:07 [facility] | | | + + + + + + + + + | Result panel 1407 | + + + + + + + + + | | 2022-12-07 | [facility] | NEGATIVE | (missing) | (missing) | | (unavailable | 17:41:07 [facility] | | | + + + + + + + + + | Result panel 1408 | + + + + + + + + + | | 2022-12-07 | [facility] | NEGATIVE | (missing) | (missing) | | (unavailable | 17:41:07 [facility] | | | + + + + + + + + + | Result panel 1409 | + + + + + + + + + | | 2022-12-07 | [facility] | NEGATIVE | (missing) | (missing) | | (unavailable | 17:41:07 [facility] | | | + + + + + + + + + | Result panel 1410 | + + + + + + + + + | | 2022-12-07 | [facility] | NEGATIVE | (missing) | (missing) | | (unavailable | 17:41:07 [facility] | | | + + + + + + + + + | Result panel 1411 | + + + + + + + + + | | 2022-12-07 | [facility] | NEGATIVE | (missing) | (missing) | | (unavailable | 17:41:07 [facility] | | | + + + + + + + + + | Result panel 1412 | + + + + + + + + + | | 2022-12-07 | [facility] | NEGATIVE | (missing) | (missing) | | (unavailable | 17:41:07 [facility] | | | + + + + + + + + + | Result panel 1413 | + + + + + + + + + | | 2022-12-07 | [facility] | NEGATIVE | (missing) | (missing) | | (unavailable | 17:41:07 [facility] | | | + + + + + + + + + | Result panel 1414 | + + + + + + + + + | | 2022-12-07 | [facility] | NEGATIVE | (missing) | (missing) | | (unavailable | 17:41:07 [facility] | | | + + + + + + + + + | Result panel 1415 | + + + + + + + + + | | 2022-12-07 | [facility] | NEGATIVE | (missing) | (missing) | | (unavailable | 17:41:07 [facility] | | | + + + + + + + + + | Result panel 1416 | + + + + + + + + + | | 2022-12-08 | [facility] | NEGATIVE | (missing) | (missing) | | (unavailable | 02:30:07 [facility] | | | + + + + + + + + + | Result panel 1417 | + + + + + + + + + | | 2022-12-08 | [facility] | NEGATIVE | (missing) | (missing) | | (unavailable | 02:30:07 [facility] | | | | + + + + + + + + + | Result panel 1418 | + + + + + + + + + | | 2022-12-08 | [facility] | YELLOW | (missing) | (missing) | | (unavailable | 02:30:07 [facility] | | | | + + + + + + + + + | Result panel 1419 | + + + + + +---------+ + + | | 2022-12-08 | [facility] | CLEAR | (missing) | (missing) | | (unavailable | 02:30:07 [facility] | | | | + + + +---------+ + + + + | Result panel 1420 | + + + + + +---------+ + + | | 2022-12-08 | [facility] | LARGE | (missing) | (missing) | | (unavailable | 02:30:07 [facility] | | | | + + + +---------+ + + + + | Result panel 1421 | + + + + + + + + + | | 2022-12-08 | [facility] | NEGATIVE | (missing) | (missing) | | (unavailable | 02:30:07 [facility] | | | | + + + + + + + + + | Result panel 1422 | + + + + + + + + + | | 2022-12-08 | [facility] | NEGATIVE | (missing) | (missing) | | (unavailable | 02:30:07 [facility] | | | | + + + + + + + + + | Result panel 1423 | + + + + + +---------+ + + | | 2022-12-08 | [facility] | 1.025 | (missing) | (missing) | | (unavailable | 02:30:07 [facility] | | | + + + +---------+ + + + + | Result panel 1424 | + + + + + +---------+ + + | | 2022-12-08 | [facility] | SMALL | (missing) | (missing) | | (unavailable | 02:30:07 [facility] | | | | + + + +---------+ + + + + | Result panel 1425 | + + + + + +-------+ + + | | 2022-12-08 | [facility] | 6.0 | (missing) | (missing) | | (unavailable | 02:30:07 [facility] | | | + + + +-------+ + + + + | Result panel 1426 | + + + + + +-------+ + + | | 2022-12-08 | [facility] | 100 | (missing) | (missing) | | (unavailable | 02:30:07 [facility] | | | + + + +-------+ + + + + | Result panel 1427 | + + + + + + + + + | | 2022-12-08 | [facility] | NORMAL | (missing) | (missing) | | (unavailable | 02:30:07 [facility] | | | + + + + + + + + + | Result panel 1428 | + + + + + + + + + | | 2022-12-08 | [facility] | NEGATIVE | (missing) | (missing) | | (unavailable | 02:30:07 [facility] | | | + + + + + + + + + | Result panel 1429 | + + + + + + + + + | | 2022-12-08 | [facility] | NEGATIVE | (missing) | (missing) | | (unavailable | 02:30:07 [facility] | | | + + + + + + + + + | Result panel 1430 | + + + + + +-------+ + + | | 2022-12-08 | [facility] | 2-3 | (missing) | (missing) | | (unavailable | 02:30:07 [facility] | | | + + + +-------+ + + + + | Result panel 1431 | + + + + + +-------+ + + | | 2022-12-08 | [facility] | 0-1 | (missing) | (missing) | | (unavailable | 02:30:07 [facility] | | | + + + +-------+ + + + + | Result panel 1432 | + + + + + + + + + | | 2022-12-08 | [facility] | SQUAMOUS 2+ | (missing) | (missing) | | (unavailable | 02:30:07 [facility] | | | | + + + + + + + + + | Result panel 1433 | + + + + + +------+ + + | | 2022-12-08 | [facility] | 1+ | (missing) | (missing) | | (unavailable | 02:30:07 [facility] | | | + + + +------+ + + + + | Result panel 1434 | + + + + + + + + + | | 2022-12-08 | [facility] | GRANULAR 1+ | (missing) | (missing) | | (unavailable | 02:30:07 | [facility] | | | | + + + + + + + + + | Result panel 1435 | + + + + + +------+ + + | | 2022-12-08 | [facility] | No | (missing) | (missing) | | (unavailable | 02:30:07 | [facility] | | | | + + + +------+ + + + + | Result panel 1436 | + + + + + + + + + | | 2022-12-08 | [facility] | CLEAN CATCH | (missing) | (missing) | | (unavailable | 02::07 | [facility] | | | | + + + + + + + + + | Result panel 1437 | + + + + + + + + + | | 2022-12-08 | [facility] | NEGATIVE | (missing) | (missing) | | (unavailable | 02:30:07 | [facility] | | | | + + + + + + + + + | Result panel 1438 | + + + + + +-------+---------+ + | | 2022-12-08 | [facility] | 2.3 | mg/dL | (missing) | | (unavailable | 05:20:07 | [facility] | | | | + + + +-------+---------+ + + + | Result panel 1439 | + + + + + +-------+---------+ + | | 2022-12-08 | [facility] | 244 | mg/dL | (missing) | | (unavailable | 05:20:07 | [facility] | | | | + + + +-------+---------+ + + + | Result panel 1440 | + + + + + +------+ + + | | 2022-12-08 | [facility] | 39 | (missing) | (missing) | | (unavailable | 05:20:07 | [facility] | | | | + + + +------+ + + + + | Result panel 1441 | + + + + + + + + + | | 2022-12-08 | [facility] | 205.00 | (missing) | (missing) | | (unavailable | 05:20:07 | [facility] | | | | + + + + + + + + + | Result panel 1442 | + + + + + +-------+ + + | | 2022-12-08 | [facility] | 6.3 | (missing) | (missing) | | (unavailable | 05:20:07 | [facility] | | | | + + + +-------+ + + + + | Result panel 1443 | + + + + + +-------+ + + | | 2022-12-08 | [facility] | 588 | (missing) | (missing) | | (unavailable | 05:20:07 | [facility] | | | | + + + +-------+ + + + + | Result panel 1444 | + + + + + +-------+---------+ + | | 2022-12-08 | [facility] | 2.3 | mg/dL | (missing) | | (unavailable | 05:20:07 | [facility] | | | | + + + +-------+---------+ + + + | Result panel 1445 | + + + + + +-------+---------+ + | | 2022-12-08 | [facility] | 244 | mg/dL | (missing) | | (unavailable | 05:20:07 | [facility] | | | | + + + +-------+---------+ + + + | Result panel 1446 | + + + + + +------+ + + | | 2022-12-08 | [facility] | 39 | (missing) | (missing) | | (unavailable | 05:20:07 | [facility] | | | | + + + +------+ + + + + | Result panel 1447 | + + + + + + + + + | | 2022-12-08 | [facility] | 205.00 | (missing) | (missing) | | (unavailable | 05:20:07 | [facility] | | | | + + + + + + + + + | Result panel 1448 | + + + + + +-------+ + + | | 2022-12-08 | [facility] | 6.3 | (missing) | (missing) | | (unavailable | 05:20:07 | [facility] | | | | + + + +-------+ + + + + | Result panel 1449 | + + + + + +-------+ + + | | 2022-12-08 | [facility] | 588 | (missing) | (missing) | | (unavailable | 05:20:07 | [facility] | | | | + + + +-------+ + + + + | Result panel 1450 | + + + + + +-------+ + + | | 2022-12-10 | [facility] | 458 | (missing) | (missing) | | (unavailable | 05:32:07 | [facility] | | | | + + + +-------+ + + + + | Result panel 1451 | + + + + + +-------+ + + | | 2022-12-10 | [facility] | 8.7 | (missing) | (missing) | | (unavailable | 05:32:07 | [facility] | | | | + + + +-------+ + + + + | Result panel 1452 | + + + + + +--------+ + + | | 2022-12-10 | [facility] | 3.04 | (missing) | (missing) | | (unavailable | 05:32:07 [facility] | | | | + + + +--------+ + + + + | Result panel 1453 | + + + + + +-------+ + + | | 2022-12-10 | [facility] | 8.9 | (missing) | (missing) | | (unavailable | 05:32:07 [facility] | | | + + + +-------+ + + + + | Result panel 1454 | + + + + + +--------+ + + | | 2022-12-10 | [facility] | 27.2 | (missing) | (missing) | | (unavailable | 05:32:07 [facility] | | | + + + +--------+ + + + + | Result panel 1455 | + + + + + +--------+ + + | | 2022-12-10 | [facility] | 89.7 | (missing) | (missing) | | (unavailable | 05:32:07 [facility] | | | + + + +--------+ + + + + | Result panel 1456 | + + + + + +--------+ + + | | 2022-12-10 | [facility] | 29.3 | (missing) | (missing) | | (unavailable | 05:32:07 [facility] | | | + + + +--------+ + + + + | Result panel 1457 | + + + + + +--------+ + + | | 2022-12-10 | [facility] | 32.7 | (missing) | (missing) | | (unavailable | 05:32:07 [facility] | | | + + + +--------+ + + + + | Result panel 1458 | + + + + + +--------+ + + | | 2022-12-10 | [facility] | 15.4 | (missing) | (missing) | | (unavailable | 05:32:07 [facility] | | | + + + +--------+ + + + + | Result panel 1459 | + + + + + +-------+ + + | | 2022-12-10 | [facility] | 311 | (missing) | (missing) | | (unavailable | 05:32:07 [facility] | | | + + + +-------+ + + + + | Result panel 1460 | + + + + + +--------+ + + | | 2022-12-10 | [facility] | 51.7 | (missing) | (missing) | | (unavailable | 05:32:07 [facility] | | | + + + +--------+ + + + + | Result panel 1461 | + + + + + +--------+ + + | | 2022-12-10 | [facility] | 33.4 | (missing) | (missing) | | (unavailable | 05:32:07 [facility] | | | + + + +--------+ + + + + | Result panel 1462 | + + + + + +--------+ + + | | 2022-12-10 | [facility] | 12.0 | (missing) | (missing) | | (unavailable | 05:32:07 [facility] | | | + + + +--------+ + + + + | Result panel 1463 | + + + + + +-------+ + + | | 2022-12-10 | [facility] | 1.9 | (missing) | (missing) | | (unavailable | 05:32:07 [facility] | | | + + + +-------+ + + + + | Result panel 1464 | + + + + + +-------+ + + | | 2022-12-10 | [facility] | 1.0 | (missing) | (missing) | | (unavailable | 05:32:07 [facility] | | | + + + +-------+ + + + + | Result panel 1465 | + + + + + +-------+---------+ + | | 2022-12-10 | [facility] | 174 | mg/dL | (missing) | | (unavailable | 05:32:07 [facility] | | | + + + +-------+---------+ + + + | Result panel 1466 | + + + + + +------+---------+ + | | 2022-12-10 | [facility] | 24 | mg/dL | (missing) | | (unavailable | 05:32:07 [facility] | | | + + + +------+---------+ + + + | Result panel 1467 | + + + + + +--------+---------+ + | | 2022-12-10 | [facility] | 2.61 | mg/dL | (missing) | | (unavailable | 05:32:07 [facility] | | | + + + +--------+---------+ + + + | Result panel 1468 | + + + + + +------+ + + | | 2022-12-10 | [facility] | 26 | (missing) | (missing) | | (unavailable | 05:32:07 [facility] | | | + + + +------+ + + + + | Result panel 1469 | + + + + + +--------+ + + | | 2022-12-10 | [facility] | 9.19 | (missing) | (missing) | | (unavailable | 05:32:07 [facility] | | | + + + +--------+ + + + + | Result panel 1470 | + + + + + +-------+ + + | | 2022-12-10 | [facility] | 139 | (missing) | (missing) | | (unavailable | 05:32:07 [facility] | | | + + + +-------+ + + + + | Result panel 1471 | + + + + + +-------+ + + | | 2022-12-10 | [facility] | 3.5 | (missing) | (missing) | | (unavailable | 05:32:07 [facility] | | | + + + +-------+ + + + + | Result panel 1472 | + + + + + +-------+ + + | | 2022-12-10 | [facility] | 104 | (missing) | (missing) | | (unavailable | 05:32:07 [facility] | | | + + + +-------+ + + + + | Result panel 1473 | + + + + + +------+ + + | | 2022-12-10 | [facility] | 23 | (missing) | (missing) | | (unavailable | 05:32:07 [facility] | | | + + + +------+ + + + + | Result panel 1474 | + + + + + +--------+ + + | | 2022-12-10 | [facility] | 15.5 | (missing) | (missing) | | (unavailable | 05:32:07 [facility] | | | + + + +--------+ + + + + | Result panel 1475 | + + + + + +-------+---------+ + | | 2022-12-10 | [facility] | 8.4 | mg/dL | (missing) | | (unavailable | 05:32:07 [facility] | | | + + + +-------+---------+ + + + | Result panel 1476 | + + + + + +-------+ + + | | 2022-12-10 | [facility] | 458 | (missing) | (missing) | | (unavailable | 05:32:07 [facility] | | | + + + +-------+ + + + + | Result panel 1477 | + + + + + +-------+ + + | | 2022-12-10 | [facility] | 146 | (missing) | (missing) | | (unavailable | 07:34:07 [facility] | | | + + + +-------+ + + + + | Result panel 1478 | + + + + + +-------+ + + | | 2022-12-10 | [facility] | 146 | (missing) | (missing) | | (unavailable | 07:34:07 [facility] | | | + + + +-------+ + + + + | Result panel 1479 | + + + + + +-------+ + + | | 2023-01-03 | [facility] | 6.8 | (missing) | (missing) | | (unavailable | 13:50:07 [facility] | | | + + + +-------+ + + + + | Result panel 1480 | + + + + + +--------+ + + | | 2023-01-03 | [facility] | 3.69 | (missing) | (missing) | | (unavailable | 13:50:07 [facility] | | | + + + +--------+ + + + + | Result panel 1481 | + + + + + +--------+ + + | | 2023-01-03 | [facility] | 10.6 | (missing) | (missing) | | (unavailable | 13:50:07 [facility] | | | + + + +--------+ + + + + | Result panel 1482 | + + + + + +--------+ + + | | 2023-01-03 | [facility] | 32.8 | (missing) | (missing) | | (unavailable | 13:50:07 [facility] | | | + + + +--------+ + + + + | Result panel 1483 | + + + + + +--------+ + + | | 2023-01-03 | [facility] | 88.9 | (missing) | (missing) | | (unavailable | 13:50:07 [facility] | | | + + + +--------+ + + + + | Result panel 1484 | + + + + + +--------+ + + | | 2023-01-03 | [facility] | 28.6 | (missing) | (missing) | | (unavailable | 13:50:07 [facility] | | | + + + +--------+ + + + + | Result panel 1485 | + + + + + +--------+ + + | | 2023-01-03 | [facility] | 32.2 | (missing) | (missing) | | (unavailable | 13:50:07 [facility] | | | + + + +--------+ + + + + | Result panel 1486 | + + + + + +--------+ + + | | 2023-01-03 | [facility] | 15.2 | (missing) | (missing) | | (unavailable | 13:50:07 [facility] | | | + + + +--------+ + + + + | Result panel 1487 | + + + + + +-------+ + + | | 2023-01-03 | [facility] | 321 | (missing) | (missing) | | (unavailable | 13:50:07 [facility] | | | + + + +-------+ + + + + | Result panel 1488 | + + + + + +--------+ + + | | 2023-01-03 | [facility] | 68.5 | (missing) | (missing) | | (unavailable | 13:50:07 [facility] | | | + + + +--------+ + + + + | Result panel 1489 | + + + + + +--------+ + + | | 2023-01-03 | [facility] | 24.9 | (missing) | (missing) | | (unavailable | 13:50:07 [facility] | | | + + + +--------+ + + + + | Result panel 1490 | + + + + + +-------+ + + | | 2023-01-03 | [facility] | 4.0 | (missing) | (missing) | | (unavailable | 13:50:07 [facility] | | | + + + +-------+ + + + + | Result panel 1491 | + + + + + +-------+ + + | | 2023-01-03 | [facility] | 1.9 | (missing) | (missing) | | (unavailable | 13:50:07 [facility] | | | + + + +-------+ + + + + | Result panel 1492 | + + + + + +-------+ + + | | 2023-01-03 | [facility] | 0.7 | (missing) | (missing) | | (unavailable | 13:50:07 [facility] | | | + + + +-------+ + + + + | Result panel 1493 | + + + + + +-------+---------+ + | | 2023-01-03 | [facility] | 470 | mg/dL | (missing) | | (unavailable | 13:50:07 [facility] | | | + + + +-------+---------+ + + + | Result panel 1494 | + + + + + +------+---------+ + | | 2023-01-03 | [facility] | 33 | mg/dL | (missing) | | (unavailable | 13:50:07 [facility] | | | + + + +------+---------+ + + + | Result panel 1495 | + + + + + +--------+---------+ + | | 2023-01-03 | [facility] | 2.19 | mg/dL | (missing) | | (unavailable | 13:50:07 [facility] | | | + + + +--------+---------+ + + + | Result panel 1496 | + + + + + +------+ + + | | 2023-01-03 | [facility] | 32 | (missing) | (missing) | | (unavailable | 13:50:07 [facility] | | | + + + +------+ + + + + | Result panel 1497 | + + + + + +---------+ + + | | 2023-01-03 | [facility] | 15.06 | (missing) | (missing) | | (unavailable | 13:50:07 [facility] | | | + + + +---------+ + + + + | Result panel 1498 | + + + + + +-------+ + + | | 2023-01-03 | [facility] | 131 | (missing) | (missing) | | (unavailable | 13:50:07 [facility] | | | + + + +-------+ + + + + | Result panel 1499 | + + + + + +-------+ + + | | 2023-01-03 | [facility] | 4.2 | (missing) | (missing) | | (unavailable | 13:50:07 [facility] | | | + + + +-------+ + + + + | Result panel 1500 | + + + + + +------+ + + | | 2023-01-03 | [facility] | 96 | (missing) | (missing) | | (unavailable | 13:50:07 [facility] | | | + + + +------+ + + + + | Result panel 1501 | + + + + + +------+ + + | | 2023-01-03 | [facility] | 20 | (missing) | (missing) | | (unavailable | 13:50:07 [facility] | | | + + + +------+ + + + + | Result panel 1502 | + + + + + +--------+ + + | | 2023-01-03 | [facility] | 19.2 | (missing) | (missing) | | (unavailable | 13:50:07 [facility] | | | + + + +--------+ + + + + | Result panel 1503 | + + + + + +-------+---------+ + | | 2023-01-03 | [facility] | 9.1 | mg/dL | (missing) | | (unavailable | 13:50:07 [facility] | | | + + + +-------+---------+ + + + | Result panel 1504 | + + + + + +-------+ + + | | 2023-01-03 | [facility] | 8.7 | (missing) | (missing) | | (unavailable | 13:50:07 [facility] | | | + + + +-------+ + + + + | Result panel 1505 | + + + + + +-------+ + + | | 2023-01-03 | [facility] | 3.9 | (missing) | (missing) | | (unavailable | 13:50:07 [facility] | | | + + + +-------+ + + + + | Result panel 1506 | + + + + + +-------+ + + | | 2023-01-03 | [facility] | 4.8 | (missing) | (missing) | | (unavailable | 13:50:07 [facility] | | | + + + +-------+ + + + + | Result panel 1507 | + + + + + +--------+ + + | | 2023-01-03 | [facility] | 0.81 | (missing) | (missing) | | (unavailable | 13:50:07 [facility] | | | + + + +--------+ + + + + | Result panel 1508 | + + + + + +-------+ + + | | 2023-01-03 | [facility] | 0.3 | (missing) | (missing) | | (unavailable | 13:50:07 [facility] | | | + + + +-------+ + + + + | Result panel 1509 | + + + + + +------+ + + | | 2023-01-03 | [facility] | 29 | (missing) | (missing) | | (unavailable | 13:50:07 [facility] | | | + + + +------+ + + + + | Result panel 1510 | + + + + + +------+ + + | | 2023-01-03 | [facility] | 19 | (missing) | (missing) | | (unavailable | 13:50:07 [facility] | | | + + + +------+ + + + + | Result panel 1511 | + + + + + +-------+ + + | | 2023-01-03 | [facility] | 272 | (missing) | (missing) | | (unavailable | 13:50:07 [facility] | | | + + + +-------+ + + + + | Result panel 1512 | + + + + + + + + + | | 2023-01-03 | [facility] | NEGATIVE | (missing) | (missing) | | (unavailable | 13:50:07 [facility] | | | | + + + + + + + + + | Result panel 1513 | + + + + + + + + + | | 2023-01-03 | [facility] | CLEAN CATCH | (missing) | (missing) | | (unavailable | 14:11:07 [facility] | | | | + + + + + + + + + | Result panel 1514 | + + + + + + + + + | | 2023-01-03 | [facility] | CLEAN CATCH | (missing) | (missing) | | (unavailable | 14:11:07 [facility] | | | | + + + + + + + + + | Result panel 1515 | + + + + + + + + + | | 2023-01-03 | [facility] | CLEAN CATCH | (missing) | (missing) | | (unavailable | 14:11:07 [facility] | | | | + + + + + + + + + | Result panel 1516 | + + + + + + + + + | | 2023-01-03 | [facility] | YELLOW | (missing) | (missing) | | (unavailable | 14:11:07 [facility] | | | | + + + + + + + + + | Result panel 1517 | + + + + + +---------+ + + | | 2023-01-03 | [facility] | CLEAR | (missing) | (missing) | | (unavailable | 14:11:07 [facility] | | | | + + + +---------+ + + + + | Result panel 1518 | + + + + + + + + + | | 2023-01-03 | [facility] | >=1000 | (missing) | (missing) | | (unavailable | 14:11:07 [facility] | | | + + + + + + + + + | Result panel 1519 | + + + + + + + + + | | 2023-01-03 | [facility] | NEGATIVE | (missing) | (missing) | | (unavailable | 14:11:07 [facility] | | | | + + + + + + + + + | Result panel 1520 | + + + + + +---------+ + + | | 2023-01-03 | [facility] | TRACE | (missing) | (missing) | | (unavailable | 14:11:07 [facility] | | | | + + + +---------+ + + + + | Result panel 1521 | + + + + + +---------+ + + | | 2023-01-03 | [facility] | 1.020 | (missing) | (missing) | | (unavailable | 14:11:07 [facility] | | | | + + + +---------+ + + + + | Result panel 1522 | + + + + + +---------+ + + | | 2023-01-03 | [facility] | SMALL | (missing) | (missing) | | (unavailable | 14:11:07 [facility] | | | + + + +---------+ + + + + | Result panel 1523 | + + + + + +-------+ + + | | 2023-01-03 | [facility] | 6.0 | (missing) | (missing) | | (unavailable | 14:11:07 [facility] | | | + + + +-------+ + + + + | Result panel 1524 | + + + + + +-------+ + + | | 2023-01-03 | [facility] | 100 | (missing) | (missing) | | (unavailable | 14::07 | [facility] | | | | + + + +-------+ + + + + | Result panel 1525 | + + + + + + + + + | | 2023-01-03 | [facility] | NORMAL | (missing) | (missing) | | (unavailable | 14:11:07 [facility] | | | | + + + + + + + + + | Result panel 1526 | + + + + + + + + + | | 2023-01-03 | [facility] | NEGATIVE | (missing) | (missing) | | (unavailable | 14:11:07 [facility] | | | | + + + + + + + + + | Result panel 1527 | + + + + + + + + + | | 2023-01-03 | [facility] | NEGATIVE | (missing) | (missing) | | (unavailable | 14:11:07 [facility] | | | | + + + + + + + + + | Result panel 1528 | + + + + + +-------+ + + | | 2023-01-03 | [facility] | 2-3 | (missing) | (missing) | | (unavailable | 14:11:07 [facility] | | | + + + +-------+ + + + + | Result panel 1529 | + + + + + +-------+ + + | | 2023-01-03 | [facility] | 0-1 | (missing) | (missing) | | (unavailable | 14:11:07 [facility] | | | + + + +-------+ + + + + | Result panel 1530 | + + + + + + + + + | | 2023-01-03 | [facility] | SQUAMOUS 3+ | (missing) | (missing) | | (unavailable | 14:11:07 [facility] | | | | + + + + + + + + + | Result panel 1531 | + + + + + + + + + | | 2023-01-03 | [facility] | NONE SEEN | (missing) | (missing) | | (unavailable | 14: | [facility] | | | | + + + + + + + + + | Result panel 1532 | + + + + + +------+ + + | | 2023-01-03 | [facility] | 1+ | (missing) | (missing) | | (unavailable | 14: | [facility] | | | | + + + +------+ + + + + | Result panel 1533 | + + + + + + + + + | | 2023-01-03 | [facility] | NONE SEEN | (missing) | (missing) | | (unavailable | 14:11:07 [facility] | | | | + + + + + + + + + | Result panel 1534 | + + + + + +------+ + + | | 2023-01-03 | [facility] | No | (missing) | (missing) | | (unavailable | 14:11:07 [facility] | | | | + + + +------+ + + + + | Result panel 1535 | + + + + + + + + + | | 2023-01-03 | [facility] | CLEAN CATCH | (missing) | (missing) | | (unavailable | 14:11:07 [facility] | | | | + + + + + + + + + | Result panel 1536 | + + + + + + + + + | | 2023-01-03 | [facility] | YELLOW | (missing) | (missing) | | (unavailable | 14:11:07 [facility] | | | | + + + + + + + + + | Result panel 1537 | + + + + + +---------+ + + | | 2023-01-03 | [facility] | CLEAR | (missing) | (missing) | | (unavailable | 14:11:07 [facility] | | | | + + + +---------+ + + + + | Result panel 1538 | + + + + + + + + + | | 2023-01-03 | [facility] | >=1000 | (missing) | (missing) | | (unavailable | 14:11:07 [facility] | | | | + + + + + + + + + | Result panel 1539 | + + + + + + + + + | | 2023-01-03 | [facility] | NEGATIVE | (missing) | (missing) | | (unavailable | 14:11:07 [facility] | | | | + + + + + + + + + | Result panel 1540 | + + + + + +---------+ + + | | 2023-01-03 | [facility] | TRACE | (missing) | (missing) | | (unavailable | 14:11:07 [facility] | | | | + + + +---------+ + + + + | Result panel 1541 | + + + + + +---------+ + + | | 2023-01-03 | [facility] | 1.020 | (missing) | (missing) | | (unavailable | 14:11:07 [facility] | | | | + + + +---------+ + + + + | Result panel 1542 | + + + + + +---------+ + + | | 2023-01-03 | [facility] | SMALL | (missing) | (missing) | | (unavailable | 14:11:07 [facility] | | | | + + + +---------+ + + + + | Result panel 1543 | + + + + + +-------+ + + | | 2023-01-03 | [facility] | 6.0 | (missing) | (missing) | | (unavailable | 14:11:07 [facility] | | | | + + + +-------+ + + + + | Result panel 1544 | + + + + + +-------+ + + | | 2023-01-03 | [facility] | 100 | (missing) | (missing) | | (unavailable | 14:11:07 [facility] | | | | + + + +-------+ + + + + | Result panel 1545 | + + + + + + + + + | | 2023-01-03 | [facility] | NORMAL | (missing) | (missing) | | (unavailable | 14:11:07 [facility] | | | | + + + + + + + + + | Result panel 1546 | + + + + + + + + + | | 2023-01-03 | [facility] | NEGATIVE | (missing) | (missing) | | (unavailable | 14:11:07 [facility] | | | | + + + + + + + + + | Result panel 1547 | + + + + + + + + + | | 2023-01-03 | [facility] | NEGATIVE | (missing) | (missing) | | (unavailable | 14:11:07 [facility] | | | | + + + + + + + + + | Result panel 1548 | + + + + + +-------+ + + | | 2023-01-03 | [facility] | 2-3 | (missing) | (missing) | | (unavailable | 14:11:07 [facility] | | | | + + + +-------+ + + + + | Result panel 1549 | + + + + + +-------+ + + | | 2023-01-03 | [facility] | 0-1 | (missing) | (missing) | | (unavailable | 14:11:07 [facility] | | | | + + + +-------+ + + + + | Result panel 1550 | + + + + + + + + + | | 2023-01-03 | [facility] | SQUAMOUS 3+ | (missing) | (missing) | | (unavailable | 14:11:07 [facility] | | | | + + + + + + + + + | Result panel 1551 | + + + + + + + + + | | 2023-01-03 | [facility] | NONE SEEN | (missing) | (missing) | | (unavailable | 14:11:07 [facility] | | | | + + + + + + + + + | Result panel 1552 | + + + + + +------+ + + | | 2023-01-03 | [facility] | 1+ | (missing) | (missing) | | (unavailable | 14:11:07 [facility] | | | | + + + +------+ + + + + | Result panel 1553 | + + + + + + + + + | | 2023-01-03 | [facility] | NONE SEEN | (missing) | (missing) | | (unavailable | 14:11:07 [facility] | | | | + + + + + + + + + | Result panel 1554 | + + + + + +------+ + + | | 2023-01-03 | [facility] | No | (missing) | (missing) | | (unavailable | 14:11:07 [facility] | | | | + + + +------+ + + + + | Result panel 1555 | + + + + + + + + + | | 2023-01-03 | [facility] | CLEAN CATCH | (missing) | (missing) | | (unavailable | 14:11:07 [facility] | | | + + + + + + + + + | Result panel 1556 | + + + + + +---------+ + + | | 2023-01-03 | [facility] | 7.319 | (missing) | (missing) | | (unavailable | 21:45:07 [facility] | | | | + + + +---------+ + + + + | Result panel 1557 | + + + + + + + + + | | 2023-01-03 | [facility] | NEGATIVE | (missing) | (missing) | | (unavailable | 21:45:07 [facility] | | | | + + + + + + + + + | Result panel 1558 | + + + + + + + + + | | 2023-01-03 | [facility] | NEGATIVE | (missing) | (missing) | | (unavailable | 21:45:07 | [facility] | | | | + + + + + + + + + | Result panel 1559 | + + + + + +---------+ + + | | 2023-01-03 | [facility] | 7.319 | (missing) | (missing) | | (unavailable | 21:45:07 | [facility] | | | | + + + +---------+ + + + + | Result panel 1560 | + + + + + + + + + | | 2023-01-03 | [facility] | NEGATIVE | (missing) | (missing) | | (unavailable | 21:45:07 | [facility] | | | | + + + + + + + + + | Result panel 1561 | + + + + + + + + + | | 2023-01-03 | [facility] | NEGATIVE | (missing) | (missing) | | (unavailable | 21:45:07 | [facility] | | | | + + + + + + + + + | Result panel 1562 | + + + + + +---------+ + + | | 2023-01-03 | [facility] | 7.319 | (missing) | (missing) | | (unavailable | 21:45:07 [facility] | | | | + + + +---------+ + + + + | Result panel 1563 | + + + + + +-------+ + + | | 2023-01-03 | [facility] | 7.9 | (missing) | (missing) | | (unavailable | 21:45:07 | [facility] | | | | + + + +-------+ + + + + | Result panel 1564 | + + + + + +-------+ + + | | 2023-01-03 | [facility] | 3.7 | (missing) | (missing) | | (unavailable | 21:45:07 [facility] | | | | + + + +-------+ + + + + | Result panel 1565 | + + + + + +-------+ + + | | 2023-01-03 | [facility] | 4.2 | (missing) | (missing) | | (unavailable | 21:45:07 [facility] | | | | + + + +-------+ + + + + | Result panel 1566 | + + + + + +--------+ + + | | 2023-01-03 | [facility] | 0.88 | (missing) | (missing) | | (unavailable | 21:45:07 [facility] | | | | + + + +--------+ + + + + | Result panel 1567 | + + + + + +-------+ + + | | 2023-01-03 | [facility] | 0.2 | (missing) | (missing) | | (unavailable | 21:45:07 [facility] | | | | + + + +-------+ + + + + | Result panel 1568 | + + + + + +------+ + + | | 2023-01-03 | [facility] | 25 | (missing) | (missing) | | (unavailable | 21:45:07 | [facility] | | | | + + + +------+ + + + + | Result panel 1569 | + + + + + +------+ + + | | 2023-01-03 | [facility] | 25 | (missing) | (missing) | | (unavailable | 21:45:07 | [facility] | | | | + + + +------+ + + + + | Result panel 1570 | + + + + + +-------+ + + | | 2023-01-03 | [facility] | 245 | (missing) | (missing) | | (unavailable | 21:45:07 | [facility] | | | | + + + +-------+ + + + + | Result panel 1571 | + + + + + + + + + | | 2023-01-03 | [facility] | NEGATIVE | (missing) | (missing) | | (unavailable | 21:45:07 | [facility] | | | | + + + + + + + + + | Result panel 1572 | + + + + + + + + + | | 2023-01-03 | [facility] | NEGATIVE | (missing) | (missing) | | (unavailable | 21:45:07 | [facility] | | | | + + + + + + + + + | Result panel 1573 | + + + + + + + + + | | 2023-01-03 | [facility] | NEGATIVE | (missing) | (missing) | | (unavailable | 23:28:07 | [facility] | | | | + + + + + + + + + | Result panel 1574 | + + + + + + + + + | | 2023-01-03 | [facility] | NEGATIVE | (missing) | (missing) | | (unavailable | 23:28:07 | [facility] | | | | + + + + + + + + + | Result panel 1575 | + + + + + + + + + | | 2023-01-03 | [facility] [facility] | NEGATIVE | (missing) | (missing) | | (unavailable | 23:28:07 | [facility] | | | | + + + + + + + + + | Result panel 1576 | + + + + + + + + + | | 2023-01-03 | [facility] | NEGATIVE | (missing) | (missing) | | (unavailable | 23:28:07 [facility] | | | + + + + + + + + + | Result panel 1577 | + + + + + +-------+ + + | | 2023-01-04 | [facility] | 363 | (missing) | (missing) | | (unavailable | 01:16:07 | [facility] | | | + + + +-------+ + + + + | Result panel 1578 | + + + + + +-------+---------+ + | | 2023-01-04 | [facility] | 1.9 | mg/dL | (missing) | | (unavailable | 05:33:07 [facility] | | | + + + +-------+---------+ + + + | Result panel 1579 | + + + + + +-------+---------+ + | | 2023-01-04 | [facility] | 303 | mg/dL | (missing) | | (unavailable | 05:33:07 [facility] | | | + + + +-------+---------+ + + + | Result panel 1580 | + + + + + +------+ + + | | 2023-01-04 | [facility] | 47 | (missing) | (missing) | | (unavailable | 05:33:07 [facility] | | | + + + +------+ + + + + | Result panel 1581 | + + + + + + + + + | | 2023-01-04 | [facility] | 256.00 | (missing) | (missing) | | (unavailable | 05:33:07 [facility] | | | + + + + + + + + + | Result panel 1582 | + + + + + +-------+ + + | | 2023-01-04 | [facility] | 6.4 | (missing) | (missing) | | (unavailable | 05:33:07 [facility] | | | + + + +-------+ + + + + | Result panel 1583 | + + + + + +-------+ + + | | 2023-01-04 | [facility] | 611 | (missing) | (missing) | | (unavailable | 05:33:07 [facility] | | | + + + +-------+ + + + + | Result panel 1584 | + + + + + +-------+---------+ + | | 2023-01-04 | [facility] | 1.9 | mg/dL | (missing) | | (unavailable | 05:33:07 [facility] | | | + + + +-------+---------+ + + + | Result panel 1585 | + + + + + +-------+---------+ + | | 2023-01-04 | [facility] | 303 | mg/dL | (missing) | | (unavailable | 05:33:07 [facility] | | | + + + +-------+---------+ + + + | Result panel 1586 | + + + + + +------+ + + | | 2023-01-04 | [facility] | 47 | (missing) | (missing) | | (unavailable | 05:33:07 [facility] | | | + + + +------+ + + + + | Result panel 1587 | + + + + + + + + + | | 2023-01-04 | [facility] | 256.00 | (missing) | (missing) | | (unavailable | 05:33:07 [facility] | | | + + + + + + + + + | Result panel 1588 | + + + + + +-------+ + + | | 2023-01-04 | [facility] | 6.4 | (missing) | (missing) | | (unavailable | 05:33:07 [facility] | | | + + + +-------+ + + + + | Result panel 1589 | + + + + + +-------+ + + | | 2023-01-04 | [facility] | 611 | (missing) | (missing) | | (unavailable | 05:33:07 [facility] | | | + + + +-------+ + + + + | Result panel 1590 | + + + + + +-------+---------+ + | | 2023-01-04 | [facility] | 1.9 | mg/dL | (missing) | | (unavailable | 05:33:07 [facility] | | | + + + +-------+---------+ + + + | Result panel 1591 | + + + + + +-------+---------+ + | | 2023-01-04 | [facility] | 303 | mg/dL | (missing) | | (unavailable | 05:33:07 [facility] | | | + + + +-------+---------+ + + + | Result panel 1592 | + + + + + +------+ + + | | 2023-01-04 | [facility] | 47 | (missing) | (missing) | | (unavailable | 05:33:07 [facility] | | | + + + +------+ + + + + | Result panel 1593 | + + + + + + + + + | | 2023-01-04 | [facility] | 256.00 | (missing) | (missing) | | (unavailable | 05:33:07 [facility] | | | + + + + + + + + + | Result panel 1594 | + + + + + +-------+ + + | | 2023-01-04 | [facility] | 6.4 | (missing) | (missing) | | (unavailable | 05:33:07 [facility] | | | + + + +-------+ + + + + | Result panel 1595 | + + + + + +-------+ + + | | 2023-01-04 | [facility] | 611 | (missing) | (missing) | | (unavailable | 05:33:07 [facility] | | | + + + +-------+ + + + + | Result panel 1596 | + + + + + +-------+---------+ + | | 2023-01-04 | [facility] | 1.9 | mg/dL | (missing) | | (unavailable | 05:33:07 [facility] | | | + + + +-------+---------+ + + + | Result panel 1597 | + + + + + +-------+---------+ + | | 2023-01-04 | [facility] | 303 | mg/dL | (missing) | | (unavailable | 05:33:07 [facility] | | | + + + +-------+---------+ + + + | Result panel 1598 | + + + + + +------+ + + | | 2023-01-04 | [facility] | 47 | (missing) | (missing) | | (unavailable | 05:33:07 [facility] | | | + + + +------+ + + + + | Result panel 1599 | + + + + + + + + + | | 2023-01-04 | [facility] | 256.00 | (missing) | (missing) | | (unavailable | 05:33:07 [facility] | | | + + + + + + + + + | Result panel 1600 | + + + + + +-------+ + + | | 2023-01-04 | [facility] | 6.4 | (missing) | (missing) | | (unavailable | 05:33:07 [facility] | | | + + + +-------+ + + + + | Result panel 1601 | + + + + + +-------+ + + | | 2023-01-04 | [facility] | 611 | (missing) | (missing) | | (unavailable | 05:33:07 [facility] | | | + + + +-------+ + + + + | Result panel 1602 | + + + + + +--------+ + + | | 2023-01-05 | [facility] | 2577 | (missing) | (missing) | | (unavailable | 05:35:07 [facility] | | | + + + +--------+ + + + + | Result panel 1603 | + + + + + +-------+ + + | | 2023-01-05 | [facility] | 4.7 | (missing) | (missing) | | (unavailable | 05:35:07 [facility] | | | + + + +-------+ + + + + | Result panel 1604 | + + + + + +--------+ + + | | 2023-01-05 | [facility] | 3.15 | (missing) | (missing) | | (unavailable | 05:35:07 [facility] | | | + + + +--------+ + + + + | Result panel 1605 | + + + + + +-------+ + + | | 2023-01-05 | [facility] | 9.1 | (missing) | (missing) | | (unavailable | 05:35:07 [facility] | | | + + + +-------+ + + + + | Result panel 1606 | + + + + + +--------+ + + | | 2023-01-05 | [facility] | 28.3 | (missing) | (missing) | | (unavailable | 05:35:07 [facility] | | | + + + +--------+ + + + + | Result panel 1607 | + + + + + +--------+ + + | | 2023-01-05 | [facility] | 89.7 | (missing) | (missing) | | (unavailable | 05:35:07 [facility] | | | + + + +--------+ + + + + | Result panel 1608 | + + + + + +--------+ + + | | 2023-01-05 | [facility] | 28.8 | (missing) | (missing) | | (unavailable | 05:35:07 [facility] | | | + + + +--------+ + + + + | Result panel 1609 | + + + + + +--------+ + + | | 2023-01-05 | [facility] | 32.1 | (missing) | (missing) | | (unavailable | 05:35:07 [facility] | | | + + + +--------+ + + + + | Result panel 1610 | + + + + + +--------+ + + | | 2023-01-05 | [facility] | 15.7 | (missing) | (missing) | | (unavailable | 05:35:07 [facility] | | | + + + +--------+ + + + + | Result panel 1611 | + + + + + +-------+ + + | | 2023-01-05 | [facility] | 248 | (missing) | (missing) | | (unavailable | 05:35:07 [facility] | | | + + + +-------+ + + + + | Result panel 1612 | + + + + + +--------+ + + | | 2023-01-05 | [facility] | 45.4 | (missing) | (missing) | | (unavailable | 05:35:07 [facility] | | | + + + +--------+ + + + + | Result panel 1613 | + + + + + +--------+ + + | | 2023-01-05 | [facility] | 41.1 | (missing) | (missing) | | (unavailable | 05:35:07 [facility] | | | + + + +--------+ + + + + | Result panel 1614 | + + + + + +-------+ + + | | 2023-01-05 | [facility] | 8.1 | (missing) | (missing) | | (unavailable | 05:35:07 [facility] | | | + + + +-------+ + + + + | Result panel 1615 | + + + + + +-------+ + + | | 2023-01-05 | [facility] | 4.9 | (missing) | (missing) | | (unavailable | 05:35:07 [facility] | | | + + + +-------+ + + + + | Result panel 1616 | + + + + + +-------+ + + | | 2023-01-05 | [facility] | 0.5 | (missing) | (missing) | | (unavailable | 05:35:07 [facility] | | | + + + +-------+ + + + + | Result panel 1617 | + + + + + +-------+---------+ + | | 2023-01-05 | [facility] | 177 | mg/dL | (missing) | | (unavailable | 05:35:07 [facility] | | | + + + +-------+---------+ + + + | Result panel 1618 | + + + + + +------+---------+ + | | 2023-01-05 | [facility] | 15 | mg/dL | (missing) | | (unavailable | 05:35:07 [facility] | | | + + + +------+---------+ + + + | Result panel 1619 | + + + + + +--------+---------+ + | | 2023-01-05 | [facility] | 1.57 | mg/dL | (missing) | | (unavailable | 05:35:07 [facility] | | | + + + +--------+---------+ + + + | Result panel 1620 | + + + + + +------+ + + | | 2023-01-05 | [facility] | 47 | (missing) | (missing) | | (unavailable | 05:35:07 [facility] | | | + + + +------+ + + + + | Result panel 1621 | + + + + + +--------+ + + | | 2023-01-05 | [facility] | 9.55 | (missing) | (missing) | | (unavailable | 05:35:07 [facility] | | | + + + +--------+ + + + + | Result panel 162 | + + + + + +-------+ + + | | 2023-01-05 | [facility] | 140 | (missing) | (missing) | | (unavailable | 05:35:07 [facility] | | | + + + +-------+ + + + + | Result panel 162 | + + + + + +-------+ + + | | 2023-01-05 | [facility] | 3.7 | (missing) | (missing) | | (unavailable | 05:35:07 [facility] | | | + + + +-------+ + + + + | Result panel 1624 | + + + + + +-------+ + + | | 2023-01-05 | [facility] | 108 | (missing) | (missing) | | (unavailable | 05:35:07 [facility] | | | + + + +-------+ + + + + | Result panel 1625 | + + + + + +------+ + + | | 2023-01-05 | [facility] | 21 | (missing) | (missing) | | (unavailable | 05:35:07 [facility] | | | + + + +------+ + + + + | Result panel 1626 | + + + + + +--------+ + + | | 2023-01-05 | [facility] | 14.7 | (missing) | (missing) | | (unavailable | 05:35:07 [facility] | | | + + + +--------+ + + + + | Result panel 1627 | + + + + + +-------+---------+ + | | 2023-01-05 | [facility] | 8.6 | mg/dL | (missing) | | (unavailable | 05:35:07 [facility] | | | + + + +-------+---------+ + + + | Result panel 1628 | + + + + + +--------+ + + | | 2023-01-05 | [facility] | 2577 | (missing) | (missing) | | (unavailable | 05:35:07 [facility] | | | + + + +--------+ + + + + | Result panel 1629 | + + + + + +-------+ + + | | 2023-01-05 | [facility] | 219 | (missing) | (missing) | | (unavailable | 07:30:07 [facility] | | | + + + +-------+ + + + + | Result panel 1630 | + + + + + + + + + | | 2023-01-20 | [facility] | YELLOW | (missing) | (missing) | | (unavailable | 23:46:07 [facility] | | | + + + + + + + + + | Result panel 1631 | + + + + + +---------+ + + | | 2023-01-20 | [facility] | CLEAR | (missing) | (missing) | | (unavailable | 23:46:07 [facility] | | | + + + +---------+ + + + + | Result panel 1632 | + + + + + + + + + | | 2023-01-20 | [facility] | >=1000 | (missing) | (missing) | | (unavailable | 23:46:07 [facility] | | | + + + + + + + + + | Result panel 1633 | + + + + + + + + + | | 2023-01-20 | [facility] | NEGATIVE | (missing) | (missing) | | (unavailable | 23:46:07 [facility] | | | + + + + + + + + + | Result panel 1634 | + + + + + + + + + | | 2023-01-20 | [facility] | NEGATIVE | (missing) | (missing) | | (unavailable | 23:46:07 [facility] | | | + + + + + + + + + | Result panel 1635 | + + + + + +---------+ + + | | 2023-01-20 | [facility] | 1.020 | (missing) | (missing) | | (unavailable | 23:46:07 [facility] | | | + + + +---------+ + + + + | Result panel 1636 | + + + + + + + + + | | 2023-01-20 | [facility] | TRACE-I | (missing) | (missing) | | (unavailable | 23:46:07 [facility] | | | + + + + + + + + + | Result panel 1637 | + + + + + +-------+ + + | | 2023-01-20 | [facility] | 6.5 | (missing) | (missing) | | (unavailable | 23:46:07 [facility] | | | + + + +-------+ + + + + | Result panel 1638 | + + + + + +-------+ + + | | 2023-01-20 | [facility] | 100 | (missing) | (missing) | | (unavailable | 23:46:07 [facility] | | | + + + +-------+ + + + + | Result panel 1639 | + + + + + + + + + | | 2023-01-20 | [facility] | NORMAL | (missing) | (missing) | | (unavailable | 23:46:07 [facility] | | | + + + + + + + + + | Result panel 1640 | + + + + + + + + + | | 2023-01-20 | [facility] | NEGATIVE | (missing) | (missing) | | (unavailable | 23:46:07 [facility] | | | + + + + + + + + + | Result panel 1641 | + + + + + + + + + | | 2023-01-20 | [facility] | NEGATIVE | (missing) | (missing) | | (unavailable | 23:46:07 [facility] | | | + + + + + + + + + | Result panel 1642 | + + + + + +-------+ + + | | 2023-01-20 | [facility] | 2-3 | (missing) | (missing) | | (unavailable | 23:46:07 [facility] | | | + + + +-------+ + + + + | Result panel 1643 | + + + + + +---------+ + + | | 2023-01-20 | [facility] | 12-20 | (missing) | (missing) | | (unavailable | 23:46:07 [facility] | | | + + + +---------+ + + + + | Result panel 1644 | + + + + + + + + + | | 2023-01-20 | [facility] | SQUAMOUS 2+ | (missing) | (missing) | | (unavailable | 23:46:07 [facility] | | | + + + + + + + + + | Result panel 1645 | + + + + + + + + + | | 2023-01-20 | [facility] | NONE SEEN | (missing) | (missing) | | (unavailable | 23:46:07 [facility] | | | + + + + + + + + + | Result panel 1646 | + + + + + +--------+ + + | | 2023-01-20 | [facility] | RARE | (missing) | (missing) | | (unavailable | 23:46:07 [facility] | | | + + + +--------+ + + + + | Result panel 1647 | + + + + + + + + + | | 2023-01-20 | [facility] | NONE SEEN | (missing) | (missing) | | (unavailable | 23:46:07 [facility] | | | + + + + + + + + + | Result panel 1648 | + + + + + +------+ + + | | 2023-01-20 | [facility] | No | (missing) | (missing) | | (unavailable | 23:46:07 [facility] | | | + + + +------+ + + + + | Result panel 1649 | + + + + + + + + + | | 2023-01-20 | [facility] | NEGATIVE | (missing) | (missing) | | (unavailable | 23:46:07 [facility] | | | + + + + + + + + + | Result panel 1650 | + + + + + + + + + | | 2023-01-20 | [facility] | NONE SEEN | (missing) | (missing) | | (unavailable | 23:46:07 [facility] | | | + + + + + + + + + | Result panel 1651 | + + + + + +--------+ + + | | 2023-01-20 | [facility] | RARE | (missing) | (missing) | | (unavailable | 23:46:07 [facility] | | | + + + +--------+ + + + + | Result panel 165 | + + + + + + + + + | | 2023-01-20 | [facility] | NONE SEEN | (missing) | (missing) | | (unavailable | 23:46:07 [facility] | | | + + + + + + + + + | Result panel 165 | + + + + + + + + + | | 2023-01-20 | [facility] | NONE SEEN | (missing) | (missing) | | (unavailable | 23:46:07 [facility] | | | + + + + + + + + + | Result panel 1654 | + + + + + +--------+ + + | | 2023-01-20 | [facility] | RARE | (missing) | (missing) | | (unavailable | 23:46:07 [facility] | | | + + + +--------+ + + + + | Result panel 1655 | + + + + + + + + + | | 2023-01-20 | [facility] | NONE SEEN | (missing) | (missing) | | (unavailable | 23:46:07 [facility] | | | + + + + + + + + + | Result panel 1656 | + + + + + +-------+ + + | | 2023-01-21 | [facility] | 6.0 | (missing) | (missing) | | (unavailable | 00:35:07 [facility] | | | + + + +-------+ + + + + | Result panel 165 | + + + + + +--------+ + + | | 2023-01-21 | [facility] | 3.25 | (missing) | (missing) | | (unavailable | 00:35:07 [facility] | | | + + + +--------+ + + + + | Result panel 165 | + + + + + +-------+ + + | | 2023-01-21 | [facility] | 9.7 | (missing) | (missing) | | (unavailable | 00:35:07 [facility] | | | + + + +-------+ + + + + | Result panel 165 | + + + + + +--------+ + + | | 2023-01-21 | [facility] | 28.6 | (missing) | (missing) | | (unavailable | 00:35:07 [facility] | | | + + + +--------+ + + + + | Result panel 1660 | + + + + + +--------+ + + | | 2023-01-21 | [facility] | 88.0 | (missing) | (missing) | | (unavailable | 00:35:07 [facility] | | | + + + +--------+ + + + + | Result panel 1661 | + + + + + +--------+ + + | | 2023-01-21 | [facility] | 29.9 | (missing) | (missing) | | (unavailable | 00:35:07 [facility] | | | + + + +--------+ + + + + | Result panel 1662 | + + + + + +--------+ + + | | 2023-01-21 | [facility] | 33.9 | (missing) | (missing) | | (unavailable | 00:35:07 [facility] | | | + + + +--------+ + + + + | Result panel 1663 | + + + + + +--------+ + + | | 2023-01-21 | [facility] | 14.8 | (missing) | (missing) | | (unavailable | 00:35:07 [facility] | | | + + + +--------+ + + + + | Result panel 1664 | + + + + + +-------+ + + | | 2023-01-21 | [facility] | 391 | (missing) | (missing) | | (unavailable | 00:35:07 [facility] | | | + + + +-------+ + + + + | Result panel 1665 | + + + + + +--------+ + + | | 2023-01-21 | [facility] | 42.5 | (missing) | (missing) | | (unavailable | 00:35:07 [facility] | | | + + + +--------+ + + + + | Result panel 1666 | + + + + + +--------+ + + | | 2023-01-21 | [facility] | 43.9 | (missing) | (missing) | | (unavailable | 00:35:07 [facility] | | | + + + +--------+ + + + + | Result panel 1667 | + + + + + +--------+ + + | | 2023-01-21 | [facility] | 10.5 | (missing) | (missing) | | (unavailable | 00:35:07 [facility] | | | + + + +--------+ + + + + | Result panel 1668 | + + + + + +-------+ + + | | 2023-01-21 | [facility] | 2.5 | (missing) | (missing) | | (unavailable | 00:35:07 [facility] | | | + + + +-------+ + + + + | Result panel 1669 | + + + + + +-------+ + + | | 2023-01-21 | [facility] | 0.6 | (missing) | (missing) | | (unavailable | 00:35:07 [facility] | | | + + + +-------+ + + + + | Result panel 1670 | + + + + + +-------+---------+ + | | 2023-01-21 | [facility] | 257 | mg/dL | (missing) | | (unavailable | 00:35:07 [facility] | | | + + + +-------+---------+ + + + | Result panel 1671 | + + + + + +------+---------+ + | | 2023-01-21 | [facility] | 37 | mg/dL | (missing) | | (unavailable | 00:35:07 [facility] | | | + + + +------+---------+ + + + | Result panel 167 | + + + + + +--------+---------+ + | | 2023-01-21 | [facility] | 2.15 | mg/dL | (missing) | | (unavailable | 00:35:07 [facility] | | | + + + +--------+---------+ + + + | Result panel 1673 | + + + + + +------+ + + | | 2023-01-21 | [facility] | 32 | (missing) | (missing) | | (unavailable | 00:35:07 [facility] | | | + + + +------+ + + + + | Result panel 1674 | + + + + + +---------+ + + | | 2023-01-21 | [facility] | 17.20 | (missing) | (missing) | | (unavailable | 00:35:07 [facility] | | | + + + +---------+ + + + + | Result panel 1675 | + + + + + +-------+ + + | | 2023-01-21 | [facility] | 135 | (missing) | (missing) | | (unavailable | 00:35:07 [facility] | | | + + + +-------+ + + + + | Result panel 1676 | + + + + + +-------+ + + | | 2023-01-21 | [facility] | 3.7 | (missing) | (missing) | | (unavailable | 00:35:07 [facility] | | | | + + + +-------+ + + + + | Result panel 1677 | + + + + + +-------+ + + | | 2023-01-21 | [facility] | 100 | (missing) | (missing) | | (unavailable | 00:35:07 [facility] | | | + + + +-------+ + + + + | Result panel 1678 | + + + + + +------+ + + | | 2023-01-21 | [facility] | 21 | (missing) | (missing) | | (unavailable | 00:35:07 [facility] | | | + + + +------+ + + + + | Result panel 1679 | + + + + + +--------+ + + | | 2023-01-21 | [facility] | 17.7 | (missing) | (missing) | | (unavailable | 00:35:07 [facility] | | | + + + +--------+ + + + + | Result panel 1680 | + + + + + +-------+---------+ + | | 2023-01-21 | [facility] | 8.8 | mg/dL | (missing) | | (unavailable | 00:35:07 [facility] | | | + + + +-------+---------+ + + + | Result panel 1681 | + + + + + +-------+ + + | | 2023-01-21 | [facility] | 7.9 | (missing) | (missing) | | (unavailable | 00:35:07 | [facility] | | | | + + + +-------+ + + + + | Result panel 1682 | + + + + + +-------+ + + | | 2023-01-21 | [facility] | 3.7 | (missing) | (missing) | | (unavailable | 00:35:07 | [facility] | | | | + + + +-------+ + + + + | Result panel 1683 | + + + + + +-------+ + + | | 2023-01-21 | [facility] | 4.2 | (missing) | (missing) | | (unavailable | 00:35:07 | [facility] | | | | + + + +-------+ + + + + | Result panel 1684 | + + + + + +--------+ + + | | 2023-01-21 | [facility] | 0.88 | (missing) | (missing) | | (unavailable | 00:35:07 [facility] | | | | + + + +--------+ + + + + | Result panel 1685 | + + + + + +-------+ + + | | 2023-01-21 | [facility] | 0.2 | (missing) | (missing) | | (unavailable | 00:35:07 [facility] | | | | + + + +-------+ + + + + | Result panel 1686 | + + + + + +------+ + + | | 2023-01-21 | [facility] | 32 | (missing) | (missing) | | (unavailable | 00:35:07 [facility] | | | | + + + +------+ + + + + | Result panel 168 | + + + + + +------+ + + | | 2023-01-21 | [facility] | 32 | (missing) | (missing) | | (unavailable | 00:35:07 [facility] | | | | + + + +------+ + + + + | Result panel 168 | + + + + + +-------+ + + | | 2023-01-21 | [facility] | 289 | (missing) | (missing) | | (unavailable | 00:35:07 | [facility] | | | | + + + +-------+ + + + + | Result panel 1689 | + + + + + +-------+ + + | | 2023-01-26 | [facility] | 6.5 | (missing) | (missing) | | (unavailable | 22:07:07 | [facility] | | | | + + + +-------+ + + + + | Result panel 1690 | + + + + + +--------+ + + | | 2023-01-26 | [facility] | 3.20 | (missing) | (missing) | | (unavailable | 22:07:07 | [facility] | | | | + + + +--------+ + + + + | Result panel 1691 | + + + + + +-------+ + + | | 2023-01-26 | [facility] | 9.4 | (missing) | (missing) | | (unavailable | 22::07 | [facility] | | | | + + + +-------+ + + + + | Result panel 1692 | + + + + + +--------+ + + | | 2023-01-26 | [facility] | 28.1 | (missing) | (missing) | | (unavailable | 22:07:07 | [facility] | | | | + + + +--------+ + + + + | Result panel 169 | + + + + + +--------+ + + | | 2023-01-26 | [facility] | 87.8 | (missing) | (missing) | | (unavailable | ::07 | [facility] | | | | + + + +--------+ + + + + | Result panel 1694 | + + + + + +--------+ + + | | 2023-01-26 | [facility] | 29.3 | (missing) | (missing) | | (unavailable | 22:07:07 [facility] | | | | + + + +--------+ + + + + | Result panel 1695 | + + + + + +--------+ + + | | 2023-01-26 | [facility] | 33.4 | (missing) | (missing) | | (unavailable | 22:07:07 [facility] | | | | + + + +--------+ + + + + | Result panel 1696 | + + + + + +--------+ + + | | 2023-01-26 | [facility] | 15.0 | (missing) | (missing) | | (unavailable | 22:07:07 [facility] | | | | + + + +--------+ + + + + | Result panel 1697 | + + + + + +-------+ + + | | 2023-01-26 | [facility] | 310 | (missing) | (missing) | | (unavailable | :07:07 | [facility] | | | | + + + +-------+ + + + + | Result panel 1698 | + + + + + +--------+ + + | | 2023-01-26 | [facility] | 49.3 | (missing) | (missing) | | (unavailable | 22::07 [facility] | | | + + + +--------+ + + + + | Result panel 1699 | + + + + + +--------+ + + | | 2023-01-26 | [facility] | 38.3 | (missing) | (missing) | | (unavailable | 22::07 [facility] | | | + + + +--------+ + + + + | Result panel 1700 | + + + + + +-------+ + + | | 2023-01-26 | [facility] | 9.1 | (missing) | (missing) | | (unavailable | 22:07:07 [facility] | | | + + + +-------+ + + + + | Result panel 1701 | + + + + + +-------+ + + | | 2023-01-26 | [facility] | 2.4 | (missing) | (missing) | | (unavailable | 22:07:07 [facility] | | | + + + +-------+ + + + + | Result panel 1702 | + + + + + +-------+ + + | | 2023-01-26 | [facility] | 0.9 | (missing) | (missing) | | (unavailable | 22:07:07 [facility] | | | + + + +-------+ + + + + | Result panel 1703 | + + + + + +-------+---------+ + | | 2023-01-26 | [facility] | 190 | mg/dL | (missing) | | (unavailable | 22:07:07 [facility] | | | + + + +-------+---------+ + + + | Result panel 1704 | + + + + + +-------+ + + | | 2023-01-26 | [facility] | 175 | (missing) | (missing) | | (unavailable | 22:07:07 [facility] | | | + + + +-------+ + + + + | Result panel 1705 | + + + + + +------+---------+ + | | 2023-01-26 | [facility] | 29 | mg/dL | (missing) | | (unavailable | 22:07:07 [facility] | | | + + + +------+---------+ + + + | Result panel 1706 | + + + + + +--------+---------+ + | | 2023-01-26 | [facility] | 2.47 | mg/dL | (missing) | | (unavailable | 22::07 [facility] | | | + + + +--------+---------+ + + + | Result panel 1707 | + + + + + +------+ + + | | 2023-01-26 | [facility] | 27 | (missing) | (missing) | | (unavailable | 22:07:07 [facility] | | | + + + +------+ + + + + | Result panel 1708 | + + + + + +---------+ + + | | 2023-01-26 | [facility] | 11.74 | (missing) | (missing) | | (unavailable | 22:07:07 [facility] | | | + + + +---------+ + + + + | Result panel 1709 | + + + + + +-------+ + + | | 2023-01-26 | [facility] | 140 | (missing) | (missing) | | (unavailable | 22:07:07 [facility] | | | + + + +-------+ + + + + | Result panel 1710 | + + + + + +-------+ + + | | 2023-01-26 | [facility] | 3.7 | (missing) | (missing) | | (unavailable | 22:07:07 [facility] | | | + + + +-------+ + + + + | Result panel 171 | + + + + + +-------+ + + | | 2023-01-26 | [facility] | 103 | (missing) | (missing) | | (unavailable | 22:07:07 [facility] | | | + + + +-------+ + + + + | Result panel 171 | + + + + + +------+ + + | | 2023-01-26 | [facility] | 22 | (missing) | (missing) | | (unavailable | 22:07:07 [facility] | | | + + + +------+ + + + + | Result panel 1713 | + + + + + +--------+ + + | | 2023-01-26 | [facility] | 18.7 | (missing) | (missing) | | (unavailable | 22::07 [facility] | | | + + + +--------+ + + + + | Result panel 1714 | + + + + + +-------+---------+ + | | 2023-01-26 | [facility] | 8.8 | mg/dL | (missing) | | (unavailable | ::07 | [facility] | | | + + + +-------+---------+ + + + | Result panel 1715 | + + + + + +-------+ + + | | 2023-01-26 | [facility] | 7.9 | (missing) | (missing) | | (unavailable | ::07 | [facility] | | | + + + +-------+ + + + + | Result panel 1716 | + + + + + +-------+ + + | | 2023-01-26 | [facility] | 3.5 | (missing) | (missing) | | (unavailable | ::07 | [facility] | | | + + + +-------+ + + + + | Result panel 1717 | + + + + + +-------+ + + | | 2023-01-26 | [facility] | 4.4 | (missing) | (missing) | | (unavailable | 22:07:07 [facility] | | | + + + +-------+ + + + + | Result panel 1718 | + + + + + +--------+ + + | | 2023-01-26 | [facility] | 0.80 | (missing) | (missing) | | (unavailable | 22:07:07 [facility] | | | + + + +--------+ + + + + | Result panel 1719 | + + + + + +-------+ + + | | 2023-01-26 | [facility] | 0.2 | (missing) | (missing) | | (unavailable | 22:07:07 [facility] | | | + + + +-------+ + + + + | Result panel 1720 | + + + + + +------+ + + | | 2023-01-26 | [facility] | 28 | (missing) | (missing) | | (unavailable | 22:07:07 [facility] | | | + + + +------+ + + + + | Result panel 1721 | + + + + + +------+ + + | | 2023-01-26 | [facility] | 33 | (missing) | (missing) | | (unavailable | 22:07:07 [facility] | | | + + + +------+ + + + + | Result panel 1722 | + + + + + +-------+ + + | | 2023-01-26 | [facility] | 300 | (missing) | (missing) | | (unavailable | ::07 | [facility] | | | + + + +-------+ + + + + | Result panel 1723 | + + + + + +-------+ + + | | 2023-01-26 | [facility] | 230 | (missing) | (missing) | | (unavailable | 22:07:07 [facility] | | | + + + +-------+ + + + + | Result panel 1724 | + + + + + + + + + | | 2023-01-26 | [facility] | NEGATIVE | (missing) | (missing) | | (unavailable | 23:05:07 [facility] | | | + + + + + + + + + | Result panel 1725 | + + + + + + + + + | | 2023-01-26 | [facility] | NEGATIVE | (missing) | (missing) | | (unavailable | 23:05:07 [facility] | | | + + + + + + + + + | Result panel 1726 | + + + + + + + + + | | 2023-01-26 | [facility] | YELLOW | (missing) | (missing) | | (unavailable | 23:05:07 [facility] | | | + + + + + + + + + | Result panel 1727 | + + + + + +---------+ + + | | 2023-01-26 | [facility] | CLEAR | (missing) | (missing) | | (unavailable | 23:05:07 [facility] | | | + + + +---------+ + + + + | Result panel 1728 | + + + + + + + + + | | 2023-01-26 | [facility] | >=1000 | (missing) | (missing) | | (unavailable | 23:05:07 [facility] | | | + + + + + + + + + | Result panel 1729 | + + + + + + + + + | | 2023-01-26 | [facility] | NEGATIVE | (missing) | (missing) | | (unavailable | 23:05:07 [facility] | | | + + + + + + + + + | Result panel 1730 | + + + + + + + + + | | 2023-01-26 | [facility] | NEGATIVE | (missing) | (missing) | | (unavailable | 23:05:07 [facility] | | | + + + + + + + + + | Result panel 1731 | + + + + + +---------+ + + | | 2023-01-26 | [facility] | 1.015 | (missing) | (missing) | | (unavailable | 23:05:07 [facility] | | | + + + +---------+ + + + + | Result panel 1732 | + + + + + +---------+ + + | | 2023-01-26 | [facility] | SMALL | (missing) | (missing) | | (unavailable | 23:05:07 [facility] | | | + + + +---------+ + + + + | Result panel 1733 | + + + + + +-------+ + + | | 2023-01-26 | [facility] | 6.0 | (missing) | (missing) | | (unavailable | 23:05:07 [facility] | | | + + + +-------+ + + + + | Result panel 1734 | + + + + + +-------+ + + | | 2023-01-26 | [facility] | 100 | (missing) | (missing) | | (unavailable | ::07 | [facility] | | | + + + +-------+ + + + + | Result panel 1735 | + + + + + + + + + | | 2023-01-26 | [facility] | NORMAL | (missing) | (missing) | | (unavailable | ::07 | [facility] | | | + + + + + + + + + | Result panel 1736 | + + + + + + + + + | | 2023-01-26 | [facility] | NEGATIVE | (missing) | (missing) | | (unavailable | 23::07 | [facility] | | | | + + + + + + + + + | Result panel 1737 | + + + + + + + + + | | 2023-01-26 | [facility] | NEGATIVE | (missing) | (missing) | | (unavailable | ::07 | [facility] | | | + + + + + + + + + | Result panel 1738 | + + + + + +-------+ + + | | 2023-01-26 | [facility] | 2-3 | (missing) | (missing) | | (unavailable | 23:05:07 [facility] | | | + + + +-------+ + + + + | Result panel 1739 | + + + + + +-------+ + + | | 2023-01-26 | [facility] | 0-1 | (missing) | (missing) | | (unavailable | 23:05:07 [facility] | | | + + + +-------+ + + + + | Result panel 1740 | + + + + + + + + + | | 2023-01-26 | [facility] | SQUAMOUS 2+ | (missing) | (missing) | | (unavailable | ::07 | [facility] | | | + + + + + + + + + | Result panel 1741 | + + + + + +------+ + + | | 2023-01-26 | [facility] | No | (missing) | (missing) | | (unavailable | 23:05:07 [facility] | | | + + + +------+ + + + + | Result panel 1742 | + + + + + + + + + | | 2023-01-26 | [facility] | NEGATIVE | (missing) | (missing) | | (unavailable | 23:05:07 [facility] | | | + + + + + + + + + | Result panel 1743 | + + + + + + + + + | | 2023-01-26 | [facility] | NEGATIVE | (missing) | (missing) | | (unavailable | 23:05:07 [facility] | | | + + + + + + + + + | Result panel 1744 | + + + + + +---------+ + + | | 2023-02-02 | [facility] | 7.259 | (missing) | (missing) | | (unavailable | 01:00:07 [facility] | | | + + + +---------+ + + + + | Result panel 1745 | + + + + + +---------+ + + | | 2023-02-02 | [facility] | 7.259 | (missing) | (missing) | | (unavailable | 01:00:07 [facility] | | | + + + +---------+ + + + + | Result panel 1746 | + + + + + + + + + | | 2023-02-02 | [facility] | NEGATIVE | (missing) | (missing) | | (unavailable | 01:00:07 [facility] | | | + + + + + + + + + | Result panel 1747 | + + + + + +-------+ + + | | 2023-02-02 | [facility] | 7.1 | (missing) | (missing) | | (unavailable | 01:00:07 [facility] | | | + + + +-------+ + + + + | Result panel 1748 | + + + + + +--------+ + + | | 2023-02-02 | [facility] | 3.47 | (missing) | (missing) | | (unavailable | 01:00:07 [facility] | | | + + + +--------+ + + + + | Result panel 1749 | + + + + + +--------+ + + | | 2023-02-02 | [facility] | 10.1 | (missing) | (missing) | | (unavailable | 01:00:07 [facility] | | | + + + +--------+ + + + + | Result panel 175 | + + + + + +--------+ + + | | 2023-02-02 | [facility] | 31.0 | (missing) | (missing) | | (unavailable | 01:00:07 [facility] | | | + + + +--------+ + + + + | Result panel 175 | + + + + + +--------+ + + | | 2023-02-02 | [facility] | 89.4 | (missing) | (missing) | | (unavailable | 01:00:07 [facility] | | | + + + +--------+ + + + + | Result panel 175 | + + + + + +--------+ + + | | 2023-02-02 | [facility] | 29.0 | (missing) | (missing) | | (unavailable | 01:00:07 [facility] | | | + + + +--------+ + + + + | Result panel 175 | + + + + + +--------+ + + | | 2023-02-02 | [facility] | 32.4 | (missing) | (missing) | | (unavailable | 01:00:07 [facility] | | | + + + +--------+ + + + + | Result panel 1754 | + + + + + +--------+ + + | | 2023-02-02 | [facility] | 14.9 | (missing) | (missing) | | (unavailable | 01:00:07 [facility] | | | + + + +--------+ + + + + | Result panel 1755 | + + + + + +-------+ + + | | 2023-02-02 | [facility] | 348 | (missing) | (missing) | | (unavailable | 01:00:07 [facility] | | | + + + +-------+ + + + + | Result panel 1756 | + + + + + +--------+ + + | | 2023-02-02 | [facility] | 48.4 | (missing) | (missing) | | (unavailable | 01:00:07 [facility] | | | + + + +--------+ + + + + | Result panel 1757 | + + + + + +--------+ + + | | 2023-02-02 | [facility] | 41.2 | (missing) | (missing) | | (unavailable | 01:00:07 [facility] | | | + + + +--------+ + + + + | Result panel 1758 | + + + + + +-------+ + + | | 2023-02-02 | [facility] | 8.0 | (missing) | (missing) | | (unavailable | 01:00:07 [facility] | | | + + + +-------+ + + + + | Result panel 1759 | + + + + + +-------+ + + | | 2023-02-02 | [facility] | 2.0 | (missing) | (missing) | | (unavailable | 01:00:07 [facility] | | | + + + +-------+ + + + + | Result panel 1760 | + + + + + +-------+ + + | | 2023-02-02 | [facility] | 0.4 | (missing) | (missing) | | (unavailable | 01:00:07 [facility] | | | + + + +-------+ + + + + | Result panel 1761 | + + + + + + + + + | | 2023-02-02 | [facility] | YELLOW | (missing) | (missing) | | (unavailable | 01:00:07 [facility] | | | + + + + + + + + + | Result panel 1762 | + + + + + +---------+ + + | | 2023-02-02 | [facility] | CLEAR | (missing) | (missing) | | (unavailable | 01:00:07 [facility] | | | + + + +---------+ + + + + | Result panel 1763 | + + + + + + + + + | | 2023-02-02 | [facility] | >=1000 | (missing) | (missing) | | (unavailable | 01:00:07 [facility] | | | + + + + + + + + + | Result panel 1764 | + + + + + + + + + | | 2023-02-02 | [facility] | NEGATIVE | (missing) | (missing) | | (unavailable | 01:00:07 [facility] | | | + + + + + + + + + | Result panel 1765 | + + + + + + + + + | | 2023-02-02 | [facility] | NEGATIVE | (missing) | (missing) | | (unavailable | 01:00:07 [facility] | | | + + + + + + + + + | Result panel 1766 | + + + + + +---------+ + + | | 2023-02-02 | [facility] | 1.015 | (missing) | (missing) | | (unavailable | 01:00:07 [facility] | | | + + + +---------+ + + + + | Result panel 1767 | + + + + + + + + + | | 2023-02-02 | [facility] | TRACE-I | (missing) | (missing) | | (unavailable | 01:00:07 [facility] | | | + + + + + + + + + | Result panel 1768 | + + + + + +-------+ + + | | 2023-02-02 | [facility] | 5.0 | (missing) | (missing) | | (unavailable | 01:00:07 [facility] | | | + + + +-------+ + + + + | Result panel 1769 | + + + + + +-------+ + + | | 2023-02-02 | [facility] | 100 | (missing) | (missing) | | (unavailable | 01:00:07 [facility] | | | + + + +-------+ + + + + | Result panel 1770 | + + + + + + + + + | | 2023-02-02 | [facility] | NORMAL | (missing) | (missing) | | (unavailable | 01:00:07 [facility] | | | + + + + + + + + + | Result panel 177 | + + + + + + + + + | | 2023-02-02 | [facility] | NEGATIVE | (missing) | (missing) | | (unavailable | 01:00:07 [facility] | | | + + + + + + + + + | Result panel 177 | + + + + + + + + + | | 2023-02-02 | [facility] | NEGATIVE | (missing) | (missing) | | (unavailable | 01:00:07 [facility] | | | + + + + + + + + + | Result panel 177 | + + + + + +-------+ + + | | 2023-02-02 | [facility] | 2-3 | (missing) | (missing) | | (unavailable | 01:00:07 [facility] | | | + + + +-------+ + + + + | Result panel 177 | + + + + + +-------+ + + | | 2023-02-02 | [facility] | 0-1 | (missing) | (missing) | | (unavailable | 01:00:07 [facility] | | | + + + +-------+ + + + + | Result panel 1775 | + + + + + + + + + | | 2023-02-02 | [facility] | SQUAMOUS 1+ | (missing) | (missing) | | (unavailable | 01:00:07 [facility] | | | + + + + + + + + + | Result panel 1776 | + + + + + +------+ + + | | 2023-02-02 | [facility] | No | (missing) | (missing) | | (unavailable | 01:00:07 [facility] | | | + + + +------+ + + + + | Result panel 1777 | + + + + + +---------+ + + | | 2023-02-02 | [facility] | 7.259 | (missing) | (missing) | | (unavailable | 01:00:07 [facility] | | | + + + +---------+ + + + + | Result panel 1778 | + + + + + +-------+---------+ + | | 2023-02-02 | [facility] | 370 | mg/dL | (missing) | | (unavailable | 01:00:07 [facility] | | | + + + +-------+---------+ + + + | Result panel 1779 | + + + + + +------+---------+ + | | 2023-02-02 | [facility] | 35 | mg/dL | (missing) | | (unavailable | 01:00:07 [facility] | | | | + + + +------+---------+ + + + | Result panel 1780 | + + + + + +--------+---------+ + | | 2023-02-02 | [facility] | 2.08 | mg/dL | (missing) | | (unavailable | 01:00:07 [facility] | | | + + + +--------+---------+ + + + | Result panel 178 | + + + + + +------+ + + | | 2023-02-02 | [facility] | 34 | (missing) | (missing) | | (unavailable | 01:00:07 [facility] | | | + + + +------+ + + + + | Result panel 178 | + + + + + +---------+ + + | | 2023-02-02 | [facility] | 16.82 | (missing) | (missing) | | (unavailable | 01:00:07 [facility] | | | + + + +---------+ + + + + | Result panel 1783 | + + + + + +-------+ + + | | 2023-02-02 | [facility] | 134 | (missing) | (missing) | | (unavailable | 01:00:07 [facility] | | | + + + +-------+ + + + + | Result panel 178 | + + + + + +-------+ + + | | 2023-02-02 | [facility] | 3.5 | (missing) | (missing) | | (unavailable | 01:00:07 [facility] | | | + + + +-------+ + + + + | Result panel 178 | + + + + + +------+ + + | | 2023-02-02 | [facility] | 99 | (missing) | (missing) | | (unavailable | 01:00:07 [facility] | | | + + + +------+ + + + + | Result panel 1786 | + + + + + +------+ + + | | 2023-02-02 | [facility] | 20 | (missing) | (missing) | | (unavailable | 01:00:07 [facility] | | | + + + +------+ + + + + | Result panel 178 | + + + + + +--------+ + + | | 2023-02-02 | [facility] | 18.5 | (missing) | (missing) | | (unavailable | 01:00:07 [facility] | | | + + + +--------+ + + + + | Result panel 1788 | + + + + + +-------+---------+ + | | 2023-02-02 | [facility] | 9.1 | mg/dL | (missing) | | (unavailable | 01:00:07 [facility] | | | + + + +-------+---------+ + + + | Result panel 178 | + + + + + +-------+ + + | | 2023-02-02 | [facility] | 8.3 | (missing) | (missing) | | (unavailable | 01:00:07 [facility] | | | | + + + +-------+ + + + + | Result panel 1790 | + + + + + +-------+ + + | | 2023-02-02 | [facility] | 3.7 | (missing) | (missing) | | (unavailable | 01:00:07 [facility] | | | | + + + +-------+ + + + + | Result panel 1791 | + + + + + +-------+ + + | | 2023-02-02 | [facility] | 4.6 | (missing) | (missing) | | (unavailable | 01:00:07 [facility] | | | + + + +-------+ + + + + | Result panel 1792 | + + + + + +--------+ + + | | 2023-02-02 | [facility] | 0.80 | (missing) | (missing) | | (unavailable | 01:00:07 [facility] | | | + + + +--------+ + + + + | Result panel 1793 | + + + + + +-------+ + + | | 2023-02-02 | [facility] | 0.3 | (missing) | (missing) | | (unavailable | 01:00:07 [facility] | | | + + + +-------+ + + + + | Result panel 179 | + + + + + +------+ + + | | 2023-02-02 | [facility] | 29 | (missing) | (missing) | | (unavailable | 01:00:07 [facility] | | | | + + + +------+ + + + + | Result panel 179 | + + + + + +------+ + + | | 2023-02-02 | [facility] | 41 | (missing) | (missing) | | (unavailable | 01:00:07 [facility] | | | | + + + +------+ + + + + | Result panel 179 | + + + + + +-------+ + + | | 2023-02-02 | [facility] | 335 | (missing) | (missing) | | (unavailable | 01:00:07 [facility] | | | | + + + +-------+ + + + + | Result panel 179 | + + + + + +-------+ + + | | 2023-02-02 | [facility] | 259 | (missing) | (missing) | | (unavailable | 01:00:07 [facility] | | | | + + + +-------+ + + + + | Result panel 1798 | + + + + + + + + + | | 2023-02-02 | [facility] | NEGATIVE | (missing) | (missing) | | (unavailable | 01:00:07 [facility] | | | + + + + + + + + + | Result panel 1799 | + + + + + + + + + | | 2023-02-02 | [facility] | NEGATIVE | (missing) | (missing) | | (unavailable | 01::07 | [facility] | | | | + + + + + + + + + | Result panel 1800 | + + + + + +-------+ + + | | 2023-02-02 | [facility] | 333 | (missing) | (missing) | | (unavailable | 01:10:07 [facility] | | | + + + +-------+ + + + + | Result panel 1801 | + + + + + + + + + | | 2023-02-11 | [facility] | NONE SEEN | (missing) | (missing) | | (unavailable | 00:45:07 [facility] | | | | + + + + + + + + + | Result panel 180 | + + + + + + + + + | | 2023-02-11 | [facility] | NONE SEEN | (missing) | (missing) | | (unavailable | 00:45:07 [facility] | | | | + + + + + + + + + | Result panel 1803 | + + + + + +--------+ + + | | 2023-02-11 | [facility] | RARE | (missing) | (missing) | | (unavailable | 00:45:07 [facility] | | | | + + + +--------+ + + + + | Result panel 1804 | + + + + + + + + + | | 2023-02-11 | [facility] | NONE SEEN | (missing) | (missing) | | (unavailable | 00:45:07 | [facility] | | | | + + + + + + + + + | Result panel 1805 | + + + + + + + + + | | 2023-02-11 | [facility] | YELLOW | (missing) | (missing) | | (unavailable | 00:45:07 [facility] | | | | + + + + + + + + + | Result panel 1806 | + + + + + +---------+ + + | | 2023-02-11 | [facility] | CLEAR | (missing) | (missing) | | (unavailable | 00:45:07 | [facility] | | | | + + + +---------+ + + + + | Result panel 1807 | + + + + + + + + + | | 2023-02-11 | [facility] | >=1000 | (missing) | (missing) | | (unavailable | 00:45:07 | [facility] | | | | + + + + + + + + + | Result panel 1808 | + + + + + + + + + | | 2023-02-11 | [facility] | NEGATIVE | (missing) | (missing) | | (unavailable | 00:45:07 | [facility] | | | | + + + + + + + + + | Result panel 1809 | + + + + + +---------+ + + | | 2023-02-11 | [facility] | TRACE | (missing) | (missing) | | (unavailable | 00:45:07 | [facility] | | | | + + + +---------+ + + + + | Result panel 1810 | + + + + + +---------+ + + | | 2023-02-11 | [facility] | 1.025 | (missing) | (missing) | | (unavailable | 00:45:07 | [facility] | | | | + + + +---------+ + + + + | Result panel 1811 | + + + + + + + + + | | 2023-02-11 | [facility] | TRACE-I | (missing) | (missing) | | (unavailable | 00:45:07 | [facility] | | | | + + + + + + + + + | Result panel 1812 | + + + + + +-------+ + + | | 2023-02-11 | [facility] | 6.0 | (missing) | (missing) | | (unavailable | 00:45:07 | [facility] | | | | + + + +-------+ + + + + | Result panel 181 | + + + + + +-------+ + + | | 2023-02-11 | [facility] | 100 | (missing) | (missing) | | (unavailable | 00:45:07 | [facility] | | | | + + + +-------+ + + + + | Result panel 181 | + + + + + + + + + | | 2023-02-11 | [facility] | NORMAL | (missing) | (missing) | | (unavailable | 00:45:07 | [facility] | | | | + + + + + + + + + | Result panel 181 | + + + + + + + + + | | 2023-02-11 | [facility] | NEGATIVE | (missing) | (missing) | | (unavailable | 00:45:07 | [facility] | | | | + + + + + + + + + | Result panel 181 | + + + + + + + + + | | 2023-02-11 | [facility] | NEGATIVE | (missing) | (missing) | | (unavailable | 00:45:07 | [facility] | | | | + + + + + + + + + | Result panel 1816 | + + + + + +-------+ + + | | 2023-02-11 | [facility] | 2-3 | (missing) | (missing) | | (unavailable | 00:45:07 | [facility] | | | | + + + +-------+ + + + + | Result panel 181 | + + + + + +-------+ + + | | 2023-02-11 | [facility] | 4-6 | (missing) | (missing) | | (unavailable | 00:45:07 | [facility] | | | | + + + +-------+ + + + + | Result panel 1819 | + + + + + + + + + | | 2023-02-11 | [facility] | SQUAMOUS 2+ | (missing) | (missing) | | (unavailable | 00:45:07 | [facility] | | | | + + + + + + + + + | Result panel 1820 | + + + + + + + + + | | 2023-02-11 | [facility] | NONE SEEN | (missing) | (missing) | | (unavailable | 00:45:07 | [facility] | | | | + + + + + + + + + | Result panel 182 | + + + + + +--------+ + + | | 2023-02-11 | [facility] | RARE | (missing) | (missing) | | (unavailable | 00:45:07 [facility] | | | | + + + +--------+ + + + + | Result panel 1822 | + + + + + + + + + | | 2023-02-11 | [facility] | NONE SEEN | (missing) | (missing) | | (unavailable | 00:45:07 | [facility] | | | | + + + + + + + + + | Result panel 1823 | + + + + + +------+ + + | | 2023-02-11 | [facility] | No | (missing) | (missing) | | (unavailable | 00:45:07 | [facility] | | | + + + +------+ + + + + | Result panel 1824 | + + + + + +-----+ + + | | 2023-02-11 | [facility] | 5 | (missing) | (missing) | | (unavailable | 01:11:07 | [facility] | | | + + + +-----+ + + + + | Result panel 1825 | + + + + + +-----+ + + | | 2023-02-11 | [facility] | 5 | (missing) | (missing) | | (unavailable | 01:11:07 | [facility] | | | + + + +-----+ + + + + | Result panel 1826 | + + + + + +-----+ + + | | 2023-02-11 | [facility] | 5 | (missing) | (missing) | | (unavailable | 01:11:07 | [facility] | | | + + + +-----+ + + + + | Result panel 182 | + + + + + +-------+ + + | | 2023-02-11 | [facility] | 6.9 | (missing) | (missing) | | (unavailable | 01:11:07 | [facility] | | | + + + +-------+ + + + + | Result panel 1828 | + + + + + +--------+ + + | | 2023-02-11 | [facility] | 3.33 | (missing) | (missing) | | (unavailable | 01::07 | [facility] | | | + + + +--------+ + + + + | Result panel 1829 | + + + + + +-------+ + + | | 2023-02-11 | [facility] | 9.8 | (missing) | (missing) | | (unavailable | 01:11:07 | [facility] | | | + + + +-------+ + + + + | Result panel 1830 | + + + + + +--------+ + + | | 2023-02-11 | [facility] | 29.6 | (missing) | (missing) | | (unavailable | 01:11:07 | [facility] | | | + + + +--------+ + + + + | Result panel 1831 | + + + + + +--------+ + + | | 2023-02-11 | [facility] | 88.7 | (missing) | (missing) | | (unavailable | 01:11:07 | [facility] | | | + + + +--------+ + + + + | Result panel 1832 | + + + + + +--------+ + + | | 2023-02-11 | [facility] | 29.3 | (missing) | (missing) | | (unavailable | 01:11:07 | [facility] | | | + + + +--------+ + + + + | Result panel 1833 | + + + + + +--------+ + + | | 2023-02-11 | [facility] | 33.0 | (missing) | (missing) | | (unavailable | 01:11:07 | [facility] | | | + + + +--------+ + + + + | Result panel 1834 | + + + + + +--------+ + + | | 2023-02-11 | [facility] | 15.0 | (missing) | (missing) | | (unavailable | 01:11:07 [facility] | | | + + + +--------+ + + + + | Result panel 1835 | + + + + + +-------+ + + | | 2023-02-11 | [facility] | 374 | (missing) | (missing) | | (unavailable | 01:11:07 | [facility] | | | + + + +-------+ + + + + | Result panel 1836 | + + + + + +--------+ + + | | 2023-02-11 | [facility] | 49.6 | (missing) | (missing) | | (unavailable | 01:11:07 | [facility] | | | + + + +--------+ + + + + | Result panel 1837 | + + + + + +--------+ + + | | 2023-02-11 | [facility] | 40.2 | (missing) | (missing) | | (unavailable | 01:11:07 | [facility] | | | + + + +--------+ + + + + | Result panel 183 | + + + + + +-------+ + + | | 2023-02-11 | [facility] | 7.2 | (missing) | (missing) | | (unavailable | 01:11:07 | [facility] | | | + + + +-------+ + + + + | Result panel 183 | + + + + + +-------+ + + | | 2023-02-11 | [facility] | 2.0 | (missing) | (missing) | | (unavailable | 01: | [facility] | | | + + + +-------+ + + + + | Result panel 1839 | + + + + + +-------+ + + | | 2023-02-11 | [facility] | 1.0 | (missing) | (missing) | | (unavailable | 01::07 | [facility] | | | + + + +-------+ + + + + | Result panel 184 | + + + + + +-------+---------+ + | | 2023-02-11 | [facility] | 294 | mg/dL | (missing) | | (unavailable | 01:11:07 | [facility] | | | + + + +-------+---------+ + + + | Result panel 184 | + + + + + +------+---------+ + | | 2023-02-11 | [facility] | 34 | mg/dL | (missing) | | (unavailable | 01:11:07 | [facility] | | | + + + +------+---------+ + + + | Result panel 184 | + + + + + +--------+---------+ + | | 2023-02-11 | [facility] | 1.92 | mg/dL | (missing) | | (unavailable | 01:11:07 | [facility] | | | + + + +--------+---------+ + + + | Result panel 1844 | + + + + + +------+ + + | | 2023-02-11 | [facility] | 37 | (missing) | (missing) | | (unavailable | 01:11:07 [facility] | | | + + + +------+ + + + + | Result panel 1845 | + + + + + +---------+ + + | | 2023-02-11 | [facility] | 17.70 | (missing) | (missing) | | (unavailable | 01:11:07 [facility] | | | + + + +---------+ + + + + | Result panel 1846 | + + + + + +-------+ + + | | 2023-02-11 | [facility] | 140 | (missing) | (missing) | | (unavailable | 01:11:07 | [facility] | | | + + + +-------+ + + + + | Result panel 1847 | + + + + + +-------+ + + | | 2023-02-11 | [facility] | 4.0 | (missing) | (missing) | | (unavailable | 01:11:07 [facility] | | | + + + +-------+ + + + + | Result panel 1848 | + + + + + +-------+ + + | | 2023-02-11 | [facility] | 103 | (missing) | (missing) | | (unavailable | 01:11:07 [facility] | | | + + + +-------+ + + + + | Result panel 1849 | + + + + + +------+ + + | | 2023-02-11 | [facility] | 21 | (missing) | (missing) | | (unavailable | 01:11:07 [facility] | | | + + + +------+ + + + + | Result panel 1850 | + + + + + +--------+ + + | | 2023-02-11 | [facility] | 20.0 | (missing) | (missing) | | (unavailable | 01:11:07 [facility] | | | + + + +--------+ + + + + | Result panel 1851 | + + + + + +-------+---------+ + | | 2023-02-11 | [facility] | 8.9 | mg/dL | (missing) | | (unavailable | 01:11:07 [facility] | | | + + + +-------+---------+ + + + | Result panel 185 | + + + + + +-------+ + + | | 2023-02-11 | [facility] | 8.0 | (missing) | (missing) | | (unavailable | 01:11:07 [facility] | | | + + + +-------+ + + + + | Result panel 1852 | + + + + + +-------+ + + | | 2023-02-11 | [facility] | 3.7 | (missing) | (missing) | | (unavailable | 01:11:07 | [facility] | | | + + + +-------+ + + + + | Result panel 1853 | + + + + + +-------+ + + | | 2023-02-11 | [facility] | 4.3 | (missing) | (missing) | | (unavailable | 01:11:07 [facility] | | | + + + +-------+ + + + + | Result panel 185 | + + + + + +--------+ + + | | 2023-02-11 | [facility] | 0.86 | (missing) | (missing) | | (unavailable | 01:11:07 [facility] | | | + + + +--------+ + + + + | Result panel 185 | + + + + + +-------+ + + | | 2023-02-11 | [facility] | 0.3 | (missing) | (missing) | | (unavailable | 01:11:07 [facility] | | | + + + +-------+ + + + + | Result panel 185 | + + + + + +------+ + + | | 2023-02-11 | [facility] | 24 | (missing) | (missing) | | (unavailable | 01:11:07 [facility] | | | + + + +------+ + + + + | Result panel 1857 | + + + + + +------+ + + | | 2023-02-11 | [facility] | 20 | (missing) | (missing) | | (unavailable | 01:11:07 | [facility] | | | + + + +------+ + + + + | Result panel 1859 | + + + + + +-------+ + + | | 2023-02-11 | [facility] | 299 | (missing) | (missing) | | (unavailable | 01:11:07 [facility] | | | + + + +-------+ + + + + | Result panel 1860 | + + + + + +-------+ + + | | 2023-02-11 | [facility] | 136 | (missing) | (missing) | | (unavailable | 01:11:07 [facility] | | | + + + +-------+ + + + + | Result panel 186 | + + + + + +-----+ + + | | 2023-02-11 | [facility] | 5 | (missing) | (missing) | | (unavailable | 01:11:07 [facility] | | | + + + +-----+ + + + + | Result panel 1862 | + + + + + + + + + | | 2023-02-11 | [facility] | POSITIVE | (missing) | (missing) | | (unavailable | 01:11:07 [facility] | | | + + + + + + + + + | Result panel 1863 | + + + + + +-------+ + + | | 2023-02-11 | [facility] | 280 | (missing) | (missing) | | (unavailable | 01:36:07 | [facility] | | | + + + +-------+ + + + + | Result panel 186 | + + + + + +---------+ + + | | 2023-02-23 | [facility] | SMALL | (missing) | (missing) | | (unavailable | 00:50:07 | [facility] | | | + + + +---------+ + + + + | Result panel 1865 | + + + + + + + + + | | 2023-02-23 | [facility] | NEGATIVE | (missing) | (missing) | | (unavailable | 00:50:07 | [facility] | | | + + + + + + + + + | Result panel 1866 | + + + + + +-------+ + + | | 2023-02-23 | [facility] | 5.9 | (missing) | (missing) | | (unavailable | 00:50:07 [facility] | | | + + + +-------+ + + + + | Result panel 186 | + + + + + +--------+ + + | | 2023-02-23 | [facility] | 3.45 | (missing) | (missing) | | (unavailable | 00:50:07 [facility] | | | + + + +--------+ + + + + | Result panel 186 | + + + + + +--------+ + + | | 2023-02-23 | [facility] | 10.1 | (missing) | (missing) | | (unavailable | 00:50:07 [facility] | | | + + + +--------+ + + + + | Result panel 186 | + + + + + +--------+ + + | | 2023-02-23 | [facility] | 30.8 | (missing) | (missing) | | (unavailable | 00:50:07 [facility] | | | + + + +--------+ + + + + | Result panel 1870 | + + + + + +--------+ + + | | 2023-02-23 | [facility] | 89.4 | (missing) | (missing) | | (unavailable | 00:50:07 [facility] | | | + + + +--------+ + + + + | Result panel 1871 | + + + + + +--------+ + + | | 2023-02-23 | [facility] | 29.3 | (missing) | (missing) | | (unavailable | 00:50:07 [facility] | | | + + + +--------+ + + + + | Result panel 1872 | + + + + + +--------+ + + | | 2023-02-23 | [facility] | 32.8 | (missing) | (missing) | | (unavailable | 00:50:07 [facility] | | | + + + +--------+ + + + + | Result panel 1873 | + + + + + +--------+ + + | | 2023-02-23 | [facility] | 15.3 | (missing) | (missing) | | (unavailable | 00:50:07 [facility] | | | + + + +--------+ + + + + | Result panel 1874 | + + + + + +-------+ + + | | 2023-02-23 | [facility] | 299 | (missing) | (missing) | | (unavailable | 00:50:07 [facility] | | | + + + +-------+ + + + + | Result panel 1875 | + + + + + +--------+ + + | | 2023-02-23 | [facility] | 47.9 | (missing) | (missing) | | (unavailable | 00:50:07 [facility] | | | + + + +--------+ + + + + | Result panel 1876 | + + + + + +--------+ + + | | 2023-02-23 | [facility] | 42.2 | (missing) | (missing) | | (unavailable | 00:50:07 [facility] | | | + + + +--------+ + + + + | Result panel 1877 | + + + + + +-------+ + + | | 2023-02-23 | [facility] | 7.4 | (missing) | (missing) | | (unavailable | 00:50:07 [facility] | | | + + + +-------+ + + + + | Result panel 1878 | + + + + + +-------+ + + | | 2023-02-23 | [facility] | 2.0 | (missing) | (missing) | | (unavailable | 00:50:07 [facility] | | | + + + +-------+ + + + + | Result panel 1879 | + + + + + +-------+ + + | | 2023-02-23 | [facility] | 0.5 | (missing) | (missing) | | (unavailable | 00:50:07 [facility] | | | + + + +-------+ + + + + | Result panel 1880 | + + + + + +-------+---------+ + | | 2023-02-23 | [facility] | 559 | mg/dL | (missing) | | (unavailable | 00:50:07 [facility] | | | + + + +-------+---------+ + + + | Result panel 188 | + + + + + +------+---------+ + | | 2023-02-23 | [facility] | 38 | mg/dL | (missing) | | (unavailable | 00:50:07 [facility] | | | + + + +------+---------+ + + + | Result panel 1882 | + + + + + +--------+---------+ + | | 2023-02-23 | [facility] | 2.01 | mg/dL | (missing) | | (unavailable | 00:50:07 [facility] | | | + + + +--------+---------+ + + + | Result panel 188 | + + + + + +------+ + + | | 2023-02-23 | [facility] | 35 | (missing) | (missing) | | (unavailable | 00:50:07 [facility] | | | + + + +------+ + + + + | Result panel 1884 | + + + + + +---------+ + + | | 2023-02-23 | [facility] | 18.90 | (missing) | (missing) | | (unavailable | 00:50:07 [facility] | | | + + + +---------+ + + + + | Result panel 1885 | + + + + + +-------+ + + | | 2023-02-23 | [facility] | 132 | (missing) | (missing) | | (unavailable | 00:50:07 [facility] | | | + + + +-------+ + + + + | Result panel 1886 | + + + + + +-------+ + + | | 2023-02-23 | [facility] | 4.3 | (missing) | (missing) | | (unavailable | 00:50:07 [facility] | | | + + + +-------+ + + + + | Result panel 1887 | + + + + + +------+ + + | | 2023-02-23 | [facility] | 97 | (missing) | (missing) | | (unavailable | 00:50:07 [facility] | | | + + + +------+ + + + + | Result panel 1888 | + + + + + +------+ + + | | 2023-02-23 | [facility] | 21 | (missing) | (missing) | | (unavailable | 00:50:07 [facility] | | | + + + +------+ + + + + | Result panel 1889 | + + + + + +--------+ + + | | 2023-02-23 | [facility] | 18.3 | (missing) | (missing) | | (unavailable | 00:50:07 [facility] | | | + + + +--------+ + + + + | Result panel 1890 | + + + + + +-------+---------+ + | | 2023-02-23 | [facility] | 9.0 | mg/dL | (missing) | | (unavailable | 00:50:07 [facility] | | | + + + +-------+---------+ + + + | Result panel 1891 | + + + + + +-------+ + + | | 2023-02-23 | [facility] | 8.0 | (missing) | (missing) | | (unavailable | 00:50:07 [facility] | | | + + + +-------+ + + + + | Result panel 189 | + + + + + +-------+ + + | | 2023-02-23 | [facility] | 3.7 | (missing) | (missing) | | (unavailable | 00:50:07 [facility] | | | + + + +-------+ + + + + | Result panel 189 | + + + + + +-------+ + + | | 2023-02-23 | [facility] | 4.3 | (missing) | (missing) | | (unavailable | 00:50:07 [facility] | | | + + + +-------+ + + + + | Result panel 189 | + + + + + +--------+ + + | | 2023-02-23 | [facility] | 0.86 | (missing) | (missing) | | (unavailable | 00:50:07 [facility] | | | + + + +--------+ + + + + | Result panel 189 | + + + + + +-------+ + + | | 2023-02-23 | [facility] | 0.3 | (missing) | (missing) | | (unavailable | 00:50:07 [facility] | | | + + + +-------+ + + + + | Result panel 189 | + + + + + +------+ + + | | 2023-02-23 | [facility] | 28 | (missing) | (missing) | | (unavailable | 00:50:07 [facility] | | | + + + +------+ + + + + | Result panel 189 | + + + + + +------+ + + | | 2023-02-23 | [facility] | 39 | (missing) | (missing) | | (unavailable | 00:50:07 [facility] | | | + + + +------+ + + + + | Result panel 1898 | + + + + + +-------+ + + | | 2023-02-23 | [facility] | 315 | (missing) | (missing) | | (unavailable | 00:50:07 [facility] | | | + + + +-------+ + + + + | Result panel 1899 | + + + + + +-------+ + + | | 2023-02-23 | [facility] | 183 | (missing) | (missing) | | (unavailable | 00:50:07 [facility] | | | + + + +-------+ + + + + | Result panel 1900 | + + + + + +---------+ + + | | 2023-02-23 | [facility] | SMALL | (missing) | (missing) | | (unavailable | 00:50:07 [facility] | | | + + + +---------+ + + + + | Result panel 1901 | + + + + + + + + + | | 2023-02-23 | [facility] | NEGATIVE | (missing) | (missing) | | (unavailable | 00:50:07 [facility] | | | | + + + + + + + + + | Result panel 1901 | + + + + + + + + + | | 2023-02-23 | [facility] | YELLOW | (missing) | (missing) | | (unavailable | 01:42:07 [facility] | | | + + + + + + + + + | Result panel 1902 | + + + + + +---------+ + + | | 2023-02-23 | [facility] | CLEAR | (missing) | (missing) | | (unavailable | 01:42:07 [facility] | | | | + + + +---------+ + + + + | Result panel 1904 | + + + + + + + + + | | 2023-02-23 | [facility] | >=1000 | (missing) | (missing) | | (unavailable | 01:42:07 [facility] | | | | + + + + + + + + + | Result panel 1905 | + + + + + + + + + | | 2023-02-23 | [facility] | NEGATIVE | (missing) | (missing) | | (unavailable | 01:42:07 [facility] | | | | + + + + + + + + + | Result panel 190 | + + + + + +---------+ + + | | 2023-02-23 | [facility] | TRACE | (missing) | (missing) | | (unavailable | 01:42:07 [facility] | | | | + + + +---------+ + + + + | Result panel 1907 | + + + + + +---------+ + + | | 2023-02-23 | [facility] | 1.010 | (missing) | (missing) | | (unavailable | 01:42:07 [facility] | | | + + + +---------+ + + + + | Result panel 1908 | + + + + + + + + + | | 2023-02-23 | [facility] | TRACE-I | (missing) | (missing) | | (unavailable | 01:42:07 [facility] | | | | + + + + + + + + + | Result panel 1909 | + + + + + +-------+ + + | | 2023-02-23 | [facility] | 6.0 | (missing) | (missing) | | (unavailable | 01:42:07 [facility] | | | | + + + +-------+ + + + + | Result panel 1910 | + + + + + +------+ + + | | 2023-02-23 | [facility] | 30 | (missing) | (missing) | | (unavailable | 01:42:07 [facility] | | | | + + + +------+ + + + + | Result panel 191 | + + + + + + + + + | | 2023-02-23 | [facility] | NORMAL | (missing) | (missing) | | (unavailable | 01:42:07 [facility] | | | | + + + + + + + + + | Result panel 1912 | + + + + + + + + + | | 2023-02-23 | [facility] | NEGATIVE | (missing) | (missing) | | (unavailable | 01:42:07 [facility] | | | | + + + + + + + + + | Result panel 191 | + + + + + + + + + | | 2023-02-23 | [facility] | NEGATIVE | (missing) | (missing) | | (unavailable | 01:42:07 [facility] | | | | + + + + + + + + + | Result panel 191 | + + + + + +-------+ + + | | 2023-02-23 | [facility] | 0-1 | (missing) | (missing) | | (unavailable | 01:42:07 [facility] | | | | + + + +-------+ + + + + | Result panel 1914 | + + + + + +-------+ + + | | 2023-02-23 | [facility] | 0-1 | (missing) | (missing) | | (unavailable | 01:42:07 [facility] | | | | + + + +-------+ + + + + | Result panel 191 | + + + + + + + + + | | 2023-02-23 | [facility] | SQUAMOUS 1+ | (missing) | (missing) | | (unavailable | 01:42:07 [facility] | | | | + + + + + + + + + | Result panel 191 | + + + + + +------+ + + | | 2023-02-23 | [facility] | No | (missing) | (missing) | | (unavailable | 01:42:07 [facility] | | | | + + + +------+ + + + + | Result panel 191 | + + + + + +-------+ + + | | 2023-02-23 | [facility] | 451 | (missing) | (missing) | | (unavailable | 02:40:07 | [facility] | | | | + + + +-------+ + + + + | Result panel 1919 | + + + + + +-------+---------+ + | | 2023-03-04 | [facility] | 429 | mg/dL | (missing) | | (unavailable | 11:15:07 [facility] | | | | + + + +-------+---------+ + + + | Result panel 1920 | + + + + + +------+---------+ + | | 2023-03-04 | [facility] | 37 | mg/dL | (missing) | | (unavailable | 11:15:07 [facility] | | | | + + + +------+---------+ + + + | Result panel 192 | + + + + + +--------+---------+ + | | 2023-03-04 | [facility] | 2.15 | mg/dL | (missing) | | (unavailable | 11:15:07 [facility] | | | | + + + +--------+---------+ + + + | Result panel 192 | + + + + + +------+ + + | | 2023-03-04 | [facility] | 32 | (missing) | (missing) | | (unavailable | 11:15:07 [facility] | | | | + + + +------+ + + + + | Result panel 1923 | + + + + + +---------+ + + | | 2023-03-04 | [facility] | 17.20 | (missing) | (missing) | | (unavailable | 11:15:07 [facility] | | | | + + + +---------+ + + + + | Result panel 1924 | + + + + + +-------+ + + | | 2023-03-04 | [facility] | 135 | (missing) | (missing) | | (unavailable | 11:15:07 [facility] | | | | + + + +-------+ + + + + | Result panel 192 | + + + + + +-------+ + + | | 2023-03-04 | [facility] | 4.7 | (missing) | (missing) | | (unavailable | 11:15:07 [facility] | | | | + + + +-------+ + + + + | Result panel 6 | + + + + + +-------+ + + | | 2023-03-04 | [facility] | 104 | (missing) | (missing) | | (unavailable | 11:15:07 [facility] | | | | + + + +-------+ + + + + | Result panel 1927 | + + + + + +------+ + + | | 2023-03-04 | [facility] | 22 | (missing) | (missing) | | (unavailable | 11:15:07 [facility] | | | | + + + +------+ + + + + | Result panel 1928 | + + + + + +--------+ + + | | 2023-03-04 | [facility] | 13.7 | (missing) | (missing) | | (unavailable | 11:15:07 | [facility] | | | | + + + +--------+ + + + + | Result panel 192 | + + + + + +-------+---------+ + | | 2023-03-04 | [facility] | 8.0 | mg/dL | (missing) | | (unavailable | 11:15:07 | [facility] | | | | + + + +-------+---------+ + + + | Result panel 1929 | + + + + + +-------+ + + | | 2023-03-04 | [facility] | 7.0 | (missing) | (missing) | | (unavailable | 11:15:07 | [facility] | | | | + + + +-------+ + + + + | Result panel 1930 | + + + + + +-------+ + + | | 2023-03-04 | [facility] | 3.2 | (missing) | (missing) | | (unavailable | 11:15:07 | [facility] | | | | + + + +-------+ + + + + | Result panel 1931 | + + + + + +-------+ + + | | 2023-03-04 | [facility] | 3.8 | (missing) | (missing) | | (unavailable | 11:15:07 | [facility] | | | | + + + +-------+ + + + + | Result panel 1932 | + + + + + +--------+ + + | | 2023-03-04 | [facility] | 0.84 | (missing) | (missing) | | (unavailable | 11:15:07 [facility] | | | | + + + +--------+ + + + + | Result panel 193 | + + + + + +-------+ + + | | 2023-03-04 | [facility] | 0.2 | (missing) | (missing) | | (unavailable | 11:15:07 [facility] | | | | + + + +-------+ + + + + | Result panel 193 | + + + + + +------+ + + | | 2023-03-04 | [facility] | 13 | (missing) | (missing) | | (unavailable | 11:15:07 | [facility] | | | | + + + +------+ + + + + | Result panel 193 | + + + + + +------+ + + | | 2023-03-04 | [facility] | 33 | (missing) | (missing) | | (unavailable | 11:15:07 | [facility] | | | | + + + +------+ + + + + | Result panel 193 | + + + + + +-------+ + + | | 2023-03-04 | [facility] | 251 | (missing) | (missing) | | (unavailable | 11:15:07 | [facility] | | | | + + + +-------+ + + + + | Result panel 193 | + + + + + +-------+ + + | | 2023-03-04 | [facility] | 159 | (missing) | (missing) | | (unavailable | 11:15:07 | [facility] | | | | + + + +-------+ + + + + | Result panel 193 | + + + + + + + + + | | 2023-03-04 | [facility] | NEGATIVE | (missing) | (missing) | | (unavailable | 22:11:07 | [facility] | | | | + + + + + + + + + | Result panel 1940 | + + + + + + + + + | | 2023-03-04 | [facility] | BETA | (missing) | (missing) | | (unavailable | 22:11:07 | [facility]PTOCO[facility] | | | | ) | | [facility] | S GROUP B | | | + + + + + + + + + | Result panel 194 | + + + + + + + + + | | 2023-03-04 | [facility] | YELLOW | (missing) | (missing) | | (unavailable | 22::07 | [facility] | | | | + + + + + + + + + | Result panel 1941 | + + + + + +---------+ + + | | 2023-03-04 | [facility] | CLEAR | (missing) | (missing) | | (unavailable | ::07 | [facility] | | | | + + + +---------+ + + + + | Result panel 1942 | + + + + + + + + + | | 2023-03-04 | [facility] | >=1000 | (missing) | (missing) | | (unavailable | 22:11:07 | [facility] | | | | + + + + + + + + + | Result panel 194 | + + + + + + + + + | | 2023-03-04 | [facility] | NEGATIVE | (missing) | (missing) | | (unavailable | 22:11:07 | [facility] | | | | + + + + + + + + + | Result panel 194 | + + + + + + + + + | | 2023-03-04 | [facility] | NEGATIVE | (missing) | (missing) | | (unavailable | 22:11:07 | [facility] | | | | + + + + + + + + + | Result panel 194 | + + + + + +---------+ + + | | 2023-03-04 | [facility] | 1.020 | (missing) | (missing) | | (unavailable | 22::07 | [facility] | | | | + + + +---------+ + + + + | Result panel 194 | + + + + + +---------+ + + | | 2023-03-04 | [facility] | SMALL | (missing) | (missing) | | (unavailable | 22:11:07 [facility] | | | | + + + +---------+ + + + + | Result panel 194 | + + + + + +-------+ + + | | 2023-03-04 | [facility] | 5.5 | (missing) | (missing) | | (unavailable | 22:11:07 [facility] | | | | + + + +-------+ + + + + | Result panel 1949 | + + + + + +-------+ + + | | 2023-03-04 | [facility] | 100 | (missing) | (missing) | | (unavailable | 22:11:07 [facility] | | | | + + + +-------+ + + + + | Result panel 1950 | + + + + + + + + + | | 2023-03-04 | [facility] | NORMAL | (missing) | (missing) | | (unavailable | 22:11:07 [facility] | | | | + + + + + + + + + | Result panel 1950 | + + + + + + + + + | | 2023-03-04 | [facility] | NEGATIVE | (missing) | (missing) | | (unavailable | 22:11:07 [facility] | | | | + + + + + + + + + | Result panel 1951 | + + + + + + + + + | | 2023-03-04 | [facility] | NEGATIVE | (missing) | (missing) | | (unavailable | 22:11:07 [facility] | | | | + + + + + + + + + | Result panel 1952 | + + + + + +-------+ + + | | 2023-03-04 | [facility] | 4-6 | (missing) | (missing) | | (unavailable | 22:11:07 [facility] | | | | + + + +-------+ + + + + | Result panel 1953 | + + + + + +---------+ + + | | 2023-03-04 | [facility] | 12-20 | (missing) | (missing) | | (unavailable | 22:11:07 [facility] | | | | + + + +---------+ + + + + | Result panel 1954 | + + + + + + + + + | | 2023-03-04 | [facility] | SQUAMOUS 1+ | (missing) | (missing) | | (unavailable | 22:11:07 [facility] | | | | + + + + + + + + + | Result panel 1955 | + + + + + +--------+ + + | | 2023-03-04 | [facility] | RARE | (missing) | (missing) | | (unavailable | 22:11:07 [facility] | | | | + + + +--------+ + + + + | Result panel 1956 | + + + + + + + + + | | 2023-03-04 | [facility] | GRANULAR 1+ | (missing) | (missing) | | (unavailable | 22:11:07 [facility] | | | | + + + + + + + + + | Result panel 1957 | + + + + + +-------+ + + | | 2023-03-04 | [facility] | Yes | (missing) | (missing) | | (unavailable | 22::07 | [facility] | | | | + + + +-------+ + + + + | Result panel 195 | + + + + + + + + + | | 2023-03-04 | [facility] | CLEAN CATCH | (missing) | (missing) | | (unavailable | 22::07 | [facility] | | | | + + + + + + + + + | Result panel 1960 | + + + + + + + + + | | 2023-03-04 | [facility] | NEGATIVE | (missing) | (missing) | | (unavailable | 22:11:07 [facility] | | | | + + + + + + + + + | Result panel 1960 | + + + + + + + + + | | 2023-03-04 | [facility] | NEGATIVE | (missing) | (missing) | | (unavailable | 22:11:07 | [facility] | | | | + + + + + + + + + | Result panel 196 | + + + + + + + + + | | 2023-03-04 | [facility] | BETA | (missing) | (missing) | | (unavailable | 22:11:07 | [facility] | S GROUP B | | | + + + + + + + + + | Result panel 1963 | + + + + + +-------+ + + | | 2023-03-04 | [facility] | 5.9 | (missing) | (missing) | | (unavailable | 22:23:07 | [facility] | | | | + + + +-------+ + + + + | Result panel 1964 | + + + + + +--------+ + + | | 2023-03-04 | [facility] | 3.58 | (missing) | (missing) | | (unavailable | 22:23:07 [facility] | | | | + + + +--------+ + + + + | Result panel 1965 | + + + + + +--------+ + + | | 2023-03-04 | [facility] | 10.5 | (missing) | (missing) | | (unavailable | 22:23:07 [facility] | | | | + + + +--------+ + + + + | Result panel 1966 | + + + + + +--------+ + + | | 2023-03-04 | [facility] | 32.2 | (missing) | (missing) | | (unavailable | 22:23:07 [facility] | | | | + + + +--------+ + + + + | Result panel 1967 | + + + + + +--------+ + + | | 2023-03-04 | [facility] | 90.0 | (missing) | (missing) | | (unavailable | 22:23:07 [facility] | | | | + + + +--------+ + + + + | Result panel 1968 | + + + + + +--------+ + + | | 2023-03-04 | [facility] | 29.4 | (missing) | (missing) | | (unavailable | 22:23:07 [facility] | | | | + + + +--------+ + + + + | Result panel 1969 | + + + + + +--------+ + + | | 2023-03-04 | [facility] | 32.7 | (missing) | (missing) | | (unavailable | 22:23:07 [facility] | | | | + + + +--------+ + + + + | Result panel 1970 | + + + + + +--------+ + + | | 2023-03-04 | [facility] | 15.4 | (missing) | (missing) | | (unavailable | 22:23:07 [facility] | | | | + + + +--------+ + + + + | Result panel 1971 | + + + + + +-------+ + + | | 2023-03-04 | [facility] | 351 | (missing) | (missing) | | (unavailable | 22:23:07 | [facility] | | | | + + + +-------+ + + + + | Result panel 1972 | + + + + + +--------+ + + | | 2023-03-04 | [facility] | 51.7 | (missing) | (missing) | | (unavailable | 22:23:07 [facility] | | | | + + + +--------+ + + + + | Result panel 1973 | + + + + + +--------+ + + | | 2023-03-04 | [facility] | 35.9 | (missing) | (missing) | | (unavailable | 22:23:07 | [facility] | | | | + + + +--------+ + + + + | Result panel 1974 | + + + + + +-------+ + + | | 2023-03-04 | [facility] | 9.3 | (missing) | (missing) | | (unavailable | 22:23:07 [facility] | | | | + + + +-------+ + + + + | Result panel 1975 | + + + + + +-------+ + + | | 2023-03-04 | [facility] | 2.2 | (missing) | (missing) | | (unavailable | 22:23:07 [facility] | | | | + + + +-------+ + + + + | Result panel 1976 | + + + + + +-------+ + + | | 2023-03-04 | [facility] | 0.9 | (missing) | (missing) | | (unavailable | 22:23:07 [facility] | | | | + + + +-------+ + + + + | Result panel 1977 | + + + + + +-------+ + + | | 2023-03-04 | [facility] | 372 | (missing) | (missing) | | (unavailable | 23:00:07 | [facility] | | | | + + + +-------+ + + + + | Result panel 1978 | + + + + + + + + + | | 2023-03-12 | [facility] | NEGATIVE | (missing) | (missing) | | (unavailable | 12:47:07 | [facility] | | | | + + + + + + + + + | Result panel 1979 | + + + + + + + + + | | 2023-03-12 | [facility] | NEGATIVE | (missing) | (missing) | | (unavailable | 12:47:07 | [facility] | | | | + + + + + + + + + | Result panel 1980 | + + + + + +-------+ + + | | 2023-03-12 | [facility] | 5.6 | (missing) | (missing) | | (unavailable | 12:47:07 | [facility] | | | | + + + +-------+ + + + + | Result panel 1981 | + + + + + +--------+ + + | | 2023-03-12 | [facility] | 3.84 | (missing) | (missing) | | (unavailable | 12:47:07 [facility] | | | | + + + +--------+ + + + + | Result panel 1982 | + + + + + +--------+ + + | | 2023-03-12 | [facility] | 10.9 | (missing) | (missing) | | (unavailable | 12:47:07 [facility] | | | | + + + +--------+ + + + + | Result panel 1983 | + + + + + +--------+ + + | | 2023-03-12 | [facility] | 34.5 | (missing) | (missing) | | (unavailable | 12:47:07 [facility] | | | | + + + +--------+ + + + + | Result panel 1984 | + + + + + +--------+ + + | | 2023-03-12 | [facility] | 89.8 | (missing) | (missing) | | (unavailable | 12:47:07 | [facility] | | | | + + + +--------+ + + + + | Result panel 1985 | + + + + + +--------+ + + | | 2023-03-12 | [facility] | 28.4 | (missing) | (missing) | | (unavailable | 12:47:07 | [facility] | | | | + + + +--------+ + + + + | Result panel 1986 | + + + + + +--------+ + + | | 2023-03-12 | [facility] | 31.6 | (missing) | (missing) | | (unavailable | 12:47:07 | [facility] | | | | + + + +--------+ + + + + | Result panel 1987 | + + + + + +--------+ + + | | 2023-03-12 | [facility] | 15.1 | (missing) | (missing) | | (unavailable | 12:47:07 [facility] | | | | + + + +--------+ + + + + | Result panel 1988 | + + + + + +-------+ + + | | 2023-03-12 | [facility] | 461 | (missing) | (missing) | | (unavailable | 12:47:07 | [facility] | | | | + + + +-------+ + + + + | Result panel 1988 | + + + + + +--------+ + + | | 2023-03-12 | [facility] | 49.0 | (missing) | (missing) | | (unavailable | 12:47:07 | [facility] | | | | + + + +--------+ + + + + | Result panel 1989 | + + + + + +--------+ + + | | 2023-03-12 | [facility] | 42.2 | (missing) | (missing) | | (unavailable | 12:47:07 [facility] | | | | + + + +--------+ + + + + | Result panel 1991 | + + + + + +-------+ + + | | 2023-03-12 | [facility] | 5.6 | (missing) | (missing) | | (unavailable | 12:47:07 [facility] | | | | + + + +-------+ + + + + | Result panel 1991 | + + + + + +-------+ + + | | 2023-03-12 | [facility] | 1.9 | (missing) | (missing) | | (unavailable | 12:47:07 [facility] | | | | + + + +-------+ + + + + | Result panel 1992 | + + + + + +-------+ + + | | 2023-03-12 | [facility] | 1.3 | (missing) | (missing) | | (unavailable | 12:47:07 [facility] | | | | + + + +-------+ + + + + | Result panel 1993 | + + + + + +-------+ + + | | 2023-03-12 | [facility] | 9.4 | (missing) | (missing) | | (unavailable | 12:47:07 [facility] | | | | + + + +-------+ + + + + | Result panel 1994 | + + + + + +-------+ + + | | 2023-03-12 | [facility] | 4.1 | (missing) | (missing) | | (unavailable | 12:47:07 [facility] | | | | + + + +-------+ + + + + | Result panel 1995 | + + + + + +-------+ + + | | 2023-03-12 | [facility] | 5.3 | (missing) | (missing) | | (unavailable | 12:47:07 [facility] | | | | + + + +-------+ + + + + | Result panel 1996 | + + + + + +--------+ + + | | 2023-03-12 | [facility] | 0.77 | (missing) | (missing) | | (unavailable | 12:47:07 [facility] | | | | + + + +--------+ + + + + | Result panel 1997 | + + + + + +-------+ + + | | 2023-03-12 | [facility] | 0.2 | (missing) | (missing) | | (unavailable | 12:47:07 [facility] | | | | + + + +-------+ + + + + | Result panel 1998 | + + + + + +------+ + + | | 2023-03-12 | [facility] | 31 | (missing) | (missing) | | (unavailable | 12:47:07 | [facility] | | | | + + + +------+ + + + + | Result panel 1999 | + + + + + +------+ + + | | 2023-03-12 | [facility] | 32 | (missing) | (missing) | | (unavailable | 12:47:07 | [facility] | | | | + + + +------+ + + + + | Result panel 2000 | + + + + + +-------+ + + | | 2023-03-12 | [facility] | 314 | (missing) | (missing) | | (unavailable | 12:47:07 | [facility] | | | | + + + +-------+ + + + + | Result panel 2001 | + + + + + +-------+ + + | | 2023-03-12 | [facility] | 179 | (missing) | (missing) | | (unavailable | 12:47:07 | [facility] | | | | + + + +-------+ + + + + | Result panel 2002 | + + + + + + + + + | | 2023-03-12 | [facility] | NEGATIVE | (missing) | (missing) | | (unavailable | 12:47:07 | [facility] | | | | + + + + + + + + + | Result panel 2003 | + + + + + + + + + | | 2023-03-12 | [facility] | NEGATIVE | (missing) | (missing) | | (unavailable | 12:47:07 | [facility] | | | | + + + + + + + + + | Result panel 2004 | + + + + + + + + + | | 2023-03-12 | [facility] | NEGATIVE | (missing) | (missing) | | (unavailable | 13:04:07 | [facility] | | | | + + + + + + + + + | Result panel 2005 | + + + + + + + + + | | 2023-03-12 | [facility] | NEGATIVE | (missing) | (missing) | | (unavailable | 13:04:07 | [facility] | | | | + + + + + + + + + | Result panel 2006 | + + + + + + + + + | | 2023-03-12 | [facility] | NEGATIVE | (missing) | (missing) | | (unavailable | 13:04:07 | [facility] | | | | + + + + + + + + + | Result panel 2007 | + + + + + + + + + | | 2023-03-12 | [facility] | NEGATIVE | (missing) | (missing) | | (unavailable | 13:04:07 | [facility] | | | | + + + + + + + + + | Result panel 2009 | + + + + + + + + + | | 2023-03-12 | [facility] | NEGATIVE | (missing) | (missing) | | (unavailable | 13:04:07 | [facility] | | | | + + + + + + + + + | Result panel 2009 | + + + + + + + + + | | 2023-03-12 | [facility] | NEGATIVE | (missing) | (missing) | | (unavailable | 13:04:07 | [facility] | | | | + + + + + + + + + | Result panel 2010 | + + + + + + + + + | | 2023-03-12 | [facility] | NEGATIVE | (missing) | (missing) | | (unavailable | 13:04:07 | [facility] | | | | + + + + + + + + + | Result panel 2011 | + + + + + + + + + | | 2023-03-12 | [facility] | NEGATIVE | (missing) | (missing) | | (unavailable | 13:04:07 | [facility] | | | | + + + + + + + + + | Result panel 2012 | + + + + + + + + + | | 2023-03-12 | [facility] | NEGATIVE | (missing) | (missing) | | (unavailable | 13:04:07 | [facility] | | | | + + + + + + + + + | Result panel 2014 | + + + + + + + + + | | 2023-03-12 | [facility] | NEGATIVE | (missing) | (missing) | | (unavailable | 13:04:07 | [facility] | | | | + + + + + + + + + | Result panel 2015 | + + + + + + + + + | | 2023-03-12 | [facility] | NEGATIVE | (missing) | (missing) | | (unavailable | 13:04:07 | [facility] | | | | + + + + + + + + + | Result panel 2016 | + + + + + + + + + | | 2023-03-12 | [facility] | NEGATIVE | (missing) | (missing) | | (unavailable | 13:04:07 | [facility] | | | | + + + + + + + + + | Result panel 2017 | + + + + + + + + + | | 2023-03-12 | [facility] | NEGATIVE | (missing) | (missing) | | (unavailable | 13:04:07 | [facility] | | | | + + + + + + + + + | Result panel 2018 | + + + + + + + + + | | 2023-03-12 | [facility] | NEGATIVE | (missing) | (missing) | | (unavailable | 13:04:07 | [facility] | | | | + + + + + + + + + | Result panel 2019 | + + + + + + + + + | | 2023-03-12 | [facility] | NEGATIVE | (missing) | (missing) | | (unavailable | 13:04:07 | [facility] | | | | + + + + + + + + + | Result panel 2019 | + + + + + + + + + | | 2023-03-12 | [facility] | NEGATIVE | (missing) | (missing) | | (unavailable | 13:04:07 | [facility] | | | | + + + + + + + + + | Result panel 2020 | + + + + + +-------+ + + | | 2023-03-12 | [facility] | 232 | (missing) | (missing) | | (unavailable | 13:48:07 | [facility] | | | | + + + +-------+ + + + + | Result panel 2021 | + + + + + + + + + | | 2023-03-12 | [facility] | YELLOW | (missing) | (missing) | | (unavailable | 14:12:07 | [facility] | | | | + + + + + + + + + | Result panel 2022 | + + + + + +---------+ + + | | 2023-03-12 | [facility] | CLEAR | (missing) | (missing) | | (unavailable | 14:12:07 [facility] | | | | + + + +---------+ + + + + | Result panel 2023 | + + + + + + + + + | | 2023-03-12 | [facility] | >=1000 | (missing) | (missing) | | (unavailable | 14:12:07 [facility] | | | | + + + + + + + + + | Result panel 2024 | + + + + + + + + + | | 2023-03-12 | [facility] | NEGATIVE | (missing) | (missing) | | (unavailable | 14:12:07 [facility] | | | | + + + + + + + + + | Result panel 2025 | + + + + + + + + + | | 2023-03-12 | [facility] | NEGATIVE | (missing) | (missing) | | (unavailable | 14:12:07 | [facility] | | | | + + + + + + + + + | Result panel 2026 | + + + + + +---------+ + + | | 2023-03-12 | [facility] | 1.015 | (missing) | (missing) | | (unavailable | 14:12:07 [facility] | | | | + + + +---------+ + + + + | Result panel 2027 | + + + + + + + + + | | 2023-03-12 | [facility] | TRACE-I | (missing) | (missing) | | (unavailable | 14:12:07 | [facility] | | | | + + + + + + + + + | Result panel 2028 | + + + + + +-------+ + + | | 2023-03-12 | [facility] | 6.0 | (missing) | (missing) | | (unavailable | 14:12:07 [facility] | | | | + + + +-------+ + + + + | Result panel 2030 | + + + + + +-------+ + + | | 2023-03-12 | [facility] | 100 | (missing) | (missing) | | (unavailable | 14:12:07 [facility] | | | | + + + +-------+ + + + + | Result panel 2030 | + + + + + + + + + | | 2023-03-12 | [facility] | NORMAL | (missing) | (missing) | | (unavailable | 14:12:07 [facility] | | | | + + + + + + + + + | Result panel 2031 | + + + + + + + + + | | 2023-03-12 | [facility] | NEGATIVE | (missing) | (missing) | | (unavailable | 14:12:07 [facility] | | | | + + + + + + + + + | Result panel 2032 | + + + + + + + + + | | 2023-03-12 | [facility] | NEGATIVE | (missing) | (missing) | | (unavailable | 14:12:07 [facility] | | | | + + + + + + + + + | Result panel 2033 | + + + + + +-------+ + + | | 2023-03-12 | [facility] | 4-6 | (missing) | (missing) | | (unavailable | 14:12:07 [facility] | | | | + + + +-------+ + + + + | Result panel 2034 | + + + + + +-------+ + + | | 2023-03-12 | [facility] | 2-3 | (missing) | (missing) | | (unavailable | 14:12:07 [facility] | | | | + + + +-------+ + + + + | Result panel 2035 | + + + + + + + + + | | 2023-03-12 | [facility] | SQUAMOUS 1+ | (missing) | (missing) | | (unavailable | 14:12:07 | [facility] | | | | + + + + + + + + + | Result panel 2036 | + + + + + + + + + | | 2023-03-12 | [facility] | | (missing) | (missing) | | (unavailable | 14:12:07 | [facility] | 1+ | | | + + + + + + + + + | Result panel 2037 | + + + + + + + + + | | 2023-03-12 | [facility] | NONE SEEN | (missing) | (missing) | | (unavailable | 14:12:07 [facility] | | | | + + + + + + + + + | Result panel 2038 | + + + + + +--------+ + + | | 2023-03-12 | [facility] | RARE | (missing) | (missing) | | (unavailable | 14:12:07 [facility] | | | | + + + +--------+ + + + + | Result panel 2039 | + + + + + + + + + | | 2023-03-12 | [facility] | GRANULAR 1+ | (missing) | (missing) | | (unavailable | 14:12:07 | [facility] | | | | + + + + + + + + + | Result panel 2040 | + + + + + + + + + | | 2023-03-12 | [facility] | RBC CAST 1+ | (missing) | (missing) | | (unavailable | 14:12:07 | [facility] | | | | + + + + + + + + + | Result panel 2041 | + + + + + +------+ + + | | 2023-03-12 | [facility] | No | (missing) | (missing) | | (unavailable | 14:12:07 [facility] | | | | + + + +------+ + + + + | Result panel 2042 | + + + + + + + + + | | 2023-03-12 | [facility] | CLEAN CATCH | (missing) | (missing) | | (unavailable | 14:12:07 | [facility] | | | | + + + + + + + + + | Result panel 204 | + + + + + +-------+---------+ + | | 2023-03-12 | [facility] | 171 | mg/dL | (missing) | | (unavailable | 15:15:07 | [facility] | | | | + + + +-------+---------+ + + + | Result panel 204 | + + + + + +------+---------+ + | | 2023-03-12 | [facility] | 40 | mg/dL | (missing) | | (unavailable | 15:15:07 [facility] | | | | + + + +------+---------+ + + + | Result panel 2045 | + + + + + +--------+---------+ + | | 2023-03-12 | [facility] | 1.82 | mg/dL | (missing) | | (unavailable | 15:15:07 [facility] | | | | + + + +--------+---------+ + + + | Result panel 2046 | + + + + + +------+ + + | | 2023-03-12 | [facility] | 40 | (missing) | (missing) | | (unavailable | 15:15:07 [facility] | | | | + + + +------+ + + + + | Result panel 204 | + + + + + +---------+ + + | | 2023-03-12 | [facility] | 21.97 | (missing) | (missing) | | (unavailable | 15:15:07 [facility] | | | | + + + +---------+ + + + + | Result panel 204 | + + + + + +-------+ + + | | 2023-03-12 | [facility] | 138 | (missing) | (missing) | | (unavailable | 15:15:07 [facility] | | | | + + + +-------+ + + + + | Result panel 2049 | + + + + + +-------+ + + | | 2023-03-12 | [facility] | 3.5 | (missing) | (missing) | | (unavailable | 15:15:07 [facility] | | | | + + + +-------+ + + + + | Result panel 2050 | + + + + + +-------+ + + | | 2023-03-12 | [facility] | 106 | (missing) | (missing) | | (unavailable | 15:15:07 | [facility] | | | | + + + +-------+ + + + + | Result panel 2051 | + + + + + +------+ + + | | 2023-03-12 | [facility] | 19 | (missing) | (missing) | | (unavailable | 15:15:07 [facility] | | | | + + + +------+ + + + + | Result panel 2052 | + + + + + +--------+ + + | | 2023-03-12 | [facility] | 16.5 | (missing) | (missing) | | (unavailable | 15:15:07 [facility] | | | | + + + +--------+ + + + + | Result panel 2053 | + + + + + +-------+---------+ + | | 2023-03-12 | [facility] | 8.9 | mg/dL | (missing) | | (unavailable | 15:15:07 [facility] | | | | + + + +-------+---------+ + + + | Result panel 2054 | + + + + + + + + + | | 2023-03-20 | [facility] | CLEAN CATCH | (missing) | (missing) | | (unavailable | 13:50:07 | [facility] | | | | + + + + + + + + + | Result panel 2055 | + + + + + + + + + | | 2023-03-20 | [facility] | YELLOW | (missing) | (missing) | | (unavailable | 13:50:07 | [facility] | | | | + + + + + + + + + | Result panel 2056 | + + + + + +---------+ + + | | 2023-03-20 | [facility] | CLEAR | (missing) | (missing) | | (unavailable | 13:50:07 [facility] | | | | + + + +---------+ + + + + | Result panel 2057 | + + + + + + + + + | | 2023-03-20 | [facility] | >=1000 | (missing) | (missing) | | (unavailable | 13:50:07 | [facility] | | | | + + + + + + + + + | Result panel 2058 | + + + + + + + + + | | 2023-03-20 | [facility] | NEGATIVE | (missing) | (missing) | | (unavailable | 13:50:07 | [facility] | | | | + + + + + + + + + | Result panel 2059 | + + + + + +---------+ + + | | 2023-03-20 | [facility] | SMALL | (missing) | (missing) | | (unavailable | 13:50:07 | [facility] | | | | + + + +---------+ + + + + | Result panel 2060 | + + + + + +---------+ + + | | 2023-03-20 | [facility] | 1.015 | (missing) | (missing) | | (unavailable | 13:50:07 | [facility] | | | | + + + +---------+ + + + + | Result panel 2061 | + + + + + + + + + | | 2023-03-20 | [facility] | TRACE-I | (missing) | (missing) | | (unavailable | 13:50:07 | [facility] | | | | + + + + + + + + + | Result panel 2062 | + + + + + +-------+ + + | | 2023-03-20 | [facility] | 6.5 | (missing) | (missing) | | (unavailable | 13:50:07 | [facility] | | | | + + + +-------+ + + + + | Result panel 2063 | + + + + + +-------+ + + | | 2023-03-20 | [facility] | 100 | (missing) | (missing) | | (unavailable | 13:50:07 | [facility] | | | | + + + +-------+ + + + + | Result panel 2064 | + + + + + + + + + | | 2023-03-20 | [facility] | NORMAL | (missing) | (missing) | | (unavailable | 13:50:07 | [facility] | | | | + + + + + + + + + | Result panel 206 | + + + + + + + + + | | 2023-03-20 | [facility] | NEGATIVE | (missing) | (missing) | | (unavailable | 13:50:07 | [facility] | | | | + + + + + + + + + | Result panel 206 | + + + + + + + + + | | 2023-03-20 | [facility] | NEGATIVE | (missing) | (missing) | | (unavailable | 13:50:07 | [facility] | | | | + + + + + + + + + | Result panel 2067 | + + + + + +-------+ + + | | 2023-03-20 | [facility] | 2-3 | (missing) | (missing) | | (unavailable | 13:50:07 [facility] | [facility] | | + + + +-------+ + + + + | Result panel 2068 | + + + + + +-------+ + + | | 2023-03-20 | [facility] | 0-1 | (missing) | (missing) | | (unavailable | 13:50:07 | [facility] | | | + + + +-------+ + + + + | Result panel 2069 | + + + + + + + + + | | 2023-03-20 | [facility] | SQUAMOUS 1+ | (missing) | (missing) | | (unavailable | 13:50:07 | [facility] | | | | + + + + + + + + + | Result panel 2071 | + + + + + + + + + | | 2023-03-20 | [facility] | NONE SEEN | (missing) | (missing) | | (unavailable | 13:50:07 | [facility] | | | + + + + + + + + + | Result panel 207 | + + + + + +--------+ + + | | 2023-03-20 | [facility] | RARE | (missing) | (missing) | | (unavailable | 13:50:07 | [facility] | | | + + + +--------+ + + + + | Result panel 2072 | + + + + + + + + + | | 2023-03-20 | [facility] | NONE SEEN | (missing) | (missing) | | (unavailable | 13:50:07 | [facility] | | | + + + + + + + + + | Result panel 207 | + + + + + +------+ + + | | 2023-03-20 | [facility] | No | (missing) | (missing) | | (unavailable | 13:50:07 | [facility] | | | + + + +------+ + + + + | Result panel 2074 | + + + + + + + + + | | 2023-03-20 | [facility] | CLEAN CATCH | (missing) | (missing) | | (unavailable | 13:50:07 | [facility] | | | + + + + + + + + + | Result panel 207 | + + + + + + + + + | | 2023-03-20 | [facility] | CLEAN CATCH | (missing) | (missing) | | (unavailable | 13:50:07 | [facility] | | | + + + + + + + + + | Result panel 2076 | + + + + + +-------+ + + | | 2023-03-20 | [facility] | 6.2 | (missing) | (missing) | | (unavailable | 14:20:07 | [facility] | | | + + + +-------+ + + + + | Result panel 2077 | + + + + + +--------+ + + | | 2023-03-20 | [facility] | 3.18 | (missing) | (missing) | | (unavailable | 14:20:07 | [facility] | | | + + + +--------+ + + + + | Result panel 2078 | + + + + + +-------+ + + | | 2023-03-20 | [facility] | 9.2 | (missing) | (missing) | | (unavailable | 14:20:07 | [facility] | | | + + + +-------+ + + + + | Result panel 208 | + + + + + +--------+ + + | | 2023-03-20 | [facility] | 28.8 | (missing) | (missing) | | (unavailable | 14:20:07 | [facility] | | | + + + +--------+ + + + + | Result panel 208 | + + + + + +--------+ + + | | 2023-03-20 | [facility] | 90.3 | (missing) | (missing) | | (unavailable | 14:20:07 | [facility] | | | + + + +--------+ + + + + | Result panel 2081 | + + + + + +--------+ + + | | 2023-03-20 | [facility] | 28.9 | (missing) | (missing) | | (unavailable | 14:20:07 | [facility] | | | + + + +--------+ + + + + | Result panel 2082 | + + + + + +--------+ + + | | 2023-03-20 | [facility] | 32.0 | (missing) | (missing) | | (unavailable | 14:20:07 | [facility] | | | + + + +--------+ + + + + | Result panel 2084 | + + + + + +--------+ + + | | 2023-03-20 | [facility] | 15.8 | (missing) | (missing) | | (unavailable | 14:20:07 | [facility] | | | + + + +--------+ + + + + | Result panel 2085 | + + + + + +-------+ + + | | 2023-03-20 | [facility] | 329 | (missing) | (missing) | | (unavailable | 14:20:07 | [facility] | | | + + + +-------+ + + + + | Result panel 208 | + + + + + +--------+ + + | | 2023-03-20 | [facility] | 63.4 | (missing) | (missing) | | (unavailable | 14:20:07 | [facility] | | | + + + +--------+ + + + + | Result panel 208 | + + + + + +--------+ + + | | 2023-03-20 | [facility] | 29.3 | (missing) | (missing) | | (unavailable | 14:20:07 | [facility] | | | + + + +--------+ + + + + | Result panel 208 | + + + + + +-------+ + + | | 2023-03-20 | [facility] | 5.2 | (missing) | (missing) | | (unavailable | 14:20:07 | [facility] | | | + + + +-------+ + + + + | Result panel 2088 | + + + + + +-------+ + + | | 2023-03-20 | [facility] | 1.1 | (missing) | (missing) | | (unavailable | 14:20:07 | [facility] | | | + + + +-------+ + + + + | Result panel 209 | + + + + + +-------+ + + | | 2023-03-20 | [facility] | 1.0 | (missing) | (missing) | | (unavailable | 14:20:07 | [facility] | | | + + + +-------+ + + + + | Result panel 209 | + + + + + +-------+---------+ + | | 2023-03-20 | [facility] | 488 | mg/dL | (missing) | | (unavailable | 14:20:07 | [facility] | | | + + + +-------+---------+ + + + | Result panel 2091 | + + + + + +------+---------+ + | | 2023-03-20 | [facility] | 34 | mg/dL | (missing) | | (unavailable | 14:20:07 | [facility] | | | + + + +------+---------+ + + + | Result panel 209 | + + + + + +--------+---------+ + | | 2023-03-20 | [facility] | 2.20 | mg/dL | (missing) | | (unavailable | 14:20:07 | [facility] | | | + + + +--------+---------+ + + + | Result panel 209 | + + + + + +------+ + + | | 2023-03-20 | [facility] | 32 | (missing) | (missing) | | (unavailable | 14:20:07 | [facility] | | | + + + +------+ + + + + | Result panel 2094 | + + + + + +---------+ + + | | 2023-03-20 | [facility] | 15.45 | (missing) | (missing) | | (unavailable | 14:20:07 | [facility] | | | + + + +---------+ + + + + | Result panel 2095 | + + + + + +-------+ + + | | 2023-03-20 | [facility] | 131 | (missing) | (missing) | | (unavailable | 14:20:07 | [facility] | | | + + + +-------+ + + + + | Result panel 209 | + + + + + +-------+ + + | | 2023-03-20 | [facility] | 4.6 | (missing) | (missing) | | (unavailable | 14:20:07 | [facility] | | | + + + +-------+ + + + + | Result panel 2097 | + + + + + +------+ + + | | 2023-03-20 | [facility] | 98 | (missing) | (missing) | | (unavailable | 14::07 | [facility] | | | + + + +------+ + + + + | Result panel 2098 | + + + + + +------+ + + | | 2023-03-20 | [facility] | 20 | (missing) | (missing) | | (unavailable | 14:20:07 [facility] | | | + + + +------+ + + + + | Result panel 2100 | + + + + + +--------+ + + | | 2023-03-20 | [facility] | 17.6 | (missing) | (missing) | | (unavailable | 14:20:07 [facility] | | | + + + +--------+ + + + + | Result panel 2101 | + + + + + +-------+---------+ + | | 2023-03-20 | [facility] | 9.0 | mg/dL | (missing) | | (unavailable | 14:20:07 [facility] | | | + + + +-------+---------+ + + + | Result panel 2102 | + + + + + +-------+ + + | | 2023-03-20 | [facility] | 7.9 | (missing) | (missing) | | (unavailable | 14:20:07 [facility] | | | + + + +-------+ + + + + | Result panel 2103 | + + + + + +-------+ + + | | 2023-03-20 | [facility] | 3.8 | (missing) | (missing) | | (unavailable | 14:20:07 [facility] | | | + + + +-------+ + + + + | Result panel 2104 | + + + + + +-------+ + + | | 2023-03-20 | [facility] | 4.1 | (missing) | (missing) | | (unavailable | 14:20:07 [facility] | | | + + + +-------+ + + + + | Result panel 2105 | + + + + + +--------+ + + | | 2023-03-20 | [facility] | 0.93 | (missing) | (missing) | | (unavailable | 14:20:07 [facility] | | | + + + +--------+ + + + + | Result panel 210 | + + + + + +-------+ + + | | 2023-03-20 | [facility] | 0.5 | (missing) | (missing) | | (unavailable | 14:20:07 [facility] | | | + + + +-------+ + + + + | Result panel 2107 | + + + + + +------+ + + | | 2023-03-20 | [facility] | 15 | (missing) | (missing) | | (unavailable | 14:20:07 [facility] | | | + + + +------+ + + + + | Result panel 210 | + + + + + +------+ + + | | 2023-03-20 | [facility] | 23 | (missing) | (missing) | | (unavailable | 14:20:07 [facility] | | | + + + +------+ + + + + | Result panel 2109 | + + + + + +-------+ + + | | 2023-03-20 | [facility] | 248 | (missing) | (missing) | | (unavailable | 14:20:07 [facility] | | | + + + +-------+ + + + + | Result panel 2110 | + + + + + +-------+ + + | | 2023-03-20 | [facility] | 560 | (missing) | (missing) | | (unavailable | 14:20:07 [facility] | | | + + + +-------+ + + + + | Result panel 211 | + + + + + + + + + | | 2023-03-20 | [facility] | NEGATIVE | (missing) | (missing) | | (unavailable | 14:20:07 [facility] | | | + + + + + + + + + | Result panel 211 | + + + + + +-------+ + + | | 2023-03-20 | [facility] | 314 | (missing) | (missing) | | (unavailable | 16:55:07 | [facility] | | | + + + +-------+ + + + + | Result panel 211 | + + + + + +-------+ + + | | 2023-03-20 | [facility] | 314 | (missing) | (missing) | | (unavailable | 16:55:07 | [facility] | | | + + + +-------+ + + + + | Result panel 211 | + + + + + + + + + | | 2023-04-08 | [facility] | YELLOW | (missing) | (missing) | | (unavailable | 01:17:07 [facility] | | | + + + + + + + + + | Result panel 211 | + + + + + +---------+ + + | | 2023-04-08 | [facility] | CLEAR | (missing) | (missing) | | (unavailable | 01:17:07 [facility] | | | + + + +---------+ + + + + | Result panel 211 | + + + + + + + + + | | 2023-04-08 | [facility] | >=1000 | (missing) | (missing) | | (unavailable | 01:17:07 [facility] | | | + + + + + + + + + | Result panel 2116 | + + + + + + + + + | | 2023-04-08 | [facility] | NEGATIVE | (missing) | (missing) | | (unavailable | 01:17:07 [facility] | | | + + + + + + + + + | Result panel 2117 | + + + + + + + + + | | 2023-04-08 | [facility] | NEGATIVE | (missing) | (missing) | | (unavailable | 01:17:07 [facility] | | | + + + + + + + + + | Result panel 2118 | + + + + + +---------+ + + | | 2023-04-08 | [facility] | 1.020 | (missing) | (missing) | | (unavailable | 01:17:07 [facility] | | | + + + +---------+ + + + + | Result panel 2119 | + + + + + + + + + | | 2023-04-08 | [facility] | TRACE-I | (missing) | (missing) | | (unavailable | 01: [facility] | | | + + + + + + + + + | Result panel 2120 | + + + + + +-------+ + + | | 2023-04-08 | [facility] | 6.0 | (missing) | (missing) | | (unavailable | 01: [facility] | | | + + + +-------+ + + + + | Result panel 2121 | + + + + + +-------+ + + | | 2023-04-08 | [facility] | 100 | (missing) | (missing) | | (unavailable | 01: [facility] | | | + + + +-------+ + + + + | Result panel 212 | + + + + + + + + + | | 2023-04-08 | [facility] | NORMAL | (missing) | (missing) | | (unavailable | 01: [facility] | | | + + + + + + + + + | Result panel 212 | + + + + + + + + + | | 2023-04-08 | [facility] | NEGATIVE | (missing) | (missing) | | (unavailable | 01:17:07 [facility] | | | + + + + + + + + + | Result panel 212 | + + + + + + + + + | | 2023-04-08 | [facility] | NEGATIVE | (missing) | (missing) | | (unavailable | 01:17:07 [facility] | | | + + + + + + + + + | Result panel 212 | + + + + + +-------+ + + | | 2023-04-08 | [facility] | 2-3 | (missing) | (missing) | | (unavailable | 01:17:07 [facility] | | | + + + +-------+ + + + + | Result panel 2126 | + + + + + +---------+ + + | | 2023-04-08 | [facility] | 21-40 | (missing) | (missing) | | (unavailable | 01:17:07 [facility] | | | + + + +---------+ + + + + | Result panel 2128 | + + + + + + + + + | | 2023-04-08 | [facility] | SQUAMOUS 4+ | (missing) | (missing) | | (unavailable | 01:17:07 [facility] | | | + + + + + + + + + | Result panel 212 | + + + + + + + + + | | 2023-04-08 | [facility] | NONE SEEN | (missing) | (missing) | | (unavailable | 01:17:07 [facility] | | | + + + + + + + + + | Result panel 2130 | + + + + + +--------+ + + | | 2023-04-08 | [facility] | RARE | (missing) | (missing) | | (unavailable | 01::07 | [facility] | | | + + + +--------+ + + + + | Result panel 213 | + + + + + + + + + | | 2023-04-08 | [facility] | NONE SEEN | (missing) | (missing) | | (unavailable | 01:17:07 [facility] | | | + + + + + + + + + | Result panel 213 | + + + + + +------+ + + | | 2023-04-08 | [facility] | No | (missing) | (missing) | | (unavailable | 01:17:07 [facility] | | | + + + +------+ + + + + | Result panel 2132 | + + + + + +-------+---------+ + | | 2023-04-08 | [facility] | 388 | mg/dL | (missing) | | (unavailable | 02:05:07 [facility] | | | | + + + +-------+---------+ + + + | Result panel 2134 | + + + + + +------+---------+ + | | 2023-04-08 | [facility] | 44 | mg/dL | (missing) | | (unavailable | ::07 | [facility] | | | | + + + +------+---------+ + + + | Result panel 2135 | + + + + + +--------+---------+ + | | 2023-04-08 | [facility] | 2.11 | mg/dL | (missing) | | (unavailable | 02:05:07 [facility] | | | + + + +--------+---------+ + + + | Result panel 2136 | + + + + + +------+ + + | | 2023-04-08 | [facility] | 33 | (missing) | (missing) | | (unavailable | 02:05:07 [facility] | | | + + + +------+ + + + + | Result panel 213 | + + + + + +---------+ + + | | 2023-04-08 | [facility] | 20.85 | (missing) | (missing) | | (unavailable | 02:05:07 [facility] | | | + + + +---------+ + + + + | Result panel 213 | + + + + + +-------+ + + | | 2023-04-08 | [facility] | 132 | (missing) | (missing) | | (unavailable | 02:05:07 [facility] | | | + + + +-------+ + + + + | Result panel 213 | + + + + + +-------+ + + | | 2023-04-08 | [facility] | 4.0 | (missing) | (missing) | | (unavailable | 02:05:07 [facility] | | | + + + +-------+ + + + + | Result panel 214 | + + + + + +------+ + + | | 2023-04-08 | [facility] | 97 | (missing) | (missing) | | (unavailable | 02:05:07 [facility] | | | + + + +------+ + + + + | Result panel 214 | + + + + + +------+ + + | | 2023-04-08 | [facility] | 19 | (missing) | (missing) | | (unavailable | 02:05:07 [facility] | | | + + + +------+ + + + + | Result panel 214 | + + + + + +--------+ + + | | 2023-04-08 | [facility] | 20.0 | (missing) | (missing) | | (unavailable | 02:05:07 [facility] | | | + + + +--------+ + + + + | Result panel 214 | + + + + + +-------+---------+ + | | 2023-04-08 | [facility] | 8.8 | mg/dL | (missing) | | (unavailable | | [facility] | | | + + + +-------+---------+ + + + | Result panel 2144 | + + + + + +-------+---------+ + | | 2023-04-08 | [facility] | 2.1 | mg/dL | (missing) | | (unavailable | ::07 | [facility] | | | | + + + +-------+---------+ + + + | Result panel 2145 | + + + + + +-------+ + + | | 2023-04-08 | [facility] | 7.7 | (missing) | (missing) | | (unavailable | 02:05:07 [facility] | | | + + + +-------+ + + + + | Result panel 214 | + + + + + +-------+ + + | | 2023-04-08 | [facility] | 3.6 | (missing) | (missing) | | (unavailable | 02:05:07 [facility] | | | + + + +-------+ + + + + | Result panel 214 | + + + + + +-------+ + + | | 2023-04-08 | [facility] | 4.1 | (missing) | (missing) | | (unavailable | 02:05:07 [facility] | | | + + + +-------+ + + + + | Result panel 2148 | + + + + + +--------+ + + | | 2023-04-08 | [facility] | 0.88 | (missing) | (missing) | | (unavailable | 02::07 [facility] | | | + + + +--------+ + + + + | Result panel 2149 | + + + + + +-------+ + + | | 2023-04-08 | [facility] | 0.3 | (missing) | (missing) | | (unavailable | 02:05:07 [facility] | | | + + + +-------+ + + + + | Result panel 215 | + + + + + +------+ + + | | 2023-04-08 | [facility] | 18 | (missing) | (missing) | | (unavailable | 02:05:07 [facility] | | | + + + +------+ + + + + | Result panel 215 | + + + + + +------+ + + | | 2023-04-08 | [facility] | 21 | (missing) | (missing) | | (unavailable | 02:05:07 [facility] | | | + + + +------+ + + + + | Result panel 215 | + + + + + +-------+ + + | | 2023-04-08 | [facility] | 224 | (missing) | (missing) | | (unavailable | 02:05:07 [facility] | | | + + + +-------+ + + + + | Result panel 215 | + + + + + +-------+ + + | | 2023-04-08 | [facility] | 217 | (missing) | (missing) | | (unavailable | 02:05:07 [facility] | | | + + + +-------+ + + + + | Result panel 2154 | + + + + + + + + + | | 2023-04-08 | [facility] | NEGATIVE | (missing) | (missing) | | (unavailable | 02:05:07 [facility] | | | + + + + + + + + + | Result panel 215 | + + + + + + + + + | | 2023-04-08 | [facility] | NEGATIVE | (missing) | (missing) | | (unavailable | 02:05:07 [facility] | | | + + + + + + + + + | Result panel 215 | + + + + + +-------+ + + | | 2023-04-08 | [facility] | 6.6 | (missing) | (missing) | | (unavailable | 02:34:07 [facility] | | | + + + +-------+ + + + + | Result panel 215 | + + + + + +--------+ + + | | 2023-04-08 | [facility] | 3.05 | (missing) | (missing) | | (unavailable | 02:34:07 [facility] | | | + + + +--------+ + + + + | Result panel 215 | + + + + + +-------+ + + | | 2023-04-08 | [facility] | 9.1 | (missing) | (missing) | | (unavailable | 02:34:07 [facility] | | | + + + +-------+ + + + + | Result panel 2159 | + + + + + +--------+ + + | | 2023-04-08 | [facility] | 27.5 | (missing) | (missing) | | (unavailable | 02:34:07 [facility] | | | + + + +--------+ + + + + | Result panel 2160 | + + + + + +--------+ + + | | 2023-04-08 | [facility] | 90.0 | (missing) | (missing) | | (unavailable | 02:34:07 [facility] | | | + + + +--------+ + + + + | Result panel 2161 | + + + + + +--------+ + + | | 2023-04-08 | [facility] | 29.8 | (missing) | (missing) | | (unavailable | 02:34:07 [facility] | | | + + + +--------+ + + + + | Result panel 2162 | + + + + + +--------+ + + | | 2023-04-08 | [facility] | 33.1 | (missing) | (missing) | | (unavailable | 02:34:07 [facility] | | | + + + +--------+ + + + + | Result panel 2163 | + + + + + +--------+ + + | | 2023-04-08 | [facility] | 14.8 | (missing) | (missing) | | (unavailable | 02:34:07 [facility] | | | + + + +--------+ + + + + | Result panel 2164 | + + + + + +-------+ + + | | 2023-04-08 | [facility] | 360 | (missing) | (missing) | | (unavailable | 02:34:07 [facility] | | | + + + +-------+ + + + + | Result panel 2165 | + + + + + +--------+ + + | | 2023-04-08 | [facility] | 46.6 | (missing) | (missing) | | (unavailable | 02:34:07 [facility] | | | + + + +--------+ + + + + | Result panel 2166 | + + + + + +--------+ + + | | 2023-04-08 | [facility] | 43.2 | (missing) | (missing) | | (unavailable | 02:34:07 [facility] | | | + + + +--------+ + + + + | Result panel 2167 | + + + + + +-------+ + + | | 2023-04-08 | [facility] | 7.4 | (missing) | (missing) | | (unavailable | 02:34:07 [facility] | | | + + + +-------+ + + + + | Result panel 2168 | + + + + + +-------+ + + | | 2023-04-08 | [facility] | 1.7 | (missing) | (missing) | | (unavailable | 02:34:07 [facility] | | | + + + +-------+ + + + + | Result panel 2169 | + + + + + +-------+ + + | | 2023-04-08 | [facility] | 1.1 | (missing) | (missing) | | (unavailable | 02::07 [facility] | | | + + + +-------+ + + + + | Result panel 2170 | + + + + + +-------+ + + | | 2023-04-09 | [facility] | 8.1 | (missing) | (missing) | | (unavailable | 02:25:07 [facility] | | | + + + +-------+ + + + + | Result panel 2171 | + + + + + +-------+ + + | | 2023-04-09 | [facility] | 3.7 | (missing) | (missing) | | (unavailable | 02:25:07 [facility] | | | + + + +-------+ + + + + | Result panel 2172 | + + + + + +-------+ + + | | 2023-04-09 | [facility] | 4.4 | (missing) | (missing) | | (unavailable | 02::07 [facility] | | | + + + +-------+ + + + + | Result panel 217 | + + + + + +--------+ + + | | 2023-04-09 | [facility] | 0.84 | (missing) | (missing) | | (unavailable | 02::07 [facility] | | | + + + +--------+ + + + + | Result panel 2174 | + + + + + +-------+ + + | | 2023-04-09 | [facility] | 0.3 | (missing) | (missing) | | (unavailable | 02:25:07 [facility] | | | + + + +-------+ + + + + | Result panel 2175 | + + + + + +------+ + + | | 2023-04-09 | [facility] | 23 | (missing) | (missing) | | (unavailable | 02::07 | [facility] | | | | + + + +------+ + + + + | Result panel 2176 | + + + + + +------+ + + | | 2023-04-09 | [facility] | 23 | (missing) | (missing) | | (unavailable | 02::07 | [facility] | | | | + + + +------+ + + + + | Result panel 2177 | + + + + + +-------+ + + | | 2023-04-09 | [facility] | 234 | (missing) | (missing) | | (unavailable | 02:25:07 | [facility] | | | | + + + +-------+ + + + + | Result panel 2178 | + + + + + +-------+ + + | | 2023-04-09 | [facility] | 238 | (missing) | (missing) | | (unavailable | 02:25:07 | [facility] | | | | + + + +-------+ + + + + | Result panel 2179 | + + + + + +---------+ + + | | 2023-04-09 | [facility] | SMALL | (missing) | (missing) | | (unavailable | 02:25:07 | [facility] | | | | + + + +---------+ + + + + | Result panel 2180 | + + + + + + + + + | | 2023-04-09 | [facility] | YELLOW | (missing) | (missing) | | (unavailable | 02:50:07 | [facility] | | | | + + + + + + + + + | Result panel 2181 | + + + + + +---------+ + + | | 2023-04-09 | [facility] | CLEAR | (missing) | (missing) | | (unavailable | 02:50:07 | [facility] | | | | + + + +---------+ + + + + | Result panel 2182 | + + + + + + + + + | | 2023-04-09 | [facility] | >=1000 | (missing) | (missing) | | (unavailable | 02:50:07 | [facility] | | | | + + + + + + + + + | Result panel 2183 | + + + + + + + + + | | 2023-04-09 | [facility] | NEGATIVE | (missing) | (missing) | | (unavailable | 02:50:07 | [facility] | | | | + + + + + + + + + | Result panel 2184 | + + + + + +---------+ + + | | 2023-04-09 | [facility] | SMALL | (missing) | (missing) | | (unavailable | 02:50:07 | [facility] | | | | + + + +---------+ + + + + | Result panel 2185 | + + + + + +---------+ + + | | 2023-04-09 | [facility] | 1.015 | (missing) | (missing) | | (unavailable | 02:50:07 | [facility] | | | | + + + +---------+ + + + + | Result panel 2186 | + + + + + + + + + | | 2023-04-09 | [facility] | TRACE-I | (missing) | (missing) | | (unavailable | 02:50:07 | [facility] | | | | + + + + + + + + + | Result panel 2187 | + + + + + +-------+ + + | | 2023-04-09 | [facility] | 7.0 | (missing) | (missing) | | (unavailable | 02:50:07 | [facility] | | | | + + + +-------+ + + + + | Result panel 2188 | + + + + + +------+ + + | | 2023-04-09 | [facility] | 30 | (missing) | (missing) | | (unavailable | 02:50:07 | [facility] | | | | + + + +------+ + + + + | Result panel 2189 | + + + + + + + + + | | 2023-04-09 | [facility] | NORMAL | (missing) | (missing) | | (unavailable | 02:50:07 | [facility] | | | | + + + + + + + + + | Result panel 219 | + + + + + + + + + | | 2023-04-09 | [facility] | NEGATIVE | (missing) | (missing) | | (unavailable | 02:50:07 | [facility] | | | | + + + + + + + + + | Result panel 219 | + + + + + + + + + | | 2023-04-09 | [facility] | NEGATIVE | (missing) | (missing) | | (unavailable | 02:50:07 | [facility] | | | | + + + + + + + + + | Result panel 2192 | + + + + + +-------+ + + | | 2023-04-09 | [facility] | 2-3 | (missing) | (missing) | | (unavailable | 02:50:07 [facility] | | | + + + +-------+ + + + + | Result panel 2193 | + + + + + +-------+ + + | | 2023-04-09 | [facility] | 2-3 | (missing) | (missing) | | (unavailable | 02:50:07 [facility] | | | + + + +-------+ + + + + | Result panel 2194 | + + + + + + + + + | | 2023-04-09 | [facility] | SQUAMOUS 1+ | (missing) | (missing) | | (unavailable | 02:50:07 [facility] | | | + + + + + + + + + | Result panel 2195 | + + + + + + + + + | | 2023-04-09 | [facility] | NONE SEEN | (missing) | (missing) | | (unavailable | 02:50:07 [facility] | | | + + + + + + + + + | Result panel 2196 | + + + + + +--------+ + + | | 2023-04-09 | [facility] | RARE | (missing) | (missing) | | (unavailable | 02:50:07 [facility] | | | + + + +--------+ + + + + | Result panel 2197 | + + + + + + + + + | | 2023-04-09 | [facility] | NONE SEEN | (missing) | (missing) | | (unavailable | 02:50:07 [facility] | | | + + + + + + + + + | Result panel 2198 | + + + + + +------+ + + | | 2023-04-09 | [facility] | No | (missing) | (missing) | | (unavailable | 02:50:07 [facility] | | | + + + +------+ + + + + | Result panel 2199 | + + + + + +-------+---------+ + | | 2023-04-09 | [facility] | 1.8 | mg/dL | (missing) | | (unavailable | :44:07 | [facility] | | | + + + +-------+---------+ + + + | Result panel 2199 | + + + + + +-------+ + + | | 2023-04-09 | [facility] | 7.2 | (missing) | (missing) | | (unavailable | :44:07 [facility] | | | + + + +-------+ + + + + | Result panel 220 | + + + + + +--------+ + + | | 2023-04-09 | [facility] | 3.21 | (missing) | (missing) | | (unavailable | 06:44:07 [facility] | | | + + + +--------+ + + + + | Result panel 220 | + + + + + +-------+ + + | | 2023-04-09 | [facility] | 9.2 | (missing) | (missing) | | (unavailable | 06:44:07 [facility] | | | + + + +-------+ + + + + | Result panel 2203 | + + + + + +--------+ + + | | 2023-04-09 | [facility] | 28.7 | (missing) | (missing) | | (unavailable | 06:44:07 [facility] | | | + + + +--------+ + + + + | Result panel 2204 | + + + + + +--------+ + + | | 2023-04-09 | [facility] | 89.4 | (missing) | (missing) | | (unavailable | 06:44:07 [facility] | | | + + + +--------+ + + + + | Result panel 220 | + + + + + +--------+ + + | | 2023-04-09 | [facility] | 28.7 | (missing) | (missing) | | (unavailable | 06:44:07 [facility] | | | + + + +--------+ + + + + | Result panel 220 | + + + + + +--------+ + + | | 2023-04-09 | [facility] | 32.1 | (missing) | (missing) | | (unavailable | :44:07 | [facility] | | | + + + +--------+ + + + + | Result panel 220 | + + + + + +--------+ + + | | 2023-04-09 | [facility] | 15.0 | (missing) | (missing) | | (unavailable | 06:44:07 [facility] | | | + + + +--------+ + + + + | Result panel 2207 | + + + + + +-------+ + + | | 2023-04-09 | [facility] | 353 | (missing) | (missing) | | (unavailable | 06:44:07 [facility] | | | + + + +-------+ + + + + | Result panel 2209 | + + + + + +--------+ + + | | 2023-04-09 | [facility] | 52.3 | (missing) | (missing) | | (unavailable | 06:44:07 [facility] | | | + + + +--------+ + + + + | Result panel 2210 | + + + + + +--------+ + + | | 2023-04-09 | [facility] | 37.5 | (missing) | (missing) | | (unavailable | 06:44:07 [facility] | | | + + + +--------+ + + + + | Result panel 221 | + + + + + +-------+ + + | | 2023-04-09 | [facility] | 8.1 | (missing) | (missing) | | (unavailable | 06:44:07 [facility] | | | + + + +-------+ + + + + | Result panel 2212 | + + + + + +-------+ + + | | 2023-04-09 | [facility] | 1.4 | (missing) | (missing) | | (unavailable | 06:44:07 [facility] | | | + + + +-------+ + + + + | Result panel 2213 | + + + + + +-------+ + + | | 2023-04-09 | [facility] | 0.7 | (missing) | (missing) | | (unavailable | 06:44:07 [facility] | | | + + + +-------+ + + + + | Result panel 2214 | + + + + + +------+---------+ + | | 2023-04-09 | [facility] | 35 | mg/dL | (missing) | | (unavailable | 14:10:07 [facility] | | | + + + +------+---------+ + + + | Result panel 2215 | + + + + + +--------+---------+ + | | 2023-04-09 | [facility] | 2.34 | mg/dL | (missing) | | (unavailable | 14:10:07 [facility] | | | + + + +--------+---------+ + + + | Result panel 2216 | + + + + + +------+ + + | | 2023-04-09 | [facility] | 29 | (missing) | (missing) | | (unavailable | 14:10:07 [facility] | | | + + + +------+ + + + + | Result panel 2217 | + + + + + +---------+ + + | | 2023-04-09 | [facility] | 14.95 | (missing) | (missing) | | (unavailable | 14:10:07 [facility] | | | + + + +---------+ + + + + | Result panel 2218 | + + + + + +-------+ + + | | 2023-04-09 | [facility] | 134 | (missing) | (missing) | | (unavailable | 14:10:07 [facility] | | | + + + +-------+ + + + + | Result panel 2219 | + + + + + +-------+ + + | | 2023-04-09 | [facility] | 4.4 | (missing) | (missing) | | (unavailable | 14:10:07 [facility] | | | + + + +-------+ + + + + | Result panel 2220 | + + + + + +-------+ + + | | 2023-04-09 | [facility] | 101 | (missing) | (missing) | | (unavailable | 14:10:07 [facility] | | | + + + +-------+ + + + + | Result panel 2221 | + + + + + +------+ + + | | 2023-04-09 | [facility] | 21 | (missing) | (missing) | | (unavailable | 14:10:07 [facility] | | | + + + +------+ + + + + | Result panel 2222 | + + + + + +--------+ + + | | 2023-04-09 | [facility] | 16.4 | (missing) | (missing) | | (unavailable | 14:10:07 [facility] | | | + + + +--------+ + + + + | Result panel 2223 | + + + + + +-------+---------+ + | | 2023-04-09 | [facility] | 9.1 | mg/dL | (missing) | | (unavailable | 14:10:07 [facility] | | | + + + +-------+---------+ + + + | Result panel 2224 | + + + + + +-------+---------+ + | | 2023-04-09 | [facility] | 260 | mg/dL | (missing) | | (unavailable | 14:10:07 [facility] | | | + + + +-------+---------+ + + + | Result panel 2225 | + + + + + +------+ + + | | 2023-04-09 | [facility] | 79 | (missing) | (missing) | | (unavailable | 17:09:07 [facility] | | | + + + +------+ + + + + | Result panel 2226 | + + + + + +-------+ + + | | 2023-04-22 | [facility] | 8.1 | (missing) | (missing) | | (unavailable | 01:32:07 [facility] | | | + + + +-------+ + + + + | Result panel 2227 | + + + + + +-------+ + + | | 2023-04-22 | [facility] | 3.7 | (missing) | (missing) | | (unavailable | 01:32:07 [facility] | | | + + + +-------+ + + + + | Result panel 2228 | + + + + + +-------+ + + | | 2023-04-22 | [facility] | 4.4 | (missing) | (missing) | | (unavailable | 01:32:07 [facility] | | | + + + +-------+ + + + + | Result panel 2229 | + + + + + +--------+ + + | | 2023-04-22 | [facility] | 0.84 | (missing) | (missing) | | (unavailable | 01:32:07 [facility] | | | + + + +--------+ + + + + | Result panel 2230 | + + + + + +-------+ + + | | 2023-04-22 | [facility] | 0.3 | (missing) | (missing) | | (unavailable | 01:32:07 [facility] | | | + + + +-------+ + + + + | Result panel 2231 | + + + + + +------+ + + | | 2023-04-22 | [facility] | 18 | (missing) | (missing) | | (unavailable | 01:32:07 [facility] | | | + + + +------+ + + + + | Result panel 2232 | + + + + + +------+ + + | | 2023-04-22 | [facility] | 20 | (missing) | (missing) | | (unavailable | 01:32:07 [facility] | | | + + + +------+ + + + + | Result panel 2233 | + + + + + +-------+ + + | | 2023-04-22 | [facility] | 241 | (missing) | (missing) | | (unavailable | 01:32:07 [facility] | | | + + + +-------+ + + + + | Result panel 2234 | + + + + + + + + + | | 2023-04-22 | [facility] | NEGATIVE | (missing) | (missing) | | (unavailable | 01:32:07 [facility] | | | + + + + + + + + + | Result panel 2235 | + + + + + + + + + | | 2023-04-22 | [facility] | NEGATIVE | (missing) | (missing) | | (unavailable | 01:32:07 [facility] | | | + + + + + + + + + | Result panel 2236 | + + + + + +-------+---------+ + | | 2023-04-23 | [facility] | 113 | mg/dL | (missing) | | (unavailable | 05:10:07 [facility] | | | + + + +-------+---------+ + + + | Result panel 2237 | + + + + + +------+---------+ + | | 2023-04-23 | [facility] | 18 | mg/dL | (missing) | | (unavailable | 05:10:07 [facility] | | | + + + +------+---------+ + + + | Result panel 2238 | + + + + + +--------+---------+ + | | 2023-04-23 | [facility] | 1.57 | mg/dL | (missing) | | (unavailable | 05:10:07 [facility] | | | + + + +--------+---------+ + + + | Result panel 2239 | + + + + + +------+ + + | | 2023-04-23 | [facility] | 47 | (missing) | (missing) | | (unavailable | 05:10:07 [facility] | | | + + + +------+ + + + + | Result panel 2240 | + + + + + +---------+ + + | | 2023-04-23 | [facility] | 11.46 | (missing) | (missing) | | (unavailable | 05:10:07 [facility] | | | + + + +---------+ + + + + | Result panel 2241 | + + + + + +-------+ + + | | 2023-04-23 | [facility] | 141 | (missing) | (missing) | | (unavailable | 05:10:07 [facility] | | | + + + +-------+ + + + + | Result panel 224 | + + + + + +-------+ + + | | 2023-04-23 | [facility] | 3.4 | (missing) | (missing) | | (unavailable | 05:10:07 [facility] | | | + + + +-------+ + + + + | Result panel 2243 | + + + + + +-------+ + + | | 2023-04-23 | [facility] | 109 | (missing) | (missing) | | (unavailable | 05:10:07 [facility] | | | + + + +-------+ + + + + | Result panel 224 | + + + + + +------+ + + | | 2023-04-23 | [facility] | 21 | (missing) | (missing) | | (unavailable | 05:10:07 [facility] | | | + + + +------+ + + + + | Result panel 2245 | + + + + + +--------+ + + | | 2023-04-23 | [facility] | 14.4 | (missing) | (missing) | | (unavailable | 05:10:07 [facility] | | | + + + +--------+ + + + + | Result panel 2246 | + + + + + +-------+---------+ + | | 2023-04-23 | [facility] | 8.9 | mg/dL | (missing) | | (unavailable | 05:10:07 [facility] | | | + + + +-------+---------+ + + + | Result panel 2247 | + + + + + +-------+---------+ + | | 2023-04-23 | [facility] | 1.7 | mg/dL | (missing) | | (unavailable | 05:10:07 [facility] | | | + + + +-------+---------+ + + + | Result panel 2248 | + + + + + +-------+ + + | | 2023-04-23 | [facility] | 4.0 | (missing) | (missing) | | (unavailable | 14:04:07 [facility] | | | + + + +-------+ + + + + | Result panel 2249 | + + + + + +--------+ + + | | 2023-04-23 | [facility] | 2.64 | (missing) | (missing) | | (unavailable | 14:04:07 [facility] | | | + + + +--------+ + + + + | Result panel 2250 | + + + + + +-------+ + + | | 2023-04-23 | [facility] | 7.7 | (missing) | (missing) | | (unavailable | 14:04:07 [facility] | | | + + + +-------+ + + + + | Result panel 2251 | + + + + + +--------+ + + | | 2023-04-23 | [facility] | 24.1 | (missing) | (missing) | | (unavailable | 14:04:07 [facility] | | | + + + +--------+ + + + + | Result panel 2252 | + + + + + +--------+ + + | | 2023-04-23 | [facility] | 91.1 | (missing) | (missing) | | (unavailable | 14:04:07 [facility] | | | + + + +--------+ + + + + | Result panel 2253 | + + + + + +--------+ + + | | 2023-04-23 | [facility] | 29.2 | (missing) | (missing) | | (unavailable | 14:04:07 [facility] | | | + + + +--------+ + + + + | Result panel 2254 | + + + + + +--------+ + + | | 2023-04-23 | [facility] | 32.0 | (missing) | (missing) | | (unavailable | 14:04:07 [facility] | | | + + + +--------+ + + + + | Result panel 2255 | + + + + + +--------+ + + | | 2023-04-23 | [facility] | 14.5 | (missing) | (missing) | | (unavailable | 14:04:07 [facility] | | | + + + +--------+ + + + + | Result panel 2256 | + + + + + +-------+ + + | | 2023-04-23 | [facility] | 294 | (missing) | (missing) | | (unavailable | 14:04:07 [facility] | | | + + + +-------+ + + + + | Result panel 2257 | + + + + + +--------+ + + | | 2023-04-23 | [facility] | 42.4 | (missing) | (missing) | | (unavailable | 14:04:07 [facility] | | | | + + + +--------+ + + + + | Result panel 2258 | + + + + + +--------+ + + | | 2023-04-23 | [facility] | 46.2 | (missing) | (missing) | | (unavailable | 14:04:07 [facility] | | | + + + +--------+ + + + + | Result panel 2259 | + + + + + +-------+ + + | | 2023-04-23 | [facility] | 7.1 | (missing) | (missing) | | (unavailable | 14:04:07 [facility] | | | + + + +-------+ + + + + | Result panel 2260 | + + + + + +-------+ + + | | 2023-04-23 | [facility] | 3.5 | (missing) | (missing) | | (unavailable | 14:04:07 [facility] | | | + + + +-------+ + + + + | Result panel 2261 | + + + + + +-------+ + + | | 2023-04-23 | [facility] | 0.8 | (missing) | (missing) | | (unavailable | 14:04:07 [facility] | | | + + + +-------+ + + + + | Result panel 2262 | + + + + + +-------+ + + | | 2023-04-23 | [facility] | 378 | (missing) | (missing) | | (unavailable | 14:04:07 [facility] | | | + + + +-------+ + + + + | Result panel 2263 | + + + + + +-------+ + + | | 2023-04-23 | [facility] | 274 | (missing) | (missing) | | (unavailable | 15:51:07 [facility] | | | + + + +-------+ + + + + | Result panel 2264 | + + + + + + + + + | | 2023-05-05 | [facility] | YELLOW | (missing) | (missing) | | (unavailable | 21:41:07 [facility] | | | | + + + + + + + + + | Result panel 2264 | + + + + + + + + + | | 2023-05-05 | [facility] | NORMAL | (missing) | (missing) | | (unavailable | 21:41:07 [facility] | | | | + + + + + + + + + | Result panel 2266 | + + + + + + + + + | | 2023-05-05 | [facility] | NEGATIVE | (missing) | (missing) | | (unavailable | 21:41:07 [facility] | | | | + + + + + + + + + | Result panel 2266 | + + + + + + + + + | | 2023-05-05 | [facility] | NEGATIVE | (missing) | (missing) | | (unavailable | 21:41:07 [facility] | | | | + + + + + + + + + | Result panel 226 | + + + + + +-------+ + + | | 2023-05-05 | [facility] | 4-6 | (missing) | (missing) | | (unavailable | 21:41:07 [facility] | | | | + + + +-------+ + + + + | Result panel 2269 | + + + + + +--------+ + + | | 2023-05-05 | [facility] | 7-11 | (missing) | (missing) | | (unavailable | 21:41:07 [facility] | | | + + + +--------+ + + + + | Result panel 2270 | + + + + + + + + + | | 2023-05-05 | [facility] | SQUAMOUS 2+ | (missing) | (missing) | | (unavailable | 21:41:07 [facility] | | | | + + + + + + + + + | Result panel 2271 | + + + + + + + + + | | 2023-05-05 | [facility] | NONE SEEN | (missing) | (missing) | | (unavailable | 21:41:07 [facility] | | | | + + + + + + + + + | Result panel 2272 | + + + + + +--------+ + + | | 2023-05-05 | [facility] | RARE | (missing) | (missing) | | (unavailable | 21:41:07 [facility] | | | | + + + +--------+ + + + + | Result panel 2273 | + + + + + + + + + | | 2023-05-05 | [facility] | NONE SEEN | (missing) | (missing) | | (unavailable | 21:41:07 [facility] | | | | + + + + + + + + + | Result panel 2274 | + + + + + +------+ + + | | 2023-05-05 | [facility] | No | (missing) | (missing) | | (unavailable | 21:41:07 [facility] | | | | + + + +------+ + + + + | Result panel 2275 | + + + + + +---------+ + + | | 2023-05-05 | [facility] | CLEAR | (missing) | (missing) | | (unavailable | 21:41:07 [facility] | | | | + + + +---------+ + + + + | Result panel 2276 | + + + + + + + + + | | 2023-05-05 | [facility] | NEGATIVE | (missing) | (missing) | | (unavailable | 21:41:07 [facility] | | | | + + + + + + + + + | Result panel 2277 | + + + + + + + + + | | 2023-05-05 | [facility] | >=1000 | (missing) | (missing) | | (unavailable | 21:41:07 [facility] | | | | + + + + + + + + + | Result panel 2278 | + + + + + + + + + | | 2023-05-05 | [facility] | NEGATIVE | (missing) | (missing) | | (unavailable | 21:41:07 [facility] | | | | + + + + + + + + + | Result panel 2279 | + + + + + +---------+ + + | | 2023-05-05 | [facility] | TRACE | (missing) | (missing) | | (unavailable | 21:41:07 [facility] | | | | + + + +---------+ + + + + | Result panel 2280 | + + + + + +---------+ + + | | 2023-05-05 | [facility] | 1.020 | (missing) | (missing) | | (unavailable | 21:41:07 [facility] | | | | + + + +---------+ + + + + | Result panel 228 | + + + + + + + + + | | 2023-05-05 | [facility] | TRACE-I | (missing) | (missing) | | (unavailable | 21:41:07 [facility] | | | | + + + + + + + + + | Result panel 228 | + + + + + +-------+ + + | | 2023-05-05 | [facility] | 6.0 | (missing) | (missing) | | (unavailable | 21:41:07 [facility] | | | | + + + +-------+ + + + + | Result panel 228 | + + + + + +-------+ + + | | 2023-05-05 | [facility] | 100 | (missing) | (missing) | | (unavailable | 21:41:07 | [facility] | | | | + + + +-------+ + + + + | Rh blood group typing | + + + + + + + + + | Rh blood | (no date) | [facility] | POSITIVE | (missing) | (missing) | | group typing | | [facility] | | | | + + + + + + + + + | Immediate spin crossmatch | + + + + + + + + + | Immediate | (no date) | [facility] | COMPATIBLE | (missing) | (missing) | | spin | [facility] crossmatch | | Hospital | | | | + + + + + + + + + | Immediate spin crossmatch | + + + + + + + + + | Immediate | (no date) | [facility] | COMPATIBLE | (missing) | (missing) | | spin | | [facility] crossmatch | [facility] | | | | + + + + + + + + + | Transf Band Num Patient | + + + + + + + + + | Transf Band | (no date) | [facility] | BLOOD IN | (missing) | (missing) | | Num Patient | | [facility] | | | | + + + + + + + + + | Num units trans packed RBC | + + + + + + + + + | Num units | (no date) | [facility] | | (missing) | (missing) | | trans packed | | [facility] | [phone] | | | | RBC | | Hospital | 00D | | | + + + + + + + + + | Bacterial urine culture | + + + + + +-------+ + + | Whole blood | 2022-03-22 | [facility] | 163 | (missing) | (missing) | | glucose | 07:51 | [facility] | | | | | measurement | | Hospital | | | | | using | | | | | | | handheld | | | | | | | analyzer | | | | | | | (mass/volume | | | | | | | ) | | | | | | + + + +-------+ + + + + | Blood ABO group typing | + + + + + +-----+ + + | Blood ABO | (no date) | [facility] | A | (missing) | (missing) | | group typing | | [place] [facility] | | [facility] | | [facility] | | | | + + + +-----+ + + Social History + + + + | date | description | facility | + + + + | 2022-03-22 00:00 | Never smoker | [facility] | + + + + Vital Signs + + + +---------+ | date | measurement | value | units | + + + +---------+ | 2021-09-27 00:00 | BMI | 21.5 | kg/m2 | + + + +---------+ | 2021-09-27 00:00 | BP_diastolic | 109 | mmHg | + + + +---------+ | 2021-09-27 00:00 | BP_systolic | 146 | mmHg | + + + +---------+ | 2021-09-27 00:00 | heart_rate | 90 | /min | + + + +---------+ | 2021-09-27 00:00 | height_metric | 149.86 | cm | + + + +---------+ | 2021-09-27 00:00 | height_standard | 59 | in | + + + +---------+ | 2021-09-27 00:00 | o2_saturation | 98 | % | + + + +---------+ | 2021-09-27 00:00 | respiration_rate | 19 | /min | + + + +---------+ | 2021-09-27 00:00 | temperature_metric | 37.11 | C | | | | | | + + + +---------+ | 2021-09-27 00:00 | | 98.8 | F | | | temperature_standar | | | | | d | | | + + + +---------+ | 2021-09-27 00:00 | weight_metric | 48.19 | kg | + + + +---------+ | 2021-09-27 00:00 | weight_standard | 106.24 | lb | + + + +---------+ | 2021-09-27 00:00 | weight_standard | 106.25 | lb | + + + +---------+ | 2021-10-24 00:00 | BMI | 20.5 | kg/m2 | + + + +---------+ | 2021-10-24 00:00 | height_metric | 149.86 | cm | + + + +---------+ | 2021-10-24 00:00 | height_standard | 59 | in | + + + +---------+ | 2021-10-24 00:00 | weight_metric | 45.98 | kg | + + + +---------+ | 2021-10-24 00:00 | weight_metric | 45.99 | kg | + + + +---------+ | 2021-10-24 00:00 | weight_standard | 101.37 | lb | + + + +---------+ | 2021-10-24 00:00 | weight_standard | 101.38 | lb | + + + +---------+ | 2021-10-25 00:00 | BP_diastolic | 92 | mmHg | + + + +---------+ | 2021-10-25 00:00 | BP_systolic | 124 | mmHg | + + + +---------+ | 2021-10-25 00:00 | heart_rate | 103 | /min | + + + +---------+ | 2021-10-25 00:00 | o2_saturation | 98 | % | + + + +---------+ | 2021-10-25 00:00 | respiration_rate | 18 | /min | + + + +---------+ | 2021-10-25 00:00 | temperature_metric | 36.72 | C | | | | | | + + + +---------+ | 2021-10-25 00:00 | | 98.1 | F | | | temperature_standar | | | | | d | | | + + + +---------+ | 2021-11-03 00:00 | BMI | 20.4 | kg/m2 | + + + +---------+ | 2021-11-03 00:00 | BP_diastolic | 104 | mmHg | + + + +---------+ | 2021-11-03 00:00 | BP_systolic | 158 | mmHg | + + + +---------+ | 2021-11-03 00:00 | heart_rate | 89 | /min | + + + +---------+ | 2021-11-03 00:00 | height_metric | 149.86 | cm | + + + +---------+ | 2021-11-03 00:00 | height_standard | 59 | in | + + + +---------+ | 2021-11-03 00:00 | o2_saturation | 99 | % | + + + +---------+ | 2021-11-03 00:00 | respiration_rate | 17 | /min | + + + +---------+ | 2021-11-03 00:00 | temperature_metric | 36.61 | C | | | | | | + + + +---------+ | 2021-11-03 00:00 | | 97.9 | F | | | temperature_standar | | | | | d | | | + + + +---------+ | 2021-11-03 00:00 | weight_metric | 45.81 | kg | + + + +---------+ | 2021-11-03 00:00 | weight_standard | 101 | lb | + + + +---------+ | 2021-11-08 00:00 | BMI | 20.5 | kg/m2 | + + + +---------+ | 2021-11-08 00:00 | BP_diastolic | 95 | mmHg | + + + +---------+ | 2021-11-08 00:00 | BP_systolic | 136 | mmHg | + + + +---------+ | 2021-11-08 00:00 | heart_rate | 81 | /min | + + + +---------+ | 2021-11-08 00:00 | height_metric | 149.86 | cm | + + + +---------+ | 2021-11-08 00:00 | height_standard | 59 | in | + + + +---------+ | 2021-11-08 00:00 | o2_saturation | 97 | % | + + + +---------+ | 2021-11-08 00:00 | respiration_rate | 17 | /min | + + + +---------+ | 2021-11-08 00:00 | temperature_metric | 36.72 | C | | | | | | + + + +---------+ | 2021-11-08 00:00 | | 98.1 | F | | | temperature_standar | | | | | d | | | + + + +---------+ | 2021-11-08 00:00 | weight_metric | 45.98 | kg | + + + +---------+ | 2021-11-08 00:00 | weight_metric | 45.99 | kg | + + + +---------+ | 2021-11-08 00:00 | weight_standard | 101.37 | lb | + + + +---------+ | 2021-11-08 00:00 | weight_standard | 101.38 | lb | + + + +---------+ | 2021-11-26 00:00 | BMI | 21.0 | kg/m2 | + + + +---------+ | 2021-11-26 00:00 | height_metric | 149.86 | cm | + + + +---------+ | 2021-11-26 00:00 | height_standard | 59 | in | + + + +---------+ | 2021-11-26 00:00 | weight_metric | 47.2 | kg | + + + +---------+ | 2021-11-26 00:00 | weight_standard | 104.06 | lb | + + + +---------+ | 2021-11-27 00:00 | BP_diastolic | 109 | mmHg | + + + +---------+ | 2021-11-27 00:00 | BP_systolic | 157 | mmHg | + + + +---------+ | 2021-11-27 00:00 | heart_rate | 98 | /min | + + + +---------+ | 2021-11-27 00:00 | o2_saturation | 99 | % | + + + +---------+ | 2021-11-27 00:00 | respiration_rate | 16 | /min | + + + +---------+ | 2021-11-27 00:00 | temperature_metric | 36.83 | C | | | | | | + + + +---------+ | 2021-11-27 00:00 | | 98.3 | F | | | temperature_standar | | | | | d | | | + + + +---------+ | 2021-12-04 00:00 | BMI | 20.8 | kg/m2 | + + + +---------+ | 2021-12-04 00:00 | height_metric | 149.86 | cm | + + + +---------+ | 2021-12-04 00:00 | height_standard | 59 | in | + + + +---------+ | 2021-12-04 00:00 | weight_metric | 46.72 | kg | + + + +---------+ | 2021-12-04 00:00 | weight_standard | 103 | lb | + + + +---------+ | 2021-12-05 00:00 | BP_diastolic | 95 | mmHg | + + + +---------+ | 2021-12-05 00:00 | BP_systolic | 143 | mmHg | + + + +---------+ | 2021-12-05 00:00 | heart_rate | 94 | /min | + + + +---------+ | 2021-12-05 00:00 | o2_saturation | 99 | % | + + + +---------+ | 2021-12-05 00:00 | respiration_rate | 18 | /min | + + + +---------+ | 2021-12-05 00:00 | temperature_metric | 37 | C | | | | | | + + + +---------+ | 2021-12-05 00:00 | | 98.6 | F | | | temperature_standar | | | | | d | | | + + + +---------+ | 2021-12-23 00:00 | BMI | 19.4 | kg/m2 | + + + +---------+ | 2021-12-23 00:00 | BP_diastolic | 100 | mmHg | + + + +---------+ | 2021-12-23 00:00 | BP_systolic | 147 | mmHg | + + + +---------+ | 2021-12-23 00:00 | heart_rate | 101 | /min | + + + +---------+ | 2021-12-23 00:00 | height_metric | 149.86 | cm | + + + +---------+ | 2021-12-23 00:00 | height_standard | 59 | in | + + + +---------+ | 2021-12-23 00:00 | o2_saturation | 98 | % | + + + +---------+ | 2021-12-23 00:00 | respiration_rate | 25 | /min | + + + +---------+ | 2021-12-23 00:00 | temperature_metric | 36.89 | C | | | | | | + + + +---------+ | 2021-12-23 00:00 | | 98.4 | F | | | temperature_standar | | | | | d | | | + + + +---------+ | 2021-12-23 00:00 | weight_metric | 43.6 | kg | + + + +---------+ | 2021-12-23 00:00 | weight_standard | 96.12 | lb | + + + +---------+ | 2022-02-07 00:00 | BMI | 20.5 | kg/m2 | + + + +---------+ | 2022-02-07 00:00 | height_metric | 149.86 | cm | + + + +---------+ | 2022-02-07 00:00 | height_standard | 59 | in | + + + +---------+ | 2022-02-07 00:00 | weight_metric | 46 | kg | + + + +---------+ | 2022-02-07 00:00 | weight_standard | 101.41 | lb | + + + +---------+ | 2022-02-08 00:00 | BP_diastolic | 87 | mmHg | + + + +---------+ | 2022-02-08 00:00 | BP_systolic | 126 | mmHg | + + + +---------+ | 2022-02-08 00:00 | heart_rate | 100 | /min | + + + +---------+ | 2022-02-08 00:00 | o2_saturation | 98 | % | + + + +---------+ | 2022-02-08 00:00 | respiration_rate | 16 | /min | + + + +---------+ | 2022-02-08 00:00 | temperature_metric | 36.72 | C | | | | | | + + + +---------+ | 2022-02-08 00:00 | | 98.1 | F | | | temperature_standar | | | | | d | | | + + + +---------+ | 2022-02-13 00:00 | BMI | 20.4 | kg/m2 | + + + +---------+ | 2022-02-13 00:00 | BP_diastolic | 91 | mmHg | + + + +---------+ | 2022-02-13 00:00 | BP_systolic | 129 | mmHg | + + + +---------+ | 2022-02-13 00:00 | heart_rate | 94 | /min | + + + +---------+ | 2022-02-13 00:00 | height_metric | 149.86 | cm | + + + +---------+ | 2022-02-13 00:00 | height_standard | 59 | in | + + + +---------+ | 2022-02-13 00:00 | o2_saturation | 99 | % | + + + +---------+ | 2022-02-13 00:00 | respiration_rate | 16 | /min | + + + +---------+ | 2022-02-13 00:00 | temperature_metric | 36.83 | C | | | | | | + + + +---------+ | 2022-02-13 00:00 | | 98.3 | F | | | temperature_standar | | | | | d | | | + + + +---------+ | 2022-02-13 00:00 | weight_metric | 45.81 | kg | + + + +---------+ | 2022-02-13 00:00 | weight_standard | 101 | lb | + + + +---------+ | 2022-02-17 00:00 | BMI | 19.6 | kg/m2 | + + + +---------+ | 2022-02-17 00:00 | BP_diastolic | 96 | mmHg | + + + +---------+ | 2022-02-17 00:00 | BP_systolic | 138 | mmHg | + + + +---------+ | 2022-02-17 00:00 | heart_rate | 101 | /min | + + + +---------+ | 2022-02-17 00:00 | height_metric | 149.86 | cm | + + + +---------+ | 2022-02-17 00:00 | height_standard | 59 | in | + + + +---------+ | 2022-02-17 00:00 | o2_saturation | 100 | % | + + + +---------+ | 2022-02-17 00:00 | respiration_rate | 16 | /min | + + + +---------+ | 2022-02-17 00:00 | temperature_metric | 36.72 | C | | | | | | + + + +---------+ | 2022-02-17 00:00 | | 98.1 | F | | | temperature_standar | | | | | d | | | + + + +---------+ | 2022-02-17 00:00 | weight_metric | 44.1 | kg | + + + +---------+ | 2022-02-17 00:00 | weight_standard | 97.22 | lb | + + + +---------+ | 2022-02-17 00:00 | weight_standard | 97.23 | lb | + + + +---------+ | 2022-03-04 00:00 | BMI | 19.6 | kg/m2 | + + + +---------+ | 2022-03-04 00:00 | BP_diastolic | 101 | mmHg | + + + +---------+ | 2022-03-04 00:00 | BP_systolic | 145 | mmHg | + + + +---------+ | 2022-03-04 00:00 | heart_rate | 97 | /min | + + + +---------+ | 2022-03-04 00:00 | height_metric | 149.86 | cm | + + + +---------+ | 2022-03-04 00:00 | height_standard | 59 | in | + + + +---------+ | 2022-03-04 00:00 | o2_saturation | 98 | % | + + + +---------+ | 2022-03-04 00:00 | respiration_rate | 16 | /min | + + + +---------+ | 2022-03-04 00:00 | temperature_metric | 36.83 | C | | | | | | + + + +---------+ | 2022-03-04 00:00 | | 98.3 | F | | | temperature_standar | | | | | d | | | + + + +---------+ | 2022-03-04 00:00 | weight_metric | 44.08 | kg | + + + +---------+ | 2022-03-04 00:00 | weight_standard | 97.18 | lb | + + + +---------+ | 2022-03-04 00:00 | weight_standard | 97.19 | lb | + + + +---------+ | 2022-03-07 00:00 | BMI | 19.1 | kg/m2 | + + + +---------+ | 2022-03-07 00:00 | BP_diastolic | 101 | mmHg | + + + +---------+ | 2022-03-07 00:00 | BP_systolic | 144 | mmHg | + + + +---------+ | 2022-03-07 00:00 | heart_rate | 89 | /min | + + + +---------+ | 2022-03-07 00:00 | height_metric | 149.86 | cm | + + + +---------+ | 2022-03-07 00:00 | height_standard | 59 | in | + + + +---------+ | 2022-03-07 00:00 | o2_saturation | 94 | % | + + + +---------+ | 2022-03-07 00:00 | respiration_rate | 19 | /min | + + + +---------+ | 2022-03-07 00:00 | temperature_metric | 36.89 | C | | | | | | + + + +---------+ | 2022-03-07 00:00 | | 98.4 | F | | | temperature_standar | | | | | d | | | + + + +---------+ | 2022-03-07 00:00 | weight_metric | 43 | kg | + + + +---------+ | 2022-03-07 00:00 | weight_standard | 94.8 | lb | + + + +---------+ | 2022-03-12 00:00 | BMI | 19.6 | kg/m2 | + + + +---------+ | 2022-03-12 00:00 | BP_diastolic | 93 | mmHg | + + + +---------+ | 2022-03-12 00:00 | BP_systolic | 137 | mmHg | + + + +---------+ | 2022-03-12 00:00 | heart_rate | 91 | /min | + + + +---------+ | 2022-03-12 00:00 | height_metric | 149.86 | cm | + + + +---------+ | 2022-03-12 00:00 | height_standard | 59 | in | + + + +---------+ | 2022-03-12 00:00 | o2_saturation | 100 | % | + + + +---------+ | 2022-03-12 00:00 | respiration_rate | 18 | /min | + + + +---------+ | 2022-03-12 00:00 | temperature_metric | 36.72 | C | | | | | | + + + +---------+ | 2022-03-12 00:00 | | 98.1 | F | | | temperature_standar | | | | | d | | | + + + +---------+ | 2022-03-12 00:00 | weight_metric | 44 | kg | + + + +---------+ | 2022-03-12 00:00 | weight_standard | 97 | lb | + + + +---------+ | 2022-03-12 00:00 | weight_standard | 97.01 | lb | + + + +---------+ | 2022-03-16 00:00 | BMI | 19.4 | kg/m2 | + + + +---------+ | 2022-03-16 00:00 | height_metric | 149.86 | cm | + + + +---------+ | 2022-03-16 00:00 | height_standard | 59 | in | + + + +---------+ | 2022-03-16 00:00 | weight_metric | 43.5 | kg | + + + +---------+ | 2022-03-16 00:00 | weight_standard | 95.9 | lb | + + + +---------+ | 2022-03-18 00:00 | BP_diastolic | 89 | mmHg | + + + +---------+ | 2022-03-18 00:00 | BP_systolic | 139 | mmHg | + + + +---------+ | 2022-03-18 00:00 | heart_rate | 120 | /min | + + + +---------+ | 2022-03-18 00:00 | o2_saturation | 90 | % | + + + +---------+ | 2022-03-18 00:00 | respiration_rate | 20 | /min | + + + +---------+ | 2022-03-18 00:00 | temperature_metric | 36.67 | C | | | | | | + + + +---------+ | 2022-03-18 00:00 | | 98 | F | | | temperature_standar | | | | | d | | | + + + +---------+ | 2022-03-19 00:00 | BMI | 22.0 | kg/m2 | + + + +---------+ | 2022-03-19 00:00 | height_metric | 149.86 | cm | + + + +---------+ | 2022-03-19 00:00 | height_standard | 59 | in | + + + +---------+ | 2022-03-19 00:00 | weight_metric | 49.4 | kg | + + + +---------+ | 2022-03-19 00:00 | weight_standard | 108.91 | lb | + + + +---------+ | 2022-03-22 00:00 | BP_diastolic | 83 | mmHg | + + + +---------+ | 2022-03-22 00:00 | BP_systolic | 120 | mmHg | + + + +---------+ | 2022-03-22 00:00 | heart_rate | 93 | /min | + + + +---------+ | 2022-03-22 00:00 | o2_saturation | 98 | % | + + + +---------+ | 2022-03-22 00:00 | respiration_rate | 16 | /min | + + + +---------+ | 2022-03-22 00:00 | temperature_metric | 36.67 | C | | | | | | + + + +---------+ | 2022-03-22 00:00 | | 98 | F | | | temperature_standar | | | | | d | | | + + + +---------+ | 2022-03-26 00:00 | BMI | 21.8 | kg/m2 | + + + +---------+ | 2022-03-26 00:00 | BP_diastolic | 94 | mmHg | + + + +---------+ | 2022-03-26 00:00 | BP_systolic | 131 | mmHg | + + + +---------+ | 2022-03-26 00:00 | heart_rate | 89 | /min | + + + +---------+ | 2022-03-26 00:00 | height_metric | 149.86 | cm | + + + +---------+ | 2022-03-26 00:00 | height_standard | 59 | in | + + + +---------+ | 2022-03-26 00:00 | o2_saturation | 96 | % | + + + +---------+ | 2022-03-26 00:00 | respiration_rate | 16 | /min | + + + +---------+ | 2022-03-26 00:00 | temperature_metric | 36.83 | C | | | | | | + + + +---------+ | 2022-03-26 00:00 | | 98.3 | F | | | temperature_standar | | | | | d | | | + + + +---------+ | 2022-03-26 00:00 | weight_metric | 48.99 | kg | + + + +---------+ | 2022-03-26 00:00 | weight_standard | 108 | lb | + + + +---------+ | 2022-05-22 00:00 | BMI | 18.7 | kg/m2 | + + + +---------+ | 2022-05-22 00:00 | height_metric | 149.86 | cm | + + + +---------+ | 2022-05-22 00:00 | height_standard | 59 | in | + + + +---------+ | 2022-05-22 00:00 | weight_metric | 42 | kg | + + + +---------+ | 2022-05-22 00:00 | weight_standard | 92.59 | lb | + + + +---------+ | 2022-05-23 00:00 | BP_diastolic | 87 | mmHg | + + + +---------+ | 2022-05-23 00:00 | BP_systolic | 118 | mmHg | + + + +---------+ | 2022-05-23 00:00 | heart_rate | 81 | /min | + + + +---------+ | 2022-05-23 00:00 | o2_saturation | 99 | % | + + + +---------+ | 2022-05-23 00:00 | respiration_rate | 23 | /min | + + + +---------+ | 2022-05-23 00:00 | temperature_metric | 37.17 | C | | | | | | + + + +---------+ | 2022-05-23 00:00 | | 98.9 | F | | | temperature_standar | | | | | d | | | + + + +---------+ | 2022-05-26 00:00 | BMI | 18.6 | kg/m2 | + + + +---------+ | 2022-05-26 00:00 | BP_diastolic | 112 | mmHg | + + + +---------+ | 2022-05-26 00:00 | BP_systolic | 153 | mmHg | + + + +---------+ | 2022-05-26 00:00 | heart_rate | 99 | /min | + + + +---------+ | 2022-05-26 00:00 | height_metric | 149.86 | cm | + + + +---------+ | 2022-05-26 00:00 | height_standard | 59 | in | + + + +---------+ | 2022-05-26 00:00 | o2_saturation | 100 | % | + + + +---------+ | 2022-05-26 00:00 | respiration_rate | 17 | /min | + + + +---------+ | 2022-05-26 00:00 | temperature_metric | 36.89 | C | | | | | | + + + +---------+ | 2022-05-26 00:00 | | 98.4 | F | | | temperature_standar | | | | | d | | | + + + +---------+ | 2022-05-26 00:00 | weight_metric | 41.73 | kg | + + + +---------+ | 2022-05-26 00:00 | weight_standard | 92 | lb | + + + +---------+ | 2022-06-18 00:00 | BMI | 18.7 | kg/m2 | + + + +---------+ | 2022-06-18 00:00 | BP_diastolic | 97 | mmHg | + + + +---------+ | 2022-06-18 00:00 | BP_systolic | 130 | mmHg | + + + +---------+ | 2022-06-18 00:00 | heart_rate | 115 | /min | + + + +---------+ | 2022-06-18 00:00 | height_metric | 149.86 | cm | + + + +---------+ | 2022-06-18 00:00 | height_standard | 59 | in | + + + +---------+ | 2022-06-18 00:00 | o2_saturation | 100 | % | + + + +---------+ | 2022-06-18 00:00 | respiration_rate | 20 | /min | + + + +---------+ | 2022-06-18 00:00 | temperature_metric | 36.72 | C | | | | | | + + + +---------+ | 2022-06-18 00:00 | | 98.1 | F | | | temperature_standar | | | | | d | | | + + + +---------+ | 2022-06-18 00:00 | weight_metric | 42 | kg | + + + +---------+ | 2022-06-18 00:00 | weight_standard | 92.59 | lb | + + + +---------+ | 2022-06-21 00:00 | BMI | 19.4 | kg/m2 | + + + +---------+ | 2022-06-21 00:00 | height_metric | 149.86 | cm | + + + +---------+ | 2022-06-21 00:00 | height_standard | 59 | in | + + + +---------+ | 2022-06-21 00:00 | weight_metric | 43.6 | kg | + + + +---------+ | 2022-06-21 00:00 | weight_standard | 96.12 | lb | + + + +---------+ | 2022-06-22 00:00 | BP_diastolic | 97 | mmHg | + + + +---------+ | 2022-06-22 00:00 | BP_systolic | 144 | mmHg | + + + +---------+ | 2022-06-22 00:00 | heart_rate | 97 | /min | + + + +---------+ | 2022-06-22 00:00 | o2_saturation | 100 | % | + + + +---------+ | 2022-06-22 00:00 | respiration_rate | 17 | /min | + + + +---------+ | 2022-06-22 00:00 | temperature_metric | 36.61 | C | | | | | | + + + +---------+ | 2022-06-22 00:00 | | 97.9 | F | | | temperature_standar | | | | | d | | | + + + +---------+ | 2022-07-03 00:00 | BMI | 19.1 | kg/m2 | + + + +---------+ | 2022-07-03 00:00 | BP_diastolic | 112 | mmHg | + + + +---------+ | 2022-07-03 00:00 | BP_systolic | 165 | mmHg | + + + +---------+ | 2022-07-03 00:00 | heart_rate | 94 | /min | + + + +---------+ | 2022-07-03 00:00 | height_metric | 149.86 | cm | + + + +---------+ | 2022-07-03 00:00 | height_standard | 59 | in | + + + +---------+ | 2022-07-03 00:00 | o2_saturation | 98 | % | + + + +---------+ | 2022-07-03 00:00 | respiration_rate | 16 | /min | + + + +---------+ | 2022-07-03 00:00 | temperature_metric | 37 | C | | | | | | + + + +---------+ | 2022-07-03 00:00 | | 98.6 | F | | | temperature_standar | | | | | d | | | + + + +---------+ | 2022-07-03 00:00 | weight_metric | 42.89 | kg | + + + +---------+ | 2022-07-03 00:00 | weight_standard | 94.56 | lb | + + + +---------+ | 2022-07-08 00:00 | BP_diastolic | 00 | mmHg | + + + +---------+ | 2022-07-08 00:00 | BP_systolic | 00 | mmHg | + + + +---------+ | 2022-07-08 00:00 | heart_rate | 0 | /min | + + + +---------+ | 2022-07-08 00:00 | o2_saturation | 0 | % | + + + +---------+ | 2022-07-08 00:00 | respiration_rate | 0 | /min | + + + +---------+ | 2022-07-08 00:00 | temperature_metric | -17.78 | C | | | | | | + + + +---------+ | 2022-07-08 00:00 | | 0 | F | | | temperature_standar | | | | | d | | | + + + +---------+ | 2022-07-27 00:00 | BMI | 19.1 | kg/m2 | + + + +---------+ | 2022-07-27 00:00 | BP_diastolic | 00 | mmHg | + + + +---------+ | 2022-07-27 00:00 | BP_systolic | 163 | mmHg | + + + +---------+ | 2022-07-27 00:00 | heart_rate | 94 | /min | + + + +---------+ | 2022-07-27 00:00 | height_metric | 149.86 | cm | + + + +---------+ | 2022-07-27 00:00 | height_standard | 59 | in | + + + +---------+ | 2022-07-27 00:00 | o2_saturation | 98 | % | + + + +---------+ | 2022-07-27 00:00 | respiration_rate | 14 | /min | + + + +---------+ | 2022-07-27 00:00 | temperature_metric | 36.89 | C | | | | | | + + + +---------+ | 2022-07-27 00:00 | | 98.4 | F | | | temperature_standar | | | | | d | | | + + + +---------+ | 2022-07-27 00:00 | weight_metric | 42.89 | kg | + + + +---------+ | 2022-07-27 00:00 | weight_standard | 94.56 | lb | + + + +---------+ | 2022-07-29 00:00 | BMI | 17.9 | kg/m2 | + + + +---------+ | 2022-07-29 00:00 | BP_diastolic | 104 | mmHg | + + + +---------+ | 2022-07-29 00:00 | BP_systolic | 144 | mmHg | + + + +---------+ | 2022-07-29 00:00 | heart_rate | 96 | /min | + + + +---------+ | 2022-07-29 00:00 | height_metric | 149.86 | cm | + + + +---------+ | 2022-07-29 00:00 | height_standard | 59 | in | + + + +---------+ | 2022-07-29 00:00 | o2_saturation | 98 | % | + + + +---------+ | 2022-07-29 00:00 | respiration_rate | 14 | /min | + + + +---------+ | 2022-07-29 00:00 | temperature_metric | 36.5 | C | | | | | | + + + +---------+ | 2022-07-29 00:00 | | 97.7 | F | | | temperature_standar | | | | | d | | | + + + +---------+ | 2022-07-29 00:00 | weight_metric | 40.1 | kg | + + + +---------+ | 2022-07-29 00:00 | weight_standard | 88.41 | lb | + + + +---------+ | 2022-08-03 00:00 | BMI | 19.4 | kg/m2 | + + + +---------+ | 2022-08-03 00:00 | BP_diastolic | 98 | mmHg | + + + +---------+ | 2022-08-03 00:00 | BP_systolic | 124 | mmHg | + + + +---------+ | 2022-08-03 00:00 | heart_rate | 100 | /min | + + + +---------+ | 2022-08-03 00:00 | height_metric | 149.86 | cm | + + + +---------+ | 2022-08-03 00:00 | height_standard | 59 | in | + + + +---------+ | 2022-08-03 00:00 | o2_saturation | 99 | % | + + + +---------+ | 2022-08-03 00:00 | respiration_rate | 18 | /min | + + + +---------+ | 2022-08-03 00:00 | temperature_metric | 36.89 | C | | | | | | + + + +---------+ | 2022-08-03 00:00 | | 98.4 | F | | | temperature_standar | | | | | d | | | + + + +---------+ | 2022-08-03 00:00 | weight_metric | 43.5 | kg | + + + +---------+ | 2022-08-03 00:00 | weight_standard | 95.9 | lb | + + + +---------+ | 2022-08-17 00:00 | BMI | 19.0 | kg/m2 | + + + +---------+ | 2022-08-17 00:00 | BP_diastolic | 91 | mmHg | + + + +---------+ | 2022-08-17 00:00 | BP_systolic | 136 | mmHg | + + + +---------+ | 2022-08-17 00:00 | heart_rate | 107 | /min | + + + +---------+ | 2022-08-17 00:00 | height_metric | 149.86 | cm | + + + +---------+ | 2022-08-17 00:00 | height_standard | 59 | in | + + + +---------+ | 2022-08-17 00:00 | o2_saturation | 100 | % | + + + +---------+ | 2022-08-17 00:00 | respiration_rate | 16 | /min | + + + +---------+ | 2022-08-17 00:00 | temperature_metric | 35.94 | C | | | | | | + + + +---------+ | 2022-08-17 00:00 | | 96.7 | F | | | temperature_standar | | | | | d | | | + + + +---------+ | 2022-08-17 00:00 | weight_metric | 42.64 | kg | + + + +---------+ | 2022-08-17 00:00 | weight_standard | 94 | lb | + + + +---------+ | 2022-09-14 00:00 | BMI | 19.2 | kg/m2 | + + + +---------+ | 2022-09-14 00:00 | BP_diastolic | 103 | mmHg | + + + +---------+ | 2022-09-14 00:00 | BP_systolic | 157 | mmHg | + + + +---------+ | 2022-09-14 00:00 | heart_rate | 88 | /min | + + + +---------+ | 2022-09-14 00:00 | height_metric | 149.86 | cm | + + + +---------+ | 2022-09-14 00:00 | height_standard | 59 | in | + + + +---------+ | 2022-09-14 00:00 | o2_saturation | 98 | % | + + + +---------+ | 2022-09-14 00:00 | respiration_rate | 19 | /min | + + + +---------+ | 2022-09-14 00:00 | temperature_metric | 37.17 | C | | | | | | + + + +---------+ | 2022-09-14 00:00 | | 98.9 | F | | | temperature_standar | | | | | d | | | + + + +---------+ | 2022-09-14 00:00 | weight_metric | 43.03 | kg | + + + +---------+ | 2022-09-14 00:00 | weight_metric | 43.04 | kg | + + + +---------+ | 2022-09-14 00:00 | weight_standard | 94.86 | lb | + + + +---------+ | 2022-09-14 00:00 | weight_standard | 94.88 | lb | + + + +---------+ | 2022-09-22 00:00 | BMI | 18.9 | kg/m2 | + + + +---------+ | 2022-09-22 00:00 | height_metric | 149.86 | cm | + + + +---------+ | 2022-09-22 00:00 | height_standard | 59 | in | + + + +---------+ | 2022-09-22 00:00 | weight_metric | 42.5 | kg | + + + +---------+ | 2022-09-22 00:00 | weight_standard | 93.69 | lb | + + + +---------+ | 2022-09-22 00:00 | weight_standard | 93.7 | lb | + + + +---------+ | 2022-09-23 00:00 | BP_diastolic | 110 | mmHg | + + + +---------+ | 2022-09-23 00:00 | BP_systolic | 166 | mmHg | + + + +---------+ | 2022-09-23 00:00 | heart_rate | 95 | /min | + + + +---------+ | 2022-09-23 00:00 | o2_saturation | 100 | % | + + + +---------+ | 2022-09-23 00:00 | respiration_rate | 16 | /min | + + + +---------+ | 2022-09-23 00:00 | temperature_metric | 36.89 | C | | | | | | + + + +---------+ | 2022-09-23 00:00 | | 98.4 | F | | | temperature_standar | | | | | d | | | + + + +---------+ | 2022-10-06 00:00 | BMI | 18.9 | kg/m2 | + + + +---------+ | 2022-10-06 00:00 | BP_diastolic | 104 | mmHg | + + + +---------+ | 2022-10-06 00:00 | BP_systolic | 145 | mmHg | + + + +---------+ | 2022-10-06 00:00 | heart_rate | 79 | /min | + + + +---------+ | 2022-10-06 00:00 | height_metric | 149.86 | cm | + + + +---------+ | 2022-10-06 00:00 | height_standard | 59 | in | + + + +---------+ | 2022-10-06 00:00 | o2_saturation | 100 | % | + + + +---------+ | 2022-10-06 00:00 | respiration_rate | 16 | /min | + + + +---------+ | 2022-10-06 00:00 | temperature_metric | 36.5 | C | | | | | | + + + +---------+ | 2022-10-06 00:00 | | 97.7 | F | | | temperature_standar | | | | | d | | | + + + +---------+ | 2022-10-06 00:00 | weight_metric | 42.5 | kg | + + + +---------+ | 2022-10-06 00:00 | weight_standard | 93.69 | lb | + + + +---------+ | 2022-10-06 00:00 | weight_standard | 93.7 | lb | + + + +---------+ | 2022-10-10 00:00 | BMI | 18.9 | kg/m2 | + + + +---------+ | 2022-10-10 00:00 | height_metric | 149.86 | cm | + + + +---------+ | 2022-10-10 00:00 | height_standard | 59 | in | + + + +---------+ | 2022-10-10 00:00 | weight_metric | 42.5 | kg | + + + +---------+ | 2022-10-10 00:00 | weight_standard | 93.69 | lb | + + + +---------+ | 2022-10-10 00:00 | weight_standard | 93.7 | lb | + + + +---------+ | 2022-10-11 00:00 | BP_diastolic | 110 | mmHg | + + + +---------+ | 2022-10-11 00:00 | BP_systolic | 169 | mmHg | + + + +---------+ | 2022-10-11 00:00 | heart_rate | 84 | /min | + + + +---------+ | 2022-10-11 00:00 | o2_saturation | 100 | % | + + + +---------+ | 2022-10-11 00:00 | respiration_rate | 22 | /min | + + + +---------+ | 2022-10-11 00:00 | temperature_metric | 36.39 | C | | | | | | + + + +---------+ | 2022-10-11 00:00 | | 97.5 | F | | | temperature_standar | | | | | d | | | + + + +---------+ | 2022-10-30 00:00 | BMI | 19.0 | kg/m2 | + + + +---------+ | 2022-10-30 00:00 | BP_diastolic | 82 | mmHg | + + + +---------+ | 2022-10-30 00:00 | BP_systolic | 118 | mmHg | + + + +---------+ | 2022-10-30 00:00 | heart_rate | 94 | /min | + + + +---------+ | 2022-10-30 00:00 | height_metric | 149.86 | cm | + + + +---------+ | 2022-10-30 00:00 | height_standard | 59 | in | + + + +---------+ | 2022-10-30 00:00 | o2_saturation | 97 | % | + + + +---------+ | 2022-10-30 00:00 | respiration_rate | 12 | /min | + + + +---------+ | 2022-10-30 00:00 | temperature_metric | 36.67 | C | | | | | | + + + +---------+ | 2022-10-30 00:00 | | 98 | F | | | temperature_standar | | | | | d | | | + + + +---------+ | 2022-10-30 00:00 | weight_metric | 42.6 | kg | + + + +---------+ | 2022-10-30 00:00 | weight_standard | 93.92 | lb | + + + +---------+ | 2022-11-24 00:00 | BMI | 18.8 | kg/m2 | + + + +---------+ | 2022-11-24 00:00 | BP_diastolic | 102 | mmHg | + + + +---------+ | 2022-11-24 00:00 | BP_systolic | 189 | mmHg | + + + +---------+ | 2022-11-24 00:00 | heart_rate | 94 | /min | + + + +---------+ | 2022-11-24 00:00 | height_metric | 149.86 | cm | + + + +---------+ | 2022-11-24 00:00 | height_standard | 59 | in | + + + +---------+ | 2022-11-24 00:00 | o2_saturation | 100 | % | + + + +---------+ | 2022-11-24 00:00 | respiration_rate | 16 | /min | + + + +---------+ | 2022-11-24 00:00 | temperature_metric | 36.78 | C | | | | | | + + + +---------+ | 2022-11-24 00:00 | | 98.2 | F | | | temperature_standar | | | | | d | | | + + + +---------+ | 2022-11-24 00:00 | weight_metric | 42.18 | kg | + + + +---------+ | 2022-11-24 00:00 | weight_standard | 92.99 | lb | + + + +---------+ | 2022-11-24 00:00 | weight_standard | 93 | lb | + + + +---------+ | 2022-12-07 00:00 | BMI | 19.4 | kg/m2 | + + + +---------+ | 2022-12-07 00:00 | height_metric | 149.86 | cm | + + + +---------+ | 2022-12-07 00:00 | height_standard | 59 | in | + + + +---------+ | 2022-12-07 00:00 | weight_metric | 43.6 | kg | + + + +---------+ | 2022-12-07 00:00 | weight_standard | 96.12 | lb | + + + +---------+ | 2022-12-10 00:00 | BP_diastolic | 97 | mmHg | + + + +---------+ | 2022-12-10 00:00 | BP_systolic | 136 | mmHg | + + + +---------+ | 2022-12-10 00:00 | heart_rate | 101 | /min | + + + +---------+ | 2022-12-10 00:00 | o2_saturation | 100 | % | + + + +---------+ | 2022-12-10 00:00 | respiration_rate | 13 | /min | + + + +---------+ | 2022-12-10 00:00 | temperature_metric | 37.22 | C | | | | | | + + + +---------+ | 2022-12-10 00:00 | | 99 | F | | | temperature_standar | | | | | d | | | + + + +---------+ | 2023-01-03 00:00 | BMI | 18.8 | kg/m2 | + + + +---------+ | 2023-01-03 00:00 | BP_diastolic | 97 | mmHg | + + + +---------+ | 2023-01-03 00:00 | BP_systolic | 129 | mmHg | + + + +---------+ | 2023-01-03 00:00 | heart_rate | 110 | /min | + + + +---------+ | 2023-01-03 00:00 | height_metric | 149.86 | cm | + + + +---------+ | 2023-01-03 00:00 | height_standard | 59 | in | + + + +---------+ | 2023-01-03 00:00 | o2_saturation | 100 | % | + + + +---------+ | 2023-01-03 00:00 | respiration_rate | 17 | /min | + + + +---------+ | 2023-01-03 00:00 | temperature_metric | 36.83 | C | | | | | | + + + +---------+ | 2023-01-03 00:00 | | 98.3 | F | | | temperature_standar | | | | | d | | | + + + +---------+ | 2023-01-03 00:00 | weight_metric | 42.2 | kg | + + + +---------+ | 2023-01-03 00:00 | weight_standard | 93.04 | lb | + + + +---------+ | 2023-01-04 00:00 | BMI | 43.8 | kg/m2 | + + + +---------+ | 2023-01-04 00:00 | height_metric | 149.86 | cm | + + + +---------+ | 2023-01-04 00:00 | height_standard | 59 | in | + + + +---------+ | 2023-01-04 00:00 | weight_metric | 98.3 | kg | + + + +---------+ | 2023-01-04 00:00 | weight_standard | 216.71 | lb | + + + +---------+ | 2023-01-05 00:00 | BP_diastolic | 90 | mmHg | + + + +---------+ | 2023-01-05 00:00 | BP_systolic | 127 | mmHg | + + + +---------+ | 2023-01-05 00:00 | heart_rate | 123 | /min | + + + +---------+ | 2023-01-05 00:00 | o2_saturation | 93 | % | + + + +---------+ | 2023-01-05 00:00 | respiration_rate | 16 | /min | + + + +---------+ | 2023-01-05 00:00 | temperature_metric | 37.11 | C | | | | | | + + + +---------+ | 2023-01-05 00:00 | | 98.8 | F | | | temperature_standar | | | | | d | | | + + + +---------+ | 2023-01-20 00:00 | BMI | 18.5 | kg/m2 | + + + +---------+ | 2023-01-20 00:00 | height_metric | 149.86 | cm | + + + +---------+ | 2023-01-20 00:00 | height_standard | 59 | in | + + + +---------+ | 2023-01-20 00:00 | weight_metric | 41.6 | kg | + + + +---------+ | 2023-01-20 00:00 | weight_standard | 91.71 | lb | + + + +---------+ | 2023-01-21 00:00 | BP_diastolic | 96 | mmHg | + + + +---------+ | 2023-01-21 00:00 | BP_systolic | 139 | mmHg | + + + +---------+ | 2023-01-21 00:00 | heart_rate | 91 | /min | + + + +---------+ | 2023-01-21 00:00 | o2_saturation | 100 | % | + + + +---------+ | 2023-01-21 00:00 | respiration_rate | 20 | /min | + + + +---------+ | 2023-01-21 00:00 | temperature_metric | 36.83 | C | | | | | | + + + +---------+ | 2023-01-21 00:00 | | 98.3 | F | | | temperature_standar | | | | | d | | | + + + +---------+ | 2023-01-26 00:00 | BMI | 18.6 | kg/m2 | + + + +---------+ | 2023-01-26 00:00 | height_metric | 149.86 | cm | + + + +---------+ | 2023-01-26 00:00 | height_standard | 59 | in | + + + +---------+ | 2023-01-26 00:00 | weight_metric | 41.7 | kg | + + + +---------+ | 2023-01-26 00:00 | weight_standard | 91.93 | lb | + + + +---------+ | 2023-01-27 00:00 | BP_diastolic | 100 | mmHg | + + + +---------+ | 2023-01-27 00:00 | BP_systolic | 146 | mmHg | + + + +---------+ | 2023-01-27 00:00 | heart_rate | 92 | /min | + + + +---------+ | 2023-01-27 00:00 | o2_saturation | 95 | % | + + + +---------+ | 2023-01-27 00:00 | respiration_rate | 16 | /min | + + + +---------+ | 2023-01-27 00:00 | temperature_metric | 37.11 | C | | | | | | + + + +---------+ | 2023-01-27 00:00 | | 98.8 | F | | | temperature_standar | | | | | d | | | + + + +---------+ | 2023-02-02 00:00 | BMI | 18.6 | kg/m2 | + + + +---------+ | 2023-02-02 00:00 | BP_diastolic | 102 | mmHg | + + + +---------+ | 2023-02-02 00:00 | BP_systolic | 146 | mmHg | + + + +---------+ | 2023-02-02 00:00 | heart_rate | 98 | /min | + + + +---------+ | 2023-02-02 00:00 | height_metric | 149.86 | cm | + + + +---------+ | 2023-02-02 00:00 | height_standard | 59 | in | + + + +---------+ | 2023-02-02 00:00 | o2_saturation | 100 | % | + + + +---------+ | 2023-02-02 00:00 | respiration_rate | 16 | /min | + + + +---------+ | 2023-02-02 00:00 | temperature_metric | 36.89 | C | | | | | | + + + +---------+ | 2023-02-02 00:00 | | 98.4 | F | | | temperature_standar | | | | | d | | | + + + +---------+ | 2023-02-02 00:00 | weight_metric | 41.67 | kg | + + + +---------+ | 2023-02-02 00:00 | weight_metric | 41.68 | kg | + + + +---------+ | 2023-02-02 00:00 | weight_standard | 91.87 | lb | + + + +---------+ | 2023-02-02 00:00 | weight_standard | 91.88 | lb | + + + +---------+ | 2023-02-11 00:00 | BMI | 19.0 | kg/m2 | + + + +---------+ | 2023-02-11 00:00 | BP_diastolic | 104 | mmHg | + + + +---------+ | 2023-02-11 00:00 | BP_systolic | 180 | mmHg | + + + +---------+ | 2023-02-11 00:00 | heart_rate | 106 | /min | + + + +---------+ | 2023-02-11 00:00 | height_metric | 149.86 | cm | + + + +---------+ | 2023-02-11 00:00 | height_standard | 59 | in | + + + +---------+ | 2023-02-11 00:00 | o2_saturation | 98 | % | + + + +---------+ | 2023-02-11 00:00 | respiration_rate | 16 | /min | + + + +---------+ | 2023-02-11 00:00 | temperature_metric | 36.67 | C | | | | | | + + + +---------+ | 2023-02-11 00:00 | | 98 | F | | | temperature_standar | | | | | d | | | + + + +---------+ | 2023-02-11 00:00 | weight_metric | 42.7 | kg | + + + +---------+ | 2023-02-11 00:00 | weight_standard | 94.14 | lb | + + + +---------+ | 2023-02-23 00:00 | BMI | 19.2 | kg/m2 | + + + +---------+ | 2023-02-23 00:00 | BP_diastolic | 97 | mmHg | + + + +---------+ | 2023-02-23 00:00 | BP_systolic | 145 | mmHg | + + + +---------+ | 2023-02-23 00:00 | heart_rate | 95 | /min | + + + +---------+ | 2023-02-23 00:00 | height_metric | 149.86 | cm | + + + +---------+ | 2023-02-23 00:00 | height_standard | 59 | in | + + + +---------+ | 2023-02-23 00:00 | o2_saturation | 96 | % | + + + +---------+ | 2023-02-23 00:00 | respiration_rate | 15 | /min | + + + +---------+ | 2023-02-23 00:00 | temperature_metric | 36.78 | C | | | | | | + + + +---------+ | 2023-02-23 00:00 | | 98.2 | F | | | temperature_standar | | | | | d | | | + + + +---------+ | 2023-02-23 00:00 | weight_metric | 43.09 | kg | + + + +---------+ | 2023-02-23 00:00 | weight_standard | 95 | lb | + + + +---------+ | 2023-03-04 00:00 | BMI | 18.3 | kg/m2 | + + + +---------+ | 2023-03-04 00:00 | height_metric | 149.86 | cm | + + + +---------+ | 2023-03-04 00:00 | height_standard | 59 | in | + + + +---------+ | 2023-03-04 00:00 | weight_metric | 41 | kg | + + + +---------+ | 2023-03-04 00:00 | weight_standard | 90.39 | lb | + + + +---------+ | 2023-03-05 00:00 | BP_diastolic | 96 | mmHg | + + + +---------+ | 2023-03-05 00:00 | BP_systolic | 136 | mmHg | + + + +---------+ | 2023-03-05 00:00 | heart_rate | 87 | /min | + + + +---------+ | 2023-03-05 00:00 | o2_saturation | 98 | % | + + + +---------+ | 2023-03-05 00:00 | respiration_rate | 16 | /min | + + + +---------+ | 2023-03-05 00:00 | temperature_metric | 36.39 | C | | | | | | + + + +---------+ | 2023-03-05 00:00 | | 97.5 | F | | | temperature_standar | | | | | d | | | + + + +---------+ | 2023-03-12 00:00 | BMI | 18.0 | kg/m2 | + + + +---------+ | 2023-03-12 00:00 | BP_diastolic | 77 | mmHg | + + + +---------+ | 2023-03-12 00:00 | BP_systolic | 129 | mmHg | + + + +---------+ | 2023-03-12 00:00 | heart_rate | 100 | /min | + + + +---------+ | 2023-03-12 00:00 | height_metric | 149.86 | cm | + + + +---------+ | 2023-03-12 00:00 | height_standard | 59 | in | + + + +---------+ | 2023-03-12 00:00 | o2_saturation | 100 | % | + + + +---------+ | 2023-03-12 00:00 | respiration_rate | 18 | /min | + + + +---------+ | 2023-03-12 00:00 | temperature_metric | 36.94 | C | | | | | | + + + +---------+ | 2023-03-12 00:00 | | 98.5 | F | | | temperature_standar | | | | | d | | | + + + +---------+ | 2023-03-12 00:00 | weight_metric | 40.37 | kg | + + + +---------+ | 2023-03-12 00:00 | weight_standard | 89 | lb | + + + +---------+ | 2023-03-20 00:00 | BMI | 18.2 | kg/m2 | + + + +---------+ | 2023-03-20 00:00 | BP_diastolic | 91 | mmHg | + + + +---------+ | 2023-03-20 00:00 | BP_systolic | 129 | mmHg | + + + +---------+ | 2023-03-20 00:00 | heart_rate | 106 | /min | + + + +---------+ | 2023-03-20 00:00 | height_metric | 149.86 | cm | + + + +---------+ | 2023-03-20 00:00 | height_standard | 59 | in | + + + +---------+ | 2023-03-20 00:00 | o2_saturation | 96 | % | + + + +---------+ | 2023-03-20 00:00 | respiration_rate | 12 | /min | + + + +---------+ | 2023-03-20 00:00 | temperature_metric | 36.61 | C | | | | | | + + + +---------+ | 2023-03-20 00:00 | | 97.9 | F | | | temperature_standar | | | | | d | | | + + + +---------+ | 2023-03-20 00:00 | weight_metric | 40.9 | kg | + + + +---------+ | 2023-03-20 00:00 | weight_standard | 90.17 | lb | + + + +---------+ | 2023-04-08 00:00 | BMI | 18.4 | kg/m2 | + + + +---------+ | 2023-04-08 00:00 | BP_diastolic | 100 | mmHg | + + + +---------+ | 2023-04-08 00:00 | BP_systolic | 148 | mmHg | + + + +---------+ | 2023-04-08 00:00 | heart_rate | 107 | /min | + + + +---------+ | 2023-04-08 00:00 | height_metric | 149.86 | cm | + + + +---------+ | 2023-04-08 00:00 | height_standard | 59 | in | + + + +---------+ | 2023-04-08 00:00 | o2_saturation | 99 | % | + + + +---------+ | 2023-04-08 00:00 | respiration_rate | 16 | /min | + + + +---------+ | 2023-04-08 00:00 | temperature_metric | 36.61 | C | | | | | | + + + +---------+ | 2023-04-08 00:00 | | 97.9 | F | | | temperature_standar | | | | | d | | | + + + +---------+ | 2023-04-08 00:00 | weight_metric | 41.28 | kg | + + + +---------+ | 2023-04-08 00:00 | weight_standard | 91 | lb | + + + +---------+ | 2023-04-08 00:00 | weight_standard | 91.01 | lb | + + + +---------+ | 2023-04-09 00:00 | BMI | 19.6 | kg/m2 | + + + +---------+ | 2023-04-09 00:00 | BP_diastolic | 94 | mmHg | + + + +---------+ | 2023-04-09 00:00 | BP_systolic | 130 | mmHg | + + + +---------+ | 2023-04-09 00:00 | heart_rate | 92 | /min | + + + +---------+ | 2023-04-09 00:00 | height_metric | 149.86 | cm | + + + +---------+ | 2023-04-09 00:00 | height_standard | 59 | in | + + + +---------+ | 2023-04-09 00:00 | o2_saturation | 100 | % | + + + +---------+ | 2023-04-09 00:00 | respiration_rate | 16 | /min | + + + +---------+ | 2023-04-09 00:00 | temperature_metric | 36.72 | C | | | | | | + + + +---------+ | 2023-04-09 00:00 | | 98.1 | F | | | temperature_standar | | | | | d | | | + + + +---------+ | 2023-04-09 00:00 | weight_metric | 44 | kg | + + + +---------+ | 2023-04-09 00:00 | weight_standard | 97 | lb | + + + +---------+ | 2023-04-22 00:00 | BMI | 18.6 | kg/m2 | + + + +---------+ | 2023-04-22 00:00 | height_metric | 149.86 | cm | + + + +---------+ | 2023-04-22 00:00 | height_standard | 59 | in | + + + +---------+ | 2023-04-22 00:00 | weight_metric | 41.7 | kg | + + + +---------+ | 2023-04-22 00:00 | weight_standard | 91.93 | lb | + + + +---------+ | 2023-04-23 00:00 | BP_diastolic | 87 | mmHg | + + + +---------+ | 2023-04-23 00:00 | BP_systolic | 132 | mmHg | + + + +---------+ | 2023-04-23 00:00 | heart_rate | 103 | /min | + + + +---------+ | 2023-04-23 00:00 | o2_saturation | 99 | % | + + + +---------+ | 2023-04-23 00:00 | respiration_rate | 16 | /min | + + + +---------+ | 2023-04-23 00:00 | temperature_metric | 37.33 | C | | | | | | + + + +---------+ | 2023-04-23 00:00 | | 99.2 | F | | | temperature_standar | | | | | d | | | + + + +---------+ | 2023-05-05 00:00 | BMI | 18.1 | kg/m2 | + + + +---------+ | 2023-05-05 00:00 | BP_diastolic | 106 | mmHg | + + + +---------+ | 2023-05-05 00:00 | BP_systolic | 136 | mmHg | + + + +---------+ | 2023-05-05 00:00 | heart_rate | 97 | /min | + + + +---------+ | 2023-05-05 00:00 | height_metric | 149.86 | cm | + + + +---------+ | 2023-05-05 00:00 | height_standard | 59 | in | + + + +---------+ | 2023-05-05 00:00 | o2_saturation | 99 | % | + + + +---------+ | 2023-05-05 00:00 | respiration_rate | 16 | /min | + + + +---------+ | 2023-05-05 00:00 | temperature_metric | 36.78 | C | | | | | | + + + +---------+ | 2023-05-05 00:00 | | 98.2 | F | | | temperature_standar | | | | | d | | | + + + +---------+ | 2023-05-05 00:00 | weight_metric | 40.6 | kg | + + + +---------+ | 2023-05-05 00:00 | weight_standard | 89.51 | lb | + + + +---------+"
--- OUTSIDE RECORDS SUMMARY | ~2023-05-07 | XMS | Continuity of Care Document ---
Demographics + + + | Address | [address] | | | [place] [address] | + + + | Preferred Language | Unknown | + + + | Marital Status | | + + + | Protestant Affiliation | Unknown | + + + | Race | or | + + + | Ethnic Group | Not or | + + + Author + + + | Author | [facility] | + + + | Organization | [facility] | + + + | Address | [address] [place] [address] | | | [place] [address] | + + + | Phone | | + + + Care Team Providers + + + + | Care Can Closing Machine Tender Name | Role | Phone | + [...] 2022-03-22 00:00 | No vaccine administered | [facility] | + + + + Medications + + + + | date | description | facility | + + + + | 2021-01-18 00:00 | FAMOTIDINE | [facility] | + + + + | 2021-01-18 00:00 | FAMOTIDINE | [facility] | + + + + | 2022-03-22 00:00 | FAMOTIDINE | [facility] | + + + + | 2022-03-23 00:00 | FAMOTIDINE | [facility] | + + + + | 2022-03-25 00:00 | FAMOTIDINE | [facility] | + + + + | 2022-03-27 00:00 | FAMOTIDINE | [facility] | + + + + | 2022-03-28 00:00 | FAMOTIDINE | [facility] | + + + + | 2022-05-23 00:00 | FAMOTIDINE | [facility] | + + + + | 2022-06-18 00:00 | FAMOTIDINE | [facility] | + + + + | 2022-06-22 00:00 | FAMOTIDINE | [facility] | + + + + | 2022-07-03 00:00 | FAMOTIDINE | [facility] | + + + + | 2022-07-08 00:00 | FAMOTIDINE | [facility] | + + + + | 2022-07-29 00:00 | FAMOTIDINE | [facility] | + + + + | 2022-08-03 00:00 | FAMOTIDINE | [facility] | + + + + | 2022-08-05 00:00 | FAMOTIDINE | [facility] | + + + + | 2022-08-17 00:00 | FAMOTIDINE | [facility] | + + + + | 2022-09-14 00:00 | FAMOTIDINE | [facility] | + + + + | 2022-09-23 00:00 | FAMOTIDINE | [facility] | + + + + | 2022-10-08 00:00 | FAMOTIDINE | [facility] | + + + + | 2022-10-11 00:00 | FAMOTIDINE | [facility] | + + + + | 2022-10-30 00:00 | FAMOTIDINE | [facility] | + + + + | 2022-11-24 00:00 | FAMOTIDINE | [facility] | + + + + | 2022-12-10 00:00 | FAMOTIDINE | [facility] | + + + + | 2023-01-03 00:00 | FAMOTIDINE | [facility] | + + + + | 2023-01-05 00:00 | FAMOTIDINE | [facility] | + + + + | 2023-01-21 00:00 | FAMOTIDINE | [facility] | + + + + | 2023-01-27 00:00 | FAMOTIDINE | [facility] | + + + + | 2023-02-02 00:00 | FAMOTIDINE | [facility] | + + + + | 2023-02-11 00:00 | FAMOTIDINE | [facility] | + + + + | 2023-02-23 00:00 | FAMOTIDINE | [facility] | + + + + | 2023-03-05 00:00 | FAMOTIDINE | [facility] | + + + + | 2023-03-12 00:00 | FAMOTIDINE | [facility] | + + + + | 2023-03-20 00:00 | FAMOTIDINE | [facility] | + + + + | 2023-04-08 00:00 | FAMOTIDINE | [facility] | + + + + | 2023-04-09 00:00 | FAMOTIDINE | [facility] | + + + + | 2023-05-05 00:00 | FAMOTIDINE | [facility] | + + + + | 2021-01-18 00:00 | famotidine 20 MG Oral | [facility] | | | Tablet [Pepcid] | | + + + + | 2022-03-22 00:00 | famotidine 20 MG Oral | [facility] | | | Tablet [Pepcid] | | + + + + | 2022-03-07 00:00 | ONDANSETRON | [facility] | + + + + | 2022-07-03 00:00 | ONDANSETRON | [facility] | + + + + | 2022-09-23 00:00 | ONDANSETRON | [facility] | + + + + | 2022-10-06 00:00 | ONDANSETRON | [facility] | + + + + | 2022-03-07 00:00 | ondansetron 4 MG | [facility] | | | Disintegrating Oral Tablet | | + + + + | 2018-10-19 00:00 | ONDANSETRON HCL | [facility] | + + + + | 2018-10-19 00:00 | ONDANSETRON HCL | [facility] | + + + + | 2021-01-18 00:00 | ONDANSETRON HCL | [facility] | + + + + | 2021-01-18 00:00 | ONDANSETRON HCL | [facility] | + + + + | 2022-03-23 00:00 | ONDANSETRON HCL | [facility] | + + + + | 2022-03-25 00:00 | ONDANSETRON HCL | [facility] | + + + + | 2022-03-27 00:00 | ONDANSETRON HCL | [facility] | + + + + | 2022-03-28 00:00 | ONDANSETRON HCL | [facility] | + + + + | 2022-06-18 00:00 | ONDANSETRON HCL | [facility] | + + + + | 2022-06-22 00:00 | ONDANSETRON HCL | [facility] | + + + + | 2022-07-03 00:00 | ONDANSETRON HCL | [facility] | + + + + | 2022-07-08 00:00 | ONDANSETRON HCL | [facility] | + + + + | 2022-07-29 00:00 | ONDANSETRON HCL | [facility] | + + + + | 2022-08-03 00:00 | ONDANSETRON HCL | [facility] | + + + + | 2022-08-05 00:00 | ONDANSETRON HCL | [facility] | + + + + | 2022-08-17 00:00 | ONDANSETRON HCL | [facility] | + + + + | 2022-09-14 00:00 | ONDANSETRON HCL | [facility] | + + + + | 2022-09-23 00:00 | ONDANSETRON HCL | [facility] | + + + + | 2022-10-08 00:00 | ONDANSETRON HCL | [facility] | + + + + | 2022-10-11 00:00 | ONDANSETRON HCL | [facility] | + + + + | 2022-10-30 00:00 | ONDANSETRON HCL | [facility] | + + + + | 2022-11-24 00:00 | ONDANSETRON HCL | [facility] | + + + + | 2022-12-10 00:00 | ONDANSETRON HCL | [facility] | + + + + | 2023-01-03 00:00 | ONDANSETRON HCL | [facility] | + + + + | 2023-01-05 00:00 | ONDANSETRON HCL | [facility] | + + + + | 2023-01-21 00:00 | ONDANSETRON HCL | [facility] | + + + + | 2023-01-27 00:00 | ONDANSETRON HCL | [facility] | + + + + | 2023-02-02 00:00 | ONDANSETRON HCL | [facility] | + + + + | 2023-02-11 00:00 | ONDANSETRON HCL | [facility] | + + + + | 2023-02-23 00:00 | ONDANSETRON HCL | [facility] | + + + + | 2023-03-05 00:00 | ONDANSETRON HCL | [facility] | + + + + | 2023-03-12 00:00 | ONDANSETRON HCL | [facility] | + + + + | 2023-03-20 00:00 | ONDANSETRON HCL | [facility] | + + + + | 2023-04-08 00:00 | ONDANSETRON HCL | [facility] | + + + + | 2023-04-09 00:00 | ONDANSETRON HCL | [facility] | + + + + | 2023-05-05 00:00 | ONDANSETRON HCL | [facility] | + + + + | 2018-10-19 00:00 | ondansetron 4 MG Oral | [facility] | | | Tablet [Zofran] | | + + + + | 2021-01-18 00:00 | ondansetron 4 MG Oral | [facility] | | | Tablet [Zofran] | | + + + + | 2022-03-22 00:00 | ondansetron 4 MG Oral | [facility] | | | Tablet [Zofran] | | + + + + | 2022-03-18 00:00 | OXYCODONE HCL | [facility] | + + + + | 2022-03-18 00:00 | oxycodone hydrochloride 5 | [facility] | | | MG Oral Tablet | | + + + + | 2022-07-03 00:00 | NAPROXEN | [facility] | + + + + | 2022-07-03 00:00 | NAPROXEN | [facility] | + + + + | 2023-05-05 00:00 | PHENAZOPYRIDINE HCL | [facility] | + + + + | 2021-03-01 00:00 | PHENAZOPYRIDINE HCL | [facility] | + + + + | 2021-03-01 00:00 | PHENAZOPYRIDINE HCL | [facility] | + + + + | 2021-07-14 00:00 | PHENAZOPYRIDINE HCL | [facility] | + + + + | 2021-07-14 00:00 | PHENAZOPYRIDINE HCL | [facility] | + + + + | 2021-03-01 00:00 | phenazopyridine | [facility] | | | hydrochloride 200 MG Oral | | | | Tablet [Pyridium] | | + + + + | 2021-07-14 00:00 | phenazopyridine | [facility] | | | hydrochloride 200 MG Oral | | | | Tablet [Pyridium] | | + + + + | 2022-03-22 00:00 | Gosper-Linyah 28 Day Pack | [facility] | + + + + | 2022-03-23 00:00 | NORGESTIMATE-ETHINYL | [facility] | | | ESTRADIOL | | + + + + | 2022-03-25 00:00 | NORGESTIMATE-ETHINYL | [facility] | | | ESTRADIOL | | + + + + | 2022-03-27 00:00 | NORGESTIMATE-ETHINYL | [facility] | | | ESTRADIOL | | + + + + | 2022-03-28 00:00 | NORGESTIMATE-ETHINYL | [facility] | | | ESTRADIOL | | + + + + | 2022-06-18 00:00 | NORGESTIMATE-ETHINYL | [facility] | | | ESTRADIOL | | + + + + | 2022-06-22 00:00 | NORGESTIMATE-ETHINYL | [facility] | | | ESTRADIOL | | + + + + | 2022-07-03 00:00 | NORGESTIMATE-ETHINYL | [facility] | | | ESTRADIOL | | + + + + | 2022-07-08 00:00 | NORGESTIMATE-ETHINYL | [facility] | | | ESTRADIOL | | + + + + | 2022-07-29 00:00 | NORGESTIMATE-ETHINYL | [facility] | | | ESTRADIOL | | + + + + | 2022-08-03 00:00 | NORGESTIMATE-ETHINYL | [facility] | | | ESTRADIOL | | + + + + | 2022-08-05 00:00 | NORGESTIMATE-ETHINYL | [facility] | | | ESTRADIOL | | + + + + | 2022-08-17 00:00 | NORGESTIMATE-ETHINYL | [facility] | | | ESTRADIOL | | + + + + | 2022-09-14 00:00 | NORGESTIMATE-ETHINYL | [facility] | | | ESTRADIOL | | + + + + | 2022-09-23 00:00 | NORGESTIMATE-ETHINYL | [facility] | | | ESTRADIOL | | + + + + | 2022-10-08 00:00 | NORGESTIMATE-ETHINYL | [facility] | | | ESTRADIOL | | + + + + | 2022-10-11 00:00 | NORGESTIMATE-ETHINYL | [facility] | | | ESTRADIOL | | + + + + | 2022-10-30 00:00 | NORGESTIMATE-ETHINYL | [facility] | | | ESTRADIOL | | + + + + | 2022-11-24 00:00 | NORGESTIMATE-ETHINYL | [facility] | | | ESTRADIOL | | + + + + | 2022-12-10 00:00 | NORGESTIMATE-ETHINYL | [facility] | | | ESTRADIOL | | + + + + | 2023-01-03 00:00 | NORGESTIMATE-ETHINYL | [facility] | | | ESTRADIOL | | + + + + | 2023-01-05 00:00 | NORGESTIMATE-ETHINYL | [facility] | | | ESTRADIOL | | + + + + | 2023-01-21 00:00 | NORGESTIMATE-ETHINYL | [facility] | | | ESTRADIOL | | + + + + | 2023-01-27 00:00 | NORGESTIMATE-ETHINYL | [facility] | | | ESTRADIOL | | + + + + | 2023-02-02 00:00 | NORGESTIMATE-ETHINYL | [facility] | | | ESTRADIOL | | + + + + | 2023-02-11 00:00 | NORGESTIMATE-ETHINYL | [facility] | | | ESTRADIOL | | + + + + | 2023-02-23 00:00 | NORGESTIMATE-ETHINYL | [facility] | | | ESTRADIOL | | + + + + | 2023-03-05 00:00 | NORGESTIMATE-ETHINYL | [facility] | | | ESTRADIOL | | + + + + | 2023-03-12 00:00 | NORGESTIMATE-ETHINYL | [facility] | | | ESTRADIOL | | + + + + | 2023-03-20 00:00 | NORGESTIMATE-ETHINYL | [facility] | | | ESTRADIOL | | + + + + | 2023-04-08 00:00 | NORGESTIMATE-ETHINYL | [facility] | | | ESTRADIOL | | + + + + | 2023-04-09 00:00 | NORGESTIMATE-ETHINYL | [facility] | | | ESTRADIOL | | + + + + | 2023-05-05 00:00 | NORGESTIMATE-ETHINYL | [facility] | | | ESTRADIOL | | + + + + | 2022-03-23 00:00 | ERGOCALCIFEROL (VITAMIN | [facility] | | | D2) | | + + + + | 2022-03-25 00:00 | ERGOCALCIFEROL (VITAMIN | [facility] | | | D2) | | + + + + | 2022-03-27 00:00 | ERGOCALCIFEROL (VITAMIN | [facility] | | | D2) | | + + + + | 2022-03-28 00:00 | ERGOCALCIFEROL (VITAMIN | [facility] | | | D2) | | + + + + | 2022-06-18 00:00 | ERGOCALCIFEROL (VITAMIN | [facility] | | | D2) | | + + + + | 2022-06-22 00:00 | ERGOCALCIFEROL (VITAMIN | [facility] | | | D2) | | + + + + | 2022-07-03 00:00 | ERGOCALCIFEROL (VITAMIN | [facility] | | | D2) | | + + + + | 2022-07-08 00:00 | ERGOCALCIFEROL (VITAMIN | [facility] | | | D2) | | + + + + | 2022-07-29 00:00 | ERGOCALCIFEROL (VITAMIN | [facility] | | | D2) | | + + + + | 2022-08-03 00:00 | ERGOCALCIFEROL (VITAMIN | [facility] | | | D2) | | + + + + | 2022-08-05 00:00 | ERGOCALCIFEROL (VITAMIN | [facility] | | | D2) | | + + + + | 2022-08-17 00:00 | ERGOCALCIFEROL (VITAMIN | [facility] | | | D2) | | + + + + | 2022-09-14 00:00 | ERGOCALCIFEROL (VITAMIN | [facility] | | | D2) | | + + + + | 2022-09-23 00:00 | ERGOCALCIFEROL (VITAMIN | [facility] | | | D2) | | + + + + | 2022-10-08 00:00 | ERGOCALCIFEROL (VITAMIN | [facility] | | | D2) | | + + + + | 2022-10-11 00:00 | ERGOCALCIFEROL (VITAMIN | [facility] | | | D2) | | + + + + | 2022-10-30 00:00 | ERGOCALCIFEROL (VITAMIN | [facility] | | | D2) | | + + + + | 2022-11-24 00:00 | ERGOCALCIFEROL (VITAMIN | [facility] | | | D2) | | + + + + | 2022-12-10 00:00 | ERGOCALCIFEROL (VITAMIN | [facility] | | | D2) | | + + + + | 2023-01-03 00:00 | ERGOCALCIFEROL (VITAMIN | [facility] | | | D2) | | + + + + | 2023-01-05 00:00 | ERGOCALCIFEROL (VITAMIN | [facility] | | | D2) | | + + + + | 2023-01-21 00:00 | ERGOCALCIFEROL (VITAMIN | [facility] | | | D2) | | + + + + | 2023-01-27 00:00 | ERGOCALCIFEROL (VITAMIN | [facility] | | | D2) | | + + + + | 2023-02-02 00:00 | ERGOCALCIFEROL (VITAMIN | [facility] | | | D2) | | + + + + | 2023-02-11 00:00 | ERGOCALCIFEROL (VITAMIN | [facility] | | | D2) | | + + + + | 2023-02-23 00:00 | ERGOCALCIFEROL (VITAMIN | [facility] | | | D2) | | + + + + | 2023-03-05 00:00 | ERGOCALCIFEROL (VITAMIN | [facility] | | | D2) | | + + + + | 2023-03-12 00:00 | ERGOCALCIFEROL (VITAMIN | [facility] | | | D2) | | + + + + | 2023-03-20 00:00 | ERGOCALCIFEROL (VITAMIN | [facility] | | | D2) | | + + + + | 2023-04-08 00:00 | ERGOCALCIFEROL (VITAMIN | [facility] | | | D2) | | + + + + | 2023-04-09 00:00 | ERGOCALCIFEROL (VITAMIN | [facility] | | | D2) | | + + + + | 2023-05-05 00:00 | ERGOCALCIFEROL (VITAMIN | [facility] | | | D2) | | + + + + | 2022-03-22 00:00 | Ergocalciferol (Vitamin | [facility] | | | D2) | | + + + + | 2022-03-22 00:00 | ergocalciferol 1.25 MG | [facility] | | | Oral Capsule | | + + + + | 2022-03-22 00:00 | Mesalamine | [facility] | + + + + | 2022-03-22 00:00 | mesalamine 400 MG Delayed | [facility] | | | Release Oral Capsule | | | | [Delzicol] | | + + + + | 2023-03-12 00:00 | DOXYCYCLINE HYCLATE | [facility] | + + + + | 2023-03-12 00:00 | DOXYCYCLINE HYCLATE | [facility] | + + + + | 2022-08-03 00:00 | INSULIN LISPRO | [facility] | + + + + | 2022-08-03 00:00 | INSULIN LISPRO | [facility] | + + + + | 2022-06-22 00:00 | Insulin Lispro | [facility] | + + + + | 2022-07-03 00:00 | Insulin Lispro | [facility] | + + + + | 2022-07-08 00:00 | Insulin Lispro | [facility] | + + + + | 2022-07-29 00:00 | Insulin Lispro | [facility] | + + + + | 2022-08-03 00:00 | Insulin Lispro | [facility] | + + + + | 2022-08-05 00:00 | Insulin Lispro | [facility] | + + + + | 2023-05-05 00:00 | Insulin Lispro | [facility] | + + + + | 2022-03-22 00:00 | 3 ML insulin lispro 100 | [facility] | | | UNT/ML Pen Injector | | | | [Humalog] | | + + + + | 2022-03-23 00:00 | INSULIN LISPRO | [facility] | + + + + | 2022-03-25 00:00 | INSULIN LISPRO | [facility] | + + + + | 2022-03-27 00:00 | INSULIN LISPRO | [facility] | + + + + | 2022-03-28 00:00 | INSULIN LISPRO | [facility] | + + + + | 2022-06-18 00:00 | INSULIN LISPRO | [facility] | + + + + | 2022-03-22 00:00 | 3 ML insulin aspart, human | [facility] | | | 100 UNT/ML Pen Injector | | | | [NovoLog] | | + + + + | 2022-03-23 00:00 | INSULIN ASPART | [facility] | + + + + | 2022-03-25 00:00 | INSULIN ASPART | [facility] | + + + + | 2022-03-27 00:00 | INSULIN ASPART | [facility] | + + + + | 2022-03-28 00:00 | INSULIN ASPART | [facility] | + + + + | 2022-06-18 00:00 | INSULIN ASPART | [facility] | + + + + | 2022-06-22 00:00 | INSULIN ASPART | [facility] | + + + + | 2022-07-03 00:00 | INSULIN ASPART | [facility] | + + + + | 2022-07-08 00:00 | INSULIN ASPART | [facility] | + + + + | 2022-07-29 00:00 | INSULIN ASPART | [facility] | + + + + | 2022-08-03 00:00 | INSULIN ASPART | [facility] | + + + + | 2022-08-05 00:00 | INSULIN ASPART | [facility] | + + + + | 2022-08-17 00:00 | INSULIN ASPART | [facility] | + + + + | 2022-09-14 00:00 | INSULIN ASPART | [facility] | + + + + | 2022-09-23 00:00 | INSULIN ASPART | [facility] | + + + + | 2022-10-08 00:00 | INSULIN ASPART | [facility] | + + + + | 2022-10-11 00:00 | INSULIN ASPART | [facility] | + + + + | 2022-10-30 00:00 | INSULIN ASPART | [facility] | + + + + | 2022-11-24 00:00 | INSULIN ASPART | [facility] | + + + + | 2022-12-10 00:00 | INSULIN ASPART | [facility] | + + + + | 2023-01-03 00:00 | INSULIN ASPART | [facility] | + + + + | 2023-01-05 00:00 | INSULIN ASPART | [facility] | + + + + | 2023-01-21 00:00 | INSULIN ASPART | [facility] | + + + + | 2023-01-27 00:00 | INSULIN ASPART | [facility] | + + + + | 2023-02-02 00:00 | INSULIN ASPART | [facility] | + + + + | 2023-02-11 00:00 | INSULIN ASPART | [facility] | + + + + | 2023-02-23 00:00 | INSULIN ASPART | [facility] | + + + + | 2023-03-05 00:00 | INSULIN ASPART | [facility] | + + + + | 2023-03-12 00:00 | INSULIN ASPART | [facility] | + + + + | 2023-03-20 00:00 | INSULIN ASPART | [facility] | + + + + | 2023-04-08 00:00 | INSULIN ASPART | [facility] | + + + + | 2023-04-09 00:00 | INSULIN ASPART | [facility] | + + + + | 2023-05-05 00:00 | INSULIN ASPART | [facility] | + + + + | 2023-01-21 00:00 | CEPHALEXIN | [facility] | + + + + | 2022-03-23 00:00 | ESTRADIOL | [facility] | + + + + | 2022-03-25 00:00 | ESTRADIOL | [facility] | + + + + | 2022-03-27 00:00 | ESTRADIOL | [facility] | + + + + | 2022-03-28 00:00 | ESTRADIOL | [facility] | + + + + | 2022-06-18 00:00 | ESTRADIOL | [facility] | + + + + | 2022-06-22 00:00 | ESTRADIOL | [facility] | + + + + | 2022-07-03 00:00 | ESTRADIOL | [facility] | + + + + | 2022-07-08 00:00 | ESTRADIOL | [facility] | + + + + | 2022-07-29 00:00 | ESTRADIOL | [facility] | + + + + | 2022-08-03 00:00 | ESTRADIOL | [facility] | + + + + | 2022-08-05 00:00 | ESTRADIOL | [facility] | + + + + | 2022-08-17 00:00 | ESTRADIOL | [facility] | + + + + | 2022-09-14 00:00 | ESTRADIOL | [facility] | + + + + | 2022-09-23 00:00 | ESTRADIOL | [facility] | + + + + | 2022-10-08 00:00 | ESTRADIOL | [facility] | + + + + | 2022-10-11 00:00 | ESTRADIOL | [facility] | + + + + | 2022-10-30 00:00 | ESTRADIOL | [facility] | + + + + | 2022-11-24 00:00 | ESTRADIOL | [facility] | + + + + | 2022-12-10 00:00 | ESTRADIOL | [facility] | + + + + | 2023-01-03 00:00 | ESTRADIOL | [facility] | + + + + | 2023-01-05 00:00 | ESTRADIOL | [facility] | + + + + | 2023-01-21 00:00 | ESTRADIOL | [facility] | + + + + | 2023-01-27 00:00 | ESTRADIOL | [facility] | + + + + | 2023-02-02 00:00 | ESTRADIOL | [facility] | + + + + | 2023-02-11 00:00 | ESTRADIOL | [facility] | + + + + | 2023-02-23 00:00 | ESTRADIOL | [facility] | + + + + | 2023-03-05 00:00 | ESTRADIOL | [facility] | + + + + | 2023-03-12 00:00 | ESTRADIOL | [facility] | + + + + | 2023-03-20 00:00 | ESTRADIOL | [facility] | + + + + | 2023-04-08 00:00 | ESTRADIOL | [facility] | + + + + | 2023-04-09 00:00 | ESTRADIOL | [facility] | + + + + | 2023-05-05 00:00 | ESTRADIOL | [facility] | + + + + | 2022-03-22 00:00 | estradiol 2 MG Oral Tablet | [facility] | | | | | + + + + | 2022-10-08 00:00 | NAPROXEN | [facility] | + + + + | 2021-07-31 00:00 | OMEPRAZOLE | [facility] | + + + + | 2021-07-31 00:00 | OMEPRAZOLE | [facility] | + + + + | 2021-07-31 00:00 | omeprazole 20 MG Delayed | [facility] | | | Release Oral Capsule | | + + + + | 2023-03-12 00:00 | ONDANSETRON HCL | [facility] | + + + + | 2023-03-12 00:00 | ONDANSETRON HCL | [facility] | + + + + | 2022-06-22 00:00 | CEFDINIR | [facility] | + + + + | 2022-06-22 00:00 | CEFDINIR | [facility] | + + + + | 2022-09-14 00:00 | Metoprolol Succinate | [facility] | + + + + | 2022-09-23 00:00 | Metoprolol Succinate | [facility] | + + + + | 2022-10-08 00:00 | Metoprolol Succinate | [facility] | + + + + | 2022-10-11 00:00 | Metoprolol Succinate | [facility] | + + + + | 2022-10-30 00:00 | Metoprolol Succinate | [facility] | + + + + | 2022-11-24 00:00 | Metoprolol Succinate | [facility] | + + + + | 2022-12-10 00:00 | Metoprolol Succinate | [facility] | + + + + | 2023-01-03 00:00 | Metoprolol Succinate | [facility] | + + + + | 2023-01-05 00:00 | Metoprolol Succinate | [facility] | + + + + | 2023-01-21 00:00 | Metoprolol Succinate | [facility] | + + + + | 2023-01-27 00:00 | Metoprolol Succinate | [facility] | + + + + | 2023-02-02 00:00 | Metoprolol Succinate | [facility] | + + + + | 2023-02-11 00:00 | Metoprolol Succinate | [facility] | + + + + | 2023-02-23 00:00 | Metoprolol Succinate | [facility] | + + + + | 2023-03-05 00:00 | Metoprolol Succinate | [facility] | + + + + | 2023-03-12 00:00 | Metoprolol Succinate | [facility] | + + + + | 2023-03-20 00:00 | Metoprolol Succinate | [facility] | + + + + | 2023-04-08 00:00 | Metoprolol Succinate | [facility] | + + + + | 2023-04-09 00:00 | Metoprolol Succinate | [facility] | + + + + | 2022-03-23 00:00 | ESTRADIOL | [facility] | + + + + | 2022-03-25 00:00 | ESTRADIOL | [facility] | + + + + | 2022-03-27 00:00 | ESTRADIOL | [facility] | + + + + | 2022-03-28 00:00 | ESTRADIOL | [facility] | + + + + | 2022-06-18 00:00 | ESTRADIOL | [facility] | + + + + | 2022-06-22 00:00 | ESTRADIOL | [facility] | + + + + | 2022-07-03 00:00 | ESTRADIOL | [facility] | + + + + | 2022-07-08 00:00 | ESTRADIOL | [facility] | + + + + | 2022-07-29 00:00 | ESTRADIOL | [facility] | + + + + | 2022-08-03 00:00 | ESTRADIOL | [facility] | + + + + | 2022-08-05 00:00 | ESTRADIOL | [facility] | + + + + | 2022-08-17 00:00 | ESTRADIOL | [facility] | + + + + | 2022-09-14 00:00 | ESTRADIOL | [facility] | + + + + | 2022-09-23 00:00 | ESTRADIOL | [facility] | + + + + | 2022-10-08 00:00 | ESTRADIOL | [facility] | + + + + | 2022-10-11 00:00 | ESTRADIOL | [facility] | + + + + | 2022-10-30 00:00 | ESTRADIOL | [facility] | + + + + | 2022-11-24 00:00 | ESTRADIOL | [facility] | + + + + | 2022-12-10 00:00 | ESTRADIOL | [facility] | + + + + | 2023-01-03 00:00 | ESTRADIOL | [facility] | + + + + | 2023-01-05 00:00 | ESTRADIOL | [facility] | + + + + | 2023-01-21 00:00 | ESTRADIOL | [facility] | + + + + | 2023-01-27 00:00 | ESTRADIOL | [facility] | + + + + | 2023-02-02 00:00 | ESTRADIOL | [facility] | + + + + | 2023-02-11 00:00 | ESTRADIOL | [facility] | + + + + | 2023-02-23 00:00 | ESTRADIOL | [facility] | + + + + | 2023-03-05 00:00 | ESTRADIOL | [facility] | + + + + | 2023-03-12 00:00 | ESTRADIOL | [facility] | + + + + | 2023-03-20 00:00 | ESTRADIOL | [facility] | + + + + | 2023-04-08 00:00 | ESTRADIOL | [facility] | + + + + | 2023-04-09 00:00 | ESTRADIOL | [facility] | + + + + | 2023-05-05 00:00 | ESTRADIOL | [facility] | + + + + | 2022-03-22 00:00 | estradiol 1 MG Oral Tablet | [facility] | | | [Estrace] | | + + + + | 2022-10-06 00:00 | FLUCONAZOLE | [facility] | + + + + | 2021-07-31 00:00 | METOCLOPRAMIDE HCL | [facility] | + + + + | 2021-07-31 00:00 | METOCLOPRAMIDE HCL | [facility] | + + + + | 2021-07-31 00:00 | metoclopramide 10 MG Oral | [facility] | | | Tablet [Reglan] | | + + + + | 2022-06-22 00:00 | Cholecalciferol (Vitamin | [facility] | | | D3) | | + + + + | 2022-07-03 00:00 | Cholecalciferol (Vitamin | [facility] | | | D3) | | + + + + | 2022-07-08 00:00 | Cholecalciferol (Vitamin | [facility] | | | D3) | | + + + + | 2022-07-29 00:00 | Cholecalciferol (Vitamin | [facility] | | | D3) | | + + + + | 2022-08-03 00:00 | Cholecalciferol (Vitamin | [facility] | | | D3) | | + + + + | 2022-08-05 00:00 | Cholecalciferol (Vitamin | [facility] | | | D3) | | + + + + | 2022-03-23 00:00 | ASCORBIC ACID | [facility] | + + + + | 2022-03-25 00:00 | ASCORBIC ACID | [facility] | + + + + | 2022-03-27 00:00 | ASCORBIC ACID | [facility] | + + + + | 2022-03-28 00:00 | ASCORBIC ACID | [facility] | + + + + | 2022-06-18 00:00 | ASCORBIC ACID | [facility] | + + + + | 2022-06-22 00:00 | ASCORBIC ACID | [facility] | + + + + | 2022-07-03 00:00 | ASCORBIC ACID | [facility] | + + + + | 2022-07-08 00:00 | ASCORBIC ACID | [facility] | + + + + | 2022-07-29 00:00 | ASCORBIC ACID | [facility] | + + + + | 2022-08-03 00:00 | ASCORBIC ACID | [facility] | + + + + | 2022-08-05 00:00 | ASCORBIC ACID | [facility] | + + + + | 2022-08-17 00:00 | ASCORBIC ACID | [facility] | + + + + | 2022-09-14 00:00 | ASCORBIC ACID | [facility] | + + + + | 2022-09-23 00:00 | ASCORBIC ACID | [facility] | + + + + | 2022-10-08 00:00 | ASCORBIC ACID | [facility] | + + + + | 2022-10-11 00:00 | ASCORBIC ACID | [facility] | + + + + | 2022-10-30 00:00 | ASCORBIC ACID | [facility] | + + + + | 2022-11-24 00:00 | ASCORBIC ACID | [facility] | + + + + | 2022-12-10 00:00 | ASCORBIC ACID | [facility] | + + + + | 2023-01-03 00:00 | ASCORBIC ACID | [facility] | + + + + | 2023-01-05 00:00 | ASCORBIC ACID | [facility] | + + + + | 2023-01-21 00:00 | ASCORBIC ACID | [facility] | + + + + | 2023-01-27 00:00 | ASCORBIC ACID | [facility] | + + + + | 2023-02-02 00:00 | ASCORBIC ACID | [facility] | + + + + | 2023-02-11 00:00 | ASCORBIC ACID | [facility] | + + + + | 2023-02-23 00:00 | ASCORBIC ACID | [facility] | + + + + | 2023-03-05 00:00 | ASCORBIC ACID | [facility] | + + + + | 2023-03-12 00:00 | ASCORBIC ACID | [facility] | + + + + | 2023-03-20 00:00 | ASCORBIC ACID | [facility] | + + + + | 2023-04-08 00:00 | ASCORBIC ACID | [facility] | + + + + | 2023-04-09 00:00 | ASCORBIC ACID | [facility] | + + + + | 2023-05-05 00:00 | ASCORBIC ACID | [facility] | + + + + | 2022-03-22 00:00 | ascorbic acid 500 MG Oral | [facility] | | | Tablet | | + + + + | 2022-03-23 00:00 | AMLODIPINE BESYLATE | [facility] | + + + + | 2022-03-25 00:00 | AMLODIPINE BESYLATE | [facility] | + + + + | 2022-03-27 00:00 | AMLODIPINE BESYLATE | [facility] | + + + + | 2022-03-28 00:00 | AMLODIPINE BESYLATE | [facility] | + + + + | 2022-06-18 00:00 | AMLODIPINE BESYLATE | [facility] | + + + + | 2022-06-22 00:00 | AMLODIPINE BESYLATE | [facility] | + + + + | 2022-07-03 00:00 | AMLODIPINE BESYLATE | [facility] | + + + + | 2022-07-08 00:00 | AMLODIPINE BESYLATE | [facility] | + + + + | 2022-07-29 00:00 | AMLODIPINE BESYLATE | [facility] | + + + + | 2022-08-03 00:00 | AMLODIPINE BESYLATE | [facility] | + + + + | 2022-08-05 00:00 | AMLODIPINE BESYLATE | [facility] | + + + + | 2022-08-17 00:00 | AMLODIPINE BESYLATE | [facility] | + + + + | 2022-09-14 00:00 | AMLODIPINE BESYLATE | [facility] | + + + + | 2022-09-23 00:00 | AMLODIPINE BESYLATE | [facility] | + + + + | 2022-10-08 00:00 | AMLODIPINE BESYLATE | [facility] | + + + + | 2022-10-11 00:00 | AMLODIPINE BESYLATE | [facility] | + + + + | 2022-10-30 00:00 | AMLODIPINE BESYLATE | [facility] | + + + + | 2022-11-24 00:00 | AMLODIPINE BESYLATE | [facility] | + + + + | 2022-12-10 00:00 | AMLODIPINE BESYLATE | [facility] | + + + + | 2023-01-03 00:00 | AMLODIPINE BESYLATE | [facility] | + + + + | 2023-01-05 00:00 | AMLODIPINE BESYLATE | [facility] | + + + + | 2023-01-21 00:00 | AMLODIPINE BESYLATE | [facility] | + + + + | 2023-01-27 00:00 | AMLODIPINE BESYLATE | [facility] | + + + + | 2023-02-02 00:00 | AMLODIPINE BESYLATE | [facility] | + + + + | 2023-02-11 00:00 | AMLODIPINE BESYLATE | [facility] | + + + + | 2023-02-23 00:00 | AMLODIPINE BESYLATE | [facility] | + + + + | 2023-03-05 00:00 | AMLODIPINE BESYLATE | [facility] | + + + + | 2023-03-12 00:00 | AMLODIPINE BESYLATE | [facility] | + + + + | 2023-03-20 00:00 | AMLODIPINE BESYLATE | [facility] | + + + + | 2023-04-08 00:00 | AMLODIPINE BESYLATE | [facility] | + + + + | 2023-04-09 00:00 | AMLODIPINE BESYLATE | [facility] | + + + + | 2023-05-05 00:00 | AMLODIPINE BESYLATE | [facility] | + + + + | 2022-03-22 00:00 | amlodipine 2.5 MG Oral | [facility] | | | Tablet | | + + + + | 2021-03-01 00:00 | CEPHALEXIN | [facility] | + + + + | 2021-03-01 00:00 | CEPHALEXIN | [facility] | + + + + | 2021-07-14 00:00 | CEPHALEXIN | [facility] | + + + + | 2021-07-14 00:00 | CEPHALEXIN | [facility] | + + + + | 2021-10-25 00:00 | CEPHALEXIN | [facility] | + + + + | 2021-10-25 00:00 | CEPHALEXIN | [facility] | + + + + | 2022-02-14 00:00 | CEPHALEXIN | [facility] | + + + + | 2022-02-14 00:00 | CEPHALEXIN | [facility] | + + + + | 2021-03-01 00:00 | cephalexin 500 MG Oral | [facility] | | | Capsule | | + + + + | 2021-07-14 00:00 | cephalexin 500 MG Oral | [facility] | | | Capsule | | + + + + | 2021-10-25 00:00 | cephalexin 500 MG Oral | [facility] | | | Capsule | | + + + + | 2022-02-14 00:00 | cephalexin 500 MG Oral | [facility] | | | Capsule | | + + + + | 2023-05-05 00:00 | FERROUS SULFATE | [facility] | + + + + | 2022-03-22 00:00 | Ferrous Sulfate | [facility] | + + + + | 2022-03-22 00:00 | ferrous sulfate 325 MG | [facility] | | | Oral Tablet | | + + + + | 2022-02-13 00:00 | ONDANSETRON | [facility] | + + + + | 2022-02-13 00:00 | ONDANSETRON | [facility] | + + + + | 2023-01-05 00:00 | ONDANSETRON | [facility] | + + + + | 2023-03-20 00:00 | ONDANSETRON | [facility] | + + + + | 2023-03-20 00:00 | ONDANSETRON | [facility] | + + + + | 2023-05-05 00:00 | ONDANSETRON | [facility] | + + + + | 2022-02-13 00:00 | ondansetron 8 MG | [facility] | | | Disintegrating Oral Tablet | | + + + + | 2022-03-18 00:00 | PROCHLORPERAZINE MALEATE | [facility] | + + + + | 2022-03-18 00:00 | prochlorperazine 5 MG Oral | [facility] | | | Tablet | | + + + + | 2022-03-23 00:00 | ACETAMINOPHEN | [facility] | + + + + | 2022-03-25 00:00 | ACETAMINOPHEN | [facility] | + + + + | 2022-03-27 00:00 | ACETAMINOPHEN | [facility] | + + + + | 2022-03-28 00:00 | ACETAMINOPHEN | [facility] | + + + + | 2022-03-22 00:00 | acetaminophen 325 MG Oral | [facility] | | | Tablet | | + + + + | 2022-03-23 00:00 | LISINOPRIL | [facility] | + + + + | 2022-03-25 00:00 | LISINOPRIL | [facility] | + + + + | 2022-03-27 00:00 | LISINOPRIL | [facility] | + + + + | 2022-03-28 00:00 | LISINOPRIL | [facility] | + + + + | 2022-06-18 00:00 | LISINOPRIL | [facility] | + + + + | 2022-06-22 00:00 | LISINOPRIL | [facility] | + + + + | 2022-07-03 00:00 | LISINOPRIL | [facility] | + + + + | 2022-07-08 00:00 | LISINOPRIL | [facility] | + + + + | 2022-07-29 00:00 | LISINOPRIL | [facility] | + + + + | 2022-08-03 00:00 | LISINOPRIL | [facility] | + + + + | 2022-08-05 00:00 | LISINOPRIL | [facility] | + + + + | 2022-08-17 00:00 | LISINOPRIL | [facility] | + + + + | 2022-09-14 00:00 | LISINOPRIL | [facility] | + + + + | 2022-09-23 00:00 | LISINOPRIL | [facility] | + + + + | 2022-10-08 00:00 | LISINOPRIL | [facility] | + + + + | 2022-10-11 00:00 | LISINOPRIL | [facility] | + + + + | 2022-10-30 00:00 | LISINOPRIL | [facility] | + + + + | 2022-11-24 00:00 | LISINOPRIL | [facility] | + + + + | 2022-12-10 00:00 | LISINOPRIL | [facility] | + + + + | 2023-01-03 00:00 | LISINOPRIL | [facility] | + + + + | 2023-01-05 00:00 | LISINOPRIL | [facility] | + + + + | 2023-01-21 00:00 | LISINOPRIL | [facility] | + + + + | 2023-01-27 00:00 | LISINOPRIL | [facility] | + + + + | 2023-02-02 00:00 | LISINOPRIL | [facility] | + + + + | 2023-02-11 00:00 | LISINOPRIL | [facility] | + + + + | 2023-02-23 00:00 | LISINOPRIL | [facility] | + + + + | 2023-03-05 00:00 | LISINOPRIL | [facility] | + + + + | 2023-03-12 00:00 | LISINOPRIL | [facility] | + + + + | 2023-03-20 00:00 | LISINOPRIL | [facility] | + + + + | 2023-04-08 00:00 | LISINOPRIL | [facility] | + + + + | 2023-04-09 00:00 | LISINOPRIL | [facility] | + + + + | 2023-05-05 00:00 | LISINOPRIL | [facility] | + + + + | 2022-03-22 00:00 | lisinopril 10 MG Oral | [facility] | | | Tablet | | + + + + | 2022-03-22 00:00 | METRONIDAZOLE | [facility] | + + + + | 2022-03-22 00:00 | metronidazole 250 MG Oral | [facility] | | | Tablet | | + + + + | 2022-06-22 00:00 | FENOFIBRATE | [facility] | + + + + | 2022-07-03 00:00 | FENOFIBRATE | [facility] | + + + + | 2022-07-08 00:00 | FENOFIBRATE | [facility] | + + + + | 2022-07-29 00:00 | FENOFIBRATE | [facility] | + + + + | 2022-08-03 00:00 | FENOFIBRATE | [facility] | + + + + | 2022-08-05 00:00 | FENOFIBRATE | [facility] | + + + + | 2022-08-17 00:00 | FENOFIBRATE | [facility] | + + + + | 2022-09-14 00:00 | FENOFIBRATE | [facility] | + + + + | 2022-09-23 00:00 | FENOFIBRATE | [facility] | + + + + | 2022-10-08 00:00 | FENOFIBRATE | [facility] | + + + + | 2022-10-11 00:00 | FENOFIBRATE | [facility] | + + + + | 2022-10-30 00:00 | FENOFIBRATE | [facility] | + + + + | 2022-11-24 00:00 | FENOFIBRATE | [facility] | + + + + | 2022-12-10 00:00 | FENOFIBRATE | [facility] | + + + + | 2023-01-03 00:00 | FENOFIBRATE | [facility] | + + + + | 2023-01-05 00:00 | FENOFIBRATE | [facility] | + + + + | 2023-01-21 00:00 | FENOFIBRATE | [facility] | + + + + | 2023-01-27 00:00 | FENOFIBRATE | [facility] | + + + + | 2023-02-02 00:00 | FENOFIBRATE | [facility] | + + + + | 2023-02-11 00:00 | FENOFIBRATE | [facility] | + + + + | 2023-02-23 00:00 | FENOFIBRATE | [facility] | + + + + | 2023-03-05 00:00 | FENOFIBRATE | [facility] | + + + + | 2023-03-12 00:00 | FENOFIBRATE | [facility] | + + + + | 2023-03-20 00:00 | FENOFIBRATE | [facility] | + + + + | 2023-04-08 00:00 | FENOFIBRATE | [facility] | + + + + | 2023-04-09 00:00 | FENOFIBRATE | [facility] | + + + + | 2022-03-23 00:00 | Fenofibrate | [facility] | | | Nanocrystallized | | + + + + | 2022-03-25 00:00 | Fenofibrate | [facility] | | | Nanocrystallized | | + + + + | 2022-03-27 00:00 | Fenofibrate | [facility] | | | Nanocrystallized | | + + + + | 2022-03-28 00:00 | Fenofibrate | [facility] | | | Nanocrystallized | | + + + + | 2022-06-18 00:00 | Fenofibrate | [facility] | | | Nanocrystallized | | + + + + | 2022-06-22 00:00 | Fenofibrate | [facility] | | | Nanocrystallized | | + + + + | 2022-07-03 00:00 | Fenofibrate | [facility] | | | Nanocrystallized | | + + + + | 2022-07-08 00:00 | Fenofibrate | [facility] | | | Nanocrystallized | | + + + + | 2022-07-29 00:00 | Fenofibrate | [facility] | | | Nanocrystallized | | + + + + | 2022-08-03 00:00 | Fenofibrate | [facility] | | | Nanocrystallized | | + + + + | 2022-08-05 00:00 | Fenofibrate | [facility] | | | Nanocrystallized | | + + + + | 2022-08-17 00:00 | Fenofibrate | [facility] | | | Nanocrystallized | | + + + + | 2022-09-14 00:00 | Fenofibrate | [facility] | | | Nanocrystallized | | + + + + | 2022-09-23 00:00 | Fenofibrate | [facility] | | | Nanocrystallized | | + + + + | 2022-10-08 00:00 | Fenofibrate | [facility] | | | Nanocrystallized | | + + + + | 2022-10-11 00:00 | Fenofibrate | [facility] | | | Nanocrystallized | | + + + + | 2022-10-30 00:00 | Fenofibrate | [facility] | | | Nanocrystallized | | + + + + | 2022-11-24 00:00 | Fenofibrate | [facility] | | | Nanocrystallized | | + + + + | 2022-12-10 00:00 | Fenofibrate | [facility] | | | Nanocrystallized | | + + + + | 2023-01-03 00:00 | Fenofibrate | [facility] | | | Nanocrystallized | | + + + + | 2023-01-05 00:00 | Fenofibrate | [facility] | | | Nanocrystallized | | + + + + | 2023-01-21 00:00 | Fenofibrate | [facility] | | | Nanocrystallized | | + + + + | 2023-01-27 00:00 | Fenofibrate | [facility] | | | Nanocrystallized | | + + + + | 2023-02-02 00:00 | Fenofibrate | [facility] | | | Nanocrystallized | | + + + + | 2023-02-11 00:00 | Fenofibrate | [facility] | | | Nanocrystallized | | + + + + | 2023-02-23 00:00 | Fenofibrate | [facility] | | | Nanocrystallized | | + + + + | 2023-03-05 00:00 | Fenofibrate | [facility] | | | Nanocrystallized | | + + + + | 2023-03-12 00:00 | Fenofibrate | [facility] | | | Nanocrystallized | | + + + + | 2023-03-20 00:00 | Fenofibrate | [facility] | | | Nanocrystallized | | + + + + | 2023-04-08 00:00 | Fenofibrate | [facility] | | | Nanocrystallized | | + + + + | 2023-04-09 00:00 | Fenofibrate | [facility] | | | Nanocrystallized | | + + + + | 2023-05-05 00:00 | Fenofibrate | [facility] | | | Nanocrystallized | | + + + + | 2022-03-22 00:00 | fenofibrate 160 MG Oral | [facility] | | | Tablet | | + + + + | 2023-05-05 00:00 | FENOFIBRATE | [facility] | + + + + | 2016-02-03 00:00 | CIPROFLOXACIN HCL/DEXAMETH | [facility] | | | | | + + + + | 2016-02-03 00:00 | CIPROFLOXACIN HCL/DEXAMETH | [facility] | | | | | + + + + | 2016-02-03 00:00 | ciprofloxacin 3 MG/ML / | [facility] | | | dexamethasone 1 MG/ML Otic | | | | Suspensio | | + + + + | 2022-03-18 00:00 | FENOFIBRATE | [facility] | | | NANOCRYSTALLIZED | | + + + + | 2022-03-18 00:00 | fenofibrate 48 MG Oral | [facility] | | | Tablet | | + + + + | 2022-09-23 00:00 | NITROFURANTOIN MONOHYD | [facility] | | | MACROCR | | + + + + | 2022-03-22 00:00 | 3 ML insulin glargine 100 | [facility] | | | UNT/ML Pen Injector | | | | [Lantus] | | + + + + | 2022-03-23 00:00 | INSULIN | [facility] | | | [facility] | | + + + + | 2022-03-25 00:00 | INSULIN | [facility] | | | GLARDAWOODE,[facility].REC.ANLOG | | + + + + | 2022-03-27 00:00 | INSULIN | [facility] | | | GLARDAWOODE,[facility].REC.ANLOG | | + + + + | 2022-03-28 00:00 | INSULIN | [facility] | | | GLARGINE,HUM.REC.ANLOG | | + + + + | 2022-06-18 00:00 | INSULIN | [facility] | | | GLARGINE,HUM.REC.ANLOG | | + + + + | 2022-06-22 00:00 | INSULIN | [facility] | | | GLARGINE,HUM.REC.ANLOG | | + + + + | 2022-07-03 00:00 | INSULIN | [facility] | | | GLARGINE,HUM.REC.ANLOG | | + + + + | 2022-07-08 00:00 | INSULIN | [facility] | | | GLARGINE,HUM.REC.ANLOG | | + + + + | 2022-07-29 00:00 | INSULIN | [facility] | | | HUM. [place] | | + + + + | 2022-08-03 00:00 | INSULIN | [facility] | | | [place] | | + + + + | 2022-08-05 00:00 | INSULIN | [facility] | | | VIVIANHUM.REC[place]ANLOG | | + + + + | 2022-08-17 00:00 | INSULIN | [facility] | | | GLAALESSIAHUM.REC[place]ANLOG | | + + + + | 2022-09-14 00:00 | INSULIN | [facility] | | | GLARGINE,HUM.REC.ANLOG | | + + + + | 2022-09-23 00:00 | INSULIN | [facility] | | | GLARGINE,HUM.REC.ANLOG | | + + + + | 2022-10-08 00:00 | INSULIN | [facility] | | | GLARGINE,[facility].REC.ANLOG | | + + + + | 2022-10-11 00:00 | INSULIN | [facility] | | | GLARGINE,HUM.REC.ANLOG | | + + + + | 2022-10-30 00:00 | INSULIN | [facility] | | | GLARGINE,HUM.REC.ANLOG | | + + + + | 2022-11-24 00:00 | INSULIN | [facility] | | | GLARGINE,HUM.REC.ANLOG | | + + + + | 2022-12-10 00:00 | INSULIN | [facility] | | | GLARGINE,HUM.REC.ANLOG | | + + + + | 2023-01-03 00:00 | INSULIN | [facility] | | | GLARGINE,HUM.REC.ANLOG | | + + + + | 2023-01-05 00:00 | INSULIN | [facility] | | | GLARGINE,HUM.REC.ANLOG | | + + + + | 2023-01-21 00:00 | INSULIN | [facility] | | | [facility]LOG | | + + + + | 2023-01-27 00:00 | INSULIN | [facility] | | | HUM. [place]LOG | | + + + + | 2023-02-02 00:00 | INSULIN | [facility] | | | HUM. [place] | | + + + + | 2023-02-11 00:00 | INSULIN | [facility] | | | GLAALESSIAHUM.RECOr[place]ANLOG | | + + + + | 2023-02-23 00:00 | INSULIN | [facility] | | | GLARGINE,HUM.REC.ANLOG | | + + + + | 2023-03-05 00:00 | INSULIN | [facility] | | | GLARGINE,HUM.REC.ANLOG | | + + + + | 2023-03-12 00:00 | INSULIN | [facility] | | | GLARGINE,HUM.REC.ANLOG | | + + + + | 2023-03-20 00:00 | INSULIN | [facility] | | | GLARGINE,HUM.REC.ANLOG | | + + + + | 2023-04-08 00:00 | INSULIN | [facility] | | | GLARGINE,HUM.REC.ANLOG | | + + + + | 2023-04-09 00:00 | INSULIN | [facility] | | | GLAALESSIA,HUM.REC.ANLOG | | + + + + | 2023-05-05 00:00 | INSULIN | [facility] | | | GLAFARR[place]HE,HUM.REC.ANLOG | | + + + + | 2022-03-22 00:00 | 3 ML insulin detemir 100 | [facility] | | | UNT/ML Pen Injector | | | | [Levemir] | | + + + + | 2022-03-23 00:00 | INSULIN DETEMIR | [facility] | + + + + | 2022-03-25 00:00 | INSULIN DETEMIR | [facility] | + + + + | 2022-03-27 00:00 | INSULIN DETEMIR | [facility] | + + + + | 2022-03-28 00:00 | INSULIN DETEMIR | [facility] | + + + + | 2022-06-18 00:00 | INSULIN DETEMIR | [facility] | + + + + | 2022-06-22 00:00 | INSULIN DETEMIR | [facility] | + + + + | 2022-07-03 00:00 | INSULIN DETEMIR | [facility] | + + + + | 2022-07-08 00:00 | INSULIN DETEMIR | [facility] | + + + + | 2022-07-29 00:00 | INSULIN DETEMIR | [facility] | + + + + | 2022-08-03 00:00 | INSULIN DETEMIR | [facility] | + + + + | 2022-08-05 00:00 | INSULIN DETEMIR | [facility] | + + + + | 2022-08-17 00:00 | INSULIN DETEMIR | [facility] | + + + + | 2022-09-14 00:00 | INSULIN DETEMIR | [facility] | + + + + | 2022-09-23 00:00 | INSULIN DETEMIR | [facility] | + + + + | 2022-10-08 00:00 | INSULIN DETEMIR | [facility] | + + + + | 2022-10-11 00:00 | INSULIN DETEMIR | [facility] | + + + + | 2022-10-30 00:00 | INSULIN DETEMIR | [facility] | + + + + | 2022-11-24 00:00 | INSULIN DETEMIR | [facility] | + + + + | 2022-12-10 00:00 | INSULIN DETEMIR | [facility] | + + + + | 2023-01-03 00:00 | INSULIN DETEMIR | [facility] | + + + + | 2023-01-05 00:00 | INSULIN DETEMIR | [facility] | + + + + | 2023-01-21 00:00 | INSULIN DETEMIR | [facility] | + + + + | 2023-01-27 00:00 | INSULIN DETEMIR | [facility] | + + + + | 2023-02-02 00:00 | INSULIN DETEMIR | [facility] | + + + + | 2023-02-11 00:00 | INSULIN DETEMIR | [facility] | + + + + | 2023-02-23 00:00 | INSULIN DETEMIR | [facility] | + + + + | 2023-03-05 00:00 | INSULIN DETEMIR | [facility] | + + + + | 2023-03-12 00:00 | INSULIN DETEMIR | [facility] | + + + + | 2023-03-20 00:00 | INSULIN DETEMIR | [facility] | + + + + | 2023-04-08 00:00 | INSULIN DETEMIR | [facility] | + + + + | 2023-04-09 00:00 | INSULIN DETEMIR | [facility] | + + + + | 2023-05-05 00:00 | INSULIN DETEMIR | [facility] | + + + + | 2021-01-22 00:00 | HYDROCODONE | [facility] | | | BIT/ACETAMINOPHEN | | + + + + | 2021-01-22 00:00 | HYDROCODONE | [facility] | | | BIT/ACETAMINOPHEN | | + + + + | 2022-12-10 00:00 | HYDROCODONE | [facility] | | | BIT/ACETAMINOPHEN | | + + + + | 2021-01-22 00:00 | acetaminophen 325 MG / | [facility] | | | hydrocodone bitartrate 5 MG | | | | Oral Tabl | | + + + + | 2022-03-23 00:00 | ROSUVASTATIN CALCIUM | [facility] | + + + + | 2022-03-25 00:00 | ROSUVASTATIN CALCIUM | [facility] | + + + + | 2022-03-27 00:00 | ROSUVASTATIN CALCIUM | [facility] | + + + + | 2022-03-28 00:00 | ROSUVASTATIN CALCIUM | [facility] | + + + + | 2022-06-18 00:00 | ROSUVASTATIN CALCIUM | [facility] | + + + + | 2022-06-22 00:00 | ROSUVASTATIN CALCIUM | [facility] | + + + + | 2022-06-22 00:00 | ROSUVASTATIN CALCIUM | [facility] | + + + + | 2022-07-03 00:00 | ROSUVASTATIN CALCIUM | [facility] | + + + + | 2022-07-08 00:00 | ROSUVASTATIN CALCIUM | [facility] | + + + + | 2022-07-29 00:00 | ROSUVASTATIN CALCIUM | [facility] | + + + + | 2022-08-03 00:00 | ROSUVASTATIN CALCIUM | [facility] | + + + + | 2022-08-05 00:00 | ROSUVASTATIN CALCIUM | [facility] | + + + + | 2022-08-17 00:00 | ROSUVASTATIN CALCIUM | [facility] | + + + + | 2022-09-14 00:00 | ROSUVASTATIN CALCIUM | [facility] | + + + + | 2022-09-23 00:00 | ROSUVASTATIN CALCIUM | [facility] | + + + + | 2022-10-08 00:00 | ROSUVASTATIN CALCIUM | [facility] | + + + + | 2022-10-11 00:00 | ROSUVASTATIN CALCIUM | [facility] | + + + + | 2022-10-30 00:00 | ROSUVASTATIN CALCIUM | [facility] | + + + + | 2022-11-24 00:00 | ROSUVASTATIN CALCIUM | [facility] | + + + + | 2022-12-10 00:00 | ROSUVASTATIN CALCIUM | [facility] | + + + + | 2023-01-03 00:00 | ROSUVASTATIN CALCIUM | [facility] | + + + + | 2023-01-05 00:00 | ROSUVASTATIN CALCIUM | [facility] | + + + + | 2023-01-21 00:00 | ROSUVASTATIN CALCIUM | [facility] | + + + + | 2023-01-27 00:00 | ROSUVASTATIN CALCIUM | [facility] | + + + + | 2023-02-02 00:00 | ROSUVASTATIN CALCIUM | [facility] | + + + + | 2023-02-11 00:00 | ROSUVASTATIN CALCIUM | [facility] | + + + + | 2023-02-23 00:00 | ROSUVASTATIN CALCIUM | [facility] | + + + + | 2023-03-05 00:00 | ROSUVASTATIN CALCIUM | [facility] | + + + + | 2023-03-12 00:00 | ROSUVASTATIN CALCIUM | [facility] | + + + + | 2023-03-20 00:00 | ROSUVASTATIN CALCIUM | [facility] | + + + + | 2023-04-08 00:00 | ROSUVASTATIN CALCIUM | [facility] | + + + + | 2023-04-09 00:00 | ROSUVASTATIN CALCIUM | [facility] | + + + + | 2023-05-05 00:00 | ROSUVASTATIN CALCIUM | [facility] | + + + + | 2022-03-22 00:00 | rosuvastatin calcium 10 MG | [facility] | | | Oral Tablet [Crestor] | | + + + + | 2021-01-22 00:00 | TAMSULOSIN HCL | [facility] | + + + + | 2021-01-22 00:00 | TAMSULOSIN HCL | [facility] | + + + + | 2021-01-22 00:00 | tamsulosin hydrochloride | [facility] | | | 0.4 MG Oral Capsule | | | | [Flomax] | | + + + + | 2022-03-23 00:00 | LIPASE/PROTEASE/AMYLASE | [facility] | + + + + | 2022-03-25 00:00 | LIPASE/PROTEASE/AMYLASE | [facility] | + + + + | 2022-03-27 00:00 | LIPASE/PROTEASE/AMYLASE | [facility] | + + + + | 2022-03-28 00:00 | LIPASE/PROTEASE/AMYLASE | [facility] | + + + + | 2022-06-18 00:00 | LIPASE/PROTEASE/AMYLASE | [facility] | + + + + | 2022-06-22 00:00 | LIPASE/PROTEASE/AMYLASE | [facility] | + + + + | 2022-07-03 00:00 | LIPASE/PROTEASE/AMYLASE | [facility] | + + + + | 2022-07-08 00:00 | LIPASE/PROTEASE/AMYLASE | [facility] | + + + + | 2022-07-29 00:00 | LIPASE/PROTEASE/AMYLASE | [facility] | + + + + | 2022-08-03 00:00 | LIPASE/PROTEASE/AMYLASE | [facility] | + + + + | 2022-08-05 00:00 | LIPASE/PROTEASE/AMYLASE | [facility] | + + + + | 2022-08-17 00:00 | LIPASE/PROTEASE/AMYLASE | [facility] | + + + + | 2022-09-14 00:00 | LIPASE/PROTEASE/AMYLASE | [facility] | + + + + | 2022-09-23 00:00 | LIPASE/PROTEASE/AMYLASE | [facility] | + + + + | 2022-10-08 00:00 | LIPASE/PROTEASE/AMYLASE | [facility] | + + + + | 2022-10-11 00:00 | LIPASE/PROTEASE/AMYLASE | [facility] | + + + + | 2022-10-30 00:00 | LIPASE/PROTEASE/AMYLASE | [facility] | + + + + | 2022-11-24 00:00 | LIPASE/PROTEASE/AMYLASE | [facility] | + + + + | 2022-12-10 00:00 | LIPASE/PROTEASE/AMYLASE | [facility] | + + + + | 2023-01-03 00:00 | LIPASE/PROTEASE/AMYLASE | [facility] | + + + + | 2023-01-05 00:00 | LIPASE/PROTEASE/AMYLASE | [facility] | + + + + | 2023-01-21 00:00 | LIPASE/PROTEASE/AMYLASE | [facility] | + + + + | 2023-01-27 00:00 | LIPASE/PROTEASE/AMYLASE | [facility] | + + + + | 2023-02-02 00:00 | LIPASE/PROTEASE/AMYLASE | [facility] | + + + + | 2023-02-11 00:00 | LIPASE/PROTEASE/AMYLASE | [facility] | + + + + | 2023-02-23 00:00 | LIPASE/PROTEASE/AMYLASE | [facility] | + + + + | 2023-03-05 00:00 | LIPASE/PROTEASE/AMYLASE | [facility] | + + + + | 2023-03-12 00:00 | LIPASE/PROTEASE/AMYLASE | [facility] | + + + + | 2023-03-20 00:00 | LIPASE/PROTEASE/AMYLASE | [facility] | + + + + | 2023-04-08 00:00 | LIPASE/PROTEASE/AMYLASE | [facility] | + + + + | 2023-04-09 00:00 | LIPASE/PROTEASE/AMYLASE | [facility] | + + + + | 2023-05-05 00:00 | LIPASE/PROTEASE/AMYLASE | [facility] | + + + + | 2022-03-22 00:00 | amylase [id number] UNT / lipase | [facility] | | | 6000 UNT / protease [id number] | | | | UNT Del | | + + + + | 2023-05-05 00:00 | METOPROLOL SUCCINATE | [facility] | + + + + | 2023-01-05 00:00 | HYDROMORPHONE HCL | [facility] | + + + + | 2022-11-24 00:00 | DICYCLOMINE HCL | [facility] | + + + + | 2022-12-10 00:00 | DICYCLOMINE HCL | [facility] | + + + + | 2023-01-03 00:00 | DICYCLOMINE HCL | [facility] | + + + + | 2023-01-05 00:00 | DICYCLOMINE HCL | [facility] | + + + + | 2023-01-21 00:00 | DICYCLOMINE HCL | [facility] | + + + + | 2023-01-27 00:00 | DICYCLOMINE HCL | [facility] | + + + + | 2023-02-02 00:00 | DICYCLOMINE HCL | [facility] | + + + + | 2023-02-11 00:00 | DICYCLOMINE HCL | [facility] | + + + + | 2023-02-23 00:00 | DICYCLOMINE HCL | [facility] | + + + + | 2023-03-05 00:00 | DICYCLOMINE HCL | [facility] | + + + + | 2023-03-12 00:00 | DICYCLOMINE HCL | [facility] | + + + + | 2023-03-20 00:00 | DICYCLOMINE HCL | [facility] | + + + + | 2023-04-08 00:00 | DICYCLOMINE HCL | [facility] | + + + + | 2023-04-09 00:00 | DICYCLOMINE HCL | [facility] | + + + + | 2023-05-05 00:00 | DICYCLOMINE HCL | [facility] | + + + + Problems + + + + | date | description | facility | + + + + | 2014-05-31 00:00 | DKA (diabetic | [facility] | | | ketoacidoses) | | + + + + | 2014-05-31 00:00 | Sepsis | [facility] | + + + + | 2014-05-31 00:00 | Sepsis | [facility] | + + + + | 2014-05-31 00:00 | Diabetes mellitus with | [facility] | | | ketoacidosis | | + + + + | 2014-05-31 00:00 | Diabetes mellitus with | [facility] | | | ketoacidosis | | + + + + | 2014-05-31 00:00 | Dehydration | [facility] | + + + + | 2014-05-31 00:00 | Dehydration | [facility] | + + + + | 2016-02-03 00:00 | Bilateral otitis externa | [facility] | + + + + | 2016-02-03 00:00 | Bilateral otitis externa | [facility] | + + + + | 2016-02-03 00:00 | Acute otitis media of both | [facility] | | | ears with perforation | | + + + + | 2016-02-03 00:00 | Acute otitis media of both | [facility] | | | ears with perforation | | + + + + | 2018-01-03 00:00 | DKA (diabetic | [facility] | | | ketoacidoses) | | + + + + | 2018-01-03 00:00 | Diabetic ketoacidosis | [facility] | + + + + | 2018-01-03 00:00 | Diabetic ketoacidosis | [facility] | + + + + | 2018-01-03 00:00 | Hypertriglyceridemia | [facility] | + + + + | 2018-01-03 00:00 | Hypertriglyceridemia | [facility] | + + + + | 2018-01-03 00:00 | Hypokalemia | [facility] | + + + + | 2018-01-03 00:00 | Hypokalemia | [facility] | + + + + | 2018-01-03 00:00 | Pancreatitis | [facility] | + + + + | 2018-01-03 00:00 | Pancreatitis | [facility] | + + + + | 2018-03-14 00:00 | DKA, type 1 | [facility] | + + + + | 2018-03-14 00:00 | Type 1 diabetes mellitus | [facility] | | | with ketoacidosis | | + + + + | 2018-03-14 00:00 | Type 1 diabetes mellitus | [facility] | | | with ketoacidosis | | + + + + | 2019-03-18 00:00 | Chest wall pain | [facility] | + + + + | 2019-03-18 00:00 | Chest wall pain | [facility] | + + + + | 2021-01-20 00:00 | Urinary retention | [facility] | + + + + | 2021-01-20 00:00 | Retention of urine | [facility] | + + + + | 2021-01-20 00:00 | Retention of urine | [facility] | + + + + | 2021-01-20 00:00 | Hyperglycemia | [facility] | + + + + | 2021-01-20 00:00 | Hyperglycemia | [facility] | + + + + | 2021-01-29 00:00 | Encounter for medical | [facility] | | | screening examination | | + + + + | 2021-01-29 00:00 | Encounter for medical | [facility] | | | screening examination | | + + + + | 2021-01-29 00:00 | Encounter for Ellis | [facility] | | | catheter removal | | + + + + | 2021-01-29 00:00 | Encounter for Ellis | [facility] | | | catheter removal | | + + + + | 2021-02-02 00:00 | Abdominal pain | [facility] | + + + + | 2021-02-02 00:00 | Abdominal pain | [facility] | + + + + | 2021-02-02 00:00 | Nausea and vomiting | [facility] | + + + + | 2021-02-02 00:00 | Nausea and vomiting | [facility] | + + + + | 2021-03-01 00:00 | UTI (urinary tract | [facility] | | | infection) | | + + + + | 2021-03-01 00:00 | Urinary tract infection | [facility] | + + + + | 2021-03-01 00:00 | Urinary tract infection | [facility] | + + + + | 2021-07-21 00:00 | Acute chest wall pain | [facility] | + + + + | 2021-07-21 00:00 | Acute chest wall pain | [facility] | + + + + | 2021-07-31 00:00 | Acute gastritis | [facility] | + + + + | 2021-07-31 00:00 | Acute gastritis | [facility] | + + + + [...] + + | 2021-07-31 11:38 | OTHER [facility] (CURRENT) | [facility] | | | DRUG [...] + + + | 2021-09-09 20:54 | [facility] (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 OF | [facility] | | | INSULIN | | + + + + | 2021-09-09 20:54 | OTHER RN ICU (CURRENT) | [facility] | | | DRUG [...] 2021-09-27 00:00 | Allergic reaction caused | [facility] | | | by a drug | | + + + + | 2021-09-27 00:00 | Allergic reaction to drug | [facility] | + + + + | 2021-09-27 00:00 | Allergic reaction to drug | [facility] | + + + + [...] EFFECT OF | [facility] | | | [id number] | | | | INHIBITORS, INIT | | + + + + | 2021-09-27 21:10 | RN ICU (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 OF | [facility] | | | INSULIN | | + + + + | 2021-09-27 21:10 | OTHER RN ICU (CURRENT) | [facility] | | | DRUG [...] + + + | 2021-10-24 21:04 | [facility] (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 OF | [facility] | | | INSULIN | | + + + + | 2021-10-24 21:04 | OTHER RN ICU (CURRENT) | [facility] | | | DRUG [...] + + + | 2021-11-02 23:59 | [facility] (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 OF | [facility] | | | INSULIN | | + + + + | 2021-11-02 23:59 | OTHER [facility] (CURRENT) | [facility] | | | DRUG [...] + | 2021-11-08 00:00 | Lightheaded | [facility] | + + + + | 2021-11-08 00:00 | Dyspnea | [facility] | + + + + | 2021-11-08 00:00 | Dyspnea | [facility] | + + + + | 2021-11-08 00:00 | Non-cardiac chest pain | [facility] | + + + + | 2021-11-08 00:00 | Non-cardiac chest pain | [facility] | + + + + | 2021-11-08 00:00 | Lightheadedness | [facility] | + + + + | 2021-11-08 00:00 | Lightheadedness | [facility] | + + + + [...] + + + | 2021-11-08 00:36 | [facility] (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 OF | [facility] | | | ORAL HYPOGLYCEMIC DRUGS | | + + + + | 2021-11-08 00:36 | OTHER RN ICU (CURRENT) | [facility] | | | DRUG [...] + + + | 2021-11-26 22:29 | RN ICU (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 OF | [facility] | | | INSULIN | | + + + + | 2021-11-26 22:29 | OTHER [facility] (CURRENT) | [facility] | | | DRUG [...] 2021-11-27 00:00 | Insulin dependent diabetes | [facility] | | | mellitus | | + + + + | 2021-11-27 00:00 | Hypertension | [facility] | + + + + | 2021-11-27 00:00 | Hypertension | [facility] | + + + + | 2021-11-27 00:00 | Insulin dependent diabetes | [facility] | | | mellitus | | + + + + | 2021-11-27 00:00 | Resolved abdominal pain | [facility] | + + + + | 2021-11-27 00:00 | Resolved abdominal pain | [facility] | + + + + [...] + + + | 2021-12-04 20:12 | [facility] (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 OF | [facility] | | | INSULIN | | + + + + | 2021-12-04 20:12 | OTHER RN ICU (CURRENT) | [facility] | | | DRUG [...] 2021-12-05 00:00 | Hordeolum externum left | [facility] | | | lower eyelid | | + + + + | 2021-12-05 00:00 | Hordeolum externum of left | [facility] | | | lower eyelid | | + + + + | 2021-12-05 00:00 | Hordeolum externum of left | [facility] | | | lower eyelid | | + + + + | 2021-12-05 00:00 | Otitis externa | [facility] | + + + + | 2021-12-05 00:00 | Otitis externa | [facility] | + + + + [...] + + + | 2021-12-23 14:51 | RN ICU (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 OF | [facility] | | | INSULIN | | + + + + | 2021-12-23 14:51 | OTHER [facility] (CURRENT) | [facility] | | | DRUG [...] + + + | 2022-02-07 23:34 | [facility] (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 OF | [facility] | | | INSULIN | | + + + + | 2022-02-07 23:34 | OTHER [facility] (CURRENT) | [facility] | | | DRUG [...] 00:00 | Contusion of left knee | [facility] | + + + + | 2022-02-08 00:00 | Contusion of left knee | [facility] | + + + + | 2022-02-13 [...] + + + | 2022-02-13 20:21 | [facility] (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 OF | [facility] | | | INSULIN | | + + + + | 2022-02-13 20:21 | OTHER RN ICU (CURRENT) | [facility] | | | DRUG [...] 2022-02-17 00:00 | Hypoglycemia due to | [facility] | | | insulin | | + + + + | 2022-02-17 00:00 | Hypoglycemic reaction to | [facility] | | | insulin | | + + + + | 2022-02-17 00:00 | Hypoglycemic reaction to | [facility] | | | insulin | [...] + + + | 2022-02-17 03:45 | [facility] (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 OF | [facility] | | [...] + + + | 2022-03-04 15:28 | RN ICU (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 OF | [facility] | | | INSULIN | | + + + + | 2022-03-04 15:28 | OTHER [facility] (CURRENT) | [facility] | | | DRUG [...] 2022-03-07 00:00 | Upper abdominal pain | [facility] | + + + + | 2022-03-07 00:00 | Pain of upper abdomen | [facility] | + + + + | 2022-03-07 00:00 | Pain of upper abdomen | [facility] | + + + + [...] + + + | 2022-03-07 00:39 | [facility] (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 OF | [facility] | | | INSULIN | | + + + + | 2022-03-07 00:39 | OTHER [facility] (CURRENT) | [facility] | | | DRUG [...] 2022-03-12 00:00 | Candidiasis of genitalia | [facility] | + + + + | 2022-03-12 00:00 | Candidiasis of genitalia | [facility] | + + + + | 2022-03-12 [...] + + + | 2022-03-12 02:19 | [facility] (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 OF | [facility] | | | INSULIN | | + + + + | 2022-03-12 02:19 | OTHER RN ICU (CURRENT) | [facility] | | | DRUG [...] 2022-03-16 00:00 | CRI (chronic renal | [facility] | | | insufficiency) | | + + + + | 2022-03-16 00:00 | Diabetes | [facility] | + + + + | 2022-03-16 00:00 | Diabetes mellitus | [facility] | + + + + | 2022-03-16 00:00 | Diabetes mellitus | [facility] | + + + + | 2022-03-16 00:00 | Chronic renal impairment | [facility] | + + + + | 2022-03-16 00:00 | Chronic renal impairment | [facility] | + + + + [...] + + | 2022-03-16 10:31 | OTHER RN ICU (CURRENT) | [facility] | | | DRUG [...] 00:00 | Type 1 diabetes mellitus | [facility] | + + + + | 2022-03-19 00:00 | Type 1 diabetes mellitus | [facility] | + + + + | 2022-03-19 00:00 | Colitis | [facility] | + + + + | 2022-03-19 00:00 | Colitis | [facility] | + + + + [...] + + + | 2022-03-19 10:01 | RN ICU (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 OF | [facility] | | | INSULIN | | + + + + | 2022-03-19 10:01 | [facility] (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 OF | [facility] | | | OPIATE ANALGESIC | | + + + + | 2022-03-19 10:01 | OTHER RN ICU (CURRENT) | [facility] | | | DRUG [...] | 2022-03-26 00:00 | Chest pain | [facility] | + + + + | 2022-03-26 00:00 | Chest pain | [facility] | + + + + [...] + + + | 2022-03-26 06:58 | RN ICU (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 OF | [facility] | | | INSULIN | | + + + + | 2022-03-26 06:58 | OTHER RN ICU (CURRENT) | [facility] | | | DRUG [...] | 2022-04-21 00:00 | Epigastric pain | [facility] | + + + + | 2022-04-21 00:00 | Epigastric pain | [facility] | + + + + [...] + + + | 2022-04-21 07:11 | RN ICU (CURRENT) USE OF | [facility] | | | INSULIN | | + + + + | 2022-04-21 07:11 | OTHER [facility] (CURRENT) | [facility] | | | DRUG [...] + + + | 2022-05-22 22:48 | RN ICU (CURRENT) USE OF | [facility] | | | INSULIN | | + + + + | 2022-05-22 22:48 | OTHER [facility] (CURRENT) | [facility] | | | DRUG [...] 2022-05-23 00:00 | Atypical chest pain | [facility] | + + + + | 2022-05-23 00:00 | Atypical chest pain | [facility] | + + + + [...] + + + | 2022-05-26 18:10 | [facility] (CURRENT) USE OF | [facility] | | [...] + + + | 2022-06-18 11:42 | RN ICU (CURRENT) USE OF | [facility] | | | INSULIN | | + + + + | 2022-06-18 11:42 | OTHER [facility] (CURRENT) | [facility] | | | DRUG [...] 2022-06-21 00:00 | Acute kidney injury | [facility] | + + + + | 2022-06-21 00:00 | Acute kidney injury | [facility] | + + + + [...] + | 2022-06-22 00:00 | Acidosis | [facility] | + + + + | 2022-06-22 00:00 | Acidosis | [facility] | + + + + | 2022-07-03 00:00 | Right upper quadrant | [facility] | | | abdominal pain | | + + + + | 2022-07-03 00:00 | Right upper quadrant | [facility] | | | abdominal pain [...] + + + | 2022-07-03 05:56 | [facility] (CURRENT) USE OF | [facility] | | | INSULIN | | + + + + | 2022-07-03 05:56 | OTHER RN ICU (CURRENT) | [facility] | | | DRUG [...] 00:00 | Patient left without being | [facility] | | | seen | | + + + + | 2022-07-08 00:00 | Patient left without being | [facility] | | | seen | | + + + + | 2022-07-27 00:00 | Biliary colic | [facility] | + + + + | 2022-07-27 00:00 | Biliary colic | [facility] | + + + + [...] + + | 2022-07-27 00:25 | OTHER RN ICU (CURRENT) | [facility] | | | DRUG [...] + + + | 2022-07-29 08:41 | [facility] (CURRENT) USE OF | [facility] | | | INSULIN | | + + + + | 2022-07-29 08:41 | OTHER [facility] (CURRENT) | [facility] | | | DRUG [...] + | 2022-08-03 00:00 | Hyperkalemia | [facility] | + + + + | 2022-08-03 00:00 | Hyperkalemia | [facility] | + + + + | 2022-08-03 00:00 | Encounter for medication | [facility] | | | refill | | + + + + | 2022-08-03 00:00 | Encounter for medication | [facility] | | | refill | [...] + + | 2022-08-03 12:33 | OTHER [facility] (CURRENT) | [facility] | | | DRUG [...] + + + | 2022-09-22 21:55 | [facility] (CURRENT) USE OF | [facility] | | | INSULIN | | + + + + | 2022-09-22 21:55 | OTHER [facility] (CURRENT) | [facility] | | | DRUG [...] + | 2022-10-06 00:00 | Dysuria | [facility] | + + + + | 2022-10-06 00:00 | Dysuria | [facility] | + + + + [...] + + + | 2022-10-06 04:49 | [facility] (CURRENT) USE OF | [facility] | | | INSULIN | | + + + + | 2022-10-06 04:49 | OTHER RN ICU (CURRENT) | [facility] | | | DRUG [...] + + + | 2022-10-10 22:40 | [facility] (CURRENT) USE OF | [facility] | | | INSULIN | | + + + + | 2022-10-10 22:40 | OTHER [facility] (CURRENT) | [facility] | | | DRUG [...] 00:00 | Type 1 diabetes mellitus | [facility] | | | with hyperglycemia | | + + + + | 2022-10-11 00:00 | Type 1 diabetes mellitus | [facility] | | | with hyperglycemia | | + + + + | 2022-10-30 00:00 | Renal insufficiency | [facility] | + + + + | 2022-10-30 00:00 | Renal insufficiency | [facility] | + + + + [...] + + + | 2022-10-30 01:11 | RN ICU (CURRENT) USE OF | [facility] | | | INSULIN | | + + + + | 2022-10-30 01:11 | OTHER RN ICU (CURRENT) | [facility] | | | DRUG [...] 2022-11-24 00:00 | Chronic abdominal pain | [facility] | + + + + | 2022-11-24 00:00 | Chronic abdominal pain | [facility] | + + + + [...] + + + | 2022-11-24 20:55 | [facility] (CURRENT) USE OF | [facility] | | | INSULIN | | + + + + | 2022-11-24 20:55 | OTHER RN ICU (CURRENT) | [facility] | | | DRUG [...] | 2022-12-07 00:00 | Acute pancreatitis | [facility] | + + + + | 2022-12-07 00:00 | Acute pancreatitis | [facility] | + + + + [...] + + + | 2022-12-08 11:00 | [facility] (CURRENT) USE OF | [facility] | | | INSULIN | | + + + + | 2022-12-08 11:00 | OTHER RN ICU (CURRENT) | [facility] | | | DRUG [...] | 2023-01-03 00:00 | Recurrent pancreatitis | [facility] | + + + + | 2023-01-03 00:00 | Recurrent pancreatitis | [facility] | + + + + | 2023-01-03 00:00 | Abdominal bloating | [facility] | + + + + | 2023-01-03 00:00 | Abdominal bloating | [facility] | + + + + | 2023-01-03 00:00 | Left against medical | [facility] | | | advice | | + + + + | 2023-01-03 00:00 | Left against medical | [facility] | | | advice | [...] + + + | 2023-01-20 23:40 | [facility] (CURRENT) USE OF | [facility] | | [...] + + + | 2023-01-26 21:48 | [facility] (CURRENT) USE OF | [facility] | | [...] + + + | 2023-02-02 00:06 | [facility] (CURRENT) USE OF | [facility] | | [...] | 2023-02-11 00:00 | Positive blood | [facility] | | | test | | + + + + | 2023-02-11 00:00 | Positive blood | [facility] | | | test | | + + + + | 2023-02-11 00:00 | | [facility] | + + + + | 2023-02-11 00:00 | | [facility] | + + + + [...] + + + | 2023-02-11 00:33 | RN ICU (CURRENT) USE OF | [facility] | | | INSULIN | | + + + + | 2023-02-11 00:33 | OTHER [facility] (CURRENT) | [facility] | | | DRUG [...] + + + | 2023-02-23 00:40 | RN ICU (CURRENT) USE OF | [facility] | | | INSULIN | | + + + + | 2023-02-23 00:40 | OTHER RN ICU (CURRENT) | [facility] | | | DRUG [...] + + + | 2023-03-04 21:44 | RN ICU (CURRENT) USE OF | [facility] | | | INSULIN | | + + + + | 2023-03-04 21:44 | OTHER RN ICU (CURRENT) | [facility] | | | DRUG [...] 2023-03-12 00:00 | Poorly controlled diabetes | [facility] | | | mellitus | | + + + + | 2023-03-12 00:00 | Poorly controlled diabetes | [facility] | | | mellitus | [...] + + + | 2023-03-12 11:46 | [facility] (CURRENT) USE OF | [facility] | | [...] + + + | 2023-03-20 13:05 | [facility] (CURRENT) USE OF | [facility] | | | INSULIN | | + + + + | 2023-03-20 13:05 | OTHER [facility] (CURRENT) | [facility] | | | DRUG [...] + + + | 2023-04-08 00:15 | RN ICU (CURRENT) USE OF | [facility] | | [...] 2023-04-10 00:00 | Uncontrolled type 1 | [facility] | | | diabetes mellitus | | + + + + | 2023-04-22 00:00 | 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[facility] | | | hyperglycinemia | | + + + + | 2023-04-22 00:00 | Chronic kidney disease | [facility] | + + + + [...] + + + | 2023-04-22 00:28 | [facility] (CURRENT) USE OF | [facility] | | | INSULIN | | + + + + | 2023-04-22 00:28 | OTHER [facility] (CURRENT) | [facility] | | | DRUG [...] | 2023-05-05 00:00 | Flank pain | [facility] | + + + + [...] + + + | 2023-05-05 21:18 | [facility] (CURRENT) USE OF | [facility] | | | INSULIN | | + + + + | 2023-05-05 21:18 | OTHER [facility] (CURRENT) | [facility] | | | DRUG [...] 00:00 | EXCISION OF RIGHT LARGE | [facility] | | | INTESTINE, ENDO, DIAGN | | + + + + | 2022-03-20 00:00 | EXCISION OF LEFT LARGE | [facility] | | | INTESTINE, ENDO, DIAGN | | + + + + | 2022-03-20 00:00 | EXCISION OF CECUM, ENDO, | [facility] | | | DIAGN | | + + + + | 2022-03-20 00:00 | EXCISION OF SIGMOID COLON, | [facility] | | | ENDO, DIAGN | | + + + + | 2022-03-20 00:00 | EXCISION OF RECTUM, ENDO, | [facility] | | | DIAGN | | + + + + | 2022-03-20 00:00 | TRANSFUSE NONAUT RED BLOOD | [facility] | | | CELLS IN PERIPH VEIN, PERC | | | | | | + + + + | 2022-03-20 00:00 | Colonoscopy with biopsy of | [facility] | | | colon | [...] | | (unavailable | | Andrea | [phone] | | | | ) | | [...] | | (unavailable | | Andrea | [phone] | | | | ) | | [...] | | (unavailable | | Andrea | [phone] | | | | ) | | [...] | | (unavailable | | Andrea | [phone] | | | | ) | | [...] | | | | | | | [place] | | | | | | + [...] (missing) | | urine | 07:45 | Nadrea | | | | | sediment | [...] NEGATIVE | (missing) | (missing) | | [id number] | 07:45 | Andrea | | | [...] (missing) | | (unavailable | 07:45 | Andera | | | | | ) | [...] (missing) | | (unavailable | 06:30 | Anrdea | | | | | [...] (missing) | | (unavailable | 06:30 | Adnrea | | | | | [...] (missing) | | (unavailable | 14:34 | Anrdea | | | | | [...] (missing) | | (unavailable | 01:00:07 | Andrae | | | | | ) | [...] (missing) | | (unavailable | 01:11:07 | Anrdea | | | | | [...] | trans packed | | Andrea | [phone] | | | | RBC | | [...] (missing) | | group typing | | [facility] | | | | + + + +-----+ + + Social History + + + + | date | description | facility | + + + + | 2022-03-22 00:00 | Never smoker | [facility] | + + + + [...]
--- OUTSIDE RECORDS SUMMARY | ~2023-05-07 | XMS | Continuity of Care Document ---
Demographics + + + | Address | [address] | | | [place] [address] | + + + | Preferred Language | Unknown | + + + | Marital Status | | + + + | Confucianist Affiliation | Unknown | + + + | Race | or | + + + | Ethnic Group | Not or | + + + Author + + + | Author | [facility] | + + + | Organization | [facility] | + + + | Address | [address] [place] [address] | | | [place] [address] | + + + | Phone | | + + + Care Team Providers + + + + | Care Cyberathlete Name | Role | Phone | + [...] 2022-03-22 00:00 | No vaccine administered | [facility] | + + + + Medications + + + + | date | description | facility | + + + + | 2021-01-18 00:00 | FAMOTIDINE | [facility] | + + + + | 2021-01-18 00:00 | FAMOTIDINE | [facility] | + + + + | 2022-03-22 00:00 | FAMOTIDINE | [facility] | + + + + | 2022-03-23 00:00 | FAMOTIDINE | [facility] | + + + + | 2022-03-25 00:00 | FAMOTIDINE | [facility] | + + + + | 2022-03-27 00:00 | FAMOTIDINE | [facility] | + + + + | 2022-03-28 00:00 | FAMOTIDINE | [facility] | + + + + | 2022-05-23 00:00 | FAMOTIDINE | [facility] | + + + + | 2022-06-18 00:00 | FAMOTIDINE | [facility] | + + + + | 2022-06-22 00:00 | FAMOTIDINE | [facility] | + + + + | 2022-07-03 00:00 | FAMOTIDINE | [facility] | + + + + | 2022-07-08 00:00 | FAMOTIDINE | [facility] | + + + + | 2022-07-29 00:00 | FAMOTIDINE | [facility] | + + + + | 2022-08-03 00:00 | FAMOTIDINE | [facility] | + + + + | 2022-08-05 00:00 | FAMOTIDINE | [facility] | + + + + | 2022-08-17 00:00 | FAMOTIDINE | [facility] | + + + + | 2022-09-14 00:00 | FAMOTIDINE | [facility] | + + + + | 2022-09-23 00:00 | FAMOTIDINE | [facility] | + + + + | 2022-10-08 00:00 | FAMOTIDINE | [facility] | + + + + | 2022-10-11 00:00 | FAMOTIDINE | [facility] | + + + + | 2022-10-30 00:00 | FAMOTIDINE | [facility] | + + + + | 2022-11-24 00:00 | FAMOTIDINE | [facility] | + + + + | 2022-12-10 00:00 | FAMOTIDINE | [facility] | + + + + | 2023-01-03 00:00 | FAMOTIDINE | [facility] | + + + + | 2023-01-05 00:00 | FAMOTIDINE | [facility] | + + + + | 2023-01-21 00:00 | FAMOTIDINE | [facility] | + + + + | 2023-01-27 00:00 | FAMOTIDINE | [facility] | + + + + | 2023-02-02 00:00 | FAMOTIDINE | [facility] | + + + + | 2023-02-11 00:00 | FAMOTIDINE | [facility] | + + + + | 2023-02-23 00:00 | FAMOTIDINE | [facility] | + + + + | 2023-03-05 00:00 | FAMOTIDINE | [facility] | + + + + | 2023-03-12 00:00 | FAMOTIDINE | [facility] | + + + + | 2023-03-20 00:00 | FAMOTIDINE | [facility] | + + + + | 2023-04-08 00:00 | FAMOTIDINE | [facility] | + + + + | 2023-04-09 00:00 | FAMOTIDINE | [facility] | + + + + | 2023-05-05 00:00 | FAMOTIDINE | [facility] | + + + + | 2021-01-18 00:00 | famotidine 20 MG Oral | [facility] | | | Tablet [Pepcid] | | + + + + | 2022-03-22 00:00 | famotidine 20 MG Oral | [facility] | | | Tablet [Pepcid] | | + + + + | 2022-03-07 00:00 | ONDANSETRON | [facility] | + + + + | 2022-07-03 00:00 | ONDANSETRON | [facility] | + + + + | 2022-09-23 00:00 | ONDANSETRON | [facility] | + + + + | 2022-10-06 00:00 | ONDANSETRON | [facility] | + + + + | 2022-03-07 00:00 | ondansetron 4 MG | [facility] | | | Disintegrating Oral Tablet | | + + + + | 2018-10-19 00:00 | ONDANSETRON HCL | [facility] | + + + + | 2018-10-19 00:00 | ONDANSETRON HCL | [facility] | + + + + | 2021-01-18 00:00 | ONDANSETRON HCL | [facility] | + + + + | 2021-01-18 00:00 | ONDANSETRON HCL | [facility] | + + + + | 2022-03-23 00:00 | ONDANSETRON HCL | [facility] | + + + + | 2022-03-25 00:00 | ONDANSETRON HCL | [facility] | + + + + | 2022-03-27 00:00 | ONDANSETRON HCL | [facility] | + + + + | 2022-03-28 00:00 | ONDANSETRON HCL | [facility] | + + + + | 2022-06-18 00:00 | ONDANSETRON HCL | [facility] | + + + + | 2022-06-22 00:00 | ONDANSETRON HCL | [facility] | + + + + | 2022-07-03 00:00 | ONDANSETRON HCL | [facility] | + + + + | 2022-07-08 00:00 | ONDANSETRON HCL | [facility] | + + + + | 2022-07-29 00:00 | ONDANSETRON HCL | [facility] | + + + + | 2022-08-03 00:00 | ONDANSETRON HCL | [facility] | + + + + | 2022-08-05 00:00 | ONDANSETRON HCL | [facility] | + + + + | 2022-08-17 00:00 | ONDANSETRON HCL | [facility] | + + + + | 2022-09-14 00:00 | ONDANSETRON HCL | [facility] | + + + + | 2022-09-23 00:00 | ONDANSETRON HCL | [facility] | + + + + | 2022-10-08 00:00 | ONDANSETRON HCL | [facility] | + + + + | 2022-10-11 00:00 | ONDANSETRON HCL | [facility] | + + + + | 2022-10-30 00:00 | ONDANSETRON HCL | [facility] | + + + + | 2022-11-24 00:00 | ONDANSETRON HCL | [facility] | + + + + | 2022-12-10 00:00 | ONDANSETRON HCL | [facility] | + + + + | 2023-01-03 00:00 | ONDANSETRON HCL | [facility] | + + + + | 2023-01-05 00:00 | ONDANSETRON HCL | [facility] | + + + + | 2023-01-21 00:00 | ONDANSETRON HCL | [facility] | + + + + | 2023-01-27 00:00 | ONDANSETRON HCL | [facility] | + + + + | 2023-02-02 00:00 | ONDANSETRON HCL | [facility] | + + + + | 2023-02-11 00:00 | ONDANSETRON HCL | [facility] | + + + + | 2023-02-23 00:00 | ONDANSETRON HCL | [facility] | + + + + | 2023-03-05 00:00 | ONDANSETRON HCL | [facility] | + + + + | 2023-03-12 00:00 | ONDANSETRON HCL | [facility] | + + + + | 2023-03-20 00:00 | ONDANSETRON HCL | [facility] | + + + + | 2023-04-08 00:00 | ONDANSETRON HCL | [facility] | + + + + | 2023-04-09 00:00 | ONDANSETRON HCL | [facility] | + + + + | 2023-05-05 00:00 | ONDANSETRON HCL | [facility] | + + + + | 2018-10-19 00:00 | ondansetron 4 MG Oral | [facility] | | | Tablet [Zofran] | | + + + + | 2021-01-18 00:00 | ondansetron 4 MG Oral | [facility] | | | Tablet [Zofran] | | + + + + | 2022-03-22 00:00 | ondansetron 4 MG Oral | [facility] | | | Tablet [Zofran] | | + + + + | 2022-03-18 00:00 | OXYCODONE HCL | [facility] | + + + + | 2022-03-18 00:00 | oxycodone hydrochloride 5 | [facility] | | | MG Oral Tablet | | + + + + | 2022-07-03 00:00 | NAPROXEN | [facility] | + + + + | 2022-07-03 00:00 | NAPROXEN | [facility] | + + + + | 2023-05-05 00:00 | PHENAZOPYRIDINE HCL | [facility] | + + + + | 2021-03-01 00:00 | PHENAZOPYRIDINE HCL | [facility] | + + + + | 2021-03-01 00:00 | PHENAZOPYRIDINE HCL | [facility] | + + + + | 2021-07-14 00:00 | PHENAZOPYRIDINE HCL | [facility] | + + + + | 2021-07-14 00:00 | PHENAZOPYRIDINE HCL | [facility] | + + + + | 2021-03-01 00:00 | phenazopyridine | [facility] | | | hydrochloride 200 MG Oral | | | | Tablet [Pyridium] | | + + + + | 2021-07-14 00:00 | phenazopyridine | [facility] | | | hydrochloride 200 MG Oral | | | | Tablet [Pyridium] | | + + + + | 2022-03-22 00:00 | [place]-L[place] 28 Day Pack | [facility] | + + + + | 2022-03-23 00:00 | NORGESTIMATE-ETHINYL | [facility] | | | ESTRADIOL | | + + + + | 2022-03-25 00:00 | NORGESTIMATE-ETHINYL | [facility] | | | ESTRADIOL | | + + + + | 2022-03-27 00:00 | NORGESTIMATE-ETHINYL | [facility] | | | ESTRADIOL | | + + + + | 2022-03-28 00:00 | NORGESTIMATE-ETHINYL | [facility] | | | ESTRADIOL | | + + + + | 2022-06-18 00:00 | NORGESTIMATE-ETHINYL | [facility] | | | ESTRADIOL | | + + + + | 2022-06-22 00:00 | NORGESTIMATE-ETHINYL | [facility] | | | ESTRADIOL | | + + + + | 2022-07-03 00:00 | NORGESTIMATE-ETHINYL | [facility] | | | ESTRADIOL | | + + + + | 2022-07-08 00:00 | NORGESTIMATE-ETHINYL | [facility] | | | ESTRADIOL | | + + + + | 2022-07-29 00:00 | NORGESTIMATE-ETHINYL | [facility] | | | ESTRADIOL | | + + + + | 2022-08-03 00:00 | NORGESTIMATE-ETHINYL | [facility] | | | ESTRADIOL | | + + + + | 2022-08-05 00:00 | NORGESTIMATE-ETHINYL | [facility] | | | ESTRADIOL | | + + + + | 2022-08-17 00:00 | NORGESTIMATE-ETHINYL | [facility] | | | ESTRADIOL | | + + + + | 2022-09-14 00:00 | NORGESTIMATE-ETHINYL | [facility] | | | ESTRADIOL | | + + + + | 2022-09-23 00:00 | NORGESTIMATE-ETHINYL | [facility] | | | ESTRADIOL | | + + + + | 2022-10-08 00:00 | NORGESTIMATE-ETHINYL | [facility] | | | ESTRADIOL | | + + + + | 2022-10-11 00:00 | NORGESTIMATE-ETHINYL | [facility] | | | ESTRADIOL | | + + + + | 2022-10-30 00:00 | NORGESTIMATE-ETHINYL | [facility] | | | ESTRADIOL | | + + + + | 2022-11-24 00:00 | NORGESTIMATE-ETHINYL | [facility] | | | ESTRADIOL | | + + + + | 2022-12-10 00:00 | NORGESTIMATE-ETHINYL | [facility] | | | ESTRADIOL | | + + + + | 2023-01-03 00:00 | NORGESTIMATE-ETHINYL | [facility] | | | ESTRADIOL | | + + + + | 2023-01-05 00:00 | NORGESTIMATE-ETHINYL | [facility] | | | ESTRADIOL | | + + + + | 2023-01-21 00:00 | NORGESTIMATE-ETHINYL | [facility] | | | ESTRADIOL | | + + + + | 2023-01-27 00:00 | NORGESTIMATE-ETHINYL | [facility] | | | ESTRADIOL | | + + + + | 2023-02-02 00:00 | NORGESTIMATE-ETHINYL | [facility] | | | ESTRADIOL | | + + + + | 2023-02-11 00:00 | NORGESTIMATE-ETHINYL | [facility] | | | ESTRADIOL | | + + + + | 2023-02-23 00:00 | NORGESTIMATE-ETHINYL | [facility] | | | ESTRADIOL | | + + + + | 2023-03-05 00:00 | NORGESTIMATE-ETHINYL | [facility] | | | ESTRADIOL | | + + + + | 2023-03-12 00:00 | NORGESTIMATE-ETHINYL | [facility] | | | ESTRADIOL | | + + + + | 2023-03-20 00:00 | NORGESTIMATE-ETHINYL | [facility] | | | ESTRADIOL | | + + + + | 2023-04-08 00:00 | NORGESTIMATE-ETHINYL | [facility] | | | ESTRADIOL | | + + + + | 2023-04-09 00:00 | NORGESTIMATE-ETHINYL | [facility] | | | ESTRADIOL | | + + + + | 2023-05-05 00:00 | NORGESTIMATE-ETHINYL | [facility] | | | ESTRADIOL | | + + + + | 2022-03-23 00:00 | ERGOCALCIFEROL (VITAMIN | [facility] | | | D2) | | + + + + | 2022-03-25 00:00 | ERGOCALCIFEROL (VITAMIN | [facility] | | | D2) | | + + + + | 2022-03-27 00:00 | ERGOCALCIFEROL (VITAMIN | [facility] | | | D2) | | + + + + | 2022-03-28 00:00 | ERGOCALCIFEROL (VITAMIN | [facility] | | | D2) | | + + + + | 2022-06-18 00:00 | ERGOCALCIFEROL (VITAMIN | [facility] | | | D2) | | + + + + | 2022-06-22 00:00 | ERGOCALCIFEROL (VITAMIN | [facility] | | | D2) | | + + + + | 2022-07-03 00:00 | ERGOCALCIFEROL (VITAMIN | [facility] | | | D2) | | + + + + | 2022-07-08 00:00 | ERGOCALCIFEROL (VITAMIN | [facility] | | | D2) | | + + + + | 2022-07-29 00:00 | ERGOCALCIFEROL (VITAMIN | [facility] | | | D2) | | + + + + | 2022-08-03 00:00 | ERGOCALCIFEROL (VITAMIN | [facility] | | | D2) | | + + + + | 2022-08-05 00:00 | ERGOCALCIFEROL (VITAMIN | [facility] | | | D2) | | + + + + | 2022-08-17 00:00 | ERGOCALCIFEROL (VITAMIN | [facility] | | | D2) | | + + + + | 2022-09-14 00:00 | ERGOCALCIFEROL (VITAMIN | [facility] | | | D2) | | + + + + | 2022-09-23 00:00 | ERGOCALCIFEROL (VITAMIN | [facility] | | | D2) | | + + + + | 2022-10-08 00:00 | ERGOCALCIFEROL (VITAMIN | [facility] | | | D2) | | + + + + | 2022-10-11 00:00 | ERGOCALCIFEROL (VITAMIN | [facility] | | | D2) | | + + + + | 2022-10-30 00:00 | ERGOCALCIFEROL (VITAMIN | [facility] | | | D2) | | + + + + | 2022-11-24 00:00 | ERGOCALCIFEROL (VITAMIN | [facility] | | | D2) | | + + + + | 2022-12-10 00:00 | ERGOCALCIFEROL (VITAMIN | [facility] | | | D2) | | + + + + | 2023-01-03 00:00 | ERGOCALCIFEROL (VITAMIN | [facility] | | | D2) | | + + + + | 2023-01-05 00:00 | ERGOCALCIFEROL (VITAMIN | [facility] | | | D2) | | + + + + | 2023-01-21 00:00 | ERGOCALCIFEROL (VITAMIN | [facility] | | | D2) | | + + + + | 2023-01-27 00:00 | ERGOCALCIFEROL (VITAMIN | [facility] | | | D2) | | + + + + | 2023-02-02 00:00 | ERGOCALCIFEROL (VITAMIN | [facility] | | | D2) | | + + + + | 2023-02-11 00:00 | ERGOCALCIFEROL (VITAMIN | [facility] | | | D2) | | + + + + | 2023-02-23 00:00 | ERGOCALCIFEROL (VITAMIN | [facility] | | | D2) | | + + + + | 2023-03-05 00:00 | ERGOCALCIFEROL (VITAMIN | [facility] | | | D2) | | + + + + | 2023-03-12 00:00 | ERGOCALCIFEROL (VITAMIN | [facility] | | | D2) | | + + + + | 2023-03-20 00:00 | ERGOCALCIFEROL (VITAMIN | [facility] | | | D2) | | + + + + | 2023-04-08 00:00 | ERGOCALCIFEROL (VITAMIN | [facility] | | | D2) | | + + + + | 2023-04-09 00:00 | ERGOCALCIFEROL (VITAMIN | [facility] | | | D2) | | + + + + | 2023-05-05 00:00 | ERGOCALCIFEROL (VITAMIN | [facility] | | | D2) | | + + + + | 2022-03-22 00:00 | Ergocalciferol (Vitamin | [facility] | | | D2) | | + + + + | 2022-03-22 00:00 | ergocalciferol 1.25 MG | [facility] | | | Oral Capsule | | + + + + | 2022-03-22 00:00 | Mesalamine | [facility] | + + + + | 2022-03-22 00:00 | mesalamine 400 MG Delayed | [facility] | | | Release Oral Capsule | | | | [Delzicol] | | + + + + | 2023-03-12 00:00 | DOXYCYCLINE HYCLATE | [facility] | + + + + | 2023-03-12 00:00 | DOXYCYCLINE HYCLATE | [facility] | + + + + | 2022-08-03 00:00 | INSULIN LISPRO | [facility] | + + + + | 2022-08-03 00:00 | INSULIN LISPRO | [facility] | + + + + | 2022-06-22 00:00 | Insulin Lispro | [facility] | + + + + | 2022-07-03 00:00 | Insulin Lispro | [facility] | + + + + | 2022-07-08 00:00 | Insulin Lispro | [facility] | + + + + | 2022-07-29 00:00 | Insulin Lispro | [facility] | + + + + | 2022-08-03 00:00 | Insulin Lispro | [facility] | + + + + | 2022-08-05 00:00 | Insulin Lispro | [facility] | + + + + | 2023-05-05 00:00 | Insulin Lispro | [facility] | + + + + | 2022-03-22 00:00 | 3 ML insulin lispro 100 | [facility] | | | UNT/ML Pen Injector | | | | [Humalog] | | + + + + | 2022-03-23 00:00 | INSULIN LISPRO | [facility] | + + + + | 2022-03-25 00:00 | INSULIN LISPRO | [facility] | + + + + | 2022-03-27 00:00 | INSULIN LISPRO | [facility] | + + + + | 2022-03-28 00:00 | INSULIN LISPRO | [facility] | + + + + | 2022-06-18 00:00 | INSULIN LISPRO | [facility] | + + + + | 2022-03-22 00:00 | 3 ML insulin aspart, human | [facility] | | | 100 UNT/ML Pen Injector | | | | [NovoLog] | | + + + + | 2022-03-23 00:00 | INSULIN ASPART | [facility] | + + + + | 2022-03-25 00:00 | INSULIN ASPART | [facility] | + + + + | 2022-03-27 00:00 | INSULIN ASPART | [facility] | + + + + | 2022-03-28 00:00 | INSULIN ASPART | [facility] | + + + + | 2022-06-18 00:00 | INSULIN ASPART | [facility] | + + + + | 2022-06-22 00:00 | INSULIN ASPART | [facility] | + + + + | 2022-07-03 00:00 | INSULIN ASPART | [facility] | + + + + | 2022-07-08 00:00 | INSULIN ASPART | [facility] | + + + + | 2022-07-29 00:00 | INSULIN ASPART | [facility] | + + + + | 2022-08-03 00:00 | INSULIN ASPART | [facility] | + + + + | 2022-08-05 00:00 | INSULIN ASPART | [facility] | + + + + | 2022-08-17 00:00 | INSULIN ASPART | [facility] | + + + + | 2022-09-14 00:00 | INSULIN ASPART | [facility] | + + + + | 2022-09-23 00:00 | INSULIN ASPART | [facility] | + + + + | 2022-10-08 00:00 | INSULIN ASPART | [facility] | + + + + | 2022-10-11 00:00 | INSULIN ASPART | [facility] | + + + + | 2022-10-30 00:00 | INSULIN ASPART | [facility] | + + + + | 2022-11-24 00:00 | INSULIN ASPART | [facility] | + + + + | 2022-12-10 00:00 | INSULIN ASPART | [facility] | + + + + | 2023-01-03 00:00 | INSULIN ASPART | [facility] | + + + + | 2023-01-05 00:00 | INSULIN ASPART | [facility] | + + + + | 2023-01-21 00:00 | INSULIN ASPART | [facility] | + + + + | 2023-01-27 00:00 | INSULIN ASPART | [facility] | + + + + | 2023-02-02 00:00 | INSULIN ASPART | [facility] | + + + + | 2023-02-11 00:00 | INSULIN ASPART | [facility] | + + + + | 2023-02-23 00:00 | INSULIN ASPART | [facility] | + + + + | 2023-03-05 00:00 | INSULIN ASPART | [facility] | + + + + | 2023-03-12 00:00 | INSULIN ASPART | [facility] | + + + + | 2023-03-20 00:00 | INSULIN ASPART | [facility] | + + + + | 2023-04-08 00:00 | INSULIN ASPART | [facility] | + + + + | 2023-04-09 00:00 | INSULIN ASPART | [facility] | + + + + | 2023-05-05 00:00 | INSULIN ASPART | [facility] | + + + + | 2023-01-21 00:00 | CEPHALEXIN | [facility] | + + + + | 2022-03-23 00:00 | ESTRADIOL | [facility] | + + + + | 2022-03-25 00:00 | ESTRADIOL | [facility] | + + + + | 2022-03-27 00:00 | ESTRADIOL | [facility] | + + + + | 2022-03-28 00:00 | ESTRADIOL | [facility] | + + + + | 2022-06-18 00:00 | ESTRADIOL | [facility] | + + + + | 2022-06-22 00:00 | ESTRADIOL | [facility] | + + + + | 2022-07-03 00:00 | ESTRADIOL | [facility] | + + + + | 2022-07-08 00:00 | ESTRADIOL | [facility] | + + + + | 2022-07-29 00:00 | ESTRADIOL | [facility] | + + + + | 2022-08-03 00:00 | ESTRADIOL | [facility] | + + + + | 2022-08-05 00:00 | ESTRADIOL | [facility] | + + + + | 2022-08-17 00:00 | ESTRADIOL | [facility] | + + + + | 2022-09-14 00:00 | ESTRADIOL | [facility] | + + + + | 2022-09-23 00:00 | ESTRADIOL | [facility] | + + + + | 2022-10-08 00:00 | ESTRADIOL | [facility] | + + + + | 2022-10-11 00:00 | ESTRADIOL | [facility] | + + + + | 2022-10-30 00:00 | ESTRADIOL | [facility] | + + + + | 2022-11-24 00:00 | ESTRADIOL | [facility] | + + + + | 2022-12-10 00:00 | ESTRADIOL | [facility] | + + + + | 2023-01-03 00:00 | ESTRADIOL | [facility] | + + + + | 2023-01-05 00:00 | ESTRADIOL | [facility] | + + + + | 2023-01-21 00:00 | ESTRADIOL | [facility] | + + + + | 2023-01-27 00:00 | ESTRADIOL | [facility] | + + + + | 2023-02-02 00:00 | ESTRADIOL | [facility] | + + + + | 2023-02-11 00:00 | ESTRADIOL | [facility] | + + + + | 2023-02-23 00:00 | ESTRADIOL | [facility] | + + + + | 2023-03-05 00:00 | ESTRADIOL | [facility] | + + + + | 2023-03-12 00:00 | ESTRADIOL | [facility] | + + + + | 2023-03-20 00:00 | ESTRADIOL | [facility] | + + + + | 2023-04-08 00:00 | ESTRADIOL | [facility] | + + + + | 2023-04-09 00:00 | ESTRADIOL | [facility] | + + + + | 2023-05-05 00:00 | ESTRADIOL | [facility] | + + + + | 2022-03-22 00:00 | estradiol 2 MG Oral Tablet | [facility] | | | | | + + + + | 2022-10-08 00:00 | NAPROXEN | [facility] | + + + + | 2021-07-31 00:00 | OMEPRAZOLE | [facility] | + + + + | 2021-07-31 00:00 | OMEPRAZOLE | [facility] | + + + + | 2021-07-31 00:00 | omeprazole 20 MG Delayed | [facility] | | | Release Oral Capsule | | + + + + | 2023-03-12 00:00 | ONDANSETRON HCL | [facility] | + + + + | 2023-03-12 00:00 | ONDANSETRON HCL | [facility] | + + + + | 2022-06-22 00:00 | CEFDINIR | [facility] | + + + + | 2022-06-22 00:00 | CEFDINIR | [facility] | + + + + | 2022-09-14 00:00 | Metoprolol Succinate | [facility] | + + + + | 2022-09-23 00:00 | Metoprolol Succinate | [facility] | + + + + | 2022-10-08 00:00 | Metoprolol Succinate | [facility] | + + + + | 2022-10-11 00:00 | Metoprolol Succinate | [facility] | + + + + | 2022-10-30 00:00 | Metoprolol Succinate | [facility] | + + + + | 2022-11-24 00:00 | Metoprolol Succinate | [facility] | + + + + | 2022-12-10 00:00 | Metoprolol Succinate | [facility] | + + + + | 2023-01-03 00:00 | Metoprolol Succinate | [facility] | + + + + | 2023-01-05 00:00 | Metoprolol Succinate | [facility] | + + + + | 2023-01-21 00:00 | Metoprolol Succinate | [facility] | + + + + | 2023-01-27 00:00 | Metoprolol Succinate | [facility] | + + + + | 2023-02-02 00:00 | Metoprolol Succinate | [facility] | + + + + | 2023-02-11 00:00 | Metoprolol Succinate | [facility] | + + + + | 2023-02-23 00:00 | Metoprolol Succinate | [facility] | + + + + | 2023-03-05 00:00 | Metoprolol Succinate | [facility] | + + + + | 2023-03-12 00:00 | Metoprolol Succinate | [facility] | + + + + | 2023-03-20 00:00 | Metoprolol Succinate | [facility] | + + + + | 2023-04-08 00:00 | Metoprolol Succinate | [facility] | + + + + | 2023-04-09 00:00 | Metoprolol Succinate | [facility] | + + + + | 2022-03-23 00:00 | ESTRADIOL | [facility] | + + + + | 2022-03-25 00:00 | ESTRADIOL | [facility] | + + + + | 2022-03-27 00:00 | ESTRADIOL | [facility] | + + + + | 2022-03-28 00:00 | ESTRADIOL | [facility] | + + + + | 2022-06-18 00:00 | ESTRADIOL | [facility] | + + + + | 2022-06-22 00:00 | ESTRADIOL | [facility] | + + + + | 2022-07-03 00:00 | ESTRADIOL | [facility] | + + + + | 2022-07-08 00:00 | ESTRADIOL | [facility] | + + + + | 2022-07-29 00:00 | ESTRADIOL | [facility] | + + + + | 2022-08-03 00:00 | ESTRADIOL | [facility] | + + + + | 2022-08-05 00:00 | ESTRADIOL | [facility] | + + + + | 2022-08-17 00:00 | ESTRADIOL | [facility] | + + + + | 2022-09-14 00:00 | ESTRADIOL | [facility] | + + + + | 2022-09-23 00:00 | ESTRADIOL | [facility] | + + + + | 2022-10-08 00:00 | ESTRADIOL | [facility] | + + + + | 2022-10-11 00:00 | ESTRADIOL | [facility] | + + + + | 2022-10-30 00:00 | ESTRADIOL | [facility] | + + + + | 2022-11-24 00:00 | ESTRADIOL | [facility] | + + + + | 2022-12-10 00:00 | ESTRADIOL | [facility] | + + + + | 2023-01-03 00:00 | ESTRADIOL | [facility] | + + + + | 2023-01-05 00:00 | ESTRADIOL | [facility] | + + + + | 2023-01-21 00:00 | ESTRADIOL | [facility] | + + + + | 2023-01-27 00:00 | ESTRADIOL | [facility] | + + + + | 2023-02-02 00:00 | ESTRADIOL | [facility] | + + + + | 2023-02-11 00:00 | ESTRADIOL | [facility] | + + + + | 2023-02-23 00:00 | ESTRADIOL | [facility] | + + + + | 2023-03-05 00:00 | ESTRADIOL | [facility] | + + + + | 2023-03-12 00:00 | ESTRADIOL | [facility] | + + + + | 2023-03-20 00:00 | ESTRADIOL | [facility] | + + + + | 2023-04-08 00:00 | ESTRADIOL | [facility] | + + + + | 2023-04-09 00:00 | ESTRADIOL | [facility] | + + + + | 2023-05-05 00:00 | ESTRADIOL | [facility] | + + + + | 2022-03-22 00:00 | estradiol 1 MG Oral Tablet | [facility] | | | [Estrace] | | + + + + | 2022-10-06 00:00 | FLUCONAZOLE | [facility] | + + + + | 2021-07-31 00:00 | METOCLOPRAMIDE HCL | [facility] | + + + + | 2021-07-31 00:00 | METOCLOPRAMIDE HCL | [facility] | + + + + | 2021-07-31 00:00 | metoclopramide 10 MG Oral | [facility] | | | Tablet [Reglan] | | + + + + | 2022-06-22 00:00 | Cholecalciferol (Vitamin | [facility] | | | D3) | | + + + + | 2022-07-03 00:00 | Cholecalciferol (Vitamin | [facility] | | | D3) | | + + + + | 2022-07-08 00:00 | Cholecalciferol (Vitamin | [facility] | | | D3) | | + + + + | 2022-07-29 00:00 | Cholecalciferol (Vitamin | [facility] | | | D3) | | + + + + | 2022-08-03 00:00 | Cholecalciferol (Vitamin | [facility] | | | D3) | | + + + + | 2022-08-05 00:00 | Cholecalciferol (Vitamin | [facility] | | | D3) | | + + + + | 2022-03-23 00:00 | ASCORBIC ACID | [facility] | + + + + | 2022-03-25 00:00 | ASCORBIC ACID | [facility] | + + + + | 2022-03-27 00:00 | ASCORBIC ACID | [facility] | + + + + | 2022-03-28 00:00 | ASCORBIC ACID | [facility] | + + + + | 2022-06-18 00:00 | ASCORBIC ACID | [facility] | + + + + | 2022-06-22 00:00 | ASCORBIC ACID | [facility] | + + + + | 2022-07-03 00:00 | ASCORBIC ACID | [facility] | + + + + | 2022-07-08 00:00 | ASCORBIC ACID | [facility] | + + + + | 2022-07-29 00:00 | ASCORBIC ACID | [facility] | + + + + | 2022-08-03 00:00 | ASCORBIC ACID | [facility] | + + + + | 2022-08-05 00:00 | ASCORBIC ACID | [facility] | + + + + | 2022-08-17 00:00 | ASCORBIC ACID | [facility] | + + + + | 2022-09-14 00:00 | ASCORBIC ACID | [facility] | + + + + | 2022-09-23 00:00 | ASCORBIC ACID | [facility] | + + + + | 2022-10-08 00:00 | ASCORBIC ACID | [facility] | + + + + | 2022-10-11 00:00 | ASCORBIC ACID | [facility] | + + + + | 2022-10-30 00:00 | ASCORBIC ACID | [facility] | + + + + | 2022-11-24 00:00 | ASCORBIC ACID | [facility] | + + + + | 2022-12-10 00:00 | ASCORBIC ACID | [facility] | + + + + | 2023-01-03 00:00 | ASCORBIC ACID | [facility] | + + + + | 2023-01-05 00:00 | ASCORBIC ACID | [facility] | + + + + | 2023-01-21 00:00 | ASCORBIC ACID | [facility] | + + + + | 2023-01-27 00:00 | ASCORBIC ACID | [facility] | + + + + | 2023-02-02 00:00 | ASCORBIC ACID | [facility] | + + + + | 2023-02-11 00:00 | ASCORBIC ACID | [facility] | + + + + | 2023-02-23 00:00 | ASCORBIC ACID | [facility] | + + + + | 2023-03-05 00:00 | ASCORBIC ACID | [facility] | + + + + | 2023-03-12 00:00 | ASCORBIC ACID | [facility] | + + + + | 2023-03-20 00:00 | ASCORBIC ACID | [facility] | + + + + | 2023-04-08 00:00 | ASCORBIC ACID | [facility] | + + + + | 2023-04-09 00:00 | ASCORBIC ACID | [facility] | + + + + | 2023-05-05 00:00 | ASCORBIC ACID | [facility] | + + + + | 2022-03-22 00:00 | ascorbic acid 500 MG Oral | [facility] | | | Tablet | | + + + + | 2022-03-23 00:00 | AMLODIPINE BESYLATE | [facility] | + + + + | 2022-03-25 00:00 | AMLODIPINE BESYLATE | [facility] | + + + + | 2022-03-27 00:00 | AMLODIPINE BESYLATE | [facility] | + + + + | 2022-03-28 00:00 | AMLODIPINE BESYLATE | [facility] | + + + + | 2022-06-18 00:00 | AMLODIPINE BESYLATE | [facility] | + + + + | 2022-06-22 00:00 | AMLODIPINE BESYLATE | [facility] | + + + + | 2022-07-03 00:00 | AMLODIPINE BESYLATE | [facility] | + + + + | 2022-07-08 00:00 | AMLODIPINE BESYLATE | [facility] | + + + + | 2022-07-29 00:00 | AMLODIPINE BESYLATE | [facility] | + + + + | 2022-08-03 00:00 | AMLODIPINE BESYLATE | [facility] | + + + + | 2022-08-05 00:00 | AMLODIPINE BESYLATE | [facility] | + + + + | 2022-08-17 00:00 | AMLODIPINE BESYLATE | [facility] | + + + + | 2022-09-14 00:00 | AMLODIPINE BESYLATE | [facility] | + + + + | 2022-09-23 00:00 | AMLODIPINE BESYLATE | [facility] | + + + + | 2022-10-08 00:00 | AMLODIPINE BESYLATE | [facility] | + + + + | 2022-10-11 00:00 | AMLODIPINE BESYLATE | [facility] | + + + + | 2022-10-30 00:00 | AMLODIPINE BESYLATE | [facility] | + + + + | 2022-11-24 00:00 | AMLODIPINE BESYLATE | [facility] | + + + + | 2022-12-10 00:00 | AMLODIPINE BESYLATE | [facility] | + + + + | 2023-01-03 00:00 | AMLODIPINE BESYLATE | [facility] | + + + + | 2023-01-05 00:00 | AMLODIPINE BESYLATE | [facility] | + + + + | 2023-01-21 00:00 | AMLODIPINE BESYLATE | [facility] | + + + + | 2023-01-27 00:00 | AMLODIPINE BESYLATE | [facility] | + + + + | 2023-02-02 00:00 | AMLODIPINE BESYLATE | [facility] | + + + + | 2023-02-11 00:00 | AMLODIPINE BESYLATE | [facility] | + + + + | 2023-02-23 00:00 | AMLODIPINE BESYLATE | [facility] | + + + + | 2023-03-05 00:00 | AMLODIPINE BESYLATE | [facility] | + + + + | 2023-03-12 00:00 | AMLODIPINE BESYLATE | [facility] | + + + + | 2023-03-20 00:00 | AMLODIPINE BESYLATE | [facility] | + + + + | 2023-04-08 00:00 | AMLODIPINE BESYLATE | [facility] | + + + + | 2023-04-09 00:00 | AMLODIPINE BESYLATE | [facility] | + + + + | 2023-05-05 00:00 | AMLODIPINE BESYLATE | [facility] | + + + + | 2022-03-22 00:00 | amlodipine 2.5 MG Oral | [facility] | | | Tablet | | + + + + | 2021-03-01 00:00 | CEPHALEXIN | [facility] | + + + + | 2021-03-01 00:00 | CEPHALEXIN | [facility] | + + + + | 2021-07-14 00:00 | CEPHALEXIN | [facility] | + + + + | 2021-07-14 00:00 | CEPHALEXIN | [facility] | + + + + | 2021-10-25 00:00 | CEPHALEXIN | [facility] | + + + + | 2021-10-25 00:00 | CEPHALEXIN | [facility] | + + + + | 2022-02-14 00:00 | CEPHALEXIN | [facility] | + + + + | 2022-02-14 00:00 | CEPHALEXIN | [facility] | + + + + | 2021-03-01 00:00 | cephalexin 500 MG Oral | [facility] | | | Capsule | | + + + + | 2021-07-14 00:00 | cephalexin 500 MG Oral | [facility] | | | Capsule | | + + + + | 2021-10-25 00:00 | cephalexin 500 MG Oral | [facility] | | | Capsule | | + + + + | 2022-02-14 00:00 | cephalexin 500 MG Oral | [facility] | | | Capsule | | + + + + | 2023-05-05 00:00 | FERROUS SULFATE | [facility] | + + + + | 2022-03-22 00:00 | Ferrous Sulfate | [facility] | + + + + | 2022-03-22 00:00 | ferrous sulfate 325 MG | [facility] | | | Oral Tablet | | + + + + | 2022-02-13 00:00 | ONDANSETRON | [facility] | + + + + | 2022-02-13 00:00 | ONDANSETRON | [facility] | + + + + | 2023-01-05 00:00 | ONDANSETRON | [facility] | + + + + | 2023-03-20 00:00 | ONDANSETRON | [facility] | + + + + | 2023-03-20 00:00 | ONDANSETRON | [facility] | + + + + | 2023-05-05 00:00 | ONDANSETRON | [facility] | + + + + | 2022-02-13 00:00 | ondansetron 8 MG | [facility] | | | Disintegrating Oral Tablet | | + + + + | 2022-03-18 00:00 | PROCHLORPERAZINE MALEATE | [facility] | + + + + | 2022-03-18 00:00 | prochlorperazine 5 MG Oral | [facility] | | | Tablet | | + + + + | 2022-03-23 00:00 | ACETAMINOPHEN | [facility] | + + + + | 2022-03-25 00:00 | ACETAMINOPHEN | [facility] | + + + + | 2022-03-27 00:00 | ACETAMINOPHEN | [facility] | + + + + | 2022-03-28 00:00 | ACETAMINOPHEN | [facility] | + + + + | 2022-03-22 00:00 | acetaminophen 325 MG Oral | [facility] | | | Tablet | | + + + + | 2022-03-23 00:00 | LISINOPRIL | [facility] | + + + + | 2022-03-25 00:00 | LISINOPRIL | [facility] | + + + + | 2022-03-27 00:00 | LISINOPRIL | [facility] | + + + + | 2022-03-28 00:00 | LISINOPRIL | [facility] | + + + + | 2022-06-18 00:00 | LISINOPRIL | [facility] | + + + + | 2022-06-22 00:00 | LISINOPRIL | [facility] | + + + + | 2022-07-03 00:00 | LISINOPRIL | [facility] | + + + + | 2022-07-08 00:00 | LISINOPRIL | [facility] | + + + + | 2022-07-29 00:00 | LISINOPRIL | [facility] | + + + + | 2022-08-03 00:00 | LISINOPRIL | [facility] | + + + + | 2022-08-05 00:00 | LISINOPRIL | [facility] | + + + + | 2022-08-17 00:00 | LISINOPRIL | [facility] | + + + + | 2022-09-14 00:00 | LISINOPRIL | [facility] | + + + + | 2022-09-23 00:00 | LISINOPRIL | [facility] | + + + + | 2022-10-08 00:00 | LISINOPRIL | [facility] | + + + + | 2022-10-11 00:00 | LISINOPRIL | [facility] | + + + + | 2022-10-30 00:00 | LISINOPRIL | [facility] | + + + + | 2022-11-24 00:00 | LISINOPRIL | [facility] | + + + + | 2022-12-10 00:00 | LISINOPRIL | [facility] | + + + + | 2023-01-03 00:00 | LISINOPRIL | [facility] | + + + + | 2023-01-05 00:00 | LISINOPRIL | [facility] | + + + + | 2023-01-21 00:00 | LISINOPRIL | [facility] | + + + + | 2023-01-27 00:00 | LISINOPRIL | [facility] | + + + + | 2023-02-02 00:00 | LISINOPRIL | [facility] | + + + + | 2023-02-11 00:00 | LISINOPRIL | [facility] | + + + + | 2023-02-23 00:00 | LISINOPRIL | [facility] | + + + + | 2023-03-05 00:00 | LISINOPRIL | [facility] | + + + + | 2023-03-12 00:00 | LISINOPRIL | [facility] | + + + + | 2023-03-20 00:00 | LISINOPRIL | [facility] | + + + + | 2023-04-08 00:00 | LISINOPRIL | [facility] | + + + + | 2023-04-09 00:00 | LISINOPRIL | [facility] | + + + + | 2023-05-05 00:00 | LISINOPRIL | [facility] | + + + + | 2022-03-22 00:00 | lisinopril 10 MG Oral | [facility] | | | Tablet | | + + + + | 2022-03-22 00:00 | METRONIDAZOLE | [facility] | + + + + | 2022-03-22 00:00 | metronidazole 250 MG Oral | [facility] | | | Tablet | | + + + + | 2022-06-22 00:00 | FENOFIBRATE | [facility] | + + + + | 2022-07-03 00:00 | FENOFIBRATE | [facility] | + + + + | 2022-07-08 00:00 | FENOFIBRATE | [facility] | + + + + | 2022-07-29 00:00 | FENOFIBRATE | [facility] | + + + + | 2022-08-03 00:00 | FENOFIBRATE | [facility] | + + + + | 2022-08-05 00:00 | FENOFIBRATE | [facility] | + + + + | 2022-08-17 00:00 | FENOFIBRATE | [facility] | + + + + | 2022-09-14 00:00 | FENOFIBRATE | [facility] | + + + + | 2022-09-23 00:00 | FENOFIBRATE | [facility] | + + + + | 2022-10-08 00:00 | FENOFIBRATE | [facility] | + + + + | 2022-10-11 00:00 | FENOFIBRATE | [facility] | + + + + | 2022-10-30 00:00 | FENOFIBRATE | [facility] | + + + + | 2022-11-24 00:00 | FENOFIBRATE | [facility] | + + + + | 2022-12-10 00:00 | FENOFIBRATE | [facility] | + + + + | 2023-01-03 00:00 | FENOFIBRATE | [facility] | + + + + | 2023-01-05 00:00 | FENOFIBRATE | [facility] | + + + + | 2023-01-21 00:00 | FENOFIBRATE | [facility] | + + + + | 2023-01-27 00:00 | FENOFIBRATE | [facility] | + + + + | 2023-02-02 00:00 | FENOFIBRATE | [facility] | + + + + | 2023-02-11 00:00 | FENOFIBRATE | [facility] | + + + + | 2023-02-23 00:00 | FENOFIBRATE | [facility] | + + + + | 2023-03-05 00:00 | FENOFIBRATE | [facility] | + + + + | 2023-03-12 00:00 | FENOFIBRATE | [facility] | + + + + | 2023-03-20 00:00 | FENOFIBRATE | [facility] | + + + + | 2023-04-08 00:00 | FENOFIBRATE | [facility] | + + + + | 2023-04-09 00:00 | FENOFIBRATE | [facility] | + + + + | 2022-03-23 00:00 | Fenofibrate | [facility] | | | Nanocrystallized | | + + + + | 2022-03-25 00:00 | Fenofibrate | [facility] | | | Nanocrystallized | | + + + + | 2022-03-27 00:00 | Fenofibrate | [facility] | | | Nanocrystallized | | + + + + | 2022-03-28 00:00 | Fenofibrate | [facility] | | | Nanocrystallized | | + + + + | 2022-06-18 00:00 | Fenofibrate | [facility] | | | Nanocrystallized | | + + + + | 2022-06-22 00:00 | Fenofibrate | [facility] | | | Nanocrystallized | | + + + + | 2022-07-03 00:00 | Fenofibrate | [facility] | | | Nanocrystallized | | + + + + | 2022-07-08 00:00 | Fenofibrate | [facility] | | | Nanocrystallized | | + + + + | 2022-07-29 00:00 | Fenofibrate | [facility] | | | Nanocrystallized | | + + + + | 2022-08-03 00:00 | Fenofibrate | [facility] | | | Nanocrystallized | | + + + + | 2022-08-05 00:00 | Fenofibrate | [facility] | | | Nanocrystallized | | + + + + | 2022-08-17 00:00 | Fenofibrate | [facility] | | | Nanocrystallized | | + + + + | 2022-09-14 00:00 | Fenofibrate | [facility] | | | Nanocrystallized | | + + + + | 2022-09-23 00:00 | Fenofibrate | [facility] | | | Nanocrystallized | | + + + + | 2022-10-08 00:00 | Fenofibrate | [facility] | | | Nanocrystallized | | + + + + | 2022-10-11 00:00 | Fenofibrate | [facility] | | | Nanocrystallized | | + + + + | 2022-10-30 00:00 | Fenofibrate | [facility] | | | Nanocrystallized | | + + + + | 2022-11-24 00:00 | Fenofibrate | [facility] | | | Nanocrystallized | | + + + + | 2022-12-10 00:00 | Fenofibrate | [facility] | | | Nanocrystallized | | + + + + | 2023-01-03 00:00 | Fenofibrate | [facility] | | | Nanocrystallized | | + + + + | 2023-01-05 00:00 | Fenofibrate | [facility] | | | Nanocrystallized | | + + + + | 2023-01-21 00:00 | Fenofibrate | [facility] | | | Nanocrystallized | | + + + + | 2023-01-27 00:00 | Fenofibrate | [facility] | | | Nanocrystallized | | + + + + | 2023-02-02 00:00 | Fenofibrate | [facility] | | | Nanocrystallized | | + + + + | 2023-02-11 00:00 | Fenofibrate | [facility] | | | Nanocrystallized | | + + + + | 2023-02-23 00:00 | Fenofibrate | [facility] | | | Nanocrystallized | | + + + + | 2023-03-05 00:00 | Fenofibrate | [facility] | | | Nanocrystallized | | + + + + | 2023-03-12 00:00 | Fenofibrate | [facility] | | | Nanocrystallized | | + + + + | 2023-03-20 00:00 | Fenofibrate | [facility] | | | Nanocrystallized | | + + + + | 2023-04-08 00:00 | Fenofibrate | [facility] | | | Nanocrystallized | | + + + + | 2023-04-09 00:00 | Fenofibrate | [facility] | | | Nanocrystallized | | + + + + | 2023-05-05 00:00 | Fenofibrate | [facility] | | | Nanocrystallized | | + + + + | 2022-03-22 00:00 | fenofibrate 160 MG Oral | [facility] | | | Tablet | | + + + + | 2023-05-05 00:00 | FENOFIBRATE | [facility] | + + + + | 2016-02-03 00:00 | CIPROFLOXACIN HCL/DEXAMETH | [facility] | | | | | + + + + | 2016-02-03 00:00 | CIPROFLOXACIN HCL/DEXAMETH | [facility] | | | | | + + + + | 2016-02-03 00:00 | ciprofloxacin 3 MG/ML / | [facility] | | | dexamethasone 1 MG/ML Otic | | | | Suspensio | | + + + + | 2022-03-18 00:00 | FENOFIBRATE | [facility] | | | NANOCRYSTALLIZED | | + + + + | 2022-03-18 00:00 | fenofibrate 48 MG Oral | [facility] | | | Tablet | | + + + + | 2022-09-23 00:00 | NITROFURANTOIN MONOHYD | [facility] | | | MACROCR | | + + + + | 2022-03-22 00:00 | 3 ML insulin glargine 100 | [facility] | | | UNT/ML Pen Injector | | | | [Lantus] | | + + + + | 2022-03-23 00:00 | INSULIN | [facility] | | | [facility] | | + + + + | 2022-03-25 00:00 | INSULIN | [facility] | | | GLARDAWOODE,[facility].REC.ANLOG | | + + + + | 2022-03-27 00:00 | INSULIN | [facility] | | | GLARDAWOODE,[facility].REC.ANLOG | | + + + + | 2022-03-28 00:00 | INSULIN | [facility] | | | GLARGINE,HUM.REC.ANLOG | | + + + + | 2022-06-18 00:00 | INSULIN | [facility] | | | GLARGINE,HUM.REC.ANLOG | | + + + + | 2022-06-22 00:00 | INSULIN | [facility] | | | GLARGINE,HUM.REC.ANLOG | | + + + + | 2022-07-03 00:00 | INSULIN | [facility] | | | GLARGINE,HUM.REC.ANLOG | | + + + + | 2022-07-08 00:00 | INSULIN | [facility] | | | GLARGINE,HUM.REC.ANLOG | | + + + + | 2022-07-29 00:00 | INSULIN | [facility] | | | [place] | | + + + + | 2022-08-03 00:00 | INSULIN | [facility] | | | [place] | | + + + + | 2022-08-05 00:00 | INSULIN | [facility] | | | VIVIANHUM.REC[place]LOG | | + + + + | 2022-08-17 00:00 | INSULIN | [facility] | | | GLAALESSIAHUM.REC[place]ANLOG | | + + + + | 2022-09-14 00:00 | INSULIN | [facility] | | | GLARGINE,HUM.REC.ANLOG | | + + + + | 2022-09-23 00:00 | INSULIN | [facility] | | | GLARGINE,HUM.REC.ANLOG | | + + + + | 2022-10-08 00:00 | INSULIN | [facility] | | | GLARGINE,[facility].REC.ANLOG | | + + + + | 2022-10-11 00:00 | INSULIN | [facility] | | | GLARGINE,HUM.REC.ANLOG | | + + + + | 2022-10-30 00:00 | INSULIN | [facility] | | | GLARGINE,HUM.REC.ANLOG | | + + + + | 2022-11-24 00:00 | INSULIN | [facility] | | | GLARGINE,HUM.REC.ANLOG | | + + + + | 2022-12-10 00:00 | INSULIN | [facility] | | | GLARGINE,HUM.REC.ANLOG | | + + + + | 2023-01-03 00:00 | INSULIN | [facility] | | | GLARGINE,HUM.REC.ANLOG | | + + + + | 2023-01-05 00:00 | INSULIN | [facility] | | | GLARGINE,HUM.REC.ANLOG | | + + + + | 2023-01-21 00:00 | INSULIN | [facility] | | | [facility] | | + + + + | 2023-01-27 00:00 | INSULIN | [facility] | | | HUM. [place] | | + + + + | 2023-02-02 00:00 | INSULIN | [facility] | | | HUM. [place] | | + + + + | 2023-02-11 00:00 | INSULIN | [facility] | | | GLAALESSIAHUM.REC[place]ANLOG | | + + + + | 2023-02-23 00:00 | INSULIN | [facility] | | | GLARGINE,HUM.REC.ANLOG | | + + + + | 2023-03-05 00:00 | INSULIN | [facility] | | | GLARGINE,HUM.REC.ANLOG | | + + + + | 2023-03-12 00:00 | INSULIN | [facility] | | | GLARGINE,HUM.REC.ANLOG | | + + + + | 2023-03-20 00:00 | INSULIN | [facility] | | | GLARGINE,HUM.REC.ANLOG | | + + + + | 2023-04-08 00:00 | INSULIN | [facility] | | | GLARGINE,HUM.REC.ANLOG | | + + + + | 2023-04-09 00:00 | INSULIN | [facility] | | | GLAALESSIA,HUM.REC.ANLOG | | + + + + | 2023-05-05 00:00 | INSULIN | [facility] | | | GLAFARRUKHE,HUM.REC.ANLOG | | + + + + | 2022-03-22 00:00 | 3 ML insulin detemir 100 | [facility] | | | UNT/ML Pen Injector | | | | [Levemir] | | + + + + | 2022-03-23 00:00 | INSULIN DETEMIR | [facility] | + + + + | 2022-03-25 00:00 | INSULIN DETEMIR | [facility] | + + + + | 2022-03-27 00:00 | INSULIN DETEMIR | [facility] | + + + + | 2022-03-28 00:00 | INSULIN DETEMIR | [facility] | + + + + | 2022-06-18 00:00 | INSULIN DETEMIR | [facility] | + + + + | 2022-06-22 00:00 | INSULIN DETEMIR | [facility] | + + + + | 2022-07-03 00:00 | INSULIN DETEMIR | [facility] | + + + + | 2022-07-08 00:00 | INSULIN DETEMIR | [facility] | + + + + | 2022-07-29 00:00 | INSULIN DETEMIR | [facility] | + + + + | 2022-08-03 00:00 | INSULIN DETEMIR | [facility] | + + + + | 2022-08-05 00:00 | INSULIN DETEMIR | [facility] | + + + + | 2022-08-17 00:00 | INSULIN DETEMIR | [facility] | + + + + | 2022-09-14 00:00 | INSULIN DETEMIR | [facility] | + + + + | 2022-09-23 00:00 | INSULIN DETEMIR | [facility] | + + + + | 2022-10-08 00:00 | INSULIN DETEMIR | [facility] | + + + + | 2022-10-11 00:00 | INSULIN DETEMIR | [facility] | + + + + | 2022-10-30 00:00 | INSULIN DETEMIR | [facility] | + + + + | 2022-11-24 00:00 | INSULIN DETEMIR | [facility] | + + + + | 2022-12-10 00:00 | INSULIN DETEMIR | [facility] | + + + + | 2023-01-03 00:00 | INSULIN DETEMIR | [facility] | + + + + | 2023-01-05 00:00 | INSULIN DETEMIR | [facility] | + + + + | 2023-01-21 00:00 | INSULIN DETEMIR | [facility] | + + + + | 2023-01-27 00:00 | INSULIN DETEMIR | [facility] | + + + + | 2023-02-02 00:00 | INSULIN DETEMIR | [facility] | + + + + | 2023-02-11 00:00 | INSULIN DETEMIR | [facility] | + + + + | 2023-02-23 00:00 | INSULIN DETEMIR | [facility] | + + + + | 2023-03-05 00:00 | INSULIN DETEMIR | [facility] | + + + + | 2023-03-12 00:00 | INSULIN DETEMIR | [facility] | + + + + | 2023-03-20 00:00 | INSULIN DETEMIR | [facility] | + + + + | 2023-04-08 00:00 | INSULIN DETEMIR | [facility] | + + + + | 2023-04-09 00:00 | INSULIN DETEMIR | [facility] | + + + + | 2023-05-05 00:00 | INSULIN DETEMIR | [facility] | + + + + | 2021-01-22 00:00 | HYDROCODONE | [facility] | | | BIT/ACETAMINOPHEN | | + + + + | 2021-01-22 00:00 | HYDROCODONE | [facility] | | | BIT/ACETAMINOPHEN | | + + + + | 2022-12-10 00:00 | HYDROCODONE | [facility] | | | BIT/ACETAMINOPHEN | | + + + + | 2021-01-22 00:00 | acetaminophen 325 MG / | [facility] | | | hydrocodone bitartrate 5 MG | | | | Oral Tabl | | + + + + | 2022-03-23 00:00 | ROSUVASTATIN CALCIUM | [facility] | + + + + | 2022-03-25 00:00 | ROSUVASTATIN CALCIUM | [facility] | + + + + | 2022-03-27 00:00 | ROSUVASTATIN CALCIUM | [facility] | + + + + | 2022-03-28 00:00 | ROSUVASTATIN CALCIUM | [facility] | + + + + | 2022-06-18 00:00 | ROSUVASTATIN CALCIUM | [facility] | + + + + | 2022-06-22 00:00 | ROSUVASTATIN CALCIUM | [facility] | + + + + | 2022-06-22 00:00 | ROSUVASTATIN CALCIUM | [facility] | + + + + | 2022-07-03 00:00 | ROSUVASTATIN CALCIUM | [facility] | + + + + | 2022-07-08 00:00 | ROSUVASTATIN CALCIUM | [facility] | + + + + | 2022-07-29 00:00 | ROSUVASTATIN CALCIUM | [facility] | + + + + | 2022-08-03 00:00 | ROSUVASTATIN CALCIUM | [facility] | + + + + | 2022-08-05 00:00 | ROSUVASTATIN CALCIUM | [facility] | + + + + | 2022-08-17 00:00 | ROSUVASTATIN CALCIUM | [facility] | + + + + | 2022-09-14 00:00 | ROSUVASTATIN CALCIUM | [facility] | + + + + | 2022-09-23 00:00 | ROSUVASTATIN CALCIUM | [facility] | + + + + | 2022-10-08 00:00 | ROSUVASTATIN CALCIUM | [facility] | + + + + | 2022-10-11 00:00 | ROSUVASTATIN CALCIUM | [facility] | + + + + | 2022-10-30 00:00 | ROSUVASTATIN CALCIUM | [facility] | + + + + | 2022-11-24 00:00 | ROSUVASTATIN CALCIUM | [facility] | + + + + | 2022-12-10 00:00 | ROSUVASTATIN CALCIUM | [facility] | + + + + | 2023-01-03 00:00 | ROSUVASTATIN CALCIUM | [facility] | + + + + | 2023-01-05 00:00 | ROSUVASTATIN CALCIUM | [facility] | + + + + | 2023-01-21 00:00 | ROSUVASTATIN CALCIUM | [facility] | + + + + | 2023-01-27 00:00 | ROSUVASTATIN CALCIUM | [facility] | + + + + | 2023-02-02 00:00 | ROSUVASTATIN CALCIUM | [facility] | + + + + | 2023-02-11 00:00 | ROSUVASTATIN CALCIUM | [facility] | + + + + | 2023-02-23 00:00 | ROSUVASTATIN CALCIUM | [facility] | + + + + | 2023-03-05 00:00 | ROSUVASTATIN CALCIUM | [facility] | + + + + | 2023-03-12 00:00 | ROSUVASTATIN CALCIUM | [facility] | + + + + | 2023-03-20 00:00 | ROSUVASTATIN CALCIUM | [facility] | + + + + | 2023-04-08 00:00 | ROSUVASTATIN CALCIUM | [facility] | + + + + | 2023-04-09 00:00 | ROSUVASTATIN CALCIUM | [facility] | + + + + | 2023-05-05 00:00 | ROSUVASTATIN CALCIUM | [facility] | + + + + | 2022-03-22 00:00 | rosuvastatin calcium 10 MG | [facility] | | | Oral Tablet [Crestor] | | + + + + | 2021-01-22 00:00 | TAMSULOSIN HCL | [facility] | + + + + | 2021-01-22 00:00 | TAMSULOSIN HCL | [facility] | + + + + | 2021-01-22 00:00 | tamsulosin hydrochloride | [facility] | | | 0.4 MG Oral Capsule | | | | [Flomax] | | + + + + | 2022-03-23 00:00 | LIPASE/PROTEASE/AMYLASE | [facility] | + + + + | 2022-03-25 00:00 | LIPASE/PROTEASE/AMYLASE | [facility] | + + + + | 2022-03-27 00:00 | LIPASE/PROTEASE/AMYLASE | [facility] | + + + + | 2022-03-28 00:00 | LIPASE/PROTEASE/AMYLASE | [facility] | + + + + | 2022-06-18 00:00 | LIPASE/PROTEASE/AMYLASE | [facility] | + + + + | 2022-06-22 00:00 | LIPASE/PROTEASE/AMYLASE | [facility] | + + + + | 2022-07-03 00:00 | LIPASE/PROTEASE/AMYLASE | [facility] | + + + + | 2022-07-08 00:00 | LIPASE/PROTEASE/AMYLASE | [facility] | + + + + | 2022-07-29 00:00 | LIPASE/PROTEASE/AMYLASE | [facility] | + + + + | 2022-08-03 00:00 | LIPASE/PROTEASE/AMYLASE | [facility] | + + + + | 2022-08-05 00:00 | LIPASE/PROTEASE/AMYLASE | [facility] | + + + + | 2022-08-17 00:00 | LIPASE/PROTEASE/AMYLASE | [facility] | + + + + | 2022-09-14 00:00 | LIPASE/PROTEASE/AMYLASE | [facility] | + + + + | 2022-09-23 00:00 | LIPASE/PROTEASE/AMYLASE | [facility] | + + + + | 2022-10-08 00:00 | LIPASE/PROTEASE/AMYLASE | [facility] | + + + + | 2022-10-11 00:00 | LIPASE/PROTEASE/AMYLASE | [facility] | + + + + | 2022-10-30 00:00 | LIPASE/PROTEASE/AMYLASE | [facility] | + + + + | 2022-11-24 00:00 | LIPASE/PROTEASE/AMYLASE | [facility] | + + + + | 2022-12-10 00:00 | LIPASE/PROTEASE/AMYLASE | [facility] | + + + + | 2023-01-03 00:00 | LIPASE/PROTEASE/AMYLASE | [facility] | + + + + | 2023-01-05 00:00 | LIPASE/PROTEASE/AMYLASE | [facility] | + + + + | 2023-01-21 00:00 | LIPASE/PROTEASE/AMYLASE | [facility] | + + + + | 2023-01-27 00:00 | LIPASE/PROTEASE/AMYLASE | [facility] | + + + + | 2023-02-02 00:00 | LIPASE/PROTEASE/AMYLASE | [facility] | + + + + | 2023-02-11 00:00 | LIPASE/PROTEASE/AMYLASE | [facility] | + + + + | 2023-02-23 00:00 | LIPASE/PROTEASE/AMYLASE | [facility] | + + + + | 2023-03-05 00:00 | LIPASE/PROTEASE/AMYLASE | [facility] | + + + + | 2023-03-12 00:00 | LIPASE/PROTEASE/AMYLASE | [facility] | + + + + | 2023-03-20 00:00 | LIPASE/PROTEASE/AMYLASE | [facility] | + + + + | 2023-04-08 00:00 | LIPASE/PROTEASE/AMYLASE | [facility] | + + + + | 2023-04-09 00:00 | LIPASE/PROTEASE/AMYLASE | [facility] | + + + + | 2023-05-05 00:00 | LIPASE/PROTEASE/AMYLASE | [facility] | + + + + | 2022-03-22 00:00 | amylase [id number] UNT / lipase | [facility] | | | 6000 UNT / protease [id number] | | | | UNT Del | | + + + + | 2023-05-05 00:00 | METOPROLOL SUCCINATE | [facility] | + + + + | 2023-01-05 00:00 | HYDROMORPHONE HCL | [facility] | + + + + | 2022-11-24 00:00 | DICYCLOMINE HCL | [facility] | + + + + | 2022-12-10 00:00 | DICYCLOMINE HCL | [facility] | + + + + | 2023-01-03 00:00 | DICYCLOMINE HCL | [facility] | + + + + | 2023-01-05 00:00 | DICYCLOMINE HCL | [facility] | + + + + | 2023-01-21 00:00 | DICYCLOMINE HCL | [facility] | + + + + | 2023-01-27 00:00 | DICYCLOMINE HCL | [facility] | + + + + | 2023-02-02 00:00 | DICYCLOMINE HCL | [facility] | + + + + | 2023-02-11 00:00 | DICYCLOMINE HCL | [facility] | + + + + | 2023-02-23 00:00 | DICYCLOMINE HCL | [facility] | + + + + | 2023-03-05 00:00 | DICYCLOMINE HCL | [facility] | + + + + | 2023-03-12 00:00 | DICYCLOMINE HCL | [facility] | + + + + | 2023-03-20 00:00 | DICYCLOMINE HCL | [facility] | + + + + | 2023-04-08 00:00 | DICYCLOMINE HCL | [facility] | + + + + | 2023-04-09 00:00 | DICYCLOMINE HCL | [facility] | + + + + | 2023-05-05 00:00 | DICYCLOMINE HCL | [facility] | + + + + Problems + + + + | date | description | facility | + + + + | 2014-05-31 00:00 | DKA (diabetic | [facility] | | | ketoacidoses) | | + + + + | 2014-05-31 00:00 | Sepsis | [facility] | + + + + | 2014-05-31 00:00 | Sepsis | [facility] | + + + + | 2014-05-31 00:00 | Diabetes mellitus with | [facility] | | | ketoacidosis | | + + + + | 2014-05-31 00:00 | Diabetes mellitus with | [facility] | | | ketoacidosis | | + + + + | 2014-05-31 00:00 | Dehydration | [facility] | + + + + | 2014-05-31 00:00 | Dehydration | [facility] | + + + + | 2016-02-03 00:00 | Bilateral otitis externa | [facility] | + + + + | 2016-02-03 00:00 | Bilateral otitis externa | [facility] | + + + + | 2016-02-03 00:00 | Acute otitis media of both | [facility] | | | ears with perforation | | + + + + | 2016-02-03 00:00 | Acute otitis media of both | [facility] | | | ears with perforation | | + + + + | 2018-01-03 00:00 | DKA (diabetic | [facility] | | | ketoacidoses) | | + + + + | 2018-01-03 00:00 | Diabetic ketoacidosis | [facility] | + + + + | 2018-01-03 00:00 | Diabetic ketoacidosis | [facility] | + + + + | 2018-01-03 00:00 | Hypertriglyceridemia | [facility] | + + + + | 2018-01-03 00:00 | Hypertriglyceridemia | [facility] | + + + + | 2018-01-03 00:00 | Hypokalemia | [facility] | + + + + | 2018-01-03 00:00 | Hypokalemia | [facility] | + + + + | 2018-01-03 00:00 | Pancreatitis | [facility] | + + + + | 2018-01-03 00:00 | Pancreatitis | [facility] | + + + + | 2018-03-14 00:00 | DKA, type 1 | [facility] | + + + + | 2018-03-14 00:00 | Type 1 diabetes mellitus | [facility] | | | with ketoacidosis | | + + + + | 2018-03-14 00:00 | Type 1 diabetes mellitus | [facility] | | | with ketoacidosis | | + + + + | 2019-03-18 00:00 | Chest wall pain | [facility] | + + + + | 2019-03-18 00:00 | Chest wall pain | [facility] | + + + + | 2021-01-20 00:00 | Urinary retention | [facility] | + + + + | 2021-01-20 00:00 | Retention of urine | [facility] | + + + + | 2021-01-20 00:00 | Retention of urine | [facility] | + + + + | 2021-01-20 00:00 | Hyperglycemia | [facility] | + + + + | 2021-01-20 00:00 | Hyperglycemia | [facility] | + + + + | 2021-01-29 00:00 | Encounter for medical | [facility] | | | screening examination | | + + + + | 2021-01-29 00:00 | Encounter for medical | [facility] | | | screening examination | | + + + + | 2021-01-29 00:00 | Encounter for Ellis | [facility] | | | catheter removal | | + + + + | 2021-01-29 00:00 | Encounter for Ellis | [facility] | | | catheter removal | | + + + + | 2021-02-02 00:00 | Abdominal pain | [facility] | + + + + | 2021-02-02 00:00 | Abdominal pain | [facility] | + + + + | 2021-02-02 00:00 | Nausea and vomiting | [facility] | + + + + | 2021-02-02 00:00 | Nausea and vomiting | [facility] | + + + + | 2021-03-01 00:00 | UTI (urinary tract | [facility] | | | infection) | | + + + + | 2021-03-01 00:00 | Urinary tract infection | [facility] | + + + + | 2021-03-01 00:00 | Urinary tract infection | [facility] | + + + + | 2021-07-21 00:00 | Acute chest wall pain | [facility] | + + + + | 2021-07-21 00:00 | Acute chest wall pain | [facility] | + + + + | 2021-07-31 00:00 | Acute gastritis | [facility] | + + + + | 2021-07-31 00:00 | Acute gastritis | [facility] | + + + + | 2021-07-31 [...] + + | 2021-07-31 11:38 | OTHER [facility] (CURRENT) | [facility] | | | DRUG [...] + + + | 2021-09-09 20:54 | [facility] (CURRENT) USE OF | [facility] | | | INSULIN | | + + + + | 2021-09-09 20:54 | 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) | [facility] | | | DRUG [...] 2021-09-27 00:00 | Allergic reaction caused | [facility] | | | by a drug | | + + + + | 2021-09-27 00:00 | Allergic reaction to drug | [facility] | + + + + | 2021-09-27 00:00 | Allergic reaction to drug | [facility] | + + + + | 2021-09-27 [...] EFFECT OF | [facility] | | | [id number] | | | | INHIBITORS, INIT | | + + + + | 2021-09-27 21:10 | 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 OF | [facility] | | | INSULIN | | + + + + | 2021-09-27 21:10 | 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) | [facility] | | | DRUG [...] + + + | 2021-10-24 21:04 | [facility] (CURRENT) USE OF | [facility] | | | INSULIN | | + + + + | 2021-10-24 21:04 | 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) | [facility] | | | DRUG [...] + + + | 2021-11-02 23:59 | [facility] (CURRENT) USE OF | [facility] | | | INSULIN | | + + + + | 2021-11-02 23:59 | OTHER [facility] (CURRENT) | [facility] | | | DRUG [...] + | 2021-11-08 00:00 | Lightheaded | [facility] | + + + + | 2021-11-08 00:00 | Dyspnea | [facility] | + + + + | 2021-11-08 00:00 | Dyspnea | [facility] | + + + + | 2021-11-08 00:00 | Non-cardiac chest pain | [facility] | + + + + | 2021-11-08 00:00 | Non-cardiac chest pain | [facility] | + + + + | 2021-11-08 00:00 | Lightheadedness | [facility] | + + + + | 2021-11-08 00:00 | Lightheadedness | [facility] | + + + + | 2021-11-08 [...] + + + | 2021-11-08 00:36 | [facility] (CURRENT) USE OF | [facility] | | | ORAL HYPOGLYCEMIC DRUGS | | + + + + | 2021-11-08 00:36 | 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) | [facility] | | | DRUG [...] + + + | 2021-11-26 22:29 | 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 OF | [facility] | | | INSULIN | | + + + + | 2021-11-26 22:29 | OTHER [facility] (CURRENT) | [facility] | | | DRUG [...] 2021-11-27 00:00 | Insulin dependent diabetes | [facility] | | | mellitus | | + + + + | 2021-11-27 00:00 | Hypertension | [facility] | + + + + | 2021-11-27 00:00 | Hypertension | [facility] | + + + + | 2021-11-27 00:00 | Insulin dependent diabetes | [facility] | | | mellitus | | + + + + | 2021-11-27 00:00 | Resolved abdominal pain | [facility] | + + + + | 2021-11-27 00:00 | Resolved abdominal pain | [facility] | + + + + | 2021-12-04 [...] + + + | 2021-12-04 20:12 | [facility] (CURRENT) USE OF | [facility] | | | INSULIN | | + + + + | 2021-12-04 20:12 | 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) | [facility] | | | DRUG [...] 2021-12-05 00:00 | Hordeolum externum left | [facility] | | | lower eyelid | | + + + + | 2021-12-05 00:00 | Hordeolum externum of left | [facility] | | | lower eyelid | | + + + + | 2021-12-05 00:00 | Hordeolum externum of left | [facility] | | | lower eyelid | | + + + + | 2021-12-05 00:00 | Otitis externa | [facility] | + + + + | 2021-12-05 00:00 | Otitis externa | [facility] | + + + + | 2021-12-23 [...] + + + | 2021-12-23 14:51 | 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 OF | [facility] | | | INSULIN | | + + + + | 2021-12-23 14:51 | OTHER [facility] (CURRENT) | [facility] | | | DRUG [...] + + + | 2022-02-07 23:34 | [facility] (CURRENT) USE OF | [facility] | | | INSULIN | | + + + + | 2022-02-07 23:34 | OTHER [facility] (CURRENT) | [facility] | | | DRUG [...] 00:00 | Contusion of left knee | [facility] | + + + + | 2022-02-08 00:00 | Contusion of left knee | [facility] | + + + + | 2022-02-13 [...] + + + | 2022-02-13 20:21 | [facility] (CURRENT) USE OF | [facility] | | | INSULIN | | + + + + | 2022-02-13 20:21 | 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) | [facility] | | | DRUG [...] 2022-02-17 00:00 | Hypoglycemia due to | [facility] | | | insulin | | + + + + | 2022-02-17 00:00 | Hypoglycemic reaction to | [facility] | | | insulin | | + + + + | 2022-02-17 00:00 | Hypoglycemic reaction to | [facility] | | | insulin | | + [...] + + + | 2022-02-17 03:45 | [facility] (CURRENT) USE OF | [facility] | | [...] + + + | 2022-03-04 15:28 | 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 OF | [facility] | | | INSULIN | | + + + + | 2022-03-04 15:28 | OTHER [facility] (CURRENT) | [facility] | | | DRUG [...] 2022-03-07 00:00 | Upper abdominal pain | [facility] | + + + + | 2022-03-07 00:00 | Pain of upper abdomen | [facility] | + + + + | 2022-03-07 00:00 | Pain of upper abdomen | [facility] | + + + + | 2022-03-07 [...] + + + | 2022-03-07 00:39 | [facility] (CURRENT) USE OF | [facility] | | | INSULIN | | + + + + | 2022-03-07 00:39 | OTHER [facility] (CURRENT) | [facility] | | | DRUG [...] 2022-03-12 00:00 | Candidiasis of genitalia | [facility] | + + + + | 2022-03-12 00:00 | Candidiasis of genitalia | [facility] | + + + + | 2022-03-12 [...] + + + | 2022-03-12 02:19 | [facility] (CURRENT) USE OF | [facility] | | | INSULIN | | + + + + | 2022-03-12 02:19 | 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) | [facility] | | | DRUG [...] 2022-03-16 00:00 | CRI (chronic renal | [facility] | | | insufficiency) | | + + + + | 2022-03-16 00:00 | Diabetes | [facility] | + + + + | 2022-03-16 00:00 | Diabetes mellitus | [facility] | + + + + | 2022-03-16 00:00 | Diabetes mellitus | [facility] | + + + + | 2022-03-16 00:00 | Chronic renal impairment | [facility] | + + + + | 2022-03-16 00:00 | Chronic renal impairment | [facility] | + + + + | 2022-03-16 [...] + + | 2022-03-16 10:31 | 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.] | 2022-03-26 00:00 | Chest pain | [facility] | + + + + | 2022-03-26 00:00 | Chest pain | [facility] | + + + + | 2022-03-26 [...] + + + | 2022-03-26 06:58 | 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 OF | [facility] | | | INSULIN | | + + + + | 2022-03-26 06:58 | 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) | [facility] | | | DRUG [...] | 2022-04-21 00:00 | Epigastric pain | [facility] | + + + + | 2022-04-21 00:00 | Epigastric pain | [facility] | + + + + | 2022-04-21 [...] + + + | 2022-04-21 07:11 | 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 OF | [facility] | | | INSULIN | | + + + + | 2022-04-21 07:11 | OTHER [facility] (CURRENT) | [facility] | | | DRUG [...] + + + | 2022-05-22 22:48 | 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 OF | [facility] | | | INSULIN | | + + + + | 2022-05-22 22:48 | OTHER [facility] (CURRENT) | [facility] | | | DRUG [...] 2022-05-23 00:00 | Atypical chest pain | [facility] | + + + + | 2022-05-23 00:00 | Atypical chest pain | [facility] | + + + + | 2022-05-26 [...] + + + | 2022-05-26 18:10 | [facility] (CURRENT) USE OF | [facility] | | [...] + + + | 2022-06-18 11:42 | 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 OF | [facility] | | | INSULIN | | + + + + | 2022-06-18 11:42 | OTHER [facility] (CURRENT) | [facility] | | | DRUG [...] 2022-06-21 00:00 | Acute kidney injury | [facility] | + + + + | 2022-06-21 00:00 | Acute kidney injury | [facility] | + + + + | 2022-06-21 [...] + | 2022-06-22 00:00 | Acidosis | [facility] | + + + + | 2022-06-22 00:00 | Acidosis | [facility] | + + + + | 2022-07-03 00:00 | Right upper quadrant | [facility] | | | abdominal pain | | + + + + | 2022-07-03 00:00 | Right upper quadrant | [facility] | | | abdominal pain | | [...] + + + | 2022-07-03 05:56 | [facility] (CURRENT) USE OF | [facility] | | | INSULIN | | + + + + | 2022-07-03 05:56 | 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) | [facility] | | | DRUG [...] 00:00 | Patient left without being | [facility] | | | seen | | + + + + | 2022-07-08 00:00 | Patient left without being | [facility] | | | seen | | + + + + | 2022-07-27 00:00 | Biliary colic | [facility] | + + + + | 2022-07-27 00:00 | Biliary colic | [facility] | + + + + | 2022-07-27 [...] + + | 2022-07-27 00:25 | 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) | [facility] | | | DRUG [...] + + + | 2022-07-29 08:41 | [facility] (CURRENT) USE OF | [facility] | | | INSULIN | | + + + + | 2022-07-29 08:41 | OTHER [facility] (CURRENT) | [facility] | | | DRUG [...] + | 2022-08-03 00:00 | Hyperkalemia | [facility] | + + + + | 2022-08-03 00:00 | Hyperkalemia | [facility] | + + + + | 2022-08-03 00:00 | Encounter for medication | [facility] | | | refill | | + + + + | 2022-08-03 00:00 | Encounter for medication | [facility] | | | refill | | + [...] + + | 2022-08-03 12:33 | OTHER [facility] (CURRENT) | [facility] | | | DRUG [...] + + + | 2022-09-22 21:55 | [facility] (CURRENT) USE OF | [facility] | | | INSULIN | | + + + + | 2022-09-22 21:55 | OTHER [facility] (CURRENT) | [facility] | | | DRUG [...] + | 2022-10-06 00:00 | Dysuria | [facility] | + + + + | 2022-10-06 00:00 | Dysuria | [facility] | + + + + | 2022-10-06 [...] + + + | 2022-10-06 04:49 | [facility] (CURRENT) USE OF | [facility] | | | INSULIN | | + + + + | 2022-10-06 04:49 | 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) | [facility] | | | DRUG [...] + + + | 2022-10-10 22:40 | [facility] (CURRENT) USE OF | [facility] | | | INSULIN | | + + + + | 2022-10-10 22:40 | OTHER [facility] (CURRENT) | [facility] | | | DRUG [...] 00:00 | Type 1 diabetes mellitus | [facility] | | | with hyperglycemia | | + + + + | 2022-10-11 00:00 | Type 1 diabetes mellitus | [facility] | | | with hyperglycemia | | + + + + | 2022-10-30 00:00 | Renal insufficiency | [facility] | + + + + | 2022-10-30 00:00 | Renal insufficiency | [facility] | + + + + | 2022-10-30 [...] + + + | 2022-10-30 01:11 | 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 OF | [facility] | | | INSULIN | | + + + + | 2022-10-30 01:11 | 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) | [facility] | | | DRUG [...] 2022-11-24 00:00 | Chronic abdominal pain | [facility] | + + + + | 2022-11-24 00:00 | Chronic abdominal pain | [facility] | + + + + | 2022-11-24 [...] + + + | 2022-11-24 20:55 | [facility] (CURRENT) USE OF | [facility] | | | INSULIN | | + + + + | 2022-11-24 20:55 | 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) | [facility] | | | DRUG [...] | 2022-12-07 00:00 | Acute pancreatitis | [facility] | + + + + | 2022-12-07 00:00 | Acute pancreatitis | [facility] | + + + + | 2022-12-08 [...] + + + | 2022-12-08 11:00 | [facility] (CURRENT) USE OF | [facility] | | | INSULIN | | + + + + | 2022-12-08 11:00 | 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) | [facility] | | | DRUG [...] | 2023-01-03 00:00 | Recurrent pancreatitis | [facility] | + + + + | 2023-01-03 00:00 | Recurrent pancreatitis | [facility] | + + + + | 2023-01-03 00:00 | Abdominal bloating | [facility] | + + + + | 2023-01-03 00:00 | Abdominal bloating | [facility] | + + + + | 2023-01-03 00:00 | Left against medical | [facility] | | | advice | | + + + + | 2023-01-03 00:00 | Left against medical | [facility] | | | advice | | + [...] + + + | 2023-01-20 23:40 | [facility] (CURRENT) USE OF | [facility] | | [...] + + + | 2023-01-26 21:48 | [facility] (CURRENT) USE OF | [facility] | | [...] + + + | 2023-02-02 00:06 | [facility] (CURRENT) USE OF | [facility] | | [...] | 2023-02-11 00:00 | Positive blood | [facility] | | | test | | + + + + | 2023-02-11 00:00 | Positive blood | [facility] | | | test | | + + + + | 2023-02-11 00:00 | | [facility] | + + + + | 2023-02-11 00:00 | | [facility] | + + + + | 2023-02-11 [...] + + + | 2023-02-11 00:33 | 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 OF | [facility] | | | INSULIN | | + + + + | 2023-02-11 00:33 | OTHER [facility] (CURRENT) | [facility] | | | DRUG [...] + + + | 2023-02-23 00:40 | 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 OF | [facility] | | | INSULIN | | + + + + | 2023-02-23 00:40 | 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) | [facility] | | | DRUG [...] + + + | 2023-03-04 21:44 | 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 OF | [facility] | | | INSULIN | | + + + + | 2023-03-04 21:44 | 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) | [facility] | | | DRUG [...] 2023-03-12 00:00 | Poorly controlled diabetes | [facility] | | | mellitus | | + + + + | 2023-03-12 00:00 | Poorly controlled diabetes | [facility] | | | mellitus | | + [...] + + + | 2023-03-12 11:46 | [facility] (CURRENT) USE OF | [facility] | | [...] + + + | 2023-03-20 13:05 | [facility] (CURRENT) USE OF | [facility] | | | INSULIN | | + + + + | 2023-03-20 13:05 | OTHER [facility] (CURRENT) | [facility] | | | DRUG [...] + + + | 2023-04-08 00:15 | 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 OF | [facility] | | [...] 2023-04-10 00:00 | Uncontrolled type 1 | [facility] | | | diabetes mellitus | | + + + + | 2023-04-22 00:00 | 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[facility] | | | hyperglycinemia | | + + + + | 2023-04-22 00:00 | Chronic kidney disease | [facility] | + + + + | 2023-04-22 [...] + + + | 2023-04-22 00:28 | [facility] (CURRENT) USE OF | [facility] | | | INSULIN | | + + + + | 2023-04-22 00:28 | OTHER [facility] (CURRENT) | [facility] | | | DRUG [...] | 2023-05-05 00:00 | Flank pain | [facility] | + + + + | 2023-05-05 [...] + + + | 2023-05-05 21:18 | [facility] (CURRENT) USE OF | [facility] | | | INSULIN | | + + + + | 2023-05-05 21:18 | OTHER [facility] (CURRENT) | [facility] | | | DRUG [...] 00:00 | EXCISION OF RIGHT LARGE | [facility] | | | INTESTINE, ENDO, DIAGN | | + + + + | 2022-03-20 00:00 | EXCISION OF LEFT LARGE | [facility] | | | INTESTINE, ENDO, DIAGN | | + + + + | 2022-03-20 00:00 | EXCISION OF CECUM, ENDO, | [facility] | | | DIAGN | | + + + + | 2022-03-20 00:00 | EXCISION OF SIGMOID COLON, | [facility] | | | ENDO, DIAGN | | + + + + | 2022-03-20 00:00 | EXCISION OF RECTUM, ENDO, | [facility] | | | DIAGN | | + + + + | 2022-03-20 00:00 | TRANSFUSE NONAUT RED BLOOD | [facility] | | | CELLS IN PERIPH VEIN, PERC | | | | | | + + + + | 2022-03-20 00:00 | Colonoscopy with biopsy of | [facility] | | | colon | | + [...] | | (unavailable | | Andrea | [phone] | | | | ) | | [...] | | (unavailable | | Andrea | [phone] | | | | ) | | [...] | (missing) | | (unavailable | | Andera | | | | | [...] | | (unavailable | | Andrea | [phone] | | | | ) | | [...] | | (unavailable | | Andrea | [phone] | | | | ) | | [...] | | | | | | | [place] | | | | | | + [...] NEGATIVE | (missing) | (missing) | | [id number] | 07:45 | Andrea | | | [...] (missing) | | (unavailable | 14:34 | Adnrea | | | | | [...] (missing) | | (unavailable | 12:30:08 | Adnrea | | | | | [...] (missing) | | (unavailable | 11:00:08 | Adnrea | | | | | [...] (missing) | | (unavailable | 23:05:07 | Andrae | | | | | [...] (missing) | | (unavailable | 01:00:07 | nAdrea | | | | | [...] (missing) | | (unavailable | 00:50:07 | Andera | | | | | [...] (missing) | | (unavailable | 12:47:07 | Adnrea | | | | | [...] (missing) | | (unavailable | 02:05:07 | Anrdea | | | | | [...] | trans packed | | Andrea | [phone] | | | | [facility] | | [...] (missing) | | group typing | | [facility] | | [facility] | | | | + + + +-----+ + + Social History + + + + | date | description | facility | + + + + | 2022-03-22 00:00 | Never smoker | [facility] | + + + + Vital Signs [...]
--- OUTSIDE RECORDS SUMMARY | ~2023-05-07 | XMS | Continuity of Care Document ---
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 | Phone | + [...] | (no severity) | | | | [facility] | | | | | | [facility] [...] 2022-03-22 00:00 | No vaccine administered | [facility] | + + + + Medications + + + + | date | description | facility | + + + + | 2021-01-18 00:00 | FAMOTIDINE | [facility] | + + + + | 2021-01-18 00:00 | FAMOTIDINE | [facility] | + + + + | 2022-03-22 00:00 | FAMOTIDINE | [facility] | + + + + | 2022-03-23 00:00 | FAMOTIDINE | [facility] | + + + + | 2022-03-25 00:00 | FAMOTIDINE | [facility] | + + + + | 2022-03-27 00:00 | FAMOTIDINE | [facility] | + + + + | 2022-03-28 00:00 | FAMOTIDINE | [facility] | + + + + | 2022-05-23 00:00 | FAMOTIDINE | [facility] | + + + + | 2022-06-18 00:00 | FAMOTIDINE | [facility] | + + + + | 2022-06-22 00:00 | FAMOTIDINE | [facility] | + + + + | 2022-07-03 00:00 | FAMOTIDINE | [facility] | + + + + | 2022-07-08 00:00 | FAMOTIDINE | [facility] | + + + + | 2022-07-29 00:00 | FAMOTIDINE | [facility] | + + + + | 2022-08-03 00:00 | FAMOTIDINE | [facility] | + + + + | 2022-08-05 00:00 | FAMOTIDINE | [facility] | + + + + | 2022-08-17 00:00 | FAMOTIDINE | [facility] | + + + + | 2022-09-14 00:00 | FAMOTIDINE | [facility] | + + + + | 2022-09-23 00:00 | FAMOTIDINE | [facility] | + + + + | 2022-10-08 00:00 | FAMOTIDINE | [facility] | + + + + | 2022-10-11 00:00 | FAMOTIDINE | [facility] | + + + + | 2022-10-30 00:00 | FAMOTIDINE | [facility] | + + + + | 2022-11-24 00:00 | FAMOTIDINE | [facility] | + + + + | 2022-12-10 00:00 | FAMOTIDINE | [facility] | + + + + | 2023-01-03 00:00 | FAMOTIDINE | [facility] | + + + + | 2023-01-05 00:00 | FAMOTIDINE | [facility] | + + + + | 2023-01-21 00:00 | FAMOTIDINE | [facility] | + + + + | 2023-01-27 00:00 | FAMOTIDINE | [facility] | + + + + | 2023-02-02 00:00 | FAMOTIDINE | [facility] | + + + + | 2023-02-11 00:00 | FAMOTIDINE | [facility] | + + + + | 2023-02-23 00:00 | FAMOTIDINE | [facility] | + + + + | 2023-03-05 00:00 | FAMOTIDINE | [facility] | + + + + | 2023-03-12 00:00 | FAMOTIDINE | [facility] | + + + + | 2023-03-20 00:00 | FAMOTIDINE | [facility] | + + + + | 2023-04-08 00:00 | FAMOTIDINE | [facility] | + + + + | 2023-04-09 00:00 | FAMOTIDINE | [facility] | + + + + | 2023-05-05 00:00 | FAMOTIDINE | [facility] | + + + + | 2021-01-18 00:00 | famotidine 20 MG Oral | [facility] | | | Tablet [Pepcid] | | + + + + | 2022-03-22 00:00 | famotidine 20 MG Oral | [facility] | | | Tablet [Pepcid] | | + + + + | 2022-03-07 00:00 | ONDANSETRON | [facility] | + + + + | 2022-07-03 00:00 | ONDANSETRON | [facility] | + + + + | 2022-09-23 00:00 | ONDANSETRON | [facility] | + + + + | 2022-10-06 00:00 | ONDANSETRON | [facility] | + + + + | 2022-03-07 00:00 | ondansetron 4 MG | [facility] | | | Disintegrating Oral Tablet | | + + + + | 2018-10-19 00:00 | ONDANSETRON HCL | [facility] | + + + + | 2018-10-19 00:00 | ONDANSETRON HCL | [facility] | + + + + | 2021-01-18 00:00 | ONDANSETRON HCL | [facility] | + + + + | 2021-01-18 00:00 | ONDANSETRON HCL | [facility] | + + + + | 2022-03-23 00:00 | ONDANSETRON HCL | [facility] | + + + + | 2022-03-25 00:00 | ONDANSETRON HCL | [facility] | + + + + | 2022-03-27 00:00 | ONDANSETRON HCL | [facility] | + + + + | 2022-03-28 00:00 | ONDANSETRON HCL | [facility] | + + + + | 2022-06-18 00:00 | ONDANSETRON HCL | [facility] | + + + + | 2022-06-22 00:00 | ONDANSETRON HCL | [facility] | + + + + | 2022-07-03 00:00 | ONDANSETRON HCL | [facility] | + + + + | 2022-07-08 00:00 | ONDANSETRON HCL | [facility] | + + + + | 2022-07-29 00:00 | ONDANSETRON HCL | [facility] | + + + + | 2022-08-03 00:00 | ONDANSETRON HCL | [facility] | + + + + | 2022-08-05 00:00 | ONDANSETRON HCL | [facility] | + + + + | 2022-08-17 00:00 | ONDANSETRON HCL | [facility] | + + + + | 2022-09-14 00:00 | ONDANSETRON HCL | [facility] | + + + + | 2022-09-23 00:00 | ONDANSETRON HCL | [facility] | + + + + | 2022-10-08 00:00 | ONDANSETRON HCL | [facility] | + + + + | 2022-10-11 00:00 | ONDANSETRON HCL | [facility] | + + + + | 2022-10-30 00:00 | ONDANSETRON HCL | [facility] | + + + + | 2022-11-24 00:00 | ONDANSETRON HCL | [facility] | + + + + | 2022-12-10 00:00 | ONDANSETRON HCL | [facility] | + + + + | 2023-01-03 00:00 | ONDANSETRON HCL | [facility] | + + + + | 2023-01-05 00:00 | ONDANSETRON HCL | [facility] | + + + + | 2023-01-21 00:00 | ONDANSETRON HCL | [facility] | + + + + | 2023-01-27 00:00 | ONDANSETRON HCL | [facility] | + + + + | 2023-02-02 00:00 | ONDANSETRON HCL | [facility] | + + + + | 2023-02-11 00:00 | ONDANSETRON HCL | [facility] | + + + + | 2023-02-23 00:00 | ONDANSETRON HCL | [facility] | + + + + | 2023-03-05 00:00 | ONDANSETRON HCL | [facility] | + + + + | 2023-03-12 00:00 | ONDANSETRON HCL | [facility] | + + + + | 2023-03-20 00:00 | ONDANSETRON HCL | [facility] | + + + + | 2023-04-08 00:00 | ONDANSETRON HCL | [facility] | + + + + | 2023-04-09 00:00 | ONDANSETRON HCL | [facility] | + + + + | 2023-05-05 00:00 | ONDANSETRON HCL | [facility] | + + + + | 2018-10-19 00:00 | ondansetron 4 MG Oral | [facility] | | | Tablet [Zofran] | | + + + + | 2021-01-18 00:00 | ondansetron 4 MG Oral | [facility] | | | Tablet [Zofran] | | + + + + | 2022-03-22 00:00 | ondansetron 4 MG Oral | [facility] | | | Tablet [Zofran] | | + + + + | 2022-03-18 00:00 | OXYCODONE HCL | [facility] | + + + + | 2022-03-18 00:00 | oxycodone hydrochloride 5 | [facility] | | | MG Oral Tablet | | + + + + | 2022-07-03 00:00 | NAPROXEN | [facility] | + + + + | 2022-07-03 00:00 | NAPROXEN | [facility] | + + + + | 2023-05-05 00:00 | PHENAZOPYRIDINE HCL | [facility] | + + + + | 2021-03-01 00:00 | PHENAZOPYRIDINE HCL | [facility] | + + + + | 2021-03-01 00:00 | PHENAZOPYRIDINE HCL | [facility] | + + + + | 2021-07-14 00:00 | PHENAZOPYRIDINE HCL | [facility] | + + + + | 2021-07-14 00:00 | PHENAZOPYRIDINE HCL | [facility] | + + + + | 2021-03-01 00:00 | phenazopyridine | [facility] | | | hydrochloride 200 MG Oral | | | | Tablet [Pyridium] | | + + + + | 2021-07-14 00:00 | phenazopyridine | [facility] | | | hydrochloride 200 MG Oral | | | | Tablet [Pyridium] | | + + + + | 2022-03-22 00:00 | [place] 28 Day Pack | [facility] | + + + + | 2022-03-23 00:00 | NORGESTIMATE-ETHINYL | [facility] | | | ESTRADIOL | | + + + + | 2022-03-25 00:00 | NORGESTIMATE-ETHINYL | [facility] | | | ESTRADIOL | | + + + + | 2022-03-27 00:00 | NORGESTIMATE-ETHINYL | [facility] | | | ESTRADIOL | | + + + + | 2022-03-28 00:00 | NORGESTIMATE-ETHINYL | [facility] | | | ESTRADIOL | | + + + + | 2022-06-18 00:00 | NORGESTIMATE-ETHINYL | [facility] | | | ESTRADIOL | | + + + + | 2022-06-22 00:00 | NORGESTIMATE-ETHINYL | [facility] | | | ESTRADIOL | | + + + + | 2022-07-03 00:00 | NORGESTIMATE-ETHINYL | [facility] | | | ESTRADIOL | | + + + + | 2022-07-08 00:00 | NORGESTIMATE-ETHINYL | [facility] | | | ESTRADIOL | | + + + + | 2022-07-29 00:00 | NORGESTIMATE-ETHINYL | [facility] | | | ESTRADIOL | | + + + + | 2022-08-03 00:00 | NORGESTIMATE-ETHINYL | [facility] | | | ESTRADIOL | | + + + + | 2022-08-05 00:00 | NORGESTIMATE-ETHINYL | [facility] | | | ESTRADIOL | | + + + + | 2022-08-17 00:00 | NORGESTIMATE-ETHINYL | [facility] | | | ESTRADIOL | | + + + + | 2022-09-14 00:00 | NORGESTIMATE-ETHINYL | [facility] | | | ESTRADIOL | | + + + + | 2022-09-23 00:00 | NORGESTIMATE-ETHINYL | [facility] | | | ESTRADIOL | | + + + + | 2022-10-08 00:00 | NORGESTIMATE-ETHINYL | [facility] | | | ESTRADIOL | | + + + + | 2022-10-11 00:00 | NORGESTIMATE-ETHINYL | [facility] | | | ESTRADIOL | | + + + + | 2022-10-30 00:00 | NORGESTIMATE-ETHINYL | [facility] | | | ESTRADIOL | | + + + + | 2022-11-24 00:00 | NORGESTIMATE-ETHINYL | [facility] | | | ESTRADIOL | | + + + + | 2022-12-10 00:00 | NORGESTIMATE-ETHINYL | [facility] | | | ESTRADIOL | | + + + + | 2023-01-03 00:00 | NORGESTIMATE-ETHINYL | [facility] | | | ESTRADIOL | | + + + + | 2023-01-05 00:00 | NORGESTIMATE-ETHINYL | [facility] | | | ESTRADIOL | | + + + + | 2023-01-21 00:00 | NORGESTIMATE-ETHINYL | [facility] | | | ESTRADIOL | | + + + + | 2023-01-27 00:00 | NORGESTIMATE-ETHINYL | [facility] | | | ESTRADIOL | | + + + + | 2023-02-02 00:00 | NORGESTIMATE-ETHINYL | [facility] | | | ESTRADIOL | | + + + + | 2023-02-11 00:00 | NORGESTIMATE-ETHINYL | [facility] | | | ESTRADIOL | | + + + + | 2023-02-23 00:00 | NORGESTIMATE-ETHINYL | [facility] | | | ESTRADIOL | | + + + + | 2023-03-05 00:00 | NORGESTIMATE-ETHINYL | [facility] | | | ESTRADIOL | | + + + + | 2023-03-12 00:00 | NORGESTIMATE-ETHINYL | [facility] | | | ESTRADIOL | | + + + + | 2023-03-20 00:00 | NORGESTIMATE-ETHINYL | [facility] | | | ESTRADIOL | | + + + + | 2023-04-08 00:00 | NORGESTIMATE-ETHINYL | [facility] | | | ESTRADIOL | | + + + + | 2023-04-09 00:00 | NORGESTIMATE-ETHINYL | [facility] | | | ESTRADIOL | | + + + + | 2023-05-05 00:00 | NORGESTIMATE-ETHINYL | [facility] | | | ESTRADIOL | | + + + + | 2022-03-23 00:00 | ERGOCALCIFEROL (VITAMIN | [facility] | | | D2) | | + + + + | 2022-03-25 00:00 | ERGOCALCIFEROL (VITAMIN | [facility] | | | D2) | | + + + + | 2022-03-27 00:00 | ERGOCALCIFEROL (VITAMIN | [facility] | | | D2) | | + + + + | 2022-03-28 00:00 | ERGOCALCIFEROL (VITAMIN | [facility] | | | D2) | | + + + + | 2022-06-18 00:00 | ERGOCALCIFEROL (VITAMIN | [facility] | | | D2) | | + + + + | 2022-06-22 00:00 | ERGOCALCIFEROL (VITAMIN | [facility] | | | D2) | | + + + + | 2022-07-03 00:00 | ERGOCALCIFEROL (VITAMIN | [facility] | | | D2) | | + + + + | 2022-07-08 00:00 | ERGOCALCIFEROL (VITAMIN | [facility] | | | D2) | | + + + + | 2022-07-29 00:00 | ERGOCALCIFEROL (VITAMIN | [facility] | | | D2) | | + + + + | 2022-08-03 00:00 | ERGOCALCIFEROL (VITAMIN | [facility] | | | D2) | | + + + + | 2022-08-05 00:00 | ERGOCALCIFEROL (VITAMIN | [facility] | | | D2) | | + + + + | 2022-08-17 00:00 | ERGOCALCIFEROL (VITAMIN | [facility] | | | D2) | | + + + + | 2022-09-14 00:00 | ERGOCALCIFEROL (VITAMIN | [facility] | | | D2) | | + + + + | 2022-09-23 00:00 | ERGOCALCIFEROL (VITAMIN | [facility] | | | D2) | | + + + + | 2022-10-08 00:00 | ERGOCALCIFEROL (VITAMIN | [facility] | | | D2) | | + + + + | 2022-10-11 00:00 | ERGOCALCIFEROL (VITAMIN | [facility] | | | D2) | | + + + + | 2022-10-30 00:00 | ERGOCALCIFEROL (VITAMIN | [facility] | | | D2) | | + + + + | 2022-11-24 00:00 | ERGOCALCIFEROL (VITAMIN | [facility] | | | D2) | | + + + + | 2022-12-10 00:00 | ERGOCALCIFEROL (VITAMIN | [facility] | | | D2) | | + + + + | 2023-01-03 00:00 | ERGOCALCIFEROL (VITAMIN | [facility] | | | D2) | | + + + + | 2023-01-05 00:00 | ERGOCALCIFEROL (VITAMIN | [facility] | | | D2) | | + + + + | 2023-01-21 00:00 | ERGOCALCIFEROL (VITAMIN | [facility] | | | D2) | | + + + + | 2023-01-27 00:00 | ERGOCALCIFEROL (VITAMIN | [facility] | | | D2) | | + + + + | 2023-02-02 00:00 | ERGOCALCIFEROL (VITAMIN | [facility] | | | D2) | | + + + + | 2023-02-11 00:00 | ERGOCALCIFEROL (VITAMIN | [facility] | | | D2) | | + + + + | 2023-02-23 00:00 | ERGOCALCIFEROL (VITAMIN | [facility] | | | D2) | | + + + + | 2023-03-05 00:00 | ERGOCALCIFEROL (VITAMIN | [facility] | | | D2) | | + + + + | 2023-03-12 00:00 | ERGOCALCIFEROL (VITAMIN | [facility] | | | D2) | | + + + + | 2023-03-20 00:00 | ERGOCALCIFEROL (VITAMIN | [facility] | | | D2) | | + + + + | 2023-04-08 00:00 | ERGOCALCIFEROL (VITAMIN | [facility] | | | D2) | | + + + + | 2023-04-09 00:00 | ERGOCALCIFEROL (VITAMIN | [facility] | | | D2) | | + + + + | 2023-05-05 00:00 | ERGOCALCIFEROL (VITAMIN | [facility] | | | D2) | | + + + + | 2022-03-22 00:00 | Ergocalciferol (Vitamin | [facility] | | | D2) | | + + + + | 2022-03-22 00:00 | ergocalciferol 1.25 MG | [facility] | | | Oral Capsule | | + + + + | 2022-03-22 00:00 | Mesalamine | [facility] | + + + + | 2022-03-22 00:00 | mesalamine 400 MG Delayed | [facility] | | | Release Oral Capsule | | | | [Delzicol] | | + + + + | 2023-03-12 00:00 | DOXYCYCLINE HYCLATE | [facility] | + + + + | 2023-03-12 00:00 | DOXYCYCLINE HYCLATE | [facility] | + + + + | 2022-08-03 00:00 | INSULIN LISPRO | [facility] | + + + + | 2022-08-03 00:00 | INSULIN LISPRO | [facility] | + + + + | 2022-06-22 00:00 | Insulin Lispro | [facility] | + + + + | 2022-07-03 00:00 | Insulin Lispro | [facility] | + + + + | 2022-07-08 00:00 | Insulin Lispro | [facility] | + + + + | 2022-07-29 00:00 | Insulin Lispro | [facility] | + + + + | 2022-08-03 00:00 | Insulin Lispro | [facility] | + + + + | 2022-08-05 00:00 | Insulin Lispro | [facility] | + + + + | 2023-05-05 00:00 | Insulin Lispro | [facility] | + + + + | 2022-03-22 00:00 | 3 ML insulin lispro 100 | [facility] | | | UNT/ML Pen Injector | | | | [Humalog] | | + + + + | 2022-03-23 00:00 | INSULIN LISPRO | [facility] | + + + + | 2022-03-25 00:00 | INSULIN LISPRO | [facility] | + + + + | 2022-03-27 00:00 | INSULIN LISPRO | [facility] | + + + + | 2022-03-28 00:00 | INSULIN LISPRO | [facility] | + + + + | 2022-06-18 00:00 | INSULIN LISPRO | [facility] | + + + + | 2022-03-22 00:00 | 3 ML insulin aspart, human | [facility] | | | 100 UNT/ML Pen Injector | | | | [NovoLog] | | + + + + | 2022-03-23 00:00 | INSULIN ASPART | [facility] | + + + + | 2022-03-25 00:00 | INSULIN ASPART | [facility] | + + + + | 2022-03-27 00:00 | INSULIN ASPART | [facility] | + + + + | 2022-03-28 00:00 | INSULIN ASPART | [facility] | + + + + | 2022-06-18 00:00 | INSULIN ASPART | [facility] | + + + + | 2022-06-22 00:00 | INSULIN ASPART | [facility] | + + + + | 2022-07-03 00:00 | INSULIN ASPART | [facility] | + + + + | 2022-07-08 00:00 | INSULIN ASPART | [facility] | + + + + | 2022-07-29 00:00 | INSULIN ASPART | [facility] | + + + + | 2022-08-03 00:00 | INSULIN ASPART | [facility] | + + + + | 2022-08-05 00:00 | INSULIN ASPART | [facility] | + + + + | 2022-08-17 00:00 | INSULIN ASPART | [facility] | + + + + | 2022-09-14 00:00 | INSULIN ASPART | [facility] | + + + + | 2022-09-23 00:00 | INSULIN ASPART | [facility] | + + + + | 2022-10-08 00:00 | INSULIN ASPART | [facility] | + + + + | 2022-10-11 00:00 | INSULIN ASPART | [facility] | + + + + | 2022-10-30 00:00 | INSULIN ASPART | [facility] | + + + + | 2022-11-24 00:00 | INSULIN ASPART | [facility] | + + + + | 2022-12-10 00:00 | INSULIN ASPART | [facility] | + + + + | 2023-01-03 00:00 | INSULIN ASPART | [facility] | + + + + | 2023-01-05 00:00 | INSULIN ASPART | [facility] | + + + + | 2023-01-21 00:00 | INSULIN ASPART | [facility] | + + + + | 2023-01-27 00:00 | INSULIN ASPART | [facility] | + + + + | 2023-02-02 00:00 | INSULIN ASPART | [facility] | + + + + | 2023-02-11 00:00 | INSULIN ASPART | [facility] | + + + + | 2023-02-23 00:00 | INSULIN ASPART | [facility] | + + + + | 2023-03-05 00:00 | INSULIN ASPART | [facility] | + + + + | 2023-03-12 00:00 | INSULIN ASPART | [facility] | + + + + | 2023-03-20 00:00 | INSULIN ASPART | [facility] | + + + + | 2023-04-08 00:00 | INSULIN ASPART | [facility] | + + + + | 2023-04-09 00:00 | INSULIN ASPART | [facility] | + + + + | 2023-05-05 00:00 | INSULIN ASPART | [facility] | + + + + | 2023-01-21 00:00 | CEPHALEXIN | [facility] | + + + + | 2022-03-23 00:00 | ESTRADIOL | [facility] | + + + + | 2022-03-25 00:00 | ESTRADIOL | [facility] | + + + + | 2022-03-27 00:00 | ESTRADIOL | [facility] | + + + + | 2022-03-28 00:00 | ESTRADIOL | [facility] | + + + + | 2022-06-18 00:00 | ESTRADIOL | [facility] | + + + + | 2022-06-22 00:00 | ESTRADIOL | [facility] | + + + + | 2022-07-03 00:00 | ESTRADIOL | [facility] | + + + + | 2022-07-08 00:00 | ESTRADIOL | [facility] | + + + + | 2022-07-29 00:00 | ESTRADIOL | [facility] | + + + + | 2022-08-03 00:00 | ESTRADIOL | [facility] | + + + + | 2022-08-05 00:00 | ESTRADIOL | [facility] | + + + + | 2022-08-17 00:00 | ESTRADIOL | [facility] | + + + + | 2022-09-14 00:00 | ESTRADIOL | [facility] | + + + + | 2022-09-23 00:00 | ESTRADIOL | [facility] | + + + + | 2022-10-08 00:00 | ESTRADIOL | [facility] | + + + + | 2022-10-11 00:00 | ESTRADIOL | [facility] | + + + + | 2022-10-30 00:00 | ESTRADIOL | [facility] | + + + + | 2022-11-24 00:00 | ESTRADIOL | [facility] | + + + + | 2022-12-10 00:00 | ESTRADIOL | [facility] | + + + + | 2023-01-03 00:00 | ESTRADIOL | [facility] | + + + + | 2023-01-05 00:00 | ESTRADIOL | [facility] | + + + + | 2023-01-21 00:00 | ESTRADIOL | [facility] | + + + + | 2023-01-27 00:00 | ESTRADIOL | [facility] | + + + + | 2023-02-02 00:00 | ESTRADIOL | [facility] | + + + + | 2023-02-11 00:00 | ESTRADIOL | [facility] | + + + + | 2023-02-23 00:00 | ESTRADIOL | [facility] | + + + + | 2023-03-05 00:00 | ESTRADIOL | [facility] | + + + + | 2023-03-12 00:00 | ESTRADIOL | [facility] | + + + + | 2023-03-20 00:00 | ESTRADIOL | [facility] | + + + + | 2023-04-08 00:00 | ESTRADIOL | [facility] | + + + + | 2023-04-09 00:00 | ESTRADIOL | [facility] | + + + + | 2023-05-05 00:00 | ESTRADIOL | [facility] | + + + + | 2022-03-22 00:00 | estradiol 2 MG Oral Tablet | [facility] | | | | | + + + + | 2022-10-08 00:00 | NAPROXEN | [facility] | + + + + | 2021-07-31 00:00 | OMEPRAZOLE | [facility] | + + + + | 2021-07-31 00:00 | OMEPRAZOLE | [facility] | + + + + | 2021-07-31 00:00 | omeprazole 20 MG Delayed | [facility] | | | Release Oral Capsule | | + + + + | 2023-03-12 00:00 | ONDANSETRON HCL | [facility] | + + + + | 2023-03-12 00:00 | ONDANSETRON HCL | [facility] | + + + + | 2022-06-22 00:00 | CEFDINIR | [facility] | + + + + | 2022-06-22 00:00 | CEFDINIR | [facility] | + + + + | 2022-09-14 00:00 | Metoprolol Succinate | [facility] | + + + + | 2022-09-23 00:00 | Metoprolol Succinate | [facility] | + + + + | 2022-10-08 00:00 | Metoprolol Succinate | [facility] | + + + + | 2022-10-11 00:00 | Metoprolol Succinate | [facility] | + + + + | 2022-10-30 00:00 | Metoprolol Succinate | [facility] | + + + + | 2022-11-24 00:00 | Metoprolol Succinate | [facility] | + + + + | 2022-12-10 00:00 | Metoprolol Succinate | [facility] | + + + + | 2023-01-03 00:00 | Metoprolol Succinate | [facility] | + + + + | 2023-01-05 00:00 | Metoprolol Succinate | [facility] | + + + + | 2023-01-21 00:00 | Metoprolol Succinate | [facility] | + + + + | 2023-01-27 00:00 | Metoprolol Succinate | [facility] | + + + + | 2023-02-02 00:00 | Metoprolol Succinate | [facility] | + + + + | 2023-02-11 00:00 | Metoprolol Succinate | [facility] | + + + + | 2023-02-23 00:00 | Metoprolol Succinate | [facility] | + + + + | 2023-03-05 00:00 | Metoprolol Succinate | [facility] | + + + + | 2023-03-12 00:00 | Metoprolol Succinate | [facility] | + + + + | 2023-03-20 00:00 | Metoprolol Succinate | [facility] | + + + + | 2023-04-08 00:00 | Metoprolol Succinate | [facility] | + + + + | 2023-04-09 00:00 | Metoprolol Succinate | [facility] | + + + + | 2022-03-23 00:00 | ESTRADIOL | [facility] | + + + + | 2022-03-25 00:00 | ESTRADIOL | [facility] | + + + + | 2022-03-27 00:00 | ESTRADIOL | [facility] | + + + + | 2022-03-28 00:00 | ESTRADIOL | [facility] | + + + + | 2022-06-18 00:00 | ESTRADIOL | [facility] | + + + + | 2022-06-22 00:00 | ESTRADIOL | [facility] | + + + + | 2022-07-03 00:00 | ESTRADIOL | [facility] | + + + + | 2022-07-08 00:00 | ESTRADIOL | [facility] | + + + + | 2022-07-29 00:00 | ESTRADIOL | [facility] | + + + + | 2022-08-03 00:00 | ESTRADIOL | [facility] | + + + + | 2022-08-05 00:00 | ESTRADIOL | [facility] | + + + + | 2022-08-17 00:00 | ESTRADIOL | [facility] | + + + + | 2022-09-14 00:00 | ESTRADIOL | [facility] | + + + + | 2022-09-23 00:00 | ESTRADIOL | [facility] | + + + + | 2022-10-08 00:00 | ESTRADIOL | [facility] | + + + + | 2022-10-11 00:00 | ESTRADIOL | [facility] | + + + + | 2022-10-30 00:00 | ESTRADIOL | [facility] | + + + + | 2022-11-24 00:00 | ESTRADIOL | [facility] | + + + + | 2022-12-10 00:00 | ESTRADIOL | [facility] | + + + + | 2023-01-03 00:00 | [facility]ADIOL [facility] [facility] | + + + + | 2023-01-05 00:00 | ESTRADIOL | [facility] | + + + + | 2023-01-21 00:00 | ESTRADIOL | [facility] | + + + + | 2023-01-27 00:00 | ESTRADIOL | [facility] | + + + + | 2023-02-02 00:00 | ESTRADIOL | [facility] | + + + + | 2023-02-11 00:00 | ESTRADIOL | [facility] | + + + + | 2023-02-23 00:00 | ESTRADIOL | [facility] | + + + + | 2023-03-05 00:00 | ESTRADIOL | [facility] | + + + + | 2023-03-12 00:00 | ESTRADIOL | [facility] | + + + + | 2023-03-20 00:00 | ESTRADIOL | [facility] | + + + + | 2023-04-08 00:00 | ESTRADIOL | [facility] | + + + + | 2023-04-09 00:00 | ESTRADIOL | [facility] | + + + + | 2023-05-05 00:00 | ESTRADIOL | [facility] | + + + + | 2022-03-22 00:00 | estradiol 1 MG Oral Tablet | [facility] | | | [Estrace] | | + + + + | 2022-10-06 00:00 | FLUCONAZOLE | [facility] | + + + + | 2021-07-31 00:00 | METOCLOPRAMIDE HCL | [facility] | + + + + | 2021-07-31 00:00 | METOCLOPRAMIDE HCL | [facility] | + + + + | 2021-07-31 00:00 | metoclopramide 10 MG Oral | [facility] | | | Tablet [Reglan] | | + + + + | 2022-06-22 00:00 | Cholecalciferol (Vitamin | [facility] | | | D3) | | + + + + | 2022-07-03 00:00 | Cholecalciferol (Vitamin | [facility] | | | D3) | | + + + + | 2022-07-08 00:00 | Cholecalciferol (Vitamin | [facility] | | | D3) | | + + + + | 2022-07-29 00:00 | Cholecalciferol (Vitamin | [facility] | | | D3) | | + + + + | 2022-08-03 00:00 | Cholecalciferol (Vitamin | [facility] | | | D3) | | + + + + | 2022-08-05 00:00 | Cholecalciferol (Vitamin | [facility] | | | D3) | | + + + + | 2022-03-23 00:00 | ASCORBIC ACID | [facility] | + + + + | 2022-03-25 00:00 | ASCORBIC ACID | [facility] | + + + + | 2022-03-27 00:00 | ASCORBIC ACID | [facility] | + + + + | 2022-03-28 00:00 | ASCORBIC ACID | [facility] | + + + + | 2022-06-18 00:00 | ASCORBIC ACID | [facility] | + + + + | 2022-06-22 00:00 | ASCORBIC ACID | [facility] | + + + + | 2022-07-03 00:00 | ASCORBIC ACID | [facility] | + + + + | 2022-07-08 00:00 | ASCORBIC ACID | [facility] | + + + + | 2022-07-29 00:00 | ASCORBIC ACID | [facility] | + + + + | 2022-08-03 00:00 | ASCORBIC ACID | [facility] | + + + + | 2022-08-05 00:00 | ASCORBIC ACID | [facility] | + + + + | 2022-08-17 00:00 | ASCORBIC ACID | [facility] | + + + + | 2022-09-14 00:00 | ASCORBIC ACID | [facility] | + + + + | 2022-09-23 00:00 | ASCORBIC ACID | [facility] | + + + + | 2022-10-08 00:00 | ASCORBIC ACID | [facility] | + + + + | 2022-10-11 00:00 | ASCORBIC ACID | [facility] | + + + + | 2022-10-30 00:00 | ASCORBIC ACID | [facility] | + + + + | 2022-11-24 00:00 | ASCORBIC ACID | [facility] | + + + + | 2022-12-10 00:00 | ASCORBIC ACID | [facility] | + + + + | 2023-01-03 00:00 | ASCORBIC ACID | [facility] | + + + + | 2023-01-05 00:00 | ASCORBIC ACID | [facility] | + + + + | 2023-01-21 00:00 | ASCORBIC ACID | [facility] | + + + + | 2023-01-27 00:00 | ASCORBIC ACID | [facility] | + + + + | 2023-02-02 00:00 | ASCORBIC ACID | [facility] | + + + + | 2023-02-11 00:00 | ASCORBIC ACID | [facility] | + + + + | 2023-02-23 00:00 | ASCORBIC ACID | [facility] | + + + + | 2023-03-05 00:00 | ASCORBIC ACID | [facility] | + + + + | 2023-03-12 00:00 | ASCORBIC ACID | [facility] | + + + + | 2023-03-20 00:00 | ASCORBIC ACID | [facility] | + + + + | 2023-04-08 00:00 | ASCORBIC ACID | [facility] | + + + + | 2023-04-09 00:00 | ASCORBIC ACID | [facility] | + + + + | 2023-05-05 00:00 | ASCORBIC ACID | [facility] | + + + + | 2022-03-22 00:00 | ascorbic acid 500 MG Oral | [facility] | | | Tablet | | + + + + | 2022-03-23 00:00 | AMLODIPINE BESYLATE | [facility] | + + + + | 2022-03-25 00:00 | AMLODIPINE BESYLATE | [facility] | + + + + | 2022-03-27 00:00 | AMLODIPINE BESYLATE | [facility] | + + + + | 2022-03-28 00:00 | AMLODIPINE BESYLATE | [facility] | + + + + | 2022-06-18 00:00 | AMLODIPINE BESYLATE | [facility] | + + + + | 2022-06-22 00:00 | AMLODIPINE BESYLATE | [facility] | + + + + | 2022-07-03 00:00 | AMLODIPINE BESYLATE | [facility] | + + + + | 2022-07-08 00:00 | AMLODIPINE BESYLATE | [facility] | + + + + | 2022-07-29 00:00 | AMLODIPINE BESYLATE | [facility] | + + + + | 2022-08-03 00:00 | AMLODIPINE BESYLATE | [facility] | + + + + | 2022-08-05 00:00 | AMLODIPINE BESYLATE | [facility] | + + + + | 2022-08-17 00:00 | AMLODIPINE BESYLATE | [facility] | + + + + | 2022-09-14 00:00 | AMLODIPINE BESYLATE | [facility] | + + + + | 2022-09-23 00:00 | AMLODIPINE BESYLATE | [facility] | + + + + | 2022-10-08 00:00 | AMLODIPINE BESYLATE | [facility] | + + + + | 2022-10-11 00:00 | AMLODIPINE BESYLATE | [facility] | + + + + | 2022-10-30 00:00 | AMLODIPINE BESYLATE | [facility] | + + + + | 2022-11-24 00:00 | AMLODIPINE BESYLATE | [facility] | + + + + | 2022-12-10 00:00 | AMLODIPINE BESYLATE | [facility] | + + + + | 2023-01-03 00:00 | AMLODIPINE BESYLATE | [facility] | + + + + | 2023-01-05 00:00 | AMLODIPINE BESYLATE | [facility] | + + + + | 2023-01-21 00:00 | AMLODIPINE BESYLATE | [facility] | + + + + | 2023-01-27 00:00 | AMLODIPINE BESYLATE | [facility] | + + + + | 2023-02-02 00:00 | AMLODIPINE BESYLATE | [facility] | + + + + | 2023-02-11 00:00 | AMLODIPINE BESYLATE | [facility] | + + + + | 2023-02-23 00:00 | AMLODIPINE BESYLATE | [facility] | + + + + | 2023-03-05 00:00 | AMLODIPINE BESYLATE | [facility] | + + + + | 2023-03-12 00:00 | AMLODIPINE BESYLATE | [facility] | + + + + | 2023-03-20 00:00 | AMLODIPINE BESYLATE | [facility] | + + + + | 2023-04-08 00:00 | AMLODIPINE BESYLATE | [facility] | + + + + | 2023-04-09 00:00 | AMLODIPINE BESYLATE | [facility] | + + + + | 2023-05-05 00:00 | AMLODIPINE BESYLATE | [facility] | + + + + | 2022-03-22 00:00 | amlodipine 2.5 MG Oral | [facility] | | | Tablet | | + + + + | 2021-03-01 00:00 | CEPHALEXIN | [facility] | + + + + | 2021-03-01 00:00 | CEPHALEXIN | [facility] | + + + + | 2021-07-14 00:00 | CEPHALEXIN | [facility] | + + + + | 2021-07-14 00:00 | CEPHALEXIN | [facility] | + + + + | 2021-10-25 00:00 | CEPHALEXIN | [facility] | + + + + | 2021-10-25 00:00 | CEPHALEXIN | [facility] | + + + + | 2022-02-14 00:00 | CEPHALEXIN | [facility] | + + + + | 2022-02-14 00:00 | CEPHALEXIN | [facility] | + + + + | 2021-03-01 00:00 | cephalexin 500 MG Oral | [facility] | | | Capsule | | + + + + | 2021-07-14 00:00 | cephalexin 500 MG Oral | [facility] | | | Capsule | | + + + + | 2021-10-25 00:00 | cephalexin 500 MG Oral | [facility] | | | Capsule | | + + + + | 2022-02-14 00:00 | cephalexin 500 MG Oral | [facility] | | | Capsule | | + + + + | 2023-05-05 00:00 | FERROUS SULFATE | [facility] | + + + + | 2022-03-22 00:00 | Ferrous Sulfate | [facility] | + + + + | 2022-03-22 00:00 | ferrous sulfate 325 MG | [facility] | | | Oral Tablet | | + + + + | 2022-02-13 00:00 | ONDANSETRON | [facility] | + + + + | 2022-02-13 00:00 | ONDANSETRON | [facility] | + + + + | 2023-01-05 00:00 | ONDANSETRON | [facility] | + + + + | 2023-03-20 00:00 | ONDANSETRON | [facility] | + + + + | 2023-03-20 00:00 | ONDANSETRON | [facility] | + + + + | 2023-05-05 00:00 | ONDANSETRON | [facility] | + + + + | 2022-02-13 00:00 | ondansetron 8 MG | [facility] | | | Disintegrating Oral Tablet | | + + + + | 2022-03-18 00:00 | PROCHLORPERAZINE MALEATE | [facility] | + + + + | 2022-03-18 00:00 | prochlorperazine 5 MG Oral | [facility] | | | Tablet | | + + + + | 2022-03-23 00:00 | ACETAMINOPHEN | [facility] | + + + + | 2022-03-25 00:00 | ACETAMINOPHEN | [facility] | + + + + | 2022-03-27 00:00 | ACETAMINOPHEN | [facility] | + + + + | 2022-03-28 00:00 | ACETAMINOPHEN | [facility] | + + + + | 2022-03-22 00:00 | acetaminophen 325 MG Oral | [facility] | | | Tablet | | + + + + | 2022-03-23 00:00 | LISINOPRIL | [facility] | + + + + | 2022-03-25 00:00 | LISINOPRIL | [facility] | + + + + | 2022-03-27 00:00 | LISINOPRIL | [facility] | + + + + | 2022-03-28 00:00 | LISINOPRIL | [facility] | + + + + | 2022-06-18 00:00 | LISINOPRIL | [facility] | + + + + | 2022-06-22 00:00 | LISINOPRIL | [facility] | + + + + | 2022-07-03 00:00 | LISINOPRIL | [facility] | + + + + | 2022-07-08 00:00 | LISINOPRIL | [facility] | + + + + | 2022-07-29 00:00 | LISINOPRIL | [facility] | + + + + | 2022-08-03 00:00 | LISINOPRIL | [facility] | + + + + | 2022-08-05 00:00 | LISINOPRIL | [facility] | + + + + | 2022-08-17 00:00 | LISINOPRIL | [facility] | + + + + | 2022-09-14 00:00 | LISINOPRIL | [facility] | + + + + | 2022-09-23 00:00 | LISINOPRIL | [facility] | + + + + | 2022-10-08 00:00 | LISINOPRIL | [facility] | + + + + | 2022-10-11 00:00 | LISINOPRIL | [facility] | + + + + | 2022-10-30 00:00 | LISINOPRIL | [facility] | + + + + | 2022-11-24 00:00 | LISINOPRIL | [facility] | + + + + | 2022-12-10 00:00 | LISINOPRIL | [facility] | + + + + | 2023-01-03 00:00 | LISINOPRIL | [facility] | + + + + | 2023-01-05 00:00 | LISINOPRIL | [facility] | + + + + | 2023-01-21 00:00 | LISINOPRIL | [facility] | + + + + | 2023-01-27 00:00 | LISINOPRIL | [facility] | + + + + | 2023-02-02 00:00 | LISINOPRIL | [facility] | + + + + | 2023-02-11 00:00 | LISINOPRIL | [facility] | + + + + | 2023-02-23 00:00 | LISINOPRIL | [facility] | + + + + | 2023-03-05 00:00 | LISINOPRIL | [facility] | + + + + | 2023-03-12 00:00 | LISINOPRIL | [facility] | + + + + | 2023-03-20 00:00 | LISINOPRIL | [facility] | + + + + | 2023-04-08 00:00 | LISINOPRIL | [facility] | + + + + | 2023-04-09 00:00 | LISINOPRIL | [facility] | + + + + | 2023-05-05 00:00 | LISINOPRIL | [facility] | + + + + | 2022-03-22 00:00 | lisinopril 10 MG Oral | [facility] | | | Tablet | | + + + + | 2022-03-22 00:00 | METRONIDAZOLE | [facility] | + + + + | 2022-03-22 00:00 | metronidazole 250 MG Oral | [facility] | | | Tablet | | + + + + | 2022-06-22 00:00 | FENOFIBRATE | [facility] | + + + + | 2022-07-03 00:00 | FENOFIBRATE | [facility] | + + + + | 2022-07-08 00:00 | FENOFIBRATE | [facility] | + + + + | 2022-07-29 00:00 | FENOFIBRATE | [facility] | + + + + | 2022-08-03 00:00 | FENOFIBRATE | [facility] | + + + + | 2022-08-05 00:00 | FENOFIBRATE | [facility] | + + + + | 2022-08-17 00:00 | FENOFIBRATE | [facility] | + + + + | 2022-09-14 00:00 | FENOFIBRATE | [facility] | + + + + | 2022-09-23 00:00 | FENOFIBRATE | [facility] | + + + + | 2022-10-08 00:00 | FENOFIBRATE | [facility] | + + + + | 2022-10-11 00:00 | FENOFIBRATE | [facility] | + + + + | 2022-10-30 00:00 | FENOFIBRATE | [facility] | + + + + | 2022-11-24 00:00 | FENOFIBRATE | [facility] | + + + + | 2022-12-10 00:00 | FENOFIBRATE | [facility] | + + + + | 2023-01-03 00:00 | FENOFIBRATE | [facility] | + + + + | 2023-01-05 00:00 | FENOFIBRATE | [facility] | + + + + | 2023-01-21 00:00 | FENOFIBRATE | [facility] | + + + + | 2023-01-27 00:00 | FENOFIBRATE | [facility] | + + + + | 2023-02-02 00:00 | FENOFIBRATE | [facility] | + + + + | 2023-02-11 00:00 | FENOFIBRATE | [facility] | + + + + | 2023-02-23 00:00 | FENOFIBRATE | [facility] | + + + + | 2023-03-05 00:00 | FENOFIBRATE | [facility] | + + + + | 2023-03-12 00:00 | FENOFIBRATE | [facility] | + + + + | 2023-03-20 00:00 | FENOFIBRATE | [facility] | + + + + | 2023-04-08 00:00 | FENOFIBRATE | [facility] | + + + + | 2023-04-09 00:00 | FENOFIBRATE | [facility] | + + + + | 2022-03-23 00:00 | Fenofibrate | [facility] | | | Nanocrystallized | | + + + + | 2022-03-25 00:00 | Fenofibrate | [facility] | | | Nanocrystallized | | + + + + | 2022-03-27 00:00 | Fenofibrate | [facility] | | | Nanocrystallized | | + + + + | 2022-03-28 00:00 | Fenofibrate | [facility] | | | Nanocrystallized | | + + + + | 2022-06-18 00:00 | Fenofibrate | [facility] | | | Nanocrystallized | | + + + + | 2022-06-22 00:00 | Fenofibrate | [facility] | | | Nanocrystallized | | + + + + | 2022-07-03 00:00 | Fenofibrate | [facility] | | | Nanocrystallized | | + + + + | 2022-07-08 00:00 | Fenofibrate | [facility] | | | Nanocrystallized | | + + + + | 2022-07-29 00:00 | Fenofibrate | [facility] | | | Nanocrystallized | | + + + + | 2022-08-03 00:00 | Fenofibrate | [facility] | | | Nanocrystallized | | + + + + | 2022-08-05 00:00 | Fenofibrate | [facility] | | | Nanocrystallized | | + + + + | 2022-08-17 00:00 | Fenofibrate | [facility] | | | Nanocrystallized | | + + + + | 2022-09-14 00:00 | Fenofibrate | [facility] | | | Nanocrystallized | | + + + + | 2022-09-23 00:00 | Fenofibrate | [facility] | | | Nanocrystallized | | + + + + | 2022-10-08 00:00 | Fenofibrate | [facility] | | | Nanocrystallized | | + + + + | 2022-10-11 00:00 | Fenofibrate | [facility] | | | Nanocrystallized | | + + + + | 2022-10-30 00:00 | Fenofibrate | [facility] | | | Nanocrystallized | | + + + + | 2022-11-24 00:00 | Fenofibrate | [facility] | | | Nanocrystallized | | + + + + | 2022-12-10 00:00 | Fenofibrate | [facility] | | | Nanocrystallized | | + + + + | 2023-01-03 00:00 | Fenofibrate | [facility] | | | Nanocrystallized | | + + + + | 2023-01-05 00:00 | Fenofibrate | [facility] | | | Nanocrystallized | | + + + + | 2023-01-21 00:00 | Fenofibrate | [facility] | | | Nanocrystallized | | + + + + | 2023-01-27 00:00 | Fenofibrate | [facility] | | | Nanocrystallized | | + + + + | 2023-02-02 00:00 | Fenofibrate | [facility] | | | Nanocrystallized | | + + + + | 2023-02-11 00:00 | Fenofibrate | [facility] | | | Nanocrystallized | | + + + + | 2023-02-23 00:00 | Fenofibrate | [facility] | | | Nanocrystallized | | + + + + | 2023-03-05 00:00 | Fenofibrate | [facility] | | | Nanocrystallized | | + + + + | 2023-03-12 00:00 | Fenofibrate | [facility] | | | Nanocrystallized | | + + + + | 2023-03-20 00:00 | Fenofibrate | [facility] | | | Nanocrystallized | | + + + + | 2023-04-08 00:00 | Fenofibrate | [facility] | | | Nanocrystallized | | + + + + | 2023-04-09 00:00 | Fenofibrate | [facility] | | | Nanocrystallized | | + + + + | 2023-05-05 00:00 | Fenofibrate | [facility] | | | Nanocrystallized | | + + + + | 2022-03-22 00:00 | fenofibrate 160 MG Oral | [facility] | | | Tablet | | + + + + | 2023-05-05 00:00 | FENOFIBRATE | [facility] | + + + + | 2016-02-03 00:00 | CIPROFLOXACIN HCL/DEXAMETH | [facility] | | | | | + + + + | 2016-02-03 00:00 | CIPROFLOXACIN HCL/DEXAMETH | [facility] | | | | | + + + + | 2016-02-03 00:00 | ciprofloxacin 3 MG/ML / | [facility] | | | dexamethasone 1 MG/ML Otic | | | | Suspensio | | + + + + | 2022-03-18 00:00 | FENOFIBRATE | [facility] | | | NANOCRYSTALLIZED | | + + + + | 2022-03-18 00:00 | fenofibrate 48 MG Oral | [facility] | | | Tablet | | + + + + | 2022-09-23 00:00 | NITROFURANTOIN MONOHYD | [facility] | | | MACROCR | | + + + + | 2022-03-22 00:00 | 3 ML insulin glargine 100 | [facility] | | | UNT/ML Pen Injector | | | | [Lantus] | | + + + + | 2022-03-23 00:00 | INSULIN | [facility] | | | [facility] | | + + + + | 2022-03-25 00:00 | INSULIN | [facility] | | | GLARDAWOODE,[facility].REC.ANLOG | | + + + + | 2022-03-27 00:00 | INSULIN | [facility] | | | GLARDAWOODE,[facility].REC.ANLOG | | + + + + | 2022-03-28 00:00 | INSULIN | [facility] | | | GLARGINE,HUM.REC.ANLOG | | + + + + | 2022-06-18 00:00 | INSULIN | [facility] | | | GLARGINE,HUM.REC.ANLOG | | + + + + | 2022-06-22 00:00 | INSULIN | [facility] | | | GLARGINE,HUM.REC.ANLOG | | + + + + | 2022-07-03 00:00 | INSULIN | [facility] | | | GLARGINE,HUM.REC.ANLOG | | + + + + | 2022-07-08 00:00 | INSULIN | [facility] | | | GLARGINE,HUM.REC.ANLOG | | + + + + | 2022-07-29 00:00 | INSULIN | [facility] | | | [place]UM[place] | | + + + + | 2022-08-03 00:00 | INSULIN | [facility] | | | [place] | | + + + + | 2022-08-05 00:00 | INSULIN | [facility] | | | VIVIANHUM.REC[place]ANLOG | | + + + + | 2022-08-17 00:00 | INSULIN | [facility] | | | GLAALESSIAHUM.REC[place]ANLOG | | + + + + | 2022-09-14 00:00 | INSULIN | [facility] | | | GLARGINE,HUM.REC.ANLOG | | + + + + | 2022-09-23 00:00 | INSULIN | [facility] | | | GLARGINE,HUM.REC.ANLOG | | + + + + | 2022-10-08 00:00 | INSULIN | [facility] | | | GLARGINE,[facility].REC.ANLOG | | + + + + | 2022-10-11 00:00 | INSULIN | [facility] | | | GLARGINE,HUM.REC.ANLOG | | + + + + | 2022-10-30 00:00 | INSULIN | [facility] | | | GLARGINE,HUM.REC.ANLOG | | + + + + | 2022-11-24 00:00 | INSULIN | [facility] | | | GLARGINE,HUM.REC.ANLOG | | + + + + | 2022-12-10 00:00 | INSULIN | [facility] | | | GLARGINE,HUM.REC.ANLOG | | + + + + | 2023-01-03 00:00 | INSULIN | [facility] | | | GLARGINE,HUM.REC.ANLOG | | + + + + | 2023-01-05 00:00 | INSULIN | [facility] | | | GLARGINE,HUM.REC.ANLOG | | + + + + | 2023-01-21 00:00 | INSULIN | [facility] | | | [facility] | | + + + + | 2023-01-27 00:00 | INSULIN | [facility] | | | HUM. VIV[place]LOG | | + + + + | 2023-02-02 00:00 | INSULIN | [facility] | | | HUM. [place]LOG | | + + + + | 2023-02-11 00:00 | INSULIN | [facility] | | | GLAALESSIAHUM.RECOrlandoANLOG | | + + + + | 2023-02-23 00:00 | INSULIN | [facility] | | | GLARGINE,HUM.REC.ANLOG | | + + + + | 2023-03-05 00:00 | INSULIN | [facility] | | | GLARGINE,HUM.REC.ANLOG | | + + + + | 2023-03-12 00:00 | INSULIN | [facility] | | | GLARGINE,HUM.REC.ANLOG | | + + + + | 2023-03-20 00:00 | INSULIN | [facility] | | | GLARGINE,HUM.REC.ANLOG | | + + + + | 2023-04-08 00:00 | INSULIN | [facility] | | | GLARGINE,HUM.REC.ANLOG | | + + + + | 2023-04-09 00:00 | INSULIN | [facility] | | | GLAALESSIA,HUM.REC.ANLOG | | + + + + | 2023-05-05 00:00 | INSULIN | [facility] | | | GLAFARRUKHE,HUM.REC.ANLOG | | + + + + | 2022-03-22 00:00 | 3 ML insulin detemir 100 | [facility] | | | UNT/ML Pen Injector | | | | [Levemir] | | + + + + | 2022-03-23 00:00 | INSULIN DETEMIR | [facility] | + + + + | 2022-03-25 00:00 | INSULIN DETEMIR | [facility] | + + + + | 2022-03-27 00:00 | INSULIN DETEMIR | [facility] | + + + + | 2022-03-28 00:00 | INSULIN DETEMIR | [facility] | + + + + | 2022-06-18 00:00 | INSULIN DETEMIR | [facility] | + + + + | 2022-06-22 00:00 | INSULIN DETEMIR | [facility] | + + + + | 2022-07-03 00:00 | INSULIN DETEMIR | [facility] | + + + + | 2022-07-08 00:00 | INSULIN DETEMIR | [facility] | + + + + | 2022-07-29 00:00 | INSULIN DETEMIR | [facility] | + + + + | 2022-08-03 00:00 | INSULIN DETEMIR | [facility] | + + + + | 2022-08-05 00:00 | INSULIN DETEMIR | [facility] | + + + + | 2022-08-17 00:00 | INSULIN DETEMIR | [facility] | + + + + | 2022-09-14 00:00 | INSULIN DETEMIR | [facility] | + + + + | 2022-09-23 00:00 | INSULIN DETEMIR | [facility] | + + + + | 2022-10-08 00:00 | INSULIN DETEMIR | [facility] | + + + + | 2022-10-11 00:00 | INSULIN DETEMIR | [facility] | + + + + | 2022-10-30 00:00 | INSULIN DETEMIR | [facility] | + + + + | 2022-11-24 00:00 | INSULIN DETEMIR | [facility] | + + + + | 2022-12-10 00:00 | INSULIN DETEMIR | [facility] | + + + + | 2023-01-03 00:00 | INSULIN DETEMIR | [facility] | + + + + | 2023-01-05 00:00 | INSULIN DETEMIR | [facility] | + + + + | 2023-01-21 00:00 | INSULIN DETEMIR | [facility] | + + + + | 2023-01-27 00:00 | INSULIN DETEMIR | [facility] | + + + + | 2023-02-02 00:00 | INSULIN DETEMIR | [facility] | + + + + | 2023-02-11 00:00 | INSULIN DETEMIR | [facility] | + + + + | 2023-02-23 00:00 | INSULIN DETEMIR | [facility] | + + + + | 2023-03-05 00:00 | INSULIN DETEMIR | [facility] | + + + + | 2023-03-12 00:00 | INSULIN DETEMIR | [facility] | + + + + | 2023-03-20 00:00 | INSULIN DETEMIR | [facility] | + + + + | 2023-04-08 00:00 | INSULIN DETEMIR | [facility] | + + + + | 2023-04-09 00:00 | INSULIN DETEMIR | [facility] | + + + + | 2023-05-05 00:00 | INSULIN DETEMIR | [facility] | + + + + | 2021-01-22 00:00 | HYDROCODONE | [facility] | | | BIT/ACETAMINOPHEN | | + + + + | 2021-01-22 00:00 | HYDROCODONE | [facility] | | | BIT/ACETAMINOPHEN | | + + + + | 2022-12-10 00:00 | HYDROCODONE | [facility] | | | BIT/ACETAMINOPHEN | | + + + + | 2021-01-22 00:00 | acetaminophen 325 MG / | [facility] | | | hydrocodone bitartrate 5 MG | | | | Oral Tabl | | + + + + | 2022-03-23 00:00 | ROSUVASTATIN CALCIUM | [facility] | + + + + | 2022-03-25 00:00 | ROSUVASTATIN CALCIUM | [facility] | + + + + | 2022-03-27 00:00 | ROSUVASTATIN CALCIUM | [facility] | + + + + | 2022-03-28 00:00 | ROSUVASTATIN CALCIUM | [facility] | + + + + | 2022-06-18 00:00 | ROSUVASTATIN CALCIUM | [facility] | + + + + | 2022-06-22 00:00 | ROSUVASTATIN CALCIUM | [facility] | + + + + | 2022-06-22 00:00 | ROSUVASTATIN CALCIUM | [facility] | + + + + | 2022-07-03 00:00 | ROSUVASTATIN CALCIUM | [facility] | + + + + | 2022-07-08 00:00 | ROSUVASTATIN CALCIUM | [facility] | + + + + | 2022-07-29 00:00 | ROSUVASTATIN CALCIUM | [facility] | + + + + | 2022-08-03 00:00 | ROSUVASTATIN CALCIUM | [facility] | + + + + | 2022-08-05 00:00 | ROSUVASTATIN CALCIUM | [facility] | + + + + | 2022-08-17 00:00 | ROSUVASTATIN CALCIUM | [facility] | + + + + | 2022-09-14 00:00 | ROSUVASTATIN CALCIUM | [facility] | + + + + | 2022-09-23 00:00 | ROSUVASTATIN CALCIUM | [facility] | + + + + | 2022-10-08 00:00 | ROSUVASTATIN CALCIUM | [facility] | + + + + | 2022-10-11 00:00 | ROSUVASTATIN CALCIUM | [facility] | + + + + | 2022-10-30 00:00 | ROSUVASTATIN CALCIUM | [facility] | + + + + | 2022-11-24 00:00 | ROSUVASTATIN CALCIUM | [facility] | + + + + | 2022-12-10 00:00 | ROSUVASTATIN CALCIUM | [facility] | + + + + | 2023-01-03 00:00 | ROSUVASTATIN CALCIUM | [facility] | + + + + | 2023-01-05 00:00 | ROSUVASTATIN CALCIUM | [facility] | + + + + | 2023-01-21 00:00 | ROSUVASTATIN CALCIUM | [facility] | + + + + | 2023-01-27 00:00 | ROSUVASTATIN CALCIUM | [facility] | + + + + | 2023-02-02 00:00 | ROSUVASTATIN CALCIUM | [facility] | + + + + | 2023-02-11 00:00 | ROSUVASTATIN CALCIUM | [facility] | + + + + | 2023-02-23 00:00 | ROSUVASTATIN CALCIUM | [facility] | + + + + | 2023-03-05 00:00 | ROSUVASTATIN CALCIUM | [facility] | + + + + | 2023-03-12 00:00 | ROSUVASTATIN CALCIUM | [facility] | + + + + | 2023-03-20 00:00 | ROSUVASTATIN CALCIUM | [facility] | + + + + | 2023-04-08 00:00 | ROSUVASTATIN CALCIUM | [facility] | + + + + | 2023-04-09 00:00 | ROSUVASTATIN CALCIUM | [facility] | + + + + | 2023-05-05 00:00 | ROSUVASTATIN CALCIUM | [facility] | + + + + | 2022-03-22 00:00 | rosuvastatin calcium 10 MG | [facility] | | | Oral Tablet [Crestor] | | + + + + | 2021-01-22 00:00 | TAMSULOSIN HCL | [facility] | + + + + | 2021-01-22 00:00 | TAMSULOSIN HCL | [facility] | + + + + | 2021-01-22 00:00 | tamsulosin hydrochloride | [facility] | | | 0.4 MG Oral Capsule | | | | [Flomax] | | + + + + | 2022-03-23 00:00 | LIPASE/PROTEASE/AMYLASE | [facility] | + + + + | 2022-03-25 00:00 | LIPASE/PROTEASE/AMYLASE | [facility] | + + + + | 2022-03-27 00:00 | LIPASE/PROTEASE/AMYLASE | [facility] | + + + + | 2022-03-28 00:00 | LIPASE/PROTEASE/AMYLASE | [facility] | + + + + | 2022-06-18 00:00 | LIPASE/PROTEASE/AMYLASE | [facility] | + + + + | 2022-06-22 00:00 | LIPASE/PROTEASE/AMYLASE | [facility] | + + + + | 2022-07-03 00:00 | LIPASE/PROTEASE/AMYLASE | [facility] | + + + + | 2022-07-08 00:00 | LIPASE/PROTEASE/AMYLASE | [facility] | + + + + | 2022-07-29 00:00 | LIPASE/PROTEASE/AMYLASE | [facility] | + + + + | 2022-08-03 00:00 | LIPASE/PROTEASE/AMYLASE | [facility] | + + + + | 2022-08-05 00:00 | LIPASE/PROTEASE/AMYLASE | [facility] | + + + + | 2022-08-17 00:00 | LIPASE/PROTEASE/AMYLASE | [facility] | + + + + | 2022-09-14 00:00 | LIPASE/PROTEASE/AMYLASE | [facility] | + + + + | 2022-09-23 00:00 | LIPASE/PROTEASE/AMYLASE | [facility] | + + + + | 2022-10-08 00:00 | LIPASE/PROTEASE/AMYLASE | [facility] | + + + + | 2022-10-11 00:00 | LIPASE/PROTEASE/AMYLASE | [facility] | + + + + | 2022-10-30 00:00 | LIPASE/PROTEASE/AMYLASE | [facility] | + + + + | 2022-11-24 00:00 | LIPASE/PROTEASE/AMYLASE | [facility] | + + + + | 2022-12-10 00:00 | LIPASE/PROTEASE/AMYLASE | [facility] | + + + + | 2023-01-03 00:00 | LIPASE/PROTEASE/AMYLASE | [facility] | + + + + | 2023-01-05 00:00 | LIPASE/PROTEASE/AMYLASE | [facility] | + + + + | 2023-01-21 00:00 | LIPASE/PROTEASE/AMYLASE | [facility] | + + + + | 2023-01-27 00:00 | LIPASE/PROTEASE/AMYLASE | [facility] | + + + + | 2023-02-02 00:00 | LIPASE/PROTEASE/AMYLASE | [facility] | + + + + | 2023-02-11 00:00 | LIPASE/PROTEASE/AMYLASE | [facility] | + + + + | 2023-02-23 00:00 | LIPASE/PROTEASE/AMYLASE | [facility] | + + + + | 2023-03-05 00:00 | LIPASE/PROTEASE/AMYLASE | [facility] | + + + + | 2023-03-12 00:00 | LIPASE/PROTEASE/AMYLASE | [facility] | + + + + | 2023-03-20 00:00 | LIPASE/PROTEASE/AMYLASE | [facility] | + + + + | 2023-04-08 00:00 | LIPASE/PROTEASE/AMYLASE | [facility] | + + + + | 2023-04-09 00:00 | LIPASE/PROTEASE/AMYLASE | [facility] | + + + + | 2023-05-05 00:00 | LIPASE/PROTEASE/AMYLASE | [facility] | + + + + | 2022-03-22 00:00 | amylase [id number] UNT / lipase | [facility] | | | 6000 UNT / protease [id number] | | | | UNT Del | | + + + + | 2023-05-05 00:00 | METOPROLOL SUCCINATE | [facility] | + + + + | 2023-01-05 00:00 | HYDROMORPHONE HCL | [facility] | + + + + | 2022-11-24 00:00 | DICYCLOMINE HCL | [facility] | + + + + | 2022-12-10 00:00 | DICYCLOMINE HCL | [facility] | + + + + | 2023-01-03 00:00 | DICYCLOMINE HCL | [facility] | + + + + | 2023-01-05 00:00 | DICYCLOMINE HCL | [facility] | + + + + | 2023-01-21 00:00 | DICYCLOMINE HCL | [facility] | + + + + | 2023-01-27 00:00 | DICYCLOMINE HCL | [facility] | + + + + | 2023-02-02 00:00 | DICYCLOMINE HCL | [facility] | + + + + | 2023-02-11 00:00 | DICYCLOMINE HCL | [facility] | + + + + | 2023-02-23 00:00 | DICYCLOMINE HCL | [facility] | + + + + | 2023-03-05 00:00 | DICYCLOMINE HCL | [facility] | + + + + | 2023-03-12 00:00 | DICYCLOMINE HCL | [facility] | + + + + | 2023-03-20 00:00 | DICYCLOMINE HCL | [facility] | + + + + | 2023-04-08 00:00 | DICYCLOMINE HCL | [facility] | + + + + | 2023-04-09 00:00 | DICYCLOMINE HCL | [facility] | + + + + | 2023-05-05 00:00 | DICYCLOMINE HCL | [facility] | + + + + Problems + + + + | date | description | facility | + + + + | 2014-05-31 00:00 | DKA (diabetic | [facility] | | | ketoacidoses) | | + + + + | 2014-05-31 00:00 | Sepsis | [facility] | + + + + | 2014-05-31 00:00 | Sepsis | [facility] | + + + + | 2014-05-31 00:00 | Diabetes mellitus with | [facility] | | | ketoacidosis | | + + + + | 2014-05-31 00:00 | Diabetes mellitus with | [facility] | | | ketoacidosis | | + + + + | 2014-05-31 00:00 | Dehydration | [facility] | + + + + | 2014-05-31 00:00 | Dehydration | [facility] | + + + + | 2016-02-03 00:00 | Bilateral otitis externa | [facility] | + + + + | 2016-02-03 00:00 | Bilateral otitis externa | [facility] | + + + + | 2016-02-03 00:00 | Acute otitis media of both | [facility] | | | ears with perforation | | + + + + | 2016-02-03 00:00 | Acute otitis media of both | [facility] | | | ears with perforation | | + + + + | 2018-01-03 00:00 | DKA (diabetic | [facility] | | | ketoacidoses) | | + + + + | 2018-01-03 00:00 | Diabetic ketoacidosis | [facility] | + + + + | 2018-01-03 00:00 | Diabetic ketoacidosis | [facility] | + + + + | 2018-01-03 00:00 | Hypertriglyceridemia | [facility] | + + + + | 2018-01-03 00:00 | Hypertriglyceridemia | [facility] | + + + + | 2018-01-03 00:00 | Hypokalemia | [facility] | + + + + | 2018-01-03 00:00 | Hypokalemia | [facility] | + + + + | 2018-01-03 00:00 | Pancreatitis | [facility] | + + + + | 2018-01-03 00:00 | Pancreatitis | [facility] | + + + + | 2018-03-14 00:00 | DKA, type 1 | [facility] | + + + + | 2018-03-14 00:00 | Type 1 diabetes mellitus | [facility] | | | with ketoacidosis | | + + + + | 2018-03-14 00:00 | Type 1 diabetes mellitus | [facility] | | | with ketoacidosis | | + + + + | 2019-03-18 00:00 | Chest wall pain | [facility] | + + + + | 2019-03-18 00:00 | Chest wall pain | [facility] | + + + + | 2021-01-20 00:00 | Urinary retention | [facility] | + + + + | 2021-01-20 00:00 | Retention of urine | [facility] | + + + + | 2021-01-20 00:00 | Retention of urine | [facility] | + + + + | 2021-01-20 00:00 | Hyperglycemia | [facility] | + + + + | 2021-01-20 00:00 | Hyperglycemia | [facility] | + + + + | 2021-01-29 00:00 | Encounter for medical | [facility] | | | screening examination | | + + + + | 2021-01-29 00:00 | Encounter for medical | [facility] | | | screening examination | | + + + + | 2021-01-29 00:00 | Encounter for Ellis | [facility] | | | catheter removal | | + + + + | 2021-01-29 00:00 | Encounter for Ellis | [facility] | | | catheter removal | | + + + + | 2021-02-02 00:00 | Abdominal pain | [facility] | + + + + | 2021-02-02 00:00 | Abdominal pain | [facility] | + + + + | 2021-02-02 00:00 | Nausea and vomiting | [facility] | + + + + | 2021-02-02 00:00 | Nausea and vomiting | [facility] | + + + + | 2021-03-01 00:00 | UTI (urinary tract | [facility] | | | infection) | | + + + + | 2021-03-01 00:00 | Urinary tract infection | [facility] | + + + + | 2021-03-01 00:00 | Urinary tract infection | [facility] | + + + + | 2021-07-21 00:00 | Acute chest wall pain | [facility] | + + + + | 2021-07-21 00:00 | Acute chest wall pain | [facility] | + + + + | 2021-07-31 00:00 | Acute gastritis | [facility] | + + + + | 2021-07-31 00:00 | Acute gastritis | [facility] | + + + + [...] + + | 2021-07-31 11:38 | OTHER LONG-TERM (CURRENT) | [facility] | | | DRUG [...] + + + | 2021-09-09 20:54 | LONG-TERM (CURRENT) USE OF | [facility] | | | INSULIN | | + + + + | 2021-09-09 20:54 | OTHER ACCOUNT INSTALLER (CURRENT) | [facility] | | | DRUG [...] 2021-09-27 00:00 | Allergic reaction caused | [facility] | | | by a drug | | + + + + | 2021-09-27 00:00 | Allergic reaction to drug | [facility] | + + + + | 2021-09-27 00:00 | Allergic reaction to drug | [facility] | + + + + [...] EFFECT OF | [facility] | | | [id number] | | | | INHIBITORS, INIT | | + + + + | 2021-09-27 21:10 | ACCOUNT INSTALLER (CURRENT) USE OF | [facility] | | | INSULIN | | + + + + | 2021-09-27 21:10 | OTHER ACCOUNT INSTALLER (CURRENT) | [facility] | | | DRUG [...] + + + | 2021-10-24 21:04 | LONG-TERM (CURRENT) USE OF | [facility] | | | INSULIN | | + + + + | 2021-10-24 21:04 | OTHER ACCOUNT INSTALLER (CURRENT) | [facility] | | | DRUG [...] + + + | 2021-11-02 23:59 | LONG-TERM (CURRENT) USE OF | [facility] | | | INSULIN | | + + + + | 2021-11-02 23:59 | OTHER LONG-TERM (CURRENT) | [facility] | | | DRUG [...] + | 2021-11-08 00:00 | Lightheaded | [facility] | + + + + | 2021-11-08 00:00 | Dyspnea | [facility] | + + + + | 2021-11-08 00:00 | Dyspnea | [facility] | + + + + | 2021-11-08 00:00 | Non-cardiac chest pain | [facility] | + + + + | 2021-11-08 00:00 | Non-cardiac chest pain | [facility] | + + + + | 2021-11-08 00:00 | Lightheadedness | [facility] | + + + + | 2021-11-08 00:00 | Lightheadedness | [facility] | + + + + [...] + + + | 2021-11-08 00:36 | LONG-TERM (CURRENT) USE OF | [facility] | | | ORAL HYPOGLYCEMIC DRUGS | | + + + + | 2021-11-08 00:36 | OTHER ACCOUNT INSTALLER (CURRENT) | [facility] | | | DRUG [...] + + + | 2021-11-26 22:29 | ACCOUNT INSTALLER (CURRENT) USE OF | [facility] | | | INSULIN | | + + + + | 2021-11-26 22:29 | OTHER LONG-TERM (CURRENT) | [facility] | | | DRUG [...] 2021-11-27 00:00 | Insulin dependent diabetes | [facility] | | | mellitus | | + + + + | 2021-11-27 00:00 | Hypertension | [facility] | + + + + | 2021-11-27 00:00 | Hypertension | [facility] | + + + + | 2021-11-27 00:00 | Insulin dependent diabetes | [facility] | | | mellitus | | + + + + | 2021-11-27 00:00 | Resolved abdominal pain | [facility] | + + + + | 2021-11-27 00:00 | Resolved abdominal pain | [facility] | + + + + [...] + + + | 2021-12-04 20:12 | LONG-TERM (CURRENT) USE OF | [facility] | | | INSULIN | | + + + + | 2021-12-04 20:12 | OTHER ACCOUNT INSTALLER (CURRENT) | [facility] | | | DRUG [...] 2021-12-05 00:00 | Hordeolum externum left | [facility] | | | lower eyelid | | + + + + | 2021-12-05 00:00 | Hordeolum externum of left | [facility] | | | lower eyelid | | + + + + | 2021-12-05 00:00 | Hordeolum externum of left | [facility] | | | lower eyelid | | + + + + | 2021-12-05 00:00 | Otitis externa | [facility] | + + + + | 2021-12-05 00:00 | Otitis externa | [facility] | + + + + [...] + + + | 2021-12-23 14:51 | ACCOUNT INSTALLER (CURRENT) USE OF | [facility] | | | INSULIN | | + + + + | 2021-12-23 14:51 | OTHER LONG-TERM (CURRENT) | [facility] | | | DRUG [...] + + + | 2022-02-07 23:34 | LONG-TERM (CURRENT) USE OF | [facility] | | | INSULIN | | + + + + | 2022-02-07 23:34 | OTHER LONG-TERM (CURRENT) | [facility] | | | DRUG [...] 00:00 | Contusion of left knee | [facility] | + + + + | 2022-02-08 00:00 | Contusion of left knee | [facility] | + + + + | [...] + + + | 2022-02-13 20:21 | LONG-TERM (CURRENT) USE OF | [facility] | | | INSULIN | | + + + + | 2022-02-13 20:21 | OTHER ACCOUNT INSTALLER (CURRENT) | [facility] | | | DRUG [...] 2022-02-17 00:00 | Hypoglycemia due to | [facility] | | | insulin | | + + + + | 2022-02-17 00:00 | Hypoglycemic reaction to | [facility] | | | insulin | | + + + + | 2022-02-17 00:00 | Hypoglycemic reaction to | [facility] | | | insulin | [...] + + + | 2022-02-17 03:45 | LONG-TERM (CURRENT) USE OF | [facility] | | [...] + + + | 2022-03-04 15:28 | ACCOUNT INSTALLER (CURRENT) USE OF | [facility] | | | INSULIN | | + + + + | 2022-03-04 15:28 | OTHER LONG-TERM (CURRENT) | [facility] | | | DRUG [...] 2022-03-07 00:00 | Upper abdominal pain | [facility] | + + + + | 2022-03-07 00:00 | Pain of upper abdomen | [facility] | + + + + | 2022-03-07 00:00 | Pain of upper abdomen | [facility] | + + + + [...] + + + | 2022-03-07 00:39 | LONG-TERM (CURRENT) USE OF | [facility] | | | INSULIN | | + + + + | 2022-03-07 00:39 | OTHER LONG-TERM (CURRENT) | [facility] | | | DRUG [...] 2022-03-12 00:00 | Candidiasis of genitalia | [facility] | + + + + | 2022-03-12 00:00 | Candidiasis of genitalia | [facility] | + + + + | [...] + + + | 2022-03-12 02:19 | LONG-TERM (CURRENT) USE OF | [facility] | | | INSULIN | | + + + + | 2022-03-12 02:19 | OTHER ACCOUNT INSTALLER (CURRENT) | [facility] | | | DRUG [...] 2022-03-16 00:00 | CRI (chronic renal | [facility] | | | insufficiency) | | + + + + | 2022-03-16 00:00 | Diabetes | [facility] | + + + + | 2022-03-16 00:00 | Diabetes mellitus | [facility] | + + + + | 2022-03-16 00:00 | Diabetes mellitus | [facility] | + + + + | 2022-03-16 00:00 | Chronic renal impairment | [facility] | + + + + | 2022-03-16 00:00 | Chronic renal impairment | [facility] | + + + + [...] + + | 2022-03-16 10:31 | OTHER ACCOUNT INSTALLER (CURRENT) | [facility] | | | DRUG [...] 00:00 | Type 1 diabetes mellitus | [facility] | + + + + | 2022-03-19 00:00 | Type 1 diabetes mellitus | [facility] | + + + + | 2022-03-19 00:00 | Colitis | [facility] | + + + + | 2022-03-19 00:00 | Colitis | [facility] | + + + + [...] + + + | 2022-03-19 10:01 | ACCOUNT INSTALLER (CURRENT) USE OF | [facility] | | | INSULIN | | + + + + | 2022-03-19 10:01 | LONG-TERM (CURRENT) USE OF | [facility] | | | OPIATE ANALGESIC | | + + + + | 2022-03-19 10:01 | OTHER ACCOUNT INSTALLER (CURRENT) | [facility] | | | DRUG [...] | 2022-03-26 00:00 | Chest pain | [facility] | + + + + | 2022-03-26 00:00 | Chest pain | [facility] | + + + + [...] + + + | 2022-03-26 06:58 | ACCOUNT INSTALLER (CURRENT) USE OF | [facility] | | | INSULIN | | + + + + | 2022-03-26 06:58 | OTHER ACCOUNT INSTALLER (CURRENT) | [facility] | | | DRUG [...] | 2022-04-21 00:00 | Epigastric pain | [facility] | + + + + | 2022-04-21 00:00 | Epigastric pain | [facility] | + + + + [...] + + + | 2022-04-21 07:11 | ACCOUNT INSTALLER (CURRENT) USE OF | [facility] | | | INSULIN | | + + + + | 2022-04-21 07:11 | OTHER LONG-TERM (CURRENT) | [facility] | | | DRUG [...] + + + | 2022-05-22 22:48 | ACCOUNT INSTALLER (CURRENT) USE OF | [facility] | | | INSULIN | | + + + + | 2022-05-22 22:48 | OTHER LONG-TERM (CURRENT) | [facility] | | | DRUG [...] 2022-05-23 00:00 | Atypical chest pain | [facility] | + + + + | 2022-05-23 00:00 | Atypical chest pain | [facility] | + + + + [...] + + + | 2022-05-26 18:10 | LONG-TERM (CURRENT) USE OF | [facility] | | [...] + + + | 2022-06-18 11:42 | ACCOUNT INSTALLER (CURRENT) USE OF | [facility] | | | INSULIN | | + + + + | 2022-06-18 11:42 | OTHER LONG-TERM (CURRENT) | [facility] | | | DRUG [...] 2022-06-21 00:00 | Acute kidney injury | [facility] | + + + + | 2022-06-21 00:00 | Acute kidney injury | [facility] | + + + + [...] + | 2022-06-22 00:00 | Acidosis | [facility] | + + + + | 2022-06-22 00:00 | Acidosis | [facility] | + + + + | 2022-07-03 00:00 | Right upper quadrant | [facility] | | | abdominal pain | | + + + + | 2022-07-03 00:00 | Right upper quadrant | [facility] | | | abdominal pain [...] + + + | 2022-07-03 05:56 | LONG-TERM (CURRENT) USE OF | [facility] | | | INSULIN | | + + + + | 2022-07-03 05:56 | OTHER ACCOUNT INSTALLER (CURRENT) | [facility] | | | DRUG [...] 00:00 | Patient left without being | [facility] | | | seen | | + + + + | 2022-07-08 00:00 | Patient left without being | [facility] | | | seen | | + + + + | 2022-07-27 00:00 | Biliary colic | [facility] | + + + + | 2022-07-27 00:00 | Biliary colic | [facility] | + + + + [...] + + | 2022-07-27 00:25 | OTHER ACCOUNT INSTALLER (CURRENT) | [facility] | | | DRUG [...] + + + | 2022-07-29 08:41 | LONG-TERM (CURRENT) USE OF | [facility] | | | INSULIN | | + + + + | 2022-07-29 08:41 | OTHER LONG-TERM (CURRENT) | [facility] | | | DRUG [...] + | 2022-08-03 00:00 | Hyperkalemia | [facility] | + + + + | 2022-08-03 00:00 | Hyperkalemia | [facility] | + + + + | 2022-08-03 00:00 | Encounter for medication | [facility] | | | refill | | + + + + | 2022-08-03 00:00 | Encounter for medication | [facility] | | | refill | [...] + + | 2022-08-03 12:33 | OTHER LONG-TERM (CURRENT) | [facility] | | | DRUG [...] + + + | 2022-09-22 21:55 | LONG-TERM (CURRENT) USE OF | [facility] | | | INSULIN | | + + + + | 2022-09-22 21:55 | OTHER LONG-TERM (CURRENT) | [facility] | | | DRUG [...] + | 2022-10-06 00:00 | Dysuria | [facility] | + + + + | 2022-10-06 00:00 | Dysuria | [facility] | + + + + [...] + + + | 2022-10-06 04:49 | LONG-TERM (CURRENT) USE OF | [facility] | | | INSULIN | | + + + + | 2022-10-06 04:49 | OTHER ACCOUNT INSTALLER (CURRENT) | [facility] | | | DRUG [...] + + + | 2022-10-10 22:40 | LONG-TERM (CURRENT) USE OF | [facility] | | | INSULIN | | + + + + | 2022-10-10 22:40 | OTHER LONG-TERM (CURRENT) | [facility] | | | DRUG [...] 00:00 | Type 1 diabetes mellitus | [facility] | | | with hyperglycemia | | + + + + | 2022-10-11 00:00 | Type 1 diabetes mellitus | [facility] | | | with hyperglycemia | | + + + + | 2022-10-30 00:00 | Renal insufficiency | [facility] | + + + + | 2022-10-30 00:00 | Renal insufficiency | [facility] | + + + + [...] + + + | 2022-10-30 01:11 | ACCOUNT INSTALLER (CURRENT) USE OF | [facility] | | | INSULIN | | + + + + | 2022-10-30 01:11 | OTHER ACCOUNT INSTALLER (CURRENT) | [facility] | | | DRUG [...] 2022-11-24 00:00 | Chronic abdominal pain | [facility] | + + + + | 2022-11-24 00:00 | Chronic abdominal pain | [facility] | + + + + [...] + + + | 2022-11-24 20:55 | LONG-TERM (CURRENT) USE OF | [facility] | | | INSULIN | | + + + + | 2022-11-24 20:55 | OTHER ACCOUNT INSTALLER (CURRENT) | [facility] | | | DRUG [...] | 2022-12-07 00:00 | Acute pancreatitis | [facility] | + + + + | 2022-12-07 00:00 | Acute pancreatitis | [facility] | + + + + [...] + + + | 2022-12-08 11:00 | LONG-TERM (CURRENT) USE OF | [facility] | | | INSULIN | | + + + + | 2022-12-08 11:00 | OTHER ACCOUNT INSTALLER (CURRENT) | [facility] | | | DRUG [...] | 2023-01-03 00:00 | Recurrent pancreatitis | [facility] | + + + + | 2023-01-03 00:00 | Recurrent pancreatitis | [facility] | + + + + | 2023-01-03 00:00 | Abdominal bloating | [facility] | + + + + | 2023-01-03 00:00 | Abdominal bloating | [facility] | + + + + | 2023-01-03 00:00 | Left against medical | [facility] | | | advice | | + + + + | 2023-01-03 00:00 | Left against medical | [facility] | | | advice | [...] + + + | 2023-01-20 23:40 | LONG-TERM (CURRENT) USE OF | [facility] | | [...] + + + | 2023-01-26 21:48 | LONG-TERM (CURRENT) USE OF | [facility] | | [...] + + + | 2023-02-02 00:06 | LONG-TERM (CURRENT) USE OF | [facility] | | [...] | 2023-02-11 00:00 | Positive blood | [facility] | | | test | | + + + + | 2023-02-11 00:00 | Positive blood | [facility] | | | test | | + + + + | 2023-02-11 00:00 | | [facility] | + + + + | 2023-02-11 00:00 | | [facility] | + + + + [...] + + + | 2023-02-11 00:33 | ACCOUNT INSTALLER (CURRENT) USE OF | [facility] | | | INSULIN | | + + + + | 2023-02-11 00:33 | OTHER LONG-TERM (CURRENT) | [facility] | | | DRUG [...] + + + | 2023-02-23 00:40 | ACCOUNT INSTALLER (CURRENT) USE OF | [facility] | | | INSULIN | | + + + + | 2023-02-23 00:40 | OTHER ACCOUNT INSTALLER (CURRENT) | [facility] | | | DRUG [...] + + + | 2023-03-04 21:44 | ACCOUNT INSTALLER (CURRENT) USE OF | [facility] | | | INSULIN | | + + + + | 2023-03-04 21:44 | OTHER ACCOUNT INSTALLER (CURRENT) | [facility] | | | DRUG [...] 2023-03-12 00:00 | Poorly controlled diabetes | [facility] | | | mellitus | | + + + + | 2023-03-12 00:00 | Poorly controlled diabetes | [facility] | | | mellitus | [...] + + + | 2023-03-12 11:46 | LONG-TERM (CURRENT) USE OF | [facility] | | [...] + + + | 2023-03-20 13:05 | LONG-TERM (CURRENT) USE OF | [facility] | | | INSULIN | | + + + + | 2023-03-20 13:05 | OTHER LONG-TERM (CURRENT) | [facility] | | | DRUG [...] + + + | 2023-04-08 00:15 | ACCOUNT INSTALLER (CURRENT) USE OF | [facility] | | [...] 2023-04-10 00:00 | Uncontrolled type 1 | [facility] | | | diabetes mellitus | | + + + + | 2023-04-22 00:00 | 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 | | + + + + | 2023-04-22 00:00 | Chronic kidney disease | [facility] | + + + + [...] + + + | 2023-04-22 00:28 | LONG-TERM (CURRENT) USE OF | [facility] | | | INSULIN | | + + + + | 2023-04-22 00:28 | OTHER LONG-TERM (CURRENT) | [facility] | | | DRUG [...] | 2023-05-05 00:00 | Flank pain | [facility] | + + + + [...] + + + | 2023-05-05 21:18 | LONG-TERM (CURRENT) USE OF | [facility] | | | INSULIN | | + + + + | 2023-05-05 21:18 | OTHER LONG-TERM (CURRENT) | [facility] | | | DRUG [...] 00:00 | EXCISION OF RIGHT LARGE | [facility] | | | INTESTINE, ENDO, DIAGN | | + + + + | 2022-03-20 00:00 | EXCISION OF LEFT LARGE | [facility] | | | INTESTINE, ENDO, DIAGN | | + + + + | 2022-03-20 00:00 | EXCISION OF CECUM, ENDO, | [facility] | | | DIAGN | | + + + + | 2022-03-20 00:00 | EXCISION OF SIGMOID COLON, | [facility] | | | ENDO, DIAGN | | + + + + | 2022-03-20 00:00 | EXCISION OF RECTUM, ENDO, | [facility] | | | DIAGN | | + + + + | 2022-03-20 00:00 | TRANSFUSE NONAUT RED BLOOD | [facility] | | | CELLS IN PERIPH VEIN, PERC | | | | | | + + + + | 2022-03-20 00:00 | Colonoscopy with biopsy of | [facility] | | | colon | [...] | | (unavailable | | Andrea | [phone] | | | | ) | | [...] | | (unavailable | | Andrea | [phone] | | | | ) | | [...] | | (unavailable | | Andrea | [phone] | | | | ) | | [...] | | (unavailable | | Andrea | [phone] | | | | ) | | [...] | | | | | | | Greek | | | | | | + [...] NEGATIVE | (missing) | (missing) | | [id number] | 07:45 | Andrea | | | [...] (missing) | | (unavailable | 06:30 | Andrae | | | | | [...] (missing) | | (unavailable | 14:34 | Nadrea | | | | | [...] (missing) | | (unavailable | 00:06:08 | Andera | | | | | [...] (missing) | | (unavailable | 00:06:08 | Adnrea | | | | | [...] (missing) | | (unavailable | 02:30:07 | Andrae | | | | | [...] (missing) | | (unavailable | 14:11:07 | Andrae | | | | | [...] (missing) | | (unavailable | 13:50:07 | Anrdea | | | | | [...] (missing) | | group typing | | Andrae | | | | | | | [...] | trans packed | | Andrea | [phone] | | | | RBC | | [...] (missing) | | group typing | | [facility] | | | | + + + +-----+ + + Social History + + + + | date | description | facility | + + + + | 2022-03-22 00:00 | Never smoker | [facility] | + + + + [...]
[~2023-05-07 18:28] MED LIST changes: +PYRIDIUM100 MG PO
--- OUTSIDE RECORDS SUMMARY | 2023-05-07 18:30 | XMS ---
PreManage Notification: MONTSE GUTIERREZ Security Environmental Technical Officer Events 3 event(s) in the past 18 months Most recent security events: Elopement at [facility] 01/03/2023 12:12 - Patient eloped before treatment completed. - Patient with suicidal and/or homicidal ideations eloped. - Patient eloped with IV in place. Details: Patient left AMA Elopement at [facility] 08/17/2022 17:10 - Patient eloped before treatment completed. - Patient with suicidal and/or homicidal ideations eloped. - Patient eloped with IV in place. Details: Patient LWBS. Elopement at [facility] 07/08/2022 22:03 - Patient eloped before treatment completed. - Patient with suicidal and/or homicidal ideations eloped. - Patient eloped with IV in place. Details: PATIENT LWBS CRITERIA MET - 6 ED Visits in 6 Months - [facility]MP [facility] - 2 Visits in 30 Days - [facility] - 3 Facilities in 90 Days CARE PROVIDERS JORDEN HAYWOOD Nurse Practitioner: 04/21/2023-Current PHONE: [phone] [facility] 01/22/2021-[facility] PHONE: [phone] SAUL THORPE Physician Retail Team Leader 03/19/2019-Current PHONE: Unknown Jef has no Care Guidelines for this patient. Care History Medical/Surgical 09/24/2021 [facility] Contacted Gerri pallet [id number] of recent ED visits. They will follow up with the patient. 02/05/2021 [facility] - [facility] CALLED AND SPOKE WITH LABOR GANG SUPERVISOR WALDEMAR- DISCUSSED RECENT ED VISITS- PRIMARY CARE PHYSICIAN REVIEWED PATIENT RECENT ED VISITS AND DID CONTACT PATIENT-THEY HAVE INSTRUCTED PATIENT TO CONTACT PIL[facility] CAN ROUTER DR HAMMOND TO SCHEDULE AND EARLIER APT IF POSSIBLE. PATIENT HAS TO MAKE THE APT FOR FOLLOW UP THE CLINIC CAN\T\#39;T SCHEDULE THE APT FOR THE PATIENT. - PATIENT HAS AN APT 02/06/[address] CHRISTENSEN. 01/25/2021 [facility] VOIDING TRIAL SCHEDULED WITH DR CHRISTENSEN UROLOGIST [place] [address] TOTAL 39 NOTE: Visits indicate total known visits. ED/UCC VISIT TRACKING (12 MO.) 05/07/2023 18:28 [facility] TYPE: Emergency COMPLAINT: - ABDOMINAL PAIN 05/05/2023 21:18 [facility] TYPE: Emergency COMPLAINT: - FLANK PAIN DIAGNOSES: - Allergy status to narcotic agent - Allergy status to other antibiotic agents - Allergy status to other drugs, medicaments and biological substances - Allergy status to penicillin - Allergy status to sulfonamides - Chronic kidney disease, unspecified - Dysuria - Hypertensive chronic kidney disease with stage 1 through stage 4 chronic kidney disease, or unspecified chronic kidney disease - [facility]CI (current) use of insulin - Other longterm (current) 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 - Type 2 diabetes mellitus with diabetic chronic kidney disease - Unspecified abdominal pain 04/22/2023 00:27 [facility] TYPE: Emergency COMPLAINT: - ABD PAIN 04/18/2023 17:16 [facility] TYPE: Emergency DIAGNOSES: - Acute pancreatitis without [...] disease, or unspecified chronic kidney disease - watermaster (current) use of insulin - Right upper [...] penicillin - Allergy status to sulfonamides - FCI (current) use of insulin - Other longterm (current) 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 - Upper abdominal pain, [...] disease, or unspecified chronic kidney disease - watermaster (current) use of insulin - Nausea - [...] to sulfonamides - Essential (primary) hypertension - watermaster (current) use of insulin - Other chronic pain - Other longterm (current) 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 - Right lower quadrant [...] disease, or unspecified chronic kidney disease - watermaster (current) use of insulin - Other watermaster (current) drug therapy - Type 1 diabetes [...] Less than 8 weeks gestation of - FCI (current) use of insulin - Other watermaster (current) drug therapy - Other specified related conditions, first trimester - Pre-existing hypertensive chronic kidney disease complicating , first trimester - Type 2 diabetes mellitus with diabetic chronic kidney disease - Unspecified pre-existing diabetes mellitus in , first [facility] DIAGNOSES: - [...] disease, or unspecified chronic kidney disease - watermaster (current) use of insulin - Other chronic [...] - FCI (current) use of insulin - Type 1 [...] - Dysuria - Essential (primary) hypertension - watermaster (current) use of insulin - Type 2 [...] Essential (primary) hypertension - Hyperlipidemia, unspecified - watermaster (current) use of insulin - Other chronic pain - Other longterm (current) 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 - Type 2 diabetes mellitus with hyperglycemia - Unspecified abdominal pain 11/14/2022 19:46 [facility] TYPE: Emergency DIAGNOSES: - Generalized abdominal pain - Type 2 diabetes mellitus with hyperglycemia - abd pain - Abdominal Pain Plus 19 More Visits INPATIENT VISIT TRACKING (12 MO.) [...] kidney disease - Hypo-osmolality and hyponatremia - FCI (current) use of insulin - Other watermaster (current) drug therapy - Type 1 diabetes [...] kidney disease - Hypokalemia - Hypokalemia - [facility]CI (current) use of insulin - watermaster (current) use of insulin - Other dental procedure status - Other dental procedure status - Other longterm (current) 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 - Other watermaster (current) drug therapy - Personal history of [...] - Urinary tract infection, site not specified [id number]
[2023-05-07 19:31] LABS: BASOPHILS 1.1 % (0-2); HEMATOCRIT 30.6 % (35.0-50.0); MCH 28.9 (27-36); MCHC 32.6 g/dl (30-36); MCV 88.6 fl (81-99); MONOCYTES 5.3 % (0-12); NEUTROPHILS 73.6 % (39-80); PLATELET COUNT 309 K/uL (140-440); RBC 3.45 M/ul (4.3-5.7); RDW 13.8 (10.5-15.0)
[2023-05-07 19:45] LABS: ALBUMIN 3.8 g/dL (3.4-5.0); ALBUMIN/GLOBULIN RATIO 0.88 (1.1-2.4); ANION GAP 18.7 (7-21); BILIRUBIN, TOTAL 0.2 ng/dL (0.2-1.0); BUN/CREATININE RATIO 14.75 (6.0-28.6); CREATININE, SERUM 2.44 mg/dL (0.55-1.02); POTASSIUM 3.7 mmol/L (3.5-5.1); PROTEIN, TOTAL 8.1 g/dL (6.4-8.2)
[2023-05-07 19:47] LABS: BILIRUBIN, URINE NEGATIVE (negative); BLOOD/HGB, URINE SMALL (Negative); KETONE, URINE NEGATIVE (Negative); LEUK ESTERASE, URINE NEGATIVE (negative); NITRITE, URINE NEGATIVE (negative)
[2023-05-07 19:56] LABS: CASTS, URINE GRANULAR 3+ \\lpf; COLLECTION TYPE, URINE CLEAN CATCH; CRYSTALS, URINE NONE SEEN (0-1+); EPITHELIAL CELLS, URINE SQUAMOUS 3+ /lpf (0-1+); REFLEX CULTURE, URINE No (No)
[2023-05-07 19:57] LABS: BACTERIA, URINE 2+ /hpf (negative)
[2023-05-07 19:59] LABS: PH, VENOUS 7.328 (7.31-7.41)
--- NOTE | 2023-05-07 22:05 | NUR ---
pt ARRIVED TO [facility] FLOOR VIA WC, ALSO AT BEDSIDE. pt AND ORINETED TO ROOM-DISCUSSED POC. pt DROWSY, BUT AWAKENS TO VOICE. A/OX4, CALL LIGHT IN REACH. IV SITE WNL, IV FLUID BOLUS INFUSING DIRECTED AND IV MAINTENANCE FLUIDS TO RESUME ONCE BOLUS COMPLETED. NO PAIN OR NAUSEA REPORTED BY pt TO THIS RN. WILL MONITOR. ADMISSION COMPLETED. ACCUCHECK RESULT OF 174, PREVIOUSLY IN THE 300'S IN THE ED. DISCUSSED WITH ZONING ENGINEER ANTONIETA, CLINICAL JUDGEMENT-WILL HOLD SCHEDULED 1 UNIT INSULIN SS AND CHECK AGAIN AT 0200. NO ASSITIONAL NEEDS OR CONCENRS VERBALIZED.
[2023-05-07 22:06] VITALS: BP 133/84
--- NOTE | 2023-05-07 23:08 | NUR ---
Brought patient's a lunch box. Measured urine and emptied from hat, 400 out. Brought a warm blanket. Nothing else needed at this time. Call lit is within reach and patient is sleeping.
--- NOTE | 2023-05-07 23:36 | NUR ---
ROUNDED ON pt, pt RESTING QUIETLY ON RA. RR EVEN AND UNLABORED. NO DISTRESS NOTED. pt AWOKE BRIEFLY WHILE THIS RN ENTERED ROOM TO CHECK ON IV SITE-pt THEN RETURNED TO SLEEP. DENIED NEEDS OR CONCERNS, REMAINS IN ROOM. IV SITE WNL, FLUIDS INFUSING DIRECTED. CALL LIGHT IN REACH.
[2023-05-08] VITALS (7 sets, daily range): BP systolic 121–157; BP diastolic 77–98
--- NOTE | 2023-05-08 01:27 | NUR ---
Went and took two am vitals and also assisted her to bathroom. She voided 200. Back to bed and is requesting pain meds. Brought her two warm blankets. is in room. Call light is within reach.
--- NOTE | 2023-05-08 01:56 | NUR ---
CALL LIGHT ANSWERED, pt REPORTS 8/10 ABD PAIN, PRN PAIN MEDICATION GIVEN-SEE EMAR. pt ASKING FOR PRN BENADRYL R/T ITCHINESS FROM DILAUDID, pt EDUCATED PRN BENADRYL NOT AVAILABLE ON EMAR. pt WISHES FOR RN TO CALL MD. TELEPHONE ORDER READ BACK FROM DR TORRES FOR 25MG IV BENADRYL Q6H PRN TO START NOW. PRN BENADRYL THEN GIVEN-SEE EMAR. PRN ACCUCHECK ALSO COMPLETED D/T pt's BRITTLE DIABETIC HX, pt's OWN MACHINE SHOWS RESULT OF 193, HOSPITAL ACCUCHECK RESULT OF 202. pt REMAINS NPO, PER FICTION AND NONFICTION WRITER PROSE, MD PLANS TO ADVANCE DIET TO POSSIBLY CLEARS IN THE MORNING. NO ADDITIONAL NEEDS, CALL LIGHT IN REACH AND REMAINS IN ROOM, WARM BLANKET ALSO PROVIDED.
--- NOTE | 2023-05-08 02:53 | NUR ---
ROUNDED ON pt, pt RESTING IN BED WITH EYES CLOSED. ON RA, RR EVEN AND UNLABORED. NO DISTRESS NOTED, pt APPEARS COMFORTABLE. CALL LIGHT IN REACH.
--- NOTE | 2023-05-08 04:15 | NUR ---
ASSISTED pt TO ABTHROOM AND BACK TO BED SBA, STEADY ON FEET. IV SITE WNL, FLUIDS CONTINUE TO INFUSE DIRECTED. NO ADDITIONAL NEEDS OR CONCERNS VERBALIZED. CALL LIGHT IN REACH.
[2023-05-08 05:53] LABS: HEMOGLOBIN 8.2 g/dL (12.0-18.0); RDW 14.3 (10.5-15.0)
[2023-05-08 05:54] LABS: BASOPHILS 0.7 % (0-2); EOSINOPHILS 1.8 % (0-6); HEMATOCRIT 25.3 % (35.0-50.0); LYMPHOCYTES 32.3 % (24-44); MCH 28.8 (27-36); MCHC 32.3 g/dl (30-36); MCV 89.2 fl (81-99); MONOCYTES 9.2 % (0-12); PLATELET COUNT 268 K/uL (140-440); RBC 2.83 M/ul (4.3-5.7)
[2023-05-08 06:05] LABS: ANION GAP 15.9 (7-21); BUN/CREATININE RATIO 15.15 (6.0-28.6); CALCIUM 8.6 mg/dL (8.5-10.1); CREATININE, SERUM 1.98 mg/dL (0.55-1.02); POTASSIUM 3.9 mmol/L (3.5-5.1)
--- NOTE | 2023-05-08 06:31 | NUR ---
IN ROOM TO ROUND ON pt, pt AWAKE AND RESTING IN BED. IV SITE WNL, FLUIDS INFUSING DIRECTED. WARM BLANKET ALSO PROVIDED, NO ADDITIONAL NEEDS. CALL LIGHT IN REACH.
--- NOTE | 2023-05-08 07:35 | NUR ---
pt resting in bed, bs taken. pt bsc was full so i emptied. pt req ice chips. rn notified. pt not provided ice chips and was informed rn would verify if okay. no further needs call light within reach
--- NOTE | 2023-05-08 08:45 | NUR ---
PATIENT REQUESTING SOMETHING FOR A REPORTED YEAST INFECTION. PATIENT RECEIVED BENADRYL 25MG IV AT THIS TIME FOR ITCHING. THIS RN TOLD PATIENT I WOULD DISCUSS HER REQUEST WITH CURRENT PROVIDER. INSULIN PER CLIDING SCALE ADMIN AT THIS TIME. PATIENT REPORTS TOLERABLE ABDOMINAL PAIN AT THIS TIME. NO CURRENT NEEDS. PERSONAL SUPPLIES AND CALL LIGHT WITHIN REACH.
--- NOTE | 2023-05-08 09:52 | NUR ---
PT IN BED. MALE PLUCK SEPARATOR IN CHAIR WORKING ON LAPTOP. PT ACCEPTED OFFER OF GUIDEPOST AND ACTIVITY BOOK. UPON MY RETURN WITH THOSE ITEMS PT HAD FALLEN ASLEEP. LEFT ITEMS ON TRAY. PLUCK SEPARATOR DENIED NEEDS. EXITED ROOM AND PRAYED SILENTLY FOR HEALING AND ONGOING BLESSING.
--- NOTE | 2023-05-08 10:12 | NUR ---
ADMIN DILAUDID 1MG IV FOR REPORTS OF 7/10 ABDOMINAL PAIN.
--- NOTE | 2023-05-08 10:20 | NUR ---
MED REC COMPLETE
--- NOTE | 2023-05-08 13:30 | NUR ---
COLTON FROM DR. TORRES TO CHANGE CURRENT DOSE OF DILAUDID TO EVERY 12 HOURS, START PATIENT ON 60G CARB DIET FOR DINNER AND ADD OXYCODONE 7.5MG EVERY 6 HOURS NEEDED FOR PAIN.
--- NOTE | 2023-05-08 14:41 | NUR ---
PATIENT REPORTS HER BLOOD SUGAR IS 68 PER HER HOME UNIT. UNIT READING IS 71. JUICE AND SNACK PROVIDED TO PATIENT AT THIS TIME.
--- NOTE | 2023-05-08 15:37 | NUR ---
ADMIN OXYCODONE 7.5MG PO AND BENADRYL 25MG IV FOR REPORTS OF ITCHING AND 6/10 ABDOMINAL PAIN. WARM BLANKET AND FRESH WATER PROVIDED. IV SITE REMAINS PATENT.
--- NOTE | 2023-05-08 19:30 | NUR ---
REPORT RECEIVED FROM DAY SHIFT NURSE. PT SITTING UP IN BED WATCHING TV. CALL LIGHT WITHIN REACH. SAFETY PRECAUTIONS IN PLACE. WARM BLANKET GIVEN PER PT REQUEST. NO OTHER NEEDS AT THIS TIME.
--- NOTE | 2023-05-08 23:30 | NUR ---
CALL LIGHT ANSWERED, pt ASKING FOR JUICE, IN ROOM TO ASSESS. pt REPORTS BLOOD SUGAR 69 ON OWN MACHINE, HOSPITAL ACCUCHECK RESULT OF 62, REPEATED WITH AGAIN RESULT OF 62. pt GIVEN ORANGE JUICE, DRINKING IN BED. ALSO IN ROOM. pt CONVERSATIONAL, SPEECH APPROPRIATE. HX BRITTLE DIABETIC. CALL LIGHT IN REACH, WILL MONITOR AND RECHECK BLOOD SUGAR.
--- NOTE | 2023-05-08 23:48 | NUR ---
BLOOD SUGAR RECECKED BY GEE BIRCH, RESULT OF 64. pt REMAINS AWAKE AND CONVERSATIONAL, pt GIVEN SANDWHICH BOX AND EATING NOW IN BED. CALL LIGHT REMAINS IN CLOSE REACH.
--- NOTE | 2023-05-09 00:15 | NUR ---
UPON ASSESSMENT, PT BLOOD SUGAR IN THE 60'S. PT ASYMTOMATIC AND IN NO DISTRESS. JUICE, A SANDWICH, AND PEANUT BUTTER CRACKERS GIVEN AT THIS TIME. UPON REASSESMENT PATIENT BLOOD SUGAR 100'S. DR. TORRES NOTIFIED OF PT BS DROPPING AND INCREASING AFTER FOOD WAS GIVEN. NO NEW ORDERS AT THIS TIME. WILL CONTINUE TO MONITOR.
--- NOTE | 2023-05-09 01:55 | NUR ---
PT CALLED NURSE INTO ROOM PT'S BLOOD GLUCOSE METER WAS SHOWING PT'S BLOOD SUGAR BACK DOWN IN THE 70'S. UPON ASSESSMENT BY THIS NURSE PT BLOOD SUGAR 74. PT IN NO ACUTE DISTRESS AND ASYMTOMATIC. DR. TORRES NOTIFIED OF PT BS DROPPING AND ORDERS FOR D5W X1 1000ML BAG TO BE INFUSED AT 75ML AN HOUR AND TO REASSESS PT IN THE MORNING. WILL CONTINUE TO MONITOR.
--- NOTE | 2023-05-09 02:00 | NUR ---
ORDERS FOR 4MG IV ZOFRAN Q6H PRN PLACED BY THIS RN PER REQUEST OF PRIMARY RN TONG WHO RECEIVED ORDER FROM DR TORRES. READ BACK FROM PRIMARY RN TO CONFIRM ORDER.
--- NOTE | 2023-05-09 05:00 | NUR ---
UPON ASSESSMENT, PT'S BLOOD SUGAR 244. PT RESTING IN BED COMFORTABLY WITHOUT SIGNS OF DISTRESS. DR. TORRES NOTIFIED OF PT BS. ORDERS TO D/C IV D5W AT THIS TIME AND CONTINUE PT'S NORMAL SALINE. WILL CONTINUE TO MONITOR.
[2023-05-09 05:28] VITALS: BP 109/69
--- NOTE | 2023-05-09 06:52 | NUR ---
PT BLOOD SUGAR 314. PT IN NO ACUTE DISTRESS AND RESTING IN BED COMFORTABLY. BREATHING EVEN AND UNLABORED. DR. TORRES NOTIFIED AND ORDERS TO GIVE HALF OF SLIDING SCALE DOSE. WILL CONTINUE TO MONITOR.
--- NOTE | 2023-05-09 07:29 | NUR ---
REPORT GIVEN TO DAY SHIFT RN. PT RESTING COMFORTABLY IN BED. BREATHING EVEN AND UNLABORED. CALL LIGHT WITHIN REACH. SAFETY PRECAUTIONS IN PLACE.
--- NOTE | 2023-05-09 09:10 | NUR ---
Benadryl 25mg IV and oxycodone 7.5mg po admin at this time for reported itching and abdominal pain.
[2023-05-09 09:57] VITALS: BP 141/87
--- NOTE | 2023-05-09 10:18 | NUR ---
PT AND HER HEEL SEAT POUNDER WERE IN BED AND APPEARED TO BE SLEEPING. DID NOT DISTURB. SAID SILENT PRAYER FOR HEALING OF BODY AND SPIRIT.
[2023-05-09 10:55] LABS: HEMOGLOBIN 8.1 g/dL (12.0-18.0)
[2023-05-09 10:57] LABS: BASOPHILS 0.7 % (0-2); EOSINOPHILS 3.4 % (0-6); HEMATOCRIT 25.3 % (35.0-50.0); LYMPHOCYTES 39.3 % (24-44); MCH 28.8 (27-36); MCHC 31.9 g/dl (30-36); MCV 90.4 fl (81-99); MONOCYTES 8.3 % (0-12); NEUTROPHILS 48.3 % (39-80); PLATELET COUNT 280 K/uL (140-440); RDW 14.3 (10.5-15.0)
[2023-05-09 11:06] LABS: ANION GAP 14.7 (7-21); BUN/CREATININE RATIO 9.14 (6.0-28.6); CALCIUM 9.4 mg/dL (8.5-10.1); CREATININE, SERUM 1.75 mg/dL (0.55-1.02); POTASSIUM 3.7 mmol/L (3.5-5.1)
[2023-05-09] MEDS ORDERED: OXYCODONE HCL5 MG PO (11:36)
[2023-05-11] MEDS ORDERED: PROMETHAZINE HC25 M1 PO (06:08)
== END 2023-05-09 12:45 | disposition home or self-care (01) ==
LOC: ED 18:28 → MS 18:29 → ED 20:48 → MS 05-09 12:45
PROVIDERS: Emergency Medicine; Family Medicine; ADMIT Internal Medicine; ATTEND Internal Medicine
DX: K85.90 Acute pancreatitis without necrosis or infection, unspecified (principal); E87.1 Hypo-osmolality and hyponatremia; E78.1 Pure hyperglyceridemia; E11.22 Type 2 diabetes mellitus with diabetic chronic kidney disease; N18.9 Chronic kidney disease, unspecified; Z88.2 Allergy status to sulfonamides; Z88.1 Allergy status to other antibiotic agents; Z88.8 Allergy status to other drugs, medicaments and biological substances; Z88.0 Allergy status to penicillin; Z88.5 Allergy status to narcotic agent; Z79.4 Long term (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; Z79.899 Other long term (current) 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
CPT/HCPCS: 36415; 80048; 80053; 81001; 82150; 82803; 83690; 83735; 84478; 84702; 85025; 96361; 96374; 96375; 96376; 99284-25; G0378; J0696; J1170; J1200; J1790; J1815; J1885; J2405; J7030; J7070; J7121

== ENCOUNTER 2023-05-30 11:43 | Emergency (ER) | payer OTHER ==
[~2023-05-30] VITALS: Ht 149.9 cm; Wt 39.2 kg
[~2023-05-30 11:43] MED LIST changes: +PROMETHAZINE HC25 M1 PO
--- OUTSIDE RECORDS SUMMARY | 2023-05-30 11:46 | XMS ---
PreManage Notification: MONTSE GUTIERREZ Security Utility Gelatin Maker Events 3 event(s) in the past 18 months Most recent security events: Elopement at [facility] 01/03/2023 12:12 - Patient eloped before treatment completed. - Patient with suicidal and/or homicidal ideations eloped. - Patient eloped with IV in place. Details: Patient left AMA Elopement at [facility] 08/17/2022 17:10 - Patient eloped before treatment completed. - Patient with suicidal and/or homicidal ideations eloped. - Patient eloped with IV in place. Details: Patient LWBS. Elopement at [facility] 07/08/2022 22:03 - Patient eloped before treatment completed. - Patient with suicidal and/or homicidal ideations eloped. - Patient eloped with IV in place. Details: PATIENT LWBS CRITERIA MET - 6 ED Visits in 6 Months - [facility] - 2 Visits in 30 Days CARE PROVIDERS JORDEN HAYWOOD Nurse Practitioner: 04/21/2023-[facility] PHONE: [phone] [facility] 01/22/2021-[facility] PHONE: [phone] SAUL THORPE Physician Social Worker Delinquency Prevention 03/19/2019-Current PHONE: Unknown Jef has no Care Guidelines for this patient. Care History Medical/Surgical 09/24/2021 [facility] Contacted Gerri freight callerQijwdce-Pfslhq-nmencugl of recent ED visits. They will follow up with the patient. 02/05/2021 [facility] - W CALLED AND SPOKE WITH CLINICAL PSYCHIATRIST WALDEMAR- DISCUSSED RECENT ED VISITS- PRIMARY CARE PHYSICIAN REVIEWED PATIENT RECENT ED VISITS AND DID CONTACT PATIENT-THEY HAVE INSTRUCTED PATIENT TO CONTACT SOLAR INSTALLATION FOREMAN DR HAMMOND TO SCHEDULE AND EARLIER APT IF POSSIBLE. PATIENT HAS TO MAKE THE APT FOR FOLLOW UP THE CLINIC CAN\T\#39;T SCHEDULE THE APT FOR THE PATIENT. - PATIENT HAS AN APT 02/06/[address] CHRISTENSEN. 01/25/2021 [facility] VOIDING TRIAL SCHEDULED WITH DR CHRISTENSEN UROLOGIST 02/06/21 [place] VISIT COUNT (12 MO.) 31 [facility]. [address] TOTAL 38 NOTE: Visits indicate total known visits. ED/UCC VISIT TRACKING (12 MO.) 05/30/2023 11:44 [facility] [place] TYPE: Emergency COMPLAINT: - ABD PAIN, NAUSEA 05/11/2023 04:56 [facility] [place] TYPE: Emergency COMPLAINT: - CP,NUMBNESS LOW SUGAR AND N/V DIAGNOSES: - Allergy status to narcotic agent - Allergy status to other antibiotic agents - Allergy status to other drugs, medicaments and biological substances - Allergy status to penicillin - Allergy status to sulfonamides - Chronic kidney disease, unspecified - Gastritis, unspecified, without bleeding - Hyperlipidemia, unspecified - Hypertensive chronic kidney disease with stage 1 through stage 4 chronic kidney disease, or unspecified chronic kidney disease - USP (current) use of insulin - Nausea with vomiting, unspecified - Other termination clerk (current) drug therapy - Type 1 diabetes mellitus with diabetic chronic kidney disease - Type 1 diabetes mellitus with hyperglycemia 05/05/2023 21:18 [facility] [place] TYPE: Emergency [...] disease, or unspecified chronic kidney disease - USP (current) use of insulin - Other termination clerk (current) drug therapy - Type 2 diabetes mellitus with diabetic chronic kidney disease - Unspecified abdominal pain 04/22/2023 00:27 [facility] [place] TYPE: Emergency COMPLAINT: - ABD PAIN 04/18/2023 17:16 [facility] TYPE: Emergency DIAGNOSES: - Acute pancreatitis without necrosis or infection, unspecified - Abdominal Pain 04/09/2023 01:[address] [facility] [place] TYPE: Emergency COMPLAINT: - ABD PAIN 04/08/2023 00:15 [facility] [place] TYPE: Emergency COMPLAINT: - [...] disease, or unspecified chronic kidney disease - rat exterminator (current) use of insulin - Right upper quadrant pain - Type 1 diabetes mellitus with diabetic chronic kidney disease 03/20/2023 13:05 [facility] [place] [place] TYPE: Emergency COMPLAINT: - ABD PAIN, RECTAL BLEEDING, BACK PAIN DIAGNOSES: - Acute pancreatitis without necrosis or infection, unspecified - Allergy status to narcotic agent - Allergy status to other antibiotic agents - Allergy status to other drugs, medicaments and biological substances - Allergy status to penicillin - Allergy status to sulfonamides - USP (current) use of insulin - Other termination clerk (current) drug therapy - Upper abdominal pain, [...] disease, or unspecified chronic kidney disease - USP (current) use of insulin - Nausea - [...] to sulfonamides - Essential (primary) hypertension - rat exterminator (current) use of insulin - Other chronic pain - Other senior care (current) drug therapy - Right lower quadrant [...] disease, or unspecified chronic kidney disease - USP (current) use of insulin - Other termination clerk (current) drug therapy - Type 1 diabetes [...] Less than 8 weeks gestation of - USP (current) use of insulin - Other senior care (current) drug therapy - Other specified related conditions, first trimester - Pre-existing hypertensive chronic kidney disease complicating , first trimester - Type 2 diabetes mellitus with diabetic chronic kidney disease - Unspecified pre-existing diabetes mellitus in , first trimester 02/07/2023 00:38 [place] [facility] TYPE: Emergency DIAGNOSES: - Generalized abdominal [...] disease, or unspecified chronic kidney disease - USP (current) use of insulin - Other chronic [...] disease, or unspecified chronic kidney disease - rat exterminator (current) use of insulin - Type 1 diabetes mellitus with diabetic chronic kidney disease - Unspecified abdominal pain 01/20/2023 23:40 [facility] [place] TYPE: Emergency COMPLAINT: - FLANK PAIN,MITCHELL TO URINATE DIAGNOSES: - Allergy status to narcotic agent - Allergy status to other drugs, medicaments and biological substances - Allergy status to penicillin - Allergy status to sulfonamides - Dysuria - Essential (primary) hypertension - rat exterminator (current) use of insulin - Type 2 diabetes mellitus without complications - Urinary tract infection, site not specified 01/03/2023 20:27 [facility] [place] TYPE: Emergency COMPLAINT: - ABDOMINAL PAIN 01/03/2023 12:12 [facility] [place] TYPE: Emergency COMPLAINT: - ABD [...] with diabetic chronic kidney disease 12/07/2022 16:50 [facility] [place] TYPE: Emergency COMPLAINT: - ABDOMINAL PAIN 11/24/2022 20:55 [facility] [place] TYPE: Emergency COMPLAINT: - HIGH BLOOD SUGAR DIAGNOSES: - Allergy status to narcotic agent - Allergy status to other antibiotic agents - Allergy status to other drugs, medicaments and biological substances - Allergy status to penicillin - Allergy status to sulfonamides - Essential (primary) hypertension - Hyperlipidemia, unspecified - rat exterminator (current) use of insulin - Other chronic pain - Other termination clerk (current) drug therapy - Type 2 diabetes mellitus with hyperglycemia - Unspecified abdominal pain Plus 18 More Visits INPATIENT VISIT TRACKING (12 MO.) 05/07/2023 18:29 [facility] [place] TYPE: Observation COMPLAINT: - PANCREATITIS DIAGNOSES: - Acute pancreatitis without necrosis or infection, unspecified - Allergy status to narcotic agent - Allergy status to other antibiotic agents - Allergy status to other drugs, medicaments and biological substances - Allergy status to penicillin - Allergy status to sulfonamides - Chronic kidney disease, unspecified - Hypo-osmolality and hyponatremia - USP (current) use of insulin - Other senior care (current) drug therapy - Pure hyperglyceridemia - Type 2 diabetes mellitus with diabetic chronic kidney disease 04/22/2023 00:28 [facility] [place] TYPE: Observation [...] kidney disease - Hypo-osmolality and hyponatremia - USP (current) use of insulin - Other senior care (current) drug therapy - Type 1 diabetes [...] kidney disease - Hypokalemia - Hypokalemia - USP (current) use of insulin - rat exterminator (current) use of insulin - Other dental procedure status - Other dental procedure status - Other senior care (current) drug therapy - Other termination clerk (current) drug therapy - Personal history of [...] - Urinary tract infection, site not specified [email or web address]
[2023-05-30 13:09] VITALS: BP 00/00
[2023-05-31] MEDS ORDERED: ONDANSETRON ODT8 MG PO (03:20)
== END 2023-05-30 13:09 | disposition left against medical advice (07) ==
LOC: ED 11:43
DX: R10.9 Unspecified abdominal pain (principal); R11.0 Nausea; Z53.29 Procedure and treatment not carried out because of patient's decision for other reasons

== ENCOUNTER 2023-05-31 00:24 | Emergency (ER) | payer OTHER ==
[~2023-05-31] VITALS: Ht 149.9 cm; Wt 39.2 kg
--- OUTSIDE RECORDS SUMMARY | 2023-05-31 00:29 | XMS ---
PreManage Notification: MONTSE GUTIERREZ Security Sanitation Truck Cleaner Events 3 event(s) in the past 18 months Most recent security events: Elopement at [facility] 01/03/2023 12:12 - Patient eloped before treatment completed. - Patient with suicidal and/or homicidal ideations eloped. - Patient eloped with IV in place. Details: Patient left AMA Elopement at [facility] 08/17/2022 17:10 - Patient eloped before treatment completed. - Patient with suicidal and/or homicidal ideations eloped. - Patient eloped with IV in place. Details: Patient LWBS. Elopement at [facility] 07/08/2022 22:03 - Patient eloped before treatment completed. - Patient with suicidal and/or homicidal ideations eloped. - Patient eloped with IV in place. Details: PATIENT LWBS CRITERIA MET - 6 ED Visits in 6 Months - [facility] - 2 Visits in 30 Days CARE PROVIDERS JORDEN HAYWOOD Nurse Practitioner: 04/21/2023-[facility] PHONE: [phone] [facility] 01/22/2021-[facility] PHONE: [phone] SAUL THORPE Physician Chief Internal Auditor 03/19/2019-Current PHONE: Unknown Jef has no Care Guidelines for this patient. Care History Medical/Surgical 09/24/2021 [facility] Contacted Gerri plycor operatorIerfems-Krjypt-cznfmyya of recent ED visits. They will follow up with the patient. 02/05/2021 [facility] - W CALLED AND SPOKE WITH TERMITE CONTROL SERVICE REPRESENTATIVE WALDEMAR- DISCUSSED RECENT ED VISITS- PRIMARY CARE PHYSICIAN REVIEWED PATIENT RECENT ED VISITS AND DID CONTACT PATIENT-THEY HAVE INSTRUCTED PATIENT TO CONTACT FLOOR COVERER DR HAMMOND TO SCHEDULE AND EARLIER APT IF POSSIBLE. PATIENT HAS TO MAKE THE APT FOR FOLLOW UP THE CLINIC CAN\T\#39;T SCHEDULE THE APT FOR THE PATIENT. - PATIENT HAS AN APT 02/06/[address] CHRISTENSEN. 01/25/2021 [facility] VOIDING TRIAL SCHEDULED WITH DR CHRISTENSEN UROLOGIST 02/06/21 [place] VISIT COUNT ([address] [facility]. [address] TOTAL 39 NOTE: Visits indicate total known visits. ED/UCC VISIT TRACKING (12 MO.) 05/31/2023 00:25 [facility] [place] TYPE: Emergency COMPLAINT: - ABD PAIN 05/30/2023 11:44 [facility] [place] TYPE: Emergency [...] [facility] (current) use of insulin - Nausea with vomiting, unspecified - Other watermaster (current) drug therapy - [...] disease, or unspecified chronic kidney disease - 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 - Other watermaster (current) drug therapy - Type 2 diabetes mellitus with diabetic chronic kidney disease - Unspecified abdominal pain 04/22/2023 00:27 [facility] [place] TYPE: Emergency COMPLAINT: - ABD PAIN 04/18/2023 17:16 [facility] TYPE: Emergency DIAGNOSES: - Acute pancreatitis without necrosis or infection, unspecified - Abdominal Pain 04/09/2023 01:30 [facility] TYPE: Emergency COMPLAINT: - ABD PAIN 04/08/2023 00:15 [facility] TYPE: Emergency COMPLAINT: - ABD PAIN,BACK PAIN [...] disease, or unspecified chronic kidney disease - 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 - Right upper [...] penicillin - Allergy status to sulfonamides - [facility] (current) use of insulin - Other watermaster (current) drug therapy - Upper abdominal pain, [...] to sulfonamides - Essential (primary) hypertension - [facility] (current) use of insulin - Other chronic pain - Other skilled nursing (current) drug therapy - Right lower quadrant [...] disease, or unspecified chronic kidney disease - 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 - Other skilled nursing (current) drug therapy - Type 1 diabetes [...] Less than 8 weeks gestation of - 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 - Other skilled nursing (current) drug therapy - Other specified related conditions, first trimester - Pre-existing hypertensive chronic kidney disease complicating , first trimester - Type 2 diabetes mellitus with diabetic chronic kidney disease - Unspecified pre-existing diabetes mellitus in , first trimester 02/07/2023 00:38 [place] [place] TYPE: Emergency DIAGNOSES: - Generalized abdominal pain [...] disease, or unspecified chronic kidney disease - 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 - Other chronic pain - Type 2 diabetes mellitus with diabetic chronic kidney disease - Unspecified abdominal pain 01/26/2023 21:48 [facility] TYPE: Emergency COMPLAINT: - FLANK PAIN DIAGNOSES: - Allergy status to narcotic agent - Allergy status to other antibiotic agents - Allergy status to other drugs, medicaments and biological substances - Allergy status to sulfonamides - Chronic kidney disease, unspecified - Hyperlipidemia, unspecified - Hypertensive chronic kidney disease with stage 1 through stage 4 chronic kidney disease, or unspecified chronic kidney disease - 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 operator (current) use [...] - Dysuria - Essential (primary) hypertension - [facility] (current) use of insulin - Type 2 [...] TYPE: Emergency COMPLAINT: - ABDOMINAL PAIN Plus 19 More Visits INPATIENT VISIT TRACKING [...] disease, unspecified - Hypo-osmolality and hyponatremia - 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 - Other skilled nursing (current) drug therapy - Pure hyperglyceridemia - Type 2 diabetes mellitus with diabetic chronic kidney disease 04/22/2023 00:[address] [facility] [place] TYPE: Observation COMPLAINT: - HHS DIAGNOSES: [...] kidney disease - Hypo-osmolality and hyponatremia - 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 - Other watermaster [...] kidney disease - Hypokalemia - Hypokalemia - 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 - [facility] (current) use of insulin - Other dental procedure status - Other dental procedure status - Other skilled nursing (current) drug therapy - Other watermaster (current) [...] - Urinary tract infection, site not specified [email or web address]
[2023-05-31 01:56] LABS: BASOPHILS 0.7 % (0-2); EOSINOPHILS 1.3 % (0-6); HEMATOCRIT 26.7 % (35.0-50.0); HEMOGLOBIN 8.8 g/dL (12.0-18.0); LYMPHOCYTES 40.7 % (24-44); MCH 29.1 (27-36); MCHC 32.8 g/dl (30-36); MCV 88.8 fl (81-99); MONOCYTES 7.3 % (0-12); PLATELET COUNT 268 K/uL (140-440); RBC 3.01 M/ul (4.3-5.7); RDW 14.6 (10.5-15.0)
[2023-05-31 02:09] LABS: ANION GAP 15.8 (7-21); BUN/CREATININE RATIO 16.66 (6.0-28.6); CALCIUM 9.2 mg/dL (8.5-10.1); CREATININE, SERUM 2.1 mg/dL (0.55-1.02); POTASSIUM 3.8 mmol/L (3.5-5.1)
[2023-05-31 03:03] LABS: BILIRUBIN, URINE NEGATIVE (negative); BLOOD/HGB, URINE TRACE-I (Negative); KETONE, URINE NEGATIVE (Negative); LEUK ESTERASE, URINE NEGATIVE (negative); NITRITE, URINE NEGATIVE (negative)
[2023-05-31 03:07] LABS: EPITHELIAL CELLS, URINE SQUAMOUS 2+ /lpf (0-1+)
[2023-05-31 03:08] LABS: BACTERIA, URINE RARE /hpf (negative); CASTS, URINE NONE SEEN \\lpf; CRYSTALS, URINE NONE SEEN (0-1+); REFLEX CULTURE, URINE No (No)
[2023-05-31] MEDS ORDERED: ONDANSETRON ODT8 MG PO (03:20)
[2023-05-31 03:30] VITALS: BP 130/91
== END 2023-05-31 03:30 | disposition home or self-care (01) ==
LOC: ED 00:24
PROVIDERS: Emergency Medicine
DX: R10.816 Epigastric abdominal tenderness (principal); G89.29 Other chronic pain; E11.9 Type 2 diabetes mellitus without complications; I10 Essential (primary) hypertension; Z88.2 Allergy status to sulfonamides; Z88.0 Allergy status to penicillin; Z88.5 Allergy status to narcotic agent; Z79.899 Other long term (current) 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; Z79.4 Long term (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
CPT/HCPCS: 36415; 80048; 81001; 82010; 82800; 83690; 84703; 85025; 99284; A9270

== ENCOUNTER 2023-06-06 00:10 | Emergency (ER) | payer OTHER ==
[~2023-06-06] VITALS: Ht 149.9 cm; Wt 40.6 kg
--- OUTSIDE RECORDS SUMMARY | ~2023-06-06 | XMS | Continuity of Care Document ---
Demographics + + + | Address | [address] | | | [place] [address] | + + + | Preferred Language | Unknown | + + + | Marital Status | | + + + | Orthodox Affiliation | Unknown | + + + | Race | or | + + + | Ethnic Group | Not or | + + + Author + + + | Author | [facility] | + + + | Organization | [facility] | + + + | Address | [address] [place] [address] Way | | | [place] [address] | + + + | Phone | | + + + Care Team Providers + + + + | Care Group Therapist Name | Role | Phone | + [...] + + + | 2023-03-12 11:46 | RING FACER (CURRENT) USE OF | [facility] | | [...] + + + | 2023-03-20 13:05 | RING FACER (CURRENT) USE OF | [facility] | | [...] + + + | 2023-04-08 00:15 | [facility] (CURRENT) USE OF | [facility] [...] + + | 2023-04-22 00:28 | OTHER RING FACER (CURRENT) | [facility] | | | DRUG [...] + + + | 2023-05-05 21:18 | RING FACER (CURRENT) USE OF | [facility] | | | INSULIN | | + + + + | 2023-05-05 21:18 | OTHER RING FACER (CURRENT) | [facility] | | | DRUG [...] + + + | 2023-05-07 18:29 | RING FACER (CURRENT) USE OF | [facility] | | | INSULIN | | + + + + | 2023-05-07 18:29 | OTHER [facility] (CURRENT) | [facility] | [...] + + + | 2023-05-11 04:56 | [facility] (CURRENT) USE OF | [facility] | | | INSULIN | | + + + + | 2023-05-11 04:56 | OTHER [facility] (CURRENT) | [facility] | [...] + + + | 2023-05-31 00:25 | RING FACER (CURRENT) USE OF | [facility] | | | INSULIN | | + + + + | 2023-05-31 00:25 | OTHER [facility] (CURRENT) | [facility] | [...]
--- OUTSIDE RECORDS SUMMARY | ~2023-06-06 | XMS | Continuity of Care Document ---
Demographics + + + | Address | [address] | | | [place] [address] | + + + | Preferred Language | Unknown | + + + | Marital Status | | + + + | Congregational Affiliation | Unknown | + + + | Race | or | + + + | Ethnic Group | Not or | + + + Author + + + | Author | [facility] | + + + | Organization | [facility] | + + + | Address | [address] [place] [address] Way | | | [place] [address] | + + + | Phone | | + + + Care Team Providers + + + + | Care Regional Marketing Director Name | Role | Phone | [...] + + + | 2023-03-12 11:46 | SLIDE FASTENER CHAIN ASSEMBLER (CURRENT) USE OF | [facility] | | [...] + + + | 2023-03-20 13:05 | SLIDE FASTENER CHAIN ASSEMBLER (CURRENT) USE OF | [facility] | | | INSULIN | | + + + + | 2023-03-20 13:05 | OTHER SENIOR LIVING (CURRENT) | [facility] | | | DRUG [...] + + + | 2023-04-08 00:15 | SENIOR LIVING (CURRENT) USE OF | [facility] | | [...] + + + | 2023-04-22 00:28 | SENIOR LIVING (CURRENT) USE OF | [facility] | | | INSULIN | | + + + + | 2023-04-22 00:28 | OTHER SLIDE FASTENER CHAIN ASSEMBLER (CURRENT) | [facility] | | | DRUG [...] + + + | 2023-05-05 21:18 | SLIDE FASTENER CHAIN ASSEMBLER (CURRENT) USE OF | [facility] | | | INSULIN | | + + + + | 2023-05-05 21:18 | OTHER SLIDE FASTENER CHAIN ASSEMBLER (CURRENT) | [facility] | | | DRUG [...] + + + | 2023-05-07 18:29 | SLIDE FASTENER CHAIN ASSEMBLER (CURRENT) USE OF | [facility] | | | INSULIN | | + + + + | 2023-05-07 18:29 | OTHER SENIOR LIVING (CURRENT) | [facility] | | | DRUG [...] + + + | 2023-05-11 04:56 | SENIOR LIVING (CURRENT) USE OF | [facility] | | | INSULIN | | + + + + | 2023-05-11 04:56 | OTHER SENIOR LIVING (CURRENT) | [facility] | | | DRUG [...] + + + | 2023-05-31 00:25 | SLIDE FASTENER CHAIN ASSEMBLER (CURRENT) USE OF | [facility] | | | INSULIN | | + + + + | 2023-05-31 00:25 | OTHER SENIOR LIVING (CURRENT) | [facility] | | | DRUG [...]
--- OUTSIDE RECORDS SUMMARY | 2023-06-06 00:13 | XMS ---
PreManage Notification: MONTSE GUTIERREZ Security Wire Winding Machine Tender Events 3 event(s) in the past 18 months Most recent security events: Elopement at [facility] 01/03/2023 12:12 - Patient eloped before treatment completed. - Patient with suicidal and/or homicidal ideations eloped. - Patient eloped with IV in place. Details: Patient left AMA Elopement at [facility] 08/17/2022 17:10 - Patient eloped before treatment completed. - Patient with suicidal and/or homicidal ideations eloped. - Patient eloped with IV in place. Details: Patient LWBS. Elopement at [facility] 07/08/2022 22:03 - Patient eloped before treatment completed. - Patient with suicidal and/or homicidal ideations eloped. - Patient eloped with IV in place. Details: PATIENT LWBS CRITERIA MET - 6 ED Visits in 6 Months - [facility] - 2 Visits in 30 Days CARE PROVIDERS JORDEN HAYWOOD Nurse Practitioner: 04/21/2023-[facility] PHONE: [phone] [facility] 01/22/2021-[facility] PHONE: [phone] SAUL THORPE Physician Proposal Rep 03/19/2019-Current PHONE: Unknown Jef has no Care Guidelines for this patient. Care History Medical/Surgical 09/24/2021 [facility] Contacted Gerri recreation assistantRjdoufd-Wgzzkv-yuaajtov of recent ED visits. They will follow up with the patient. 02/05/2021 [facility] - W CALLED AND SPOKE WITH CHAIN MENDER WALDEMAR- DISCUSSED RECENT ED VISITS- PRIMARY CARE PHYSICIAN REVIEWED PATIENT RECENT ED VISITS AND DID CONTACT PATIENT-THEY HAVE INSTRUCTED PATIENT TO CONTACT FORENSIC IDENTIFICATION SPECIALIST DR HAMMOND TO SCHEDULE AND EARLIER APT IF POSSIBLE. PATIENT HAS TO MAKE THE APT FOR FOLLOW UP THE CLINIC CAN\T\#39;T SCHEDULE THE APT FOR THE PATIENT. - PATIENT HAS AN APT 02/06/[address] CHRISTENSEN. 01/25/2021 [facility] VOIDING TRIAL SCHEDULED WITH DR CHRISTENSEN UROLOGIST 02/06/21 [facility] VISIT COUNT (12 MO.) [address] [facility] [address] [place] [address] ([facility]) TOTAL 40 NOTE: Visits indicate total known visits. ED/UCC VISIT TRACKING (12 MO.) 06/06/2023 00:11 [facility] [place] TYPE: Emergency COMPLAINT: - ABD PAIN 05/31/2023 00:[facility] TYPE: Emergency COMPLAINT: - ABD PAIN DIAGNOSES: - Allergy status to narcotic agent - Allergy status to penicillin - Allergy status to sulfonamides - Epigastric abdominal tenderness - Essential (primary) hypertension - alf (current) use of insulin - Other chronic pain - Other prison (current) drug therapy - Type 2 diabetes mellitus without complications - Upper abdominal pain, unspecified 05/30/2023 11:44 [facility] TYPE: Emergency COMPLAINT: - ABD PAIN, NAUSEA DIAGNOSES: - Nausea - Procedure and treatment not carried out because of patient's decision for other reasons - Unspecified abdominal pain 05/11/2023 04:56 [facility] [place] TYPE: Emergency [...] disease, or unspecified chronic kidney disease - emt 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 (current) use of insulin - Nausea with vomiting, unspecified - Other 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 project manager (current) drug therapy - Type 1 [...] disease, or unspecified chronic kidney disease - emt 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 (current) use of insulin - Other prison (current) drug therapy - Type 2 diabetes mellitus with diabetic chronic kidney disease - Unspecified abdominal pain 04/22/2023 00:27 [facility] [place] TYPE: Emergency COMPLAINT: - ABD PAIN 04/18/2023 17:16 [facility] ([facility]) TYPE: Emergency DIAGNOSES: - Acute pancreatitis without [...] - alf (current) use of insulin - Right upper [...] penicillin - Allergy status to sulfonamides - alf (current) use of insulin - Other 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 project manager (current) drug therapy - Upper abdominal pain, [...] - alf (current) use of insulin - Nausea - [...] to sulfonamides - Essential (primary) hypertension - emt 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 (current) use of insulin - Other chronic pain - Other 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 project manager (current) drug therapy - Right lower quadrant [...] alf (current) use of insulin - Other 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 project manager (current) drug therapy - Type 1 [...] Less than 8 weeks gestation of - alf (current) use of insulin - Other 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 project manager (current) drug therapy - Other specified related conditions, first trimester - Pre-existing hypertensive chronic kidney disease complicating , first trimester - Type 2 diabetes mellitus with diabetic chronic kidney disease - Unspecified pre-existing diabetes mellitus in , first trimester 02/07/2023 00:38 [facility] TYPE: Emergency DIAGNOSES: - Generalized abdominal pain [...] disease, or unspecified chronic kidney disease - emt 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 (current) use of insulin - Other chronic [...] disease, or unspecified chronic kidney disease - emt 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 (current) use of insulin - Type 1 [...] - Dysuria - Essential (primary) hypertension - alf (current) use of insulin - Type 2 [...] mellitus with diabetic chronic kidney disease Plus 20 More Visits INPATIENT VISIT TRACKING (12 MO.) [...] disease, unspecified - Hypo-osmolality and hyponatremia - alf (current) use of insulin - Other 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 project manager (current) drug therapy - Pure hyperglyceridemia - [...] kidney disease - Hypo-osmolality and hyponatremia - emt 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 (current) use of insulin - Other 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 project manager (current) drug therapy - Type 1 [...] kidney disease - Hypokalemia - Hypokalemia - emt 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 (current) use of insulin - emt 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 (current) use of insulin - Other dental procedure status - Other dental procedure status - Other 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 project manager (current) drug therapy - Other prison (current) drug therapy - Personal history of [...] - Urinary tract infection, site not specified [email or web address]
[2023-06-06 00:41] LABS: BILIRUBIN, URINE NEGATIVE (negative); BLOOD/HGB, URINE TRACE-I (Negative); EOSINOPHILS 2.1 % (0-6); HEMATOCRIT 28.5 % (35.0-50.0); HEMOGLOBIN 9.4 g/dL (12.0-18.0); KETONE, URINE TRACE (Negative); LEUK ESTERASE, URINE NEGATIVE (negative); LYMPHOCYTES 38.8 % (24-44); MCH 29.5 (27-36); MCV 89.3 fl (81-99); MONOCYTES 9.8 % (0-12); NEUTROPHILS 48.3 % (39-80); NITRITE, URINE NEGATIVE (negative); PH, URINE 5.5 (5-7); PLATELET COUNT 340 K/uL (140-440); RBC 3.19 M/ul (4.3-5.7); RDW 14.7 (10.5-15.0)
[2023-06-06 00:47] LABS: EPITHELIAL CELLS, URINE SQUAMOUS 4+ /lpf (0-1+)
[2023-06-06 00:48] LABS: BACTERIA, URINE 1+ /hpf (negative); CASTS, URINE GRANULAR 1+ \\lpf; CRYSTALS, URINE NONE SEEN (0-1+); RED BLOOD CELLS, URINE 0-1 /hpf (0-5); REFLEX CULTURE, URINE No (No); WHITE BLOOD CELLS, URINE >50 /HPF (0-5)
[2023-06-06 00:57] LABS: ALBUMIN 3.5 g/dL (3.4-5.0); ALBUMIN/GLOBULIN RATIO 0.85 (1.1-2.4); BILIRUBIN, TOTAL 0.2 ng/dL (0.2-1.0); BUN/CREATININE RATIO 11.45 (6.0-28.6); CALCIUM 9.3 mg/dL (8.5-10.1); CREATININE, SERUM 2.27 mg/dL (0.55-1.02); MAGNESIUM 2.1 mg/dL (1.8-2.4); PROTEIN, TOTAL 7.6 g/dL (6.4-8.2)
[2023-06-06 01:57] VITALS: BP 137/105
== END 2023-06-06 01:58 | disposition home or self-care (01) ==
LOC: ED 00:10
PROVIDERS: Internal Medicine
DX: R10.84 Generalized abdominal pain (principal); E10.22 Type 1 diabetes mellitus with diabetic chronic kidney disease; I12.9 Hypertensive chronic kidney disease with stage 1 through stage 4 chronic kidney disease, or unspecified chronic kidney disease; N18.9 Chronic kidney disease, unspecified; E78.1 Pure hyperglyceridemia; Z88.0 Allergy status to penicillin; Z88.1 Allergy status to other antibiotic agents; Z88.2 Allergy status to sulfonamides; Z88.5 Allergy status to narcotic agent; Z88.8 Allergy status to other drugs, medicaments and biological substances; Z79.4 Long term (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; Z79.899 Other long term (current) 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
CPT/HCPCS: 36415; 80053; 81001; 83690; 83735; 84703; 85025; 96374; 96375; 99284-25; J1170; J1200; J7121

== ENCOUNTER 2023-06-06 22:23 | Emergency (ER) | payer OTHER ==
[~2023-06-06] VITALS: Ht 149.9 cm; Wt 41.1 kg
--- OUTSIDE RECORDS SUMMARY | ~2023-06-06 | XMS | Continuity of Care Document ---
Demographics + + + | Address | [address] | | | [place] [address] | + + + | Preferred Language | Unknown | + + + | Marital Status | | + + + | Episcopalian Affiliation | Unknown | + + + | Race | or | + + + | Ethnic Group | Not or | + + + Author + + + | Author | [facility] | + + + | Organization | [facility] | + + + | Address | [address] [place] [address] Way | | | [place] [address] | + + + | Phone | | + + + Care Team Providers + + + + | Care Marketing/Sales Person Name | Role | Phone | + + + + Unavailable | Unavailable | + + + + Allergies No information. Encounters No information. Functional Status No information. Immunizations No information. Medications No information. Problems + + + + | date | description | facility | + + + + | 2023-03-12 11:46 | TYPE 1 DIABETES MELLITUS W | [facility] | | | DIABETIC CHRONIC KIDNEY | | + + + + | 2023-03-12 11:46 | TYPE 1 DIABETES MELLITUS | [facility] | | | WITH HYPERGLYCEMIA | | + + + + | 2023-03-12 11:46 | DEHYDRATION | [facility] | + + + + | 2023-03-12 11:46 | HYPERTENSIVE CHRONIC | [facility] | | | KIDNEY DISEASE W STG | | | | 1-4/UNSP | | + + + + | 2023-03-12 11:46 | ACUTE KIDNEY FAILURE, | [facility] | | | UNSPECIFIED | | + + + + | 2023-03-12 11:46 | CHRONIC KIDNEY DISEASE, | [facility] | | | UNSPECIFIED | | + + + + | 2023-03-12 11:46 | NAUSEA | [facility] | + + + + | 2023-03-12 11:46 | HOP PICKER (CURRENT) USE OF | [facility] | | | INSULIN | | + + + + | 2023-03-12 11:46 | ALLERGY STATUS TO OTHER | [facility] | | | ANTIBIOTIC AGENTS STATUS | | + + + + | 2023-03-12 11:46 | ALLERGY STATUS TO | [facility] | | | SULFONAMIDES STATUS | | + + + + | 2023-03-12 11:46 | ALLERGY STATUS TO NARCOTIC | [facility] | | | AGENT STATUS | | + + + + | 2023-03-20 13:05 | ACUTE PANCREATITIS WITHOUT | [facility] | | | NECROSIS OR INFECTION, | | + + + + | 2023-03-20 13:05 | UPPER ABDOMINAL PAIN, | [facility] | | | UNSPECIFIED | | + + + + | 2023-03-20 13:05 | HOP PICKER (CURRENT) USE OF | [facility] | | | INSULIN | | + + + + | 2023-03-20 13:05 | OTHER DETENTION (CURRENT) | [facility] | | | DRUG THERAPY | | + + + + | 2023-03-20 13:05 | ALLERGY STATUS TO | [facility] | | | PENICILLIN | | + + + + | 2023-03-20 13:05 | ALLERGY STATUS TO OTHER | [facility] | | | ANTIBIOTIC AGENTS STATUS | | + + + + | 2023-03-20 13:05 | ALLERGY STATUS TO | [facility] | | | SULFONAMIDES STATUS | | + + + + | 2023-03-20 13:05 | ALLERGY STATUS TO NARCOTIC | [facility] | | | AGENT STATUS | | + + + + | 2023-03-20 13:05 | ALLERGY STATUS TO OTH | [facility] | | | DRUG/MEDS/BIOL SUBST STATUS | | | | | | + + + + | 2023-04-03 13:30 | ENCOUNTER FOR SCREENING | [facility] | | | FOR OSTEOPOROSIS | | + + + + | 2023-04-08 00:15 | TYPE 1 DIABETES MELLITUS W | [facility] | | | DIABETIC CHRONIC KIDNEY | | + + + + | 2023-04-08 00:15 | HYPERLIPIDEMIA, | [facility] | | | UNSPECIFIED | | + + + + | 2023-04-08 00:15 | HYPERTENSIVE CHRONIC | [facility] | | | KIDNEY DISEASE W STG | | | | 1-4/UNSP | | + + + + | 2023-04-08 00:15 | CHRONIC KIDNEY DISEASE, | [facility] | | | UNSPECIFIED | | + + + + | 2023-04-08 00:15 | RIGHT UPPER QUADRANT PAIN | [facility] | + + + + | 2023-04-08 00:15 | DETENTION (CURRENT) USE OF | [facility] | | | INSULIN | | + + + + | 2023-04-08 00:15 | ALLERGY STATUS TO OTHER | [facility] | | | ANTIBIOTIC AGENTS STATUS | | + + + + | 2023-04-08 00:15 | ALLERGY STATUS TO | [facility] | | | SULFONAMIDES STATUS | | + + + + | 2023-04-08 00:15 | ALLERGY STATUS TO NARCOTIC | [facility] | | | AGENT STATUS | | + + + + | 2023-04-08 00:15 | ALLERGY STATUS TO OTH | [facility] | | | DRUG/MEDS/BIOL SUBST STATUS | | | | | | + + + + | 2023-04-09 01:31 | TYPE 1 DIABETES MELLITUS | [facility] | | | WITH HYPERGLYCEMIA | | + + + + | 2023-04-09 01:31 | UNSPECIFIED ABDOMINAL PAIN | [facility] | | | | | + + + + | 2023-04-09 01:31 | ALLERGY STATUS TO OTHER | [facility] | | | ANTIBIOTIC AGENTS STATUS | | + + + + | 2023-04-09 01:31 | ALLERGY STATUS TO | [facility] | | | SULFONAMIDES STATUS | | + + + + | 2023-04-09 01:31 | ALLERGY STATUS TO NARCOTIC | [facility] | | | AGENT STATUS | | + + + + | 2023-04-22 00:28 | TYPE 1 DIABETES MELLITUS W | [facility] | | | DIABETIC CHRONIC KIDNEY | | + + + + | 2023-04-22 00:28 | TYPE 1 DIABETES MELLITUS | [facility] | | | WITH HYPERGLYCEMIA | | + + + + | 2023-04-22 00:28 | HYPO-OSMOLALITY AND | [facility] | | | HYPONATREMIA | | + + + + | 2023-04-22 00:28 | HYPERTENSIVE CHRONIC | [facility] | | | KIDNEY DISEASE W STG | | | | 1-4/UNSP | | + + + + | 2023-04-22 00:28 | ACUTE PANCREATITIS WITHOUT | [facility] | | | NECROSIS OR INFECTION, | | + + + + | 2023-04-22 00:28 | CHRONIC KIDNEY DISEASE, | [facility] | | | UNSPECIFIED | | + + + + | 2023-04-22 00:28 | DETENTION (CURRENT) USE OF | [facility] | | | INSULIN | | + + + + | 2023-04-22 00:28 | OTHER HOP PICKER (CURRENT) | [facility] | | | DRUG THERAPY | | + + + + | 2023-04-22 00:28 | ALLERGY STATUS TO | [facility] | | | PENICILLIN | | + + + + | 2023-04-22 00:28 | ALLERGY STATUS TO OTHER | [facility] | | | ANTIBIOTIC AGENTS STATUS | | + + + + | 2023-04-22 00:28 | ALLERGY STATUS TO | [facility] | | | SULFONAMIDES STATUS | | + + + + | 2023-04-22 00:28 | ALLERGY STATUS TO OTH | [facility] | | | DRUG/MEDS/BIOL SUBST STATUS | | | | | | + + + + | 2023-05-05 21:18 | TYPE 2 DIABETES MELLITUS W | [facility] | | | DIABETIC CHRONIC KIDNEY | | + + + + | 2023-05-05 21:18 | HYPERTENSIVE CHRONIC | [facility] | | | KIDNEY DISEASE W STG | | | | 1-4/UNSP | | + + + + | 2023-05-05 21:18 | CHRONIC KIDNEY DISEASE, | [facility] | | | UNSPECIFIED | | + + + + | 2023-05-05 21:18 | UNSPECIFIED ABDOMINAL PAIN | [facility] | | | | | + + + + | 2023-05-05 21:18 | DYSURIA | [facility] | + + + + | 2023-05-05 21:18 | HOP PICKER (CURRENT) USE OF | [facility] | | | INSULIN | | + + + + | 2023-05-05 21:18 | OTHER HOP PICKER (CURRENT) | [facility] | | | DRUG THERAPY | | + + + + | 2023-05-05 21:18 | ALLERGY STATUS TO | [facility] | | | PENICILLIN | | + + + + | 2023-05-05 21:18 | ALLERGY STATUS TO OTHER | [facility] | | | ANTIBIOTIC AGENTS STATUS | | + + + + | 2023-05-05 21:18 | ALLERGY STATUS TO | [facility] | | | SULFONAMIDES STATUS | | + + + + | 2023-05-05 21:18 | ALLERGY STATUS TO NARCOTIC | [facility] | | | AGENT STATUS | | + + + + | 2023-05-05 21:18 | ALLERGY STATUS TO OTH | [facility] | | | DRUG/MEDS/BIOL SUBST STATUS | | | | | | + + + + | 2023-05-07 18:29 | TYPE 2 DIABETES MELLITUS W | [facility] | | | DIABETIC CHRONIC KIDNEY | | + + + + | 2023-05-07 18:29 | PURE HYPERGLYCERIDEMIA | [facility] | + + + + | 2023-05-07 18:29 | HYPO-OSMOLALITY AND | [facility] | | | HYPONATREMIA | | + + + + | 2023-05-07 18:29 | ACUTE PANCREATITIS WITHOUT | [facility] | | | NECROSIS OR INFECTION, | | | | UNSP | | + + + + | 2023-05-07 18:29 | CHRONIC KIDNEY DISEASE, | [facility] | | | UNSPECIFIED | | + + + + | 2023-05-07 18:29 | HOP PICKER (CURRENT) USE OF | [facility] | | | INSULIN | | + + + + | 2023-05-07 18:29 | OTHER DETENTION (CURRENT) | [facility] | | | DRUG THERAPY | | + + + + | 2023-05-07 18:29 | ALLERGY STATUS TO | [facility] | | | PENICILLIN | | + + + + | 2023-05-07 18:29 | ALLERGY STATUS TO OTHER | [facility] | | | ANTIBIOTIC AGENTS STATUS | | + + + + | 2023-05-07 18:29 | ALLERGY STATUS TO | [facility] | | | SULFONAMIDES STATUS | | + + + + | 2023-05-07 18:29 | ALLERGY STATUS TO NARCOTIC | [facility] | | | AGENT STATUS | | + + + + | 2023-05-07 18:29 | ALLERGY STATUS TO OTH | [facility] | | | DRUG/MEDS/BIOL SUBST STATUS | | | | | | + + + + | 2023-05-11 04:56 | TYPE 1 DIABETES MELLITUS W | [facility] | | | DIABETIC CHRONIC KIDNEY | | + + + + | 2023-05-11 04:56 | TYPE 1 DIABETES MELLITUS | [facility] | | | WITH HYPERGLYCEMIA | | + + + + | 2023-05-11 04:56 | HYPERLIPIDEMIA, | [facility] | | | UNSPECIFIED | | + + + + | 2023-05-11 04:56 | HYPERTENSIVE CHRONIC | [facility] | | | KIDNEY DISEASE W STG | | | | 1-4/UNSP | | + + + + | 2023-05-11 04:56 | GASTRITIS, UNSPECIFIED, | [facility] | | | WITHOUT BLEEDING | | + + + + | 2023-05-11 04:56 | CHRONIC KIDNEY DISEASE, | [facility] | | | UNSPECIFIED | | + + + + | 2023-05-11 04:56 | NAUSEA WITH VOMITING, | [facility] | | | UNSPECIFIED | | + + + + | 2023-05-11 04:56 | DETENTION (CURRENT) USE OF | [facility] | | | INSULIN | | + + + + | 2023-05-11 04:56 | OTHER DETENTION (CURRENT) | [facility] | | | DRUG THERAPY | | + + + + | 2023-05-11 04:56 | ALLERGY STATUS TO | [facility] | | | PENICILLIN | | + + + + | 2023-05-11 04:56 | ALLERGY STATUS TO OTHER | [facility] | | | ANTIBIOTIC AGENTS STATUS | | + + + + | 2023-05-11 04:56 | ALLERGY STATUS TO | [facility] | | | SULFONAMIDES STATUS | | + + + + | 2023-05-11 04:56 | ALLERGY STATUS TO NARCOTIC | [facility] | | | AGENT STATUS | | + + + + | 2023-05-11 04:56 | ALLERGY STATUS TO OTH | [facility] | | | DRUG/MEDS/BIOL SUBST STATUS | | | | | | + + + + | 2023-05-30 11:44 | UNSPECIFIED ABDOMINAL PAIN | [facility] | | | | | + + + + | 2023-05-30 11:44 | NAUSEA | [facility] | + + + + | 2023-05-30 11:44 | PROC/TRTMT NOT CRD OUT BEC | [facility] | | | PT DECISION FOR OTH FIFI | | + + + + | 2023-05-31 00:25 | TYPE 2 DIABETES MELLITUS | [facility] | | | WITHOUT COMPLICATIONS | | + + + + | 2023-05-31 00:25 | OTHER CHRONIC PAIN | [facility] | + + + + | 2023-05-31 00:25 | Essential (primary) | [facility] | | | hypertension | | + + + + | 2023-05-31 00:25 | UPPER ABDOMINAL PAIN, | [facility] | | | UNSPECIFIED | | + + + + | 2023-05-31 00:25 | EPIGASTRIC ABDOMINAL | [facility] | | | TENDERNESS | | + + + + | 2023-05-31 00:25 | HOP PICKER (CURRENT) USE OF | [facility] | | | INSULIN | | + + + + | 2023-05-31 00:25 | OTHER DETENTION (CURRENT) | [facility] | | | DRUG THERAPY | | + + + + | 2023-05-31 00:25 | ALLERGY STATUS TO | [facility] | | | PENICILLIN | | + + + + | 2023-05-31 00:25 | ALLERGY STATUS TO | [facility] | | | SULFONAMIDES STATUS | | + + + + | 2023-05-31 00:25 | ALLERGY STATUS TO NARCOTIC | [facility] | | | AGENT STATUS | | + + + + Procedures No information. Results/Labs No information. Social History +--------+ + + | date | description | facility | +--------+ + + Vital Signs No information."
--- OUTSIDE RECORDS SUMMARY | ~2023-06-06 | XMS | Continuity of Care Document ---
Demographics + + + | Address | [address] | | | [place] [address] | + + + | Preferred Language | Unknown | + + + | Marital Status | | + + + | Denominational Affiliation | Unknown | + + + | Race | or | + + + | Ethnic Group | Not or | + + + Author + + + | Author | [facility] | + + + | Organization | [facility] | + + + | Address | [address] [place] [address] Way | | | [place] [address] | + + + | Phone | | + + + Care Team Providers + + + + | Care Coal Gasification Technician Name | Role | Phone | + [...] + + + | 2023-03-12 11:46 | DRAWING FRAME TENDER (CURRENT) USE OF | [facility] | | [...] + + + | 2023-03-20 13:05 | DRAWING FRAME TENDER (CURRENT) USE OF | [facility] | | | INSULIN | | + + + + | 2023-03-20 13:05 | OTHER INTERMEDIATE (CURRENT) | [facility] | | | DRUG [...] + + + | 2023-04-08 00:15 | INTERMEDIATE (CURRENT) USE OF | [facility] | | [...] + + + | 2023-04-22 00:28 | INTERMEDIATE (CURRENT) USE OF | [facility] | | | INSULIN | | + + + + | 2023-04-22 00:28 | OTHER DRAWING FRAME TENDER (CURRENT) | [facility] | | | DRUG [...] + + + | 2023-05-05 21:18 | DRAWING FRAME TENDER (CURRENT) USE OF | [facility] | | | INSULIN | | + + + + | 2023-05-05 21:18 | OTHER DRAWING FRAME TENDER (CURRENT) | [facility] | | | DRUG [...] + + + | 2023-05-07 18:29 | DRAWING FRAME TENDER (CURRENT) USE OF | [facility] | | | INSULIN | | + + + + | 2023-05-07 18:29 | OTHER INTERMEDIATE (CURRENT) | [facility] | | | DRUG [...] + + + | 2023-05-11 04:56 | INTERMEDIATE (CURRENT) USE OF | [facility] | | | INSULIN | | + + + + | 2023-05-11 04:56 | OTHER INTERMEDIATE (CURRENT) | [facility] | | | DRUG [...] + + + | 2023-05-31 00:25 | DRAWING FRAME TENDER (CURRENT) USE OF | [facility] | | | INSULIN | | + + + + | 2023-05-31 00:25 | OTHER INTERMEDIATE (CURRENT) | [facility] | | | DRUG [...]
--- OUTSIDE RECORDS SUMMARY | 2023-06-06 22:26 | XMS ---
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 - Patient with suicidal and/or homicidal ideations eloped. - Patient eloped with IV in place. Details: Patient left AMA Elopement at [facility] 08/17/2022 17:10 - Patient eloped before treatment completed. - Patient with suicidal and/or homicidal ideations eloped. - Patient eloped with IV in place. Details: Patient LWBS. Elopement at [facility] 07/08/2022 22:03 - Patient eloped before treatment completed. - Patient with suicidal and/or homicidal ideations eloped. - Patient eloped with IV in place. Details: PATIENT LWBS CRITERIA MET - 6 ED Visits in 6 Months - [facility] - 2 Visits in 30 Days CARE PROVIDERS JORDEN HAYWOOD Nurse Practitioner: 04/21/2023-[facility] PHONE: [phone] [facility] 01/22/2021-[facility] PHONE: [phone] SAUL THORPE Physician Band Scroll Saw Operator 03/19/2019-Current PHONE: Unknown Jef has no Care Guidelines for this patient. Care History Medical/Surgical 09/24/2021 [facility] Contacted Gerri laundry machine operatorUcukzjx-Pbgxkk-tnxmdsqw of recent ED visits. They will follow up with the patient. 02/05/2021 [facility] - W CALLED AND SPOKE WITH SUPERVISOR [employer]INGS WALDEMAR- DISCUSSED RECENT ED VISITS- PRIMARY CARE PHYSICIAN REVIEWED PATIENT RECENT ED VISITS AND DID CONTACT PATIENT-THEY HAVE INSTRUCTED PATIENT TO CONTACT CONSOLE ASSEMBLER DR HAMMOND TO SCHEDULE AND EARLIER APT IF POSSIBLE. PATIENT HAS TO MAKE THE APT FOR FOLLOW UP THE CLINIC CAN\T\#39;T SCHEDULE THE APT FOR THE PATIENT. - PATIENT HAS AN APT 02/06/[address] CHRISTENSEN. 01/25/2021 [facility] VOIDING TRIAL SCHEDULED WITH DR CHRISTENSEN UROLOGIST 02/06/21 [facility] VISIT COUNT (12 MO.) 34 [facility] [address] [place] [address] ([facility]) TOTAL 41 NOTE: Visits indicate total known visits. ED/UCC VISIT TRACKING (12 MO.) 06/06/2023 22:[address] [facility] [place] TYPE: Emergency COMPLAINT: - ABD PAIN 06/06/2023 00:[address] [facility] [place] TYPE: Emergency COMPLAINT: - ABD PAIN 05/31/2023 00:[address] [facility] TYPE: Emergency COMPLAINT: - ABD PAIN DIAGNOSES: - Allergy status to narcotic agent - Allergy status to penicillin - Allergy status to sulfonamides - Epigastric abdominal tenderness - Essential (primary) hypertension - moth exterminator (current) use of insulin - Other chronic pain - Other correction (current) drug therapy - Type 2 diabetes [...] alf (current) use of insulin - Nausea with vomiting, unspecified - Other terminal press operator (current) drug [...] disease, or unspecified chronic kidney disease - moth exterminator (current) use of insulin - Other terminal press operator (current) drug therapy - Type 2 diabetes mellitus with diabetic chronic kidney disease - Unspecified abdominal pain 04/22/2023 00:27 [facility] [place] TYPE: Emergency COMPLAINT: - ABD PAIN 04/18/2023 17:16 [facility] ([facility]) TYPE: Emergency DIAGNOSES: - Acute pancreatitis without necrosis or infection, unspecified - Abdominal Pain 04/09/2023 01:[address] [facility] [place] TYPE: Emergency COMPLAINT: - ABD PAIN 04/08/2023 00:[address] [facility] [place] TYPE: Emergency COMPLAINT: - ABD PAIN,BACK [...] with diabetic chronic kidney disease 03/20/2023 13:[address] [facility] [address] [facility] [place] TYPE: Emergency COMPLAINT: - ABD PAIN, RECTAL BLEEDING, BACK PAIN DIAGNOSES: - Acute pancreatitis without necrosis or infection, unspecified - Allergy status to narcotic agent - Allergy status to other antibiotic agents - Allergy status to other drugs, medicaments and biological substances - Allergy status to penicillin - Allergy status to sulfonamides - moth exterminator (current) use of insulin - Other terminal press operator (current) drug therapy - Upper abdominal pain, [...] disease, or unspecified chronic kidney disease - moth exterminator (current) use of insulin - Nausea - [...] to sulfonamides - Essential (primary) hypertension - alf (current) use of insulin - Other chronic pain - Other terminal press operator (current) drug therapy - Right lower quadrant [...] alf (current) use of insulin - Other correction (current) drug therapy - Type 1 diabetes mellitus with diabetic chronic kidney disease - Type 1 diabetes mellitus with hyperglycemia 02/11/2023 00:[address] [facility] [place] TYPE: Emergency COMPLAINT: - ABD PAIN,NAUSEA [...] Less than 8 weeks gestation of - moth exterminator (current) use of insulin - Other correction (current) drug therapy - Other specified related conditions, first trimester - Pre-existing hypertensive chronic kidney disease complicating , first trimester - Type 2 diabetes mellitus with diabetic chronic kidney disease - Unspecified pre-existing diabetes mellitus in , first trimester 02/07/2023 00:38 [facility] ([facility]) TYPE: Emergency DIAGNOSES: - [...] alf (current) use of insulin - Type 1 [...] - Dysuria - Essential (primary) hypertension - moth exterminator (current) use of insulin - Type 2 diabetes mellitus without complications - Urinary tract infection, site not specified 01/03/2023 20:27 [facility] TYPE: Emergency COMPLAINT: - ABDOMINAL PAIN Plus 21 More Visits INPATIENT VISIT TRACKING (12 MO.) [...] disease, unspecified - Hypo-osmolality and hyponatremia - moth exterminator (current) use of insulin - Other correction (current) drug therapy - Pure hyperglyceridemia - [...] kidney disease - Hypo-osmolality and hyponatremia - alf (current) use of insulin - Other correction (current) drug therapy - Type 1 diabetes mellitus with diabetic chronic kidney disease - Type 1 diabetes mellitus with hyperglycemia 04/09/2023 01:31 [facility] TYPE: Observation COMPLAINT: - HYPEROSMOLAR HYPERGLYCEMIA [...] kidney disease - Hypokalemia - Hypokalemia - moth exterminator (current) use of insulin - moth exterminator (current) use of insulin - Other dental procedure status - Other dental procedure status - Other terminal press operator (current) drug therapy - Other correction (current) drug therapy - Personal history of [...] - Urinary tract infection, site not specified [email or web address]
[2023-06-06 23:03] LABS: BILIRUBIN, URINE NEGATIVE (negative); BLOOD/HGB, URINE TRACE-I (Negative); KETONE, URINE NEGATIVE (Negative); LEUK ESTERASE, URINE NEGATIVE (negative); NITRITE, URINE NEGATIVE (negative); PH, URINE 5.5 (5-7)
[2023-06-06 23:08] LABS: EPITHELIAL CELLS, URINE SQUAMOUS 3+ /lpf (0-1+)
[2023-06-06 23:09] LABS: BACTERIA, URINE 1+ /hpf (negative); CASTS, URINE NONE SEEN \\lpf; CRYSTALS, URINE NONE SEEN (0-1+); REFLEX CULTURE, URINE No (No)
[2023-06-06 23:12] LABS: BASOPHILS 0.5 % (0-2); EOSINOPHILS 1.7 % (0-6); HEMATOCRIT 29.4 % (35.0-50.0); HEMOGLOBIN 9.2 g/dL (12.0-18.0); LYMPHOCYTES 25.8 % (24-44); MCH 28.9 (27-36); MCHC 31.3 g/dl (30-36); MCV 92.2 fl (81-99); MONOCYTES 9.9 % (0-12); NEUTROPHILS 62.1 % (39-80); PLATELET COUNT 300 K/uL (140-440); RBC 3.19 M/ul (4.3-5.7); RDW 15.2 (10.5-15.0)
[2023-06-06 23:28] LABS: ALBUMIN 3.6 g/dL (3.4-5.0); ALBUMIN/GLOBULIN RATIO 0.86 (1.1-2.4); ANION GAP 22.3 (7-21); BILIRUBIN, TOTAL 0.2 ng/dL (0.2-1.0); BUN/CREATININE RATIO 8.88 (6.0-28.6); CALCIUM 8.9 mg/dL (8.5-10.1); CREATININE, SERUM 2.59 mg/dL (0.55-1.02); POTASSIUM 4.3 mmol/L (3.5-5.1); PROTEIN, TOTAL 7.8 g/dL (6.4-8.2)
[2023-06-07 03:06] LABS: ANION GAP 17.2 (7-21); BUN/CREATININE RATIO 9.38 (6.0-28.6); CALCIUM 8.4 mg/dL (8.5-10.1); CREATININE, SERUM 2.13 mg/dL (0.55-1.02); POTASSIUM 4.2 mmol/L (3.5-5.1)
[2023-06-07 03:24] VITALS: BP 166/110
== END 2023-06-07 03:25 | disposition home or self-care (01) ==
LOC: ED 22:23
PROVIDERS: Internal Medicine
DX: E10.65 Type 1 diabetes mellitus with hyperglycemia (principal); R10.84 Generalized abdominal pain; E87.1 Hypo-osmolality and hyponatremia; E10.22 Type 1 diabetes mellitus with diabetic chronic kidney disease; I12.9 Hypertensive chronic kidney disease with stage 1 through stage 4 chronic kidney disease, or unspecified chronic kidney disease; N18.9 Chronic kidney disease, unspecified; E78.1 Pure hyperglyceridemia; Z88.0 Allergy status to penicillin; Z88.1 Allergy status to other antibiotic agents; Z88.2 Allergy status to sulfonamides; Z88.5 Allergy status to narcotic agent; Z88.8 Allergy status to other drugs, medicaments and biological substances; Z79.899 Other long term (current) 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
CPT/HCPCS: 36415; 80048; 80053; 81001; 82010; 83036; 83690; 85025; 96361; 96374; 96375; 99284-25; J1200; J1815; J1885; J7121

== ENCOUNTER 2023-06-16 04:44 | Observation (INO) | payer OTHER ==
[~2023-06-16] VITALS: Ht 149.9 cm; Wt 39.8 kg
--- OUTSIDE RECORDS SUMMARY | ~2023-06-16 | XMS | Continuity of Care Document ---
Demographics + + + | Address | [address] | | | [place] [address] | + + + | Preferred Language | Unknown | + + + | Marital Status | | + + + | Muslim Affiliation | Unknown | + + + | Race | or | + + + | Ethnic Group | Not or | + + + Author + + + | Author | [facility] | + + + | Organization | [facility] | + + + | Address | [address] [place] [address] Way | | | [place] [address] | + + + | Phone | | + + + Care Team Providers + + + + | Care Financial Market Dealer Name | Role | Phone | + + + + Unavailable | Unavailable | + + + + Allergies No information. Encounters No information. Functional Status No information. Immunizations No information. Medications No information. Problems + + + + | date | description | facility | + + + + | 2023-03-20 13:05 | ACUTE PANCREATITIS WITHOUT | [facility] | | | NECROSIS OR INFECTION, | | + + + + | 2023-03-20 13:05 | UPPER ABDOMINAL PAIN, | [facility] | | | UNSPECIFIED | | + + + + | 2023-03-20 13:05 | [facility] (CURRENT) USE OF | [facility] | | | INSULIN | | + + + + | 2023-03-20 13:05 | OTHER [facility] (CURRENT) | [facility] | | | DRUG [...] + + + | 2023-04-08 00:15 | CLINICAL ESTHETICIAN (CURRENT) USE OF | [facility] | | [...] + + + | 2023-04-22 00:28 | [facility] (CURRENT) USE OF | [facility] | | | INSULIN | | + + + + | 2023-04-22 00:28 | OTHER CLINICAL ESTHETICIAN (CURRENT) | [facility] | | | DRUG [...] + + + | 2023-05-05 21:18 | CLINICAL ESTHETICIAN (CURRENT) USE OF | [facility] | | | INSULIN | | + + + + | 2023-05-05 21:18 | OTHER CLINICAL ESTHETICIAN (CURRENT) | [facility] | | | DRUG [...] + + + | 2023-05-07 18:29 | [facility] (CURRENT) USE OF | [facility] | | | INSULIN | | + + + + | 2023-05-07 18:29 | OTHER [facility] (CURRENT) | [facility] | | | DRUG [...] + + + | 2023-05-11 04:56 | CLINICAL ESTHETICIAN (CURRENT) USE OF | [facility] | | | INSULIN | | + + + + | 2023-05-11 04:56 | OTHER CLINICAL ESTHETICIAN (CURRENT) | [facility] | | | DRUG [...] + + + | 2023-05-31 00:25 | [facility] (CURRENT) USE OF | [facility] | | | INSULIN | | + + + + | 2023-05-31 00:25 | OTHER CLINICAL ESTHETICIAN (CURRENT) | [facility] | | | DRUG [...] | | + + + + | 2023-06-06 00:11 | TYPE 1 DIABETES MELLITUS W | [facility] | | | DIABETIC CHRONIC KIDNEY | | + + + + | 2023-06-06 00:11 | PURE HYPERGLYCERIDEMIA | [facility] | + + + + | 2023-06-06 00:11 | HYPERTENSIVE CHRONIC | [facility] | | | KIDNEY DISEASE W STG | | | | 1-4/UNSP | | + + + + | 2023-06-06 00:11 | CHRONIC KIDNEY DISEASE, | [facility] | | | UNSPECIFIED | | + + + + | 2023-06-06 00:11 | UPPER ABDOMINAL PAIN, | [facility] | | | UNSPECIFIED | | + + + + | 2023-06-06 00:11 | GENERALIZED ABDOMINAL PAIN | [facility] | | | | | + + + + | 2023-06-06 00:11 | CLINICAL ESTHETICIAN (CURRENT) USE OF | [facility] | | | INSULIN | | + + + + | 2023-06-06 00:11 | OTHER CLINICAL ESTHETICIAN (CURRENT) | [facility] | | | DRUG THERAPY | | + + + + | 2023-06-06 00:11 | ALLERGY STATUS TO | [facility] | | | PENICILLIN | | + + + + | 2023-06-06 00:11 | ALLERGY STATUS TO OTHER | [facility] | | | ANTIBIOTIC AGENTS STATUS | | + + + + | 2023-06-06 00:11 | ALLERGY STATUS TO | [facility] | | | SULFONAMIDES STATUS | | + + + + | 2023-06-06 00:11 | ALLERGY STATUS TO NARCOTIC | [facility] | | | AGENT STATUS | | + + + + | 2023-06-06 00:11 | ALLERGY STATUS TO OTH | [facility] | | | DRUG/MEDS/BIOL SUBST STATUS | | | | | | + + + + | 2023-06-06 22:24 | TYPE 1 DIABETES MELLITUS W | [facility] | | | DIABETIC CHRONIC KIDNEY | | + + + + | 2023-06-06 22:24 | TYPE 1 DIABETES MELLITUS | [facility] | | | WITH HYPERGLYCEMIA | | + + + + | 2023-06-06 22:24 | PURE HYPERGLYCERIDEMIA | [facility] | + + + + | 2023-06-06 22:24 | HYPO-OSMOLALITY AND | [facility] | | | HYPONATREMIA | | + + + + | 2023-06-06 22:24 | HYPERTENSIVE CHRONIC | [facility] | | | KIDNEY DISEASE W STG | | | | 1-4/UNSP | | + + + + | 2023-06-06 22:24 | CHRONIC KIDNEY DISEASE, | [facility] | | | UNSPECIFIED | | + + + + | 2023-06-06 22:24 | GENERALIZED ABDOMINAL PAIN | [facility] | | | | | + + + + | 2023-06-06 22:24 | HYPERGLYCEMIA, UNSPECIFIED | [facility] | | | | | + + + + | 2023-06-06 22:24 | OTHER CLINICAL ESTHETICIAN (CURRENT) | [facility] | | | DRUG THERAPY | | + + + + | 2023-06-06 22:24 | ALLERGY STATUS TO | [facility] | | | PENICILLIN | | + + + + | 2023-06-06 22:24 | ALLERGY STATUS TO OTHER | [facility] | | | ANTIBIOTIC AGENTS STATUS | | + + + + | 2023-06-06 22:24 | ALLERGY STATUS TO | [facility] | | | SULFONAMIDES STATUS | | + + + + | 2023-06-06 22:24 | ALLERGY STATUS TO NARCOTIC | [facility] | | | AGENT STATUS | | + + + + | 2023-06-06 22:24 | ALLERGY STATUS TO OTH | [facility] | | | DRUG/MEDS/BIOL SUBST STATUS | | | | | | + + + + | 2023-06-07 15:58 | TYPE 2 DIABETES MELLITUS W | [facility] | | | DIABETIC CHRONIC KIDNEY | | + + + + | 2023-06-07 15:58 | TYPE 2 DIABETES MELLITUS | [facility] | | | WITH HYPERGLYCEMIA | | + + + + | 2023-06-07 15:58 | HYPO-OSMOLALITY AND | [facility] | | | HYPONATREMIA | | + + + + | 2023-06-07 15:58 | HYPERTENSIVE CHRONIC | [facility] | | | KIDNEY DISEASE W STG | | | | 1-4/UNSP | | + + + + | 2023-06-07 15:58 | CHRONIC KIDNEY DISEASE, | [facility] | | | UNSPECIFIED | | + + + + | 2023-06-07 15:58 | CLINICAL ESTHETICIAN (CURRENT) USE OF | [facility] | | | INSULIN | | + + + + | 2023-06-07 15:58 | ALLERGY STATUS TO | [facility] | | | PENICILLIN | | + + + + | 2023-06-07 15:58 | ALLERGY STATUS TO | [facility] | | | SULFONAMIDES STATUS | | + + + + | 2023-06-07 15:58 | ALLERGY STATUS TO OTH | [facility] | | | DRUG/MEDS/BIOL SUBST STATUS | | | | | | + + + + | 2023-06-10 19:17 | TYPE 1 DIABETES MELLITUS W | [facility] | | | DIABETIC CHRONIC KIDNEY | | + + + + | 2023-06-10 19:17 | TYPE 1 DIABETES MELLITUS | [facility] | | | WITH HYPERGLYCEMIA | | + + + + | 2023-06-10 19:17 | HYPERTENSIVE CHRONIC | [facility] | | | KIDNEY DISEASE W STG | | | | 1-4/UNSP | | + + + + | 2023-06-10 19:17 | CHRONIC KIDNEY DISEASE, | [facility] | | | UNSPECIFIED | | + + + + | 2023-06-10 19:17 | EPIGASTRIC PAIN | [facility] | + + + + | 2023-06-10 19:17 | [facility] (CURRENT) USE OF | [facility] | | | INSULIN | | + + + + | 2023-06-10 19:17 | OTHER [facility] (CURRENT) | [facility] | | | DRUG THERAPY | | + + + + | 2023-06-10 19:17 | ALLERGY STATUS TO | [facility] | | | PENICILLIN | | + + + + | 2023-06-10 19:17 | ALLERGY STATUS TO OTHER | [facility] | | | ANTIBIOTIC AGENTS STATUS | | + + + + | 2023-06-10 19:17 | ALLERGY STATUS TO | [facility] | | | SULFONAMIDES STATUS | | + + + + | 2023-06-10 19:17 | ALLERGY STATUS TO NARCOTIC | [facility] | | | AGENT STATUS | | + + + + | 2023-06-10 19:17 | ALLERGY STATUS TO OTH | [facility] | | | DRUG/MEDS/BIOL SUBST STATUS | | | | | | + + + + Procedures No information. Results/Labs No information. Social History +--------+ + + | date | description | facility | +--------+ + + Vital Signs No information."
--- OUTSIDE RECORDS SUMMARY | ~2023-06-16 | XMS | Continuity of Care Document ---
Demographics + + + | Address | [address] | | | [place] [address] | + + + | Preferred Language | Unknown | + + + | Marital Status | | + + + | Christianity Affiliation | Unknown | + + + | Race | or | + + + | Ethnic Group | Not or | + + + Author + + + | Author | [facility] | + + + | Organization | [facility] | + + + | Address | [address] [place] [address] Way | | | [place] [address] | + + + | Phone | | + + + Care Team Providers + + + + | Care Furniture Finisher Helper Name | Role | Phone | + [...] + + + | 2023-03-20 13:05 | PRISON (CURRENT) USE OF | [facility] | | | INSULIN | | + + + + | 2023-03-20 13:05 | OTHER PRISON (CURRENT) | [facility] | | | DRUG [...] + + + | 2023-04-08 00:15 | ALUM MIXER (CURRENT) USE OF | [facility] | | [...] + + + | 2023-04-22 00:28 | PRISON (CURRENT) USE OF | [facility] | | | INSULIN | | + + + + | 2023-04-22 00:28 | OTHER ALUM MIXER (CURRENT) | [facility] | | | DRUG [...] + + + | 2023-05-05 21:18 | ALUM MIXER (CURRENT) USE OF | [facility] | | | INSULIN | | + + + + | 2023-05-05 21:18 | OTHER ALUM MIXER (CURRENT) | [facility] | | | DRUG [...] + + + | 2023-05-07 18:29 | PRISON (CURRENT) USE OF | [facility] | | | INSULIN | | + + + + | 2023-05-07 18:29 | OTHER PRISON (CURRENT) | [facility] | | | DRUG [...] + + + | 2023-05-11 04:56 | ALUM MIXER (CURRENT) USE OF | [facility] | | | INSULIN | | + + + + | 2023-05-11 04:56 | OTHER ALUM MIXER (CURRENT) | [facility] | | | DRUG [...] + + + | 2023-05-31 00:25 | PRISON (CURRENT) USE OF | [facility] | | | INSULIN | | + + + + | 2023-05-31 00:25 | OTHER ALUM MIXER (CURRENT) | [facility] | | | DRUG [...] + + + | 2023-06-06 00:11 | ALUM MIXER (CURRENT) USE OF | [facility] | | | INSULIN | | + + + + | 2023-06-06 00:11 | OTHER ALUM MIXER (CURRENT) | [facility] | | | DRUG [...] + + | 2023-06-06 22:24 | OTHER ALUM MIXER (CURRENT) | [facility] | | | DRUG [...] + + + | 2023-06-07 15:58 | ALUM MIXER (CURRENT) USE OF | [facility] | | [...] + + + | 2023-06-10 19:17 | PRISON (CURRENT) USE OF | [facility] | | | INSULIN | | + + + + | 2023-06-10 19:17 | OTHER PRISON (CURRENT) | [facility] | | | DRUG [...]
--- OUTSIDE RECORDS SUMMARY | 2023-06-16 04:47 | XMS ---
PreManage Notification: MONTSE GUTIERREZ Security Stonemason Events 3 event(s) in the past 18 months Most recent security events: Elopement at [facility] 01/03/2023 12:12 - Patient eloped before treatment completed. - Patient with suicidal and/or homicidal ideations eloped. - Patient eloped with IV in place. Details: Patient left AMA Elopement at [facility] 08/17/2022 17:10 - Patient eloped before treatment completed. - Patient with suicidal and/or homicidal ideations eloped. - Patient eloped with IV in place. Details: Patient LWBS. Elopement at [facility] 07/08/2022 22:03 - Patient eloped before treatment completed. - Patient with suicidal and/or homicidal ideations eloped. - Patient eloped with IV in place. Details: PATIENT LWBS CRITERIA MET - 6 ED Visits in 6 Months - PDMP [facility] - 2 Visits in 30 Days - [facility] - 3 Facilities in 90 Days CARE PROVIDERS JORDEN HAYWOOD Nurse Practitioner: 04/21/2023-Current PHONE: [phone] [facility] 01/22/2021-[facility] PHONE: [phone] SAUL THORPE Physician Health Support Specialist 03/19/2019-Current PHONE: Unknown Jef has no Care Guidelines for this patient. Care History Medical/Surgical 09/24/2021 [facility] Contacted Gerri laboratory [id number] of recent ED visits. They will follow up with the patient. 02/05/2021 [facility] - [facility]W CALLED AND SPOKE WITH COMMERCIAL LITIGATION ASSOCIATE WALDEMAR- DISCUSSED RECENT ED VISITS- PRIMARY CARE PHYSICIAN REVIEWED PATIENT RECENT ED VISITS AND DID CONTACT PATIENT-THEY HAVE INSTRUCTED PATIENT TO CONTACT PHYSICAL AERODYNAMICIST DR HAMMOND TO SCHEDULE AND EARLIER APT IF POSSIBLE. PATIENT HAS TO MAKE THE APT FOR FOLLOW UP THE CLINIC CAN\T\#39;T SCHEDULE THE APT FOR THE PATIENT. - PATIENT HAS AN APT 02/06/[address] CHRISTENSEN. 01/25/2021 [facility] VOIDING TRIAL SCHEDULED WITH DR CHRISTENSEN UROLOGIST 02/06/21 E.D. VISIT COUNT (12 MO.) [address] ([place]) [address] [place] [address] ([facility]) TOTAL 45 NOTE: Visits indicate total known visits. ED/UCC VISIT TRACKING (12 MO.) 06/16/2023 04:45 [facility] [place] TYPE: Emergency COMPLAINT: - ABD PAIN 06/13/2023 00:19 [facility] Nita LEÓN ([facility]) TYPE: Emergency DIAGNOSES: - Other chronic pain - Other chronic pancreatitis - Persons encountering health services in other specified circumstances - Type 1 diabetes mellitus with hyperglycemia - Unspecified abdominal pain - abd pain 06/10/2023 19:17 [facility] TYPE: Emergency COMPLAINT: - ABD PAIN DIAGNOSES: - Allergy status to narcotic agent - Allergy status to other antibiotic agents - Allergy status to other drugs, medicaments and biological substances - Allergy status to penicillin - Allergy status to sulfonamides - Chronic kidney disease, unspecified - Epigastric pain - Hypertensive chronic kidney disease with stage 1 through stage 4 chronic kidney disease, or unspecified chronic kidney disease - [facility] (current) use of insulin - Other manager terminal (current) drug therapy - Type 1 diabetes mellitus with diabetic chronic kidney disease - Type 1 diabetes mellitus with hyperglycemia 06/07/2023 15:57 [facility] TYPE: Emergency COMPLAINT: - ABD PAIN 06/06/2023 22:24 [facility] TYPE: Emergency COMPLAINT: - ABD PAIN DIAGNOSES: - Allergy status to narcotic agent - Allergy status to other antibiotic agents - Allergy status to other drugs, medicaments and biological substances - Allergy status to penicillin - Allergy status to sulfonamides - Chronic kidney disease, unspecified - Generalized abdominal pain - Hyperglycemia, unspecified - Hypertensive chronic kidney disease with stage 1 through stage 4 chronic kidney disease, or unspecified chronic kidney disease - Hypo-osmolality and hyponatremia - Other 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 (current) drug therapy - Pure hyperglyceridemia - Type 1 diabetes mellitus with diabetic chronic kidney disease - Type 1 diabetes mellitus with hyperglycemia 06/06/2023 00:11 [facility] TYPE: Emergency COMPLAINT: - ABD PAIN DIAGNOSES: - Allergy status to narcotic agent - Allergy status to other antibiotic agents - Allergy status to other drugs, medicaments and biological substances - Allergy status to penicillin - Allergy status to sulfonamides - Chronic kidney disease, unspecified - Generalized abdominal pain - Hypertensive chronic kidney disease with stage 1 through stage 4 chronic kidney disease, or unspecified chronic kidney disease - [facility] (current) use of insulin - Other manager terminal (current) drug therapy - Pure hyperglyceridemia - Type 1 diabetes mellitus with diabetic chronic kidney disease - Upper abdominal pain, unspecified 05/31/2023 00:25 [facility] TYPE: Emergency COMPLAINT: - ABD PAIN DIAGNOSES: - Allergy status to narcotic agent - Allergy status to penicillin - Allergy status to sulfonamides - Epigastric abdominal tenderness - Essential (primary) hypertension - supervisor 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s (current) use of insulin - Other chronic pain - Other manager terminal (current) drug therapy - Type 2 [...] disease, or unspecified chronic kidney disease - supervisor 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s (current) use of insulin - Nausea with vomiting, unspecified - Other 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 (current) drug therapy [...] disease, or unspecified chronic kidney disease - supervisor 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s (current) use of insulin - Other manager terminal (current) drug therapy - Type 2 diabetes mellitus with diabetic chronic kidney disease - Unspecified abdominal pain 04/22/2023 00:27 [facility] TYPE: Emergency COMPLAINT: - ABD PAIN 04/18/2023 17:16 [facility] ([facility]) TYPE: Emergency DIAGNOSES: - Acute pancreatitis without [...] disease, or unspecified chronic kidney disease - [facility] (current) use of insulin - Right upper [...] penicillin - Allergy status to sulfonamides - supervisor 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s (current) use of insulin - Other 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 (current) drug therapy - Upper abdominal pain, [...] disease, or unspecified chronic kidney disease - supervisor 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s (current) use of insulin - Nausea - [...] to sulfonamides - Essential (primary) hypertension - [facility] (current) use of insulin - Other chronic pain - Other manager terminal (current) drug therapy - Right lower quadrant [...] disease, or unspecified chronic kidney disease - supervisor 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s (current) use of insulin - Other 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 [...] Less than 8 weeks gestation of - supervisor 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s (current) use of insulin - Other 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 (current) drug therapy - Other specified related conditions, first trimester - Pre-existing hypertensive chronic kidney disease complicating , first trimester - Type 2 diabetes mellitus with diabetic chronic kidney disease - Unspecified pre-existing diabetes mellitus in , first trimester 02/07/2023 00:38 [facility]N ([facility]) TYPE: Emergency DIAGNOSES: - Generalized abdominal pain - Type 2 diabetes mellitus with hyperglycemia - Abdominal Pain - flank pain Plus 25 More Visits INPATIENT VISIT TRACKING (12 MO.) 06/07/2023 15:58 [facility] TYPE: Observation COMPLAINT: - DKA DEHYDRATION,GASTROPARESIS DIAGNOSES: - Allergy status to other drugs, medicaments and biological substances - Allergy status to penicillin - Allergy status to sulfonamides - Chronic kidney disease, unspecified - Hypertensive chronic kidney disease with stage 1 through stage 4 chronic kidney disease, or unspecified chronic kidney disease - Hypo-osmolality and hyponatremia - [facility] (current) use of insulin - Type 2 diabetes mellitus with diabetic chronic kidney disease - Type 2 diabetes mellitus with hyperglycemia 05/07/2023 18:29 [facility] TYPE: Observation COMPLAINT: - PANCREATITIS DIAGNOSES: - Acute pancreatitis without necrosis or infection, unspecified - Allergy status to narcotic agent - Allergy status to other antibiotic agents - Allergy status to other drugs, medicaments and biological substances - Allergy status to penicillin - Allergy status to sulfonamides - Chronic kidney disease, unspecified - Hypo-osmolality and hyponatremia - supervisor 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s (current) use of insulin - Other 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 (current) drug therapy - Pure hyperglyceridemia - [...] kidney disease - Hypo-osmolality and hyponatremia - [facility] (current) use of insulin - Other 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 [...] kidney disease - Hypokalemia - Hypokalemia - supervisor 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s (current) use of insulin - supervisor 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s (current) use of insulin - Other dental procedure status - Other dental procedure status - Other manager terminal (current) drug therapy - Other manager terminal (current) drug therapy - Personal history [...] - Urinary tract infection, site not specified [email or web address]
[2023-06-16 05:24] LABS: BILIRUBIN, URINE NEGATIVE (negative); BLOOD/HGB, URINE LARGE (Negative); KETONE, URINE TRACE (Negative); LEUK ESTERASE, URINE NEGATIVE (negative); NITRITE, URINE NEGATIVE (negative); PH, URINE 6.5 (5-7)
[2023-06-16 05:28] LABS: EPITHELIAL CELLS, URINE SQUAMOUS 2+ /lpf (0-1+); RED BLOOD CELLS, URINE >50 /hpf (0-5)
[2023-06-16 05:29] LABS: BACTERIA, URINE RARE /hpf (negative); CASTS, URINE NONE SEEN \\lpf; CRYSTALS, URINE NONE SEEN (0-1+); REFLEX CULTURE, URINE No (No)
[2023-06-16 05:38] LABS: BASOPHILS 0.8 % (0-2); EOSINOPHILS 2.9 % (0-6); HEMATOCRIT 26.8 % (35.0-50.0); HEMOGLOBIN 8.8 g/dL (12.0-18.0); MCH 29.7 (27-36); MCHC 32.7 g/dl (30-36); MCV 90.9 fl (81-99); MONOCYTES 8.8 % (0-12); NEUTROPHILS 46.5 % (39-80); PLATELET COUNT 421 K/uL (140-440); RBC 2.95 M/ul (4.3-5.7); RDW 15.4 (10.5-15.0)
[2023-06-16 05:54] LABS: ALBUMIN 3.3 g/dL (3.4-5.0); ALBUMIN/GLOBULIN RATIO 0.8 (1.1-2.4); ANION GAP 17.3 (7-21); BILIRUBIN, TOTAL 0.2 ng/dL (0.2-1.0); BUN/CREATININE RATIO 14.09 (6.0-28.6); CALCIUM 8.7 mg/dL (8.5-10.1); CREATININE, SERUM 2.27 mg/dL (0.55-1.02); POTASSIUM 5.3 mmol/L (3.5-5.1); PROTEIN, TOTAL 7.4 g/dL (6.4-8.2)
[2023-06-16 08:12] LABS: ANION GAP 20.6 (7-21); BUN/CREATININE RATIO 15.97 (6.0-28.6); CALCIUM 8.1 mg/dL (8.5-10.1); CREATININE, SERUM 1.94 mg/dL (0.55-1.02); POTASSIUM 5.6 mmol/L (3.5-5.1)
[2023-06-16 10:44] LABS: ANION GAP 22.3 (7-21); BUN/CREATININE RATIO 14.51 (6.0-28.6); CALCIUM 7.9 mg/dL (8.5-10.1); CREATININE, SERUM 1.86 mg/dL (0.55-1.02); POTASSIUM 4.3 mmol/L (3.5-5.1)
[2023-06-16 11:26] LABS: PH, VENOUS 7.235 (7.31-7.41)
[2023-06-16 13:15] LABS: INFLUENZA B NAA NEGATIVE (NEGATIVE); RESPIRATORY SYNCYTIAL VIR NAA NEGATIVE (NEGATIVE)
--- NOTE | 2023-06-16 14:25 | NUR ---
PT AMB FROM STRECHER TO BED FOR ADMIT TO ROOM 129. ALERT AND ORIENTED, SKIN WNL - DENIES PAIN, BS 72 APPLE JUICE ENSURE GIVEN PO. CALL LIGHT IN REACH - AND VISITOR AT SIDE. DENIES NEEDS. PT HAS IV R THUMB SL, 39.8 KG BED WEIGHT.
[2023-06-16 14:28] VITALS: BP 148/97
[2023-06-16 15:12] LABS: ANION GAP 17.3 (7-21); BUN/CREATININE RATIO 15.78 (6.0-28.6); CALCIUM 8.8 mg/dL (8.5-10.1); CREATININE, SERUM 1.71 mg/dL (0.55-1.02); POTASSIUM 4.3 mmol/L (3.5-5.1)
--- NOTE | 2023-06-16 15:23 | NUR ---
call to dr palma - aware of low bs and bolus held in ccu and held 10 units of insulin in ccu - dr aware and will come see her in a few moments - pt orderd dinner wants to eat, ordered from kitchen. talking on phone with in room.
--- NOTE | 2023-06-16 16:08 | NUR ---
HERE ON UNIT - VO TO START NS AT 200 ML OHOUR - PT DECLINED PO TYLENOL OR GI COCKTAIL FOR ABD DISCOMFORT. STATES IT DOESNT WORK. PT AMB TO BR TO VOID. ASKING FOR DINNER TRAY EARLY - HUNGRY. CALL LIGHT IN REACH WATCHING TV ON PHONE..
[2023-06-16] MEDS ORDERED: PEPCID20 MG PO (16:19)
[2023-06-16] MEDS ORDERED: VITAMIN C500 M1 PO (16:19)
[2023-06-16] MEDS ORDERED: IRON325 M1 PO (16:20)
[2023-06-16] MEDS ORDERED: NORTREL 1-35 21 EACH PO (16:21)
[2023-06-16] MEDS ORDERED: BENADRYL25 MG PO (16:22)
[2023-06-16] MEDS ORDERED: TYLENOL325 MG PO (16:22)
--- NOTE | 2023-06-16 16:22 | NUR ---
MED REC COMPLETE
--- NOTE | 2023-06-16 16:56 | NUR ---
PT BS 102 ON HER PERSONAL SQ MONITOR, VS 150 MG/DL ON ACCUCHECK - 1 UNIT INSULIN GIVEN - PT EATING DINNER NO NAUSEA. CO ITCHING FROM DILAUDID, COOL TOWEL GIVEN, PO TYLENOL FOR ABD CRAMP PAIN PT DESCRIBES IT, SHE IS ON CURRENT MENST. CYCLE BUT RATES DISCOMFORT DIFFRENT. IV FUSING IN R THUMB.
[2023-06-16 18:20] LABS: PH, VENOUS 7.342 (7.31-7.41)
--- NOTE | 2023-06-16 18:26 | NUR ---
DR LAMBERT ON UNIT REVIEW LABS AND HEART MONITOR - WILL RETURN TO DISSCUS DC WITH PT AND .
[2023-06-16 18:33] LABS: ANION GAP 16.8 (7-21); BUN/CREATININE RATIO 12.94 (6.0-28.6); CALCIUM 8.3 mg/dL (8.5-10.1); CREATININE, SERUM 1.7 mg/dL (0.55-1.02); POTASSIUM 4.8 mmol/L (3.5-5.1)
--- NOTE | 2023-06-16 18:49 | NUR ---
DR LAMBERT - JUSTIN REVIEWED, DECREASE IV FLUID TO 125, CRACKERS PROVIDED TO PT PER REQUEST. NEW DIET SPRITE TO PT.
--- NOTE | 2023-06-16 18:54 | NUR ---
PT REPORTS BEING VERY HUNGRY ORDERED A SANDWICH BOX, BS 122 VIA HER SENSOR - OK HER TO EAT, NEXT BS CHECK AT BEDTIME. AT BEDSIDE. - XTRA DELGADO PADS IN BATHROOM FOR HER PERIOD. IV 125 ML HR.
--- NOTE | 2023-06-16 19:47 | NUR ---
CALLED TO REPORT PATIENT WOULD LIKE BENEDRYL FOR ITCHING, SHE REPORTS FROM DILAUDID GIVEN IN ED. SAID "OK, I WILL PUT IT IN"
--- NOTE | 2023-06-16 19:50 | NUR ---
PT UP TO BATHROOM WITH SPOUSE AT THIS TIME.
[2023-06-16 20:02] VITALS: BP 133/90
--- NOTE | 2023-06-16 20:48 | NUR ---
NEW IV SITE ESTABLISHED IN LEFT FOREARM PERPT REQUEST, REMOVED SITE FROM RIGHT WRIST/THUMB.
--- NOTE | 2023-06-16 21:34 | NUR ---
TALKED TO TO UPDATE PT REPORTS PAIN 05/25 ABD, SHE SAID "TYLENOL DOES NOT WORK" SAID HE WOULD PLACE NEW ORDER
--- NOTE | 2023-06-16 21:47 | NUR ---
PT ADMINISTERED NORCO 1 TAB PRN FOR 8/10 ABD CRAMPS. PT JUST RETURNED TO BED FROM BATHROOM VOIDED 300ML URINE. SHE IS SITTING UP IN BED ALERT AND ORIENTED. FLAT AFFECT. TOLERATED ACTIVITY WELL WITH IV POLE ASSIST BY HER SPOUSE IN ROOM. PT HAS STEADY GAIT.
--- NOTE | 2023-06-16 22:57 | NUR ---
PT CALLED NURSES STATION TO REPORT HER GLUCOSE MONITOR ALARMED LOW BLOOD SUGAR, THIS RN PROVIDED ORANGE JUICE, SNACK AND CHECK POINT OF CARE BLOOD GLUCOSE IS 187, V/S STABLE,PT REPORTS SHE WAS JUST ASLEEP WHEN THE ALARM WOKE HER UP. LAB IN PT ROOM NOW FOR 2300 LAB ORDER DRAW
[2023-06-16 23:00] VITALS: BP 145/99
--- NOTE | 2023-06-16 23:26 | NUR ---
PT BACK TO BED AFTER UP TO BATHROOM TO VOID 400ML. NO REQUESTS AT THIS TIME.
[2023-06-16 23:41] LABS: ANION GAP 16.1 (7-21); BUN/CREATININE RATIO 13.54 (6.0-28.6); CALCIUM 8.3 mg/dL (8.5-10.1); CREATININE, SERUM 1.92 mg/dL (0.55-1.02); POTASSIUM 4.1 mmol/L (3.5-5.1)
--- NOTE | 2023-06-17 00:58 | NUR ---
PT REQUEST BENADRYL, REPORTS ITCHING, CALLED TO REPORT, NEW ORDER FOR PRN BENADRYL, DOSE ADMINISTERED. NO OTHER REQUESTS, FRESH ICE WATER PROVIDED, ASSESSMENT COMPLETE
[2023-06-17 03:37] VITALS: BP 121/86
--- NOTE | 2023-06-17 03:38 | NUR ---
PT UP TO BATHROOM TO VOID, TOLERATED ACTIVITY WELL, DID NOT REPORT ANY PAIN, STEADY GAIT. ASKED FOR WARM BLANKET, PROVIDED. ASSESSMENT COMPLETE AND V/S STABLE. PATIENTS SPOUSE RESTING ON ROOM COUCH. NO NEW CONCERNS AT THIS TIME
--- NOTE | 2023-06-17 05:24 | NUR ---
PT RESTING IN BED, NOTED HER BLOOD GLUCOSE ALARM ON HER PHONE SOUNDED, THIS RN INTO ASSESS BEDSIDE BLOOD GLUCOSE 261 AT THIS TIME.
[2023-06-17 05:43] LABS: BASOPHILS 0.6 % (0-2); EOSINOPHILS 2.4 % (0-6); HEMATOCRIT 24.4 % (35.0-50.0); HEMOGLOBIN 7.8 g/dL (12.0-18.0); LYMPHOCYTES 47.1 % (24-44); MCH 29.1 (27-36); MCHC 31.8 g/dl (30-36); MCV 91.4 fl (81-99); MONOCYTES 8.3 % (0-12); NEUTROPHILS 41.6 % (39-80); PLATELET COUNT 360 K/uL (140-440); RBC 2.67 M/ul (4.3-5.7); RDW 15.6 (10.5-15.0)
[2023-06-17 05:56] LABS: ALBUMIN 2.9 g/dL (3.4-5.0); ALBUMIN/GLOBULIN RATIO 0.81 (1.1-2.4); ANION GAP 16.7 (7-21); BILIRUBIN, TOTAL 0.2 ng/dL (0.2-1.0); BUN/CREATININE RATIO 15.88 (6.0-28.6); CALCIUM 8.5 mg/dL (8.5-10.1); CREATININE, SERUM 1.7 mg/dL (0.55-1.02); MAGNESIUM 1.9 mg/dL (1.8-2.4); PHOSPHORUS, INORGANIC 4.1 mg/dL (2.5-4.9); POTASSIUM 4.7 mmol/L (3.5-5.1); PROTEIN, TOTAL 6.5 g/dL (6.4-8.2)
--- NOTE | 2023-06-17 06:10 | NUR ---
CALLED TO NOTIFY OF BLOOD GLUCOSE THIS AM IS 285, NEW ORDER FOR 5UNITS OF REGULAR INSULIN.
[2023-06-17 06:26] VITALS: BP 117/82
--- NOTE | 2023-06-17 06:28 | NUR ---
PT BACK TO BED AFTER AMBULATING TO BATHROOM ASSISTED WITH IV POLE, SHE HAS STEADY GAIT, TOLERATING ACTIVITY WELL. SHE HAS NO REPORT OF PAIN, SHE HAS NO REPORT OF NAUSEA, 5 UNITS OF REGULAR INSULIN ADMINISTERED PER ORDERS.
[2023-06-17 08:08] VITALS: BP 125/92
[2023-06-17 08:27] LABS: PH, VENOUS 7.297 (7.31-7.41)
--- NOTE | 2023-06-17 08:47 | NUR ---
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 PT SITTING UP IN BED EATING BREAKFAST. PT C/O 8/ ABDOMINAL PAIN. PT ASKING WHEN MD WILL COME SEE HER. IVF CONTINUE AT 125 ML/HR. HR 100s AT THIS TIME. VBG PENDING.
[2023-06-17 10:00] LABS: ANION GAP 14.9 (7-21); BUN/CREATININE RATIO 15.88 (6.0-28.6); CALCIUM 9.1 mg/dL (8.5-10.1); CREATININE, SERUM 1.7 mg/dL (0.55-1.02); POTASSIUM 3.9 mmol/L (3.5-5.1)
--- NOTE | 2023-06-17 10:15 | NUR ---
INTO TO VISIT WITH PATIENT AND MOTHER WHO IS AT THE BEDSIDE. PATIENT STATES SHE IS FEELING OKAY. ALL DEMOGRAPHIC INFORMATION CONFIRMED. PATIENT LIVES AT HOME WITH HER WILMER. PATIENT DENIES NEED FOR DME AT THIS TIME. PATIENT CONFIRMS THAT SHE HAS ALL HER DM SUPPLIES AND INSULIN AT HOME. PATIENT STATES SHE IS ESTABLISHED WITH "DR. LEONARDO" AT [facility] AND HAS SEEN HIM RECENTLY. NO FINANICAL NEEDS AT THIS TIME. THIS RN DID DISCUSS REFERRAL TO [facility] TO FOLLOW UP AND PROVIDE FURTHER DM EDUCATION TO THE PATIENT AT DISCHARGE. PATIENT MOTHER FEELS THIS WOULD BE HELPFUL AND PATIENT AGREES TO REFERRAL. NO OTHER QUESTION OR CONCERNS AT THIS TIME. WILL CHECK IN WITH PATIENT DURING HER VISIT.
--- NOTE | 2023-06-17 11:10 | NUR ---
DR. SIMMONS IN ROOM TO SEE PATIENT AT THIS TIME. PLAN OF CARE BEING DISCUSSED. PT TO D/C HOME.
--- NOTE | 2023-06-17 11:12 | NUR ---
LEFT MESSAGE FOR LILIA MIRZA WITH REFERRALS FOR JORDEN MANN AT [facility]. REQUEST REFERRAL TO BE SENT TO [facility] FOR FOLLOW UP EDUCATION AND SERVICES AT FOLLOW UP.
== END 2023-06-17 12:30 | disposition home or self-care (01) ==
LOC: ED 04:44 → CCU 04:46
PROVIDERS: Emergency Medicine; Internal Medicine; ADMIT Family Medicine; ATTEND Family Medicine
DX: E11.10 Type 2 diabetes mellitus with ketoacidosis without coma (principal); E87.5 Hyperkalemia; E11.22 Type 2 diabetes mellitus with diabetic chronic kidney disease; N18.4 Chronic kidney disease, stage 4 (severe); Z20.822 Contact with and (suspected) exposure to COVID-19; Z88.2 Allergy status to sulfonamides; Z88.8 Allergy status to other drugs, medicaments and biological substances; Z88.1 Allergy status to other antibiotic agents
CPT/HCPCS: 36415; 71045; 80048; 80053; 81001; 82010; 82803; 83690; 83735; 84100; 84703; 85025; 87502; 96361; 96374; 96375; 99285-25; A9270; C9803; G0378; J0780; J1170; J1200; J1815; J7030; U0002

== ENCOUNTER 2023-07-09 19:04 | Observation (INO) | payer OTHER ==
[~2023-07-09] VITALS: Ht 149.9 cm; Wt 42.6 kg
[~2023-07-09 19:04] MED LIST changes: +BENADRYL25 MG PO; +CYCLOBENZAPRINE10 MG PO; +NORTREL 1-35 21 EACH PO
--- OUTSIDE RECORDS SUMMARY | 2023-07-09 19:06 | XMS ---
PreManage Notification: MONTSE GUTIERREZ Security Actimize Architect Events 4 event(s) in the past 18 months Most recent security events: Elopement at [facility] 05/30/2023 11:44 - Patient eloped before treatment completed. - Patient with suicidal and/or homicidal ideations eloped. - Patient eloped with IV in place. Details: Patient LWBS Elopement at [facility] [...] with IV in place. Details: Patient LWBS. CRITERIA MET - 6 ED Visits in 6 Months - Group Notification - PDMP - [facility] - 2 Visits in 30 Days - [facility] - 3 Facilities in 90 Days CARE PROVIDERS JORDEN HAYWOOD Nurse Practitioner: 04/21/2023-[facility] PHONE: [phone] [facility] 01/22/2021-[facility] PHONE: [phone] SAUL THORPE Physician Enterprise Resource Analyst 03/19/2019-Current PHONE: Unknown Jef has no Care Guidelines for this patient. Care History Medical/Surgical 09/24/2021 [facility] Contacted Gerri scroll saw [id number]-[id number] of recent ED visits. They will follow up with the patient. 02/05/2021 [facility] - W CALLED AND SPOKE WITH SIMULATION SPECIALIST WALDEMAR- DISCUSSED RECENT ED VISITS- PRIMARY CARE PHYSICIAN REVIEWED PATIENT RECENT ED VISITS AND DID CONTACT PATIENT-THEY HAVE INSTRUCTED PATIENT TO CONTACT COMMERCIAL SERVICE TECHNICIAN DR HAMMOND TO SCHEDULE AND EARLIER APT IF POSSIBLE. PATIENT HAS TO MAKE THE APT FOR FOLLOW UP THE CLINIC CAN\T\#39;T SCHEDULE THE APT FOR THE PATIENT. - PATIENT HAS AN APT 02/06/[address] CHRISTENSEN. 01/25/2021 [facility] VOIDING TRIAL SCHEDULED WITH DR CHRISTENSEN UROLOGIST 02/06/[place] (12 MO.) 35 [facility] 7 [facility] ([place] [address] [place] [address] ([facility]) TOTAL 43 NOTE: Visits indicate total known visits. ED/UCC VISIT TRACKING (12 MO.) 07/09/2023 19:04 [facility] TYPE: Emergency COMPLAINT: - ABDOMINAL PAIN 07/06/2023 23:30 [facility] [place] TYPE: Emergency COMPLAINT: - CP DIAGNOSES: - Allergy status to narcotic agent - Allergy status to penicillin - Allergy status to sulfonamides - Chest pain on breathing - Essential (primary) hypertension - terminal operator (current) use of insulin - Other chest pain - Other prison (current) drug therapy - Type 2 diabetes mellitus without complications 06/16/2023 04:45 [facility] [place] TYPE: Emergency COMPLAINT: - ABD PAIN 06/13/2023 00:19 [facility] ([place]) TYPE: Emergency DIAGNOSES: - Other chronic pain [...] or unspecified chronic kidney disease - terminal operator (current) use of insulin - Other 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 school teacher (current) drug therapy - Type 1 diabetes [...] disease - Hypo-osmolality and hyponatremia - Other prison (current) drug therapy - Pure hyperglyceridemia - [...] or unspecified chronic kidney disease - terminal operator (current) use of insulin - Other 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 school teacher (current) drug therapy - Pure hyperglyceridemia - Type 1 diabetes mellitus with diabetic chronic kidney disease - Upper abdominal pain, unspecified 05/31/2023 00:25 [facility] [place] TYPE: Emergency COMPLAINT: - ABD PAIN DIAGNOSES: - Allergy status to narcotic agent - Allergy status to penicillin - Allergy status to sulfonamides - Epigastric abdominal tenderness - Essential (primary) hypertension - terminal operator (current) use of insulin - Other [...] nursing (current) use of insulin - Nausea with vomiting, unspecified - Other 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 school teacher (current) drug therapy - Type 1 diabetes [...] nursing (current) use of insulin - Other prison (current) drug therapy - Type 2 diabetes mellitus with diabetic chronic kidney disease - Unspecified abdominal pain 04/22/2023 00:27 [facility] [place] TYPE: Emergency COMPLAINT: - ABD PAIN 04/18/2023 17:16 [facility] TYPE: Emergency DIAGNOSES: - Acute pancreatitis without [...] penicillin - Allergy status to sulfonamides - skilled nursing (current) use of insulin - Other prison (current) drug therapy - Upper abdominal pain, [...] or unspecified chronic kidney disease - terminal operator (current) use of insulin - Nausea - [...] to sulfonamides - Essential (primary) hypertension - skilled nursing (current) use of insulin - Other chronic pain - Other 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 school teacher (current) drug therapy - Right lower quadrant [...] or unspecified chronic kidney disease - terminal operator (current) use of insulin - Other prison (current) drug therapy - Type 1 diabetes mellitus with diabetic chronic kidney disease - Type 1 diabetes mellitus with hyperglycemia Plus 23 More Visits INPATIENT VISIT TRACKING (12 MO.) 06/16/2023 04:46 [facility] [place] TYPE: Observation COMPLAINT: - DKA DIAGNOSES: - Allergy status to other antibiotic agents - Allergy status to other drugs, medicaments and biological substances - Allergy status to sulfonamides - Chronic kidney disease, stage 4 (severe) - Contact with and (suspected) exposure to COVID-19 - Hyperkalemia - Type 2 diabetes mellitus with diabetic chronic kidney disease - Type 2 diabetes mellitus with ketoacidosis without coma 06/07/2023 15:58 [facility] [place] TYPE: Observation COMPLAINT: - DKA DEHYDRATION,GASTROPARESIS DIAGNOSES: - Allergy status to other drugs, medicaments and biological substances - Allergy status to penicillin - Allergy status to sulfonamides - Chronic kidney disease, unspecified - Contact with and (suspected) exposure to COVID-19 - Hypertensive chronic kidney disease with stage 1 through stage 4 chronic kidney disease, or unspecified chronic kidney disease - Hypo-osmolality and hyponatremia - terminal operator (current) use of insulin - [...] disease, unspecified - Hypo-osmolality and hyponatremia - skilled nursing (current) use of insulin - Other prison (current) drug therapy - Pure hyperglyceridemia - Type 2 diabetes mellitus with diabetic chronic kidney disease 04/22/2023 00:28 [facility] [place] TYPE: Observation COMPLAINT: - HHS [...] (current) use of insulin - Other 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 school teacher (current) drug therapy - Type 1 diabetes [...] mellitus with ketoacidosis without coma 12/08/2022 11:[address] [facility] [place] TYPE: Medical [...] kidney disease - Hypokalemia - Hypokalemia - skilled nursing (current) use of insulin - terminal operator (current) use of insulin - Other dental procedure status - Other dental procedure status - Other prison (current) drug therapy - Other 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 school teacher (current) drug therapy - Personal history of [...] ear - Unspecified hearing loss, right ear [email or web address]
[2023-07-09 19:46] LABS: BILIRUBIN, URINE NEGATIVE (negative); BLOOD/HGB, URINE TRACE-I (Negative); KETONE, URINE NEGATIVE (Negative); LEUK ESTERASE, URINE TRACE (negative); NITRITE, URINE NEGATIVE (negative); PH, URINE 6.5 (5-7)
[2023-07-09 19:49] LABS: BASOPHILS 1.2 % (0-2); EOSINOPHILS 1.9 % (0-6); HEMATOCRIT 27.4 % (35.0-50.0); HEMOGLOBIN 8.8 g/dL (12.0-18.0); LYMPHOCYTES 26.6 % (24-44); MCH 29.6 (27-36); MCHC 32.3 g/dl (30-36); MCV 91.7 fl (81-99); MONOCYTES 7.3 % (0-12); PLATELET COUNT 416 K/uL (140-440); RBC 2.99 M/ul (4.3-5.7); RDW 15.3 (10.5-15.0)
[2023-07-09 19:52] LABS: CASTS, URINE NONE SEEN \\lpf; CRYSTALS, URINE NONE SEEN (0-1+); EPITHELIAL CELLS, URINE SQUAMOUS 1+ /lpf (0-1+); WHITE BLOOD CELLS, URINE >50 /HPF (0-5)
[2023-07-09 19:53] LABS: BACTERIA, URINE 1+ /hpf (negative); COLLECTION TYPE, URINE CLEAN CATCH; REFLEX CULTURE, URINE Yes (No)
[2023-07-09 19:57] LABS: ALBUMIN 3.6 g/dL (3.4-5.0); ALBUMIN/GLOBULIN RATIO 0.82 (1.1-2.4); ANION GAP 20.5 (7-21); BILIRUBIN, TOTAL 0.2 ng/dL (0.2-1.0); BUN/CREATININE RATIO 12.94 (6.0-28.6); CALCIUM 8.4 mg/dL (8.5-10.1); CREATININE, SERUM 2.24 mg/dL (0.55-1.02); POTASSIUM 4.5 mmol/L (3.5-5.1)
[2023-07-09 22:19] LABS: INFLUENZA B NAA NEGATIVE (NEGATIVE); RESPIRATORY SYNCYTIAL VIR NAA NEGATIVE (NEGATIVE)
[2023-07-09 22:45] VITALS: BP 149/100
--- NOTE | 2023-07-09 23:00 | NUR ---
@3910 PT ARRIVED TO FLOOR, ACCOMPAINED WITH ER NURSE. SELF TRANSFERED OFF STRETCHER, TO BATHROOM AND BACK. VS COMPLETED. A/O, RA. HOUGH IN ROOM ON COUCH, SPENDING THE NIGHT. FRESH ICE WATER AT BEDSIDE.
--- NOTE | 2023-07-09 23:15 | NUR ---
PT BLOOD SUGAR [address] TORRES NOTIFIED. NO NEW ORDERS AT THIS TIME. SCHEDULED 11 UNITS OF HUMALOG ADMINISTERED. PT TOLERATED WELL. NO OTHER NEEDS AT THIS TIME. CALL LIGHT W/IN REACH. AT BEDSIDE. WILL CONTINUE TO MONITOR.
[2023-07-10 01:15] VITALS: BP 128/84
--- NOTE | 2023-07-10 01:54 | NUR ---
PT REQUESTED TYLENOL. PT EASILY WOKE FOR MEDICATION, CENTER ABD. PAIN 7/10. EYES CLOSED WHEN RN LEFT ROOM. NO OTHER NEEDS.
--- NOTE | 2023-07-10 04:15 | NUR ---
PT RESTING COMFORTABLY WITH EYES CLOSED. BREATHING EVEN AND UNLABORED. AT BEDSIDE. IV FLUIDS INFUSING. IV PATENT AND INTACT. NO SIGNS OF ACUTE DISTRESS. NO NEEDS EXPRESSED AT THIS TIME. CALL LIGHT WITHIN REACH. SAFETY PRECAUTIONS IN PLACE.
[2023-07-10 06:02] LABS: BASOPHILS 0.5 % (0-2); EOSINOPHILS 2.9 % (0-6); HEMATOCRIT 23.9 % (35.0-50.0); HEMOGLOBIN 7.9 g/dL (12.0-18.0); LYMPHOCYTES 33.5 % (24-44); MCHC 32.8 g/dl (30-36); MCV 88.4 fl (81-99); MONOCYTES 8.5 % (0-12); NEUTROPHILS 54.6 % (39-80); PLATELET COUNT 358 K/uL (140-440); RBC 2.71 M/ul (4.3-5.7); RDW 14.4 (10.5-15.0)
[2023-07-10 06:13] LABS: ANION GAP 13.1 (7-21); BUN/CREATININE RATIO 15.11 (6.0-28.6); CALCIUM 8.6 mg/dL (8.5-10.1); CREATININE, SERUM 1.72 mg/dL (0.55-1.02); POTASSIUM 4.1 mmol/L (3.5-5.1)
[2023-07-10 06:33] VITALS: BP 131/85
--- NOTE | 2023-07-10 07:30 | NUR ---
REPORT GIVEN TO DAY SHIFT RN. PT RESTING COMFORTABLY IN BED WITH EYES CLOSED. BREATHING EVEN AND UNLABORED. NO SIGNS OF ACUTE DISTRESS. NO NEEDS EXPRESSED AT THIS TIME. CALL LIGHT WITHIN REACH. IV FLUIDS INFUSING. SAFETY PRECAUTIONS IN PLACE.
--- NOTE | 2023-07-10 07:54 | NUR ---
RECIEVED REPORT FROM NURSE. PT IS CURRENTLY IN BED RESTING. A+O WHEN INTRODUCING MYSELF. WHEN ASKED IF SHE NEEDED ANYTHING PT REQUESTED A WARM BLANKET AND IT WAS GIVEN. NO OTHER CARES ARE NEEDED OR REQUESTED AT THIS TIME. CALL LIGHT WITHIN REACH.
--- NOTE | 2023-07-10 08:12 | NUR ---
MED REC COMPLETE
--- NOTE | 2023-07-10 09:19 | NUR ---
PT AND APPEAR TO BE SLEEPING. DID NOT DISTURB. PRAYED FOR ISLAM OF HEALTH AND WISDOM IN LIFE.
[2023-07-10 09:33] VITALS: BP 135/94
--- NOTE | 2023-07-10 09:42 | NUR ---
WOKE PATIENT UP LONG ENOUGH TO TAKE HER VITALS. ASKED PATIENT IF SHE WAS DONE WITH HER BREAKFAST AND SHE SAID KNOW SHE IS GOING TO TRY TO EAT SOME LATER. PATIENT IS SLEEPING NOW.
--- NOTE | 2023-07-10 10:29 | NUR ---
UR NOTE: MCG ABDOMINAL PAIN, UNDIAGNOSED: OBSERVATION MET 07/09/23
--- NOTE | 2023-07-10 11:24 | NUR ---
PATIENT ALERT AND ORIENTED. SITTING UP IN BED. STATES SHE HAS HAD NO CHANGES SINCRE PREVIOUS HOSPITALIZATION. DEMOGRAPHICS CONFIRMED. LIVES AT HOME WITH WALTER. NO NEEDS FOR DME. DENIES ANY NEEDS FOR DME. HAS INSULIN AND SUPPLIES AT HOME. NO FINANCIAL NEEDS. INFORMED TO NOTIFY STAFF IF NEEDS ARISE. VERBALIZES UNDERSTANDING.
--- NOTE | 2023-07-10 11:30 | NUR ---
PT ASSESSMENT IS COMPLETE. PT ISC OMPLAINING OF ABDOMINAL PAIN AT A LEVEL OF 8. TYLENO; WAS GIVEN ALSO A HOT PACK PER PATIENT REQUEST. LUNG SOUNDS CLEAR. A+O. OTHER THAN ABDOMEN NO ABNORMAL FINDINGS. PT IS CURRENTLY RECIEVING IV FLUIDS. NO OTHER CARES ARE REQUESTED OR NEEDED AT THIS TIME. CALL [facility] WITHIN REACH
--- NOTE | 2023-07-10 12:27 | NUR ---
PT IS CURRENTLY EATING AND SITTING UP IN BED CARVAJAL POSITION. PT STATES SHE IS OK AND NEEDS NOTHING WHEN ASKED. NO OTHER CARES NEEDED AT THIS TIME. CALL LIGHT WITHIN REACH
[2023-07-10 13:55] VITALS: BP 120/87
[2023-07-11] MEDS ORDERED: TRAMADOL HCL50 MG PO (21:06)
[2023-07-11] MEDS ORDERED: ONDANSETRON ODT8 MG PO (21:06)
== END 2023-07-10 15:06 | disposition home or self-care (01) ==
LOC: ED 19:04 → MS 19:05
PROVIDERS: Internal Medicine; ADMIT Internal Medicine; ATTEND Internal Medicine
DX: E11.00 Type 2 diabetes mellitus with hyperosmolarity without nonketotic hyperglycemic-hyperosmolar coma (NKHHC) (principal); E87.1 Hypo-osmolality and hyponatremia; I10 Essential (primary) hypertension; E78.1 Pure hyperglyceridemia; Z11.52 Encounter for screening for COVID-19; Z88.2 Allergy status to sulfonamides; Z88.8 Allergy status to other drugs, medicaments and biological substances; Z88.1 Allergy status to other antibiotic agents; Z88.0 Allergy status to penicillin; Z88.5 Allergy status to narcotic agent; Z79.4 Long term (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; Z79.899 Other long term (current) 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; Z91.148 Patient's other noncompliance with medication regimen for other reason
CPT/HCPCS: 36415; 80048; 80053; 81001; 82010; 82150; 83690; 85025; 87088; 87502; 96361; 96374; 96375; 96376; 99285-25; A9270; C9803; G0378; J1200; J1815; J1885; J2405; J7121; U0002

== ENCOUNTER 2023-07-16 19:23 | Emergency (ER) | payer OTHER ==
[~2023-07-16] VITALS: Ht 149.9 cm; Wt 40.6 kg
[~2023-07-16 19:23] MED LIST changes: +TRAMADOL HCL50 MG PO
--- OUTSIDE RECORDS SUMMARY | 2023-07-16 19:26 | XMS ---
PreManage Notification: MONTSE GUTIERREZ Security Umbrella Repairer Events 4 event(s) in the past 18 months Most recent security events: Elopement at [facility] 05/30/2023 11:44 - Patient eloped before treatment completed. - Patient with suicidal and/or homicidal ideations eloped. - Patient eloped with IV in place. Details: Patient LWBS Elopement at [facility] 01/03/2023 12:12 - Patient eloped before treatment completed. - Patient with suicidal and/or homicidal ideations eloped. - Patient eloped with IV in place. Details: Patient left AMA Elopement at [facility] 08/17/2022 17:10 - Patient eloped before treatment completed. - Patient with suicidal and/or homicidal ideations eloped. - Patient eloped with IV in place. Details: Patient LWBS. CRITERIA MET - 6 ED Visits in 6 Months - Group Notification - PDMP - [facility] - 2 Visits in 30 Days - [facility] - 3 Facilities in 90 Days CARE PROVIDERS JORDEN HAYWOOD Nurse Practitioner: 04/21/2023-[facility] PHONE: [phone] [facility] 01/22/2021-[facility] PHONE: [phone] SAUL THORPE Physician Country Printer Apprentice 03/19/2019-Current PHONE: Unknown Jef has no Care Guidelines for this patient. Care History Medical/Surgical 09/24/2021 [facility] Contacted Gerri binding folder [id number]-[id number]-[id number] of recent ED visits. They will follow up with the patient. 02/05/2021 [facility] - W CALLED AND SPOKE WITH SPRING TESTER WALDEMAR- DISCUSSED RECENT ED VISITS- PRIMARY CARE PHYSICIAN REVIEWED PATIENT RECENT ED VISITS AND DID CONTACT PATIENT-THEY HAVE INSTRUCTED PATIENT TO CONTACT CURLING MACHINE OPERATOR DR HAMMOND TO SCHEDULE AND EARLIER APT IF POSSIBLE. PATIENT HAS TO MAKE THE APT FOR FOLLOW UP THE CLINIC CAN\T\#39;T SCHEDULE THE APT FOR THE PATIENT. - PATIENT HAS AN APT 02/06/[address] CHRISTENSEN. 01/25/2021 [facility] VOIDING TRIAL SCHEDULED WITH DR CHRISTENSEN UROLOGIST 02/06/21 [place] V[place] (12 MO.) 37 [facility] 6 [facility] ([place]) [address] [place] [address] ([facility]) TOTAL 44 NOTE: Visits indicate total known visits. ED/UCC VISIT TRACKING (12 MO.) 07/16/2023 19:[address] [facility] [place] TYPE: Emergency COMPLAINT: - ABD PAIN, NAUSEA 07/11/2023 17:51 [facility] [place] TYPE: Emergency COMPLAINT: - ABDOMINAL PAIN DIAGNOSES: - Allergy status to narcotic agent - Allergy status to other antibiotic agents - Allergy status to other drugs, medicaments and biological substances - Allergy status to penicillin - Allergy status to sulfonamides - Chronic kidney disease, unspecified - Epigastric pain - Hyperlipidemia, unspecified - Hypertensive chronic kidney disease with stage 1 through stage 4 chronic kidney disease, or unspecified chronic kidney disease - longterm (current) use of insulin - Other fpc (current) drug therapy - Type 2 diabetes mellitus with diabetic chronic kidney disease - Type 2 diabetes mellitus with hyperglycemia 07/09/2023 19:04 [facility] [place] TYPE: Emergency COMPLAINT: - ABDOMINAL PAIN 07/06/2023 23:30 [facility] [place] TYPE: Emergency COMPLAINT: - CP DIAGNOSES: - Allergy status to narcotic agent - Allergy status to penicillin - Allergy status to sulfonamides - Chest pain on breathing - Essential (primary) hypertension - longterm (current) use of insulin - Other chest pain - Other fpc (current) drug therapy - Type 2 diabetes mellitus without complications 06/16/2023 04:45 [facility] [place] TYPE: Emergency COMPLAINT: - [facility]BD [facility] TYPE: Emergency DIAGNOSES: - [...] driver (current) use of insulin - Other fpc (current) drug therapy - Type 1 diabetes [...] disease - Hypo-osmolality and hyponatremia - Other meterman (current) drug therapy - Pure hyperglyceridemia - [...] disease, or unspecified chronic kidney disease - longterm (current) use of insulin - Other fpc (current) drug therapy - Pure hyperglyceridemia - Type 1 diabetes mellitus with diabetic chronic kidney disease - Upper abdominal pain, unspecified 05/31/2023 00:25 [facility] [place] TYPE: Emergency COMPLAINT: - ABD PAIN DIAGNOSES: - Allergy status to narcotic agent - Allergy status to penicillin - Allergy status to sulfonamides - Epigastric abdominal tenderness - Essential (primary) hypertension - 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 - Other chronic pain - Other fpc (current) drug therapy [...] disease, or unspecified chronic kidney disease - longterm (current) use of insulin - Nausea with vomiting, unspecified - Other meterman (current) drug therapy - Type 1 diabetes [...] driver (current) use of insulin - Other fpc (current) drug therapy - Type 2 diabetes mellitus with diabetic chronic kidney disease - Unspecified abdominal pain 04/22/2023 00:27 [facility] [place] TYPE: Emergency COMPLAINT: - ABD PAIN 04/18/2023 17:16 [facility] ([facility]) TYPE: Emergency DIAGNOSES: - Acute pancreatitis without [...] truck driver (current) use of insulin - Right upper [...] penicillin - Allergy status to sulfonamides - longterm (current) use of insulin - Other fpc (current) drug therapy - Upper abdominal pain, [...] disease, or unspecified chronic kidney disease - longterm (current) use of insulin - Nausea - Type 1 diabetes mellitus with diabetic chronic kidney disease - Type 1 diabetes mellitus with hyperglycemia Plus 24 More Visits INPATIENT VISIT TRACKING (12 MO.) 07/09/2023 19:05 [facility] [place] TYPE: Observation COMPLAINT: - HYPERGLYCEMIA DIAGNOSES: - Allergy status to narcotic agent - Allergy status to other antibiotic agents - Allergy status to other drugs, medicaments and biological substances - Allergy status to penicillin - Allergy status to sulfonamides - Encounter for screening for COVID-19 - Essential (primary) hypertension - Hypo-osmolality and hyponatremia - longterm (current) use of insulin - Other fpc (current) drug therapy - Pure hyperglyceridemia - Type 2 diabetes mellitus with hyperosmolarity without nonketotic hyperglycemic-hyperosmolar coma ([facility]) - Unspecified abdominal pain - PATIENT'S OTHER NONCOMPL WITH MEDS REGIMEN FOR OTH 06/16/2023 04:46 [facility] [place] TYPE: Observation [...] kidney disease - Hypo-osmolality and hyponatremia - longterm (current) use of insulin - Type 2 [...] disease, unspecified - Hypo-osmolality and hyponatremia - 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 - Other meterman (current) drug therapy - Pure hyperglyceridemia - [...] kidney disease - Hypo-osmolality and hyponatremia - longterm (current) use of insulin - Other meterman (current) drug therapy - Type 1 diabetes [...] kidney disease - Hypokalemia - Hypokalemia - 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 - 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 - Other dental procedure status - Other dental procedure status - Other fpc (current) drug therapy - Other fpc (current) drug therapy - Personal history of [...] ear - Unspecified hearing loss, right ear [email or web address]
[2023-07-16 20:35] LABS: PH, VENOUS 7.393 (7.31-7.41)
[2023-07-16 20:37] LABS: BASOPHILS 0.9 % (0-2); EOSINOPHILS 1.5 % (0-6); HEMATOCRIT 26.8 % (35.0-50.0); HEMOGLOBIN 8.8 g/dL (12.0-18.0); LYMPHOCYTES 25.1 % (24-44); MCH 29.6 (27-36); MCHC 32.9 g/dl (30-36); MCV 89.9 fl (81-99); MONOCYTES 6.6 % (0-12); NEUTROPHILS 65.9 % (39-80); PLATELET COUNT 467 K/uL (140-440); RBC 2.98 M/ul (4.3-5.7); RDW 14.7 (10.5-15.0)
[2023-07-16 20:51] LABS: BILIRUBIN, URINE NEGATIVE (negative); BLOOD/HGB, URINE SMALL (Negative); KETONE, URINE TRACE (Negative); LEUK ESTERASE, URINE SMALL (negative); NITRITE, URINE NEGATIVE (negative)
[2023-07-16 20:56] LABS: EPITHELIAL CELLS, URINE SQUAMOUS 1+ /lpf (0-1+)
[2023-07-16 20:57] LABS: CRYSTALS, URINE NONE SEEN (0-1+); WHITE BLOOD CELLS, URINE >50 /HPF (0-5)
[2023-07-16 20:58] LABS: BACTERIA, URINE RARE /hpf (negative); CASTS, URINE NONE SEEN \\lpf; REFLEX CULTURE, URINE Yes (No)
[2023-07-16 21:00] LABS: ALBUMIN 3.7 g/dL (3.4-5.0); ALBUMIN/GLOBULIN RATIO 0.9 (1.1-2.4); ANION GAP 15.3 (7-21); BILIRUBIN, TOTAL 0.3 ng/dL (0.2-1.0); BUN/CREATININE RATIO 9.32 (6.0-28.6); CALCIUM 8.7 mg/dL (8.5-10.1); CREATININE, SERUM 3.43 mg/dL (0.55-1.02); POTASSIUM 5.3 mmol/L (3.5-5.1); PROTEIN, TOTAL 7.8 g/dL (6.4-8.2)
[2023-07-16 23:38] LABS: ANION GAP 16.9 (7-21); BUN/CREATININE RATIO 10.21 (6.0-28.6); CALCIUM 8.5 mg/dL (8.5-10.1); CREATININE, SERUM 2.84 mg/dL (0.55-1.02); POTASSIUM 3.9 mmol/L (3.5-5.1)
[2023-07-17] MEDS ORDERED: REGLAN10 MG PO (00:05)
[2023-07-17 00:21] VITALS: BP 136/99
== END 2023-07-17 00:22 | disposition home or self-care (01) ==
LOC: ED 19:23
PROVIDERS: Family Medicine
DX: R10.13 Epigastric pain (principal); E11.65 Type 2 diabetes mellitus with hyperglycemia; I12.9 Hypertensive chronic kidney disease with stage 1 through stage 4 chronic kidney disease, or unspecified chronic kidney disease; E11.22 Type 2 diabetes mellitus with diabetic chronic kidney disease; N18.9 Chronic kidney disease, unspecified; E78.5 Hyperlipidemia, unspecified; Z88.2 Allergy status to sulfonamides; Z88.8 Allergy status to other drugs, medicaments and biological substances; Z88.1 Allergy status to other antibiotic agents; Z88.0 Allergy status to penicillin; Z88.5 Allergy status to narcotic agent; Z79.899 Other long term (current) 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; Z79.4 Long term (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; Z91.148 Patient's other noncompliance with medication regimen for other reason
CPT/HCPCS: 36415; 76705; 80048; 80053; 81001; 82010; 82150; 82803; 83605; 84703; 85025; J1200; J1815; J2270; J2405; J7030; J7121

== ENCOUNTER 2023-07-17 20:09 | Emergency (ER) | payer OTHER ==
[~2023-07-17] VITALS: Ht 149.9 cm; Wt 41.3 kg
[2023-07-17 21:35] LABS: BILIRUBIN, URINE NEGATIVE (negative); BLOOD/HGB, URINE TRACE-I (Negative); KETONE, URINE NEGATIVE (Negative); LEUK ESTERASE, URINE SMALL (negative); NITRITE, URINE NEGATIVE (negative); PH, URINE 6.5 (5-7)
[2023-07-17 21:40] LABS: EPITHELIAL CELLS, URINE SQUAMOUS 3+ /lpf (0-1+)
[2023-07-17 21:41] LABS: BACTERIA, URINE 2+ /hpf (negative); CASTS, URINE NONE SEEN \\lpf; CRYSTALS, URINE NONE SEEN (0-1+); REFLEX CULTURE, URINE No (No); WHITE BLOOD CELLS, URINE >50 /HPF (0-5)
--- OUTSIDE RECORDS SUMMARY | 2023-07-17 21:43 | XMS ---
PreManage Notification: MONTSE GUTIERREZ Security Riding Teacher Events 4 event(s) in the past 18 months Most recent security events: Elopement at [facility] 05/30/2023 11:44 - Patient eloped before treatment completed. - Patient with suicidal and/or homicidal ideations eloped. - Patient eloped with IV in place. Details: Patient LWBS Elopement at [facility] 01/03/2023 12:12 - Patient eloped before treatment completed. - Patient with suicidal and/or homicidal ideations eloped. - Patient eloped with IV in place. Details: Patient left AMA Elopement at [facility] 08/17/2022 17:10 - Patient eloped before treatment completed. - Patient with suicidal and/or homicidal ideations eloped. - Patient eloped with IV in place. Details: Patient LWBS. CRITERIA MET - 6 ED Visits in 6 Months - Group Notification - PDMP - [facility] - 2 Visits in 30 Days - [facility] - 3 Facilities in 90 Days CARE PROVIDERS JORDEN HAYWOOD Nurse Practitioner: 04/21/2023-[facility] PHONE: [phone] [facility] 01/22/2021-[facility] PHONE: [phone] SAUL THORPE Physician Restorative Art Embalmer 03/19/2019-Current PHONE: Unknown Jef has no Care Guidelines for this patient. Care History Medical/Surgical 09/24/2021 [facility] Contacted Gerri recreation program coordinatorAjcvgic-Mbdvlj-okscddda of recent ED visits. They will follow up with the patient. 02/05/2021 [facility] - W CALLED AND SPOKE WITH ASSISTANT TO THE DEAN WALDEMAR- DISCUSSED RECENT ED VISITS- PRIMARY CARE PHYSICIAN REVIEWED PATIENT RECENT ED VISITS AND DID CONTACT PATIENT-THEY HAVE INSTRUCTED PATIENT TO CONTACT STREET OPENINGS INSPECTOR DR HAMMOND TO SCHEDULE AND EARLIER APT IF POSSIBLE. PATIENT HAS TO MAKE THE APT FOR FOLLOW UP THE CLINIC CAN\T\#39;T SCHEDULE THE APT FOR THE PATIENT. - PATIENT HAS AN APT 02/06/[address] CHRISTENSEN. 01/25/2021 [facility] VOIDING TRIAL SCHEDULED WITH DR CHRISTENSEN UROLOGIST 02/06/21 [place] VISIT COUNT (12 MO.) 38 [facility] 6 [facility] ([place]) [address] [place] [address] ([facility]) TOTAL 45 NOTE: Visits indicate total known visits. ED/UCC VISIT TRACKING (12 MO.) 07/17/2023 20:10 [facility] [place] TYPE: Emergency COMPLAINT: - ABD PAIN 07/16/2023 19:24 [facility] [place] TYPE: Emergency COMPLAINT: - [...] disease, or unspecified chronic kidney disease - assisted (current) use of insulin - Other longterm (current) 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 - Type 2 diabetes mellitus with diabetic chronic kidney disease - Type 2 diabetes mellitus with hyperglycemia - PATIENT'S OTHER NONCOMPL WITH MEDS REGIMEN FOR OTH 07/11/2023 17:51 [facility] [place] TYPE: Emergency [...] disease, or unspecified chronic kidney disease - ad terminal makeup operator (current) use of insulin - Other adjunct faculty for medical terminology (current) drug therapy - Type 2 diabetes [...] on breathing - Essential (primary) hypertension - ad terminal makeup operator (current) use of insulin - Other chest pain - Other longterm (current) 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 - Type 2 diabetes mellitus without complications 06/16/2023 04:45 [facility] [place] TYPE: Emergency COMPLAINT: - ABD PAIN 06/13/2023 00:19 [facility] Joshua LEÓN ([place]) TYPE: Emergency DIAGNOSES: - Other chronic pain [...] disease, or unspecified chronic kidney disease - ad terminal makeup operator (current) use of insulin - Other longterm (current) 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 - Type 1 diabetes [...] disease - Hypo-osmolality and hyponatremia - Other adjunct faculty for medical terminology (current) drug therapy - Pure hyperglyceridemia - [...] disease, or unspecified chronic kidney disease - ad terminal makeup operator (current) use of insulin - Other longterm (current) 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 - Pure hyperglyceridemia - Type 1 diabetes mellitus with diabetic chronic kidney disease - Upper abdominal pain, unspecified 05/31/2023 00:25 [facility] [place] TYPE: Emergency COMPLAINT: - ABD PAIN DIAGNOSES: - Allergy status to narcotic agent - Allergy status to penicillin - Allergy status to sulfonamides - Epigastric abdominal tenderness - Essential (primary) hypertension - assisted (current) use of insulin - Other chronic [...] disease, or unspecified chronic kidney disease - ad terminal makeup operator (current) use of insulin - Nausea with vomiting, unspecified - Other longterm (current) 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 - Type 1 diabetes [...] disease, or unspecified chronic kidney disease - assisted (current) use of insulin - Other adjunct faculty for medical terminology (current) drug therapy - Type 2 diabetes mellitus with diabetic chronic kidney disease - Unspecified abdominal pain 04/22/2023 00:27 [facility] [place] TYPE: Emergency COMPLAINT: - ABD PAIN 04/18/2023 17:16 [facility] ([facility]) TYPE: Emergency DIAGNOSES: - Acute pancreatitis [...] disease, or unspecified chronic kidney disease - assisted (current) use of insulin - Right upper [...] penicillin - Allergy status to sulfonamides - assisted (current) use of insulin - Other longterm (current) 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 - Upper abdominal pain, unspecified Plus 25 More Visits INPATIENT VISIT TRACKING [...] (primary) hypertension - Hypo-osmolality and hyponatremia - ad terminal makeup operator (current) use of insulin - Other adjunct faculty for medical terminology (current) drug therapy - Pure hyperglyceridemia - [...] kidney disease - Hypo-osmolality and hyponatremia - ad terminal makeup operator (current) use of insulin - Type [...] disease, unspecified - Hypo-osmolality and hyponatremia - assisted (current) use of insulin - Other adjunct faculty for medical terminology (current) drug therapy - Pure hyperglyceridemia - [...] kidney disease - Hypo-osmolality and hyponatremia - ad terminal makeup operator (current) use of insulin - Other longterm (current) 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 - Type 1 diabetes [...] kidney disease - Hypokalemia - Hypokalemia - assisted (current) use of insulin - assisted (current) use of insulin - Other dental procedure status - Other dental procedure status - Other longterm (current) 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 - Other adjunct faculty for medical terminology (current) drug therapy - Personal history of [...] ear - Unspecified hearing loss, right ear [email or web address]
[2023-07-17 21:48] LABS: PH, VENOUS 7.378 (7.31-7.41)
[2023-07-17 21:51] LABS: EOSINOPHILS 1.9 % (0-6); HEMATOCRIT 28.3 % (35.0-50.0); HEMOGLOBIN 9.3 g/dL (12.0-18.0); LYMPHOCYTES 29.9 % (24-44); MCH 29.6 (27-36); MCHC 32.9 g/dl (30-36); MCV 90.2 fl (81-99); MONOCYTES 6.4 % (0-12); NEUTROPHILS 60.8 % (39-80); PLATELET COUNT 454 K/uL (140-440); RBC 3.14 M/ul (4.3-5.7); RDW 15.1 (10.5-15.0)
[2023-07-17 22:06] LABS: ALBUMIN 3.8 g/dL (3.4-5.0); ALBUMIN/GLOBULIN RATIO 0.88 (1.1-2.4); BILIRUBIN, TOTAL 0.2 ng/dL (0.2-1.0); BUN/CREATININE RATIO 11.39 (6.0-28.6); CREATININE, SERUM 2.72 mg/dL (0.55-1.02); PROTEIN, TOTAL 8.1 g/dL (6.4-8.2)
[2023-07-17 22:42] VITALS: BP 145/101
== END 2023-07-17 22:42 | disposition left against medical advice (07) ==
LOC: ED 20:09
PROVIDERS: Family Medicine
DX: R10.12 Left upper quadrant pain (principal); E11.9 Type 2 diabetes mellitus without complications; E78.5 Hyperlipidemia, unspecified; I12.9 Hypertensive chronic kidney disease with stage 1 through stage 4 chronic kidney disease, or unspecified chronic kidney disease; E11.22 Type 2 diabetes mellitus with diabetic chronic kidney disease; N18.9 Chronic kidney disease, unspecified; Z88.2 Allergy status to sulfonamides; Z88.1 Allergy status to other antibiotic agents; Z88.5 Allergy status to narcotic agent; Z88.0 Allergy status to penicillin; Z79.899 Other long term (current) 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; Z79.4 Long term (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
CPT/HCPCS: 36415; 80053; 81001; 82010; 82803; 83690; 85025; 96374; 96375; 99284-25; J0780; J7030

== ENCOUNTER 2023-07-27 20:13 | Emergency (ER) | payer OTHER ==
[~2023-07-27] VITALS: Ht 149.9 cm; Wt 41.3 kg
--- OUTSIDE RECORDS SUMMARY | 2023-07-27 20:17 | XMS ---
PreManage Notification: MONTSE GUTIERREZ Security Senior Gl Accountant Events 5 event(s) in the past 18 months Most recent security events: Elopement at [facility] 07/17/2023 20:10 - Patient eloped before treatment completed. - Patient with suicidal and/or homicidal ideations eloped. - Patient eloped with IV in place. Details: Patient left AMA Elopement at [facility] 05/30/2023 11:44 - Patient eloped before treatment completed. - Patient with suicidal and/or homicidal ideations eloped. - Patient eloped with IV in place. Details: Patient LWBS Elopement at [facility] 01/03/2023 12:12 - Patient eloped before treatment completed. - Patient with suicidal and/or homicidal ideations eloped. - Patient eloped with IV in place. Details: Patient left AMA CRITERIA MET - 6 ED Visits in 6 Months - Group Notification - [facility] - 2 Visits in 30 Days CARE PROVIDERS JORDEN HAYWOOD Nurse Practitioner: 04/21/2023-Current PHONE: [phone] [facility] 01/22/2021-[facility] PHONE: [phone] SAUL THORPE Physician Sticker Machine Operator 03/19/2019-Current PHONE: Unknown Jef has no Care Guidelines for this patient. Care History Medical/Surgical 09/24/2021 [facility] Contacted Gerri RUDDphotoengraver apprenticeSpively-Ydeojr-wppzrfrz of recent ED visits. They will follow up with the patient. 02/05/2021 [facility] - CHW CALLED AND SPOKE WITH READERS' ADVISORY SERVICE LIBRARIAN WALDEMAR- DISCUSSED RECENT ED VISITS- PRIMARY CARE PHYSICIAN REVIEWED PATIENT RECENT ED VISITS AND DID CONTACT PATIENT-THEY HAVE INSTRUCTED PATIENT TO CONTACT OFFICE MESSENGER HELPER DR HAMMOND TO SCHEDULE AND EARLIER APT IF POSSIBLE. PATIENT HAS TO MAKE THE APT FOR FOLLOW UP THE CLINIC CAN\T\#39;T SCHEDULE THE APT FOR THE PATIENT. - PATIENT HAS AN APT 02/06/[address] CHRISTENSEN. 01/25/2021 [facility] VOIDING TRIAL SCHEDULED WITH DR CHRISTENSEN UROLOGIST 02/06/21 [place] VISIT COUNT (12 MO.) 39 [facility] [address] [place] [address] ([facility]) TOTAL 45 NOTE: Visits indicate total known visits. ED/UCC VISIT TRACKING (12 MO.) 07/27/2023 20:14 [facility] [place] TYPE: Emergency COMPLAINT: - PAINFUL URINATION, R FLANK PAIN, R EYE PAIN 07/17/2023 20:10 [facility] [place] TYPE: Emergency [...] disease - Left upper quadrant pain - Left upper quadrant pain - 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 (current) use of insulin - Other mcc (current) drug therapy - Type 1 diabetes mellitus with diabetic chronic kidney disease - Type 2 diabetes mellitus with diabetic chronic kidney disease - Type 2 diabetes mellitus without complications - Upper abdominal pain, unspecified 07/16/2023 19:24 [facility] [place] TYPE: Emergency [...] or unspecified chronic kidney disease - 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 (current) use of insulin - Other long wall shear operator (current) drug therapy - Type 2 [...] or unspecified chronic kidney disease - 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 (current) use of insulin - Other long wall shear operator (current) drug therapy - Type 2 diabetes mellitus with diabetic chronic kidney disease - Type 2 diabetes mellitus with hyperglycemia 07/09/2023 19:[address] [facility] [place] TYPE: Emergency COMPLAINT: - ABDOMINAL PAIN 07/06/2023 23:30 [facility] [place] TYPE: Emergency COMPLAINT: - CP DIAGNOSES: - Allergy status to narcotic agent - Allergy status to penicillin - Allergy status to sulfonamides - Chest pain on breathing - Essential (primary) hypertension - long term acute care registered nurse (current) use of insulin - Other chest pain - Other mcc (current) drug therapy - Type 2 diabetes mellitus without complications 06/16/2023 04:[address] [facility] [place] TYPE: Emergency COMPLAINT: - ABD PAIN 06/13/2023 00:[address] [place] [address] [facility] LE[facility] ([place]) TYPE: Emergency DIAGNOSES: [...] unspecified chronic kidney disease - long term acute care registered nurse (current) use of insulin - Other long wall shear operator (current) drug therapy - Type 1 [...] disease - Hypo-osmolality and hyponatremia - Other long wall shear operator (current) drug therapy - Pure hyperglyceridemia - [...] or unspecified chronic kidney disease - 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 (current) use of insulin - Other long wall shear operator (current) drug therapy - Pure hyperglyceridemia - Type 1 diabetes mellitus with diabetic chronic kidney disease - Upper abdominal pain, unspecified 05/31/2023 00:25 [facility] [place] TYPE: Emergency COMPLAINT: - ABD PAIN DIAGNOSES: - Allergy status to narcotic agent - Allergy status to penicillin - Allergy status to sulfonamides - Epigastric abdominal tenderness - Essential (primary) hypertension - long term acute care registered nurse (current) use of insulin - Other chronic pain - Other long wall shear operator (current) drug therapy - Type 2 [...] or unspecified chronic kidney disease - 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 (current) use of insulin - Nausea with vomiting, unspecified - Other mcc (current) drug therapy [...] or unspecified chronic kidney disease - 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 (current) use of insulin - Other mcc (current) drug therapy - Type 2 diabetes mellitus with diabetic chronic kidney disease - Unspecified abdominal pain 04/22/2023 00:27 [facility] [place] TYPE: Emergency COMPLAINT: - ABD PAIN 04/18/2023 17:16 [facility] ([facility]) TYPE: Emergency DIAGNOSES: - Acute pancreatitis [...] unspecified chronic kidney disease - long term acute care registered nurse (current) use of insulin - Right upper quadrant pain - Type 1 diabetes mellitus with diabetic chronic kidney disease Plus 25 More Visits INPATIENT VISIT TRACKING [...] (primary) hypertension - Hypo-osmolality and hyponatremia - long term acute care registered nurse (current) use of insulin - Other long wall shear operator (current) drug therapy - Pure hyperglyceridemia - [...] kidney disease - Hypo-osmolality and hyponatremia - long term acute care registered nurse (current) use of insulin - Type 2 [...] disease, unspecified - Hypo-osmolality and hyponatremia - long term acute care registered nurse (current) use of insulin - Other long wall shear operator (current) drug therapy - Pure hyperglyceridemia - [...] kidney disease - Hypo-osmolality and hyponatremia - long term acute care registered nurse (current) use of insulin - Other mcc (current) drug therapy - Type 1 diabetes mellitus with diabetic chronic kidney disease - Type 1 diabetes mellitus with hyperglycemia 04/09/2023 01:31 [facility] [place] [facility] TYPE: Observation COMPLAINT: - HYPEROSMOLAR HYPERGLYCEMIA DIAGNOSES: - Allergy status to narcotic agent - Allergy status to other antibiotic agents - Allergy status to sulfonamides - Type 1 diabetes mellitus with hyperglycemia - Unspecified abdominal pain 01/03/2023 20:28 [facility] [place] [place] TYPE: Observation COMPLAINT: - ACUTE [...] with ketoacidosis without coma 12/08/2022 11:00 [facility] [place]ie [facility] [place] TYPE: Medical Surgical COMPLAINT: - [...] kidney disease - Hypokalemia - Hypokalemia - long term acute care registered nurse (current) use of insulin - 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 (current) use of insulin - Other dental procedure status - Other dental procedure status - Other mcc (current) drug therapy - Other mcc (current) drug therapy - [...] ear - Unspecified hearing loss, right ear [email or web address]
[2023-07-27 20:41] LABS: BILIRUBIN, URINE NEGATIVE (negative); BLOOD/HGB, URINE TRACE-I (Negative); KETONE, URINE NEGATIVE (Negative); LEUK ESTERASE, URINE NEGATIVE (negative); NITRITE, URINE NEGATIVE (negative)
[2023-07-27 20:50] LABS: RED BLOOD CELLS, URINE 21-40 /hpf (0-5)
[2023-07-27 20:51] LABS: EPITHELIAL CELLS, URINE SQUAMOUS 2+ /lpf (0-1+); REFLEX CULTURE, URINE No (No)
[2023-07-27 20:52] LABS: BACTERIA, URINE 1+ /hpf (negative)
[2023-07-27 21:04] LABS: BASOPHILS 0.6 % (0-2); EOSINOPHILS 2.2 % (0-6); HEMOGLOBIN 8.8 g/dL (12.0-18.0); LYMPHOCYTES 28.2 % (24-44); MCH 29.4 (27-36); MCHC 32.6 g/dl (30-36); MCV 90.2 fl (81-99); MONOCYTES 10.8 % (0-12); NEUTROPHILS 58.2 % (39-80); PLATELET COUNT 366 K/uL (140-440); RBC 2.99 M/ul (4.3-5.7); RDW 14.9 (10.5-15.0)
[2023-07-27 21:23] LABS: ALBUMIN 3.5 g/dL (3.4-5.0); ALBUMIN/GLOBULIN RATIO 0.85 (1.1-2.4); BILIRUBIN, TOTAL 0.2 ng/dL (0.2-1.0); BUN/CREATININE RATIO 10.39 (6.0-28.6); CALCIUM 8.7 mg/dL (8.5-10.1); CREATININE, SERUM 2.79 mg/dL (0.55-1.02); PROTEIN, TOTAL 7.6 g/dL (6.4-8.2)
[2023-07-27 23:04] VITALS: BP 148/96
== END 2023-07-27 23:06 | disposition home or self-care (01) ==
LOC: ED 20:13
PROVIDERS: Internal Medicine
DX: H10.9 Unspecified conjunctivitis (principal); R10.9 Unspecified abdominal pain; E10.65 Type 1 diabetes mellitus with hyperglycemia; I10 Essential (primary) hypertension; Z88.2 Allergy status to sulfonamides; Z88.0 Allergy status to penicillin; Z88.1 Allergy status to other antibiotic agents; Z79.4 Long term (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; Z79.899 Other long term (current) 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
CPT/HCPCS: 36415; 74176; 80053; 81001; 84703; 85025; J1815; J7121

== ENCOUNTER 2023-08-12 20:54 | Emergency (ER) | payer OTHER ==
[~2023-08-12] VITALS: Ht 149.9 cm; Wt 40.3 kg
[~2023-08-12 20:54] MED LIST changes: +LINEZOLID600 MG PO
[2023-08-12 22:03] LABS: BILIRUBIN, URINE NEGATIVE (negative); BLOOD/HGB, URINE TRACE-I (Negative); KETONE, URINE TRACE (Negative); LEUK ESTERASE, URINE NEGATIVE (negative); NITRITE, URINE NEGATIVE (negative); PH, URINE 5.5 (5-7)
[2023-08-12 22:11] LABS: EPITHELIAL CELLS, URINE SQUAMOUS 2+ /lpf (0-1+)
[2023-08-12 22:12] LABS: BACTERIA, URINE RARE /hpf (negative); CASTS, URINE NONE SEEN \\lpf; CRYSTALS, URINE NONE SEEN (0-1+); REFLEX CULTURE, URINE No (No)
[2023-08-12 22:22] LABS: BASOPHILS 0.8 % (0-2); EOSINOPHILS 2.4 % (0-6); HEMATOCRIT 23.7 % (35.0-50.0); HEMOGLOBIN 7.8 g/dL (12.0-18.0); LYMPHOCYTES 38.9 % (24-44); MCH 29.1 (27-36); MCHC 32.8 g/dl (30-36); MCV 88.7 fl (81-99); NEUTROPHILS 49.9 % (39-80); PLATELET COUNT 280 K/uL (140-440); RBC 2.67 M/ul (4.3-5.7); RDW 14.2 (10.5-15.0)
--- OUTSIDE RECORDS SUMMARY | 2023-08-12 22:32 | XMS ---
PreManage Notification: MONTSE GUTIERREZ Security Framing Consultant Events 5 event(s) in the past 18 months Most recent security events: Elopement at [facility] 07/17/2023 20:10 - Patient eloped before treatment completed. - Patient with suicidal and/or homicidal ideations eloped. - Patient eloped with IV in place. Details: Patient left AMA Elopement at [facility] 05/30/2023 11:44 - Patient eloped before treatment completed. - Patient with suicidal and/or homicidal ideations eloped. - Patient eloped with IV in place. Details: Patient LWBS Elopement at [facility] 01/03/2023 12:12 - Patient eloped before treatment completed. - Patient with suicidal and/or homicidal ideations eloped. - Patient eloped with IV in place. Details: Patient left AMA CRITERIA MET - 6 ED Visits in 6 Months - Group Notification - [facility] - 2 Visits in 30 Days CARE PROVIDERS JORDEN HAYWOOD Nurse Practitioner: 04/21/2023-Current PHONE: [phone] [facility] 01/22/2021-[facility] PHONE: [phone] SAUL THORPE Physician Process Controller 03/19/2019-Current PHONE: Unknown Jef has no Care Guidelines for this patient. Care History Medical/Surgical 09/24/2021 [facility] Contacted Gerri RUDDsolvent plant operatorZsipzyw-Hgdddx-utogofiu of recent ED visits. They will follow up with the patient. 02/05/2021 [facility] - CHW CALLED AND SPOKE WITH SWIM COACH WALDEMAR- DISCUSSED RECENT ED VISITS- PRIMARY CARE PHYSICIAN REVIEWED PATIENT RECENT ED VISITS AND DID CONTACT PATIENT-THEY HAVE INSTRUCTED PATIENT TO CONTACT LIFE COACH DR HAMMOND TO SCHEDULE AND EARLIER APT IF POSSIBLE. PATIENT HAS TO MAKE THE APT FOR FOLLOW UP THE CLINIC CAN\T\#39;T SCHEDULE THE APT FOR THE PATIENT. - PATIENT HAS AN APT 02/06/[address] CHRISTENSEN. 01/25/2021 [facility] VOIDING TRIAL SCHEDULED WITH DR CHRISTENSEN UROLOGIST 02/06/21 [place] VISIT COUNT (12 MO.) 39 [address] ([place] [place] [address] ([facility]) TOTAL 44 NOTE: Visits indicate total known visits. ED/UCC VISIT TRACKING (12 MO.) 08/12/2023 20:54 [facility] [place] TYPE: Emergency COMPLAINT: - FLANK PAIN 08/07/2023 09:07 [facility] [place] TYPE: Emergency COMPLAINT: - ABD PAIN 07/29/2023 14:03 [facility] [place] TYPE: Emergency COMPLAINT: - R EYE SWOLLEN/PAIN 07/27/2023 20:14 [facility] [place] TYPE: Emergency COMPLAINT: - PAINFUL URINATION, R FLANK PAIN, R EYE PAIN DIAGNOSES: - Allergy status to other antibiotic agents - Allergy status to penicillin - Allergy status to sulfonamides - Essential (primary) hypertension - longterm (current) use of insulin - Other prison (current) drug therapy - Type 1 diabetes mellitus with hyperglycemia - Unspecified abdominal pain - Unspecified conjunctivitis 07/17/2023 20:10 [facility] [place] TYPE: Emergency [...] pain - Left upper quadrant pain - termite treater (current) use of insulin - Other prison [...] longterm (current) use of insulin - Other prison [...] longterm (current) use of insulin - Other prison [...] on breathing - Essential (primary) hypertension - termite treater (current) use of insulin - Other chest pain - Other prison (current) drug therapy - Type 2 diabetes mellitus without complications 06/16/2023 04:45 [facility] [place] TYPE: Emergency COMPLAINT: - ABD PAIN [facility]13[facility]2023 [facility]: Emergency DIAGNOSES: - [...] disease, or unspecified chronic kidney disease - termite treater (current) use of insulin - Other 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 designer (current) drug therapy - Type 1 diabetes [...] longterm (current) use of insulin - Other 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 designer (current) drug therapy - Pure hyperglyceridemia - Type 1 diabetes mellitus with diabetic chronic kidney disease - Upper abdominal pain, unspecified 05/31/2023 00:25 [facility] [place] TYPE: Emergency COMPLAINT: - ABD PAIN DIAGNOSES: - Allergy status to narcotic agent - Allergy status to penicillin - Allergy status to sulfonamides - Epigastric abdominal tenderness - Essential (primary) hypertension - longterm (current) use of insulin - Other chronic [...] - Nausea with vomiting, unspecified - Other prison (current) drug therapy - [...] disease, or unspecified chronic kidney disease - termite treater (current) use of insulin - Other prison (current) drug therapy - Type 2 diabetes mellitus with diabetic chronic kidney disease - Unspecified abdominal pain 04/22/2023 00:27 [facility] [place] TYPE: Emergency COMPLAINT: - ABD PAIN Plus 24 More Visits INPATIENT VISIT TRACKING (12 MO.) 08/07/2023 09:08 [facility] [place] TYPE: Observation COMPLAINT: - PANCREATITIS DIAGNOSES: - Acidosis, unspecified - Acute pancreatitis without necrosis or infection, unspecified - Allergy status to other antibiotic agents - Allergy status to sulfonamides - termite treater (current) use of insulin - Other specified disorders of brain - Type 2 diabetes mellitus without complications 07/30/2023 14:39 [facility] [place] TYPE: Critical Care COMPLAINT: - LACTIC ACIDOSIS, HYPERGLYCEMIA DIAGNOSES: - Acidosis, unspecified - Acquired absence of other specified parts of digestive tract - Acute kidney failure, unspecified - Allergy status to other antibiotic agents - Allergy status to other drugs, medicaments and biological substances - Allergy status to penicillin - Allergy status to sulfonamides - Cellulitis of right lower limb - Chronic kidney disease, unspecified - Disorder of brain, unspecified - Encounter for screening for COVID-19 - Hyperlipidemia, unspecified - longterm (current) use of insulin - termite treater (current) use of opiate analgesic - Other 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 designer (current) drug therapy - Other specified postprocedural states - Periorbital cellulitis - Personal history of leukemia - Personal history of Methicillin resistant Staphylococcus aureus infection - Personal history of other diseases of the digestive system - Type 1 diabetes mellitus with diabetic chronic kidney disease - Type 1 diabetes mellitus with hyperglycemia - Type 2 diabetes mellitus with diabetic chronic kidney disease - Type 2 diabetes mellitus with hyperglycemia - Unspecified hearing loss, right ear - Urinary tract infection, site not specified 07/09/2023 19:05 [facility] [place] TYPE: Observation [...] longterm (current) use of insulin - Other 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 designer (current) drug therapy - Pure hyperglyceridemia - [...] disease, unspecified - Hypo-osmolality and hyponatremia - termite treater (current) use of insulin - Other 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 designer (current) drug therapy - Pure hyperglyceridemia - [...] longterm (current) use of insulin - Other prison [...] kidney disease - Hypokalemia - Hypokalemia - termite treater (current) use of insulin - longterm (current) use of insulin - Other dental procedure status - Other dental procedure status - Other prison (current) drug therapy - Other 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 designer (current) drug therapy - Personal history of [...] ear - Unspecified hearing loss, right ear [email or web address]
[2023-08-12 22:38] LABS: ALBUMIN 2.4 g/dL (3.4-5.0); ALBUMIN/GLOBULIN RATIO 0.46 (1.1-2.4); ANION GAP 18.5 (7-21); BILIRUBIN, TOTAL 0.2 ng/dL (0.2-1.0); BUN/CREATININE RATIO 10.62 (6.0-28.6); CALCIUM 8.6 mg/dL (8.5-10.1); CREATININE, SERUM 2.73 mg/dL (0.55-1.02); POTASSIUM 4.5 mmol/L (3.5-5.1); PROTEIN, TOTAL 7.6 g/dL (6.4-8.2)
[2023-08-12 23:54] VITALS: BP 141/96
== END 2023-08-12 23:55 | disposition home or self-care (01) ==
LOC: ED 20:54
PROVIDERS: Emergency Medicine
DX: R10.9 Unspecified abdominal pain (principal); E10.65 Type 1 diabetes mellitus with hyperglycemia; E10.22 Type 1 diabetes mellitus with diabetic chronic kidney disease; I12.9 Hypertensive chronic kidney disease with stage 1 through stage 4 chronic kidney disease, or unspecified chronic kidney disease; N18.9 Chronic kidney disease, unspecified; Z79.899 Other long term (current) 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; Z88.0 Allergy status to penicillin; Z88.1 Allergy status to other antibiotic agents; Z88.2 Allergy status to sulfonamides; Z88.5 Allergy status to narcotic agent; Z88.8 Allergy status to other drugs, medicaments and biological substances
CPT/HCPCS: 36415; 80053; 81001; 82010; 82800; 83690; 84703; 85025; J1200; J1815; J1885; J2405; J7030

== ENCOUNTER 2023-08-16 21:11 | Emergency (ER) | payer OTHER ==
[~2023-08-16] VITALS: Ht 149.9 cm; Wt 40.0 kg
--- OUTSIDE RECORDS SUMMARY | 2023-08-16 21:13 | XMS ---
PreManage Notification: MONTSE GUTIERREZ Security Card Folder Events 5 event(s) in the past 18 months Most recent security events: Elopement at [facility] 07/17/2023 20:10 - Patient eloped before treatment completed. - Patient with suicidal and/or homicidal ideations eloped. - Patient eloped with IV in place. Details: Patient left AMA Elopement at [facility] 05/30/2023 11:44 - Patient eloped before treatment completed. - Patient with suicidal and/or homicidal ideations eloped. - Patient eloped with IV in place. Details: Patient LWBS Elopement at [facility] 01/03/2023 12:12 - Patient eloped before treatment completed. - Patient with suicidal and/or homicidal ideations eloped. - Patient eloped with IV in place. Details: Patient left AMA CRITERIA MET - 6 ED Visits in 6 Months - Group Notification - [facility] - 2 Visits in 30 Days CARE PROVIDERS JORDEN HAYWOOD Nurse Practitioner: 04/21/2023-Current PHONE: [phone] [facility] 01/22/2021-[facility] PHONE: [phone] SAUL THORPE Physician Motorized Squad Captain 03/19/2019-Current PHONE: Unknown Jef has no Care Guidelines for this patient. Care History Medical/Surgical 09/24/2021 [facility] Contacted Gerri RUDDmail handlerPsgnglu-Hlrxpj-ewespcif of recent ED visits. They will follow up with the patient. 02/05/2021 [facility] - CHW CALLED AND SPOKE WITH RESEARCH HYDRAULIC ENGINEER WALDEMAR- DISCUSSED RECENT ED VISITS- PRIMARY CARE PHYSICIAN REVIEWED PATIENT RECENT ED VISITS AND DID CONTACT PATIENT-THEY HAVE INSTRUCTED PATIENT TO CONTACT CONFECTIONERY LABORATORY MANAGER DR HAMMOND TO SCHEDULE AND EARLIER APT IF POSSIBLE. PATIENT HAS TO MAKE THE APT FOR FOLLOW UP THE CLINIC CAN\T\#39;T SCHEDULE THE APT FOR THE PATIENT. - PATIENT HAS AN APT 02/06/[address] CHRISTENSEN. 01/25/2021 [facility] VOIDING TRIAL SCHEDULED WITH DR CHRISTENSEN UROLOGIST 02/06/21 [place] VISIT COUNT (12 MO.) [address] ([place] [place] [address] ([facility]) TOTAL 45 NOTE: Visits indicate total known visits. ED/UCC VISIT TRACKING (12 MO.) 08/16/2023 21:11 [facility] [place] TYPE: Emergency COMPLAINT: - EYE PAIN 08/12/2023 20:54 [facility] [place] TYPE: Emergency [...] or unspecified chronic kidney disease - Other supervisor 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s (current) drug therapy - Type 1 diabetes mellitus with diabetic chronic kidney disease - Type 1 diabetes mellitus with hyperglycemia - Unspecified abdominal pain 08/07/2023 09:07 [facility] [place] TYPE: Emergency COMPLAINT: - ABD PAIN 07/29/2023 14:03 [facility] [place] TYPE: Emergency COMPLAINT: - R EYE SWOLLEN/PAIN 07/27/2023 20:14 [facility] [place] TYPE: Emergency COMPLAINT: - PAINFUL URINATION, R FLANK PAIN, R EYE PAIN DIAGNOSES: - Allergy status to other antibiotic agents - Allergy status to penicillin - Allergy status to sulfonamides - Essential (primary) hypertension - halfway (current) use of insulin - Other nursing home (current) drug therapy - Type 1 [...] pain - Left upper quadrant pain - director long term care (current) use of insulin - Other nursing home (current) drug therapy - Type 1 [...] halfway (current) use of insulin - Other supervisor 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s (current) drug therapy - Type 2 diabetes [...] halfway (current) use of insulin - Other nursing home (current) drug therapy - Type 2 [...] on breathing - Essential (primary) hypertension - director long term care (current) use of insulin - Other chest pain - Other supervisor 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s (current) drug therapy - Type 2 diabetes mellitus without complications 06/16/2023 04:45 [facility] [place] TYPE: Emergency COMPLAINT: - [facility]BD [facility] DIAGNOSES: - Other chronic pain - Other chronic pancreatitis - Persons encountering health services in other specified circumstances - Type 1 diabetes mellitus with hyperglycemia - Unspecified abdominal pain - abd pain 06/10/2023 19:17 [facility] TYPE: Emergency COMPLAINT: - ABD [...] disease, or unspecified chronic kidney disease - director long term care (current) use of insulin - Other supervisor 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s (current) drug therapy - Type 1 diabetes [...] disease - Hypo-osmolality and hyponatremia - Other supervisor 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s (current) drug therapy - Pure hyperglyceridemia - [...] disease, or unspecified chronic kidney disease - director long term care (current) use of insulin - Other nursing home (current) drug therapy - Pure hyperglyceridemia - Type 1 diabetes mellitus with diabetic chronic kidney disease - Upper abdominal pain, unspecified 05/31/2023 00:25 [facility] [place] TYPE: Emergency COMPLAINT: - ABD PAIN DIAGNOSES: - Allergy status to narcotic agent - Allergy status to penicillin - Allergy status to sulfonamides - Epigastric abdominal tenderness - Essential (primary) hypertension - director long term care (current) use of insulin - Other chronic pain - Other nursing home (current) drug therapy - Type 2 [...] - halfway (current) use of insulin - Nausea with vomiting, unspecified - Other supervisor 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s (current) drug therapy - Type 1 diabetes [...] halfway (current) use of insulin - Other nursing home (current) drug therapy - Type 2 diabetes mellitus with diabetic chronic kidney disease - Unspecified abdominal pain Plus 25 More Visits INPATIENT VISIT TRACKING (12 MO.) 08/07/2023 09:08 [facility] [place] TYPE: Observation COMPLAINT: - PANCREATITIS DIAGNOSES: - Acidosis, unspecified - Acute pancreatitis without necrosis or infection, unspecified - Allergy status to other antibiotic agents - Allergy status to sulfonamides - halfway (current) use of insulin - Other specified [...] screening for COVID-19 - Hyperlipidemia, unspecified - director long term care (current) use of insulin - director long term care (current) use of opiate analgesic - Other supervisor 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s (current) drug therapy - Other specified postprocedural [...] (primary) hypertension - Hypo-osmolality and hyponatremia - halfway (current) use of insulin - Other nursing home (current) drug therapy - Pure hyperglyceridemia - [...] kidney disease - Hypo-osmolality and hyponatremia - director long term care (current) use of insulin - Type 2 [...] disease, unspecified - Hypo-osmolality and hyponatremia - halfway (current) use of insulin - Other supervisor 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s (current) drug therapy - Pure hyperglyceridemia - [...] kidney disease - Hypo-osmolality and hyponatremia - director long term care (current) use of insulin - Other supervisor 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s (current) drug therapy - Type 1 diabetes mellitus with diabetic chronic kidney disease - Type 1 diabetes mellitus with hyperglycemia 04/09/2023 01:31 [facility] [place] TYPE: Observation COMPLAINT: - HYPEROSMOLAR [...] with ketoacidosis without coma 12/08/2022 11:00 [facility] Torresgabe LudwigOrlando [place] TYPE: Medical Surgical COMPLAINT: - [...] kidney disease - Hypokalemia - Hypokalemia - halfway (current) use of insulin - director long term care (current) use of insulin - Other dental procedure status - Other dental procedure status - Other nursing home (current) drug therapy - Other supervisor 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s (current) drug therapy - Personal history of [...] ear - Unspecified hearing loss, right ear [email or web address]
[2023-08-16 23:19] LABS: BASOPHILS 0.5 % (0-2); EOSINOPHILS 0.9 % (0-6); HEMATOCRIT 25.4 % (35.0-50.0); HEMOGLOBIN 8.3 g/dL (12.0-18.0); LYMPHOCYTES 15.5 % (24-44); MCH 28.9 (27-36); MCHC 32.5 g/dl (30-36); MCV 88.9 fl (81-99); NEUTROPHILS 75.1 % (39-80); PLATELET COUNT 365 K/uL (140-440); RBC 2.86 M/ul (4.3-5.7); RDW 15.2 (10.5-15.0)
[2023-08-16 23:34] LABS: ALBUMIN 3.5 g/dL (3.4-5.0); ALBUMIN/GLOBULIN RATIO 0.9 (1.1-2.4); ANION GAP 17.8 (7-21); BILIRUBIN, TOTAL 0.2 ng/dL (0.2-1.0); BUN/CREATININE RATIO 21.37 (6.0-28.6); CALCIUM 8.2 mg/dL (8.5-10.1); CREATININE, SERUM 1.31 mg/dL (0.55-1.02); POTASSIUM 4.8 mmol/L (3.5-5.1); PROTEIN, TOTAL 7.4 g/dL (6.4-8.2)
[2023-08-17 00:43] VITALS: BP 137/98
--- NOTE | 2023-08-17 22:53 | EKG ---
[facility] [address] [place] [address] Signed Sinus tachycardia Inferior infarct , age undetermined Abnormal ECG When compared with ECG of 11-JUL-2023 17:52, No significant change was found Confirmed by Sabino Simmons MD () on 08/17/2023 10:53:37 PM Electronically Signed By: SABINO SIMMONS MD 08/17/232252 PATIENT NAME: MONTSE GUTIERREZ Electrocardiogram DATE OF : 89 PHYSICIAN: SABINO SIMMONS MD REPORT #: [id number] REPORT IS CONFIDENTIAL AND NOT TO BE RELEASED WITHOUT AUTHORIZATION
== END 2023-08-17 00:43 | disposition home or self-care (01) ==
LOC: ED 21:11
PROVIDERS: Family Medicine
DX: H00.013 Hordeolum externum right eye, unspecified eyelid (principal); H10.9 Unspecified conjunctivitis; R07.89 Other chest pain; E11.22 Type 2 diabetes mellitus with diabetic chronic kidney disease; I12.9 Hypertensive chronic kidney disease with stage 1 through stage 4 chronic kidney disease, or unspecified chronic kidney disease; N18.9 Chronic kidney disease, unspecified; Z88.2 Allergy status to sulfonamides; Z88.0 Allergy status to penicillin; Z88.5 Allergy status to narcotic agent; Z79.4 Long term (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
CPT/HCPCS: 36415; 71045; 80053; 84484; 85025; 93005; 93010; J1815; Q0177

== ENCOUNTER 2023-08-21 21:58 | Emergency (ER) | payer OTHER ==
[~2023-08-21] VITALS: Ht 149.9 cm; Wt 39.9 kg
--- OUTSIDE RECORDS SUMMARY | 2023-08-21 22:05 | XMS ---
PreManage Notification: MONTSE GUTIERREZ Security Cue Selector Events 5 event(s) in the past 18 months Most recent security events: Elopement at [facility] 07/17/2023 20:10 - Patient eloped before treatment completed. - Patient with suicidal and/or homicidal ideations eloped. - Patient eloped with IV in place. Details: Patient left AMA Elopement at [facility] 05/30/2023 11:44 - Patient eloped before treatment completed. - Patient with suicidal and/or homicidal ideations eloped. - Patient eloped with IV in place. Details: Patient LWBS Elopement at [facility] 01/03/2023 12:12 - Patient eloped before treatment completed. - Patient with suicidal and/or homicidal ideations eloped. - Patient eloped with IV in place. Details: Patient left AMA CRITERIA MET - 6 ED Visits in 6 Months - Group Notification [facility] - 2 Visits in 30 Days CARE PROVIDERS JORDEN HAYWOOD Nurse Practitioner: 04/21/2023-[facility] PHONE: [phone] [facility] 01/22/2021-[facility] PHONE: [phone] SAUL THORPE Physician Boat Captain 03/19/2019-Current PHONE: Unknown Jef has no Care Guidelines for this patient. Care History Medical/Surgical 09/24/2021 [facility] Contacted Gerri terrazzo layer helperKmzbuyg-Tygbcj-aoyuinli of recent ED visits. They will follow up with the patient. 02/05/2021 [facility] - W CALLED AND SPOKE WITH CASH GRAIN GROWER WALDEMAR- DISCUSSED RECENT ED VISITS- PRIMARY CARE PHYSICIAN REVIEWED PATIENT RECENT ED VISITS AND DID CONTACT PATIENT-THEY HAVE INSTRUCTED PATIENT TO CONTACT JUNIOR AUTOMATION ENGINEER DR HAMMOND TO SCHEDULE AND EARLIER APT IF POSSIBLE. PATIENT HAS TO MAKE THE APT FOR FOLLOW UP THE CLINIC CAN\T\#39;T SCHEDULE THE APT FOR THE PATIENT. - PATIENT HAS AN APT 02/06/[address] CHRISTENSEN. 01/25/2021 [facility] VOIDING TRIAL SCHEDULED WITH DR CHRISTENSEN UROLOGIST 02/06/21 [place] VISIT COUNT (12 MO.) 40 [facility] [address] [place] [address] ([facility]) TOTAL 45 NOTE: Visits indicate total known visits. ED/UCC VISIT TRACKING (12 MO.) 08/21/2023 21:58 [facility] [place] TYPE: Emergency COMPLAINT: - URINE PROBLEM 08/16/2023 21:11 [facility] [place] TYPE: Emergency COMPLAINT: - EYE PAIN DIAGNOSES: - Allergy status to narcotic agent - Allergy status to penicillin - Allergy status to sulfonamides - Chronic kidney disease, unspecified - Hordeolum externum right eye, unspecified eyelid - Hypertensive chronic kidney disease with stage 1 through stage 4 chronic kidney disease, or unspecified chronic kidney disease - terminal operations supervisor (current) use of insulin - Other chest pain - Type 2 diabetes mellitus with diabetic chronic kidney disease - Unspecified conjunctivitis - Unspecified disorder of eyelid 08/12/2023 20:54 [facility] [place] TYPE: Emergency [...] or unspecified chronic kidney disease - Other fdc (current) drug therapy - Type 1 diabetes [...] to sulfonamides - Essential (primary) hypertension - snf (current) use of insulin - Other fdc (current) drug therapy - Type 1 diabetes [...] pain - Left upper quadrant pain - terminal operations supervisor (current) use of insulin - Other fdc (current) drug therapy - Type 1 diabetes [...] snf (current) use of insulin - Other fdc (current) drug therapy - Type 2 diabetes [...] of insulin - Other long term care administrator (current) drug therapy - Type 2 diabetes [...] breathing - Essential (primary) hypertension - terminal operations supervisor (current) use of insulin - Other chest pain - Other fdc (current) drug therapy - Type 2 diabetes mellitus without complications 06/16/2023 04:45 [facility] [place] TYPE: Emergency COMPLAINT: - ABD PAIN 06/13/2023 00:19 [facility] LEÓN ([place]) TYPE: Emergency DIAGNOSES: - Other chronic pain [...] of insulin - Other long term care administrator (current) drug therapy - Type 1 diabetes [...] - Hypo-osmolality and hyponatremia - Other long term care administrator (current) drug therapy - Pure hyperglyceridemia - [...] supervisor (current) use of insulin - Other fdc (current) drug therapy - Pure hyperglyceridemia - Type 1 diabetes mellitus with diabetic chronic kidney disease - Upper abdominal pain, unspecified 05/31/2023 00:25 [facility] [place] TYPE: Emergency COMPLAINT: - ABD PAIN DIAGNOSES: - Allergy status to narcotic agent - Allergy status to penicillin - Allergy status to sulfonamides - Epigastric abdominal tenderness - Essential (primary) hypertension - terminal operations supervisor (current) use of insulin - Other chronic pain - Other fdc (current) drug therapy - Type 2 diabetes [...] supervisor (current) use of insulin - Nausea with vomiting, unspecified - Other fdc (current) drug therapy - Type 1 diabetes mellitus with diabetic chronic kidney disease - Type 1 diabetes mellitus with hyperglycemia Plus 25 More Visits INPATIENT VISIT TRACKING (12 MO.) 08/07/2023 09:08 [facility] [place] TYPE: Observation COMPLAINT: - PANCREATITIS DIAGNOSES: - Acidosis, unspecified - Acute pancreatitis without necrosis or infection, unspecified - Allergy status to other antibiotic agents - Allergy status to sulfonamides - terminal operations supervisor (current) use of insulin - Other specified [...] screening for COVID-19 - Hyperlipidemia, unspecified - terminal operations supervisor (current) use of insulin - snf (current) use of opiate analgesic - Other fdc (current) drug therapy - Other specified postprocedural [...] (primary) hypertension - Hypo-osmolality and hyponatremia - terminal operations supervisor (current) use of insulin - Other long term care administrator (current) drug therapy - Pure hyperglyceridemia - [...] kidney disease - Hypo-osmolality and hyponatremia - snf (current) use of insulin - [...] disease, unspecified - Hypo-osmolality and hyponatremia - terminal operations supervisor (current) use of insulin - Other long term care administrator (current) drug therapy - Pure hyperglyceridemia - [...] disease - Hypo-osmolality and hyponatremia - terminal operations supervisor (current) use of insulin - Other long term care administrator (current) drug therapy - Type 1 diabetes [...] - Unspecified abdominal pain 01/03/2023 20:28 [facility] [place]ie [place] TYPE: Observation COMPLAINT: - ACUTE [...] disease - Hypokalemia - Hypokalemia - terminal operations supervisor (current) use of insulin - terminal operations supervisor (current) use of insulin - Other dental procedure status - Other dental procedure status - Other long term care administrator (current) drug therapy - Other fdc (current) drug therapy - Personal history of [...] ear - Unspecified hearing loss, right ear [email or web address]
[2023-08-21 22:51] LABS: BILIRUBIN, URINE NEGATIVE (negative); BLOOD/HGB, URINE TRACE-I (Negative); KETONE, URINE NEGATIVE (Negative); LEUK ESTERASE, URINE NEGATIVE (negative); NITRITE, URINE NEGATIVE (negative); PH, URINE 5.5 (5-7)
[2023-08-21 22:57] LABS: EPITHELIAL CELLS, URINE SQUAMOUS 3+ /lpf (0-1+)
[2023-08-21 22:58] LABS: BACTERIA, URINE RARE /hpf (negative); CRYSTALS, URINE NONE SEEN (0-1+); WHITE BLOOD CELLS, URINE 0-1 /HPF (0-5)
[2023-08-21 22:59] LABS: CASTS, URINE NONE SEEN \\lpf; REFLEX CULTURE, URINE No (No)
[2023-08-21 23:32] LABS: BASOPHILS 0.3 % (0-2); EOSINOPHILS 0.9 % (0-6); HEMATOCRIT 25.6 % (35.0-50.0); HEMOGLOBIN 8.2 g/dL (12.0-18.0); LYMPHOCYTES 33.3 % (24-44); MCHC 31.9 g/dl (30-36); MCV 90.7 fl (81-99); MONOCYTES 11.4 % (0-12); NEUTROPHILS 54.1 % (39-80); PLATELET COUNT 367 K/uL (140-440); RBC 2.82 M/ul (4.3-5.7); RDW 15.6 (10.5-15.0)
[2023-08-21 23:45] LABS: ALBUMIN 3.6 g/dL (3.4-5.0); ALBUMIN/GLOBULIN RATIO 0.9 (1.1-2.4); ANION GAP 16.2 (7-21); BILIRUBIN, TOTAL 0.3 ng/dL (0.2-1.0); BUN/CREATININE RATIO 10.83 (6.0-28.6); CALCIUM 8.2 mg/dL (8.5-10.1); CREATININE, SERUM 2.4 mg/dL (0.55-1.02); POTASSIUM 4.2 mmol/L (3.5-5.1); PROTEIN, TOTAL 7.6 g/dL (6.4-8.2)
[2023-08-22 01:15] VITALS: BP 144/92
[2023-08-23] MEDS ORDERED: DIFLUCAN100 MG PO (15:57)
== END 2023-08-22 01:16 | disposition home or self-care (01) ==
LOC: ED 21:58
PROVIDERS: Family Medicine
DX: B37.49 Other urogenital candidiasis (principal); E11.9 Type 2 diabetes mellitus without complications; I10 Essential (primary) hypertension; Z88.0 Allergy status to penicillin; Z88.2 Allergy status to sulfonamides; Z88.1 Allergy status to other antibiotic agents; Z88.5 Allergy status to narcotic agent; Z79.4 Long term (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; Z79.899 Other long term (current) 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
CPT/HCPCS: 36415; 80053; 81001; 85025; 99283; A9270

== ENCOUNTER 2023-08-23 13:18 | Emergency (ER) | payer OTHER ==
[~2023-08-23] VITALS: Ht 149.9 cm; Wt 37.6 kg
--- OUTSIDE RECORDS SUMMARY | 2023-08-23 13:26 | XMS ---
PreManage Notification: MONTSE GUTIERREZ Security Adobe Flex Developer Events 5 event(s) in the past 18 months Most recent security events: Elopement at [facility] 07/17/2023 20:10 - Patient eloped before treatment completed. - Patient with suicidal and/or homicidal ideations eloped. - Patient eloped with IV in place. Details: Patient left AMA Elopement at [facility] 05/30/2023 11:44 - Patient eloped before treatment completed. - Patient with suicidal and/or homicidal ideations eloped. - Patient eloped with IV in place. Details: Patient LWBS Elopement at [facility] 01/03/2023 12:12 - Patient eloped before treatment completed. - Patient with suicidal and/or homicidal ideations eloped. - Patient eloped with IV in place. Details: Patient left AMA CRITERIA MET - 6 ED Visits in 6 Months - Group Notification [facility] - 2 Visits in 30 Days CARE PROVIDERS JORDEN HAYWOOD Nurse Practitioner: 04/21/2023-[facility] PHONE: [phone] [facility] 01/22/2021-[facility] PHONE: [phone] SAUL THORPE Physician Wharf Tender 03/19/2019-Current PHONE: Unknown Jef has no Care Guidelines for this patient. Care History Medical/Surgical 09/24/2021 [facility] Contacted Gerri pleat taperHjilutn-Clyrog-ykvtgwwm of recent ED visits. They will follow up with the patient. 02/05/2021 [facility] - W CALLED AND SPOKE WITH RAINBOW TROUT FARM MANAGER WALDEMAR- DISCUSSED RECENT ED VISITS- PRIMARY CARE PHYSICIAN REVIEWED PATIENT RECENT ED VISITS AND DID CONTACT PATIENT-THEY HAVE INSTRUCTED PATIENT TO CONTACT PHILATELIC CONSULTANT DR HAMMOND TO SCHEDULE AND EARLIER APT IF POSSIBLE. PATIENT HAS TO MAKE THE APT FOR FOLLOW UP THE CLINIC CAN\T\#39;T SCHEDULE THE APT FOR THE PATIENT. - PATIENT HAS AN APT 02/06/[address] CHRISTENSEN. 01/25/2021 [facility] VOIDING TRIAL SCHEDULED WITH DR CHRISTENSEN UROLOGIST 02/06/21 [place] VISIT COUNT (12 MO.) 41 [facility] [address] [place] [address] ([facility] TOTAL 46 NOTE: Visits indicate total known visits. ED/UCC VISIT TRACKING (12 MO.) 08/23/2023 13:19 [facility] [place] TYPE: Emergency COMPLAINT: - VAGINAL PROBLEMS 08/21/2023 21:[address] [facility] [address] [place] TYPE: Emergency COMPLAINT: - URINE PROBLEM 08/16/2023 21:11 [facility] [address] [facility] [place] TYPE: Emergency COMPLAINT: - EYE PAIN DIAGNOSES: - Allergy status to narcotic agent - Allergy status to penicillin - Allergy status to sulfonamides - Chronic kidney disease, unspecified - Hordeolum externum right eye, unspecified eyelid - Hypertensive chronic kidney disease with stage 1 through stage 4 chronic kidney disease, or unspecified chronic kidney disease - senior living (current) [...] or unspecified chronic kidney disease - Other roasterman (current) drug therapy - Type 1 diabetes [...] to sulfonamides - Essential (primary) hypertension - 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 manager (current) use of insulin - Other half-way (current) drug therapy - Type 1 diabetes [...] - Left upper quadrant pain - 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 manager (current) use of insulin - Other roasterman (current) drug therapy - Type 1 diabetes [...] disease, or unspecified chronic kidney disease - senior living (current) use of insulin - Other roasterman (current) drug therapy - Type 2 diabetes [...] or unspecified chronic kidney disease - 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 manager (current) use of insulin - Other roasterman (current) drug therapy - Type 2 diabetes mellitus with diabetic chronic kidney disease - Type 2 diabetes mellitus with hyperglycemia 07/09/2023 19:04 [facility] [address] [facility] LudwigOrlando [place] TYPE: Emergency COMPLAINT: - ABDOMINAL PAIN 07/06/2023 23:30 [facility] [address] LudwigOr[place] TYPE: Emergency COMPLAINT: - CP DIAGNOSES: - Allergy status to narcotic agent - Allergy status to penicillin - Allergy status to sulfonamides - Chest pain on breathing - Essential (primary) hypertension - senior living (current) use of insulin - Other chest pain - Other roasterman (current) drug therapy - Type 2 diabetes mellitus without complications 06/16/2023 04:45 [facility] [place] HOrlando [place] TYPE: Emergency COMPLAINT: - ABD PAIN 06/13/2023 00:19 [facility] Nita Lewis) TYPE: Emergency DIAGNOSES: - Other chronic [...] disease, or unspecified chronic kidney disease - senior living (current) use of insulin - Other half-way (current) drug therapy - Type 1 diabetes [...] disease - Hypo-osmolality and hyponatremia - Other roasterman (current) drug therapy - Pure hyperglyceridemia - [...] disease, or unspecified chronic kidney disease - senior living (current) use of insulin - Other roasterman (current) drug therapy - Pure hyperglyceridemia - Type 1 diabetes mellitus with diabetic chronic kidney disease - Upper abdominal pain, unspecified 05/31/2023 00:25 [facility] [place] TYPE: Emergency COMPLAINT: - ABD PAIN DIAGNOSES: - Allergy status to narcotic agent - Allergy status to penicillin - Allergy status to sulfonamides - Epigastric abdominal tenderness - Essential (primary) hypertension - 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 manager (current) use of insulin - Other chronic pain - Other roasterman (current) drug therapy - Type 2 diabetes mellitus without complications - Upper abdominal pain, unspecified 05/30/2023 11:44 [facility] [place] TYPE: Emergency COMPLAINT: - ABD PAIN, NAUSEA DIAGNOSES: - Nausea - Procedure and treatment not carried out because of patient's decision for other reasons - Unspecified abdominal pain Plus 26 More Visits INPATIENT VISIT TRACKING (12 MO.) 08/07/2023 09:08 [facility] [place] TYPE: Observation COMPLAINT: - PANCREATITIS DIAGNOSES: - Acidosis, unspecified - Acute pancreatitis without necrosis or infection, unspecified - Allergy status to other antibiotic agents - Allergy status to sulfonamides - 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 manager (current) use of insulin - Other specified [...] screening for COVID-19 - Hyperlipidemia, unspecified - senior living (current) use of insulin - 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 manager (current) use of opiate analgesic - Other half-way (current) drug therapy - Other specified postprocedural [...] (primary) hypertension - Hypo-osmolality and hyponatremia - 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 manager (current) use of insulin - Other roasterman (current) drug therapy - Pure hyperglyceridemia - [...] kidney disease - Hypo-osmolality and hyponatremia - 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 manager (current) use of insulin - Type [...] disease, unspecified - Hypo-osmolality and hyponatremia - 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 manager (current) use of insulin - Other roasterman (current) drug therapy - Pure hyperglyceridemia - [...] kidney disease - Hypo-osmolality and hyponatremia - senior living (current) use of insulin - Other roasterman (current) drug therapy - Type 1 diabetes [...] kidney disease - Hypokalemia - Hypokalemia - senior living (current) use of insulin - 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 manager (current) use of insulin - Other dental procedure status - Other dental procedure status - Other half-way (current) drug therapy - Other half-way (current) drug therapy - Personal history of [...] ear - Unspecified hearing loss, right ear [email or web address]
[2023-08-23 14:57] LABS: BILIRUBIN, URINE NEGATIVE (negative); BLOOD/HGB, URINE SMALL (Negative); KETONE, URINE SMALL (Negative); LEUK ESTERASE, URINE NEGATIVE (negative); NITRITE, URINE NEGATIVE (negative)
[2023-08-23 15:05] LABS: CASTS, URINE GRANULAR 2+ \\lpf; EPITHELIAL CELLS, URINE SQUAMOUS 3+ /lpf (0-1+); REFLEX CULTURE, URINE No (No)
[2023-08-23 15:06] LABS: BACTERIA, URINE RARE /hpf (negative)
[2023-08-23] MEDS ORDERED: DIFLUCAN100 MG PO (15:57)
[2023-08-23 16:06] VITALS: BP 121/87
[2023-08-24] MEDS ORDERED: PERCOCET 5-3251 EACH PO (19:10)
== END 2023-08-23 16:07 | disposition home or self-care (01) ==
LOC: ED 13:18
PROVIDERS: Emergency Medicine
DX: B37.31 Acute candidiasis of vulva and vagina (principal); E11.9 Type 2 diabetes mellitus without complications; I10 Essential (primary) hypertension; Z88.2 Allergy status to sulfonamides; Z88.1 Allergy status to other antibiotic agents; Z88.5 Allergy status to narcotic agent; Z79.4 Long term (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; Z79.899 Other long term (current) 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
CPT/HCPCS: 81001; 84703; 99284

== ENCOUNTER 2023-08-24 14:02 | Emergency (ER) | payer OTHER ==
[~2023-08-24] VITALS: Ht 149.9 cm; Wt 37.6 kg
[~2023-08-24 14:02] MED LIST changes: +DIFLUCAN100 MG PO
--- OUTSIDE RECORDS SUMMARY | 2023-08-24 15:22 | XMS ---
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 07/17/2023 20:10 - Patient eloped before treatment completed. - Patient with suicidal and/or homicidal ideations eloped. - Patient eloped with IV in place. Details: Patient left AMA Elopement at [facility] 05/30/2023 11:44 - Patient eloped before treatment completed. - Patient with suicidal and/or homicidal ideations eloped. - Patient eloped with IV in place. Details: Patient LWBS Elopement at [facility] 01/03/2023 12:12 - Patient eloped before treatment completed. - Patient with suicidal and/or homicidal ideations eloped. - Patient eloped with IV in place. Details: Patient left AMA CRITERIA MET - 6 ED Visits in 6 Months - Group Notification [facility] - 2 Visits in 30 Days CARE PROVIDERS JORDEN HAYWOOD Nurse Practitioner: 04/21/2023-[facility] PHONE: [phone] [facility] 01/22/2021-[facility] PHONE: [phone] SAUL THORPE Physician Supervisor Wet Room 03/19/2019-Current PHONE: Unknown Jef has no Care Guidelines for this patient. Care History Medical/Surgical 09/24/2021 [facility] Contacted Gerri tire [id number]-[id number] of recent ED visits. They will follow up with the patient. 02/05/2021 [facility] - W CALLED AND SPOKE WITH DEEP SUBMERGENCE VEHICLE OPERATOR WALDEMAR- DISCUSSED RECENT ED VISITS- PRIMARY CARE PHYSICIAN REVIEWED PATIENT RECENT ED VISITS AND DID CONTACT PATIENT-THEY HAVE INSTRUCTED PATIENT TO CONTACT NUCLEAR FUEL PROCESSING TECHNICIAN DR HAMMOND TO SCHEDULE AND EARLIER APT IF POSSIBLE. PATIENT HAS TO MAKE THE APT FOR FOLLOW UP THE CLINIC CAN\T\#39;T SCHEDULE THE APT FOR THE PATIENT. - PATIENT HAS AN APT 02/06/[address] CHRISTENSEN. 01/25/2021 [facility] VOIDING TRIAL SCHEDULED WITH DR CHRISTENSEN UROLOGIST 02/06/21 [facility] VISIT COUNT (12 MO.) 42 [facility] [address] [place] [address] ([facility]) TOTAL 47 NOTE: Visits indicate total known visits. ED/UCC VISIT TRACKING (12 MO.) 08/24/2023 14:02 [facility] [place] TYPE: Emergency COMPLAINT: - HIGH BLOOD SUGAR 08/23/2023 13:19 [facility] [place] TYPE: Emergency COMPLAINT: - VAGINAL PROBLEMS 08/21/2023 21:58 [facility] TYPE: Emergency [...] USP (current) use of insulin - Other chest [...] or unspecified chronic kidney disease - Other fpc (current) drug therapy - Type 1 diabetes mellitus with diabetic chronic kidney disease - Type 1 diabetes mellitus with hyperglycemia - Unspecified abdominal pain 08/07/2023 09:07 [facility] [place]: Emergency COMPLAINT: - ABD PAIN 07/29/2023 14:03 [facility] [place] TYPE: Emergency COMPLAINT: - R EYE SWOLLEN/PAIN 07/27/2023 20:14 [facility] [place] TYPE: Emergency COMPLAINT: - PAINFUL URINATION, R FLANK PAIN, R EYE PAIN DIAGNOSES: - Allergy status to other antibiotic agents - Allergy status to penicillin - Allergy status to sulfonamides - Essential (primary) hypertension - oysterman (current) use of insulin - Other fpc (current) drug therapy - Type 1 diabetes mellitus with hyperglycemia - Unspecified abdominal pain - Unspecified conjunctivitis 07/17/2023 20:10 [facility] [place] TYPE: Emergency [...] pain - Left upper quadrant pain - USP (current) use of insulin - Other intermodal dispatcher (current) drug therapy - Type 1 diabetes [...] USP (current) use of insulin - Other intermodal dispatcher (current) drug therapy - Type 2 diabetes [...] disease, or unspecified chronic kidney disease - oysterman (current) use of insulin - Other intermodal dispatcher (current) drug therapy - Type 2 diabetes [...] on breathing - Essential (primary) hypertension - USP (current) use of insulin - Other chest pain - Other fpc (current) drug therapy - Type 2 diabetes mellitus without complications 06/16/2023 04:45 [facility] [place] TYPE: Emergency COMPLAINT: - ABD PAIN 06/13/2023 00:19 [facility] [place] ([place]) TYPE: Emergency DIAGNOSES: - [...] disease, or unspecified chronic kidney disease - oysterman (current) use of insulin - Other fpc [...] disease - Hypo-osmolality and hyponatremia - Other fpc (current) drug therapy - [...] USP (current) use of insulin - Other intermodal dispatcher (current) drug therapy - Pure hyperglyceridemia - Type 1 diabetes mellitus with diabetic chronic kidney disease - Upper abdominal pain, unspecified 05/31/2023 00:25 [facility] [place] TYPE: Emergency COMPLAINT: - ABD PAIN DIAGNOSES: - Allergy status to narcotic agent - Allergy status to penicillin - Allergy status to sulfonamides - Epigastric abdominal tenderness - Essential (primary) hypertension - USP (current) use of insulin - Other chronic pain - Other intermodal dispatcher (current) drug therapy - Type 2 diabetes mellitus without complications - Upper abdominal pain, unspecified Plus 27 More Visits INPATIENT VISIT TRACKING (12 MO.) 08/07/2023 09:08 [facility] [place] TYPE: Observation COMPLAINT: - PANCREATITIS DIAGNOSES: - Acidosis, unspecified - Acute pancreatitis without necrosis or infection, unspecified - Allergy status to other antibiotic agents - Allergy status to sulfonamides - oysterman (current) use of insulin - Other specified [...] screening for COVID-19 - Hyperlipidemia, unspecified - USP (current) use of insulin - oysterman (current) use of opiate analgesic - Other intermodal dispatcher (current) drug therapy - Other specified postprocedural [...] (primary) hypertension - Hypo-osmolality and hyponatremia - USP (current) use of insulin - Other fpc [...] - USP (current) use of insulin - Type 2 [...] disease, unspecified - Hypo-osmolality and hyponatremia - oysterman (current) use of insulin - Other intermodal dispatcher (current) drug therapy - Pure hyperglyceridemia - [...] USP (current) use of insulin - Other intermodal dispatcher (current) drug therapy - Type 1 diabetes [...] kidney disease - Hypokalemia - Hypokalemia - oysterman (current) use of insulin - oysterman (current) use of insulin - Other dental procedure status - Other dental procedure status - Other intermodal dispatcher (current) drug therapy - Other fpc (current) [...] ear - Unspecified hearing loss, right ear [email or web address]
[2023-08-24 16:34] LABS: PH, VENOUS 7.31 (7.31-7.41)
[2023-08-24 16:56] LABS: ALBUMIN 4.3 g/dL (3.4-5.0); ALBUMIN/GLOBULIN RATIO 0.86 (1.1-2.4); ANION GAP 15.2 (7-21); BILIRUBIN, TOTAL 0.3 ng/dL (0.2-1.0); BUN/CREATININE RATIO 9.13 (6.0-28.6); CALCIUM 9.4 mg/dL (8.5-10.1); CREATININE, SERUM 2.19 mg/dL (0.55-1.02); POTASSIUM 3.2 mmol/L (3.5-5.1); PROTEIN, TOTAL 9.3 g/dL (6.4-8.2)
[2023-08-24 17:09] LABS: EOSINOPHILS 0.6 % (0-6); HEMATOCRIT 29.8 % (35.0-50.0); HEMOGLOBIN 9.8 g/dL (12.0-18.0); LYMPHOCYTES 27.9 % (24-44); MCH 28.8 (27-36); MCV 87.3 fl (81-99); MONOCYTES 12.3 % (0-12); NEUTROPHILS 58.2 % (39-80); PLATELET COUNT 301 K/uL (140-440); RBC 3.41 M/ul (4.3-5.7)
[2023-08-24 17:28] LABS: BILIRUBIN, URINE NEGATIVE (negative); BLOOD/HGB, URINE SMALL (Negative); KETONE, URINE TRACE (Negative); LEUK ESTERASE, URINE NEGATIVE (negative); NITRITE, URINE NEGATIVE (negative)
[2023-08-24 17:41] LABS: BACTERIA, URINE 1+ /hpf (negative); EPITHELIAL CELLS, URINE SQUAMOUS 3+ /lpf (0-1+)
[2023-08-24 17:42] LABS: CASTS, URINE GRANULAR 3+ \\lpf; REFLEX CULTURE, URINE No (No)
[2023-08-24] MEDS ORDERED: PERCOCET 5-3251 EACH PO (19:10)
[2023-08-24 19:14] LABS: N. GONORRRHOEAE BY PCR NOT DETECTED (NOT DETECT)
[2023-08-24 19:48] VITALS: BP 115/86
== END 2023-08-24 19:50 | disposition home or self-care (01) ==
LOC: ED 14:02
PROVIDERS: Emergency Medicine
DX: E10.65 Type 1 diabetes mellitus with hyperglycemia (principal); E10.22 Type 1 diabetes mellitus with diabetic chronic kidney disease; I12.9 Hypertensive chronic kidney disease with stage 1 through stage 4 chronic kidney disease, or unspecified chronic kidney disease; N18.9 Chronic kidney disease, unspecified; Z99.0 Dependence on aspirator; Z88.1 Allergy status to other antibiotic agents; Z88.2 Allergy status to sulfonamides; Z88.8 Allergy status to other drugs, medicaments and biological substances; Z88.5 Allergy status to narcotic agent; Z79.899 Other long term (current) 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
CPT/HCPCS: 36415; 76830; 76856; 80053; 81001; 82010; 82803; 85025; 87210; 87491; 96361; 96374; 96376; 99285-25; J1200; J7040

== ENCOUNTER 2023-09-03 20:27 | Emergency (ER) | payer OTHER ==
[~2023-09-03] VITALS: Ht 149.9 cm; Wt 37.9 kg
[~2023-09-03 20:27] MED LIST changes: +PERCOCET 5-3251 EACH PO
[2023-09-03 22:16] VITALS: BP 160/104
== END 2023-09-03 22:16 | disposition home or self-care (01) ==
LOC: ED 20:27
DX: R33.9 Retention of urine, unspecified (principal); E11.22 Type 2 diabetes mellitus with diabetic chronic kidney disease; I12.9 Hypertensive chronic kidney disease with stage 1 through stage 4 chronic kidney disease, or unspecified chronic kidney disease; N18.9 Chronic kidney disease, unspecified; Z88.2 Allergy status to sulfonamides; Z88.0 Allergy status to penicillin; Z88.1 Allergy status to other antibiotic agents; Z88.5 Allergy status to narcotic agent
CPT/HCPCS: 51702; 51798; 99283

== ENCOUNTER 2023-09-17 18:15 | Emergency (ER) | payer OTHER ==
[~2023-09-17] VITALS: Ht 149.9 cm; Wt 36.7 kg
[2023-09-17] MEDS ORDERED: CEPHALEXIN500 M1 PO (23:46)
[2023-09-18 00:21] VITALS: BP 138/90
[2023-09-20] MEDS ORDERED: ONDANSETRON ODT8 MG PO (00:45)
== END 2023-09-18 00:21 | disposition home or self-care (01) ==
LOC: ED 18:15
DX: H92.02 Otalgia, left ear (principal); H60.92 Unspecified otitis externa, left ear; I10 Essential (primary) hypertension; E11.9 Type 2 diabetes mellitus without complications; E78.2 Mixed hyperlipidemia; Z86.14 Personal history of Methicillin resistant Staphylococcus aureus infection; Z79.4 Long term (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; Z79.899 Other long term (current) 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; Z88.0 Allergy status to penicillin; Z88.1 Allergy status to other antibiotic agents; Z88.2 Allergy status to sulfonamides; Z88.5 Allergy status to narcotic agent; Z88.8 Allergy status to other drugs, medicaments and biological substances
CPT/HCPCS: 99282; A9270

== ENCOUNTER 2023-10-03 00:35 | Observation (INO) | payer OTHER ==
[2023-10-03] VITALS (11 sets, daily range): BP systolic 112–158; BP diastolic 58–104
[~2023-10-03] VITALS: Ht 149.9 cm; Wt 39.5 kg
[~2023-10-03 00:35] MED LIST changes: +DEXCOM G61 EAC1; +DEXCOM G61 EAC2; +DEXCOM G61 EACH; +DEXCOM G61 EACH TD; +LEVOFLOXACIN750 MG PO
[2023-10-03 01:24] LABS: BASOPHILS 0.8 % (0-2); EOSINOPHILS 2.6 % (0-6); HEMATOCRIT 32.3 % (35.0-50.0); HEMOGLOBIN 10.3 g/dL (12.0-18.0); LYMPHOCYTES 34.9 % (24-44); MCH 29.1 (27-36); MCV 90.9 fl (81-99); MONOCYTES 6.8 % (0-12); NEUTROPHILS 54.9 % (39-80); PLATELET COUNT 318 K/uL (140-440); RBC 3.56 M/ul (4.3-5.7); RDW 16.1 (10.5-15.0)
[2023-10-03 01:46] LABS: BILIRUBIN, URINE NEGATIVE (negative); BLOOD/HGB, URINE TRACE-L (Negative); KETONE, URINE NEGATIVE (Negative); LEUK ESTERASE, URINE NEGATIVE (negative); NITRITE, URINE NEGATIVE (negative)
[2023-10-03 01:51] LABS: EPITHELIAL CELLS, URINE SQUAMOUS 3+ /lpf (0-1+)
[2023-10-03 01:52] LABS: BACTERIA, URINE RARE /hpf (negative); CASTS, URINE NONE SEEN \\lpf; CRYSTALS, URINE NONE SEEN (0-1+); REFLEX CULTURE, URINE No (No)
[2023-10-03 01:52] LABS: ALBUMIN 3.8 g/dL (3.4-5.0); ALBUMIN/GLOBULIN RATIO 0.79 (1.1-2.4); ANION GAP 23.2 (7-21); BILIRUBIN, TOTAL 0.2 ng/dL (0.2-1.0); BUN/CREATININE RATIO 15.76 (6.0-28.6); CALCIUM 8.5 mg/dL (8.5-10.1); CREATININE, SERUM 2.03 mg/dL (0.55-1.02); POTASSIUM 5.2 mmol/L (3.5-5.1); PROTEIN, TOTAL 8.6 g/dL (6.4-8.2)
--- NOTE | 2023-10-03 03:30 | NUR ---
PT ARRIVES TO CCU ROOM 130 FOR PANCREATITIS/DKA. INSULIN GTT INFUSING AT 8.8 UNITS/HR, REPORT RECEIVED FROM JOSEPHINE RUDD. PT IS RESTING WITH EYES CLOSED, NAD, DOES ANSWER QUESTIONS WITH EYES CLOSED WHEN ASKED BUT OVERALL IS QUIET AND SLOW TO RESPOND TO QUESTIONS. C/O ABDOMINAL PAIN RADIATING TO RIGHT SIDE. ARRIVES WITH PT AND WILL BE STAYING THE NIGHT. SHE STATES THIS PAIN STARTED YESTERDAY AND HAS CONTINUED TO GET WORSE. DISCUSSED PLAN FOR THE NIGHT, PT AGREEABLE, UP TO VOID LARGE AMT VERY LIGHT URINE AND THEN BACK TO BED. CALL LIGHT IN HAND.
--- NOTE | 2023-10-03 03:54 | NUR ---
PT REQUESTS PAIN MED FOR 03/24 RUQ ABD PAIN, NO PAIN MED ORDERED, CALL TO DR TORRES ORDER GIVEN FOR TRAMADOL.
[2023-10-03 08:11] LABS: BASOPHILS 0.6 % (0-2); HEMATOCRIT 28.1 % (35.0-50.0); HEMOGLOBIN 9.3 g/dL (12.0-18.0); LYMPHOCYTES 42.2 % (24-44); MCH 29.8 (27-36); MCHC 33.1 g/dl (30-36); MONOCYTES 8.8 % (0-12); NEUTROPHILS 46.4 % (39-80); PLATELET COUNT 307 K/uL (140-440); RBC 3.13 M/ul (4.3-5.7); RDW 16.1 (10.5-15.0)
[2023-10-03 08:15] LABS: ANION GAP 16.9 (7-21); BUN/CREATININE RATIO 20.13 (6.0-28.6); CALCIUM 8.1 mg/dL (8.5-10.1); CREATININE, SERUM 1.49 mg/dL (0.55-1.02); MAGNESIUM 1.9 mg/dL (1.8-2.4); POTASSIUM 3.9 mmol/L (3.5-5.1)
--- NOTE | 2023-10-03 09:15 | NUR ---
CALL TO DR TO UPDATE ON SUGARS AND PT REPORTS OF ITCHING AND PAIN. NEW ORDER FOR ALEXANDRA AND NS @75. AWARE THAT US IS DONE.
--- NOTE | 2023-10-03 09:38 | NUR ---
IN ROOM FOR IV BENADRYL FOR ITCHING FEELING - NO RASH NOTED, ULTRAM GIVEN WITH SIP OF WATER. CALL LIGHT IN REACH - PT TALKING ON PHONE WITH FAMILY
--- NOTE | 2023-10-03 11:04 | NUR ---
ROUNDS. PT DECLINED SPIRITUAL CARE SERVICES. PROVIDED SILENT PRAYER.
--- NOTE | 2023-10-03 11:24 | NUR ---
rn answered call light, pt requests ice chips - rn provided, pt checked bs with her sensor - 164 mg/dl at this time, reports pain in abd improved and itching improved. call light in reach and in room.
--- NOTE | 2023-10-03 13:02 | NUR ---
UR NOTE MCG DIABETES: OBSERVATION CARE (ISC) 10/03/23 MET OBSERVATION CARE ADMISSION CRITERIA
--- NOTE | 2023-10-03 13:57 | NUR ---
MED REC COMPLETE
--- NOTE | 2023-10-03 14:10 | NUR ---
In to speak with pt. She is sleeping. Spoke with spouse, Pablo. No change from last visit. Pt did berry picker her diabetic sensors. Pt is trialing Domingo system and hopefully will get an insulin pump in the near future.
--- NOTE | 2023-10-03 17:41 | NUR ---
CBG checked, 85. Patient dinner tray taken to patient. Fresh ice given. No further needs at this time.
--- NOTE | 2023-10-03 18:20 | NUR ---
DR TORRES HERE, AWARE OF DINNER BLOOD SUGAR 85, AND PT IV CONTINUES, LABS IN AM.PT IS EATING DINNER WELL - SALMON HER FAVORITE HERE. CALL LIGHT IN REACH - NEW DIET SPRITE PROVIDED.
--- NOTE | 2023-10-03 19:30 | NUR ---
REPORT RECEIVED FROM DENZEL RUDD. PT IS IN BED, IN ROOM.
--- NOTE | 2023-10-03 20:08 | NUR ---
IN TO DO ASSESSMENT, PT IN BATHROOM, WALKING AROUND TALKING ON PHONE, ASKED IF SHE NEEDS ANYTHING SHE ASKS IF IT TIME FOR MORE BENADRYL AND THAT SHE WOULD LIKE MORE WHEN SHE CAN HAVE IT.
--- NOTE | 2023-10-03 20:41 | NUR ---
PT CALLS TO SAY SHE IS BACK IN BED AND ASK FOR TEA AND CRACKERS. BLOOD SUGAR CHECKED, INSULIN SKI INSTRUCTOR PER SS AND CRACKERS GIVEN TO PT. C/O 03/24 UPPER ABDOMINAL PAIN, PT REQUESTS PAIN MEDICATION. PRN TRAMADOL GIVEN AND PLAN TO GIVE BENADRYL AROUND 2129.
--- NOTE | 2023-10-03 21:40 | NUR ---
PATIENT CALLED NURSES STATION TO REQUEST MEDICATIONS, SHE REPORTS THAT SHE FEELS "ITCHY AND RESTLESS", THIS RN GAVE BENEDRYL PRN FOR ITCHING, PRIMARY RN BAN AWARE AND WILL ROUND.
--- NOTE | 2023-10-03 23:04 | NUR ---
PT CALLED TO SAY SHE CAN'T SLEEP AND ASKED IF SHE COULD HAVE SOME MELATONIN. CALL TO DR TORRES AND NEW ORDER FOR MELATONIN GIVEN, WILL GIVE TO PT.
[2023-10-04] VITALS: BP 121/88
[2023-10-04 02:00] VITALS: BP 119/93
[2023-10-04 04:00] VITALS: BP 123/81
--- NOTE | 2023-10-04 04:26 | NUR ---
PATIENT CALLED [facility]URSES STATION IV PUMP ALARMING, PATIENT ASKED "CAN I GET SOMETHING FOR ITCHING?" SHE ALSO ASKED FOR ICE CHIPS. BENEDRYL PRN ADMINISTERED, ICE CHIPS PROVIDED. PATIENT REPORTS NO OTHER NEEDS AT THIS TIME.
--- NOTE | 2023-10-04 04:57 | NUR ---
PATIENT REPORTS ANXIETY, SHE SAID SHE IS HAVING NIGHTMARES DUE TO FAMILY ILLNESS. ATIVAN PRN ADMINISTERED AT THIS TIME, LAB IN ROOM FOR AM BLOOD DRAW.
[2023-10-04 05:37] LABS: BASOPHILS 1.3 % (0-2); EOSINOPHILS 2.5 % (0-6); HEMATOCRIT 28.4 % (35.0-50.0); HEMOGLOBIN 9.2 g/dL (12.0-18.0); LYMPHOCYTES 38.3 % (24-44); MCH 29.2 (27-36); MCHC 32.6 g/dl (30-36); MCV 89.8 fl (81-99); MONOCYTES 6.3 % (0-12); NEUTROPHILS 51.6 % (39-80); PLATELET COUNT 285 K/uL (140-440); RBC 3.16 M/ul (4.3-5.7)
[2023-10-04 05:55] LABS: ALBUMIN 3.2 g/dL (3.4-5.0); ALBUMIN/GLOBULIN RATIO 0.82 (1.1-2.4); BILIRUBIN, TOTAL 0.2 ng/dL (0.2-1.0); BUN/CREATININE RATIO 15.5 (6.0-28.6); CALCIUM 8.8 mg/dL (8.5-10.1); MAGNESIUM 2.1 mg/dL (1.8-2.4); PROTEIN, TOTAL 7.1 g/dL (6.4-8.2)
[2023-10-04 06:06] LABS: BUN/CREATININE RATIO 15.34 (6.0-28.6); CALCIUM 8.8 mg/dL (8.5-10.1); CREATININE, SERUM 2.02 mg/dL (0.55-1.02)
[2023-10-04 08:00] VITALS: BP 110/88
--- NOTE | 2023-10-04 09:15 | EKG ---
[facility] [address] [facility] [place] [address] Signed Sinus tachycardia Inferior infarct (cited on or before 06-JUL-2023) Abnormal ECG When compared with ECG of 16-AUG-2023 22:59, No significant change was found Confirmed by TRISTAN TORRES MD ([id number]) on 10/04/2023 9:14:56 AM Electronically Signed By: TRISTAN TORRES 10/04/23 0915 PATIENT NAME: GUILLERMO GUTIERREZSABRINA KAHN Electrocardiogram DATE OF : [birth year] PHYSICIAN: TRISTAN TORRES REPORT #: [id number] REPORT IS CONFIDENTIAL AND NOT TO BE RELEASED WITHOUT AUTHORIZATION
--- NOTE | 2023-10-04 09:25 | NUR ---
IN PATIENT'S ROOM FOR AM ASSESSMENT. PT SLEEPING UPON ENTRY TO ROOM, RESTING COMFORTABLEY AND DOES NOT APPEAR IN ANY ACUTE DISTRESS. CBG 428 - DR. TORRES NOTIFIED HE WAS IN ROOM ROUNDING ON PATIENT WELL. PLAN OF CARE DISCUSSED. PT TO HAVE 6 UNTIS OF LONG ACTING INSULIN THIS AM - PT NORMALLY TAKES 12 UNTIS AT NIGHT TIME BUT DID NOT RECEIVE ANY OF THIS LAST NIGHT. PT NOW ON A 60 GM CONS CARB DIET. IV SITE NOTED TO BE INFILTRATED IN RIGHT UPPER ARM AND IV CATH D/C. SWELLLING NOTED TO BE ALL THE WAY TO AXILLAE AND DOWN TO LOWER FOREARM. DISCUSSED THIS WITH MD. ORDER REC'D THAT PATIENT IS OKAY WITHOUT ANOTHER IV AT THIS TIME. PT STATES ARM IS NOT PAINFUL, BUT IS JUST "PUFFY" FEELING. ENC ELEVATION OF ARM. PT'S WILMER IS ASLEEP ON COUCH. WILL CONTINUE TO MONITOR.
--- NOTE | 2023-10-04 10:56 | NUR ---
CALL PLACED TO DR. TORRES REGARDING PATIENT'S ITCHING AND ORDER REC'D FOR PO BENADRYL WAS PLACED. PT C/O PAIN AND ITCHING ON RIGHT UPPER ARM FROM WHERE IV SITE HAD INFILTRATED, WELL HER THROAT FEELING ITCHY. PT HAD ABOUT 25% OF HER BREAKFAST.
--- NOTE | 2023-10-04 11:01 | NUR ---
PATIENT USES CALL LIGHT AND REQUESTS SOME MESH UNDERPANTS WHICH WERE PROVIDED. INFORMED PATIENT THAT DR. TORRES SHOULD BE BACK TO RE-EVAL HER AND MAKE A PLAN FOR POTENTIAL D/C HOME. PATIENT ASKS THEN, "IS HE GOING TO WRITE ME A PRESCRIPTION FOR SOMETHING FOR ANXIETY?" DISCUSSED THIS WITH PATIENT. PATIENT STATES SHE HAD "BAD ANXIETY THIS MORNING BECAUSE OF EVERYTHING THAT IS GOING ON WITH HER." DISCUSSED WITH HER THAT SHE WOULD NEED TO DISCUSS THIS WITH MD IF HE WOULD BE WILLING TO PRESCRIBE HER SOMETHING FOR HER ANXIETY OR NOT. WILL CONTINUE TO MONITOR.
[2023-10-04] MEDS ORDERED: HYDROXYZINE HCL25 MG PO (11:43)
== END 2023-10-04 12:50 | disposition home or self-care (01) ==
LOC: ED 00:35 → CCU 00:36
PROVIDERS: Internal Medicine; ADMIT Internal Medicine; ATTEND Internal Medicine
DX: E11.10 Type 2 diabetes mellitus with ketoacidosis without coma (principal); Z88.2 Allergy status to sulfonamides; Z88.1 Allergy status to other antibiotic agents; Z88.8 Allergy status to other drugs, medicaments and biological substances; E78.5 Hyperlipidemia, unspecified; I10 Essential (primary) hypertension; Z79.4 Long term (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; N18.9 Chronic kidney disease, unspecified; E11.22 Type 2 diabetes mellitus with diabetic chronic kidney disease
CPT/HCPCS: 36415; 76700; 80048; 80053; 81001; 82010; 82803; 83690; 83735; 84484; 85025; 93005; 93010; 96372; 96374; 96375; 96376; 99285-25; A9270; G0378; J1200; J1650; J1815; J1885; J2060; J2405; J7030; J7042; J7121

== ENCOUNTER 2023-10-22 20:07 | Emergency (ER) | payer OTHER ==
[~2023-10-22] VITALS: Ht 149.9 cm; Wt 37.1 kg
[~2023-10-22 20:07] MED LIST changes: +HYDROXYZINE HCL25 MG PO
[2023-10-22] MEDS ORDERED: LACTATED RINGER'S 1,000 ML IV ONE (20:30)
[2023-10-22] MEDS ORDERED: ondansetron HCL 4 MG/2 ML VIAL IV ONE (20:30)
[2023-10-22] MEDS ORDERED: MORPHINE SULFATE 4 MG/ML VIAL IV ONE (20:30)
[2023-10-22] MEDS ORDERED: Insulin Regular, Human 100 UNIT/ML ML IV ONE (20:30)
[2023-10-22] MEDS ORDERED: diphenhydrAMINE HCL 50 MG/ML VIAL IV ONE ×2 (20:30→21:45)
[2023-10-22 20:38] LABS: PH, VENOUS 7.287 (7.31-7.41)
[2023-10-22 20:41] LABS: BASOPHILS 0.5 % (0-2); EOSINOPHILS 2.2 % (0-6); HEMATOCRIT 32.2 % (35.0-50.0); HEMOGLOBIN 10.6 g/dL (12.0-18.0); LYMPHOCYTES 38.5 % (24-44); MCH 29.9 (27-36); MCHC 32.9 g/dl (30-36); MCV 90.9 fl (81-99); MONOCYTES 7.5 % (0-12); NEUTROPHILS 51.3 % (39-80); PLATELET COUNT 388 K/uL (140-440); RBC 3.54 M/ul (4.3-5.7); RDW 17.1 (10.5-15.0)
[2023-10-22 20:55] LABS: BILIRUBIN, URINE NEGATIVE (negative); BLOOD/HGB, URINE TRACE-L (Negative); KETONE, URINE NEGATIVE (Negative); LEUK ESTERASE, URINE NEGATIVE (negative); NITRITE, URINE NEGATIVE (negative); PH, URINE 6.5 (5-7)
[2023-10-22 20:59] LABS: ALBUMIN 3.4 g/dL (3.4-5.0); ALBUMIN/GLOBULIN RATIO 0.69 (1.1-2.4); ANION GAP 19.9 (7-21); BILIRUBIN, TOTAL 0.3 ng/dL (0.2-1.0); BUN/CREATININE RATIO 13.18 (6.0-28.6); CALCIUM 9.2 mg/dL (8.5-10.1); CREATININE, SERUM 2.2 mg/dL (0.55-1.02); POTASSIUM 4.9 mmol/L (3.5-5.1); PROTEIN, TOTAL 8.3 g/dL (6.4-8.2)
[2023-10-22 21:02] LABS: BACTERIA, URINE NONE SEEN /hpf (negative); CASTS, URINE NONE SEEN \\lpf; CRYSTALS, URINE NONE SEEN (0-1+); EPITHELIAL CELLS, URINE SQUAMOUS 1+ /lpf (0-1+); REFLEX CULTURE, URINE No (No)
[2023-10-22 21:03] LABS: COLLECTION TYPE, URINE CLEAN CATCH
[2023-10-22 22:35] LABS: BASE EXCESS, BLOOD GAS -2.5 mmol/L (-2-2); HCO3, BLOOD GAS 22.5 mmol/L (22-26); O2 SATURATION, BLOOD GAS 98.3 % (95.0-100.0); PCO2, BLOOD GAS 37.9 mmHg (35-45); PH, BLOOD GAS 7.38 (7.35-7.45); PO2, BLOOD GAS 89 mmHg (80-100); TOTAL CO2, BLOOD GAS 23.6
[2023-10-22 22:36] LABS: OXYGEN RECEIVED, BLOOD GAS ROOM AIR
[2023-10-22 22:54] VITALS: BP 127/93
== END 2023-10-22 22:55 | disposition home or self-care (01) ==
LOC: ED 20:07
PROVIDERS: Family Medicine
DX: E10.65 Type 1 diabetes mellitus with hyperglycemia (principal); I12.9 Hypertensive chronic kidney disease with stage 1 through stage 4 chronic kidney disease, or unspecified chronic kidney disease; E10.22 Type 1 diabetes mellitus with diabetic chronic kidney disease; N18.9 Chronic kidney disease, unspecified; R10.13 Epigastric pain; E78.1 Pure hyperglyceridemia; Z88.2 Allergy status to sulfonamides; Z88.8 Allergy status to other drugs, medicaments and biological substances; Z88.1 Allergy status to other antibiotic agents; Z88.5 Allergy status to narcotic agent; Z79.899 Other long term (current) 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
CPT/HCPCS: 36415; 36600; 80053; 81001; 82010; 82803; 85025; 96374; 96375; 96376; 99284-25; J1200; J1815; J2270; J2405; J7121

== ENCOUNTER 2023-10-25 11:35 | Inpatient (IN) | payer OTHER ==
[~2023-10-25] VITALS: Ht 149.9 cm; Wt 36.2 kg
[2023-10-25 12:16] LABS: BASOPHILS 1.3 % (0-2); EOSINOPHILS 1.8 % (0-6); HEMATOCRIT 31.2 % (35.0-50.0); MCH 29.2 (27-36); MCHC 32.1 g/dl (30-36); MONOCYTES 6.9 % (0-12); PH, VENOUS 7.245 (7.31-7.41); PLATELET COUNT 436 K/uL (140-440); RBC 3.43 M/ul (4.3-5.7); RDW 16.5 (10.5-15.0)
[2023-10-25 12:23] LABS: BILIRUBIN, URINE NEGATIVE (negative); BLOOD/HGB, URINE NEGATIVE (Negative); KETONE, URINE NEGATIVE (Negative); LEUK ESTERASE, URINE NEGATIVE (negative); NITRITE, URINE NEGATIVE (negative)
[2023-10-25 12:36] LABS: RED BLOOD CELLS, URINE 0-1 /hpf (0-5)
[2023-10-25 12:37] LABS: EPITHELIAL CELLS, URINE SQUAMOUS 3+ /lpf (0-1+); REFLEX CULTURE, URINE No (No)
[2023-10-25 12:37] LABS: ALBUMIN 3.3 g/dL (3.4-5.0); ALBUMIN/GLOBULIN RATIO 0.67 (1.1-2.4); ANION GAP 20.7 (7-21); BILIRUBIN, TOTAL 0.3 ng/dL (0.2-1.0); BUN/CREATININE RATIO 14.85 (6.0-28.6); CALCIUM 9.5 mg/dL (8.5-10.1); CREATININE, SERUM 2.02 mg/dL (0.55-1.02); POTASSIUM 5.7 mmol/L (3.5-5.1); PROTEIN, TOTAL 8.2 g/dL (6.4-8.2)
[2023-10-25] MEDS ORDERED: MORPHINE SULFATE 4 MG/ML VIAL IV PRN (12:45)
[2023-10-25] MEDS ORDERED: SODIUM CHLORIDE 0.9% 1,000 ML IV PRN (12:45)
[2023-10-25] MEDS ORDERED: diphenhydrAMINE HCL 50 MG/ML VIAL IV ONE ×2 (12:45→13:45)
[2023-10-25 13:21] LABS: INFLUENZA B NAA NEGATIVE (NEGATIVE); RESPIRATORY SYNCYTIAL VIR NAA NEGATIVE (NEGATIVE)
[2023-10-25 14:30] LABS: PH, VENOUS 7.266 (7.31-7.41)
[2023-10-25 14:52] LABS: BUN/CREATININE RATIO 15.76 (6.0-28.6); CALCIUM 8.5 mg/dL (8.5-10.1); CREATININE, SERUM 1.84 mg/dL (0.55-1.02)
[2023-10-25] MEDS ORDERED: INSULIN REGULAR IN 0.9 % NACL 100 ML IV SCH (15:15)
[2023-10-25] MEDS ORDERED: SODIUM CHLORIDE 0.9% 1,000 ML IV SCH ×2 (15:15→16:15)
--- NOTE | 2023-10-25 17:00 | NUR ---
PT ARRIVES TO CCU ROOM 126 ADMITTED FOR DM. PT IS AWAKE AND ALERT, IS WITH HER, SHE GETS UP TO BATHROOM TO VOID AND THEN INTO BED SBA, STEAD ON FEET, HR STEADY 100'S. PT REQUESTS SODA TO DRINK, WILL CHECK ORDERS. PT ARRIVES WITH INSULING GTT INFUSING, RECENT BLOOD SUGAR DONE IN ED WAS 247. PT STATES SHE HAD HER CONT GLUCOSE MONITORING ON, HAD NOTICED INCREASED BLOOD SUGARS OVER THE LAST COUPLE OF DAYS, SHE IS NOT SURE WHY THEY ARE HIGHER TODAY.
[2023-10-25] MEDS ORDERED: diphenhydrAMINE HCL 25 MG CAP PO PRN (17:45)
[2023-10-25] MEDS ORDERED: HYDROCODONE/ACETA 5/325 TAB PO PRN (17:45)
[2023-10-25] MEDS ORDERED: IBLOOD GLUCOSE TEST STRIP 1 EA TEST VI SCH (18:15)
--- NOTE | 2023-10-25 18:28 | NUR ---
BLOOD SUGAR 93, PT JUST STARTING TO EAT A TURKEY SANDWICH. CALLED, ORDER TO STOP INSULIN DRIOP AND CHECK BS Q1H FOR NOW, GIVE LANTUS 10 UNITS. INSULIN DRIP STOPPED.
[2023-10-25] MEDS ORDERED: INSULIN GLARGINE-YFGN 100 UNIT/ML ML SUB-Q ONE ×2 (18:45→21:15)
[2023-10-25 19:03] VITALS: BP 141/103
[2023-10-25 20:00] VITALS: BP 141/105
--- NOTE | 2023-10-25 20:00 | NUR ---
ACCU CHECK DONE AND PRN PAIN MEDS. PATIENT RESTING IN BED WATCHING TV AND EATING FOOD. DENIED GI UPSET. REPORTS 8/ ABD PAIN.
--- NOTE | 2023-10-25 20:49 | NUR ---
PATIENT PROVIDED WARM BLANKET.
[2023-10-25 20:51] LABS: ANION GAP 16.8 (7-21); BUN/CREATININE RATIO 14.14 (6.0-28.6); CALCIUM 9.2 mg/dL (8.5-10.1); CREATININE, SERUM 1.98 mg/dL (0.55-1.02); POTASSIUM 4.8 mmol/L (3.5-5.1)
[2023-10-25 21:00] VITALS: BP 122/92
--- NOTE | 2023-10-25 21:00 | NUR ---
PATIENT PROVIDED PO BENADRYL. PATIENT REQUEST IV FORM OF MED DUE TO ITCHING AND STATED "I WANT IT TO WORK FASTER".
--- NOTE | 2023-10-25 21:12 | NUR ---
DISCUSSED PATIENT'S LABS AND BLOOD SUGARS WITH PATIENT WILL BE SL. ACCU CHECKS AND SSI WMHS ON MODERATE SCALE. ADD 10 UNITS OF LANTUS X1. CHANGE BENADRYL TO IV FROM PO ROUTE. VERIFIED VIA REPEAT BACK METHOD.
[2023-10-25] MEDS ORDERED: diphenhydrAMINE HCL 50 MG/ML VIAL IV PRN (21:15)
--- NOTE | 2023-10-25 21:38 | NUR ---
PATIENT PROVIDED MEDS PER ORDER. IV SL AT THIS TIME. PATIENT RESTING IN BED. LIGHTS DIMMED. VS STABLE. DENIED GI UPSET OR PAIN.
[2023-10-25] MEDS ORDERED: Insulin Regular, Human 100 UNIT/ML ML SUB-Q SCH (21:45)
[2023-10-25 22:00] VITALS: BP 106/82
--- NOTE | 2023-10-25 22:02 | NUR ---
SCHEDULED MED PROVIDED. PT STATES NO OTHER NEEDS. CALL LIGHT IN REACH.
[2023-10-25 23:00] VITALS: BP 124/96
--- NOTE | 2023-10-25 23:00 | NUR ---
PATIENT REPORTS CONTINUED ITCHING AND REQUESTING ADDITIONAL DOSE OF PRN BENADRYL. PATIENT EDUCATION PROVIDED. PATIENT APPEARS RESTFUL IN THE BED UNDER HER OWN PERSONAL BALNKETS. LOTION OFFERED, PATIENT DECLINED. WET WASH CLOTH OFFERED, PATIENT DECLINED. PATIENT DENIED OTHER NEEDS OR CONCERNS.
[2023-10-26] VITALS: BP 104/79
--- NOTE | 2023-10-26 00:11 | NUR ---
PATIENT APPEARS RESTFUL IN THE BED. EYES CLOSED. VS STABLE. ALLOWED PATIENT TO REST. CALL LIGHT IN REACH.
--- NOTE | 2023-10-26 00:22 | NUR ---
PATIENT CALLED TO REPORT FEELING ITCHY. WHEN THIS RN ENTERED ROOM A FEW MOMENTS LATER THE PATIENT APPEARED TO BE SLEEPING; EYES CLOSED. VS STABLE. ALLOWED PATIENT TO REST.
--- NOTE | 2023-10-26 00:48 | NUR ---
DISCUSSED PATIENT'S STATUS WITH . PATIENT CAN BE MADE MEDSURG AT THIS TIME.
[2023-10-26 01:13] VITALS: BP 120/80
--- NOTE | 2023-10-26 01:14 | NUR ---
REPORT RECEIVED FROM CCU RN. PATIENT MOVED TO MEDICAL FLOOR ROOM 125.
[2023-10-26 01:29] VITALS: BP 120/80
--- NOTE | 2023-10-26 01:38 | NUR ---
PATIENT REPORTS 8/10 ABD PAIN, PRN PAIN MEDICATION GIVEN PER ORDER. PATIENT PROVIDED HOT TEA. PATIENT DENIES ANY FURTHER NEEDS. CALL LIGHT IN REACH.
--- NOTE | 2023-10-26 02:15 | NUR ---
PATIENT IS RESTING IN BED PLAYING A GAME ON HER PHONE. PATIENT DENIES ANY NEEDS. CALL LIGHT IN REACH.
--- NOTE | 2023-10-26 02:37 | NUR ---
PATIENT CALLED AND REQUESTED A WARM BLANKET AND A PAD. PATIENT IS RESTING IN BED. PATIENT DENIES ANY FURTHER NEEDS. CALL LIGHT IN REACH. PATIENTS ASLEEP ON COUCH.
--- NOTE | 2023-10-26 03:30 | NUR ---
PATIENT IS RESTING IN BED. PATIENT REPORTS BEING "ITCHY", PRN MEDICATION GIVEN PER ORDER. PATIENT GIVEN HOT TEA AND WARM BLANKET PER REQUEST. PATIENT DENIES ANY FURTHER NEEDS. CALL LIGHT IN REACH.
[2023-10-26 04:00] LABS: ANION GAP 15.8 (7-21); BUN/CREATININE RATIO 16.81 (6.0-28.6); CALCIUM 8.4 mg/dL (8.5-10.1); CREATININE, SERUM 2.32 mg/dL (0.55-1.02); POTASSIUM 4.8 mmol/L (3.5-5.1)
--- NOTE | 2023-10-26 04:21 | NUR ---
PATIENT IS RESTING IN BED WITH EYES CLOSED, RR 16. CALL LIGHT IN REACH.
--- NOTE | 2023-10-26 05:15 | NUR ---
PATIENT CALLED AND REQUESRTED TO SPEAK BART THIS RN. PATIENT STATED "I AM ITHCING ALL OVER". PATIENT EDUCATED ON NEXT SCHEDULED MEDICATION FOR ITCHING. PATIENT OFFERED COOL WASH RAG AND LOTION. PATIENT REFUSED LOTION AND COOL RAG. PATIENT STATED "I AM HAVING PAIN IN MY STOMACHE". PATIENT OFFERED WARM PACK. PATIENT REFUSED. PATIENT EDUCATED ON NEXT DUE PAIN MEDICATION. PATIENT VERBALIZESE UNDERSTANDING. NO FURTHER NEEDS NOTED. CALL LIGHT IN REACH.
[2023-10-26 06:41] VITALS: BP 117/83
--- NOTE | 2023-10-26 06:43 | NUR ---
PATIENT IS RESTING IN BED WITH EYES CLOSED, RR 15. PATIENTS VITALS TAKEN AND RECORDED. PATIENTS INTAKE AND OUTPUT RECORDED. PATIENT DENIES ANY NEEDS. CALL LIGHT IN REACH.
[2023-10-26] MEDS ORDERED: SODIUM CHLORIDE 0.9% 1,000 ML IV SCH (07:45)
[2023-10-26] MEDS ORDERED: IBLOOD GLUCOSE TEST STRIP 1 EA TEST VI SCH (08:00)
[2023-10-26] MEDS ORDERED: GLUCAGON,HUMAN RECOMBINANT 1 MG/ML VIAL SUB-Q PRN (08:00)
[2023-10-26] MEDS ORDERED: Insulin Regular, Human 100 UNIT/ML ML SUB-Q SCH (08:00)
[2023-10-26] MEDS ORDERED: DEXTROSE 50% 50 ML SYR IV PRN ×2 (08:00)
[2023-10-26] MEDS ORDERED: IBLOOD GLUCOSE TEST STRIP 1 EA TEST XX PRN (08:00)
[2023-10-26] MEDS ORDERED: DEXTROSE 5% 1,000 ML IV PRN (08:00)
--- NOTE | 2023-10-26 08:19 | NUR ---
PATIENT ADMINISTERED 3 UNITS OF INSULIN. PATIENT IV FLUIDS STARTED AT 500 ML/HR IN THE RIGHT AC. IV SITE FLUSHED WITH 10 ML NORMAL SALINE. IV DRESSING IS CLEAN, DRY, AND INTACT. IV SITE IN THE RIGHT WRIST IS CLEAN, DRY, AND INTACT. PATIENT REFUSED RN TO FLUSH THE IV SITE BECAUSE IT HURTS. PATIENT STATED PAIN IS 7/10 AT THIS TIME. PATIENT LUNG SOUNDS ARE CLEAR IN ALL LUNG BLAKE BILATERALLY AND IS ON ROOM AIR. CARDIAC ASSESSMENT WITH NORMAL S1 AND S2. RADIAL AND PEDAL PULSES ARE STRONG BILATERALLY. CAPILLARY REFILL IN THE UPPER AND LOWER EXREMITIES IS LESS THAN 3 SECONDS. PATIENT BOWEL TONES ARE ACTIVE IN ALL FOUR QUADRANTS. PATIENT WITH ON THE COUCH AND IS SLEEPING. PATIENT BREAKFAST TRAY SET UP IN FRONT OF THE PATIENT. PATIENT STATED NO FURTHER NEEDS AT THIS TIME.
[2023-10-26 09:54] LABS: ANION GAP 16.3 (7-21); BUN/CREATININE RATIO 16.5 (6.0-28.6); CALCIUM 8.1 mg/dL (8.5-10.1); CREATININE, SERUM 2.12 mg/dL (0.55-1.02); POTASSIUM 4.3 mmol/L (3.5-5.1)
--- NOTE | 2023-10-26 10:20 | NUR ---
PATIENT ADMINISTERED PRN PAIN MEDICATION AND BENEDRYL UPON REQUEST. PATIENT LYING COMFORTABLY IN BED WITH HER ASLEEP ON THE COUCH IN THE ROOM. PATIENT STATED NO FURTHER NEEDS AT THIS TIME. CALL LIGHT AND PERSONAL BELONGINGS ARE WITHIN REACH.
[2023-10-26 10:52] VITALS: BP 135/87
[2023-10-26] MEDS ORDERED: PHARMACY RENAL DOSE ADJUSTMENT 1 DOSE MISC PO SCH (12:00)
== END 2023-10-26 11:55 | disposition home or self-care (01) | DRG 638 ==
LOC: ED 11:35 → CCU 16:07 → MS 10-26 00:49
PROVIDERS: Emergency Medicine; ADMIT Internal Medicine; ATTEND Internal Medicine
DX: E10.10 Type 1 diabetes mellitus with ketoacidosis without coma (principal); C71.9 Malignant neoplasm of brain, unspecified; E78.5 Hyperlipidemia, unspecified; H91.91 Unspecified hearing loss, right ear; E10.22 Type 1 diabetes mellitus with diabetic chronic kidney disease; N18.9 Chronic kidney disease, unspecified; I12.9 Hypertensive chronic kidney disease with stage 1 through stage 4 chronic kidney disease, or unspecified chronic kidney disease; Z90.49 Acquired absence of other specified parts of digestive tract; Z98.890 Other specified postprocedural states; Z86.14 Personal history of Methicillin resistant Staphylococcus aureus infection; Z87.19 Personal history of other diseases of the digestive system; Z88.2 Allergy status to sulfonamides; Z88.8 Allergy status to other drugs, medicaments and biological substances; Z88.0 Allergy status to penicillin; Z88.1 Allergy status to other antibiotic agents; Z88.5 Allergy status to narcotic agent; Z79.899 Other long term (current) 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; Z79.2 Long term (current) use of antibiotics; Z79.4 Long term (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; Z11.52 Encounter for screening for COVID-19
CPT/HCPCS: 36415; 80048; 80053; 81001; 82010; 82803; 83605; 83690; 84703; 85025; 87070; 87075; 87205; 87502; 96361; 96374; 96375; 96376; 99285-25; A9270; C9803; J1200; J1815; J2270; J7030; U0002

== ENCOUNTER 2023-10-29 20:50 | Emergency (ER) | payer OTHER ==
[~2023-10-29] VITALS: Ht 149.9 cm; Wt 37.7 kg
[2023-10-29] MEDS ORDERED: ondansetron HCL 4 MG/2 ML VIAL IV ONE (21:30)
[2023-10-29 21:40] LABS: BASOPHILS 0.6 % (0-2); EOSINOPHILS 2.2 % (0-6); HEMOGLOBIN 9.2 g/dL (12.0-18.0); LYMPHOCYTES 32.2 % (24-44); MCH 29.3 (27-36); MCHC 32.7 g/dl (30-36); MCV 89.4 fl (81-99); MONOCYTES 7.2 % (0-12); NEUTROPHILS 57.8 % (39-80); PLATELET COUNT 457 K/uL (140-440); RBC 3.13 M/ul (4.3-5.7); RDW 16.1 (10.5-15.0)
[2023-10-29 21:54] LABS: ALBUMIN 3.3 g/dL (3.4-5.0); ALBUMIN/GLOBULIN RATIO 0.73 (1.1-2.4); BILIRUBIN, TOTAL 0.2 ng/dL (0.2-1.0); BUN/CREATININE RATIO 21.56 (6.0-28.6); CALCIUM 9.2 mg/dL (8.5-10.1); CREATININE, SERUM 2.04 mg/dL (0.55-1.02); PROTEIN, TOTAL 7.8 g/dL (6.4-8.2)
[2023-10-29 21:57] LABS: BILIRUBIN, URINE NEGATIVE (negative); BLOOD/HGB, URINE TRACE-L (Negative); KETONE, URINE NEGATIVE (Negative); LEUK ESTERASE, URINE NEGATIVE (negative); NITRITE, URINE NEGATIVE (negative); PH, URINE 6.5 (5-7)
[2023-10-29 22:02] LABS: EPITHELIAL CELLS, URINE SQUAMOUS 2+ /lpf (0-1+)
[2023-10-29 22:03] LABS: BACTERIA, URINE RARE /hpf (negative); CRYSTALS, URINE NONE SEEN (0-1+)
[2023-10-29 22:04] LABS: CASTS, URINE NONE SEEN \\lpf; REFLEX CULTURE, URINE No (No)
[2023-10-29] MEDS ORDERED: ACETAMINOPHEN 500 MG TAB PO ONE ×2 (22:45→23:15)
[2023-10-29] MEDS ORDERED: hydrOXYzine pamoate 50 MG CAP PO ONE (23:30)
[2023-10-29] MEDS ORDERED: LACTATED RINGER'S 1,000 ML IV ONE (23:45)
[2023-10-29 23:58] VITALS: BP 156/104
== END 2023-10-29 23:58 | disposition home or self-care (01) ==
LOC: ED 20:50
PROVIDERS: Internal Medicine
DX: R10.10 Upper abdominal pain, unspecified (principal); R79.89 Other specified abnormal findings of blood chemistry; F41.9 Anxiety disorder, unspecified; I12.9 Hypertensive chronic kidney disease with stage 1 through stage 4 chronic kidney disease, or unspecified chronic kidney disease; E10.22 Type 1 diabetes mellitus with diabetic chronic kidney disease; N18.9 Chronic kidney disease, unspecified; E78.5 Hyperlipidemia, unspecified; Z88.2 Allergy status to sulfonamides; Z88.0 Allergy status to penicillin; Z88.1 Allergy status to other antibiotic agents; Z88.5 Allergy status to narcotic agent; Z88.8 Allergy status to other drugs, medicaments and biological substances; Z79.899 Other long term (current) 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; Z79.4 Long term (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
CPT/HCPCS: 36415; 76705; 80053; 81001; 83690; 83735; 84702; 84703; 85025; 96374; 99284-25; A9270; J2405

== ENCOUNTER 2023-11-12 19:26 | Emergency (ER) | payer OTHER ==
[~2023-11-12] VITALS: Ht 149.9 cm; Wt 37.6 kg
[~2023-11-12 19:26] MED LIST changes: +BUTALB-ACETAMI1 EAC2 PO
[2023-11-12] MEDS ORDERED: ondansetron HCL 4 MG/2 ML VIAL IV ONE (20:15)
[2023-11-12] MEDS ORDERED: SODIUM CHLORIDE 0.9% 1,000 ML IV SCH (20:15)
[2023-11-12 20:32] LABS: BILIRUBIN, URINE NEGATIVE (negative); BLOOD/HGB, URINE TRACE-I (Negative); KETONE, URINE TRACE (Negative); LEUK ESTERASE, URINE NEGATIVE (negative); NITRITE, URINE NEGATIVE (negative); PH, URINE 6.5 (5-7)
[2023-11-12 20:37] LABS: CRYSTALS, URINE NONE SEEN (0-1+); EPITHELIAL CELLS, URINE SQUAMOUS 2+ /lpf (0-1+)
[2023-11-12 20:38] LABS: BACTERIA, URINE RARE /hpf (negative); CASTS, URINE NONE SEEN \\lpf; REFLEX CULTURE, URINE No (No)
[2023-11-12 20:41] LABS: BASOPHILS 0.3 % (0-2); EOSINOPHILS 0.9 % (0-6); HEMOGLOBIN 8.8 g/dL (12.0-18.0); LYMPHOCYTES 20.8 % (24-44); MCH 29.2 (27-36); MCHC 31.6 g/dl (30-36); MCV 92.7 fl (81-99); MONOCYTES 7.5 % (0-12); NEUTROPHILS 70.5 % (39-80); PLATELET COUNT 349 K/uL (140-440); RBC 3.02 M/ul (4.3-5.7); RDW 16.8 (10.5-15.0)
[2023-11-12 20:58] LABS: ALBUMIN 3.1 g/dL (3.4-5.0); ALBUMIN/GLOBULIN RATIO 0.67 (1.1-2.4); ANION GAP 19.8 (7-21); BILIRUBIN, TOTAL 0.4 ng/dL (0.2-1.0); BUN/CREATININE RATIO 11.23 (6.0-28.6); CALCIUM 8.9 mg/dL (8.5-10.1); CREATININE, SERUM 2.67 mg/dL (0.55-1.02); POTASSIUM 4.8 mmol/L (3.5-5.1); PROTEIN, TOTAL 7.7 g/dL (6.4-8.2)
[2023-11-12] MEDS ORDERED: Insulin Regular, Human 100 UNIT/ML ML SUB-Q ONE (21:15)
[2023-11-12 22:13] VITALS: BP 157/99
--- NOTE | 2023-11-13 22:11 | EKG ---
[facility] [address] [place] [address] Signed Sinus tachycardia Inferior infarct , age undetermined Abnormal ECG When compared with ECG of 03-OCT-2023 00:48, No significant change was found Confirmed by Sabino Simmons MD () on 11/13/2023 10:10:59 PM Electronically Signed By: SABINO SIMMONS MD 11/13/232210 PATIENT NAME: MONTSE GUTIERREZ Electrocardiogram DATE OF : [birth year] PHYSICIAN: SABINO SIMMONS MD REPORT #: [id number] REPORT IS CONFIDENTIAL AND NOT TO BE RELEASED WITHOUT AUTHORIZATION
== END 2023-11-12 22:16 | disposition home or self-care (01) ==
LOC: ED 19:26
PROVIDERS: Emergency Medicine
DX: R10.84 Generalized abdominal pain (principal); G89.29 Other chronic pain; E10.65 Type 1 diabetes mellitus with hyperglycemia; E10.22 Type 1 diabetes mellitus with diabetic chronic kidney disease; I12.9 Hypertensive chronic kidney disease with stage 1 through stage 4 chronic kidney disease, or unspecified chronic kidney disease; N18.9 Chronic kidney disease, unspecified; E78.1 Pure hyperglyceridemia; Z79.899 Other long term (current) 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; Z88.2 Allergy status to sulfonamides; Z88.8 Allergy status to other drugs, medicaments and biological substances; Z88.0 Allergy status to penicillin; Z88.5 Allergy status to narcotic agent
CPT/HCPCS: 36415; 80053; 81001; 82010; 82800; 83690; 84703; 85025; 93005; 93010; J1815; J2405; J7030

== ENCOUNTER 2024-01-12 07:37 | Emergency (ER) | payer OTHER ==
[~2024-01-12] VITALS: Ht 149.9 cm; Wt 40.1 kg
[~2024-01-12 07:37] MED LIST changes: +ANASPAZ0.125 MG PO; +BANOPHEN25 MG PO; +CARAFATE1 GM PO; +CEPHALEXIN250 M1 PO; +CEPHALEXIN250 MG PO; +CIPROFLOXACIN2.5 M1 OD; +INSULIN GL100 UNIT/1 SUB-Q; +POTASSIUM20 MEQ/15 PO
[2024-01-12] MEDS ORDERED: DEXAMETHASONE SOD PHOS 10 MG/ML VIAL IV ONE (08:45)
[2024-01-12] MEDS ORDERED: METOCLOPRAMIDE HCL 10 MG/2 ML SDV IV ONE (08:45)
[2024-01-12] MEDS ORDERED: SODIUM CHLORIDE 0.9% 1,000 ML IV PRN (08:45)
[2024-01-12] MEDS ORDERED: diphenhydrAMINE HCL 50 MG/ML VIAL IV ONE ×2 (08:45→10:15)
[2024-01-12 08:54] LABS: BASOPHILS 0.6 % (0-2); EOSINOPHILS 1.9 % (0-6); HEMATOCRIT 27.3 % (35.0-50.0); HEMOGLOBIN 8.8 g/dL (12.0-18.0); MCH 29.7 (27-36); MCHC 32.3 g/dl (30-36); MCV 92.2 fl (81-99); NEUTROPHILS 57.5 % (39-80); PLATELET COUNT 393 K/uL (140-440); RBC 2.96 M/ul (4.3-5.7); RDW 15.3 (10.5-15.0)
[2024-01-12 09:14] LABS: ANION GAP 14.8 (7-21); BUN/CREATININE RATIO 17.91 (6.0-28.6); CALCIUM 8.6 mg/dL (8.5-10.1); CARBON DIOXIDE 20 mmol/L (21-32); CHLORIDE 105 mmol/L (98-107); CREATININE, SERUM 1.73 mg/dL (0.55-1.02); GLOMERULAR FILTRATION RATE,EST 42 mL/min (>60); POTASSIUM 3.8 mmol/L (3.5-5.1); UREA NITROGEN 31 mg/dL (7-18)
[2024-01-12 10:51] VITALS: BP 143/97
== END 2024-01-12 10:49 | disposition home or self-care (01) ==
LOC: ED 07:37
PROVIDERS: Emergency Medicine
DX: G43.909 Migraine, unspecified, not intractable, without status migrainosus (principal); G93.9 Disorder of brain, unspecified; E11.9 Type 2 diabetes mellitus without complications; I10 Essential (primary) hypertension; Z88.2 Allergy status to sulfonamides; Z88.1 Allergy status to other antibiotic agents; Z88.5 Allergy status to narcotic agent; Z88.8 Allergy status to other drugs, medicaments and biological substances; Z79.899 Other long term (current) 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; Z79.4 Long term (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
CPT/HCPCS: 36415; 70450; 80048; 84702; 85025; 96374; 96375; 96376; 99284-25; J1100; J1200; J2765; J7030

== ENCOUNTER 2024-01-29 21:03 | Emergency (ER) | payer OTHER ==
[~2024-01-29] VITALS: Ht 149.9 cm; Wt 43.3 kg
[2024-01-29 21:41] LABS: BASOPHILS 0.6 % (0-2); EOSINOPHILS 1.9 % (0-6); HEMATOCRIT 30.3 % (35.0-50.0); HEMOGLOBIN 9.9 g/dL (12.0-18.0); LYMPHOCYTES 30.9 % (24-44); MCHC 32.5 g/dl (30-36); MCV 92.1 fl (81-99); MONOCYTES 6.8 % (0-12); NEUTROPHILS 59.8 % (39-80); PLATELET COUNT 439 K/uL (140-440); RBC 3.29 M/ul (4.3-5.7); RDW 14.7 (10.5-15.0)
[2024-01-29 21:43] LABS: BILIRUBIN, URINE NEGATIVE (negative); BLOOD/HGB, URINE TRACE-L (Negative); KETONE, URINE NEGATIVE (Negative); LEUK ESTERASE, URINE NEGATIVE (negative); NITRITE, URINE NEGATIVE (negative)
[2024-01-29 21:48] LABS: BACTERIA, URINE RARE /hpf (negative); CRYSTALS, URINE NONE SEEN (0-1+); EPITHELIAL CELLS, URINE SQUAMOUS 3+ /lpf (0-1+)
[2024-01-29 21:49] LABS: CASTS, URINE NONE SEEN \\lpf; REFLEX CULTURE, URINE No (No)
[2024-01-29 21:56] LABS: ALBUMIN 3.7 g/dL (3.4-5.0); ALBUMIN/GLOBULIN RATIO 0.8 (1.1-2.4); BILIRUBIN, TOTAL 0.2 ng/dL (0.2-1.0); BUN/CREATININE RATIO 17.13 (6.0-28.6); CREATININE, SERUM 2.51 mg/dL (0.55-1.02); PROTEIN, TOTAL 8.3 g/dL (6.4-8.2)
[2024-01-29] MEDS ORDERED: FLUCONAZOLE 150 MG TAB PO ONE (22:30)
[2024-01-29] MEDS ORDERED: NITROFURANTOIN MONOHYD MACROCR 100 MG HOME.PACK PO ONE (22:30)
[2024-01-29 22:51] VITALS: BP 148/105
== END 2024-01-29 22:51 | disposition home or self-care (01) ==
LOC: ED 21:03
PROVIDERS: Family Medicine
DX: N39.0 Urinary tract infection, site not specified (principal); E11.9 Type 2 diabetes mellitus without complications; I10 Essential (primary) hypertension; Z88.2 Allergy status to sulfonamides; Z88.0 Allergy status to penicillin; Z88.1 Allergy status to other antibiotic agents; Z88.5 Allergy status to narcotic agent; Z88.8 Allergy status to other drugs, medicaments and biological substances; Z79.4 Long term (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; Z79.899 Other long term (current) 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
CPT/HCPCS: 36415; 80053; 81001; 85025; 99283

== ENCOUNTER 2024-02-16 20:42 | Emergency (ER) | payer OTHER ==
[~2024-02-16] VITALS: Ht 149.9 cm; Wt 45.0 kg
[2024-02-16] MEDS ORDERED: PANTOPRAZOLE SODIUM 40 MG TABEC PO ONE (22:00)
[2024-02-16] MEDS ORDERED: SUCRALFATE 1 GM TAB PO ONE (22:00)
[2024-02-16] MEDS ORDERED: LIDOCAINE & ANTACID 35 ML BTL PO ONE (22:00)
[2024-02-16 22:09] LABS: BASOPHILS 0.6 % (0-2); EOSINOPHILS 2.1 % (0-6); HEMOGLOBIN 9.8 g/dL (12.0-18.0); LYMPHOCYTES 35.4 % (24-44); MCH 29.4 (27-36); MCHC 32.6 g/dl (30-36); MCV 90.1 fl (81-99); MONOCYTES 8.2 % (0-12); NEUTROPHILS 53.7 % (39-80); PLATELET COUNT 374 K/uL (140-440); RBC 3.33 M/ul (4.3-5.7); RDW 14.8 (10.5-15.0)
[2024-02-16 22:23] LABS: ALBUMIN 3.4 g/dL (3.4-5.0); ALBUMIN/GLOBULIN RATIO 0.79 (1.1-2.4); ANION GAP 15.7 (7-21); BILIRUBIN, TOTAL 0.2 ng/dL (0.2-1.0); BUN/CREATININE RATIO 17.05 (6.0-28.6); CALCIUM 8.8 mg/dL (8.5-10.1); CREATININE, SERUM 2.17 mg/dL (0.55-1.02); MAGNESIUM 2.2 mg/dL (1.8-2.4); POTASSIUM 3.7 mmol/L (3.5-5.1); PROTEIN, TOTAL 7.7 g/dL (6.4-8.2)
[2024-02-16] MEDS ORDERED: PROTONIX40 MG PO (22:53)
[2024-02-16 23:01] VITALS: BP 140/95
== END 2024-02-16 23:06 | disposition home or self-care (01) ==
LOC: ED 20:42
PROVIDERS: Family Medicine
DX: K29.70 Gastritis, unspecified, without bleeding (principal); E10.9 Type 1 diabetes mellitus without complications; I10 Essential (primary) hypertension; Z88.2 Allergy status to sulfonamides; Z88.0 Allergy status to penicillin; Z88.5 Allergy status to narcotic agent; Z88.8 Allergy status to other drugs, medicaments and biological substances; Z79.4 Long term (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; Z79.899 Other long term (current) 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
CPT/HCPCS: 36415; 80053; 83735; 85025; A9270

== ENCOUNTER 2024-03-05 23:50 | Emergency (ER) | payer OTHER ==
[~2024-03-05] VITALS: Ht 149.9 cm; Wt 44.9 kg
[2024-03-06 01:22] LABS: HEMOGLOBIN 9.9 g/dL (12.0-18.0)
[2024-03-06 01:23] LABS: MCV 88.7 fl (81-99)
[2024-03-06 01:27] LABS: HEMATOCRIT 30.4 % (35.0-50.0); MCH 28.8 (27-36); MCHC 32.5 g/dl (30-36); RBC 3.43 M/ul (4.3-5.7)
[2024-03-06 01:30] LABS: BILIRUBIN, URINE NEGATIVE (negative); BLOOD/HGB, URINE TRACE-L (Negative); KETONE, URINE NEGATIVE (Negative); LEUK ESTERASE, URINE NEGATIVE (negative); NITRITE, URINE NEGATIVE (negative); PH, URINE 6.5 (5-7)
[2024-03-06] MEDS ORDERED: diphenhydrAMINE HCL 50 MG/ML VIAL IV ONE ×2 (01:30→03:00)
[2024-03-06] MEDS ORDERED: HYDROmorphone HCL 1 MG/ML SYR IV ONE (01:30)
[2024-03-06 01:39] LABS: ALBUMIN 3.6 g/dL (3.4-5.0); ALBUMIN/GLOBULIN RATIO 0.8 (1.1-2.4); ANION GAP 18.4 (7-21); BILIRUBIN, TOTAL 0.3 ng/dL (0.2-1.0); BUN/CREATININE RATIO 15.07 (6.0-28.6); CALCIUM 8.5 mg/dL (8.5-10.1); CREATININE, SERUM 2.52 mg/dL (0.55-1.02); POTASSIUM 4.4 mmol/L (3.5-5.1); PROTEIN, TOTAL 8.1 g/dL (6.4-8.2)
[2024-03-06 01:40] LABS: BACTERIA, URINE NONE SEEN /hpf (negative); CASTS, URINE NONE SEEN \\lpf; CRYSTALS, URINE NONE SEEN (0-1+); EPITHELIAL CELLS, URINE SQUAMOUS 4+ /lpf (0-1+); RED BLOOD CELLS, URINE 0-1 /hpf (0-5)
[2024-03-06 01:41] LABS: COLLECTION TYPE, URINE CLEAN CATCH; REFLEX CULTURE, URINE No (No)
[2024-03-06 01:58] LABS: BANDS, MANUAL DIFF 5; EOSINOPHILS, MANUAL DIFF 3; LYMPHOCYTES, MANUAL DIFF 38; MONOCYTES, MANUAL DIFF 3; NEUTROPHILS, MANUAL DIFF 51
[2024-03-06] MEDS ORDERED: LACTATED RINGER'S 1,000 ML IV ONE (02:30)
[2024-03-06] MEDS ORDERED: FAMOTIDINE 20 MG/ 2 ML VIAL IV ONE (03:00)
[2024-03-06 03:41] VITALS: BP 143/105
[2024-03-09] MEDS ORDERED: TOPROL XL25 MG PO (19:36)
[2024-03-09] MEDS ORDERED: PEPCID20 MG PO (19:36)
[2024-03-21] MEDS ORDERED: ALLERGY RELIEF5 M1 PO (15:10)
[2024-03-21] MEDS ORDERED: OXYCODONE HCL5 MG PO (15:10)
[2024-03-21] MEDS ORDERED: ONDANSETRON ODT4 MG PO (15:10)
[2024-03-21] MEDS ORDERED: CEPHALEXIN500 MG PO (15:14)
[2024-03-23] MEDS ORDERED: BENADRYL25 MG PO (03:25)
[2024-04-10] MEDS ORDERED: PROMETHAZINE HC25 M1 PO (10:58)
[2024-04-19] MEDS ORDERED: HYDROCODON-ACE1 EA10 PO (01:12)
[2024-04-19] MEDS ORDERED: PROMETHEGAN25 MG PR (01:12)
== END 2024-03-06 03:43 | disposition home or self-care (01) ==
LOC: ED 23:50
PROVIDERS: Internal Medicine
DX: R10.31 Right lower quadrant pain (principal); R11.2 Nausea with vomiting, unspecified; N92.6 Irregular menstruation, unspecified; I12.9 Hypertensive chronic kidney disease with stage 1 through stage 4 chronic kidney disease, or unspecified chronic kidney disease; E11.22 Type 2 diabetes mellitus with diabetic chronic kidney disease; N18.9 Chronic kidney disease, unspecified; E78.5 Hyperlipidemia, unspecified; Z88.2 Allergy status to sulfonamides; Z88.8 Allergy status to other drugs, medicaments and biological substances; Z88.0 Allergy status to penicillin; Z88.1 Allergy status to other antibiotic agents; Z88.5 Allergy status to narcotic agent; Z79.4 Long term (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; Z79.899 Other long term (current) 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
CPT/HCPCS: 36415; 80053; 81001; 82010; 83690; 84703; 85025; 96361; 96374; 96375; 96376; 99284-25; J1170; J1200; J7121

== ENCOUNTER 2024-03-11 23:04 | Emergency (ER) | payer OTHER ==
[~2024-03-11] VITALS: Ht 149.9 cm; Wt 45.0 kg
[2024-03-11] MEDS ORDERED: FAMOTIDINE 20 MG/ 2 ML VIAL IV ONE (23:30)
[2024-03-11] MEDS ORDERED: ASPIRIN 81 MG CHEW PO ONE (23:30)
[2024-03-11 23:45] LABS: BASOPHILS 0.6 % (0-2); EOSINOPHILS 2.8 % (0-6); HEMOGLOBIN 9.9 g/dL (12.0-18.0); LYMPHOCYTES 39.7 % (24-44); MCH 28.2 (27-36); MCHC 32.1 g/dl (30-36); MONOCYTES 9.9 % (0-12); PLATELET COUNT 379 K/uL (140-440); RBC 3.52 M/ul (4.3-5.7); RDW 14.7 (10.5-15.0)
[2024-03-11] MEDS ORDERED: ondansetron HCL 4 MG/2 ML VIAL IV ONE (23:45)
[2024-03-12 00:03] LABS: ALBUMIN 3.6 g/dL (3.4-5.0); ALBUMIN/GLOBULIN RATIO 0.82 (1.1-2.4); ANION GAP 17.9 (7-21); BILIRUBIN, TOTAL 0.2 ng/dL (0.2-1.0); BUN/CREATININE RATIO 13.86 (6.0-28.6); CALCIUM 8.9 mg/dL (8.5-10.1); CREATININE, SERUM 2.38 mg/dL (0.55-1.02); POTASSIUM 3.9 mmol/L (3.5-5.1)
[2024-03-12] MEDS ORDERED: LACTATED RINGER'S 1,000 ML IV ONE (00:15)
[2024-03-12] MEDS ORDERED: LIDOCAINE & ANTACID 35 ML BTL PO ONE (01:00)
[2024-03-12 01:36] VITALS: BP 140/94
--- NOTE | 2024-03-13 23:18 | EKG ---
[facility] [address] [facility] [place] [address] Signed Sinus tachycardia Inferior infarct (cited on or before 06-JUL-2023) Abnormal ECG When compared with ECG of 12-NOV-2023 19:35, No significant change was found Confirmed by Sabino Simmons MD () on 03/13/2024 11:18:12 PM Electronically Signed By: SABINO SIMMONS MD 03/13/24 2318 PATIENT NAME: MONTSE GUTIERREZ Electrocardiogram DATE OF : [birth year] PHYSICIAN: SABINO SIMMONS MD REPORT #: [id number] REPORT IS CONFIDENTIAL AND NOT TO BE RELEASED WITHOUT AUTHORIZATION
== END 2024-03-12 01:40 | disposition home or self-care (01) ==
LOC: ED 23:04
PROVIDERS: Internal Medicine
DX: R07.2 Precordial pain (principal); K21.9 Gastro-esophageal reflux disease without esophagitis; E11.9 Type 2 diabetes mellitus without complications; I10 Essential (primary) hypertension; Z88.2 Allergy status to sulfonamides; Z88.0 Allergy status to penicillin; Z88.1 Allergy status to other antibiotic agents; Z88.5 Allergy status to narcotic agent; Z88.8 Allergy status to other drugs, medicaments and biological substances; Z79.4 Long term (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; Z79.899 Other long term (current) 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
CPT/HCPCS: 36415; 71045; 80053; 83690; 84484; 85025; 93005; 93010; 96374; 96375; 99285; A9270; J2405; J7121

== ENCOUNTER 2024-03-16 14:41 | Emergency (ER) | payer OTHER ==
[~2024-03-16] VITALS: Ht 149.9 cm; Wt 42.8 kg
[2024-03-16] MEDS ORDERED: METOCLOPRAMIDE HCL 10 MG/2 ML SDV IV ONE (16:15)
[2024-03-16] MEDS ORDERED: SODIUM CHLORIDE 0.9% 1,000 ML IV PRN (16:15)
[2024-03-16] MEDS ORDERED: diphenhydrAMINE HCL 50 MG/ML VIAL IV ONE ×2 (16:15→17:00)
[2024-03-16] MEDS ORDERED: DEXAMETHASONE SOD PHOS 10 MG/ML VIAL IV ONE (16:15)
[2024-03-16 16:33] LABS: BASOPHILS 1.5 % (0-2); EOSINOPHILS 2.2 % (0-6); HEMATOCRIT 32.4 % (35.0-50.0); HEMOGLOBIN 10.9 g/dL (12.0-18.0); LYMPHOCYTES 34.4 % (24-44); MCH 28.9 (27-36); MCHC 33.5 g/dl (30-36); MCV 86.4 fl (81-99); MONOCYTES 10.8 % (0-12); NEUTROPHILS 51.1 % (39-80); PLATELET COUNT 408 K/uL (140-440); RBC 3.75 M/ul (4.3-5.7); RDW 14.4 (10.5-15.0)
[2024-03-16 16:53] LABS: ALBUMIN 3.8 g/dL (3.4-5.0); ALBUMIN/GLOBULIN RATIO 0.76 (1.1-2.4); ANION GAP 16.2 (7-21); BILIRUBIN, TOTAL 0.2 ng/dL (0.2-1.0); BUN/CREATININE RATIO 15.9 (6.0-28.6); CALCIUM 9.5 mg/dL (8.5-10.1); CREATININE, SERUM 2.2 mg/dL (0.55-1.02); POTASSIUM 4.2 mmol/L (3.5-5.1); PROTEIN, TOTAL 8.8 g/dL (6.4-8.2)
[2024-03-16 17:20] VITALS: BP 155/105
[2024-03-17] MEDS ORDERED: IMITREX25 MG PO (02:18)
== END 2024-03-16 17:20 | disposition home or self-care (01) ==
LOC: ED 14:41
PROVIDERS: Emergency Medicine
DX: G43.909 Migraine, unspecified, not intractable, without status migrainosus (principal); G93.9 Disorder of brain, unspecified; I12.9 Hypertensive chronic kidney disease with stage 1 through stage 4 chronic kidney disease, or unspecified chronic kidney disease; E11.22 Type 2 diabetes mellitus with diabetic chronic kidney disease; N18.9 Chronic kidney disease, unspecified; Z88.1 Allergy status to other antibiotic agents; Z88.2 Allergy status to sulfonamides; Z88.5 Allergy status to narcotic agent; Z88.8 Allergy status to other drugs, medicaments and biological substances; Z79.899 Other long term (current) 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; Z79.4 Long term (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
CPT/HCPCS: 36415; 70450; 80053; 84703; 85025; 96374; 96375; 96376; 99284-25; J1100; J1200; J2765; J7030

== ENCOUNTER 2024-03-17 00:27 | Emergency (ER) | payer OTHER ==
[~2024-03-17] VITALS: Ht 149.9 cm; Wt 44.4 kg
[2024-03-17] MEDS ORDERED: METOCLOPRAMIDE HCL 10 MG/2 ML SDV IV ONE (01:00)
[2024-03-17] MEDS ORDERED: LACTATED RINGER'S 1,000 ML IV ONE (01:15)
[2024-03-17] MEDS ORDERED: SUMAtriptan succinate 6 MG/0.5 ML VIAL SUB-Q ONE (01:15)
[2024-03-17] MEDS ORDERED: diphenhydrAMINE HCL 50 MG/ML VIAL IV ONE ×2 (01:15→02:15)
[2024-03-17 01:20] LABS: BASOPHILS 0.5 % (0-2); EOSINOPHILS 0.1 % (0-6); HEMATOCRIT 31.6 % (35.0-50.0); HEMOGLOBIN 10.1 g/dL (12.0-18.0); LYMPHOCYTES 19.7 % (24-44); MCH 28.3 (27-36); MCV 88.3 fl (81-99); MONOCYTES 1.3 % (0-12); NEUTROPHILS 78.4 % (39-80); PLATELET COUNT 368 K/uL (140-440); RBC 3.58 M/ul (4.3-5.7); RDW 14.6 (10.5-15.0)
[2024-03-17 01:38] LABS: ALBUMIN 3.3 g/dL (3.4-5.0); ALBUMIN/GLOBULIN RATIO 0.69 (1.1-2.4); ANION GAP 19.9 (7-21); BILIRUBIN, TOTAL 0.3 ng/dL (0.2-1.0); BUN/CREATININE RATIO 11.68 (6.0-28.6); CALCIUM 9.1 mg/dL (8.5-10.1); CREATININE, SERUM 2.91 mg/dL (0.55-1.02); MAGNESIUM 1.7 mg/dL (1.8-2.4); POTASSIUM 3.9 mmol/L (3.5-5.1); PROTEIN, TOTAL 8.1 g/dL (6.4-8.2)
[2024-03-17] MEDS ORDERED: MAGNESIUM OXIDE 400 MG TABLET PO ONE (02:15)
[2024-03-17] MEDS ORDERED: IMITREX25 MG PO (02:18)
[2024-03-17] MEDS ORDERED: ondansetron HCL 4 MG/2 ML VIAL IV ONE (02:30)
[2024-03-17] MEDS ORDERED: METOPROLOL TARTRATE 5 MG/5 ML VIAL IV ONE (02:30)
[2024-03-17 02:50] VITALS: BP 179/117
== END 2024-03-17 03:10 | disposition home or self-care (01) ==
LOC: ED 00:27
PROVIDERS: Family Medicine
DX: G43.909 Migraine, unspecified, not intractable, without status migrainosus (principal); E11.22 Type 2 diabetes mellitus with diabetic chronic kidney disease; I12.9 Hypertensive chronic kidney disease with stage 1 through stage 4 chronic kidney disease, or unspecified chronic kidney disease; N18.9 Chronic kidney disease, unspecified; E78.5 Hyperlipidemia, unspecified; Z79.4 Long term (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; Z79.899 Other long term (current) 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; Z88.2 Allergy status to sulfonamides; Z88.0 Allergy status to penicillin; Z88.5 Allergy status to narcotic agent; Z88.1 Allergy status to other antibiotic agents
CPT/HCPCS: 36415; 80053; 83735; 85025; 96374; 96375; 96376; 99283-25; J1200; J2405; J2765; J3030; J7121

== ENCOUNTER 2024-03-19 01:07 | Emergency (ER) | payer OTHER ==
[~2024-03-19] VITALS: Ht 149.9 cm; Wt 44.0 kg
[~2024-03-19 01:07] MED LIST changes: +IMITREX25 MG PO
[2024-03-19] MEDS ORDERED: LIDOCAINE & ANTACID 35 ML BTL PO ONE (01:30)
[2024-03-19] MEDS ORDERED: PANTOPRAZOLE SODIUM 40 MG TABEC PO ONE (01:30)
[2024-03-19] MEDS ORDERED: SUCRALFATE 1 GM TAB PO ONE (01:30)
[2024-03-19] MEDS ORDERED: FAMOTIDINE 20 MG TAB PO ONE (01:30)
[2024-03-19] MEDS ORDERED: BUTALB-ACETAMI1 EAC2 PO (02:16)
[2024-03-19] MEDS ORDERED: PEPCID20 MG PO (02:16)
[2024-03-19] MEDS ORDERED: ACETAMINOPHEN/CAFFEINE/BUTALB 1 TAB TABLET PO ONE (02:30)
[2024-03-19 02:54] VITALS: BP 148/100
--- NOTE | 2024-03-19 07:35 | EKG ---
[facility] [address] [facility] [place] [address] Signed Sinus tachycardia Minimal voltage criteria for LVH, may be normal variant ( R in aVL ) Inferior infarct (cited on or before 06-JUL-2023) Abnormal ECG When compared with ECG of 11-MAR-2024 23:07, No significant change was found Confirmed by Daniel Morales MD ([id number]) on 03/19/2024 7:35:42 AM Electronically Signed By: DANIEL MORALES 03/19/24 0735 PATIENT NAME: MONTSE GUTIERREZ Electrocardiogram DATE OF : [birth year] PHYSICIAN: DANIEL MORALES REPORT #: [id number] REPORT IS CONFIDENTIAL AND NOT TO BE RELEASED WITHOUT AUTHORIZATION
[2024-03-21] MEDS ORDERED: ALLERGY RELIEF5 M1 PO (15:10)
[2024-03-21] MEDS ORDERED: OXYCODONE HCL5 MG PO (15:10)
[2024-03-21] MEDS ORDERED: ONDANSETRON ODT4 MG PO (15:10)
[2024-03-21] MEDS ORDERED: CEPHALEXIN500 MG PO (15:14)
[2024-03-23] MEDS ORDERED: BENADRYL25 MG PO (03:25)
[2024-04-10] MEDS ORDERED: PROMETHAZINE HC25 M1 PO (10:58)
[2024-04-19] MEDS ORDERED: PROMETHEGAN25 MG PR (01:12)
[2024-04-19] MEDS ORDERED: HYDROCODON-ACE1 EA10 PO (01:12)
[2024-05-28] MEDS ORDERED: ALLERGY MEDICAT25 MG PO (23:04)
[2024-05-30] MEDS ORDERED: LEVSIN0.125 MG PO (19:36)
== END 2024-03-19 02:54 | disposition home or self-care (01) ==
LOC: ED 01:07
DX: K21.9 Gastro-esophageal reflux disease without esophagitis (principal); I12.9 Hypertensive chronic kidney disease with stage 1 through stage 4 chronic kidney disease, or unspecified chronic kidney disease; E11.22 Type 2 diabetes mellitus with diabetic chronic kidney disease; N18.9 Chronic kidney disease, unspecified; Z88.2 Allergy status to sulfonamides; Z88.8 Allergy status to other drugs, medicaments and biological substances; Z88.0 Allergy status to penicillin; Z88.5 Allergy status to narcotic agent; Z88.1 Allergy status to other antibiotic agents; Z79.4 Long term (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; Z79.899 Other long term (current) 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
CPT/HCPCS: 93005; 93010; 99285; A9270

== ENCOUNTER 2024-03-19 14:00 | Inpatient (IN) | payer OTHER ==
[~2024-03-19] VITALS: Ht 149.9 cm; Wt 42.9 kg
[2024-03-19] MEDS ORDERED: INSULIN REGULAR IN 0.9 % NACL 100 ML IV SCH (14:15)
[2024-03-19] MEDS ORDERED: SODIUM CHLORIDE 0.9% 1,000 ML IV ONE (14:15)
[2024-03-19 15:00] LABS: PH, VENOUS 7.311 (7.31-7.41)
[2024-03-19 15:03] LABS: BASOPHILS 0.4 % (0-2); HEMOGLOBIN 9.1 g/dL (12.0-18.0)
[2024-03-19 15:06] LABS: LYMPHOCYTES 20.9 % (24-44); MCH 28.3 (27-36); MCHC 31.2 g/dl (30-36); MCV 90.5 fl (81-99); MONOCYTES 9.8 % (0-12); NEUTROPHILS 67.9 % (39-80); PLATELET COUNT 370 K/uL (140-440); RDW 14.8 (10.5-15.0)
[2024-03-19] MEDS ORDERED: diphenhydrAMINE HCL 50 MG/ML VIAL IV ONE (15:15)
[2024-03-19] MEDS ORDERED: HYDROmorphone HCL 1 MG/ML SYR IV ONE ×2 (15:15→17:30)
[2024-03-19 15:18] LABS: ALBUMIN 3.3 g/dL (3.4-5.0); ALBUMIN/GLOBULIN RATIO 0.8 (1.1-2.4); ANION GAP 16.6 (7-21); BILIRUBIN, TOTAL 0.4 ng/dL (0.2-1.0); BUN/CREATININE RATIO 16.66 (6.0-28.6); CREATININE, SERUM 2.52 mg/dL (0.55-1.02); POTASSIUM 4.6 mmol/L (3.5-5.1); PROTEIN, TOTAL 7.4 g/dL (6.4-8.2)
[2024-03-19 18:35] VITALS: BP 177/109
[2024-03-19] MEDS ORDERED: SODIUM CHLORIDE 0.9% 1,000 ML IV SCH (18:45)
--- NOTE | 2024-03-19 18:56 | NUR ---
PATIENT ARRIVED TO CCU ROOM 130 AND TRANSFERED TO BED WITH SUPERVISOR DRY PASTE. PATIENT REPORTS NAUSEA ON ARRIVAL. PER MD STOP INSULIN GTT ON ARRIVAL, GIVE 1L BOLUS, AND DO A REPEAT BMP AFTER BOLUS IS FINISHED. PATIENT HAS LIMITED IV ACCESS AND HAS BEEN POKED MULTIPLE TIMES. PATIENT CURRENTLY HAS A 22G IN UNDERSIDE OF WRIST. PATIENT BOLUS STARTED AT 200MLS/HR. PATIENT DENIES PAIN WITH ADMINISTRATION, INCREASED RATE TO 300MLS/HR. PATIENTS BI=OLUS WAS STARTED IN ED PRIOR TO ARRIVAL AND HAS APPROX HALF LEFT TO GIVE. BS CHECKED AT THIS TIME AND NOTED TO BE 296. PATIENT REPORTS ITCHINESS ON ARRIVAL. PATIENT HAD 50MG OF BENEDRYL IN ED AND IS NOT DUE FOR MORE AT THIS TIME. PATIENT REPORTS ABD PAIN. NO ORDERS FOR PAIN MANAGEMENT. WILL UPDATE MD. PATIENT REQUESTING WATER. PATIENTS SIGNIFICANT OTHER AT THE BEDSIDE.
--- NOTE | 2024-03-19 19:30 | NUR ---
REPORT RECEIVED FROM KIMBERLY RUDD. PT IS AWAKE IN BED ON HER PHONE, IN ROOM ALSO. IVF INFUSING AT 300ML/HR, IV SITE INTACT. WENT OVER PLAN TO DRAW LABS WHEN BOLUS IS COMPLETED, PT AWARE. C/O NAUSEA AT THIS TIME, NO ORDERS AT THIS TIME, WILL UPDATE MD.
--- NOTE | 2024-03-19 20:42 | NUR ---
CALLED DUE TO PATIENT REPORTING PAIN 10/10 IN LEFT ABD. DISCUSSED WITH THAT PATIENT HAS BEEN ASKING FOR BENEDRYL AND THERE IS ALSO NO MEDICATION ON MAR FOR NAUSEA IF SHE SHOULD HAVE NAUSEA IN THE NIGHT. NEW ORDERS FOR PAIN MEDICATION AND NAUSEA MEDICATION. NO ORDERS FOR PRURITUS. THIS IS NOT HER MAIN COMPLAINT AT THIS TIME.
[2024-03-19] MEDS ORDERED: ondansetron HCL 4 MG/2 ML VIAL IV PRN (20:45)
[2024-03-19] MEDS ORDERED: MORPHINE SULFATE 4 MG/ML VIAL IV PRN (20:45)
--- NOTE | 2024-03-19 21:22 | NUR ---
PT GIVEN MORPHINE 2MG IV FOR 9/10 ABD PAIN WITH 8MG IV ZOFRAN. IVF BOLUS IS COMPLETED, LAB IN TO DRAW BMP.
[2024-03-19 21:57] LABS: ANION GAP 15.5 (7-21); BUN/CREATININE RATIO 18.26 (6.0-28.6); CALCIUM 7.8 mg/dL (8.5-10.1); CREATININE, SERUM 2.08 mg/dL (0.55-1.02); POTASSIUM 4.5 mmol/L (3.5-5.1)
--- NOTE | 2024-03-19 22:00 | NUR ---
IN TO CHECK ON PT, SHE STATES HER PAIN IS UNCHANGED 05/25.
--- NOTE | 2024-03-19 22:10 | NUR ---
PT CALLS TO STATE HER PAIN IS STILL 9/10, CONT TO HAVE NAUSEA AND ITCHING. DR MORALES UPDATED ON PTS REQUEST FOR MORE MEDICATIONS AND HE STATES HE STATES PLAN FOR THE NIGHT IS NO NEW ORDERS FOR MEDS OR NAUSEA. ALSO UPDTED ON RECENT LABS AND NEW ORDERS GIVEN FOR INSULIN DRIP, IVF, NPO AND RECHECK BMP Q4H.
--- NOTE | 2024-03-19 22:30 | NUR ---
IN TO UPDATE PT ON NO NEW MED ORDERS, SHE C/O ITCHINESS, INFORMED HER THERE IS NO MEDICATION AVAILABLE AT THIS TIME PER EMAR. PT THEN CALLED ABOUT 15 MINUTES LATER AND SAID "I'M JUST GOING TO GO HOME. I'M TOO ITCHY AND RESTLESS AND I CAN'T SLEEP." THIS RN HAD DISCUSSION WITH PT ABOUT PLAN OF CARE, INSULIN DRIP AND HER LABS AND BLOOD SUGARS AND SHE CONT TO SAY SHE IS GOING TO GO HOME. MD WAS CALLED AND UPDATED BY ANIMAL HUSBANDRY TEACHER, MD GAVE ORDER FOR PO BENADRYL AND TO HAVE PT SIGN AMA PAPERWORK IF SHE DOES DECIDE TO LEAVE.
[2024-03-19] MEDS ORDERED: diphenhydrAMINE HCL 25 MG CAP PO PRN (22:45)
--- NOTE | 2024-03-19 23:30 | NUR ---
UPDATED PT ON NEW ORDER FOR BENADRYL PO, STATES SHE DOES WANT IT, WILL NOT GO HOME AT THIS POINT. MED GIVEN, INSULIN DRIP STARTED AT 2.5 UNITS/HR. PT THEN LIED BACK DOWN TO TRY TO SLEEP, IS IN BED WITH HER.
[2024-03-20] VITALS (7 sets, daily range): BP systolic 106–141; BP diastolic 75–105
[2024-03-20] MEDS ORDERED: IBLOOD GLUCOSE TEST STRIP 1 EA TEST VI SCH (01:00)
--- NOTE | 2024-03-20 01:33 | NUR ---
IN TO CHECK BLOOD SUGAR, 434. PT STATES HER PAIN IS STILL THERE AND ASKS FOR PAIN MEDICATION, REMINDED HER THAT IT IS TOO EARLY, SHE TURNS OVER AND CLOSES HER EYES.
--- NOTE | 2024-03-20 02:04 | NUR ---
CALL LIGHT ACTIVITATED, THIS RN INTO PATIENT ROOM, PATIENT RESTING IN BED EYES CLOSED, RELAXED POSITION, SPOUSE IN PATIENT BED ALSO SAID, "OH, I ACCIDENTLY PUSHED IT, MY BAD" THIS RN SAID "OK" AND LEFT ROOM. CALL LIGHT AGAIN ACTIVITATED, THIS TIME PATIENT NOW AWAKE REQUESTS PAIN MEDICATION, THIS RN EXPLAINED NOT AVAILABLE YET, PATIENT NODDED, THIS RN LEFT THE ROOM, CALL LIGHT ACTIVITED AGAIN, THIS RN INTO ROOM, PATIENTS SPOUSE SAID "THAT WAS ME, BY ACCIDENT"
--- NOTE | 2024-03-20 03:05 | NUR ---
IN FOR IV ALARM, PT STATES HER PAIN IS COMING BACK AND REQUESTS PAIN MEDICATION, REMINDED HER THAT IT IS TOO EARLY PER MD ORDERS.
--- NOTE | 2024-03-20 03:20 | NUR ---
IN TO CHECK BLOOD SUGAR, PT ASKS FOR PAIN MEDICATION, 2MG IV MORPHINE GIVEN FOR 8/10 ABDOMINAL PAIN. NO FURTHER REQUESTS. INSULIN DRIP AND IVF INFUSING.
--- NOTE | 2024-03-20 04:30 | NUR ---
IN TO CHECK BLOOD SUGAR, PT ASKS FOR PAIN MEDICATION AGAIN. LAB IN TO DRAW.
[2024-03-20 05:08] LABS: ANION GAP 15.9 (7-21); BUN/CREATININE RATIO 19.02 (6.0-28.6); CALCIUM 8.5 mg/dL (8.5-10.1); CREATININE, SERUM 2.05 mg/dL (0.55-1.02); POTASSIUM 3.9 mmol/L (3.5-5.1)
[2024-03-20 05:38] LABS: BASOPHILS 0.3 % (0-2); EOSINOPHILS 0.8 % (0-6); HEMATOCRIT 27.2 % (35.0-50.0); HEMOGLOBIN 8.9 g/dL (12.0-18.0); LYMPHOCYTES 26.1 % (24-44); MCH 28.7 (27-36); MCHC 32.9 g/dl (30-36); MCV 87.2 fl (81-99); MONOCYTES 7.2 % (0-12); NEUTROPHILS 65.6 % (39-80); PLATELET COUNT 355 K/uL (140-440); RBC 3.12 M/ul (4.3-5.7); RDW 14.2 (10.5-15.0)
--- NOTE | 2024-03-20 06:33 | NUR ---
PT AWAKENS FOR BLOOD SUGAR CHECK, ASKS IF SHE CAN EAT, REMINDED HER OF NPO, BACK TO SLEEP WITH IN BED. INSULIN DRIP INFUSING, IVF INFUSING. RESTING HR 100'S.
[2024-03-20] MEDS ORDERED: DEXTROSE 5% - NACL 0.9% 1,000 ML IV SCH (06:45)
[2024-03-20] MEDS ORDERED: GLUCAGON,HUMAN RECOMBINANT 1 MG/ML VIAL SUB-Q PRN (07:45)
[2024-03-20] MEDS ORDERED: IBLOOD GLUCOSE TEST STRIP 1 EA TEST XX PRN (07:45)
[2024-03-20] MEDS ORDERED: DEXTROSE 50% 50 ML SYR IV PRN ×2 (07:45)
[2024-03-20] MEDS ORDERED: DEXTROSE 5% 1,000 ML IV PRN (07:45)
--- NOTE | 2024-03-20 07:45 | NUR ---
REPORT RECIEVED FROM TIRE MOLD TESTER RN. PATIENT SLEEPING IN BED WITH AT THIS TIME. PATIENT ON INSULIN GTT PER MD DO BLOOD SUGAR CHECKS Q2 HRS.
--- NOTE | 2024-03-20 09:15 | NUR ---
THIS RN IN TO DISCUSS PLAN OF CARE WITH PATIENT. PATIENT SLEEPING IN BED WITH SIGNIFICANT OTHER. THIS RN IN TO DISCUSS MEDICATIONS. MD WOULD LIKE TO GIVE HOME DOSE OF LONG ACTING INSULIN AND STOP INSULIN GTT AT THSI TIME. PER PATIENT SHE DOESNT TAKE ANY LONG ACTING INSULIN AT HOME. PATIENT STATES "I JUST USE MY PUMP AND MY IS GOING TO GO GRAB MY SUPPLIES". EDUCATED PATIENT WE NEED TO GET INSULIN GTT OFF AND PATIENT CAN HAVE BREAKFAST AND REQUESTED PATIENTS TO GET SUPPLIES SO PATIENT CAN PREPARE FOR DISCHARGE.
--- NOTE | 2024-03-20 09:25 | NUR ---
PATIENT CALLED AND REPORTED HAVING SOME ABD PAIN. PER MD NO NARCOTICS TO BE ADMINISTERED PATIENT TO DC. NEW ORDER FOR TYLENOL DOSE AT THIS TIME.
[2024-03-20] MEDS ORDERED: ACETAMINOPHEN 500 MG TAB PO ONE (09:45)
--- NOTE | 2024-03-20 10:30 | NUR ---
PATIENTS BACK AND ASSISTED PATIENT TO TRANSITIONTO HOME INSULIN PUMP AND MONITOR. INSULIN GTT WAS DCD AT THAT TIME. BREAKFAST PROVIDED. PATIENT CALLED THE KITCHEN FOR A DIFFERENT BREKFAST AND IS NOW EATING IT. PATIENT SITITNG AT EDGE OF BED. NO NEEDS AT THIS TIME.
--- NOTE | 2024-03-20 11:15 | NUR ---
PATIENT TOLERATED BREKFAST WELL WITH NO NAUSEA. PATIENT IV DCD AND PATIENT READY FOR DISCHARGE.
[2024-03-20] MEDS ORDERED: PHARMACY RENAL DOSE ADJUSTMENT 1 DOSE MISC PO SCH (12:00)
[2024-03-21] MEDS ORDERED: OXYCODONE HCL5 MG PO (15:10)
[2024-03-21] MEDS ORDERED: ALLERGY RELIEF5 M1 PO (15:10)
[2024-03-21] MEDS ORDERED: ONDANSETRON ODT4 MG PO (15:10)
[2024-03-21] MEDS ORDERED: CEPHALEXIN500 MG PO (15:14)
[2024-03-23] MEDS ORDERED: BENADRYL25 MG PO (03:25)
== END 2024-03-20 11:25 | disposition home or self-care (01) | DRG 637 ==
LOC: ED 14:00 → CCU 17:35
PROVIDERS: Emergency Medicine; ADMIT Internal Medicine; ATTEND Internal Medicine
DX: E11.10 Type 2 diabetes mellitus with ketoacidosis without coma (principal); K85.90 Acute pancreatitis without necrosis or infection, unspecified; E87.1 Hypo-osmolality and hyponatremia; N17.9 Acute kidney failure, unspecified; N18.9 Chronic kidney disease, unspecified; E11.22 Type 2 diabetes mellitus with diabetic chronic kidney disease; E78.5 Hyperlipidemia, unspecified; I12.9 Hypertensive chronic kidney disease with stage 1 through stage 4 chronic kidney disease, or unspecified chronic kidney disease; E86.9 Volume depletion, unspecified; Z90.49 Acquired absence of other specified parts of digestive tract; Z98.890 Other specified postprocedural states; Z86.14 Personal history of Methicillin resistant Staphylococcus aureus infection; Z88.2 Allergy status to sulfonamides; Z88.0 Allergy status to penicillin; Z88.1 Allergy status to other antibiotic agents; Z88.8 Allergy status to other drugs, medicaments and biological substances; Z79.899 Other long term (current) 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; Z79.4 Long term (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
CPT/HCPCS: 36415; 80048; 80053; 82803; 83690; 85025; A9270; J1170; J1200; J1815; J2270; J2405; J7030

== ENCOUNTER 2024-03-25 22:04 | Emergency (ER) | payer OTHER ==
[~2024-03-25] VITALS: Ht 149.9 cm; Wt 44.0 kg
[~2024-03-25 22:04] MED LIST changes: +ALLERGY RELIEF5 M1 PO
[2024-03-25] MEDS ORDERED: ondansetron HCL 4 MG/2 ML VIAL IV ONE (23:00)
[2024-03-25] MEDS ORDERED: ONDANSETRON 4 MG TAB ODT SL ONE (23:15)
[2024-03-25 23:28] LABS: BASOPHILS 0.3 % (0-2); EOSINOPHILS 2.3 % (0-6); HEMATOCRIT 27.6 % (35.0-50.0); HEMOGLOBIN 8.9 g/dL (12.0-18.0); MCH 28.6 (27-36); MCHC 32.5 g/dl (30-36); MCV 88.2 fl (81-99); NEUTROPHILS 50.4 % (39-80); PLATELET COUNT 438 K/uL (140-440); RBC 3.12 M/ul (4.3-5.7); RDW 14.6 (10.5-15.0)
[2024-03-25 23:39] LABS: BILIRUBIN, URINE NEGATIVE (negative); BLOOD/HGB, URINE MODERATE (Negative); KETONE, URINE NEGATIVE (Negative); LEUK ESTERASE, URINE SMALL (negative); NITRITE, URINE NEGATIVE (negative)
[2024-03-25 23:44] LABS: EPITHELIAL CELLS, URINE SQUAMOUS 3+ /lpf (0-1+)
[2024-03-25 23:45] LABS: CRYSTALS, URINE NONE SEEN (0-1+); RED BLOOD CELLS, URINE 21-40 /hpf (0-5)
[2024-03-25 23:45] LABS: ALBUMIN/GLOBULIN RATIO 0.7 (1.1-2.4); ANION GAP 15.2 (7-21); BILIRUBIN, TOTAL 0.2 ng/dL (0.2-1.0); BUN/CREATININE RATIO 12.18 (6.0-28.6); CALCIUM 8.7 mg/dL (8.5-10.1); CREATININE, SERUM 2.38 mg/dL (0.55-1.02); POTASSIUM 4.2 mmol/L (3.5-5.1); PROTEIN, TOTAL 7.3 g/dL (6.4-8.2)
[2024-03-25] MEDS ORDERED: CEPHALEXIN MONOHYDRATE 500 MG HOME.PACK PO ONE (23:45)
[2024-03-25 23:46] LABS: BACTERIA, URINE 1+ /hpf (negative); CASTS, URINE NONE SEEN \\lpf; COLLECTION TYPE, URINE CLEAN CATCH; REFLEX CULTURE, URINE No (No)
[2024-03-26 00:08] VITALS: BP 131/88
== END 2024-03-26 00:08 | disposition home or self-care (01) ==
LOC: ED 22:04
PROVIDERS: Emergency Medicine
DX: N39.0 Urinary tract infection, site not specified (principal); E11.22 Type 2 diabetes mellitus with diabetic chronic kidney disease; I12.9 Hypertensive chronic kidney disease with stage 1 through stage 4 chronic kidney disease, or unspecified chronic kidney disease; N18.9 Chronic kidney disease, unspecified; E78.5 Hyperlipidemia, unspecified; E11.10 Type 2 diabetes mellitus with ketoacidosis without coma; Z79.4 Long term (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; Z79.899 Other long term (current) 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; Z88.2 Allergy status to sulfonamides; Z88.1 Allergy status to other antibiotic agents; Z88.0 Allergy status to penicillin; Z88.6 Allergy status to analgesic agent; Z88.8 Allergy status to other drugs, medicaments and biological substances
CPT/HCPCS: 36415; 80053; 81001; 82010; 82800; 83690; 84703; 85025; 99284; A9270

== ENCOUNTER → 2024-03-31 | Emergency (ER) | payer OTHER ==
[~2024-03-31] VITALS: Ht 149.9 cm; Wt 44.2 kg
[~2024-03-31] MED LIST changes: +FAMOTIDINE 20 MG/ 2 ML VIAL IV ONE; +LACTATED RINGER'S 1,000 ML IV ONE; +SUCRALFATE 1 GM TAB PO ONE; +diphenhydrAMINE HCL 50 MG/ML VIAL IV ONE
[2024-03-31 22:34] LABS: BASOPHILS 0.4 % (0-2); EOSINOPHILS 1.8 % (0-6); HEMATOCRIT 26.9 % (35.0-50.0); HEMOGLOBIN 8.8 g/dL (12.0-18.0); LYMPHOCYTES 17.8 % (24-44); MCH 28.7 (27-36); MCHC 32.6 g/dl (30-36); MCV 87.8 fl (81-99); MONOCYTES 6.7 % (0-12); NEUTROPHILS 73.3 % (39-80); PLATELET COUNT 505 K/uL (140-440); RBC 3.06 M/ul (4.3-5.7); RDW 14.6 (10.5-15.0)
[2024-03-31 22:53] LABS: ALBUMIN 3.4 g/dL (3.4-5.0); ALBUMIN/GLOBULIN RATIO 0.79 (1.1-2.4); ANION GAP 17.2 (7-21); BILIRUBIN, TOTAL 0.2 ng/dL (0.2-1.0); BUN/CREATININE RATIO 11.55 (6.0-28.6); CALCIUM 8.9 mg/dL (8.5-10.1); CREATININE, SERUM 2.77 mg/dL (0.55-1.02); POTASSIUM 4.2 mmol/L (3.5-5.1); PROTEIN, TOTAL 7.7 g/dL (6.4-8.2)
[2024-03-31 23:06] LABS: BILIRUBIN, URINE NEGATIVE (negative); BLOOD/HGB, URINE TRACE-I (Negative); KETONE, URINE TRACE (Negative); LEUK ESTERASE, URINE NEGATIVE (negative); NITRITE, URINE NEGATIVE (negative)
[2024-03-31 23:14] LABS: EPITHELIAL CELLS, URINE SQUAMOUS 2+ /lpf (0-1+)
[2024-03-31 23:15] LABS: BACTERIA, URINE 2+ /hpf (negative); CASTS, URINE NONE SEEN \\lpf; COLLECTION TYPE, URINE CLEAN CATCH; CRYSTALS, URINE NONE SEEN (0-1+); REFLEX CULTURE, URINE No (No)
[2024-03-31 23:49] VITALS: BP 151/104
--- NOTE | 2024-04-01 15:11 | EKG ---
[facility] [address] [place], [place] [address] Signed Sinus tachycardia Inferior infarct (cited on or before 06-JUL-2023) Abnormal ECG When compared with ECG of 23-MAR-2024 01:49, No significant change was found Confirmed by Ganesh Nettles ([id number]) on 04/01/2024 3:10:55 PM Electronically Signed By: GANESH NETTLES MD 04/01/24 1511 PATIENT NAME: MONTSE GUTIERREZ Electrocardiogram DATE OF : [birth year] PHYSICIAN: GANESH NETTLES MD REPORT #: [id number] REPORT IS CONFIDENTIAL AND NOT TO BE RELEASED WITHOUT AUTHORIZATION
== END ==
LOC: ED 22:02
PROVIDERS: Internal Medicine
DX: R07.89 Other chest pain (principal); K21.9 Gastro-esophageal reflux disease without esophagitis; I12.9 Hypertensive chronic kidney disease with stage 1 through stage 4 chronic kidney disease, or unspecified chronic kidney disease; E11.22 Type 2 diabetes mellitus with diabetic chronic kidney disease; N18.9 Chronic kidney disease, unspecified; Z88.2 Allergy status to sulfonamides; Z88.0 Allergy status to penicillin; Z88.1 Allergy status to other antibiotic agents; Z88.5 Allergy status to narcotic agent; Z88.8 Allergy status to other drugs, medicaments and biological substances; Z79.899 Other long term (current) 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; Z79.4 Long term (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
CPT/HCPCS: 36415; 80053; 81001; 83690; 84484; 84703; 85025; 93005; 93010; J1200; J7121

== ENCOUNTER 2024-04-02 05:09 | Emergency (ER) | payer OTHER ==
[~2024-04-02 05:09] MED LIST changes: -FAMOTIDINE 20 MG/ 2 ML VIAL IV ONE; -LACTATED RINGER'S 1,000 ML IV ONE; -SUCRALFATE 1 GM TAB PO ONE; -diphenhydrAMINE HCL 50 MG/ML VIAL IV ONE
[2024-04-02 13:26] LABS: BILIRUBIN, URINE NEGATIVE (negative); BLOOD/HGB, URINE TRACE-I (Negative); KETONE, URINE NEGATIVE (Negative); LEUK ESTERASE, URINE NEGATIVE (negative); NITRITE, URINE NEGATIVE (negative)
[2024-04-02 13:27] LABS: CRYSTALS, URINE NONE SEEN (0-1+); EPITHELIAL CELLS, URINE SQUAMOUS 4+ /lpf (0-1+); RED BLOOD CELLS, URINE 0-1 /hpf (0-5)
[2024-04-02 13:28] LABS: BACTERIA, URINE 3+ /hpf (negative); CASTS, URINE GRANULAR 1+ \\lpf; COLLECTION TYPE, URINE CLEAN CATCH; REFLEX CULTURE, URINE No (No)
[2024-04-02 14:43] LABS: N. GONORRRHOEAE BY PCR NOT DETECTED (NOT DETECT)
[2024-04-10] MEDS ORDERED: PROMETHAZINE HC25 M1 PO (10:58)
== END 2024-04-02 14:07 | disposition home or self-care (01) ==
LOC: ED 05:09
PROVIDERS: Internal Medicine
DX: N39.0 Urinary tract infection, site not specified (principal)
CPT/HCPCS: 81001; 99283

== ENCOUNTER 2024-04-15 08:50 | Emergency (ER) | payer OTHER ==
[~2024-04-15] VITALS: Ht 149.9 cm; Wt 42.1 kg
[2024-04-15] MEDS ORDERED: ondansetron HCL 4 MG/2 ML VIAL IV ONE (09:30)
[2024-04-15] MEDS ORDERED: HYDROmorphone HCL 1 MG/ML SYR IV PRN (09:30)
[2024-04-15] MEDS ORDERED: diphenhydrAMINE HCL 50 MG/ML VIAL IV ONE (09:30)
[2024-04-15] MEDS ORDERED: METOCLOPRAMIDE HCL 10 MG/2 ML SDV IV ONE (09:30)
[2024-04-15 09:53] LABS: BASOPHILS 0.5 % (0-2); EOSINOPHILS 2.6 % (0-6); HEMATOCRIT 32.7 % (35.0-50.0); HEMOGLOBIN 10.4 g/dL (12.0-18.0); LYMPHOCYTES 37.8 % (24-44); MCH 27.8 (27-36); MCHC 31.8 g/dl (30-36); MCV 87.5 fl (81-99); NEUTROPHILS 51.1 % (39-80); PLATELET COUNT 332 K/uL (140-440); RBC 3.74 M/ul (4.3-5.7)
[2024-04-15 10:17] LABS: BILIRUBIN, URINE NEGATIVE (negative); BLOOD/HGB, URINE TRACE-I (Negative); KETONE, URINE NEGATIVE (Negative); LEUK ESTERASE, URINE NEGATIVE (negative); NITRITE, URINE NEGATIVE (negative); PH, URINE 6.5 (5-7)
[2024-04-15 10:17] LABS: ALBUMIN 3.5 g/dL (3.4-5.0); ALBUMIN/GLOBULIN RATIO 0.8 (1.1-2.4); BILIRUBIN, TOTAL 0.2 ng/dL (0.2-1.0); BUN/CREATININE RATIO 13.02 (6.0-28.6); CREATININE, SERUM 2.38 mg/dL (0.55-1.02); PROTEIN, TOTAL 7.9 g/dL (6.4-8.2)
[2024-04-15 10:26] LABS: BACTERIA, URINE NONE SEEN /hpf (negative); CASTS, URINE NONE SEEN \\lpf; COLLECTION TYPE, URINE CLEAN CATCH; CRYSTALS, URINE NONE SEEN (0-1+); EPITHELIAL CELLS, URINE SQUAMOUS 2+ /lpf (0-1+); RED BLOOD CELLS, URINE 0-1 /hpf (0-5)
[2024-04-15 10:27] LABS: REFLEX CULTURE, URINE No (No)
[2024-04-15] MEDS ORDERED: Insulin Regular, Human 100 UNIT/ML ML SUB-Q ONE (12:00)
[2024-04-15 12:48] VITALS: BP 158/108
== END 2024-04-15 12:48 | disposition home or self-care (01) ==
LOC: ED 08:50
PROVIDERS: Emergency Medicine
DX: R10.10 Upper abdominal pain, unspecified (principal); R10.30 Lower abdominal pain, unspecified; E11.22 Type 2 diabetes mellitus with diabetic chronic kidney disease; I12.9 Hypertensive chronic kidney disease with stage 1 through stage 4 chronic kidney disease, or unspecified chronic kidney disease; N18.9 Chronic kidney disease, unspecified; E11.10 Type 2 diabetes mellitus with ketoacidosis without coma; Z79.4 Long term (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; Z79.899 Other long term (current) 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; Z88.6 Allergy status to analgesic agent; Z88.5 Allergy status to narcotic agent; Z88.1 Allergy status to other antibiotic agents; Z88.0 Allergy status to penicillin; Z88.2 Allergy status to sulfonamides; Z88.8 Allergy status to other drugs, medicaments and biological substances
CPT/HCPCS: 36415; 80053; 81001; 83690; 84702; 85025; 96374; 96375; 96376; 99284-25; J1170; J1200; J1815; J2405; J2765

== ENCOUNTER 2024-05-01 13:53 | Emergency (ER) | payer OTHER ==
[~2024-05-01] VITALS: Ht 149.9 cm; Wt 41.5 kg
[~2024-05-01 13:53] MED LIST changes: +PROMETHEGAN25 MG PR
[2024-05-01] MEDS ORDERED: SODIUM CHLORIDE 0.9% 2,000 ML IV ONE (15:00)
[2024-05-01 15:09] LABS: BASOPHILS 0.6 % (0-2); EOSINOPHILS 1.9 % (0-6); HEMATOCRIT 30.5 % (35.0-50.0); HEMOGLOBIN 9.9 g/dL (12.0-18.0); LYMPHOCYTES 31.9 % (24-44); MCHC 32.3 g/dl (30-36); MCV 86.5 fl (81-99); MONOCYTES 5.6 % (0-12); PLATELET COUNT 406 K/uL (140-440); RBC 3.53 M/ul (4.3-5.7); RDW 15.9 (10.5-15.0)
[2024-05-01 15:24] LABS: ALBUMIN 3.7 g/dL (3.4-5.0); ALBUMIN/GLOBULIN RATIO 0.88 (1.1-2.4); ANION GAP 19.8 (7-21); BILIRUBIN, TOTAL 0.4 ng/dL (0.2-1.0); BUN/CREATININE RATIO 12.18 (6.0-28.6); CALCIUM 9.1 mg/dL (8.5-10.1); CREATININE, SERUM 2.38 mg/dL (0.55-1.02); POTASSIUM 4.8 mmol/L (3.5-5.1); PROTEIN, TOTAL 7.9 g/dL (6.4-8.2)
[2024-05-01] MEDS ORDERED: HYDROmorphone HCL 1 MG/ML SYR IV ONE (15:30)
[2024-05-01 16:21] VITALS: BP 145/106
== END 2024-05-01 16:20 | disposition left against medical advice (07) ==
LOC: ED 13:53
PROVIDERS: Emergency Medicine
DX: E11.65 Type 2 diabetes mellitus with hyperglycemia (principal); I12.9 Hypertensive chronic kidney disease with stage 1 through stage 4 chronic kidney disease, or unspecified chronic kidney disease; E11.22 Type 2 diabetes mellitus with diabetic chronic kidney disease; N18.9 Chronic kidney disease, unspecified; E78.5 Hyperlipidemia, unspecified; Z79.4 Long term (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; Z79.899 Other long term (current) 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; Z88.2 Allergy status to sulfonamides; Z88.8 Allergy status to other drugs, medicaments and biological substances; Z88.0 Allergy status to penicillin; Z88.1 Allergy status to other antibiotic agents; Z88.5 Allergy status to narcotic agent
CPT/HCPCS: 36415; 80053; 80307; 83690; 85025; 99284

== ENCOUNTER 2024-05-04 14:24 | Emergency (ER) | payer OTHER ==
[~2024-05-04] VITALS: Ht 149.9 cm; Wt 44.6 kg
[2024-05-04] MEDS ORDERED: MORPHINE SULFATE 10 MG/ML VIAL IM ONE (15:15)
[2024-05-04 15:25] LABS: BASOPHILS 0.6 % (0-2); HEMOGLOBIN 9.5 g/dL (12.0-18.0)
[2024-05-04 15:27] LABS: EOSINOPHILS 2.3 % (0-6); HEMATOCRIT 29.5 % (35.0-50.0); LYMPHOCYTES 34.4 % (24-44); MCH 27.9 (27-36); MCHC 32.2 g/dl (30-36); MCV 86.8 fl (81-99); MONOCYTES 6.3 % (0-12); NEUTROPHILS 56.4 % (39-80); PLATELET COUNT 377 K/uL (140-440); RDW 15.5 (10.5-15.0)
[2024-05-04 15:41] LABS: ALBUMIN 3.6 g/dL (3.4-5.0); ALBUMIN/GLOBULIN RATIO 0.88 (1.1-2.4); ANION GAP 17.8 (7-21); BILIRUBIN, TOTAL 0.3 ng/dL (0.2-1.0); BUN/CREATININE RATIO 12.09 (6.0-28.6); CALCIUM 9.1 mg/dL (8.5-10.1); CREATININE, SERUM 2.81 mg/dL (0.55-1.02); POTASSIUM 3.8 mmol/L (3.5-5.1); PROTEIN, TOTAL 7.7 g/dL (6.4-8.2)
[2024-05-04 16:15] VITALS: BP 140/94
== END 2024-05-04 16:15 | disposition home or self-care (01) ==
LOC: ED 14:24
PROVIDERS: Emergency Medicine
DX: R10.13 Epigastric pain (principal); I12.9 Hypertensive chronic kidney disease with stage 1 through stage 4 chronic kidney disease, or unspecified chronic kidney disease; E11.22 Type 2 diabetes mellitus with diabetic chronic kidney disease; N18.9 Chronic kidney disease, unspecified; E78.5 Hyperlipidemia, unspecified; Z88.2 Allergy status to sulfonamides; Z88.8 Allergy status to other drugs, medicaments and biological substances; Z88.0 Allergy status to penicillin; Z88.1 Allergy status to other antibiotic agents; Z88.5 Allergy status to narcotic agent; Z79.4 Long term (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; Z79.899 Other long term (current) 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
CPT/HCPCS: 36415; 80053; 83690; 85025; 96372; 99284-25; J2270

== ENCOUNTER 2024-05-06 18:07 | Emergency (ER) | payer OTHER ==
[~2024-05-06] VITALS: Ht 149.9 cm; Wt 44.9 kg
[2024-05-06 18:24] LABS: BILIRUBIN, URINE NEGATIVE (negative); BLOOD/HGB, URINE NEGATIVE (Negative); KETONE, URINE NEGATIVE (Negative); LEUK ESTERASE, URINE NEGATIVE (negative); NITRITE, URINE NEGATIVE (negative)
[2024-05-06 18:30] LABS: BACTERIA, URINE NONE SEEN /hpf (negative); CASTS, URINE NONE SEEN \\lpf; CRYSTALS, URINE NONE SEEN (0-1+); EPITHELIAL CELLS, URINE SQUAMOUS 3+ /lpf (0-1+); RED BLOOD CELLS, URINE 0-1 /hpf (0-5); REFLEX CULTURE, URINE No (No); WHITE BLOOD CELLS, URINE 0-1 /HPF (0-5)
[2024-05-06 18:31] LABS: COLLECTION TYPE, URINE CLEAN CATCH
[2024-05-06] MEDS ORDERED: ondansetron HCL 4 MG TAB PO ONE (18:45)
[2024-05-06 19:28] VITALS: BP 145/106
== END 2024-05-06 19:28 | disposition home or self-care (01) ==
LOC: ED 18:07
PROVIDERS: Emergency Medicine
DX: R10.9 Unspecified abdominal pain (principal); E11.10 Type 2 diabetes mellitus with ketoacidosis without coma; E11.22 Type 2 diabetes mellitus with diabetic chronic kidney disease; I12.9 Hypertensive chronic kidney disease with stage 1 through stage 4 chronic kidney disease, or unspecified chronic kidney disease; N18.9 Chronic kidney disease, unspecified; Z79.4 Long term (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; Z79.899 Other long term (current) 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; Z88.2 Allergy status to sulfonamides; Z88.0 Allergy status to penicillin; Z88.1 Allergy status to other antibiotic agents; Z88.6 Allergy status to analgesic agent; Z88.8 Allergy status to other drugs, medicaments and biological substances
CPT/HCPCS: 81001; 99284; A9270

== ENCOUNTER 2024-05-14 22:21 | Emergency (ER) | payer OTHER ==
[~2024-05-14] VITALS: Ht 149.9 cm; Wt 43.9 kg
[2024-05-14] MEDS ORDERED: LACTATED RINGER'S 1,000 ML IV ONE (22:45)
[2024-05-14] MEDS ORDERED: KETOROLAC TROMETHAMINE 30 MG/ML VIAL IV ONE (22:45)
[2024-05-14] MEDS ORDERED: PROCHLORPERAZINE EDISYLATE 10 MG/2 ML VIAL IV ONE (22:45)
[2024-05-14] MEDS ORDERED: diphenhydrAMINE HCL 50 MG/ML VIAL IV ONE (22:45)
[2024-05-14] MEDS ORDERED: LORazepam 2 MG/ML VIAL IV ONE (23:45)
[2024-05-15] MEDS ORDERED: diphenhydrAMINE HCL 50 MG/ML VIAL ONE (00:14)
[2024-05-15] MEDS ORDERED: diphenhydrAMINE HCL 50 MG/ML VIAL IV ONE (00:15)
[2024-05-15 00:47] VITALS: BP 170/113
== END 2024-05-15 00:49 | disposition home or self-care (01) ==
LOC: ED 22:21
DX: G43.909 Migraine, unspecified, not intractable, without status migrainosus (principal); E10.9 Type 1 diabetes mellitus without complications; I10 Essential (primary) hypertension; Z88.2 Allergy status to sulfonamides; Z88.0 Allergy status to penicillin; Z88.1 Allergy status to other antibiotic agents; Z88.8 Allergy status to other drugs, medicaments and biological substances; Z88.5 Allergy status to narcotic agent; Z79.899 Other long term (current) 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; Z79.4 Long term (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
CPT/HCPCS: 96374; 96375; 96376; 99283-25; J0780; J1200; J1885; J2060; J7121

== ENCOUNTER 2024-05-19 04:48 | Emergency (ER) | payer OTHER ==
[~2024-05-19] VITALS: Ht 149.9 cm; Wt 47.0 kg
[2024-05-19] MEDS ORDERED: SUMAtriptan succinate 6 MG/0.5 ML VIAL SUB-Q ONE (05:30)
[2024-05-19] MEDS ORDERED: LACTATED RINGER'S 1,000 ML IV ONE (05:30)
[2024-05-19] MEDS ORDERED: diphenhydrAMINE HCL 50 MG/ML VIAL IV ONE (05:30)
[2024-05-19] MEDS ORDERED: KETOROLAC TROMETHAMINE 30 MG/ML VIAL IV ONE (05:30)
[2024-05-19] MEDS ORDERED: METOCLOPRAMIDE HCL 10 MG/2 ML SDV IV ONE (05:30)
[2024-05-19 06:29] VITALS: BP 137/90
[2024-05-28] MEDS ORDERED: ALLERGY MEDICAT25 MG PO (23:04)
[2024-05-30] MEDS ORDERED: LEVSIN0.125 MG PO (19:36)
== END 2024-05-19 06:29 | disposition left against medical advice (07) ==
LOC: ED 04:48
DX: G43.909 Migraine, unspecified, not intractable, without status migrainosus (principal); I12.9 Hypertensive chronic kidney disease with stage 1 through stage 4 chronic kidney disease, or unspecified chronic kidney disease; E11.22 Type 2 diabetes mellitus with diabetic chronic kidney disease; I50.9 Heart failure, unspecified; E78.5 Hyperlipidemia, unspecified; Z53.29 Procedure and treatment not carried out because of patient's decision for other reasons; Z79.4 Long term (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; Z88.2 Allergy status to sulfonamides; Z88.8 Allergy status to other drugs, medicaments and biological substances; Z88.0 Allergy status to penicillin; Z88.1 Allergy status to other antibiotic agents; Z88.5 Allergy status to narcotic agent; Z79.899 Other long term (current) 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
CPT/HCPCS: 96374; 96375; 99283-25; J1200; J2765; J3030; J7121

== ENCOUNTER 2024-05-28 20:13 | Emergency (ER) | payer OTHER ==
[~2024-05-28] VITALS: Ht 149.9 cm; Wt 44.7 kg
[2024-05-28] MEDS ORDERED: HYDROmorphone HCL 1 MG/ML SYR IV PRN (20:30)
[2024-05-28] MEDS ORDERED: ondansetron HCL 4 MG/2 ML VIAL IV ONE (20:30)
[2024-05-28] MEDS ORDERED: SODIUM CHLORIDE 0.9% 1,000 ML IV ONE (20:30)
[2024-05-28 20:39] LABS: PH, VENOUS 7.324 (7.31-7.41)
[2024-05-28 20:41] LABS: BASOPHILS 0.6 % (0-2); EOSINOPHILS 1.4 % (0-6); HEMATOCRIT 31.1 % (35.0-50.0); LYMPHOCYTES 26.4 % (24-44); MCH 28.2 (27-36); MCV 88.1 fl (81-99); NEUTROPHILS 66.6 % (39-80); PLATELET COUNT 557 K/uL (140-440); RBC 3.53 M/ul (4.3-5.7); RDW 16.6 (10.5-15.0)
[2024-05-28] MEDS ORDERED: diphenhydrAMINE HCL 50 MG/ML VIAL IV ONE ×2 (20:45→21:45)
[2024-05-28 20:52] LABS: BILIRUBIN, URINE NEGATIVE (negative); BLOOD/HGB, URINE NEGATIVE (Negative); KETONE, URINE NEGATIVE (Negative); LEUK ESTERASE, URINE NEGATIVE (negative); NITRITE, URINE NEGATIVE (negative); PH, URINE 6.5 (5-7)
[2024-05-28 20:58] LABS: ALBUMIN 3.7 g/dL (3.4-5.0); ALBUMIN/GLOBULIN RATIO 0.8 (1.1-2.4); ANION GAP 18.3 (7-21); BILIRUBIN, TOTAL 0.2 ng/dL (0.2-1.0); BUN/CREATININE RATIO 10.31 (6.0-28.6); CALCIUM 8.9 mg/dL (8.5-10.1); CREATININE, SERUM 3.2 mg/dL (0.55-1.02); POTASSIUM 4.3 mmol/L (3.5-5.1); PROTEIN, TOTAL 8.3 g/dL (6.4-8.2)
[2024-05-28 21:03] LABS: BACTERIA, URINE NONE SEEN /hpf (negative); CASTS, URINE NONE SEEN \\lpf; COLLECTION TYPE, URINE CLEAN CATCH; CRYSTALS, URINE NONE SEEN (0-1+); EPITHELIAL CELLS, URINE SQUAMOUS 1+ /lpf (0-1+); RED BLOOD CELLS, URINE 0-1 /hpf (0-5); REFLEX CULTURE, URINE No (No); WHITE BLOOD CELLS, URINE 0-1 /HPF (0-5)
[2024-05-28] MEDS ORDERED: INSULIN LISPRO 100 UNIT/ML ML IV ONE (21:45)
[2024-05-28] MEDS ORDERED: LACTATED RINGER'S 1,000 ML IV ONE (21:45)
[2024-05-28] MEDS ORDERED: SUCRALFATE 1 GM TAB PO ONE (22:15)
[2024-05-28] MEDS ORDERED: LIDOCAINE & ANTACID 35 ML BTL PO ONE (22:15)
[2024-05-28] MEDS ORDERED: ALLERGY MEDICAT25 MG PO ×2 (23:04)
[2024-05-28 23:09] VITALS: BP 126/93
[2024-05-30] MEDS ORDERED: LEVSIN0.125 MG PO ×2 (19:36)
[2024-06-02] MEDS ORDERED: LANTUS SOL100 UNIT/1 SUB-Q ×2 (10:57)
[2024-06-02] MEDS ORDERED: EXCEDRIN MIGRA1 EAC2 PO ×2 (13:41)
[2024-06-02] MEDS ORDERED: VITAMIN D325 MCG PO ×2 (13:42)
[2024-06-02] MEDS ORDERED: CYMBALTA30 MG PO ×2 (13:44)
[2024-06-02] MEDS ORDERED: TOPROL XL25 MG PO ×2 (13:45)
[2024-06-02] MEDS ORDERED: IMITREX25 MG PO ×2 (13:49)
[2024-06-03] MEDS ORDERED: REGLAN10 MG PO ×2 (08:22)
[2024-06-03] MEDS ORDERED: INSULIN LI100 UNIT/1 SUB-Q ×2 (10:24)
[2024-06-03] MEDS ORDERED: HYDROCODON-ACE1 EA10 PO ×2 (11:10)
== END 2024-05-28 23:09 | disposition home or self-care (01) ==
LOC: ED 20:13
PROVIDERS: Family Medicine
DX: R10.31 Right lower quadrant pain (principal); K90.49 Malabsorption due to intolerance, not elsewhere classified; E11.9 Type 2 diabetes mellitus without complications; I10 Essential (primary) hypertension; Z88.2 Allergy status to sulfonamides; Z88.0 Allergy status to penicillin; Z88.1 Allergy status to other antibiotic agents; Z88.5 Allergy status to narcotic agent; Z88.8 Allergy status to other drugs, medicaments and biological substances; Z79.899 Other long term (current) 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; Z79.4 Long term (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
CPT/HCPCS: 36415; 74176; 80053; 81001; 82010; 82803; 83690; 84703; 85025; 96374; 96375; 96376; 99284-25; J1170; J1200; J2405; J7030; J7121

== ENCOUNTER 2024-06-02 01:00 | Observation (INO) | payer OTHER ==
[2024-06-02] VITALS (9 sets, daily range): BP systolic 127–154; BP diastolic 87–94
[~2024-06-02] VITALS: Ht 149.9 cm; Wt 44.1 kg
[~2024-06-02 01:00] MED LIST changes: +ALLERGY MEDICAT25 MG PO; +LEVSIN0.125 MG PO
[2024-06-02 01:23] LABS: BASOPHILS 0.8 % (0-2); EOSINOPHILS 1.8 % (0-6); HEMATOCRIT 29.8 % (35.0-50.0); HEMOGLOBIN 9.6 g/dL (12.0-18.0); LYMPHOCYTES 34.3 % (24-44); MCH 28.2 (27-36); MCHC 32.1 g/dl (30-36); MONOCYTES 6.9 % (0-12); NEUTROPHILS 56.2 % (39-80); PLATELET COUNT 497 K/uL (140-440); RBC 3.39 M/ul (4.3-5.7); RDW 16.6 (10.5-15.0)
[2024-06-02] MEDS ORDERED: ondansetron HCL 4 MG/2 ML VIAL IV ONE (01:30)
[2024-06-02] MEDS ORDERED: FAMOTIDINE 20 MG/ 2 ML VIAL IV ONE (01:30)
[2024-06-02] MEDS ORDERED: ACETAMINOPHEN 1,000 MG/100 ML VIAL IV ONE (01:30)
[2024-06-02 01:40] LABS: ALBUMIN 3.5 g/dL (3.4-5.0); ALBUMIN/GLOBULIN RATIO 0.8 (1.1-2.4); ANION GAP 19.5 (7-21); BILIRUBIN, TOTAL 0.2 ng/dL (0.2-1.0); BUN/CREATININE RATIO 9.79 (6.0-28.6); CALCIUM 9.3 mg/dL (8.5-10.1); CREATININE, SERUM 2.96 mg/dL (0.55-1.02); MAGNESIUM 2.4 mg/dL (1.8-2.4); POTASSIUM 4.5 mmol/L (3.5-5.1); PROTEIN, TOTAL 7.9 g/dL (6.4-8.2)
[2024-06-02] MEDS ORDERED: HYDROmorphone HCL 1 MG/ML SYR IV PRN ×3 (02:00→15:45)
[2024-06-02] MEDS ORDERED: LACTATED RINGER'S 1,000 ML IV ONE (02:00)
[2024-06-02] MEDS ORDERED: diphenhydrAMINE HCL 50 MG/ML VIAL IV ONE (02:00)
[2024-06-02 03:14] LABS: BILIRUBIN, URINE NEGATIVE (negative); BLOOD/HGB, URINE TRACE-I (Negative); KETONE, URINE NEGATIVE (Negative); LEUK ESTERASE, URINE NEGATIVE (negative); NITRITE, URINE NEGATIVE (negative)
[2024-06-02 03:19] LABS: EPITHELIAL CELLS, URINE SQUAMOUS 2+ /lpf (0-1+)
[2024-06-02 03:20] LABS: BACTERIA, URINE RARE /hpf (negative); CASTS, URINE NONE SEEN \\lpf; COLLECTION TYPE, URINE CLEAN CATCH; CRYSTALS, URINE NONE SEEN (0-1+); RED BLOOD CELLS, URINE 0-1 /hpf (0-5); REFLEX CULTURE, URINE No (No)
[2024-06-02] MEDS ORDERED: diphenhydrAMINE HCL 50 MG/ML VIAL IV PRN ×2 (03:30→11:00)
[2024-06-02] MEDS ORDERED: ondansetron HCL 4 MG/2 ML VIAL IV PRN ×2 (03:30→05:45)
[2024-06-02] MEDS ORDERED: LACTATED RINGER'S 1,000 ML IV SCH (03:30)
--- NOTE | 2024-06-02 04:09 | NUR ---
pt ARRIVES TO NM VIA STRETCHER, AMBULATORY TO HOSPITAL BED. ASSESSMENT COMPLETE. pt DENIES NAUSEA, DENIES PAIN AT THIS TIME. TENDER WITH PALPATION UPPER EPIGASTRIC AREA. BOWEL TONES HYPOACTIVE. pt EDUCATED ON NPO STATUS. MEDICATIONS PLACED IN LOCKBOX BY CARE ASST. IV SITE FLUSHED WNL, IVF INFUSING ORDERED WNL. SLEEPING ON COUCH.
--- NOTE | 2024-06-02 04:19 | NUR ---
ADMISSION COMPLETED, pt LEFT RESTING IN BED. CALL LIGHT IN REACH ALONG WITH PERSONAL BELONGINGS. NO FURTHER NEEDS OR CONCERNS VERBALIZED.
--- NOTE | 2024-06-02 05:37 | NUR ---
CALL LIGHT ANSWERED. WARM PACKET PROVIDED. NO ADDITIONAL REQUESTS.
[2024-06-02] MEDS ORDERED: GLUCAGON,HUMAN RECOMBINANT 1 MG/ML VIAL SUB-Q PRN (05:45)
[2024-06-02] MEDS ORDERED: ACETAMINOPHEN 500 MG TAB PO PRN (05:45)
[2024-06-02] MEDS ORDERED: DEXTROSE 5% 1,000 ML IV PRN (05:45)
[2024-06-02] MEDS ORDERED: IBLOOD GLUCOSE TEST STRIP 1 EA TEST XX PRN (05:45)
[2024-06-02] MEDS ORDERED: DEXTROSE 50% 50 ML SYR IV PRN ×2 (05:45)
--- NOTE | 2024-06-02 07:02 | NUR ---
pt AWAKE SITTING UP IN BED, RATES PAIN 8/10 IN UPPER ABDOMEN. PRN PAIN MEDICATION ADMINISTERED. IVF INFUSING WNL. CALL LIGHT IN REACH. NO ADDITIONAL REQUESTS.
--- NOTE | 2024-06-02 07:21 | NUR ---
PT RESTING IN BED WITH CALL LIGHT WITHIN REACH, AWAKE AND ALERT. PT HAS CGM TO R) ARM AND INSULIN PUMP INFUSING INTO R) ABD. PT HAS NO REQUESTS AT THIS TIME. REPORT RECEIVED FROM FATIMAH RUDD.
[2024-06-02 07:29] LABS: BASOPHILS 0.6 % (0-2); EOSINOPHILS 1.7 % (0-6); HEMATOCRIT 26.7 % (35.0-50.0); HEMOGLOBIN 8.6 g/dL (12.0-18.0); LYMPHOCYTES 35.4 % (24-44); MCHC 32.2 g/dl (30-36); MCV 86.9 fl (81-99); NEUTROPHILS 54.3 % (39-80); PLATELET COUNT 426 K/uL (140-440); RBC 3.07 M/ul (4.3-5.7); RDW 15.9 (10.5-15.0)
[2024-06-02 07:44] LABS: ALBUMIN 3.1 g/dL (3.4-5.0); ALBUMIN/GLOBULIN RATIO 0.79 (1.1-2.4); ALKALINE PHOSPHATASE 571 U/L (46-116); ALT (SGPT) 28 U/L (14-59); ANION GAP 16.2 (7-21); AST (SGOT) 19 U/L (15-37); BILIRUBIN, TOTAL 0.2 ng/dL (0.2-1.0); BUN/CREATININE RATIO 11.33 (6.0-28.6); CALCIUM 8.6 mg/dL (8.5-10.1); CARBON DIOXIDE 22 mmol/L (21-32); CHLORIDE 106 mmol/L (98-107); CREATININE, SERUM 2.47 mg/dL (0.55-1.02); GLOMERULAR FILTRATION RATE,EST 27 mL/min (>60); POTASSIUM 4.2 mmol/L (3.5-5.1); UREA NITROGEN 28 mg/dL (7-18)
--- NOTE | 2024-06-02 07:48 | NUR ---
UR CLINICAL REVIEW: [facility] CRITERIA FOR INPATIENT STAY BASIC DMAP INPT 06/02/24 @ 0544 ORDER MATCHES REG NO AUTH REQUIRIED PER MEDICAID GUIDELINES DISCHARGE TO HOME WHEN STABLE 06/04/24
[2024-06-02] MEDS ORDERED: Insulin Regular, Human 100 UNIT/ML ML SUB-Q SCH (08:00)
[2024-06-02] MEDS ORDERED: IBLOOD GLUCOSE TEST STRIP 1 EA TEST VI SCH (08:00)
--- NOTE | 2024-06-02 09:10 | NUR ---
NEW LITER OF LR HANGING. DR. LOPES IN TO SEE PATIENT.
--- NOTE | 2024-06-02 09:24 | NUR ---
PATIENT AWAKE IN BED, VISITOR AT BEDSIDE. VITALS AND I&OS CHARTED. CALL LIGHT NAD PERSONAL ITEMS IN CLOSE REACH.
--- NOTE | 2024-06-02 10:11 | NUR ---
PATIENT IN BED. LIVES IN HOME WITH SPOUSE. ONLY DME IS RELATED TO HER DIABETIC CARE. STATES SHE NEEDS GLUCOMETER AND STRIPS BECAUSE HER [employer] SYSTEM WILL NEED REVIEWED ON 06/09/24 FOR INSURANCE COVERAGE AND SHE STATES SHE HAS NO MORE SUPPLIES. ALSO STATES SHE NEED SYRINGES AND ALCOHOL SWABS. INFORMED THOSE MAY BE OBTAINED AT PHARMACY. ATTEMPT TO CONTACT [facility] NURSE, MESSAGE LEFT TO DISCUSS PATIENT NEEDS AND WHAT MAY BE DONE TO OBTAIN WHAT SHE NEEDS TO MANAGE HER DIABETES. PATIENT HAS ASSISTANCE WITH TRANSPORTATION. SHE HAS NO ISSUES WITH FOOD OR PAYING UTILITES.
[2024-06-02] MEDS ORDERED: hydrOXYzine pamoate 25 MG CAP PO PRN (10:15)
--- NOTE | 2024-06-02 10:42 | NUR ---
PT GIVEN PAIN MED FOR ABD PAIN. S/O AT BEDSIDE. CALL LIGHT WITHIN REACH.
--- NOTE | 2024-06-02 10:46 | NUR ---
PT NOT AVAILABLE FOR VISIT. PROVIDED PRAYER.
[2024-06-02] MEDS ORDERED: LANTUS SOL100 UNIT/1 SUB-Q (10:57)
[2024-06-02] MEDS ORDERED: PHARMACY RENAL DOSE ADJUSTMENT 1 DOSE MISC PO SCH (12:00)
--- NOTE | 2024-06-02 12:31 | NUR ---
VITALS COMPLETE. PT REQ RN. RN NOTIFIED. CALL LIGHT IN REACH
--- NOTE | 2024-06-02 12:53 | NUR ---
PATIENT AWAKE IN BED, VITALS AND I&OS CHARTED. PERSONAL ITEMS AND CALL LIGHT IN EASY REACH. NO OTHER NEEDS AT THIS TIME
[2024-06-02] MEDS ORDERED: EXCEDRIN MIGRA1 EAC2 PO (13:41)
[2024-06-02] MEDS ORDERED: VITAMIN D325 MCG PO (13:42)
[2024-06-02] MEDS ORDERED: CYMBALTA30 MG PO (13:44)
[2024-06-02] MEDS ORDERED: TOPROL XL25 MG PO (13:45)
[2024-06-02] MEDS ORDERED: XULANE PATCH1 EACH TD (13:46)
[2024-06-02] MEDS ORDERED: IMITREX25 MG PO (13:49)
--- NOTE | 2024-06-02 13:51 | NUR ---
PT SITTING UP IN BED WATCHING TV WITH S/O AT BEDSIDE. CALL LIGHT WITHIN REACH.
--- NOTE | 2024-06-02 14:33 | NUR ---
PT RESTING IN BED WATCHING TV, S/O AT BEDSIDE. MEDS GIVEN FOR PAIN AND ITCHING PER PT REQUEST. CALL LIGHT WITHIN REACH.
--- NOTE | 2024-06-02 15:26 | NUR ---
PT RESTING IN BED, STATES PAIN IS NOW AT 6 AND IS TOLERABLE AT THIS TIME. PT'S ITCHING HAS SUBSIDED.
--- NOTE | 2024-06-02 16:42 | NUR ---
Gave patient a hot pack and a warm blanket.
--- NOTE | 2024-06-02 17:19 | NUR ---
PATIENT AWAKE IN BED, S/O IN ROOM. VITALS AND I&OS CHARTED. CALL LIGHT AND PERSONAL ITEMS IN CLOSE REACH
--- NOTE | 2024-06-02 17:31 | NUR ---
PT ABLE TO TOLERATE CLEAR LIQUIDS THIS AFTERNOON. PT HAD BROTH X2 AND A POPSICLE. DENIED ANY INCREASE IN PAIN OR NAUSEA.
--- NOTE | 2024-06-02 19:21 | NUR ---
RECEIVED REPORT FROM DAY SHIFT RN. PATIENT IS RESTING IN BED WATCHING TV. PATIENT DENIES ANY NEEDS. CALL LIGHT IN REACH.
--- NOTE | 2024-06-02 20:35 | NUR ---
PATIENTS VITALS TAKEN AND RECORDED. PATIENT UP IND TO BR. PATIENT ABLE TO VOID. INTAKE AND OUTPUT RECORDED. PATIENT REPORTS 5/10 PAIN, PRN PAIN MEDICATION GIVEN PER ORDER. PATIENT DENIES ANY NAUSEA. PATIENT GIVEN PRN BENADRYL GIVEN PER PATIENT REQUEST. PATIENTS IV FLUSHED AND SL PER ORDER. PATIENT PROVIDED ICE CHIPS. PATIENT DENIES ANY FURTHER NEEDS. CALL LIGHT IN REACH.
--- NOTE | 2024-06-02 22:06 | NUR ---
PATIENT RATES PAIN AT AN 8/10 IN RUQ, PRN PAIN MEDICATION GIVEN PER ORDER. PATIENT DENIES ANY FURTHER NEEDS. CALL LIGHT IN REACH. IV SL PER ORDER. AT BEDSIDE.
--- NOTE | 2024-06-03 00:39 | NUR ---
PATIENT CALLED AND REPORTS 8/10 IN HER UPPER ABD, PRN PAIN MEDICATION GIVEN PER ORDER. PATIENT DENIES ANY NAUSEA. PATIENT DENIES ANY FURTHER NEEDS CALL LIGHTIN REACH. ON COUCH.
[2024-06-03 01:55] VITALS: BP 129/89
[2024-06-03 02:07] VITALS: BP 129/89
--- NOTE | 2024-06-03 02:10 | NUR ---
PATIENTS VITALS TAKEN AND RECORDED. INTAKE AND OUTPUT RECORDED. PATIENT REPORTS 8/10 PAIN, PRN PAIN MEDICATION GIVEN PER ORDER. PATIENT GIVEN PRN ITTHING MEDICATION PER REQUEST. PATIENT IS RESTING IN BED AND DENIES ANY FURTHER NEEDS. CALL LIGHT IN REACH.
--- NOTE | 2024-06-03 04:16 | NUR ---
PATIENT CALLED AND REPORTS 8/10 PAIN IN HER UPPER ABD, PRN PAIN MEDICATION GIVEN PER ORDER. PATIENT DENIES ANY NAUSEA. PATIENT DENIES ANY FURTHER NEEDS. CALL LIGHT IN REACH. CALL LIGHT IN REACH.
[2024-06-03 05:49] LABS: BASOPHILS 0.5 % (0-2); EOSINOPHILS 1.3 % (0-6); HEMATOCRIT 26.2 % (35.0-50.0); HEMOGLOBIN 8.3 g/dL (12.0-18.0); LYMPHOCYTES 17.4 % (24-44); MCH 27.9 (27-36); MCHC 31.7 g/dl (30-36); MONOCYTES 7.3 % (0-12); NEUTROPHILS 73.5 % (39-80); PLATELET COUNT 441 K/uL (140-440); RBC 2.98 M/ul (4.3-5.7); RDW 16.3 (10.5-15.0)
[2024-06-03 05:58] LABS: ANION GAP 15.3 (7-21); BUN/CREATININE RATIO 9.69 (6.0-28.6); CREATININE, SERUM 2.27 mg/dL (0.55-1.02); MAGNESIUM 1.8 mg/dL (1.8-2.4); POTASSIUM 4.3 mmol/L (3.5-5.1)
[2024-06-03 06:11] VITALS: BP 123/86
--- NOTE | 2024-06-03 06:12 | NUR ---
GOLF [employer]UB HEAD INSPECTOR AND ADJUSTER OBTAINED VITALS. PT NPO AND NO NEW OUTPUT AT THIS TIME. PT STATES NO FURTHER NEEDS AT THIS TIME. CALL LIGHT WITHIN REACH.
--- NOTE | 2024-06-03 07:02 | NUR ---
Pt report received from BLAIRE Jones. Pt is resting with eyes closed, supine, in bed. Breathing regular, even, and non-labored. Call light in reach.
[2024-06-03] MEDS ORDERED: REGLAN10 MG PO (08:22)
[2024-06-03 10:12] VITALS: BP 128/86
[2024-06-03] MEDS ORDERED: INSULIN LI100 UNIT/1 SUB-Q (10:24)
--- NOTE | 2024-06-03 10:52 | NUR ---
MED REC COMPLETE
--- NOTE | 2024-06-03 11:00 | NUR ---
Patient asking for pain meds. She asked for her nurse. Nurse aware.
--- NOTE | 2024-06-03 11:09 | NUR ---
In with pt for pain med administration per emar at pt request. Pt is sitting up in bed, visitor in chair in room, television on. Pt is quiet, does not appear to be in any distress, breathing is regular, even, and non-labored. She rates her current pain level a 9 out of 10 in her mid upper epigastric region. Pt has a niuean bros drink on her bedside table along with a canned iced tea/lemonade beverage as well. Pt declines offer for shower, stating that she doesn't have anything with her to secure her insulin pump. Pt requested something for "itching" and was reminded that I administered IV benadryl to her this morning around 0800 hours with her IV pain medication as well. Pt stated that "tylenol doesn't work. If it was working at home, I wouldn't have come in here. This is useless. There's no point" but took the PO tylenol that I gave to her per emar. Advised pt that I would review the physician's notes and see if he plans to write a script for po pain meds at discharge. Call light in reach.
[2024-06-03] MEDS ORDERED: HYDROCODON-ACE1 EA10 PO (11:10)
[2024-06-03 12:22] VITALS: BP 134/87
--- NOTE | 2024-06-03 14:40 | NUR ---
In and spoke with Milly. She denies needs. Plans on dc to home soon.
== END 2024-06-03 12:28 | disposition home or self-care (01) ==
LOC: ED 01:00 → MS 01:01
PROVIDERS: Internal Medicine; ADMIT Student in an Organized Health Care Education/Training Program; ATTEND Student in an Organized Health Care Education/Training Program
DX: K85.90 Acute pancreatitis without necrosis or infection, unspecified (principal); N17.9 Acute kidney failure, unspecified; D64.9 Anemia, unspecified; R74.8 Abnormal levels of other serum enzymes; I12.9 Hypertensive chronic kidney disease with stage 1 through stage 4 chronic kidney disease, or unspecified chronic kidney disease; E10.22 Type 1 diabetes mellitus with diabetic chronic kidney disease; N18.9 Chronic kidney disease, unspecified; E10.10 Type 1 diabetes mellitus with ketoacidosis without coma; E78.5 Hyperlipidemia, unspecified; Z88.2 Allergy status to sulfonamides; Z88.0 Allergy status to penicillin; Z88.5 Allergy status to narcotic agent; Z88.8 Allergy status to other drugs, medicaments and biological substances; Z79.4 Long term (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; Z79.899 Other long term (current) 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
CPT/HCPCS: 36415; 74176; 80048; 80053; 81001; 83690; 83735; 84703; 85025; 96374; 96375; 96376; 99285-25; A9270; G0378; J0131; J1170; J1200; J1815; J2405; J7121; Q0177

== ENCOUNTER 2024-06-04 08:42 | Observation (INO) | payer OTHER ==
[~2024-06-04] VITALS: Ht 149.9 cm; Wt 43.6 kg
[~2024-06-04 08:42] MED LIST changes: +CYMBALTA30 MG PO; +EXCEDRIN MIGRA1 EAC2 PO; +INSULIN LI100 UNIT/1 SUB-Q; +VITAMIN D325 MCG PO; +XULANE PATCH1 EACH TD
[2024-06-04 09:15] LABS: BILIRUBIN, URINE NEGATIVE (negative); BLOOD/HGB, URINE NEGATIVE (Negative); KETONE, URINE NEGATIVE (Negative); LEUK ESTERASE, URINE NEGATIVE (negative); NITRITE, URINE NEGATIVE (negative)
[2024-06-04] MEDS ORDERED: ondansetron HCL 4 MG/2 ML VIAL IV ONE ×2 (09:15→09:45)
[2024-06-04 09:21] LABS: EPITHELIAL CELLS, URINE SQUAMOUS 3+ /lpf (0-1+)
[2024-06-04 09:22] LABS: CRYSTALS, URINE NONE SEEN (0-1+); RED BLOOD CELLS, URINE 0-1 /hpf (0-5)
[2024-06-04 09:23] LABS: BACTERIA, URINE 1+ /hpf (negative); CASTS, URINE NONE SEEN \\lpf; COLLECTION TYPE, URINE CLEAN CATCH; REFLEX CULTURE, URINE No (No)
[2024-06-04 09:44] LABS: BASOPHILS 0.8 % (0-2); EOSINOPHILS 4.2 % (0-6); HEMATOCRIT 30.8 % (35.0-50.0); HEMOGLOBIN 9.6 g/dL (12.0-18.0); LYMPHOCYTES 31.3 % (24-44); MCH 27.8 (27-36); MCHC 31.1 g/dl (30-36); MCV 89.2 fl (81-99); MONOCYTES 8.1 % (0-12); NEUTROPHILS 55.6 % (39-80); PLATELET COUNT 455 K/uL (140-440); RBC 3.45 M/ul (4.3-5.7); RDW 16.5 (10.5-15.0)
[2024-06-04] MEDS ORDERED: diphenhydrAMINE HCL 50 MG/ML VIAL IV ONE (09:45)
[2024-06-04] MEDS ORDERED: SODIUM CHLORIDE 0.9% 1,000 ML IV PRN (09:45)
[2024-06-04] MEDS ORDERED: HYDROmorphone HCL 1 MG/ML SYR IV ONE ×2 (09:45→11:45)
[2024-06-04 09:59] LABS: ALBUMIN 3.9 g/dL (3.4-5.0); ALBUMIN/GLOBULIN RATIO 0.87 (1.1-2.4); ALKALINE PHOSPHATASE 599 U/L (46-116); ALT (SGPT) 23 U/L (14-59); ANION GAP 18.7 (7-21); AST (SGOT) 17 U/L (15-37); BILIRUBIN, TOTAL 0.3 ng/dL (0.2-1.0); BUN/CREATININE RATIO 8.44 (6.0-28.6); CALCIUM 9.7 mg/dL (8.5-10.1); CARBON DIOXIDE 20 mmol/L (21-32); CHLORIDE 100 mmol/L (98-107); CREATININE, SERUM 3.08 mg/dL (0.55-1.02); GLOMERULAR FILTRATION RATE,EST 21 mL/min (>60); MAGNESIUM 1.9 mg/dL (1.8-2.4); POTASSIUM 4.7 mmol/L (3.5-5.1); PROTEIN, TOTAL 8.4 g/dL (6.4-8.2); UREA NITROGEN 26 mg/dL (7-18)
[2024-06-04] MEDS ORDERED: Insulin Regular, Human 100 UNIT/ML ML IV ONE (10:30)
[2024-06-04 11:05] LABS: BASE EXCESS, BLOOD GAS -7.8 mmol/L (-2-2); HCO3, BLOOD GAS 18.6 mmol/L (22-26); O2 SATURATION, BLOOD GAS 95.5 % (95.0-100.0); PCO2, BLOOD GAS 40.4 mmHg (35-45); PH, BLOOD GAS 7.27 (7.35-7.45); PO2, BLOOD GAS 79 mmHg (80-100); TOTAL CO2, BLOOD GAS 19.8
[2024-06-04 11:06] LABS: OXYGEN RECEIVED, BLOOD GAS RA
[2024-06-04] MEDS ORDERED: IBLOOD GLUCOSE TEST STRIP 1 EA TEST XX PRN (12:45)
[2024-06-04] MEDS ORDERED: MORPHINE SULFATE 4 MG/ML VIAL IV PRN (12:45)
[2024-06-04] MEDS ORDERED: GLUCAGON,HUMAN RECOMBINANT 1 MG/ML VIAL SUB-Q PRN (12:45)
[2024-06-04] MEDS ORDERED: DEXTROSE 5% 1,000 ML IV PRN (12:45)
[2024-06-04] MEDS ORDERED: DEXTROSE 50% 50 ML SYR IV PRN ×2 (12:45)
[2024-06-04] MEDS ORDERED: LACTATED RINGER'S 1,000 ML IV SCH (13:00)
[2024-06-04 13:07] VITALS: BP 142/100
[2024-06-04] MEDS ORDERED: diphenhydrAMINE HCL 25 MG CAP PO PRN (13:30)
[2024-06-04] MEDS ORDERED: INSULIN LISPRO 100 UNIT/ML ML SUB-Q SCH (14:00)
[2024-06-04] MEDS ORDERED: IBLOOD GLUCOSE TEST STRIP 1 EA TEST VI SCH (14:00)
[2024-06-04 16:28] VITALS: BP 142/100
[2024-06-04 18:12] VITALS: BP 141/96
[2024-06-04 20:47] VITALS: BP 143/99
[2024-06-04] MEDS ORDERED: METOPROLOL SUCCINATE 25 MG TABCR PO SCH (21:00)
[2024-06-04] MEDS ORDERED: MELATONIN 3 MG TAB PO PRN (21:00)
[2024-06-04] MEDS ORDERED: ondansetron HCL 4 MG/2 ML VIAL IV PRN (21:45)
[2024-06-04] MEDS ORDERED: FAMOTIDINE 20 MG/ 2 ML VIAL IV SCH (21:45)
[2024-06-04] MEDS ORDERED: diphenhydrAMINE HCL 50 MG/ML VIAL IV PRN (21:45)
[2024-06-05] VITALS (7 sets, daily range): BP systolic 112–141; BP diastolic 76–97
[2024-06-05 05:23] LABS: BASOPHILS 0.7 % (0-2); EOSINOPHILS 4.9 % (0-6); HEMATOCRIT 25.8 % (35.0-50.0); HEMOGLOBIN 8.2 g/dL (12.0-18.0); LYMPHOCYTES 40.4 % (24-44); MCH 27.9 (27-36); MCHC 31.9 g/dl (30-36); MCV 87.6 fl (81-99); MONOCYTES 9.9 % (0-12); NEUTROPHILS 44.1 % (39-80); PLATELET COUNT 392 K/uL (140-440); RBC 2.95 M/ul (4.3-5.7); RDW 16.7 (10.5-15.0)
[2024-06-05 05:40] LABS: ANION GAP 16.1 (7-21); BUN/CREATININE RATIO 9.58 (6.0-28.6); CALCIUM 9.3 mg/dL (8.5-10.1); CREATININE, SERUM 2.19 mg/dL (0.55-1.02); MAGNESIUM 1.6 mg/dL (1.8-2.4); POTASSIUM 4.1 mmol/L (3.5-5.1)
[2024-06-05] MEDS ORDERED: HYDROCODONE/ACETA 5/325 TAB PO PRN (08:30)
[2024-06-05] MEDS ORDERED: LACTATED RINGER'S 1,000 ML IV SCH (08:30)
[2024-06-05] MEDS ORDERED: ENOXAPARIN SODIUM 30 MG/0.3 ML SYR SUB-Q SCH (09:00)
[2024-06-05] MEDS ORDERED: MAGNESIUM SULFATE 2 GM/50 ML BAG IV ONE (09:00)
[2024-06-05] MEDS ORDERED: DULOXETINE HCL 30 MG CAP PO SCH (09:00)
[2024-06-05] MEDS ORDERED: diphenhydrAMINE HCL 25 MG CAP PO PRN (09:45)
[2024-06-05] MEDS ORDERED: INSULIN LISPRO 100 UNIT/ML ML SUB-Q SCH (12:00)
[2024-06-05] MEDS ORDERED: PHARMACY RENAL DOSE ADJUSTMENT 1 DOSE MISC PO SCH (12:00)
[2024-06-05] MEDS ORDERED: IBLOOD GLUCOSE TEST STRIP 1 EA TEST VI SCH (12:00)
[2024-06-06] MEDS ORDERED: FAMOTIDINE 20 MG TAB PO SCH (21:00)
== END 2024-06-05 15:00 | disposition home or self-care (01) ==
LOC: ED 08:42 → MS 08:43
PROVIDERS: Emergency Medicine; ADMIT Student in an Organized Health Care Education/Training Program; ATTEND Student in an Organized Health Care Education/Training Program
DX: K85.90 Acute pancreatitis without necrosis or infection, unspecified (principal); K86.1 Other chronic pancreatitis; E10.65 Type 1 diabetes mellitus with hyperglycemia; F39 Unspecified mood [affective] disorder; I10 Essential (primary) hypertension; E78.5 Hyperlipidemia, unspecified; E10.10 Type 1 diabetes mellitus with ketoacidosis without coma; Z79.4 Long term (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; Z79.899 Other long term (current) 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; Z88.2 Allergy status to sulfonamides; Z88.8 Allergy status to other drugs, medicaments and biological substances
CPT/HCPCS: 36415; 36600; 74176; 80048; 80053; 81001; 82803; 83690; 83735; 84478; 84703; 85025; 96365; 96366; 96372; 96374; 96375; 96376; 99285-25; G0378; J1170; J1200; J1650; J1815; J2270; J2405; J3475; J7030; J7121

== ENCOUNTER 2024-06-18 16:09 | Emergency (ER) | payer OTHER ==
[~2024-06-18] VITALS: Ht 149.9 cm; Wt 44.1 kg
[2024-06-18] MEDS ORDERED: SODIUM CHLORIDE 0.9% 1,000 ML IV ONE (16:45)
[2024-06-18] MEDS ORDERED: ondansetron HCL 4 MG/2 ML VIAL IV ONE (16:45)
[2024-06-18] MEDS ORDERED: PANTOPRAZOLE SODIUM 40 MG/10 ML VIAL IV ONE (16:45)
[2024-06-18 17:14] LABS: BILIRUBIN, URINE NEGATIVE (negative); BLOOD/HGB, URINE TRACE-I (Negative); KETONE, URINE NEGATIVE (Negative); LEUK ESTERASE, URINE NEGATIVE (negative); NITRITE, URINE NEGATIVE (negative)
[2024-06-18 17:24] LABS: BACTERIA, URINE RARE /hpf (negative); CASTS, URINE NONE SEEN \\lpf; COLLECTION TYPE, URINE CLEAN CATCH; CRYSTALS, URINE NONE SEEN (0-1+); REFLEX CULTURE, URINE No (No)
[2024-06-18 17:25] LABS: EPITHELIAL CELLS, URINE SQUAMOUS 2+ /lpf (0-1+)
[2024-06-18 17:58] LABS: BASOPHILS 0.7 % (0-2); EOSINOPHILS 2.3 % (0-6); HEMATOCRIT 29.5 % (35.0-50.0); HEMOGLOBIN 9.7 g/dL (12.0-18.0); LYMPHOCYTES 34.2 % (24-44); MCH 29.3 (27-36); MCHC 32.8 g/dl (30-36); MCV 89.3 fl (81-99); MONOCYTES 6.4 % (0-12); NEUTROPHILS 56.4 % (39-80); PLATELET COUNT 387 K/uL (140-440); RDW 16.8 (10.5-15.0)
[2024-06-18] MEDS ORDERED: OXYCODONE/APAP 5/325 TAB PO ONE ×2 (18:15→19:00)
[2024-06-18] MEDS ORDERED: diphenhydrAMINE HCL 25 MG CAP PO ONE ×2 (18:15→19:00)
[2024-06-18] MEDS ORDERED: hydrOXYzine pamoate 25 MG CAP PO ONE (18:15)
[2024-06-18 18:21] LABS: ALBUMIN 3.5 g/dL (3.4-5.0); ALBUMIN/GLOBULIN RATIO 0.83 (1.1-2.4); ANION GAP 18.9 (7-21); BILIRUBIN, TOTAL 0.2 ng/dL (0.2-1.0); BUN/CREATININE RATIO 11.32 (6.0-28.6); CALCIUM 8.2 mg/dL (8.5-10.1); CREATININE, SERUM 2.56 mg/dL (0.55-1.02); POTASSIUM 3.9 mmol/L (3.5-5.1); PROTEIN, TOTAL 7.7 g/dL (6.4-8.2)
[2024-06-18] MEDS ORDERED: Insulin Regular, Human 100 UNIT/ML ML IV ONE (19:00)
[2024-06-18] MEDS ORDERED: SODIUM CHLORIDE 0.9% 1,000 ML IV PRN (19:00)
[2024-06-18] MEDS ORDERED: LORazepam 2 MG/ML VIAL IV ONE (19:30)
[2024-06-18] MEDS ORDERED: ONDANSETRON 4 MG HOME.PACK SL ONE (21:00)
[2024-06-18 21:04] VITALS: BP 140/99
== END 2024-06-18 21:04 | disposition home or self-care (01) ==
LOC: ED 16:09
PROVIDERS: Emergency Medicine
DX: R10.31 Right lower quadrant pain (principal); E10.65 Type 1 diabetes mellitus with hyperglycemia; I12.9 Hypertensive chronic kidney disease with stage 1 through stage 4 chronic kidney disease, or unspecified chronic kidney disease; E10.22 Type 1 diabetes mellitus with diabetic chronic kidney disease; N18.9 Chronic kidney disease, unspecified; E78.5 Hyperlipidemia, unspecified; E78.1 Pure hyperglyceridemia; H91.91 Unspecified hearing loss, right ear; Z97.4 Presence of external hearing-aid; Z88.0 Allergy status to penicillin; Z88.1 Allergy status to other antibiotic agents; Z88.2 Allergy status to sulfonamides; Z88.5 Allergy status to narcotic agent; Z88.8 Allergy status to other drugs, medicaments and biological substances; Z79.4 Long term (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; Z79.82 Long term (current) use of aspirin; Z79.899 Other long term (current) 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
CPT/HCPCS: 36415; 74176; 80053; 81001; 82010; 83605; 83690; 85025; 96374; 96375; 99284-25; A9270; J1815; J2060; J2405; J2470; J7030

== ENCOUNTER 2024-06-21 19:03 | Emergency (ER) | payer OTHER ==
[~2024-06-21] VITALS: Ht 149.9 cm; Wt 43.6 kg
[2024-06-21] MEDS ORDERED: ACETAMINOPHEN 500 MG TAB PO ONE (19:30)
[2024-06-21] MEDS ORDERED: ONDANSETRON 4 MG TAB ODT SL ONE (19:30)
[2024-06-21 19:33] LABS: PH, VENOUS 7.307 (7.31-7.41)
[2024-06-21 19:34] LABS: EOSINOPHILS 3.1 % (0-6); HEMATOCRIT 29.4 % (35.0-50.0); HEMOGLOBIN 9.4 g/dL (12.0-18.0); LYMPHOCYTES 32.8 % (24-44); MCH 28.3 (27-36); MCHC 31.9 g/dl (30-36); MCV 88.5 fl (81-99); MONOCYTES 8.7 % (0-12); NEUTROPHILS 54.4 % (39-80); PLATELET COUNT 357 K/uL (140-440); RBC 3.32 M/ul (4.3-5.7); RDW 16.6 (10.5-15.0)
[2024-06-21 19:52] LABS: ALBUMIN 3.5 g/dL (3.4-5.0); ALBUMIN/GLOBULIN RATIO 0.81 (1.1-2.4); ANION GAP 17.2 (7-21); BILIRUBIN, TOTAL 0.2 ng/dL (0.2-1.0); BUN/CREATININE RATIO 7.32 (6.0-28.6); CALCIUM 8.9 mg/dL (8.5-10.1); CREATININE, SERUM 2.73 mg/dL (0.55-1.02); POTASSIUM 4.2 mmol/L (3.5-5.1); PROTEIN, TOTAL 7.8 g/dL (6.4-8.2)
[2024-06-21 20:06] LABS: BILIRUBIN, URINE NEGATIVE (negative); BLOOD/HGB, URINE TRACE-I (Negative); KETONE, URINE TRACE (Negative); LEUK ESTERASE, URINE NEGATIVE (negative); NITRITE, URINE NEGATIVE (negative)
[2024-06-21 20:11] LABS: EPITHELIAL CELLS, URINE SQUAMOUS 2+ /lpf (0-1+)
[2024-06-21 20:13] LABS: BACTERIA, URINE 1+ /hpf (negative); CRYSTALS, URINE NONE SEEN (0-1+)
[2024-06-21 20:14] LABS: CASTS, URINE GRANULAR 2+ \\lpf; COLLECTION TYPE, URINE CLEAN CATCH; REFLEX CULTURE, URINE No (No)
[2024-06-21] MEDS ORDERED: LIDOCAINE & ANTACID 35 ML BTL PO ONE (22:00)
[2024-06-21] MEDS ORDERED: ONDANSETRON 4 MG HOME.PACK SL ONE (22:15)
[2024-06-21 22:25] VITALS: BP 146/98
== END 2024-06-21 22:25 | disposition home or self-care (01) ==
LOC: ED 19:03
PROVIDERS: Family Medicine
DX: K80.70 Calculus of gallbladder and bile duct without cholecystitis without obstruction (principal); E11.9 Type 2 diabetes mellitus without complications; I10 Essential (primary) hypertension; Z88.2 Allergy status to sulfonamides; Z88.0 Allergy status to penicillin; Z88.1 Allergy status to other antibiotic agents; Z88.5 Allergy status to narcotic agent; Z88.8 Allergy status to other drugs, medicaments and biological substances; Z79.4 Long term (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; Z79.899 Other long term (current) 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; Z79.82 Long term (current) use of aspirin
CPT/HCPCS: 36415; 76705; 76770; 80053; 81001; 82803; 83690; 85025; 99284-25; A9270

== ENCOUNTER 2024-06-23 23:41 | Emergency (ER) | payer OTHER ==
[~2024-06-23] VITALS: Ht 149.9 cm; Wt 44.3 kg
[2024-06-24 00:10] LABS: PH, VENOUS 7.341 (7.31-7.41)
[2024-06-24 00:13] LABS: HEMOGLOBIN 9.6 g/dL (12.0-18.0)
[2024-06-24 00:15] LABS: BASOPHILS 1.3 % (0-2); EOSINOPHILS 2.3 % (0-6); HEMATOCRIT 29.7 % (35.0-50.0); LYMPHOCYTES 30.7 % (24-44); MCH 29.1 (27-36); MCHC 32.5 g/dl (30-36); MCV 89.4 fl (81-99); MONOCYTES 7.4 % (0-12); NEUTROPHILS 58.3 % (39-80); PLATELET COUNT 370 K/uL (140-440); RBC 3.32 M/ul (4.3-5.7); RDW 16.8 (10.5-15.0)
[2024-06-24] MEDS ORDERED: CYCLOBENZAPRINE HCL 10 MG TAB PO ONE (00:15)
[2024-06-24] MEDS ORDERED: ACETAMINOPHEN 325 MG TAB PO ONE (00:15)
[2024-06-24] MEDS ORDERED: IBLOOD GLUCOSE TEST STRIP 1 EA TEST XX ONE (00:15)
[2024-06-24] MEDS ORDERED: LACTATED RINGER'S 1,000 ML IV ONE (00:15)
[2024-06-24] MEDS ORDERED: ondansetron HCL 4 MG/2 ML VIAL IV ONE (00:15)
[2024-06-24] MEDS ORDERED: SODIUM CHLORIDE 0.9% 1,000 ML IV ONE (00:15)
[2024-06-24 00:34] LABS: ALBUMIN 3.7 g/dL (3.4-5.0); ALBUMIN/GLOBULIN RATIO 0.84 (1.1-2.4); ANION GAP 16.8 (7-21); BILIRUBIN, TOTAL 0.2 ng/dL (0.2-1.0); BUN/CREATININE RATIO 5.92 (6.0-28.6); CALCIUM 8.7 mg/dL (8.5-10.1); CREATININE, SERUM 3.04 mg/dL (0.55-1.02); POTASSIUM 4.8 mmol/L (3.5-5.1); PROTEIN, TOTAL 8.1 g/dL (6.4-8.2)
[2024-06-24] MEDS ORDERED: MORPHINE SULFATE 4 MG/ML VIAL IV ONE (00:45)
[2024-06-24] MEDS ORDERED: DEXAMETHASONE SOD PHOS 4 MG/ML VIAL IV ONE (00:45)
[2024-06-24 00:58] LABS: BILIRUBIN, URINE NEGATIVE (negative); BLOOD/HGB, URINE NEGATIVE (Negative); KETONE, URINE TRACE (Negative); LEUK ESTERASE, URINE NEGATIVE (negative); NITRITE, URINE NEGATIVE (negative); PH, URINE 6.5 (5-7)
[2024-06-24 01:03] LABS: EPITHELIAL CELLS, URINE SQUAMOUS 2+ /lpf (0-1+)
[2024-06-24 01:04] LABS: BACTERIA, URINE RARE /hpf (negative); CASTS, URINE NONE SEEN \\lpf; COLLECTION TYPE, URINE CLEAN CATCH; CRYSTALS, URINE NONE SEEN (0-1+); REFLEX CULTURE, URINE No (No); WHITE BLOOD CELLS, URINE 0-1 /HPF (0-5)
[2024-06-24] MEDS ORDERED: FLUCONAZOLE 150 MG TAB PO ONE (01:30)
[2024-06-24] MEDS ORDERED: LIDOCAINE & ANTACID 35 ML BTL PO ONE (01:30)
[2024-06-24] MEDS ORDERED: INSULIN LISPRO 100 UNIT/ML ML IV ONE (01:30)
[2024-06-24] MEDS ORDERED: ORPHENADRINE C100 MG PO (02:01)
[2024-06-24 02:23] VITALS: BP 164/109
[2024-06-25] MEDS ORDERED: ONDANSETRON ODT8 MG PO (07:32)
[2024-06-25] MEDS ORDERED: ORPHENADRINE C100 MG PO (07:33)
== END 2024-06-24 02:27 | disposition home or self-care (01) ==
LOC: ED 23:41
PROVIDERS: Family Medicine
DX: E11.65 Type 2 diabetes mellitus with hyperglycemia (principal); K86.1 Other chronic pancreatitis; E11.22 Type 2 diabetes mellitus with diabetic chronic kidney disease; I12.9 Hypertensive chronic kidney disease with stage 1 through stage 4 chronic kidney disease, or unspecified chronic kidney disease; N18.9 Chronic kidney disease, unspecified; Z88.0 Allergy status to penicillin; Z88.2 Allergy status to sulfonamides; Z88.1 Allergy status to other antibiotic agents; Z88.5 Allergy status to narcotic agent; Z88.8 Allergy status to other drugs, medicaments and biological substances; Z79.84 Long term (current) use of oral hypoglycemic drugs; Z79.82 Long term (current) use of aspirin; Z79.899 Other long term (current) 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; Z91.148 Patient's other noncompliance with medication regimen for other reason
CPT/HCPCS: 36415; 80053; 81001; 82010; 82803; 83690; 84703; 85025; 96374; 96375; 99284-25; A9270; J1815; J2270; J2405; J7030

== ENCOUNTER 2024-06-24 18:37 | Observation (INO) | payer OTHER ==
[~2024-06-24] VITALS: Ht 149.9 cm; Wt 45.6 kg
[~2024-06-24 18:37] MED LIST changes: +ORPHENADRINE C100 MG PO; +SEVOFLURANE 250 ML BTL INH ONE
[2024-06-24] MEDS ORDERED: IBLOOD GLUCOSE TEST STRIP 1 EA TEST XX ONE (20:00)
[2024-06-24] MEDS ORDERED: PROCHLORPERAZINE EDISYLATE 10 MG/2 ML VIAL IV ONE (20:00)
[2024-06-24] MEDS ORDERED: SODIUM CHLORIDE 0.9% 1,000 ML IV ONE ×2 (20:00)
[2024-06-24 20:38] LABS: PH, VENOUS 7.341 (7.31-7.41)
[2024-06-24 20:39] LABS: BASOPHILS 0.8 % (0-2); EOSINOPHILS 1.6 % (0-6); HEMATOCRIT 30.1 % (35.0-50.0); HEMOGLOBIN 9.8 g/dL (12.0-18.0); LYMPHOCYTES 27.2 % (24-44); MCH 28.7 (27-36); MCHC 32.6 g/dl (30-36); MCV 87.8 fl (81-99); MONOCYTES 6.8 % (0-12); NEUTROPHILS 63.6 % (39-80); PLATELET COUNT 356 K/uL (140-440); RBC 3.43 M/ul (4.3-5.7); RDW 17.1 (10.5-15.0)
[2024-06-24] MEDS ORDERED: LIDOCAINE & ANTACID 35 ML BTL PO ONE (20:45)
[2024-06-24 20:54] LABS: ALBUMIN 3.7 g/dL (3.4-5.0); ALBUMIN/GLOBULIN RATIO 0.82 (1.1-2.4); ANION GAP 16.3 (7-21); BILIRUBIN, TOTAL 0.3 ng/dL (0.2-1.0); BUN/CREATININE RATIO 10.52 (6.0-28.6); CALCIUM 9.1 mg/dL (8.5-10.1); CREATININE, SERUM 2.09 mg/dL (0.55-1.02); POTASSIUM 4.3 mmol/L (3.5-5.1); PROTEIN, TOTAL 8.2 g/dL (6.4-8.2)
[2024-06-24] MEDS ORDERED: diphenhydrAMINE HCL 50 MG/ML VIAL IV ONE (21:00)
[2024-06-24] MEDS ORDERED: DEXTROSE 5% - NACL 0.9% 1,000 ML IV SCH (21:15)
[2024-06-24] MEDS ORDERED: DEXTROSE 5% - LACTATED RINGERS 1,000 ML IV SCH (21:30)
[2024-06-24] MEDS ORDERED: ondansetron HCL 4 MG/2 ML VIAL IV PRN (21:30)
[2024-06-24] MEDS ORDERED: CEFOXITIN SODIUM 2 GM in DEXTROSE 5% 100 ML IV ONE (21:30)
[2024-06-24] MEDS ORDERED: HYDROmorphone HCL 1 MG/ML SYR IV PRN (21:30)
[2024-06-24] MEDS ORDERED: ACETAMINOPHEN 325 MG TAB PO PRN (21:30)
[2024-06-24] MEDS ORDERED: FAMOTIDINE 20 MG/ 2 ML VIAL IV SCH (21:31)
[2024-06-24] MEDS ORDERED: diphenhydrAMINE HCL 50 MG/ML VIAL IV PRN (21:45)
[2024-06-24 21:47] LABS: BILIRUBIN, URINE NEGATIVE (negative); BLOOD/HGB, URINE NEGATIVE (Negative); KETONE, URINE NEGATIVE (Negative); LEUK ESTERASE, URINE NEGATIVE (negative); NITRITE, URINE NEGATIVE (negative)
[2024-06-24 21:51] LABS: EPITHELIAL CELLS, URINE SQUAMOUS 1+ /lpf (0-1+)
[2024-06-24 21:53] LABS: BACTERIA, URINE RARE /hpf (negative); CASTS, URINE GRANULAR 1+ \\lpf; COLLECTION TYPE, URINE CLEAN CATCH; CRYSTALS, URINE NONE SEEN (0-1+); RED BLOOD CELLS, URINE 0-1 /hpf (0-5); WHITE BLOOD CELLS, URINE 0-1 /HPF (0-5)
[2024-06-24 21:54] LABS: REFLEX CULTURE, URINE No (No)
[2024-06-24] MEDS ORDERED: CEFOXITIN SODIUM 2 GM VIAL ONE (22:11)
--- NOTE | 2024-06-24 22:45 | NUR ---
pt ARRIVED TO THE FLOOR VIA STRETCHER. pt ABLE TO MOVE FROM THE STRETCHER TO THE BED VIA SCOOTING. ASSESSMENT AND VITAL SIGNS DONE. pt GOT UP TO THE BR. INDEPENDENT IN THE RM. pt DENIES ANY OTHER NEEDS AT THIS TIME. CALL LIGHT WITHIN REACH.
[2024-06-24 22:46] VITALS: BP 143/94
[2024-06-24 23:27] VITALS: BP 143/94
[2024-06-24] MEDS ORDERED: LORazepam 2 MG/ML VIAL IV PRN (23:45)
[2024-06-25] VITALS (14 sets, daily range): BP systolic 99–155; BP diastolic 61–95
--- NOTE | 2024-06-25 00:01 | NUR ---
PHONE CALL PLACED TO MD ABOUT pt REQUESTING ANXIETY MEDICATION. NEW ORDER PLACED AND VERIFIED WITH REPEAT BACK METHOD.
[2024-06-25] MEDS ORDERED: Insulin Regular, Human 100 UNIT/ML ML SUB-Q SCH ×2 (02:00→14:00)
[2024-06-25] MEDS ORDERED: IBLOOD GLUCOSE TEST STRIP 1 EA TEST VI SCH ×2 (02:00→14:00)
[2024-06-25] MEDS ORDERED: CEFOXITIN SODIUM 2 GM in DEXTROSE 5% 100 ML IV SCH (02:00)
--- NOTE | 2024-06-25 02:14 | NUR ---
pt RESTING IN THE BED. BG CHECKED WITH A RESULTS OF 174. SS INSULING ADMINISTERED. pt ASKS FOR THE OTHER HALF OF THE ANXIETY MEDICATION. THIS RN INFORMED THE pt THAT SHE IS OUT OF THE WINDOW FOR TITRATION AND SHE IS NOT DUE FOR A ANOTHER FEW HOURS. VITAL SIGNS AND ASSESSMENT DONE. pt DENIES ANY OTHER NEEDS AT THIS TIME. CALL LIGHT WITHIN REACH.
[2024-06-25] MEDS ORDERED: CEFOXITIN SODIUM 2 GM VIAL ONE (02:27)
--- NOTE | 2024-06-25 04:03 | NUR ---
pt RESTING IN THE BED WITH EYES CLOSED. RR EVEN AND UNLABORED. CALL LIGHT WITHIN REACH.
[2024-06-25 05:27] LABS: BASOPHILS 0.7 % (0-2); EOSINOPHILS 1.9 % (0-6); HEMATOCRIT 26.3 % (35.0-50.0); HEMOGLOBIN 8.5 g/dL (12.0-18.0); LYMPHOCYTES 41.3 % (24-44); MCH 28.9 (27-36); MCHC 32.5 g/dl (30-36); MONOCYTES 8.6 % (0-12); NEUTROPHILS 47.5 % (39-80); PLATELET COUNT 308 K/uL (140-440); RBC 2.96 M/ul (4.3-5.7); RDW 17.2 (10.5-15.0)
[2024-06-25 05:43] LABS: ALBUMIN/GLOBULIN RATIO 0.81 (1.1-2.4); ANION GAP 17.4 (7-21); BILIRUBIN, TOTAL 0.2 ng/dL (0.2-1.0); BUN/CREATININE RATIO 5.36 (6.0-28.6); CALCIUM 8.6 mg/dL (8.5-10.1); CREATININE, SERUM 3.17 mg/dL (0.55-1.02); MAGNESIUM 2.3 mg/dL (1.8-2.4); POTASSIUM 4.4 mmol/L (3.5-5.1); PROTEIN, TOTAL 6.7 g/dL (6.4-8.2)
--- NOTE | 2024-06-25 06:08 | NUR ---
pt RESTED THROUGH OUT THE NIGHT. PRN PAIN MEDS NEEDED IN THE MORNING TIME. PRN ANXIETY MEDS ADMINISTERED, NEEDED. pt HAS ACTIVE BOWEL TONES. NO OTHER CONCERNS AT THIS TIME.
--- NOTE | 2024-06-25 07:24 | NUR ---
In to speak with Milly. Spouse and pt tired. Spouse sleeping. Pt shakes head "no" when I ask if there are any changes. Will fu with her later as she is tired and attempting to rest. Per RN, pt will go to surgery at 10:30.
[2024-06-25] MEDS ORDERED: ONDANSETRON ODT8 MG PO (07:32)
[2024-06-25] MEDS ORDERED: ORPHENADRINE C100 MG PO (07:33)
[2024-06-25] MEDS ORDERED: PROMETHAZINE HC25 M1 PO (07:34)
--- NOTE | 2024-06-25 07:34 | NUR ---
MED REC COMPLETE
--- NOTE | 2024-06-25 08:04 | NUR ---
Patient awake, alert and oriented x4, no acute distress. Patient reports 9/10 abdominal pain, admin dilaudid 0.5mg IV slow push. Pt denies nausea. Pre op check list completed with patient. Patient aware she is to go to surgery to follow this morning.
--- NOTE | 2024-06-25 09:17 | NUR ---
Admin ativan 0.25mg IV for patient complaints of anxiety.
--- NOTE | 2024-06-25 10:51 | NUR ---
UR CLINICAL REVIEW: [facility]ETS OBS CRITERIA FOR GALLBADDER INFLAMMATION GUIDELINE DMAP OBS 06/24/24 @ 2127 ORDER MATCHES REG NO AUTH REQUIRED PER MEDICAID PLAN TO DC TO HOME WITH SPOUSE WHEN STABLE 06/26/24
[2024-06-25] MEDS ORDERED: ondansetron HCL 4 MG/2 ML VIAL IV PRN ×2 (11:45→17:45)
[2024-06-25] MEDS ORDERED: IBLOOD GLUCOSE TEST STRIP 1 EA TEST XX PRN (11:45)
[2024-06-25] MEDS ORDERED: SODIUM CHLORIDE 0.9% 1,000 ML IV SCH (11:45)
[2024-06-25] MEDS ORDERED: GLUCAGON,HUMAN RECOMBINANT 1 MG/ML VIAL SUB-Q PRN (11:45)
[2024-06-25] MEDS ORDERED: DEXTROSE 5% 1,000 ML IV PRN (11:45)
[2024-06-25] MEDS ORDERED: DEXTROSE 50% 50 ML SYR IV PRN ×2 (11:45)
[2024-06-25] MEDS ORDERED: HYDROmorphone HCL 1 MG/ML SYR IV PRN (12:00)
[2024-06-25] MEDS ORDERED: PHARMACY RENAL DOSE ADJUSTMENT 1 DOSE MISC PO SCH (12:00)
--- NOTE | 2024-06-25 12:07 | NUR ---
Patient reports continued itching. Spoke with Dr. Michel-per his report he will place order for topical benadryl.
--- NOTE | 2024-06-25 12:21 | NUR ---
Admin dilaudid 0.5mg iv for reports of 7/10 abdominal pain.
--- NOTE | 2024-06-25 12:36 | NUR ---
Admin benadryl 25mg IV for reports of itching.
[2024-06-25] MEDS ORDERED: diphenhydrAMINE 2% CREAM TUBE TOP PRN (13:15)
--- NOTE | 2024-06-25 14:39 | NUR ---
Patient crying, she reports she has lots of anxiety. Discussed with Dr. Michel. DEREK to change current ativan duration to every 3-6 hours. Patient updated with plan of care. Discussed with patient labs will be drawn again around 1500 per doc order, pt reports her understanding. at bedside with patient.
[2024-06-25] MEDS ORDERED: LORazepam 2 MG/ML VIAL IV PRN (14:45)
--- NOTE | 2024-06-25 14:45 | NUR ---
Admin ativan 0.25mg IV at this time for anxiety.
[2024-06-25 15:24] LABS: ALBUMIN 3.2 g/dL (3.4-5.0); ALBUMIN/GLOBULIN RATIO 0.78 (1.1-2.4); ANION GAP 17.2 (7-21); BILIRUBIN, TOTAL 0.2 ng/dL (0.2-1.0); BUN/CREATININE RATIO 4.6 (6.0-28.6); CALCIUM 8.4 mg/dL (8.5-10.1); CREATININE, SERUM 3.69 mg/dL (0.55-1.02); POTASSIUM 4.2 mmol/L (3.5-5.1); PROTEIN, TOTAL 7.3 g/dL (6.4-8.2)
[2024-06-25] MEDS ORDERED: LACTATED RINGER'S 1,000 ML IV SCH (15:45)
[2024-06-25] MEDS ORDERED: CEFAZOLIN SODIUM 1 GM/10 ML SYR IV ONE (15:45)
[2024-06-25] MEDS ORDERED: KETOROLAC TROMETHAMINE 30 MG/ML VIAL IV PRN (15:45)
--- NOTE | 2024-06-25 15:50 | NUR ---
Admin dilaudid 0.5mg iv for reports of 9/10 abdominal pain.
[2024-06-25] MEDS ORDERED: DEXAMETHASONE SOD PHOS 4 MG/ML VIAL ONE (16:15)
[2024-06-25] MEDS ORDERED: FAMOTIDINE 20 MG/ 2 ML VIAL ONE (16:15)
[2024-06-25] MEDS ORDERED: MIDAZOLAM HCL 2 MG/2 ML VIAL ONE (16:15)
[2024-06-25] MEDS ORDERED: fentaNYL citrate 100 MCG/2 ML VIAL ONE (16:15)
[2024-06-25] MEDS ORDERED: KETOROLAC TROMETHAMINE 30 MG/ML VIAL ONE (16:15)
[2024-06-25] MEDS ORDERED: LACTATED RINGER'S 1,000 ML IV ONE (16:15)
[2024-06-25] MEDS ORDERED: LIDOCAINE HCL 4% 5 ML AMP ONE (16:15)
[2024-06-25] MEDS ORDERED: SUGAMMADEX SODIUM 200 MG/2 ML ML ONE (16:15)
[2024-06-25] MEDS ORDERED: ROCURONIUM BROMIDE 50 MG/5 ML SYR ONE (16:15)
[2024-06-25] MEDS ORDERED: ondansetron HCL 4 MG/2 ML VIAL ONE (16:15)
[2024-06-25] MEDS ORDERED: SUCCINYLCHOLINE IN 0.9% NACL 200 MG/10 ML SYRINGE ONE (16:15)
[2024-06-25] MEDS ORDERED: METOCLOPRAMIDE HCL 10 MG/2 ML SDV ONE (16:15)
[2024-06-25] MEDS ORDERED: SODIUM CHLORIDE 0.9% 40 ML IV ONE (16:19)
[2024-06-25] MEDS ORDERED: BUPIVACAINE HCL 0.25% 50 ML MDV ONE (16:19)
[2024-06-25] MEDS ORDERED: iopamidoL 30 ML VIAL ONE (16:19)
[2024-06-25] MEDS ORDERED: ETOMIDATE 40 MG/20 ML VIAL ONE (16:23)
--- NOTE | 2024-06-25 16:35 | NUR ---
Patient left unit with surgery crew.
[2024-06-25] MEDS ORDERED: ACETAMINOPHEN 1,000 MG/100 ML VIAL ONE (17:40)
[2024-06-25] MEDS ORDERED: METOCLOPRAMIDE HCL 10 MG/2 ML SDV IV PRN (17:45)
[2024-06-25] MEDS ORDERED: MORPHINE SULFATE 10 MG/ML VIAL IV PRN (17:45)
[2024-06-25] MEDS ORDERED: PROCHLORPERAZINE EDISYLATE 10 MG/2 ML VIAL IV PRN (17:45)
[2024-06-25] MEDS ORDERED: droPERidol 5 MG/2 ML VIAL IV PRN (17:45)
[2024-06-25] MEDS ORDERED: NALOXONE HCL 0.4 MG SYR IV PRN (17:45)
[2024-06-25] MEDS ORDERED: IBLOOD GLUCOSE TEST STRIP 1 EA TEST VI PRN (17:45)
[2024-06-25] MEDS ORDERED: HYDROCODONE/ACETA 5/325 TAB PO PRN (18:30)
--- NOTE | 2024-06-25 18:51 | NUR ---
06/25/24 185 Sofia Coyle 180-PT ARRIVED TO PACU ON 12L O2 VIA MASK. OPA IN PLACE AND JAW THRUST REQUIRED TO MAINTAIN O2 SATS. SATS IN UPPER 80'S ANESTHIS AT BEDSIDE. HEAD REPOSITIONED. SATS INCREASING. REST OF VSS. 1809-SURGICAL SITES OBSERVED. NOTED LAP SITES TO ABD X4 WITH SS IN PLACE. SMALL AMT OF SANGUINOUS DRAINAGE NOTED AT UMBILLICAL LAP SITE. 1811-NPA PLACED BY MILL FEEDER TO IMPROVE SATS. SATS INCREASED TO MID 90'S ON 12L/MASK WITH OPA IN PLACE WELL. RR APPEARS EVEN AND UNLABORED. 1814-JAW THRUST RELEASED. PT MAINTAINING SATS IN UPPER 90'S WITH NPA, OPA, AND 12L/MASK. 1815-CBG 254 PER CGM READING. ABD IS SOFT AND NON-DISTENDED.
[2024-06-25] MEDS ORDERED: LABETALOL HCL 20 MG/4 ML VIAL ONE ×2 (19:01→19:26)
[2024-06-25] MEDS ORDERED: LABETALOL HCL 20 MG/4 ML VIAL IV PRN (19:05)
--- NOTE | 2024-06-25 19:25 | NUR ---
REPORT RECEIVED FROM ELSIE RUDD, PT REMAINS IN PACU AT THIS TIME. IN ROOM AWAITING RETURN OF PT.
[2024-06-25] MEDS ORDERED: hydrALAZINE HCL 20 MG/ML VIAL ONE (19:26)
[2024-06-25] MEDS ORDERED: droPERidol 5 MG/2 ML VIAL ONE (19:42)
--- NOTE | 2024-06-25 20:04 | NUR ---
PT RETURNED TO ROOM 107 PER BED, PT RESTING QUIETLY WITH EYES CLOSED, SKIN PALE WARM, RESP EVEN AND REG AT 20/MIN, OXYGEN ON AT 2L/NC, LAP SITE RIGHT ABDOMEN WITH SMALL SERO SANG DRAINAGE, SITE OVER UMBILICUS WITH SMALL SERO SANG DRAINAGE, ABDOMEN SOFT, SCDS IN PLACE, IV PATENT LEFT WRIST, SITE INTACT, IVF INFUSING WELL, HUSBBAND AT BEDSIDE, SR UP X 4.
--- NOTE | 2024-06-25 20:15 | NUR ---
PT WANTING TO GO TO BR, ATTEMPTING TO GET OUT OF BED, ASSISTED TO BSC, UNABLE TO VOID AFTER A FEW MINUTES, NOTED INCONTINENT OF URINE ON CHUX, LINEN CHANGED, BACK TO BED, TENISHA TO SLEEP, HOB ELEVATED APPROX 21 DEGRESS, SR UP X 4, BED ALARM ON, OXYGEN REMAINS IN PLACE.
--- NOTE | 2024-06-25 20:22 | NUR ---
FINGER STICK ACCUCHECK DONE AND 383, IV PLACED ON PUMP, INFUSING WELL AT 85ML/HR.
[2024-06-25] MEDS ORDERED: FAMOTIDINE 20 MG/ 2 ML VIAL IV SCH (21:00)
[2024-06-25] MEDS ORDERED: INSULIN GLARGINE-YFGN 100 UNIT/ML ML SUB-Q SCH (21:00)
--- NOTE | 2024-06-25 21:02 | NUR ---
DR SIMMONS UPDATED ON PT'S ACCUCHECK OF 383, MD STATES TO GIVE THE 11 UNITS OF REGULAR INSULIN, MD ORDERED LONG ACTING INFUSING AND PT GIVEN 20UNITS PER ORDER.
--- NOTE | 2024-06-25 21:11 | NUR ---
VS COMPLETED AND STABLE, ABD LAP SITES UNCHANGED, WITH SCANT SERO SANG DRAINAGE, ABDOMEN ROUND BUT SOFT, PT HAD APPROX 25ML LIGHT GREEN EMESIS A FEW MINUTES EARILIER, BACK TO SLEEP WHEN LEFT UNDISTURBED.
--- NOTE | 2024-06-25 21:34 | NUR ---
PT MOANING, STATING ABDOMEN HURTS, TO NURSES DESK TO ASK FOR MEDICATION, PT STATES SHE WANTS TO GO HOME, MEDICATED WITH DILAUDID 0.5MG SLOW IV PUSH, PT RESTING WITH EYES CLOSED, BED LOW POSITION, BED ALARM ON.
[2024-06-25] MEDS ORDERED: CEFAZOLIN SODIUM 1 GM/10 ML SYR IV SCH (22:00)
--- NOTE | 2024-06-25 22:20 | NUR ---
PT RESTING QUIETLY WITH EYES CLOSED, VS COMPLETED AND STABLE, ABDOMEN REMAINS ROUND BUT SOFT, SCANT SEROUS SANG DRAINAGE FROM LAP SITES, IV PATENT. ASLEEP ON COUCH.
--- NOTE | 2024-06-25 22:49 | NUR ---
ALARM WAS HEARD FROM PT ROOM. BATTERY SERVICE TECHNICIAN FOUND THAT THE ALARM WAS PT PERSONAL GLUCOMETER. BATTERY SERVICE TECHNICIAN WOKE PT AND ASKED WHY IT WAS ALARMING. PT STATED THAT IT NEEDED TO BE PLUGGED IN. PT THEN STATED THAT SHE NEEDED TO USE BATHROOM. BATTERY SERVICE TECHNICIAN SBA TO BATHROOM. PT VOIDED AND WAS ASSISTED BACK TO BED. PT STATED THAT SHE WAS IN PAIN THEN PROCEEDED TO FALL BACK ASLEEP. RN NOTIFED AND FIXED [facility] ALARM.
--- NOTE | 2024-06-25 23:26 | NUR ---
VS COMPLETED AND STABLE, LAP SITES UNCHANGED, PT SLEEPING, CPOX IN PLACE AND AT 96%, PT FOUND TO BE ON RA, WILL MONITOR. IVF INFUSING WELL, SKIN WARM AND DRY, PT WITHOU REQUEST, BED ALARM ON.
--- NOTE | 2024-06-26 00:28 | NUR ---
PT AWAKE, REQUESTING TO GO TO BR, VOIDED 400ML LIGHT YELLOW URINE, GAIT STEADY, 1PA, BACK TO BED, SCDS TURNED BACK ON, IVF PATENT, PT ASKING IF HER BELLY GOT CUT, SHOWED LAP SITES TO PT, PT ALSO ASKING IF SHE IS BACK AT [facility], ASKING FOR PAIN MED BUT BACK TO SLEEP QUICKLY WHEN BACK TO BED, PLAN TO WAIT TO SEE IF PT ABLE TO CONTINUE TO SLEEP.
--- NOTE | 2024-06-26 01:30 | NUR ---
PT APPEARS TO SLEEP, EYES CLOSED, RESP EVEN AND REG, IVF INFUSING WELL.
[2024-06-26 01:51] VITALS: BP 114/81
--- NOTE | 2024-06-26 01:58 | NUR ---
VP SECURITY OBTAINED VITALS AND I&O. PT STATED THAT SHE WANTED TO USE THE BATHROOM. VP SECURITY SBA PT TO BATHROOM. PT VOIDED AND IS NOW BACK IN BED. PT COMPLIANIN GOF PAIN. RN NOTIFED. PT STATES NO OTHER NEEDS AT THIS TIME. CALL LIGHT WITHIN REACH.
--- NOTE | 2024-06-26 02:20 | NUR ---
PT REQUESTING PAIN MEDICATION FOR ABDOMINAL DISCOMFORT 06/24, MEDICATED WITH DILAUDID 0.5MG IV, PT THEN REQUESTING BENADRYL FOR USUAL ITCHING, MEDICATED PER ORDER. ABDOMINAL STERI STRIPS CONT WITH SCANT SERO SANG DRAINAGE, ABD ROUNDED BUT SOFT.
--- NOTE | 2024-06-26 02:31 | NUR ---
ACCUCHECK 364, PT GIVEN 9U OF REGULAR INSULIN SQ PER SS. PT RESTING WITH EYES CLOSED, RESP EVEN AND REG, CPOX AT 96% ON ROOM AIR.
--- NOTE | 2024-06-26 02:32 | NUR ---
PT GIVEN DIET SODA PER REQUEST, TOLERATED SIPS WITHOUT N/V.
--- NOTE | 2024-06-26 02:56 | NUR ---
PT REPORTS ITCHING ON FACE, DISCUSSED RN GAVE BENADRYL IV AT 0216, OFFERED BENADYRL CREAM, PT DECLINES, STATING SHE NORMALLY TAKES BENADRYL 50MG, DISCUSSED LIMITATIONS OF ORDER. PLAN TO MONITOR.
--- NOTE | 2024-06-26 03:11 | NUR ---
EDGE BANDING MACHINE OFFBEARER GAVE PT A HOT PACK WRAPPED IN A PILLOW CASE.
--- NOTE | 2024-06-26 03:14 | NUR ---
TC TO DR SIMMONS TO REPORT PT REQUESTING DOSAGE OF BENADRYL TO BE INCREASED TO 50MG IV Q 6 PRN, ORDERS RECEIVED FOR RANGE OF 25-50MG IV PRN ITCHING.
[2024-06-26] MEDS ORDERED: diphenhydrAMINE HCL 50 MG/ML VIAL IV PRN (03:15)
--- NOTE | 2024-06-26 03:32 | NUR ---
PT C/O PAIN IN ABDOMEN WHEN SHE MOVES, REQUESTING EXTRA 25MG OF BENADRYL, UP TO BR TO VOID 400ML LIGHT YELLOW URINE, BACK TO BED, GOWN CHANGED, MEDICATED WITH BENADRYL 25MG IV, IV SITE PATENT. PT RESTING WITH EYES CLOSED, RESP EVEN AND REG, CPOX AT 97%.
[2024-06-26 04:49] VITALS: BP 142/92
[2024-06-26 04:51] VITALS: BP 142/92
--- NOTE | 2024-06-26 04:54 | NUR ---
RN CALLED TO ROOM, PT C/O ABDOMINAL PAIN 06/24, REQUESTING MEDICATION, MEDICATED WITH DILAUDID 0.5MG IV PER ORDER, VS DONE, BP AND HR ELEVATED, POSSIBLY DUE TO PAIN, PLAN TO MONITOR, PT RESTING QUIETLY AFTER MEDICATION GIVEN, OXY SATS STABLE ON RA.
--- NOTE | 2024-06-26 05:32 | NUR ---
prn anxiety medication given-see emar. iv site wnl, fluids infusing wnl. cpox in place, rr even and unlabored, on ra. spo2 upper 90's, hr 111.
[2024-06-26 05:35] LABS: BASOPHILS 0.6 % (0-2); HEMATOCRIT 27.3 % (35.0-50.0); HEMOGLOBIN 8.7 g/dL (12.0-18.0); LYMPHOCYTES 7.5 % (24-44); MCH 28.5 (27-36); MCV 89.1 fl (81-99); MONOCYTES 2.6 % (0-12); NEUTROPHILS 89.3 % (39-80); PLATELET COUNT 310 K/uL (140-440); RBC 3.07 M/ul (4.3-5.7); RDW 17.1 (10.5-15.0)
[2024-06-26 05:56] LABS: ALBUMIN 3.2 g/dL (3.4-5.0); ALBUMIN/GLOBULIN RATIO 0.8 (1.1-2.4); ANION GAP 23.2 (7-21); BILIRUBIN, TOTAL 0.2 ng/dL (0.2-1.0); BUN/CREATININE RATIO 8.09 (6.0-28.6); CALCIUM 9.2 mg/dL (8.5-10.1); CREATININE, SERUM 2.84 mg/dL (0.55-1.02); PHOSPHORUS, INORGANIC 3.3 mg/dL (2.5-4.9); POTASSIUM 4.2 mmol/L (3.5-5.1); PROTEIN, TOTAL 7.2 g/dL (6.4-8.2)
--- NOTE | 2024-06-26 06:03 | NUR ---
PT C/O PAIN NEAR IV, SITE ASSESSED, BLOOD RETURN NOTED AND FLUSHES WELL, PT TEARFUL STATING SHE IS HAVING ABD PAIN, DISCUSSED TIMING OF MEDICATION. PT ATTEMPTING TO REST.
--- NOTE | 2024-06-26 06:44 | NUR ---
PT TEARFUL, C/O ABDOMINAL PAIN, MEDICATED WITH 1 NORCO WITH SMALL AMOUNT OF SUGAR FREE PUDDING, PT DESIRES TO VOID USING BSC, VOIDING LIGHT YELLOW URINE, PT DESIRES TO HAVE SCDS OFF AT THIS TIME, RESTING.
--- NOTE | 2024-06-26 07:59 | NUR ---
Patient awake, alert and oriented x4. Patient requesting pain medication for reported 7/10 abdominal pain. Patient denies nausea. Lap sites have steri strips, old dried sersang drainage noted. Dilaudid 0.5mg iV admin at this time. Patient denies further needs, call light within reach.
[2024-06-26] MEDS ORDERED: INSULIN LISPRO 100 UNIT/ML ML SUB-Q SCH (08:00)
[2024-06-26] MEDS ORDERED: IBLOOD GLUCOSE TEST STRIP 1 EA TEST VI SCH (08:00)
[2024-06-26] MEDS ORDERED: CEFAZOLIN SODIUM 1 GM/10 ML SYR IV SCH ×2 (08:00→21:00)
--- NOTE | 2024-06-26 09:15 | NUR ---
Patient ambulated in hallway, x1 lap. Patient tolerated well. Benadryl 50mg IV admin for reports of generalized itching. remains at bedside. IV patent, fluids infusing per order.
[2024-06-26 09:30] VITALS: BP 142/86
--- NOTE | 2024-06-26 10:08 | NUR ---
ATIVAN 0.25MG IV ADMIN AT THIS TIME FOR REPORTS OF ANXIETY.
--- NOTE | 2024-06-26 10:34 | NUR ---
Patient found with IV fluid tubing removed from IV site, fluids running freely on the floor. Patient denies removding IV line from her site. Patient reporting increased abdominal pain. Dilaudid 0.5mg IV admin at this time. Extensive education provided to patient about plan of care and keeping IV fluids running. Bed alarm intact.
--- NOTE | 2024-06-26 10:48 | NUR ---
ADMIN NORCO 5/325MG PO WITH A SNACK FOR REPORTS OF 7/10 ABDOMINAL PAIN.
[2024-06-26 10:55] VITALS: BP 142/86
[2024-06-26 11:44] LABS: ANION GAP 20.2 (7-21); BUN/CREATININE RATIO 8.01 (6.0-28.6); CALCIUM 9.4 mg/dL (8.5-10.1); CREATININE, SERUM 2.62 mg/dL (0.55-1.02); POTASSIUM 4.2 mmol/L (3.5-5.1)
--- NOTE | 2024-06-26 12:10 | NUR ---
THIS RN IN PTs ROOM DIETARY TO NURSES STATION REPORTING PT "SPILLED COFFEE ON FLOOR." UPON ENTERING ROOM PT IS NOTED TO BE STANDING AT FOOT OF BED EATING LUNCH. COFFEE NOTED TO BE SPILLED ON FLOOR. COFFEE CLEANED UP. PT REQUESTING NEW SOCKS AND ICE AND DIET SHIRA, ALL PROVIDED. DR. SIMMONS IN ROOM AND TALKS WITH PT. PT DENIES ANY OTHER NEEDS FROM THIS RN. PT REMAINS STANDING AT FOOT OF BED. PTs SIGNIFICANT OTHER IN ROOM. CALL LIGHT IN REACH.
--- NOTE | 2024-06-26 12:15 | NUR ---
PT PER PRIMARY RN IS TURNING OFF PUMP/DISCONNECTING IV FROM LINE. PT IS UP IN THE BATHROOM, STATES SHE REALLY JUST WANTS TO GO HOME. DISCUSSED WITH DR. SUTHERLAND REVIEWED LABS OVER THE PHONE WITH HIM. PER DR. SUTHERLAND PATIENT OKAY TO DISCHARGE HOME, DISCHARGE WITH OTC MOTRIN/TYLENOL. DISCUSSED CASE WITH DR. SIMMONS AND HE WANTED TO RECHECK BMP AND WE ARE PENDING THOSE RESULTS.
--- NOTE | 2024-06-26 12:59 | NUR ---
Patient requesting to dicharge home. Charge nurse Dee touched base with Dr. Loza via phone. Orders placed for discharge per doc order.
[2024-06-26] MEDS ORDERED: OXYBUTYNIN CHLOR5 MG PO (13:03)
[2024-06-26] MEDS ORDERED: OXYCODONE HCL5 MG PO (13:06)
[2024-06-26 13:10] VITALS: BP 141/93
[2024-06-27] MEDS ORDERED: FAMOTIDINE 20 MG TAB PO SCH (09:00)
--- NOTE | 2024-06-27 14:26 | OR ---
[facility] [address], [place] [address] Signed DATE OF OPERATION: 06/25/2024 SURGEON: Wendi Sutherland MD PREOPERATIVE DIAGNOSES: 1. Acute calculous cholecystitis. 2. Recent history of pancreatitis. 3. 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 4. Acute renal insufficiency. 5. Diabetes mellitus. POSTOPERATIVE DIAGNOSES: 1. Acute Acalculous cholecystitis. 2. Recent history of pancreatitis. 3. 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 4. Acute renal insufficiency. 5. Diabetes mellitus. PROCEDURES: 1. Laparoscopic cholecystectomy with intraoperative cholangiogram. 2. Surgeon-directed fluoroscopy. ANESTHESIA: General endotracheal. Wendi Dumont CRNA and local 0.25% Marcaine with epinephrine. INDICATION: This 24-year-old woman is a patient of Jorden El at [facility] and has other providers as well. She has numerous medical problems including a distant history 19 years ago of acute lymphocytic leukemia for which she underwent ultimately a bone marrow transplant. 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 She also has diabetes and longstanding chronic renal failure and chronic anemia. She was evaluated a month ago for acute pancreatitis, discharged from home at that time. Evaluation in the past has included a CCK-HIDA test two years ago, which showed a normal ejection fraction, but reproduction of her symptoms of right upper quadrant pain. She has seen Dr. Dumont, who was consulted a few days ago on this, but the patient failed to show to her appointment the following day. She represented to the emergency room with similar symptoms of right upper abdominal pain radiating to the back and a gallbladder ultrasound performed, which showed sludge in the gallbladder and possible stones that Electronically Signed By: WENDI SUTHERLAND MD 06/27/24 1426 PATIENT NAME: MONTSE GUTIERREZ OPERATIVE REPORT DATE OF : [birth year] REPORT #: [id number] PHYSICIAN: WENDI SUTHERLAND MD PCP: JORDEN EL RN IMCU-BC REPORT IS CONFIDENTIAL AND NOT TO BE RELEASED WITHOUT AUTHORIZATION [facility] [address], [place] [address] Signed was uncertain. She has an isolated elevated alkaline phosphatase of greater than 600, but normal liver enzymes otherwise and normal bilirubin. Given her constellation of symptoms and so forth. I have recommended cholecystectomy. As it turns out she is said to have a planned cholecystectomy in September by Dr. Dumont. The risk of bleeding, infection, bile duct injury, and most importantly failure to cure her symptoms was reviewed in detail. She understands as does her and they wish to proceed. FINDINGS: Indeed the gallbladder was hyperemic and distended. The patient has a small body habitus only 4 feet 11 inches tall and the gallbladder was correspondingly small as well. The gallbladder once excised showed no sign of stones or sludge, though she did have definitely significant edema of the gallbladder itself. There were omental adhesions to it as well. Cholangiogram was performed which was normal. Liver was normal as well. PROCEDURE: The patient was brought to the operating room, given a general endotracheal anesthetic. Preoperative antibiotic Ancef was given. Sequential compression device stockings used and Pepcid had been given previously. After satisfactory general endotracheal anesthesia, the abdomen was prepared with a chlorhexidine solution and draped sterilely. An infraumbilical incision was made and using an open Angel cannula technique, pneumoperitoneum achieved to a level of 14 mmHg of carbon dioxide gas. Intra-abdominal inspection showed no sign of ascites or carcinomatosis. The gallbladder was obscured from view initially. Three additional trocars were placed in usual configuration in the subxiphoid, right midclavicular, and right anterior axillary line. The gallbladder was grasped and elevated cephalad and was found to be tense and distended and could not really be well secured and therefore decompression of the gallbladder was undertaken in the puncture site grasped with the endoscopic device and elevated cephalad. Omental adhesions to the undersurface of the gallbladder were taken down with blunt electrocautery dissection. Further elevation of the gallbladder was accomplished and retraction laterally undertaken using blunt electrocautery dissection with meticulous care. The infundibulum was dissected free and the cystic duct ultimately identified very well. A very small cystic artery was noted cephalad, which did not require clips separately. Once the critical view of safety was assured, a clip was applied across gallbladder cystic duct junction and transverse choledochotomy made in the cystic duct. Intraoperative cholangiography was undertaken showing free flow of contrast in biliary tree with prompt emptying into the duodenum. There was no sign of filling defect, Electronically Signed By: WENDI SUTHERLAND MD 06/27/24 1426 PATIENT NAME: MONTSE GUTIERREZ OPERATIVE REPORT DATE OF : [birth year] REPORT #: [id number] PHYSICIAN: WENDI SUTHERLAND MD PCP: JORDEN EL [facility]- REPORT IS CONFIDENTIAL AND NOT TO BE RELEASED WITHOUT AUTHORIZATION [address] [address] Signed biliary anomalies or other problem. The catheter was removed. The cystic duct was then triply clipped and divided with meticulous care. The gallbladder was dissected free in a retrograde fashion provided no entry into the gallbladder during the course of dissection. The gallbladder was placed in an endobag [id number] and extracted through the infraumbilical port site opened on the back table. There was no actual stone and I did not particularly see gravel or sludge. There was mild chronic inflammation of mucosa. Irrigation was undertaken in subhepatic space with no sign of bile leak, bleeding, or other problems. The trocars removed under direct visualization. There was some persistent oozing at the epigastric port and on that basis, a Rouse-Alvarado device was used to secure the fascia with 0-Vicryl, which allowed for complete hemostasis. A 10 mL of 0.25% Marcaine with epinephrine injected locally at the trocar sites and the skin closed with interrupted 3-0 Vicryl. Steri-Strips were applied. The patient was ultimately extubated in the operating room, transferred to the recovery room in good condition having suffered no complications. Sponge, needle, and instruments counts reported as correct x3. MD CHHAYA Deutsch/GINGER /[id number] cc: Cherry Dumont MD Jorden Isaiah [place], [facility] Massimo Michel MD [facility], Hospitalist Lashae Sierra, [facility] Electronically Signed By: WENDI SUTHERLAND MD 06/27/24 1426 PATIENT NAME: MONTSE GUTIERREZ OPERATIVE REPORT DATE OF : [birth year] REPORT #: [id number] PHYSICIAN: WENDI SUTHERLAND MD PCP: JORDEN EL REPORT IS CONFIDENTIAL AND NOT TO BE RELEASED WITHOUT AUTHORIZATION [address] [address] Signed Copies: CHERRY DUMONT MD ~ Electronically Signed By: WENDI SUTHERLAND MD 06/27/24 1426 PATIENT NAME: MONTSE GUTIERREZ OPERATIVE REPORT DATE OF : [birth year] REPORT #: [id number] PHYSICIAN: WENDI SUTHERLAND MD PCP: JORDEN EL REPORT IS CONFIDENTIAL AND NOT TO BE RELEASED WITHOUT AUTHORIZATION
--- NOTE | 2024-06-27 14:26 | HP ---
[facility] [address] [place], [place] [address] Signed ADMISSION DATE: 06/25/2024 REASON FOR ADMISSION: Acute cholecystitis with sludge and underlying numerous medical problems. HISTORY OF PRESENT ILLNESS: This 24-year-old [place] woman presented to the emergency room for the 2nd time in the past few days and evaluated by Dr. Chao. Dr. Dumont had been called by Dr. Chao with the patient having abdominal pain and elevated alkaline phosphatase (isolated) and recommended to follow up in his office. Apparently that followup did not happen. She presented once again to the emergency room at approximately 10 o'clock last night. She had similar symptoms of right subcostal pain radiating into the right back area. Her evaluation three days previously included an ultrasound which showed sludge in the gallbladder and long-standing elevated alkaline phosphatase. The patient had a couple episodes of vomiting but no abdominal pain particularly other than what has been described. Unaware to me was a hospitalization recently managed by Dr. Lima on June 05, 2024, where the patient was admitted with acute pancreatitis. She has concurrent type 1 diabetes and was hyperglycemic as well. Her lipase was greater than at that time with creatinine of 3, her baseline 2.5. CT was negative for intra-abdominal abnormality without definitive evidence of pancreatitis proper, though there was subcutaneous stranding of overlying skin with thickening of the right lateral mid abdomen at the level of the umbilicus. Conservative management with IV fluids for her pancreatitis allowed for resolution of the problem. She was discharged with a regular diet at that time. She was recommended to follow up with her PCP and side door worker. Her PCP is MACKENZIE Almanzar at [facility] and she has an side door worker she sees in [place]. Her current symptoms are somewhat vague, but do include right subcostal and right subscapular pain. Quite notably her lab studies at present are notable primarily for a creatinine initially at 3.17, admission last night at 2000 hours 2.09. Her hematocrit at presentation was 30.1, now 26.3; platelet count 308,000 today. Urinalysis was essentially normal. Blood sugar at admission 298, this morning 102 last night. Consultation was undertaken with Dr. Massimo Michel, hospitalist who initiated sliding scale of insulin for her. At present, the patient is accompanied by her , a sibling, her mother and apparently father. 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 She is followed by an oncologist in [place] she says. The patient denies menstrual periods, likely related to developmental issues and therapy a number of years ago. REVIEW OF SYSTEMS: She denies any chest pain or shortness of breath. She has some persistent right upper abdominal and right subscapular pain. PHYSICAL EXAMINATION: GENERAL: This is a small [place] woman, who does not look systemically toxic. VITAL SIGNS: She is 4 feet 11 inches tall, 45.6 kg and a BMI of 20.3. HEENT: Mucous membranes are reasonably moist. NECK: Trachea is midline. VITAL SIGNS: Temperature is 98, pulse 100, respirations 16, blood pressure 139/88. CHEST: Clear. HEART: Regular. ABDOMEN: Nondistended. It is generally soft. There is no ascites. There is mild tenderness in the epigastric and right subcostal area. There is no palpable mass. LAB STUDIES: This morning show a white count of 5.2, hematocrit 26.3, platelets 308,000. Chem profile shows an elevated creatinine of 3.17 this morning, glucose 298. Alkaline phosphatase is 541. Other liver enzymes normal. Bilirubin 0.2. Imaging study including abdomen and pelvis CT performed on June 18, 2024 at previous ER evaluation showed mild prominence in the wall of the bladder, moderate distention of stomach with ingested material. No other abnormal problems other than scattered vascular calcifications greater than expected for age. She had a hepatobiliary scan in July of 2022, nearly two years ago, which did show reproduction of symptoms of right upper abdominal pain. This study ordered by Dr. Cherry Dumont at that time. Ejection fraction was 87%. Abdominal ultrasound performed June 21, 2024 showed sludge or noncalcified gallstones in the gallbladder. No sign of biliary obstruction. There was tenderness over the gallbladder during exam. ASSESSMENT: The patient has had long-standing biliary disease, now manifest as either stones or sludge. She had a positive CCK-HIDA test two years ago and she did have reproduction of symptoms with CCK-HIDA test, though the ejection fraction was normal. She has since suffered an episode of pancreatitis almost certainly related to the biliary sludge. Electronically Signed By: WENDI SUTHERLAND MD 06/27/24 1426 PATIENT NAME: MONTSE GUTIERREZ HISTORY AND PHYSICAL DATE OF : 99 REPORT #: [id number] PHYSICIAN: WENDI SUTHERLAND MD PCP: JORDEN HAYWOOD [facility]- REPORT IS CONFIDENTIAL AND NOT TO BE RELEASED WITHOUT AUTHORIZATION [facility] [address] [place], [place] [address] Signed Cholecystectomy is well indicated on the basis of these findings. She has medical problems which are complicated and previously unknown to me and anemia is a long-standing feature of her illness. Her hematocrit is 26, although it is 30 at presentation. Creatinine is elevated at 3.12, but presented at 2.0. She obviously has dehydration for which she likely would improve her creatinine. She is more hyperglycemic now than at time of admission. We will review her blood sugar management approach. Optimally, she would undergo cholecystectomy promptly and prevent other progression of problems including recurrent pancreatitis. I will review all this further with Dr. Michel, the hospitalist and we will see if we can optimize her for operation that she will deserves and needs. MD CHHAYA Deutsch/NEALL /[id number] cc: MD Dr. Jeremie Gallegos Dr. Copies: CHERRY DUMONT MD ~ Electronically Signed By: WENDI SUTHERLAND MD 06/27/24 1426 PATIENT NAME: MONTSE GUTIERREZ HISTORY AND PHYSICAL DATE OF : [birth year] REPORT #: [id number] PHYSICIAN: WENDI SUTHERLAND MD PCP: JORDEN HAYWOOD [facility]- REPORT IS CONFIDENTIAL AND NOT TO BE RELEASED WITHOUT AUTHORIZATION
--- NOTE | 2024-06-30 21:12 | PATH ---
[facility] [address] [place], [place] [address] Signed SPECIMEN(S): A GALLBLADDER SPECIMEN SOURCE: A. GALLBLADDER CLINICAL HISTORY: Acute cholecystitis FINAL PATHOLOGIC DIAGNOSIS: Gallbladder, cholecystectomy: - Gallbladder with no significant inflammation. - Focal mucosal erosion is present. Gallbladder wall with edema and focal extravasated blood. - Features are consistent with clinical impression of acute cholecystitis. - No calculi identified within the gallbladder, cystic duct, or specimen container. SDL MICROSCOPIC EXAMINATION: Histologic sections of all submitted blocks are examined by light microscopy. These findings, together with the gross examination, support the pathologic diagnosis. GROSS DESCRIPTION: The specimen, labeled and designated "WarrenPercy, gallbladder," is received in formalin and consists of Specimen: Previously opened gallbladder. Dimensions: 6.5 x 2.3 x 0.7 cm. Serosa: [place]-marlow smooth and glistening. Cystic Duct: Unobstructed. Calculi: No grossly identifiable calculi. Mucosa: [place] velvety. Wall thickness: 0.3 cm. Lymph node: No pericystic lymph nodes are grossly identified. Additional: None. Legislative Correspondent sections are submitted in (A1). CHHAAY (under the direct supervision of a pathologist) The Gross Description was prepared using a voice recognition system. The report was reviewed for accuracy; however, sound-alike word errors, addition and/or deletions may occur. If there are any questions about this report, please contact Client Services. PATIENT NAME: RASHMI GUTIERREZADDY KAHN PATHOLOGY DATE OF : [birth year] REPORT #: [id number] PHYSICIAN: LOGAN MONROE PCP: JORDEN HAYWOOD [facility] REPORT IS CONFIDENTIAL AND NOT TO BE RELEASED WITHOUT AUTHORIZATION [facility] [address] [facility] [place], [place] [address] Signed ADDITIONAL NOTES: Immunohistochemical and/or in situ hybridization studies if performed in this case included appropriate positive controls that reacted as expected. This test was developed and its performance characteristics determined by [facility]. It has not been cleared or approved by the U.S. Food and Drug Administration. The FDA has determined that such clearance or approval is not necessary. This test is used for clinical purposes. It should not be regarded as investigational or for research. [facility] is certified under the Clinical Laboratory Improvement Amendments of 1988 (CLIA) as qualified to perform high complexity clinical laboratory testing. PERFORMING LABORATORY: Technical component was performed by [facility], [address] [place] [id number] (CLIA# [id number]). Professional interpretation was performed by [facility] - [facility], [address] [place] [id number] (CLIA#: [id number]). Diagnostician: Janay Estrada MD Pathologist Electronically Signed 06/30/2024 Copies: ~ PATIENT NAME: MONTSE GUTIERREZRAJ PATHOLOGY DATE OF : [birth year] REPORT #: [id number] PHYSICIAN: LOGAN MONROE PCP: JORDEN HAYWOOD [facility] REPORT IS CONFIDENTIAL AND NOT TO BE RELEASED WITHOUT AUTHORIZATION
== END 2024-06-26 13:35 | disposition home or self-care (01) ==
LOC: ED 18:37 → MS 18:39
PROVIDERS: Family Medicine; ADMIT Surgery; ATTEND Surgery
PROC: BF03YZZ Plain Radiography of Gallbladder and Bile Ducts using Other Contrast (ICD-10-PCS; 2024-06-25)
PROC: 0FT44ZZ Resection of Gallbladder, Percutaneous Endoscopic Approach (ICD-10-PCS; principal; 2024-06-25 16:30)
DX: K81.0 Acute cholecystitis (principal); E10.22 Type 1 diabetes mellitus with diabetic chronic kidney disease; N18.30 Chronic kidney disease, stage 3 unspecified; E10.65 Type 1 diabetes mellitus with hyperglycemia; K21.9 Gastro-esophageal reflux disease without esophagitis; E78.1 Pure hyperglyceridemia; Z85.6 Personal history of leukemia; Z94.81 Bone marrow transplant status; Z79.4 Long term (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; Z79.899 Other long term (current) 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; Z88.2 Allergy status to sulfonamides; Z88.0 Allergy status to penicillin; Z88.5 Allergy status to narcotic agent; Z88.8 Allergy status to other drugs, medicaments and biological substances
CPT/HCPCS: 00790; 36415; 74300; 80048; 80053; 81001; 82010; 82803; 83036; 83690; 83735; 84100; 85025; 88304; 96361; 96365; 96375; 96376; 99284-25; A9270; G0378; J0131; J0330; J0360; J0690; J0694; J0780; J1100; J1200; J1790; J1815; J1885; J2060; J2250; J2405; J2765; J3010; J3490; J7030; J7121; Q9967

== ENCOUNTER 2024-06-26 22:54 | Emergency (ER) | payer OTHER ==
[~2024-06-26] VITALS: Ht 149.9 cm; Wt 48.0 kg
[~2024-06-26 22:54] MED LIST changes: +OXYBUTYNIN CHLOR5 MG PO; -SEVOFLURANE 250 ML BTL INH ONE
[2024-06-26] MEDS ORDERED: ondansetron HCL 4 MG/2 ML VIAL IV ONE (23:30)
[2024-06-26] MEDS ORDERED: HYDROmorphone HCL 1 MG/ML SYR IV PRN (23:30)
[2024-06-26] MEDS ORDERED: diphenhydrAMINE HCL 50 MG/ML VIAL IV ONE (23:30)
[2024-06-26] MEDS ORDERED: FAMOTIDINE 20 MG/ 2 ML VIAL IV ONE (23:30)
[2024-06-26] MEDS ORDERED: LACTATED RINGER'S 1,000 ML IV ONE (23:30)
[2024-06-27 00:02] LABS: BASOPHILS 0.6 % (0-2); EOSINOPHILS 0.2 % (0-6); HEMATOCRIT 27.6 % (35.0-50.0); HEMOGLOBIN 8.8 g/dL (12.0-18.0); LYMPHOCYTES 24.1 % (24-44); MCH 28.9 (27-36); MCHC 31.7 g/dl (30-36); MCV 91.2 fl (81-99); MONOCYTES 7.5 % (0-12); NEUTROPHILS 67.6 % (39-80); PLATELET COUNT 335 K/uL (140-440); RBC 3.03 M/ul (4.3-5.7); RDW 17.5 (10.5-15.0)
[2024-06-27 00:18] LABS: ALBUMIN 3.4 g/dL (3.4-5.0); ALBUMIN/GLOBULIN RATIO 0.77 (1.1-2.4); ANION GAP 22.3 (7-21); BILIRUBIN, TOTAL 0.2 ng/dL (0.2-1.0); BUN/CREATININE RATIO 5.89 (6.0-28.6); CREATININE, SERUM 3.39 mg/dL (0.55-1.02); POTASSIUM 4.3 mmol/L (3.5-5.1); PROTEIN, TOTAL 7.8 g/dL (6.4-8.2)
[2024-06-27] MEDS ORDERED: Insulin Regular, Human 100 UNIT/ML ML IV ONE (00:45)
[2024-06-27] MEDS ORDERED: diphenhydrAMINE HCL 50 MG/ML VIAL IV ONE (00:45)
[2024-06-27] MEDS ORDERED: hydrOXYzine pamoate 50 MG CAP PO ONE (02:45)
[2024-06-27 03:26] LABS: ANION GAP 18.1 (7-21); BUN/CREATININE RATIO 7.01 (6.0-28.6); CALCIUM 8.7 mg/dL (8.5-10.1); CREATININE, SERUM 2.85 mg/dL (0.55-1.02); POTASSIUM 4.1 mmol/L (3.5-5.1)
[2024-06-27 04:24] VITALS: BP 125/85
== END 2024-06-27 04:26 | disposition home or self-care (01) ==
LOC: ED 22:54
PROVIDERS: Internal Medicine
DX: E10.65 Type 1 diabetes mellitus with hyperglycemia (principal); G89.18 Other acute postprocedural pain; E86.0 Dehydration; I12.9 Hypertensive chronic kidney disease with stage 1 through stage 4 chronic kidney disease, or unspecified chronic kidney disease; E10.22 Type 1 diabetes mellitus with diabetic chronic kidney disease; N18.9 Chronic kidney disease, unspecified; H91.91 Unspecified hearing loss, right ear; Z97.4 Presence of external hearing-aid; Z88.2 Allergy status to sulfonamides; Z88.1 Allergy status to other antibiotic agents; Z88.0 Allergy status to penicillin; Z88.5 Allergy status to narcotic agent; Z88.6 Allergy status to analgesic agent; Z88.8 Allergy status to other drugs, medicaments and biological substances; Z96.41 Presence of insulin pump (external) (internal); Z79.82 Long term (current) use of aspirin; Z79.899 Other long term (current) 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
CPT/HCPCS: 36415; 80048; 80053; 83690; 83735; 85025; 96361; 96374; 96375; 96376; 99284-25; J1200; J1815; J2405; J7121

== ENCOUNTER 2024-06-30 12:16 | Emergency (ER) | payer OTHER ==
[~2024-06-30] VITALS: Ht 149.9 cm; Wt 42.5 kg
[2024-06-30 13:49] LABS: BASOPHILS 0.8 % (0-2); HEMATOCRIT 36.9 % (35.0-50.0); HEMOGLOBIN 11.6 g/dL (12.0-18.0); LYMPHOCYTES 20.3 % (24-44); MCH 28.3 (27-36); MCHC 31.5 g/dl (30-36); MCV 89.7 fl (81-99); MONOCYTES 6.1 % (0-12); NEUTROPHILS 69.8 % (39-80); PLATELET COUNT 414 K/uL (140-440); RBC 4.12 M/ul (4.3-5.7)
[2024-06-30 13:58] LABS: ALBUMIN 4.1 g/dL (3.4-5.0); ALBUMIN/GLOBULIN RATIO 0.77 (1.1-2.4); ANION GAP 18.1 (7-21); BILIRUBIN, TOTAL 0.3 ng/dL (0.2-1.0); BUN/CREATININE RATIO 8.6 (6.0-28.6); CALCIUM 9.7 mg/dL (8.5-10.1); CREATININE, SERUM 2.44 mg/dL (0.55-1.02); POTASSIUM 4.1 mmol/L (3.5-5.1); PROTEIN, TOTAL 9.4 g/dL (6.4-8.2)
[2024-06-30] MEDS ORDERED: ondansetron HCL 4 MG/2 ML VIAL IV ONE (14:00)
[2024-06-30] MEDS ORDERED: PANTOPRAZOLE SODIUM 40 MG/10 ML VIAL IV ONE (14:15)
[2024-06-30] MEDS ORDERED: SODIUM CHLORIDE 0.9% 1,000 ML IV PRN (14:15)
[2024-06-30] MEDS ORDERED: HYDROmorphone HCL 1 MG/ML SYR IV ONE (15:00)
[2024-06-30 15:43] LABS: BILIRUBIN, URINE NEGATIVE (negative); BLOOD/HGB, URINE MODERATE (Negative); KETONE, URINE NEGATIVE (Negative); LEUK ESTERASE, URINE NEGATIVE (negative); NITRITE, URINE NEGATIVE (negative); PH, URINE 6.5 (5-7)
[2024-06-30 15:50] LABS: BACTERIA, URINE NONE SEEN /hpf (negative); CASTS, URINE NONE SEEN \\lpf; COLLECTION TYPE, URINE CLEAN CATCH; CRYSTALS, URINE NONE SEEN (0-1+); EPITHELIAL CELLS, URINE SQUAMOUS 2+ /lpf (0-1+); REFLEX CULTURE, URINE No (No); WHITE BLOOD CELLS, URINE 0-1 /HPF (0-5)
[2024-06-30 16:21] VITALS: BP 125/89
== END 2024-06-30 16:16 | disposition home or self-care (01) ==
LOC: ED 12:16
PROVIDERS: Emergency Medicine
DX: R10.33 Periumbilical pain (principal); E10.22 Type 1 diabetes mellitus with diabetic chronic kidney disease; I12.9 Hypertensive chronic kidney disease with stage 1 through stage 4 chronic kidney disease, or unspecified chronic kidney disease; N18.9 Chronic kidney disease, unspecified; Z90.49 Acquired absence of other specified parts of digestive tract; E78.5 Hyperlipidemia, unspecified; H91.91 Unspecified hearing loss, right ear; Z97.4 Presence of external hearing-aid; Z88.2 Allergy status to sulfonamides; Z88.0 Allergy status to penicillin; Z88.1 Allergy status to other antibiotic agents; Z88.5 Allergy status to narcotic agent; Z88.4 Allergy status to anesthetic agent; Z79.4 Long term (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; Z79.899 Other long term (current) 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
CPT/HCPCS: 36415; 74176; 80053; 81001; 83690; 85025; 96361; 96374; 96375; 99284-25; J2405; J2470; J7030

== ENCOUNTER 2024-07-01 23:36 | Emergency (ER) | payer OTHER ==
[~2024-07-01] VITALS: Ht 149.9 cm; Wt 43.2 kg
[2024-07-01] MEDS ORDERED: HYDROCODONE/ACETA 5/325 TAB PO ONE (23:45)
[2024-07-01] MEDS ORDERED: ONDANSETRON 4 MG TAB ODT SL ONE (23:45)
[2024-07-02 00:17] LABS: BASOPHILS 0.6 % (0-2); EOSINOPHILS 2.7 % (0-6); HEMOGLOBIN 9.1 g/dL (12.0-18.0); LYMPHOCYTES 30.1 % (24-44); MCH 28.6 (27-36); MCHC 32.3 g/dl (30-36); MCV 88.4 fl (81-99); MONOCYTES 10.9 % (0-12); NEUTROPHILS 55.7 % (39-80); PLATELET COUNT 397 K/uL (140-440); RBC 3.17 M/ul (4.3-5.7); RDW 16.9 (10.5-15.0)
[2024-07-02] MEDS ORDERED: LACTULOSE10 GM/15 M PO (01:13)
[2024-07-02] MEDS ORDERED: LACTULOSE 20 GM/30 ML CUP PO ONE (01:15)
[2024-07-02] MEDS ORDERED: CYCLOBENZAPRINE10 MG PO (01:20)
[2024-07-02] MEDS ORDERED: CYCLOBENZAPRINE HCL 10 MG HOME.PACK PO ONE (01:30)
[2024-07-02 01:31] VITALS: BP 111/71
== END 2024-07-02 01:31 | disposition home or self-care (01) ==
LOC: ED 23:36
PROVIDERS: Family Medicine
DX: K59.00 Constipation, unspecified (principal); I12.9 Hypertensive chronic kidney disease with stage 1 through stage 4 chronic kidney disease, or unspecified chronic kidney disease; E10.22 Type 1 diabetes mellitus with diabetic chronic kidney disease; N18.9 Chronic kidney disease, unspecified; E78.5 Hyperlipidemia, unspecified; H91.91 Unspecified hearing loss, right ear; Z97.4 Presence of external hearing-aid; Z88.2 Allergy status to sulfonamides; Z88.8 Allergy status to other drugs, medicaments and biological substances; Z88.0 Allergy status to penicillin; Z79.4 Long term (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; Z79.899 Other long term (current) 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
CPT/HCPCS: 36415; 74018; 84703; 85025; 99283; A9270

== ENCOUNTER 2024-07-06 09:47 | Emergency (ER) | payer OTHER ==
[~2024-07-06] VITALS: Ht 149.9 cm; Wt 42.5 kg
[~2024-07-06 09:47] MED LIST changes: +LACTULOSE10 GM/15 M PO
[2024-07-06] MEDS ORDERED: diphenhydrAMINE HCL 50 MG/ML VIAL IV ONE ×2 (10:15→11:45)
[2024-07-06] MEDS ORDERED: SODIUM CHLORIDE 0.9% 1,000 ML IV ONE (10:15)
[2024-07-06] MEDS ORDERED: ondansetron HCL 4 MG/2 ML VIAL IV ONE (10:15)
[2024-07-06] MEDS ORDERED: HYDROmorphone HCL 1 MG/ML SYR IV PRN (10:15)
[2024-07-06 11:00] LABS: BASOPHILS 0.6 % (0-2); EOSINOPHILS 2.1 % (0-6); HEMATOCRIT 30.7 % (35.0-50.0); HEMOGLOBIN 9.7 g/dL (12.0-18.0); LYMPHOCYTES 24.6 % (24-44); MCH 28.1 (27-36); MCHC 31.6 g/dl (30-36); MCV 88.9 fl (81-99); MONOCYTES 4.5 % (0-12); NEUTROPHILS 68.2 % (39-80); PLATELET COUNT 526 K/uL (140-440); RBC 3.45 M/ul (4.3-5.7); RDW 16.2 (10.5-15.0)
[2024-07-06 11:20] LABS: ALBUMIN 3.6 g/dL (3.4-5.0); ALBUMIN/GLOBULIN RATIO 0.75 (1.1-2.4); ANION GAP 18.1 (7-21); BILIRUBIN, TOTAL 0.2 ng/dL (0.2-1.0); BUN/CREATININE RATIO 10.23 (6.0-28.6); CALCIUM 9.3 mg/dL (8.5-10.1); CREATININE, SERUM 2.15 mg/dL (0.55-1.02); POTASSIUM 4.1 mmol/L (3.5-5.1); PROTEIN, TOTAL 8.4 g/dL (6.4-8.2)
[2024-07-06 11:42] LABS: BILIRUBIN, URINE NEGATIVE (negative); BLOOD/HGB, URINE TRACE-I (Negative); KETONE, URINE TRACE (Negative); LEUK ESTERASE, URINE NEGATIVE (negative); NITRITE, URINE NEGATIVE (negative)
[2024-07-06 11:50] LABS: CASTS, URINE NONE SEEN \\lpf; CRYSTALS, URINE NONE SEEN (0-1+); EPITHELIAL CELLS, URINE SQUAMOUS 2+ /lpf (0-1+); WHITE BLOOD CELLS, URINE 0-1 /HPF (0-5)
[2024-07-06 11:51] LABS: BACTERIA, URINE NONE SEEN /hpf (negative); COLLECTION TYPE, URINE CLEAN CATCH; REFLEX CULTURE, URINE No (No)
[2024-07-06 13:45] VITALS: BP 129/100
== END 2024-07-06 13:45 | disposition home or self-care (01) ==
LOC: ED 09:47
PROVIDERS: Emergency Medicine
DX: R10.10 Upper abdominal pain, unspecified (principal); R10.31 Right lower quadrant pain; E10.65 Type 1 diabetes mellitus with hyperglycemia; I12.9 Hypertensive chronic kidney disease with stage 1 through stage 4 chronic kidney disease, or unspecified chronic kidney disease; E10.22 Type 1 diabetes mellitus with diabetic chronic kidney disease; N18.9 Chronic kidney disease, unspecified; E78.5 Hyperlipidemia, unspecified; H91.91 Unspecified hearing loss, right ear; Z97.4 Presence of external hearing-aid; Z96.41 Presence of insulin pump (external) (internal); Z90.49 Acquired absence of other specified parts of digestive tract; Z88.2 Allergy status to sulfonamides; Z88.8 Allergy status to other drugs, medicaments and biological substances; Z88.0 Allergy status to penicillin; Z88.1 Allergy status to other antibiotic agents; Z88.5 Allergy status to narcotic agent; Z79.899 Other long term (current) 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
CPT/HCPCS: 36415; 80053; 81001; 83690; 84703; 85025; 96374; 96375; 96376; 99284-25; J1200; J2405; J7030

== ENCOUNTER 2024-07-07 22:01 | Emergency (ER) | payer OTHER ==
[~2024-07-07] VITALS: Ht 149.9 cm; Wt 44.0 kg
[2024-07-07] MEDS ORDERED: LORazepam 1 MG TAB PO ONE (22:45)
[2024-07-07] MEDS ORDERED: LACTATED RINGER'S 1,000 ML IV ONE (23:30)
[2024-07-07] MEDS ORDERED: SUMAtriptan succinate 6 MG/0.5 ML VIAL SUB-Q ONE (23:45)
[2024-07-08] MEDS ORDERED: ACETAMINOPHEN 500 MG TAB PO ONE (00:15)
[2024-07-08] MEDS ORDERED: diphenhydrAMINE HCL 50 MG/ML VIAL IM ONE (00:45)
[2024-07-08] MEDS ORDERED: IMITREX25 MG PO (01:46)
[2024-07-08 01:55] VITALS: BP 164/110
== END 2024-07-08 01:55 | disposition home or self-care (01) ==
LOC: ED 22:01
DX: G43.909 Migraine, unspecified, not intractable, without status migrainosus (principal); I12.9 Hypertensive chronic kidney disease with stage 1 through stage 4 chronic kidney disease, or unspecified chronic kidney disease; E10.22 Type 1 diabetes mellitus with diabetic chronic kidney disease; N18.9 Chronic kidney disease, unspecified; E78.5 Hyperlipidemia, unspecified; H91.91 Unspecified hearing loss, right ear; Z97.4 Presence of external hearing-aid; Z88.2 Allergy status to sulfonamides; Z88.0 Allergy status to penicillin; Z88.1 Allergy status to other antibiotic agents; Z88.5 Allergy status to narcotic agent; Z88.6 Allergy status to analgesic agent; Z88.8 Allergy status to other drugs, medicaments and biological substances; Z79.4 Long term (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; Z79.899 Other long term (current) 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
CPT/HCPCS: 80053; 82010; 83690; 83735; 85025; 96372; 99283; A9270; A9270-GY; J1200; J3030

== ENCOUNTER 2024-07-11 22:07 | Emergency (ER) | payer OTHER ==
[~2024-07-11] VITALS: Ht 149.9 cm; Wt 44.1 kg
[2024-07-11 23:08] LABS: HEMOGLOBIN 9.8 g/dL (12.0-18.0); PLATELET COUNT 466 K/uL (140-440)
[2024-07-11 23:11] LABS: BASOPHILS 1.1 % (0-2); EOSINOPHILS 3.8 % (0-6); HEMATOCRIT 31.1 % (35.0-50.0); LYMPHOCYTES 37.1 % (24-44); MCH 28.5 (27-36); MCHC 31.5 g/dl (30-36); MCV 90.6 fl (81-99); MONOCYTES 7.3 % (0-12); NEUTROPHILS 50.7 % (39-80); RBC 3.43 M/ul (4.3-5.7); RDW 16.3 (10.5-15.0)
[2024-07-11 23:13] LABS: ALBUMIN 3.7 g/dL (3.4-5.0); ALBUMIN/GLOBULIN RATIO 0.8 (1.1-2.4); ANION GAP 20.3 (7-21); BILIRUBIN, TOTAL 0.2 ng/dL (0.2-1.0); BUN/CREATININE RATIO 8.18 (6.0-28.6); CALCIUM 8.8 mg/dL (8.5-10.1); CREATININE, SERUM 2.2 mg/dL (0.55-1.02); MAGNESIUM 2.1 mg/dL (1.8-2.4); PHOSPHORUS, INORGANIC 3.8 mg/dL (2.5-4.9); POTASSIUM 4.3 mmol/L (3.5-5.1); PROTEIN, TOTAL 8.3 g/dL (6.4-8.2)
[2024-07-11] MEDS ORDERED: LACTATED RINGER'S 1,000 ML IV ONE (23:15)
[2024-07-11] MEDS ORDERED: Insulin Regular, Human 100 UNIT/ML ML IV ONE (23:30)
[2024-07-11] MEDS ORDERED: diphenhydrAMINE HCL 50 MG/ML VIAL IV ONE (23:30)
[2024-07-11] MEDS ORDERED: LORazepam 2 MG/ML VIAL IV ONE (23:45)
[2024-07-12] MEDS ORDERED: INSULIN GLARGINE-YFGN 100 UNIT/ML ML SUB-Q ONE (00:15)
[2024-07-12] MEDS ORDERED: diphenhydrAMINE HCL 50 MG CAP PO ONE (01:00)
[2024-07-12 01:06] VITALS: BP 151/98
== END 2024-07-12 01:15 ==
LOC: ED 22:07
PROVIDERS: Internal Medicine
DX: E11.65 Type 2 diabetes mellitus with hyperglycemia (principal); I10 Essential (primary) hypertension; Z88.2 Allergy status to sulfonamides; Z88.0 Allergy status to penicillin; Z88.5 Allergy status to narcotic agent; Z79.4 Long term (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; Z79.899 Other long term (current) 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
CPT/HCPCS: 36415; 80053; 82010; 83735; 84100; 85025; 96361; 96374; 96375; 99284-25; A9270; J1200; J1815; J2060; J7121; Q0163

== ENCOUNTER 2024-07-17 03:48 | Emergency (ER) | payer OTHER ==
[~2024-07-17] VITALS: Ht 149.9 cm; Wt 43.6 kg
[2024-07-17] MEDS ORDERED: LORazepam 1 MG TAB PO ONE ×2 (04:30→04:45)
[2024-07-17] MEDS ORDERED: LIDOCAINE & ANTACID 35 ML BTL PO ONE (04:45)
[2024-07-17] MEDS ORDERED: SUCRALFATE 1 GM TAB PO ONE (04:45)
[2024-07-17 04:56] LABS: BASOPHILS 0.8 % (0-2); EOSINOPHILS 2.6 % (0-6); HEMATOCRIT 29.4 % (35.0-50.0); HEMOGLOBIN 9.4 g/dL (12.0-18.0); MCH 28.3 (27-36); MCHC 32.1 g/dl (30-36); MCV 88.3 fl (81-99); MONOCYTES 8.5 % (0-12); NEUTROPHILS 56.1 % (39-80); PLATELET COUNT 376 K/uL (140-440); RBC 3.33 M/ul (4.3-5.7)
[2024-07-17 05:09] LABS: ALBUMIN 3.2 g/dL (3.4-5.0); ALBUMIN/GLOBULIN RATIO 0.74 (1.1-2.4); ANION GAP 21.4 (7-21); BILIRUBIN, TOTAL 0.2 ng/dL (0.2-1.0); BUN/CREATININE RATIO 8.2 (6.0-28.6); CALCIUM 8.1 mg/dL (8.5-10.1); CREATININE, SERUM 2.68 mg/dL (0.55-1.02); POTASSIUM 4.4 mmol/L (3.5-5.1); PROTEIN, TOTAL 7.5 g/dL (6.4-8.2)
[2024-07-17] MEDS ORDERED: ONDANSETRON 4 MG TAB ODT ONE (05:24)
[2024-07-17] MEDS ORDERED: DICYCLOMINE HCL10 MG PO (05:27)
[2024-07-17] MEDS ORDERED: BUSPIRONE HCL7.5 MG PO (05:27)
[2024-07-17] MEDS ORDERED: VISTARIL25 MG PO (05:27)
[2024-07-17] MEDS ORDERED: DICYCLOMINE HCL 10 MG HOME.PACK PO ONE (05:30)
[2024-07-17] MEDS ORDERED: DICYCLOMINE HCL 20 MG/2 ML VIAL IM ONE (05:30)
[2024-07-17] MEDS ORDERED: ONDANSETRON 4 MG TAB ODT SL ONE (05:30)
[2024-07-17] MEDS ORDERED: LORazepam 1 MG HOME.PACK PO ONE (05:30)
[2024-07-17] MEDS ORDERED: ONDANSETRON 4 MG HOME.PACK SL ONE (05:30)
[2024-07-17 06:00] VITALS: BP 131/94
== END 2024-07-17 06:00 | disposition home or self-care (01) ==
LOC: ED 03:48
PROVIDERS: Family Medicine
DX: F41.9 Anxiety disorder, unspecified (principal); R10.13 Epigastric pain; I12.9 Hypertensive chronic kidney disease with stage 1 through stage 4 chronic kidney disease, or unspecified chronic kidney disease; E11.22 Type 2 diabetes mellitus with diabetic chronic kidney disease; N18.9 Chronic kidney disease, unspecified; Z79.4 Long term (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; Z79.82 Long term (current) use of aspirin; Z79.899 Other long term (current) 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; Z88.2 Allergy status to sulfonamides; Z88.0 Allergy status to penicillin; Z88.8 Allergy status to other drugs, medicaments and biological substances; Z88.1 Allergy status to other antibiotic agents; Z88.5 Allergy status to narcotic agent
CPT/HCPCS: 36415; 80053; 83690; 85025; 96372; 99284; A9270; A9270-GY; J0500

== ENCOUNTER 2024-07-19 08:00 | Emergency (ER) | payer OTHER ==
[~2024-07-19] VITALS: Ht 149.9 cm; Wt 43.6 kg
[~2024-07-19 08:00] MED LIST changes: +BUSPIRONE HCL7.5 MG PO; +DICYCLOMINE HCL10 MG PO; +VISTARIL25 MG PO
[2024-07-19] MEDS ORDERED: PANTOPRAZOLE SODIUM 40 MG/10 ML VIAL IV ONE (09:00)
[2024-07-19] MEDS ORDERED: ondansetron HCL 4 MG/2 ML VIAL IV ONE (09:00)
[2024-07-19] MEDS ORDERED: Insulin Regular, Human 100 UNIT/ML ML IV ONE (09:00)
[2024-07-19] MEDS ORDERED: SODIUM CHLORIDE 0.9% 1,000 ML IV ONE (09:00)
[2024-07-19 09:08] LABS: PH, VENOUS 7.23 (7.31-7.41)
[2024-07-19 09:09] LABS: BASOPHILS 0.7 % (0-2); EOSINOPHILS 1.5 % (0-6); HEMOGLOBIN 10.3 g/dL (12.0-18.0); LYMPHOCYTES 19.7 % (24-44); MCH 28.7 (27-36); MCHC 32.2 g/dl (30-36); MCV 89.2 fl (81-99); MONOCYTES 6.9 % (0-12); NEUTROPHILS 71.2 % (39-80); PLATELET COUNT 407 K/uL (140-440); RBC 3.59 M/ul (4.3-5.7)
[2024-07-19 09:26] LABS: ALBUMIN 3.8 g/dL (3.4-5.0); ALBUMIN/GLOBULIN RATIO 0.81 (1.1-2.4); ANION GAP 18.5 (7-21); BILIRUBIN, TOTAL 0.2 ng/dL (0.2-1.0); BUN/CREATININE RATIO 8.33 (6.0-28.6); CREATININE, SERUM 2.28 mg/dL (0.55-1.02); POTASSIUM 4.5 mmol/L (3.5-5.1); PROTEIN, TOTAL 8.5 g/dL (6.4-8.2)
[2024-07-19 10:58] LABS: BILIRUBIN, URINE NEGATIVE (negative); BLOOD/HGB, URINE TRACE-L (Negative); KETONE, URINE NEGATIVE (Negative); LEUK ESTERASE, URINE NEGATIVE (negative); NITRITE, URINE NEGATIVE (negative)
[2024-07-19] MEDS ORDERED: LORazepam 2 MG/ML VIAL IV ONE (11:00)
[2024-07-19 11:14] LABS: BACTERIA, URINE RARE /hpf (negative); CASTS, URINE NONE SEEN \\lpf; COLLECTION TYPE, URINE CLEAN CATCH; CRYSTALS, URINE NONE SEEN (0-1+); EPITHELIAL CELLS, URINE SQUAMOUS 1+ /lpf (0-1+); RED BLOOD CELLS, URINE 0-1 /hpf (0-5); REFLEX CULTURE, URINE No (No)
[2024-07-19] MEDS ORDERED: SODIUM CHLORIDE 0.9% 1,000 ML IV SCH (11:15)
[2024-07-19] MEDS ORDERED: ONDANSETRON ODT8 MG PO (12:41)
[2024-07-19 12:48] VITALS: BP 129/102
== END 2024-07-19 13:01 | disposition home or self-care (01) ==
LOC: ED 08:00
PROVIDERS: Emergency Medicine
DX: E10.65 Type 1 diabetes mellitus with hyperglycemia (principal); R10.9 Unspecified abdominal pain; I12.9 Hypertensive chronic kidney disease with stage 1 through stage 4 chronic kidney disease, or unspecified chronic kidney disease; E10.22 Type 1 diabetes mellitus with diabetic chronic kidney disease; N18.9 Chronic kidney disease, unspecified; E78.5 Hyperlipidemia, unspecified; Z96.41 Presence of insulin pump (external) (internal); Z79.899 Other long term (current) 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; Z79.82 Long term (current) use of aspirin; Z88.2 Allergy status to sulfonamides; Z88.8 Allergy status to other drugs, medicaments and biological substances; Z88.0 Allergy status to penicillin; Z88.1 Allergy status to other antibiotic agents; Z88.5 Allergy status to narcotic agent
CPT/HCPCS: 36415; 74176; 80053; 81001; 82803; 83690; 84703; 85025; 96361; 96374; 96375; 99285-25; J1815; J2060; J2405; J2470; J7030

== ENCOUNTER 2024-07-19 22:37 | Emergency (ER) | payer OTHER ==
[~2024-07-19] VITALS: Ht 149.9 cm; Wt 43.8 kg
[2024-07-19] MEDS ORDERED: SUCRALFATE 1 GM TAB PO ONE (23:00)
[2024-07-19] MEDS ORDERED: LIDOCAINE & ANTACID 35 ML BTL PO ONE (23:00)
[2024-07-19] MEDS ORDERED: HYDROCODONE/ACETA 5/325 TAB PO ONE (23:00)
[2024-07-19] MEDS ORDERED: ONDANSETRON 4 MG TAB ODT SL ONE (23:00)
[2024-07-19 23:14] LABS: PH, VENOUS 7.307 (7.31-7.41)
[2024-07-19 23:15] LABS: BASOPHILS 0.8 % (0-2); EOSINOPHILS 1.5 % (0-6); HEMATOCRIT 28.5 % (35.0-50.0); HEMOGLOBIN 9.5 g/dL (12.0-18.0); LYMPHOCYTES 22.3 % (24-44); MCH 29.4 (27-36); MCHC 33.5 g/dl (30-36); MCV 87.6 fl (81-99); MONOCYTES 7.1 % (0-12); NEUTROPHILS 68.3 % (39-80); PLATELET COUNT 402 K/uL (140-440); RBC 3.25 M/ul (4.3-5.7); RDW 16.1 (10.5-15.0)
[2024-07-19 23:35] LABS: ALBUMIN 3.6 g/dL (3.4-5.0); ALBUMIN/GLOBULIN RATIO 0.82 (1.1-2.4); ANION GAP 16.7 (7-21); BILIRUBIN, TOTAL 0.3 ng/dL (0.2-1.0); BUN/CREATININE RATIO 7.87 (6.0-28.6); CALCIUM 8.8 mg/dL (8.5-10.1); CREATININE, SERUM 2.16 mg/dL (0.55-1.02); POTASSIUM 3.7 mmol/L (3.5-5.1)
[2024-07-20] MEDS ORDERED: diphenhydrAMINE HCL 25 MG CAP PO ONE (01:00)
[2024-07-20 01:04] VITALS: BP 147/98
--- NOTE | 2024-07-22 18:59 | EKG ---
[facility] [address] [facility] [place] [address] Signed Sinus tachycardia Minimal voltage criteria for LVH, may be normal variant ( R in aVL ) Inferior infarct (cited on or before 06-JUL-2023) Abnormal ECG When compared with ECG of 31-MAR-2024 22:05, No significant change was found Confirmed by Anjum Lima MD ([id number]) on 07/22/2024 6:58:47 PM Electronically Signed By: ANJUM LIMA MD 07/22/24 1859 PATIENT NAME: MONTSE GUTIERREZ Electrocardiogram DATE OF : 99 PHYSICIAN: ANJUM LIMA MD REPORT #: [id number] REPORT IS CONFIDENTIAL AND NOT TO BE RELEASED WITHOUT AUTHORIZATION
== END 2024-07-20 01:08 | disposition home or self-care (01) ==
LOC: ED 22:37
PROVIDERS: Family Medicine
DX: R07.89 Other chest pain (principal); R10.9 Unspecified abdominal pain; R11.0 Nausea; I12.9 Hypertensive chronic kidney disease with stage 1 through stage 4 chronic kidney disease, or unspecified chronic kidney disease; E10.22 Type 1 diabetes mellitus with diabetic chronic kidney disease; N18.9 Chronic kidney disease, unspecified; E78.5 Hyperlipidemia, unspecified; H91.91 Unspecified hearing loss, right ear; Z97.4 Presence of external hearing-aid; Z88.2 Allergy status to sulfonamides; Z88.0 Allergy status to penicillin; Z88.1 Allergy status to other antibiotic agents; Z88.5 Allergy status to narcotic agent; Z88.6 Allergy status to analgesic agent; Z88.8 Allergy status to other drugs, medicaments and biological substances; Z79.82 Long term (current) use of aspirin; Z79.4 Long term (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; Z79.899 Other long term (current) 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
CPT/HCPCS: 36415; 80053; 82803; 83690; 84484; 85025; 93005; 93010; 99285; A9270

== ENCOUNTER 2024-07-22 18:41 | Emergency (ER) | payer OTHER ==
[~2024-07-22] VITALS: Ht 149.9 cm; Wt 44.0 kg
[2024-07-22] MEDS ORDERED: METOCLOPRAMIDE HCL 10 MG/2 ML SDV IV ONE (19:15)
[2024-07-22] MEDS ORDERED: diphenhydrAMINE HCL 50 MG/ML VIAL IV ONE (19:15)
[2024-07-22] MEDS ORDERED: KETOROLAC TROMETHAMINE 30 MG/ML VIAL IV ONE (19:15)
[2024-07-22] MEDS ORDERED: hydrOXYzine pamoate 50 MG CAP PO ONE (20:00)
[2024-07-22 21:15] VITALS: BP 161/107
== END 2024-07-22 22:00 | disposition left against medical advice (07) ==
LOC: ED 18:41
DX: R51.9 Headache, unspecified (principal); I12.9 Hypertensive chronic kidney disease with stage 1 through stage 4 chronic kidney disease, or unspecified chronic kidney disease; E11.22 Type 2 diabetes mellitus with diabetic chronic kidney disease; N18.9 Chronic kidney disease, unspecified; Z53.29 Procedure and treatment not carried out because of patient's decision for other reasons; Z88.2 Allergy status to sulfonamides; Z88.8 Allergy status to other drugs, medicaments and biological substances; Z88.0 Allergy status to penicillin; Z88.1 Allergy status to other antibiotic agents; Z88.5 Allergy status to narcotic agent; Z79.899 Other long term (current) 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; Z79.4 Long term (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
CPT/HCPCS: 36415; 70450; 85651; J1200; J1885; J2765

== ENCOUNTER 2024-07-24 00:11 | Emergency (ER) | payer OTHER ==
[~2024-07-24] VITALS: Ht 149.9 cm; Wt 44.0 kg
[2024-07-24] MEDS ORDERED: LIDOCAINE & ANTACID 35 ML BTL ONE (00:22)
[2024-07-24] MEDS ORDERED: LIDOCAINE & ANTACID 35 ML BTL PO ONE (00:30)
[2024-07-24] MEDS ORDERED: SODIUM CHLORIDE 0.9% 1,000 ML IV SCH (00:45)
[2024-07-24] MEDS ORDERED: DEXTROSE 5% - NACL 0.9% 1,000 ML IV SCH (01:00)
[2024-07-24] MEDS ORDERED: DEXTROSE 50% 50 ML SYR IV ONE (01:00)
[2024-07-24 01:03] LABS: BASOPHILS 0.8 % (0-2); HEMATOCRIT 24.7 % (35.0-50.0); HEMOGLOBIN 8.2 g/dL (12.0-18.0); LYMPHOCYTES 22.3 % (24-44); MCH 28.9 (27-36); MCV 87.6 fl (81-99); MONOCYTES 8.8 % (0-12); NEUTROPHILS 66.1 % (39-80); PLATELET COUNT 353 K/uL (140-440); RBC 2.82 M/ul (4.3-5.7)
[2024-07-24 01:19] LABS: ALBUMIN 2.8 g/dL (3.4-5.0); ALBUMIN/GLOBULIN RATIO 0.68 (1.1-2.4); ANION GAP 20.8 (7-21); BILIRUBIN, TOTAL 0.2 ng/dL (0.2-1.0); BUN/CREATININE RATIO 9.2 (6.0-28.6); CALCIUM 8.5 mg/dL (8.5-10.1); CREATININE, SERUM 2.39 mg/dL (0.55-1.02); POTASSIUM 3.8 mmol/L (3.5-5.1); PROTEIN, TOTAL 6.9 g/dL (6.4-8.2)
[2024-07-24] MEDS ORDERED: ACETAMINOPHEN 325 MG TAB PO ONE (01:45)
[2024-07-24 04:26] VITALS: BP 156/101
--- NOTE | 2024-07-24 22:19 | EKG ---
[facility] [address] [place] [address] Signed Sinus tachycardia Minimal voltage criteria for LVH, may be normal variant ( R in aVL ) Inferior infarct (cited on or before 06-JUL-2023) Abnormal ECG When compared with ECG of 19-JUL-2024 22:46, Criteria for Anterior infarct are no longer present Criteria for Anterolateral infarct are no longer present Confirmed by Sabino Simmons MD () on 07/24/2024 10:19:27 PM Electronically Signed By: SABINO SIMMONS MD 07/24/24 2219 PATIENT NAME: MONTSE GUTIERREZ Electrocardiogram DATE OF : 99 PHYSICIAN: SABINO SIMMONS MD REPORT #: [id number] REPORT IS CONFIDENTIAL AND NOT TO BE RELEASED WITHOUT AUTHORIZATION
[2024-07-24] MEDS ORDERED: FREESTYLE LIBR TD (22:24)
== END 2024-07-24 04:26 | disposition left against medical advice (07) ==
LOC: ED 00:11
PROVIDERS: Emergency Medicine
DX: R07.9 Chest pain, unspecified (principal); E78.5 Hyperlipidemia, unspecified; I12.9 Hypertensive chronic kidney disease with stage 1 through stage 4 chronic kidney disease, or unspecified chronic kidney disease; E11.22 Type 2 diabetes mellitus with diabetic chronic kidney disease; N18.9 Chronic kidney disease, unspecified; Z53.29 Procedure and treatment not carried out because of patient's decision for other reasons; Z88.2 Allergy status to sulfonamides; Z88.8 Allergy status to other drugs, medicaments and biological substances; Z88.0 Allergy status to penicillin; Z88.1 Allergy status to other antibiotic agents; Z88.5 Allergy status to narcotic agent; Z79.899 Other long term (current) 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; Z79.82 Long term (current) use of aspirin; Z79.4 Long term (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
CPT/HCPCS: 36415; 71045; 80053; 83690; 84484; 84703; 85025; 85379; 93005; 93010; 99285-25; A9270; J7030

== ENCOUNTER 2024-07-24 09:46 | Emergency (ER) | payer OTHER ==
[2024-07-24] MEDS ORDERED: HYDROCODONE/ACETA 5/325 TAB PO ONE (11:45)
[2024-07-24] MEDS ORDERED: hydrOXYzine pamoate 50 MG CAP PO ONE (11:45)
[2024-07-24 12:01] LABS: BASOPHILS 0.5 % (0-2); EOSINOPHILS 2.6 % (0-6); HEMATOCRIT 28.2 % (35.0-50.0); LYMPHOCYTES 26.9 % (24-44); MCH 28.3 (27-36); MCHC 31.9 g/dl (30-36); MCV 88.6 fl (81-99); MONOCYTES 7.4 % (0-12); NEUTROPHILS 62.6 % (39-80); PLATELET COUNT 374 K/uL (140-440); RBC 3.19 M/ul (4.3-5.7); RDW 16.4 (10.5-15.0)
[2024-07-24 12:16] LABS: ALBUMIN 3.3 g/dL (3.4-5.0); ALBUMIN/GLOBULIN RATIO 0.75 (1.1-2.4); ANION GAP 18.2 (7-21); BILIRUBIN, TOTAL 0.2 ng/dL (0.2-1.0); BUN/CREATININE RATIO 10.19 (6.0-28.6); CALCIUM 8.7 mg/dL (8.5-10.1); CREATININE, SERUM 2.06 mg/dL (0.55-1.02); POTASSIUM 4.2 mmol/L (3.5-5.1); PROTEIN, TOTAL 7.7 g/dL (6.4-8.2)
[2024-07-24 13:37] VITALS: BP 135/100
--- NOTE | 2024-07-24 22:20 | EKG ---
[facility] [address] [place] [address] Signed Normal sinus rhythm Minimal voltage criteria for LVH, may be normal variant ( R in aVL ) Inferior infarct (cited on or before 06-JUL-2023) Cannot rule out Anterior infarct , age undetermined Abnormal ECG When compared with ECG of 24-JUL-2024 00:19, No significant change was found Confirmed by Sabino Simmons MD () on 07/24/2024 10:20:32 PM Electronically Signed By: SABINO SIMMONS MD 07/24/242219 PATIENT NAME: MONTSE GUTIERREZ Electrocardiogram DATE OF : 99 PHYSICIAN: SABINO SIMMONS MD REPORT #: [id number] REPORT IS CONFIDENTIAL AND NOT TO BE RELEASED WITHOUT AUTHORIZATION
[2024-07-24] MEDS ORDERED: FREESTYLE LIBR TD (22:24)
== END 2024-07-24 13:38 | disposition home or self-care (01) ==
LOC: ED 09:46
PROVIDERS: Emergency Medicine
DX: R07.9 Chest pain, unspecified (principal); I12.9 Hypertensive chronic kidney disease with stage 1 through stage 4 chronic kidney disease, or unspecified chronic kidney disease; E10.22 Type 1 diabetes mellitus with diabetic chronic kidney disease; N18.30 Chronic kidney disease, stage 3 unspecified; Z96.41 Presence of insulin pump (external) (internal); E78.5 Hyperlipidemia, unspecified; Z88.2 Allergy status to sulfonamides; Z88.8 Allergy status to other drugs, medicaments and biological substances; Z88.0 Allergy status to penicillin; Z88.1 Allergy status to other antibiotic agents; Z88.5 Allergy status to narcotic agent; Z79.899 Other long term (current) 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; Z79.82 Long term (current) use of aspirin; Z79.4 Long term (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
CPT/HCPCS: 36415; 80053; 84484; 85025; 93005; 93010; 99285

== ENCOUNTER 2024-07-24 21:09 | Emergency (ER) | payer OTHER ==
[~2024-07-24] VITALS: Ht 149.9 cm; Wt 45.0 kg
[2024-07-24] MEDS ORDERED: FREESTYLE LIBR TD (22:24)
[2024-07-24 22:31] VITALS: BP 152/52
== END 2024-07-24 22:33 | disposition home or self-care (01) ==
LOC: ED 21:09
DX: E10.65 Type 1 diabetes mellitus with hyperglycemia (principal); E10.22 Type 1 diabetes mellitus with diabetic chronic kidney disease; I12.9 Hypertensive chronic kidney disease with stage 1 through stage 4 chronic kidney disease, or unspecified chronic kidney disease; N18.9 Chronic kidney disease, unspecified; E78.5 Hyperlipidemia, unspecified; H91.91 Unspecified hearing loss, right ear; Z97.4 Presence of external hearing-aid; Z88.2 Allergy status to sulfonamides; Z88.0 Allergy status to penicillin; Z88.1 Allergy status to other antibiotic agents; Z88.5 Allergy status to narcotic agent; Z88.8 Allergy status to other drugs, medicaments and biological substances; Z79.4 Long term (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; Z79.82 Long term (current) use of aspirin; Z79.899 Other long term (current) 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
CPT/HCPCS: 99282

== ENCOUNTER 2024-07-29 23:20 | Emergency (ER) | payer OTHER ==
[~2024-07-29] VITALS: Ht 149.9 cm; Wt 42.0 kg
[~2024-07-29 23:20] MED LIST changes: +FREESTYLE LIBR TD
[2024-07-29] MEDS ORDERED: HYDROCODONE/ACETA 5/325 TAB PO ONE (23:45)
[2024-07-29] MEDS ORDERED: ONDANSETRON 4 MG TAB ODT SL ONE (23:45)
[2024-07-29] MEDS ORDERED: LIDOCAINE & ANTACID 35 ML BTL PO ONE (23:45)
[2024-07-29 23:53] LABS: PH, VENOUS 7.349 (7.31-7.41)
[2024-07-29 23:54] LABS: BASOPHILS 0.9 % (0-2); EOSINOPHILS 2.5 % (0-6); HEMATOCRIT 27.8 % (35.0-50.0); HEMOGLOBIN 8.9 g/dL (12.0-18.0); LYMPHOCYTES 33.2 % (24-44); MCH 28.1 (27-36); MCV 87.8 fl (81-99); MONOCYTES 8.1 % (0-12); NEUTROPHILS 55.3 % (39-80); PLATELET COUNT 478 K/uL (140-440); RBC 3.17 M/ul (4.3-5.7); RDW 15.8 (10.5-15.0)
[2024-07-30 00:11] LABS: ALBUMIN 3.2 g/dL (3.4-5.0); ALBUMIN/GLOBULIN RATIO 0.71 (1.1-2.4); ANION GAP 19.7 (7-21); BILIRUBIN, TOTAL 0.2 ng/dL (0.2-1.0); BUN/CREATININE RATIO 12.69 (6.0-28.6); CALCIUM 8.5 mg/dL (8.5-10.1); CREATININE, SERUM 2.6 mg/dL (0.55-1.02); MAGNESIUM 2.3 mg/dL (1.8-2.4); POTASSIUM 4.7 mmol/L (3.5-5.1); PROTEIN, TOTAL 7.7 g/dL (6.4-8.2)
[2024-07-30 00:27] LABS: BILIRUBIN, URINE NEGATIVE (negative); BLOOD/HGB, URINE TRACE-L (Negative); KETONE, URINE NEGATIVE (Negative); LEUK ESTERASE, URINE NEGATIVE (negative); NITRITE, URINE NEGATIVE (negative); PH, URINE 6.5 (5-7)
[2024-07-30 00:32] LABS: BACTERIA, URINE RARE /hpf (negative); CASTS, URINE NONE SEEN \\lpf; CRYSTALS, URINE NONE SEEN (0-1+); EPITHELIAL CELLS, URINE SQUAMOUS 4+ /lpf (0-1+); RED BLOOD CELLS, URINE 0-1 /hpf (0-5)
[2024-07-30 00:33] LABS: COLLECTION TYPE, URINE CLEAN CATCH; REFLEX CULTURE, URINE No (No)
[2024-07-30] MEDS ORDERED: PROMETHAZINE HCL 25 MG HOME.PACK PO ONE (00:45)
[2024-07-30 00:47] VITALS: BP 139/89
[2024-07-31] MEDS ORDERED: ATIVAN1 MG PO (12:15)
== END 2024-07-30 00:47 | disposition home or self-care (01) ==
LOC: ED 23:20
PROVIDERS: Family Medicine
DX: K29.70 Gastritis, unspecified, without bleeding (principal); E10.22 Type 1 diabetes mellitus with diabetic chronic kidney disease; I12.9 Hypertensive chronic kidney disease with stage 1 through stage 4 chronic kidney disease, or unspecified chronic kidney disease; N18.9 Chronic kidney disease, unspecified; D63.1 Anemia in chronic kidney disease; E78.5 Hyperlipidemia, unspecified; H91.91 Unspecified hearing loss, right ear; Z97.4 Presence of external hearing-aid; Z90.49 Acquired absence of other specified parts of digestive tract; Z88.2 Allergy status to sulfonamides; Z88.8 Allergy status to other drugs, medicaments and biological substances; Z88.0 Allergy status to penicillin; Z88.1 Allergy status to other antibiotic agents; Z88.5 Allergy status to narcotic agent; Z79.82 Long term (current) use of aspirin; Z79.4 Long term (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; Z79.899 Other long term (current) 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
CPT/HCPCS: 36415; 80053; 81001; 82010; 82803; 83690; 83735; 84703; 85025; 99284; A9270

== ENCOUNTER 2024-08-08 02:53 | Emergency (ER) | payer OTHER ==
[~2024-08-08] VITALS: Ht 149.9 cm; Wt 43.7 kg
[~2024-08-08 02:53] MED LIST changes: +ATIVAN1 MG PO
[2024-08-08 03:16] LABS: BILIRUBIN, URINE NEGATIVE (negative); BLOOD/HGB, URINE NEGATIVE (Negative); KETONE, URINE NEGATIVE (Negative); LEUK ESTERASE, URINE NEGATIVE (negative); NITRITE, URINE NEGATIVE (negative)
[2024-08-08 03:26] LABS: BACTERIA, URINE 1+ /hpf (negative); CASTS, URINE NONE SEEN \\lpf; COLLECTION TYPE, URINE CLEAN CATCH; CRYSTALS, URINE NONE SEEN (0-1+); EPITHELIAL CELLS, URINE SQUAMOUS 2+ /lpf (0-1+); REFLEX CULTURE, URINE No (No)
[2024-08-08 03:46] LABS: BASOPHILS 2.9 % (0-2); EOSINOPHILS 1.6 % (0-6); HEMATOCRIT 28.2 % (35.0-50.0); LYMPHOCYTES 23.1 % (24-44); MCH 27.8 (27-36); MCHC 31.9 g/dl (30-36); MONOCYTES 5.2 % (0-12); NEUTROPHILS 67.2 % (39-80); PLATELET COUNT 528 K/uL (140-440); RBC 3.25 M/ul (4.3-5.7); RDW 15.9 (10.5-15.0)
[2024-08-08 04:04] LABS: ALBUMIN 3.3 g/dL (3.4-5.0); ALBUMIN/GLOBULIN RATIO 0.72 (1.1-2.4); BILIRUBIN, TOTAL 0.2 ng/dL (0.2-1.0); BUN/CREATININE RATIO 10.35 (6.0-28.6); CALCIUM 8.6 mg/dL (8.5-10.1); CREATININE, SERUM 2.51 mg/dL (0.55-1.02); MAGNESIUM 2.2 mg/dL (1.8-2.4); PROTEIN, TOTAL 7.9 g/dL (6.4-8.2)
[2024-08-08 04:27] VITALS: BP 139/107
== END 2024-08-08 04:27 | disposition home or self-care (01) ==
LOC: ED 02:53
PROVIDERS: Internal Medicine
DX: R10.9 Unspecified abdominal pain (principal); E10.22 Type 1 diabetes mellitus with diabetic chronic kidney disease; I12.9 Hypertensive chronic kidney disease with stage 1 through stage 4 chronic kidney disease, or unspecified chronic kidney disease; N18.9 Chronic kidney disease, unspecified; E78.5 Hyperlipidemia, unspecified; E78.1 Pure hyperglyceridemia; H91.91 Unspecified hearing loss, right ear; Z97.4 Presence of external hearing-aid; Z88.2 Allergy status to sulfonamides; Z88.0 Allergy status to penicillin; Z88.1 Allergy status to other antibiotic agents; Z88.5 Allergy status to narcotic agent; Z88.6 Allergy status to analgesic agent; Z88.8 Allergy status to other drugs, medicaments and biological substances; Z79.4 Long term (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; Z79.899 Other long term (current) 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
CPT/HCPCS: 36415; 80053; 81001; 82010; 83690; 83735; 84703; 85025; 99284

== ENCOUNTER 2024-08-10 02:46 | Emergency (ER) | payer OTHER ==
[~2024-08-10] VITALS: Ht 149.9 cm; Wt 432.0 kg
[2024-08-10] MEDS ORDERED: diphenhydrAMINE HCL 50 MG/ML VIAL IV ONE (03:30)
[2024-08-10] MEDS ORDERED: KETOROLAC TROMETHAMINE 15 MG/ML VIAL IV ONE (03:30)
[2024-08-10] MEDS ORDERED: LACTATED RINGER'S 1,000 ML IV ONE (03:30)
[2024-08-10] MEDS ORDERED: PROCHLORPERAZINE EDISYLATE 10 MG/2 ML VIAL IV ONE (03:30)
[2024-08-10] MEDS ORDERED: hydrOXYzine pamoate 50 MG CAP PO ONE (04:15)
[2024-08-10] MEDS ORDERED: QUETIAPINE FUMARATE 25 MG TAB PO ONE (05:00)
[2024-08-10 05:02] VITALS: BP 170/110
[2024-08-10] MEDS ORDERED: HYDROXYZINE HCL25 MG PO (13:32)
== END 2024-08-10 05:02 | disposition home or self-care (01) ==
LOC: ED 02:46
DX: G43.909 Migraine, unspecified, not intractable, without status migrainosus (principal); F41.9 Anxiety disorder, unspecified; G89.29 Other chronic pain; E11.22 Type 2 diabetes mellitus with diabetic chronic kidney disease; I12.9 Hypertensive chronic kidney disease with stage 1 through stage 4 chronic kidney disease, or unspecified chronic kidney disease; N18.9 Chronic kidney disease, unspecified; Z88.2 Allergy status to sulfonamides; Z88.0 Allergy status to penicillin; Z88.1 Allergy status to other antibiotic agents; Z88.5 Allergy status to narcotic agent; Z88.8 Allergy status to other drugs, medicaments and biological substances; Z79.899 Other long term (current) 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; Z79.4 Long term (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
CPT/HCPCS: 96374; 96375; 99284-25; A9270; J0780; J1200; J1885; J7121

== ENCOUNTER 2024-08-10 12:04 | Emergency (ER) | payer OTHER ==
[~2024-08-10] VITALS: Ht 149.9 cm; Wt 43.0 kg
[2024-08-10] MEDS ORDERED: LORazepam 1 MG TAB PO ONE (13:00)
[2024-08-10] MEDS ORDERED: hydrOXYzine pamoate 25 MG CAP PO ONE (13:00)
[2024-08-10] MEDS ORDERED: ONDANSETRON 4 MG TAB ODT SL ONE (13:15)
[2024-08-10] MEDS ORDERED: HYDROXYZINE HCL25 MG PO (13:32)
[2024-08-10 13:36] VITALS: BP 138/100
== END 2024-08-10 13:37 | disposition home or self-care (01) ==
LOC: ED 12:04
DX: F41.9 Anxiety disorder, unspecified (principal); E11.22 Type 2 diabetes mellitus with diabetic chronic kidney disease; I12.9 Hypertensive chronic kidney disease with stage 1 through stage 4 chronic kidney disease, or unspecified chronic kidney disease; N18.9 Chronic kidney disease, unspecified; Z88.2 Allergy status to sulfonamides; Z88.0 Allergy status to penicillin; Z88.1 Allergy status to other antibiotic agents; Z88.8 Allergy status to other drugs, medicaments and biological substances; Z88.5 Allergy status to narcotic agent; Z79.899 Other long term (current) 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; Z79.4 Long term (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
CPT/HCPCS: 99283; A9270; A9270-GY; Q0177

== ENCOUNTER 2024-10-11 18:51 | Emergency (ER) | payer OTHER ==
[~2024-10-11] VITALS: Ht 149.9 cm; Wt 42.6 kg
[~2024-10-11 18:51] MED LIST changes: +VITAMIN D31250 MCG PO; -VITAMIN D325 MCG PO
[2024-10-11] MEDS ORDERED: PANTOPRAZOLE SODIUM 40 MG TABEC PO ONE (21:45)
[2024-10-11] MEDS ORDERED: SUCRALFATE 1 GM TAB PO ONE (21:45)
[2024-10-11 22:03] VITALS: BP 129/94
[2024-10-11] MEDS ORDERED: PRILOSEC OTC20 MG PO (22:06)
[2024-10-11] MEDS ORDERED: CARAFATE1 GM/10 ML PO (22:06)
== END 2024-10-11 22:14 | disposition home or self-care (01) ==
LOC: ED 18:51
DX: K21.9 Gastro-esophageal reflux disease without esophagitis (principal); E10.22 Type 1 diabetes mellitus with diabetic chronic kidney disease; I12.9 Hypertensive chronic kidney disease with stage 1 through stage 4 chronic kidney disease, or unspecified chronic kidney disease; N18.9 Chronic kidney disease, unspecified; H91.91 Unspecified hearing loss, right ear; Z97.4 Presence of external hearing-aid; Z88.2 Allergy status to sulfonamides; Z88.0 Allergy status to penicillin; Z88.1 Allergy status to other antibiotic agents; Z88.5 Allergy status to narcotic agent; Z88.6 Allergy status to analgesic agent; Z88.8 Allergy status to other drugs, medicaments and biological substances; Z79.4 Long term (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; Z79.899 Other long term (current) 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
CPT/HCPCS: 99283; A9270

== ENCOUNTER 2024-10-12 13:32 | Inpatient (IN) | payer OTHER ==
[~2024-10-12] VITALS: Ht 149.9 cm; Wt 44.1 kg
[~2024-10-12 13:32] MED LIST changes: +CARAFATE1 GM/10 ML PO; +PRILOSEC OTC20 MG PO
[2024-10-12 15:15] LABS: PH, VENOUS 7.294 (7.31-7.41)
[2024-10-12] MEDS ORDERED: DEXTROSE 50% 50 ML SYR IV ONE (15:15)
[2024-10-12 15:18] LABS: BASOPHILS 0.8 % (0-2); EOSINOPHILS 2.1 % (0-6); HEMATOCRIT 33.4 % (35.0-50.0); HEMOGLOBIN 10.8 g/dL (12.0-18.0); LYMPHOCYTES 28.5 % (24-44); MCH 27.9 (27-36); MCHC 32.4 g/dl (30-36); MCV 86.3 fl (81-99); MONOCYTES 8.8 % (0-12); NEUTROPHILS 59.8 % (39-80); PLATELET COUNT 381 K/uL (140-440); RBC 3.87 M/ul (4.3-5.7); RDW 15.7 (10.5-15.0)
[2024-10-12] MEDS ORDERED: LIDOCAINE & ANTACID 35 ML BTL PO ONE (15:45)
[2024-10-12 15:46] LABS: ALBUMIN 3.7 g/dL (3.4-5.0); ALBUMIN/GLOBULIN RATIO 0.84 (1.1-2.4); ALT (SGPT) 75 U/L (14-59); ANION GAP 16.4 (7-21); AST (SGOT) 71 U/L (15-37); BILIRUBIN, TOTAL 0.3 ng/dL (0.2-1.0); BUN/CREATININE RATIO 14.34 (6.0-28.6); CALCIUM 9.3 mg/dL (8.5-10.1); CARBON DIOXIDE 24 mmol/L (21-32); CHLORIDE 106 mmol/L (98-107); GLOMERULAR FILTRATION RATE,EST 30 mL/min (>60); POTASSIUM 3.4 mmol/L (3.5-5.1); PROTEIN, TOTAL 8.1 g/dL (6.4-8.2); UREA NITROGEN 33 mg/dL (7-18)
[2024-10-12 15:48] LABS: ALKALINE PHOSPHATASE 1200 U/L (46-116)
[2024-10-12] MEDS ORDERED: HYDROmorphone HCL 1 MG/ML SYR IV PRN (16:00)
[2024-10-12] MEDS ORDERED: ondansetron HCL 4 MG/2 ML VIAL IV ONE (16:00)
[2024-10-12] MEDS ORDERED: diphenhydrAMINE HCL 50 MG/ML VIAL IV ONE ×2 (16:45→18:45)
[2024-10-12] MEDS ORDERED: PANTOPRAZOLE SODIUM 40 MG/10 ML VIAL IV SCH (17:37)
[2024-10-12] MEDS ORDERED: ondansetron HCL 4 MG/2 ML VIAL IV PRN (17:45)
[2024-10-12] MEDS ORDERED: DEXTROSE 50% 50 ML SYR IV PRN ×2 (17:45)
[2024-10-12] MEDS ORDERED: ACETAMINOPHEN 325 MG TAB PO PRN (17:45)
[2024-10-12] MEDS ORDERED: DEXTROSE 5% 1,000 ML IV PRN (17:45)
[2024-10-12] MEDS ORDERED: GLUCAGON,HUMAN RECOMBINANT 1 MG/ML VIAL SUB-Q PRN (17:45)
[2024-10-12] MEDS ORDERED: LACTATED RINGER'S 1,000 ML IV SCH (17:45)
[2024-10-12] MEDS ORDERED: IBLOOD GLUCOSE TEST STRIP 1 EA TEST XX PRN (17:45)
[2024-10-12] MEDS ORDERED: PROCHLORPERAZINE EDISYLATE 10 MG/2 ML VIAL IV PRN (17:45)
[2024-10-12 17:53] LABS: AMYLASE 139 U/L (25-115); TRIGLYCERIDES 374 ng/dL (<150)
[2024-10-12 18:12] VITALS: BP 133/88
[2024-10-12] MEDS ORDERED: ACETAMINOPHEN 1,000 MG/100 ML VIAL IV PRN (18:15)
--- NOTE | 2024-10-12 18:54 | NUR ---
PT TO [place] VIA JANNA ABLE TO SELF TRANFER TO THE BED, FAMILY MEMBER PRESENT WTIH HER. PT ORIENTED TO ROOM, AGREES SHE HAS BEEN HERE BEFORE AND IS FAMILIAR WITH BED CONTROLS AND ROUTINE. C/O ITCHING STATES 25 OF BENADRYL IS NOT ENOUGH THAT IF NORMALLY TAKES [address] LOPES NOTIFIED AND AGREES TO ADDITIONAL BENEDRYL. PT IS RESTING WATCHING TV DENIES IMMEDIATE NEED. CALL LIGHT AND NEEDED ITEMS IN REACH
--- NOTE | 2024-10-12 19:31 | NUR ---
REPORT RECIEVED FROM DAY SHIFT RN. PATIENT RESTING IN BED. DENIES NEEDS AT THIS TIME. CALL LIGHT IN REACH.
[2024-10-12] MEDS ORDERED: IBLOOD GLUCOSE TEST STRIP 1 EA TEST VI SCH ×2 (20:00→21:00)
[2024-10-12] MEDS ORDERED: INSULIN LISPRO 100 UNIT/ML ML SUB-Q SCH ×2 (20:00→21:00)
[2024-10-12 20:24] VITALS: BP 130/94
--- NOTE | 2024-10-12 20:34 | NUR ---
PATIENT RESTING IN BED. VS AND I&Os OBTAINED AND RECORDED. PATIENT REPORTS 8/10 ABD PAIN. PRN PAIN MEDICATION ADMINISTERED PER PATIENT REQUEST. PATIENT REQUESTING ICE CHIPS. ICE CHIPS PROVIDED. ASSESSMENT COMPLETE. BLOOD SUGAR 87 PER PATIENT OWN BS MONITOR. PATIENT DENIES FURTHER NEEDS. IV FLUSHES WNL. CALL LIGHT IN REACH.
[2024-10-12] MEDS ORDERED: MELATONIN 3 MG TAB PO PRN (21:00)
--- NOTE | 2024-10-12 21:39 | NUR ---
PHONE CALL FROM US, QUESTION REPEAT ABD US ORDER. MD MACIELD, TO DC ORDER.
--- NOTE | 2024-10-12 22:20 | NUR ---
CALL LIGHT ANSWERED. PATIENT REQUESTING PRN SLEEP MEDICATION, MEDICATION ADMINISTERED. WARM BLANKET PROVIDED. PATIENT HAS NO FURTHER NEEDS. CALL LIGHT IN REACH.
--- NOTE | 2024-10-12 23:12 | NUR ---
CALL LIGHT ANSWERED. PATIENT REPORTING 9/10 ABD PAIN. PRN PAIN MEDICATION ADMINISTERED. NO FURTHER NEEDS. CALL LIGHT IN REACH.
--- NOTE | 2024-10-13 00:16 | NUR ---
CALL LIGHT ANSWERED. PATIENT REQUESTING PRN PAIN MEDICATION FOR 9/10 ABD PAIN. PRN PAIN MEDICATION ADMINISTERED. PATIENT REQUESTING PRN NAUSEA MEDICATION. MEDICATION ADMINISTERED. NO FURTHER NEEDS. CALL LIGHT IN REACH.
[2024-10-13 00:24] VITALS: BP 113/76
[2024-10-13 00:25] VITALS: BP 113/76
--- NOTE | 2024-10-13 00:26 | NUR ---
CALL LIGHT ANSWERED. VS AND I&Os OBTAINED AND RECORDED. NO FURTHER NEEDS. CALL LIGHT IN REACH.
--- NOTE | 2024-10-13 01:00 | NUR ---
FALL MATS PLACED ON FLOOR ON BOTH SIDES OF BED.
--- NOTE | 2024-10-13 02:17 | NUR ---
MD LOPES UPDATED VIA TELEPHONE ON PATIENTS ITCHING. NEW ORDERS PLACED. VERIFIED USING REPEAT BACK METHOD.
[2024-10-13] MEDS ORDERED: diphenhydrAMINE HCL 25 MG CAP PO PRN (02:30)
--- NOTE | 2024-10-13 02:50 | NUR ---
PATIENT RESTING IN BED REQUESTING PRN ITCHING AND PAIN MEDICATION. THIS RN GAVE PATIENT PO ITCHING MEDICATION AND PATIENT STATES "I DO NOT UNDERSTAND WHY HE DID NOT GIVE ME THIS FOR MY IV. I HAVE NOT BEEN KEEPING ANYTHING DOWN". PATIENT AGREED TO TAKE THE PO ITCHING MEDICATION SINCE SHE HAS KEPT HER PO MEDICATION AND ICE CHIPS DOWN THROUGHOUT THIS SHIFT. PRN PAIN MEDICATION ADMINISTERED. NO FURTHER NEEDS. CALL LIGHT IN REACH.
--- NOTE | 2024-10-13 04:11 | NUR ---
PT CALLED FOR ICE PACKS. MEDICAL STAFF COORDINATOR BROUGHT HER ICE PACKS. PT HAD NO OTHER NEEDS AT THIS TIME.
--- NOTE | 2024-10-13 04:47 | NUR ---
CALL LIGHT ANSWERED. IV PUMP ALARMING. NEW BAG IVF INFUSING WNL. pt COMPLAINS OF 7/10 ABDOMINAL PAIN, STATES "IT'S KEEPING ME UP". PRN MEDICATION ADMINISTERED. pt RESTING IN BED WITH . DENIES ADDITIONAL NEEDS. ON CELL PHONE AT THIS TIME. CALL LIGHT IN REACH.
[2024-10-13 05:12] VITALS: BP 106/66
[2024-10-13 05:29] LABS: BASOPHILS 0.6 % (0-2); EOSINOPHILS 0.8 % (0-6); HEMATOCRIT 27.9 % (35.0-50.0); HEMOGLOBIN 9.2 g/dL (12.0-18.0); LYMPHOCYTES 26.4 % (24-44); MCH 28.5 (27-36); MCHC 32.8 g/dl (30-36); MONOCYTES 7.9 % (0-12); NEUTROPHILS 64.3 % (39-80); PLATELET COUNT 310 K/uL (140-440); RBC 3.21 M/ul (4.3-5.7); RDW 15.8 (10.5-15.0)
--- NOTE | 2024-10-13 05:40 | NUR ---
PATIENT STATES THAT HER BS IS LOW. BS MACHINE READ 85. THIS RN BROUGHT PATIENT APPLE JUICE. PATIENT STATED THAT SHE WILL BE ABLE TO TOLERATE THE JUICE. THIS RN EDUCATED PATIENT TO TAKE IT SLOW AND NOT DRINK TOO MUCH AT ONE TIME. PATIENT VERBILIZED UNDERSTANDING. NO FURTHER NEEDS. CALL LIGHT IN REACH.
[2024-10-13 05:53] LABS: ALBUMIN/GLOBULIN RATIO 0.79 (1.1-2.4); ANION GAP 13.7 (7-21); BILIRUBIN, TOTAL 0.3 ng/dL (0.2-1.0); BUN/CREATININE RATIO 12.61 (6.0-28.6); CALCIUM 8.5 mg/dL (8.5-10.1); CREATININE, SERUM 2.14 mg/dL (0.55-1.02); POTASSIUM 3.7 mmol/L (3.5-5.1); PROTEIN, TOTAL 6.8 g/dL (6.4-8.2)
--- NOTE | 2024-10-13 07:07 | NUR ---
VERBAL REPORT RECEIVED FROM BLAIRE COLEMAN. PT RESTS IN BED, AWAKE, CALL LIGHT IN REACH, NO REQUESTS AT THIS TIME.
[2024-10-13] MEDS ORDERED: HYDROCODONE/ACETA 5/325 TAB PO PRN (07:30)
--- NOTE | 2024-10-13 07:42 | NUR ---
UR CLINICAL REVIEW: [facility] INPT FOR PANCREATITIS BASIC DMAP INPT 10/12/24 @1738 ORDER MATCHES REG NO AUTH REQUIRED PER MEDICAID GUIDELINES DISCHARGE TO HOME WHEN STABLE 10/15/24
[2024-10-13] MEDS ORDERED: KETOROLAC TROMETHAMINE 15 MG/ML VIAL IV PRN (07:45)
[2024-10-13 08:54] VITALS: BP 132/88
--- NOTE | 2024-10-13 09:15 | NUR ---
PT CALLS, REPORTS PAIN, NAUSEA AND EMESIS. NOTED A FEW TISSUES WITH SPUTUM IN EMESIS BAG, NO DISCERNIBLE EFFLUENT NOTED. PT RECEIVES COMPAZINE FOR NAUSEA AND TORADOL FOR ABDOMINAL PAIN. PT REPORTS "ITCHINESS" AND REQUESTS BENADRYL FOR THIS, PT THEN REFUSES ORAL BENADRYL, REQUESTS "SOMETHING IV" FOR ITCHINESS. DR. LOPES NOTIFIED.
--- NOTE | 2024-10-13 09:59 | NUR ---
PT NOW RESTS IN BED WITH EYES CLOSED, RESP EVEN AND UNLABORED.
--- NOTE | 2024-10-13 10:20 | NUR ---
Spoke with Milly and her spouse, Pablo. Pt not feeling well and resting with eyes closed. She asks I speak with her spouse. Dr. Vega in room and visiting with pt. They cont. to live in a house without steps. She does not use any DME. They did go to [facility] for her brain tumor, but her BS was high and they declined to aspirate/remove it. Pt has not followed up or returned. Pablo states she is having more headaches. She has considered a fu appt. He states she is "not good" at following a diabetic diet and her BS ranges in the high 100s to 300s. She did start the diabetic class at [facility], but did not complete. Dr. Vega asked if she would like to go home today and he will return at 1 pm for a possible dc depending on how pt feels. Pt denies other needs. Spouse denies financial issues. Home when cleared medically.
[2024-10-13] MEDS ORDERED: IBLOOD GLUCOSE TEST STRIP 1 EA TEST VI SCH (11:00)
[2024-10-13] MEDS ORDERED: PHARMACY RENAL DOSE ADJUSTMENT 1 DOSE MISC PO SCH (12:00)
[2024-10-13 13:15] VITALS: BP 130/87
--- NOTE | 2024-10-13 13:24 | NUR ---
PT RESTS IN BED WITH LIGHTS DIMMED. PT REPORTS PAIN AND NAUSEA TOLERABLE AT THIS TIME. DENIES ITCHINESS. REPORTS SHE IS READY TO TRY ORAL INTAKE, REQUESTS SALMON AND/OR RICE. DIET ADVANCED TO REGULAR. PT ECOURAGED TO TRY SIPS OF WATER AND SALTINE. SALMON AND RICE REQUESTED FROM DIETARY FOR DINNER.
--- NOTE | 2024-10-13 13:28 | NUR ---
DR. LOPES UPDATED ON PT PROGRESS VIA PHONE.
--- NOTE | 2024-10-13 13:33 | NUR ---
PT DECLINED SPIRITUAL CARE SERVICES. PROVIDED PRAYER.
[2024-10-13] MEDS ORDERED: CALCITRIOL0.25 MCG PO (14:54)
[2024-10-13] MEDS ORDERED: FERROUS SULFAT325 M2 PO (14:54)
[2024-10-13] MEDS ORDERED: HYDROXYZINE PAM25 MG PO (14:55)
[2024-10-13] MEDS ORDERED: BUSPIRONE HCL15 MG PO (14:56)
[2024-10-13] MEDS ORDERED: NEURONTIN100 MG PO (14:57)
[2024-10-13] MEDS ORDERED: INSULIN GL300 UNIT/1 SUB-Q (14:58)
--- NOTE | 2024-10-13 14:59 | NUR ---
PT EATS 50% OF MEAL, RICE AND SALMON, TOLERATES THIS WELL, DENIES NAUSEA. REPORTS ABDOMINAL PAIN 03/24, TORADOL RECEIVED IV. PT WILLING TRY PO MEDICATION, NORCO AND BENADRYL RECEIVED. PT ENCOURAGED TO CALL IF NAUSEA OCCURS, CALL LIGHT IN REACH, PT RESTS IN BED, SPOUSE AT BED SIDE. NO FURTHER REQUESTS AT THIS TIME.
[2024-10-13] MEDS ORDERED: COZAAR25 MG PO (15:02)
--- NOTE | 2024-10-13 16:44 | NUR ---
PT ASKS, "CAN I GO HOME?" PT REPORTS PAIN TOLERABLE AT THIS TIME AND DENIES NAUSEA OR ITCHINESS. DR. LOPES NOTIFIED.
[2024-10-13] MEDS ORDERED: HYDROCODON-ACE1 EA10 PO (16:50)
[2024-10-13] MEDS ORDERED: LIPITOR40 MG PO (16:52)
[2024-10-13] MEDS ORDERED: PROCHLORPERAZINE5 MG PO (17:07)
--- NOTE | 2024-10-13 17:30 | NUR ---
DISCUSSED DISCHARGE INSTRUCTIONS WITH PT AND SPOUSE, BOTH VERBALIZE UNDERSTANDING. SPOUSE TAKES PT BELONGINGS, LEAVES TO PULL CAR AROUND TO CPA TAX AREA. VITAL SIGNS STABLE TO PT BASELINE. PT DRESSES SELF. IV REMOVED, TIP INTACT, GAUZE AND TAPE DRESSING APPLIED TO SITE. PT LEAVES UNIT VIA WHEELCHAIR IN NO APPARENT DISTRESS, ESCORTED BY MARTA BARNARD TO CAR DRIVEN BY SPOUSE.
== END 2024-10-13 17:30 | disposition home or self-care (01) | DRG 440 ==
LOC: ED 13:32 → MS 17:46
PROVIDERS: Emergency Medicine; ADMIT Student in an Organized Health Care Education/Training Program; ATTEND Student in an Organized Health Care Education/Training Program
DX: K85.90 Acute pancreatitis without necrosis or infection, unspecified (principal); E78.00 Pure hypercholesterolemia, unspecified; D64.9 Anemia, unspecified; F41.1 Generalized anxiety disorder; H91.91 Unspecified hearing loss, right ear; E10.22 Type 1 diabetes mellitus with diabetic chronic kidney disease; I12.9 Hypertensive chronic kidney disease with stage 1 through stage 4 chronic kidney disease, or unspecified chronic kidney disease; N18.9 Chronic kidney disease, unspecified; K21.9 Gastro-esophageal reflux disease without esophagitis; Z85.6 Personal history of leukemia; Z88.2 Allergy status to sulfonamides; Z88.1 Allergy status to other antibiotic agents; Z88.0 Allergy status to penicillin; Z88.5 Allergy status to narcotic agent; Z86.14 Personal history of Methicillin resistant Staphylococcus aureus infection; Z97.4 Presence of external hearing-aid
CPT/HCPCS: 36415; 76705; 80053; 82010; 82150; 82803; 83690; 83735; 84478; 84702; 84703; 85025; J0131; J0780; J1171; J1200; J1885; J2405; J2470; J7121

== ENCOUNTER 2024-10-14 20:32 | Emergency (ER) | payer OTHER ==
[~2024-10-14] VITALS: Ht 149.9 cm; Wt 44.9 kg
[~2024-10-14 20:32] MED LIST changes: +BUSPIRONE HCL15 MG PO; +CALCITRIOL0.25 MCG PO; +COZAAR25 MG PO; +HYDROXYZINE PAM25 MG PO; +INSULIN GL300 UNIT/1 SUB-Q; +LIPITOR40 MG PO; +NEURONTIN100 MG PO
[2024-10-14 21:08] LABS: BILIRUBIN, URINE NEGATIVE (negative); BLOOD/HGB, URINE NEGATIVE (Negative); KETONE, URINE NEGATIVE (Negative); LEUK ESTERASE, URINE NEGATIVE (negative); NITRITE, URINE NEGATIVE (negative)
[2024-10-14 21:13] LABS: EPITHELIAL CELLS, URINE SQUAMOUS 2+ /lpf (0-1+); RED BLOOD CELLS, URINE 0-1 /hpf (0-5)
[2024-10-14 21:14] LABS: BACTERIA, URINE RARE /hpf (negative); CASTS, URINE NONE SEEN \\lpf; COLLECTION TYPE, URINE CLEAN CATCH; CRYSTALS, URINE NONE SEEN (0-1+); REFLEX CULTURE, URINE No (No)
[2024-10-14 21:39] VITALS: BP 155/101
== END 2024-10-14 21:42 | disposition home or self-care (01) ==
LOC: ED 20:32
PROVIDERS: Internal Medicine
DX: R33.9 Retention of urine, unspecified (principal); E10.22 Type 1 diabetes mellitus with diabetic chronic kidney disease; I12.9 Hypertensive chronic kidney disease with stage 1 through stage 4 chronic kidney disease, or unspecified chronic kidney disease; N18.9 Chronic kidney disease, unspecified; H91.91 Unspecified hearing loss, right ear; E78.5 Hyperlipidemia, unspecified; Z97.4 Presence of external hearing-aid; Z90.49 Acquired absence of other specified parts of digestive tract; Z88.2 Allergy status to sulfonamides; Z88.0 Allergy status to penicillin; Z88.1 Allergy status to other antibiotic agents; Z88.5 Allergy status to narcotic agent; Z88.6 Allergy status to analgesic agent; Z88.8 Allergy status to other drugs, medicaments and biological substances; Z79.4 Long term (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; Z79.899 Other long term (current) 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
CPT/HCPCS: 51798; 81001; 99283

== ENCOUNTER 2024-11-04 21:29 | Emergency (ER) | payer OTHER ==
[~2024-11-04] VITALS: Ht 149.9 cm; Wt 45.4 kg
[2024-11-04] MEDS ORDERED: HYDROCODONE/ACETA 5/325 TAB PO ONE (21:45)
[2024-11-04] MEDS ORDERED: IBLOOD GLUCOSE TEST STRIP 1 EA TEST XX ONE (21:45)
[2024-11-04] MEDS ORDERED: ONDANSETRON 4 MG TAB ODT SL ONE (21:45)
[2024-11-04 21:54] LABS: PH, VENOUS 7.278 (7.31-7.41)
[2024-11-04 21:56] LABS: HEMOGLOBIN 9.2 g/dL (12.0-18.0); MCV 90.2 fl (81-99)
[2024-11-04 21:59] LABS: BASOPHILS 0.5 % (0-2); EOSINOPHILS 2.3 % (0-6); HEMATOCRIT 28.9 % (35.0-50.0); LYMPHOCYTES 28.7 % (24-44); MCH 28.6 (27-36); MCHC 31.7 g/dl (30-36); MONOCYTES 7.6 % (0-12); NEUTROPHILS 60.9 % (39-80); PLATELET COUNT 464 K/uL (140-440); RBC 3.21 M/ul (4.3-5.7); RDW 16.3 (10.5-15.0)
[2024-11-04 22:03] LABS: BILIRUBIN, URINE NEGATIVE (negative); BLOOD/HGB, URINE TRACE-I (Negative); KETONE, URINE NEGATIVE (Negative); LEUK ESTERASE, URINE NEGATIVE (negative); NITRITE, URINE NEGATIVE (negative); PH, URINE 5.5 (5-7)
[2024-11-04 22:09] LABS: RED BLOOD CELLS, URINE 0-1 /hpf (0-5)
[2024-11-04 22:10] LABS: BACTERIA, URINE RARE /hpf (negative); CASTS, URINE NONE SEEN \\lpf; CRYSTALS, URINE NONE SEEN (0-1+)
[2024-11-04 22:11] LABS: ALBUMIN 3.2 g/dL (3.4-5.0); ALBUMIN/GLOBULIN RATIO 0.74 (1.1-2.4); ANION GAP 19.5 (7-21); BILIRUBIN, TOTAL 0.2 mg/dL (0.2-1.0); BUN/CREATININE RATIO 8.52 (6.0-28.6); CALCIUM 8.3 mg/dL (8.5-10.1); CREATININE, SERUM 2.58 mg/dL (0.55-1.02); POTASSIUM 4.5 mmol/L (3.5-5.1); PROTEIN, TOTAL 7.5 g/dL (6.4-8.2)
[2024-11-04 22:11] LABS: COLLECTION TYPE, URINE CLEAN CATCH; REFLEX CULTURE, URINE No (No)
[2024-11-04 22:12] LABS: EPITHELIAL CELLS, URINE SQUAMOUS 2+ /lpf (0-1+)
[2024-11-04] MEDS ORDERED: INSULIN LISPRO 100 UNIT/ML ML SUB-Q ONE (22:15)
[2024-11-04] MEDS ORDERED: FLUCONAZOLE 150 MG TAB PO ONE (22:30)
[2024-11-04] MEDS ORDERED: SUCRALFATE 1 GM TAB PO ONE (22:30)
[2024-11-04] MEDS ORDERED: LIDOCAINE & ANTACID 35 ML BTL PO ONE (22:30)
[2024-11-04] MEDS ORDERED: CAPSAICIN42.5 GM TOP (22:55)
[2024-11-04] MEDS ORDERED: ACETAMINOPHEN 325 MG TAB PO ONE (23:00)
[2024-11-04] MEDS ORDERED: CAPSAICIN 0.1% 56.6 GM TUBE TOP ONE (23:00)
[2024-11-04 23:04] VITALS: BP 155/104
== END 2024-11-04 23:04 | disposition home or self-care (01) ==
LOC: ED 21:29
PROVIDERS: Family Medicine
DX: E10.65 Type 1 diabetes mellitus with hyperglycemia (principal); E10.22 Type 1 diabetes mellitus with diabetic chronic kidney disease; I12.9 Hypertensive chronic kidney disease with stage 1 through stage 4 chronic kidney disease, or unspecified chronic kidney disease; N18.30 Chronic kidney disease, stage 3 unspecified; E78.1 Pure hyperglyceridemia; H91.91 Unspecified hearing loss, right ear; Z96.41 Presence of insulin pump (external) (internal); Z97.4 Presence of external hearing-aid; Z88.2 Allergy status to sulfonamides; Z88.1 Allergy status to other antibiotic agents; Z88.5 Allergy status to narcotic agent; Z88.8 Allergy status to other drugs, medicaments and biological substances; Z79.899 Other long term (current) 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
CPT/HCPCS: 36415; 74018; 80053; 81001; 82010; 82803; 83690; 84703; 85025; 99285; A9270; J1815

== ENCOUNTER 2024-11-18 21:44 | Emergency (ER) | payer OTHER ==
[~2024-11-18] VITALS: Ht 149.9 cm; Wt 45.0 kg
[~2024-11-18 21:44] MED LIST changes: +CAPSAICIN42.5 GM TOP
[2024-11-18 22:23] LABS: BILIRUBIN, URINE NEGATIVE (negative); BLOOD/HGB, URINE TRACE-I (Negative); KETONE, URINE NEGATIVE (Negative); LEUK ESTERASE, URINE NEGATIVE (negative); NITRITE, URINE POSITIVE (negative)
[2024-11-18 22:30] LABS: BACTERIA, URINE 1+ /hpf (negative); CASTS, URINE NONE SEEN \\lpf; COLLECTION TYPE, URINE CLEAN CATCH; CRYSTALS, URINE NONE SEEN (0-1+); EPITHELIAL CELLS, URINE SQUAMOUS 1+ /lpf (0-1+); RED BLOOD CELLS, URINE 0-1 /hpf (0-5); REFLEX CULTURE, URINE Yes (No)
[2024-11-18 22:43] LABS: BASOPHILS 0.5 % (0-2); EOSINOPHILS 3.4 % (0-6); HEMATOCRIT 27.8 % (35.0-50.0); HEMOGLOBIN 8.8 g/dL (12.0-18.0); LYMPHOCYTES 18.8 % (24-44); MCH 27.6 (27-36); MCHC 31.8 g/dl (30-36); MCV 86.7 fl (81-99); MONOCYTES 7.7 % (0-12); NEUTROPHILS 69.6 % (39-80); PLATELET COUNT 466 K/uL (140-440); RDW 15.6 (10.5-15.0)
[2024-11-18 23:02] LABS: ALBUMIN 3.3 g/dL (3.4-5.0); ALBUMIN/GLOBULIN RATIO 0.72 (1.1-2.4); BILIRUBIN, TOTAL 0.2 mg/dL (0.2-1.0); BUN/CREATININE RATIO 11.06 (6.0-28.6); CALCIUM 9.5 mg/dL (8.5-10.1); CREATININE, SERUM 2.35 mg/dL (0.55-1.02); PROTEIN, TOTAL 7.9 g/dL (6.4-8.2)
[2024-11-18] MEDS ORDERED: diphenhydrAMINE HCL 50 MG/ML VIAL IV ONE (23:45)
[2024-11-18] MEDS ORDERED: levoFLOXacin 500 MG TAB PO ONE (23:45)
[2024-11-18] MEDS ORDERED: KETOROLAC TROMETHAMINE 30 MG/ML VIAL IV ONE (23:45)
[2024-11-18] MEDS ORDERED: LACTATED RINGER'S 1,000 ML IV ONE (23:45)
[2024-11-18 23:50] LABS: CORONAVIRUS COVID-19 AG NEGATIVE (NEGATIVE); INFLUENZA A AG NEGATIVE (NEGATIVE); INFLUENZA B AG NEGATIVE (NEGATIVE)
[2024-11-19] MEDS ORDERED: LEVOFLOXACIN500 MG PO (01:22)
[2024-11-19 01:30] VITALS: BP 124/85
--- NOTE | 2024-11-19 19:46 | EKG ---
[facility] [address] [facility] [place] [address] Signed Sinus tachycardia Inferior infarct (cited on or before 06-JUL-2023) Abnormal ECG When compared with ECG of 24-JUL-2024 10:05, No significant change was found Confirmed by Anjum Lima MD ([id number]) on 11/19/2024 7:46:17 PM Electronically Signed By: ANJUM LIMA MD 11/19/24 194 PATIENT NAME: MONTSE GUTIERREZ Electrocardiogram DATE OF : [birth year] PHYSICIAN: ANJUM LIMA MD REPORT #: [id number] REPORT IS CONFIDENTIAL AND NOT TO BE RELEASED WITHOUT AUTHORIZATION
== END 2024-11-19 01:33 | disposition home or self-care (01) ==
LOC: ED 21:44
PROVIDERS: Internal Medicine
DX: N39.0 Urinary tract infection, site not specified (principal); J18.9 Pneumonia, unspecified organism; I12.9 Hypertensive chronic kidney disease with stage 1 through stage 4 chronic kidney disease, or unspecified chronic kidney disease; E10.22 Type 1 diabetes mellitus with diabetic chronic kidney disease; N18.9 Chronic kidney disease, unspecified; E78.5 Hyperlipidemia, unspecified; Z88.2 Allergy status to sulfonamides; Z88.8 Allergy status to other drugs, medicaments and biological substances; Z88.1 Allergy status to other antibiotic agents; Z88.0 Allergy status to penicillin; Z88.5 Allergy status to narcotic agent; Z79.899 Other long term (current) 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; Z79.4 Long term (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
CPT/HCPCS: 36415; 71045; 80053; 81001; 83690; 84484; 84703; 85025; 93005; 93010; J1200; J1885; J7121

== ENCOUNTER 2024-11-23 07:17 | Emergency (ER) | payer OTHER ==
[~2024-11-23] VITALS: Ht 149.9 cm; Wt 44.0 kg
[~2024-11-23 07:17] MED LIST changes: +LEVOFLOXACIN500 MG PO
[2024-11-23] MEDS ORDERED: HUMALOG100 UNITS/ SUB-Q (07:43)
[2024-11-23] MEDS ORDERED: ONDANSETRON 4 MG TAB ODT SL ONE (08:00)
[2024-11-23] MEDS ORDERED: HYDROCODONE/APAP 10/325 1 TAB PO ONE (08:00)
[2024-11-23 09:01] VITALS: BP 126/89
--- NOTE | 2024-11-23 22:04 | EKG ---
[facility] [address] [place] [address] Signed Sinus tachycardia Minimal voltage criteria for LVH, may be normal variant ( R in aVL ) Inferior infarct (cited on or before 06-JUL-2023) Anterolateral infarct , age undetermined Abnormal ECG When compared with ECG of 18-NOV-2024 21:54, Anterior infarct is now present Anterolateral infarct is now present Nonspecific T wave abnormality now evident in Anterolateral leads Confirmed by Sabino Simmons MD () on 11/23/2024 10:03:58 PM Electronically Signed By: SABINO SIMMONS MD 11/23/242203 PATIENT NAME: MONTSE GUTIERREZ Electrocardiogram DATE OF : [birth year] PHYSICIAN: SABINO SIMMONS MD REPORT #: [id number] REPORT IS CONFIDENTIAL AND NOT TO BE RELEASED WITHOUT AUTHORIZATION
== END 2024-11-23 09:01 | disposition home or self-care (01) ==
LOC: ED 07:17
DX: R05.9 Cough, unspecified (principal); E78.5 Hyperlipidemia, unspecified; E11.22 Type 2 diabetes mellitus with diabetic chronic kidney disease; I12.9 Hypertensive chronic kidney disease with stage 1 through stage 4 chronic kidney disease, or unspecified chronic kidney disease; N18.9 Chronic kidney disease, unspecified; E11.10 Type 2 diabetes mellitus with ketoacidosis without coma; Z79.4 Long term (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; Z79.899 Other long term (current) 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; Z88.2 Allergy status to sulfonamides; Z88.0 Allergy status to penicillin; Z88.1 Allergy status to other antibiotic agents; Z88.5 Allergy status to narcotic agent; Z88.6 Allergy status to analgesic agent
CPT/HCPCS: 71045; 93005; 93010; 99283-25; A9270

== ENCOUNTER 2024-11-24 23:28 | Emergency (ER) | payer OTHER ==
[~2024-11-24] VITALS: Ht 149.9 cm; Wt 45.0 kg
[~2024-11-24 23:28] MED LIST changes: +HUMALOG100 UNITS/ SUB-Q
[2024-11-25 00:14] LABS: ALBUMIN 2.9 g/dL (3.4-5.0); ALBUMIN/GLOBULIN RATIO 0.67 (1.1-2.4); ANION GAP 15.9 (7-21); BILIRUBIN, TOTAL 0.2 mg/dL (0.2-1.0); BUN/CREATININE RATIO 11.82 (6.0-28.6); CALCIUM 8.4 mg/dL (8.5-10.1); CREATININE, SERUM 2.96 mg/dL (0.55-1.02); POTASSIUM 3.9 mmol/L (3.5-5.1); PROTEIN, TOTAL 7.2 g/dL (6.4-8.2)
[2024-11-25 00:14] LABS: BILIRUBIN, URINE NEGATIVE (negative); BLOOD/HGB, URINE TRACE-I (Negative); KETONE, URINE NEGATIVE (Negative); LEUK ESTERASE, URINE NEGATIVE (negative); NITRITE, URINE NEGATIVE (negative)
[2024-11-25 00:20] LABS: BACTERIA, URINE 2+ /hpf (negative)
[2024-11-25 00:21] LABS: COLLECTION TYPE, URINE CLEAN CATCH; CRYSTALS, URINE NONE SEEN (0-1+); EPITHELIAL CELLS, URINE SQUAMOUS 2+ /lpf (0-1+); RED BLOOD CELLS, URINE 0-1 /hpf (0-5); REFLEX CULTURE, URINE No (No)
[2024-11-25 00:22] LABS: CASTS, URINE GRANULAR 2+ \\lpf
[2024-11-25 00:28] LABS: HEMATOCRIT 26.5 % (35.0-50.0); HEMOGLOBIN 8.7 g/dL (12.0-18.0); MCH 28.1 (27-36); MCHC 32.7 g/dl (30-36); PLATELET COUNT 381 K/uL (140-440); RBC 3.08 M/ul (4.3-5.7); RDW 15.7 (10.5-15.0)
[2024-11-25 00:30] VITALS: BP 116/81
[2024-11-25] MEDS ORDERED: ACETAMINOPHEN 325 MG TAB PO ONE (00:30)
[2024-11-25] MEDS ORDERED: LIDOCAINE & ANTACID 35 ML BTL PO ONE (00:30)
[2024-11-25] MEDS ORDERED: PANTOPRAZOLE SODIUM 40 MG/10 ML VIAL IV ONE (00:30)
[2024-11-25 00:45] LABS: BANDS, MANUAL DIFF 4; BASOPHILS, MANUAL DIFF 1; EOSINOPHILS, MANUAL DIFF 1; LYMPHOCYTES, MANUAL DIFF 35; MONOCYTES, MANUAL DIFF 15; NEUTROPHILS, MANUAL DIFF 44
== END 2024-11-25 00:42 | disposition home or self-care (01) ==
LOC: ED 23:28
PROVIDERS: Family Medicine
DX: K21.9 Gastro-esophageal reflux disease without esophagitis (principal); E10.22 Type 1 diabetes mellitus with diabetic chronic kidney disease; I12.9 Hypertensive chronic kidney disease with stage 1 through stage 4 chronic kidney disease, or unspecified chronic kidney disease; N18.9 Chronic kidney disease, unspecified; E78.5 Hyperlipidemia, unspecified; H91.91 Unspecified hearing loss, right ear; Z97.4 Presence of external hearing-aid; Z88.2 Allergy status to sulfonamides; Z88.8 Allergy status to other drugs, medicaments and biological substances; Z88.0 Allergy status to penicillin; Z88.1 Allergy status to other antibiotic agents; Z88.5 Allergy status to narcotic agent; Z88.6 Allergy status to analgesic agent; Z79.4 Long term (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; Z79.899 Other long term (current) 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
CPT/HCPCS: 36415; 80053; 81001; 83690; 85025; 99284

== ENCOUNTER 2024-12-19 17:55 | Inpatient (IN) | payer OTHER ==
[~2024-12-19] VITALS: Ht 149.9 cm; Wt 44.2 kg
[2024-12-19] MEDS ORDERED: ondansetron HCL 4 MG/2 ML VIAL IV PRN ×2 (18:30→20:30)
[2024-12-19] MEDS ORDERED: HYDROmorphone HCL 1 MG/ML SYR IV PRN (18:30)
[2024-12-19] MEDS ORDERED: SODIUM CHLORIDE 0.9% 500 ML IV PRN (18:30)
[2024-12-19 18:33] LABS: MCV 84.9 fl (81-99)
[2024-12-19 18:36] LABS: BASOPHILS 0.5 % (0-2); EOSINOPHILS 2.1 % (0-6); HEMATOCRIT 30.7 % (35.0-50.0); HEMOGLOBIN 10.2 g/dL (12.0-18.0); LYMPHOCYTES 25.9 % (24-44); MCH 28.1 (27-36); MCHC 33.1 g/dl (30-36); MONOCYTES 8.1 % (0-12); NEUTROPHILS 63.4 % (39-80); PLATELET COUNT 339 K/uL (140-440); RBC 3.61 M/ul (4.3-5.7); RDW 16.4 (10.5-15.0)
[2024-12-19 18:51] LABS: ALBUMIN 3.7 g/dL (3.4-5.0); ALBUMIN/GLOBULIN RATIO 0.84 (1.1-2.4); ALKALINE PHOSPHATASE 762 U/L (46-116); ALT (SGPT) 80 U/L (14-59); ANION GAP 19.3 (7-21); AST (SGOT) 50 U/L (15-37); BILIRUBIN, TOTAL 0.3 mg/dL (0.2-1.0); BUN/CREATININE RATIO 10.58 (6.0-28.6); CARBON DIOXIDE 19 mmol/L (21-32); CHLORIDE 108 mmol/L (98-107); CREATININE, SERUM 2.55 mg/dL (0.55-1.02); GLOMERULAR FILTRATION RATE,EST 26 mL/min (>60); POTASSIUM 4.3 mmol/L (3.5-5.1); PROTEIN, TOTAL 8.1 g/dL (6.4-8.2); UREA NITROGEN 27 mg/dL (7-18)
[2024-12-19] MEDS ORDERED: INSULIN REGULAR IN 0.9 % NACL 100 ML IV SCH (19:30)
[2024-12-19] MEDS ORDERED: diphenhydrAMINE HCL 50 MG/ML VIAL IV ONE (19:30)
[2024-12-19 19:42] LABS: CHOLESTEROL/HDL RATIO 5.6
[2024-12-19] MEDS ORDERED: LACTATED RINGER'S 1,000 ML IV SCH (20:15)
[2024-12-19] MEDS ORDERED: LACTATED RINGER'S 1,000 ML IV ONE (20:15)
[2024-12-19 20:25] LABS: BILIRUBIN, URINE NEGATIVE (negative); BLOOD/HGB, URINE TRACE-I (Negative); KETONE, URINE NEGATIVE (Negative); LEUK ESTERASE, URINE NEGATIVE (negative); NITRITE, URINE NEGATIVE (negative)
[2024-12-19] MEDS ORDERED: GLUCAGON,HUMAN RECOMBINANT 1 MG/ML VIAL SUB-Q PRN (20:30)
[2024-12-19] MEDS ORDERED: DEXTROSE 5% 1,000 ML IV PRN (20:30)
[2024-12-19] MEDS ORDERED: IBLOOD GLUCOSE TEST STRIP 1 EA TEST XX PRN (20:30)
[2024-12-19] MEDS ORDERED: MORPHINE SULFATE 4 MG/ML VIAL IV PRN (20:30)
[2024-12-19] MEDS ORDERED: diphenhydrAMINE HCL 50 MG/ML VIAL IV PRN (20:30)
[2024-12-19] MEDS ORDERED: DEXTROSE 50% 50 ML SYR IV PRN ×2 (20:30)
[2024-12-19 20:37] LABS: BACTERIA, URINE 1+ /hpf (negative); CASTS, URINE GRANULAR 2+ \\lpf; COLLECTION TYPE, URINE CLEAN CATCH; CRYSTALS, URINE NONE SEEN (0-1+); EPITHELIAL CELLS, URINE SQUAMOUS 2+ /lpf (0-1+); REFLEX CULTURE, URINE No (No)
[2024-12-19 20:56] VITALS: BP 125/83
--- NOTE | 2024-12-19 21:46 | NUR ---
PATIENT ARRIVED TO THE FLOOR VIA WHEELCHAIR. REPORT RECIEVED FROM ED RN. PATIENT ABLE TO SELF TRANSFER TO BED. PATIENTS VITALS TAKEN AND RECORDED. ASSEMENT COMPLETED. ADMISSION COMPLETED BY DESKTOP MANAGER. PATIENT IS RECEIVEING A BOLUS AT THIS TIME. PATIENT RATE MID EPIGASTRIC PAIN AT A 7/10, PRN PAIN MEDICATION GIVEN PER ORDER. PATIENT ALSO PROVIDED WARM PACK. PATIENT DENIES ANY NAUSEA. PATIENT REPORTS HAVING A BM THIS AM. ACTIVE BOWEL TONES NOTED. PATIENT DENIES ANY ABD DISTENTION. PATIENT UPDATED ON PLAN OF CARE AND ALL QUESTIONS ASNWERED. PATIENT DENIES ANY FURTHER NEEDS. CALL LIGHT IN REACH.
[2024-12-19 21:50] VITALS: BP 125/83
--- NOTE | 2024-12-19 22:04 | NUR ---
PATIENT IS RESTING IN BED WITH EYES CLOSED, RR 16. CALL LIGHT IN REACH. NAD NOTED. IV INFUSING PER ORDER
--- NOTE | 2024-12-19 23:23 | NUR ---
PATIENT CALLED AND REPORTED BEING "ITCHY", PRN MEDICATION GIVEN PER ORDER. PATIENT REPORTS NAUSEA, PRN NAUSEA MEDICATION. PATIENT PROVIDED WARM PACK FOR LUQ. MD CALLED TO CHECK ON PATIENTS. MD UPDATED ABOUT PATIENTS REQUEST FOR ANXIETY MEDICATION. RECEIVED VERBAL ORDER FOR PO ANXIETY MEDICATIONS, VERIFIED ORDER USING REPEATBACK METHOD. PATIENT UP TO BR IND. PATIENT ABLE TO VOID. PATIENT IS BACK IN BED RESTING. PATIENT DENIES ANY FURTHER NEEDS. CALL LIGHT IN REACH.
[2024-12-19] MEDS ORDERED: busPIRone HCL 15 MG TAB PO SCH (23:30)
--- NOTE | 2024-12-19 23:46 | NUR ---
SCHEDULED ANXIETY MEDICATION GIVEN PER ORDER WITH SIPS OF WATER. PATIENT UPDATED ON PLAN OF CARE AND ALL QUESTIONS ANSWERED. PATIENT DENIES ANY FURTHER NEEDS. CALL LIGHT IN REACH. IV INFUSING PER ORDER.
--- NOTE | 2024-12-20 00:01 | NUR ---
PATIENT IS RESTING IN BED WITH EYES CLOSED, RR 17. CALL LIGHT IN REACH. IV INFUSING PER ORDER. NAD NOTED.
[2024-12-20 01:05] VITALS: BP 100/67
--- NOTE | 2024-12-20 01:12 | NUR ---
PATIENTS VITALS TAKEN AND RECORDED. PATIENTS INTAKE AND OUTPUT RECORDED. PATIENT REPORTS 8/10 PAIN IN HER LUQ, PRN PAIN MEDICATION GIVEN PER ORDER. PATIENTS BS CHECKED AND IS WNL. PATIENT DENIES ANY FURTHER NEEDS. CALL LIGHT IN REACH.
[2024-12-20] MEDS ORDERED: IBLOOD GLUCOSE TEST STRIP 1 EA TEST XX SCH (02:00)
[2024-12-20] MEDS ORDERED: INSULIN LISPRO 100 UNIT/ML ML SUB-Q SCH (02:00)
--- NOTE | 2024-12-20 02:08 | NUR ---
PATIENT IS RESTING IN BED WITH EYES CLOSED, RR 16. NAD NOTED. IV INFUSING ORDER. CALL LIGHT IN REACH.
--- NOTE | 2024-12-20 04:17 | NUR ---
PATIENT IS RESTING IN BED WITH EYES CLOSED, RR 16. NAD NOTED. IV INFSING PER ORDER. CALL LIGHT IN REACH.
[2024-12-20 05:12] VITALS: BP 125/79
[2024-12-20 05:14] VITALS: BP 125/79
[2024-12-20 05:32] LABS: BASOPHILS 0.5 % (0-2); EOSINOPHILS 1.3 % (0-6); HEMATOCRIT 26.1 % (35.0-50.0); HEMOGLOBIN 8.4 g/dL (12.0-18.0); LYMPHOCYTES 23.8 % (24-44); MCH 27.6 (27-36); MCHC 32.2 g/dl (30-36); MCV 85.8 fl (81-99); MONOCYTES 8.9 % (0-12); NEUTROPHILS 65.5 % (39-80); PLATELET COUNT 263 K/uL (140-440); RBC 3.04 M/ul (4.3-5.7); RDW 16.8 (10.5-15.0)
--- NOTE | 2024-12-20 05:32 | NUR ---
PATIENTS UP TO BR IND. PATIENT IS BACK IN BED RESTING. PATIENT REPORTS NAUSEA, PRN MEDICATION GIVEN PER ORDER. PATIENT RATES PAIN AT A 8/10 IN UPPER MID ABD, PRN MEDICATION GIVEN PER ORDER. PATIENT REPORTS ITCHING, PRN MEDICATION GIVEN PER ORDER. PATIENTS IV FLUIDS INFUSING PER ORDER. WARM PACK PROVIDED AND PLACED ON PATIENTS MID UPPER ABD. PATIENT DENIES ANY FURTHER NEEDS. CALL LIGHT IN REACH.,
[2024-12-20 05:42] LABS: ANION GAP 16.8 (7-21); BUN/CREATININE RATIO 9.52 (6.0-28.6); CREATININE, SERUM 2.1 mg/dL (0.55-1.02); MAGNESIUM 1.9 mg/dL (1.8-2.4); POTASSIUM 4.8 mmol/L (3.5-5.1)
--- NOTE | 2024-12-20 06:27 | NUR ---
PATIENT IS RESTING IN BED WITH EYES CLOSED, RR 17. CALL LIGHT IN REACH. IV INFUSING PER ORDER. NAD NOTED.
--- NOTE | 2024-12-20 07:00 | NUR ---
REPORT RECEIVED FROM BLAIRE FUNG. PT
--- NOTE | 2024-12-20 08:11 | NUR ---
PT SITTING UP IN BED. ASKED FOR HOT PACK FOR ABD. GIVEN SMALL SIPS WITH PILL. PT REFUSED THE SEMGLEE INSULIN STATING THAT IT WOULD MESS WITH HER PUMP INSULIN EVEN THOUGH IT IS UNATTACHED TO HER ATT. STATES SHE FEELS BETTER THAN WHEN SHE CAME IN.
--- NOTE | 2024-12-20 08:15 | NUR ---
HOURLY ROUNDING. PATIENT WAS HARD TO WAKE UP, PARTNER WAS AT BEDSIDE. BOARD HAS BEEN UPDATED AND GLUCOSE HAS BEEN CHECKED AND DOC. PATIENT REQUESTED AN ICE PACK FOR HER STOMACH. NURSE HAS BEEN NOTIFIED NO FURTHER REQUESTS FROM PATIENT AT THIS TIME
--- NOTE | 2024-12-20 08:54 | NUR ---
pt called for pain meds, admininstered PER EMAR.
[2024-12-20] MEDS ORDERED: PANTOPRAZOLE SODIUM 40 MG/10 ML VIAL IV SCH (09:00)
[2024-12-20] MEDS ORDERED: INSULIN GLARGINE-YFGN 100 UNIT/ML ML SUB-Q SCH (09:00)
[2024-12-20] MEDS ORDERED: ENOXAPARIN SODIUM 40 MG/0.4 ML SYR SUB-Q SCH (09:00)
--- NOTE | 2024-12-20 09:00 | NUR ---
ADMINISTERED MORPH PER PT REQUEST.
[2024-12-20] MEDS ORDERED: MORPHINE SULFATE 4 MG/ML VIAL IV PRN (09:30)
[2024-12-20] MEDS ORDERED: LACTATED RINGER'S 1,000 ML IV SCH (09:30)
[2024-12-20] MEDS ORDERED: diphenhydrAMINE HCL 25 MG CAP PO PRN (09:30)
[2024-12-20] MEDS ORDERED: OXYCODONE HCL 5 MG TAB PO PRN (09:30)
[2024-12-20 09:39] VITALS: BP 135/90
--- NOTE | 2024-12-20 09:43 | NUR ---
INTO SEE PATIENT. PERSONAL HEALTH INFORMATION REVIEWED. PATIENT HAS A HOUSE WITH ONE STEP. PATIENT HAS NO DIFFCULTY DOING IT. PATIENT LIVES WITH [place]. DENIES ANY DME. PATIENT DENIES DIFFCULTY PAYING UTILIITES OR OBTAINING FOOD. SHE DOES DRIVE AT BASELINE. TO TAKE HER HOME AT DISCHARGE. NO FUTHER CM NEEDS AT THIS TIME.
[2024-12-20] MEDS ORDERED: PROMETHAZINE HC25 MG PR (10:22)
[2024-12-20] MEDS ORDERED: ROSUVASTATIN CA10 MG PO (10:26)
--- NOTE | 2024-12-20 11:12 | NUR ---
HOURLY ROUNDING. PATIENT REPORTS WANTING BE BE DISCHARGED NURSE AND CHARGE NURSE HAS BEEN NOTIFIED. DOCTOR TALKED TO PATIENT
--- NOTE | 2024-12-20 11:33 | NUR ---
UR CLINICAL REVIEW: MCG-PER MCG REVIEW MEETS INPT CRITERIA FOR PANCREATITIS WITH NEED FOR PAIN CONTROL BASIC DMAP INPT 12/19/24 @ 2014 ORDER MATCHES REG NO AUTH REQUIRED PER MEDICAID GUIDELINES DISCHARGE PLANND FOR TODAY 12/20/24
[2024-12-20] MEDS ORDERED: PHARMACY RENAL DOSE ADJUSTMENT 1 DOSE MISC PO SCH (12:00)
[2024-12-20] MEDS ORDERED: GABAPENTIN 100 MG CAP PO SCH (15:00)
== END 2024-12-20 11:25 | disposition home or self-care (01) | DRG 438 ==
LOC: ED 17:55 → MS 20:14
PROVIDERS: Emergency Medicine; ADMIT Student in an Organized Health Care Education/Training Program; ATTEND Student in an Organized Health Care Education/Training Program
DX: K85.90 Acute pancreatitis without necrosis or infection, unspecified (principal); E10.10 Type 1 diabetes mellitus with ketoacidosis without coma; K21.9 Gastro-esophageal reflux disease without esophagitis; E78.5 Hyperlipidemia, unspecified; F39 Unspecified mood [affective] disorder; H91.91 Unspecified hearing loss, right ear; N18.9 Chronic kidney disease, unspecified; E10.22 Type 1 diabetes mellitus with diabetic chronic kidney disease; I12.9 Hypertensive chronic kidney disease with stage 1 through stage 4 chronic kidney disease, or unspecified chronic kidney disease; Z96.41 Presence of insulin pump (external) (internal); Z88.2 Allergy status to sulfonamides; Z88.0 Allergy status to penicillin; Z88.8 Allergy status to other drugs, medicaments and biological substances; Z88.1 Allergy status to other antibiotic agents; Z88.5 Allergy status to narcotic agent; Z86.14 Personal history of Methicillin resistant Staphylococcus aureus infection; Z85.6 Personal history of leukemia; Z79.4 Long term (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; Z97.4 Presence of external hearing-aid
CPT/HCPCS: 36415; 80048; 80053; 80061; 81001; 83690; 83735; 84703; 85025; 85060; J1171; J1200; J1650; J1815; J2270; J2405; J2470; J7040; J7121

== ENCOUNTER 2024-12-23 00:44 | Inpatient (IN) | payer OTHER ==
[~2024-12-23] VITALS: Ht 149.9 cm; Wt 44.9 kg
[2024-12-23] VITALS (11 sets, daily range): BP systolic 128–149; BP diastolic 76–99
[~2024-12-23 00:44] MED LIST changes: +PROMETHAZINE HC25 MG PR; +ROSUVASTATIN CA10 MG PO; -VITAMIN D31250 MCG PO
[2024-12-23 01:20] LABS: BASOPHILS 0.8 % (0-2); HEMATOCRIT 28.9 % (35.0-50.0); HEMOGLOBIN 9.5 g/dL (12.0-18.0); LYMPHOCYTES 29.6 % (24-44); MCH 27.9 (27-36); MCHC 32.7 g/dl (30-36); MCV 85.2 fl (81-99); MONOCYTES 8.3 % (0-12); NEUTROPHILS 58.3 % (39-80); PLATELET COUNT 373 K/uL (140-440); RDW 16.4 (10.5-15.0)
[2024-12-23 01:40] LABS: ALBUMIN 3.4 g/dL (3.4-5.0); ALBUMIN/GLOBULIN RATIO 0.79 (1.1-2.4); ALKALINE PHOSPHATASE 606 U/L (46-116); ALT (SGPT) 45 U/L (14-59); ANION GAP 15.4 (7-21); AST (SGOT) 27 U/L (15-37); BILIRUBIN, TOTAL 0.4 mg/dL (0.2-1.0); BUN/CREATININE RATIO 8.11 (6.0-28.6); CALCIUM 8.7 mg/dL (8.5-10.1); CARBON DIOXIDE 24 mmol/L (21-32); CHLORIDE 103 mmol/L (98-107); CREATININE, SERUM 2.34 mg/dL (0.55-1.02); GLOMERULAR FILTRATION RATE,EST 29 mL/min (>60); POTASSIUM 4.4 mmol/L (3.5-5.1); PROTEIN, TOTAL 7.7 g/dL (6.4-8.2); UREA NITROGEN 19 mg/dL (7-18)
[2024-12-23] MEDS ORDERED: LACTATED RINGER'S 1,000 ML IV ONE (01:45)
[2024-12-23] MEDS ORDERED: HYDROmorphone HCL 1 MG/ML SYR IV ONE (02:00)
[2024-12-23] MEDS ORDERED: diphenhydrAMINE HCL 50 MG/ML VIAL IV ONE (02:00)
[2024-12-23] MEDS ORDERED: ondansetron HCL 4 MG/2 ML VIAL IV ONE (02:00)
[2024-12-23] MEDS ORDERED: PANTOPRAZOLE SODIUM 40 MG/10 ML VIAL IV ONE (02:00)
[2024-12-23 02:15] LABS: BILIRUBIN, URINE NEGATIVE (negative); BLOOD/HGB, URINE TRACE-I (Negative); KETONE, URINE NEGATIVE (Negative); LEUK ESTERASE, URINE NEGATIVE (negative); NITRITE, URINE NEGATIVE (negative)
[2024-12-23] MEDS ORDERED: LACTATED RINGER'S 1,000 ML IV SCH ×2 (02:30→11:00)
[2024-12-23] MEDS ORDERED: ondansetron HCL 4 MG/2 ML VIAL IV PRN ×2 (02:30→11:00)
[2024-12-23] MEDS ORDERED: HYDROmorphone HCL 1 MG/ML SYR IV PRN ×3 (02:30→20:45)
[2024-12-23 02:32] LABS: BACTERIA, URINE NONE SEEN /hpf (negative); CASTS, URINE NONE SEEN \\lpf; CRYSTALS, URINE NONE SEEN (0-1+); EPITHELIAL CELLS, URINE SQUAMOUS 2+ /lpf (0-1+)
[2024-12-23 02:33] LABS: COLLECTION TYPE, URINE CLEAN CATCH; REFLEX CULTURE, URINE No (No)
--- NOTE | 2024-12-23 03:15 | NUR ---
PATIENT ARRIVED ALERT AND ORIENTED, SHE REQUESTS WARM BLANKET AND WARM PACK. HER SPOUSE IS RESTING ON COUCH. EDUCATION PROVIDED ABOUT PANCREATITS, NPO FOR NOW.
--- NOTE | 2024-12-23 03:51 | NUR ---
PATIENT UP TO RESTROOM, VOIDED. BACK TO BED. CPOX AT BEDSIDE, IVF INFUSING PER ORDER. TELE #[id number]. NO NEEDS IDENTIFIED, CALL LIGHT IN REACH.
--- NOTE | 2024-12-23 05:45 | NUR ---
PT CALLED, SBA TO BATHROOM, LINE MANAGEMENT. VS AND I/O COMPLETED. CPOX IN PLACE, PRIMARY RN INTO ROOM.
--- NOTE | 2024-12-23 06:08 | NUR ---
PATIENT REQUESTING PRN PAIN MEDICATION FOR 7/10 ABD PAIN. PRN PAIN MEDICATION ADMINISTERED. PATIENT HAS NO FURTHER NEEDS AT THIS TIME. CALL LIGHT IN REACH.
--- NOTE | 2024-12-23 06:47 | NUR ---
pt cbg 134. primary rn notified.
[2024-12-23] MEDS ORDERED: GLUCAGON,HUMAN RECOMBINANT 1 MG/ML VIAL SUB-Q PRN ×2 (07:00→11:00)
[2024-12-23] MEDS ORDERED: DEXTROSE 5% 1,000 ML IV PRN ×2 (07:00→11:00)
[2024-12-23] MEDS ORDERED: IBLOOD GLUCOSE TEST STRIP 1 EA TEST XX PRN ×2 (07:00→11:00)
[2024-12-23] MEDS ORDERED: DEXTROSE 50% 50 ML SYR IV PRN ×4 (07:00→11:00)
--- NOTE | 2024-12-23 07:30 | NUR ---
REPORT RECEIVED FROM COMPENSATION AND BENEFITS ADMINISTRATOR RN. PATIENT RESTING IN BED. IVF INSUING WNL. IV SITE WNL. DENIES ANY NEEDS AT THIS TIME. CALL LIGHT LISSA MACKENZIE.
[2024-12-23 07:53] LABS: CHOLESTEROL/HDL RATIO 4.9
[2024-12-23] MEDS ORDERED: IBLOOD GLUCOSE TEST STRIP 1 EA TEST VI SCH ×3 (08:00→16:35)
--- NOTE | 2024-12-23 08:04 | NUR ---
PATIENT C/O NAUSEA. PRN ADMINSTERED. PATIENT REPORTS FEELING ITCHY AND IS REQUESTING BENADRYL. RN DICSUSSED PATIENT CONCERNS WITH MD. PATIENT REPORTS PAIN IS 5/10 AT THIS TIME. NO FURTHER NEEDS. CALL LIGHT WITHIN REACH.
[2024-12-23] MEDS ORDERED: diphenhydrAMINE HCL 50 MG/ML VIAL IV PRN ×3 (08:15→21:00)
--- NOTE | 2024-12-23 08:45 | NUR ---
In pt room for IV pump alarming. Pt is resting quietly in bed, eyes closed but opens them when I enter. Pt's questions answered. IV fluids complete. New bag of LR scanned and hung, running at ordered rate of 200ml/hr per ER Bridge order. IV site is patent, no redness, swelling or leaking noted, pt has no c/o pain at the site. Encouraged pt to call if she notes any changes. Pt is requesting pain meds. Advised pt I will notify her primary nurse. RN Ronen notified of pt's request.
--- NOTE | 2024-12-23 09:05 | NUR ---
NOTED PATIENT HR TO BE ELEVATED 140'S. NO SUSTAINED. PATIENT REPORTS SHE WAS FEELING ANXIOUS. PATIENT REQUESTING PAIN MEDICATIONS AND REPORTS ITCHING. PRN'S ADMINSTERED. LUNG SOUNDS CTA. HEART SOUNDS REGULAR. BOWEL TONES ACTIVE X 4 QUADRANTRS. ABD SOFT AND TERNDER. PATIENT REPORTS SHE IS " BLOATED." IV SITE PATENT. DENIES ANY FURTHER NEEDS. CALL LIGHT WITHIN REACH.
--- NOTE | 2024-12-23 09:18 | NUR ---
PATIENT IS IN BED RESTING AT THIS TIME, HOUSE MOVER SUPERVISOR CHARTED VITALS AND OUTPUT. CALL LIGHT WITH IN REACH AND NOTHING ELSE NEEDED AT THIS TIME.
--- NOTE | 2024-12-23 10:20 | NUR ---
Spoke with pt. Spouse is in the room. Pt is drowsy. Denies needs. Cont to live in the same home, no new DME. Uses an insulin pump. Has food stamps. Eats most meals at her mom. Plans on dc to home when cleared medically.
--- NOTE | 2024-12-23 10:54 | NUR ---
MD IN ROOM WITH PATIENT AT THIS TIME.
[2024-12-23] MEDS ORDERED: PROCHLORPERAZINE EDISYLATE 10 MG/2 ML VIAL IV PRN (11:00)
[2024-12-23] MEDS ORDERED: PANTOPRAZOLE SODIUM 40 MG/10 ML VIAL IV SCH (11:00)
[2024-12-23] MEDS ORDERED: OMEPRAZOLE20 MG PO (11:22)
[2024-12-23] MEDS ORDERED: HYDROXYZINE PAM25 MG PO (11:23)
[2024-12-23] MEDS ORDERED: ONDANSETRON ODT4 MG PO (11:24)
[2024-12-23] MEDS ORDERED: TYLENOL325 MG PO (11:24)
--- NOTE | 2024-12-23 11:25 | NUR ---
MED REC COMPLETE
--- NOTE | 2024-12-23 11:30 | NUR ---
SCHEDULED MEDICATION AND PRN ADMINSTERED. PATIENT DENIES ANY FURTHER NEEDS. CALL LIGHT WITHIN REACH.
--- NOTE | 2024-12-23 11:30 | NUR ---
PATIENT WAS IN BED AT THIS TIME, SHE HAS BEEN COMPLAINING OF BEING VERY ITCHY AND UNCOFORTABLE. RN RASHAUN WAS NOTIFIED, BLISS PRESS OPERATOR GAVE PATIENT SOME LOTION TO TRY AND HELP WITH THE ITCH UNTIL SHE CAN GET SOMETHING TO HELP.
--- NOTE | 2024-12-23 11:43 | NUR ---
PER CCU RN, VERBALIZED WE COULD DC TELEMETRY. ORDER DISCONTINUED AND PRIMARY RN NOTIFIED.
[2024-12-23] MEDS ORDERED: PHARMACY RENAL DOSE ADJUSTMENT 1 DOSE MISC PO SCH (12:00)
--- NOTE | 2024-12-23 12:34 | NUR ---
PATIENT C/O PAIN 03/24. PRN ADMINSTERED. DENIES ANY FURTHER NEEDS. CALL LIGHT REMAINS WITHIN REACH. IV SITE REMAINS PATENT AND WNL.
--- NOTE | 2024-12-23 12:38 | NUR ---
UR CLINICAL REVIEW: NILESH, MEETS INPT FOR PANCREATITIS. IV FLUIDS, NPO, IV PAIN MEDS DMAP ([place] MEDICA[place]) INPT 12/23/2024 @ 1103 ORDER MATCHES REG NO AUTH FOR MEDICAID REQUIRED DC TO HOME WHEN MEDICALLY STABLE. 12/25/2024
--- NOTE | 2024-12-23 13:15 | NUR ---
PATIENT IS IN BED AT THIS TIME, EXECUTIVE KITCHEN MANAGER CHARTED VITALS AND I&O'S, PATIENT ASKED FOR MEDS AND BLAIRE MEIER NOTIFIED. CALL LIGHT WITH IN REACH AND NOTHING ELSE NEEDED AT THIS TIME.
[2024-12-23] MEDS ORDERED: FLUCONAZOLE 150 MG TAB PO ONE (13:45)
--- NOTE | 2024-12-23 13:51 | NUR ---
PHONE CALL PLACED TO MD SIMMONS. DISCUSSED PATIENT CONCERNS FOR VAGINAL ITCHING AND PATIENT WANTING TO ADVANCE DIET.
--- NOTE | 2024-12-23 13:52 | NUR ---
PT RESTING IN BED, FAMILY PRESENT IN ROOM IN RECLINER ON COMPUTER. PT STATES PAIN IMPROVED 3/10 AT THIS TIME, SHE IS WORKING ON SOME [employer] AT THIS TIME. IV PUMP ALARMING, NEW BAG OF FLUIDS STARTED. NO OTHER NEEDS AT THIS TIME, CALL LIGHT WITHIN REACH.
[2024-12-23] MEDS ORDERED: Insulin Regular, Human 100 UNIT/ML ML SUB-Q SCH ×2 (14:00→16:34)
--- NOTE | 2024-12-23 14:31 | NUR ---
SCHEDULED MEDICATION ADMINSTERED. BURRING MACHINE OPERATOR STAFF WITH PATIENT ASSISTING WITH A SHOWER AT THIS TIME.
--- NOTE | 2024-12-23 14:52 | NUR ---
PATIENT WANTED TO TAKE A SHOWER, CUSTOMER RESOLUTION SPECIALIST ASSISTED IN SETTING EVERYTHING UP, GETTING SUPPLIES, CHANGING BEDDING AND CLEANED UP AFTER HER SHOWER. CALL LIGHT WITH IN REACH AND NOTHING ELSE NEEDED AT THIS TIME.
--- NOTE | 2024-12-23 15:14 | NUR ---
PATIENT'S IV DRESSING TO RIGHT FOREARM BECOMES DAMP AFTER SHOWER, PATIENT IS REQUESTING A DRESSING CHANGE - PROVIDED. IV FLUSHES WNL, SALINE LOCKED AT THIS TIME. PATIENT'S PRIMARY NURSE NOTIFIED.
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
--- NOTE | 2024-12-23 16:00 | NUR ---
PATIENT RESTING IN BED. DENIES ANY NEEDS. CALL LIGHT WITHIN REACH.
--- NOTE | 2024-12-23 17:36 | NUR ---
PATIENT WANTED A HEAT PACK, WARM BLANKET AND HER MEDICATION. RN NOTIFIED. CALLL LIGHT WITH IN REACH AND NOTHING ELSE NEEDED AT THIS TIME.
--- NOTE | 2024-12-23 18:28 | NUR ---
patient was in bed at this time resting, power electronics engineer charted i&o's, call light with in reach and nothing else needed at this time.
--- NOTE | 2024-12-23 19:56 | NUR ---
RECEIVED REPORT. PT RESTING IN BED WITH SUPPORT PERSON IN ROOM. REPORTS PAIN OF R ABDOMEN AND ITCHING THROUGHOUT, ASKS WHEN SHE CAN NEXT HAVE BENADRYL. GIVEN DIET SHIRA AT REQUEST. CALL LIGHT IN REACH
--- NOTE | 2024-12-23 20:27 | NUR ---
RECEIVED REPORT. PT REQUESTS INSULIN FROM LOCKBOX FOR BLOOD GLUCOSE OF 250. GIVEN 3.5 UNITS. PT ALSO REQUESTS ADDITIONAL 25MG OF BENADRYL FOR ITCHING AFTER DOSE OF DILAUDID. REPORTS ABDOMINAL PAIN IMPROVED FROM DILAUDID, BUT STILL EXPERIENCING 5/10 ABD PAIN. SUPPORT PERSON IN ROOM WITH PT. CALL LIGHT IN [facility]
--- NOTE | 2024-12-23 20:46 | NUR ---
CALL WITH , NOTIFIED ABOUT REQUESTS FOR INCREASED PAIN MEDICATION AND BENADRYL. SEE NEW ORDERS.
[2024-12-23] MEDS ORDERED: MELATONIN 3 MG TAB PO PRN (21:00)
--- NOTE | 2024-12-23 22:10 | NUR ---
VITALS, ASSESSMENT, EVENING MEDS. PT BLOOD SUGAR 238, GIVEN 7 UNITS HUMALIN. PT'S PERSONAL PUMP IS DISCONNECTED. GIVEN PRN DILAUDID AND BENADRYL. ALSO PROVIDED WARM BLANKETS, HEAT PACK, AND ICE CHIPS. SUPPORT PERSON AT BEDSIDE, CALL LIGHT IN REACH
[2024-12-24] VITALS (9 sets, daily range): BP systolic 122–165; BP diastolic 83–102
--- NOTE | 2024-12-24 00:18 | NUR ---
PT RESTING IN BED, RISE AND FALL OF CHEST OBSERVED. CALL LIGHT IN REACH
--- NOTE | 2024-12-24 01:56 | NUR ---
POWER TECHNICIAN OBTAINED VITALS. PT STATES NO NEEDS AT THIS TIME. CALL LIGHT WITHIN REACH.
--- NOTE | 2024-12-24 02:34 | NUR ---
PT RESTING IN BED WITH EYES CLOSED, RISE AND FALL OF CHEST SEEN. CALL LOC MACKENZIE
--- NOTE | 2024-12-24 03:07 | NUR ---
GIVEN PRN DILAUDID AND BENADRYL AT PT REQUEST. ALSO PROVIDED WARM BLANKETS. CALL LOC MACKENZIE
--- NOTE | 2024-12-24 04:46 | NUR ---
PT REQUESTING PAIN MEDICATIONS, UNABLE TO GIVE DILAUDID OR BENADRYL MOST RECENT DOSE AT 0300. OFFERED HEAT PACK FOR ABDOMEN. VITALS. NO OTHER NEEDS, CALL LIGHT IN REACH
[2024-12-24 05:19] LABS: BASOPHILS 0.6 % (0-2); EOSINOPHILS 2.9 % (0-6); HEMATOCRIT 25.6 % (35.0-50.0); HEMOGLOBIN 8.4 g/dL (12.0-18.0); LYMPHOCYTES 29.6 % (24-44); MCHC 32.6 g/dl (30-36); NEUTROPHILS 58.9 % (39-80); PLATELET COUNT 357 K/uL (140-440); RBC 2.98 M/ul (4.3-5.7); RDW 16.8 (10.5-15.0)
[2024-12-24 05:36] LABS: ALBUMIN/GLOBULIN RATIO 0.83 (1.1-2.4); ANION GAP 14.3 (7-21); BILIRUBIN, TOTAL 0.2 mg/dL (0.2-1.0); BUN/CREATININE RATIO 4.8 (6.0-28.6); CALCIUM 8.3 mg/dL (8.5-10.1); CREATININE, SERUM 2.08 mg/dL (0.55-1.02); MAGNESIUM 1.5 mg/dL (1.8-2.4); POTASSIUM 4.3 mmol/L (3.5-5.1); PROTEIN, TOTAL 6.6 g/dL (6.4-8.2)
--- NOTE | 2024-12-24 06:00 | NUR ---
GIVEN PRN DILAUDID PER REQUEST. BENADRYL NOT YET AVAILABLE. ALSO GIVEN DIET SHIRA. NO OTHER NEEDS AT THIS TIME, CALL LIGHT IN REACH
--- NOTE | 2024-12-24 07:40 | NUR ---
REPORT RECEIVED FROM TERMINAL SYSTEM OPERATOR RN. PATIENT REPORTS SHE CONTINUES TO HAVE VAGINAL ITCHING AND WHITE DISCHARGE. EXAM PERFORMED. MD NOTIFIED OF PATIENT REDNESS AND WHITE VAGINAL DISCHARGE.
[2024-12-24] MEDS ORDERED: Insulin Regular, Human 100 UNIT/ML ML SUB-Q SCH (08:00)
[2024-12-24] MEDS ORDERED: IBLOOD GLUCOSE TEST STRIP 1 EA TEST VI SCH (08:00)
[2024-12-24] MEDS ORDERED: ENOXAPARIN SODIUM 30 MG/0.3 ML SYR SUB-Q SCH (09:00)
[2024-12-24] MEDS ORDERED: MAGNESIUM SULFATE 2 GM/50 ML BAG IV SCH (09:00)
--- NOTE | 2024-12-24 09:30 | NUR ---
IN FOR PATIENT ASSESSMENT. PATIENT REPORTS PAIN 7/10 TO RUQ. PATIENT INSISTS THAT PAIN IS NOT FROM DIET BEING ADVANCED TO LIQUIDS. DENIES ANY NAUSEA OR VOMITING. PATIENT AMBULATED TO BATHROOM WITH NO ISSUES OR CNCERNS. IV SITE PATENT. LUNGS CTA, HEART SOUNDS REGULAR. BOWEL TONES ACTIVE. NOTED ABD DISTENSION, TENDER TO TOUCH IN UPPER RIGHT QUADRANT. SKIN INTACT. PATIENT DENIES ANY FURTHER NEEDS AT THIS TIME. CALL LIGHT WITHIN REACH.
--- NOTE | 2024-12-24 09:39 | NUR ---
PT DECLINED SPIRITUAL CARE SERVICES. PROVIDED PRAYER.
--- NOTE | 2024-12-24 10:20 | NUR ---
PATIENT UP TO BATHROOM. BACK INTO BED. DENIES ANY FURTHER NEEDS. CALL LIGHT WITHIN REACH.
--- NOTE | 2024-12-24 11:00 | NUR ---
Patient admitted from ED to MS. Full body assessment done, wnl. Sp02 100% on room air, breathing even and regular. IV site wnl, patent to RFA , LR running at 200mL/hr continious. VS completed,Pt HR 111, tachy, hospitialist aware who verbalized close to baseline . Morning medications administered. Pt stated 7/10 pain, verbalizes pain is sharp and constant. Pain medications administered, see EMAR. Full body assessment , noted hypoactive bowel sounds in RLQ and RUQ. Pt resting in bed with spouse at the bedside. Call light within reach. Pt states no further needs at this time.
[2024-12-24] MEDS ORDERED: NYSTATIN CREAM 30 GM TUBE TOP ONE (11:15)
--- NOTE | 2024-12-24 11:48 | NUR ---
PATIENT RESTING IN BED WITH HUISBAND AT BEDSIDE. BLOOD SUAGR OBTAINED.
--- NOTE | 2024-12-24 12:10 | NUR ---
PATIENT'S SCHEDULED MEDICATIONS ADMINSTERED. C/O PAIN 01/22 REQUESTING PRN. PRN ADMINSTERED. NO FURTHER NEEDS. LUNCH AT BEDSIDE. CALL LIGHT WITHIN REACH.
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
--- NOTE | 2024-12-24 14:35 | NUR ---
[place] [employer] IN WITH PATIENT AND HER MOM AT THIS TIME.
[2024-12-24] MEDS ORDERED: hydrOXYzine pamoate 25 MG CAP PO PRN (15:45)
[2024-12-24] MEDS ORDERED: HYDROCODONE/ACETA 5/325 TAB PO PRN (15:45)
--- NOTE | 2024-12-24 15:49 | NUR ---
PATIENT IS RESTING IN BED WITH MOM AT BEDSIDE. DENIES ANY NEEDS AT THIS TIME. CALL LIGHT WITHIN REACH.
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
--- NOTE | 2024-12-24 17:04 | NUR ---
DINNER INSULIN ADMINSTERED. PATIENT SET UP WITH DINNER. NO FURTHER NEEDS. IVF INFUSING WNL. NO FURTHER NEEDS. CALL LIGHT WITHIN REACH.
--- NOTE | 2024-12-24 18:12 | NUR ---
PATIENT IN BED AT THIS TIME. PROJECTOR OPERATOR CHARTED VITALS AND I&O'S. CALL LIGHT WITHIN REACH, PATIENT WANTED TO LET RN KNOW THAT SHE WANTED MEDICATION FOR ITCHING, RN RASHAUN NOTIFIED.
--- NOTE | 2024-12-24 18:20 | NUR ---
PT REQUESTING BENADRYL AT THIS TIME. PRN MEDS GIVEN - SEE MAR. PATIENT AMBULATES TO THE BATHROOM TO VOID, IV FLUIDS REMAIN INFUSING AT THIS TIME. BACK TO BED, DENIES ANY FURTHER NEEDS AT THIS TIME. ALL PT CARE NEEDS MET. CALL LIGHT WITHIN REACH. FAMILY REMAINS AT BEDSIDE VISITING WITH PATIENT.
--- NOTE | 2024-12-24 20:49 | NUR ---
CORRECTIVE THERAPIST OBTAINED VITALS AND I&O. PT REQUESTING BENADRYL AND STATES THAT SHE FEELS ITCHY. PT STATES NO FURTHER NEEDS AND RN NOTIFED. CALL LIGHT WITHIN REACH.
[2024-12-24] MEDS ORDERED: busPIRone HCL 15 MG TAB PO SCH (21:00)
[2024-12-24] MEDS ORDERED: GABAPENTIN 100 MG CAP PO SCH (21:00)
[2024-12-24] MEDS ORDERED: NYSTATIN CREAM 30 GM TUBE TOP SCH (21:00)
[2024-12-24] MEDS ORDERED: OXYCODONE HCL 5 MG TAB PO PRN (22:00)
--- NOTE | 2024-12-24 22:20 | NUR ---
in bed, up to brp, voided, back to bed, tolerated well, c/o itchiness. Medicated with Benadryl 25mg IV. IVf infusing RFA w/o problems. on room air, lungs clear bilat, abd soft, alex. no edema. Cooperative, VBG 217 received 3 units SSI, tolerating liquids well.
--- NOTE | 2024-12-24 23:09 | NUR ---
C/O ITCHING AND ABD PAIN, MEDICATED WITH 2 NORCO. GOT MEDICATED WITH 2 NORCO TABS, RECEIVED BENADRYL EARLIER
--- NOTE | 2024-12-25 00:49 | NUR ---
c/o itching and increased anxiety. Medicated with [id number] po. reassured. sitting up in bed. IVf infusing w/o problems. Up to BRp w/o assist. voided, back to bed, tolerated well
--- NOTE | 2024-12-25 03:07 | NUR ---
C/O GENERALIZED ITCHING, MEDICATED WITH bENADRYL 25MG iv
[2024-12-25 05:28] LABS: BASOPHILS 0.8 % (0-2); EOSINOPHILS 3.8 % (0-6); HEMATOCRIT 24.8 % (35.0-50.0); HEMOGLOBIN 8.1 g/dL (12.0-18.0); MCH 27.8 (27-36); MCHC 32.6 g/dl (30-36); MCV 85.2 fl (81-99); MONOCYTES 8.6 % (0-12); NEUTROPHILS 55.8 % (39-80); PLATELET COUNT 391 K/uL (140-440); RBC 2.91 M/ul (4.3-5.7)
[2024-12-25 05:48] LABS: ALBUMIN/GLOBULIN RATIO 0.83 (1.1-2.4); ANION GAP 12.2 (7-21); BILIRUBIN, TOTAL 0.2 mg/dL (0.2-1.0); BUN/CREATININE RATIO 4.29 (6.0-28.6); CALCIUM 8.1 mg/dL (8.5-10.1); CREATININE, SERUM 2.33 mg/dL (0.55-1.02); POTASSIUM 5.2 mmol/L (3.5-5.1); PROTEIN, TOTAL 6.6 g/dL (6.4-8.2)
[2024-12-25 06:02] VITALS: BP 120/81
--- NOTE | 2024-12-25 06:03 | NUR ---
SUPPLY SPECIALIST OBTAINED VITALS AND I&O. PT STATES NO NEEDS AT THIS TIME. CALL LIGHT WITHIN REACH.
--- NOTE | 2024-12-25 06:33 | NUR ---
Resting, eyes closed, no s/sx distress. repositions self in bed, IVF infusing w/o problems, no further c/o pain , itching or anxiety. Has eaten food brought from home by mother. Respositions self in bed, up to BRp several times. tolerating liquids well
--- NOTE | 2024-12-25 06:43 | NUR ---
DR SIMMONS NOTIFIED OF K 5.2, NO NEW ORDERS
--- NOTE | 2024-12-25 07:05 | NUR ---
REPORT REC'D FROM BLAIRE SIMENTAL. PT RESTING COMFORTABLY IN BED. REQUESTING BENADRYL FOR ITCHING. PT QUICKLY FELL BACK TO SLEEP.
--- NOTE | 2024-12-25 08:08 | NUR ---
PATIENT IN BED AT THIS TIME. THIS COMMODITY SPECIALIST CHARTED PATIENTS BLOOD SUGAR AND DID HOURLY ROUNDS ON PATIENT. PATIENT ALSO ASKED FOR BENEDRYL FOR ITCHING, RN ANSELMO NOTIFIED. CALL LIGHT WITHIN REACH, NO FURTHER NEEDS AT THIS TIME.
--- NOTE | 2024-12-25 08:09 | NUR ---
PT CONTINUES SLEEPING AT THIS TIME. BREAKFAST TRAY DELIVERED. IV INFUSING AT 125/HR TO R FA. CALL TORRES IN REACH. RN TO PROVIDE MEDICATIONS WHEN PATIENT AWAKE.
--- NOTE | 2024-12-25 09:29 | NUR ---
22G R FA IV INFUSING LR @ 125/HR WNL.
[2024-12-25 09:37] VITALS: BP 139/89
--- NOTE | 2024-12-25 09:38 | NUR ---
PATIENT IN BED AT THIS TIME. THIS UTILITY PIPE LAYER CHARTED VITALS AND I&O'S. CALL LIGHT WITHIN REACH, NO FURTHER NEEDS AT THIS TIME.
[2024-12-25 10:50] VITALS: BP 139/89
--- NOTE | 2024-12-25 10:50 | NUR ---
PT RESTING IN BED, FAMILY AT BEDSIDE. NO C/O VOICE AT THIS TIME.
[2024-12-25] MEDS ORDERED: HYDROCODON-ACE1 EA10 PO (11:26)
--- NOTE | 2024-12-25 11:33 | NUR ---
PT SITTING ON SIDE OF BED, VISITING WITH FAMILY, AWAITING DICHARGE. PT DENIES AND C/O AT THIS TIME.
[2024-12-25 11:42] VITALS: BP 136/99
== END 2024-12-25 12:02 | disposition home or self-care (01) | DRG 439 ==
LOC: ED 00:44 → MS 00:45
PROVIDERS: Internal Medicine; ADMIT Family Medicine; ATTEND Family Medicine
DX: K85.80 Other acute pancreatitis without necrosis or infection (principal); B37.89 Other sites of candidiasis; K86.1 Other chronic pancreatitis; I12.9 Hypertensive chronic kidney disease with stage 1 through stage 4 chronic kidney disease, or unspecified chronic kidney disease; N18.9 Chronic kidney disease, unspecified; R74.01 Elevation of levels of liver transaminase levels; F39 Unspecified mood [affective] disorder; E10.22 Type 1 diabetes mellitus with diabetic chronic kidney disease; K21.9 Gastro-esophageal reflux disease without esophagitis; E78.5 Hyperlipidemia, unspecified; Z88.1 Allergy status to other antibiotic agents; Z88.2 Allergy status to sulfonamides; Z88.8 Allergy status to other drugs, medicaments and biological substances; D63.1 Anemia in chronic kidney disease; H91.93 Unspecified hearing loss, bilateral; Z98.890 Other specified postprocedural states; Z90.49 Acquired absence of other specified parts of digestive tract; Z88.5 Allergy status to narcotic agent; Z79.4 Long term (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; Z79.899 Other long term (current) 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
CPT/HCPCS: 36415; 80053; 80061; 81001; 83690; 83735; 84100; 85025; G0378; J1171; J1200; J1650; J1815; J2405; J2470; J3475; J7121; Q0177

== ENCOUNTER 2025-02-24 01:16 | Inpatient (IN) | payer OTHER ==
[2025-02-24] VITALS (10 sets, daily range): BP systolic 114–140; BP diastolic 70–89
[~2025-02-24] VITALS: Ht 149.9 cm; Wt 42.5 kg
[2025-02-24 01:35] LABS: BILIRUBIN, URINE NEGATIVE (negative); BLOOD/HGB, URINE TRACE-I (Negative); KETONE, URINE NEGATIVE (Negative); LEUK ESTERASE, URINE TRACE (negative); NITRITE, URINE NEGATIVE (negative)
[2025-02-24 01:40] LABS: EPITHELIAL CELLS, URINE SQUAMOUS 3+ /lpf (0-1+)
[2025-02-24 01:41] LABS: BACTERIA, URINE RARE /hpf (negative); CASTS, URINE NONE SEEN \\lpf; COLLECTION TYPE, URINE CLEAN CATCH; CRYSTALS, URINE NONE SEEN (0-1+); RED BLOOD CELLS, URINE 0-1 /hpf (0-5); REFLEX CULTURE, URINE No (No)
[2025-02-24] MEDS ORDERED: ondansetron HCL 4 MG/2 ML VIAL IV ONE (01:45)
[2025-02-24] MEDS ORDERED: SODIUM CHLORIDE 0.9% 1,000 ML IV SCH (01:45)
[2025-02-24 02:10] LABS: BASOPHILS 0.5 % (0.1-1.2); EOSINOPHILS 1.5 % (0.7-5.8); HEMATOCRIT 32.4 % (34.1-44.9); LYMPHOCYTES 27.6 % (19.3-51.7); MCH 28.3 PG (25.6-32.2); MCHC 30.9 g/dL (32.2-35.5); MCV 91.8 fL (79.4-94.8); MONOCYTES 7.4 % (4.7-12.5); NEUTROPHILS 62.4 % (34.0-71.1); PLATELET COUNT 332 K/uL (182-369); RBC 3.53 M/uL (3.93-5.22)
[2025-02-24 02:28] LABS: ALBUMIN 3.3 g/dL (3.4-5.0); ALBUMIN/GLOBULIN RATIO 0.72 (1.1-2.4); ANION GAP 18.4 (7-21); BILIRUBIN, TOTAL 0.3 mg/dL (0.2-1.0); BUN/CREATININE RATIO 12.07 (6.0-28.6); CREATININE, SERUM 2.65 mg/dL (0.55-1.02); MAGNESIUM 1.9 mg/dL (1.8-2.4); POTASSIUM 4.4 mmol/L (3.5-5.1); PROTEIN, TOTAL 7.9 g/dL (6.4-8.2)
[2025-02-24 02:29] LABS: CALCIUM 5.9 mg/dL (8.5-10.1)
[2025-02-24 02:30] LABS: INR 1.03 (0.80-1.30); PROTIME 13.1 Sec (11.2-14.2)
[2025-02-24] MEDS ORDERED: HYDROmorphone HCL 1 MG/ML SYR IV PRN ×2 (03:15→05:15)
[2025-02-24] MEDS ORDERED: Calcium Gluconate in NS 1,000 MG/50 ML BAG IV ONE (03:30)
--- NOTE | 2025-02-24 04:20 | NUR ---
pt ARRIVED TO THE FLOOR VIA STRETCHER. pt WALKED TO THE BED. ASSESSMENT AND VITAL SIGNS DONE. pt DENIES ANY OTHER NEEDS AT THIS TIME. CALL LIGHT WITHIN REACH. IV CALCIUM INFUSING PER ORDER.
--- NOTE | 2025-02-24 05:36 | NUR ---
pt C/O 04/24 PAIN. PRN PAIN MEDS ADMINISTERED. pt UP TO THE BR. INDEPENDENT IN THE RM. pt DENIES ANY OTHER NEEDS AT THIS TIME. CALL LIGHT WITHIN REACH.
--- NOTE | 2025-02-24 07:25 | NUR ---
RECIEVED REPORT FROM BLAIRE HARRIS. PT LYING IN BED AWAKE. CALL LIGHT WITHIN REACH.
[2025-02-24] MEDS ORDERED: ondansetron HCL 4 MG/2 ML VIAL IV PRN ×2 (07:45→09:45)
--- NOTE | 2025-02-24 07:45 | NUR ---
THIS RN WENT IN TO TALK TO PT REGARDING INSULIN PUMP SETTINGS AND CGM. PT SHOWED THIS RN THAT HER CGM READING WAS 271 AND BOLUSED HERSELF WITH HER INSULIN PUMP.
[2025-02-24] MEDS ORDERED: MAGNESIUM SULFATE 2 GM/50 ML BAG IV ONE (08:15)
--- NOTE | 2025-02-24 08:26 | NUR ---
PATIENT IN BED AT THIS TIME. THIS CALCULATION REVIEWER GAVE PATIENT WARM WASHCLOTH. PATIENT WAS REQUESTING PAIN MEDS, BLAIRE FOLEY NOTIFIED. CALL LIGHT WITHIN REACH, NO FURTHER NEEDS AT THIS TIME.
--- NOTE | 2025-02-24 08:50 | NUR ---
DR LOPES NOTIFIED OF PT INSULIN PUMP SETTINGS/USE, PLUS CGM USE.
[2025-02-24] MEDS ORDERED: CHOLECALCIFEROL 1,000 UNIT TAB PO SCH (09:00)
--- NOTE | 2025-02-24 09:44 | NUR ---
PATIENT IN BED AT THIS TIME. PHOTORADIO OPERATOR CHARTED VITALS AND I&O'S. CALL LIGHT WITHIN REACH, NO FURTHER NEEDS AT THIS TIME.
[2025-02-24] MEDS ORDERED: HYDROCODONE/ACETA 7.5/325 TAB PO PRN (09:45)
[2025-02-24] MEDS ORDERED: LACTATED RINGER'S 1,000 ML IV SCH (09:45)
[2025-02-24] MEDS ORDERED: GLUCAGON,HUMAN RECOMBINANT 1 MG/ML VIAL SUB-Q PRN ×2 (09:45→18:00)
[2025-02-24] MEDS ORDERED: DEXTROSE 5% 1,000 ML IV PRN ×2 (09:45→18:00)
[2025-02-24] MEDS ORDERED: hydrOXYzine pamoate 25 MG CAP PO PRN (10:00)
[2025-02-24] MEDS ORDERED: diphenhydrAMINE HCL 25 MG CAP PO PRN (10:00)
[2025-02-24] MEDS ORDERED: SUCRALFATE 1 GM TAB PO PRN (10:00)
--- NOTE | 2025-02-24 10:14 | NUR ---
PT NOT AVAILABLE FOR VISIT. PROVIDED PRAYER.
--- NOTE | 2025-02-24 10:20 | NUR ---
UR CLINICAL REVIEW: NILESH, MEETS INPT WITH GENERAL ADMISSION GRG CALCIUM 5.8 AFTER OBS PERIOD, IV FLUIDS CONTINUED MONITORING, EVALUATION AND TREATMENT NEEDED BASIC DMAP ([facility] MEDICAID) INPT 02/24/2025 @ 0940 ORDER MATCHES REG NO AUTH PER MEDICAID RULES PLAN TO DC TO HOME WHEN MEDICALLY STABLE 02/26/25
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
[2025-02-24] MEDS ORDERED: HYDROCODON-ACE1 EA10 PO (11:49)
--- NOTE | 2025-02-24 11:50 | NUR ---
PT SITTING UP IN BED, STATES PAIN IS NOW 6/10 AFTER PRN PAIN MEDICATION. PT STATES NO CURRENT NEEDS, CALL LIGHT WITHIN REACH.
[2025-02-24] MEDS ORDERED: TOPROL XL25 MG PO (11:58)
[2025-02-24] MEDS ORDERED: INSULIN LI100 UNIT/2 SUB-Q (11:59)
[2025-02-24] MEDS ORDERED: LANTUS SOL100 UNIT/1 SUB-Q (11:59)
[2025-02-24] MEDS ORDERED: PHARMACY RENAL DOSE ADJUSTMENT 1 DOSE MISC PO SCH (12:00)
[2025-02-24] MEDS ORDERED: IMITREX25 MG PO (12:01)
--- NOTE | 2025-02-24 12:01 | NUR ---
MED REC COMPLETE
--- NOTE | 2025-02-24 12:26 | NUR ---
AT 10:15AM I PUT ON PATIENTS TELE PER RN CLAIRES REQUEST
--- NOTE | 2025-02-24 12:51 | NUR ---
PT USES CALL LIGHT TO REQUEST MEDICATION FOR ANXIETY. THIS RN CALLS DR. MARIANNE MD STATES TO CHANGE BUSPAR ORDER TO START NOW RATHER THAN AT 2100 FOR BID AND TO CHANGE VISTIRIL ORDER TO BE FOR ITCHING OR ANXIETY. ORDERS ENTERED, REPEAT BACK PERFORMED.
[2025-02-24] MEDS ORDERED: busPIRone HCL 15 MG TAB PO SCH ×2 (13:00→21:00)
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
--- NOTE | 2025-02-24 13:10 | NUR ---
PT REFUSES BUSPAR STATING THAT SHE HAS STOPPED TAKING THIS AT HOME D/T "HAVING SOME KIND OF REACTION". VISTIRIL GIVEN PT C/O ANXIETY AND STATES "THE ITCHING IS COMING BACK TOO". PT STATES NO FURTHER NEEDS AT THIS TIME, CALL LIGHT WITHIN REACH.
[2025-02-24 13:16] LABS: ANION GAP 15.6 (7-21); BUN/CREATININE RATIO 11.76 (6.0-28.6); CREATININE, SERUM 2.38 mg/dL (0.55-1.02); MAGNESIUM 2.7 mg/dL (1.8-2.4); PHOSPHORUS, INORGANIC 3.5 mg/dL (2.5-4.9); POTASSIUM 4.6 mmol/L (3.5-5.1)
[2025-02-24 13:17] LABS: CALCIUM 6.2 mg/dL (8.5-10.1)
--- NOTE | 2025-02-24 13:23 | NUR ---
PATIENT IN BED AT THIS TIME. BLUE PRINT CONTROL CLERK CHARTED VITALS AND I&O'S. PATIENT STATED THAT SHE WAS ITCHY AND WANTED SOMETHING TO HELP ITCHING, RN OG NOTIFIED. THIS BLUE PRINT CONTROL CLERK OFFERED SHOWER TO PATIENT, PATIENT REFUSED AND SAID "I DO NOT WANT A SHOWER TODAY, I HAD ONE YESTERDAY." CALL LIGHT WITHIN REACH, NO FURTHER NEEDS AT THIS TIME.
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
--- NOTE | 2025-02-24 16:47 | NUR ---
PT REQUESTS HEAT PACK AND SNACKS, GIVEN. PT STATES NO FURTHER NEEDS AT THIS TIME, CALL LIGHT WITHIN REACH.
[2025-02-24] MEDS ORDERED: IBLOOD GLUCOSE TEST STRIP 1 EA TEST XX PRN (18:00)
[2025-02-24] MEDS ORDERED: DEXTROSE 50% 50 ML SYR IV PRN ×2 (18:00)
--- NOTE | 2025-02-24 18:01 | NUR ---
DR LOPES CALLED REQUESTED REGARDING BLOOD GLUCOSE MONITORING/RESULTS. DR LOPES STATED WILL PLACE ORDERS.
--- NOTE | 2025-02-24 18:26 | NUR ---
PT EDUCATION ON USING HOSPITAL GLUCOMETER AND SS INSULIN PER ORDER WHILE IN HOSPITAL PER NEW MD ORDERS. PT REMOVES OWN INSULIN PUMP DEVICE AND TURNS OFF PER MD ORDER WHILE PT IS INPATIENT. PT STATES NO QUESTIONS/NEEDS AT THIS TIME. MOTHER AT THE BEDSIDE. CALL LIGHT WITHIN REACH.
--- NOTE | 2025-02-24 19:10 | NUR ---
REPORT RECEIVED FROM ANTONIA RUDD. pt RESTING IN THE BED. BOARD UPDATED. pt DENIES ANY NEEDS AT THIS TIME. CALL LIGHT WITHIN REACH.
--- NOTE | 2025-02-24 20:20 | NUR ---
ASSESSMENT AND VITAL SIGNS DONE. SCHEDULED AND PRN MEDS ADMINSITERED. BG CHECKED WITH A RESULTS OF 270. SS INSULIN ADMINISTERED. WARM BLANKET PROVIDED. pt DENIES ANY OTHER NEEDS AT THIS TIME. CALL LIGHT WITHIN REACH.
[2025-02-24] MEDS ORDERED: MELATONIN 3 MG TAB PO PRN (21:00)
[2025-02-24] MEDS ORDERED: IBLOOD GLUCOSE TEST STRIP 1 EA TEST VI SCH (21:00)
[2025-02-24] MEDS ORDERED: INSULIN LISPRO 100 UNIT/ML ML SUB-Q SCH (21:00)
--- NOTE | 2025-02-24 22:38 | NUR ---
pt RESTING IN THE BED WITH EYES CLOSED. RR EVEN AND UNLABORED. CALL LIGHT WITHIN REACH.
[2025-02-25] VITALS (12 sets, daily range): BP systolic 109–141; BP diastolic 77–88
--- NOTE | 2025-02-25 00:17 | NUR ---
pt RESTING IN THE BED WITH EYES CLOSED. RR EVEN AND UNLABORED. CALL LIGHT WITHIN REACH.
--- NOTE | 2025-02-25 01:31 | NUR ---
pt C/O 05/25 PAIN. PRN PAIN MEDS ADMINISTERED. pt DENIES ANY OTHER NEEDS AT THIS TIME. CALL LIGHT WITHIN REACH.
--- NOTE | 2025-02-25 02:19 | NUR ---
CALL LIGHT ANSWERED. PATIENT REPORTING ANXIETY. PRN ANXIETY MEDICATION ADMINISTERED. PATIENT DENIES FURTHER NEEDS. CALL LIGHT IN REACH.
--- NOTE | 2025-02-25 04:45 | NUR ---
CALL LIGHT ANSWERED, PATIENT STATES THAT HER "BLOOD SUGAR IS SPIKING AND SHE NEEDS TO HAVE HER INSULIN PUMP ON AT ALL TIMES". PATIENT EDUCATED ON PURPOSE OF NOT HAVING INSULIN PUMP ON AT THIS TIME, INFORMED PATIENT THAT THIS RN WILL INFORM PRIMARY RN OF PATIENT CONCERNS. PATIENT REPORTS THAT HER BLOOD SUGAR WAS 276 BASED ON HER OWN MONITOR. PRIMARY RN INFORMED OF PATIENT CONCERNS AND PATIENT PERSONAL BLOOD SUGAR READING.
--- NOTE | 2025-02-25 04:50 | NUR ---
THIS RN WENT IN THE TO CHECK BG LEVEL WITH A RESULTS OF 291. THIS RN NOTICED THAT THE pt HAD PUT HER OWN INSULIN PUMP ON. THIS RN INSTRUCTED pt TO TAKE THE PUMP OFF AND EDUCATED pt ON WHY WE WANT THE PUMP TO STAY OFF AT THIS TIME. PUMP PLACED IN THE LOCK BOX AT THIS TIME. pt STATED SHE WOULDN'T TOUCH AND WANTED IT AT HER BED SIDE. THIS RN STATED THAT IT WILL BE SAFELY IN THE LOCK BOX.
[2025-02-25 05:08] LABS: BASOPHILS 0.5 % (0.1-1.2); EOSINOPHILS 2.1 % (0.7-5.8); HEMATOCRIT 25.6 % (34.1-44.9); LYMPHOCYTES 23.3 % (19.3-51.7); MCH 28.5 PG (25.6-32.2); MCHC 31.3 g/dL (32.2-35.5); MCV 91.1 fL (79.4-94.8); MONOCYTES 8.5 % (4.7-12.5); NEUTROPHILS 65.1 % (34.0-71.1); PLATELET COUNT 278 K/uL (182-369); RBC 2.81 M/uL (3.93-5.22)
--- NOTE | 2025-02-25 05:22 | NUR ---
PHONE CALL PLACED TO MD ABOUT pt OWN INSULIN PUMP. NO NEW ORDERS GIVEN AND MD STATED NOT HAVE HER OWN INSULIN PUMP.
[2025-02-25 05:23] LABS: ALBUMIN 2.5 g/dL (3.4-5.0); ALBUMIN/GLOBULIN RATIO 0.64 (1.1-2.4); ANION GAP 14.4 (7-21); BILIRUBIN, TOTAL 0.2 mg/dL (0.2-1.0); BUN/CREATININE RATIO 11.66 (6.0-28.6); CREATININE, SERUM 2.4 mg/dL (0.55-1.02); MAGNESIUM 2.1 mg/dL (1.8-2.4); PHOSPHORUS, INORGANIC 4.6 mg/dL (2.5-4.9); POTASSIUM 5.4 mmol/L (3.5-5.1); PROTEIN, TOTAL 6.4 g/dL (6.4-8.2)
[2025-02-25 05:24] LABS: CALCIUM 5.7 mg/dL (8.5-10.1)
--- NOTE | 2025-02-25 06:29 | NUR ---
PHONE CALL PLACED TO MD. pt REQUESTING PERSONAL INSULIN PUMP FOR BG OF 334. THIS RN REMINDED pt THAT THE MD DOES NOT HER TO HAVE HER PUMP AT THIS MOMENT. NEW ORDERS RECEIVED AND VERIFIED WITH REPEAT BACK METHOD.
[2025-02-25] MEDS ORDERED: INSULIN GLARGINE-YFGN 100 UNIT/ML ML SUB-Q SCH (06:30)
--- NOTE | 2025-02-25 07:12 | NUR ---
REPORT RECEIVED FROM BLAIRE HARRIS. PATIENT IS REQUESTING MEDICATION FOR ITCHING. IVF INFUSING WNL. CALL LIGHT AND PERSONAL BELONGINGS IN REACH.
[2025-02-25] MEDS ORDERED: CALCIUM CARBONATE 500 MG CHEW PO SCH (08:00)
[2025-02-25] MEDS ORDERED: FUROSEMIDE 20 MG TAB PO ONE (08:00)
[2025-02-25] MEDS ORDERED: FERROUS SULFATE 325 MG TAB PO SCH (08:00)
[2025-02-25] MEDS ORDERED: LORazepam 2 MG/ML VIAL IV PRN (08:15)
[2025-02-25] MEDS ORDERED: CEFTRIAXONE SODIUM 2 GM in SODIUM CHLORIDE 0.9% 100 ML IV SCH (09:00)
[2025-02-25] MEDS ORDERED: PANTOPRAZOLE SODIUM 40 MG TABEC PO SCH (09:00)
[2025-02-25] MEDS ORDERED: LACTATED RINGER'S 1,000 ML IV SCH (09:15)
[2025-02-25] MEDS ORDERED: HYDROmorphone HCL 1 MG/ML SYR IV PRN (09:15)
--- NOTE | 2025-02-25 09:16 | NUR ---
MD ARRIVED TO NURSES STATION. THIS RN ARRIVES TO ROOM, PRN ZOFRAN GIVEN - SEE MAR. 200ML EMESIS AT BEDSIDE WHICH WAS EMPTIED AND PT ON THE PHONE, NOT WANTING TO ANSWER QUESTIONS DUE TO BE ON THE PHONE. ASKS ABOUT MEDICAITON GIVEN VIA IV AND PT AGAIN INFROMED GIVING ZOFRAN FOR THE NAUSEA/EMESIS SHE JUST HAD. PRIMARY RN ENTERED ROOM AND INFORMED OF NEW UPDATES.
[2025-02-25 09:41] LABS: VITAMIN D 25 OH 12 ng/mL (30-80)
--- NOTE | 2025-02-25 09:49 | NUR ---
PATIENT IS RESTING IN BED NOW, QUARTZ MOUNTER CHARTED VITALS AND I&O'S, CALL LIGHT WITH IN REACH AND NOTHING ELSE NEEDED AT THIS TIME.
--- NOTE | 2025-02-25 09:53 | NUR ---
PT NOT AVAILABLE FOR VISIT. PROVIDED PRAYER.
[2025-02-25 10:30] LABS: CALCIUM IONIZED PH 7.4 0.85 mmol/L (1.09-1.30); CALCIUM,IONIZED SERUM 0.84 mmol/L (1.09-1.30)
--- NOTE | 2025-02-25 10:43 | NUR ---
INTO SEE PATIENT. PATIENT PLANS TO GO HOME WITH BROTHER AND MOTHER WHEN MEDICALLY CLEARED FOR DISCHARGE.
[2025-02-25] MEDS ORDERED: diphenhydrAMINE HCL 50 MG/ML VIAL IV ONE (11:15)
[2025-02-25] MEDS ORDERED: LORazepam 2 MG/ML VIAL IV ONE (11:32)
[2025-02-25 12:01] LABS: VITAMIN D,1,25-DIHYDROXY 51.2 pg/mL (19.9-79.3)
--- NOTE | 2025-02-25 12:11 | NUR ---
PATIENT ADMINISTERS SSI INSULIN TO HER LLQ, WITNESSED BY THIS RN AND NGUYỄN CUETO.
--- NOTE | 2025-02-25 12:15 | NUR ---
PATIENT'S MOTHER PRESENT IN ROOM. MOTHER UPDATED ON PATIENT PLAN OF CARE PER PATIENT'S REQUEST. ALL QUESTIONS ANSWERED. PATIENT RESTING IN BED WITH EYES CLOSED, RR EVEN AND UNLABORED, ANSWERS QUESTIONS WHEN ASKED. CALL LIGHT AND PERSONAL BELONGINGS IN REACH.
--- NOTE | 2025-02-25 13:00 | NUR ---
IMAGING ESCORTS PATIENT OFF THE FLOOR AT THIS TIME.
--- NOTE | 2025-02-25 14:17 | NUR ---
PATIENT IS SITTING ON THE EDGE OF HER BED AT THIS TIME, MOM IS IN THE ROOM, LEATHERSMITH CHARTED VITALS AND I&O'S. PATIENT JUST GOT BACK FROM THE SCAN, CALL LIGHT WITH IN REACH. PATIENT STATED SHE IS HUNGRY NOW AND WANTS FOOD. I INFORMED HER WE WILL HAVE TO WAIT FOR THE DR TO LET US KNOW THE VERDICT AND RESULTS. RN NOTIFIED AND NOTHING ELSE NEEDED AT THIS TIME.
[2025-02-25] MEDS ORDERED: IBLOOD GLUCOSE TEST STRIP 1 EA TEST VI SCH ×2 (16:00→20:00)
[2025-02-25] MEDS ORDERED: INSULIN LISPRO 100 UNIT/ML ML SUB-Q SCH ×2 (16:00→20:00)
--- NOTE | 2025-02-25 17:47 | NUR ---
PATIENT REPORTS SHE IS TOLERATING SUPPER TRAY, NO NAUSEA AT THIS TIME. CALL LIGHT AND PERSONAL BELONGINGS IN REACH.
--- NOTE | 2025-02-25 18:19 | NUR ---
PATIENT RESTING IN BED WITH MOTHER PRESENT IN ROOM. PATIENT REPORTS SHE FEELS HER ANXIETY INCREASING AGAIN AND IS EXPERIENCING A TINGLING SENSATION IN HER HANDS. NO OTHER REQUESTS, CALL LIGHT AND PERSONAL BELONGINGS IN REACH.
--- NOTE | 2025-02-25 18:19 | NUR ---
PATIENT IS IN BED AT THIS TIME, MOTHER IS IN ROOM WITH HER, DIRECTOR CRITICAL CARE CHARTED VITALS AND I&O'S, CALL LIGHT WITH IN REACH, FRESH ICE WATER AND NOTHING ELSE NEEDED AT THIS TIME.
--- NOTE | 2025-02-25 19:15 | NUR ---
REPORT RECEIVED FROM SCOTT RUDD. pt RESTING IN THE BED WITH EYES CLOSED. pt DENIES ANY OTHER NEEDS AT THIS TIME. CALL LIGHT WITHIN REACH.
--- NOTE | 2025-02-25 20:50 | NUR ---
ASSESSMENT AND VITAL SIGNS DONE. pt C/O 04/24 PAIN. PRN MEDS ADMINISTERED. SCHEDULEDS MEDS ADMINISTERED. IV ASSESSED, WNL. WARM PACK AND WARM BLANKET PROVIDED. BG CHECKED WITH A RESULTS OF 414. MD CALLED PER PROTOCOL. NEW ORDER PLACED AND VERFIED WITH REPEAT BACK METHOD FROM HIGH SCHOOL SOCIAL STUDIES TEACHER. SS INSULIN ADMINISTERED. pt REQUESTING IV BENADRYL THIS RN REMINDED THE pt THAT BECAUSE SHE IS TAKING PO JUST FINE THAT THE MD ONLY HAS PO BENADRYL ORDERED. THE pt THEN STATED SHE WAS HAVING TROUBLES SWALLING. THIS RN STATES IF SHE WAS HAVING TROUBLES SWALLOWING THAN SHE CAN TAKE HER PILLS ONE AT A TIME. NO OTHER NEEDS AT THIS TIME. CALL LIGHT WITHIN REACH.
[2025-02-25] MEDS ORDERED: INSULIN LISPRO 100 UNIT/ML ML SUB-Q ONE (21:00)
[2025-02-25 23:07] LABS: PARATHYROID HORMONE,INTACT 546 pg/mL (15-65)
--- NOTE | 2025-02-25 23:21 | NUR ---
pt RESTING IN THE BED WITH EYES CLOSED. RR EVEN AND UNLABORED. CALL LIGHT WITHIN REACH.
[2025-02-26] VITALS (11 sets, daily range): BP systolic 92–132; BP diastolic 61–87
--- NOTE | 2025-02-26 00:57 | NUR ---
pt RESTING IN THE BED WITH EYES CLOSED. RR EVEN AND UNLABORED. CALL LIGHT WITHIN REACH.
--- NOTE | 2025-02-26 01:48 | NUR ---
IN RM TO DO VITAL SIGNS. pt C/O 04/24 PAIN. PRN PAIN MEDS ADMINISTERED. PRN ANTIANXIETY MEDS ADMINISTERED. pt DENIES ANY OTHER NEEDS AT THIS TIME. CALL LIGHT WITHIN REACH.
--- NOTE | 2025-02-26 04:08 | NUR ---
pt RESTING IN THE BED WITH EYES CLOSED. RR EVEN AND UNLABORED. CALL LIGHT WITHIN REACH.
[2025-02-26 05:10] LABS: BASOPHILS 0.6 % (0.1-1.2); EOSINOPHILS 3.4 % (0.7-5.8); HEMATOCRIT 28.2 % (34.1-44.9); HEMOGLOBIN 8.6 g/dL (11.2-15.7); LYMPHOCYTES 29.5 % (19.3-51.7); MCH 27.9 PG (25.6-32.2); MCHC 30.5 g/dL (32.2-35.5); MCV 91.6 fL (79.4-94.8); NEUTROPHILS 55.9 % (34.0-71.1); PLATELET COUNT 324 K/uL (182-369); RBC 3.08 M/uL (3.93-5.22)
--- NOTE | 2025-02-26 05:25 | NUR ---
PHARMACY INFORMATICS MANAGER OBTAINED VITALS AND I&O. PT STATES NO NEEDS AT THIS TIME. CALL LIGHT WITHIN REACH.
[2025-02-26 05:32] LABS: ALBUMIN 2.7 g/dL (3.4-5.0); ALBUMIN/GLOBULIN RATIO 0.61 (1.1-2.4); ANION GAP 15.9 (7-21); BILIRUBIN, TOTAL 0.2 mg/dL (0.2-1.0); BUN/CREATININE RATIO 10.63 (6.0-28.6); CREATININE, SERUM 2.82 mg/dL (0.55-1.02); MAGNESIUM 2.1 mg/dL (1.8-2.4); PHOSPHORUS, INORGANIC 4.3 mg/dL (2.5-4.9); POTASSIUM 4.9 mmol/L (3.5-5.1); PROTEIN, TOTAL 7.1 g/dL (6.4-8.2)
[2025-02-26 05:37] LABS: CALCIUM 6.2 mg/dL (8.5-10.1)
--- NOTE | 2025-02-26 05:46 | NUR ---
PT UTILIZES CALL LIGHT, REQUESTS PRN PAIN MEDICATION. TECHNICAL BUSINESS SYSTEMS ANALYST TO ROOM, PT RATES PAIN 8/10. PRN ADMINISTERED. PT THEN REPORTS BEING ITCHY. PT SPECIFICALLY ASKS FOR BENADRYL IV. EDUCATION PROVIDED REGARDING PO ADMINISTRATION. PT STATES THAT THE IV WORKS BETTER AND FASTER FOR HER. AGREES TO TAKE PO. PT THEN REPORTS THAT SHE IS FEELING ANXIOUS. PRNS ADMINISTERED FOR ITCHING AND ANXIETY, SEE EMAR. PT REQUESTS DIET SODA, PROVIDED. PT DENIES FURTHER NEEDS. CALL LIGHT IN REACH.
--- NOTE | 2025-02-26 05:46 | NUR ---
THIS RN CALLED MD ABOUT CRITICAL LAB VALUE. NO NEW ORDERS AT THIS TIME.
--- NOTE | 2025-02-26 07:22 | NUR ---
REPORT RECEIVED FROM BLAIRE HARRIS. PATIENT IS UP AND AMBULATING IN ROOM, SHE IS REQUESTING A SHOWER. MARTA MORGAN IS AWARE AND SETTING THE PATIENT UP FOR THIS. NO OTHER REQUESTS, CALL LIGHT AND PERSONAL BELONGINGS IN REACH.
--- NOTE | 2025-02-26 08:49 | NUR ---
MD IN ROOM WITH PATIENT TO ASSESS PATIENT AND ANSWER QUESTIONS FROM PATIENT AND PATIENT'S MOTHER WHO IS ON THE PHONE.
[2025-02-26] MEDS ORDERED: CHOLECALCIFEROL 1,000 UNIT TAB PO SCH (09:00)
[2025-02-26] MEDS ORDERED: CYANOCOBALAMIN 1,000 MCG TAB PO SCH (09:00)
--- NOTE | 2025-02-26 09:13 | NUR ---
BLOOD SUGAR CHECKED AND BLAIRE CHAVEZ NOTIFIED. PATIENT'S IV WAS WRAPPED AND BATHROOM WAS SET UP FOR A SHOWER. TELE REATTACHED ONCE DONE. DR. LOPES. ENTERED THE ROOM TO UPDATE PATIENT'S FAMILY OVER THE PHONE. TELE WAS REATTACHED BY BLAIRE CHAVEZ.
--- NOTE | 2025-02-26 09:49 | NUR ---
MEDICATION ADMINISTERED, SEE MAR. ASSESSMENT COMPLETE. PATIENT HAS COMPLETED SHOWERING INDEPENDENTLY. TELE #3 PLACED. PATIENT IS ON HER PHONE SPEAKING WITH A FRIEND THROUGHOUT MEDICATION SCANNING AND ASSESSMENT. TAKES MEDICATIONS AFTER FINISHING HER CONVERSATION WITH HER FRIEND AND ASKS QUESTIONS REGARDING EACH MEDICATION. ALL QUESTIONS ANSWERED. PATIENT LIES DOWN IN BED AND CLOSES EYES FOR REMAINDER OF ASSESSMENT AND IV MEDICATION ADMINISTRATION. PATIENT REPORTS THAT SHE FEELS "TINGLY ALL OVER" BUT OTHERWISE DOES NOT SPEAK. BATHROOM PICKED OVER, HAT SUPPLIED FOR STOOL SAMPLE AND PATIENT IS AWARE A STOOL SAMPLE IS NEEDED. IV ABX CURRENTLY INFUSING WNL. NO REQUESTS, CALL LIGHT AND PERSONAL BELONGINGS IN REACH.
[2025-02-26] MEDS ORDERED: LORazepam 0.5 MG TAB PO PRN (10:15)
--- NOTE | 2025-02-26 10:34 | NUR ---
FRESH HAT X2 PLACED FOR STOOL SAMPLE AND URINE SAMPLE. IV ABX COMPLETED, PATIENT IS SALINE LOCKED AT THIS TIME. PATIENT IS RESTING IN BED WITH EYES CLOSED, RR EVEN AND UNLABORED. BRIEFLY WAKES TO THIS RN FLUSHING IV BUT REMAINS RESTING. CALL LIGHT AND PERSONAL BELONGINGS IN REACH.
[2025-02-26] MEDS ORDERED: IBLOOD GLUCOSE TEST STRIP 1 EA TEST VI SCH (12:00)
[2025-02-26] MEDS ORDERED: INSULIN LISPRO 100 UNIT/ML ML SUB-Q SCH (12:00)
--- NOTE | 2025-02-26 13:46 | NUR ---
PT STATES IS NAUSEOUS AFTER LUNCH. ZOFRAN GIVEN ORDERED. CALL LIGHT WITHIN REACH.
--- NOTE | 2025-02-26 14:26 | NUR ---
THIS RN TO PATIENT'S ROOM AFTER PATIENT CALLED REPORTING "REALLY CRAZY ANXIETY" AND REQUESTING IV MEDICATIONS. PATIENT IS RESTING IN BED WITH EYES CLOSED, RR EVEN AND UNLABORED WHEN THIS RN ARRIVES TO ROOM. PATIENT DOES NOT WAKE TO THIS RN USING THE COMPUTER, CONTINUES RESTING WITH EYES CLOSED. CALL LIGHT AND PERSONAL BELONGINGS IN REACH.
--- NOTE | 2025-02-26 15:19 | NUR ---
PATIENT REMAINS RESTING WITH EYES CLOSED, RR EVEN AND UNLABORED. CALL LIGHT AND PERSONAL BELONGINGS IN REACH.
[2025-02-26] MEDS ORDERED: ATORVASTATIN 20 MG TAB PO SCH (17:00)
--- NOTE | 2025-02-26 17:15 | NUR ---
MEDICATIONS ADMINISTERED, SEE MAR. PATIENT IS ASKING WHAT THE PLAN OF CARE FOR HER IS AND WHY SHE IS STILL IN THE HOSPITAL. PATIENT REPORTS SHE DOES NOT REMEMBER SPEAKING WITH THE DOCTOR THIS MORNING. PATIENT UPDATED ON PLAN OF CARE AND VERBALIZES UNDERSTANDING. PATIENT HAS NO OTHER REQUESTS AT THIS TIME, CALL LIGHT AND PERSONAL BELONGINGS IN REACH.
--- NOTE | 2025-02-26 18:10 | NUR ---
URINE AND STOOL SAMPLE OBTAINED AND SENT TO LAB. PATIENT IS SITTING UP IN BED WITH A LARGE BAG OF LAYS POTATO CHIPS AT BEDSIDE. PATIENT'S MUM IS IN ROOM AND REMOVES THE BAG OF POTATO CHIPS STATING "YOU'RE NOT EVEN SUPPOSED TO HAVE THESE." PATIENT STATES "I WASN'T EVEN EATING THEM." PATIENT TELLS HER MUM SHE WOULD LIKE TO ORDER A BURGER. NO REQUESTS, CALL LIGHT AND PERSONAL BELONGINGS IN REACH.
--- NOTE | 2025-02-26 19:38 | NUR ---
REPORT RECEIVED FROM DAY SHIFT RN. PT LYING IN BED ALERT AND ORIENTED. DENIES NEEDS. WHITE BOARD UPDATED. CALL LIGHT IN REACH.
[2025-02-26] MEDS ORDERED: FLUCONAZOLE 150 MG TAB PO ONE ×2 (20:45→23:30)
--- NOTE | 2025-02-26 20:47 | NUR ---
EVENING ASSESSMENT COMPLETE. SCHEDULED MEDS ADMIN PER EMAR. PT REPORTS ANXIETY/TINGLING IN HANDS. PRN FOR ANXIETY ADMIN. PT ALSO REPORTS ABD PAIN 04/24. PRN FOR PAIN ADMIN. TELE #[address] SR[address] HR LOW 100'S. ABD SOFT. BOWEL TONES ACTIVE. PT REPORTS VAGINAL ITCHING. NOTIFIED. NEW TELEPHONE ORDERS VERIFIED WITH READBACK METHOD. VS AND I&O OBTAINED. WARM BLANKET PROVIDED. NO FURTHER NEEDS. CALL LIGHT IN REACH.
--- NOTE | 2025-02-26 23:34 | NUR ---
CALL LIGHT ANSWERED. PT REPORTS ABD PAIN 05/25. PRN FOR PAIN ADMIN PER EMAR. NO FURTHER NEEDS. CALL LIGHT IN REACH.
[2025-02-27] VITALS (10 sets, daily range): BP systolic 110–169; BP diastolic 72–96
--- NOTE | 2025-02-27 02:28 | NUR ---
PT AWAKE TALKING ON PHONE. VS OBTAINED. PT REPORTS ABD PAIN 04/24. PRN FOR PAIN ADMIN PER EMAR. DIET CRANBERRY JUICE PROVIDED PER REQUEST. WARM BLANKET PROVIDED. NO FURTHER NEEDS.
--- NOTE | 2025-02-27 03:01 | NUR ---
CALL LIGHT ANSWERED X 2. PT REPORTS ANXIETY. IN ROOM FOR PRN ADMIN. PT LYING IN BED WITH EYES CLOSED. RESPONDS TO VOICE. PRN ADMIN. NO FURTHER NEEDS.
--- NOTE | 2025-02-27 04:41 | NUR ---
PT UTILIZES CALL LIGHT, REPORTS FEELING ANXIOUS. PRN ADMINISTERED, SEE EMAR. WHILE AT BEDSIDE PT REPORTS FEELING THOUGH HER SUGAR IS LOW. ACCUCHECK DONE, 247. PT DENIES FURTHER NEEDS AT THIS TIME. CALL LIGHT IN REACH.
[2025-02-27 05:06] LABS: BASOPHILS 0.6 % (0.1-1.2); EOSINOPHILS 3.8 % (0.7-5.8); HEMATOCRIT 26.7 % (34.1-44.9); HEMOGLOBIN 8.2 g/dL (11.2-15.7); MCH 28.2 PG (25.6-32.2); MCHC 30.7 g/dL (32.2-35.5); MCV 91.8 fL (79.4-94.8); MONOCYTES 10.2 % (4.7-12.5); NEUTROPHILS 52.6 % (34.0-71.1); PLATELET COUNT 348 K/uL (182-369); RBC 2.91 M/uL (3.93-5.22)
--- NOTE | 2025-02-27 05:15 | NUR ---
LAB IN ROOM FOR MORNING DRAW. VS AND I&O OBTAINED. PT DENIES NEEDS. CALL LIGHT IN REACH.
[2025-02-27 05:16] LABS: INR 1.13 (0.80-1.30); PROTIME 14.1 Sec (11.2-14.2)
[2025-02-27 05:28] LABS: ALBUMIN 2.8 g/dL (3.4-5.0); ALBUMIN/GLOBULIN RATIO 0.64 (1.1-2.4); ANION GAP 15.7 (7-21); BILIRUBIN, TOTAL 0.2 mg/dL (0.2-1.0); BUN/CREATININE RATIO 8.65 (6.0-28.6); CREATININE, SERUM 3.12 mg/dL (0.55-1.02); MAGNESIUM 2.1 mg/dL (1.8-2.4); PHOSPHORUS, INORGANIC 4.8 mg/dL (2.5-4.9); POTASSIUM 5.7 mmol/L (3.5-5.1); PROTEIN, TOTAL 7.2 g/dL (6.4-8.2)
[2025-02-27 05:31] LABS: CALCIUM 6.2 mg/dL (8.5-10.1)
--- NOTE | 2025-02-27 07:27 | NUR ---
MORNING REPORT RECIEVED FROM BLAIRE SALDIVAR. PT SITTING UP ON EDGE OF BED AWAKE AND ALERT, PT HAS NO CONCERNS AT THIS TIME AND INSTRUCTED TO USE CALL LIGHT IF NEEDED.
[2025-02-27] MEDS ORDERED: SODIUM ZIRCONIUM CYCLOSILICATE 10 GM PACK PO ONE (08:00)
[2025-02-27] MEDS ORDERED: SODIUM CHLORIDE 0.9% 1,000 ML IV SCH (08:15)
--- NOTE | 2025-02-27 08:30 | NUR ---
PT SITTING UP IN BED AT THIS ITME, PT REPORT ANXIETY, AND PAIN, PT GIVEN PRN ATIVAN AND PRN, PAIN MEDICATION (SEE EMAR). PT HAS NO OTHER CONCERNS AT THIS TIME. CALL LIGHT IN REACH.
[2025-02-27] MEDS ORDERED: OXYCODONE HCL 5 MG TAB PO PRN (10:00)
--- NOTE | 2025-02-27 10:08 | NUR ---
PT WAS SITTING UP IN BED, AWAKE AND ALERT CLEANED UP ROOM, THERE WAS A LOT OF GARBAGE ON THE FLOOR, PT REQUESTING BENADRYL - ALERTED NURSE, GOT FRESH ICE WATER AND WARM BLANKET, CALL LIGHT WITHIN REACH
[2025-02-27] MEDS ORDERED: diphenhydrAMINE HCL 50 MG/ML VIAL IV ONE (10:15)
--- NOTE | 2025-02-27 10:38 | NUR ---
PT REPORTS MINIMAL FULL BODY ITCHING AND REQUESTED ONE TIME DOSE OF IV BENIDRYL. PT HAS NO OTHER CONCERNS AT THIS TIME AND HAS CALL LIGHT IN REACH.
--- NOTE | 2025-02-27 11:21 | NUR ---
HOURLY ROUNDING. PATIENT CALLED WITH USING THEIR CALL LIGHT. OVER THE CALL LIGHT SYSTEM SHE REPORTED THAT SHE THINKS HER BLOOD SUGAR WAS DROPPING. I WENT TO CHECK PATIENT BLOOD SUGAR (259) TRENDING HIGH- NURSE HAS BEEN NOTIFIED
--- NOTE | 2025-02-27 11:56 | NUR ---
PT SITTING UP IN BED AT THIS TIME, PT DENIES NEEDS AND STATES THEIR ITCHING HAS DECREASED AFTER 1 TIME DOSE OF IV BENIDRYL. PT HAS CALL LIGHT IN REACH AT THIS TIME.
--- NOTE | 2025-02-27 12:16 | NUR ---
PT REQUESTED A DIET SHIRA, WITH ICE, FRESH ICE WATER, ALISSON CRACKERS, SALTINE CRACKERS, AND A CHOCOLATE PUDDING - CALL LIGHT WITHIN REACH, PT REPORTED NEEDING NOTHING ELSE AT THIS TIME.
--- NOTE | 2025-02-27 12:25 | NUR ---
PT SITTING UP IN BED AT THIS TIME, PT HAS NO CURRENT CONCERNS AT THIS TIME. PT WAS EDUCATED ON DIET, PT WAS RECEPTIVE AT THIS TIME CONTINUE TO REINFORCE, CALL LIGHT IN REACH.
--- NOTE | 2025-02-27 12:48 | NUR ---
PRN ZOFRAN ADMINISTERED FOR NAUSEA ND 250 ML OF EMESIS. PATIENT IS REQUESTING IV BENADRYL AND PAIN MEDICATIONS. PATIENT EDUCATED ON GETTING NAUSEA MORE MANAGEABLE PRIOR TO GIVING MORE MEDICATION. PATIENT EXPRESSED WANTING TO SPEAK WITH THE OTHER NURSE. BLAIRE CLAYTON IS OFF THE FLOOR AT THIS TIME. NEW EMESIS BAG IN PLACE. CALL LIGHT AND PERSONAL BELONGINGS ARE WITHIN REACH.
[2025-02-27 13:20] LABS: ANION GAP 15.2 (7-21); BUN/CREATININE RATIO 10.32 (6.0-28.6); CALCIUM 6.6 mg/dL (8.5-10.1); CREATININE, SERUM 2.81 mg/dL (0.55-1.02); POTASSIUM 4.2 mmol/L (3.5-5.1)
--- NOTE | 2025-02-27 13:22 | NUR ---
IN PT ROOM, PT STATES HE NAUSEA HAS DECREASED A SMALL AMOUNT, PT EDUCATED THAT ZOFRAN HAS NOT HAD ENOUGH TIME TO START ITS FULL EFFECTS. PT STATES THEY WANT IV BENIDRY FOR ITCHING, PT WAS TOLD THAT IV BENIDRYL WAS A ONE TIME DOSE AND THAT THEY CAN HAVE PO BENIDRYL ONE THEY STOP FEELING THE NAUSEA. PT WAS IRRITATED AND THIS RN TRIED TO CALM PT DOWN. PT WAS INFORMED THAT THIS RN WILL RETURN IN A FEW MINUTES TO CHECK ON THEM. PT AGREEABLE AT THIS TIME CALL LIGHT IN REACH.
[2025-02-27] MEDS ORDERED: LORazepam 1 MG TAB PO PRN (14:30)
--- NOTE | 2025-02-27 15:12 | NUR ---
PT LAYING IN BED AT THIS TIME, PT HAS EYES CLOSED CHEST RISE EQUAL BILAT. PT HAS CALL LIGHT IN REACH AT THIS TIME.
--- NOTE | 2025-02-27 15:21 | NUR ---
PT REFUSED LINEN CHANGE, PT STATED SHE WANTS TO LEAVE- REPORTED TO NURSE CALL LIGHT WITHIN REACH, PT REPORTED NEEDING NOTHING ELSE AT THIS TIME
--- NOTE | 2025-02-27 16:02 | NUR ---
PT SITTING UP IN BED AT THIS TIME TALKING TO FAMILY ON PHONE, PT DENIES NEEDS AT THIS TIME. PT HAS CALL LIGHT IN REACH.
--- NOTE | 2025-02-27 16:43 | NUR ---
PT REQUESTED ALISSON CRACKERS AND CHOCOLATE PUDDING. i INFORMED HER THAT SHE COULD NOT HAVE ANY ALISSON CRACKERS, DUE TO HIGH BLOOD SUGAR READINGS, DR ROE, BUT I GOT HER SUGAR FREE CHOCOLATE PUDDING, AND FRESH ICE WATER. i ALSO MADE HER A REQUESTED HOT PACK THAT SHE HAD ME PLACE ON HER STOMACH. CALL LIGHT WITHIN REACH. PT REPORTED NEEDING NOTHING ELSE AT THIS TIME.
[2025-02-27] MEDS ORDERED: INSULIN LISPRO 100 UNIT/ML ML SUB-Q SCH (17:00)
--- NOTE | 2025-02-27 18:06 | NUR ---
MD LOPES CONTACTED ABOUT PT INSULIN ADMIN IN EMAR AND PT GLUCOSE OF 163 MD LOPES AWARE AND THIS RN USED CLINICAL JUDGMENT TO HOLD 6U OF INSULIN.
--- NOTE | 2025-02-27 18:34 | NUR ---
PT REQUESTED A WARM BLANKET - MARTA YBARRA GOT PT A WARM BLANKET PT WAS STANDING UP NEXT TO HER BED WHEN MARTA YBARRA CAME IN TO DO VITALS, PT ASKED IF SHE WAS GOING HOME TODAY - MARTA YBARRA REPLIED THAT ONLY THE DOCTOR DETERMINES WHEN A PT LEAVES - PT REPORTED SHE WAS IN "SOME PAIN" AND MARTA YBARRA SAID SHE WOULD REPORT THAT TO PT'S NURSE - CALL LIGHT WITHIN REACH
--- NOTE | 2025-02-27 19:41 | NUR ---
REPORT RECEIVED FROM DAY SHIFT RN. PT AMB IN ROOM ALERT AND ORIENTED. NEW BAG IVF INFUSING PER ORDER. NO NEEDS AT THIS TIME. WHITE BOARD UPDATED. CALL LIGHT IN REACH.
[2025-02-27] MEDS ORDERED: INSULIN GLARGINE-YFGN 100 UNIT/ML ML SUB-Q SCH (21:00)
--- NOTE | 2025-02-27 22:41 | NUR ---
SBA PATIENT RETURNED TO BED FROM BATHROOM. URINATED 300ML YELLOW URINE. ALARM SET ON FOR SAFETY.
--- NOTE | 2025-02-27 22:46 | NUR ---
PT RESTING WITH EYES CLOSED. DIFFICULT TO ROUSE. RESPONDS TO PAINFUL STIMULI. UPON WAKING PT DISORIENTED TO ALL. PT EVENTUALLY ABLE TO ANSWER ALL ORIENTATION QUESTIONS. VS OBTAINED, WNL. UP TO BR WITH SBA TO VOID. BACK TO BED, NAYAN WELL. GAIT STEADY. EVENING ASSESSMENT COMPLETE. SCHEDULED MEDS ADMIN PER [facility]. TELE #[address] SR. HR 90'S. NO FURTHER NEEDS AT THIS TIME. CALL LIGHT IN REACH. BED ALARM FOR SAFETY.
--- NOTE | 2025-02-27 23:36 | NUR ---
CALL LIGHT ANSWERED. PT REPORTS ABD PAIN 04/24. PRN FOR PAIN ADMIN PER [facility]. NO FURTHER NEEDS. BED ALARM IN PLACE. CALL LIGHT IN REACH.
[2025-02-28] VITALS (11 sets, daily range): BP systolic 114–162; BP diastolic 78–95
--- NOTE | 2025-02-28 01:45 | NUR ---
PT RESTING IN BED WITH EYES CLOSED. RESPIRATIONS EVEN. VS HELD TO ALLOW FOR REST. TELE #[address] SR. HR 90'S. BED ALARM FOR SAFETY. CALL LIGHT IN REACH.
--- NOTE | 2025-02-28 05:20 | NUR ---
CALL LIGHT ANSWERED. PT REPORTS ABD PAIN. PRN FOR PAIN ADMIN PER EMAR. PT UP TO BR WITH MINIMAL SBA TO VOID. BACK TO BED, NAYAN WELL. PT ALERT AND ORIENTED AT THIS TIME. VS AND I&O OBTAINED. NO FURTHER NEEDS. CALL LIGHT IN REACH.
[2025-02-28 05:57] LABS: BASOPHILS 0.3 % (0.1-1.2); EOSINOPHILS 4.2 % (0.7-5.8); HEMATOCRIT 26.6 % (34.1-44.9); LYMPHOCYTES 36.5 % (19.3-51.7); MCH 28.2 PG (25.6-32.2); MCHC 30.1 g/dL (32.2-35.5); MCV 93.7 fL (79.4-94.8); MONOCYTES 10.5 % (4.7-12.5); PLATELET COUNT 361 K/uL (182-369); RBC 2.84 M/uL (3.93-5.22)
[2025-02-28 06:21] LABS: ALBUMIN 2.8 g/dL (3.4-5.0); ALBUMIN/GLOBULIN RATIO 0.64 (1.1-2.4); ANION GAP 15.6 (7-21); BILIRUBIN, TOTAL 0.2 mg/dL (0.2-1.0); BUN/CREATININE RATIO 8.54 (6.0-28.6); CALCIUM 6.7 mg/dL (8.5-10.1); CREATININE, SERUM 2.81 mg/dL (0.55-1.02); MAGNESIUM 2.2 mg/dL (1.8-2.4); POTASSIUM 4.6 mmol/L (3.5-5.1); PROTEIN, TOTAL 7.2 g/dL (6.4-8.2)
--- NOTE | 2025-02-28 07:27 | NUR ---
MORNING REPORT RECIEVED FROM BLAIRE SALDIVAR. PT AWAKE AND SITTING UP IN BED, PT REQUESTED SOME TEA AND HAS NO OTHER CONCERNS. PT DID HAVE A ACUTE EPISODE LAST NIGHT AND NEEDED TO BE STERNAL RUBBED TO BE AWAKEN LAST NIGHT. PT WOKE UP WITH NO DEFICITS OR SYMPTOMS OF ANY KIND. PT STATED THEY WERE DREAMING REALLY HARD IS WHAT THIS RN RECIEVED IN REPORT FROM YARIEL, PT HAD NO OTHER EPISODES THROUGH THE NIGHT, AND IS AWAKE AND ALERT THIS MORNING. PT HAS NO CURRENT CONCERNS OTHER THEN GOING HOME. PT HAS CALL LIGHT IN REACH.
--- NOTE | 2025-02-28 08:54 | NUR ---
PNEUMATIC TOOL REPAIRER TESTED PT'S BLOOD GLUCOSE, IT WAS RECORDED IN ROOM, PT REQUESTED WARM BLANKET, MARTA YBARRA GOT THE BLANKET, CALL LIGHT WITHIN REACH
[2025-02-28] MEDS ORDERED: INSULIN GLARGINE-YFGN 100 UNIT/ML ML SUB-Q SCH (09:00)
--- NOTE | 2025-02-28 09:07 | NUR ---
PT SITTING UP IN BED AT THIS TIME. PT HAS REQUESTED TO LEAVE AND GO HOME, THIS RN SPOKE WITH PT AND TOLD THEM MD LOPES WILL BE NOTIFIED WHEN HE IS BACK TO THE FLOOR, PT AGREEABLE AT THIS TIME AND HAS CALL LIGHT IN REACH.
--- NOTE | 2025-02-28 09:48 | NUR ---
PT HAD SPILLED HER BREAKFAST OVER HER BED SIDE TABLE, STOKER ERECTOR AND SERVICER CLEANED IT UP, TOOK VITALS AND I/O'S. PT WAS STANDING WHEN STOKER ERECTOR AND SERVICER ENTERED THE ROOM AND REPORTED NAUSEA AND A "LITTLE PAIN" BUT WOULD NOT RATE HER PAIN ON A SCALE, SHE REFUSED. STOKER ERECTOR AND SERVICER REPORTED THE PT'S PAIN AND NAUSEA TO HER NURSE. CALL LIGHT WITHIN REACH, ROOM PICKED UP AND BATHROOM EMPTIED AND CLEANED.
--- NOTE | 2025-02-28 10:22 | NUR ---
PT REQUESTED LOTION AND CHAPSTICK, THIS BLADE GRADER OPERATOR GOT BOTH ITEMS. PT'S BATHROOM WAS CLEANED,DUE TO A MESS AROUND THE SINK AREA. CALL LIGHT WITHIN REACH OF PT, PT REQUESTED NOTHING ELSE AT THIS TIME.
--- NOTE | 2025-02-28 11:12 | NUR ---
INTO SEE PATIENT. PATIENT IS WANTING TO D/C. PATIENT MOTHER TO COME GET HER WHEN MEDICALLY CLEARED. DENIES ANY CM NEEDS AT THIS TIME.
--- NOTE | 2025-02-28 11:24 | NUR ---
PT SITTING UP IN CHAIR, PT HAS NO NEEDS AT THIS TIME. PT HAS CALL LIGHT IN REACH.
--- NOTE | 2025-02-28 11:26 | NUR ---
PT REQUESTED A DIET SHIRA AND A SUGAR FREE CHOCOLATE PUDDING. SALES SUPPORT MANAGERBlue YBARRA CHANGED HER BED WHEN THE PT SAT DOWN ON HER CHAIR. CALL LIGHT WITHIN REACH. PT ASKED FOR ALISSON CRACKERS, THIS SALES SUPPORT MANAGER REMINDED HER THAT HER NURSE /DOCTORS ORDERS DO NOT INCLUDE ALISSON CRACKERS, SHE ASKED FOR STRING CHEESE - BUT THERE WASN'T ANY IN THE NUTRITION REFRIGERATOR. PT REPORTED NOT NEEDING ANYTHING ELSE AT THIS TIME.
--- NOTE | 2025-02-28 12:01 | NUR ---
THIS ADVERTISING JOB TITLES ASSISTED MARTA BARNARD WITH GETTING BLOOD GLUCOSE LEVEL TEST ON THIS PATIENT. PT IS NOW EATING LUNCH, SITTING IN CHAIR. CALL LIGHT WITHIN REACH.
--- NOTE | 2025-02-28 12:12 | NUR ---
PT BG WAS 128 PT DID NOT RECIEVE INSULIN DURING LUNCH MEAL. PT SITTING UP IN CHAIR AT THIS TIME EATING LUNCH AND HAS NO CURRENT CONCERNS AT THIS TIME. PT CALL LIGHT IN REACH.
--- NOTE | 2025-02-28 13:49 | NUR ---
ROUNDING. NURSE DELEGATED ME TO CHECK ON PATIENT DUE TO TELE BEING TACHY. PAITENT REPORTS HAVING STOMACH PAIN. WARM BLANKET HAS BEEN GIVEN. PATIENT JUST FINISHED EATING LUNCH, AND REQUEST TO HAVE SOMETHING FOR PAIN. PAIN LEVEL 9 PAITENT REPORTS. NURSE HAS BEEN NOTIFIED. CALL LIGHT HAS BEEN PLACED WITHIN REACH
--- NOTE | 2025-02-28 14:00 | NUR ---
PT REPORTS PAIN 8-10 DESCRIBED SHARP STABBING PAIN IN THEIR RIGHT LOWER BACK AND ABD, PT HAS ACTIVE BOWEL TONES AND STATES " THIS PAIN HAS BEEN THERE A FEW DAYS". PT HR HAS INCREASED TODAY COMPAIRED TO THE DAY BEFORE AND CCU CANTACTED THIS RN SAYING THE PT QT INTERVAL HAS ELONGATED FROM PREVIOUS STRIP. PT IS CURRENTLY LAYING IN BED WIHT STABLE VITALS AND HR OF 101. PT HAS NO LIGHT HEADEDNESS OR HEADACHES. PT DENIES ANY OTHER SYMPTOMS. PT HAS CALL LIGHT IN REACH AT THIS TIME AND RECIEVED PRN OXY FOR PAIN.
--- NOTE | 2025-02-28 15:45 | NUR ---
PT FINISHED HER NAP, I GOT HER FRESH ICE WATER, DIET SHIRA WITH ICE, AND A FRESH HOT PACK FOR HER REPORT OF PAIN. PT'S NURSE WAS IN THE ROOM HANGING A NEW IV BAG SO HE HEARD THE PAIN REPORT. CALL LIGHT WITHIN REACH OF PT.
--- NOTE | 2025-02-28 15:52 | NUR ---
PT AMBULATED TO THE RESTROOM SBA, PT TOLERATED AMBULATION WELL. PT COMPLAINED OF ABD PAIN AND WAS GIVEN A HEAT PACK. PT HAS NO OTHER CONCERNS AT THIS TIME AND HAS CALL LIGHT IN REACH PT LAYING IN BED.
--- NOTE | 2025-02-28 16:15 | NUR ---
Pt report received from BLAIRE Raymundo. Pt is resting supine in bed, reports she is "itchy". Pt give 25mg vistaril PO per emar. Pt requests pain meds but was advised that it is too soon for them.
--- NOTE | 2025-02-28 16:58 | NUR ---
PT REQUESTED ANOTHER DIET SHIRA TO HAVE WITH DINNER, THIS HACKLER DOLL WIGS GOT IT FOR HER. SHE REPORTED FEELING WARM, THIS HACKLER DOLL WIGS TURNED DOWN THE HEAT IN HER ROOM. CALL LIGHT WITHIN REACH, PT REPORTED NEEDING NOTHING ELSE AT THIS TIME.
--- NOTE | 2025-02-28 18:25 | NUR ---
PT SITTING UP IN BED, AWAKE AND ALERT. PT REPORTED FEELING DOWN BECAUSE SHE WAS NOT SURE IF HER PARENTS WERE COMING TO THE HOSPITAL TONIGHT TO VISIT. i SPENT TIME TALKING TO PT ABOUT THIS CONCERN. I GOT PT FRESH ICE WATER. CALL LIGHT WITHIN REACH. PT ON CELL PHONE, BUT SAID SHE NEEDED NOTHING ELSE AT THIS TIME.
--- NOTE | 2025-02-28 19:20 | NUR ---
REPORT RECEIVED FROM DAY SHIFT RN. PT AMB IN ROOM. ALERT AND ORIENTED. MOM IN ROOM. DENIES NEEDS. WHITE BOARD UPDATED. CALL LIGHT IN REACH.
--- NOTE | 2025-02-28 21:42 | NUR ---
EVENING ASSESSMENT COMPLETE. SCHEDULED MEDS ADMIN PER EMAR. PT REPORTS LEFT SIDE PAIN AND ANXIETY. PRN'S ADMIN PER EMAR. VS AND I&O OBTAINED. TELE #[address] SR. HR LOW 100'S. WARM BLANKETS PROVIDED. PT DENIES FURTHER NEEDS. CALL LIGHT IN REACH.
--- NOTE | 2025-02-28 22:43 | NUR ---
CALL LIGHT ANSWERED. PT REPORTS ITCHING. PRN FOR ITCHING PROVIDED PER EMAR. NO FURTHER NEEDS.
--- NOTE | 2025-02-28 23:26 | NUR ---
PT LYING IN BED RESTING WITH EYES CLOSED. RESPIRATIONS EVEN. CALL LIGHT IN REACH.
--- NOTE | 2025-03-01 01:42 | NUR ---
IV PUMP ALARMING. ISSUE RESOLVED. PT LYING ON LEFT SIDE RESTING WITH EYES CLOSED. RESPIRATIONS EVEN. TELE #[address] SR. HR LOW 100'S. VS HELD AT THIS TIME TO ALLOW PT TO REST.
--- NOTE | 2025-03-01 03:47 | NUR ---
PT IN BED RESTING WITH EYES CLOSED. RESPIRATIONS EVEN. CALL LIGHT IN REACH.
[2025-03-01 04:50] VITALS: BP 132/83
[2025-03-01 04:51] VITALS: BP 132/83
--- NOTE | 2025-03-01 05:00 | NUR ---
VS AND I&O OBTAINED. PT REPORTS ABD/LEFT SIDE/BACK PAIN. PRN FOR PAIN AND ITCHING ADMIN PER EMAR. WARM COMPRESS PROVIDED. ASSESSMENT UNCHANGED. NO FURTHER NEEDS.
[2025-03-01 05:36] LABS: ALBUMIN 2.8 g/dL (3.4-5.0); ALBUMIN/GLOBULIN RATIO 0.68 (1.1-2.4); ANION GAP 15.5 (7-21); BILIRUBIN, TOTAL 0.2 mg/dL (0.2-1.0); BUN/CREATININE RATIO 7.25 (6.0-28.6); CALCIUM 6.9 mg/dL (8.5-10.1); CREATININE, SERUM 2.62 mg/dL (0.55-1.02); POTASSIUM 4.5 mmol/L (3.5-5.1); PROTEIN, TOTAL 6.9 g/dL (6.4-8.2)
--- NOTE | 2025-03-01 07:35 | NUR ---
MORNING REPORT RECIEVED FROM BLAIRE SALDIVAR. PT HAD NO ACUTE EVENTS DURING THE NIGHT AND IS RESTING WITH EYES CLOSED CHEST RISE EQUAL BILAT. PT IS CURRENTLY ON TELE #3 HR 97BPM. PT HAS CALL LIGHT IN REACH.
--- NOTE | 2025-03-01 08:01 | NUR ---
PATIENT IS SITTING ON THE EDGE OF THE BED FOR BREAKFAST. BLOOD SUGAR CHECKED AND DOCUMENTED. WHITE BOARD WAS UPDATED WITH THE DATE, NURSE'S AND MEDIA PRODUCTION SUPPORT MANAGER'S NAMES. PATIENT REQUESTED COFFEE TO DRINK. NO OTHER CARES WERE REQUESTED.
--- NOTE | 2025-03-01 08:39 | NUR ---
PT SITTING UP AT EDGE OF BED, MORNING MEDICATIONS GIVEN (SEE EMAR). PT HAS NO CONCERNS OF PAIN AT THIS TIME, AND DENIES ITCHING. PT IS CURRENTLY EATING BREAKFAST AT THIS TIME AND HAS CALL LIGHT IN REACH.
[2025-03-01] MEDS ORDERED: NEURONTIN100 MG PO (08:50)
[2025-03-01] MEDS ORDERED: CALCIUM CARBON200 MG PO (08:52)
[2025-03-01] MEDS ORDERED: VITAMIN B-121000 MCG PO (08:53)
[2025-03-01] MEDS ORDERED: DECARA625 MCG PO (09:02)
[2025-03-01 09:21] VITALS: BP 132/88
[2025-03-01] MEDS ORDERED: VITAMIN D31250 MCG PO (09:36)
[2025-03-01 10:00] VITALS: BP 132/88
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
--- NOTE | 2025-03-01 10:00 | NUR ---
PT USED CALL LIGHT AND CALL THIS RN. PT HAD ACCIDENTLY PULED OWN IV. IV CATH INTACT AND NO REDNESS/SWELLING NOTED. PT WAS ALSO DC'D FROM TELE #3 AND WAS RETURNED TO CCU. PT IS CURRENTLY TAKING A SHOWER BEFORE DC. PT HAS NO CONCERNS AT THIS TIME FAMILY IS IN ROOM AT THIS TIME.
[2025-03-01 10:37] VITALS: BP 165/101
--- NOTE | 2025-03-01 11:00 | NUR ---
PT NOT AVAILABLE FOR VISIT. PROVIDED PRAYER.
--- NOTE | 2025-03-01 11:10 | NUR ---
PT DC PAPER READ TO PT, PT DENIES HAVING ANY QUESTIONS, PT WAS PICKED UP BY THEIR PARENTS, AND WAS TRANSPORTED VIA .
[2025-03-01 21:35] LABS: PANCREATIC ELASTASE,FECAL 105 ug/g (>=100)
== END 2025-03-01 10:55 | disposition home or self-care (01) | DRG 683 ==
LOC: ED 01:16 → MS 01:18
PROVIDERS: Emergency Medicine; ADMIT Student in an Organized Health Care Education/Training Program; ATTEND Student in an Organized Health Care Education/Training Program
DX: N17.9 Acute kidney failure, unspecified (principal); N39.0 Urinary tract infection, site not specified; E83.51 Hypocalcemia; N25.81 Secondary hyperparathyroidism of renal origin; E78.5 Hyperlipidemia, unspecified; H91.91 Unspecified hearing loss, right ear; N18.9 Chronic kidney disease, unspecified; I12.9 Hypertensive chronic kidney disease with stage 1 through stage 4 chronic kidney disease, or unspecified chronic kidney disease; R54 Age-related physical debility; D63.1 Anemia in chronic kidney disease; E10.22 Type 1 diabetes mellitus with diabetic chronic kidney disease; E87.5 Hyperkalemia; E10.65 Type 1 diabetes mellitus with hyperglycemia; D50.9 Iron deficiency anemia, unspecified; F39 Unspecified mood [affective] disorder; B37.31 Acute candidiasis of vulva and vagina; Z98.890 Other specified postprocedural states; Z90.49 Acquired absence of other specified parts of digestive tract; Z86.14 Personal history of Methicillin resistant Staphylococcus aureus infection; Z87.19 Personal history of other diseases of the digestive system; Z88.2 Allergy status to sulfonamides; Z88.1 Allergy status to other antibiotic agents; Z88.8 Allergy status to other drugs, medicaments and biological substances; Z79.899 Other long term (current) 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; Z79.891 Long term (current) use of opiate analgesic; Z79.4 Long term (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; Z85.841 Personal history of malignant neoplasm of brain; Z85.6 Personal history of leukemia
CPT/HCPCS: 36415; 74176; 74183; 76775; 80048; 80053; 81001; 82150; 82306; 82310; 82570; 82607; 82652; 83036; 83690; 83735; 83970; 84100; 84300; 84703; 85025; 85610; A9270; A9270-GY; A9573; G0378; J0696; J1171; J1200; J1815; J2060; J2405; J3475; J7030; J7121; Q0177

== ENCOUNTER 2025-06-16 13:13 | Emergency (ER) | payer OTHER ==
[~2025-06-16] VITALS: Ht 149.9 cm; Wt 41.5 kg
[~2025-06-16 13:13] MED LIST changes: +CALCIUM CARBON200 MG PO; +DECARA625 MCG PO; +VITAMIN B-121000 MCG PO; +VITAMIN D31250 MCG PO
[2025-06-16 13:37] LABS: BASOPHILS 0.7 % (0.1-1.2); EOSINOPHILS 1.2 % (0.7-5.8); LYMPHOCYTES 20.2 % (19.3-51.7); MCH 29.0 PG (25.6-32.2); MCHC 31.1 g/dL (32.2-35.5); MCV 93.1 fL (79.4-94.8); MONOCYTES 9.4 % (4.7-12.5); NEUTROPHILS 66.3 % (34.0-71.1); RBC 3.35 M/uL (3.93-5.22)
[2025-06-16 14:04] LABS: ALT (SGPT) 29.0 U/L (14-59); AST (SGOT) 23.0 U/L (15-37); GLOMERULAR FILTRATION RATE,EST 26.0 mL/min (>60); PROTEIN, TOTAL 7.2 g/dL (6.4-8.2); UREA NITROGEN 30.0 mg/dL (7-18)
[2025-06-16] MEDS ORDERED: SODIUM CHLORIDE 0.9% 1,000 ML IV PRN (14:30)
[2025-06-16] MEDS ORDERED: MORPHINE SULFATE 4 MG/ML VIAL IV ONE ×2 (15:30→18:00)
[2025-06-16] MEDS ORDERED: HEPARIN SOD,PORK IN 0.45% NACL 500 ML IV SCH (17:30)
[2025-06-16 18:03] LABS: INR 0.93 (0.80-1.30); PROTIME 11.8 Sec (11.2-14.2)
[2025-06-16] MEDS ORDERED: ASPIRIN 81 MG CHEW PO ONE (18:15)
[2025-06-16 18:37] VITALS: BP 93/80
--- NOTE | 2025-06-17 11:44 | EKG ---
[facility] [address] [facility] [place] [address] Signed Normal sinus rhythm Inferior infarct (cited on or before 06-JUL-2023) Abnormal ECG When compared with ECG of 16-JUN-2025 13:14, (Unconfirmed) Criteria for Anterior infarct are no longer present Confirmed by TRISTAN TORRES MD ([id number]) on 06/17/2025 11:44:18 AM Electronically Signed By: TRISTAN TORRES 06/17/25 1144 PATIENT NAME: MONTSE GUTIERREZ Electrocardiogram DATE OF : [birth year] PHYSICIAN: TRISTAN TORRES REPORT #: [id number] REPORT IS CONFIDENTIAL AND NOT TO BE RELEASED WITHOUT AUTHORIZATION
--- NOTE | 2025-06-17 11:45 | EKG ---
[facility] [address] [facility] [place], [place] [address] Signed Sinus tachycardia Possible Inferior infarct , age undetermined Anterior infarct , age undetermined Abnormal ECG No previous ECGs available Confirmed by TRISTAN TORRES MD ([id number]) on 06/17/2025 11:44:49 AM Electronically Signed By: TRISTAN TORRES 06/17/25 1145 PATIENT NAME: MONTSE GUTIERREZ Electrocardiogram DATE OF : [birth year] PHYSICIAN: TRISTAN TORRES REPORT #: [id number] REPORT IS CONFIDENTIAL AND NOT TO BE RELEASED WITHOUT AUTHORIZATION
== END 2025-06-16 18:55 | disposition short-term general hospital (02) ==
LOC: ED 13:13
PROVIDERS: Emergency Medicine
DX: I21.4 Non-ST elevation (NSTEMI) myocardial infarction (principal); D64.9 Anemia, unspecified; E10.22 Type 1 diabetes mellitus with diabetic chronic kidney disease; I12.9 Hypertensive chronic kidney disease with stage 1 through stage 4 chronic kidney disease, or unspecified chronic kidney disease; N18.9 Chronic kidney disease, unspecified; H91.91 Unspecified hearing loss, right ear; E78.5 Hyperlipidemia, unspecified; Z97.4 Presence of external hearing-aid; Z88.2 Allergy status to sulfonamides; Z88.0 Allergy status to penicillin; Z88.1 Allergy status to other antibiotic agents; Z88.5 Allergy status to narcotic agent; Z88.6 Allergy status to analgesic agent; Z88.8 Allergy status to other drugs, medicaments and biological substances; Z79.4 Long term (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; Z79.899 Other long term (current) 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
CPT/HCPCS: 36415; 71045; 71275; 80053; 83690; 83735; 83880; 84484; 85025; 85610; 85730; 93005; 93010; 96365; 96375; 96376; 99285-25; A9270; J1644; J2270; J7030

== ENCOUNTER 2025-06-28 07:34 | Emergency (ER) | payer OTHER ==
[~2025-06-28] VITALS: Ht 149.9 cm; Wt 42.3 kg
[2025-06-28 07:59] LABS: BASOPHILS 0.8 % (0.1-1.2); EOSINOPHILS 1.9 % (0.7-5.8); LYMPHOCYTES 29.8 % (19.3-51.7); MCH 28.9 PG (25.6-32.2); MCHC 31.5 g/dL (32.2-35.5); MCV 91.5 fL (79.4-94.8); MONOCYTES 7.8 % (4.7-12.5); NEUTROPHILS 59.1 % (34.0-71.1); RBC 2.84 M/uL (3.93-5.22)
[2025-06-28 08:04] LABS: INR 1.0 (0.80-1.30); PROTIME 12.5 Sec (11.2-14.2)
[2025-06-28 08:13] LABS: ALT (SGPT) 51.0 U/L (14-59); AST (SGOT) 69.0 U/L (15-37); GLOMERULAR FILTRATION RATE,EST 29.0 mL/min (>60); PROTEIN, TOTAL 7.4 g/dL (6.4-8.2); UREA NITROGEN 23.0 mg/dL (7-18)
[2025-06-28] MEDS ORDERED: SODIUM CHLORIDE 0.9% 1,000 ML IV PRN (08:30)
[2025-06-28] MEDS ORDERED: LORazepam 1 MG TAB PO ONE (08:30)
[2025-06-28] MEDS ORDERED: Insulin Regular, Human 100 UNIT/ML ML IV ONE (08:30)
[2025-06-28] MEDS ORDERED: CLOPIDOGREL BISULFATE 75 MG TAB PO ONE (09:00)
[2025-06-28] MEDS ORDERED: ASPIRIN 81 MG CHEW PO ONE (09:00)
[2025-06-28] MEDS ORDERED: OXYCODONE HCL 5 MG TAB PO ONE (09:15)
[2025-06-28] MEDS ORDERED: PLAVIX75 MG PO (09:42)
[2025-06-28] MEDS ORDERED: ASPIRIN81 MG PO (09:42)
[2025-06-28 09:55] VITALS: BP 128/97
--- NOTE | 2025-06-28 12:05 | EKG ---
[facility] [address] [facility] [place], [place] [address] Signed Normal sinus rhythm Inferior infarct (cited on or before 06-JUL-2023) Abnormal ECG When compared with ECG of 16-JUN-2025 14:38, No significant change was found Confirmed by Gianna Lopes DO ([id number]) on 06/28/2025 12:05:40 PM Electronically Signed By: GIANNA LOPES DO 06/28/25 1205 PATIENT NAME: MONTSE GUTIERREZ Electrocardiogram DATE OF : [birth year] PHYSICIAN: GIANNA LOPES DO REPORT #: [id number] REPORT IS CONFIDENTIAL AND NOT TO BE RELEASED WITHOUT AUTHORIZATION
== END 2025-06-28 09:55 | disposition home or self-care (01) ==
LOC: ED 07:34
PROVIDERS: Emergency Medicine
DX: R07.89 Other chest pain (principal); E10.65 Type 1 diabetes mellitus with hyperglycemia; T39.016A Underdosing of aspirin, initial encounter; T38.3X6A Underdosing of insulin and oral hypoglycemic [antidiabetic] drugs, initial encounter; T45.526A Underdosing of antithrombotic drugs, initial encounter; E10.22 Type 1 diabetes mellitus with diabetic chronic kidney disease; I12.9 Hypertensive chronic kidney disease with stage 1 through stage 4 chronic kidney disease, or unspecified chronic kidney disease; N18.9 Chronic kidney disease, unspecified; H91.91 Unspecified hearing loss, right ear; I25.2 Old myocardial infarction; Z91.148 Patient's other noncompliance with medication regimen for other reason; Z95.5 Presence of coronary angioplasty implant and graft; Z88.2 Allergy status to sulfonamides; Z88.0 Allergy status to penicillin; Z88.1 Allergy status to other antibiotic agents; Z88.5 Allergy status to narcotic agent; Z88.6 Allergy status to analgesic agent; Z88.8 Allergy status to other drugs, medicaments and biological substances; Z79.4 Long term (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; Z79.899 Other long term (current) 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
CPT/HCPCS: 36415; 71045; 80053; 83735; 84484; 84702; 84703; 85025; 85610; 93005; 93010; 96372; 99285-25; A9270; A9270-GY; J1815

== ENCOUNTER 2025-07-02 19:17 | Emergency (ER) | payer OTHER ==
[~2025-07-02] VITALS: Ht 149.9 cm; Wt 42.3 kg
[~2025-07-02 19:17] MED LIST changes: +ASPIRIN81 MG PO; +PLAVIX75 MG PO
[2025-07-02] MEDS ORDERED: OXYMETAZOLINE HCL 30 ML BTL NAS ONE (20:30)
[2025-07-02 20:32] VITALS: BP 137/88
== END 2025-07-02 20:32 | disposition home or self-care (01) ==
LOC: ED 19:17
DX: R04.0 Epistaxis (principal); E11.10 Type 2 diabetes mellitus with ketoacidosis without coma; Z88.2 Allergy status to sulfonamides; Z88.1 Allergy status to other antibiotic agents; Z79.899 Other long term (current) 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; Z79.01 Long term (current) use of anticoagulants; Z79.82 Long term (current) use of aspirin
CPT/HCPCS: 99283

== ENCOUNTER 2025-07-29 23:02 | Emergency (ER) | payer OTHER ==
[~2025-07-29] VITALS: Ht 149.9 cm; Wt 42.3 kg
[2025-07-29] MEDS ORDERED: ASPIRIN 81 MG CHEW PO ONE (23:30)
[2025-07-29] MEDS ORDERED: NITROGLYCERIN 0.4 MG SUBL SL PRN (23:30)
[2025-07-29 23:51] LABS: BASOPHILS 0.8 % (0.1-1.2); EOSINOPHILS 2.1 % (0.7-5.8); LYMPHOCYTES 16.4 % (19.3-51.7); MCH 30.2 PG (25.6-32.2); MCHC 32.7 g/dL (32.2-35.5); MCV 92.1 fL (79.4-94.8); MONOCYTES 7.5 % (4.7-12.5); NEUTROPHILS 72.3 % (34.0-71.1); RBC 3.05 M/uL (3.93-5.22)
[2025-07-30 00:04] LABS: ALT (SGPT) 27.0 U/L (14-59); AST (SGOT) 22.0 U/L (15-37); GLOMERULAR FILTRATION RATE,EST 29.0 mL/min (>60); PROTEIN, TOTAL 8.3 g/dL (6.4-8.2); UREA NITROGEN 48.0 mg/dL (7-18)
[2025-07-30] MEDS ORDERED: LACTATED RINGER'S 1,000 ML IV ONE ×2 (00:30→04:45)
[2025-07-30] MEDS ORDERED: CALCIUM CHLORIDE 1,000 MG in SODIUM CHLORIDE 0.9% 100 ML IV ONE (00:30)
[2025-07-30] MEDS ORDERED: POTASSIUM CHLORIDE 10 MEQ TABCR PO ONE ×2 (00:30→04:45)
[2025-07-30] MEDS ORDERED: KETOROLAC TROMETHAMINE 30 MG/ML VIAL IV ONE (02:00)
[2025-07-30] MEDS ORDERED: Insulin Regular, Human 100 UNIT/ML ML IV ONE (02:00)
[2025-07-30 02:30] LABS: BLOOD/HGB, URINE TRACE-I (Negative); KETONE, URINE TRACE (Negative); LEUK ESTERASE, URINE NEGATIVE (negative); NITRITE, URINE NEGATIVE (negative)
[2025-07-30 02:44] LABS: BACTERIA, URINE RARE /hpf (negative); CASTS, URINE NONE SEEN \\lpf; CRYSTALS, URINE NONE SEEN (0-1+); EPITHELIAL CELLS, URINE SQUAMOUS 1+ /lpf (0-1+); REFLEX CULTURE, URINE No (No)
[2025-07-30 04:28] LABS: GLOMERULAR FILTRATION RATE,EST 31.0 mL/min (>60); UREA NITROGEN 41.0 mg/dL (7-18)
[2025-07-30] MEDS ORDERED: POTASSIUM CHLORIDE 10 MEQ/100 ML BAG IV SCH (04:45)
[2025-07-30 07:24] LABS: GLOMERULAR FILTRATION RATE,EST 41.0 mL/min (>60); UREA NITROGEN 40.0 mg/dL (7-18)
[2025-07-30 08:30] VITALS: BP 116/82
--- NOTE | 2025-08-02 16:41 | EKG ---
[facility] [address] [place] [address] Signed Normal sinus rhythm Minimal voltage criteria for LVH, may be normal variant ( R in aVL ) Inferior infarct , age undetermined Cannot rule out Anterior infarct , age undetermined Abnormal ECG When compared with ECG of 28-JUN-2025 07:38, No significant change was found Confirmed by Sabino Simmons MD () on 08/02/2025 4:41:02 PM Electronically Signed By: SABINO SIMMONS MD 08/02/25 1641 PATIENT NAME: MONTSE GUTIERREZ Electrocardiogram DATE OF : [birth year] PHYSICIAN: SABINO SIMMONS MD REPORT #: [id number] REPORT IS CONFIDENTIAL AND NOT TO BE RELEASED WITHOUT AUTHORIZATION
--- NOTE | 2025-08-02 18:00 | EKG ---
[facility] [address] [facility] [place] [address] Signed Normal sinus rhythm Minimal voltage criteria for LVH, may be normal variant ( R in aVL ) Inferior infarct (cited on or before 06-JUL-2023) Abnormal ECG When compared with ECG of 29-JUL-2025 23:10, Minimal criteria for Anterior infarct are no longer present Confirmed by Sabino Simmons MD () on 08/02/2025 6:00:32 PM Electronically Signed By: SABINO SIMMONS MD 08/02/25 1800 PATIENT NAME: MONTSE GUTIERREZ Electrocardiogram DATE OF : [birth year] PHYSICIAN: SABINO SIMMONS MD REPORT #: [id number] REPORT IS CONFIDENTIAL AND NOT TO BE RELEASED WITHOUT AUTHORIZATION
== END 2025-07-30 08:30 | disposition home or self-care (01) ==
LOC: ED 23:02
PROVIDERS: Internal Medicine
DX: E10.59 Type 1 diabetes mellitus with other circulatory complications (principal); I25.10 Atherosclerotic heart disease of native coronary artery without angina pectoris; E10.65 Type 1 diabetes mellitus with hyperglycemia; E78.5 Hyperlipidemia, unspecified; I10 Essential (primary) hypertension; Z79.4 Long term (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; Z79.899 Other long term (current) 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; Z88.0 Allergy status to penicillin; Z88.1 Allergy status to other antibiotic agents; Z88.5 Allergy status to narcotic agent; Z88.2 Allergy status to sulfonamides; Z88.8 Allergy status to other drugs, medicaments and biological substances
CPT/HCPCS: 36415; 71045; 80048; 80053; 81001; 82010; 82803; 83690; 83735; 83880; 84484; 84702; 85025; 93005; 93010; 96365; 96366; 96367; 96375; 99285-25; A9270; J1200; J1815; J1885; J3480; J7121

== ENCOUNTER 2025-08-02 14:51 | Emergency (ER) | payer OTHER ==
[~2025-08-02] VITALS: Ht 149.9 cm; Wt 38.1 kg
[2025-08-02 16:56] LABS: BASOPHILS 0.9 % (0.1-1.2); EOSINOPHILS 2.5 % (0.7-5.8); LYMPHOCYTES 32.8 % (19.3-51.7); MCH 30.0 PG (25.6-32.2); MCHC 33.1 g/dL (32.2-35.5); MCV 90.7 fL (79.4-94.8); MONOCYTES 8.0 % (4.7-12.5); NEUTROPHILS 54.2 % (34.0-71.1); RBC 2.80 M/uL (3.93-5.22)
[2025-08-02 17:06] LABS: INR 0.94 (0.80-1.30); PROTIME 11.9 Sec (11.2-14.2)
[2025-08-02 17:16] LABS: ALT (SGPT) 25.0 U/L (14-59); AST (SGOT) 21.0 U/L (15-37); GLOMERULAR FILTRATION RATE,EST 27.0 mL/min (>60); PROTEIN, TOTAL 7.8 g/dL (6.4-8.2); UREA NITROGEN 42.0 mg/dL (7-18)
[2025-08-02 17:19] LABS: BLOOD/HGB, URINE MODERATE (Negative); KETONE, URINE TRACE (Negative); LEUK ESTERASE, URINE TRACE (negative); NITRITE, URINE NEGATIVE (negative)
[2025-08-02 17:27] LABS: BACTERIA, URINE NONE SEEN /hpf (negative); CASTS, URINE NONE SEEN \\lpf; CRYSTALS, URINE NONE SEEN (0-1+); EPITHELIAL CELLS, URINE SQUAMOUS 2+ /lpf (0-1+); REFLEX CULTURE, URINE No (No)
[2025-08-02] MEDS ORDERED: HYDROmorphone HCL 1 MG/ML SYR IV ONE ×2 (18:15→20:30)
[2025-08-02] MEDS ORDERED: REGLAN10 MG PO (20:24)
[2025-08-02] MEDS ORDERED: HYDROCODON-ACE1 EA10 PO (20:24)
[2025-08-02 21:24] VITALS: BP 142/94
--- NOTE | 2025-08-02 22:03 | EKG ---
[facility] [address] [facility] [place] [address] Signed Normal sinus rhythm Inferior infarct (cited on or before 06-JUL-2023) Cannot rule out Anterior infarct , age undetermined Abnormal ECG When compared with ECG of 30-JUL-2025 04:15, Serial changes of Inferior infarct present Confirmed by Sabino Simmons MD () on 08/02/2025 10:02:48 PM Electronically Signed By: SABINO SIMMONS MD 08/02/252202 PATIENT NAME: MONTSE GUTIERREZ Electrocardiogram DATE OF : [birth year] PHYSICIAN: SABINO SIMMONS MD REPORT #: [id number] REPORT IS CONFIDENTIAL AND NOT TO BE RELEASED WITHOUT AUTHORIZATION
== END 2025-08-02 21:24 | disposition home or self-care (01) ==
LOC: ED 14:51
PROVIDERS: Emergency Medicine
DX: E10.43 Type 1 diabetes mellitus with diabetic autonomic (poly)neuropathy (principal); K31.84 Gastroparesis; I20.9 Angina pectoris, unspecified; E78.5 Hyperlipidemia, unspecified; I10 Essential (primary) hypertension; Z79.4 Long term (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; Z79.899 Other long term (current) 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; Z79.82 Long term (current) use of aspirin; Z88.2 Allergy status to sulfonamides; Z88.0 Allergy status to penicillin; Z88.1 Allergy status to other antibiotic agents; Z88.5 Allergy status to narcotic agent; Z88.8 Allergy status to other drugs, medicaments and biological substances
CPT/HCPCS: 36415; 71045; 80053; 81001; 82010; 82803; 83690; 83735; 84484; 84703; 85025; 85610; 93005; 93010; 96374; 96375; 96376; 99285-25; J1171; J1200; J2405

== ENCOUNTER 2025-08-08 13:53 | Emergency (ER) | payer OTHER ==
[~2025-08-08] VITALS: Ht 149.9 cm; Wt 37.0 kg
[2025-08-08 14:33] LABS: BASOPHILS 0.8 % (0.1-1.2); EOSINOPHILS 1.2 % (0.7-5.8); LYMPHOCYTES 18.9 % (19.3-51.7); MCH 29.8 PG (25.6-32.2); MCHC 32.2 g/dL (32.2-35.5); MCV 92.6 fL (79.4-94.8); MONOCYTES 4.1 % (4.7-12.5); NEUTROPHILS 73.9 % (34.0-71.1); RBC 3.52 M/uL (3.93-5.22)
[2025-08-08 14:52] LABS: ALT (SGPT) 36.0 U/L (14-59); AST (SGOT) 34.0 U/L (15-37); GLOMERULAR FILTRATION RATE,EST 26.0 mL/min (>60); PROTEIN, TOTAL 9.4 g/dL (6.4-8.2); UREA NITROGEN 24.0 mg/dL (7-18)
[2025-08-08] MEDS ORDERED: LIDOCAINE 2% (VISCOUS) HCL 15 ML UDC MT ONE (15:15)
[2025-08-08] MEDS ORDERED: MAGNESIUM HYDROXIDE/AL HYDROX 30 ML CUP PO ONE (15:15)
[2025-08-08] MEDS ORDERED: FAMOTIDINE 20 MG/ 2 ML VIAL IV ONE (15:15)
[2025-08-08] MEDS ORDERED: HYDROmorphone HCL 1 MG/ML SYR IV ONE (15:45)
[2025-08-08] MEDS ORDERED: PRILOSEC OTC20 MG PO (16:13)
[2025-08-08] MEDS ORDERED: LORazepam 2 MG/ML VIAL IV ONE (16:15)
[2025-08-08 17:03] VITALS: BP 127/83
--- NOTE | 2025-08-09 10:46 | EKG ---
[facility] [address] [facility] [place] [address] Signed Sinus tachycardia Biatrial enlargement Inferior infarct (cited on or before 06-JUL-2023) Cannot rule out Anterior infarct (cited on or before 23-MAR-2024) Abnormal ECG When compared with ECG of 02-AUG-2025 16:57, No significant change was found Confirmed by Gianna Lopes DO ([id number]) on 08/09/2025 10:46:11 AM Electronically Signed By: GIANNA LOPES DO 08/09/25 1046 PATIENT NAME: MONTSE GUTIERREZ Electrocardiogram DATE OF : [birth year] PHYSICIAN: GIANNA LOPES DO REPORT #: [id number] REPORT IS CONFIDENTIAL AND NOT TO BE RELEASED WITHOUT AUTHORIZATION
== END 2025-08-08 17:04 | disposition home or self-care (01) ==
LOC: ED 13:53
PROVIDERS: Emergency Medicine
DX: R07.9 Chest pain, unspecified (principal); Z88.2 Allergy status to sulfonamides; Z88.1 Allergy status to other antibiotic agents; Z88.8 Allergy status to other drugs, medicaments and biological substances; Z79.899 Other long term (current) 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; Z79.82 Long term (current) use of aspirin
CPT/HCPCS: 36415; 71045; 80053; 83735; 84484; 85025; 85379; 93005; 93010; 96374; 96375; 99285-25; A9270; J1171; J1200; J2060

== ENCOUNTER 2025-08-09 03:16 | Inpatient (IN) | payer OTHER ==
[~2025-08-09] VITALS: Ht 149.9 cm; Wt 36.7 kg
[2025-08-09] VITALS (15 sets, daily range): BP systolic 118–160; BP diastolic 81–98
[2025-08-09] MEDS ORDERED: NITROGLYCERIN 0.4 MG SUBL SL PRN (03:30)
[2025-08-09] MEDS ORDERED: ASPIRIN 81 MG CHEW PO ONE (03:30)
[2025-08-09] MEDS ORDERED: FAMOTIDINE 20 MG/ 2 ML VIAL IV ONE (03:30)
[2025-08-09] MEDS ORDERED: LACTATED RINGER'S 1,000 ML IV ONE ×2 (03:30→04:30)
[2025-08-09] MEDS ORDERED: HYDROmorphone HCL 1 MG/ML SYR IV ONE (03:30)
[2025-08-09 03:38] LABS: BASOPHILS 0.6 % (0.1-1.2); EOSINOPHILS 1.2 % (0.7-5.8); LYMPHOCYTES 32.1 % (19.3-51.7); MCH 30.3 PG (25.6-32.2); MCHC 32.7 g/dL (32.2-35.5); MCV 92.9 fL (79.4-94.8); MONOCYTES 8.6 % (4.7-12.5); NEUTROPHILS 56.5 % (34.0-71.1); RBC 3.23 M/uL (3.93-5.22)
[2025-08-09 04:06] LABS: GLOMERULAR FILTRATION RATE,EST 29.0 mL/min (>60); PROTEIN, TOTAL 8.5 g/dL (6.4-8.2); UREA NITROGEN 23.0 mg/dL (7-18)
[2025-08-09] MEDS ORDERED: Insulin Regular, Human 100 UNIT/ML ML IV ONE (04:15)
[2025-08-09] MEDS ORDERED: LACTATED RINGER'S 1,000 ML IV SCH ×2 (04:30→10:00)
[2025-08-09] MEDS ORDERED: HYDROmorphone HCL 1 MG/ML SYR IV PRN ×3 (04:30→17:00)
[2025-08-09 04:34] LABS: AST (SGOT) 25.0 U/L (15-37)
[2025-08-09 04:34] LABS: BLOOD/HGB, URINE TRACE-L (Negative); KETONE, URINE TRACE (Negative); LEUK ESTERASE, URINE NEGATIVE (negative); NITRITE, URINE NEGATIVE (negative)
[2025-08-09 04:36] LABS: ALT (SGPT) 31.0 U/L (14-59)
[2025-08-09 04:39] LABS: EPITHELIAL CELLS, URINE SQUAMOUS 1+ /lpf (0-1+)
[2025-08-09 04:40] LABS: BACTERIA, URINE RARE /hpf (negative); CASTS, URINE NONE SEEN \\lpf; CRYSTALS, URINE NONE SEEN (0-1+); REFLEX CULTURE, URINE No (No)
[2025-08-09] MEDS ORDERED: Insulin Regular, Human 100 UNIT/ML ML SUB-Q SCH (08:00)
[2025-08-09] MEDS ORDERED: IBLOOD GLUCOSE TEST STRIP 1 EA TEST VI SCH ×2 (08:00→12:00)
[2025-08-09] MEDS ORDERED: IBLOOD GLUCOSE TEST STRIP 1 EA TEST XX PRN (10:00)
[2025-08-09] MEDS ORDERED: GLUCAGON,HUMAN RECOMBINANT 1 MG/ML VIAL SUB-Q PRN (10:00)
[2025-08-09] MEDS ORDERED: ACETAMINOPHEN 325 MG TAB PO PRN (10:00)
[2025-08-09] MEDS ORDERED: DEXTROSE 50% 50 ML SYR IV PRN ×2 (10:00)
[2025-08-09] MEDS ORDERED: DEXTROSE 5% 1,000 ML IV PRN (10:00)
[2025-08-09] MEDS ORDERED: PROCHLORPERAZINE EDISYLATE 10 MG/2 ML VIAL IV PRN (10:00)
[2025-08-09] MEDS ORDERED: PANTOPRAZOLE SODIUM 40 MG/10 ML VIAL IV SCH (10:06)
[2025-08-09] MEDS ORDERED: HEParin SOD (PORCINE) 5,000 UNIT/ML SDV SUB-Q SCH (10:07)
[2025-08-09] MEDS ORDERED: PHARMACY RENAL DOSE ADJUSTMENT 1 DOSE MISC PO SCH (12:00)
[2025-08-09] MEDS ORDERED: INSULIN LISPRO 100 UNIT/ML ML SUB-Q SCH (12:00)
[2025-08-09] MEDS ORDERED: INSULIN GLARGINE-YFGN 100 UNIT/ML ML SUB-Q SCH ×2 (21:00)
[2025-08-09] MEDS ORDERED: MELATONIN 3 MG TAB PO PRN (21:00)
[2025-08-10] VITALS (9 sets, daily range): BP systolic 121–127; BP diastolic 74–88
[2025-08-10 05:33] LABS: BASOPHILS 0.5 % (0.1-1.2); EOSINOPHILS 1.7 % (0.7-5.8); LYMPHOCYTES 33.5 % (19.3-51.7); MCH 30.1 PG (25.6-32.2); MCHC 32.3 g/dL (32.2-35.5); MCV 93.1 fL (79.4-94.8); MONOCYTES 7.8 % (4.7-12.5); NEUTROPHILS 55.9 % (34.0-71.1); RBC 2.46 M/uL (3.93-5.22)
[2025-08-10 05:48] LABS: ALT (SGPT) 22.0 U/L (14-59); AST (SGOT) 27.0 U/L (15-37); GLOMERULAR FILTRATION RATE,EST 41.0 mL/min (>60); PROTEIN, TOTAL 5.7 g/dL (6.4-8.2); UREA NITROGEN 14.0 mg/dL (7-18)
[2025-08-10] MEDS ORDERED: FERROUS SULFATE 325 MG TAB PO SCH (07:00)
[2025-08-10] MEDS ORDERED: ASPIRIN 81 MG CHEW PO SCH (08:00)
[2025-08-10] MEDS ORDERED: CALCIUM CARBONATE 500 MG CHEW PO SCH (08:00)
[2025-08-10] MEDS ORDERED: POTASSIUM CHLORIDE 10 MEQ TABCR PO ONE (08:30)
[2025-08-10] MEDS ORDERED: GABAPENTIN 300 MG CAP PO SCH (09:00)
[2025-08-10] MEDS ORDERED: PANTOPRAZOLE SODIUM 40 MG TABEC PO SCH (09:00)
[2025-08-10] MEDS ORDERED: METOPROLOL SUCCINATE 50 MG TABCR PO SCH (09:00)
[2025-08-10] MEDS ORDERED: CLOPIDOGREL BISULFATE 75 MG TAB PO SCH (09:00)
[2025-08-10] MEDS ORDERED: CYANOCOBALAMIN 1,000 MCG TAB PO SCH (09:00)
[2025-08-10] MEDS ORDERED: POTASSIUM CHLORIDE 40 MEQ,LIDOCAINE HCL 1% 40 MG in DEXTROSE 5% 250 ML IV ONE ×2 (09:00→13:30)
[2025-08-10] MEDS ORDERED: KETOROLAC TROMETHAMINE 15 MG/ML VIAL IV PRN (09:45)
[2025-08-10] MEDS ORDERED: HYDROmorphone HCL 1 MG/ML SYR IV PRN (09:45)
[2025-08-10] MEDS ORDERED: POTASSIUM CHLORIDE 10 MEQ TABCR ONE (10:59)
[2025-08-11 05:42] LABS: BASOPHILS 0.6 % (0.1-1.2); EOSINOPHILS 2.7 % (0.7-5.8); LYMPHOCYTES 38.6 % (19.3-51.7); MCH 30.0 PG (25.6-32.2); MCHC 31.4 g/dL (32.2-35.5); MCV 95.7 fL (79.4-94.8); MONOCYTES 9.2 % (4.7-12.5); NEUTROPHILS 48.3 % (34.0-71.1); RBC 2.33 M/uL (3.93-5.22)
[2025-08-11 05:48] VITALS: BP 116/78
[2025-08-11 05:57] LABS: ALT (SGPT) 18.0 U/L (14-59); AST (SGOT) 14.0 U/L (15-37); GLOMERULAR FILTRATION RATE,EST 38.0 mL/min (>60); PROTEIN, TOTAL 5.6 g/dL (6.4-8.2); UREA NITROGEN 14.0 mg/dL (7-18)
[2025-08-11 05:58] VITALS: BP 116/78
--- NOTE | 2025-08-11 07:24 | EKG ---
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
[2025-08-11 07:54] VITALS: BP 120/79
[2025-08-11] MEDS ORDERED: SODIUM FERRIC GLUCONAT/SUCROSE 125 MG in SODIUM CHLORIDE 0.9% 100 ML IV ONE (10:00)
[2025-08-11 11:18] LABS: ABO A
[2025-08-11 11:19] LABS: ANTIBODY SCREEN NEGATIVE; IS CROSSMATCH COMPATIBLE; RH POSITIVE
[2025-08-11 13:36] VITALS: BP 143/87
[2025-08-11 14:01] VITALS: BP 143/87
[2025-08-11] MEDS ORDERED: CEFPODOXIME PR100 MG PO (14:22)
== END 2025-08-11 14:45 | disposition home or self-care (01) | DRG 439 ==
LOC: ED 03:16 → CCU 04:34 → MS 04:34 → CCU 04:34 → MS 15:05
PROVIDERS: Internal Medicine; ADMIT Student in an Organized Health Care Education/Training Program; ATTEND Student in an Organized Health Care Education/Training Program
PROC: 30233N1 Transfusion of Nonautologous Red Blood Cells into Peripheral Vein, Percutaneous Approach (ICD-10-PCS; principal; 2025-08-09)
DX: K85.90 Acute pancreatitis without necrosis or infection, unspecified (principal); N17.9 Acute kidney failure, unspecified; H91.91 Unspecified hearing loss, right ear; E78.5 Hyperlipidemia, unspecified; I25.10 Atherosclerotic heart disease of native coronary artery without angina pectoris; E10.22 Type 1 diabetes mellitus with diabetic chronic kidney disease; I12.9 Hypertensive chronic kidney disease with stage 1 through stage 4 chronic kidney disease, or unspecified chronic kidney disease; N18.9 Chronic kidney disease, unspecified; D63.1 Anemia in chronic kidney disease; E10.65 Type 1 diabetes mellitus with hyperglycemia; Z32.01 Encounter for pregnancy test, result positive; Z96.41 Presence of insulin pump (external) (internal); Z98.890 Other specified postprocedural states; Z90.49 Acquired absence of other specified parts of digestive tract; Z86.14 Personal history of Methicillin resistant Staphylococcus aureus infection; Z86.79 Personal history of other diseases of the circulatory system; Z95.5 Presence of coronary angioplasty implant and graft; Z88.2 Allergy status to sulfonamides; Z88.8 Allergy status to other drugs, medicaments and biological substances; Z88.5 Allergy status to narcotic agent; Z79.891 Long term (current) use of opiate analgesic; Z79.899 Other long term (current) 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; Z79.82 Long term (current) use of aspirin; Z79.4 Long term (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; Z87.19 Personal history of other diseases of the digestive system; Z85.841 Personal history of malignant neoplasm of brain; Z86.74 Personal history of sudden cardiac arrest; Z85.6 Personal history of leukemia
CPT/HCPCS: 36415; 71045; 74177; 80053; 81001; 82010; 83690; 83735; 83880; 84484; 84702; 84703; 85025; 86850; 86900; 86901; 86922; 93005; 93010; A9270; J1171; J1200; J1644; J1815; J1885; J2405; J2470; J3480; J3490; J7060; J7121; P9016; Q0177; Q9967

== ENCOUNTER 2025-08-22 08:34 | Inpatient (IN) | payer OTHER ==
[~2025-08-22] VITALS: Ht 149.9 cm; Wt 36.7 kg
[~2025-08-22 08:34] MED LIST changes: +CEFPODOXIME PR100 MG PO
[2025-08-22 09:14] LABS: BASOPHILS 0.7 % (0.1-1.2); EOSINOPHILS 1.7 % (0.7-5.8); LYMPHOCYTES 37.0 % (19.3-51.7); MCH 29.9 PG (25.6-32.2); MCHC 33.0 g/dL (32.2-35.5); MCV 90.6 fL (79.4-94.8); MONOCYTES 6.3 % (4.7-12.5); NEUTROPHILS 53.7 % (34.0-71.1); RBC 3.84 M/uL (3.93-5.22)
[2025-08-22 09:44] LABS: ALT (SGPT) 26 U/L (14-59); AST (SGOT) 19 U/L (15-37); GLOMERULAR FILTRATION RATE,EST 28 mL/min (>60); PROTEIN, TOTAL 7.9 g/dL (6.4-8.2); UREA NITROGEN 26 mg/dL (7-18)
[2025-08-22] MEDS ORDERED: HYDROmorphone HCL 1 MG/ML SYR IV ONE (10:00)
[2025-08-22] MEDS ORDERED: SODIUM CHLORIDE 0.9% 1,000 ML IV ONE (10:00)
[2025-08-22] MEDS ORDERED: POTASSIUM CHLORIDE 10 MEQ/100 ML BAG IV SCH ×2 (10:15)
[2025-08-22] MEDS ORDERED: POTASSIUM CHLORIDE 20 MEQ/15 ML CUP PO ONE (10:15)
[2025-08-22] MEDS ORDERED: SODIUM CHLORIDE 0.9% 1,000 ML IV SCH (10:30)
[2025-08-22] MEDS ORDERED: POTASSIUM CHLORIDE 40 MEQ,LIDOCAINE HCL 1% 40 MG in DEXTROSE 5% 250 ML IV ONE (11:00)
[2025-08-22] MEDS ORDERED: IBLOOD GLUCOSE TEST STRIP 1 EA TEST XX PRN (12:30)
[2025-08-22] MEDS ORDERED: GLUCAGON,HUMAN RECOMBINANT 1 MG/ML VIAL SUB-Q PRN (12:30)
[2025-08-22] MEDS ORDERED: DEXTROSE 5% 1,000 ML IV PRN (12:30)
[2025-08-22] MEDS ORDERED: LACTATED RINGER'S 1,000 ML IV SCH (12:30)
[2025-08-22] MEDS ORDERED: DEXTROSE 50% 50 ML SYR IV PRN ×2 (12:30)
[2025-08-22] MEDS ORDERED: HYDROmorphone HCL 1 MG/ML SYR IV PRN (12:45)
--- NOTE | 2025-08-22 13:05 | NUR ---
medications reconciled
[2025-08-22 13:42] VITALS: BP 125/86
[2025-08-22] MEDS ORDERED: Insulin Regular, Human 100 UNIT/ML ML SUB-Q SCH (14:00)
[2025-08-22] MEDS ORDERED: IBLOOD GLUCOSE TEST STRIP 1 EA TEST VI SCH (14:00)
[2025-08-22 14:35] LABS: BLOOD/HGB, URINE SMALL (Negative); KETONE, URINE NEGATIVE (Negative); LEUK ESTERASE, URINE NEGATIVE (negative); NITRITE, URINE NEGATIVE (negative)
[2025-08-22 14:42] LABS: BACTERIA, URINE NONE SEEN /hpf (negative); CASTS, URINE GRANULAR 1+ \\lpf; CRYSTALS, URINE NONE SEEN (0-1+); EPITHELIAL CELLS, URINE SQUAMOUS 1+ /lpf (0-1+); REFLEX CULTURE, URINE No (No)
[2025-08-22] MEDS ORDERED: PANTOPRAZOLE SODIUM 40 MG/10 ML VIAL IV SCH (15:01)
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
--- NOTE | 2025-08-22 15:14 | EKG ---
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
[2025-08-22 15:24] LABS: CHOLESTEROL/HDL RATIO 7.0; NON-HDL CHOLESTEROL 265.00
[2025-08-22] MEDS ORDERED: MICONAZOLE 2% VAGINAL SCH (15:30)
--- NOTE | 2025-08-22 15:30 | NUR ---
REPORT RECIEVED FROM BLAIRE SULLIVAN. PATIENT IS SITTING UP IN BED ON HER PHONE AND IS WITHOUT ANY NEEDS AT THIS TIME. CALL LIGHT AND PERSONAL BELONGINGS ARE WITHIN REACH.
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
--- NOTE | 2025-08-22 16:30 | NUR ---
PATIENT ASSESSMENT COMPLETED. PATIENT IS ALERT AND ORIENTED. PATIENT SITTING UP IN BED WATCHING TV. IV FLUIDS INFUSING PER ORDER. PATIENT MEDICATED PER EMAR. PATIENT IS WITHOUT FURTHER NEEDS AT THIS TIME. CALL LIGHT AND PERSONAL BELONGINGS ARE WITHIN REACH.
--- NOTE | 2025-08-22 17:14 | NUR ---
DR LOPES NOTIFIED OF PATIENT'S POSTIVE HCG QUANT. MD WITH NO FURTHER ORDERS AT THIS TIME. CALL ENDED.
--- NOTE | 2025-08-22 17:20 | NUR ---
HOURLY ROUNDING PATIENT SITTING UP IN BED, WARM BLANKET HAS BEEN GIVEN. NO REQUEST FROM PATIENT AT THIS TIME BESIDE PAIN RX. CALL LIGHT HAS BEEN PLACED WITHIN REACH
--- NOTE | 2025-08-22 17:24 | NUR ---
PATIENT CALLED FOR WARM BLANKET. GLASS BULB MACHINE ADJUSTER IN ROOM PROVIDING BLANKET.
[2025-08-22 18:22] VITALS: BP 137/81
--- NOTE | 2025-08-22 18:22 | NUR ---
CPOX PLACED ON PATIENT FOR MEDICATION USE WITH 100 O2 SAT ON RA . PATIENT SITTING UP IN BED AWAKE AND ALERT ON PHONE. C/O "ITCHINESS AND THAT OTHER GIRL SAID SHE WOULDNT DO ANYTHING", PRIMARY NURSE NOTIFIED. NO OTHER NEEDS IDENTIFIED AT THIS TIME. CALL LIGHT IN REACH.
--- NOTE | 2025-08-22 18:25 | NUR ---
Pt used call light to ask "are you guys going to do anything about this itching"?. Advised pt that I will notify her primary RN.
--- NOTE | 2025-08-22 19:57 | NUR ---
VERBAL REPORT RECEIVED BY BLAIRE ADAMES. PATIENT IS SITTING UP IN BED WITH FAMILY AT BEDSIDE. PATIENT COMPLAINS OF ITCHING AND REQUESTS BENADRYL. THIS RN CALLS MD REGARDING PATIENTS REQUEST, NEW ORDERS PLACED. THIS RN NOTFIES PATIENT OF NEW ORDERS.
--- NOTE | 2025-08-22 20:00 | NUR ---
THIS RN TO RESUME CARE, REPORT RECEIVED FROM BLAIRE GILES.
--- NOTE | 2025-08-22 21:02 | NUR ---
Awake, alert and oriented, up to BRP, voided clear yellow urine, denies sob with exertion, Pulse increaed to 98 when walking back, tele#[address] No c/o pain. slightly unsteady gait but much more steady than yesterday
--- NOTE | 2025-08-22 21:15 | NUR ---
VS TAKEN, I&OS CHARTED, PT REPORTS PAIN IN ABDOMEN, PRN PAIN MED GIVEN. PTS ASSESSMENT COMPLETE, NO OTHER NEEDS AT THIS TIME, CALL LIGTH WITHIN REACH.
[2025-08-22 21:29] VITALS: BP 146/93
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
--- NOTE | 2025-08-22 22:30 | NUR ---
PTS IV SALINE LOCKED D/T REQUEST TO GET INTO OWN GOWN. PT BACK TO BED WITH IV FLUIDS RUNNING PER ORDER, CPOX AT BEDSIDE PER ORDER. PT REQUESTED SOMETHING FOR SLEEP, PRN MELATONIN ORDERED THROUGH NIO.
[2025-08-22] MEDS ORDERED: MELATONIN 3 MG TAB PO PRN (23:15)
--- NOTE | 2025-08-22 23:25 | NUR ---
PT REQUESTING SOMETHING FOR SLEEP, PRN SLEEP MED GIVEN. HEAT PACK GIVEN. NO OTHER NEEDS AT THIS TIME, CALL LIGHT WITHIN REACH.
[2025-08-22 23:47] VITALS: BP 146/93
[2025-08-23] VITALS (11 sets, daily range): BP systolic 125–147; BP diastolic 84–97
--- NOTE | 2025-08-23 01:45 | NUR ---
CHARGE AT BEDSIDE ASSISTING PT TO THE RESTROOM, EARTH SCIENCE TECHNICIAN AT BEDSIDE ASSISTING WITH VITALS.
--- NOTE | 2025-08-23 02:10 | NUR ---
PT REPORTS PAIN IN ABDOMEN AND ITCHINESS, PRN PAIN MED AND BENADRYL GIVEN. NEW CPOX STICKER PLACED D/T STICKER COMING OFF. NO OTHER NEEDS AT THIS TIME, CALL LIGTH WITHIN REACH.
--- NOTE | 2025-08-23 03:44 | NUR ---
PTS IV PUMP ALARMING, IV ASSESSED. NEW FLUIDS HUNG PER ORDER. NO OTHER NEEDS AT THIS TIME, CALL LIGHT WITHIN REACH, CPOX ON AT BEDSIDE PER ORDER.
--- NOTE | 2025-08-23 05:00 | NUR ---
PT ASSISTED TO THE BATHROOM WITH SBA AND LTM, BACK TO BED. VS TAKEN, CPOX ON, IV FLUIDS INFUSING PER ORDER. LIGHTS TURNED OFF PER PT REQUEST. NO OTHER NEEDS AT THIS TIME, CALL LIGHT WITHIN REACH.
[2025-08-23 05:23] LABS: BASOPHILS 0.6 % (0.1-1.2); EOSINOPHILS 1.7 % (0.7-5.8); LYMPHOCYTES 37.3 % (19.3-51.7); MCH 29.8 PG (25.6-32.2); MCHC 32.4 g/dL (32.2-35.5); MCV 92.2 fL (79.4-94.8); MONOCYTES 5.8 % (4.7-12.5); NEUTROPHILS 54.1 % (34.0-71.1); RBC 3.32 M/uL (3.93-5.22)
[2025-08-23 05:47] LABS: ALT (SGPT) 23.0 U/L (14-59); AST (SGOT) 22.0 U/L (15-37); GLOMERULAR FILTRATION RATE,EST 43.0 mL/min (>60); PHOSPHORUS, INORGANIC 3.3 mg/dL (2.5-4.9); PROTEIN, TOTAL 6.6 g/dL (6.4-8.2); UREA NITROGEN 14.0 mg/dL (7-18)
--- NOTE | 2025-08-23 06:11 | NUR ---
PT LAYING IN BED, EYES CLOSED, UNLABORED BREATHING. CPOX ON AT BEDSIDE, CALL LIGHT WITHIN REACH.
--- NOTE | 2025-08-23 06:54 | NUR ---
PT REPORTS 9/10 ABDOMINAL PAIN, PRN PAIN MED GIVEN. PT REPORTS ITCHING, PRN BENADRYL GIVEN. NO OTHER NEEDS AT THIS TIME, CALL LIGHT WITHIN REACH.
--- NOTE | 2025-08-23 07:25 | NUR ---
RECEIVED VERBAL REPORT FORM BLAIRE MCLEAN. PATIENT LAYING IN BED AWAKE AND ALERT WATCHING TV. CPOX AT BEDSIDE 97% RA. PATIENT DENIES NEEDS AT THIS TIME. CALL LIGHT IN REACH.
--- NOTE | 2025-08-23 07:44 | NUR ---
TC TO DR LOPES FOR CBG OF 401. VERBAL ORDER OF 5 EXTRA UNITS ONE TIME OF HUMULIN R FOR TOTAL OF 16 UNITS AND ORDERED LONG ACTING.
[2025-08-23] MEDS ORDERED: Insulin Regular, Human 100 UNIT/ML ML SUB-Q ONE (08:00)
--- NOTE | 2025-08-23 08:26 | NUR ---
SCHEDULED MEDICATIONS GIVEN PER EMAR AND DR ORDERS. PATIENT AWAKE AND ALERT LAYING IN BED, HEARING AIDS PLACED AND ABLE TO ANSWER QUESTIONS APPROPRIATLEY. ASSESSMENT COMPLETED. PATIENT UP TO RESTROOM WITH STBY ASSIST WITH MOM, STEADY GAIT. IVF INFUSING WITHOUT DIFFICULTY. CPOX ON 97%RA. PATIENT DENIES NEEDS AT THIS TIME. CALL LIGHT IN REACH.
[2025-08-23] MEDS ORDERED: INSULIN GLARGINE-YFGN 100 UNIT/ML ML SUB-Q SCH (09:00)
--- NOTE | 2025-08-23 09:13 | NUR ---
HOURLY ROUNDING PATIENT LAYING IN BED, COMPLAIN OF BEING TIREDALMOST DROWSY LIKE. MOTHR IS AT BEDSIDE. NO REQUEST FROM PATIENT AT THIS TIME. CALL LIGHT HAS BEEN PLACED WITHIN REACH. PATIENT DID NOT LIKE THE CLEARS TRAY THAT WAS GIVEN.
--- NOTE | 2025-08-23 10:09 | NUR ---
Patient reports 8/10 abdominal pain. Admin dilaudid 1mg slow iv push. Patient provided with diet soda per her request, no reported nausea.
--- NOTE | 2025-08-23 10:31 | NUR ---
UR CLINICAL REVIEW: MCG-PER MCG REVIEW MEETS INPT FOR PANCREATITIS WITH NEED FOR IV PAIN CONTROL, IVF AND MONITORING BASIC DMAP INPT 08/22/25 @ 1232 ORDER MATCHES REG NO AUTH REQUIRED PER MEDICAID GUIDELINES DISCHARGE TO HOME WHEN STABLE DC REVIEW 08/24/25
[2025-08-23] MEDS ORDERED: PHARMACY RENAL DOSE ADJUSTMENT 1 DOSE MISC PO SCH (12:00)
--- NOTE | 2025-08-23 13:24 | NUR ---
NEW IVF INFUSING WITHOUT DIFFICULTY. PATIENT SITTING UP IN BED AWAKE AND ALERT C/O 7/10 PAIN. NEW PULSE OX STICKER PLACED, CPOX AT BEDSIDE 97% RA. FOCUSED ASSESSMENT COMPLETED. PATIENT DENIES FURTHER NEEDS AT THIS TIME.
--- NOTE | 2025-08-23 13:38 | NUR ---
HOURLY ROUNDING PATIENT LAYING DOWN IN BED, SAYS SHES JUST FELING TIRED, LAUGHING WATCHING TV. MOTHER AT BEDSIDE. NO REQUEST FROM PATIENT AT THIS TIME. CALL LIGHT HAS BEEN PLACED WITHIN REACH
--- NOTE | 2025-08-23 14:49 | NUR ---
PATIENT CALLED REQUESTING PAIN MEDICATIONS. PATIENT STATES PAIN IS 7/10 IN THE ABDOMEN. FAMILY JUST LEFT. PATIENT SITTING UP COLORING RIGHT NOW. IV FLUIDS GOING.
--- NOTE | 2025-08-23 15:11 | NUR ---
PATIENT GIVEN APPLE JUICE AFTER CBG 0F 84 AND ANGÉLICA STATES SHE IS FEELING "JITTERY". PATIENT ABLE TO SLOWLY DRINK JUICE. PATIENT DENIES FURTHER NEEDS AT THIS TIME. CALL LIGHT IN REACH.
--- NOTE | 2025-08-23 15:51 | NUR ---
PRN MEDICATIONS GIVEN PER EMAR ORDER FOR ITCHING PER PATIENT REQUEST. PATIENT SITTING UP IN BED TALKING ON PHONE. PATIENT DENIES FURTHER NEEDS AT THIS TIME. CALL LIGHT IN REACH.
--- NOTE | 2025-08-23 16:24 | NUR ---
PATIENT IS SITTING IN BED WITH EYES OPEN AND RESPIRATIONS ARE EVEN AND UNLABORED. PATIENT IS ON HER PHONE. CALL LIGHT AND PERSONAL BELONGINGS ARE WITHIN REACH.
--- NOTE | 2025-08-23 17:01 | NUR ---
TC TO DR LOPES, PATIENT BS OF 83 GIVEN JUICE THAT WAS REFUSED, REPEAT CBG WAS 80, DR LOPES ORDERED ADVANCE TOLERATED AND TO START WITH BROTH OR SOUP. NO OTHER ORDERS AT THIS TIME.
--- NOTE | 2025-08-23 17:25 | NUR ---
PATIENT PRESSED THE CALL LIGHT AT THIS TIME. PATIENT EXPRESSED FRUSTRATION WITH NO BEING ABLE TO EAT AT THIS TIME. PATIENT EDUCATED ON THE MD ORDER TO ADVANCE HER DIET TOLERATED. PATIENT ASKED FOR A SANDWICH BOX AT THIS TIME. RN EDUCATED ON A FULL LIQUID DIET AND THEN GOING FROM THERE. PATIENT EXPRESSED UNDERSTANDING. PUDDING PROVIDED TO THE PATIENT AT THIS TIME. CALL LIGHT AND PERSONAL BELONGINGS ARE WITHIN REACH.
--- NOTE | 2025-08-23 18:02 | NUR ---
HOURLY ROUNDING PATIENT COLORING REQUEST WARM BLANKET. NO FURTHER REQUEST FROM PATIENT AT THIS TIME
--- NOTE | 2025-08-23 18:09 | NUR ---
PATIENT LAYING IN BED AWAKE ON PHONE. IVF INFUISNG WITHOUT DIFFICULTY. CPOX ON 100% RA. MOM IN ROOM. PATIENT IS STILL DEMANDING CRACKERS AND MORE SOLID FOODS. NO OTHER NEEDS AT THIS TIME. CALL LIGHT IN REACH.
--- NOTE | 2025-08-23 19:35 | NUR ---
RECEIVED REPORT FROM BLAIRE CLAYTON. PT LAYING IN BED WATCHING TV, NO NEEDS REPORTED AT THIS TIME. CALL LIGHT WITHIN REACH,W CYNDI UPDATED.
--- NOTE | 2025-08-23 20:16 | NUR ---
VS TAKEN, PT ASSISTED TO THE BATHROOM, ASSESSMENT COMPLETE, BS TAKEN. PT REPORTS PAIN 8/10 ABDOMINAL PAIN, PRN PAIN MED GIVEN. NO OTHER NEEDS AT THIS TIME, CALL LIGHT WITHIN REACH.
[2025-08-23] MEDS ORDERED: MELATONIN 3 MG TAB PO PRN (21:00)
--- NOTE | 2025-08-23 21:45 | NUR ---
PT LAYING IN BED, EYES CLOSED, UNLABORED BREATHING, CPOX AT BEDSIDE, IV FLUIDS INFUSING PER ORDER.
--- NOTE | 2025-08-23 23:11 | NUR ---
PT LAYING IN BED EYES CLOSED, UNLABORED BREATHING. CPOX AT BEDSIDE, CALL LIGHT WITHIN REACH.
[2025-08-24] VITALS (10 sets, daily range): BP systolic 115–134; BP diastolic 71–84
--- NOTE | 2025-08-24 00:39 | NUR ---
CALL LIGHT ANSWERED. SBA TO THE BATHROOM AND BACK TO BED. PATIENT STATED IM IN A LITTLE BIT OF PAIN. NO OTHER NEEDS AT THIS TIME. PRIMARY RN NOTIFIED.
--- NOTE | 2025-08-24 00:40 | NUR ---
PT REPORTING 8/10 ABDOMINAL PAIN, PRN PAIN MED GIVEN. PT REPORTS SHE IS STILL HAVING SCANT AMOUNT OF BLOOD, PT CHENGES DELGADO PADS ON HER OWN PER PT REQUEST. NO OTHER NEEDS AT THIS TIME, CALL LIGHT WITHIN REACH.
--- NOTE | 2025-08-24 01:40 | NUR ---
BS TAKEN, PT REPORTS NO OTHER NEEDS AT THIS TIME. CPOX AT BEDSIDE PER ORDER, CONTINUOUS FLUIDS RUNNING PER ORDER.
--- NOTE | 2025-08-24 02:14 | NUR ---
PT DESATS TO 84% WHEN SLEEPING, REFUSES NASAL CANNULA, NO OTHER NEEDS AT THIS TIME, CALL LIGHT WITHIN REACH.
--- NOTE | 2025-08-24 03:29 | NUR ---
PATIENT CALLED. SBA TO THE BATHROOM TO VOID 500ML CLEAR YELLOW URINE. PATIENT IS BACK IN BED. ICE WATER, ICE CHIPS, SHIRA DIET, CHAP LIPS AND WARM PACK PROVIDED PER PATIENT. PATIENT STATED LET MY RN KNOW THAT PAIN IS BACK.
--- NOTE | 2025-08-24 03:50 | NUR ---
PT REPORTING ITCHING, PRN BENADRYL GIVEN. NO OTHER NEEDS REPORTED, CALL LIGHT WITHIN REACH, PT ON PHONE APPEARS TO NOT HAVE ANY DISTRESS. CPOX ON AT BEDSIDE, IV FLUIDS RUNNING PER ORDER.
--- NOTE | 2025-08-24 04:48 | NUR ---
PT REPORTING PAIN 9/10, EDUCATED PT THE PAIN IS FROM EATING AND NOT LETTING PANCREAS REST. PT UNDERSTANDS, PT BACK ON NPO D/T NOT TOLERATING PAIN. PRN DILAUDID GIVEN, PTS CPOX SHOWS O2 DROP TO 84% WHEN PT FALLS ASLEEP, 2L NC PLACED. WATER/JUICE AT BEDSIDE AWAY FROM PT, NPO SIGN ON DOOR. NO OTHER NEEDS AT THIS TIME, CALL LIGHT WITHIN REACH.
[2025-08-24 05:31] LABS: BASOPHILS 0.4 % (0.1-1.2); EOSINOPHILS 3.2 % (0.7-5.8); LYMPHOCYTES 31.6 % (19.3-51.7); MCH 30.0 PG (25.6-32.2); MCHC 32.5 g/dL (32.2-35.5); MCV 92.3 fL (79.4-94.8); MONOCYTES 8.9 % (4.7-12.5); NEUTROPHILS 55.7 % (34.0-71.1); RBC 3.00 M/uL (3.93-5.22)
[2025-08-24 05:56] LABS: ALT (SGPT) 152.0 U/L (14-59); AST (SGOT) 550.0 U/L (15-37); GLOMERULAR FILTRATION RATE,EST 43.0 mL/min (>60); PROTEIN, TOTAL 6.0 g/dL (6.4-8.2); UREA NITROGEN 8.0 mg/dL (7-18)
--- NOTE | 2025-08-24 06:04 | NUR ---
PTS VS TAKEN, PT DROWSY, SATS DROPPING TO 84% WHEN PT SLEEPING, PT NOT COMPLIANT WITH OXYGEN. PTS SATS UP WHEN MORE AWAKE. NO OTHER NEEDS AT THIS TIME, CALL LIGHT WITHIN REACH.
--- NOTE | 2025-08-24 08:16 | NUR ---
Patient awake, alert and oriented x3, no acute distress. Patient denies nausea at this time. Patient reports 5/10 abdominal pain, admin dilaudid 1mg slow iv push. Patient denies further needs.
[2025-08-24 08:45] LABS: INR 1.04 (0.80-1.30); PROTIME 12.9 Sec (11.2-14.2)
[2025-08-24] MEDS ORDERED: PANTOPRAZOLE SODIUM 40 MG TABEC PO SCH (09:00)
[2025-08-24] MEDS ORDERED: PANTOPRAZOLE SODIUM 40 MG/10 ML VIAL IV SCH (09:00)
--- NOTE | 2025-08-24 09:11 | NUR ---
hourly rounding patient laying in bed, changed cpox finger, patient o2 drops when laying down, sitting up she seems to be doing fine. no request from patient at this time. call light has been placed within reach.
[2025-08-24] MEDS ORDERED: MAGNESIUM SULFATE 2 GM/50 ML BAG IV ONE (09:30)
--- NOTE | 2025-08-24 09:55 | NUR ---
PT CALL LIGHT ON X2, MARTA IAM ANSWERED, INITIALLY PATIENT WANTED TO EAT, INFORMED THAT MD WILL BE IN TO SEE HER. THEN PT CALLED BACK 2ND TIME AND PT TOLD MARTA THAT SHE WANTED TO LEAVE AMA. THIS RN ENTERS ROOM WITH FORM TO SEE WHAT IS GOING ON AND PT STATES SHE DOES NOT WANT TO LEAVE AGAINST DR ORDERS JUST WANTS TO DRINK WATER THIS MORNING. PT INFORMED HER LABS WORSENED AND MD NEEDS TO REVIEW ULTRASOUND, INFORMED I WOULD LET ME KNOW HER WISHES AND HE WILL REVIEW TESTS AND COME IN WITH A POC. PT STATES SHE JUST WANTS TO GET BETTR AND DOES NOT WANT TO LEAVE AMA. I DID HAVE A SG CONVERSATION WITH HER ABOUT NOT THROWING AMA AROUND TO GET THE THINGS SHE WANTS, ITS MANIPULATION AND UNFORTUNATELY WE ARE HERE TO TREAT HER MEDICALLY AND SHE MUST UNDERSTAND SHE DOES NOT DICTATE THE MEDICAL CARE WE CAN PROVIDE, PT WAS NOT CRYING OR TEARFUL AND STATES SHE JUST WANTS TO EAT/DRINK, PT AGAIN WAS EXPLAINED THE COURSE OF WHY SHE IS NPO, PAIN INCREASED LASTNIGHT, NPO WAS INSTATED SHE WAS REQUESTING DILAUDID PER LUMBER PILER. WE ARE WAITING ON TEST RESULTS AND MD WILL SEE HER. PT DID NOT LEAVE AT THIS TIME, LEFT IN THE ROOM WITH IV FLUIDS INFUSING AT THIS TIME.
--- NOTE | 2025-08-24 10:05 | NUR ---
NO KNOWN CM NEEDS, DC HOME WHEN MEDICALLY READY.
--- NOTE | 2025-08-24 10:12 | NUR ---
Dr. Vega in to see patient at this time. Per Dr. Vega's verbal report, pt can have sips of water for comfort.
--- NOTE | 2025-08-24 10:28 | NUR ---
DC REVIEW: MEDICAL NON COMPLIANCE WITH MULTIPLE ADMISSIONS NOTED BARRIER TO DC. EDUCATION AND RESOURCES PROVIDED. FOLLOW UP APPOINT SCHEDULES AT DISCHARGE DISCHARGE TO HOME ADD: 1-2 DAYS PATIENT REMAINS NPO NO ACTION REQUIRED
--- NOTE | 2025-08-24 11:46 | NUR ---
Iv to left hand removed to inability to flush. Catheter tip intact.
--- NOTE | 2025-08-24 11:55 | NUR ---
Patient requesting pain medication for 7/10 abdominal pain. Admin dilaudid 1mg slow iv push. Patient's mother and friend remains at bedside. Philip RN in room with this RN. Patient denies further needs, call light within pt reach.
--- NOTE | 2025-08-24 12:12 | NUR ---
Patient requesting benadryl for c/o itching. Current order is for po, will call Dr. Vega.
--- NOTE | 2025-08-24 12:13 | NUR ---
PER PRIMARY RN, PT REQUESTING BENADRYL DUE TO ITCHING AFTER GETTING THE DILUADID. THIS REQUEST WAS AFTER MOM LEFT HOSPITAL. ONLY ORDER WAS ORAL, NOTIFIED VIA PHONE, CHANGED ORDERS TO IV BENDARYL 25MG Q6P. PRIMARY RN UPDATED.
--- NOTE | 2025-08-24 12:27 | NUR ---
Patient reports itching. Admin benadryl 25mg slow iv push. Patient denies further needs. MARTA Wilder in room with this RN.
--- NOTE | 2025-08-24 13:32 | NUR ---
INTO HELP METAL FURNACE OPERATOR WITH VITALS AND BLOOD SUGAR CHECK. PATIENT IS UNABLE TO HOLD HER EYES OPEN. DOES NOT RESPOND TO CONVERSATION. ADVISED PATIENT THAT WE WERE GOING TO DO A BLOOD SUGAR CHECK, NO RESPONSE. THEN ASKED PATIENT TO GIVE US A FINGER THAT SHE WOULD LIKE US TO USE. PATIENT SLOWLY HELD UP FINGER AND BEFORE DOING THE FINGER STICK SHE SLOWLY PUT IT BACK DOWN ON THE BED. PATIENT NEVER OPENED HER EYES. VITALS DONE WNL. PRIMARY NURSE ADVISED.
--- NOTE | 2025-08-24 14:34 | NUR ---
Patient resting in bed, eyes closed, respirations non labored. Patient has no distress. CPOX in place, sp02 93% on room air, respirations non labored. Call light within reach.
--- NOTE | 2025-08-24 15:17 | NUR ---
This RN accompanied Primary RN Deysi in to this pt's room for pain med administration at this time. Pt reports her pain is 8 out of 10 in her abdomen and that she has just a little bit of nausea. Pt also states she is itchy. Pt would like a hot pack to help with the itching at this time as it is too early for benadryl. New bag of fluids spiked and hung, administered at ordered rate per emar. Pt states that her mom told her that "ever since I was a baby" dilaudid "makes me itchy" and they used to "give me benadryl". Side rails up x4, call light in reach. Pt denies further needs at this time.
--- NOTE | 2025-08-24 15:24 | NUR ---
Patient reports mild nausea, she states she does not feel ready to drink fluids as of yet. No current needs, personal supplies and call light within reach.
--- NOTE | 2025-08-24 16:51 | NUR ---
Patient up to walk the med surg floor.
--- NOTE | 2025-08-24 18:11 | NUR ---
PT CALL LIGHT ON, REQUESTING SOME ASSISTANCE. PT WANTED ASSISTANCE UP INTO CHAIR, ABLE TO GET UP INDEPENDENTLY INTO CHAIR, NEEDED ASSISTANCE WITH LINES. BEDDING CHANGED TO BED, RASHID RN AND BENITA RN INTO ROOM TOGETHER. CALL LIGHT WITHIN REACH, ALONG WITH BEDSIDE TABLE. PT DENIES ANY OTHER NEEDS, BLANKET WHILE UP IN CHAIR. ALL PT CARE NEEDS MET AT THIS TIME.
--- NOTE | 2025-08-24 18:26 | NUR ---
Per Dr. Vega, patient can have small amounts of ice chips.
--- NOTE | 2025-08-24 18:48 | NUR ---
Admin benadryl 25mg iv for c/o itching. Krysta RN in room with this RN.
--- NOTE | 2025-08-24 18:49 | NUR ---
PATIENT CALLED NURSE STATION ASKING FOR MORE PAIN MEDICATION. THIS NURSE INTO ROOM WITH ANOTHER RN. PATIENT UP IN CHAIR. PATIENT REQUESTING MORE PAIN MEDICATIONS. THIS NURSE EDUCATED PATIENT THAT SHE JUST ASKED TO START ICE CHIPS SO WE CAN LOOK AND SEE IF SHE IS DUE FOR PAIN MEDICATIONS BUT THAT WE WILL NEED TO START THE ORAL ONES. PATIENT THEN ASKED WHEN SHE COULD HAVE THE BENADRYL. PATIENT ADVISED WE WOULD CHECK. PATIENT HAS VERY VERY DRY SKIN SO LOTION WAS GIVEN TO PATIENT TO ALSO TRY. PATIENT DID NOT ITCH WHILE IN THE ROOM. PATIENT ASKED HOW LONG SHE HAS TOLERATE ICE CHIPS BEFORE SHE CAN EAT. PATIENT ADVISED WE WILL NEED TO DO ICE CHIPS THROUGH THE NIGHT AND SEE HOW SHE DOES. PATIENT STATES SHE IS NOT HAVING THE PANCREAS PAIN ANYMORE SHE IS JUST HAVING RUQ PAIN 5/10. ADVISED PATIENT THAT IT MIGHT BE HELPFUL TO GET UP AND WALK MORE DURING THE DAY INSTEAD OF BEING IN BED AND GET EVERYTHING MOVING. PATIENT AGREES TO PLAN. PRIMARY NURSE ADVISED OF REQUEST FOR BENADRYL AND PAIN MEDICATIONS.
--- NOTE | 2025-08-24 19:37 | NUR ---
RECEIVED REPORT FROM BLAIRE ZIMMERMAN. PT RESTING IN BED, AWAKENS UPON RN'S ENTERING ROOM. REPORTS ONGOING ABD PAIN, STATES HAS NOT BEEN EATING ICE CHIPS. PT QUICKLY BACK TO SLEEP.
--- NOTE | 2025-08-24 19:50 | NUR ---
PT RESTING IN BED DOING PUZZLES. VSS. ORIENTED X 4. REPORTS 7/10 RIGHT ABD PAIN, PRN IV DILAUDID ADMINISTERED. LSC, CPOX IN PLACE. HRR. BTA, ABD TENDER TO RIGHT SIDE PALPATION. PT IS NPO EXCEPT FEW ICE CHIPS BUT FREQENTLY REQUESTS FOOD/DRINK. DENIES NAUSEA. VOIDS WNL. RAC IV INFUSING LR, WNL. REFUSED SCD PLACEMENT FOR HS. BG 76, WILL INFORM MD. PT PLEASANT AND COOPERATIVE FOR STAFF. CALL LIGHT WITHIN REACH.
--- NOTE | 2025-08-24 20:20 | NUR ---
DR. LOPES NOTIFIED OF PT'S BG OF 76, INSTRUCTED TO USE HYPOGLYCEMIA PROTOCOL. ALSO RECEIVED ORDER TO D/C ADAT ORDER. NEW ORDER PLACED FOR PRN HYDROXYZINE PER PT REQUEST.
--- NOTE | 2025-08-24 21:40 | NUR ---
PT GIVEN PRN VISTARIL PER REQUEST AND C/O ANXIETY. PT ALSO REQUESTS PRN BENADRYL FOR ITCHING-INFORMED TOO EARLY FOR ANOTHER DOSE. PT ENC TO USE LOTION AT BEDSIDE.
--- NOTE | 2025-08-24 22:41 | NUR ---
PT CALLED MULTIPLE TIMES FOR PAIN MED DESPITE BEING TOLD IT WAS A LITTLE TOO EARLY. PT ON HER PHONE VISITING W/ FRIENDS AND DOING HER CROSSWORD PUZZLES.
--- NOTE | 2025-08-25 00:48 | NUR ---
PT SLEEPING SOUNDLY, APPEARS COMFORTABLE. HOB ELEVATED. IVF INFUSING.
--- NOTE | 2025-08-25 01:32 | NUR ---
BG 71. PT SLEEPING SOUNDLY. PRN D50 ADMINISTERED PER HYPOGLYCEMIA PROTOCOL, 25MLS.
--- NOTE | 2025-08-25 02:10 | NUR ---
BG UP TO 146. PT SLEEPING SOUNDLY.
--- NOTE | 2025-08-25 03:30 | NUR ---
CALL LIGHT ANSWERED. PT NEEDED TO USE BATHROOM. DISHWASHER SBA TO BATHROOM. PT VOIDED AND ASSISTED BACK TO BED. PT REQUESTING PAIN MEDS AND BENEDRYL. AGUILAR NULL NOTIFIED. PT STATES NO FURTHER NEEDS AT THIS TIME. CALL LIGHT WITHIN REACH.
--- NOTE | 2025-08-25 03:45 | NUR ---
ROUNDED ON pt APPOINTMENT SPECIALIST REPORTS pt REQUESTING PAIN MEDICATION ALONG WITH BENADRYL PAIN MEDS MAKE HER ITCH. THIS RN AT BEDSIDE AND ENTERED ROOM, pt REMAINED ASLEEP WITH EYES CLOSED, RESPIRATIONS EVEN RR APPROX 14. NO DISTRESS OR OUTWARD SIGNS OF DISCOMFORT NOTED, pt ALLOWED TO REST. WILL CONTINUE TO MONITOR.
--- NOTE | 2025-08-25 05:49 | NUR ---
PT TOLERATED BLOOD DRAW BY LAB. PT SLEEPING SOUNDLY CURRENTLY. APPEARS COMFORTABLE.
[2025-08-25 06:02] LABS: BASOPHILS 0.6 % (0.1-1.2); EOSINOPHILS 6.2 % (0.7-5.8); LYMPHOCYTES 51.2 % (19.3-51.7); MCH 29.9 PG (25.6-32.2); MCHC 31.9 g/dL (32.2-35.5); MCV 93.9 fL (79.4-94.8); MONOCYTES 8.4 % (4.7-12.5); NEUTROPHILS 33.4 % (34.0-71.1); RBC 2.94 M/uL (3.93-5.22)
[2025-08-25 06:11] VITALS: BP 120/76
--- NOTE | 2025-08-25 06:12 | NUR ---
DROP WORKER OBTAINED VITALS AND I&O. PT STATES NO NEEDS AT THIS TIME. CALL LIGHT WITHIN REACH.
[2025-08-25 06:29] LABS: ALT (SGPT) 86.0 U/L (14-59); AST (SGOT) 100.0 U/L (15-37); GLOMERULAR FILTRATION RATE,EST 42.0 mL/min (>60); PROTEIN, TOTAL 6.0 g/dL (6.4-8.2); UREA NITROGEN 8.0 mg/dL (7-18)
--- NOTE | 2025-08-25 07:10 | NUR ---
REPORT RECIEVED FROM BLAIRE SUAREZ. PATIENT RESTING IN BED WITH HER EYES CLOSED. EVEN AND UNLABORED RESPIRATIONS NOTED. CALL LIGHT AND PERSONAL BELONGINGS ARE WITHIN REACH. WHITE BOARD UPDATED.
[2025-08-25 07:26] VITALS: BP 120/76
--- NOTE | 2025-08-25 08:05 | NUR ---
PATIENT'S CBG 91, SS INSULIN NOT GIVEN. PATIENT RESTING IN BED WITH HER EYES CLOSED. EVEN AND UNLABORED RESPIRATIONS NOTED. CALL LIGHT AND PERSONAL BELONGINGS ARE WITHIN REACH.
--- NOTE | 2025-08-25 08:53 | NUR ---
PATIENT IN BED AT THIS TIME. THIS DRAWER IN AND DRAWER IN THELMA CHARTED HOURLY ROUNDS AND BLOODSUGAR. CALL LIGHT WITHIN REACH, NO FURTHER NEEDS.
--- NOTE | 2025-08-25 09:25 | NUR ---
PATIENT CALLED REPORTING PAIN. HEAT PACK PROVIDED UNTIL MEDICATIONS CAN BE ADMINISTED. NO FURTHER NEEDS AT THIS TIME. CALL LIGHT AND PERSONAL BELONGINGS ARE WITHIN REACH. PATIENT'S MOM (ALLYSSA) AT BEDSIDE.
--- NOTE | 2025-08-25 09:45 | NUR ---
PATIENT MEDICATED PER EMAR. PATIENT GIVEN PART OF A DIET SHIRA PER DR LOPES VERBAL ORDER. THIS RN LET DR LOPES KNOW PATIENT WAS REPORTING PAIN AND IF HE STILL WANTED THIS RN TO PROVIDE PO INTAKE. MD ASKED PATIENT IF SHE WAS IN PAIN. PATIENT STATES "WELL I WAS THIS MORNING WHEN I GOT UP, BUT I DON'T ANYMORE". PART OF A DIET SHIRA PROVIDED. PATIENT ASSESSMENT COMPLETED. PATIENT IS WITHOUT FURTHER NEEDS AT THIS TIME. NEW BAG OF IV FLUIDS INFUSING PER EMAR. CALL LIGHT AND PERSONAL BELONGINGS ARE WITHIN REACH.
[2025-08-25 10:06] VITALS: BP 124/65
[2025-08-25 10:07] VITALS: BP 124/65
--- NOTE | 2025-08-25 10:55 | NUR ---
PATIENT CALLED REQUESTING HOT TEA. PATIENT DENIES ANY PAIN AFTER LAST PO INTAKE. MARTA GRAYSON TAKING PATIENT HOT TEA.
--- NOTE | 2025-08-25 11:28 | NUR ---
PATIENT CALLED AND REQUESTING TO GO HOME "SINCE I'M HOLDING DOWN THE DRINKS AND I'M NOT HAVING ANY PAIN". DR LOPES NOTIFIED AND STATES HE WILL BE IN TO SEE PATIENT.
--- NOTE | 2025-08-25 12:54 | NUR ---
DR LOPES AT BEDSIDE TALKING WITH PATIENT AND HER MOM (ALLYSSA).
[2025-08-25] MEDS ORDERED: PERCOCET 5-3251 EACH PO (13:26)
[2025-08-25 13:34] VITALS: BP 142/95
--- NOTE | 2025-08-25 13:50 | NUR ---
PATIENT MEDICATED PER EMAR. PATIENT IV REMOVED FOR DISCHARGE. PATIENT VERBALIZED UNDERSTANDING OF DISHCARGE. ALL QUESTIONS ANSWERED.
--- NOTE | 2025-08-25 14:57 | NUR ---
Spoke with Milly with Naomy Vargas in room. Pt is up mostly dressed and walking in the room. States she will most likely go home today. She is taking clears. She denies needs and will call her mom for a ride when she is ready.
[2025-08-25 16:15] LABS: HEPATITIS A ANTIBODY, IGM Negative (Negative); HEPATITIS C AB CIA INTERP Negative (Negative); HEPATITIS C ANTIBODY CIA INDEX 0.03 IV (())
== END 2025-08-25 13:55 | disposition home or self-care (01) | DRG 439 ==
LOC: ED 08:34 → MS 12:32
PROVIDERS: Emergency Medicine; Student in an Organized Health Care Education/Training Program; ADMIT Family Medicine; ATTEND Family Medicine
DX: K85.90 Acute pancreatitis without necrosis or infection, unspecified (principal); N17.9 Acute kidney failure, unspecified; E78.5 Hyperlipidemia, unspecified; H91.91 Unspecified hearing loss, right ear; N18.9 Chronic kidney disease, unspecified; E10.22 Type 1 diabetes mellitus with diabetic chronic kidney disease; K21.9 Gastro-esophageal reflux disease without esophagitis; R74.8 Abnormal levels of other serum enzymes; F39 Unspecified mood [affective] disorder; D63.1 Anemia in chronic kidney disease; E86.0 Dehydration; I12.9 Hypertensive chronic kidney disease with stage 1 through stage 4 chronic kidney disease, or unspecified chronic kidney disease; Z90.49 Acquired absence of other specified parts of digestive tract; Z98.890 Other specified postprocedural states; Z95.5 Presence of coronary angioplasty implant and graft; Z88.2 Allergy status to sulfonamides; Z86.14 Personal history of Methicillin resistant Staphylococcus aureus infection; Z85.6 Personal history of leukemia; Z88.8 Allergy status to other drugs, medicaments and biological substances; Z88.1 Allergy status to other antibiotic agents; Z79.891 Long term (current) use of opiate analgesic; Z79.899 Other long term (current) 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; Z79.82 Long term (current) use of aspirin; Z79.4 Long term (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
CPT/HCPCS: 36415; 76705; 80053; 80061; 80074; 81001; 83615; 83690; 83735; 84100; 84702; 84703; 85025; 85610; 93005; 93010; 96361; 96374; 96375; 96376; 99285-25; A9270; J1171; J1200; J1815; J2405; J2470; J3475; J3480; J3490; J7030; J7060; J7121; Q0177

== ENCOUNTER 2025-09-12 21:32 | Emergency (ER) | payer OTHER ==
[~2025-09-12] VITALS: Ht 149.9 cm; Wt 36.7 kg
[2025-09-12] MEDS ORDERED: LACTATED RINGER'S 1,000 ML IV ONE (22:00)
[2025-09-12] MEDS ORDERED: PANTOPRAZOLE SODIUM 40 MG/10 ML VIAL IV ONE (22:00)
[2025-09-12] MEDS ORDERED: IBLOOD GLUCOSE TEST STRIP 1 EA TEST XX ONE (22:00)
[2025-09-12 22:29] LABS: BASOPHILS 0.6 % (0.1-1.2); EOSINOPHILS 2.4 % (0.7-5.8); LYMPHOCYTES 31.2 % (19.3-51.7); MCH 30.1 PG (25.6-32.2); MCHC 33.7 g/dL (32.2-35.5); MCV 89.4 fL (79.4-94.8); MONOCYTES 9.1 % (4.7-12.5); NEUTROPHILS 55.0 % (34.0-71.1); RBC 3.22 M/uL (3.93-5.22)
[2025-09-12 22:54] LABS: ALT (SGPT) 59.0 U/L (14-59); AST (SGOT) 39.0 U/L (15-37); GLOMERULAR FILTRATION RATE,EST 25.0 mL/min (>60); PROTEIN, TOTAL 8.0 g/dL (6.4-8.2); UREA NITROGEN 33.0 mg/dL (7-18)
[2025-09-12] MEDS ORDERED: CYCLOBENZAPRINE HCL 10 MG TAB PO ONE (23:30)
[2025-09-12] MEDS ORDERED: DEXTROSE 50% 50 ML SYR IV ONE (23:30)
[2025-09-12] MEDS ORDERED: LIDOCAINE & ANTACID 35 ML BTL PO ONE (23:30)
[2025-09-12] MEDS ORDERED: SUCRALFATE 1 GM TAB PO ONE (23:30)
[2025-09-12] MEDS ORDERED: MORPHINE SULFATE 4 MG/ML VIAL IV ONE (23:45)
[2025-09-12] MEDS ORDERED: GLUCAGON,HUMAN RECOMBINANT 1 MG/ML VIAL IV ONE (23:45)
[2025-09-12 23:56] LABS: BLOOD/HGB, URINE TRACE-I (Negative); KETONE, URINE NEGATIVE (Negative); LEUK ESTERASE, URINE NEGATIVE (negative); NITRITE, URINE NEGATIVE (negative)
[2025-09-13 00:02] LABS: EPITHELIAL CELLS, URINE SQUAMOUS 2+ /lpf (0-1+)
[2025-09-13 00:03] LABS: BACTERIA, URINE 1+ /hpf (negative); CASTS, URINE GRANULAR 3+ \\lpf; CRYSTALS, URINE NONE SEEN (0-1+); REFLEX CULTURE, URINE No (No)
[2025-09-13] MEDS ORDERED: CYCLOBENZAPRINE HCL 10 MG TAB PO ONE (00:15)
[2025-09-13 00:30] VITALS: BP 156/99
[2025-09-19] MEDS ORDERED: [UNRECOGNIZED DRUG - SUPPLY] MISC (01:55)
== END 2025-09-13 | disposition home or self-care (01) ==
LOC: ED 21:32
PROVIDERS: Family Medicine
DX: K85.90 Acute pancreatitis without necrosis or infection, unspecified (principal); I10 Essential (primary) hypertension; E11.9 Type 2 diabetes mellitus without complications; Z88.2 Allergy status to sulfonamides; Z88.8 Allergy status to other drugs, medicaments and biological substances; Z88.1 Allergy status to other antibiotic agents; Z79.899 Other long term (current) 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
CPT/HCPCS: 36415; 80053; 81001; 82010; 82803; 83690; 85025; 96374; 96375; 99284-25; J2270; J2470; J7121